=== PATIENT | female | born 1950 | race Caucasian/White ===

== ENCOUNTER → 2019-12-23 12:00 | Outpatient (CLI) | payer MEDICARE, BC, SELFPAY ==
--- NOTE | 2019-12-23 15:54 | STRESSREP ---
Stress Test Report Stress test report: Resting EKG: Normal sinus rhythm, normal axis, normal intervals, subtle inferior ST segment flattening. Treadmill EKG: The patient exercised according to Elmo protocol for 2 minutes and 45 seconds achieving a maximum workload of 4.60 METS. The resting heart rate was initially 62 beats a minute and dina to maximum of 115 beats a minute which is 75% of the maximal age rate and heart rate. Resting blood pressure was 142/96, and dina to a maximum of 200/98. Test was terminated due to extreme tremors, dizziness, lightheadedness and dyspnea. During exercise the patient's heart rate increased as expected. The patient had subtle upsloping ST segment depression which did not appear to reach criteria for ischemia. No arrhythmias noted. Conclusions normal, submaximal, treadmill EKG. Negative for ischemia by EKG criteria. No anginal symptoms noted. No arrhythmias noted. Hypertensive blood pressure response to exercise. Poor exercise capacity for age. Patient tolerated procedure well. No complications.
== END ==
PROVIDERS: PCP Family Medicine; Referring Provider Family Medicine; Visit Provider Family Medicine
DX: R07.89 Other chest pain (principal)
CPT/HCPCS: 93017

== ENCOUNTER → 2022-01-30 12:38 | Outpatient (CLI) | payer MEDICARE, BC, SELFPAY ==
--- NOTE | 2022-01-30 15:49 | ST.MBS ---
Modified Barium Swallow - Patient Information Study Date: 01/30/22 Study Time: 13:00 Direct Billable Minutes: 95 Total Minutes procedure & reportin Diagnosis: Parkinson's disease (G20) Referring Physician: Ruby Chow Dr. Reason for Referral: Objectively assess swallow function, risk for aspiration, and determine recommendations for least restrictive diet textures and compensatory strategies to improve safety of swallow. Medical History: The patient is a 71 year old female with PMH history including Parkinson's (diagnosed ~3-4 years ago), Dyslipidemia, GERD without esophagitis, Hypertension (SEE H&P for full PMH). She also reports recent falls, which resulted in her hitting the back of her head without loss of consciousness. The patient had BSE completed at [facility] 01/16/2022 recommending MBS study to objectively assess swallow function and aspiraiton risk. She currently consumes soft solids and thin liquids with reports for choking/coughing episodes with solids, which at times has resulted in emesis. She has not required the Heimlich maneuver in the past. She consumes thin liquids with intermittent coughing, as well. The patient's sister, Moo, was present for evaluation. Current Diet Ordered: Soft solids / Thin liquids Dentition: Upper Dentures, Lower Dentures Mental Status: WNL Respiratory Status: Oxygenating on Room Air - Penetration-Aspiration Scale Penetration-Aspiration Scale: OBJECTIVE ASSESSMENT OF SWALLOW FUNCTION (QUANTITATIVE ? PER TRIAL): PENETRATION / ASPIRATION SCALE (HUTTON): 1 = does not enter airway 2 = enters airway/above vocal folds/ejected 3 = enters airway/above vocal folds/not ejected 4 = enters airway/contacts vocal folds/ejected 5 = enters airway/contacts vocal folds/not ejected 6 = enters airway/below vocal folds/ejected 7 = enters airway/below vocal folds/not ejected despite effort 8 = enters airway/below vocal folds/no effort VIDEOFLOROSCOPIC SCALE SCORE (HUTTON): Grade I = aspiration of material that has penetrated into the laryngeal vestibule, intact cough reflex Grade II = aspiration < 10 % of the bolus, intact cough reflex Grade III = aspiration of < 10 % of the bolus, reduced cough reflex or aspiration of > 10 % of the bolus, intact cough reflex Grade IV = aspiration of > 10 % of the bolus, reduced cough reflex - Penetration-Aspiration Scale Score Thin Liquid via teaspoon Result: 1= does not enter airway Thin Liquid via teaspoon Trial 2 Result: 1= does not enter airway Thin Liquid via sequential sips from cup Result: 1= does not enter airway [place] Thick Liquid via sequential sips from cup Result: 1= does not enter airway Honey Thick Liquid via small single sip from cup Result: 1= does not enter airway Pudding with esophageal screen Result: 1= does not enter airway Cookie Result: 1= does not enter airway Thin Liquid via single sip from straw Result: 5= enters airways/contacts vocal folds/not ejected Thin Liquid via sequential sips from straw Result: 5= enters airways/contacts vocal folds/not ejected Thin Liquid via small single sip from cup Result: 1= does not enter airway Thin Liquid via small single sip from cup Trial 2 Result: 1= does not enter airway - Oral Phase Labial Seal: No Labial Escape Tongue Control During Bolus Hold: Posterior escape of less than half of bolus Bolus Preparation/Mastication: Disorganized chewing/mashing with solid pieces of bolus unchewed Bolus Transport/Lingual Motion: Slowed tongue motion Oral Residue: Trace residue lining oral structures - Pharyngeal Phase Initiation of Pharyngeal Swallow: Bolus head in pyriforms Soft Palate Elevation: No bolus between soft palate and pharyngeal wall Laryngeal Elevation: Partial superior movement thyroid cart/partial apprx aryt-epig petiole Anterior Hyoid Excursion: Partial anterior movement Epiglottic Movement: Partial inversion Laryngeal Vestibule Closure at Height of Swallow: Incomplete; narrow column of air/contrast in laryngeal vestibule Pharyngeal Stripping Wave: Present - complete Pharyngoesophageal Segment Opening: Parital distension and partial duration; parital obstruction of flow Tongue Base Retraction: Wide column of contrast between tongue base & post. pharyngeal wall Pharyngeal Residue: Collection of residue within or on pharyngeal structures - Esophageal Phase Esophageal Clearance: Esophageal retention w/ retrograde flow below pharyngoesophageal seg. - Majority of the bolus cleared esophagus - min retention in upper esophagus with retrograde flow just below upper esophageal sphincter. - Diagnosis/Impression Diagnosis: Mild oropharyngeal phase dysphagia (R13.12) Impression: The oral phase is primarily marked by decreased mastication, decreased bolus control, and slowed A-P transport. She required prolonged mastication with posterior loss of cookie bolus to the vallecula. With certain trials of thin liquids, the pt demonstrated posterior loss of bolus to the pyriforms, resulting in suboptimal bolus placement upon swallow onset. The pharyngeal phase is primarily marked by decreased airway closure due to decreased laryngeal elevation and anterior hyoid excursion. She also has decreased tongue base retraction with resulting residue in the vallecula after the swallow. With sips via straw, the patient demonstrated laryngeal penetration of contrast to the vocal folds that did not fully eject. Although no aspiration was noted on the exam, the patient is at increased risk for post prandial aspiration of contrast remaining in the laryngeal vestibule. She also is at increased risk for choking and aspiration with solid textures due to impaired mastication. Min retention of contrast in the upper esophagus with retrograde flow below UES. Majority of bolus demonstrated timely esophageal clearance. - Recommendations Diet: Thin Liquids - Soft and Bite Size Textures (IDDSI Level 6) Compensatory Strategies: Small Bites, Small Sips, No Straws, Slow Rate - Sips one at a time, Sitting upright, Remain sitting upright for 30 minutes after PO intake, Minimize/decrease distractions - Wait to speak until after completing each bite/sip, Assist with verbal cues to use recommended strategies Recommend Repeat Modified Barium Swallow: TBD Need for Skilled Speech Therapy Services: Yes Comment: Will recommend the patient for outpatient dysphagia therapy to address deficits in oropharyngeal swallow function. Would consider the patient for oropharyngeal strengthening to improve mastication, tongue base retraction, laryngeal elevation, and hyoid excursion (Consider use of Silvina, tongue retraction, Felipe, effortful swallows, CTAR). The patient would benefit from thorough education regarding diet recommendations and recommended compensatory strategies. Education Completed: 1. Described result of evaluation. - Discussed results of the study via review of images and handout for soft and bite size textures testing and preparation. Education well received by pt's sister, Moo. The patient would benefit from continued education., 4. Family/caregivers understand evaluation & agree w/ goals & tx plan., 7. Pt requires further education on strategies & risks. - Status Active ST Patient: Active - Contact Information [facility] Speech Therapy:: Kathy Leung M.A. [facility] Speech-Language Pathologist [facility] [address] [place] [address] [email or web address] [phone] 01/30/22 16:17
== END ==
PROVIDERS: PCP Family Medicine
DX: R13.10 Dysphagia, unspecified (principal)
CPT/HCPCS: 74230; 92611

== ENCOUNTER 2022-03-28 13:00 | Outpatient (RCR) | payer MEDICARE, BC, SELFPAY ==
--- NOTE | 2022-01-16 15:24 | HP.SP.AD ---
History - History Date of Eval: 01/15/22 Medical Diagnosis (from RX): Parkinson's Disease Date of Onset of Diagnosis: 2013 Previous speech therapy: No Other Relevant Medical History/Diagnoses/Surgery: Depressive Disorder, Chronic Insomia, poor short term memory. Patient fell and hit her head twice April 2021 with no visit to the hospital. Medications related to this diagnosis: benztropine, gabapentin, aspirin, citalopram, omeprazole, rasagiline, simvastatin, valsartan Smoking Status: Never smoker Hx Smoking: No Hx Tobacco Use: No - Pain Is pain an issue with your current prescribed condition?: No - Personal Occupation: Retired Visual Assistive Devices: Glasses Patients Living Arrangements: Alone Patient Allergies - Allergies Allergies codeine Adverse Reaction (Verified 07/20/16 16:49) CRAZY DREAMS DOES NOT LIKE TO TAKE IT Subjective Oral Motor - Subjective Dentures ill fitting: No Objective Oral Motor - Oral Status Dentition: Upper Dentures, Lower Dentures - Labial Impairment: Mild Observation at Rest: WNL Closure: WNL Pucker: Mild Retraction: Mild Alternating Pucker/Retraction: Mild Involuntary Movement noted: No - Lingual Involuntary Movement: No - Lingual Comments Comments: Tongue deviates mild to the left. - Jaw Impairment: WNL Involuntary Movement: No - Respiratory Status Respiratory Status: Room Air Subjective Dysphagia - Symptoms Reported Symptoms/Problems with: Coughing, Choking, Difficulty Swallowing Solids, Difficulty Swallowing Liquids, Difficulty Swallowing Pills, Xerostomia - Current Diet Solids Current Diet: Soft - Current Diet Liquids Current Liquids: Thin Objective Dysphagia - Administered by Administered by: Self - Thin Liquids Administred via: Cup Symptoms: Throat Clearing, Immediate Oral Holding: No Patient Report: Patient reported on last drink of sequential drinks she felt like she needed to clear her throat. Later, she took another drink and cleared her throat several times. Comments: Patient reported that coughing is intermittent with liquids. - Results Swallowing Diagnosis: Dysphagia Unspecified Subjective Clinical Impression - Adult Clinical Impression Voice deterioration: reduction of volume or vocal quality with prolonged use: Present - Non-Phonatory Behaviors/Respiration Reduced loudness or vocal weakness: Present Limited breath support for speech: Present Plan - Plan Plan: Swallowing therapy is recommended due to dysphagia following Modified barium swallow study. - Recommendations MBS: Yes Treatment Warranted: Yes - Frequency Frequency: 1x/Week Duration: 2 Months Visits in this POC: 8 - Prognosis Prognosis: Good - Goals that are Established: Determination:: Goals will be added/modified as deemed necessary and appropriate. Therapy will be discontinued when results of re-evaluation indicate therapy is no longer needed or lack of progress has been documented. - Goal #1-5 Goal #1: The Patient will tolerate the least restrictive means of nutrition to facilitate adequate hydration/nutrition with optimum safety and efficiency of swallowing function during P.O. intake without overt signs and symptoms of aspiration. Goal #2: The Patient will demonstrate and utilize recommended velopharyngeal and oropharyngeal strengthening exercises to facilitate improved velopharyngeal and oropharyngeal strength and coordination with minimal cueing and prompting provide by the clinician, across 3 to 3 sessions. Goal #3: Voice/dysarthria evaluation. Education - Patient has Indicated that the Following Identified Educational Needs: Cognitively Impaired - Patient Instruction Patient Education: Diagnosis, Treatment Plan, Goals Person Taught: Patient, Family Teaching Method: Discussion Response to teaching: Verbalize understanding, Reinforcement needed
--- NOTE | 2022-06-19 14:44 | HP.SP.DC_ITS ---
ST Discharge Summary - Discharged: Discharge: Erika Sheffield is discharged from speech therapy at [facility] as of March 28, 2022. She was treated for a total of 10 visits with her initial evaluation on 01/15/22. The focus of therapy was on increasing vocal loudness and dysphagia treatment. She increased her vocal loudness to 67dB with no cues in conversation. This is a functional volume for the patient. She was aware that she needed to be louder in noisy situations. Patient was on thin liquids with small sips recommended. When she followed her strategies then she had no overt s/s of penetration or aspiration. The patient was provided with handouts and a home exercise program for both volume and swallowing exercises. Thank you for allowing me to participate in the treatment of this patient.
== END 2022-03-28 19:00 | disposition home or self-care (01) ==
LOC: SP 13:00
PROVIDERS: PCP Family Medicine
DX: R13.12 Dysphagia, oropharyngeal phase (principal); G20 Parkinson's disease
CPT/HCPCS: 92507; 92526; 92610

== ENCOUNTER 2023-01-29 12:00 | Outpatient (RCR) | payer MEDICARE, BC, SELFPAY ==
--- NOTE | 2023-01-01 12:40 | HP.PTEVAL_ITS ---
Patient's Visit Information PRASHANT HAYES is a 72 year old F referred to Physical Therapy by Dr. Brandan Manzo MD with a diagnosis of Parkinson's Disease. Date of Evaluation: 01/01/23 Physical Therapist: DORIAN Amezquita - Visit Plan Frequency: 2x /Week Duration: 2 Months Plan: 2X/ week for 8 weeks for gait training, balance activites, postural activities, Dual tasking, endurance activities, heel and toe raise strength, functional transfers with HEP - Subjective She has PD for the last 7-8 years. She feels that she has weakness from the knees down. She feels like her legs feel weak if she walks a little ways. She has been doing exercises twice a week at [facility]. Her sister is present with her. She has weakness in her legs and hands and her posture. She has had several falls within her apartment and has been managed to get up. She cracked her head the last time and layed there a little longer. She wants to get a Life alert. She turned around the corner and slipped in her sock feet about a week or so ago. She has a little trouble getting some commodes or a recliner. Somedays she can do well and other days not so good. She does drive still but limited distances. Sister reports that she has a slight stutter when turning. Bed positioning is a struggle. She has a lot of clutter in her home and sister is working on [employer]. Stomach was bothering her a little today. Her neck seems to be stiff daily. She has no steps into her apartment. She goes up the step recip stair at home with a railing and her sister watches with her. She pushes a cart in the grocery store. She has a script for a rollator but is being stubborn with getting that. She is starting some hallucinations of shadow people. - Objective Gait: walks with decrease stride length and short steppage gait, flexed trunk, no arm swing, no heel to toe gait pattern, and flexed knees. Standing heel and toe raises: Pt is unable to heel and toe rise without UE support. She struggles with toe raises. Pt struggles with walking with heel to toe gait pattern and walking backwards. LE MMT: R hip flex 7.7 and L hip flex 6.4. R knee ext 14.7 and L knee ext 16.7. R knee flex 11.5 and L knee flex 8.5. TU.3 seconds. FGA: 7. Sit to stand: Pt is able to stand without using her arms to stand on first attempt but she does not weight shift fw well. Tight heel cords, hamstrings and hip flexors. Pt is able to go from sit to supine and vice versa without any assistance - Balance/Special Test Scores Functional Gait Assessment Score: 7 % Disability: 76.6700 Lower Extremity Functional Score: 25 - Goals Goal 1:: I HEP Goal Time Frame: 6-8 Weeks Goal 2:: Decrease fall risk by increasing FGA score (score was 7 at eval). Goal Time Frame: 6-8 Weeks Goal 3:: Walk with more upright posture and more heel to toe gait pattern Goal Time Frame: 6-8 Weeks Goal 4:: Increase balance by decreasing TUG time (TUG time at the eval was 27.3 seconds) Goal Time Frame: 6-8 Weeks - Rehabilitation Potential Rehabilitation Potential: Good - Anticipated Interventions Patient/Client Instruction: Educate patient on: Condition, Plan of Care For the Purpose of:: To decrease pain, To increase ROM, To improve nutrient delivery to tissue, To improve muscle performance and motor function, To improve ability to perform ADL's, To increase tolerance to activity/condition/position, To improve performance and independence with ADL's, To decrease level of supervision to perform tasks, To improve gait and locomotor functions, To improve health of tissue, To decrease soft tissue restriction, To increase f lexibility/ROM, To improve endurance, To improve balance, To improve safety with gait Therapeutic Exercise to Include: Strength training, Endurance training, Balance training, Body mechanics, Postural training, Flexibilty training, Gait and locomotor training, Neuromotor development, Active ROM, Dynamic Lumbar Stabilization For the Purpose of:: To increase ROM, To improve nutrient delivery to tissue, To improve muscle performance and motor function, To improve ability to perform ADL's, To increase tolerance to activity/condition/position, To improve performance and independence with ADL's, To decrease level of supervision to perform tasks, To improve ability of physical actions for home/community/work/leisure, To improve gait and locomotor functions, To improve health of tissue, To decrease soft tissue restriction, To increase flexibility/ROM, To improve endurance, To improve balance, To improve safety with gait Functional Training to Include: Gait training For the Purpose of:: To improve gait and locomotor functions, To improve safety with gait Manual Therapy Techniques to Include: Passive ROM For the Purpose of:: To increase ROM Thank you for the opportunity to evaluate your patient. For Medicare and Medicare HMO plans, please review the plan of care and approve it. It will need to be FAXED BACK to us at [phone] for Medicare purposes. For Medicare only, by signing this I certify the plan of care. Please let me know if there are questions or concerns regarding this plan of care. Physician Signature: Date:
--- NOTE | 2023-01-29 13:06 | HP.PTDCSUM_ITS ---
It has been my pleasure to treat PRASHANT HAYES referred by Dr. Brandan Manzo MD, with the diagnosis of Parkinson's Disease for a total of 6 visit(s). Discharge Date: 01/29/23 Please see the following information for a summary of their discharge status. Subjective: Pt feels that therapy has helped in her walking and she reports that she is taking longer strides. She reports that she needs to stand up straighter. Sister feels that she can help her sister at home at this time % Improvement: 60 Objective/Function: FGA 9. Gait: walks with shuffled gait and does not take big steps. Would feel better if she would use the walker at all times especially when go out. VC's needed to take big steps. TUG 24.3 Goal 1:: I HEP Goal Progress: Progressing Goal 2:: Decrease fall risk by increasing FGA score (score was 7 at [facility]). Goal Progress: Goal Met Goal 3:: Walk with more upright posture and more heel to toe gait pattern Goal Progress: Progressing Goal 4:: Increase balance by decreasing TUG time (TUG time at the [facility] was 27.3 seconds) Goal Progress: Goal Met Plan: DC PT to I HEP and PD class elsewhere and sister will help with HEP and stretching at home Discharge Comments: DC PT to PD class elsewhere and sister to help at home with HEP If there are questions or concerns regarding this patient's physical therapy, please feel free to call me at [phone]. Thank you for the referral of this patient. Sincerely, Nicole Yanes, MPT Balance/Gait/Functional tests - Balance/Special Test Scores Functional Gait Assessment Score: 9 % Disability: 70.0000 Lower Extremity Functional Score: 43
== END 2023-01-29 19:00 | disposition home or self-care (01) ==
LOC: PT 12:00
PROVIDERS: PCP Family Medicine; Referring Provider Psychiatry & Neurology Neurology; Visit Provider Psychiatry & Neurology Neurology
DX: G20 Parkinson's disease (principal)
CPT/HCPCS: 97110; 97116; 97162; 97530

== ENCOUNTER 2023-07-28 09:29 | Emergency (ER) | payer MEDICARE, BC, SELFPAY ==
[2023-07-28 09:30] VITALS: BP 141/65; PULSE 63; RESP 16; TEMP 36.3; O2SAT 100
--- NOTE | 2023-07-28 09:54 | CT_ITS ---
INDICATION: Trauma EXAMINATION: CT CERVICAL SPINE - CT Spine Cervical W/O Contrast Injection TECHNIQUE: Helically acquired images were obtained of the cervical spine. 2D reformatted images were reviewed. A radiation dose optimization technique was used for this scan. IV Contrast dosage and agent: None. RADIATION DOSAGE (If Supplied By Facility): CTDIvol = ( 11.89 ) mGy, DLP = ( 245.67 ) mGycm COMPARISON: Prior study dated: MRA of the neck dated July 20, 2016 FINDINGS: VERTEBRAE: No fracture or traumatic subluxation. No discrete lytic or blastic abnormality. There is loss of the normal cervical lordosis. There is a retrolisthesis of C4 on C5 by 2.3 mm. There is multilevel endplate spondylosis and facet hypertrophy. Normal craniocervical junction and cervicothoracic junction. DISCS and SPINAL CANAL: There is multilevel degenerative disc disease associated with stenosis of the central canal at C4-C5 and C5-C6. NECK SOFT TISSUES: No prevertebral soft tissue swelling. There is no cervical adenopathy. LUNG APICES: Clear. CT/Spine Cervical without Contras IMPRESSION: Multilevel degenerative disc disease associated with stenosis of the central canal at C4-C5 and C5-C6. Electronically Signed: Grace Donohue MD at 10:56 EDT ,
--- NOTE | 2023-07-28 09:54 | CT_ITS ---
INDICATION: Trauma EXAMINATION: CT BRAIN - CT Head or Brain W/O Contrast Injection TECHNIQUE: Multiple axial images were obtained of the head without intravenous contrast. A radiation dose optimization technique was used for this scan. IV Contrast dosage and agent: None. RADIATION DOSAGE (If Supplied By Facility): CTDIvol = ( 44.99 ) mGy, DLP = ( 745.49 ) mGycm COMPARISON: Prior study dated: July 20, 2016 FINDINGS: BRAIN PARENCHYMA: No intra- or extra-axial hemorrhage. No evidence of acute infarct. No intracranial mass or mass effect. There is preservation of the fernandez/white matter interface. Posterior fossa structures are unremarkable. CSF SPACES: Appropriate for age. No hydrocephalus. Basal cisterns are patent. CALVARIUM, SKULL BASE, PARANASAL SINUSES AND MASTOID AIR CELLS: There is partial visualization of a low-attenuation focus within the visualized left maxillary sinus which may reflect a mucous retention cyst or polyp. No discrete lytic or blastic abnormalities. There are soft tissue defects overlying the left frontal calvarium consistent with lacerations from recent trauma. ORBITS: Both globes, extraocular muscles, optic nerves and retrobulbar fat appear unremarkable. ASPECTS Score for Acute Strokes: 10 CT/Brain/Head without Contrast IMPRESSION: No acute intracranial process. Electronically Signed: Grace Donohue MD at 10:42 EDT ,
--- NOTE | 2023-07-28 09:54 | EKG12_ITS ---
Test Reason : FALL Blood Pressure : / mmHG Vent. Rate : 063 BPM Atrial Rate : 063 BPM P-R Int : 106 ms QRS Dur : 084 ms QT Int : 414 ms P-R-T Axes : 067 063 054 degrees QTc Int : 423 ms Sinus rhythm with short MD Nonspecific T wave abnormality Abnormal ECG Confirmed by FRED MEDEROS, YASIR ([id number]), editor publications TAL JENKINS ([id number]) on 08/05/2023 7:30:10 AM Referred By: FALL Confirmed By:YASIR IBARRA MD
--- NOTE | 2023-07-28 09:57 | EDS_ITS ---
HPI HPI - Fall History of Present Illness Chief Complaint: Fall Informant: patient and family Narrative Narrative: Patient had a fall earlier this morning at home. Patient states she got up to go the bathroom. She fell walking in the bathroom. She states for the last year or so she has been having problems falling. This is her second fall in the last month or 2. She states she just seems to lose her balance and fall. She does have Parkinson's. This has been a slow progressive problem. They are trying to adjust medications. She feels at her baseline. Her family states she is normal right now. She did not pass out. She states the only spot that sore is the top of her head now. She is not on blood thinners except for baby aspirin. [facility] Medical History Parkinson disease Home Medications Omeprazole [Prilosec] 40 mg PO DAILY 07/20/16 [History Last Taken Unknown] benztropine 2 mg tablet 1 mg PO BID 07/20/16 [History Last Taken Unknown] citalopram 40 mg tablet 40 mg PO DAILY 07/20/16 [History Last Taken Unknown] diphenhydramine 25 mg-acetaminophen 500 mg tablet (Tylenol PM Extra Strength) 1 ea PO QHS PRN Sleep 07/20/16 [History Last Taken Unknown] losartan 100 mg tablet 100 mg PO DAILY 07/20/16 [History Last Taken Unknown] simvastatin 20 mg tablet 20 mg PO QHS 07/20/16 [History Last Taken Unknown] amoxicillin 500 mg-potassium clavulanate 125 mg tablet 500 mg (0.8 x 500-125 mg) PO Q12H ##10 07/21/16 [Rx Last Taken Unknown] aspirin 81 mg chewable tablet 81 mg PO DAILY@0800 07/21/16 [Rx Last Taken Unknown] cephalexin 500 mg capsule 500 mg PO TID #15 caps 07/28/23 [Rx Last Taken Unknown] Allergy/AdvReac Type Severity Reaction Status Date / Time codeine AdvReac ANALIY Verified 07/28/23 09:29 DREAMS DOES NOT LIKE TO TAKE IT Social History Smoking Status: Never smoker ROS ROS ED ROS Narrative A complete review of systems was performed and is negative except as documented in the history of present illness. Some specific details below. Constitutional: No recent fevers or chills. No malaise. She has been feeling normally recently. EYE: No discharge, visual complaints, or pain. ENT: Pain in the top of her head. She has a large laceration on her scalp. No active bleeding now. No difficulty swallowing. No swelling. No pain. No reflux symptoms. CV: No palpitations. No chest pain. She was not actually syncopal. She never passed out. Respiratory: No chest pain or shortness of breath. No coughing. GI: No abdominal pain. No nausea vomiting diarrhea. No blood in stool. : No frequency dysuria or hematuria. Musculoskeletal: Despite the fall, she states her arms and legs do not hurt. She has no neck back or pelvic area pain. Skin: Large laceration anterior scalp. Neuro: No focal weakness or numbness. Endocrine: No polyuria or polydipsia. EXAM Physical Exam Narrative Exam Narrative: CONSTITUTIONAL: Patient is nontoxic in appearance. The patient looks comfortable. Work of breathing looks normal. HEENT: Large curvilinear laceration on the anterior part of the scalp midline and curving towards the left. No active bleeding. EYES: No conjunctival injection. No proptosis. NECK:No JVD. No stridor. CARDIOVASCULAR: Regular rate. Regular rhythm. No notable murmur. No JVD. RESPIRATORY: No respiratory distress. Breathing is unlabored. No wheezes. No rhonchi. No rales. No pain with a deep breath. No chest wall tenderness. No subcu air. GASTROINTESTINAL: Not distended. Bowel sounds are normal. No tenderness. No guarding. No rebound. No palpable mass. No bruit is heard. GENITOURINARY: No tenderness over the bladder. No CVA tenderness. MUSCULOSKELETAL: Atraumatic except for minimal old bruising the anterior knees. But they are not tender.. No peripheral edema. No cord. No tenderness along the deep venous system. No asymmetry. No distended veins. NEUROLOGICAL: Patient is alert and appropriate. No focal deficit noted. SKIN: No rash or pallor. PSYCHIATRIC: Patient is calm. Mood is appropriate. Const Vital Signs: 07/28/23 09:30 07/28/23 12:38 Temperature 97.3 F L Temperature Source Temporal Pulse Rate 63 62 Respiratory Rate 16 15 Blood Pressure 141/65 H 124/77 H Blood Pressure Mean 90 Pulse Ox 100 98 Oxygen Delivery Method Room Air MDM MDM MDM Narrative Medical decision making narrative: Patient CBC shows mild anemia. Patient's electrolytes show no acute abnormalities. Minimal elevation of creatinine to 1.19. Glucose is minimally up at 108. My independent evaluation and interpretation of the patient T head neck showed no fracture or acute intracranial bleed. Final reading is similar but does show chronic changes. We got the patient up and walked. She did quite well. Her sister was going to stay with her for a few days. Procedure: Suture laceration: We cleansed the forehead and cleaned with alcohol. I did supraorbital nerve block that provided excellent anesthesia to the patient. Just the posterior aspect of the wound I had to touch. Total length of the wound was 12 cm. I copiously scrubbed and irrigated this area I lifted up the flap and scrubbed and irrigated under it. Ice and quite a bit of time pulling any hair clot or foreign material out. I found no actual foreign bodies but just a hair. But we irrigated and cleaned this multiple times and pulled the hair to the side till it got clean. I then put a single 4 oh stitch in the midpoint of this wound to hold it together in a line. I then p laced abe from each end. We used a total of 16 abe and the original stitch was removed. She tolerated this well and it was actually closed with good cosmesis and hemostasis. Because of the amount of tissue injury, size of the laceration, period of time being open I will place her on a short course of antibiotics and we discussed reasons to return and signs of infection. Lab Data Attestation: I reviewed the patient's lab results. Labs: Laboratory Results - last 24 hr 07/28/23 10:00 WBC 8.1 RBC 3.79 L Hgb 10.7 L Hct 34.0 L MCV 89.7 MCH 28.2 MCHC 31.5 L RDW Std Deviation 45.0 H RDW Coeff of Addie 13.7 Plt Count 234 MPV 11.1 Immature Gran % (Auto) 0.200 Neut % (Auto) 62.2 Lymph % (Auto) 26.0 Rhea % (Auto) 9.8 Eos % (Auto) 1.4 Baso % (Auto) 0.4 Absolute Neuts (auto) 5.0 Absolute Lymphs (auto) 2.09 Nucleated RBC % 0 Sodium 137 Potassium 4.0 Chloride 107 Carbon Dioxide 27.0 Anion Gap 3 L BUN 24 H Creatinine 1.19 H Est GFR (MDRD) Af Amer 57 L Est GFR (MDRD) Non-Af 47 L BUN/Creatinine Ratio 20.2 H Glucose 108 H Calcium 9.4 Radiography Diagnostic Testing: Clinical Impression(s) from Imaging Studies Brain CT 07/28/23 09:54 IMPRESSION: No acute intracranial process. Electronically Signed: Grace Donohue MD at 10:42 EDT , Cervical Spine CT 07/28/23 09:54 IMPRESSION: Multilevel degenerative disc disease associated with stenosis of the central canal at C4-C5 and C5-C6. Electronically Signed: Grace Donohue MD at 10:56 EDT , Discharge Plan Triage Chief Complaint: Fall ED Provider: Milton Iglesias Dx/Rx/DC Orders Clinical Impression: Sutured skin wound, Hx of Parkinson's disease, Fall at home, Complex laceration of scalp Instructions: ED Head Injury (Adult), ED Laceration Scalp Stitches or Abe Prescriptions: New cephalexin 500 mg capsule 500 mg PO TID Qty: 15 0RF No Action citalopram 40 MG tablet 40 mg PO DAILY Patient Comments: ANXIETY/DEPRESSION simvastatin 20 MG tablet 20 mg PO QHS Patient Comments: CHOLESTEROL benztropine 2 MG tablet 1 mg PO BID Patient Comments: PARKINSONS diphenhydramine-acetaminophen [Tylenol PM Extra Strength] 1 EACH tablet 1 ea PO QHS PRN (Reason: Sleep) Patient Comments: SLEEP losartan 100 MG tablet 100 mg PO DAILY Patient Comments: HYPERTENSION Omeprazole [Prilosec] 40 MG capsule 40 mg PO DAILY Patient Comments: GERD aspirin 81 MG tablet,chewable 81 mg PO DAILY@0800 0RF amoxicillin-pot clavulanate 500 MG tablet 500 mg PO Q12H Qty: 10 0RF Primary Care Provider: Ez Garcia Referrals: Ez Garcia MD [Primary Care Provider] - 7 Days for suture removal Disposition Disposition: Home, Self Care Discharge Date/Time: 07/28/23 12:39
[2023-07-28 10:10] LABS: Absolute Lymphocyte Count 2.09 X10^3/uL (0.83-4.51); Basophil# 0.03 X10^3/uL; Basophil% 0.4 % (0-1); Eosinophil# 0.11 X10^3/uL; Eosinophils% 1.4 % (0-5); Hemoglobin 10.7 g/dL (12.0-15.0); Lymphocyte # 2.09 X10^3/ul (0.83-4.51); Mean Corp Hgb Conc 31.5 g/dL (32-36); Mean Corpuscular Hgb 28.2 pg (27.0-32.0); Mean Corpuscular Volume 89.7 fL (81-99); Mean Platelet Vol. 11.1 fl (6.2-12.0); Monocyte# 0.79 X10^3/uL; Monocyte% 9.8 % (0-10); NRBC Flagged by Analyzer 0 % (0-5); Neutrophil # 5.01 X10^3/uL (2.7-7.7); Neutrophil % 62.2 % (47-70); Platelet Count 234 K/mm3 (150-450); RBC Distribution Width CV 13.7 % (11.6-14.6); Red Blood Count 3.79 M/mm3 (4.2-5.4); White Blood Count 8.1 K/mm3 (4.4-11.0)
[2023-07-28] MEDS: Lidocaine 1% /Epi 1:100 (20ml) 20 ML Vial INFILT (10:11)
[2023-07-28] MEDS: Bupivacaine Mpf 0.5% 30 ML VIAL INFILT (10:11)
[2023-07-28 10:29] LABS: Anion Gap 3 (5-15); BUN 24 mg/dL (7-18); BUN/Creat Ratio 20.2 RATIO (10-20); Calcium,Total 9.4 mg/dL (8.5-10.1); Chloride 107 mmol/L (98-107); Creatinine, Serum 1.19 mg/dL (0.55-1.02); EST Glomerular Filtration Rate 47 mL/min (>60); Est Glom Filt Rate - Afr Amer 57 mL/min (>60); Glucose 108 mg/dL (74-106); Sodium Level 137 mmol/L (136-145)
[2023-07-28 11:52] VITALS: O2SAT 98
--- NOTE | 2023-07-28 11:53 | ED.RN ---
pt has parkinsons, she shuffles when she walks.
[2023-07-28 12:38] VITALS: BP 124/77; PULSE 62; RESP 15; O2SAT 98; BMI 23.1
== END 2023-07-28 12:39 | disposition home or self-care (01) ==
PROVIDERS: Emergency Provider Emergency Medicine; PCP Family Medicine; Visit Provider Emergency Medicine
DX: S01.01XA Laceration without foreign body of scalp, initial encounter (principal); G20 Parkinson's disease; W19.XXXA Unspecified fall, initial encounter
CPT/HCPCS: 13121; 13122; 70450; 72125; 80048; 85025; 93005; 99284; A4216

== ENCOUNTER 2023-08-01 16:49 | Inpatient (IN) | payer MEDICARE, BC, SELFPAY ==
[2023-08-01] VITALS (9 sets, daily range): BP systolic 137–174; BP diastolic 66–90; PULSE 72–102; RESP 14–18; TEMP 36.1–37.3; O2SAT 96–100; BMI 24.8; BMI 25.0
--- NOTE | 2023-08-01 17:02 | CT_ITS ---
INDICATION: pain EXAMINATION: CT ABDOMEN AND PELVIS WITHOUT CONTRAST - CT Abdomen And Pelvis W/O Contrast Injection TECHNIQUE: Helically acquired images were obtained of the abdomen and pelvis without oral or IV contrast. A radiation dose optimization technique was used for this scan. IV Contrast dosage and agent: None. Oral contrast: None. RADIATION DOSAGE (If Supplied By Facility): CTDIvol = ( 6.44 ) mGy, DLP = ( 289.55 ) mGycm COMPARISON: No relevant prior comparison study available FINDINGS: LOWER CHEST: Lung bases are clear. No cardiomegaly or pericardial effusion. The lack of intravenous contrast limits evaluation of solid visceral organs. LIVER: Homogeneous. No focal mass. GALLBLADDER AND BILIARY TREE: No calcified gallstones. No gallbladder distension or wall edema. No intra- or extrahepatic biliary ductal dilation. PANCREAS: No focal cystic or solid mass. SPLEEN: Normal size without focal cystic or solid mass. ADRENAL GLANDS: No nodules. KIDNEYS AND URETERS: Normal renal size and position. No hydronephrosis. PERITONEUM: No ascites or free air. No other fluid collection. BOWEL: There is a moderate amount of stool throughout the colon. There appears to be swirling of the mesentery within the right lower abdomen. There is a dilated loop of bowel within the mid/lower abdomen that appears be arising from the right lower quadrant. There are prominent fluid-filled loops of bowel within the mid and lower abdomen. LYMPH NODES: No enlarged mesenteric or retroperitoneal lymph nodes. VESSELS: Aorta is non-dilated. URINARY BLADDER: Unremarkable. REPRODUCTIVE ORGANS: No pelvic masses. ABDOMINAL WALL: No discrete abdominal or pelvic wall hernia. BONES: There are degenerative changes of the lumbar spine. 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 Moderate amount of stool throughout the colon. Electronically Signed: Grace Donohue MD at 17:47 EDT ,
--- NOTE | 2023-08-01 17:03 | EDS_ITS ---
HPI History of Present Illness Chief Complaint: Nausea/Vomiting Informant: patient Narrative Narrative: -year-old sister generalized and abdominal pain vomiting since yesterday. No hematemesis. Total 4 times. No bowel movement for 5 days. Reports decreased flatus. Denies any abdominal surgery history. Was seen 5 days ago for mechanical fall scalp laceration with carmelina placed. No headache. Also started a new Parkinson's medicine of pramipexole on the second. Denies urinary symptoms. Denies fevers. Normal bowel movements daily versus every other day. [facility] Medical History Parkinson disease Home Medications benztropine 2 mg tablet 1 mg PO BID PARKINSONS 07/20/16 [History Last Taken 08/01/23] simvastatin 20 mg tablet 20 mg PO QHS CHOLESTEROL 07/20/16 [History Last Taken 07/31/23] cephalexin 500 mg capsule 500 mg PO TID ANTIBIOTIC #15 caps 07/28/23 [Rx Last Taken 07/31/23] alendronate 70 mg tablet 70 mg PO LEWIS OSTEOPEROSIS 08/01/23 [History Last Taken 07/28/23] aspirin 81 mg chewable tablet 81 mg PO DAILY HEART HEALTH 08/01/23 [History Last Taken 08/01/23] citalopram 10 mg tablet 10 mg PO DAILY DEPRESSION 08/01/23 [History Last Taken 08/01/23] citalopram 20 mg tablet 20 mg PO DAILY DEPRESSION 08/01/23 [History Last Taken 08/01/23] melatonin 5 mg tablet 10 mg PO QHS SLEEP 08/01/23 [History Last Taken 07/31/23] omeprazole 40 mg capsule,delayed release 40 mg PO DAILY ACID REFLUX 08/01/23 [History Last Taken 08/01/23] pramipexole 0.125 mg tablet 0.125 mg PO TID PARKINSONS 08/01/23 [History Last Taken 08/01/23] pramipexole 0.25 mg tablet 0.25 mg PO TID PAKINSONS 08/01/23 [History Last Taken Unknown] rasagiline 1 mg tablet 1 mg PO DAILY PARKINSONS 08/01/23 [History Last Taken 08/01/23] valsartan 160 mg tablet 160 mg PO DAILY BLOOD PRESSURE 08/01/23 [History Last Taken 08/01/23] Allergy/AdvReac Type Severity Reaction Status Date / Time codeine AdvReac CRAZY Verified 08/01/23 16:52 DREAMS DOES NOT LIKE TO TAKE IT Social History Smoking Status: Never smoker ROS ROS ED Constitutional Constitutional ED: Denies chills, fever(s) or sweats Eyes Eyes: Denies change in vision ENT ENT ED: Denies dysphagia or sore throat Cardiovascular Cardiovascular: Denies chest pain, leg edema, palpitations or racing heartbeat Respiratory/Chest Respiratory/Chest: Denies cough, dyspnea or dyspnea on exertion Gastrointestinal Gastrointestinal: Reports abdominal pain, constipation, nausea and vomiting; Denies diarrhea Genitourinary Genitourinary ED: Denies dysuria, hematuria or urinary frequency Musculoskeletal Musculoskeletal: Denies back pain, extremity pain or neck pain Integumentary Denies rash or wounds Neurologic Neurologic: Denies headache(s), paresthesias or weakness EXAM Physical Exam Const Vital Signs: 08/01/23 16:50 Temperature 96.9 F L Temperature Source Temporal Pulse Rate 78 Respiratory Rate 18 Blood Pressure 137/72 H Blood Pressure Mean 93 Pulse Ox 97 Oxygen Delivery Method Room Air Positive well nourished and well developed General Appearance ED: well developed and NAD HEENT HEENT Narrative: Mild dry mucosal membranes. Left frontal scalp with carmelina clean, dry, intact. normocephalic Eyes PERRL, EOMs intact bilaterally and conjunctivae normal General Eye ED: Yes normal appearance of both eyes Neck no lymphadenopathy and supple General: Negative for tenderness Chest Wall Chest: Negative for tenderness Resp normal respiratory effort and normal air movement Effort and Inspection: symmetric chest movement; Negative for respiratory distress Cardio regular rate, regular rhythm and no murmurs Peripheral Pulses: pulses 2+ throughout GI non-tender GI Narrative: Negative Kern's McBurney's tenderness. Nondistended. Auscultation: hypoactive bowel sounds Palpation: Negative for guarding or rebound tenderness present Back/Spine no CVA tenderness and no thoracic nor lumbar tenderness Extremity normal to inspection General Extremety ED: Negative for edema or tenderness General Extremity: Negative for edema Neuro oriented x3 and no sensory deficits noted Sensorium / Orientation: awake and alert Skin no rashes or lesions noted and no wounds MDM MDM MDM Narrative Medical decision making narrative: Interventions / MDM: Differential diagnosis: Bowel obstruction, volvulus Diagnosis considered but do not suspect: N/A My EKG interpretation: N/A Imaging independently reviewed and interpreted by myself: CT abdomen pelvis: Proximal obstruction, per radiology positive swirl sign concerning for cecal volvulus. KUB 1 view: NG in stomach. External documents reviewed: N/A Test considered but not ordered:N/A ED course: Patient nontoxic nonsurgical abdomen. Mild dry mucosal membranes with vomiting IV established abdominal labs ordered noncontrast CT scan with her vomiting and abdominal pain. Interim did evaluate her Parkinson's medication side effects does cause constipation. Normal labs stable white count 12.1. However CT scan with proximal bowel obstruction secondary to cecal volvulus concern. Coags added type and screen her last meal was this morning with small amount of cereal. 1800: I discussed with on-call surgeon Dr. Andre who evaluated the CT, request NG tube antibiotics to be started. Patient be seen in the surgery department by surgery for disposition. Patient seen by surgery, patient be taken to the OR from the emergency department. Re-evaluation: stable Disposition discussed with patient/family/significant other: Patient and sister Case discussed with consulting clinician: Surgeon This note was generated with [employer] dictation software. It may contain incorrect words, spelling, and punctuation that were not noted in checking the note before signing. Lab Data Attestation: I reviewed the patient's lab results. Labs: Laboratory Results - last 24 hr 08/01/23 08/01/23 17:10 18:14 WBC 12.1 H RBC 4.10 L Hgb 11.5 L Hct 36.4 L MCV 88.8 MCH 28.0 MCHC 31.6 L RDW Std Deviation 45.0 H RDW Coeff of Addie 13.8 Plt Count 261 MPV 11.4 Immature Gran % (Auto) 0.400 Neut % (Auto) 92.2 H Lymph % (Auto) 5.1 L [place] % (Auto) 2.1 Eos % (Auto) 0.0 Baso % (Auto) 0.2 Absolute Neuts (auto) 11.1 H Absolute Lymphs (auto) 0.61 L Nucleated RBC % 0 PT 14.0 INR 1.1 APTT 25.8 Sodium 136 Potassium 3.8 Chloride 105 Carbon Dioxide 25.0 Anion Gap 6 BUN 19 H Creatinine 1.14 H Est GFR (MDRD) Af Amer 60 Est GFR (MDRD) Non-Af 50 L BUN/Creatinine Ratio 16.7 Glucose 130 H Calcium 9.7 Total Bilirubin 0.50 AST 14 L ALT 25 Alkaline Phosphatase 79 Total Protein 7.5 Albumin 3.8 Globulin 3.7 Albumin/Globulin Ratio 1.0 Lipase 23 Radiography Diagnostic Testing: Clinical Impression(s) from Imaging Studies Abdomen/Pelvis CT 08/01/23 17:02 IMPRESSION: Dilated segment of bowel within the mid abdomen with associated swirling of the mesentery may be secondary to a cecal volvulus. Moderate amount of stool throughout the colon. Electronically Signed: Grace Donohue MD at 17:47 EDT , Discharge Plan Dx/Rx/DC Orders Clinical Impression: Cecal volvulus, Small bowel obstruction, Vomiting Disposition Disposition: Acute Care [facility]
[2023-08-01] MEDS: 0.9% Normal Saline (1000mL) 1,000 ML 1000 ML IV (17:11)
[2023-08-01] MEDS: Ondansetron 4 MG/2 ML Vial IV (17:13)
[2023-08-01 17:21] LABS: Absolute Lymphocyte Count 0.61 X10^3/uL (0.83-4.51); Absolute Neutrophil Count 11.1 X10^3/uL (2.0-7.7); Basophil# 0.02 X10^3/uL; Basophil% 0.2 % (0-1); Hematocrit 36.4 % (37-47); Hemoglobin 11.5 g/dL (12.0-15.0); Lymphocyte # 0.61 X10^3/ul (0.83-4.51); Lymphocyte % 5.1 % (19-41); Mean Corp Hgb Conc 31.6 g/dL (32-36); Mean Corpuscular Volume 88.8 fL (81-99); Mean Platelet Vol. 11.4 fl (6.2-12.0); Monocyte# 0.25 X10^3/uL; Monocyte% 2.1 % (0-10); NRBC Flagged by Analyzer 0 % (0-5); Neutrophil # 11.13 X10^3/uL (2.7-7.7); Neutrophil % 92.2 % (47-70); Platelet Count 261 K/mm3 (150-450); RBC Distribution Width CV 13.8 % (11.6-14.6); White Blood Count 12.1 K/mm3 (4.4-11.0)
[2023-08-01 17:39] LABS: AST(SGOT) 14 U/L (15-37); Alanine Aminotransfer ALT/SGPT 25 U/L (13-56); Albumin, Serum 3.8 g/dL (3.2-5.0); Alkaline Phosphatase 79 U/L (45-117); Anion Gap 6 (5-15); BUN 19 mg/dL (7-18); BUN/Creat Ratio 16.7 RATIO (10-20); Calcium,Total 9.7 mg/dL (8.5-10.1); Chloride 105 mmol/L (98-107); Creatinine, Serum 1.14 mg/dL (0.55-1.02); EST Glomerular Filtration Rate 50 mL/min (>60); Est Glom Filt Rate - Afr Amer 60 mL/min (>60); Globulin 3.7 g/dL (2.2-4.2); Glucose 130 mg/dL (74-106); Lipase 23 U/L (13-75); Potassium 3.8 mmol/L (3.5-5.1); Protein, Total 7.5 g/dL (6.4-8.2); Sodium Level 136 mmol/L (136-145)
--- NOTE | 2023-08-01 18:11 | PCM.HP.STD ---
HPI - General General Date of Service: 08/01/23 HPI Narrative PRASHANT HAYES, is a 73 F who presents due to abdominal pain and nausea vomiting today. Patient has a past medical history for Parkinson's and does mostly use a wheelchair and occasionally has issues with dysphagia and does not use a straw due to this and mostly just soft foods no issues with thin liquids though per patient and her sister who is with her in the ER. Patient was able to eat okay last night with no nausea no vomiting but did complain of some abdominal pain later at night. However today she was having nausea and vomiting only unable to keep food down. CT abdomen pelvis was consistent with a cecal volvulus. Patient is never had previous abdominal surgeries. Patient does currently live alone. Patient white blood count is 12.1. Patient was given Zosyn IV in the ER and also NG was placed as well as a Baig. Patient was recently in at the ER due to scalp laceration as she fell last Saturday, which was stapled. [facility] Medical History Parkinson disease Home Medications benztropine 2 mg tablet 1 mg PO BID PARKINSONS 07/20/16 [History Last Taken 08/01/23] simvastatin 20 mg tablet 20 mg PO QHS CHOLESTEROL 07/20/16 [History Last Taken 07/31/23] cephalexin 500 mg capsule 500 mg PO TID ANTIBIOTIC #15 caps 07/28/23 [Rx Last Taken 07/31/23] alendronate 70 mg tablet 70 mg PO LEWIS OSTEOPEROSIS 08/01/23 [History Last Taken 07/28/23] aspirin 81 mg chewable tablet 81 mg PO DAILY HEART HEALTH 08/01/23 [History Last Taken 08/01/23] citalopram 10 mg tablet 10 mg PO DAILY DEPRESSION 08/01/23 [History Last Taken 08/01/23] citalopram 20 mg tablet 20 mg PO DAILY DEPRESSION 08/01/23 [History Last Taken 08/01/23] melatonin 5 mg tablet 10 mg PO QHS SLEEP 08/01/23 [History Last Taken 07/31/23] omeprazole 40 mg capsule,delayed release 40 mg PO DAILY ACID REFLUX 08/01/23 [History Last Taken 08/01/23] pramipexole 0.125 mg tablet 0.125 mg PO TID PARKINSONS 08/01/23 [History Last Taken 08/01/23] pramipexole 0.25 mg tablet 0.25 mg PO TID parkinsons 08/01/23 [History Last Taken Unknown] rasagiline 1 mg tablet 1 mg PO DAILY PARKINSONS 08/01/23 [History Last Taken 08/01/23] valsartan 160 mg tablet 160 mg PO DAILY BLOOD PRESSURE 08/01/23 [History Last Taken 08/01/23] Allergy/AdvReac Type Severity Reaction Status Date / Time codeine AdvReac CRAZY Verified 08/01/23 16:52 DREAMS DOES NOT LIKE TO TAKE IT Social History Smoking Status: Never smoker Vital Signs Vital Signs Vital Signs: 08/01/23 16:50 Temperature 96.9 F L Temperature Source Temporal Pulse Rate 78 Respiratory Rate 18 Blood Pressure 137/72 H Blood Pressure Mean 93 Pulse Ox 97 Oxygen Delivery Method Room Air Physical Exam Narrative NG in place Const alert, oriented x3 and no apparent distress HEENT normocephalic HEENT Narrative: Frontal scalp with carmelina?fall last Saturday Resp normal respiratory effort Cardio regular rate GI soft to palpation; Negative for non-distended Palpation: tender other (Right mid abdomen, no peritoneal signs); Negative for guarding Extremity no clubbing, cyanosis or edema Neuro moves all extremities Psych mental status grossly normal Results Lab / Micro Data 08/01/23 17:10 08/01/23 17:10 Labs: Laboratory Results - last 24 hr 08/01/23 17:10: WBC 12.1 H, RBC 4.10 L, Hgb 11.5 L, Hct 36.4 L, MCV 88.8, MCH 28.0, MCHC 31.6 L, RDW Std Deviation 45.0 H, RDW Coeff of Addie 13.8, Plt Count 261, MPV 11.4, Immature Gran % (Auto) 0.400, Neut % (Auto) 92.2 H, Lymph % (Auto) 5.1 L, [place] % (Auto) 2.1, Eos % (Auto) 0.0, Baso % (Auto) 0.2, Absolute Neuts (auto) 11.1 H, Absolute Lymphs (auto) 0.61 L, Nucleated RBC % 0, Sodium 136, Potassium 3.8, Chloride 105, Carbon Dioxide 25.0, Anion Gap 6, BUN 19 H, Creatinine 1.14 H, Est GFR (MDRD) Af Amer 60, Est GFR (MDRD) Non-Af 50 L, BUN/Creatinine Ratio 16.7, Glucose 130 H, Calcium 9.7, Total Bilirubin 0.50, AST 14 L, ALT 25, Alkaline Phosphatase 79, Total Protein 7.5, Albumin 3.8, Globulin 3.7, Albumin/Globulin Ratio 1.0, Lipase 23 Radiology Impression Abdomen/Pelvis CT 08/01/23 17:02 IMPRESSION: Dilated segment of bowel within the mid abdomen with associated swirling of the mesentery may be secondary to a cecal volvulus. Moderate amount of stool throughout the colon. Electronically Signed: Grace Donohue MD at 17:47 EDT , Assessment & Plan Assessment/Plan (1) Cecal volvulus: PLAN: Plan Plan for exploratory laparotomy, bowel resection due to cecal volvulus. Discuss and reviewed CT abdomen pelvis personally and with the patient and her sister. Discussed the procedure including but not limited to risk of bleeding, infection, injury to another organ, and anesthesia. Patient and her sister had no further question this time. Did discuss with patient and her sister that requested full code-- intubation and CPR Esme Andre M.D. Pager: [phone] [facility] [address] [place] [address], [facility], [address] [place] [address] Office: [phone]
[2023-08-01] MEDS: Oxymetazoline 0.05% 1 SPRAY SPRAY.BTL 2 SPRAY NASAL (18:27)
--- NOTE | 2023-08-01 18:30 | RAD_ITS ---
INDICATION: NG Insertion EXAMINATION/TECHNIQUE: X-RAY - XR Abdomen 1 View COMPARISON: CT abdomen and pelvis from the same day. FINDINGS: A single frontal view of the upper abdomen was obtained. The tip of the NG tube projects over the body of the stomach. Dilated loops of small bowel are identified as on the prior exam. No gross free air identified. RAD/Abdomen Single View (Portable) IMPRESSION: Tip of the NG tube projects over the body of the stomach. Electronically Signed: Rohith Falcon MD at 19:08 EDT ,
[2023-08-01 18:34] LABS: International Normalized Ratio 1.1; Partial Thromboplast Time 25.8 Seconds (24.1-36.2)
[2023-08-01] MEDS: Piperacil/Tazobactam 3.375 GM in 0.9% Normal Saline (50mL MB+) 50 ML IV (18:37)
--- NOTE | 2023-08-01 19:45 | COL_PTH ---
PATIENT: PRASHANT HAYES LOC: MS3 U#:[id number] AGE/SX: 73/F [place] [facility] [place]08/01/[address]: Dr. Esme Andre MD : 1950 BED: 1 DIS: 08/06/2023 SPEC #: [id number] RECD: 08/02/23 10:20 STATUS: ADRIANA REBan #: [id number] SETH: 08/01/23 19:[address]: Esme Andre DEPT: SURGICAL PATHOLOGY RECD BY: Sarika Parham ENTERED: 08/02/23 11:35 SP TYPE: COLON OTHR DR: Dr. Ez Garcia MD Tissues: Colon, NOS Procedures: Surgery Specimen Level V HEADER OPERATION: Right hemicolectomy PRE-OP DIAGNOSIS: Cecal volvulus TISSUE SUBMITTED: Right colon MICROSCOPIC DIAGNOSIS Right colon, right hemicolectomy: Attenuative large bowel segment consistent with volvulus. Appendix with fibrofatty obliteration of lumen. Three out of three lymph nodes with no pathologic change. Omentum with vascular congestion. AM:april 08/06/2023 MICROSCOPIC DESCRIPTION Slides are reviewed. GROSS DESCRIPTION Received in fixative is one container labeled with the patient's name and designated right colon. The specimen consists of a right hemicolectomy specimen consisting of cecum with ascending colon, portion of transverse colon, small intestine and appendix with attached pericolonic adipose tissue and mesenteric tissue. The cecum with ascending colon and transverse colon measures 34.0 cm in length. The small intestine measures 8.0 cm in length and appendix measures 4.5 cm in length and 0.3 cm in diameter. The cecum is dilated and measures up to 10.0 cm in diameter and the rest of the colon measures 4.0 to 5.0 cm in diameter. Both resections margins are stapled. The lumen contains predominantly liquified fecal material and a focal area of solid material. The mucosal folds are markedly flattened in the cecal area and decreased in the ascending colon and transverse colon. No mucosal lesion is identified. Attached portion of omentum measures 10.0 x 4.0 x 0.5 cm. Also present in the container is a donut-shaped piece of tissue measuring 3.5 x 1.0 x 0.7 cm. Two smaller donut-shaped pieces of tissue are also noted measuring 1.0 x 0.5 x 0.5 cm and 1.5 x 0.7 x 0.5 cm. Multiple carmelina are noted in these pieces. More dictation will follow after fixation. / SJ:april 08/02/2023 Sections of pericolonic adipose tissue does not reveal any obviously enlarged lymph node. Sections of the appendix reveal almost obliterated lumen. Sections of omentum do not reveal any mass lesion. Repair Service Dispatcher sections are submitted in seven cassettes as follows: 1 - detached donut-shaped pieces of tissue, 2 - proximal and distal resection margin, 3 - appendix, 4 - dilated segment of cecum, 5??ileocecal valve, 6 - pericolonic adipose tissue with possible lymph node, 7??omentum. / SJ:april 08/05/2023 TC:5 CPT: 37860
--- NOTE | 2023-08-01 19:52 | EKG12_ITS ---
Test Reason : ARHYTHMIA Blood Pressure : / mmHG Vent. Rate : 077 BPM Atrial Rate : 077 BPM P-R Int : 130 ms QRS Dur : 090 ms QT Int : 522 ms P-R-T Axes : 072 075 082 degrees QTc Int : 590 ms Normal sinus rhythm Nonspecific T wave abnormality Abnormal ECG When compared with ECG of 28-JUL-2023 10:42, MANUAL COMPARISON REQUIRED, DATA IS UNCONFIRMED Confirmed by FRED MEDEROS, YASIR ([id number]), editor house organ TAL JENKINS ([id number]) on 09/03/2023 1:19:41 PM Referred By: Esme Andre Confirmed By:YASIR IBARRA MD
[2023-08-01 19:54] LABS: Bacteria 0 SEEN /hpf (None Seen); Color, Urine Yellow (Yellow); Glucose, Dipstick Normal (Normal); Ketone-Dipstick 15 mg/dl (Negative); Leukocyte Esterase-Dipstick Negative /ul (Negative); Nitrite-Dipstick Negative (Negative); Occult Blood-Urine Negative /ul (Negative); Protein-Dipstick 15 mg/dl (Negative); Red Blood Cells-Urine 0 SEEN /hpf (0-5); Urine Bilirubin Dipstick Negative (Negative); Urine Clarity Clear (Clear); Urine Urobilinogen Normal (Normal); White Blood Cells 0 SEEN /hpf (0-5)
[2023-08-01 20:00] LABS: Mucous, Urine 1+ /hpf (<or=2+); Squamous Epithelial Cells - UA 0-5 SEEN /hpf (5-10)
--- NOTE | 2023-08-01 21:16 | OP.PCM_ITS ---
Report of Operation Date of Procedure: 08/01/23 Pre-Operative Diagnosis: Cecal volvulus Post-Operative Diagnosis: Same Surgery/Procedure Performed:: Open right hemicolectomy Surgeon: Esme Andre high value associate: Shantel Daniels Type of Anesthesia: General/Supplemental Anesthesiologist: Perry Rosenberg Special Medications: Zosyn 3.375 g IV x1 Specimen's removed: Right hemicolectomy Estimated Blood Loss (mL): 20 Fluids Replaced: Per anesthesia Description of Procedure: Patient was brought to the operating placed spinal operating table. Timeout was completed verifying correct patient, procedure, site, positioning, special, prior to beginning procedure. General anesthesia was induced. Abdomen was prepped and draped in usual sterile fashion with chlorhexidine. Midline incision was made with a 10 blade scalpel and deepened to the fascia with electrocautery. Fascia was elevated and incised into the abdomen was direct visualization. No injury was noted upon entering the abdomen. An extra- large wound protector was placed. There is noted to have a cecal volvulus with distended cecum and small bowel. The white line of Toldt was incised freeing the cecum from the ascending colon. The hepatic flexure was also mobilized. The LigaSure impact was used to divide the mesentery. Ileocolic artery was tied with 0 silk suture. CATRACHITO-75 stapler was used to divide the ileum as well as the transverse colon. Specimen was passed off and sent to pathology. The 2 ends of the the ileum and transverse colon were anastomosed with CATRACHITO 75 stapler after enterotomies were made in that the antimesenteric border of small bowel and tinea of colon. A TX 60 was used to close the enterotomy. Anastomosis was patent. Interrupted 3-0 silk sutures were placed due to bleeding at the staple line and as a crotch stitch. Abdomen was irrigated with saline and suction. No attempt was made to close the mesentery. The fascia was closed with running 1 PDS. Incision was closed 3-0 Vicryl subdermal sutures and 4-0 Monocryl on the skin. OpSite was placed. Patient was extubated. Patient tolerated procedure well was taken to the postanesthesia care unit in stable condition. Complications none
[2023-08-01] MEDS: Bupivacaine 0.25% 30 ML Vial (21:18)
[2023-08-01] MEDS: Lactated Ringers 1,000 ML 120 ML IV (22:21)
[2023-08-01] MEDS: Morphine 2 MG/ML Syringe IV (23:23)
[2023-08-01] MEDS: Pantoprazole Sodium 40 MG in 0.9% Normal Saline (100mL MB+) 100 ML 330 MG IV (23:25)
[2023-08-02] MEDS: Benztropine 2 MG Tablet 1 MG GT ×3 (00:03→20:44)
[2023-08-02] MEDS: MELATONIN 10 MG TABLET GT ×2 (00:06→20:44)
[2023-08-02] MEDS: Pramipexole Di-HCl 0.125 MG Tablet GT ×4 (00:06→20:48)
[2023-08-02] MEDS: Morphine 2 MG/ML Syringe IV ×4 (01:31→08:16)
[2023-08-02 01:36] VITALS: BP 155/64; PULSE 95; RESP 16; TEMP 37.2; O2SAT 98
[2023-08-02 03:44] VITALS: BP 146/56; PULSE 95; RESP 16; TEMP 37.2; O2SAT 97
[2023-08-02] MEDS: Lactated Ringers 1,000 ML 120 ML IV ×2 (06:36→14:29)
[2023-08-02 07:30] LABS: Absolute Lymphocyte Count 0.67 X10^3/uL (0.83-4.51); Absolute Neutrophil Count 13.5 X10^3/uL (2.0-7.7); Basophil# 0.02 X10^3/uL; Basophil% 0.1 % (0-1); Hematocrit 33.2 % (37-47); Hemoglobin 10.3 g/dL (12.0-15.0); Lymphocyte # 0.67 X10^3/ul (0.83-4.51); Lymphocyte % 4.5 % (19-41); Mean Corpuscular Hgb 28.5 pg (27.0-32.0); Mean Corpuscular Volume 91.7 fL (81-99); Mean Platelet Vol. 11.8 fl (6.2-12.0); Monocyte# 0.69 X10^3/uL; Monocyte% 4.6 % (0-10); NRBC Flagged by Analyzer 0 % (0-5); Neutrophil # 13.49 X10^3/uL (2.7-7.7); Neutrophil % 90.4 % (47-70); Platelet Count 249 K/mm3 (150-450); RBC Distribution Width SD 47.4 fl (35.1-43.9); Red Blood Count 3.62 M/mm3 (4.2-5.4); White Blood Count 14.9 K/mm3 (4.4-11.0)
[2023-08-02 07:44] VITALS: BP 121/65; PULSE 82; RESP 18; TEMP 37.3; O2SAT 95
[2023-08-02 08:03] LABS: Anion Gap 3 (5-15); BUN 20 mg/dL (7-18); Calcium,Total 8.5 mg/dL (8.5-10.1); Chloride 110 mmol/L (98-107); Creatinine, Serum 1.05 mg/dL (0.55-1.02); EST Glomerular Filtration Rate 55 mL/min (>60); Est Glom Filt Rate - Afr Amer 66 mL/min (>60); Glucose 131 mg/dL (74-106); Potassium 4.3 mmol/L (3.5-5.1); Sodium Level 140 mmol/L (136-145)
--- NOTE | 2023-08-02 08:13 | PN.SURG_ITS ---
Subjective Subjective Patient has minimal out of NG, denies flatus, incision dressed clean dry and intact Objective Data Objective Data Vital Signs: Vital Signs Temp Pulse Resp BP Pulse Ox O2 Del Method O2 Flow Rate 99.1 F 82 18 121/65 H 95 Nasal Cannula 2 08/02/23 07:44 08/02/23 07:44 08/02/23 07:44 08/02/23 07:44 08/02/23 07:44 08/02/23 07:44 08/02/23 07:44 Oxygen Flow Rate (L/min) 2 Oxygen Delivery Method Nasal Cannula Weight: 137 lb 3.2 oz Body Mass Index (BMI) 25.0 Intake & Output: Intake and Output for Last 24 Hours 07/31/23 08/01/23 08/02/23 23:59 23:59 23:59 Intake Total 1220 / 1220 1110 / 1110 Output Total 200 / 400 500 / 500 Balance 1020 / 820 610 / 610 Lab / Micro Data 08/02/23 06:35 08/02/23 06:35 Labs: Laboratory Results - last 24 hr 08/01/23 17:10: WBC 12.1 H, RBC 4.10 L, Hgb 11.5 L, Hct 36.4 L, MCV 88.8, MCH 28.0, MCHC 31.6 L, RDW Std Deviation 45.0 H, RDW Coeff of Addie 13.8, Plt Count 261, MPV 11.4, Immature Gran % (Auto) 0.400, Neut % (Auto) 92.2 H, Lymph % (Auto) 5.1 L, Burnet % (Auto) 2.1, Eos % (Auto) 0.0, Baso % (Auto) 0.2, Absolute Neuts (auto) 11.1 H, Absolute Lymphs (auto) 0.61 L, Nucleated RBC % 0, Sodium 136, Potassium 3.8, Chloride 105, Carbon Dioxide 25.0, Anion Gap 6, BUN 19 H, Creatinine 1.14 H, Est GFR (MDRD) Af Amer 60, Est GFR (MDRD) Non-Af 50 L, BUN/Creatinine Ratio 16.7, Glucose 130 H, Calcium 9.7, Total Bilirubin 0.50, AST 14 L, ALT 25, Alkaline Phosphatase 79, Total Protein 7.5, Albumin 3.8, Globulin 3.7, Albumin/Globulin Ratio 1.0, Lipase 23 08/01/23 18:14: PT 14.0, INR 1.1, APTT 25.8, Blood Type O NEGATIVE, Antibody Screen NEGATIVE 08/01/23 19:30: Urine Color Yellow, Urine Clarity Clear, Urine pH 5.0, Ur Specific [place] 1.020, Urine Protein 15 H, Urine Glucose (UA) Normal, Urine Ketones 15 H, Urine Occult Blood Negative, Urine Nitrite Negative, Urine Bilirubin Negative, Urine Urobilinogen Normal, Ur Leukocyte Esterase Negative, Urine RBC 0 SEEN, Urine WBC 0 SEEN, Ur Squamous Epith Cells 0-5 SEEN, Urine Bacteria 0 SEEN, Urine Mucus 1+ 08/02/23 06:35: WBC 14.9 H, RBC 3.62 L, Hgb 10.3 L, Hct 33.2 L, MCV 91.7, MCH 28.5, MCHC 31.0 L, RDW Std Deviation 47.4 H, RDW Coeff of Addie 14.0, Plt Count 249, MPV 11.8, Immature Gran % (Auto) 0.400, Neut % (Auto) 90.4 H, Lymph % (Auto) 4.5 L, Burnet % (Auto) 4.6, Eos % (Auto) 0.0, Baso % (Auto) 0.1, Absolute Neuts (auto) 13.5 H, Absolute Lymphs (auto) 0.67 L, Nucleated RBC % 0, Sodium 140, Potassium 4.3, Chloride 110 H, Carbon Dioxide 27.0, Anion Gap 3 L, BUN 20 H , Creatinine 1.05 H, Estim Creat Clear Calc 38.30, Est GFR (MDRD) Af Amer 66, Est GFR (MDRD) Non-Af 55 L, BUN/Creatinine Ratio 19.0, Glucose 131 H, Calcium 8.5 Radiography Diagnostic Testing: Radiology Impression Abdomen/Pelvis CT 08/01/23 17:02 IMPRESSION: Dilated segment of bowel within the mid abdomen with associated swirling of the mesentery may be secondary to a cecal volvulus. Moderate amount of stool throughout the colon. Electronically Signed: Grace Donohue MD at 17:47 EDT , KUB X-Ray 08/01/23 18:30 IMPRESSION: Tip of the NG tube projects over the body of the stomach. Electronically Signed: Rohith Falcon MD at 19:08 EDT , Physical Exam Resp normal respiratory effort Cardio regular rate GI GI Narrative: Abdomen: Soft, nondistended, tender near incision's dressed clean dry and intact, no peritoneal signs Assessment & Plan Assessment/Plan (1) S/P right hemicolectomy: (2) Cecal volvulus: PLAN: Plan POD#1 We will check NG after being clamped for 4 hours if not much residual will remove and keep patient n.p.o. until she begins to have flatus. Patient did have some element of constipation with hard stools throughout her colon during surgery. Continue pain control Recommend out of bed to chair, due to Parkinson's patient is mostly in a wheelchair per family PT /OT due to history of Parkinson's and also recent history of falls patient may need placement as patient will family reports looking into possible assisted living just prior to this hospitalization as she came into the ER on Saturday and had a large scalp lack that had to be stapled. Scalp carmelina to be removed on next Saturday-Per family Dr. Olson will be covering for me as I will be gone next week. Esme Andre M.D. Pager: [phone] [facility] [address] [place] [address], [address] [place] [address] Office: [phone]
[2023-08-02] MEDS: Citalopram 10 MG Tablet 30 MG GT (10:00)
[2023-08-02] MEDS: Pantoprazole Sodium 40 MG in 0.9% Normal Saline (100mL MB+) 100 ML 330 MG IV (10:02)
[2023-08-02] MEDS: Losartan Potassium 50 MG Tablet GT (10:02)
[2023-08-02] MEDS: Acetaminophen 650 MG/20 ML UDC 1000 MG PO ×2 (11:00→18:33)
--- NOTE | 2023-08-02 11:25 | CASEMGMT ---
Addendum entered by Marlene Sandoval 08/02/23 12:43: ALICE SINGH back into pt room per family request. Pt sister Moo present. They have decided on [facility] Rehab unit. Updated SW. Pt and family deny further needs at this time. Original Note: RN SAMANTHA Assessment: Face to Face with pt for initial transition planning/care coordination assessment. RN SAMANTHA introduced self and role at [facility], pt voices understanding and consents to assessment. Pt is A/O x4 and answers all questions appropriately at this time. Pt sitting in chair with NG in with sister Kim at bedside. Care providers, pharmacy, and demographics verified/updated. Admitting Dx: cecal volvulus PCP:Radha Specialists:[facility]ayna Vidales neuro in [place] Preferred Pharmacy: [facility] Insurance: Rivera OSORIO Prescription Benefit: yes LNOK: Moo Ramires, sister; Hillary Simpson, brother Living Arrangements: Pt lives alone in a ground level apt with no steps to enter. Pt reports she had been I in [place]'s a few weeks ago but 5 days ago fell at home and suffered a scalp laceration. She states she does not like to cook so she eats quick items. Her son is a physician in [place] and sends prepared meals for her. Pt gets groceries with her sister and does her own laundry. Pt states she is aware that she cannot return home as it is unsafe and they have been looking into ALs. Pt has toured [facility] and they have a call out to [facility]. Transportation: Pt reports she recently did not pass the test to continue driving. Pt states her sister transports her to medical appts. DME/HHC/SNF: Pt has 3 walkers, shower seat and grab bars that need installed. Pt denies hx of HHC or SNF stays. Pt states she has come to the realization that she cannot go back home. Discussed all options including HHC, SNF and AL. Discussed SNF with possible transition to AL as pt is assist x2 with FWW. Also discussed the possibility of rehab unit. Provided list of Rehab units created by dc payroll administrative assistant and asked dc payroll administrative assistant to provide pt with SNF list. Pt sister Moo will be coming in this afternoon. Pt to ask for CM to have discussion with family. Pt states this is overwhelming for her as she was I prior. Pt states no further concerns/needs. CM to follow. Advised pt to ask CM if any further question/concerns/needs arise, voices understanding. Pt Goal: TBD Plan: TBD, likely SNF vs Rehab unit
--- NOTE | 2023-08-02 12:03 | CASEMGMT ---
Discharge Planning A list of SNF) providers including quality and resource use data and consistent with the patient?s preferred geographic region, medical needs, and insurance network were printed and provided from the [facility] Guide. Marietta Bucio, Discharge Planning Asst.
--- NOTE | 2023-08-02 12:05 | CASEMGMT ---
Marietta Bucio, Discharge Planning Asst. A list of acute rehab unit providers including quality and resource use data and consistent with the patient?s preferred geographic region, medical needs, and insurance network was created in [facility] Guide. This list was provided to the RN SAMANTHA. Marietta Bucio, Discharge Planning Asst.
[2023-08-02 12:19] VITALS: BP 105/58; PULSE 74; RESP 18; TEMP 37.2; O2SAT 95
[2023-08-02] MEDS: 0.9% Normal Saline (500mL Bag) 500 ML IV (12:55)
--- NOTE | 2023-08-02 13:08 | CASEMGMT ---
Social Work Collaboration with Marlene JENKINS CM, regarding patient's discharge plan. Anticipate need for short term rehab at discharge with first choice of [facility]. Marlene chavira patient and sisters also have questions about assisted living. Both SNF and RU choice lists provided to patient/family today. This check writer salesperson met with patient and patient's 2 sisters. Inquired about next choice, should [facility] not work out. Next choice is [facility]. After that, the patient and family are uncertain and have to further consider the lists provided today. This check writer salesperson inquired whether patient/family had questions about assisted living. The sister Moo chavira has toured some facilities, but really uncertain about specifics like cost, what care can be provided, etc. Patient dozing off at this point in conversations, so this check writer salesperson offered for SW to come back at a later time to answer questions as able. Patient expressed appreciation, as wants to be awake for discussion. During conversation, patient reminiscent about living [place], working with an [employer] for years. Has been back to [place] for the last 7 years, after receiving Parkinson diagnosis. Emotional support, and supportive listening offered. Message to Isabel in admissions for [facility] and [facility]. No discharge timeframe yet known. Anticipate patient's care need to extend through the weekend timeframe. Plan: Referrals pending at [facility] and [facility]. If unable to accept, will need to get an alternate choice for aftercare. SW to follow and assist. -SANDRA Cordero
[2023-08-02 14:48] VITALS: O2SAT 95
[2023-08-02 19:48] VITALS: BP 125/67; PULSE 82; RESP 18; TEMP 36.8; O2SAT 95
[2023-08-02] MEDS: oxyCODONE 5 MG Tablet PO (20:48)
[2023-08-03] MEDS: Acetaminophen 650 MG/20 ML UDC 1000 MG PO ×4 (00:26→18:32)
[2023-08-03 00:50] VITALS: BP 136/75; PULSE 89; RESP 16; TEMP 37.1; O2SAT 96
[2023-08-03] MEDS: Ondansetron 4 MG/2 ML Vial IV (01:14)
[2023-08-03] MEDS: Morphine 2 MG/ML Syringe IV (01:14)
[2023-08-03] MEDS: BENZOCAINE/MENTHOL 1 LOZENGE MUCOUS MEM (01:30)
[2023-08-03] MEDS: Lactated Ringers 1,000 ML 120 ML IV (01:31)
--- NOTE | 2023-08-03 08:59 | PCM.PN.SRG ---
Subjective Subjective Patient is not passing flatus yet. Objective Data Objective Data Vital Signs: Vital Signs Temp Pulse Resp BP Pulse Ox O2 Del Method O2 Flow Rate 98.7 F 89 16 136/75 H 96 Room Air 96 08/03/23 00:50 08/03/23 00:50 08/03/23 00:50 08/03/23 00:50 08/03/23 00:50 08/03/23 00:50 08/02/23 12:19 Oxygen Flow Rate (L/min) 96 Oxygen Delivery Method Room Air Weight: 137 lb 3.204 oz Body Mass Index (BMI) 25.0 Intake & Output: Intake and Output for Last 24 Hours 08/01/23 08/02/23 08/03/23 23:59 23:59 23:59 Intake Total 1220 / 1220 3914 / 3914 60 / 60 Output Total 200 / 400 650 / 650 450 / 450 Balance 1020 / 820 3264 / 3264 -390 / -390 Lab / Micro Data 08/02/23 06:35 08/02/23 06:35 Physical Exam Const oriented x3 Resp normal respiratory effort GI soft to palpation Assessment & Plan Assessment/Plan (1) S/P right hemicolectomy: PLAN: Patient appears to be doing well but she is not passing flatus yet. I advised her to let the nurses know if she starts passing flatus and I will start her on clear liquids. I will also remove her Baig and decrease her IV fluids. Ishaan Olson MD Pager: [facility] [address] [place] [address], [address] [place] [address] Office:
[2023-08-03 09:00] VITALS: BP 114/55; PULSE 72; RESP 18; TEMP 36.9; O2SAT 97
[2023-08-03] MEDS: Lactated Ringers 1,000 ML 40 ML IV (09:06)
[2023-08-03] MEDS: Pantoprazole Sodium 40 MG in 0.9% Normal Saline (100mL MB+) 100 ML 330 MG IV (09:07)
--- NOTE | 2023-08-03 09:50 | RAD_ITS ---
INDICATION: hand swelling/pain EXAMINATION/TECHNIQUE: X-RAY - RIGHT XR Shoulder Min 2 Views 2 VIEWS COMPARISON: FINDINGS: SOFT TISSUES: No soft tissue swelling or gas. No radiopaque foreign body. BONES/JOINTS: Mild acromioclavicular hypertrophy and glenohumeral joint space narrowing. No fracture, subluxation or dislocation. RAD/Shoulder min 2 Views IMPRESSION: Mild acromioclavicular hypertrophy. Electronically Signed: Arsen Jhaveri MD at 10:08 EDT ,
--- NOTE | 2023-08-03 09:50 | RAD_ITS ---
INDICATION: hand swelling/pain EXAMINATION/TECHNIQUE: X-RAY - RIGHT XR Elbow 2 Views COMPARISON: FINDINGS: SOFT TISSUES: No soft tissue swelling or gas. No radiopaque foreign body. BONES/JOINTS: There is no evidence of fracture, subluxation or dislocation. There is no evidence of joint effusion. RAD/Elbow 2 Views IMPRESSION: Negative. Electronically Signed: Arsen Jhaveri MD at 10:08 EDT ,
[2023-08-03] MEDS: Citalopram 10 MG Tablet 30 MG PO (11:22)
[2023-08-03] MEDS: Losartan Potassium 50 MG Tablet PO (11:22)
[2023-08-03] MEDS: Benztropine 2 MG Tablet 1 MG PO ×2 (11:24→21:39)
[2023-08-03] MEDS: Pramipexole Di-HCl 0.25 MG Tablet PO ×2 (14:18→21:39)
[2023-08-03 14:35] VITALS: BP 120/63; PULSE 72; RESP 18; TEMP 36.8; O2SAT 95
[2023-08-03 20:35] VITALS: BP 138/68; PULSE 83; RESP 16; TEMP 36.9; O2SAT 94
[2023-08-03] MEDS: MELATONIN 10 MG TABLET PO (21:40)
[2023-08-04] MEDS: Acetaminophen 650 MG/20 ML UDC 1000 MG PO ×4 (00:15→17:51)
[2023-08-04 02:40] VITALS: BP 139/77; PULSE 82; RESP 16; TEMP 36.8; O2SAT 96
[2023-08-04] MEDS: Pramipexole Di-HCl 0.25 MG Tablet PO ×3 (05:17→22:26)
[2023-08-04] MEDS: Lactated Ringers 1,000 ML 40 ML IV (05:18)
[2023-08-04] MEDS: Ondansetron 4 MG/2 ML Vial IV (05:27)
[2023-08-04] MEDS: 0.9% Saline Lock 10 ML Syringe IV (05:27)
--- NOTE | 2023-08-04 06:57 | NURSING ---
08/04/23: Tylenol on MAR for 0000 and 0600 were both 1/2 doses (500mg) due to pt refusing whole dose. Pt. reports that at times she will sip on it at home through the night. Nurse notified pt that med cannot be left at her bedside and pt notified nurse to discard other 500mg for each dose. Nurse attempted to correct MAR however, it stated error and would not allow documentation to be undone.
[2023-08-04 07:15] LABS: Absolute Neutrophil Count 3.1 X10^3/uL (2.0-7.7); Basophil# 0.01 X10^3/uL; Basophil% 0.2 % (0-1); Eosinophil# 0.14 X10^3/uL; Eosinophils% 3.3 % (0-5); Hematocrit 31.3 % (37-47); Lymphocyte % 11.7 % (19-41); Mean Corp Hgb Conc 31.9 g/dL (32-36); Mean Corpuscular Hgb 29.2 pg (27.0-32.0); Mean Corpuscular Volume 91.3 fL (81-99); Mean Platelet Vol. 11.6 fl (6.2-12.0); Monocyte# 0.58 X10^3/uL; Monocyte% 13.5 % (0-10); NRBC Flagged by Analyzer 0 % (0-5); Neutrophil # 3.06 X10^3/uL (2.7-7.7); Neutrophil % 71.3 % (47-70); POSITIVE DIFFERENTIAL YES; Platelet Count 214 K/mm3 (150-450); RBC Distribution Width CV 14.1 % (11.6-14.6); RBC Distribution Width SD 47.8 fl (35.1-43.9); Red Blood Count 3.43 M/mm3 (4.2-5.4); White Blood Count 4.3 K/mm3 (4.4-11.0)
[2023-08-04 07:19] LABS: Differential Indicated SCAN CRITERIA MET
[2023-08-04 07:38] LABS: Anion Gap 3 (5-15); BUN 20 mg/dL (7-18); BUN/Creat Ratio 23.3 RATIO (10-20); Calcium,Total 8.9 mg/dL (8.5-10.1); Chloride 109 mmol/L (98-107); Creatinine, Serum 0.86 mg/dL (0.55-1.02); EST Glomerular Filtration Rate 69 mL/min (>60); Est Glom Filt Rate - Afr Amer 83 mL/min (>60); Estimated Creatinine Clearance 46.77 ml/min; Glucose 91 mg/dL (74-106); Potassium 4.1 mmol/L (3.5-5.1); Sodium Level 137 mmol/L (136-145)
[2023-08-04 08:40] VITALS: BP 156/87; PULSE 78; RESP 17; TEMP 36.9; O2SAT 99
--- NOTE | 2023-08-04 09:23 | PCM.PN.SRG ---
Subjective Subjective Patient reports she had confusion overnight. She was having hallucinations. She is passing flatus Objective Data Objective Data Vital Signs: Vital Signs Temp Pulse Resp BP Pulse Ox O2 Del Method O2 Flow Rate 98.4 F 78 17 156/87 H 99 Room Air 96 08/04/23 08:40 08/04/23 08:40 08/04/23 08:40 08/04/23 08:40 08/04/23 08:40 08/04/23 08:40 08/02/23 12:19 Oxygen Flow Rate (L/min) 96 Oxygen Delivery Method Room Air Weight: 137 lb 3.204 oz Body Mass Index (BMI) 25.0 Intake & Output: Intake and Output for Last 24 Hours 08/02/23 08/03/23 08/04/23 23:59 23:59 23:59 Intake Total 3914 / 3914 1080 / 1090 868 / 868 Output Total 650 / 650 450 / 685 245 / 245 Balance 3264 / 3264 630 / 405 623 / 623 Lab / Micro Data 08/04/23 06:25 08/04/23 06:25 Labs: Laboratory Results - last 24 hr 08/04/23 06:25: WBC 4.3 L, RBC 3.43 L, Hgb 10.0 L, Hct 31.3 L, MCV 91.3, MCH 29.2, MCHC 31.9 L, RDW Std Deviation 47.8 H, RDW Coeff of Addie 14.1, Plt Count 214, MPV 11.6, Immature Gran % (Auto) 0.000, Neut % (Auto) 71.3 H, Lymph % (Auto) 11.7 L, [place] % (Auto) 13.5 H, Eos % (Auto) 3.3, Baso % (Auto) 0.2, Absolute Neuts (auto) 3.1, Absolute Lymphs (auto) 0.50 L, Nucleated RBC % 0, Diff Path Review March, Sodium 137, Potassium 4.1, Chloride 109 H, Carbon Dioxide 25.0, Anion Gap 3 L, BUN 20 H, Creatinine 0.86, Estim Creat Clear Calc 46.77, Est GFR (MDRD) Af Amer 83, Est GFR (MDRD) Non-Af 69, BUN/Creatinine Ratio 23.3 H, Glucose 91, Calcium 8.9 Radiography Diagnostic Testing: Radiology Impression Elbow X-Ray 08/03/23 09:50 IMPRESSION: Negative. Electronically Signed: Arsen Jhaveri MD at 10:08 EDT , Shoulder X-Ray 08/03/23 09:50 IMPRESSION: Mild acromioclavicular hypertrophy. Electronically Signed: Arsen Jhaveri MD at 10:08 EDT , Physical Exam Const no apparent distress Resp normal respiratory effort GI soft to palpation and non-tender Assessment & Plan Assessment/Plan (1) Cecal volvulus: PLAN: Patient reports she had confusion overnight. She was having hallucinations. They did give her dose of morphine last night. I will stop her morphine today as her pain is not severe and I will order ibuprofen and Tylenol in its place. Patient is also passing some flatus. I will start a clear liquid diet. Ishaan Olson MD Pager: [facility] [address] [place] [address], [address] [place] [phone] Office:
[2023-08-04] MEDS: Citalopram 10 MG Tablet 30 MG PO (09:32)
[2023-08-04] MEDS: Pantoprazole Sodium 40 MG in 0.9% Normal Saline (100mL MB+) 100 ML 330 MG IV (09:33)
[2023-08-04] MEDS: Losartan Potassium 50 MG Tablet PO (09:33)
[2023-08-04] MEDS: Benztropine 2 MG Tablet 1 MG PO ×2 (09:33→22:27)
[2023-08-04 14:40] VITALS: BP 155/79; PULSE 72; RESP 17; TEMP 36.7; O2SAT 96
--- NOTE | 2023-08-04 17:13 | NURSING ---
VS taken by Shira JENKINS @ 2315 and entered by Shireen JENIKNS @ 1096
[2023-08-04 20:13] VITALS: BP 166/81; PULSE 74; RESP 16; TEMP 36.6; O2SAT 98
[2023-08-04 22:13] VITALS: BP 152/82; PULSE 79
[2023-08-04] MEDS: MELATONIN 10 MG TABLET PO (22:26)
[2023-08-05 02:25] VITALS: BP 146/81; PULSE 85; RESP 16; TEMP 37.3; O2SAT 95
[2023-08-05] MEDS: Acetaminophen 650 MG/20 ML UDC 1000 MG PO ×2 (05:16→11:43)
[2023-08-05] MEDS: Pramipexole Di-HCl 0.25 MG Tablet PO ×3 (05:17→21:03)
[2023-08-05] MEDS: Lactated Ringers 1,000 ML 40 ML IV (05:18)
--- NOTE | 2023-08-05 08:16 | PN.SURG_ITS ---
Subjective Subjective Patient had confusion and delirium again last night. Objective Data Objective Data Vital Signs: Vital Signs Temp Pulse Resp BP Pulse Ox O2 Del Method O2 Flow Rate 99.2 F H 85 16 146/81 H 95 Room Air 96 08/05/23 02:08/05/23 02:08/05/23 02:08/05/23 02:08/05/23 02:08/05/23 02:08/02/23 12:19 Oxygen Flow Rate (L/min) 96 Oxygen Delivery Method Room Air Weight: 137 lb 3.204 oz Body Mass Index (BMI) 25.0 Intake & Output: Intake and Output for Last 24 Hours 08/03/23 08/04/23 08/05/23 23:59 23:59 23:59 Intake Total 1080 / 1090 1218 / 1418 1160 / 1160 Output Total 450 / 685 255 / 255 Balance 630 / 405 963 / 1163 1160 / 1160 Lab / Micro Data 08/04/23 06:25 08/04/23 06:25 Physical Exam Const oriented x3 and no apparent distress Resp normal respiratory effort GI soft to palpation and non-tender Assessment & Plan Assessment/Plan (1) Cecal volvulus: PLAN: Patient is more FemoStop but she still had delusional last night. Unsure as to the cause. I will order a UA to make sure she does not have a UTI but it seems like her allergy to codeine is also confusion. I will also advance her to a regular diet. Ishaan Olson MD Pager: [facility] [address] [place] [address], [address] [place] [address] Office:
[2023-08-05 08:55] VITALS: BP 147/77; PULSE 74; RESP 18; TEMP 36.8; O2SAT 96
[2023-08-05] MEDS: Pantoprazole Sodium 40 MG in 0.9% Normal Saline (100mL MB+) 100 ML 330 MG IV (09:39)
[2023-08-05] MEDS: Citalopram 10 MG Tablet 30 MG PO (09:39)
[2023-08-05] MEDS: Ensure Plus High Protein 120 ML LIQUID PO ×3 (09:39→16:57)
[2023-08-05] MEDS: Benztropine 2 MG Tablet 1 MG PO ×2 (09:39→21:02)
[2023-08-05] MEDS: Losartan Potassium 50 MG Tablet PO (09:39)
--- NOTE | 2023-08-05 11:02 | WOUNDNOTE ---
Carmelina removed from the head as ordered. patient had fall at home and the laceration was stapled in the ED. carmelina were to be removed after 7 days. today is day 8 so the carmelina were removed. pt tolerated well. removed some of the old dried blood from the hair with shampoo cap. ALICE Cherry aware.
[2023-08-05 13:42] LABS: Pathologist Review Reviewed
[2023-08-05 14:30] VITALS: BP 139/78; PULSE 73; RESP 18; TEMP 36.9; O2SAT 94
[2023-08-05 15:42] LABS: Mucous, Urine 0 SEEN /hpf (<or=2+)
[2023-08-05 15:54] LABS: Color, Urine Yellow (Yellow); Glucose, Dipstick Normal (Normal); Ketone-Dipstick 15 mg/dl (Negative); Leukocyte Esterase-Dipstick 500 /ul (Negative); Nitrite-Dipstick Positive (Negative); Occult Blood-Urine 10 /ul (Negative); Protein-Dipstick 30 mg/dl (Negative); Urine Clarity Sl. Cloudy (Clear); Urine Urobilinogen 1 mg/dl (Normal)
[2023-08-05 16:45] LABS: Urine Bilirubin Dipstick 1 mg/dL (Negative)
[2023-08-05 16:53] LABS: Red Blood Cells-Urine 0-5 SEEN /hpf (0-5); Squamous Epithelial Cells - UA 0-5 SEEN /hpf (5-10); White Blood Cells 25-50 SEEN /hpf (0-5)
[2023-08-05 16:54] LABS: Amorphous Sediment 1+ URATE; Bacteria 3+ /hpf (None Seen)
[2023-08-05] MEDS: Piperacil/Tazobactam 3.375 GM in 0.9% Normal Saline (50mL MB+) 50 ML IV ×2 (18:09→21:04)
[2023-08-05] MEDS: 0.9% Normal Saline (1000mL) 1,000 ML 60 ML IV (18:43)
[2023-08-05 20:00] VITALS: BP 141/81; PULSE 67; RESP 16; TEMP 37; O2SAT 95
[2023-08-05] MEDS: MELATONIN 10 MG TABLET PO (21:02)
[2023-08-05] MEDS: Acetaminophen 500 MG Tablet 1000 MG PO (21:02)
[2023-08-06 02:00] VITALS: BP 159/90; PULSE 90; RESP 16; TEMP 37.1; O2SAT 99
[2023-08-06] MEDS: oxyCODONE 5 MG Tablet PO (04:37)
[2023-08-06] MEDS: Pramipexole Di-HCl 0.25 MG Tablet PO ×2 (05:09→13:26)
[2023-08-06] MEDS: Acetaminophen 500 MG Tablet 1000 MG PO ×2 (05:09→13:27)
[2023-08-06] MEDS: Piperacil/Tazobactam 3.375 GM in 0.9% Normal Saline (50mL MB+) 50 ML IV (05:09)
[2023-08-06 06:33] LABS: Absolute Lymphocyte Count 1.33 X10^3/uL (0.83-4.51); Absolute Neutrophil Count 4.5 X10^3/uL (2.0-7.7); Basophil# 0.02 X10^3/uL; Basophil% 0.3 % (0-1); Eosinophil# 0.22 X10^3/uL; Eosinophils% 3.2 % (0-5); Hematocrit 28.1 % (37-47); Hemoglobin 9.1 g/dL (12.0-15.0); Lymphocyte # 1.33 X10^3/ul (0.83-4.51); Lymphocyte % 19.4 % (19-41); Mean Corp Hgb Conc 32.4 g/dL (32-36); Mean Corpuscular Hgb 28.6 pg (27.0-32.0); Mean Corpuscular Volume 88.4 fL (81-99); Mean Platelet Vol. 10.1 fl (6.2-12.0); Monocyte% 10.2 % (0-10); NRBC Flagged by Analyzer 0 % (0-5); Neutrophil # 4.54 X10^3/uL (2.7-7.7); Neutrophil % 66.5 % (47-70); Platelet Count 279 K/mm3 (150-450); RBC Distribution Width CV 13.9 % (11.6-14.6); RBC Distribution Width SD 45.1 fl (35.1-43.9); Red Blood Count 3.18 M/mm3 (4.2-5.4); White Blood Count 6.8 K/mm3 (4.4-11.0)
[2023-08-06 06:56] LABS: Anion Gap 5 (5-15); BUN 18 mg/dL (7-18); BUN/Creat Ratio 24.5 RATIO (10-20); Chloride 112 mmol/L (98-107); Creatinine, Serum 0.74 mg/dL (0.55-1.02); EST Glomerular Filtration Rate 82 mL/min (>60); Est Glom Filt Rate - Afr Amer 100 mL/min (>60); Estimated Creatinine Clearance 40.22 ml/min; Glucose 103 mg/dL (74-106); Potassium 3.5 mmol/L (3.5-5.1); Sodium Level 140 mmol/L (136-145)
[2023-08-06] MEDS: Losartan Potassium 50 MG Tablet PO (08:10)
[2023-08-06] MEDS: Citalopram 10 MG Tablet 30 MG PO (08:10)
[2023-08-06] MEDS: Benztropine 2 MG Tablet 1 MG PO (08:11)
[2023-08-06] MEDS: Ensure Plus High Protein 120 ML LIQUID PO ×2 (08:14→12:24)
[2023-08-06 08:35] VITALS: BP 143/86; PULSE 82; RESP 16; TEMP 36.8; O2SAT 95
--- NOTE | 2023-08-06 09:06 | PN.SURG_ITS ---
Subjective Subjective Patient was less confused overnight. She is passing gas and tolerating regular diet. Objective Data Objective Data Vital Signs: Vital Signs Temp Pulse Resp BP Pulse Ox O2 Del Method O2 Flow Rate 98.2 F 82 16 143/86 H 95 Room Air 96 08/06/23 08:35 08/06/23 08:35 08/06/23 08:35 08/06/23 08:35 08/06/23 08:35 08/06/23 08:35 08/02/23 12:19 Oxygen Flow Rate (L/min) 96 Oxygen Delivery Method Room Air Weight: 137 lb 3.204 oz Body Mass Index (BMI) 25.0 Intake & Output: Intake and Output for Last 24 Hours 08/04/23 08/05/23 08/06/23 23:59 23:59 23:59 Intake Total 1218 / 1418 1834 / 1834 50 / 50 Output Total 255 / 255 Balance 963 / 1163 1834 / 1834 50 / 50 Lab / Micro Data 08/06/23 06:20 08/06/23 06:20 Labs: Laboratory Results - last 24 hr 08/04/23 06:25: Diff Path Review Reviewed 08/05/23 15:40: Urine Color Yellow, Urine Clarity Sl. Cloudy, Urine pH 5.0, Ur Specific [place] 1.030, Urine Protein 30 H, Urine Glucose (UA) Normal, Urine Ketones 15 H, Urine Occult Blood 10 H, Urine Nitrite Positive H, Urine Bilirubin 1 H, Urine Urobilinogen 1 H, Ur Leukocyte Esterase 500 H, Urine RBC 0-5 SEEN, Urine WBC 25-50 SEEN, Ur Squamous Epith Cells 0-5 SEEN, Amorphous Sediment 1+ URATE, Urine Bacteria 3+, Urine Mucus 0 SEEN 08/06/23 06:20: WBC 6.8, RBC 3.18 L, Hgb 9.1 L, Hct 28.1 L, MCV 88.4, MCH 28.6, MCHC 32.4, RDW Std Deviation 45.1 H, RDW Coeff of Addie 13.9, Plt Count 279, MPV 10.1, Immature Gran % (Auto) 0.400, Neut % (Auto) 66.5, Lymph % (Auto) 19.4, [place] % (Auto) 10.2 H, Eos % (Auto) 3.2, Baso % (Auto) 0.3, Absolute Neuts (auto) 4.5, Absolute Lymphs (auto) 1.33, Nucleated RBC % 0, Sodium 140, Potassium 3.5, Chloride 112 H, Carbon Dioxide 23.0, Anion Gap 5, BUN 18, Creatinine 0.74, Estim Creat Clear Calc 40.22, Est GFR (MDRD) Af Amer 100, Est GFR (MDRD) Non-Af 82, BUN/Creatinine Ratio 24.5 H, Glucose 103, Calcium 8.0 L Physical Exam Const oriented x3 and no apparent distress Resp normal respiratory effort GI soft to palpation and non-tender Assessment & Plan Assessment/Plan (1) UTI (urinary tract infection): (2) S/P right hemicolectomy: PLAN: Plan Patient has been for the last few nights though UA was checked yesterday. It was confirmed to be a urinary tract infection. She was started on Zosyn yesterday. I will convert her to oral Cipro and send her to TCU today. She is tolerating regular diet. I will continue to monitor the cultures and if these are insufficient to change her antibiotics. Ishaan Olson MD Pager: [facility] [address] [place] [address], [address] [place] [address] Office:
[2023-08-06] MEDS: Pantoprazole Sodium 40 MG in 0.9% Normal Saline (100mL MB+) 100 ML 330 MG IV (10:06)
--- NOTE | 2023-08-06 11:12 | PCM.TXEXTCAR ---
Diet Diet Order/Speech Therapy: 08/05/23 08:19 Diet: Regular - General Type of Dietary Supplement:: Magic Cup Dessert Is pt able to select menu?: Yes Diet Comments: softer foods per pt request; MC or ensure pudding w/ L&D, fort oatmeal @ B Wound(s) ABD: Wound Type: Surgical Incision forehead: Wound Type: Laceration Therapies Physical Therapy: Eval and Treat Occupational Therapy: Eval and Treat Speech Therapy: Eval and Treat Problem/Diagnosis (1) UTI (urinary tract infection): Status: Acute Code(s): N39.0 - Urinary tract infection, site not specified Plan: Start Macrobid for antibiotics x 5 days. Will await cultures to see if antibiotics will need to be changed. (2) S/P right hemicolectomy: Status: Acute Code(s): Z90.49 - Acquired absence of other specified parts of digestive tract Plan: Continue transitional diet until follow-up with Dr. Andre No lifting greater than 10 pounds until follow-up with Dr. Andre Follow-up with Dr. Andre in 1 week Allergies/Procedures Done in Hospital Allergies codeine Adverse Reaction (Verified 08/01/23 16:52) ANJELICA DREAMS DOES NOT LIKE TO TAKE IT Type of Care/Length of Stay Estimated LOS: Convalescent Care Less Than 30 days Type of Care Needed: Acute Rehab Rehab Potential: Fair Prognosis: Fair Additional Orders/Day of Discharge Day of Discharge: 08/06/23 Dietary and Speech Recommendations Dietitian Recommendations/Changes: Continue ensure plus high protein w/ medpass 120mL 3x/day Continue liberal regular diet - will request softer foods per pt request - add fortified oatmeal at breakfast, ensure pudding or magic cup w/ lunch and dinner for increased nutrition if consumed. Follow Up Care Please Follow Up With: Esme Andre MD When: Follow-up in 1 week from discharge Discharge Plan Admission Admit Date/Time: 08/01/23 19:05 Primary Reason for Your Visit: Cecal volvulus Attending Provider: Esme Andre Primary Care Provider: Ez Garcia Instructions Additional Instructions / Restrictions: Diet ? Start light with soups and soft bland foods. Refer to your transitional diet instruction sheet Activity ? You may drive in 5-7 days but not while taking narcotic pain medication. ? I encourage walking. You may go up steps, one at a time. ? Do not swim or use hot tubs for 2 weeks. Lifting ? You may lift up to 10 pounds for the first 2 weeks. You may advance to 20 pounds for the next 3 weeks. Dressings/Incision ? You may shower OVER your plastic dressings ? Do NOT tub bathe for 1 week ? When plastic dressings are removed, you will find steri strips. It is okay to continue showering with them in place, pat them dry. ? You may remove steri-strips after 1 week. We recommend getting them soaking wet for easier removal. Medications ? Anesthesia used during surgery and pain medications may cause constipation. I recommend initiating on the day of surgery a fiber supplement like, Metamucil, Citrucel, FiberCon, Benefiber, or a generic form of these medications. 1 heaping tablespoon in water daily. You may continue to utilize any bowel regimen or oral laxatives that you routinely take. ? As long as you are not intolerant to Tylenol, acetaminophen, ibuprofen, Motrin, Advil, Aleve, or similar medications, I would recommend transitioning to these [id number] medicines as soon as possible instead of continued use of narcotic pain medication. Follow up ? You should call [facility] soon after surgery, at [phone] option 1 to make a follow up appointment for 14 days after your surgery. Transitional Diet Beverages: ? Soda (cola, diet cola, lemon-[place], diet lemon-[place], kermit alejandra, diet kermit alejandra) ? Tea (hot or iced) ? Milk (low-fat, 2%, lactose free) ? Coffee ? Juice (without pulp) ? Oral Nutrition supplement Breakfast: ? Hot cereal (oatmeal or cream of wheat) ? Scrambled eggs ? Blueberry muffin ? Cold cereal (no whole grain cereals) ? [place] (white) Lunch or Dinner: Deli Items: Hot Items: [place] sandwich Roast [place] Tuna salad (sandwich or alone) Macaroni & Cheese Egg salad (sandwich or alone) Mashed potatoes & gravy Chicken salad (sandwich or alone) Carrots Green beans Cold Sides: Soups: Cottage cheese Vegetable soup Yogurt Chicken noodle Hardboiled egg Dessert: ? Gelatin, pudding, side kick (juice slushie) Discharge Orders/Prescriptions Prescriptions: New acetaminophen 500 mg Tablet 1,000 mg PO Q8 7 Days Qty: 42 0RF Ensure Plus High Protein 0.08 gram-1.5 kcal/mL Liquid 120 ml PO TIDCM Qty: 0 0RF nitrofurantoin monohyd/m-cryst [Macrobid] 100 mg capsule 100 mg PO Q12H 5 Days Qty: 10 0RF Rx Instructions: must administer with a meal/food Continued simvastatin 20 MG tablet 20 mg PO QHS benztropine 2 MG tablet 1 mg PO BID citalopram 10 mg tablet 10 mg PO DAILY Patient Comments: TAKE ONE 10MG AND ONE 20MG TABLET TOGETHER ONCE EVERY NIGHT FOR A TOTAL DOSE OF 30MG. alendronate 70 mg tablet 70 mg PO LEIWS omeprazole 40 mg capsule,delayed release(DR/EC) 40 mg PO DAILY pramipexole 0.125 mg tablet 0.125 mg PO TID Patient Comments: STARTED ON 07-20-23 Rx Instructions: TAKE ONE 0.125MG TABLET BY MOUTH THREE TIMES A DAY FOR 14 DAYS THEN STOP. THEN TAKE ONE 0.25MG TABLET BY MOUTH FOR THREE DAYS THEREAFTER. pramipexole 0.25 mg tablet 0.25 mg PO TID Patient Comments: START DATE: 08-03-23 rasagiline 1 mg tablet 1 mg PO DAILY citalopram 20 mg tablet 20 mg PO DAILY Rx Instructions: TAKE ONE 10MG AND ONE 20MG TABLET TOGETHER ONCE EVERY NIGHT FOR A TOTAL DOSE OF 30MG. valsartan 160 mg tablet 160 mg PO DAILY melatonin 5 mg tablet 10 mg PO QHS aspirin 81 MG tablet,chewable 81 mg PO DAILY Discontinued cephalexin 500 mg capsule 500 mg PO TID Qty: 15 0RF Patient Comments: STARTED ON 07-28-23 @4PM END DATE: 08-02-23 IN THE MORNING TIME Referrals / Follow Up: Ez Garcia MD [Primary Care Provider] - Disposition Disposition (needs filled in before D/C Order can be placed): Inpatient Rehab Unit/Facility Charges/Coding Visit Charges Inpatient E&M: 02765 Disch Hosp (no charge; post-op) (1) UTI (urinary tract infection) Qualifiers: Urinary tract infection type: site unspecified Hematuria presence: without hematuria Qualified Code(s): N39.0 - Urinary tract infection, site not specified
[2023-08-06 11:21] VITALS: BP 127/74; PULSE 69; RESP 16; TEMP 36.9; O2SAT 96
[2023-08-06] MEDS: 0.9% Normal Saline (1000mL) 1,000 ML 60 ML IV (12:22)
--- NOTE | 2023-08-06 12:32 | CASEMGMT ---
Social Work Patient has been accepted to Rehab Unit when medically ready. Patient is now medically ready and pt to be discharged to Rehab unit today, Isabel notified. Shantel Enamorado [employer], [employer] SUB[employer]ER
--- NOTE | 2023-08-06 12:41 | DS.PCM_ITS ---
Providers Date of Admission: 08/01/23 Primary Care Physician: Dr. Ez Garcia MD Reason For Visit: CECAL VOLVULUS Diagnosis Discharge Diagnosis (1) UTI (urinary tract infection): Status: Acute Code(s): N39.0 - Urinary tract infection, site not specified Qualifiers: Urinary tract infection type: site unspecified Hematuria presence: without hematuria Qualified Code(s): N39.0 - Urinary tract infection, site not specified Plan: Start Macrobid for antibiotics x 5 days. Will await cultures to see if antibiotics will need to be changed. (2) S/P right hemicolectomy: Status: Acute Code(s): Z90.49 - Acquired absence of other specified parts of digestive tract Plan: Continue transitional diet until follow-up with Dr. Andre No lifting greater than 10 pounds until follow-up with Dr. Andre Follow-up with Dr. Andre in 1 week Medications at Discharge Home Medications benztropine 2 mg tablet 1 mg PO BID PARKINSONS 07/20/16 simvastatin 20 mg tablet 20 mg PO QHS CHOLESTEROL 07/20/16 alendronate 70 mg tablet 70 mg PO LEWIS OSTEOPEROSIS 08/01/23 aspirin 81 mg chewable tablet 81 mg PO DAILY HEART HEALTH 08/01/23 citalopram 10 mg tablet 10 mg PO DAILY DEPRESSION 08/01/23 citalopram 20 mg tablet 20 mg PO DAILY DEPRESSION 08/01/23 melatonin 5 mg tablet 10 mg PO QHS SLEEP 08/01/23 omeprazole 40 mg capsule,delayed release 40 mg PO DAILY ACID REFLUX 08/01/23 pramipexole 0.125 mg tablet 0.125 mg PO TID PARKINSONS 08/01/23 pramipexole 0.25 mg tablet 0.25 mg PO TID PAKINSONS 08/01/23 rasagiline 1 mg tablet 1 mg PO DAILY PARKINSONS 08/01/23 valsartan 160 mg tablet 160 mg PO DAILY BLOOD PRESSURE 08/01/23 acetaminophen 500 mg tablet 1,000 mg (2 x 500 mg) PO Q8 7 days #42 tabs 08/06/23 food supplemt, lactose-reduced 0.08 gram-1.5 kcal/mL oral liquid (Ensure Plus High Protein) 120 ml PO TIDCM #0 mL 08/06/23 nitrofurantoin monohydrate/macrocrystals 100 mg capsule (Macrobid) 100 mg PO Q12H 5 days #10 caps 08/06/23 Hospital Course Operations colectomy (Open right hemicolectomy) Summary of Care Provided Minutes Spent on Discharge: 35 Hospital Course: Patient is a 73 y/o F who presented with abdominal pain, nausea and vomiting. 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 Dr. Ander performed an open right hemicolectomy on 08/01/23. Patient tolerated the procedure well. Patient's bowel function was slow to return. POD #3 patient passed flatus and a diet was started. Patient had challenges with hallucinations during the night time while in the hospital. Patient was on Morphine, which was stopped in case this was the cause of the hallucinations. Patient also had a urinalysis as she had been treated for a UTI just prior to coming into the hospital. Patient's urine was found to be positive for a urinary tract infection. She was started on Zosyn on 08/05. Patient was accepted to the [facility] rehab facility for rehabilitation as patient has a history of Parkinson's disease and is mostly wheelchair bound. Upon discharge, patient has been having flatus and bowel movements. She has been tolerating her transitional diet. She denies any abdominal pain/discomfort. She denies nausea, vomiting. She notes overnight last night her hallucinations were better. She will continue on her transitional diet until her follow-up with Dr. Andre. She will need to follow-up with Dr. Andre in 1 week. Weight / BMI Weight Weight: 137 lb 3.204 oz Body Mass Index (BMI) 25.0 ABG / Lab / Microbiology Data 08/06/23 06:20 08/06/23 06:20 Laboratory: Laboratory Results - last 24 hr 08/04/23 06:25: Diff Path Review Reviewed 08/05/23 15:40: Urine Color Yellow, Urine Clarity Sl. Cloudy, Urine pH 5.0, Ur Specific [place] 1.030, Urine Protein 30 H, Urine Glucose (UA) Normal, Urine Ketones 15 H, Urine Occult Blood 10 H, Urine Nitrite Positive H, Urine Bilirubin 1 H, Urine Urobilinogen 1 H, Ur Leukocyte Esterase 500 H, Urine RBC 0-5 SEEN, Ur ine WBC 25-50 SEEN, Ur Squamous Epith Cells 0-5 SEEN, Amorphous Sediment 1+ URATE, Urine Bacteria 3+, Urine Mucus 0 SEEN 08/06/23 06:20: WBC 6.8, RBC 3.18 L, Hgb 9.1 L, Hct 28.1 L, MCV 88.4, MCH 28.6, MCHC 32.4, RDW Std Deviation 45.1 H, RDW Coeff of Addie 13.9, Plt Count 279, MPV 10.1, Immature Gran % (Auto) 0.400, Neut % (Auto) 66.5, Lymph % (Auto) 19.4, [place] % (Auto) 10.2 H, Eos % (Auto) 3.2, Baso % (Auto) 0.3, Absolute Neuts (auto) 4.5, Absolute Lymphs (auto) 1.33, Nucleated RBC % 0, Sodium 140, Potassium 3.5, Chloride 112 H, Carbon Dioxide 23.0, Anion Gap 5, BUN 18, Creatinine 0.74, Estim Creat Clear Calc 40.22, Est GFR (MDRD) Af Amer 100, Est GFR (MDRD) Non-Af 82, BUN/Creatinine Ratio 24.5 H, Glucose 103, Calcium 8.0 L Microbiology: Microbiology 08/05/23 15:40 Urine, Clean Catch Urine Culture - Preliminary Culture exhibits no growth. D/C Instructions Discharge Diet: - (Transitional diet) Lifting Restrictions: 10 pounds until folow-up Call your doctor if your incision/area has: Continuous Slow Oozing, Sudden Increased Bleeding, Increased Pain/ Swelling, Increased Redness, Foul Smelling Discharge and Swelling at the incision site Call your doctor if you observe: Fever of 101 or Higher Cleanse incision/area with: Soap & Water Please Follow Up With: Esme Andre MD When: Follow-up in 1 week. Call our office to schedule an appointment at [phone]. Meaningful Use Info Meaningful Use Diagnoses (Choose all that apply): None applicable Discharge Plan Admission Admit Date/Time: 08/01/23 19:05 Primary Reason for Your Visit: Cecal volvulus Attending Provider: Esme Andre Primary Care Provider: Ez Garcia Instructions Additional Instructions / Restrictions: Diet ? Start light with soups and soft bland foods. Refer to your transitional diet instruction sheet Activity ? You may drive in 5-7 days but not while taking narcotic pain medication. ? I encourage walking. You may go up steps, one at a time. ? Do not swim or use hot tubs for 2 weeks. Lifting ? You may lift up to 10 pounds for the first 2 weeks. You may advance to 20 pounds for the next 3 weeks. Dressings/Incision ? You may shower OVER your plastic dressings ? Do NOT tub bathe for 1 week ? When plastic dressings are removed, you will find steri strips. It is okay to continue showering with them in place, pat them dry. ? You may remove steri-strips after 1 week. We recommend getting them soaking wet for easier removal. Medications ? Anesthesia used during surgery and pain medications may cause constipation. I recommend initiating on the day of surgery a fiber supplement like, Metamucil, Citrucel, FiberCon, Benefiber, or a generic form of these medications. 1 heaping tablespoon in water daily. You may continue to utilize any bowel regimen or oral laxatives that you routinely take. ? As long as you are not intolerant to Tylenol, acetaminophen, ibuprofen, Motrin, Advil, Aleve, or similar medications, I would recommend transitioning to these [id number] medicines as soon as possible instead of continued use of narcotic pain medication. Follow up ? You should call [facility] soon after surgery, at [phone] option 1 to make a follow up appointment for 14 days after your surgery. Transitional Diet Beverages: ? Soda (cola, diet cola, lemon-[place], diet lemon-[place], kermit alejandra, diet kermit alejandra) ? Tea (hot or iced) ? Milk (low-fat, 2%, lactose free) ? Coffee ? Juice (without pulp) ? Oral Nutrition supplement Breakfast: ? Hot cereal (oatmeal or cream of wheat) ? Scrambled eggs ? Blueberry muffin ? Cold cereal (no whole grain cereals) ? [place] (white) Lunch or Dinner: Deli Items: Hot Items: [place] sandwich Roast [place] Tuna salad (sandwich or alone) Macaroni & Cheese Egg salad (sandwich or alone) Mashed potatoes & gravy Chicken salad (sandwich or alone) Carrots Green beans Cold Sides: Soups: Cottage cheese Vegetable soup Yogurt Chicken noodle Hardboiled egg Dessert: ? Gelatin, pudding, side kick (juice slushie) Discharge Orders/Prescriptions Prescriptions: New acetaminophen 500 mg Tablet 1,000 mg PO Q8 7 Days Qty: 42 0RF Ensure Plus High Protein 0.08 gram-1.5 kcal/mL Liquid 120 ml PO TIDCM Qty: 0 0RF nitrofurantoin monohyd/m-cryst [Macrobid] 100 mg capsule 100 mg PO Q12H 5 Days Qty: 10 0RF Rx Instructions: must administer with a meal/food Continued simvastatin 20 MG tablet 20 mg PO QHS benztropine 2 MG tablet 1 mg PO BID citalopram 10 mg tablet 10 mg PO DAILY Patient Comments: TAKE ONE 10MG AND ONE 20MG TABLET TOGETHER ONCE EVERY NIGHT FOR A TOTAL DOSE OF 30MG. alendronate 70 mg tablet 70 mg PO LEWIS omeprazole 40 mg capsule,delayed release(DR/EC) 40 mg PO DAILY pramipexole 0.125 mg tablet 0.125 mg PO TID Patient Comments: STARTED ON 07-20-23 Rx Instructions: TAKE ONE 0.125MG TABLET BY MOUTH THREE TIMES A DAY FOR 14 DAYS THEN STOP. THEN TAKE ONE 0.25MG TABLET BY MOUTH FOR THREE DAYS THEREAFTER. pramipexole 0.25 mg tablet 0.25 mg PO TID Patient Comments: START DATE: 08-03-23 rasagiline 1 mg tablet 1 mg PO DAILY citalopram 20 mg tablet 20 mg PO DAILY Rx Instructions: TAKE ONE 10MG AND ONE 20MG TABLET TOGETHER ONCE EVERY NIGHT FOR A TOTAL DOSE OF 30MG. valsartan 160 mg tablet 160 mg PO DAILY melatonin 5 mg tablet 10 mg PO QHS aspirin 81 MG tablet,chewable 81 mg PO DAILY Discontinued cephalexin 500 mg capsule 500 mg PO TID Qty: 15 0RF Patient Comments: STARTED ON 07-28-23 @4PM END DATE: 08-02-23 IN THE MORNING TIME Referrals / Follow Up: Ez Garcia MD [Primary Care Provider] - Disposition Disposition (needs filled in before D/C Order can be placed): Inpatient Rehab U nit/Facility Charges/Coding Visit Charges Inpatient E&M: 45050 Disch Hosp (no charge; post-op)
== END 2023-08-06 14:24 | DRG 330 ==
LOC: ED 18:31 → SDC 18:50 → AC 18:50 → SDC 20:34 → MS3 20:34
PROVIDERS: Physician Assistant; Surgery; Admitting Provider Surgery; Emergency Provider Emergency Medicine; PCP Family Medicine; Referring Provider Surgery; Visit Provider Surgery
PROC: 0DTF0ZZ Resection of Right Large Intestine, Open Approach (ICD-10-PCS; principal; 2023-08-01 19:30)
DX: K56.2 Volvulus (principal); R44.3 Hallucinations, unspecified; F05 Delirium due to known physiological condition; N39.0 Urinary tract infection, site not specified; G20 Parkinson's disease; W19.XXXD Unspecified fall, subsequent encounter; S01.01XD Laceration without foreign body of scalp, subsequent encounter; Z99.3 Dependence on wheelchair; Z79.83 Long term (current) use of bisphosphonates; Z79.82 Long term (current) use of aspirin; Z79.899 Other long term (current) drug therapy
CPT/HCPCS: 36415; 51702; 73030; 73070; 74018; 74176; 80048; 80053; 81001; 83690; 85025; 85610; 85730; 86850; 86900; 86901; 87077; 87086; 87088; 87186; 88307; 93005; 94668; 97110; 97162; 97166; 97530; 97535; 97802; 99285; J7030; J7040; J7120; A4216; J2405

== ENCOUNTER 2023-08-06 14:30 | Inpatient (IN) | payer MEDICARE, BC, SELFPAY ==
[2023-08-06 15:01] VITALS: BP 151/74; PULSE 73; RESP 14; TEMP 36.6; O2SAT 97; BMI 25.2
[2023-08-06] MEDS: Ensure Plus High Protein 120 ML LIQUID PO (18:15)
[2023-08-06] MEDS: Nitrofurantoin Macrocrystals 100 MG Capsule PO (18:15)
[2023-08-06 19:47] VITALS: PULSE 73; RESP 14; O2SAT 98
[2023-08-06 20:30] VITALS: BP 130/78; PULSE 80; RESP 18; TEMP 36.5; O2SAT 95
[2023-08-06] MEDS: Acetaminophen 500 MG Tablet 1000 MG PO (21:23)
[2023-08-06] MEDS: MELATONIN 3 MG TABLET PO (21:24)
[2023-08-06] MEDS: Pramipexole Di-HCl 0.25 MG Tablet PO (21:24)
[2023-08-06] MEDS: Benztropine 2 MG Tablet 1 MG PO (21:24)
[2023-08-06] MEDS: Atorvastatin Calcium 10 MG Tablet PO (21:41)
--- NOTE | 2023-08-07 02:18 | NURSING ---
Reviewed and agree with David AQUINO, documentation and assessment charting.
[2023-08-07 05:59] LABS: Hematocrit 29.1 % (37-47); Hemoglobin 9.1 g/dL (12.0-15.0); Mean Corp Hgb Conc 31.3 g/dL (32-36); Mean Corpuscular Volume 89.5 fL (81-99); Mean Platelet Vol. 9.9 fl (6.2-12.0); Platelet Count 295 K/mm3 (150-450); RBC Distribution Width CV 14.2 % (11.6-14.6); RBC Distribution Width SD 46.6 fl (35.1-43.9); Red Blood Count 3.25 M/mm3 (4.2-5.4); White Blood Count 5.3 K/mm3 (4.4-11.0)
[2023-08-07] MEDS: Acetaminophen 500 MG Tablet 1000 MG PO ×3 (05:59→21:27)
[2023-08-07] MEDS: Pramipexole Di-HCl 0.25 MG Tablet PO ×3 (05:59→21:27)
[2023-08-07 06:48] LABS: ALB/GLOB Ratio 0.7 RATIO (0.9-2.4); AST(SGOT) 17 U/L (15-37); Alanine Aminotransfer ALT/SGPT 25 U/L (13-56); Albumin, Serum 2.3 g/dL (3.2-5.0); Alkaline Phosphatase 78 U/L (45-117); Anion Gap 1 (5-15); BUN 16 mg/dL (7-18); BUN/Creat Ratio 24.8 RATIO (10-20); Calcium,Total 8.3 mg/dL (8.5-10.1); Chloride 113 mmol/L (98-107); Creatinine, Serum 0.64 mg/dL (0.55-1.02); EST Glomerular Filtration Rate 96 mL/min (>60); Est Glom Filt Rate - Afr Amer 116 mL/min (>60); Estimated Creatinine Clearance 40.22 ml/min; Globulin 3.1 g/dL (2.2-4.2); Glucose 100 mg/dL (74-106); Magnesium 1.6 mg/dL (1.6-2.6); Phosphorus 3.3 mg/dL (2.5-4.9); Potassium 4.1 mmol/L (3.5-5.1); Protein, Total 5.4 g/dL (6.4-8.2); Sodium Level 142 mmol/L (136-145)
[2023-08-07 07:57] VITALS: BP 157/81; PULSE 83; RESP 17; TEMP 36.2; O2SAT 97
[2023-08-07] MEDS: Nitrofurantoin Macrocrystals 100 MG Capsule PO ×2 (09:49→17:27)
[2023-08-07] MEDS: Benztropine 2 MG Tablet 1 MG PO ×2 (09:49→21:27)
[2023-08-07] MEDS: Pantoprazole Sodium 40 MG Tablet PO (09:49)
[2023-08-07] MEDS: Aspirin 81 MG TAB.CHEW PO (09:49)
[2023-08-07] MEDS: Losartan Potassium 50 MG Tablet PO (09:49)
[2023-08-07] MEDS: Citalopram 10 MG Tablet 30 MG PO (09:51)
[2023-08-07] MEDS: Ensure Plus High Protein 120 ML LIQUID PO ×2 (09:52→17:28)
[2023-08-07] MEDS: Enoxaparin 40 MG/0.4 ML Syringe SC (09:58)
[2023-08-07] MEDS: busPIRone 5 MG Tablet PO ×2 (11:10→21:28)
[2023-08-07 11:15] VITALS: PULSE 66; RESP 18; O2SAT 96
[2023-08-07] MEDS: Menthol/Lanolin/Calamine/Znox 113 GM Tube 1 APPLIC TOPICAL ×2 (12:55→21:29)
--- NOTE | 2023-08-07 15:11 | NURSING ---
CALLED TO PT ROOM BY THERAPY. PT STILL HAD PIECES OF A SANDWICH IN HER MOUTH FROM LUNCH. CLEANED OUT MOST OF FOOD. PT ASKED IF DENTURES COULD BE TAKEN OUT. HELPED PT WITH DENTURES AND PLACED IN DENTURE CUP WITH DENTURE TAB. PT AND THIS NURSE FINISHED CLEANING PT MOUTH OUT. PT IS NOT EATING MUCH, ATE 25% OR LESS FOR BREAKFAST AND LUNCH. ASKED PT EACH TIME IF SHE WOULD LIKE SOMETHING ELSE, PT TRIED ANOTHER BREAKFAST BUT ATE ONLY 3 BITES. REFUSED TO TRY SOME THING ELSE ON LUNCH. DIETITIAN DID COME UP TO SEE PT. RN AWARE
[2023-08-07 17:33] VITALS: BP 155/91; PULSE 68; RESP 16; TEMP 36.8; O2SAT 95
[2023-08-07 19:52] VITALS: BP 143/80; PULSE 73; RESP 18; TEMP 36.6; O2SAT 96
[2023-08-07] MEDS: Atorvastatin Calcium 10 MG Tablet PO (21:28)
[2023-08-07] MEDS: MELATONIN 3 MG TABLET PO (21:28)
[2023-08-08] MEDS: traMADol 50 MG Tablet PO (03:51)
[2023-08-08] MEDS: Acetaminophen 500 MG Tablet 1000 MG PO ×3 (05:32→23:14)
[2023-08-08] MEDS: Pramipexole Di-HCl 0.25 MG Tablet PO ×3 (05:32→23:14)
[2023-08-08 07:16] VITALS: BP 176/87; PULSE 86; RESP 17; TEMP 36.5; O2SAT 98
[2023-08-08 08:04] VITALS: BP 166/86
[2023-08-08] MEDS: Aspirin 81 MG TAB.CHEW PO (08:45)
[2023-08-08] MEDS: Nitrofurantoin Macrocrystals 100 MG Capsule PO ×2 (08:47→17:22)
[2023-08-08] MEDS: Ensure Plus High Protein 120 ML LIQUID PO ×3 (08:47→17:24)
[2023-08-08] MEDS: busPIRone 5 MG Tablet PO ×2 (08:48→23:14)
[2023-08-08] MEDS: Citalopram 10 MG Tablet 30 MG PO (08:49)
[2023-08-08] MEDS: Losartan Potassium 50 MG Tablet PO (08:49)
[2023-08-08] MEDS: Pantoprazole Sodium 40 MG Tablet PO (08:50)
[2023-08-08] MEDS: Enoxaparin 40 MG/0.4 ML Syringe SC (08:58)
--- NOTE | 2023-08-08 09:40 | PCM.HP.STD ---
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 She had not had a bowel movement for 5 days. She had been seen in the ED on 07/28/2023 for a scalp laceration due to a fall. She uses a WC the majority of the time. 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 She was admitted to the hospital on Dr. Andre's service. NG was placed in the ED and she was started on Zosyn. She was taken to surgery on the at approximately 7PM and underwent an open R hemicolectomy. She was started on clear liquids on 08/04/23. She had some hallucinations and confusion in the hospital at night that was presumed to be due to MS. She was transitioned to Ibuprofen and Tylenol for pain. She continued to have delirium following the discontinuation of the narcotics. A UA was checked on 08/05/2023 and it was consistent with catheter induced urinary tract infection. Urine culture was positive for E. coli which was resistant to mamie quinolones and ampicillin. She was placed on Macrodantin when the culture was resulted. She was transferred to the acute inpatient rehab unit at [facility] on 08/06/2023 for 3 hours of therapy daily to restore function/independence at or near her prior level. She had been living by herself but recently has had some falls and family was concerned. They were investigating possible assisted living situations for her. Afebrile VSS -blood pressure has been mildly elevated since arrival on rehab and the therapists and nursing tell me she is quite anxious. Heart rate is within normal limits. Maintaining appropriate oxygen saturation on RA-96 to 98%. Oral intake is poor. She is only taking 25 to 49% of her diet. Fluid intake yesterday was 1155. Weight is stable. Discussed with nursing - I am told she is quite anxious. She cat naps at night but, is not sleeping well and this is a chronic problem for her. Reviewed the PT/OT/ST notes - After watching her eat her lunch today the ST downgraded her diet to pureed........she chew and chews but, she is not swallowing. she will continue thin liquids. Medication list reviewed. She was only recently started on pramipexole. She has had 1 dose of Tramadol since admission to rehab and that was today. She was admitted to [facility] in 2016 for acute encephalopathy and she had experienced one year prior when she lived in [place]. During that admission she had an MRI of the brain that showed involutional changes only. [facility] Medical History (Updated 08/09/23 @ 13:[address] Noemy Shah DO) Alcohol use Anxiety and depression Dyslipidemia GERD without esophagitis History of 1 Hypertension Parkinson disease Home Medications benztropine 2 mg tablet 1 mg PO BID PARKINSONS 07/20/16 [History Last Taken 08/06/23 08:10 1 mg] simvastatin 20 mg tablet 20 mg PO QHS CHOLESTEROL 07/20/16 [History Last Taken 07/31/23] alendronate 70 mg tablet 70 mg PO LEWIS OSTEOPEROSIS 08/01/23 [History Last Taken 07/28/23] aspirin 81 mg chewable tablet 81 mg PO DAILY HEART HEALTH 08/01/23 [History Last Taken 08/01/23] citalopram 10 mg tablet 10 mg PO DAILY DEPRESSION 08/01/23 [History Last Taken 08/01/23] citalopram 20 mg tablet 20 mg PO DAILY DEPRESSION 08/01/23 [History Last Taken 08/01/23] melatonin 5 mg tablet 10 mg PO QHS SLEEP 08/01/23 [History Last Taken 07/31/23] omeprazole 40 mg capsule,delayed release 40 mg PO DAILY ACID REFLUX 08/01/23 [History Last Taken 08/01/23] pramipexole 0.25 mg tablet 0.25 mg PO TID PAKINSONS 08/01/23 [History Last Taken Unknown] rasagiline 1 mg tablet 1 mg PO DAILY PARKINSONS 08/01/23 [History Last Taken 08/01/23] valsartan 160 mg tablet 160 mg PO DAILY BLOOD PRESSURE 08/01/23 [History Last Taken 08/01/23] acetaminophen 500 mg tablet 1,000 mg (2 x 500 mg) PO Q8 pain 7 days #42 tabs 08/06/23 [Rx Last Taken 08/06/23 13:30 1,000 mg] food supplemt, lactose-reduced 0.08 gram-1.5 kcal/mL oral liquid (Ensure Plus High Protein) 120 ml PO TIDCM supplement #0 mL 08/06/23 [Rx Last Taken 08/06/23 12:00 120 mL] nitrofurantoin monohydrate/macrocrystals 100 mg capsule (Macrobid) 100 mg PO Q12H uti 5 days #10 caps 08/06/23 [Rx Last Taken Unknown] Allergy/AdvReac Type Severity Reaction Status Date / Time codeine AdvReac CRAZY Verified 08/01/23 16:52 DREAMS DOES NOT LIKE TO TAKE IT Family History (Updated 08/09/23 @ 12:[address] Noemy Shah DO) Father , at 51 YOA due to SD CAD (coronary artery disease) Mother , she at 58 YOA following CABG CAD (coronary artery disease) Sister Hypertension Surgical History (Updated 08/09/23 @ 12:[address] Noemy Shah DO) History of tubal ligation S/P right hemicolectomy Social History (Updated 08/09/23 @ 12:[address] Noemy Shah DO) household members: none housing: apartment number of children: 2 current occupational status: retired Smoking Status: Never smoker alcohol intake: current alcohol intake frequency: other Alcohol type: wine details: She does not drink often and she has at most 1 glass of wine a day substance use type: does not use ROS Review of Systems ROS Unobtainable: other Details: Hx was obtained.....she has some confusion about some things. She was oriented to person, place, month and year. Constitutional Constitutional: Reports anorexia, difficulty sleeping, frequent falls and weakness Eyes Eyes: Reports blurry vision and requires corrective lenses; Denies eye pain ENT HEENT: Reports change in voice, dry mouth and other Details: She has dysphagia and is currently on pureed textures and thin liquids. ; Denies abnormal hearing, headache(s), loss taste/smell, nasal discharge, odynophagia, otalgia, post nasal drip or sinus pressure Cardiovascular Cardiovascular: Reports abdominal pain, easily tiring during activity, hypertension and leg edema; Denies dizziness, dyspnea at rest, dyspnea on exertion or nausea Respiratory/Chest Respiratory/Chest: Reports difficulty clearing secretions; Denies chest congestion, cough, tachypnea, wheezing or witnessed apneas Gastrointestinal Gastrointestinal: Reports abdominal pain, change in bowel habits, chewing difficulty and dysphagia; Denies belching or weight changes Genitourinary Genitourinary: Denies dysuria or flank pain Musculoskeletal Musculoskeletal: Reports abnormal gait, difficulty walking, joint stiffness and muscle weakness; Denies extremity pain or myalgias Integumentary Integumentary: Reports dry skin and rash; Denies alopecia, change in hair, hirsutism, jaundice or sores Neurologic Neurologic: Reports abnormal speech, behavior changes, confusion, frequent falls, memory loss, tremor(s) and weakness; Denies disequilibrium, focal weakness, headache(s), paresthesias or seizures Psychiatric Psychiatric: Reports abnormal sleep pattern, anxiety, cognitive impairment, confusion, depression, hallucinations and memory loss; Denies auditory hallucinations Endocrine Endocrinology: Denies palpitations, polydipsia, polyphagia or polyuria Hematologic/Lymphatic Hematologic/Lymphatic: Reports anemia Allergic/Immunologic Allergic/Immunologic: Denies itchy eyes, seasonal rhinorrhea, rhinitis, hives, eczemia, wheezing or asthma Vital Signs Vital Signs Vital Signs: 08/07/23 11:15 08/07/23 17:33 08/07/23 19:52 Temperature 98.2 F Temperature Source Temporal Pulse Rate 66 68 Pulse Strength Respiratory Rate 18 16 Respiratory Effort Normal Normal Non-Labored Respiratory Depth Normal Normal Respiratory Pattern Normal Normal Blood Pressure 155/91 H Blood Pressure Mean 112 Blood Pressure Source Monitor Blood Pressure Position Semi-Fowlers Blood Pressure Location Left Arm Pulse Ox 96 95 Oxygen Delivery Method Room Air Room Air Room Air 08/07/23 19:52 08/07/23 19:52 08/08/23 07:16 Temperature 97.9 F 97.7 F L Temperature Source Oral Temporal Pulse Rate 73 86 Pulse Strength Normal (2+) Respiratory Rate 18 17 Respiratory Effort Respiratory Depth Respiratory Pattern Blood Pressure 143/80 H 176/87 H Blood Pressure Mean 101 116 Blood Pressure Source Monitor Monitor Blood Pressure Position Semi-Fowlers Semi-Fowlers Blood Pressure Location Left Arm Right Arm Pulse Ox 96 98 Oxygen Delivery Method Room Air Room Air 08/08/23 08:04 08/08/23 08:04 Temperature Temperature Source Pulse Rate Pulse Strength Normal (2+) Respiratory Rate Respiratory Effort Respiratory Depth Respiratory Pattern Blood Pressure 166/86 H Blood Pressure Mean 112 Blood Pressure Source Monitor Blood Pressure Position Semi-Fowlers Blood Pressure Location Left Arm Pulse Ox Oxygen Delivery Method Weight Weight: 138 lb 0.15 oz Body Mass Index (BMI) 25.2 Physical Exam Const alert, oriented x3 and no apparent distress Constitutional Narrative: She has a masked facies and soft voice with poor projection. She has decreased blinking and can not open her mouth wide. General Appearance: cooperative, well kempt, anxious and frail HEENT normocephalic HEENT Narrative: The large laceration on the scalp is healing with no dehiscence. Abe have been removed. No longer has any bruising. The tip of the chin is sore from striking it on the toilet recently when she fell had sustained a 12cm Laceration of her scalp. Face and Sinus: sinuses nontender Nose: external nose normal External Ear: external ears normal Mouth: other Other Details: She is edentulous. No buccal lesions. Difficulty opening her mouth wide. She has upper and lower dentures but the lower dentures do not fit well Eyes PERRL, EOMs intact bilaterally, conjunctivae normal and no scleral icterus Eyes Narrative: Decreased blink General Eye: normal appearance of both eyes; Negative for exophthalmos or proptosis Neck No nuchal rigidity, no lymphadenopathy, No no JVD, No nodes and no carotid bruits General: trachea midline Chest Chest: symmetrical chest wall rise Resp normal respiratory effort, normal air movement, no retractions, no use of accessory muscles and clear to auscultation bilaterally Cardio regular rate, regular rhythm, no murmurs, no rub and no gallops Rate: Negative for bradycardia or tachycardic Bruits: Negative for carotid bruit or abdominal aortic bruit GI normal to inspection, nondistended, normoactive bowel sounds, soft to palpation and non-tender GI Narrative: The abdominal incision is healing well with no dehiscence. No zach-incisional erythema, no DC. she has a rash around the area where the dressing would have been. It is small red papules with satellite lesions. suspect it may be a contact dermatitis from the tape but, there may be a component of yeast.......it is dry and mot moist at present and she denies pruruitus no CVA tenderness Narrative: Had a Baig while she was on the acute side of the hospital and got a UTI and is currently on Macrodantin. She has had 3 PVR's Mildly greater than 200 but, the most recent PVR was 68 Back/Spine no CVA tenderness Extremity no calf tenderness General Extremity: edema bilateral (mostly at the ankles.) lower extremity Skin no jaundice General Skin Exam: no breakdown Rashes: rashes noted see the abd exam for details on the rash Wound Narrative: See abd exam for description of the incision Hair: normal Neuro oriented x3, CN's II-XII intact bilaterally, moves all extremities and no focal motor deficits Neuro Narrative: Generalized weakness. Resting, pill rolling, tremor. Masked facies and decreased blink. Bradykinesia. Not rigid but, with stiff joints. the ankles are very stiff and resist passive ROM. She is able to plantar flex and dorsiflex a little. Tells me that she very rarely uses a WC and she walks at home. She has a cane but, she does not use it. She tells me that until the past 2 weeks she had been going to [place] for exercise......possibly their Parkinson's program. Her voice is very soft and difficult to hear and does not project well. She could not open her mouth wide for me to examine. Slow speech Psych cooperative Psych Narrative: She was having a lot of anxiety but, she was started on Buspar and the anxiety has lessened considerably. She has visual hallucinations.......sees people, mostly shadowy and also animals in her house........she is aware they really are not there. She denies any auditory hallucinations. Appearance: appropriate and well kempt Attitude: engaged Activity / Motor Behavior: appropriate eye contact; Negative for psychomotor agitation, fidgetting, hyperactive, restless or mannerisms Speech: slow Mood & Affect: euthymic mood Thought Content: No suicidality, No homicidality, No phobia(s) and hallucination(s) Results Lab / Micro Data 08/07/23 05:43 08/07/23 05:43 Assessment & Plan Assessment/Plan (1) Physical debility: (2) Generalized muscle weakness: (3) Cecal volvulus: (4) S/P right hemicolectomy: (5) Acute on chronic anemia: (6) Parkinsons disease: (7) Anxiety and depression: (8) UTI (urinary tract infection): QUALIFIERS: Urinary tract infection type: site unspecified Hematuria presence: without hematuria Qualified Code(s): N39.0 - Urinary tract infection, site not specified (9) Hypertension: QUALIFIERS: Hypertension type: primary hypertension Qualified Code(s): I10 - Essential (primary) hypertension (10) Dyslipidemia: (11) GERD without esophagitis: (12) Dementia: QUALIFIERS: Dementia type: Parkinson's disease Dementia severity: mild Dementia behavioral or psychological symptom: with anxiety Qualified Code(s): G20 - Parkinson's disease; F02.A4 - Dementia in other diseases classified elsewhere, mild, with anxiety (13) Hallucination, visual: PLAN: Plan PLAN PT for gait stability OT for ADL's ST for evaluation Analgesics as needed Bowel protocol Fall precautions Assess for Anxiety/Depression GI prophylaxis with Protonix DVT prophylaxis with enoxaparin 40 mg subcu daily Follow up with Dr. Andre, PCP and neurology following DC from IP Rehab AM lab including CMP, CBC, Mag and Phos -personally reviewed Overnight trending pulse ox BuSpar 5 mg twice daily added to her drug regimen for anxiety control and it has helped. We will try and get records from her neurologist and her PCP She tells me that she no longer drives. She does her own laundry and prepares her own meals.......her son bought her a lot of frozen dinners. Her apt is all on 1 floor. Sister helps her and drives her when she needs to go out. She has a son and a daughter that both live out of state. Charges/Coding Visit Charges Inpatient E&M: 47969 Init Hosp L3
[2023-08-08] MEDS: Benztropine 2 MG Tablet 1 MG PO ×2 (10:17→23:13)
[2023-08-08 10:20] VITALS: PULSE 74; RESP 16; O2SAT 97
--- NOTE | 2023-08-08 10:26 | REHABEVAL_ITS ---
Admission Information Primary Diagnosis:: Physical debility secondary to cecal volvulus/open right hemicolectomy, recent fall with 12cm scalp laceration and generalized deconditioning. Status Changes from Prescreening?: No changes Identified Actual Problem List:: Infection, UTI, Falls, Skin Intergrity, Pain, ALteration in Cmfrt, Cognitve Impr/Memory Loss, Depression, Alteration in Sleep, Alteration in Nutrition, Mobility Impaired, Self Care Deficit, Know.Dfct of Medicaitons, Fluid Change-Dehydration and Alteration-Leisure Activ. Potential Problem List:: DVT, Bleeding, Infection, UTI, Aspiration, Falls, Skin Integrity and Depression Risk of Complications DVT: LMWH and BRENDA Hose Bleeding: Monitor Lab Values, Nursing to Teach Precautions for anti-coagulation therapy., Wound, if applicable, to be assessed every shift. and Stroke patients assessed for lethargy or change in status. Infection: Clinical Staff to Monitor for S/S of infection: and S/S of infection include fever, redness, warmth, etc. Urinary Tract Infection: Monitor for frequency, burning, discomfort, or incontinence. and Nursing will obtain urine sample for urinalysis and C&S when o rdered. Aspiration: Clinical staff will monitor for coughing, drooling, congestion., Speech will evaluate swallowing and dsyphasia. and Nursing will monitor patient swallowing during meals. Falls: Patient will be evaluated for Fall Precautions and Patient will be placed on Fall Precautions as indicated per protocol. Skin Breakdown: Nursing will assess skin daily using assessment tool. and Nursing will place on Skin Breakdown Precautions as indicated. Pain: Clinical staff will assess patient's pain level per protocol., Medications will be given, if needed, and the pain level reassessed. and Other methods: Massage, distraction, decrease stimulus, etc. used PRN. Plan of Care Patient requires physician specializing in physical medicine and rehab oversight to provide close medical supervision of rehab issues including: Pain Management, Sleep Problems, Bowel and Bladder, Medical and co-morbidity Management, DVT prophylaxis, Rehabilitation Leadership and Coordination of treatment team Patient needs Physical Therapy: For a minimum of 1 hour and At least 5 out of 7 days Patient needs Physical Therapy to improve:: Mobility, Strengthening, Transfers, Stretching, ROM, Endurance, Stairs, Gait and Balance Patient needs Occupational Therapy: For a minimum of 1 hour and At least 5 out of 7 days Patient needs Occupational Therapy to improve ADL's incl.: Eating, Grooming, Bathing, Dressing, Toileting, Toilet transfers, Community Reintegration, Higher functioning activities, Household tasks, Adaptive Equipment, Splinting and Other activities as determined Patient requires speech therapy: For a minimum of 1 hour and At least 5 out of 7 days Patient requires speech therapy for: Swallowing, Cognition, Language Skills and Compensatory Strategies Patient requires 24/ Rehabilitation Nursing for: Pain Issues, Identifying and preventing risk factors, Monitoring and reporting current medical conditions, Assisting with ambulation, transfer, and all ADL's, Teaching patients about disease process and medications, Family teaching, Providing safe environment, Bowel and Bladder Issues, Skin integrity and Medication Management Patient needs Crimp Setter/ Case Management for: Discharge Planning, Arranging Home Equipment or Services and Family Interventions Patient needs Dietary and Nutrition Services for: Adequate Nutrition, Nutritional Supplements and Nutritional Education Goals Patient will remain: free from falls Patient will perform bed mobility at: MOD I level of assist. Patient will complete transfers from bed to chair at: - (And I assist) Patient will ambulate: - (150 feet with least restrictive device at standby assist on various surfaces to allow her to return to her apartment.) Patient will complete upper body dressing at: - (Supervision) Patient will complete lower body dressing at: - (Supervision with adaptive equipment as needed) Patient will complete toileting at: - (She will complete toilet transfer and toileting tasks at supervision.) Patient will complete grooming at: - (Supervision while standing at the sink) Patient will achieve: - (4 steps with 2 handrails at contact-guard assist to allow access to her sister's home) Patient will have pain level of: of 3 or less Patient's skin will: remain intact Patient will receive: adequate nutrition. Discharge Planning Pt Prognosis for Sig. Practical Improv. w/in Reasonable Time: Good Estimated Length of stay (days): 21 Anticipated D/C Destination: Home w/ family or friends Was Preadmission Assessment Accurate?: Yes
[2023-08-08] MEDS: Menthol/Lanolin/Calamine/Znox 113 GM Tube 1 APPLIC TOPICAL ×2 (10:32→23:55)
--- NOTE | 2023-08-08 13:41 | NURSING ---
MOUTH CARE GIVEN AFTER LUNCH. DENTURES OUT AND CLEANED. MOUTH CLEANED OUT BY PT AND NURSE WITH MOUTH SWABS. PT TOLERATED WELL.
--- NOTE | 2023-08-08 17:10 | CASEMGMT ---
Social Work SW discussed DC plans with pt. Pt interested in AL. SW educated to pricing and services. Pt unsure she can afford AL. SW discussed community resources, such as PHYSIOTHERAPY AIDE, [facility] [place]. Pt interested in resources if she goes home. Pt agreed to have sister bring in copies of advanced directives. SW will continue to follow. Doris Henson, INTERACTIVE GRAPHIC DESIGNER [employer] UNDERWRITER
[2023-08-08] MEDS: 0.9% Saline Lock 10 ML Syringe IV (18:05)
[2023-08-08 20:00] VITALS: BP 143/70; PULSE 68; RESP 17; TEMP 36.8; O2SAT 95
[2023-08-08] MEDS: MELATONIN 3 MG TABLET PO (23:13)
[2023-08-08] MEDS: Atorvastatin Calcium 10 MG Tablet PO (23:14)
[2023-08-09] MEDS: Acetaminophen 500 MG Tablet 1000 MG PO ×3 (05:43→21:15)
[2023-08-09] MEDS: Pramipexole Di-HCl 0.25 MG Tablet PO ×3 (05:43→21:17)
[2023-08-09] MEDS: busPIRone 5 MG Tablet PO ×2 (07:38→21:17)
[2023-08-09] MEDS: Aspirin 81 MG TAB.CHEW PO (07:38)
[2023-08-09] MEDS: Citalopram 10 MG Tablet 30 MG PO (07:38)
[2023-08-09] MEDS: Pantoprazole Sodium 40 MG Tablet PO (07:38)
[2023-08-09] MEDS: Benztropine 2 MG Tablet 1 MG PO ×2 (07:38→21:21)
[2023-08-09] MEDS: Enoxaparin 40 MG/0.4 ML Syringe SC (07:40)
[2023-08-09] MEDS: Menthol/Lanolin/Calamine/Znox 113 GM Tube 1 APPLIC TOPICAL ×2 (07:40→21:23)
[2023-08-09] MEDS: Losartan Potassium 50 MG Tablet PO (07:40)
[2023-08-09] MEDS: Nitrofurantoin Macrocrystals 100 MG Capsule PO ×2 (07:40→18:00)
[2023-08-09] MEDS: Ensure Plus High Protein 120 ML LIQUID PO ×2 (07:46→12:06)
[2023-08-09 09:09] VITALS: BP 163/69; PULSE 84; RESP 17; TEMP 36.7; O2SAT 95
[2023-08-09] MEDS: Senna/Docusate Sodium 1 Tablet 2 TABLET PO ×2 (12:36→21:16)
--- NOTE | 2023-08-09 13:15 | PCM.PROGNOTE ---
Subjective Subjective Afebrile VSS -blood pressures have been high since arriving on rehab. The systolic blood pressure has ranged from 1 43-1 76 and the diastolic blood pressure has ranged from 69-87. Heart rate is within normal limits. No bradycardia. Maintaining appropriate oxygen saturation on RA Oral intake is poor. She refused breakfast this a.m. and has been eating only 25 to 45% of her Discussed with nursing -she is has been using the bedpan at night. She slept fairly well last night per patient and per nursing. Reviewed the PT/OT/ST notes Medication list reviewed. Denies lightheadedness, cephalgia, vertigo, chest pain, shortness of breath, palpitations, nausea/vomiting/abdominal pain, dysuria and calf pain. She is c/o some pain in the ankles. Objective Data Objective Data Vital Signs: Vital Signs Temp Pulse Resp BP Pulse Ox O2 Del Method FiO2 98.0 F 84 17 163/69 H 95 Room Air 21 08/09/23 09:09 08/09/23 09:09 08/09/23 09:09 08/09/23 09:09 08/09/23 09:09 08/09/23 09:09 08/08/23 20:45 Oxygen Delivery Method Room Air Weight: 138 lb 0.15 oz Body Mass Index (BMI) 25.2 Intake & Output: Intake and Output for Last 24 Hours 08/07/23 08/08/23 08/09/23 23:59 23:59 23:59 Intake Total 1155 / 1155 1300 / 1300 195 / 195 Output Total 775 / 775 1250 / 1250 200 / 200 Balance 380 / 380 50 / 50 -5 / -5 Lab / Micro Data 08/07/23 05:43 08/07/23 05:43 Physical Exam Const alert and no apparent distress General Appearance: cooperative and anxious Resp normal respiratory effort, normal air movement and clear to auscultation bilaterally Cardio regular rate, regular rhythm, no murmurs and no gallops GI soft to palpation GI Narrative: The abdominal incision is healing well with no dehiscence. No zach-incisional erythema, no DC. she has a rash around the area where the dressing would have been. It is small red papules with satellite lesions. suspect it may be a contact dermatitis from the tape but, there may be a component of yeast.......it is dry and mot moist at present and she denies pruruitus Extremity no calf tenderness General Extremity: edema bilateral (mostly at the ankles.) lower extremity Skin General Skin Exam: no breakdown Rashes: rashes noted Wound Narrative: See abd exam for description of the incision Assessment & Plan Assessment/Plan (1) Physical debility: (2) Generalized muscle weakness: (3) Cecal volvulus: (4) S/P right hemicolectomy: (5) Acute on chronic anemia: (6) Parkinsons disease: (7) Anxiety and depression: (8) UTI (urinary tract infection): QUALIFIERS: Urinary tract infection type: site unspecified Hematuria presence: without hematuria Qualified Code(s): N39.0 - Urinary tract infection, site not specified (9) Hypertension: QUALIFIERS: Hypertension type: primary hypertension Qualified Code(s): I10 - Essential (primary) hypertension (10) Dyslipidemia: (11) GERD without esophagitis: (12) Dementia: QUALIFIERS: Dementia type: Parkinson's disease Dementia severity: mild Dementia behavioral or psychological symptom: with anxiety Qualified Code(s): G20 - Parkinson's disease; F02.A4 - Dementia in other diseases classified elsewhere, mild, with anxiety (13) Hallucination, visual: PLAN: Plan 1. Continue therapy 2. Add Lopressor 12.5 mg twice daily to her current drug regimen for blood pressure control. 3. Continue BuSpar, her anxiety seems to be under control at present. 4. Continue to encourage increased fluid intake and nutritional intake. 5. Schedule stool softeners for her. Her last bowel movement was on the . Charges/Coding Visit Charges Inpatient E&M: 74803 Subs Hosp L2
[2023-08-09 14:05] VITALS: BP 166/74; PULSE 66
[2023-08-09] MEDS: Metoprolol Tartrate 25 MG Tablet 12.5 MG PO ×2 (14:05→21:18)
[2023-08-09 19:45] VITALS: BP 154/74; PULSE 66; RESP 16; TEMP 36.6; O2SAT 96
[2023-08-09] MEDS: Atorvastatin Calcium 10 MG Tablet PO (21:16)
[2023-08-09] MEDS: MELATONIN 3 MG TABLET PO (21:17)
[2023-08-09 21:18] VITALS: BP 154/74; PULSE 66
[2023-08-10] MEDS: Acetaminophen 500 MG Tablet 1000 MG PO ×3 (04:59→20:27)
[2023-08-10] MEDS: Pramipexole Di-HCl 0.25 MG Tablet PO ×3 (04:59→20:27)
[2023-08-10 08:00] VITALS: BP 155/77; PULSE 72; RESP 18; TEMP 36.6; O2SAT 97
[2023-08-10] MEDS: Nitrofurantoin Macrocrystals 100 MG Capsule PO ×2 (08:30→18:16)
[2023-08-10] MEDS: Ensure Plus High Protein 120 ML LIQUID PO (08:30)
[2023-08-10] MEDS: Enoxaparin 40 MG/0.4 ML Syringe SC (08:30)
[2023-08-10] MEDS: Aspirin 81 MG TAB.CHEW PO (08:30)
[2023-08-10] MEDS: Citalopram 10 MG Tablet 30 MG PO (08:30)
[2023-08-10] MEDS: Losartan Potassium 50 MG Tablet PO (08:31)
[2023-08-10] MEDS: Benztropine 2 MG Tablet 1 MG PO ×2 (08:31→20:27)
[2023-08-10] MEDS: busPIRone 5 MG Tablet PO ×2 (08:31→20:23)
[2023-08-10] MEDS: Pantoprazole Sodium 40 MG Tablet PO (08:32)
[2023-08-10] MEDS: Menthol/Lanolin/Calamine/Znox 113 GM Tube 1 APPLIC TOPICAL ×2 (08:33→20:24)
[2023-08-10 08:34] VITALS: BP 161/82; PULSE 70
[2023-08-10] MEDS: Metoprolol Tartrate 25 MG Tablet 12.5 MG PO ×2 (08:34→20:26)
[2023-08-10 19:41] VITALS: BP 147/78; PULSE 64; RESP 16; TEMP 36.8; O2SAT 95
[2023-08-10 20:26] VITALS: BP 176/76; PULSE 63
[2023-08-10] MEDS: Atorvastatin Calcium 10 MG Tablet PO (20:27)
[2023-08-10] MEDS: MELATONIN 3 MG TABLET PO (20:27)
[2023-08-11] MEDS: Pramipexole Di-HCl 0.25 MG Tablet PO ×3 (06:23→20:32)
[2023-08-11] MEDS: Acetaminophen 500 MG Tablet 1000 MG PO ×3 (06:23→20:32)
[2023-08-11] MEDS: Alendronate Sodium 70 MG Tablet PO (06:23)
[2023-08-11] MEDS: Ensure Plus High Protein 120 ML LIQUID PO ×3 (08:05→16:31)
[2023-08-11] MEDS: Nitrofurantoin Macrocrystals 100 MG Capsule PO ×2 (08:07→16:30)
[2023-08-11] MEDS: Aspirin 81 MG TAB.CHEW PO (08:08)
[2023-08-11 08:33] VITALS: BP 142/80; PULSE 83; RESP 16; TEMP 37; O2SAT 96
[2023-08-11] MEDS: Losartan Potassium 50 MG Tablet PO (10:42)
[2023-08-11] MEDS: Citalopram 10 MG Tablet 30 MG PO (10:42)
[2023-08-11 10:43] VITALS: PULSE 83
[2023-08-11] MEDS: Metoprolol Tartrate 25 MG Tablet 12.5 MG PO ×2 (10:43→20:31)
[2023-08-11] MEDS: Enoxaparin 40 MG/0.4 ML Syringe SC (10:44)
[2023-08-11] MEDS: Pantoprazole Sodium 40 MG Tablet PO (10:45)
[2023-08-11] MEDS: Senna/Docusate Sodium 1 Tablet 2 TABLET PO ×2 (10:45→20:32)
[2023-08-11] MEDS: Benztropine 2 MG Tablet 1 MG PO ×2 (10:45→20:30)
[2023-08-11] MEDS: busPIRone 5 MG Tablet PO ×2 (10:46→20:32)
[2023-08-11] MEDS: Menthol/Lanolin/Calamine/Znox 113 GM Tube 1 APPLIC TOPICAL ×2 (10:58→20:33)
[2023-08-11 19:18] VITALS: BP 145/76; PULSE 66; RESP 16; TEMP 36.9; O2SAT 95
[2023-08-11 20:31] VITALS: BP 142/70; PULSE 65
[2023-08-11] MEDS: MELATONIN 3 MG TABLET PO (20:31)
[2023-08-11] MEDS: Atorvastatin Calcium 10 MG Tablet PO (20:31)
[2023-08-12] MEDS: Acetaminophen 500 MG Tablet 1000 MG PO ×3 (05:59→20:32)
[2023-08-12] MEDS: Pramipexole Di-HCl 0.25 MG Tablet PO ×3 (05:59→20:32)
[2023-08-12 06:00] VITALS: BMI 24.6
[2023-08-12 07:00] VITALS: BP 160/80; PULSE 79; RESP 16; TEMP 36.8; O2SAT 96
[2023-08-12 07:54] VITALS: PULSE 79
[2023-08-12] MEDS: Aspirin 81 MG TAB.CHEW PO (07:54)
[2023-08-12] MEDS: Losartan Potassium 50 MG Tablet PO (07:54)
[2023-08-12] MEDS: Nitrofurantoin Macrocrystals 100 MG Capsule PO ×2 (07:54→15:51)
[2023-08-12] MEDS: Metoprolol Tartrate 25 MG Tablet 12.5 MG PO ×2 (07:54→20:28)
[2023-08-12] MEDS: Pantoprazole Sodium 40 MG Tablet PO (07:56)
[2023-08-12] MEDS: Citalopram 10 MG Tablet 30 MG PO (07:57)
[2023-08-12] MEDS: Enoxaparin 40 MG/0.4 ML Syringe SC (07:57)
[2023-08-12] MEDS: busPIRone 5 MG Tablet PO ×2 (07:57→20:31)
[2023-08-12] MEDS: Benztropine 2 MG Tablet 1 MG PO ×2 (07:58→20:30)
[2023-08-12] MEDS: Ensure Plus High Protein 120 ML LIQUID PO ×2 (07:58→12:15)
[2023-08-12] MEDS: Menthol/Lanolin/Calamine/Znox 113 GM Tube 1 APPLIC TOPICAL ×2 (08:00→20:31)
--- NOTE | 2023-08-12 13:06 | CASEMGMT ---
Social Work IDT met with patient and sister for Team meeting. Discussed patient's progress in PT/OT/ST/SN. Educated to Medicare approval of 15 days with DC 08/21. IDT recommending pt does not return home alone due to cognitive and physical deficits. Pt is also on a modified diet. Educated to AL, SNF and nonskilled C options and financial liability. Sister inquired about Medicaid. SW educated to SOFÍA eligibility, AL Waiver and the extended timeframe needed, thus DC to a Medicaid AL would not be a possibility. Educated to SNF with SOFÍA initially until AL Waiver approved. SW offered to refer to [facility] to determine eligibility, then SW can assist with plan. Sister agreed. SW did provide sister with SNF list with quality and resource data via [facility] and AL list with MCDs AL indicated. SW will continue to follow. Email referral sent to [facility]. LIENTTE FlahertyW
[2023-08-12] MEDS: Loperamide 2 MG Capsule PO (15:47)
--- NOTE | 2023-08-12 16:12 | PCM.PROGNOTE ---
Subjective Subjective Erika was seen on team rounds today. Her Sister Moo was present in the room. Her sister was able to tell me that rEika's neurologist is Dr. Brandan Manzo. Macrodantin will conclude today for treatment of urinary tract infection. Afebrile VSS-systolic blood pressures are still consistently elevated above goal. In the past 24 hours the blood pressure has ranged from 142/70 to 160/80. Heart rate is within normal limits. Maintaining appropriate oxygen saturation on RA Oral intake is poor. Unable to chew due to ill fitting dentures and PD. Discussed with nursing - Has had frequent loose stools the past 2 days.......stool softeners held today. She is less anxious than she was at admission. Reviewed the PT/OT/ST notes Medication list reviewed. She has only taken 1 dose of tramadol since admission to rehab. Erika is still having hallucinations. She had them at home prior to being admitted to the hospital for cecal volvulus but, they are more frequent now. Erika denies lightheadedness, vertigo, CP, SOB at rest, SOB with exertion, cough, nausea, vomiting, abd pain, constipation, dysuria, calf pain and ankle swelling. She is having frequent loose stools and the stool softeners were held to day. she is very distressed about the diarrhea and I explained to her I feel it is due to the combination of stool softeners and the recent R hemicolectomy. Objective Data Objective Data Vital Signs: Vital Signs Temp Pulse Resp BP Pulse Ox O2 Del Method FiO2 98.3 F 79 16 160/80 H 96 Room Air 21 08/12/23 07:00 08/12/23 07:54 08/12/23 07:00 08/12/23 07:00 08/12/23 07:00 08/12/23 07:00 08/08/23 20:45 Oxygen Delivery Method Room Air Weight: 134 lb Body Mass Index (BMI) 24.6 Intake & Output: Intake and Output for Last 24 Hours 08/10/23 08/11/23 08/12/23 23:59 23:59 23:59 Intake Total 830 / 830 550 / 550 640 / 640 Output Total 100 / 100 900 / 900 Balance 730 / 730 -350 / -350 640 / 640 Medical Nutrition Assessment Dietitian: Malnutrition Criteria Met Start: 08/12/23 14:01 Freq: Status: Active Protocol: Document 08/12/23 14:01 SUPRIYA (Rec: 08/12/23 14:02 [id number]) Nutrition Malnutrition Evidence of Malnutrition Exists Yes Malnutrition (severe): Acute Illness/Injury Intake Problem Inadequate Oral Intake Etiology related to possible depression /emotional instability and s/p abd surgery/poor appetite Signs/Symptoms as evidenced by <49% PO at most meals Status Inactive Problem Clinical Problem Acute Disease or Injury Related Malnutrition Etiology severe related to possible depression/emotional instability and s/p abd surgery/poor appetite Signs/Symptoms as evidenced by <50% PO intakes for 5 days and 2.8% weight loss in 8 days. Status Active Problem Recommendation Dietitian Recommendations/Changes Recommend liberalized regular diet as tolerated. Will note [id number] foods needed on diet order. Continue ensure plus high protein TID w/ medpass. Continue Magic Cup BID w/ lunch and dinner. Adjust ONS to optimize oral intake and prevent weight loss . Lab / Micro Data 08/07/23 05:43 08/07/23 05:43 Physical Exam Const Constitutional Narrative: More anxious today........fixated on diarrhea. Sleeping well at night except when she has a nightmare. I do not know that these things she is saying are hallucinations or nightmares. she told me she saw herself putting a baby bird in her Mouth and then biting down. At home she saw shadow people and occasional animal in the house. The new hallucinations could be related to TBI from the recent fall when she struck her head on the toilet and sustained a 12 cm laceration. She has more facial expression today. Voice is not as soft. General Appearance: cooperative HEENT HEENT Narrative: Scalp incision is healed well. Resp normal respiratory effort and clear to auscultation bilaterally Cardio regular rate, regular rhythm and no gallops Cardio Narrative: No ectopy GI normal to inspection, nondistended, normoactive bowel sounds, soft to palpation and non-tender GI Narrative: the rash on the abd has completely resolved and the incision is healing very well. No zach-incisional erythema and no DC. Extremity no calf tenderness General Extremity: edema bilateral lower extremity (ankles) Skin General Skin Exam: no breakdown Rashes: no rashes Psych Psych Narrative: increased anxiety today Assessment & Plan Assessment/Plan (1) Physical debility: (2) Generalized muscle weakness: (3) Cecal volvulus: (4) S/P right hemicolectomy: (5) Acute on chronic anemia: (6) Parkinsons disease: (7) Anxiety and depression: (8) UTI (urinary tract infection): QUALIFIERS: Urinary tract infection type: site unspecified Hematuria presence: without hematuria Qualified Code(s): N39.0 - Urinary tract infection, site not specified (9) Hypertension: QUALIFIERS: Hypertension type: primary hypertension Qualified Code(s): I10 - Essential (primary) hypertension (10) Dyslipidemia: (11) GERD without esophagitis: (12) Dementia: QUALIFIERS: Dementia type: Parkinson's disease Dementia severity: mild Dementia behavioral or psychological symptom: with anxiety Qualified Code(s): G20 - Parkinson's disease; F02.A4 - Dementia in other diseases classified elsewhere, mild, with anxiety (13) Hallucination, visual: PLAN: vs nightmares........what she is describing is happening at night. She was recently started on Mirapex by Dr. Manzo and this can cause hallucinations and so can Rasagiline. PLAN: Plan 1. Continue therapy 2. Increase the Buspar to 5 mg TID. 3. Continue to hold the stool softeners. Imodium 2 mg Q6H PRN diarrhea. 4. If the scary hallucinations continue will call Dr. Manzo and see if he wants to change the medication. Charges/Coding Visit Charges Inpatient E&M: 97757 Subs Hosp L2
[2023-08-12 19:27] VITALS: BP 151/75; PULSE 58; RESP 16; TEMP 36.4; O2SAT 98
[2023-08-12 20:07] VITALS: PULSE 58; RESP 18; O2SAT 98
[2023-08-12 20:28] VITALS: BP 151/75; PULSE 58
[2023-08-12] MEDS: traMADol 50 MG Tablet PO (20:28)
[2023-08-12] MEDS: MELATONIN 3 MG TABLET PO (20:31)
[2023-08-12] MEDS: Atorvastatin Calcium 10 MG Tablet PO (20:32)
[2023-08-13] MEDS: Pramipexole Di-HCl 0.25 MG Tablet PO ×3 (05:38→20:14)
[2023-08-13] MEDS: Acetaminophen 500 MG Tablet 1000 MG PO ×3 (05:38→20:14)
[2023-08-13 09:27] VITALS: BP 147/78; PULSE 77
[2023-08-13] MEDS: Pantoprazole Sodium 40 MG Tablet PO (09:27)
[2023-08-13] MEDS: Enoxaparin 40 MG/0.4 ML Syringe SC (09:27)
[2023-08-13] MEDS: Metoprolol Tartrate 25 MG Tablet 12.5 MG PO ×2 (09:27→20:13)
[2023-08-13] MEDS: Losartan Potassium 50 MG Tablet PO (09:27)
[2023-08-13] MEDS: Citalopram 10 MG Tablet 30 MG PO (09:27)
[2023-08-13] MEDS: Benztropine 2 MG Tablet 1 MG PO ×2 (09:28→20:14)
[2023-08-13] MEDS: Aspirin 81 MG TAB.CHEW PO (09:28)
[2023-08-13] MEDS: Ensure Plus High Protein 120 ML LIQUID PO ×3 (09:29→17:24)
[2023-08-13] MEDS: Menthol/Lanolin/Calamine/Znox 113 GM Tube 1 APPLIC TOPICAL ×2 (09:29→20:15)
[2023-08-13 09:44] VITALS: BP 147/78; PULSE 77; RESP 16; TEMP 36.7; O2SAT 98
[2023-08-13] MEDS: busPIRone 5 MG Tablet PO ×2 (14:11→20:13)
[2023-08-13 20:13] VITALS: BP 112/65; PULSE 64
[2023-08-13] MEDS: Atorvastatin Calcium 10 MG Tablet PO (20:14)
[2023-08-13 20:15] VITALS: BP 112/65; PULSE 64; RESP 16; TEMP 36.7; O2SAT 96
[2023-08-13] MEDS: MELATONIN 3 MG TABLET PO (20:15)
[2023-08-14] MEDS: busPIRone 5 MG Tablet PO ×3 (06:25→20:58)
[2023-08-14] MEDS: Pramipexole Di-HCl 0.25 MG Tablet PO ×3 (06:25→21:05)
[2023-08-14] MEDS: Acetaminophen 500 MG Tablet 1000 MG PO ×3 (06:26→21:05)
[2023-08-14 08:36] VITALS: BP 144/57; PULSE 63; RESP 16; TEMP 36.8; O2SAT 99
[2023-08-14] MEDS: Benztropine 2 MG Tablet 1 MG PO ×2 (08:42→20:59)
[2023-08-14] MEDS: Citalopram 10 MG Tablet 30 MG PO (08:42)
[2023-08-14] MEDS: Ensure Plus High Protein 120 ML LIQUID PO ×3 (08:42→17:40)
[2023-08-14] MEDS: Aspirin 81 MG TAB.CHEW PO (08:42)
[2023-08-14] MEDS: Losartan Potassium 50 MG Tablet PO (08:43)
[2023-08-14 08:44] VITALS: PULSE 65
[2023-08-14] MEDS: Metoprolol Tartrate 25 MG Tablet 12.5 MG PO ×2 (08:44→21:00)
[2023-08-14] MEDS: Enoxaparin 40 MG/0.4 ML Syringe SC (08:49)
[2023-08-14] MEDS: Pantoprazole Sodium 40 MG Tablet PO (08:49)
[2023-08-14] MEDS: Menthol/Lanolin/Calamine/Znox 113 GM Tube 1 APPLIC TOPICAL ×2 (08:52→20:57)
--- NOTE | 2023-08-14 10:10 | CASEMGMT ---
Addendum entered by Doris Henson 08/14/23 12:46: [facility] can accept, [place] and [facility] do not have beds. SW phoned sister and agreeable to [facility] for DC. SW updated [facility]. 7000 started. Sister to transport. Plan: DC 08/21, [facility] skilled Original Note: Social Work Received call from pt's sister stating she spoke with [facility] and a [facility] application is being submitted to S to process. Also, sister requesting referrals to [facility], [place] and [facility]. Sister's preference is [facility] for the SOFÍA AL option. SW [facility] Pt would originally admit skilled. Will continue to follow. Doris Henson MSW HAND STAPLER
[2023-08-14 11:02] VITALS: BMI 24.3
--- NOTE | 2023-08-14 13:00 | PCM.PROGNOTE ---
Subjective Subjective Afebrile VSS Maintaining appropriate oxygen saturation on RA Oral intake is poor.......Mirapex can cause a decrease in appetite. She has lost 2.2 lbs since 08/12. Fluid balance is negative the past 2 days. Discussed with nursing - no problems that need addressed Reviewed the PT/OT/ST notes Medication list reviewed. She has not had any tramadol since 08/12/2023. She tells me that she has diarrhea still but, she has only had 1 BM in the past 24H and it was loose.....which is to be expected after a R hemicolectomy. She denies SOB, CP, lightheadedness, nausea, abd pain, dysuria and calf tenderness. Nightmares are decreasing. She has not received any stool softeners for several days. Objective Data Objective Data Vital Signs: Vital Signs Temp Pulse Resp BP Pulse Ox O2 Del Method FiO2 98.3 F 65 16 144/57 H 99 Room Air 21 08/14/23 08:36 08/14/23 08:44 08/14/23 08:36 08/14/23 08:36 08/14/23 08:36 08/14/23 08:36 08/08/23 20:45 Oxygen Delivery Method Room Air Weight: 131 lb 13.383 oz Body Mass Index (BMI) 24.3 Intake & Output: Intake and Output for Last 24 Hours 08/12/23 08/13/23 08/14/23 23:59 23:59 23:59 Intake Total 840 / 1060 890 / 890 300 / 300 Output Total 1400 / 1400 700 / 700 Balance 840 / 660 -510 / -510 -400 / -400 Medical Nutrition Assessment Dietitian: Malnutrition Criteria Met Start: 08/12/23 14:01 Freq: Status: Active Protocol: Document 08/12/23 14:01 SUPRIYA (Rec: 08/12/23 14:02 [id number]) Nutrition Malnutrition Evidence of Malnutrition Exists Yes Malnutrition (severe): Acute Illness/Injury Intake Problem Inadequate Oral Intake Etiology related to possible depression /emotional instability and s/p abd surgery/poor appetite Signs/Symptoms as evidenced by <49% PO at most meals Status Inactive Problem Clinical Problem Acute Disease or Injury Related Malnutrition Etiology severe related to possible depression/emotional instability and s/p abd surgery/poor appetite Signs/Symptoms as evidenced by <50% PO intakes for 5 days and 2.8% weight loss in 8 days. Status Active Problem Recommendation Dietitian Recommendations/Changes Recommend liberalized regular diet as tolerated. Will note [id number] foods needed on diet order. Continue ensure plus high protein TID w/ medpass. Continue Magic Cup BID w/ lunch and dinner. Adjust ONS to optimize oral intake and prevent weight loss . Lab / Micro Data 08/15/23 05:11 08/15/23 05:11 Physical Exam Const alert, oriented x3 and no apparent distress Constitutional Narrative: More facial expression and better projection of her voice. General Appearance: cooperative Resp normal respiratory effort and clear to auscultation bilaterally Effort and Inspection: Negative for tachypneic Cardio regular rate, regular rhythm and no gallops GI normal to inspection, nondistended, normoactive bowel sounds, soft to palpation and non-tender GI Narrative: No guarding with palpation. The incision looks great. No erythema and no DC. No areas of dehiscence. No swelling around the incision. Extremity no calf tenderness Extremity Narrative: She has pitting edema in both LE's to mid calf. There is no pitting of the posterior thighs. Usually she is sitting in the recliner when she is in her room with her legs dependent. General Extremity: Negative for cyanosis Skin General Skin Exam: no breakdown Rashes: no rashes Psych Psych Narrative: She does not seem anxious to me today and I spoke with the PT who said she is doing better with her anxiety when in therapy and is more willing to try things, even though she is afraid of falling. No sx of depression.......I think the decrease in the appetite is related to the PD meds. Assessment & Plan Assessment/Plan (1) Physical debility: (2) Generalized muscle weakness: (3) Cecal volvulus: (4) S/P right hemicolectomy: (5) Acute on chronic anemia: (6) Parkinsons disease: (7) Anxiety and depression: (8) UTI (urinary tract infection): QUALIFIERS: Urinary tract infection type: site unspecified Hematuria presence: without hematuria Qualified Code(s): N39.0 - Urinary tract infection, site not specified (9) Hypertension: QUALIFIERS: Hypertension type: primary hypertension Qualified Code(s): I10 - Essential (primary) hypertension (10) Dyslipidemia: (11) GERD without esophagitis: (12) Dementia: QUALIFIERS: Dementia type: Parkinson's disease Dementia severity: mild Dementia behavioral or psychological symptom: with anxiety Qualified Code(s): G20 - Parkinson's disease; F02.A4 - Dementia in other diseases classified elsewhere, mild, with anxiety (13) Hallucination, visual: PLAN: I believe this is likely due to the medications for PD and not to psychiatric illness. PLAN: Plan 1. Continue therapy. 2. Erika understands that unless she can ambulate and participate in her care she will not be a candidate for Assisted Living and will need to go to an ECF. She is motivated to do therapy so she can go to assisted living. 3. Less hallucinations.......and only at night.....no Tramadol or Oxycodone since 08/12 4. Erika is on many medications that can cause anxiety and hallucinations and gastrointestinal SE. The maximum recommended dose for citalopram in patients over the age of 60 is 20 mg. Will decrease the citalopram dose to 20 mg from 30 mg daily. There is also an interaction between citalopram and Azilect......... they have an interaction that can lead to increased behavioral excitation. May consider weaning off Citalopram over the next month and considering Remeron to help with appetite. 5. Recheck lab in the AM. Charges/Coding Visit Charges Inpatient E&M: 86029 Subs Hosp L2
[2023-08-14] MEDS: Atorvastatin Calcium 10 MG Tablet PO (20:59)
[2023-08-14 21:00] VITALS: BP 126/57; PULSE 56
[2023-08-14] MEDS: MELATONIN 3 MG TABLET PO (21:04)
[2023-08-14 21:56] VITALS: PULSE 64; RESP 16; O2SAT 97
[2023-08-14 22:00] VITALS: BP 107/54; PULSE 64; RESP 16; TEMP 36.7; O2SAT 97
[2023-08-15] MEDS: Pramipexole Di-HCl 0.25 MG Tablet PO ×3 (05:13→20:47)
[2023-08-15] MEDS: busPIRone 5 MG Tablet PO ×3 (05:13→20:49)
[2023-08-15] MEDS: Acetaminophen 500 MG Tablet 1000 MG PO ×3 (05:14→20:47)
[2023-08-15 05:51] LABS: Hematocrit 31.1 % (37-47); Hemoglobin 9.4 g/dL (12.0-15.0); Mean Corp Hgb Conc 30.2 g/dL (32-36); Mean Corpuscular Hgb 27.7 pg (27.0-32.0); Mean Corpuscular Volume 91.7 fL (81-99); Mean Platelet Vol. 10.2 fl (6.2-12.0); Platelet Count 481 K/mm3 (150-450); RBC Distribution Width CV 15.3 % (11.6-14.6); RBC Distribution Width SD 50.6 fl (35.1-43.9); Red Blood Count 3.39 M/mm3 (4.2-5.4); White Blood Count 7.2 K/mm3 (4.4-11.0)
[2023-08-15 06:28] LABS: Anion Gap 2 (5-15); BUN 14 mg/dL (7-18); BUN/Creat Ratio 16.6 RATIO (10-20); Chloride 109 mmol/L (98-107); Creatinine, Serum 0.84 mg/dL (0.55-1.02); EST Glomerular Filtration Rate 70 mL/min (>60); Est Glom Filt Rate - Afr Amer 85 mL/min (>60); Estimated Creatinine Clearance 47.88 ml/min; Glucose 96 mg/dL (74-106); Potassium 4.8 mmol/L (3.5-5.1); Sodium Level 141 mmol/L (136-145)
[2023-08-15 07:18] VITALS: BP 147/55; PULSE 63; RESP 16; TEMP 36.7; O2SAT 98
[2023-08-15] MEDS: Aspirin 81 MG TAB.CHEW PO (08:47)
[2023-08-15] MEDS: Ensure Plus High Protein 120 ML LIQUID PO ×3 (08:47→18:08)
[2023-08-15] MEDS: Menthol/Lanolin/Calamine/Znox 113 GM Tube 1 APPLIC TOPICAL ×2 (08:47→20:52)
[2023-08-15] MEDS: Citalopram 20 MG Tablet PO (08:48)
[2023-08-15] MEDS: Benztropine 2 MG Tablet 1 MG PO ×2 (08:48→20:48)
[2023-08-15 08:49] VITALS: PULSE 65
[2023-08-15] MEDS: Metoprolol Tartrate 25 MG Tablet 12.5 MG PO ×2 (08:49→20:47)
[2023-08-15] MEDS: Losartan Potassium 50 MG Tablet PO (08:49)
[2023-08-15] MEDS: Enoxaparin 40 MG/0.4 ML Syringe SC (08:50)
[2023-08-15] MEDS: Pantoprazole Sodium 40 MG Tablet PO (08:50)
[2023-08-15 12:03] LABS: Magnesium 2.2 mg/dL (1.6-2.6)
[2023-08-15 19:37] VITALS: BP 120/48; PULSE 60; RESP 18; TEMP 37; O2SAT 98
[2023-08-15 20:40] VITALS: O2SAT 98
[2023-08-15 20:47] VITALS: BP 120/48; PULSE 60
[2023-08-15] MEDS: MELATONIN 3 MG TABLET PO (20:47)
[2023-08-15] MEDS: Atorvastatin Calcium 10 MG Tablet PO (20:49)
[2023-08-16] MEDS: Pramipexole Di-HCl 0.25 MG Tablet PO ×3 (05:46→22:56)
[2023-08-16] MEDS: busPIRone 5 MG Tablet PO ×3 (05:46→22:56)
[2023-08-16] MEDS: Acetaminophen 500 MG Tablet 1000 MG PO ×3 (05:47→22:56)
[2023-08-16 08:03] VITALS: BP 114/49; PULSE 58; RESP 16; TEMP 36.8; O2SAT 98
[2023-08-16 08:45] VITALS: PULSE 58
[2023-08-16] MEDS: Enoxaparin 40 MG/0.4 ML Syringe SC (08:45)
[2023-08-16] MEDS: Benztropine 2 MG Tablet 1 MG PO ×2 (08:45→22:56)
[2023-08-16] MEDS: Aspirin 81 MG TAB.CHEW PO (08:45)
[2023-08-16] MEDS: Polyethylene Glycol 3350 17 GM PACKET PO (08:45)
[2023-08-16] MEDS: Metoprolol Tartrate 25 MG Tablet 12.5 MG PO ×2 (08:45→22:57)
[2023-08-16] MEDS: Citalopram 20 MG Tablet PO (08:45)
[2023-08-16] MEDS: Pantoprazole Sodium 40 MG Tablet PO (08:45)
[2023-08-16] MEDS: Losartan Potassium 50 MG Tablet PO (08:46)
[2023-08-16] MEDS: Menthol/Lanolin/Calamine/Znox 113 GM Tube 1 APPLIC TOPICAL ×2 (08:52→22:59)
[2023-08-16] MEDS: Ensure Plus High Protein 120 ML LIQUID PO ×2 (08:53→11:24)
--- NOTE | 2023-08-16 17:40 | PCM.PROGNOTE ---
Subjective Subjective Afebrile VSS-blood pressures well controlled with no hypotension. Heart rate ranges from 58-65. Maintaining appropriate oxygen saturation on RA-98%. Oral intake continues to be poor for both fluids and nutrition. Discussed with nursing - no problems that need addressed. Per therapy and nursing the anxiety is much better. Reviewed the PT/OT/ST notes Medication list reviewed. Erika denies cephalgia, lightheadedness, vertigo, chest pain, palpitations, shortness of breath, nausea/vomiting/abdominal pain, dysuria and calf pain. She continues to complain of difficulty sleeping at night but she feels rested in the morning. She wakes up every 1-2 hours but goes back to sleep. Objective Data Objective Data Vital Signs: Vital Signs Temp Pulse Resp BP Pulse Ox O2 Del Method FiO2 98.3 F 58 L 16 114/49 L 98 Room Air 08/16/23 08:03 08/16/23 08:45 08/16/23 08:03 08/16/23 08:03 08/16/23 08:03 08/16/23 08:03 08/08/23 20:45 Oxygen Delivery Method Room Air Weight: 131 lb 13.383 oz Body Mass Index (BMI) 24.3 Intake & Output: Intake and Output for Last 24 Hours 08/14/23 08/15/23 08/16/23 23:59 23:59 23:59 Intake Total 900 / 900 100 / 100 600 / 600 Output Total 1100 / 1350 1550 / 1550 125 / 125 Balance -200 / -450 -1450 / -1450 475 / 475 Medical Nutrition Assessment Dietitian: Malnutrition Criteria Met Start: 08/12/23 14:01 Freq: Status: Active Protocol: Document 08/12/23 14:01 SUPRIYA (Rec: 08/12/23 14:02 [id number]) Nutrition Malnutrition Evidence of Malnutrition Exists Yes Malnutrition (severe): Acute Illness/Injury Intake Problem Inadequate Oral Intake Etiology related to possible depression /emotional instability and s/p abd surgery/poor appetite Signs/Symptoms as evidenced by <49% PO at most meals Status Inactive Problem Clinical Problem Acute Disease or Injury Related Malnutrition Etiology severe related to possible depression/emotional instability and s/p abd surgery/poor appetite Signs/Symptoms as evidenced by <50% PO intakes for 5 days and 2.8% weight loss in 8 days. Status Active Problem Recommendation Dietitian Recommendations/Changes Recommend liberalized regular diet as tolerated. Will note [id number] foods needed on diet order. Continue ensure plus high protein TID w/ medpass. Continue Magic Cup BID w/ lunch and dinner. Adjust ONS to optimize oral intake and prevent weight loss . Lab / Micro Data 08/15/23 05:11 08/15/23 05:11 Physical Exam Const alert and no apparent distress General Appearance: cooperative HEENT moist oral mucous membranes Resp normal respiratory effort, no use of accessory muscles and clear to auscultation bilaterally Effort and Inspection: Negative for tachypneic or labored Cardio regular rate, regular rhythm and no gallops GI normal to inspection, nondistended, normoactive bowel sounds, non-tender and non-distended GI Narrative: no guarding with palpation. No longer complaining of diarrhea. Extremity Negative for no calf tenderness Extremity Narrative: The LE edema is improving with concerted effort to get her legs elevated when she is sitting in the recliner. General Extremity: edema Skin General Skin Exam: no breakdown Rashes: no rashes Psych affect normal Assessment & Plan Assessment/Plan (1) Physical debility: (2) Generalized muscle weakness: (3) Cecal volvulus: (4) S/P right hemicolectomy: (5) Acute on chronic anemia: (6) Parkinsons disease: (7) Anxiety and depression: (8) UTI (urinary tract infection): QUALIFIERS: Urinary tract infection type: site unspecified Hematuria presence: without hematuria Qualified Code(s): N39.0 - Urinary tract infection, site not specified (9) Hypertension: QUALIFIERS: Hypertension type: primary hypertension Qualified Code(s): I10 - Essential (primary) hypertension (10) Dyslipidemia: (11) GERD without esophagitis: (12) Dementia: QUALIFIERS: Dementia type: Parkinson's disease Dementia severity: mild Dementia behavioral or psychological symptom: with anxiety Qualified Code(s): G20 - Parkinson's disease; F02.A4 - Dementia in other diseases classified elsewhere, mild, with anxiety (13) Hallucination, visual: PLAN: Plan 1. Continue therapy 2. If in 1 week she is doing this well with anxiety and depression will decrease the citalopram to 10 mg and then DC in 2 weeks and start Remeron for sleep and for poor appetite. 3. The BP has come down with the adjustments to the antihypertensives. Charges/Coding Visit Charges Inpatient E&M: 56674 Subs Hosp L2
[2023-08-16 19:55] VITALS: BP 133/66; PULSE 63; RESP 16; TEMP 36.8; O2SAT 98
[2023-08-16] MEDS: Atorvastatin Calcium 10 MG Tablet PO (22:56)
[2023-08-16 22:57] VITALS: BP 133/66; PULSE 63
[2023-08-16] MEDS: MELATONIN 3 MG TABLET PO (22:57)
[2023-08-17] MEDS: Pramipexole Di-HCl 0.25 MG Tablet PO ×3 (05:35→20:49)
[2023-08-17] MEDS: Acetaminophen 500 MG Tablet 1000 MG PO ×3 (05:35→20:48)
[2023-08-17] MEDS: Enoxaparin 40 MG/0.4 ML Syringe SC (05:36)
[2023-08-17] MEDS: busPIRone 5 MG Tablet PO ×3 (05:37→20:49)
[2023-08-17 09:23] VITALS: PULSE 61
[2023-08-17] MEDS: Metoprolol Tartrate 25 MG Tablet 12.5 MG PO ×2 (09:23→20:46)
[2023-08-17] MEDS: Aspirin 81 MG TAB.CHEW PO (09:24)
[2023-08-17] MEDS: Citalopram 20 MG Tablet PO (09:24)
[2023-08-17] MEDS: Benztropine 2 MG Tablet 1 MG PO ×2 (09:24→20:49)
[2023-08-17] MEDS: Losartan Potassium 50 MG Tablet PO (09:24)
[2023-08-17] MEDS: Pantoprazole Sodium 40 MG Tablet PO (09:24)
[2023-08-17] MEDS: Menthol/Lanolin/Calamine/Znox 113 GM Tube 1 APPLIC TOPICAL ×2 (09:25→20:52)
[2023-08-17] MEDS: Ensure Plus High Protein 120 ML LIQUID PO ×3 (09:25→17:23)
[2023-08-17] MEDS: Polyethylene Glycol 3350 17 GM PACKET PO (09:26)
[2023-08-17 10:00] VITALS: BP 154/60; PULSE 61; RESP 16; TEMP 37; O2SAT 99
[2023-08-17 20:38] VITALS: BP 120/57; PULSE 56; RESP 16; TEMP 36; O2SAT 96
[2023-08-17 20:46] VITALS: BP 120/57; PULSE 56
[2023-08-17] MEDS: Atorvastatin Calcium 10 MG Tablet PO (20:50)
[2023-08-17] MEDS: MELATONIN 3 MG TABLET PO (20:50)
[2023-08-18] MEDS: Alendronate Sodium 70 MG Tablet PO (05:30)
[2023-08-18] MEDS: Acetaminophen 500 MG Tablet 1000 MG PO ×3 (05:30→20:55)
[2023-08-18] MEDS: busPIRone 5 MG Tablet PO ×3 (05:30→20:56)
[2023-08-18] MEDS: Enoxaparin 40 MG/0.4 ML Syringe SC (05:31)
[2023-08-18] MEDS: Pramipexole Di-HCl 0.25 MG Tablet PO ×3 (05:36→20:57)
[2023-08-18 07:54] VITALS: BP 132/70; PULSE 60; RESP 16; TEMP 36.6; O2SAT 98
[2023-08-18] MEDS: Ensure Plus High Protein 120 ML LIQUID PO ×2 (08:28→13:30)
[2023-08-18] MEDS: Aspirin 81 MG TAB.CHEW PO (08:28)
[2023-08-18 08:29] VITALS: PULSE 60
[2023-08-18] MEDS: Pantoprazole Sodium 40 MG Tablet PO (08:29)
[2023-08-18] MEDS: Citalopram 20 MG Tablet PO (08:29)
[2023-08-18] MEDS: Losartan Potassium 50 MG Tablet PO (08:29)
[2023-08-18] MEDS: Metoprolol Tartrate 25 MG Tablet 12.5 MG PO ×2 (08:29→20:54)
[2023-08-18] MEDS: Benztropine 2 MG Tablet 1 MG PO ×2 (08:32→20:55)
[2023-08-18] MEDS: Menthol/Lanolin/Calamine/Znox 113 GM Tube 1 APPLIC TOPICAL ×2 (08:33→20:28)
[2023-08-18] MEDS: Polyethylene Glycol 3350 17 GM PACKET PO (08:34)
[2023-08-18] MEDS: Magnesium Hydroxide 30 ML UDC PO (16:40)
[2023-08-18 20:17] VITALS: BP 110/43; PULSE 57; RESP 19; TEMP 37.1; O2SAT 94
[2023-08-18 20:54] VITALS: BP 110/43; PULSE 57
[2023-08-18] MEDS: Atorvastatin Calcium 10 MG Tablet PO (20:54)
[2023-08-18] MEDS: MELATONIN 3 MG TABLET PO (20:56)
[2023-08-19 04:42] VITALS: BMI 23.8
[2023-08-19] MEDS: Enoxaparin 40 MG/0.4 ML Syringe SC (04:57)
[2023-08-19] MEDS: Acetaminophen 500 MG Tablet 1000 MG PO ×3 (04:57→21:42)
[2023-08-19] MEDS: busPIRone 5 MG Tablet PO ×3 (04:57→21:41)
[2023-08-19] MEDS: Pramipexole Di-HCl 0.25 MG Tablet PO ×3 (04:57→21:41)
[2023-08-19] MEDS: Citalopram 20 MG Tablet PO (08:33)
[2023-08-19] MEDS: Aspirin 81 MG TAB.CHEW PO (08:33)
[2023-08-19] MEDS: Benztropine 2 MG Tablet 1 MG PO ×2 (08:33→21:41)
[2023-08-19] MEDS: Pantoprazole Sodium 40 MG Tablet PO (08:35)
[2023-08-19] MEDS: Menthol/Lanolin/Calamine/Znox 113 GM Tube 1 APPLIC TOPICAL ×2 (08:36→21:48)
[2023-08-19] MEDS: Ensure Plus High Protein 120 ML LIQUID PO ×3 (08:36→15:19)
[2023-08-19 08:40] VITALS: BP 99/44; PULSE 53; RESP 18; TEMP 37.1; O2SAT 97
[2023-08-19 10:55] VITALS: BP 108/46; PULSE 62
[2023-08-19 10:58] VITALS: PULSE 62
[2023-08-19] MEDS: Metoprolol Tartrate 25 MG Tablet 12.5 MG PO ×2 (10:58→21:42)
[2023-08-19] MEDS: Losartan Potassium 50 MG Tablet PO (10:58)
--- NOTE | 2023-08-19 12:47 | CASEMGMT ---
Social Work IDT met with patient, sister and brother for Team meeting. Discussed patient's progress in PT/OT/ST/SN. Confirmed pt's DC plan is to [facility], skilled on 08/21. Sister to transport. No other questions. Doris Henson, SOUS [employer] KITCH[employer] MANAGER REHABILITATION SERVICES AIDE
--- NOTE | 2023-08-19 15:41 | PCM.PROGNOTE ---
Subjective Subjective Erika was seen on team rounds. Her Sister Moo and her younger brother were present in the room. Afebrile VSS-blood pressure this morning at 840 was 99/44 but when rechecked at 11 AM it was 108/46. In general the blood pressures are a little lower than they have been. Heart rate is from 56-63 over the past few days. Maintaining appropriate oxygen saturation on RA-97% on room air Oral intake is improving. She had 50 to 74% of her lunch today. She remains on a pur?ed diet with thin liquids. The speech therapist tried her on a saltine cracker today and she chewed incessantly and did not completely clear when swallowing. Discussed with nursing - no problems that need addressed Reviewed the PT/OT/ST notes - She is making good progress with all therapy modalities. Medication list reviewed. Erika tells me that she feels good and is very happy that she is not so anxious. She is still having some visual hallucinations but, she knows they are hallucinations and she is not getting upset. The hallucinations are decreasing and I think they are due to some of the PD medications. She awakens every couple hours at night but, she is able to go bake to sleep and she feels rested when she gets up in the AM. She denies cephalgia, lightheadedness, nausea/vomiting/abdominal pain, heartburn, dysuria and calf tenderness. She is doing better with her calorie intake since her diet was switched to pur?ed. Objective Data Objective Data Vital Signs: Vital Signs Temp Pulse Resp BP Pulse Ox O2 Del Method FiO2 98.7 F 62 18 108/46 L 97 Room Air 21 08/19/23 08:40 08/19/23 10:58 08/19/23 08:40 08/19/23 10:55 08/19/23 08:40 08/19/23 08:40 08/08/23 20:45 Oxygen Delivery Method Room Air Weight: 130 lb 8.218 oz Body Mass Index (BMI) 23.8 Intake & Output: Intake and Output for Last 24 Hours 08/17/23 08/18/23 08/19/23 23:59 23:59 23:59 Intake Total 980 / 980 790 / 790 360 / 360 Output Total 800 / 800 1375 / 1375 950 / 950 Balance 180 / 180 -585 / -585 -590 / -590 Medical Nutrition Assessment Dietitian: Malnutrition Criteria Met Start: 08/12/23 14:01 Freq: Status: Active Protocol: Document 08/12/23 14:01 SUPRIYA (Rec: 08/12/23 14:02 [id number]) Nutrition Malnutrition Evidence of Malnutrition Exists Yes Malnutrition (severe): Acute Illness/Injury Intake Problem Inadequate Oral Intake Etiology related to possible depression /emotional instability and s/p abd surgery/poor appetite Signs/Symptoms as evidenced by <49% PO at most meals Status Inactive Problem Clinical Problem Acute Disease or Injury Related Malnutrition Etiology severe related to possible depression/emotional instability and s/p abd surgery/poor appetite Signs/Symptoms as evidenced by <50% PO intakes for 5 days and 2.8% weight loss in 8 days. Status Active Problem Recommendation Dietitian Recommendations/Changes Recommend liberalized regular diet as tolerated. Will note [id number] foods needed on diet order. Continue ensure plus high protein TID w/ medpass. Continue Magic Cup BID w/ lunch and dinner. Adjust ONS to optimize oral intake and prevent weight loss . Lab / Micro Data 08/15/23 05:11 08/15/23 05:11 Physical Exam Const alert and no apparent distress General Appearance: cooperative and well kempt Resp normal respiratory effort, normal air movement and clear to auscultation bilaterally Effort and Inspection: Negative for tachypneic Cardio regular rate, regular rhythm, no murmurs, no rub and no gallops Cardio Narrative: No ectopy GI normal to inspection, nondistended, normoactive bowel sounds, soft to palpation and non-tender GI Narrative: No guarding with palpation. The incision looks great. No erythema and no DC. No areas of dehiscence. No swelling around the incision. Extremity no calf tenderness General Extremity: edema bilateral (the edema is now limited to the ankles and is mild and when I entered the room she had her legs elevated.) lower extremity (ankles) Skin General Skin Exam: no breakdown Rashes: no rashes Neuro oriented x3 and moves all extremities Neuro Narrative: voice is stronger and I can now Psych cooperative Appearance: appropriate and well kempt Attitude: engaged Activity / Motor Behavior: appropriate eye contact; Negative for fidgetting Assessment & Plan Assessment/Plan (1) Physical debility: (2) Generalized muscle weakness: (3) Cecal volvulus: (4) S/P right hemicolectomy: (5) Acute on chronic anemia: (6) Parkinsons disease: (7) Anxiety and depression: (8) UTI (urinary tract infection): QUALIFIERS: Hematuria presence: without hematuria Urinary tract infection type: site unspecified Qualified Code(s): N39.0 - Urinary tract infection, site not specified (9) Hypertension: QUALIFIERS: Hypertension type: primary hypertension Qualified Code(s): I10 - Essential (primary) hypertension (10) Dyslipidemia: (11) GERD without esophagitis: (12) Dementia: QUALIFIERS: Dementia behavioral or psychological symptom: with anxiety Dementia severity: mild Dementia type: Parkinson's disease Qualified Code(s): G20 - Parkinson's disease; F02.A4 - Dementia in other diseases classified elsewhere, mild, with anxiety (13) Hallucination, visual: PLAN: Plan 1. Continue therapy 2. We did not hold the Azilect but, her appetite is better and her intake is better since she was transitioned to a pureed diet. 3. will contact Dr. Manzo and discuss what to do with her meds tomorrow........will also get a follow up appt scheduled with Dr. Manzo. She has lost another 1.3 lbs since 08/15/23 4. Transfer to [facility] on Saturday. Charges/Coding Visit Charges Inpatient E&M: 24491 Subs Hosp L2
[2023-08-19 19:41] VITALS: BP 98/51; PULSE 54; RESP 16; TEMP 37; O2SAT 95
[2023-08-19 21:42] VITALS: BP 116/62; PULSE 64
[2023-08-19] MEDS: Atorvastatin Calcium 10 MG Tablet PO (21:42)
[2023-08-19] MEDS: MELATONIN 3 MG TABLET PO (21:43)
[2023-08-20] MEDS: Enoxaparin 40 MG/0.4 ML Syringe SC (06:08)
[2023-08-20] MEDS: busPIRone 5 MG Tablet PO ×3 (06:08→22:08)
[2023-08-20] MEDS: Acetaminophen 500 MG Tablet 1000 MG PO ×3 (06:08→22:07)
[2023-08-20] MEDS: Pramipexole Di-HCl 0.25 MG Tablet PO ×3 (06:08→22:08)
[2023-08-20] MEDS: Aspirin 81 MG TAB.CHEW PO (09:01)
[2023-08-20] MEDS: Ensure Plus High Protein 120 ML LIQUID PO ×3 (09:01→17:11)
[2023-08-20] MEDS: Benztropine 2 MG Tablet 1 MG PO ×2 (09:02→22:08)
[2023-08-20] MEDS: Menthol/Lanolin/Calamine/Znox 113 GM Tube 1 APPLIC TOPICAL ×2 (09:02→22:09)
[2023-08-20] MEDS: Citalopram 20 MG Tablet PO (09:02)
[2023-08-20 09:03] VITALS: BP 124/51; PULSE 55
[2023-08-20] MEDS: Losartan Potassium 50 MG Tablet PO (09:03)
[2023-08-20] MEDS: Pantoprazole Sodium 40 MG Tablet PO (09:04)
[2023-08-20] MEDS: Polyethylene Glycol 3350 17 GM PACKET PO (09:04)
[2023-08-20 09:14] VITALS: BP 124/51; PULSE 55; RESP 18; TEMP 36.9; O2SAT 98
--- NOTE | 2023-08-20 11:17 | TREXTCAR_ITS ---
Diet Diet Order/Speech Therapy: 08/08/23 12:10 Diet: Fiber Restricted Food consistency:: Pureed Liquid Consistency:: Regular/Thin Type of Dietary Supplement:: Magic Cup w/ L & D Is pt able to select menu?: Yes Diet Comments: Transitional diet; PUREED Routine Orders/Code Status Enema Type: Fleetz Enema Frequency: Daily PRN Suppository Type: Dulcolax 10mg Suppository Frequency: Daily PRN O2 Liters per Minute: 1-2 O2 Frequency: PRN Keep PO Greater than or Equal to (%): 90 Routine Lab Work: - (CBC with no diff, BMP and a Mag on 08/22/23. Lab has been stable. It was last done on the 15 of August. ) Code Status: Full Code Wound(s) Midline Incision: Wound Type: Surgical Incision head: Wound Type: Surgical Incision Suggestions for Active Care Positions to Avoid: When she is sitting in a chair please elevate her legs. Therapies Weight Bearing: Full weight bearing Physical Therapy: Eval and Treat Occupational Therapy: Eval and Treat Speech Therapy: Eval and Treat Problem/Diagnosis (1) Physical debility: Status: Acute Code(s): R53.81 - Other malaise (2) Generalized muscle weakness: Status: Acute Code(s): M62.81 - Muscle weakness (generalized) (3) Cecal volvulus: Status: Resolved Code(s): K56.2 - Volvulus (4) S/P right hemicolectomy: Status: Acute Code(s): Z90.49 - Acquired absence of other specified parts of digestive tract Comment: 08/01/23 at [facility] - Dr. Andre (5) Acute on chronic anemia: Status: Chronic Code(s): D64.9 - Anemia, unspecified Comment: due to blood loss from surgery. HGB at [place] is 9.4 (6) Parkinsons disease: Status: Chronic Code(s): G20 - Parkinson's disease Comment: She has visual hallucinations but, I think they are due to her medications and not due to PD.......seem to have increased after Mirapex was started. (7) Anxiety and depression: Status: Chronic Code(s): F41.9 - Anxiety disorder, unspecified; F32.9 - Major depressive disorder, single episode, unspecified Comment: She is stable on 20 mg of Citalopram daily and Buspar 5 mg TID. the Buspar has really been helpful in controlling anxiety (8) UTI (urinary tract infection): Status: Resolved Code(s): N39.0 - Urinary tract infection, site not specified Comment: catheter related. (9) Hypertension: Status: Chronic Code(s): I10 - Essential (primary) hypertension Comment: Well controlled. No lightheadedness. (10) Dyslipidemia: Status: Chronic Code(s): E78.5 - Hyperlipidemia, unspecified (11) GERD without esophagitis: Status: Chronic Code(s): K21.9 - Gastro-esophageal reflux disease without esophagitis (12) Dementia: Status: Suspected Code(s): F03.90 - Unspecified dementia, unspecified severity, without behavioral disturbance, psychotic disturbance, mood disturbance, and anxiety Comment: She seems to be more able to focus since the Citalopram was decreased from 30 mg to 20 mg. Max dose in some her age is 20 mg. (13) Hallucination, visual: Status: Acute Code(s): R44.1 - Visual hallucinations Comment: Possibly due to medications. (14) Generalized weakness: Status: Acute Code(s): R53.1 - Weakness (15) Dysphagia: Status: Acute Code(s): R13.10 - Dysphagia, unspecified Plan 1. DC to SNF to continue PT/OT/ST - she has made excellent progress. 2. Going forward would consider weaning Citalopram off and starting Remeron to stimulate appetite and help with chronic insomnia. Could start low dose Remeron once the Citalopram has been weaned down to 10 mg for a week. Remeron has serotonin activity and the combined use can cause some sx of serotonin S. 3. Continue the Buspar - it has been very effective in controlling chronic anxiety and she has had no GI SE's. 4. Schedule a follow up appt with Dr. Brandan Manzo to discuss the hallucinations and the poor appetite which I suspect is related to SE of the PD medications. 5. Schedule a follow up with Dr. Andre 6. Advance to a regular diet with pureed textures and thin liquids Allergies/Procedures Done in Hospital Allergies codeine Adverse Reaction (Verified 08/01/23 16:52) [facility] DOES NOT LIKE TO TAKE IT Procedures: None Type of Care/Length of Stay Estimated LOS: Convalescent Care Less Than 30 days Type of Care Needed: Skilled Rehab Potential: Fair Prognosis: Fair Additional Orders/Day of Discharge H&P will serve as current which was dated: 08/08/23 Day of Discharge: 08/20/23 Dietary and Speech Recommendations Dietitian Recommendations/Changes: Extended period of time on Transitional diet--Recommend liberalized regular diet as tolerated with consistency/texture as per [employer]. Continue ensure plus high protein TID w/ medpass. Continue Magic Cup BID w/ lunch and dinner. Adjust ONS to optimize oral intake and prevent weight loss. Follow Up Care Please follow up with your Primary Care Physician in: following DC from SNF Please Follow Up With: Esme Andre MD When: 2 weeks Please Follow Up With: Brandan Manzo MD Discharge Plan Admission Admit Date/Time: 08/06/23 14:30 Primary Reason for Your Visit: Debility due to generalized weakness after R hemicolectomy Attending Provider: Noemy Shah Primary Care Provider: Ez Garcia Discharge Orders/Prescriptions Prescriptions: New acetaminophen 500 mg Tablet 1,000 mg PO Q8 PRN (Reason: pain) Qty: 1 0RF buspirone 5 mg Tablet 5 mg PO TID Qty: 1 0RF loperamide 2 mg Capsule 2 mg PO Q6H PRN PRN (Reason: Diarrhea) Qty: 1 0RF melatonin 3 mg Tablet 3 mg PO QHS Qty: 1 0RF bisacodyl 10 mg Suppository 10 mg VA .PRN X 1 PRN (Reason: Constipation) Qty: 1 0RF metoprolol tartrate 25 mg Tablet 12.5 mg PO BID Qty: 1 0RF Continued simvastatin 20 MG tablet 20 mg PO QHS benztropine 2 MG tablet 1 mg PO BID omeprazole 40 mg capsule,delayed release(DR/EC) 40 mg PO DAILY pramipexole 0.25 mg tablet 0.25 mg PO TID Patient Comments: START DATE: 08-03-23 rasagiline 1 mg tablet 1 mg PO DAILY valsartan 160 mg tablet 160 mg PO DAILY aspirin 81 MG tablet,chewable 81 mg PO DAILY Ensure Plus High Protein 0.08 gram-1.5 kcal/mL Liquid 120 ml PO TIDCM Qty: 0 0RF alendronate 70 mg tablet 70 mg PO LEWIS Qty: 1 0RF Rx Instructions: Take Saturday AM on and empty stomach and do not lay down or eat for 30 minutes. citalopram 20 mg tablet 20 mg PO DAILY Qty: 1 0RF Discontinued citalopram 10 mg tablet 10 mg PO DAILY Patient Comments: TAKE ONE 10MG AND ONE 20MG TABLET TOGETHER ONCE EVERY NIGHT FOR A TOTAL DOSE OF 30MG. melatonin 5 mg tablet 10 mg PO QHS Hold Instructions: MD Ordered acetaminophen 500 mg Tablet 1,000 mg PO Q8 7 Days Qty: 42 0RF nitrofurantoin monohyd/m-cryst [Macrobid] 100 mg capsule 100 mg PO Q12H 5 Days Qty: 10 0RF Rx Instructions: must administer with a meal/food Referrals / Follow Up: Brandan Manzo MD [Med Staff - Consulting] - (She sees him in [place]) Juan R Savage MD [Non-Staff] - (she no longer sees Dr. Savage. she is following up with Dr. Brandan Manzo for PD now. ) Ez Garcia MD [Primary Care Provider] - Esme Andre MD [Med Staff - Active Staff] - Disposition Disposition (needs filled in before D/C Order can be placed): Custodial Facility (8) UTI (urinary tract infection) Qualifiers: Hematuria presence: without hematuria Urinary tract infection type: site unspecified Qualified Code(s): N39.0 - Urinary tract infection, site not specified (9) Hypertension Qualifiers: Hypertension type: primary hypertension Qualified Code(s): I10 - Essential (primary) hypertension (12) Dementia Qualifiers: Dementia behavioral or psychological symptom: with anxiety Dementia severity: mild Dementia type: Parkinson's disease Qualified Code(s): G20 - Parkinson's disease; F02.A4 - Dementia in other diseases classified elsewhere, mild, with anxiety
--- NOTE | 2023-08-20 12:11 | DS.PCM_ITS ---
Providers Date of Admission: 08/06/23 Date of Discharge: 08/21/23 Primary Care Physician: Dr. Ez Garcia MD none Reason For Visit: DEBILITY due Generalized weakness Diagnosis Discharge Diagnosis (1) Physical debility: Status: Acute Code(s): R53.81 - Other malaise (2) Generalized muscle weakness: Status: Acute Code(s): M62.81 - Muscle weakness (generalized) (3) Cecal volvulus: Status: Resolved Code(s): K56.2 - Volvulus (4) S/P right hemicolectomy: Status: Acute Code(s): Z90.49 - Acquired absence of other specified parts of digestive tract Plan: 08/01/23 - Dr. Andre (5) Acute on chronic anemia: Status: Chronic Code(s): D64.9 - Anemia, unspecified Plan: HGB is stable and on 08/15/23 it was 9.4. (6) Parkinsons disease: Status: Chronic Code(s): G20 - Parkinson's disease Plan: Follows with Dr. Brandan Manzo in [place]. (7) Anxiety and depression: Status: Chronic Code(s): F41.9 - Anxiety disorder, unspecified; F32.9 - Major depressive disorder, single episode, unspecified Plan: Citalopram decreased to 20 mg (the max dose for a 73 YO) and would continue to wean off and then start Remeron to treat depression, insomnia and poor appetite. Nando was started on rehab and her anxiety is in much better control and she has had no adverse SE's. (8) UTI (urinary tract infection): Status: Resolved Code(s): N39.0 - Urinary tract infection, site not specified Qualifiers: Hematuria presence: without hematuria Urinary tract infection type: site unspecified Qualified Code(s): N39.0 - Urinary tract infection, site not specified Plan: Catheter induced due to E. Coli. Treated with Macrodantin. (9) Hypertension: Status: Chronic Code(s): I10 - Essential (primary) hypertension Qualifiers: Hypertension type: primary hypertension Qualified Code(s): I10 - Essential (primary) hypertension Plan: Well controlled at [place]. Lopressor started to get pt to goal which is < 130/80. (10) Dyslipidemia: Status: Chronic Code(s): E78.5 - Hyperlipidemia, unspecified (11) GERD without esophagitis: Status: Chronic Code(s): K21.9 - Gastro-esophageal reflux disease without esophagitis (12) Dementia: Status: Suspected Code(s): F03.90 - Unspecified dementia, unspecified severity, without behavioral disturbance, psychotic disturbance, mood disturbance, and anxiety Qualifiers: Dementia behavioral or psychological symptom: with anxiety Dementia severity: mild Dementia type: Parkinson's disease Qualified Code(s): G20 - Parkinson's disease; F02.A4 - Dementia in other diseases classified elsewhere, mild, with anxiety Plan: she had a lot of confusion at admission to rehab and she has poor short term memory but, she has improved with ST. (13) Hallucination, visual: Status: Acute Code(s): R44.1 - Visual hallucinations Plan: Unclear whether this is due to PD OR to the medications used to tx the PD. She will follow up with Dr. Manzo to discuss hallucinations and poor appetite with wt loss (possibly due to medications). (14) Generalized weakness: Status: Acute Code(s): R53.1 - Weakness Plan: Has improved significantly while on rehab. She hopes to set strong enough so that she can move into assisted living rather than an ECF. Family is very supportive. (15) Dysphagia: Status: Acute Code(s): R13.10 - Dysphagia, unspecified Plan: Continue the pureed diet and the thin liquids. Ill fitting dentures are likely contributing to difficulty with chewing. Needs to follow up with dentist to remake dentures that fit properly. Has been losing wt and they are too big for her mouth. Plan 1. DC to SNF to continue PT/OT/ST - she has made excellent progress. 2. Going forward would consider weaning Citalopram off and starting Remeron to stimulate appetite and help with chronic insomnia. Could start low dose Remeron once the Citalopram has been weaned down to 10 mg for a week. Remeron has serotonin activity and the combined use can cause some sx of serotonin S. 3. Continue the Buspar - it has been very effective in controlling chronic anxiety and she has had no GI SE's. 4. Schedule a follow up appt with Dr. Brandan Manzo to discuss the hallucinations and the poor appetite which I suspect is related to SE of the PD medications. 5. Schedule a follow up with Dr. Andre 6. Advance to a regular diet with pureed textures and thin liquids Medications at Discharge Home Medications benztropine 2 mg tablet 1 mg PO BID PARKINSONS 07/20/16 simvastatin 20 mg tablet 20 mg PO QHS CHOLESTEROL 07/20/16 aspirin 81 mg chewable tablet 81 mg PO DAILY HEART HEALTH 08/01/23 omeprazole 40 mg capsule,delayed release 40 mg PO DAILY ACID REFLUX 08/01/23 pramipexole 0.25 mg tablet 0.25 mg PO TID PAKINSONS 08/01/23 rasagiline 1 mg tablet 1 mg PO DAILY PARKINSONS 08/01/23 valsartan 160 mg tablet 160 mg PO DAILY BLOOD PRESSURE 08/01/23 food supplemt, lactose-reduced 0.08 gram-1.5 kcal/mL oral liquid (Ensure Plus High Protein) 120 ml PO TIDCM supplement #0 mL 08/06/23 acetaminophen 500 mg tablet 1,000 mg (2 x 500 mg) PO Q8 PRN pain #1 TAB 08/20/23 alendronate 70 mg tablet 70 mg PO LEWIS osteoporosis #1 TAB 08/20/23 bisacodyl 10 mg rectal suppository 10 mg [place] .PRN X 1 PRN Constipation #1 ea 08/20/23 buspirone 5 mg tablet 5 mg PO TID #1 TAB 08/20/23 citalopram 20 mg tablet 20 mg PO DAILY DEPRESSION #1 TAB 08/20/23 loperamide 2 mg capsule 2 mg PO Q6H PRN PRN Diarrhea #1 cap 08/20/23 melatonin 3 mg tablet 3 mg PO QHS #1 TAB 08/20/23 metoprolol tartrate 25 mg tablet 12.5 mg (1/2 x 25 mg) PO BID #1 TAB 08/20/23 Hospital Course Operations - (R hemicolectomy by Dr. Andre) Procedures None Summary of Care Provided Minutes Spent on Discharge: 50 Hospital Course: PRASHANT HAYES, is a 73 YO F with a PMH of Parkinson's disease, depression, chronic anxiety, chronic insomnia, dysphagia, cognitive dysfunction, osteoporosis, GERD, alcohol use (per review of old H&P) and hypertension who presented to the ED at [facility] on 08/01/2023 complaining of abdominal pain and vomiting since the preceding day and inability to keep anything down on the day she presented to the ED. She had not had a bowel movement for 5 days. She had been seen in the ED on 07/28/2023 for a scalp laceration due to a fall. She uses a WC the majority of the time. 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 She was admitted to the hospital on Dr. Andre's service. NG was placed in the ED and she was started on Zosyn. She was taken to surgery on the at approximately 7PM and underwent an open R hemicolectomy. She was started on clear liquids on 08/04/23. She had some hallucinations and confusion in the hospital at night that was presumed to be due to MS. She was transitioned to Ibuprofen and Tylenol for pain. She continued to have delirium following the discontinuation of the narcotics. A UA was checked on 08/05/2023 and it was consistent with catheter induced urinary tract infection. Urine culture was positive for E. coli which was resistant to mamie quinolones and ampicillin. She was placed on Macrodantin when the culture was resulted. She was transferred to the acute inpatient rehab unit at [facility] on 08/06/2023 for 3 hours of therapy daily to restore function/independence at or near her prior level. She had been living by herself but recently has had some falls and family was concerned. They were investigating possible assisted living situations for her. Prashant was quite weak at presentation to rehab. She was also very anxious and not sleeping at night. She was having hallucinations, mostly visual. She was only able to ambulate 5' with a WW and she had very stiff, nearly frozen, ankles so she was walking on her tip toes. Her voice was very soft and it was difficult to understand her. She was having tremendous difficulty chewing and swallowing and had been losing wt. She was diagnosed with malnutrition by the carbon paper coating machine setter and supplements were provided. Her dentures do not fit since she has lost weight and they clack up and down when she is trying to chew. Intake has been better since she was transitioned to a pureed diet with thin liquids. she is getting steadily stronger. She is easily understandable now with less dysarthria and her voice is louder and projects better so I can now hear her wh en I am sitting on the opposite side of the room. Some of the Parkinson's medications she is taking are known to decrease appetite and I suspect this plays a part in her weight loss. She was started on Buspar at a low dose because of the potential interaction with Azilect. She tolerated 5 mg BID and the anxiety was improved but, she was still having some anxiety and fear about increasing activity and the new exercises she was being given. The dose was increased to 5 mg TID and her anxiety is now well controlled which she has had no adverse side effects. She has been taking Citalopram for many years and she was on 30 mg daily which is above the maximum recommended dose for someone Krystian cowan's age. The dose has been decreased to 20 mg daily and she is much more alert and improving faster with therapy. I would consider weaning her off Citalopram and trying to transition to Remeron at to help with insomnia and appetite in addition to treating depression. Prashant has really made progress in therapy. She is supervision/set up for eating and standby assist for grooming. She is supervision/set up for upper body dressing but requires moderate assistance still with bathing and lower body dressing. She needs only minimal assistance with toileting (to adjust the Attends) and is contact-guard assist now for toilet transfer. She also requires minimal assistance with tub/shower transfer. She has ambulated up to 120 feet with a front wheel walker at contact-guard assist with some voice cues to take larger steps. She is a shuffler. She is able to go from sitting to standing from various surfaces with min assist of 1 can is able to do 4 STS in 30 sec. she has ascended/descended two 6 inch steps with 2 handrails at contact-guard assist for 2 sets. She is able to write checks and enter info into her check register accurately. She has some math calculation errors but she is able to correct for 100% accuracy with cueing. Vocal intensity and intelligibility have improved since admission. Deficits in short-term memory persist but she is using repetition, visualization and external strategies to improve recall. Prashant has worked very hard and made significant progress. She is very motivated to get better so that she can live in an assisted living situation rather than an ECF. Her sister Moo has been very supportive of her. At the time of her discharge her hemoglobin is stable at 9.4. Sodium and potassium are within normal limits and the BUN is 14 with a creatinine of 0.84 which is within her baseline. Magnesium is now 2.2 with supplementation. Prashant was transferred to [facility] on 08/21/23 for additional PT/OT/ST. She is going to follow up with her neurologist, Dr. Brandan Manzo, and discuss the decreased appetite and the hallucinations. The hallucinations have decreased since admission ( I suspect the pain medications were contributing to hallucinations) and she realizes that the things she sees are not real. For a few nights prior to DC she did not have any hallucinations. She seems to see a skunk often with her hallucinations. Her appetite is getting somewhat better and at times now she is consuming 50-74% of her meals, up from 25-49%. She will need to see her management aide for her ill fitting dentures and hopefully this will improve her mastication efficiency. Physical Exam Const alert and no apparent distress Constitutional Narrative: Speaking in complete sentences. She is much more alert than she was at admission and she was not having difficulty with word finding today so fluidity of speech is better. General Appearance: cooperative HEENT normocephalic and moist oral mucous membranes HEENT Narrative: No thrush. Eyes PERRL and EOMs intact bilaterally Eyes Narrative: Decreased blink General Eye: normal appearance of both eyes Neck supple General: trachea midline Chest Chest: symmetrical chest wall rise Resp normal respiratory effort, normal air movement and no retractions Resp Narrative: she has coarse crackles in the Left base today which did not completely clear after a few deep breaths. She is not coughing, except occasionally with drinking. She is AF and denies SOB. The crackles are new however and if she d evelops a fever or the CBC ordered to be done at [facility] shows a leukocytosis would check a CXR. Effort and Inspection: Negative for tachypneic or labored Cardio regular rate, regular rhythm, no murmurs, no rub and no gallops Cardio Narrative: No ectopy Bruits: Negative for carotid bruit or abdominal aortic bruit GI normal to inspection, nondistended, normoactive bowel sounds, soft to palpation, non-tender and non-distended GI Narrative: no guarding with palpation. No longer complaining of diarrhea. no CVA tenderness Extremity Negative for no calf tenderness General Extremity: Negative for edema Skin no jaundice General Skin Exam: no breakdown Rashes: no rashes Wound Narrative: The scalp laceration is healed and there is no swelling, dehiscence, no erythema and no DC. The abdominal incision is healing well with no dehiscence, no swelling, no erythema and no discharge. The rash that was present in the zach- incisional area at admission to rehab has completely resolved. Neuro CN's II-XII intact bilaterally, moves all extremities and no focal motor defici ts Neuro Narrative: /Prashant's voice is stronger and I can now hear her from across the room. The dysarthria is much better and she is enunciating clearly. Psych cooperative and affect normal Appearance: appropriate and well kempt Attitude: engaged Activity / Motor Behavior: appropriate eye contact; Negative for psychomotor agitation, fidgetting, hyperactive or restless Mood & Affect: euthymic mood Thought Content: No suicidality, No homicidality, No phobia(s) and hallucination(s) Positive for visual Medical Records Data Medical Nutrition Assessment Dietitian: Malnutrition Criteria Met Start: 08/12/23 14:01 Freq: Status: Active Protocol: Document 08/19/23 16:39 RMA (Rec: 08/19/23 16:40 RMA [id number]) Nutrition Malnutrition Evidence of Malnutrition Exists Yes Malnutrition (severe): Acute Illness/Injury Evidenced By Suboptimal Energy Intake ( Severe),Weight Loss (Severe) Intake Problem Inadequate Oral Intake Etiology related to possible depression /emotional instability and s/p abd surgery/poor appetite Signs/Symptoms as evidenced by <49% PO at most meals Status Inactive Problem Clinical Problem Acute Disease or Injury Related Malnutrition Etiology severe related to possible depression/emotional instability, inadequate oral intake and s/p abd surgery/ poor appetite Signs/Symptoms as evidenced by <50% PO intakes for >10 days and 4.4% weight loss in 8 days. Status Active Problem Recommendation Dietitian Recommendations/Changes Extended period of time on Transitional diet--Recommend liberalized regular diet as tolerated with consistency/ texture as per TRANSPLANT WORKER. Continue ensure plus high protein TID w/ medpass. Continue Magic Cup BID w/ lunch and dinner. Adjust ONS to optimize oral intake and prevent weight loss . Weight / BMI Weight Weight: 130 lb 8.218 oz Body Mass Index (BMI) 23.8 ABG / Lab / Microbiology Data 08/15/23 05:11 08/15/23 05:11 D/C Instructions Please Follow Up With: Esme Andre MD Meaningful Use Info Meaningful Use Diagnoses (Choose all that apply): None applicable Discharge Plan Admission Admit Date/Time: 08/06/23 14:30 Primary Reason for Your Visit: Debility due to generalized weakness after R hemicolectomy Attending Provider: Noemy Shah Primary Care Provider: Ez Garcia Discharge Orders/Prescriptions Prescriptions: New acetaminophen 500 mg Tablet 1,000 mg PO Q8 PRN (Reason: pain) Qty: 1 0RF buspirone 5 mg Tablet 5 mg PO TID Qty: 1 0RF loperamide 2 mg Capsule 2 mg PO Q6H PRN PRN (Reason: Diarrhea) Qty: 1 0RF melatonin 3 mg Tablet 3 mg PO QHS Qty: 1 0RF bisacodyl 10 mg Suppository 10 mg WY .PRN X 1 PRN (Reason: Constipation) Qty: 1 0RF metoprolol tartrate 25 mg Tablet 12.5 mg PO BID Qty: 1 0RF Continued simvastatin 20 MG tablet 20 mg PO QHS benztropine 2 MG tablet 1 mg PO BID omeprazole 40 mg capsule,delayed release(DR/EC) 40 mg PO DAILY pramipexole 0.25 mg tablet 0.25 mg PO TID Patient Comments: START DATE: 08-03-23 rasagiline 1 mg tablet 1 mg PO DAILY valsartan 160 mg tablet 160 mg PO DAILY aspirin 81 MG tablet,chewable 81 mg PO DAILY Ensure Plus High Protein 0.08 gram-1.5 kcal/mL Liquid 120 ml PO TIDCM Qty: 0 0RF alendronate 70 mg tablet 70 mg PO LEWIS Qty: 1 0RF Rx Instructions: Take Saturday AM on and empty stomach and do not lay down or eat for 30 minutes. citalopram 20 mg tablet 20 mg PO DAILY Qty: 1 0RF Discontinued citalopram 10 mg tablet 10 mg PO DAILY Patient Comments: TAKE ONE 10MG AND ONE 20MG TABLET TOGETHER ONCE EVERY NIGHT FOR A TOTAL DOSE OF 30MG. melatonin 5 mg tablet 10 mg PO QHS Hold Instructions: Ordered acetaminophen 500 mg Tablet 1,000 mg PO Q8 7 Days Qty: 42 0RF nitrofurantoin monohyd/m-cryst [Macrobid] 100 mg capsule 100 mg PO Q12H 5 Days Qty: 10 0RF Rx Instructions: must administer with a meal/food Referrals / Follow Up: Brandan Manzo [Other] - 08/28/23 1:45 pm (Neurology ) Ez Garcia MD [Primary Care Provider] - Esme Andre MD [Med Staff - Active Staff] - 09/03/23 1:30 pm Disposition Disposition (needs filled in before D/C Order can be placed): Detention Facility Charges/Coding Visit Charges Inpatient E&M: 81166 Disch Hosp >30min
--- NOTE | 2023-08-20 14:48 | NS ---
Clarified diet order w/ Dr. Ed munoz for regular diet pureed (no fiber restriction/transitional diet as indicated in comments of diet order). Kitchen staff updated. Diet order updated. Ayden Remy MS, RDN, LD
--- NOTE | 2023-08-20 15:30 | CASEMGMT ---
Social Work 7000 completed and DC paperwork sent to [facility] via [employer]. Sister to transport. Doris Henson, OVERCOIL STEPPER MANAGER BUILDING
[2023-08-20 21:45] VITALS: BP 128/58; PULSE 65; RESP 17; TEMP 36.7; O2SAT 94
[2023-08-20 22:07] VITALS: PULSE 65
[2023-08-20] MEDS: Metoprolol Tartrate 25 MG Tablet 12.5 MG PO (22:07)
[2023-08-20] MEDS: MELATONIN 3 MG TABLET PO (22:08)
[2023-08-20] MEDS: Atorvastatin Calcium 10 MG Tablet PO (22:09)
[2023-08-21] MEDS: busPIRone 5 MG Tablet PO (05:34)
[2023-08-21] MEDS: Enoxaparin 40 MG/0.4 ML Syringe SC (05:34)
[2023-08-21] MEDS: Acetaminophen 500 MG Tablet 1000 MG PO (05:34)
[2023-08-21] MEDS: Pramipexole Di-HCl 0.25 MG Tablet PO (05:34)
[2023-08-21 07:36] VITALS: BP 136/74; PULSE 53; RESP 17; TEMP 35.8; O2SAT 98
[2023-08-21 08:38] VITALS: BP 136/74; PULSE 63
[2023-08-21] MEDS: Pantoprazole Sodium 40 MG Tablet PO (08:38)
[2023-08-21] MEDS: Citalopram 20 MG Tablet PO (08:38)
[2023-08-21] MEDS: Metoprolol Tartrate 25 MG Tablet 12.5 MG PO (08:38)
[2023-08-21] MEDS: Losartan Potassium 50 MG Tablet PO (08:40)
[2023-08-21] MEDS: Benztropine 2 MG Tablet 1 MG PO (08:40)
[2023-08-21] MEDS: Menthol/Lanolin/Calamine/Znox 113 GM Tube 1 APPLIC TOPICAL (08:40)
[2023-08-21] MEDS: Aspirin 81 MG TAB.CHEW PO (08:40)
[2023-08-21] MEDS: Ensure Plus High Protein 120 ML LIQUID PO (08:42)
[2023-08-21 13:32] VITALS: BP 136/74; PULSE 53; RESP 17; TEMP 35.8; O2SAT 98
--- NOTE | 2023-08-21 13:32 | NURSING ---
Discharged to [facility] via family transport. report called to Tere
== END 2023-08-21 13:34 | disposition skilled nursing facility (03) | DRG 949 ==
PROVIDERS: Admitting Provider Internal Medicine; PCP Family Medicine; Visit Provider Internal Medicine
DX: Z48.815 Encounter for surgical aftercare following surgery on the digestive system (principal); K56.2 Volvulus; E43 Unspecified severe protein-calorie malnutrition; F02.A4 Dementia in other diseases classified elsewhere, mild, with anxiety; N39.0 Urinary tract infection, site not specified; Z16.11 Resistance to penicillins; Z16.23 Resistance to quinolones and fluoroquinolones; I10 Essential (primary) hypertension; F32.9 Major depressive disorder, single episode, unspecified; E78.5 Hyperlipidemia, unspecified; K21.9 Gastro-esophageal reflux disease without esophagitis; W19.XXXD Unspecified fall, subsequent encounter; R44.1 Visual hallucinations; G20.A1 Parkinson's disease without dyskinesia, without mention of fluctuations; T83.511D Infection and inflammatory reaction due to indwelling urethral catheter, subsequent encounter; S01.01XD Laceration without foreign body of scalp, subsequent encounter; B96.20 Unspecified Escherichia coli [E. coli] as the cause of diseases classified elsewhere; R13.10 Dysphagia, unspecified; Z79.82 Long term (current) use of aspirin; G47.00 Insomnia, unspecified; Z79.83 Long term (current) use of bisphosphonates; M62.81 Muscle weakness (generalized); Z79.899 Other long term (current) drug therapy; Z90.49 Acquired absence of other specified parts of digestive tract; Z68.23 Body mass index [BMI] 23.0-23.9, adult
CPT/HCPCS: 36415; 80048; 80053; 83735; 84100; 85027; 92507; 92523; 92526; 92610; 92611; 94762; 97110; 97112; 97116; 97129; 97130; 97162; 97166; 97530; 97535; 97802; 97803; A4216

== ENCOUNTER → 2024-12-11 | Outpatient (CLI) | payer MEDICARE, BC, SELFPAY | END | disposition home or self-care (01) | LOC: RAD 12:24 | PROVIDERS: PCP Family Medicine; Referring Provider Physician Assistant; Visit Provider Physician Assistant | DX: G20.A1 Parkinson's disease without dyskinesia, without mention of fluctuations (principal); R13.12 Dysphagia, oropharyngeal phase; R49.0 Dysphonia | CPT/HCPCS: 74230 ==

== ENCOUNTER 2025-01-06 14:00 | Outpatient (RCR) | payer MEDICARE, BC, SELFPAY ==
--- NOTE | 2024-11-24 09:54 | ST ---
[facility] Speech Pathology [address] [place] [address] Modified Barium Swallow Study MR#: [id number] Acct: [id number] Name: PRASHANT HAYES Rep #: [id number] : 1950 Age: 71 From: Kathy Leung M.A., [facility] [facility] Modified Barium Swallow - Patient Information Study Date: 01/30/22 Study Time: 13:00 Direct Billable Minutes: 95 Total Minutes procedure & reportin Diagnosis: Parkinson's disease (G20) Referring Physician: Ruby Chow Dr. Reason for Referral: Objectively assess swallow function, risk for aspiration, and determine recommendations for least restrictive diet textures and compensatory strategies to improve safety of swallow. Medical History: The patient is a 71 year old female with PMH history including Parkinson's (diagnosed ~3-4 years ago), Dyslipidemia, GERD without esophagitis, Hypertension (SEE H&P for full PMH). She also reports recent falls, which resulted in her hitting the back of her head without loss of consciousness. The patient had BSE completed at [facility] 01/16/2022 recommending MBS study to objectively assess swallow function and aspiraiton risk. She currently consumes soft solids and thin liquids with reports for choking/coughing episodes with solids, which at times has resulted in emesis. She has not required the Heimlich maneuver in the past. She consumes thin liquids with intermittent coughing, as well. The patient's sister, Moo, was present for evaluation. Current Diet Ordered: Soft solids / Thin liquids Dentition: Upper Dentures, Lower Dentures Mental Status: WNL Respiratory Status: Oxygenating on Room Air - Penetration-Aspiration Scale Penetration-Aspiration Scale: OBJECTIVE ASSESSMENT OF SWALLOW FUNCTION (QUANTITATIVE ? PER TRIAL): PENETRATION / ASPIRATION SCALE (HUTTON): 1 = does not enter airway 2 = enters airway/above vocal folds/ejected 3 = enters airway/above vocal folds/not ejected 4 = enters airway/contacts vocal folds/ejected 5 = enters airway/contacts vocal folds/not ejected 6 = enters airway/below vocal folds/ejected 7 = enters airway/below vocal folds/not ejected despite effort 8 = enters airway/below vocal folds/no effort VIDEOFLOROSCOPIC SCALE SCORE (HUTTON): Grade I = aspiration of material that has penetrated into the laryngeal vestibule, intact cough reflex Grade II = aspiration < 10 % of the bolus, intact cough reflex Grade III = aspiration of < 10 % of the bolus, reduced cough reflex or aspiration of > 10 % of the bolus, intact cough reflex Grade IV = aspiration of > 10 % of the bolus, reduced cough reflex - Penetration-Aspiration Scale Score Thin Liquid via teaspoon Result: 1= does not enter airway Thin Liquid via teaspoon Trial 2 Result: 1= does not enter airway Thin Liquid via sequential sips from cup Result: 1= does not enter airway [place] Thick Liquid via sequential sips from cup Result: 1= does not enter airway [place] Thick Liquid via small single sip from cup Result: 1= does not enter airway Pudding with esophageal screen Result: 1= does not enter airway Cookie Result: 1= does not enter airway Thin Liquid via single sip from straw Result: 5= enters airways/contacts vocal folds/not ejected Thin Liquid via sequential sips from straw Result: 5= enters airways/contacts vocal folds/not ejected Thin Liquid via small single sip from cup Result: 1= does not enter airway Thin Liquid via small single sip from cup Trial 2 Result: 1= does not enter airway - Oral Phase Labial Seal: No Labial Escape Tongue Control During Bolus Hold: Posterior escape of less than half of bolus Bolus Preparation/Mastication: Disorganized chewing/mashing with solid pieces of bolus unchewed Bolus Transport/Lingual Motion: Slowed tongue motion Oral Residue: Trace residue lining oral structures - Pharyngeal Phase Initiation of Pharyngeal Swallow: Bolus head in pyriforms Soft Palate Elevation: No bolus between soft palate and pharyngeal wall Laryngeal Elevation: Partial superior movement thyroid cart/partial apprx aryt-epig petiole Anterior Hyoid Excursion: Partial anterior movement Epiglottic Movement: Partial inversion Laryngeal Vestibule Closure at Height of Swallow: Incomplete; narrow column of air/contrast in laryngeal vestibule Pharyngeal Stripping Wave: Present - complete Pharyngoesophageal Segment Opening: Parital distension and partial duration; parital obstruction of flow Tongue Base Retraction: Wide column of contrast between tongue base & post. pharyngeal wall Pharyngeal Residue: Collection of residue within or on pharyngeal structures - Esophageal Phase Esophageal Clearance: Esophageal retention w/ retrograde flow below pharyngoesophageal seg. - Majority of the bolus cleared esophagus - min retention in upper esophagus with retrograde flow just below upper esophageal sphincter. - Diagnosis/Impression Diagnosis: Mild oropharyngeal phase dysphagia (R13.12) Impression: The oral phase is primarily marked by decreased mastication, decreased bolus control, and slowed A-P transport. She required prolonged mastication with posterior loss of cookie bolus to the vallecula. With certain trials of thin liquids, the pt demonstrated posterior loss of bolus to the pyriforms, resulting in suboptimal bolus placement upon swallow onset. The pharyngeal phase is primarily marked by decreased airway closure due to decreased laryngeal elevation and anterior hyoid excursion. She also has decreased tongue base retraction with resulting residue in the vallecula after the swallow. With sips via straw, the patient demonstrated laryngeal penetration of contrast to the vocal folds that did not fully eject. Although no aspiration was noted on the exam, the patient is at increased risk for post prandial aspiration of contrast remaining in the laryngeal vestibule. She also is at increased risk for choking and aspiration with solid textures due to impaired mastication. Min retention of contrast in the upper esophagus with retrograde flow below UES. Majority of bolus demonstrated timely esophageal clearance. - Recommendations Diet: Thin Liquids - Soft and Bite Size Textures (IDDSI Level 6) Compensatory Strategies: Small Bites, Small Sips, No Straws, Slow Rate - Sips one at a time, Sitting upright, Remain sitting upright for 30 minutes after PO intake, Minimize/decrease distractions - Wait to speak until after completing each bite/sip, Assist with verbal cues to use recommended strategies Recommend Repeat Modified Barium Swallow: TBD Need for Skilled Speech Therapy Services: Yes Comment: Will recommend the patient for outpatient dysphagia therapy to address deficits in oropharyngeal swallow function. Would consider the patient for oropharyngeal strengthening to improve mastication, tongue base retraction, laryngeal elevation, and hyoid excursion (Consider use of Silvina, tongue retraction, Felipe, effortful swallows, CTAR). The patient would benefit from thorough education regarding diet recommendations and recommended compensatory strategies. Education Completed: 1. Described result of evaluation. - Discussed results of the study via review of images and handout for soft and bite size textures testing and preparation. Education well received by pt's sister, Moo. The patient would benefit from continued education., 4. Family/caregivers understand evaluation & agree w/ goals & tx plan., 7. Pt requires further education on strategies & risks. - Status Active ST Patient: Active - Contact Information [facility] Speech Therapy:: Kathy Leung M.A. [facility] Speech-Language Pathologist [facility] [address] [place] [address] [email or web address] [phone]
--- NOTE | 2024-11-24 10:24 | HP.SP.EV_ITS ---
Visit History Visit Info Date of Eval: 11/23/24 Visit: 1 [place] Cutter Operator: JULIANO Naranjo Attending Doctor: ALINA Referring Doctor: ALINA Reason for Referral: DYSPHAGIA. RX HERE Previous speech therapy: Yes Results: Evaluation on 01/16/2022 with MBSS on 01/30/22, along with tx for dysphagia and voice Other Relevant Medical History/Diagnoses/Surgery: PRASHANT HAYES is a 74 year old female who presents to [facility] Speech Therapy PMH history including Parkinson's (diagnosed ~5-6 years ago), Dyslipidemia, GERD without esophagitis, Hypertension, Oropharyngeal Dysphagia (SEE H&P for full PMH). She has a hx of falls, which resulted in her hitting the back of her head without loss of consciousness. The patient had BSE completed at [facility] rehabilitation 01/16/2022 recommending MBS study to objectively assess swallow function and aspiration risk. See her previous MBSS report below which rx soft and bite size solids and thin liquids along with swallowing strategies and recommendation for oropharyngeal strengthening exercises. She has not required the Heimlich maneuver in the past. She reports her swallowing got better after therapy in 2021, but recently she started noticing intermittent coughing while drinking along randomly when sitting in a chair. At her last neurology appt, Dr. Chow recommended starting speech therapy again. The patient's sister, Moo, was present for evaluation. Medications related to this diagnosis: Aspirin, Benztropine, B12, Celexa, Folic Acid, Melatonin, Omeprazole, Pramipexole, Rasagiline, Simvistatin, Slow FE Iron, Valsartan, Vitamin C, Vitamin D3 Smoking Status: Never smoker Diagnosis Diagnosis: Parkinson's disease, Oropharyngeal Dysphagia, Dysphonia Pain Is pain an issue with your current prescribed condition?: No Personal Preferred language: Icelandic Patient Allergies Allergies Allergies: Allergies codeine Adverse Reaction (Verified 09/03/23 13:40) CRAZY DREAMS DOES NOT LIKE TO TAKE IT Subjective Dysphagia Symptoms Reported Symptoms/Problems with: Coughing, Choking, Difficulty Swallowing Liquids and Difficulty Swallowing Pills Current Diet Solids Current Diet: Soft Current Diet Liquids Current Liquids: Thin Comments Oral Motor Exam: -: Prashant participated in an oral motor exam demonstrating lingual protrusion and lateralization, labial seal WFL, and symmetrical velum movement. Prashant was wearing only her upper denture d/t her lower dentures not fitting well. Moo stating they have been refitted a few times but they are still not fitting well. Prashant will eat with either just the upper dentures in or neither. Depending on what she is wearing will often dictate the types of foods she will eat. She appears to be aware of limitations when she does not wear the upper denture. Objective Dysphagia Administered by Administered by: Self Thin Liquids Administred via: Cup and Straw Oral Transit: WNL Bolus clearance: fully cleared Gagging: No Cough: immediate and productive Pharyngeal phase: suspect pharyngeal deficits Patient Report: ST reviewed results of the previous MBSS recommending no straws d/t PAS of [address] on [address] those trials[address] ST explaining what this score meant. Prashant and Moo stating that straws have cont'd to be used b/c it is difficult for her to tip her head back far enough to get the full drink from the cup. She reports no difficulty with coughing when using the straw. ST stating she may not be feeling the drinks on her cords but that doesn't mean it isn't sitting on them. Discussed how even so, she has not developed aspiration pneumonia or acquired other respiratory dx since her previous MBSS. Education provided on recommendations are made considering her overall health, MBSS findings, quality of life, and her participation in safe swallowing strategies. Comments: Prashant trialing drinks via single cup, sequential cup, single straw, and sequential straw with no overt s/sx of penetration/aspiration. She utilized a liquid wash via straw following the LornaDoone trial which resulted in immediate coughing. Pt needing additional sips to wash down the cookie crumbs. The additional sips did not reveal s/sx of pen/asp. Soft & Bite sized (Mechanical) Oral Preparation: minimal chew thrust gravity assisted Oral Transit: Delay > 1 seconds Bolus clearance: significant clearance/minimal residue Cough: none observed/unable to assess Pharyngeal phase: immediate laryngeal elevation Comments: Prashant trialed a fruit cup with peaches and pears. Pt politely declining trialing the pineapple d/t suspecting it would be too fibrous to masticate. Prashant's first trial of peach was appropriately masticated and controlled with Pt stating that was an easy texture for her. Pt trialing a pear and requested to expectorate the pear d/t being unable to fully masticate. Pt consuming 3 additional peaches (1 at a time) with functional mastication, oral transport, and suspected lingual control with no overt s/sx of pen/asp. Regular Oral Preparation: minimal chew thrust gravity assisted Oral Transit: Delay > 5 seconds Bolus clearance: significant clearance/minimal residue Gagging: No Cough: immediate and productive Pharyngeal phase: suspect pharyngeal deficits Comments: Prashant consumed half of a LornaDoone with slow mastication with suspected difficulties on lingual lateralization and bolus formation prior to initiated swallow d/t immediate coughing following swallow. Pt also reporting there are crumbs left. Pt benefiting from a liquid wash via straw to eliminate the crumbs but also demonstrated s/sx of pen/asp via immediate coughing with 1 of 4 sips. Pt reports that she will eat LornaDoones at home when wearing her upper dentures. Swallowing Impairment Contributing Factors to Swallowing Impairment: Reduced Alertness or Attention, Mastication Inefficiency and Impaired Oral-Pharyngeal Transport Impact Impact on Safety & Functioning: Risk for Aspiration Recommendations Modified Barium Swallow/Cookie Swallow Recommended: Yes Swallowing Treatment: Yes Diet Texture Recommendations Solids: Soft & Bite sized (Level 6, Chopped) Liquids: Thin (Level 0) Safety Saftey Precautions/Swallowing Recommendations (Check all that Apply): Supervision Needed All Meals, Reduce Distractions, Needs Verbal Cues to Use Recommended Strategies and Small Sips & Bites when Eating Results Swallowing Within Normal Limits: No Swallowing Diagnosis: Oropharyngeal Phase Dysphagia (R13.12) Severity: Moderate Modified Barium Results Hx If Applicable Enter into a NOTE MBS Report Entered: Yes MBS Results (from prior exam): 11/24/24 09:54 Speech Therapy by [facility] Speech Pathology [address] [place] [address] Modified Barium Swallow Study MR#: [id number] Acct: [id number] Name: PRASHANT HAYES Rep #: [id number] : 1950 Age: 71 From: Kathy Leung M.A. [facility] Modified Barium Swallow - Patient Information Study Date: 01/30/22 Study Time: 13:00 Direct Billable Minutes: 95 Total Minutes procedure & reportin Diagnosis: Parkinson's disease (G20) Referring Physician: Waight, E. - Dr. Alayna Waight Reason for Referral: Objectively assess swallow function, risk for aspiration, and determine recommendations for least restrictive diet textures and compensatory strategies to improve safety of swallow. Medical History: The patient is a 71 year old female with PMH history including Parkinson's (diagnosed ~3-4 years ago), Dyslipidemia, GERD without esophagitis, Hypertension (SEE H&P for full PMH). She also reports recent falls, which resulted in her hitting the back of her head without loss of consciousness. The patient had BSE completed at [facility] 01/16/2022 recommending MBS study to objectively assess swallow function and aspiraiton risk. She currently consumes soft solids and thin liquids with reports for choking/coughing episodes with solids, which at times has resulted in emesis. She has not required the Heimlich maneuver in the past. She consumes thin liquids with intermittent coughing, as well. The patient's sister, Moo, was present for evaluation. Current Diet Ordered: Soft solids / Thin liquids Dentition: Upper Dentures, Lower Dentures Mental Status: WNL Respiratory Status: Oxygenating on Room Air - Penetration-Aspiration Scale Penetration-Aspiration Scale: OBJECTIVE ASSESSMENT OF SWALLOW FUNCTION (QUANTITATIVE ? PER TRIAL): PENETRATION / ASPIRATION SCALE (HUTTON): 1 = does not enter airway 2 = enters airway/above vocal folds/ejected 3 = enters airway/above vocal folds/not ejected 4 = enters airway/contacts vocal folds/ejected 5 = enters airway/contacts vocal folds/not ejected 6 = enters airway/below vocal folds/ejected 7 = enters airway/below vocal folds/not ejected despite effort 8 = enters airway/below vocal folds/no effort VIDEOFLOROSCOPIC SCALE SCORE (HUTTON): Grade I = aspiration of material that has penetrated into the laryngeal vestibule, intact cough reflex Grade II = aspiration < 10 % of the bolus, intact cough reflex Grade III = aspiration of < 10 % of the bolus, reduced cough reflex or aspiration of > 10 % of the bolus, intact cough reflex Grade IV = aspiration of > 10 % of the bolus, reduced cough reflex - Penetration-Aspiration Scale Score Thin Liquid via teaspoon Result: 1= does not enter airway Thin Liquid via teaspoon Trial 2 Result: 1= does not enter airway Thin Liquid via sequential sips from cup Result: 1= does not enter airway [place] Thick Liquid via sequential sips from cup Result: 1= does not enter airway [place] Thick Liquid via small single sip from cup Result: 1= does not enter airway Pudding with esophageal screen Result: 1= does not enter airway Cookie Result: 1= does not enter airway Thin Liquid via single sip from straw Result: 5= enters airways/contacts vocal folds/not ejected Thin Liquid via sequential sips from straw Result: 5= enters airways/contacts vocal folds/not ejected Thin Liquid via small single sip from cup Result: 1= does not enter airway Thin Liquid via small single sip from cup Trial 2 Result: 1= does not enter airway - Oral Phase Labial Seal: No Labial Escape Tongue Control During Bolus Hold: Posterior escape of less than half of bolus Bolus Preparation/Mastication: Disorganized chewing/mashing with solid pieces of bolus unchewed Bolus Transport/Lingual Motion: Slowed tongue motion Oral Residue: Trace residue lining oral structures - Pharyngeal Phase Initiation of Pharyngeal Swallow: Bolus head in pyriforms Soft Palate Elevation: No bolus between soft palate and pharyngeal wall Laryngeal Elevation: Partial superior movement thyroid cart/partial apprx aryt- epig petiole Anterior Hyoid Excursion: Partial anterior movement Epiglottic Movement: Partial inversion Laryngeal Vestibule Closure at Height of Swallow: Incomplete; narrow column of air/contrast in laryngeal vestibule Pharyngeal Stripping Wave: Present - complete Pharyngoesophageal Segment Opening: Parital distension and partial duration; parital obstruction of flow Tongue Base Retraction: Wide column of contrast between tongue base & post. pharyngeal wall Pharyngeal Residue: Collection of residue within or on pharyngeal structures - Esophageal Phase Esophageal Clearance: Esophageal retention w/ retrograde flow below pharyngoesophageal seg. - Majority of the bolus cleared esophagus - min retention in upper esophagus with retrograde flow just below upper esophageal sphincter. - Diagnosis/Impression Diagnosis: Mild oropharyngeal phase dysphagia (R13.12) Impression: The oral phase is primarily marked by decreased mastication, decreased bolus control, and slowed A-P transport. She required prolonged mastication with posterior loss of cookie bolus to the vallecula. With certain trials of thin liquids, the pt demonstrated posterior loss of bolus to the pyriforms, resulting in suboptimal bolus placement upon swallow onset. The pharyngeal phase is primarily marked by decreased airway closure due to decreased laryngeal elevation and anterior hyoid excursion. She also has decreased tongue base retraction with resulting residue in the vallecula after the swallow. With sips via straw, the patient demonstrated laryngeal penetration of contrast to the vocal folds that did not fully eject. Although no aspiration was noted on the exam, the patient is at increased risk for post prandial aspiration of contrast remaining in the laryngeal vestibule. She also is at increased risk for choking and aspiration with solid textures due to impaired mastication. Min retention of contrast in the upper esophagus with retrograde flow below UES. Majority of bolus demonstrated timely esophageal clearance. - Recommendations Diet: Thin Liquids - Soft and Bite Size Textures (IDDSI Level 6) Compensatory Strategies: Small Bites, Small Sips, No Straws, Slow Rate - Sips one at a time, Sitting upright, Remain sitting upright for 30 minutes after PO intake, Minimize/decrease distractions - Wait to speak until after completing each bite/sip, Assist with verbal cues to use recommended strategies Recommend Repeat Modified Barium Swallow: TBD Need for Skilled Speech Therapy Services: Yes Comment: Will recommend the patient for outpatient dysphagia therapy to address deficits in oropharyngeal swallow function. Would consider the patient for oropharyngeal strengthening to improve mastication, tongue base retraction, laryngeal elevation, and hyoid excursion (Consider use of Silvina, tongue retraction, Felipe, effortful swallows, CTAR). The patient would benefit from thorough education regarding diet recommendations and recommended compensatory strategies. Education Completed: 1. Described result of evaluation. - Discussed results of the study via review of images and handout for soft and bite size textures testing and preparation. Education well received by pt's sister, Moo. The patient would benefit from continued education., 4. Family/caregivers understand evaluation & agree w/ goals & tx plan., 7. Pt requires further education on strategies & risks. - Status Active ST Patient: Active - Contact Information [facility] Speech Therapy:: Kathy Leung M.A. [facility] Speech-Language Pathologist [facility] [address] [place] [address] [email or web address] [phone] Initialized on 11/24/24 09:54 - END OF NOTE Swallowing Performance Scale Swallowing Performance Scale Swallowing Performance Scale Result: 4 Mild to Moderate Reference: Neuro-QoL instrument Radiation Oncology Patient Plan Plan Plan: Will rx Pt for skilled outpatient tx to address deficits in mild-mod oropharyngeal dysphagia. Pt would benefit from training and education re: process of diet tolerance checks, and swallowing exercises to aid in oropharyngeal strengthening. Without skilled intervention, Pt is at risk for consuming a restrictive diet putting her at risk for aspiration pneumonia and atrophy of laryngeal musculature. Recommendations Treatment Warranted: Yes Treatment Warranted: Dysphagia and Voice Progress Prognosis: Good Frequency Frequency: 2x /Week Duration: 3 Months Patient/Family Goal Patient/Family Goal: To improve swallow function and intensity of voice. Goals that are Established Determination:: Goals will be added/modified as deemed necessary and appropriate. Therapy will be discontinued when results of re-evaluation indicate therapy is no longer needed or lack of progress has been documented. Goal #1-5 Goal #1: Prashant will participate in a Modified Barium Swallow Study to objectively assess swallow function and determine least restrictive diet and appropriate oropharyngeal strengthening exercises. Goal #2: Prashant will participate in a voice assessment to assess baseline vocal intensity. Education Patient has Indicated that the Following Identified Educational Needs: None The Patient has indicated that they have no educational or learning abilities that may effect their care.: Yes Patient Instruction Patient Education: Diagnosis and Treatment Plan Person Taught: Patient and Family Teaching Method: Discussion and Demonstration Response to teaching: Return Demonstration and Verbalize Understanding
--- NOTE | 2024-12-11 11:56 | SP.MBSS_ITS ---
Modified Barium Swallow Patient Information Study Date: 12/11/24 Study Time: 12:30 Direct Billable Minutes: 115 Total Minutes procedure & reportin Diagnosis: Dysphagia R13.10 Referring Physician: Alayna Chow Reason for Referral: Re-assess swallow function and aspiration risk to determine LRD textures and strategies to decrease risk for aspiration. This MENTAL HEALTH ASSISTANT spoke w/ pt's OP MENTAL HEALTH ASSISTANT, Fallon Martinez, prior to MBSS. Will consider pt for sips via straw due to pt having difficulty self-administering sips by cup. Medical History: PMH: ?Parkinson?s, GERD, HTN, Hx of falls w/ hitting head, Dementia, Generalized weakness, Dysphagia, Physical debility ? See EMR for full PMH. The patient has extensive history of dysphagia w/ past MBSS 01/30/2022 revealing mild oropharyngeal dysphagia and recommending soft and bite size textures / thin liquids w/ no straws (See study for full precautions). Patient has attended OP ST on and off to manage dysphagia dysphonia secondary to Parkinson?s disease. She also had ST POC during inpatient rehabilitation stay from 08/09/2023- 08/20/2023 to manage dysphagia and cognitive-communication deficit. Most recently, she began OP ST POC 11/24/2024. BSE recommended soft and bite size textures / thin liquids w/ supervision needed all meals, reduce distractions, needs verbal cues to use recommended strategies and small sips & sites when eating. Pt was recommended for repeat MBSS, as well as OP voice evaluation. Current Diet Ordered: Soft and bite size textures / thin liquids Dentition: Upper Dentures (lower dentures are ill fitting) Mental Status: Impaired (Hx of dementia) Respiratory Status: Oxygenating on Room Air Penetration-Aspiration Scale Penetration-Aspiration Scale: OBJECTIVE ASSESSMENT OF SWALLOW FUNCTION (QUANTITATIVE ? PER TRIAL): PENETRATION / ASPIRATION SCALE (HUTTON): 1 = does not enter airway 2 = enters airway/above vocal folds/ejected 3 = enters airway/above vocal folds/not ejected 4 = enters airway/contacts vocal folds/ejected 5 = enters airway/contacts vocal folds/not ejected 6 = enters airway/below vocal folds/ejected 7 = enters airway/below vocal folds/not ejected despite effort 8 = enters airway/below vocal folds/no effort VIDEOFLOROSCOPIC SCALE SCORE (HUTTON): Grade I = aspiration of material that has penetrated into the laryngeal vestibule, intact cough reflex Grade II = aspiration < 10 % of the bolus, intact cough reflex Grade III = aspiration of < 10 % of the bolus, reduced cough reflex or aspiration of > 10 % of the bolus, intact cough reflex Grade IV = aspiration of > 10 % of the bolus, reduced cough reflex Penetration-Aspiration Scale Score Thin Liquid via teaspoon: Result: 3= enters airways/above vocal folds/not ejected Thin Liquid via teaspoon Trial 2: Result: 2= enter airway/above vocal folds/ejected Thin Liquid via large single sip: cup: Result: 5= enters airways/contacts vocal folds/not ejected [place] Thick Liquid via small single sip: cup: Result: 2= enter airway/above vocal folds/ejected Comment: Cued cough and re-swallow after the swallow to clear residues on VF from previous trial = effective Pudding via teaspoon: Result: 1= does not enter airway Thin Liquid via single sip: straw: Result: 4= enters airway/contacts vocal folds/ejected 1/4 Cookie: Result: 1= does not enter airway Thin Liquid via single sip: straw Trial 2: Result: 5= enters airways/contacts vocal folds/not ejected [place] Thick Liquid via single sip: straw: Result: 1= does not enter airway [place] Thick Liquid via single sip: straw Trial 2: Result: 1= does not enter airway Comment: Cued cough and re-swallow after the swallow = mostly effective Thin Liquid via single sip: straw Chin tuck: Result: 5= enters airways/contacts vocal folds/not ejected Thin Liquid via small single sip: cup Effortful swallow: Result: 4= enters airway/contacts vocal folds/ejected Thin Liquid via single sip: straw Effortful swallow Trial 2: Result: 5= enters airways/contacts vocal folds/not ejected Comment: Cued cough and re-swallow after the swallow = mostly effective Thin Liquid via single sip: straw Effortful swallow Trial 3: Result: 2= enter airway/above vocal folds/ejected Oral Phase Labial Seal: No Labial Escape Tongue Control During Bolus Hold: Posterior escape of greater than half of bolus Bolus Preparation/Mastication: Slow prolonged chewing/mashing with complete recollection Bolus Transport/Lingual Motion: Slowed tongue motion Oral Residue: Residue collection on oral structures Pharyngeal Phase Initiation of Pharyngeal Swallow: Bolus head in pyriforms Soft Palate Elevation: No bolus between soft palate and pharyngeal wall Laryngeal Elevation: Partial superior movement thyroid cart/partial apprx aryt- epig petiole Anterior Hyoid Excursion: Partial anterior movement Epiglottic Movement: Complete inversion Laryngeal Vestibule Closure at Height of Swallow: Incomplete; narrow column of air/contrast in laryngeal vestibule Pharyngeal Stripping Wave: Present - diminished Pharyngoesophageal Segment Opening: Parital distension and partial duration; parital obstruction of flow (trace retention in UES) Tongue Base Retraction: Narrow column of contrast between tongue base & post. pharyngeal wall Pharyngeal Residue: Collection of residue within or on pharyngeal structures Esophageal Phase Esophageal Clearance: Esophageal retention w/ retrograde flow below pharyngoesophageal seg. Diagnosis/Impression Diagnosis: Mild-moderate oropharyngeal dysphagia R13.12 Impression: The oral phase is marked by... -Posterior loss of >1/2 of thin and mildly thick liquids to the pharynx prior to swallow onset. Thin liquids spilled to the laryngeal vestibule and pyriforms on some trials. -Repetitive and slowed tongue motion for A-P transport. -Slowed, but complete mastication of 1/4 cookie coated in pudding. The pharyngeal phase is marked by... -Delayed swallow onset. -Decreased TB retraction, pharyngeal stripping wave resulting in mild pharyngeal residues of pudding and cookie, which mostly cleared w/ liquid wash. -Decreased airway closure due to decreased anterior hyoid excursion and laryngeal elevation. Consistent laryngeal penetration of thin liquids to the vocal folds w/o full ejection placing pt at risk for post prandial aspiration. The esophageal phase is marked by... -Small CP bar at the level of C4-C5 which did not greatly impact bolus clearance through the UES; however, trace retention of pudding and liquids in UES. -Retention of pudding in the middle and lower esophagus, which somewhat cleared w/ thin liquid wash; however, much of the pudding remained in the middle esophagus. -Retrograde flow of thin barium through the LES to the lower esophagus. Recommendations Diet: Mechanical Soft Textures (Soft and Bite Size Textures - IDDSI ) and Thin Liquids Compensatory Strategies: Small Bites (chew thoroughly), Small Sips (By Straw w/ Hard Swallows and Intermittent [id number]), Slow Rate, Alternate bites/solids and sips/liquids and Assist with verbal cues to use recommended strategies Supervision: 1:1 Direct Supervision (Sister present for all meals; however, pt may be transitioning to GUILHERME in the near future per sister) Recommend Repeat Modified Barium Swallow: TBD Need for Skilled Speech Therapy Services: Yes Comment: Continue w/ OP dysphagia therapy. -Train pt in strategies to decrease risk for aspiration. Pt may benefit from visual aids for the home. -Train pt and family in diet texture testing and preparation for soft and bite size textures. -Implementation of oropharyngeal strengthening exercises. Would also recommend the patient for EMST. -Ongoing assessment of diet tolerance. If poor diet tolerance, worsening respiratory status, or inability to adhere to recommended aspiration precautions given hx of dementia, would consider the patient to downgrade to soft and bite size textures / mildly thick liquids w/ FFWP. Recommended Referrals: GI Consult Education Completed: 1. Described result of evaluation., 4. Family/caregivers understand evaluation & agree w/ goals & tx plan. and 7. Pt requires further education on strategies & risks. Status Active ST Patient: Active Contact Information [facility] Speech Therapy:: Kathy Leung M.A. CCC-MENTAL HEALTH ASSISTANT? Speech-Language Pathologist?? [facility] [address] [place] [address]? [email or web address]?? [phone]
--- NOTE | 2025-03-10 11:34 | HP.SP.DC_ITS ---
ST Discharge Summary Discharged: Discharge: PRASHANT HAYES was seen for initial speech therapy voice and dysphagia evaluation at [facility] on 11/23/2024 secondary to dx of Parkinson's disease, dysphagia, and dysphonia. Pt attended initial evaluation and 8 follow up appointments to discuss oropharyngeal and oral motor exercises based on results from her MBSS on 12/11/24, modified LSVT to improve vocal intensity, along with implementing speech intelligibility strategies to complete as a home program. Pt is being d/c from OP speech therapy on this date d/t meeting goals associated with her POC. Thank you for allowing me to participate the care of your Pt. Will reevaluate at Pt?s request following script from physician and Pt?s participation in his home exercise program and follow-up MBSS.
== END 2025-01-06 19:00 | disposition home or self-care (01) ==
LOC: SP 14:00
PROVIDERS: PCP Family Medicine; Referring Provider Physician Assistant; Visit Provider Physician Assistant
DX: G20.A1 Parkinson's disease without dyskinesia, without mention of fluctuations (principal); R13.12 Dysphagia, oropharyngeal phase; R49.0 Dysphonia
CPT/HCPCS: 92507; 92526; 92610; 92611

== ENCOUNTER 2025-07-07 09:29 | Observation (INO) | payer MEDICARE, BC, MEDICAID, SELFPAY ==
[2025-07-07] VITALS (7 sets, daily range): BP systolic 112–174; BP diastolic 65–84; PULSE 64–88; RESP 16–19; TEMP 36.5–37; O2SAT 99–100; BMI 24.9; BMI 25.2
--- NOTE | 2025-07-07 09:51 | RAD_ITS ---
PROCEDURE: CHEST PA AND LATERAL 07/07/2025 REASON FOR EXAM: WEAKNESS TECHNIQUE: CHEST PA AND LATERAL COMPARISON: None FINDINGS: Heart size and mediastinal configuration are within normal limits. There is no focal infiltrate or consolidation. There is a 0.6 cm nodular density in the right upper lung with overlying rib and scapula. There is no pneumothorax or effusion. Aortic calcifications are visible. There is no visible acute bony abnormality. RAD/Chest PA and Lateral IMPRESSION: There is a 0.6 cm nodular density in the right upper lung with overlying rib an d scapula. Chest CT correlation is recommended. Reading Location: [facility]
--- NOTE | 2025-07-07 09:51 | EKG12_ITS ---
Test Reason : Blood Pressure : */* mmHG Vent. Rate : 80 BPM Atrial Rate : 80 BPM P-R Int : 110 ms QRS Dur : 82 ms QT Int : 336 ms P-R-T Axes : 48 67 78 degrees QTcB Int : 387 ms Sinus rhythm with short NE Nonspecific T wave abnormality Abnormal ECG Confirmed by MARISA MEDEROS, LENORA ([id number]), photography editor DONNA ORTIZ ([id number]) on 07/08/2025 1:31:04 PM Referred By: Confirmed By: LENORA CUNNINGHAM MD
--- NOTE | 2025-07-07 09:52 | EX.ED.DYSGE1 ---
HPI History of Present Illness Chief Complaint: Weakness Informant: patient and family (Accompanied by sister.) Onset/Context/Timing Onset: Days Context: Gradual Onset Timing: Continuous Current Severity: Moderate Maximum Severity: Moderate Narrative Narrative: 75-year-old female history of Parkinson disease and hemicolectomy. States she has had pain all over the last month. Her neurologist recently changed some of her medications. She is accompanied by her sister they state this over the last several weeks she has had decreased oral intake and just generalized weakness. She denies any vomiting diarrhea nor fever. She denies any dysuria. She is currently in assisted living and they do not think she is strong enough to take care of her activities of daily living. Prior similar symptoms: No Recent Illness/Hospitalization: No PFSH PFS Medical History Dysphagia History of 1 Parkinson disease Alcohol use Dyslipidemia Hypertension Anxiety and depression GERD without esophagitis Parkinsons disease Home Medications ?Medication ?Instructions ?Recorded ?Last Taken ?Type benztropine 2 mg tablet 1 mg PO BID PARKINSONS 07/20/16 08/06/23 08:10 History 1 mg simvastatin 20 mg tablet 20 mg PO QHS CHOLESTEROL 07/20/16 07/31/23 History aspirin 81 mg chewable tablet 81 mg PO DAILY HEART HEALTH 08/01/23 08/01/23 History omeprazole 40 mg capsule,delayed 40 mg PO DAILY ACID REFLUX 08/01/23 08/01/23 History release pramipexole 0.25 mg tablet 0.25 mg PO TID PAKINSONS 08/01/23 Unknown History rasagiline 1 mg tablet 1 mg PO DAILY PARKINSONS 08/01/23 08/01/23 History valsartan 160 mg tablet 160 mg PO DAILY BLOOD PRESSURE 08/01/23 08/01/23 History food supplemt, lactose-reduced 120 ml PO TIDCM supplement #0 mL 08/06/23 08/06/23 12:00 Rx 0.08 gram-1.5 kcal/mL oral liquid 120 mL (Ensure Plus High Protein) acetaminophen 500 mg tablet 1,000 mg (2 x 500 mg) PO Q8 PRN 08/20/23 Unknown Rx pain #1 TAB alendronate 70 mg tablet 70 mg PO LEWIS osteoporosis #1 TAB 08/20/23 07/28/23 Rx bisacodyl 10 mg rectal suppository 10 mg FL .PRN X 1 PRN Constipation 08/20/23 Unknown Rx #1 ea buspirone 5 mg tablet 5 mg PO TID #1 TAB 08/20/23 Unknown Rx citalopram 20 mg tablet 20 mg PO DAILY DEPRESSION #1 TAB 08/20/23 08/01/23 Rx loperamide 2 mg capsule 2 mg PO Q6H PRN PRN Diarrhea #1 cap 08/20/23 Unknown Rx melatonin 3 mg tablet 3 mg PO QHS #1 TAB 08/20/23 Unknown Rx metoprolol tartrate 25 mg tablet 12.5 mg (1/2 x 25 mg) PO BID #1 TAB 08/20/23 Unknown Rx Allergy/AdvReac Type Severity Reaction Status Date / Time codeine AdvReac CRAZY Verified 09/03/23 13:40 DREAMS DOES NOT LIKE TO TAKE IT Family History Father , at 51 YOA due to MA CAD (coronary artery disease) Mother , she at 58 YOA following CABG CAD (coronary artery disease) Sister Hypertension Surgical History History of tubal ligation S/P right hemicolectomy Social History household members: none housing: apartment number of children: 2 current occupational status: retired Smoking Status: Never smoker alcohol intake: current alcohol intake frequency: other Alcohol type: wine details: She does not drink often and she has at most 1 glass of wine a day substance use type: does not use ROS ROS ED ROS Narrative Generalized weakness. Constitutional Constitutional ED: Denies chills or fever(s) Eyes Eyes: Denies blurry vision ENT ENT ED: Denies ear pain Cardiovascular Cardiovascular: Denies chest pain Respiratory/Chest Respiratory/Chest: Denies cough or dyspnea Gastrointestinal Gastrointestinal: Denies abdominal pain, constipation, diarrhea, melena, nausea or vomiting Genitourinary Genitourinary ED: Denies dysuria or hematuria Musculoskeletal Musculoskeletal: Denies arthralgias or back pain Integumentary Denies abscess or Abrasions Neurologic Neurologic: Denies headache(s) Psychiatric Psychiatric: Denies anxiety Endocrine Endocrinology: Denies cold intolerance Hematologic/Lymphatic Hematologic/Lymphatic: Reports none Allergic/Immunologic Allergic/Immunologic ED: Denies mouth swelling, tongue swelling or urticaria EXAM Physical Exam Narrative Exam Narrative: 75-year-old female vital signs are stable afebrile. Does not look septic toxic. No acute distress. Accompanied by her sister. H EENT exam pupils round reactive light. No signs of trauma. Mildly dry mucous members. Neck nontender no JVD. No lymphadenopathy. Back nontender. Lungs clear to auscultation bilaterally. Heart regular rhythm no murmur rate about 90. Chest wall ribs nontender. Abdomen soft nontender. Nondistended. Moving all 4 extremities. 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 She really cannot lift either leg off the bed if I lift the leg off the bed it just falls back. She is weak bilaterally dorsi and plantarflexion. Neurologically she is awake alert. Answering questions following commands. He has symmetrical weakness in both lower extremities. Const Vital Signs: 07/07/25 09:30 07/07/25 09:34 07/07/25 09:34 Temperature 97.7 F L Temperature Source Oral Pulse Rate 88 Respiratory Rate 18 Respiratory Pattern Normal Blood Pressure 174/84 H Blood Pressure Mean 114 Pulse Ox 100 Oxygen Delivery Method Room Air Positive well nourished and well developed; Negative for cachectic, contractures or unkempt General Appearance ED: well developed and NAD; Negative for unkempt, cachectic, contractures, cyanotic, diaphoretic or pallor Nutritional Appearance: Negative for cachectic HEENT Reports dry mucous membranes Negative for trauma or tenderness Mouth ED: Yes dry mucous membranes Mouth: dry mucous membranes Eyes PERRL and EOMs intact bilaterally Neck no lymphadenopathy, supple and no JVD Chest Wall inspection of chest normal and palpation of chest normal Resp normal respiratory effort and clear to auscultation bilaterally Cardio regular rate, regular rhythm, S1 normal heart sound, S2 normal heart sound and no murmurs GI normal to inspection, nondistended, normoactive bowel sounds, non-tender, non-distended and no masses Auscultation: normoactive bowel sounds Palpation: soft; Negative for tender, guarding or rebound tenderness present Back/Spine no CVA tenderness General Back: Negative for CVA tenderness Cervical Spine: Negative for cervical spine tenderness Thoracic Spine / Upper Back: Negative for thoracic spinal tenderness or paraspinal muscle tenderness Lumbar Spine / Lower Back: Negative for lumbar spinal tenderness Extremity normal to inspection General Extremety ED: Negative for edema or tenderness General Extremity: Negative for edema Neuro oriented x3 and CN's II-XII intact bilaterally Sensorium / Orientation: alert Motor Exam: strength 5/5 throughout Psych mental status grossly normal Appearance: Negative for unkempt Attitude: No agitated Mood & Affect: depressed; Negative for anxious Skin no rashes or lesions noted and no wounds General Skin Exam: Negative for jaundice or pallor Lesions: No lesion noted Rashes: No rashes noted Trauma: Negative for abrasion Wounds: Negative for wounds noted MDM MDM MDM Narrative Medical decision making narrative: 75-year-old female generalized weakness history of Parkinson disease. Exam is pretty benign she may be slightly dehydrated. There is no acute signs of infection or trauma. Screening labs will be obtained. Differential would include a dysrhythmia but she has a normal cardiac exam. Dehydration or electrolyte abnormalities. Anemia or infection. Repeat exam at 11:12 AM unchanged. Patient's labs really did not show any specific cause for her overall generalized weakness. We tried to walk her with a walker she could not really stand and support her weight with the walker getting out of bed. I will speak to the hospitalist about admission. Patient lives in assisted living and really cannot be cared for if she can ambulate on her own. History & Record Review Discussion w/independent historian: Patient and Family Additional record(s) reviewed:: Prior inpatient record, Prior outpatient record, Prior ED visit and Prior labs Lab Data Attestation: I reviewed the patient's lab results. Lab results narrative: CBC shows a white count of 5. H&H 11.1 and 34. Platelets 239. Baseline anemia compared to prior labs. Chemistry shows sodium 135. Gap 12. BUN and creatinine of 21. Glucose 112. Urinalysis normal. No whites nor red cells. No nitrites. Chest x-ray chronic changes unremarkable. Labs: Laboratory Results - last 24 hr 07/07/25 07/07/25 10:05 10:07 WBC 5.3 RBC 3.85 L Hgb 11.1 L Hct 34.7 L MCV 90.1 MCH 28.8 MCHC 32.0 RDW Std Deviation 44.1 H RDW Coeff of Addie 13.4 Plt Count 239 MPV 10.7 Immature Gran % (Auto) 0.400 Neut % (Auto) 66.1 Lymph % (Auto) 22.8 [place] % (Auto) 8.3 Eos % (Auto) 1.5 Baso % (Auto) 0.9 Absolute Neuts (auto) 3.5 Absolute Lymphs (auto) 1.21 Nucleated RBC % 0 Sodium 135 Potassium 4.2 Chloride 99 Carbon Dioxide 23.7 Anion Gap 12 BUN 20 H Creatinine 1.03 Estim Creat Clear Calc 41.44 L Est GFR (MDRD) Non-Af 57 L BUN/Creatinine Ratio 19.1 Glucose 112 H Calcium 9.7 Urine Color Yellow Urine Clarity Clear Urine pH 6.0 Ur Specific Brewster 1.010 Urine Protein 30 H Urine Glucose (UA) Normal Urine Ketones Negative Urine Occult Blood Negative Urine Nitrite Negative Urine Bilirubin Negative Urine Urobilinogen Normal Ur Leukocyte Esterase Negative Urine RBC 0 SEEN Urine WBC 0 SEEN Ur Squamous Epith Cells 0 SEEN Urine Bacteria 0 SEEN Urine Mucus 0 SEEN Radiography Chest X-Ray - ED: 2 View, Read by ED Physician, Normal, Heart, Lungs, Mediastinum, Bony Structures, No Acute Disease and Chronic Changes Diagnostic Testing: Clinical Impression(s) from Imaging Studies Chest X-Ray 07/07/25 09:51 IMPRESSION: There is a 0.6 cm nodular density in the right upper lung with overlying rib and scapula. Chest CT correlation is recommended. Reading Location: [facility] Chest x-ray, 2 views, AP and lateral, interpreted by myself shows no acute abnormality. Normal cardiac silhouette. Normal lung coker. Chronic changes. Rhythm Strip Rhythm Strip: Sinus Rhythm Rate: 80 Ectopy: None EKG Initial EKG: Attestation: I personally reviewed and interpreted this EKG as follows: Interpretation: Sinus Rhythm and No Acute Injury Pattern Comments: Normal sinus rhythm rate 80 no acute signs of MA nor ischemia. Discharge Plan Triage Chief Complaint: Weakness ED Provider: Shaji Rosales Dx/Rx/DC Orders Clinical Impression: Generalized muscle weakness, History of Parkinson disease, Unable to walk Prescriptions: No Action simvastatin 20 MG tablet 20 mg PO QHS benztropine 2 MG tablet 1 mg PO BID omeprazole 40 mg capsule,delayed release(DR/EC) 40 mg PO DAILY pramipexole 0.25 mg tablet 0.25 mg PO TID Patient Comments: START DATE: 08-03-23 rasagiline 1 mg tablet 1 mg PO DAILY valsartan 160 mg tablet 160 mg PO DAILY aspirin 81 MG tablet,chewable 81 mg PO DAILY Ensure Plus High Protein 0.08 gram-1.5 kcal/mL Liquid 120 ml PO TIDCM Qty: 0 0RF acetaminophen 500 mg Tablet 1,000 mg PO Q8 PRN (Reason: pain) Qty: 1 0RF buspirone 5 mg Tablet 5 mg PO TID Qty: 1 0RF loperamide 2 mg Capsule 2 mg PO Q6H PRN PRN (Reason: Diarrhea) Qty: 1 0RF melatonin 3 mg Tablet 3 mg PO QHS Qty: 1 0RF bisacodyl 10 mg Suppository 10 mg FL .PRN X 1 PRN (Reason: Constipation) Qty: 1 0RF metoprolol tartrate 25 mg Tablet 12.5 mg PO BID Qty: 1 0RF alendronate 70 mg tablet 70 mg PO LEWIS Qty: 1 0RF Rx Instructions: Take Saturday AM on and empty stomach and do not lay down or eat for 30 minutes. citalopram 20 mg tablet 20 mg PO DAILY Qty: 1 0RF Primary Care Provider: Ez Garcia Referrals: Ez Garcia MD [Primary Care Provider] - Print Language: Yi Disposition Disposition: Acute Care [facility]
[2025-07-07] MEDS: 0.9% Normal Saline (1000mL) 1,000 ML 1000 ML IV (10:06)
[2025-07-07 10:26] LABS: Hematocrit 34.7 % (37-47); Hemoglobin 11.1 g/dL (12.0-15.0); Immature Granulocytes Count 0.020 X10^3/uL (0.0-0.0); Mean Corp Hgb Conc 32.0 g/dL (32-36); Mean Corpuscular Volume 90.1 fL (81-99); Mean Platelet Vol. 10.7 fl (6.2-12.0); NRBC Flagged by Analyzer 0 % (0-5); Platelet Count 239 K/mm3 (150-450); RBC Distribution Width CV 13.4 % (11.6-14.6); RBC Distribution Width SD 44.1 fl (35.1-43.9); Red Blood Count 3.85 M/mm3 (4.2-5.4); White Blood Count 5.3 K/mm3 (4.4-11.0)
[2025-07-07 10:30] LABS: Color, Urine Yellow (Yellow); Glucose, Dipstick Normal (Normal); Ketone-Dipstick Negative (Negative); Leukocyte Esterase-Dipstick Negative /ul (Negative); Mucous, Urine 0 SEEN /hpf (<or=2+); Nitrite-Dipstick Negative (Negative); Occult Blood-Urine Negative /ul (Negative); Protein-Dipstick 30 mg/dl (Negative); Red Blood Cells-Urine 0 SEEN /hpf (0-5); Specific Gravity, Urine 1.010 (1.002-1.030); Squamous Epithelial Cells - UA 0 SEEN /hpf (5-10); Urine Bilirubin Dipstick Negative (Negative)
[2025-07-07 10:58] LABS: Anion Gap 12 (5-15); BUN 20 mg/dL (4-19); BUN/Creat Ratio 19.1 RATIO (10-20); Calcium,Total 9.7 mg/dL (7.6-11.0); Carbon Dioxide 23.7 mmol/L (21.0-32.0); Chloride 99 mmol/L (98-108); Estimated Creatinine Clearance 41.44 ml/min (50-250); Glucose 112 mg/dL (70-99); Potassium 4.2 mmol/L (3.3-5.1)
--- NOTE | 2025-07-07 11:58 | PCM.HP.STD ---
HPI - General General Date of Admission: 07/07/25 Date of Service: 07/07/25 Chief Complaint: Generalized weakness HPI Narrative PRASHANT HAYES, is a 75 F with past medical history significant for Parkinson's disease resident [facility] who was brought to the emergency department with generalized weakness. Per patient she recently had medication adjustment mainly for anxiety since then she has developed progressive generalized weakness. Patient also complains of muscle aches and difficulty with both handgrips. Workup in the ED came back unremarkable. Patient admitted to regular nursing floor for subsequent eval with consultation placed to PT/OT/[facility] Medical History Dysphagia History of 1 Parkinson disease Alcohol use Dyslipidemia Hypertension Anxiety and depression GERD without esophagitis Parkinsons disease Home Medications ?Medication ?Instructions ?Recorded ?Last Taken ?Type benztropine 2 mg tablet 1 mg PO BID PARKINSONS 07/20/16 08/06/23 08:10 History 1 mg simvastatin 20 mg tablet 20 mg PO QHS CHOLESTEROL 07/20/16 07/31/23 History aspirin 81 mg chewable tablet 81 mg PO DAILY HEART HEALTH 08/01/23 08/01/23 History omeprazole 40 mg capsule,delayed 40 mg PO DAILY ACID REFLUX 08/01/23 08/01/23 History release pramipexole 0.25 mg tablet 0.25 mg PO TID PAKINSONS 08/01/23 Unknown History rasagiline 1 mg tablet 1 mg PO DAILY PARKINSONS 08/01/23 08/01/23 History valsartan 160 mg tablet 160 mg PO DAILY BLOOD PRESSURE 08/01/23 08/01/23 History acetaminophen 500 mg tablet 1,000 mg (2 x 500 mg) PO Q8 PRN 08/20/23 Unknown Rx pain #1 TAB alendronate 70 mg tablet 70 mg PO LEWIS osteoporosis #1 TAB 08/20/23 07/28/23 Rx bisacodyl 10 mg rectal suppository 10 mg TN .PRN X 1 PRN Constipation 08/20/23 Unknown Rx #1 ea buspirone 5 mg tablet 5 mg PO TID #1 TAB 08/20/23 Unknown Rx citalopram 20 mg tablet 20 mg PO DAILY DEPRESSION #1 TAB 08/20/23 08/01/23 Rx loperamide 2 mg capsule 2 mg PO Q6H PRN PRN Diarrhea #1 cap 08/20/23 Unknown Rx melatonin 3 mg tablet 3 mg PO QHS #1 TAB 08/20/23 Unknown Rx metoprolol tartrate 25 mg tablet 12.5 mg (1/2 x 25 mg) PO BID #1 TAB 08/20/23 Unknown Rx benztropine 1 mg tablet 1 mg PO BID 07/07/25 Unknown History estradiol 0.01% (0.1 mg/gram) 1 g vaginal .QMOTH 07/07/25 Unknown History vaginal cream folic acid 1 mg tablet 1 mg PO DAILY 07/07/25 Unknown History rotigotine 2 mg/24 hour 1 patch topical QHS 07/07/25 Unknown History transdermal 24 hour patch (Neupro) Allergy/AdvReac Type Severity Reaction Status Date / Time codeine AdvReac CRAZY Verified 09/03/23 13:40 DREAMS DOES NOT LIKE TO TAKE IT Family History Father , at 51 YOA due to IA CAD (coronary artery disease) Mother , she at 58 YOA following CABG CAD (coronary artery disease) Sister Hypertension Surgical History History of tubal ligation S/P right hemicolectomy Social History household members: none housing: apartment number of children: 2 current occupational status: retired Smoking Status: Never smoker alcohol intake: current alcohol intake frequency: other Alcohol type: wine details: She does not drink often and she has at most 1 glass of wine a day substance use type: does not use ROS ROS Narrative GENERAL: denies fever, chills, night sweats, weight loss, anorexia HEENT: denies headache, sinus congestion, or drainage, dysphagia RESPIRATORY: denies cough, sputum production, shortness of breath, dyspnea on exertion CARDIAC: denies chest pain, palpitations, orthopnea, PND GASTROINTESTINAL: denies abdominal pain, nausea, vomiting, melena, GENITOURINARY: denies dysuria, urgency, frequency, heamaturia EXTREMITY: denies swelling MUSCULOSKELETAL: Muscle aches NEUROLOGIC: denies focal numbness, weakness, tingling HEMATOLOGIC: denies easy bruising and/or hemorrhage INTEGUMENT: denies rashes PSYCHIATRIC: denies suicidal or homicidal ideation Vital Signs Vital Signs Vital Signs: 07/07/25 09:30 07/07/25 09:34 07/07/25 09:34 Temperature 97.7 F L Temperature Source Oral Pulse Rate 88 Respiratory Rate 18 Respiratory Pattern Normal Blood Pressure 174/84 H Blood Pressure Mean 114 Pulse Ox 100 Oxygen Delivery Method Room Air 07/07/25 11:30 Temperature Temperature Source Pulse Rate 83 Respiratory Rate 19 H Respiratory Pattern Blood Pressure 162/66 H Blood Pressure Mean 98 Pulse Ox 99 Oxygen Delivery Method Room Air Weight Weight: 61.8 kg Body Mass Index (BMI) 24.9 Physical Exam Narrative GENERAL: cooperative HEENT: Atraumatic; normocephalic EYES; Anicteric, Normal Conjunctiva NECK; supple, normal thyroid, RESPIRATORY: Diminished to auscultation CARDIOVASCULAR: Regular S1 S2, GI: soft, normoactive bowel sounds, : No Renal angle tenderness; EXTREMITIES: No edema, no clubbing, MUSCULOSKELETAL: no muscle wasting NEURO: Awake; no lateralizing signs. SKIN: No Rash PSYCH; Flat affect Results Lab / Micro Data 07/07/25 10:07 07/07/25 10:07 Labs: Laboratory Results - last 24 hr 07/07/25 10:05: Urine Color Yellow, Urine Clarity Clear, Urine pH 6.0, Ur Specific [place] 1.010, Urine Protein 30 H, Urine Glucose (UA) Normal, Urine Ketones Negative, Urine Occult Blood Negative, Urine Nitrite Negative, Urine Bilirubin Negative, Urine Urobilinogen Normal, Ur Leukocyte Esterase Negative, Urine RBC 0 SEEN, Urine WBC 0 SEEN, Ur Squamous Epith Cells 0 SEEN, Urine Bacteria 0 SEEN, Urine Mucus 0 SEEN 07/07/25 10:07: WBC 5.3, RBC 3.85 L, Hgb 11.1 L, Hct 34.7 L, MCV 90.1, MCH 28.8, MCHC 32.0, RDW Std Deviation 44.1 H, RDW Coeff of Addie 13.4, Plt Count 239, MPV 10.7, Immature Gran % (Auto) 0.400, Neut % (Auto) 66.1, Lymph % (Auto) 22.8, Crisp % (Auto) 8.3, Eos % (Auto) 1.5, Baso % (Auto) 0.9, Absolute Neuts (auto) 3.5, Absolute Lymphs (auto) 1.21, Nucleated RBC % 0, Sodium 135, Potassium 4.2, Chloride 99, Carbon Dioxide 23.7, Anion Gap 12, BUN 20 H, Creatinine 1.03, Estim Creat Clear Calc 41.44 L, Est GFR (MDRD) Non-Af 57 L, BUN/Creatinine Ratio 19.1, Glucose 112 H, Calcium 9.7 Rhythm Strip Rhythm Strip: Sinus Rhythm Rate: 80 Ectopy: None Imaging Radiology Impression Chest X-Ray 07/07/25 09:51 IMPRESSION: There is a 0.6 cm nodular density in the right upper lung with overlying rib and scapula. Chest CT correlation is recommended. Reading Location: [facility] Assessment & Plan Assessment/Plan (1) Generalized muscle weakness: PLAN: Plan PRASHANT HAYES, is a 75 F with past medical history significant for Parkinson's disease resident [facility] who was brought to the emergency department with generalized weakness. Per patient she recently had medication adjustment mainly for anxiety since then she has developed progressive generalized weakness. Patient also complains of muscle aches and difficulty with both handgrips. Workup in the ED came back unremarkable. Patient admitted to regular nursing floor for subsequent eval with consultation placed to PT/OT/SW Physical debility ? Patient has underlying Parkinson disease contributing to her symptoms. Patient has been admitted to a regular nursing floor requested for PT/OT eval and director social to assist with discharge planning. With patient also complaining of muscle aches decision was made to hold patient's simvastatin 2. Myalgia ? Ordered ESR held patient simvastatin 3. Dyslipidemia ? Patient is on simvastatin held given above reasons 4. Parkinson's disease ? Did continue patient antiparkinsonian medication 5. GERD ? Patient is on omeprazole will continue 6. Depression with anxiety ? Patient is on citalopram as well as buspirone plan is to continue with current regimen. Patient did ask for Ativan advised against benzos 7. Hypertension ? Blood pressure control not optimal, home medications continued with dose adjustment as needed, also added hydralazine as needed. If blood pressure greater than 160 8. DVT prophylaxis ? On enoxaparin 9. Anemia ? Secondary to anemia of chronic disorder, monitoring H&H with plans to transfuse if hemoglobin falls below 7 or patient is deemed to be symptomatic 10. DVT prophylaxis ? On enoxaparin Time spent in the patient's overall evaluation,decision-making process, review of diagnostic data, adjustment of management, discussion with other providers, nursing nursing and ancillary staff involved in patient's care documentation, 60 Minutes Advance planning; did discuss with the patient and family (her sister) regarding advanced directives as well as CODE STATUS. Did explain the various scenarios involved ( FULL CODE, DNR CCA, DNR CCA with no intubation, and DNR CC and what each meant) patient elected to be DNR CCA no intubation. Order was placed. Time spent on discussion 16 minutes. Charges/Coding Multi Select Codes Visit Charges Visit Charges: 51379 Init Hosp L2 Hospitalists' Procedures Procedures: 85999 Advncd Care Plan 30 Min
[2025-07-07 17:40] LABS: CPK Total, Creatine Kinase 58 U/L (24-195)
[2025-07-07 17:41] LABS: CRP < 3.00 mg/L (0.0-3.0)
--- NOTE | 2025-07-07 19:42 | CM.ED ---
Social Work SW met with patient and patients sister who stated they felt that patient required more assistance than what can be provided in the [place]. Questions answered regarding home health and SNF. Patient and sister stated they were hopeful that patient would regain some of her mobility while admitted but were willing to discuss options for additional care if needed. Gladis Montanez, ELEMENTARY PRINCIPAL, [employer]
[2025-07-07] MEDS: MELATONIN 3 MG TABLET PO (20:21)
[2025-07-08 02:20] VITALS: BP 127/61; PULSE 61; RESP 16; TEMP 36.6; O2SAT 98
[2025-07-08] MEDS: hydrOXYzine PAM 25 MG Capsule PO (04:18)
[2025-07-08 06:49] VITALS: O2SAT 93
[2025-07-08 06:54] LABS: Hematocrit 30.5 % (37-47); Hemoglobin 9.9 g/dL (12.0-15.0); Immature Granulocytes Count 0.010 X10^3/uL (0.0-0.0); Mean Corp Hgb Conc 32.5 g/dL (32-36); Mean Corpuscular Volume 89.4 fL (81-99); Mean Platelet Vol. 10.8 fl (6.2-12.0); NRBC Flagged by Analyzer 0 % (0-5); Platelet Count 222 K/mm3 (150-450); RBC Distribution Width CV 13.5 % (11.6-14.6); RBC Distribution Width SD 44.7 fl (35.1-43.9); Red Blood Count 3.41 M/mm3 (4.2-5.4); White Blood Count 5.6 K/mm3 (4.4-11.0)
[2025-07-08 07:21] LABS: Anion Gap 8 (5-15); BUN 18 mg/dL (4-19); BUN/Creat Ratio 18.7 RATIO (10-20); Calcium,Total 9.3 mg/dL (7.6-11.0); Carbon Dioxide 23.2 mmol/L (21.0-32.0); Chloride 105 mmol/L (98-108); Estimated Creatinine Clearance 43.96 ml/min (50-250); Glucose 95 mg/dL (70-99); Magnesium 2.1 mg/dL (1.5-2.2); Potassium 4.8 mmol/L (3.3-5.1)
--- NOTE | 2025-07-08 08:11 | PCM.PN.HOSP ---
Reason for Visit Chief Complaint: Generalized weakness Subjective Subjective Patient seen still appears quite anxious asking for Ativan did explain to patient that she is already on buspirone Objective Data Objective Data Vital Signs: Vital Signs Temp Pulse Resp BP Pulse Ox O2 Del Method 97.9 F 61 16 127/61 H 98 Room Air 07/08/25 02:20 07/08/25 02:20 07/08/25 02:20 07/08/25 02:20 07/08/25 02:20 07/08/25 02:20 Oxygen Delivery Method Room Air Weight: 62.3 kg Body Mass Index (BMI) 25.2 Intake & Output: Intake and Output for Last 24 Hours 07/06/25 07/07/25 07/08/25 23:59 23:59 23:59 Intake Total 1000 / 1000 Balance 1000 / 1000 Lab / Micro Data 07/08/25 05:50 07/08/25 05:50 Labs: Laboratory Results - last 24 hr 07/07/25 10:05: Urine Color Yellow, Urine Clarity Clear, Urine pH 6.0, Ur Specific [place] 1.010, Urine Protein 30 H, Urine Glucose (UA) Normal, Urine Ketones Negative, Urine Occult Blood Negative, Urine Nitrite Negative, Urine Bilirubin Negative, Urine Urobilinogen Normal, Ur Leukocyte Esterase Negative, Urine RBC 0 SEEN, Urine WBC 0 SEEN, Ur Squamous Epith Cells 0 SEEN, Urine Bacteria 0 SEEN, Urine Mucus 0 SEEN 07/07/25 10:07: WBC 5.3, RBC 3.85 L, Hgb 11.1 L, Hct 34.7 L, MCV 90.1, MCH 28.8, MCHC 32.0, RDW Std Deviation 44.1 H, RDW Coeff of Addie 13.4, Plt Count 239, MPV 10.7, Immature Gran % (Auto) 0.400, Neut % (Auto) 66.1, Lymph % (Auto) 22.8, [place] % (Auto) 8.3, Eos % (Auto) 1.5, Baso % (Auto) 0.9, Absolute Neuts (auto) 3.5, Absolute Lymphs (auto) 1.21, Nucleated RBC % 0, ESR 2, Sodium 135, Potassium 4.2, Chloride 99, Carbon Dioxide 23.7, Anion Gap 12, BUN 20 H, Creatinine 1.03, Estim Creat Clear Calc 41.44 L, Est GFR (MDRD) Non-Af 57 L, BUN/Creatinine Ratio 19.1, Glucose 112 H, Calcium 9.7, Total Creatine Kinase 58, C-React Prot Ext Range < 3.00 07/08/25 05:50: WBC 5.6, RBC 3.41 L, Hgb 9.9 L, Hct 30.5 L, MCV 89.4, MCH 29.0, MCHC 32.5, RDW Std Deviation 44.7 H, RDW Coeff of Addie 13.5, Plt Count 222, MPV 10.8, Immature Gran % (Auto) 0.200, Neut % (Auto) 59.2, Lymph % (Auto) 28.3, [place] % (Auto) 9.1, Eos % (Auto) 2.3, Baso % (Auto) 0.9, Absolute Neuts (auto) 3.3, Absolute Lymphs (auto) 1.59, Nucleated RBC % 0, Sodium 137, Potassium 4.8, Chloride 105, Carbon Dioxide 23.2, Anion Gap 8, BUN 18, Creatinine 0.95, Estim Creat Clear Calc 43.96 L, Est GFR (MDRD) Non-Af 63, BUN/Creatinine Ratio 18.7, Glucose 95, Calcium 9.3, Phosphorus 2.9, Magnesium 2.1, TSH 1.940 Radiography Diagnostic Testing: Radiology Impression Chest X-Ray 07/07/25 09:51 IMPRESSION: There is a 0.6 cm nodular density in the right upper lung with overlying rib and scapula. Chest CT correlation is recommended. Reading [facility] Rhythm Strip Rhythm Strip: Sinus Rhythm Rate: 80 Ectopy: None Physical Exam Narrative GENERAL: cooperative HEENT: Atraumatic; normocephalic EYES; Anicteric, Normal Conjunctiva NECK; supple, normal thyroid, RESPIRATORY: Diminished to auscultation CARDIOVASCULAR: Regular S1 S2, GI: soft, normoactive bowel sounds, : No Renal angle tenderness; EXTREMITIES: No edema, no clubbing, MUSCULOSKELETAL: no muscle wasting NEURO: Awake; no lateralizing signs. SKIN: No Rash PSYCH; Flat affect Assessment & Plan Assessment/Plan (1) Generalized muscle weakness: PLAN: Plan Patient is a 75 F with past medical history significant for Parkinson's disease resident [facility] who was brought to the emergency department with generalized weakness. 1. Physical debility ? Patient has underlying Parkinson disease contributing to her symptoms. Patient has been admitted to a regular nursing floor requested for PT/OT eval and social service assistant to assist with discharge planning. With patient also complaining of muscle aches decision was made to hold patient's simvastatin ? 07/08/2025; patient CPK levels ESR and CRP all came back within normal limits. Will continue to hold simvastatin requested for PT OT eval 2. Myalgia ? Ordered ESR held patient simvastatin 3. Dyslipidemia ? Patient is on simvastatin held given above reasons 4. Parkinson's disease ? Did continue patient antiparkinsonian medication 5. GERD ? Patient is on omeprazole will continue 6. Depression with anxiety ? Patient is on citalopram as well as buspirone plan is to continue with current regimen. Patient did ask for Ativan advised against benzos 7. Hypertension ? Blood pressure control not optimal, home medications continued with dose adjustment as needed, also added hydralazine as needed. If blood pressure greater than 160 ? 07/08/2025; patient blood pressure control has improved 8. DVT prophylaxis ? On enoxaparin 9. Anemia ? Secondary to anemia of chronic disorder, monitoring H&H with plans to transfuse if hemoglobin falls below 7 or patient is deemed to be symptomatic ? 07/08/2025; patient hemoglobin did drop 11.1-9.1 ordered iron studies as well as B12 levels 10. DVT prophylaxis ? On enoxaparin Time spent in the patient's overall evaluation,decision-making process, review of diagnostic data, adjustment of management, discussion with other providers, nursing nursing and ancillary staff involved in patient's care documentation, 38 Minutes Charges/Coding Visit Charges Inpatient E&M: 30120 Subs Hosp L2
--- NOTE | 2025-07-08 09:45 | CASEMGMT ---
Addendum entered by Marlene Sandoval 07/08/25 13:05: 1000- ALICE SINGH into pt room with pt nurse and hospitalist to discuss pt care. Original Note: ALICE SINGH into pt room, pt sitting up in chair with sister and brother at bedside. Pt lives in [place] and is receiving home therapy services through [facility] per report. Pt states this can be anxiety causing for her as she has social anxiety and the staff come without an appt set up. Pt sister states that pt has been unable to eat with others and a tray has been brought to pt for 7 days. She states that pt anxiety has been increased lately and pt legs have locked up and she could not walk. Pt sister very concerned about pt anxiety and wants this addressed this hospital stay. Pt sister requests to speak with doctor. Pt discusses that she has in the past been inpatient for psychiatric treatment when she was 28 years old. Pt states she does not want to go again. Pt has moved to [place] in March and prior to this pt was living with her sister for 19 mos. Pt then discusses medications she would like to be on and medications she cannot take. Pt and family state if pt needs to go for rehab they would prefer [facility] as pt knows the therapists. Pt states she did better yesterday with therapy than she has for some time. They do not want to discuss dc planning any further at this time until they speak with the doctor. Message to to make aware of pt and family request.
[2025-07-08 10:15] LABS: Iron 63 ug/dL (50-170); Iron Binding Capacity,Total 245 ug/dL (250-450); Iron Binding Capacity,Unsat 182 ug/dL (228-428); Vitamin B12 1045 pg/mL (180-914)
--- NOTE | 2025-07-08 12:00 | CASEMGMT ---
Social Work Collaboration with ALICE Rosario on discharge planning and disposition. Patient's depression and anxiety discussed, and provider mention about alex-psych during meeting with patient, family, CM , RN and provider this date. -Secure backline to Dr. Kirkland to clarify, and provider indicates thought that alex-psych would be beneficial before looking at a SNF. -Called [facility] and spoke with Daphney Jennifer regarding referral for crisis eval for alex psych, for medication evaluation and stabilization. Crisis will be to unit later today. -This manual writer, along with ALICE SINGH to patient's room to update. Patient's sister and brother both in room, and patient okay speaking with family present. -Broached plan for mental health evaluation with intent to look at inpatient mental health treatment to help stabilize depression and anxiety. -Patient voiced agreement with this plan and reports to feel going somewhere to treat mental health would be helpful to overall functioning. -During conversation patient shared: That had been hospitalized in [place] at the age of 28 for depression and anxiety Has had anxiety through the years, but over the last week things have been getting worse Patient shared in the last 1 week has thought of suicide twice, considering using scissors to her abdomen area. Patient reports the thoughts were passing, and called her sister who helped secure the area. Patient reports these thoughts are new to patient, that her pain was so great that considered suicide. Denies ever having suicide attempts in the past, even when hospitalized years ago. Reports to want to feel better, and to care about her family, but does not feel able to cope well when having pain and anxiety. Patient denies any active current thoughts of self harm or suicide, and reports to want to feel better. -Sister reports patient has been very good about reaching out to the sister when in distress. -This manual writer provided encouragement and validation regarding emotional distress being real for patient, and also the courage patient has in being honest about recent thoughts, as well as patient's positivity in willing to seek out additional help and support. -Updated Dr. Kirkland and ALICE Granda to conversation with the patient, in particular to patient recently having thoughts of suicide in the last week, but no active SI or intent noted today. -Per conversation, with provider, no indication for sitter at this time. -Conversation this manual writer had with patient is a reinforcement of patient's emotional distress and potential benefit of seeking out alex psychiatric services for medication stabilization and symptom management related to depression and anxiety. -Faxed referral information to [facility]. Plan: Crisis evaluation for alex psychiatric admission. -SANDRA Cordero
--- NOTE | 2025-07-08 12:20 | CASEMGMT ---
GUTIÉRREZ Met with patient to complete GUTIÉRREZ form. GUTIÉRREZ form and its content were verbally explained and patient's questions were answered to the best of my ability.? Patient voiced understanding and signed GUTIÉRREZ form.? Patient provided a copy of signed GUTIÉRREZ form and original placed in patient's chart.? Patient had no further questions. Marietta Bucio, Discharge Planning Asst
[2025-07-08] MEDS: Senna/Docusate Sodium 1 Tablet 2 TABLET PO (12:25)
--- NOTE | 2025-07-08 18:00 | CASEMGMT ---
Social Work 1430 - Crisis from [facility] to unit and assessed patient. Crisis will be looking for inpatient hospitalization for patient. This policy writer updated Dr. Kirkland via secure Backline. 1700: Message left at [facility] to call back for an update. 1800: Received call back from Franky at [facility] and updated to anticipate discharge plan. Franky asked for facility to be called back when d/c facility is known. Franky reports okay to call jr. systems administrator Tawanda Porter at [phone] to update. Plan: Pending inpatient psychiatric treatment. Update [facility] when d/c location is known. -SANDRA Cordero
[2025-07-08 20:36] VITALS: BP 121/71; PULSE 68; RESP 16; TEMP 36.7; O2SAT 98
[2025-07-08] MEDS: MELATONIN 3 MG TABLET PO (20:41)
[2025-07-09 00:35] VITALS: BP 114/61; PULSE 58; RESP 18; TEMP 36.4; O2SAT 98
[2025-07-09 00:40] VITALS: BP 114/61; PULSE 58; RESP 18; TEMP 36.4; O2SAT 98
--- NOTE | 2025-07-09 01:03 | NURSING ---
Called report to ALICE Engle at [facility] unit.
--- NOTE | 2025-07-09 07:12 | PCM.DC.SUM ---
Providers Date of Admission: 07/07/25 Date of Discharge: 07/08/25 Primary Care Physician: Dr. Ez Garcia MD Reason For Visit: GENERALIZED WEAKNESS Diagnosis Discharge Diagnosis (1) Generalized muscle weakness: Status: Acute Code(s): M62.81 - Muscle weakness (generalized) Plan Patient is a 75 F with past medical history significant for Parkinson's disease resident [facility] who was brought to the emergency department with generalized weakness. 1. Physical debility ? Patient has underlying Parkinson disease contributing to her symptoms. Patient has been admitted to a regular nursing floor requested for PT/OT eval and transition social worker to assist with discharge planning. With patient also complaining of muscle aches decision was made to hold patient's simvastatin ? 07/08/2025; patient CPK levels ESR and CRP all came back within normal limits. Will continue to hold simvastatin requested for PT OT eval 2. Myalgia ? Ordered ESR held patient simvastatin 3. Dyslipidemia ? Patient is on simvastatin held given above reasons 4. Parkinson's disease ? Did continue patient antiparkinsonian medication 5. GERD ? Patient is on omeprazole will continue 6. Depression with anxiety ? Patient is on citalopram as well as buspirone plan is to continue with current regimen. Patient did ask for Ativan advised against benzos ? Consult was placed to the crisis team regarding patient's severe anxiety. Patient was deemed a good candidate for inpatient [facility]. Patient was accepted for transfer 7. Hypertension ? Blood pressure control not optimal, home medications continued with dose adjustment as needed, also added hydralazine as needed. If blood pressure greater than 160 ? 07/08/2025; patient blood pressure control has improved 8. DVT prophylaxis ? On enoxaparin 9. Anemia ? Secondary to anemia of chronic disorder, monitoring H&H with plans to transfuse if hemoglobin falls below 7 or patient is deemed to be symptomatic ? 07/08/2025; patient hemoglobin did drop 11.1-9.1 ordered iron studies as well as B12 levels 10. DVT prophylaxis ? On enoxaparin Time spent in the patient's overall evaluation,decision-making process, review of diagnostic data, adjustment of management, discussion with other providers, nursing nursing and ancillary staff involved in patient's care documentation, 38 Minutes Medications at Discharge Home Medications benztropine 2 mg tablet 1 mg PO BID PARKINSONS 07/20/16 simvastatin 20 mg tablet 20 mg PO QHS CHOLESTEROL 07/20/16 aspirin 81 mg chewable tablet 81 mg PO DAILY HEART HEALTH 08/01/23 omeprazole 40 mg capsule,delayed release 40 mg PO DAILY ACID REFLUX 08/01/23 pramipexole 0.25 mg tablet 0.25 mg PO BID PAKINSONS 08/01/23 valsartan 160 mg tablet 160 mg PO DAILY BLOOD PRESSURE 08/01/23 acetaminophen 500 mg tablet 1,000 mg (2 x 500 mg) PO Q8 PRN pain #1 TAB 08/20/23 alendronate 70 mg tablet 70 mg PO LEWIS osteoporosis #1 TAB 08/20/23 bisacodyl 10 mg rectal suppository 10 mg SD .PRN X 1 PRN Constipation #1 ea 08/20/23 citalopram 20 mg tablet 20 mg PO DAILY DEPRESSION #1 TAB 08/20/23 loperamide 2 mg capsule 2 mg PO Q6H PRN PRN Diarrhea #1 cap 08/20/23 Held on 07/07/25. Instructions: Ordered/Entered in error melatonin 3 mg tablet 3 mg PO QHS #1 TAB 08/20/23 ascorbate calcium (vitamin C) 814 mg/gram oral powder (Vitamin C (ascorbate calcium)) 500 mg PO QODAY 07/07/25 citalopram 10 mg tablet 10 mg PO DAILY 07/07/25 estradiol 0.01% (0.1 mg/gram) vaginal cream 1 g vaginal .QMOTH 07/07/25 folic acid 1 mg tablet 1 mg PO DAILY 07/07/25 rotigotine 2 mg/24 hour transdermal 24 hour patch (Neupro) 1 patch topical QHS 07/07/25 Physical Exam Narrative GENERAL: cooperative HEENT: Atraumatic; normocephalic EYES; Anicteric, Normal Conjunctiva NECK; supple, normal thyroid, RESPIRATORY: Diminished to auscultation CARDIOVASCULAR: Regular S1 S2, GI: soft, normoactive bowel sounds, : No Renal angle tenderness; EXTREMITIES: No edema, no clubbing, MUSCULOSKELETAL: no muscle wasting NEURO: Awake; no lateralizing signs. SKIN: No Rash PSYCH; Flat affect Weight / BMI Weight Weight: 62.3 kg Body Mass Index (BMI) 25.2 ABG / Lab / Microbiology Data 07/08/25 05:50 07/08/25 05:50 Laboratory: Laboratory Results - last 24 hr 07/08/25 05:50: Sodium 137, Potassium 4.8, Chloride 105, Carbon Dioxide 23.2, Anion Gap 8, BUN 18, Creatinine 0.95, Estim Creat Clear Calc 43.96 L, Est GFR (MDRD) Non-Af 63, BUN/Creatinine Ratio 18.7, Glucose 95, Calcium 9.3, Phosphorus 2.9, Magnesium 2.1, Iron 63, TIBC 245 L, Iron Saturation 26.0, Unsaturated IBC 182 L, Vitamin B12 1045 H, TSH 1.940 D/C Instructions DC O2, CPAP, BIPAP Needs Home O2 Discharge instructions: No Meaningful Use Info Meaningful Use Meaningful Use Diagnoses (Choose all that apply): None applicable Discharge Plan Admission Admit Date/Time: 07/07/25 11:49 Attending Provider: Davin Kirkland Primary Care Provider: Ez Garcia Discharge Orders/Prescriptions Prescriptions: No Action simvastatin 20 MG tablet 20 mg PO QHS benztropine 2 MG tablet 1 mg PO BID omeprazole 40 mg capsule,delayed release(DR/EC) 40 mg PO DAILY pramipexole 0.25 mg tablet 0.25 mg PO BID Patient Comments: START DATE: 08-03-23 valsartan 160 mg tablet 160 mg PO DAILY aspirin 81 MG tablet,chewable 81 mg PO DAILY acetaminophen 500 mg Tablet 1,000 mg PO Q8 PRN (Reason: pain) Qty: 1 0RF loperamide 2 mg Capsule 2 mg PO Q6H PRN PRN (Reason: Diarrhea) Qty: 1 0RF melatonin 3 mg Tablet 3 mg PO QHS Qty: 1 0RF bisacodyl 10 mg Suppository 10 mg SD .PRN X 1 PRN (Reason: Constipation) Qty: 1 0RF alendronate 70 mg tablet 70 mg PO LEWIS Qty: 1 0RF Rx Instructions: Take Saturday AM on and empty stomach and do not lay down or eat for 30 minutes. citalopram 20 mg tablet 20 mg PO DAILY Qty: 1 0RF Patient Comments: for a total of 30mg estradiol 0.01 % (0.1 mg/gram) cream 1 g vaginal .QMOTH folic acid 1 mg tablet 1 mg PO DAILY Neupro 2 mg/24 hour patch 24 hour 1 patch topical QHS Vitamin C (ascorbate calcium) 814 mg/gram powder 500 mg PO QODAY citalopram 10 mg tablet 10 mg PO DAILY Referrals / Follow Up: Ez Garcia MD [Primary Care Provider] - Disposition Disposition (needs filled in before D/C Order can be placed): [facility] Charges/Coding Visit Charges Inpatient E&M: 71739 Disch Hosp >30min
--- NOTE | 2025-07-09 09:49 | CASEMGMT ---
Social Work SW left VM with Tawanda Porter, portal administrator at [facility] and notified of pt discharge early this morning to [facility] in [place]. THIERRY Kyle
== END 2025-07-09 00:50 ==
LOC: ED 11:56 → MS3 12:11
PROVIDERS: Admitting Provider Internal Medicine; Emergency Provider Emergency Medicine; PCP Family Medicine; Visit Provider Internal Medicine
DX: M62.81 Muscle weakness (generalized) (principal); G20.A1 Parkinson's disease without dyskinesia, without mention of fluctuations; K21.9 Gastro-esophageal reflux disease without esophagitis; E78.5 Hyperlipidemia, unspecified; F41.8 Other specified anxiety disorders; Z79.83 Long term (current) use of bisphosphonates; I10 Essential (primary) hypertension; Z79.899 Other long term (current) drug therapy; Z79.82 Long term (current) use of aspirin; D63.8 Anemia in other chronic diseases classified elsewhere
CPT/HCPCS: 36415; 71046; 80048; 81001; 82550; 82607; 83540; 83550; 83735; 84100; 84443; 85025; 85652; 86140; 93005; 94668; 96360; 96372; 97116; 97162; 97530; 97802; 97803; 99221; 99285; P9612; A4216; G0378

== ENCOUNTER → 2025-07-27 | Outpatient (REF) | payer MEDICARE, BC, SELFPAY ==
--- OUTSIDE RECORDS SUMMARY | 2025-07-27 04:35 | XMS RPT_ITS | CCD ---
Author Organization [facility] Care Team Providers Care [facility] Guard Name Role Phone Ez Solitario MD Primary Care Provider Dr. Ez Solitario Primary Care Provider Dr. Vladislav Crawford Emergency Provider Dr. Esme Andre Attending Provider Dr. Esme Andre Referring Provider Dr. Esme Andre Other Provider Ez Solitario MD Primary Care Provider Dr. Esme Andre Admit Provider Dr. Ishaan Olson Attending Provider EZ SOLITARIO MD Primary Care Physician ELIO SERRATO MD Attending Unavailable EZ SOLITARIO MD Primary Care Unavailable Ez Solitario MD Primary Care Provider Manny RECONSIGNMENT CLERK.Edna ROSALES Unavailable Lauren Camacho PA-C Unavailable MARY YOU Attending Unavailable MAGDALENA FORMAN Referring Unavailable EZ SOLITARIO Primary Care Unavailable Edna Umanzor APRN.CNP Unavailable Lauren Camacho PA-C Unavailable Dr. Ez Solitario MD Primary Care Provider Dr. Shaji Rosales MD Emergency Provider Dr. Davin Kirkland MD Admit Provider Unavailable Dr. Davin Kirkland MD Attending Provider Unavaila Dr. Davin Nix MD Other Provider Unavailable LAUREN CAMACHO Attending Unavailable ALTAF, EZ A Primary Care Unavailable ALTAF, EZ A Primary Care Unavailable ALTAF, EZ A Referring Unavailable EDNA UMANZOR Referring Unavailable ALTAF, EZ A Primary Care Unavailable EDNA UMANZOR Attending Unavailable ALTAF, EZ A Primary Care Unavailable EDNA UMANZOR Referring Unavailable MEÑO PHILLIP Attending Unavailable ALTAF, EZ A Primary Care Unavailable MARY ORTIZ Attending Unavailable ALTAF, EZ A Primary Care Unavailable ALTAF, EZ A Referring Unavailable ALTAF, EZ A Primary Care Unavailable LAUREN CAMACHO Referring Unavailable ALTAF, EZ A Primary Care Unavailable ALTAF, EZ A Primary Care Unavailable LAUREN CAMACHO Referring Unavailable Magdalena Forman Attending Unavailable Jenaroight, Magdalena Referring Unavailable Altaf, Ez Primary Care Unavailable Magdalena Forman Attending Unavailable Jenaroight, Magdalena Referring Unavailable Altaf, Ez Primary Care Unavailable Matilda Manzanares Attending Unavailable Altaf, Ez Primary Care Unavailable Davin Kirkland Admitting Unavailable Altaf, Ez Primary Care Unavailable Davin Kirkland Attending Unavailable Davin Kirkland Admitting Unavailable Altaf, Ez Primary Care Unavailable Davin Kirkland Consulting Unavailable Davin Kirkland Attending Unavailable Allergies Allergy Classification Reported Allergen(s) Allergy Type Date of Onset Reaction(s) Facility (20 sources) Codeine; Translations: [CODEINE] Drug Allergy 6 Intolerance [facility] Work Phone: (20 sources) Povidone-Iodine; Translations: [POVIDONE-IODINE ] Drug Allergy 7 Rash [facility] Work Phone: (20 sources) busPIRone; Translations: [BUSPIRONE] Drug Allergy 3 Other: See Comments [facility] Work Phone: (1 source) Codeine Drug Allergy 3 [facility] [place] Rep[facility] Medications Current Medications Medication Drug Class(es) Dates Sig (Normalized) Sig (Original) acetaminophen 500 mg oral tablet (5 sources) Start: 08-06-2023 End: 08-20-2023 take 2 tablets by mouth every eight hours as needed for pain Acetaminophen 500 mg Tablet Active 1000 mg PO EVERY 8 HOURS as needed for pain 1 0 August 20, 2023 12:00am Start: 08-06-2023 take 1000 mg by mout h every eight hours Acetaminophen Active 1000 MG PO EVERY 8 HOURS 42 7 August 06, 2023 12:00am Ascorbate Calcium (Vitamin C) (Vitamin C (Ascorbate Calcium)) 814 mg/gram powder (1 source) Start: 07-07-2025 Ascorbate Calc ium (Vitamin C) (Vitamin C (Ascorbate Calcium)) 814 mg/gram powder Active 500 mg PO EVERY OTHER DAY July 07, 2025 12:00am ascorbic acid 500 mg oral tablet (20 sources) Vitamin C Start: 10-04-2023 take 1 tablet by mouth every other day ascorbic acid, vitamin C, (VITAMIN C) 500 mg tablet Take 1 tablet by mouth every other day. 10/04/2023 Active Comment on above: Take 1 tablet by julia th every other day. aspirin 81 mg chewable tablet (20 sources) Platelet Aggregation Inhibitor, Nonsteroidal Anti-inflammatory Drug Start: 12-06-2016 take 1 tablet by mouth once daily aspirin, enteric coated (ADULT LOW DOSE ASPIRIN) 81 mg EC tablet Take 1 tablet by mouth once daily. 0 12/06/2016 Active Start: 07-21-2016 End: 08-01-2023 take 1 tablet by mouth once daily Aspirin 81 MG tablet,chewable Active 81 mg PO DAILY August 01, 2023 12:00am [facility] Comment on above: Take 1 tablet by julia th once daily. benztropine mesylate 1 mg oral tablet (20 sources) Anticholinergic, Antihistamine Start: take 1 tablet by mouth twice daily Benztropine 1 mg tablet Active 1 mg PO TWICE A DAY July 07, 2025 12:00am Start: 10-01-2023 benztropine (C OGENTIN) 2 mg tablet Take 0.5 tablets by mouth two times a day. Per Neurology at [facility] 10/01/2023 Active Start: 07-20-2016 End: 10-01-2023 take 1 mg by mouth twice daily Benztropine 2 MG tablet Active 1 mg PO TWICE A DAY July 20, 2016 12:00am [facility] Start: 07-20-2016 take 1 mg by mouth twice daily Benztropine Active 1 MG PO TWICE A DAY July 20, 2016 12:00am Comment on above: Take 1 tablet by julia twice daily. Per Neurology at [facility] Take 0.5 tablets by mouth two times a day. Per Neurology at [facility] bisacodyl 10 mg rectal suppository (2 sources) Stimulant Laxative Start: 08-20-20 Bisacodyl 10 mg Suppository Active 10 mg RC .PRN X 1 as needed for Constipation 1 August 20, 2023 12:00am busPIRone hydrochloride 5 mg oral tablet (5 sources) Start: 08-20-20 End: 09-25-20 take 1 tablet by mouth three times daily Buspirone 5 mg Tablet Active 5 mg PO THREE TIMES A DAY August 20, 2023 12:00am Comment on above: Take 5 mg by mouth t hree times a day. calcium carbonate 1250 mg / cholecalciferol 200 unt oral tablet (12 sources) Vitamin D Start: 01-11-20 take 1 tablet by mouth once daily [id number]-as tamin D3 (CALCIUM 500+D) 500 mg-5 mcg (200 unit) per tablet Take 1 tablet by mouth once daily. 01/11/2025 Active cholecalciferol 0.025 mg oral capsule (20 sources) Vitamin D Start: 07-08-20 take 1 capsule by mouth once daily Cholecalciferol, Vitamin D3, 25 mcg (1,000 unit) cap Take 1 capsule by mouth once daily. 07/08/2024 Active citalopram 10 mg oral tablet (20 sources) Serotonin Reuptake Inhibitor Start: 07-07-20 take 1 tablet by mouth once daily Citalopram 10 mg tablet Active 10 mg PO DAILY July 07, 2025 12:00am Start: 12-05-2020 End: 08-20-2023 take 1 tablet by mouth once daily Citalopram 20 mg tablet Discontinued 20 mg PO DAILY August 01, 2023 12:00am August 20, 2023 11:52am DEPRESSION TAKE ONE 10MG AND ONE 20MG TABLET TOGETHER ONCE EVERY NIGHT FOR A TOTAL DOSE OF 30MG. Start: 12-05-2020 End: 08-20-2023 take 1 tablet by mouth once daily Citalopram 10 mg tablet Discontinued 10 mg PO DAILY August 01, 2023 12:00am August 20, 2023 11:47am DEPRESSION Start: 07-20-2016 End: 08-01-2023 take 1 tablet by mouth once daily Citalopram 40 MG tablet Discontinued 40 mg PO DAILY July 20, 2016 12:00am August 01, 2023 6:22pm Comment on above: Take 1 tablet by julia th once daily. Take with 20 mg dose for total of 30mg daily, getting from Neurology at [facility] Take 1 tablet by julia th daily at bedtime. Take with 10mg dose for total of 30mg daily. Per neurology at [facility] diphenhydrAMINE hydrochloride 25 mg oral capsule (20 sources) Histamine-1 Receptor Antagonist take 2 tablets by mouth once daily in the evening diphenhydrAMINE (BENADRYL) 25 mg capsule Take 25 mg by mouth once daily. 2 tablets 25 mg AM and 2 tablets 25 mg PM Active take 1 capsule by mo uth every six hours as needed diphenhydrAMINE (BENADRYL) 25 mg capsule Take 25 mg by mouth every 6 hours as needed. 0 Active Comment on above: Take 25 mg by mouth every 6 hours as needed. DULoxetine 30 mg delayed release oral capsule (1 source) Serotonin and Norepinephrine Reuptake Inhibitor Start: take 1 capsule by mouth once DULoxetine DR (CYMBALTA) 30 mg capsule Take 1 capsule by mouth once daily. Per Neuro: Dr. Serrato 07/03/2025 Active estradiol 0.1 mg/ml vaginal cream (20 sources) Estrogen Start: Estradiol 0.01 % (0.1 mg/gram) cream Active 1 g VAGINAL .QMOTH July 07, 2025 12:00am Start: 07-11-2017 estradiol (EST RACE) 0.01 % (0.1 mg/gram) vaginal cream Use 1 g vaginally twice a week. 1 Tube 11 07/11/2017 Active Comment on above: Use 1 g vaginally tw ice a week. ferrous sulfate (SLOW FE) 137 mg (45 mg iron) TbER (20 sources) Start: 10-04-2023 take 1 tablet by mouth every other day ferrous sulfate (SLOW FE) 137 mg (45 mg iron) TbER Take 1 tablet by mouth every other day. 10/04/2023 Active Start: 10-04-2023 take 1 tablet by julia th every other day ferrous sulfate (SLOW FE) 137 mg (45 mg iron) TbER Take 1 tablet by mouth every other day. 0 10/04/2023 Active Comment on above: Take 1 tablet by julia th every other day. folic acid 1 mg oral tablet (20 sources) Start: 07-07-2025 take 1 tablet by mouth once daily Folic Acid 1 mg tablet Active 1 mg PO DAILY July 07, 2025 12:00am Start: 10-04-2023 End: 09-15-2024 take 1 tablet by mouth once daily Folic Acid 1 mg tabl et Active 1 mg PO DAILY July 07, 2025 12:00am Comment on above: Take 1 tablet by julia th once daily. loperamide hydrochloride 2 mg oral capsule (2 sources) Opioid Agonist Start: 3 take 1 capsule by mouth every six hours as needed for diarrhea Loperamide 2 mg Capsule Active 2 mg PO EVERY 6 HOURS NEEDED as needed for Diarrhea 1 August 20, 2023 12:00am On Hold: Ordered/Entered in error melatonin 5 mg oral capsule (20 sources) Start: take 2 capsules by mouth once daily at bedtime Melatonin 5 mg cap Take 2 capsules by mouth daily at bedtime. 09/13/2023 Active Start: 08-20-2023 take 1 tablet by julia th at bedtime Melatonin 3 mg Tablet Active 3 mg PO AT BEDTIME 1 August 20, 2023 12:00am Start: 08-01-2023 End: 08-20-2023 take 2 tablets by mouth at bedtime Melatonin 5 mg tablet Discontinued 10 mg PO AT BEDTIME August 01, 2023 12:00am August 20, 2023 11:47am SLEEP On Hold: Ordered Start: 08-01-2023 take 10 mg by mouth at bedtime Melatonin Active 10 MG PO AT BEDTIME August 01, 2023 12:00am End: 09-13-2023 take 1 capsule by mouth once daily at bedtime Melatonin 5 mg cap Take 5 mg by mouth daily at bedtime. 0 09/13/2023 Discontinued (Adjust Sig - Block E-Cancel) Comment on above: Take 2 capsules by m outh daily at bedtime. Take 5 mg by mouth d aily at bedtime. metoprolol tartrate 25 mg oral tablet (1 source) beta-Adrenergic Titi Start: Metoprolol Tartrate 25 mg Tablet Active 12.5 mg PO TWICE A DAY 1 0 August 20, 2023 12:00am nitrofurantoin, macrocrystals 25 mg / nitrofurantoin, monohydrate 75 mg oral capsule (7 sources) Nitrofuran Antibacterial Start: End: take 1 capsule by mouth twice daily at mealtime nitrofurantoin monohydrate and macrocrystal (MACROBID) 100 mg capsule Take 1 capsule by mouth two times a day with meals for 7 days. 14 capsule 01/13/2025 01/20/2025 Active Start: 09-30-2023 End: 10-07-2023 take 1 capsule by mouth twice daily at mealtime nitrofurantoin monohydrate and macrocrystal (MACROBID) 100 mg capsule Take 1 capsule by mouth two times a day with meals for 7 days. 14 capsule 0 09/30/2023 10/07/2023 Start: 08-06-2023 End: 08-20-2023 take 1 capsule by mouth every twelve hours at mealtime Nitrofurantoin Monohyd/M-Cryst (Macrobid) 100 mg capsule Discontinued 100 mg PO Q12H 10 5 0 August 06, 2023 12:00am August 20, 2023 11:48am uti must administer with a meal/food Comment on above: Take 1 capsule by [facility] two times a day with meals for 7 days. omeprazole 40 mg delayed release oral capsule (20 sources) Proton Pump Inhibitor Start: 6 End: 5 take 1 capsule by mouth once daily Omeprazole 40 mg capsule,delayed release(DR/EC) Active 40 mg PO DAILY August 01, 2023 12:00am ACID REFLUX Comment on above: Take 1 capsule by [facility] once daily. perflutren lipid microspheres 1.3 mL in NaCl (PF) 0.9% 10 mL injection (DEFINITY) (20 sources) Start: 3 End: perflutren lipid microspheres 1.3 mL in NaCl (PF) 0.9% 10 mL injection (DEFINITY) Start: 02-03-2021 End: 05-05-2022 perflutren lipid microsphere s 1.3 mL in NaCl (PF) 0.9% 10 mL injection (DEFINITY) pramipexole dihydrochloride 0.25 mg oral tablet (20 sources) Nonergot Dopamine Agonist Start: 07-28-2024 End: 02-04-2025 pramipexole (MIRAPEX) 0.5 mg tablet Take 1 tablet by mouth two times a day. Per Neuro 02/04/2025 Active Start: 10-01-2023 pramipexole (M IRAPEX) 0.25 mg tablet Take 0.5 tablets by mouth three times a day. Per Neuro 0 10/01/2023 Active Start: 08-01-2023 pramipexole (M IRAPEX) 0.25 mg tablet Take 1 tablet by mouth two times a day. Per Neuro, Dr. Serrato 07/03/2025 Active Start: 08-01-2023 End: 08-06-2023 Pramipexole 0.125 mg tablet Discontinued 0.125 mg PO THREE TIMES A DAY August 01, 2023 12:00am August 06, 2023 5:57pm [facility] TAKE ONE 0.125MG TABLET BY MOUTH THREE TIMES A DAY FOR 14 DAYS THEN STOP. THEN TAKE ONE 0.25MG TABLET BY MOUTH FOR THREE DAYS THEREAFTER. Start: 07-17-2023 End: 10-01-2023 pramipexole (MIRAPEX) 0.25 m g tablet Take 1 tablet by mouth three times a day. Per Neuro 04/29/2024 Active Comment on above: Take 1 tablet by julia th three times daily. Per Neuro Take 0.5 tablets by mouth three times a day. Per Neuro 24 hr rotigotine 0.0833 mg/hr transdermal system (13 sources) Start: 07-07-2025 Rotigotine (Rotigotine 2 Mg/24 Hour Transdermal 24 Hour Patch) 2 mg/24 hour patch 24 hour Active 1 NMA TOPICAL AT BEDTIME July 07, 2025 12:00am apply 1 dose transdermal route e very hour rotigotine (NEUPRO) 2 mg/24 hour patch Apply 1 patch as directed once daily. Per Neuro: Dr. Serrato Active rotigotine (NEUP RO) 2 mg/24 hour patch Neupro 2 mg/24 hour transdermal 24 hour patch APPLY 1 PATCH ONCE DAILY 0 Active Comment on above: Neupro 2 mg/24 hour transdermal 24 hour patch APPLY 1 PATCH ONCE DAILY simvastatin 20 mg oral tablet (20 sources) HMG-CoA Reductase Inhibitor Start: 6 End: take 1 tablet by mouth at bedtime Simvastatin 20 MG tablet Active 20 mg PO AT BEDTIME July 20, 2016 12:00am CHOLESTEROL Comment on above: Take 1 tablet by julia th daily at bedtime. 125 ml sodium chloride 9 mg/ml prefilled syringe (20 sources) Start: End: sodium chloride 0.9 % (flush) 10 mL (BD POSIFLUSH) Start: 02-03-2021 End: 05-05-2022 sodium chloride 0.9 % (flush ) 10 mL (BD POSIFLUSH) valsartan 160 mg oral tablet (20 sources) Angiotensin 2 Receptor Titi Start: 08-21-2021 End: 01-11-2025 take 1 tablet by mouth once daily Valsartan 160 mg tablet Active 160 mg PO DAILY August 01, 2023 12:00am BLOOD PRESSURE Comment on above: Take 1 tablet by mouth once daily. vitamin b12 1 mg oral tablet (20 sources) Vitamin B12 Start: 02-07-2022 take 1 tablet by mouth once daily cyanocobalamin (VITAMIN B-12) 1,000 mcg tab Take 1 tablet by mouth once daily. 02/07/2022 Active Comment on above: Take 1 tablet by mouth once daily. Completed/Discontinued Medications Medication Drug Class(es) Dates Sig (Normalized) Sig (Original) acetaminophen 500 mg / diphenhydrAMINE hydrochloride 25 mg oral tablet (6 sources) Histamine-1 Receptor Antagonist Start: 07-20-2016 End: 08-01-2023 take 1 tablet by mouth at bedtime as needed Diphenhydramine-A cetaminophen (Tylenol Pm Extra Strength) 1 EACH tablet Discontinued 1 NMA PO AT BEDTIME as needed for Sleep July 20, 2016 12:00am August 01, 2023 6:37pm alendronic acid 70 mg oral tablet (20 sources) Bisphosphonate Start: 08-13-2022 End: 01-11-2025 Alendronate 70 mg tablet Discontinued 70 mg PO OLMOS August 01, 2023 12:00am August 20, 2023 11:52am OSTEOPEROSIS take on Sundays Start: 02-13-2022 take 1 tablet by julia th every week alendronate (FOSAMAX) 70 mg tablet Take 1 tablet by mouth one time a week. Take with a full glass of water, on an empty stomach; do NOT lie down for 30minutes. 12 tablet 1 02/13/2022 Active Comment on above: Take 1 tablet by julia th one time a week. Take with a full glass of water, on an empty stomach; do NOT lie down for 30minutes. amoxicillin 500 mg / clavulanate 125 mg oral tablet (6 sources) Penicillin-class Antibacterial Start: 6 End: 3 take 1 tablet by mouth every twelve hours Amoxicillin-Pot Clavulanate 500 MG tablet Discontinued 500 mg PO Q12H 10 0 July 21, 2016 12:00am August 01, 2023 6:20pm baclofen 5 mg oral tablet (5 sources) gamma-Aminobutyric Acid-ergic Agonist Start: 4 End: 4 take 0.5 tablet by mouth twice daily baclofen 5 mg tablet Indications: Muscle spasm of left lower extremity Take 0.5 tablets by mouth two times a day. 45 tablet 1 07/08/2024 08/20/2024 Discontinued Calcium Carbonate / vitamin D3 (20 sources) End: 5 CALCIUM CARBONATE/VITAMIN D3 (CALCIUM 500 + D ORAL) Take by mouth. 01/11/2025 Discontinued CALCIUM CARBONAT E/VITAMIN D3 (CALCIUM 500 + D ORAL) Take by mouth. Active CALCIUM CARBONAT E/VITAMIN D3 (CALCIUM 500 + D ORAL) Take by mouth. 0 Active Comment on above: Take by mouth. cephalexin 500 mg oral capsule (5 sources) Cephalosporin Antibacterial Start: 3 End: 3 take 1 capsule by mouth three times daily Cephalexin 500 mg capsule Discontinued 500 mg PO THREE TIMES A DAY 15 0 July 28, 2023 12:00am August 06, 2023 12:16pm ANTIBIOTIC ferrous sulfate (13 sources) End: 3 FERROUS SULFATE, DRIED (IRON, DRIED, ORAL) Take by mouth. 0 02/12/2023 Discontinued (Discontinued by Patient) FERROUS SULFATE, DRIED (IRON, DRIED, ORAL) Take by mouth. 0 Active Comment on above: Take by mouth. ferrous sulfate (SLOW FE) 137 mg (45 mg iron) TbER (2 sources) Start: 10-04-2023 take 1 tablet by mouth every other day ferrous sulfate (SLOW FE) 137 mg (45 mg iron) TbER Take 1 tablet by mouth every other day. 0 10/04/2023 Active Comment on above: Take 1 tablet by julia every other day. Food Supplemt, Lactose-Reduced (Ensure Plus High Protein) 0.08 gram-1.5 kcal/mL Liquid (3 sources) Start: 08-06-2023 End: 07-07-2025 Food Supplemt, Lactose-Reduced (Ensure Plus High Protein) 0.08 gram-1.5 kcal/mL Liquid Discontinued 120 mL PO 3 TIMES DAILY WITH MEALS 0 August 06, 2023 12:00am July 07, 2025 12:18pm supplement Start: 08-06-2023 Food Supplemt, Lactose-Reduced (Ensure Plus High Protein) 0.08 gram-1.5 kcal/mL Liquid Active 120 ML PO 3 TIMES DAILY WITH MEALS 0 August 06, 2023 12:00am furosemide 20 mg oral tablet (20 sources) Loop Diuretic Start: 05-24-2023 End: 01-11-2025 take 1 tablet by mouth once daily Furosemide 20 mg tablet Discontinued 20 mg PO DAILY August 01, 2023 12:00am August 01, 2023 7:00pm EDEMA Comment on above: Take 1 tablet by julia once daily. gabapentin 400 mg oral capsule (20 sources) Anti-epileptic Agent Start: 04-26-2020 End: 09-13-2023 gabapentin (NEURONTIN) 400 mg capsule 1-2 tabs as needed for insomnia, Per Dr. Savage 45 capsule 0 04/26/2020 Active Comment on above: 1-2 tabs as needed f or insomnia, Per Dr. Savage Take 400 mg by mouth once daily. losartan potassium 100 mg oral tablet (6 sources) Angiotensin 2 Receptor Titi Start: 07-20-2016 End: 08-01-2023 take 1 tablet by mouth once daily Losartan 100 MG tablet Discontinued 100 mg PO DAILY July 20, 2016 12:00am August 01, 2023 6:37pm BLOOD PRESSURE mirtazapine 15 mg oral tablet (1 source) End: 09-13-2023 take 7.5 mg by mouth once daily at bedtime mirtazapine (REMERON) 15 mg tablet Take 7.5 mg by mouth daily at bedtime. 0 09/13/2023 Discontinued Comment on above: Take 7.5 mg by mouth daily at bedtime. mometasone furoate 1 mg/ml topical cream (13 sources) Corticosteroid Start: 09-05-2021 End: 02-12-2023 mometasone (ELOCON) 0.1 % cream Apply to affected area once daily. 15 g 0 09/05/2021 02/12/2023 Discontinued Comment on above: Apply to affected ar ea once daily. multivitamin tablet (20 sources) End: 01-11-2025 take 1 tablet by mouth once daily multivitamin tablet Take 1 tablet by mouth once daily. 01/11/2025 Discontinued take 1 tablet by mouth once regina y multivitamin tablet Take 1 tablet by mouth once daily. Active take 1 tablet by mouth once regina y multivitamin tablet Take 1 tablet by mouth once daily. 0 Active Comment on above: Take 1 tablet by julia th once daily. polyethylene glycol 3350 28445 mg powder for oral solution (20 sources) Osmotic Laxative Start: 06-06-20 End: 05-24-20 polyethylene glycol 3350 (GLYCOLAX) 17 gram/dose powder Take 17 g by mouth once daily. 1 Bottle 5 06/06/2018 05/24/2023 Discontinued Comment on above: Take 17 g by mouth o nce daily. prednisoLONE 5 mg oral tablet (20 sources) Corticosteroid End: 05-24-20 take 1 tablet by mouth once daily prednisoLONE 5 mg (21 tabs) DsPk Take 5 mg by mouth once daily. 0 05/24/2023 Discontinued Comment on above: Take 5 mg by mouth o nce daily. rasagiline 0.5 mg oral tablet (20 sources) Monoamine Oxidase Inhibitor Start: 07-28-20 End: 10-27-20 take 1 tablet by mouth once rasagiline (AZILECT) 0.5 mg tab Take 1 tablet by mouth once daily. Per Neurology at [facility] 07/28/2024 10/27/2024 Discontinued (Discontinued by another Health Care Provider) Start: 12-05-2020 take 1 tablet by julia th once daily Rasagiline 1 mg tablet Active 1 mg PO DAILY August 01, 2023 12:00am [facility] Comment on above: Take 1 tablet by julia th once daily. Per Neurology at [facility] Problems Active Problems Problem Classification Problem Date Documented Da te Episodic/Chronic Alcohol-related disorders (11 sources) Current drinker; Translations: [Alcohol use] Onset: 6 11-13-2021 Chronic Comment on above: social not daily Anxiety disorders (20 sources) Mixed anxiety and depressive disorder; Translations: [Anxiety disorder, unspecified] Onset: 6 02-07-2016 Chronic Comment on above: She is stable on 20 mg of Citalopram daily and Buspar 5 mg TID. the Buspar has really been helpful in controlling anxiety Blindness and vision defects (2 sources) Visual hallucinations; Translations: [Visual hallucinations] 08-20-2023 Episodic Comment on above: Possibly due to medi cations. Chronic kidney disease (20 sources) Chronic kidney disease stage 3A ; Translations: [Stage 3a chronic kidney disease (HCC)] Onset: 1 Chronic Chronic kidney disease (1 source) Chronic kidney disease; Translations: [Stage 3a chronic kidney disease (HCC)] Onset: 1 Deficiency and other anemia (2 sources) Chronic anemia; Translations: [Anemia, unspecified] 08-20-2023 Episodic Comment on above: due to blood loss fr om surgery. HGB at DC is 9.4 Delirium, dementia, and amnestic and other cognitive disorders (20 sources) Dementia associated with another disease; Translations: [Dementia in other diseases classified elsewhere, mild, with anxiety (HCC)] Onset: 4 12-26-2023 Chronic Disorders of lipid metabolism (20 sources) Mixed hyperlipidemia; Translations: [Mixed hyperlipidemia] Onset: 6 Chronic E Codes: Fall (5 sources) Fall in home; Translations: [Unspecified fall, initial encounter] 07-28-2023 Episodic Esophageal disorders (20 sources) Gastroesophageal reflux disease without esophagitis; Translations: [Gastro-esophageal reflux disease without esophagitis] Onset: 6 Chronic Essential hypertension (20 sources) Essential hypertension; Translations: [Essential (primary) hypertension] Onset: 6 Chronic Comment on above: Well controlled. No lightheadedness. Hypertension with complications and secondary hypertension (20 sources) Hypertensive heart AND renal disease; Translations: [Hypertensive heart and chronic kidney disease with heart failure and stage 1 through stage 4 chronic kidney disease, or unspecified chronic kidney disease] Onset: 4 Chronic Intestinal obstruction without hernia (20 sources) Cecal volvulus; Translations: [Volvulus] Onset: 3 Resolved: 3 08-01-2023 Episodic Malaise and fatigue (4 sources) Asthenia; Translations: [Other malaise] 08-09-2023 Episodic Menopausal disorders (20 sources) Atrophic vaginitis; Translations: [Postmenopausal atrophic vaginitis] Onset: 9 12-15-2019 Chronic Nutritional deficiencies (1 source) Deficiency of macronutrients; Translations: [Unspecified protein-calorie malnutrition] 12-26-2023 Chronic Open wounds of head; neck; and trunk (5 sources) Complex laceration of scalp; Translations: [Laceration without foreign body of scalp, initial encounter] 07-28-2023 Episodic Other connective tissue disease (1 source) Swelling of lower limb; Translations: [Other specified soft tissue disorders] Episodic Other connective tissue disease (1 source) Spasm; Translations: [Other muscle spasm] 07-08-2024 Episodic Other connective tissue disease (2 sources) Pain in left lower limb; Translations: [Pain in left leg] 08-20-2024 Episodic Other connective tissue disease (6 sources) Muscle weakness; Translations: [Muscle weakness (generalized)] 08-09-2023 Episodic Other connective tissue disease (2 sources) Muscle weakness (generalized); Translations: [Muscle weakness (generalized)] Onset: 5 Episodic Other female genital disorders (1 source) Vaginal discharge; Translations: [Other specified noninflammatory disorders of vagina] 09-25-2023 Episodic Other gastrointestinal disorders (2 sources) Dysphagia; Translations: [Dysphagia, unspecified] 08-20-2023 Episodic Other injuries and conditions due to external causes (5 sources) Wound finding; Translations: [Other injury of unspecified body region, initial encounter] 07-28-2023 Episodic Other nervous system disorders (6 sources) Disorder of brain; Translations: [Encephalopathy, unspecified] 07-20-2016 Chronic Other nervous system disorders (4 sources) Unable to walk; Translations: [Difficulty in walking, not elsewhere classified] 07-07-2025 Chronic Other nervous system disorders (9 sources) H/O: brain disorder; Translations: [Personal history of other diseases of the nervous system and sense organs] 07-28-2023 Episodic Parkinson`s disease (20 sources) Parkinson's disease; Translations: [Parkinson's disease] Onset: 6 07-10-2021 Chronic Comment on above: She has visual hallu cinations but, I think they are due to her medications and not due to PD.......seem to have increased after Mirapex was started. Parkinson`s disease (1 source) Parkinson`s disease; Translations: [Parkinson's disease without dyskinesia, without mention of fluctuations] Onset: 5 Residual codes; unclassified (1 source) Edema of lower extremity; Translations: [Localized edema] Episodic Residual codes; unclassified (1 source) Peripheral edema; Translations: [Edema, unspecified] Episodic Residual codes; unclassified (5 sources) History of partial resection of colon; Translations: [Acquired absence of other specified parts of digestive tract] 08-02-2023 Episodic Comment on above: 08/01/23 at [facility] - Dr. 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 Past or Other Problems Problem Classification Problem Date Documented Da te Episodic/Chronic Administrative/social admission (20 sources) Advance directive discussed with patient; Translations: [Other specified counseling] Onset: 08-13-2022 08-13-2022 Episodic Benign neoplasm of uterus (20 sources) Uterine leiomyoma; Translations: [Leiomyoma of uterus, unspecified] Onset: 02-07-2016 11-13-2021 Episodic Deficiency and other anemia (20 sources) Anemia; Translations: [Anemia, unspecified] Onset: 02-11-2023 Episodic Deficiency and other anemia (20 sources) Iron deficiency anemia; Translations: [Iron deficiency anemia, unspecified] Onset: 10-04-2023 10-04-2023 Episodic Deficiency and other anemia (1 source) Iron deficiency anemia, unspecified; Translations: [Iron deficiency anemia, unspecified iron deficiency anemia type] Onset: 10-04-2023 Episodic Deficiency and other anemia (1 source) Anemia, unspecified; Translations: [Anemia, unspecified type] Onset: 07-08-2024 Episodic Diabetes mellitus without complication (20 sources) Hyperglycemia; Translations: [Impaired fasting glucose] Onset: 12-01-2018 Episodic Diseases of mouth; excluding dental (20 sources) Xerostomia; Translations: [Dry mouth, unspecified] Onset: 03-26-2016 05-23-2016 Episodic Genitourinary symptoms and ill-defined conditions (2 sources) Increased frequency of urination; Translations: [Frequency of micturition] Onset: 01-11-2025 01-11-2025 Episodic Immunizations and screening for infectious disease (1 source) Encounter for immunization; Translations: [Encounter for immunization] Onset: 08-20-2024 Episodic Neoplasms of unspecified nature or uncertain behavior (20 sources) Neoplasm of uncertain behavior of skin of back; Translations: [Neoplasm of uncertain behavior of skin] Onset: 06-05-2017 Resolved: 12-06-2017 12-06-2017 Episodic Nutritional deficiencies (20 sources) Serum vitamin B12 low; Translations: [Deficiency of other specified B group vitamins] Onset: 02-07-2022 Episodic Other aftercare (20 sources) Patient encounter status; Translations: [Other terminal operator (current) drug therapy] Onset: 02-07-2016 Episodic Other aftercare (1 source) Drug therapy finding; Translations: [Other usp (current) drug therapy] Onset: 12-06-2016 12-09-2019 Episodic Other aftercare (1 source) Other usp (current) drug therapy; Translations: [Medication management] Onset: 12-09-2019 Episodic Other and unspecified benign neoplasm (20 sources) Benign neoplasm of skin of back; Translations: [Melanocytic nevi of trunk] Onset: 07-11-2017 07-11-2017 Episodic Other bone disease and musculoskeletal deformities (20 sources) Senile osteopenia; Translations: [Other specified disorders of bone density and structure, unspecified site] Onset: 12-15-2019 12-15-2019 Episodic Other connective tissue disease (20 sources) Recurrent falls ; Translations: [Repeated falls] Onset: 07-20-2021 07-20-2021 Episodic Other connective tissue disease (1 source) Pain in left leg; Translations: [Left leg pain] Onset: 08-20-2024 Episodic Other screening for suspected conditions (not mental disorders or infectious disease) (1 source) Encounter for screening mammogram for malignant neoplasm of breast; Translations: [Encounter for screening mammogram for breast cancer] Onset: 02-22-2025 Episodic Residual codes; unclassified (20 sources) Current drinker; Translations: [Other problems related to lifestyle] Onset: 02-07-2016 11-13-2021 Episodic Residual codes; unclassified (20 sources) Family history of cancer of colon; Translations: [Family history of malignant neoplasm of digestive organs] Onset: 02-14-2016 05-23-2016 Episodic Residual codes; unclassified (20 sources) Amnesia; Translations: [Other amnesia] Onset: 06-01-2019 06-01-2019 Episodic Residual codes; unclassified (20 sources) Active living will ; Translations: [Other specified health status] Onset: 02-12-2023 02-12-2023 Episodic Residual codes; unclassified (20 sources) Driving fitness status; Translations: [Other specified personal risk factors, not elsewhere classified] Onset: 07-25-2023 07-25-2023 Episodic Residual codes; unclassified (1 source) Asymptomatic menopausal state; Translations: [Asymptomatic menopause] Onset: 02-22-2025 Episodic Spondylosis; intervertebral disc disorders; other back problems (20 sources) Acute low back pain; Translations: [Acute midline low back pain without sciatica] Onset: 09-14-2024 08-25-2024 Episodic Superficial injury; contusion (2 sources) Injury of right lower leg; Translations: [Contusion of right lower leg, initial encounter] Onset: 03-08-2025 03-09-2025 Episodic Results Test Name Value Interpretation Reference Range Facility CBC W/Diff, Automatedon 09-0 -2024 Absolute Lymph 1.73 X10 3/uL Normal 0.83-4.51 [facility] Comment on above: Order Comment: 213.1 Performed By: #### L 500.4050, L100.0100 #### [facility] Laboratory [address] [place], [address] Absolute Neut 2.8 X10 3/uL Normal 2.0-7.7 [facility] Comment on above: Order Comment: 213.1 Performed By: #### L 500.4050, L100.0100 #### [facility] [address] [place], [address] Basophils/100 WBC (Bld) 0.6 % Normal 0-1 [facility] Comment on above: Order Comment: 213.1 Performed By: #### L 500.4050, L100.0100 #### [facility] [address] [place], [address] Eosinophils/100 WBC (Bld) 3.8 % Normal 0-5 [facility] Comment on above: Order Comment: 213.1 Performed By: #### L 500.4050, L100.0100 #### [facility] [address] [place], [address] Erythrocyte distribution width (RBC) [Ratio] 13.2 % Normal 11.6-14.6 [facility] Comment on above: Order Comment: 213.1 Performed By: #### L 500.4050, L100.0100 #### [facility] [address] [place], [address] Hematocrit (Bld) [Volume fraction] 33.6 % Low 37-47 [facility] Comment on above: Order Comment: 213.1 Performed By: #### L 500.4050, L100.0100 #### [facility] [address] [place], [address] Hemoglobin (Bld) [Mass/Vol] 10.6 g/dL Low 12.0-15.0 [facility] Comment on above: Order Comment: 213.1 Performed By: #### L 500.4050, L100.0100 #### [facility] [address] [place], [address] IG% 0.600 Normal 0.0-0.9 [facility] Comment on above: Order Comment: 213.1 Result Comment: IG% - Immature Granulocytes (promyelocytes, myelocytes and metamyelocytes) > 1% indicates that a LEFT SHIFT is Present. Performed By: #### L 500.4050, L100.0100 #### [facility] [address] [place], [address] Lymphocytes/100 WBC (Bld) 32.6 % Normal 19-41 [facility] Comment on above: Order Comment: 213.1 Performed By: #### L 500.4050, L100.0100 #### [facility] [address] [place], [address] MCH (RBC) [Entitic mass] 28.8 pg Normal 27.0-32.0 [facility] Comment on above: Order Comment: 213.1 Performed By: #### L 500.4050, L100.0100 #### [facility] [address] [place], [address] MCHC (RBC) [Mass/Vol] 31.5 g/dL Low 32-36 [facility] Comment on above: Order Comment: 213.1 Performed By: #### L 500.4050, L100.0100 #### [facility] [address] [place], [address] MCV (RBC) [Entitic vol] 91.3 fL Normal 81-99 [facility] Comment on above: Order Comment: 213.1 Performed By: #### L 500.4050, L100.0100 #### [facility] [address] [place], [address] Monocytes/100 WBC (Bld) 10.4 % High 0-10 [facility] Comment on above: Order Comment: 213.1 Performed By: #### L 500.4050, L100.0100 #### [facility] [address] [place], [address] Neutrophils/100 WBC (Bld) 52.0 % Normal 47-70 [facility] Comment on above: Order Comment: 213.1 Performed By: #### L 500.4050, L100.0100 #### [facility] [address] [place], [address] Nucleated RBC (Bld) [#/Vol] 0 10*3/uL Normal 0-5 [facility] Comment on above: Order Comment: 213.1 Performed By: #### L 500.4050, L100.0100 #### [facility] [address] [place], [address] Platelet mean volume (Bld) [Entitic vol] 11.9 fL Normal 6.2-12.0 [facility] Comment on above: Order Comment: 213.1 Performed By: #### L 500.4050, L100.0100 #### [facility] [address] [place], [address] Platelets (Bld) [#/Vol] 216 10*3/uL Normal 150-450 [facility] Comment on above: Order Comment: 213.1 Performed By: #### L 500.4050, L100.0100 #### [facility] [address] [place], [address] RBC (Bld) [#/Vol] 3.68 10*6/uL Low 4.2-5.4 [facility] Comment on above: Order Comment: 213.1 Performed By: #### L 500.4050, L100.0100 #### [facility] [address] [place], [address] RDW SD 44.2 fl High 35.1-43.9 [facility] Comment on above: Order Comment: 213.1 Performed By: #### L 500.4050, L100.0100 #### [facility] [address] [place], [address] WBC (Bld) [#/Vol] 5.3 10*3/uL Normal 4.4-11.[address] [facility] Comment on above: Order Comment: 213.1 Performed By: #### L 500.4050, L100.0100 #### [facility] [address] [place], [address] Comprehensive Metabolic Prof ilon 07-22-2025 Albumin [Mass/Vol] 3.9 g/dL Normal 3.4-4.[address] [facility] Comment on above: Order Comment: 213.1 Performed By: #### L 500.4050, L100.0100 #### [facility] [address] [place], [address] Albumin/Globulin [Mass ratio] 1.7 {ratio} Normal 0.9-2.4 [facility] Comment on above: Order Comment: 213.1 Performed By: #### L 500.4050, L100.0100 #### [facility] [address] [place], [address] ALK PHOS 65 U/L Normal 35-104 [facility] Comment on above: Order Comment: 213.1 Performed By: #### L 500.4050, L100.0100 #### [facility] [address] [place], [address] ALT [Catalytic activity/Vol] 72 U/L High <=34 [facility] Comment on above: Order Comment: 213.1 Performed By: #### L 500.4050, L100.0100 #### [facility] [address] [place], [address] AST [Catalytic activity/Vol] 44 U/L High <=31 [facility] Comment on above: Order Comment: 213.1 Performed By: #### L 500.4050, L100.0100 #### [facility] [address] [place], [address] Bilirubin [Mass/Vol] 0.22 mg/dL Normal 0.00-1.30 [facility] Comment on above: Order Comment: 213.1 Performed By: #### L 500.4050, L100.0100 #### [facility] [address] [place], [address] BUN/CRE 20.4 RATIO High 10-20 [facility] Comment on above: Order Comment: 213.1 Performed By: #### L 500.4050, L100.0100 #### [facility] [address] [place], [address] Calcium [Mass/Vol] 9.7 mg/dL Normal 7.6-11.[address] [facility] Comment on above: Order Comment: 213.1 Performed By: #### L 500.4050, L100.0100 #### [facility] [address] [place], [address] Chloride [Moles/Vol] 104 mmol/L Normal 98-108 [facility] Comment on above: Order Comment: 213.1 Performed By: #### L 500.4050, L100.0100 #### [facility] [address] [place], [address] CO2 [Moles/Vol] 25.4 mmol/L Normal 21.0-32.0 [facility] Comment on above: Order Comment: 213.1 Performed By: #### L 500.4050, L100.0100 #### [facility] [address] [place], [address] Creatinine [Mass/Vol] 0.94 mg/dL Normal 0.70-1.20 [facility] Comment on above: Order Comment: 213.1 Performed By: #### L 500.4050, L100.0100 #### [facility] [address] [place], [address] GAP 9 Normal 5-15 [facility] Comment on above: Order Comment: 213.1 Performed By: #### L 500.4050, L100.0100 #### [facility] [address] [place], [address] GFR/1.73 sq M.predicted among non-blacks MDRD (S/P/Bld) [Vol rate/Area] 64 mL/min/{1.73_m2} Normal >60 [facility] Comment on above: Order Comment: 213.1 Result Comment: mL/m in/1.73m2 CKD-EPI Creatinine Equation (2020) Performed By: #### L 500.4050, L100.0100 #### [facility] [address] [place], [address] Globulin (S) [Mass/Vol] 2.4 g/dL Normal 2.2-4.2 [facility] Comment on above: Order Comment: 213.1 Performed By: #### L 500.4050, L100.0100 #### [facility] [address] [place], [address] Glucose [Mass/Vol] 100 mg/dL High 70-[address] [facility] Comment on above: Order Comment: 213.1 Performed By: #### L 500.4050, L100.0100 #### [facility] [address] [place], [address] Potassium [Moles/Vol] 4.5 mmol/L Normal 3.3-5.1 [facility] Comment on above: Order Comment: 213.1 Performed By: #### L 500.4050, L100.0100 #### [facility] [address] [place], [address] Sodium [Moles/Vol] 138 mmol/L Normal 133-[address] [facility] Comment on above: Order Comment: 213.1 Performed By: #### L 500.4050, L100.0100 #### [facility] [address] [place], [address] T PROT 6.3 g/dL Normal 5.9-8.4 [facility] Comment on above: Order Comment: 213.1 Performed By: #### L 500.4050, L100.0100 #### [facility] [address] [place], [address] Urea nitrogen [Mass/Vol] 19 mg/dL Normal - [facility] Comment on above: Order Comment: 213.1 Performed By: #### L 500.4050, L100.0100 #### [facility] [address] [place], [address] Basic Metabolic Profile (BMP )on 07-10-2025 BUN Normal - [facility] Comment on above: Result Comment: Canc elled via OM: Order cancelled - Patient discharged Performed By: #### L 500.4050, L100.0100 #### [facility] [address] [place], [address] BUN/CRE Normal - [facility] Comment on above: Result Comment: Canc elled via OM: Order cancelled - Patient discharged Performed By: #### L 500.4050, L100.0100 #### [facility] [address] [place], [address] Calcium Normal 7.6-11.0 [facility] Comment on above: Result Comment: Canc elled via OM: Order cancelled - Patient discharged Performed By: #### L 500.4050, L100.0100 #### [facility] [address] [place], [address] CL Normal 98-108 [facility] Comment on above: Result Comment: Canc elled via OM: Order cancelled - Patient discharged Performed By: #### L 500.4050, L100.0100 #### [facility] [address] [place], [address] CO2 Normal 21.0-32.0 [facility] Comment on above: Result Comment: Canc elled via OM: Order cancelled - Patient discharged Performed By: #### L 500.4050, L100.0100 #### [facility] [address] [place], [address] CREAT,SERUM Normal 0.70-1.20 [facility] Comment on above: Result Comment: Canc elled via OM: Order cancelled - Patient discharged Performed By: #### L 500.4050, L100.0100 #### [facility] [address] [place], [address] eGFR Normal >60 [facility] Comment on above: Result Comment: Canc elled via OM: Order cancelled - Patient discharged Performed By: #### L 500.4050, L100.0100 #### [facility] [address] [place], [address] GAP Normal 5-15 [facility] Comment on above: Result Comment: Canc elled via OM: Order cancelled - Patient discharged Performed By: #### L 500.4050, L100.0100 #### [facility] [address] [place], [address] GLU Normal 70-99 [facility] Comment on above: Result Comment: Canc elled via OM: Order cancelled - Patient discharged Performed By: #### L 500.4050, L100.0100 #### [facility] [address] [place], [address] Potassium Normal 3.3-5.1 [facility] Comment on above: Result Comment: Canc elled via OM: Order cancelled - Patient discharged Performed By: #### L 500.4050, L100.0100 #### [facility] [address] [place], [address] Basic Metabolic Profile (BMP) Normal 133-145 [facility] Comment on above: Result Comment: Canc elled via OM: Order cancelled - Patient discharged Performed By: #### L 500.4050, L100.0100 #### [facility] [address] [place], [address] CBC W/Diff, Automatedon 08-2 Absolute Neut Normal 2.0-7.7 [facility] Comment on above: Result Comment: Canc elled via OM: Order cancelled - Patient discharged Performed By: #### L 500.4050, L100.0100 #### [facility] [address] [place], [address] HCT Normal 37-47 [facility] Comment on above: Result Comment: Canc elled via OM: Order cancelled - Patient discharged Performed By: #### L 500.4050, L100.0100 #### [facility] [address] [place], [address] HGB Normal 12.0-15.0 [facility] Comment on above: Result Comment: Canc elled via OM: Order cancelled - Patient discharged Performed By: #### L 500.4050, L100.0100 #### [facility] [address] [place], [address] MCH Normal 27.0-32.0 [facility] Comment on above: Result Comment: Canc elled via OM: Order cancelled - Patient discharged Performed By: #### L 500.4050, L100.0100 #### [facility] Laboratory [address] [place], [address] MCHC Normal 32-36 [facility] Comment on above: Result Comment: Canc elled via OM: Order cancelled - Patient discharged Performed By: #### L 500.4050, L100.0100 #### [facility] Laboratory [address] [place], [address] MCV Normal 81-99 [facility] Comment on above: Result Comment: Canc elled via OM: Order cancelled - Patient discharged Performed By: #### L 500.4050, L100.0100 #### [facility] Laboratory [address] [place], [address] NEUT% Normal 47-70 [facility] Comment on above: Result Comment: Canc elled via OM: Order cancelled - Patient discharged Performed By: #### L 500.4050, L100.0100 #### [facility] Laboratory [address] [place], [address] PLT Normal 150-450 [facility] Comment on above: Result Comment: Canc elled via OM: Order cancelled - Patient discharged Performed By: #### L 500.4050, L100.0100 #### [facility] Laboratory [address] [place], [address] RBC Normal 4.2-5.4 [facility] Comment on above: Result Comment: Canc elled via OM: Order cancelled - Patient discharged Performed By: #### L 500.4050, L100.0100 #### [facility] Laboratory [address] [place], [address] RDW CV Normal 11.6-14.6 [facility] Comment on above: Result Comment: Canc elled via OM: Order cancelled - Patient discharged Performed By: #### L 500.4050, L100.0100 #### [facility] Laboratory [address] [place], [address] RDW SD Normal 35.1-43.9 [facility] Comment on above: Result Comment: Canc elled via OM: Order cancelled - Patient discharged Performed By: #### L 500.4050, L100.0100 #### [facility] Laboratory [address] [place], [address] WBC Normal 4.4-11.0 [facility] Comment on above: Result Comment: Canc elled via OM: Order cancelled - Patient discharged Performed By: #### L 500.4050, L100.0100 #### [facility] Laboratory [address] [place], [address] Basic Metabolic Profile (BMP )on 07-09-2025 BUN Normal 4-19 [facility] Comment on above: Result Comment: Canc elled via OM: Order cancelled - Patient discharged Performed By: #### L 500.4050, L100.0100 #### [facility] Laboratory [address] [place], [address] BUN/CRE Normal 10-20 [facility] Comment on above: Result Comment: Canc elled via OM: Order cancelled - Patient discharged Performed By: #### L 500.4050, L100.0100 #### [facility] Laboratory [address] [place], [address] Calcium Normal 7.6-11.0 [facility] Comment on above: Result Comment: Canc elled via OM: Order cancelled - Patient discharged Performed By: #### L 500.4050, L100.0100 #### [facility] Laboratory [address] [place], [address] CL Normal 98-108 [facility] Comment on above: Result Comment: Canc elled via OM: Order cancelled - Patient discharged Performed By: #### L 500.4050, L100.0100 #### [facility] Laboratory [address] [place], [address] CO2 Normal 21.0-32.0 [facility] Comment on above: Result Comment: Canc elled via OM: Order cancelled - Patient discharged Performed By: #### L 500.4050, L100.0100 #### [facility] Laboratory [address] [place], [address] CREAT,SERUM Normal 0.70-1.20 [facility] Comment on above: Result Comment: Canc elled via OM: Order cancelled - Patient discharged Performed By: #### L 500.4050, L100.0100 #### [facility] Laboratory [address] [place], [address] eGFR Normal >60 [facility] Comment on above: Result Comment: Canc elled via OM: Order cancelled - Patient discharged Performed By: #### L 500.4050, L100.0100 #### [facility] Laboratory [address] [place], [address] GAP Normal 5-15 [facility] Comment on above: Result Comment: Canc elled via OM: Order cancelled - Patient discharged Performed By: #### L 500.4050, L100.0100 #### [facility] Laboratory [address] [place], [address] GLU Normal 70-99 [facility] Comment on above: Result Comment: Canc elled via OM: Order cancelled - Patient discharged Performed By: #### L 500.4050, L100.0100 #### [facility] Laboratory [address] [place], [address] Potassium Normal 3.3-5.1 [facility] Comment on above: Result Comment: Canc elled via OM: Order cancelled - Patient discharged Performed By: #### L 500.4050, L100.0100 #### [facility] Laboratory [address] [place], [address] Basic Metabolic Profile (BMP) Normal 133-145 [facility] Comment on above: Result Comment: Canc elled via OM: Order cancelled - Patient discharged Performed By: #### L 500.4050, L100.0100 #### [facility] Laboratory [address] [place], [address] CBC W/Diff, Automatedon 08-2 Absolute Neut Normal 2.0-7.7 [facility] Comment on above: Result Comment: Canc elled via OM: Order cancelled - Patient discharged Performed By: #### L 500.4050, L100.0100 #### [facility] Laboratory [address] [place], [address] HCT Normal 37-47 [facility] Comment on above: Result Comment: Canc elled via OM: Order cancelled - Patient discharged Performed By: #### L 500.4050, L100.0100 #### [facility] Laboratory [address] [place], [address] HGB Normal 12.0-15.0 [facility] Comment on above: Result Comment: Canc elled via OM: Order cancelled - Patient discharged Performed By: #### L 500.4050, L100.0100 #### [facility] Laboratory [address] [place], [address] MCH Normal 27.0-32.0 [facility] Comment on above: Result Comment: Canc elled via OM: Order cancelled - Patient discharged Performed By: #### L 500.4050, L100.0100 #### [facility] Laboratory [address] [place], [address] MCHC Normal 32-36 [facility] Comment on above: Result Comment: Canc elled via OM: Order cancelled - Patient discharged Performed By: #### L 500.4050, L100.0100 #### [facility] Laboratory [address] [place], [address] MCV Normal 81-99 [facility] Comment on above: Result Comment: Canc elled via OM: Order cancelled - Patient discharged Performed By: #### L 500.4050, L100.0100 #### [facility] Laboratory [address] [place], [address] NEUT% Normal 47-70 [facility] Comment on above: Result Comment: Canc elled via OM: Order cancelled - Patient discharged Performed By: #### L 500.4050, L100.0100 #### [facility] Laboratory [address] [place], [address] PLT Normal 150-450 [facility] Comment on above: Result Comment: Canc elled via OM: Order cancelled - Patient discharged Performed By: #### L 500.4050, L100.0100 #### [facility] Laboratory [address] [place], [address] RBC Normal 4.2-5.4 [facility] Comment on above: Result Comment: Canc elled via OM: Order cancelled - Patient discharged Performed By: #### L 500.4050, L100.0100 #### [facility] Laboratory [address] [place], [address] RDW CV Normal 11.6-14.6 [facility] Comment on above: Result Comment: Canc elled via OM: Order cancelled - Patient discharged Performed By: #### L 500.4050, L100.0100 #### [facility] Laboratory [address] [place], [address] RDW SD Normal 35.1-43.9 [facility] Comment on above: Result Comment: Canc elled via OM: Order cancelled - Patient discharged Performed By: #### L 500.4050, L100.0100 #### [facility] Laboratory [address] [place], [address] WBC Normal 4.4-11.0 [facility] Comment on above: Result Comment: Canc elled via OM: Order cancelled - Patient discharged Performed By: #### L 500.4050, L100.0100 #### [facility] Laboratory [address] [place], [address] Absolute lymphocyte countOrd ered By: Davin Kirkland on 07-08-2025 Lymphocytes Auto (Unsp spec) [#/Vol] 1.59 10*3/uL 0.83-4.51 [facility] Absolute neutrophil countOrd ered By: Davin Kirkland on 07-08-2025 Neutrophils (Bld) [#/Vol] 3.3 10*3/uL 2.0-7.7 [facility] Anion gap in Serum or Plasma Ordered By: Davin Kirkland on 07-08-2025 Anion gap [Moles/Vol] 8 mmol/L - [facility] Automated lymphocyte count a s percentage of total leukocytesOrdered By: Davin Kirkland on 07-08-2025 Lymphocytes/100 WBC Auto (Unsp spec) 28.3 % - [facility] BUN/creatinine ratioOrdered By: Davin Kirkland on 07-08-2025 Urea nitrogen/Creatinine [Mass ratio] 18.7 mg/mg - [facility] Basic Metabolic Profile (BMP )on 07-08-2025 BUN/CRE 18.7 RATIO Normal - [facility] Comment on above: Performed By: #### L 100.0100, L501.2300, L501.5200, L500.2500 #### [facility] Laboratory [address] [place], [address] Calcium [Mass/Vol] 9.3 mg/dL Normal 7.6-11.[address] [facility] Comment on above: Performed By: #### L 100.0100, L501.2300, L501.5200, L500.2500 #### [facility] Laboratory [address] [place], [address] Chloride [Moles/Vol] 105 mmol/L Normal 98-108 [facility] Comment on above: Performed By: #### L 100.0100, L501.2300, L501.5200, L500.2500 #### [facility] Laboratory [address] [place], [address] CO2 [Moles/Vol] 23.2 mmol/L Normal 21.0-32.0 [facility] Comment on above: Performed By: #### L 100.0100, L501.2300, L501.5200, L500.2500 #### [facility] Laboratory [address] [place], [address] Creatinine [Mass/Vol] 0.95 mg/dL Normal 0.70-1.20 [facility] Comment on above: Performed By: #### L 100.0100, L501.2300, L501.5200, L500.2500 #### [facility] Laboratory [address] [place], [address] ECRCL 43.96 ml/min Low 50-250 [facility] Comment on above: Performed By: #### L 100.0100, L501.2300, L501.5200, L500.2500 #### [facility] Laboratory [address] [place], [address] GAP 8 Normal 5-15 [facility] Comment on above: Performed By: #### L 100.0100, L501.2300, L501.5200, L500.2500 #### [facility] Laboratory [address] [place], [address] GFR/1.73 sq M.predicted among non-blacks MDRD (S/P/Bld) [Vol rate/Area] 63 mL/min/{1.73_m2} Normal >60 [facility] Comment on above: Result Comment: mL/m in/1.73m2 CKD-EPI Creatinine Equation (2020) Performed By: #### L 100.0100, L501.2300, L501.5200, L500.2500 #### [facility] Laboratory [address] [place], [address] Glucose [Mass/Vol] 95 mg/dL Normal 70-[address] [facility] Comment on above: Performed By: #### L 100.0100, L501.2300, L501.5200, L500.2500 #### [facility] Laboratory [address] [place], [address] Potassium [Moles/Vol] 4.8 mmol/L Normal 3.3-5.1 [facility] Comment on above: Performed By: #### L 100.0100, L501.2300, L501.5200, L500.2500 #### [facility] Laboratory [address] [place], [address] Sodium [Moles/Vol] 137 mmol/L Normal 133-[address] [facility] Comment on above: Performed By: #### L 100.0100, L501.2300, L501.5200, L500.2500 #### [facility] Laboratory [address] [place], [address] Urea nitrogen [Mass/Vol] 18 mg/dL Normal 4-19 [facility] Comment on above: Performed By: #### L 100.0100, L501.2300, L501.5200, L500.2500 #### [facility] Laboratory [address] [place], [address] Basophil percentageOrdered B y: Davin Kirkland on 07-08-2025 Basophils/100 WBC (Bld) 0.9 % 0-1 [facility] CBC W/Diff, Automatedon 06-19 Absolute Lymph 1.59 X10 3/uL Normal 0.83-4.51 [facility] Comment on above: Performed By: #### L 100.0100, L501.2300, L501.5200, L500.2500 #### [facility] Laboratory [address] [place], [address] Absolute Neut 3.3 X10 3/uL Normal 2.0-7.7 [facility] Comment on above: Performed By: #### L 100.0100, L501.2300, L501.5200, L500.2500 #### [facility] Laboratory [address] [place], [address] Basophils/100 WBC (Bld) 0.9 % Normal 0-1 [facility] Comment on above: Performed By: #### L 100.0100, L501.2300, L501.5200, L500.2500 #### [facility] Laboratory [address] [place], [address] Eosinophils/100 WBC (Bld) 2.3 % Normal 0-5 [facility] Comment on above: Performed By: #### L 100.0100, L501.2300, L501.5200, L500.2500 #### [facility] Laboratory [address] [place], [address] Erythrocyte distribution width (RBC) [Ratio] 13.5 % Normal 11.6-14.6 [facility] Comment on above: Performed By: #### L 100.0100, L501.2300, L501.5200, L500.2500 #### [facility] Laboratory [address] [place], [address] Hematocrit (Bld) [Volume fraction] 30.5 % Low 37-47 [facility] Comment on above: Performed By: #### L 100.0100, L501.2300, L501.5200, L500.2500 #### [facility] Laboratory [address] [place], [address] Hemoglobin (Bld) [Mass/Vol] 9.9 g/dL Low 12.0-15.0 [facility] Comment on above: Performed By: #### L 100.0100, L501.2300, L501.5200, L500.2500 #### [facility] Laboratory [address] [place], [address] IG% 0.200 Normal 0.0-0.9 [facility] Comment on above: Result Comment: IG% - Immature Granulocytes (promyelocytes, myelocytes and metamyelocytes) > 1% indicates that a LEFT SHIFT is Present. Performed By: #### L 100.0100, L501.2300, L501.5200, L500.2500 #### [facility] Laboratory [address] [place], [address] Lymphocytes/100 WBC (Bld) 28.3 % Normal 19-41 [facility] Comment on above: Performed By: #### L 100.0100, L501.2300, L501.5200, L500.2500 #### [facility] Laboratory [address] [place], [address] MCH (RBC) [Entitic mass] 29.0 pg Normal 27.0-32.0 [facility] Comment on above: Performed By: #### L 100.0100, L501.2300, L501.5200, L500.2500 #### [facility] Laboratory [address] [place], [address] MCHC (RBC) [Mass/Vol] 32.5 g/dL Normal 32-36 [facility] Comment on above: Performed By: #### L 100.0100, L501.2300, L501.5200, L500.2500 #### [facility] Laboratory [address] [place], [address] MCV (RBC) [Entitic vol] 89.4 fL Normal 81-99 [facility] Comment on above: Performed By: #### L 100.0100, L501.2300, L501.5200, L500.2500 #### [facility] Laboratory [address] [place], [address] Monocytes/100 WBC (Bld) 9.1 % Normal 0-10 [facility] Comment on above: Performed By: #### L 100.0100, L501.2300, L501.5200, L500.2500 #### [facility] Laboratory [address] [place], [address] Neutrophils/100 WBC (Bld) 59.2 % Normal 47-70 [facility] Comment on above: Performed By: #### L 100.0100, L501.2300, L501.5200, L500.2500 #### [facility] Laboratory [address] [place], [address] Nucleated RBC (Bld) [#/Vol] 0 10*3/uL Normal 0-5 [facility] Comment on above: Performed By: #### L 100.0100, L501.2300, L501.5200, L500.2500 #### [facility] Laboratory [address] [place], [address] Platelet mean volume (Bld) [Entitic vol] 10.8 fL Normal 6.2-12.0 [facility] Comment on above: Performed By: #### L 100.0100, L501.2300, L501.5200, L500.2500 #### [facility] Laboratory [address] [place], [address] Platelets (Bld) [#/Vol] 222 10*3/uL Normal 150-450 [facility] Comment on above: Performed By: #### L 100.0100, L501.2300, L501.5200, L500.2500 #### [facility] Laboratory [address] [place], [address] RBC (Bld) [#/Vol] 3.41 10*6/uL Low 4.2-5.4 [facility] Comment on above: Performed By: #### L 100.0100, L501.2300, L501.5200, L500.2500 #### [facility] Laboratory [address] [place], [address] RDW SD 44.7 fl High 35.1-43.9 [facility] Comment on above: Performed By: #### L 100.0100, L501.2300, L501.5200, L500.2500 #### [facility] Laboratory [address] [place], [address] WBC (Bld) [#/Vol] 5.6 10*3/uL Normal 4.4-11.[address] [facility] Comment on above: Performed By: #### L 100.0100, L501.2300, L501.5200, L500.2500 #### [facility] Laboratory [address] [facility] [place], [address] Carbon dioxide, total [Moles /volume] in Central venous bloodOrdered By: Davin Kirkland on 07-08-2025 CO2 [Moles/Vol] 23.2 mmol/L 21.0-32.0 [facility] Chloride assayOrdered By: Delonte Kirkland on 07-08-2025 Chloride [Moles/Vol] 105 mmol/L 98-108 [facility] Electrocardiogram reportOrde red By: Ilana Kinney on 07-08-2025 EKG study [facility] [address] [place] [address] 12 Lead EKG 07/07/25 1015 MR#: [id number] Acct: [id number] Name: PRASHANT SHEFFIELD Rep #:[id number] : 1950 75 From: Ilana sinclair MD Attending Dr: Dr. Davin Kirkland MD Status: ADM ROXIE Ordering Dr: Shaji Rosales MD Date: Location: [facility] Sex: F C Admitted: 07/07/25 Test Reason : Blood Pressure : */* mmHG Vent. Rate : 80 BPM Atrial Rate : 80 BPM P-R Int : 110 ms QRS Dur : 82 ms QT Int : 336 ms P-R-T Axes : 48 67 78 degrees QTcB Int : 387 ms Sinus rhythm with short VT Nonspecific T wave abnormality Abnormal ECG Confirmed by MARISA MEDEROS, LENORA ([id number]), editor publications RAIN ORTIZ ([id number]) on07/08/2025 1:31:04 PM Referred By: Confirmed By: LENORA KINNEY MD 07/08/25 1331 Date _ Ilana Kinney MD CC: Dr. Davin Kirkland MD; Dr. Shaji Rosales MD; Dr. Ez Solitario MD ~ Signed [facility] Other Eosinophil percentageOrdered By: Davin Kirkland on 07-08-2025 Eosinophils/100 WBC (Bld) 2.3 % 0-5 [facility] Erythrocyte distribution wid th ratioOrdered By: Davin Kirkland on 07-08-2025 Erythrocyte distribution width (RBC) [Ratio] 13.5 % 11.6-14.6 [facility] Erythrocyte distribution wid th standard deviationOrdered By: Davin Kirkland on 07-08-2025 Erythrocyte distribution width (RBC) [Ratio] 44.7 fl High 35.1-43.9 [facility] Glomerular filtration rate ( GFR) estimation/1.73 sq m using serum, plasma, or whole bOrdered By: Davin Kirkland on 07-08-2025 GFR/1.73 sq M.predicted among non-blacks MDRD (S/P/Bld) [Vol rate/Area] 63 mL/min/{1.73_m2} >60 [facility] Comment on above: mL/min/1.73m2 CKD-EP I Creatinine Equation (2020) Hematocrit Auto (Bld) [Volum e fraction]Ordered By: Davin Kirkland on 07-08-2025 Hematocrit (Bld) [Volume fraction] 30.5 % Low 37-47 [facility] Hemoglobin measurementOrdere d By: Davin Kirkland on 07-08-2025 Hemoglobin (Bld) [Mass/Vol] 9.9 g/dL Low 12.0-15.0 [facility] Immature granulocytes/100 WB C Auto (Bld)Ordered By: Davin Kirkland on 07-08-2025 Immature granulocytes/100 WBC (Bld) 0.200 % 0.0-0.9 [facility] [facility] Comment on above: IG% - Immature Granu locytes (promyelocytes, myelocytes and metamyelocytes) > 1% indicates that a LEFT SHIFT is Present. Iron measurement (mass/mass) Ordered By: Davin Kirkland on 07-08-2025 Iron (Unsp spec) [Mass/Mass] 63 ug/dL 50-170 [facility] Iron+Iron Binding Capacityon 07-08-2025 Iron [Mass/Vol] 63 ug/dL Normal 50-170 [facility] Comment on above: Performed By: #### L 100.0100, L500.2500 #### [facility] Laboratory [address] [place], [address] IRON SATURATION 26.0 Normal 13-59 [facility] Comment on above: Performed By: #### L 100.0100, L500.2500 #### [facility] Laboratory [address] [place], [address] TIBC 245 ug/dL Low 250-450 [facility] Comment on above: Performed By: #### L 100.0100, L500.2500 #### [facility] Laboratory [address] [place], [address] UIBC 182 ug/dL Low 228-428 [facility] Comment on above: Performed By: #### L 100.0100, L500.2500 #### [facility] Laboratory [address] [place], [address] MCV (mean corpuscular volume ) determinationOrdered By: Davin Kirkland on 07-08-2025 MCV (RBC) [Entitic vol] 89.4 fL 81-99 [facility] Magnesiumon 07-08-2025 Magnesium [Mass/Vol] 2.1 mg/dL Normal 1.5-2.2 [facility] Comment on above: Performed By: #### L 100.0100, L501.2300, L501.5200, L500.2500 #### [facility] Laboratory [address] [facility] [id number] Magnesium measurement (mass/ volume)Ordered By: Davin Kirkland on 07-08-2025 Magnesium (Unsp spec) [Mass/Vol] 2.1 mg/dL 1.5-2.2 [facility] Mean corpuscular hemoglobin (MCH) determinationOrdered By: Davin Kirkland on 07-08-2025 MCH (RBC) [Entitic mass] 29.0 pg 27.0-32.0 [facility] Mean corpuscular hemoglobin concentration (MCHC) determinationOrdered By: Davin Kirkland on 07-08-2025 MCHC (RBC) [Mass/Vol] 32.5 g/dL 32-36 [facility] Mean platelet volume determi nationOrdered By: Davin Kirkland on 07-08-2025 Platelet mean volume (Bld) [Entitic vol] 10.8 fL 6.2-12.0 [facility] Monocyte percentageOrdered B y: Davin Kirkland on 07-08-2025 Monocytes/100 WBC (Bld) 9.1 % 0-10 [facility] Neutrophil percentageOrdered By: Davin Kirkland on 07-08-2025 Neutrophils/100 WBC (Bld) 59.2 % 47-70 [facility] No Panel InformationOrdered By: Davin Kirkland on 07-08-2025 Unsaturated Iron Binding Capacity 182 ug/dL Low 228-428 [facility] Nucleated red blood cell per centageOrdered By: Davin Kirkland on 07-08-2025 Nucleated RBC/100 WBC (Bld) [Ratio] 0 % 0-5 [facility] Phosphoruson 07-08-2025 Phosphate [Mass/Vol] 2.9 mg/dL Normal 2.7-4.5 [facility] Comment on above: Performed By: #### L 100.0100, L501.2300, L501.5200, L500.2500 #### [facility] Laboratory [address] [place], [place], [id number] Platelet countOrdered By: Delonte Kirkland on 07-08-2025 Platelets (Bld) [#/Vol] 222 10*3/uL 150-450 [facility] Potassium measurement (mass/ volume)Ordered By: Davin Kirkland on 07-08-2025 Potassium (Unsp spec) [Mass/Vol] 4.8 mmol/L 3.3-5.1 [facility] RBC Auto (Bld) [#/Vol]Ordere d By: Davin Kirkland on 07-08-2025 RBC (Bld) [#/Vol] 3.41 10*6/uL Low 4.2-5.4 [facility] Serum creatinine measurement (mass/volume)Ordered By: Davin Kirkland on 07-08-2025 Creatinine [Mass/Vol] 0.95 mg/dL 0.70-1.20 [facility] Serum glucose measurement (m ass/volume)Ordered By: Davin Kirkland on 07-08-2025 Glucose [Mass/Vol] 95 mg/dL 70-[address] [facility] Serum or plasma calcium carlos urement (mass/volume)Ordered By: Davin Kirkland on 07-08-2025 Calcium [Mass/Vol] 9.3 mg/dL 7.6-11.[address] [facility] Serum or plasma iron saturat ion measurement (mass fraction)Ordered By: Davin Kirkland on 07-08-2025 Iron saturation [Mass fraction] 26.0 % 13-59 [facility] Serum or plasma urea nitroge n measurement (mass/volume)Ordered By: Davin Kirkland on 07-08-2025 Urea nitrogen [Mass/Vol] 18 mg/dL 4-19 [facility] Sodium levelOrdered By: Wang Kirkland on 07-08-2025 Sodium [Moles/Vol] 137 mmol/L 133-[address] [facility] TSH DL <= 0.005 mIU/L QnOrde red By: Davin Kirkland on 07-08-2025 TSH Qn 1.940 uIU/mL 0.300-4.200 [facility] Thyroid Stim Hormone (TSH)on 07-08-2025 TSH 1.940 uIU/mL Normal 0.300-4.200 [facility] Comment on above: Performed By: #### L 022.8540 #### [facility] Laboratory [facility] [place], [address] Vitamin B12on 07-08-2025 Cobalamin (Vitamin B12) [Mass/Vol] 1045 pg/mL High 180-914 [facility] Comment on above: Performed By: #### L 100.0100, L500.2500 #### [facility] Laboratory [address] [place], [address] Vitamin B12 ser/plasOrdered By: Davin Kirkland on 07-08-2025 Cobalamin (Vitamin B12) [Mass/Vol] 1045 pg/mL High 180-914 [facility] White blood cell (WBC) count Ordered By: Davin Kirkland on 07-08-2025 WBC (Bld) [#/Vol] 5.6 10*3/uL 4.4-11.[address] [facility] 12 Lead EKGon 07-07-2025 12 Lead EKG [facility] [address] [place] [address] 12 Lead EKG 07/07/25 1015 MR#: [id number] Acct: [id number] Name: PRASHNAT SHEFFIELD Rep #: [id number] : 1950 75 From: Ilana Kinney MD Attending Dr: Dr. Davin Kirkland MD Status: ADM ROXIE Ordering Dr: Shaji Rosales MD Date: 07/07/25 Location: [facility] Sex: F C Admitted: 07/07/25 Test Reason : Blood Pressure : */* mmHG Vent. Rate : 80 BPM Atrial Rate : 80 BPM P-R Int : 110 ms QRS Dur : 82 ms QT Int : 336 ms P-R-T Axes : 48 67 78 degrees QTcB Int : 387 ms Sinus rhythm with short VT Nonspecific T wave abnormality Abnormal ECG Confirmed by MARISA MEDEROS, LENORA ([id number]), editor publications RAIN ORTIZ ([id number]) on 07/08/2025 1:31:04 PM Referred By: Confirmed By: LENORA KINNEY MD 07/08/25 1331 Date Ilana Kinney MD CC: Dr. Davin Kirkland MD; Dr. Shaji Rosales MD; Dr. Ez Solitario MD Signed Normal [facility] Absolute lymphocyte countOrd ered By: Shaji Rosales on 07-07-2025 Lymphocytes Auto (Unsp spec) [#/Vol] 1.21 10*3/uL 0.83-4.51 [facility] Absolute neutrophil countOrd ered By: Shaji Rosales on 07-07-2025 Neutrophils (Bld) [#/Vol] 3.5 10*3/uL 2.0-7.7 [facility] Anion gap in Serum or Plasma Ordered By: Shaji Rosales on 07-07-2025 Anion gap [Moles/Vol] 12 mmol/L 04-01 [facility] Automated lymphocyte count a s percentage of total leukocytesOrdered By: Shaji Rosales on 07-07-2025 Lymphocytes/100 WBC Auto (Unsp spec) 22.8 % [facility] BUN/creatinine ratioOrdered By: Shaji Rosales on 07-07-2025 Urea nitrogen/Creatinine [Mass ratio] 19.1 mg/mg 09-06 [facility] Basic Metabolic Profile (BMP )on 07-07-2025 BUN/CRE 19.1 RATIO Normal 09-06 [facility] Comment on above: Performed By: #### L 100.0100, L500.2500 #### [facility] Laboratory [address] [place], [address] Calcium [Mass/Vol] 9.7 mg/dL Normal 7.6-11.[address] [facility] Comment on above: Performed By: #### L 100.0100, L500.2500 #### [facility] Laboratory [address] [place], [address] Chloride [Moles/Vol] 99 mmol/L Normal 98-108 [facility] Comment on above: Performed By: #### L 100.0100, L500.2500 #### [facility] Laboratory [address] [place], [address] CO2 [Moles/Vol] 23.7 mmol/L Normal 21.0-32.0 [facility] Comment on above: Performed By: #### L 100.0100, L500.2500 #### [facility] Laboratory [address] [place], [address] Creatinine [Mass/Vol] 1.03 mg/dL Normal 0.70-1.20 [facility] Comment on above: Performed By: #### L 100.0100, L500.2500 #### [facility] Laboratory [address] [place], [address] ECRCL 41.44 ml/min Low 50-250 [facility] Comment on above: Performed By: #### L 100.0100, L500.2500 #### [facility] Laboratory [address] [place], [address] GAP 12 Normal 5-15 [facility] Comment on above: Performed By: #### L 100.0100, L500.2500 #### [facility] Laboratory [address] [place], [address] GFR/1.73 sq M.predicted among non-blacks MDRD (S/P/Bld) [Vol rate/Area] 57 mL/min/{1.73_m2} Low >60 [facility] Comment on above: Result Comment: mL/m in/1.73m2 CKD-EPI Creatinine Equation (2020) Performed By: #### L 100.0100, L500.2500 #### [facility] Laboratory [address] [place], [address] Glucose [Mass/Vol] 112 mg/dL High 70-[address] [facility] Comment on above: Performed By: #### L 100.0100, L500.2500 #### [facility] Laboratory [address] [place], [address] Potassium [Moles/Vol] 4.2 mmol/L Normal 3.3-5.1 [facility] Comment on above: Performed By: #### L 100.0100, L500.2500 #### [facility] Laboratory [address] [place], [address] Sodium [Moles/Vol] 135 mmol/L Normal 133-[address] [facility] Comment on above: Performed By: #### L 100.0100, L500.2500 #### [facility] Laboratory [address] [place], [address] Urea nitrogen [Mass/Vol] 20 mg/dL High 4-19 [facility] Comment on above: Performed By: #### L 100.0100, L500.2500 #### [facility] Laboratory [address] [place], [address] Basophil percentageOrdered B y: Shaji Rosales on 07-07-2025 Basophils/100 WBC (Bld) 0.9 % 0-1 [facility] Bilirubin Test strip Ql (U)O rdered By: Shaji Rosales on 07-07-2025 Bilirubin Ql (U) Negative Negative [facility] CBC W/Diff, Automatedon 06-19 0-2024 Absolute Lymph 1.21 X10 3/uL Normal 0.83-4.51 [facility] Comment on above: Performed By: #### L 100.0100, L500.2500 #### [facility] Laboratory [address] [place], [address] Absolute Neut 3.5 X10 3/uL Normal 2.0-7.7 [facility] Comment on above: Performed By: #### L 100.0100, L500.2500 #### [facility] Laboratory [address] [place], [address] Basophils/100 WBC (Bld) 0.9 % Normal 0-1 [facility] Comment on above: Performed By: #### L 100.0100, L500.2500 #### [facility] Laboratory [address] [place], [address] Eosinophils/100 WBC (Bld) 1.5 % Normal 0-5 [facility] Comment on above: Performed By: #### L 100.0100, L500.2500 #### [facility] Laboratory [address] [place], [address] Erythrocyte distribution width (RBC) [Ratio] 13.4 % Normal 11.6-14.6 [facility] Comment on above: Performed By: #### L 100.0100, L500.2500 #### [facility] Laboratory [address] [place], [address] Hematocrit (Bld) [Volume fraction] 34.7 % Low 37-47 [facility] Comment on above: Performed By: #### L 100.0100, L500.2500 #### [facility] Laboratory [address] [place], [address] Hemoglobin (Bld) [Mass/Vol] 11.1 g/dL Low 12.0-15.0 [facility] Comment on above: Performed By: #### L 100.0100, L500.2500 #### [facility] Laboratory [address] [place], [address] IG% 0.400 Normal 0.0-0.9 [facility] Comment on above: Result Comment: IG% - Immature Granulocytes (promyelocytes, myelocytes and metamyelocytes) > 1% indicates that a LEFT SHIFT is Present. Performed By: #### L 100.0100, L500.2500 #### [facility] Laboratory [address] [place], [address] Lymphocytes/100 WBC (Bld) 22.8 % Normal 19-41 [facility] Comment on above: Performed By: #### L 100.0100, L500.2500 #### [facility] Laboratory [address] [place], [address] MCH (RBC) [Entitic mass] 28.8 pg Normal 27.0-32.0 [facility] Comment on above: Performed By: #### L 100.0100, L500.2500 #### [facility] Laboratory [address] [place], [address] MCHC (RBC) [Mass/Vol] 32.0 g/dL Normal 32-36 [facility] Comment on above: Performed By: #### L 100.0100, L500.2500 #### [facility] Laboratory [address] [place], [address] MCV (RBC) [Entitic vol] 90.1 fL Normal 81-99 [facility] Comment on above: Performed By: #### L 100.0100, L500.2500 #### [facility] Laboratory [address] [place], [address] Monocytes/100 WBC (Bld) 8.3 % Normal 0-10 [facility] Comment on above: Performed By: #### L 100.0100, L500.2500 #### [facility] Laboratory [address] [place], [address] Neutrophils/100 WBC (Bld) 66.1 % Normal 47-70 [facility] Comment on above: Performed By: #### L 100.0100, L500.2500 #### [facility] Laboratory [address] [place], [address] Nucleated RBC (Bld) [#/Vol] 0 10*3/uL Normal 0-5 [facility] Comment on above: Performed By: #### L 100.0100, L500.2500 #### [facility] Laboratory [address] [place], [address] Platelet mean volume (Bld) [Entitic vol] 10.7 fL Normal 6.2-12.0 [facility] Comment on above: Performed By: #### L 100.0100, L500.2500 #### [facility] Laboratory [address] [place], [address] Platelets (Bld) [#/Vol] 239 10*3/uL Normal 150-450 [facility] Comment on above: Performed By: #### L 100.0100, L500.2500 #### [facility] Laboratory [address] [place], [address] RBC (Bld) [#/Vol] 3.85 10*6/uL Low 4.2-5.4 [facility] Comment on above: Performed By: #### L 100.0100, L500.2500 #### [facility] Laboratory [address] [place], [address] RDW SD 44.1 fl High 35.1-43.9 [facility] Comment on above: Performed By: #### L 100.0100, L500.2500 #### [facility] Laboratory [address] [place], [address] WBC (Bld) [#/Vol] 5.3 10*3/uL Normal 4.4-11.[address] [facility] Comment on above: Performed By: #### L 100.0100, L500.2500 #### [facility] Laboratory [address] [place], [address] CPK Total, Creatine Kinaseon 07-07-2025 CPK TOTAL 58 U/L Normal 24-195 [facility] Comment on above: Performed By: #### L 100.0100, L500.2500 #### [facility] Laboratory [address] [place], [address] CRPon 07-07-2025 C-REACTIVE PROT < 3.00 Normal 0.0-3.0 [facility] Comment on above: Performed By: #### L 100.0100, L500.2500 #### [facility] Laboratory [address] [place], [address] Carbon dioxide, total [Moles /volume] in Central venous bloodOrdered By: Shaji Rosales on 07-07-2025 CO2 [Moles/Vol] 23.7 mmol/L 21.0-32.0 [facility] Chest PA and Lateralon 07-07 Chest PA and Lateral [facility] [address] [place] [address] Chest PA and Lateral MR#: [id number] Acct: [id number] Name: PRASHANT SHEFFIELD Rep #: [id number] : 1950 F 75 From: Rufus Gray MD PCP: Dr. Ez Solitario MD Status: REG ER Study: Chest PA and Lateral Date of Exam: 07/07/25 Exam# [id number] Ordering Dr: Shaji Rosales MD PROCEDURE: CHEST PA AND LATERAL 07/07/2025 REASON FOR EXAM: WEAKNESS TECHNIQUE: CHEST PA AND LATERAL COMPARISON: None FINDINGS: Heart size and mediastinal configuration are within normal limits. There is no focal infiltrate or consolidation. There is a 0.6 cm nodular density in the right upper lung with overlying rib and scapula. There is no pneumothorax or effusion. Aortic calcifications are visible. There is no visible acute bony abnormality. RAD/Chest PA and Lateral IMPRESSION: There is a 0.6 cm nodular density in the right upper lung with overlying rib and scapula. Chest CT correlation is recommended. [facility] CC: Dr. Shaji Rosales MD; Dr. Ez Solitario MD Tamper Operator: Signed Normal [facility] Chloride assayOrdered By: Dimitri Rosales on 07-07-2025 Chloride [Moles/Vol] 99 mmol/L 98-108 [facility] Emergency Department Summary on 07-07-2025 Emergency Department Summary [facility] Medical Records Department [address] [place] [address] Emergency Department Summary 07/07/25 MR#: [id number] Acct: [id number] Name: PRASHANT SHEFFIELD Rep #: [id number] : 1950 [id number] From: Shaji Rosales MD PCP: Dr. Ez Solitario MD Status:ADM ROXIE Location: NE3 [id number] HPI History of Present Illness Chief Complaint: Weakness Informant: patient and family (Accompanied by sister.) Onset/Context/Timing Onset: Days Context: Gradual Onset Timing: Continuous Current Severity: Moderate Maximum Severity: Moderate Narrative Narrative: 75-year-old female history of Parkinson disease and hemicolectomy. States she has had pain all over the last month. Her neurologist recently changed some of her medications. She is accompanied by her sister they state this over the last several weeks she has had decreased oral intake and just generalized weakness. She denies any vomiting diarrhea nor fever. She denies any dysuria. She is currently in assisted living and they do not think she is strong enough to take care of her activities of daily living. Prior similar symptoms: No Recent Illness/Hospitalizat ion: No [facility] Medical History Dysphagia History of 1 Parkinson disease Alcohol use Dyslipidemia Hypertension Anxiety and depression GERD without esophagitis Parkinsons disease Home Medications ???Medication ???Instructions ???Recorded ???Last Taken ???Type benztropine 2 mg tablet 1 mg PO BID PARKINSONS 07/20/16 08:10 History 1 mg simvastatin 20 mg tablet 20 mg PO QHS CHOLESTEROL 07/20/16 07/31/23 History aspirin 81 mg chewable tablet 81 mg PO DAILY HEART HEALTH 08/01/23 History omeprazole 40 mg capsule,delayed 40 mg PO DAILY ACID REFLUX 3 08/01/23 History release pramipexole 0.25 mg tablet 0.25 mg PO TID PAKINSONS 08/01/23 Unknown History rasagiline 1 mg tablet 1 mg PO DAILY PARKINSONS 08/01/23 08/01/23 History valsartan 160 mg tablet 160 mg PO DAILY BLOOD PRESSURE 08/01/23 History food supplemt, lactose-reduced 120 ml PO TIDCM supplement #0 mL 0 08/06/23 08/06/23 12:00 Rx 0.08 gram-1.5 kcal/mL oral liquid 120 mL (Ensure Plus High Protein) acetaminophen 500 mg tablet 1,000 mg (2 x 500 mg) PO Q8 PRN Unknown Rx pain #1 TAB alendronate 70 mg tablet 70 mg PO OLMOS osteoporosis #1 TAB 07/28/23 Rx bisacodyl 10 mg rectal suppository 10 mg VT .PRN X 1 PRN Constipati on 08/20/23 Unknown Rx #1 ea buspirone 5 mg tablet 5 mg PO TID #1 TAB 08/20/23 Unknow n Rx citalopram 20 mg tablet 20 mg PO DAILY DEPRESSION #1 TAB 1 08/01/23 Rx loperamide 2 mg capsule 2 mg PO Q6H PRN PRN Diarrhea #1 ca p 08/20/23 Unknown Rx melatonin 3 mg tablet 3 mg PO QHS #1 TAB 08/20/23 Unknow n Rx metoprolol tartrate 25 mg tablet 12.5 mg (1/2 x 25 mg) PO BID #1 TA B 08/20/23 Unknown Rx Allergy/AdvReac Type Severity Reaction Status Date / Time codeine AdvReac CRAZY Verified 09/03/23 13:40 DREAMS" DOES NOT LIKE TO TAKE IT Family History Father , at 51 YOA due to PA CAD (coronary artery disease) Mother , she at 58 YOA following CABG CAD (coronary artery disease) Sister Hypertension Surgical History History of tubal ligation S/P right hemicolectomy Social History household members: none housing: apartment number of children: 2 current occupational status: retired Smoking Status: Never smoker alcohol intake: current alcohol intake frequency: other Alcohol type: wine details: She does not drink often and she has at most 1 glass of wine a day substance use type: does not use ROS ROS ED ROS Narrative Generalized weakness. Constitutional Constitutional ED: Denies chills or fever(s) Eyes Eyes: Denies blurry vision ENT ENT ED: Denies ear pain Cardiovascular Cardiovascular: Denies chest pain Respiratory/Chest Respiratory/Chest: Denies cough or dyspnea Gastrointestinal Gastrointestinal: Denies abdominal pain, constipation, diarrhea, melena, nausea or vomiting Genitourinary Genitourinary ED: Denies dysuria or hematuria Musculoskeletal Musculoskeletal: Denies arthralgias or back pain Integumentary Denies abscess or Abrasions Neurologic Neurologic: Denies headache(s) Psychiatric Psychiatric: Denies anxiety Endocrine Endocrinology: Denies cold intolerance Hematologic/Lymphati c Hematologic/Lymphati c: Reports none Allergic/Immunologic Allergic/Immunologic ED: Denies mouth swelling, tongue swelling or urticaria EXAM Physical Exam Narrative Exam (more content not included)... Normal [facility] Eosinophil percentageOrdered By: Shaji Rosales on 07-07-2025 Eosinophils/100 WBC (Bld) 1.5 % 0-5 [facility] Erythrocyte Sed Rateon 07-07 SED RATE 2 mm/hr Normal 0-30 [facility] Comment on above: Performed By: #### L 100.0100, L500.2500 #### [facility] Laboratory [address] [place], [place], [id number] Erythrocyte distribution wid th ratioOrdered By: Shaji Rosales on 07-07-2025 Erythrocyte distribution width (RBC) [Ratio] 13.4 % 11.6-14.6 [facility] Erythrocyte distribution wid th standard deviationOrdered By: Shaji Rosales on 07-07-2025 Erythrocyte distribution width (RBC) [Ratio] 44.1 fl High 35.1-43.9 [facility] Erythrocyte sedimentation ra teOrdered By: Davin Kirkland on 07-07-2025 ESR (Bld) [Velocity] 2 mm/h 0-30 [facility] Glomerular filtration rate ( GFR) estimation/1.73 sq m using serum, plasma, or whole bOrdered By: Shaji Rosales on 07-07-2025 GFR/1.73 sq M.predicted among non-blacks MDRD (S/P/Bld) [Vol rate/Area] 57 mL/min/{1.73_m2} Low >60 [facility] Comment on above: mL/min/1.73m2 CKD-EP I Creatinine Equation (2020) H AND P Exam - [place] 07-07-2025 H&P Exam - Hospitalist [facility] Medical Records Department [address] [place] [address] H P Exam - Hospitalist 07/07/25 1158 MR#: [id number] Acct: [id number] Name: PRASHANT SHEFFIELD Rep #: [id number] : 1950 75 From: Davin Kirkland MD PCP: Dr. Ez Solitario MD Status:ADM ROXIE Location: MS3 [id number] HPI - General General Date of Admission: 07/07/25 Date of Service: 07/07/25 Chief Complaint: Generalized weakness HPI Narrative PRASHANT SHEFFIELD, is a 75 F with past medical history significant for Parkinson's disease resident [facility] who was brought to the emergency department with generalized weakness. Per patient she recently had medication adjustment mainly for anxiety since then she has developed progressive generalized weakness. Patient also complains of muscle aches and difficulty with both handgrips. Workup in the ED came back unremarkable. Patient admitted to regular nursing floor for subsequent eval with consultation placed to PT/OT/SW [facility] Medical History Dysphagia History of 1 Parkinson disease Alcohol use Dyslipidemia Hypertension Anxiety and depression GERD without esophagitis Parkinsons disease Home Medications ???Medication ???Instructions ???Recorded ???Last Taken ???Type benztropine 2 mg tablet 1 mg PO BID PARKINSONS 07/20/16 08:10 History 1 mg simvastatin 20 mg tablet 20 mg PO QHS CHOLESTEROL 07/20/16 07/31/23 History aspirin 81 mg chewable tablet 81 mg PO DAILY HEART HEALTH 08/01/23 History omeprazole 40 mg capsule,delayed 40 mg PO DAILY ACID REFLUX 3 08/01/23 History release pramipexole 0.25 mg tablet 0.25 mg PO TID PAKINSONS 08/01/23 Unknown History rasagiline 1 mg tablet 1 mg PO DAILY PARKINSONS 08/01/23 08/01/23 History valsartan 160 mg tablet 160 mg PO DAILY BLOOD PRESSURE 08/01/23 History acetaminophen 500 mg tablet 1,000 mg (2 x 500 mg) PO Q8 PRN Unknown Rx pain #1 TAB alendronate 70 mg tablet 70 mg PO OLMOS osteoporosis #1 TAB 07/28/23 Rx bisacodyl 10 mg rectal suppository 10 mg VT .PRN X 1 PRN Constipati on 08/20/23 Unknown Rx #1 ea buspirone 5 mg tablet 5 mg PO TID #1 TAB 08/20/23 Unknow n Rx citalopram 20 mg tablet 20 mg PO DAILY DEPRESSION #1 TAB 1 08/01/23 Rx loperamide 2 mg capsule 2 mg PO Q6H PRN PRN Diarrhea #1 ca p 08/20/23 Unknown Rx melatonin 3 mg tablet 3 mg PO QHS #1 TAB 08/20/23 Unknow n Rx metoprolol tartrate 25 mg tablet 12.5 mg (1/2 x 25 mg) PO BID #1 TA B 08/20/23 Unknown Rx benztropine 1 mg tablet 1 mg PO BID 07/07/25 Unknown Histo ry estradiol 0.01% (0.1 mg/gram) 1 g vaginal .QMOTH 07/07/25 Unknow n History vaginal cream folic acid 1 mg tablet 1 mg PO DAILY 07/07/25 Unknown His tory rotigotine 2 mg/24 hour 1 patch topical QHS 07/07/25 Unkno wn History transdermal 24 hour patch (Neupro) Allergy/AdvReac Type Severity Reaction Status Date / Time codeine AdvReac CRAZY Verified 09/03/23 13:40 DREAMS" DOES NOT LIKE TO TAKE IT Family History Father , at 51 YOA due to PA CAD (coronary artery disease) Mother , she at 58 YOA following CABG CAD (coronary artery disease) Sister Hypertension Surgical History History of tubal ligation S/P right hemicolectomy Social History household members: none housing: apartment number of children: 2 current occupational status: retired Smoking Status: Never smoker alcohol intake: current alcohol intake frequency: other Alcohol type: wine details: She does not drink often and she has at most 1 glass of wine a day substance use type: does not use ROS ROS Narrative GENERAL: denies fever, chills, night sweats, weight loss, anorexia HEENT: denies headache, sinus congestion, or drainage, dysphagia RESPIRATORY: denies cough, sputum production, shortness of breath, dyspnea on exertion CARDIAC: denies chest pain, palpitations, orthopnea, PND GASTROINTESTINAL: denies abdominal pain, nausea, vomiting, melena, GENITOURINARY: denies dysuria, urgency, frequency, heamaturia EXTREMITY: denies swelling MUSCULOSKELETAL: Muscle aches NEUROLOGIC: denies focal numbness, weakness, tingling HEMATOLOGIC: denies easy bruising and/or hemorrhage INTEGUMENT: denies rashes PSYCHIATRIC: denies suicidal or homicidal ideation Vital Signs Vital Signs Vital Signs: 07/07/25 09:30 07/07/25 09:34 07/07/25 09:34 Temperature 97.7 F L Temperature Source Oral Pulse Rate 88 Respiratory Rate 18 Respiratory Pattern Normal Blood Pressure 174/84 H Blood (more content not included)... Normal [facility] Hematocrit Auto (Bld) [Volum e fraction]Ordered By: Shaji Rosales on 07-07-2025 Hematocrit (Bld) [Volume fraction] 34.7 % Low 37-47 [facility] Hemoglobin measurementOrdere d By: Shaji Rosales on 07-07-2025 Hemoglobin (Bld) [Mass/Vol] 11.1 g/dL Low 12.0-15.0 [facility] Immature granulocytes/100 WB C Auto (Bld)Ordered By: Shaji Rosales on 07-07-2025 Immature granulocytes/100 WBC (Bld) 0.400 % 0.0-0.9 [facility] Comment on above: IG% - Immature Granu locytes (promyelocytes, myelocytes and metamyelocytes) > 1% indicates that a LEFT SHIFT is Present. Ketones Test strip Ql (U)Ord ered By: Shaji Rosales on 07-07-2025 Ketones Ql (U) Negative Negative [facility] MCV (mean corpuscular volume ) determinationOrdered By: Shaji Rosales on 07-07-2025 MCV (RBC) [Entitic vol] 90.1 fL 81-99 [facility] Mean corpuscular hemoglobin (MCH) determinationOrdered By: Shaji Rosales on 07-07-2025 MCH (RBC) [Entitic mass] 28.8 pg 27.0-32.0 [facility] Mean corpuscular hemoglobin concentration (MCHC) determinationOrdered By: Shaji Rosales on 07-07-2025 MCHC (RBC) [Mass/Vol] 32.0 g/dL 32-36 [facility] Mean platelet volume determi nationOrdered By: Shaji Rosales on 07-07-2025 Platelet mean volume (Bld) [Entitic vol] 10.7 fL 6.2-12.0 [facility] Microscopic analysis of urin e for red blood cells (RBC)Ordered By: Shaji Rosales on 07-07-2025 Microscopic analysis of urine for red blood cells (RBC) 0 SEEN /hpf 0-5 [facility] Monocyte percentageOrdered B y: Shaji Rosales on 07-07-2025 Monocytes/100 WBC (Bld) 8.3 % 0-10 [facility] Mucus LM Ql (Urine sed)Order ed By: Shaji Rosales on 07-07-2025 Mucus Ql (Urine sed) 0 SEEN /hpf [facility] Neutrophil percentageOrdered By: Shaji Rosales on 07-07-2025 Neutrophils/100 WBC (Bld) 66.1 % 47-70 [facility] Nitrite Test strip Ql (U)Ord ered By: Shaji Rosales on 07-07-2025 Nitrite Ql (U) Negative Negative [facility] Nucleated red blood cell per centageOrdered By: Shaji Rosales on 07-07-2025 Nucleated RBC/100 WBC (Bld) [Ratio] 0 % 0-5 [facility] Platelet countOrdered By: Dimitri Rosales on 07-07-2025 Platelets (Bld) [#/Vol] 239 10*3/uL 150-450 [facility] Potassium measurement (mass/ volume)Ordered By: Shaji Rosales on 07-07-2025 Potassium (Unsp spec) [Mass/Vol] 4.2 mmol/L 3.3-5.1 [facility] Protein Test strip Ql (U)Ord ered By: Shaji Rosales on 07-07-2025 Protein Ql (U) 30 mg/dl High Negative [facility] RBC Auto (Bld) [#/Vol]Ordere d By: Shaji Rosales on 07-07-2025 RBC (Bld) [#/Vol] 3.85 10*6/uL Low 4.2-5.4 [facility] Serum creatinine measurement (mass/volume)Ordered By: Shaji Rosales on 07-07-2025 Creatinine [Mass/Vol] 1.03 mg/dL 0.70-1.20 [facility] Serum glucose measurement (m ass/volume)Ordered By: Shaji Rosales on 07-07-2025 Glucose [Mass/Vol] 112 mg/dL High 70-[address] [facility] Serum or plasma C reactive p rotein measurement (mass/volume)Ordered By: Davin Kirkland on 07-07-2025 CRP [Mass/Vol] mg/L 0.0-3.0 [facility] Serum or plasma calcium carlos urement (mass/volume)Ordered By: Shaji Rosales on 07-07-2025 Calcium [Mass/Vol] 9.7 mg/dL 7.6-11.[address] [facility] Serum or plasma creatine kin ase activityOrdered By: Davin Kirkland on 07-07-2025 CK [Catalytic activity/Vol] 58 U/L 24-195 [facility] Serum or plasma urea nitroge n measurement (mass/volume)Ordered By: Shaji Rosales on 07-07-2025 Urea nitrogen [Mass/Vol] 20 mg/dL High 4-19 [facility] Sodium levelOrdered By: Shaji Rosales on 07-07-2025 Sodium [Moles/Vol] 135 mmol/L 133-[address] [facility] Squamous epithelial cells de tection in urine sediment by light microscopyOrdered By: Shaji Rosales on 07-07-2025 Epithelial cells.squamous LM Ql (Urine sed) 0 SEEN /hpf - [facility] Urinalysis, Completeon 07-07 BACTERIA 0 SEEN Normal None Seen [facility] Comment on above: Order Comment: CLEAN CATCH Performed By: #### L 400.0001 #### [facility] Laboratory [address] [place], [place], [phone] EPI,SQUAMOUS 0 SEEN Normal - [facility] Comment on above: Order Comment: CLEAN CATCH Performed By: #### L 400.0001 #### [facility] Laboratory [address] [place], [address] Mucus Ql (Urine sed) 0 SEEN Normal [facility] Comment on above: Order Comment: CLEAN CATCH Performed By: #### L 400.0001 #### [facility] Laboratory [address] [place], [address] RBC 0 SEEN Normal 0-5 [facility] Comment on above: Order Comment: CLEAN CATCH Performed By: #### L 400.0001 #### [facility] Laboratory [address] [place], [place], [phone] WBC 0 SEEN Normal 0-5 [facility] Comment on above: Order Comment: CLEAN CATCH Performed By: #### L 400.0001 #### [facility] Laboratory [address] [place], [place], [phone] Urine clarityOrdered By: Kalin Rosales on 07-07-2025 Clarity (U) Clear Clear [facility] Urine color determinationOrd ered By: Shaji Rosales on 07-07-2025 Color (U) Yellow Yellow [facility] Urine glucose detectionOrder ed By: Shaji Rosales on 07-07-2025 Glucose Ql (U) Normal mg/dl Normal [facility] Urine leukocyte esterase det ection by dipstickOrdered By: Shaji Rosales on 07-07-2025 Leukocyte esterase Test strip Ql (U) Negative Negative [facility] Urine pHOrdered By: Shaji beal on 07-07-2025 pH (U) 6.0 [pH] 5.0 - 8.0 [facility] Urine sediment bacteria coun t by microscopy (number/high power field)Ordered By: Shaji Rosales on 07-07-2025 Bacteria LM.HPF (Urine sed) [#/Area] 0 /[HPF] None Seen [facility] Urine specific gravity measu rementOrdered By: Shaji Rosales on 07-07-2025 Specific gravity (U) [Rel density] 1.010 1.002-1.030 [facility] Urine urobilinogen measureme ntOrdered By: Shaji Rosales on 07-07-2025 Urobilinogen Ql (U) Normal mg/dl Normal [facility] White blood cell (WBC) count Ordered By: Shaji Rosales on 07-07-2025 WBC (Bld) [#/Vol] 5.3 10*3/uL 4.4-11.[address] [facility] White blood cell countOrdere d By: Shaji Rosales on 07-07-2025 White blood cell count 0 SEEN /hpf 0-5 [facility] D/C Summary- SPon 03-10-2025 D/C Summary- SP [facility] Speech Pathology [facility] 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 Pt attended initial evaluation and 8 follow up appointments to discuss oropharyngeal and oral motor exercises based on results from her MBSS on 12/11/24, modified LSVT to improve vocal intensity, along with implementing speech intelligibility strategies to complete as a home program. Pt is being d/c from OP speech therapy on this date d/t meeting goals associated with her POC. Thank you for allowing me to participate the care of your Pt. Will reevaluate at Pt???s request following script from physician and Pt???s participation in his home exercise program and follow-up MBSS. 03/10/25 1134 CC: Dr. Ez Solitario MD; LIDYA Sandhu RE Signed Normal [facility] CNOVon 03-08-2025 CNOV Office Visit (FAMPWS) PRASHANT SHEFFIELD ([id number]) 1950 F Date Time Provider Department 03/08/25 2:00 PM PODLOGARMARY During your visit today, we recorded the following information about you: Pulse Respiration Blood pressure Weight 57/minute 16/minute 118/68 64 kg Podlogar, MAURY Hernandez 03/09/2025 12:22 PM Signed 03/08/2025 Patient presents with: discoloration to skin : Right leg x3 months SUBJECTIVE: This is a 75 year old, accompanied by sister, that is here today for Above Complaints. Hit her right lower leg about three montha ago. Patient concerned since she still has some brown discoloration of area. Has been putting lanolin cream on daily. Denies any pain, itching, drainage, excessive warmth or erythema PAST MEDICAL HISTORY Diagnosis Date Alcohol use 02/07/2016 1-2 drinks a day. 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, mild, with anxiety ([facility]) 07/08/2024 Dry mouth 03/26/2016 Elevated hemoglobin A1c 12/01/2018 Essential hypertension 02/07/2016 Family history of colon cancer paternal grandmother Fibroid uterus 02/07/2016 Had one and never needed surgery Frequent falls 07/20/2021 Patient declines Physical Therapy as of 07/20/2021 GERD without esophagitis 02/07/2016 Hypertensive heart and chronic kidney disease with heart failure and stage 1 through stage 4 chronic kidney disease, or unspecified chronic kidney disease (HCC) 12/26/2023 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 Mixed hyperlipidemia 02/07/2016 Mobility impaired 07/25/2023 Osteopenia, senile 12/15/2019 DXA: 11/2019 Parkinson's disease (HCC) 02/07/[address] 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 Neuro feels may be anxiety related. No recurrence since (last episode was 06/2015) ALLERGIES Betadine [Povidone-Iodine], Buspar [Buspirone], and Codeine MEDICATIONS Current Outpatient Medications Medication Sig pramipexole (MIRAPEX) 0.5 mg tablet Take 1 tablet by mouth two times a day. Per Neuro alendronate (FOSAMAX) 70 mg tablet Take 1 tablet by mouth one time a week. Take with a full glass of water, on an empty stomach; do NOT lie down for 30minutes. simvastatin (ZOCOR) 20 mg tablet Take 1 tablet by mouth daily at bedtime. valsartan (DIOVAN) 160 mg tablet Take 1 tablet by mouth once daily. oedacjv-jrmmpkmvo-oy tamin D3 (CALCIUM 500+D) 500 mg-5 mcg (200 unit) per tablet Take 1 tablet by mouth once daily. omeprazole (PRILOSEC) 40 mg capsule Take 1 capsule by mouth once daily. folic acid 1 mg tablet Take 1 tablet by mouth once daily. Cholecalciferol, Vitamin D3, 25 mcg (1,000 unit) cap Take 1 capsule by mouth once daily. diphenhydrAMINE (BENADRYL) 25 mg capsule Take 25 mg by mouth once daily. 2 tablets 25 mg AM and 2 tablets 25 mg PM ferrous sulfate (SLOW FE) 137 mg (45 mg iron) TbER Take 1 tablet by mouth every other day. ascorbic acid, vitamin C, (VITAMIN C) 500 mg tablet Take 1 tablet by mouth every other day. benztropine (COGENTIN) 2 mg tablet Take 0.5 tablets by mouth two times a day. Per Neurology at [facility] Melatonin 5 mg cap Take 2 capsules by mouth daily at bedtime. cyanocobalamin (VITAMIN B-12) 1,000 mcg tab Take 1 tablet by mouth once daily. citalopram hydrobromide (CELEXA) 10 mg tablet Take 1 tablet by mouth once daily. Take with 20 mg dose for total of 30mg daily, getting from Neurology at [facility] citalopram (CELEXA) 20 mg tablet Take 1 tablet by mouth daily at bedtime. Take with 10mg dose for total of 30mg daily. Per neurology at [facility] estradiol (ESTRACE) 0.01 % (0.1 mg/gram) vaginal cream Use 1 g vaginally twice a week. aspirin, enteric coated (ADULT LOW DOSE ASPIRIN) 81 mg EC tablet Take 1 tablet by mouth once daily. No current facility-administere d medications for this visit. Medications and allergies reviewed by this provider. SOCIAL HISTORY Social History Tobacco Use Smoking status: Never Smokeless tobacco: Never Vaping Use Vaping status: Never Used Substance Use Topics Alcohol use: Yes Comment: approximately 1-2 beers/wine daily Drug use: No REVIEW OF SYSTEMS All other reviewed and negative other than HPI. OBJECTIVE: BP 118/68 Pulse (!) 57 Resp 16 Wt 64 kg (141 lb 3.2 oz) SpO2 98% BMI 26.83 kg/m? . Vital signs reviewed by this provider. APPEARANCE Well appearing, al (more content not included)... Normal [facility] BD DXA - AXIAL SKELETONon BD DXA - AXIAL SKELETON * * *Final Repor t* * * DATE OF EXAM: Feb 22 2025 12:59PM BLAS [id number] - BD DXA - AXIAL SKELETON / PROCEDURE REASON: Asymptomatic menopause * * * * Physician Interpretation * * * * EXAMINATION: DXA BONE DENSITOMETRY BD DXA - AXIAL SKELETON, BD DXA TRABECLR BONE SCORE (TBS) PATIENT DEMOGRAPHICS: Age: 74 years, Gender: Female SCANNER INFORMATION: DXA Model: [employer] - Spine[employer] Discovery C 32488 Date Scanned: 02/22/2025 12:59 PM CLINICAL HISTORY: DIAGNOSTIC Asymptomatic menopause . RISK FACTORS FOR OSTEOPOROSIS AND ASSOCIATED FRACTURES REPORTED BY THIS PATIENT: Please refer to Bone Health Questionnaire in the EMR CURRENT THERAPY: Please refer to Bone Health Questionnaire in the EMR TECHNICAL LIMITATIONS: None RESULTS: Lumbar spine (L1, L2, L3, L4): 0.969 g/cm2, T-score -0.7, Z-score 1.6 Lumbar spine: 2021: 0.915 g/cm2 Statistically significant increase Right Femoral Neck: 0.646 g/cm2, T-score -1.8, Z-score 0.2 Right Femoral Neck: 2021: 0.636 g/cm2 No statistically significant change Right Total Hip: 0.812 g/cm2, T-score -1.1, Z-score 0.7 Right Total Hip: 2021: 0.812 g/cm2 No statistically significant change Left Femoral Neck: 0.649 g/cm2, T-score -1.8, Z-score 0.2 Left Femoral Neck: 2021: 0.622 g/cm2 No statistically significant change Left Total Hip: 0.828 g/cm2, T-score -0.9, Z-score 0.8 Left Total Hip: 2021: 0.806 g/cm2 No statistically significant change CHANGE IS STATISTICALLY SIGNIFICANT IN THE SPINE OR HIP IF GREATER THAN OR EQUAL TO 0.04 g/cm2 VERTEBRAL FRACTURE ASSESSMENT Not performed. TRABECULAR BONE ASSESSMENT TBS score: 1.343 Bone micro-architecture: Normal (> 1.310) IMPRESSION: THE LOWEST T-SCORE IS -1.8 IN THE RIGHT AND LEFT HIPS 1) DIAGNOSIS (based on BMD alone): OSTEOPENIA Caution: Medical conditions other than osteoporosis may cause low bone density, such as osteomalacia or renal osteodystrophy. Clinical correlation is necessary. 2) FRACTURE RISK (Based on TBS adjusted FRAX): 10-year absolute fracture risk: - major osteoporotic fracture = 11 % - hip fracture = 2.6 % - A diagnosis of Osteoporosis, a 10 year probability of hip fracture greater than or equal to 3% or a 10 year probability of any major osteoporosis-related fracture greater than or equal to 20% should be considered for treatment. - DXA scanner generated FRAX calculations may slightly differ from online FRAX calculations due to differences in software versions. - All recommendations and calculations are to be considered as guidelines and should not replace sound clinical judgement - Caution: Fracture risk may be increased independent of BMD in patients with corticosteroid use, age greater than 65 years, or a history of prior fragility fracture. RECOMMENDATIONS: Follow-up in 2 years or as clinically indicated. Patients that are taking corticosteroids, are transplant recipients or have hyperparathyroidism should have annual follow-up. Follow-up scans should always be done on the same machine for accurate comparison. FOR MORE INFORMATION ABOUT DIAGNOSIS AND TREATMENT: [facility] Osteoporosis and Metabolic Bone Disease:? www.ccf.org/arthriti s/osteo National Osteoporosis Foundation:? www.nof.org International Society of Clinical Densitometry www.iscd.org Tamper Operator: OG Transcribe Date/Time: Feb 22 2025 1:13P Dictated by : AUSTYN FOUNTAIN MD This examination was interpreted and the report reviewed and electronically signed by: AUSTYN FOUNTAIN MD on Feb 22 2025 1:40PM EST [id number] CN -1.8 Normal [facility] BD DXA TRABECLR BONE SCORE ( TBS)on 02-22-2025 BD DXA TRABECLR BONE SCORE (TBS) * * *Final Report* * * DATE OF EXAM: Feb 22 2025 12:59PM BLAS [id number] - BD DXA TRABECLR BONE SCORE (TBS) / PROCEDURE REASON: Asymptomatic menopause * * * * Physician Interpretation * * * * EXAMINATION: DXA BONE DENSITOMETRY BD DXA - AXIAL SKELETON, BD DXA TRABECLR BONE SCORE (TBS) PATIENT DEMOGRAPHICS: Age: 74 years, Gender: Female SCANNER INFORMATION: DXA Model: NextDigest - TreeRing C [id number] Date Scanned: 02/22/2025 12:59 PM CLINICAL HISTORY: DIAGNOSTIC Asymptomatic menopause . RISK FACTORS FOR OSTEOPOROSIS AND ASSOCIATED FRACTURES REPORTED BY THIS PATIENT: Please refer to Bone Health Questionnaire in the EMR CURRENT THERAPY: Please refer to Bone Health Questionnaire in the EMR TECHNICAL LIMITATIONS: None RESULTS: Lumbar spine (L1, L2, L3, L4): 0.969 g/cm2, T-score -0.7, Z-score 1.6 Lumbar spine: 2021: 0.915 g/cm2 Statistically significant increase Right Femoral Neck: 0.646 g/cm2, T-score -1.8, Z-score 0.2 Right Femoral Neck: 2021: 0.636 g/cm2 No statistically significant change Right Total Hip: 0.812 g/cm2, T-score -1.1, Z-score 0.7 Right Total Hip: 2021: 0.812 g/cm2 No statistically significant change Left Femoral Neck: 0.649 g/cm2, T-score -1.8, Z-score 0.2 Left Femoral Neck: 2021: 0.622 g/cm2 No statistically significant change Left Total Hip: 0.828 g/cm2, T-score -0.9, Z-score 0.8 Left Total Hip: 2021: 0.806 g/cm2 No statistically significant change CHANGE IS STATISTICALLY SIGNIFICANT IN THE SPINE OR HIP IF GREATER THAN OR EQUAL TO 0.04 g/cm2 VERTEBRAL FRACTURE ASSESSMENT Not performed. TRABECULAR BONE ASSESSMENT TBS score: 1.343 Bone micro-architecture: Normal (> 1.310) IMPRESSION: THE LOWEST T-SCORE IS -1.8 IN THE RIGHT AND LEFT HIPS 1) DIAGNOSIS (based on BMD alone): OSTEOPENIA Caution: Medical conditions other than osteoporosis may cause low bone density, such as osteomalacia or renal osteodystrophy. Clinical correlation is necessary. 2) FRACTURE RISK (Based on TBS adjusted FRAX): 10-year absolute fracture risk: - major osteoporotic fracture = 11 % - hip fracture = 2.6 % - A diagnosis of Osteoporosis, a 10 year probability of hip fracture greater than or equal to 3% or a 10 year probability of any major osteoporosis-related fracture greater than or equal to 20% should be considered for treatment. - DXA scanner generated FRAX calculations may slightly differ from online FRAX calculations due to differences in software versions. - All recommendations and calculations are to be considered as guidelines and should not replace sound clinical judgement - Caution: Fracture risk may be increased independent of BMD in patients with corticosteroid use, age greater than 65 years, or a history of prior fragility fracture. RECOMMENDATIONS: Follow-up in 2 years or as clinically indicated. Patients that are taking corticosteroids, are transplant recipients or have hyperparathyroidism should have annual follow-up. Follow-up scans should always be done on the same machine for accurate comparison. FOR MORE INFORMATION ABOUT DIAGNOSIS AND TREATMENT: [facility]oporosis and Metabolic Bone Disease:? [email or web address] [email or web address] National Osteoporosis Foundation:? www.nof.org International Society of Clinical Densitometry www.iscd.org Tamper Operator: OG Transcribe Date/Time: Feb 22 2025 1:13P Dictated by : AUSTYN FOUNTAIN MD This examination was interpreted and the report reviewed and electronically signed by: AUSTYN FOUNTAIN MD on Feb 22 2025 1:40PM EST [id number] CN -1.8 Normal [facility] DXA Femur [T-score] Bone javier gasca 02-22-2025 * * *Final Report* * * DATE OF EXAM: Feb 22 2025 12:59PM WRB [id number] - BD DXA TRABECLR BONE SCORE (TBS) / PROCEDURE REASON: Asymptomatic menopause * * * * Physician Interpretation * * * * EXAMINATION: DXA BONE DENSITOMETRY BD DXA - AXIAL SKELETON, BD DXA TRABECLR BONE SCORE (TBS) PATIENT DEMOGRAPHICS: Age: 74 years, Gender: Female SCANNER INFORMATION: DXA Model: NextDigest - TreeRing C [id number] Date Scanned: 02/22/2025 12:59 PM CLINICAL HISTORY: DIAGNOSTIC Asymptomatic menopause . RISK FACTORS FOR OSTEOPOROSIS AND ASSOCIATED FRACTURES REPORTED BY THIS PATIENT: Please refer to Bone Health Questionnaire in the EMR CURRENT THERAPY: Please refer to Bone Health Questionnaire in the EMR TECHNICAL LIMITATIONS: None RESULTS: Lumbar spine (L1, L2, L3, L4): 0.969 g/cm2, T-score -0.7, Z-score 1.6 Lumbar spine: 2021: 0.915 g/cm2 Statistically significant increase Right Femoral Neck: 0.646 g/cm2, T-score -1.8, Z-score 0.2 Right Femoral Neck: 2021: 0.636 g/cm2 No statistically significant change Right Total Hip: 0.812 g/cm2, T-score -1.1, Z-score 0.7 Right Total Hip: 2021: 0.812 g/cm2 No statistically significant change Left Femoral Neck: 0.649 g/cm2, T-score -1.8, Z-score 0.2 Left Femoral Neck: 2021: 0.622 g/cm2 No statistically significant change Left Total Hip: 0.828 g/cm2, T-score -0.9, Z-score 0.8 Left Total Hip: 2021: 0.806 g/cm2 No statistically significant change CHANGE IS STATISTICALLY SIGNIFICANT IN THE SPINE OR HIP IF GREATER THAN OR EQUAL TO 0.04 g/cm2 VERTEBRAL FRACTURE ASSESSMENT Not performed. TRABECULAR BONE ASSESSMENT TBS score: 1.343 Bone micro-architecture: Normal (> 1.310) DIVISION OF RADIOLOGY Provider, [facility] [place] - 02/22/2025 * * *Final Report* * * DATE OF EXAM: Feb 22 2025 12:59PM [facility] 0801 - BD DXA TRABECLR BONE SCORE (TBS) / PROCEDURE REASON: Asymptomatic menopause * * * * Physician Interpretation * * * * EXAMINATION: DXA BONE DENSITOMETRY BD DXA - AXIAL SKELETON, BD DXA TRABECLR BONE SCORE (TBS) PATIENT DEMOGRAPHICS: Age: 74 years, Gender: Female SCANNER INFORMATION: DXA Model: NextDigest - TreeRing C [id number] Date Scanned: 02/22/2025 12:59 PM CLINICAL HISTORY: DIAGNOSTIC Asymptomatic menopause . RISK FACTORS FOR OSTEOPOROSIS AND ASSOCIATED FRACTURES REPORTED BY THIS PATIENT: Please refer to Bone Health Questionnaire in the EMR CURRENT THERAPY: Please refer to Bone Health Questionnaire in the EMR TECHNICAL LIMITATIONS: None RESULTS: Lumbar spine (L1, L2, L3, L4): 0.969 g/cm2, T-score -0.7, Z-score 1.6 Lumbar spine: 2021: 0.915 g/cm2 Statistically significant increase Right Femoral Neck: 0.646 g/cm2, T-score -1.8, Z-score 0.2 Right Femoral Neck: 2021: 0.636 g/cm2 No statistically significant change Right Total Hip: 0.812 g/cm2, T-score -1.1, Z-score 0.7 Right Total Hip: 2021: 0.812 g/cm2 No statistically significant change Left Femoral Neck: 0.649 g/cm2, T-score -1.8, Z-score 0.2 Left Femoral Neck: 2021: 0.622 g/cm2 No statistically significant change Left Total Hip: 0.828 g/cm2, T-score -0.9, Z-score 0.8 Left Total Hip: 2021: 0.806 g/cm2 No statistically significant change CHANGE IS STATISTICALLY SIGNIFICANT IN THE SPINE OR HIP IF GREATER THAN OR EQUAL TO 0.04 g/cm2 VERTEBRAL FRACTURE ASSESSMENT Not performed. TRABECULAR BONE ASSESSMENT TBS score: 1.343 Bone micro-architecture: Normal (> 1.310) IMPRESSION IMPRESSION: THE LOWEST T-SCORE IS -1.8 IN THE RIGHT AND LEFT HIPS 1) DIAGNOSIS (based on BMD alone): OSTEOPENIA Caution: Medical conditions other than osteoporosis may cause low bone density, such as osteomalacia or renal osteodystrophy. Clinical correlation is necessary. 2) FRACTURE RISK (Based on TBS adjusted FRAX): 10-year absolute fracture risk: - major osteoporotic fracture = 11 % - hip fracture = 2.6 % - A diagnosis of Osteoporosis, a 10 year probability of hip fracture greater than or equal to 3% or a 10 year probability of any major osteoporosis-related fracture greater than or equal to 20% should be considered for treatment. - DXA scanner generated FRAX calculations may slightly differ from online FRAX calculations due to differences in software versions. - All recommendations and calculations are to be considered as guidelines and should not replace sound clinical judgement - Caution: Fracture risk may be increased independent of BMD in patients with corticosteroid use, age greater than 65 years, or a history of prior fragility fracture. RECOMMENDATIONS: Follow-up in 2 years or as clinically indicated. Patients that are taking corticosteroids, are transplant recipients or have hyperparathyroidism should have annual follow-up. Follow-up scans should always be done on the same machine for accurate comparison. FOR MORE INFORMATION ABOUT DIAGNOSIS AND TREATMENT: [facility] Osteoporosis and Metabolic Bone Disease:? [email or web address] National Osteoporosis Foundation:? www.nof.org International Society of Clinical Densitometry www.iscd.org Tamper Operator: OG Transcribe Date/Time: Feb 22 2025 1:13P Dictated by : AUSTYN FOUNTAIN MD This examination was interpreted and the report reviewed and electronically signed by: AUSTYN FOUNTAIN MD on Feb 22 2025 1:40PM EST [facility] DXA Skeletal system.axial Vi ews for bone densityon 02-22-2025 * * *Final Report* * * DATE OF EXAM: Feb 22 2025 12:59PM WR 0804 - BD DXA - AXIAL SKELETON / PROCEDURE REASON: Asymptomatic menopause * * * * Physician Interpretation * * * * EXAMINATION: DXA BONE DENSITOMETRY BD DXA - AXIAL SKELETON, BD DXA TRABECLR BONE SCORE (TBS) PATIENT DEMOGRAPHICS: Age: 74 years, Gender: Female SCANNER INFORMATION: DXA Model: NextDigest - TreeRing C [id number] Date Scanned: 02/22/2025 12:59 PM CLINICAL HISTORY: DIAGNOSTIC Asymptomatic menopause . RISK FACTORS FOR OSTEOPOROSIS AND ASSOCIATED FRACTURES REPORTED BY THIS PATIENT: Please refer to Bone Health Questionnaire in the EMR CURRENT THERAPY: Please refer to Bone Health Questionnaire in the EMR TECHNICAL LIMITATIONS: None RESULTS: Lumbar spine (L1, L2, L3, L4): 0.969 g/cm2, T-score -0.7, Z-score 1.6 Lumbar spine: 2021: 0.915 g/cm2 Statistically significant increase Right Femoral Neck: 0.646 g/cm2, T-score -1.8, Z-score 0.2 Right Femoral Neck: 2021: 0.636 g/cm2 No statistically significant change Right Total Hip: 0.812 g/cm2, T-score -1.1, Z-score 0.7 Right Total Hip: 2021: 0.812 g/cm2 No statistically significant change Left Femoral Neck: 0.649 g/cm2, T-score -1.8, Z-score 0.2 Left Femoral Neck: 2021: 0.622 g/cm2 No statistically significant change Left Total Hip: 0.828 g/cm2, T-score -0.9, Z-score 0.8 Left Total Hip: 2021: 0.806 g/cm2 No statistically significant change CHANGE IS STATISTICALLY SIGNIFICANT IN THE SPINE OR HIP IF GREATER THAN OR EQUAL TO 0.04 g/cm2 VERTEBRAL FRACTURE ASSESSMENT Not performed. TRABECULAR BONE ASSESSMENT TBS score: 1.343 Bone micro-architecture: Normal (> 1.310) DIVISION OF RADIOLOGY Provider, [facility] [place] - 02/22/2025 * * *Final Report* * * DATE OF EXAM: Feb 22 2025 12:59PM BLAS 0804 - BD DXA - AXIAL SKELETON / PROCEDURE REASON: Asymptomatic menopause * * * * Physician Interpretation * * * * EXAMINATION: DXA BONE DENSITOMETRY BD DXA - AXIAL SKELETON, BD DXA TRABECLR BONE SCORE (TBS) PATIENT DEMOGRAPHICS: Age: 74 years, Gender: Female SCANNER INFORMATION: DXA Model: NextDigest - TreeRing C [id number] Date Scanned: 02/22/2025 12:59 PM CLINICAL HISTORY: DIAGNOSTIC Asymptomatic menopause . RISK FACTORS FOR OSTEOPOROSIS AND ASSOCIATED FRACTURES REPORTED BY THIS PATIENT: Please refer to Bone Health Questionnaire in the EMR CURRENT THERAPY: Please refer to Bone Health Questionnaire in the EMR TECHNICAL LIMITATIONS: None RESULTS: Lumbar spine (L1, L2, L3, L4): 0.969 g/cm2, T-score -0.7, Z-score 1.6 Lumbar spine: 2021: 0.915 g/cm2 Statistically significant increase Right Femoral Neck: 0.646 g/cm2, T-score -1.8, Z-score 0.2 Right Femoral Neck: 2021: 0.636 g/cm2 No statistically significant change Right Total Hip: 0.812 g/cm2, T-score -1.1, Z-score 0.7 Right Total Hip: 2021: 0.812 g/cm2 No statistically significant change Left Femoral Neck: 0.649 g/cm2, T-score -1.8, Z-score 0.2 Left Femoral Neck: 2021: 0.622 g/cm2 No statistically significant change Left Total Hip: 0.828 g/cm2, T-score -0.9, Z-score 0.8 Left Total Hip: 2021: 0.806 g/cm2 No statistically significant change CHANGE IS STATISTICALLY SIGNIFICANT IN THE SPINE OR HIP IF GREATER THAN OR EQUAL TO 0.04 g/cm2 VERTEBRAL FRACTURE ASSESSMENT Not performed. TRABECULAR BONE ASSESSMENT TBS score: 1.343 Bone micro-architecture: Normal (> 1.310) IMPRESSION IMPRESSION: THE LOWEST T-SCORE IS -1.8 IN THE RIGHT AND LEFT HIPS 1) DIAGNOSIS (based on BMD alone): OSTEOPENIA Caution: Medical conditions other than osteoporosis may cause low bone density, such as osteomalacia or renal osteodystrophy. Clinical correlation is necessary. 2) FRACTURE RISK (Based on TBS adjusted FRAX): 10-year absolute fracture risk: - major osteoporotic fracture = 11 % - hip fracture = 2.6 % - A diagnosis of Osteoporosis, a 10 year probability of hip fracture greater than or equal to 3% or a 10 year probability of any major osteoporosis-related fracture greater than or equal to 20% should be considered for treatment. - DXA scanner generated FRAX calculations may slightly differ from online FRAX calculations due to differences in software versions. - All recommendations and calculations are to be considered as guidelines and should not replace sound clinical judgement - Caution: Fracture risk may be increased independent of BMD in patients with corticosteroid use, age greater than 65 years, or a history of prior fragility fracture. RECOMMENDATIONS: Follow-up in 2 years or as clinically indicated. Patients that are taking corticosteroids, are transplant recipients or have hyperparathyroidism should have annual follow-up. Follow-up scans should always be done on the same machine for accurate comparison. FOR MORE INFORMATION ABOUT DIAGNOSIS AND TREATMENT: [facility] Osteoporosis and Metabolic Bone Disease:? [email or web address] National Osteoporosis Foundation:? www.nof.org International Society of Clinical Densitometry www.iscd.org Tamper Operator: OG Transcribe Date/Time: Feb 22 2025 1:13P Dictated by : AUSTYN FOUNTAIN MD This examination was interpreted and the report reviewed and electronically signed by: AUSTYN FOUNTAIN MD on Feb 22 2025 1:40PM EST [facility] SONIA SCREENING W [place] 02-22 SONIA SCREENING W GERMAN * * *Final Report* * * DATE OF EXAM: Feb 22 2025 1:36PM W [id number] - SONIA SCREENING W GERMAN / PROCEDURE REASON: Encounter for screening mammogram for breast cancer * * * * Physician Interpretation * * * * RESULT: [facility] [address] [place] [address] #[id number] - SONIA SCREENING W GERMAN HISTORY: 74 year-old patient seen for screening. Patient is asymptomatic in both breasts. Patient states no personal history of breast cancer. COMPARISON STUDIES: The present examination has been compared to prior imaging studies dated 02/07/2017 (mammogram), 02/20/2018 (mammogram), 02/23/2019 (mammogram) and 11/04/2020 (mammogram). MAMMOGRAM TECHNIQUE: The study was acquired using full field digital technology and interpreted from soft copy. Digital Breast Tomosynthesis (DBT) images were obtained and used to assist in the interpretation of this examination. MAMMOGRAM FINDINGS: The breasts are heterogeneously dense, which may obscure small masses. No suspicious masses, calcifications or other abnormalities are seen in either breast. There are no significant interval changes. IMPRESSION: There is no mammographic evidence of malignancy in either breast. Routine screening mammogram is recommended. Annual mammogram will be due in 1 year. BI-RADS Category 1: Negative RISK: Based on the Tyrer-Cuzick (TC) risk assessment model, this patient has a 2.3% lifetime risk of developing breast cancer, meaning they are at average risk for developing breast cancer. However, this is only an estimate based on available history provided on the patient's questionnaire. We encourage all patients to talk with their providers about these results, further recommendations for managing breast health, and appropriate supplemental screening options if the patient has dense breast tissue. Interpreting Radiologist: Ishaan Bruner M.D. Electronically signed on: 02/25/2025 Tamper Operator: MEHDI Transcribe Date/Time: Feb 22 2025 12:56P Dictated by: ISHAAN BRUNER MD This examination was interpreted and the report reviewed and electronically signed by: ISHAAN BRUNER MD on Feb 25 2025 10:49PM EST [id number] CN Normal [facility] No Panel InformationOrdered By: [facility] Provider on 02-22-2025 LOWEST T-SCORE -1.8 [facility] No Panel Informationon 02-22 IMPRESSION: THE LOWEST T-SCORE IS -1.8 IN THE RIGHT AND LEFT HIPS 1) DIAGNOSIS (based on BMD alone): OSTEOPENIA Caution: Medical conditions other than osteoporosis may cause low bone density, such as osteomalacia or renal osteodystrophy. Clinical correlation is necessary. 2) FRACTURE RISK (Based on TBS adjusted FRAX): 10-year absolute fracture risk: - major osteoporotic fracture = 11 % - hip fracture = 2.6 % - A diagnosis of Osteoporosis, a 10 year probability of hip fracture greater than or equal to 3% or a 10 year probability of any major osteoporosis-related fracture greater than or equal to 20% should be considered for treatment. - DXA scanner generated FRAX calculations may slightly differ from online FRAX calculations due to differences in software versions. - All recommendations and calculations are to be considered as guidelines and should not replace sound clinical judgement - Caution: Fracture risk may be increased independent of BMD in patients with corticosteroid use, age greater than 65 years, or a history of prior fragility fracture. RECOMMENDATIONS: Follow-up in 2 years or as clinically indicated. Patients that are taking corticosteroids, are transplant recipients or have hyperparathyroidism should have annual follow-up. Follow-up scans should always be done on the same machine for accurate comparison. FOR MORE INFORMATION ABOUT DIAGNOSIS AND TREATMENT: [facility] Osteoporosis and Metabolic Bone Disease:? [email or web address]/yohana [email or web address] National Osteoporosis Foundation:? www.nof.org International Society of Clinical Densitometry www.iscd.org Tamper Operator: OG Transcribe Date/Time: Feb 22 2025 1:13P Dictated by : AUSTYN FOUNTAIN MD This examination was interpreted and the report reviewed and electronically signed by: AUSTYN FOUNTAIN MD on Feb 22 2025 1:40PM [facility] DIVISION OF RADIOLOGY Radiology Study observation (narrative) [facility] Bacteria Ur Culton Bacteria identified Cx Nom (U) ORGANISM ID: 1 >=100,000 CFU/ml Escherichia coli ORGANISM ID: 1 (ESCHERICHIA COLI) ANTIBIOTIC INTERPRETATION KRISTIN STATUS REFERENCE RANGE Ampicillin R >=32 F Susceptible <=8 , Intermediate >8 , Resistant >16 Cefazolin S <=4 F Susceptible 0-16 , Intermediate <0 or >16 , Resistant >16 For uncomplicated urinary tract infections, cefazolin results can be used to predict susceptibility or resistance to cephalexin. Ceftriaxone S <=1 F Susceptible <=1 , Intermediate >1 , Resistant >=4 Cefepime S <=1 F Susceptible <=2 , Susceptible-Dose Dependent >2 , Resistant >=16 Ertapenem S <=0.5 F Susceptible <=0.5 , Intermediate >.5 , Resistant >1 Meropenem S <=0.25 F Susceptible <=1 , Intermediate >1 , Resistant >2 Ampicillin/Sulbact S 8 F Susceptible <=8 , Intermediate >8 , Resistant >16 Piperacillin/Tazobac S <=4 F Susceptible <16 , Susceptible-Dose Dependent >=16 , Resistant >=32 Gentamicin S 2 F Susceptible <=2 , Intermediate >2 , Resistant >=8 Tobramycin S <=1 F Susceptible <4 , Intermediate >=4 , Resistant >=8 Trimeth sulfameth S <=20 F Susceptible <=40 , Resistant >40 Ciprofloxacin R >=4 F Susceptible <0.5 , Intermediate >=.5 , Resistant >=1 Nitrofurantoin S <=16 F Susceptible <=32 , Intermediate >32 , Resistant >64 Abnormal [facility] Comment on above: Performed By: #### 6 30-4 ####[facility] [id number] [address] [address] [place] CNOVon 01-11-2025 CNOV Office Visit (FAMPWS) PRASHANT SHEFFIELD ([id number]) 1950 F Date Time Provider Department 01/11/25 12:40 PM [facility] your visit today, we recorded the following information about you: Temperature Pulse Respiration Blood pressure 97.9 degrees 57/minute 16/minute 118/70 Weight Height 63 kg 1.545 m Lauren Camacho PA-C 01/21/2025 8:26 AM Addendum Prashant Sheffield is a 74 year old female here for a Medicare wellness visit. Medicare Health Risk Assessment General Health Fair/average Exercise: Minutes/Day HEP Exercise: Days/Week 5 Alcohol: Daily Use yes Alcohol: Drinks/Day 1 beer/day Alcohol: 6 or more drinks never Feel off balance Yes- parkinson's Concerns: Teeth/Dentures Yes- sees dentist Concerns: Sexual function Declines to answer Troubled by feelings no Frequency: Eating healthy diet sometimes ADLs requiring help yes Safety precautions in home/vehicle yes Smoke, vape, chews tobacco no Difficulty hearing no Difficulty seeing no Current Providers Specialists: I have reviewed specialist-related care of the patient in the medical record. Medical/Family history review Reviewed and updated problem list, medical/surgical/fam sony/social history, medications, and allergies. Opioid use review Opioid Medications (last 90 days) No data to display Anxiety/Depression screening Recommendation: no further intervention at this time Cognitive screening Cognitive screening reviewed and Patient has known cognitive impairment. Functional Observation Was the patient's Timed Up AND Go test unsteady or >= 12 seconds? No Advance Care Planning Surrogate decision maker and/or advance care plan documented Measurements BP 118/70 (BP Site: Left Arm, BP Position: Sitting, BP Cuff Size: Regular Adult) Pulse (!) 57 Temp 36.6 ?C (97.9 ?F) Resp 16 Ht 154.5 cm (5' 0.83") Wt 63 kg (139 lb) SpO2 100% BMI 26.41 kg/m? Vision Screening: Follows with optometry/ophthalmol ogy Assessment/Plan Medicare annual wellness visit, subsequent (Z00.00) - Counseled on healthy diet and regular exercise - Fall avoidance information provided - Personalized prevention plan provided Chief Complaint Patient presents with: Medicare Wellness Exam HPI Prashant Sheffield is a 74 year old female who presents here today for Chronic Medical Conditions.. Patient with hx of HTN, Hyperlipidemia, elevated blood sugar, GERD, parkinson's disease with memory loss, Anxiety with depression, alcohol use, osteoporosis as well as those reviewed and addressed below and in ROS. Patient denies specific concerns today Planning on going to assisted living at [facility]. Past medical history, appointments, medications, allergies reviewed. Previous Medical History PAST MEDICAL HISTORY Diagnosis Date Alcohol use 02/07/2016 1-2 drinks a day. 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, mild, with anxiety (HCC) 07/08/2024 Dry mouth 03/26/2016 Elevated hemoglobin A1c 12/01/2018 Essential hypertension 02/07/2016 Family history of colon cancer paternal grandmother Fibroid uterus 02/07/2016 Had one and never needed surgery Frequent falls 07/20/2021 Patient declines Physical Therapy as of 07/20/2021 GERD without esophagitis 02/07/2016 Hypertensive heart and chronic kidney disease with heart failure and stage 1 through stage 4 chronic kidney disease, or unspecified chronic kidney disease (HCC) 12/26/2023 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 Mixed hyperlipidemia 02/07/2016 Mobility impaired 07/25/2023 Osteopenia, senile 12/15/2019 DXA: 11/2019 Parkinson's disease (HCC) 02/07/[address] 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 Neuro feels may be anxiety related. No recurrence since (last episode was 06/2015) Previous Surgical History PAST SURGICAL HISTORY Procedure Laterality Date COLONOSCOPY 2005 COLONOSCOPY 02/20/2016 Dr. 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 STRESS ECG TREADMILL 12/23/2019 negative Family History FAMILY HISTORY Problem Relation Age of Onset Cancer Father 25 in groin area, Cervic (more content not included)... Normal [facility] CBC W Auto Differential pane l (Bld)on 01-05-2025 Basophils (Bld) [#/Vol] 0.05 10*3/uL Normal <0.11 [facility] Comment on above: Order Comment: Speci men Type: BLOOD SPECIMENOrdering Facility: [facility] Address: [address] [place] [address] Performed By: #### 5 7021-8 ####[facility] LABCLIA [id number] [place] [address] [place] Basophils/100 WBC (Bld) 0.7 % Normal C [facility] Comment on above: Order Comment: Speci men Type: BLOOD SPECIMENOrdering Facility: [facility] Address: [address] [place] [address] Performed By: #### 5 7021-8 ####[facility] LABCLIA [id number] [place] [address] [place] Differential cell count method Nom (Bld) Auto Normal [facility] Comment on above: Order Comment: Speci men Type: BLOOD SPECIMENOrdering Facility: [facility] Address: [address] [place] [address] Performed By: #### 5 7021-8 ####[facility] LABCLIA [id number] [place] [address] [place] Eosinophils (Bld) [#/Vol] 0.27 10*3/uL Normal <0.46 [facility] Comment on above: Order Comment: Speci men Type: BLOOD SPECIMENOrdering Facility: [facility] Address: [address] [place] [address] Performed By: #### 5 7021-8 ####[facility] LABCLIA [id number] [place] [address] [place] Eosinophils/100 WBC (Bld) 4.0 % Normal [facility] Comment on above: Order Comment: Speci men Type: BLOOD SPECIMENOrdering Facility: [facility] Address: [address] [place] [address] Performed By: #### 5 7021-8 ####[facility] LABCLIA [id number] [place] [address] [place] Erythrocyte distribution width (RBC) [Ratio] 13.7 % Normal 11.5-15.0 [facility] Comment on above: Order Comment: Speci men Type: BLOOD SPECIMENOrdering Facility: [facility] Address: [address] [place] [address] Performed By: #### 5 7021-8 ####[facility] LABCLIA [id number] [place] [address] [place] Hematocrit (Bld) [Volume fraction] 36.1 % Normal 36.0-46.0 [facility] Comment on above: Order Comment: Speci men Type: BLOOD SPECIMENOrdering Facility: [facility] Address: [address] [place] [address] Performed By: #### 5 7021-8 ####[facility] LABCLIA [id number] [place] [address] [place] Hemoglobin (Bld) [Mass/Vol] 11.3 g/dL Low 11.5-15.5 [facility] Comment on above: Order Comment: Speci men Type: BLOOD SPECIMENOrdering Facility: [facility] Address: [address] [place] [address] Performed By: #### 5 7021-8 ####[facility] LABCLIA [id number] [place] [address] [place] Immature granulocytes (Bld) [#/Vol] 10*3/uL Normal <0.10 [facility] Comment on above: Order Comment: Speci men Type: BLOOD SPECIMENOrdering Facility: [facility] Address: [address] [place] [address] Performed By: #### 5 7021-8 ####[facility] LABCLIA [id number] [place] [address] [place] Immature granulocytes/100 WBC (Bld) 0.3 % Normal [facility] Comment on above: Order Comment: Speci men Type: BLOOD SPECIMENOrdering Facility: [facility] Address: [address] [place] [address] Performed By: #### 5 7021-8 ####[facility] LABCLIA [id number] [place] [address] [place] Lymphocytes (Bld) [#/Vol] 2.25 10*3/uL Normal 1.00-4.00 [facility] Comment on above: Order Comment: Speci men Type: BLOOD SPECIMENOrdering Facility: [facility] Address: [address] [place] [address] Performed By: #### 5 7021-8 ####[facility] LABCLIA [id number] [place] [address] [place] Lymphocytes/100 WBC (Bld) 33.3 % Normal [facility] Comment on above: Order Comment: Speci men Type: BLOOD SPECIMENOrdering Facility: [facility] Address: [address] [place] [address] Performed By: #### 5 7021-8 ####[facility] LABCLIA [id number] [place] [address] [place] MCH (RBC) [Entitic mass] 28.7 pg Normal 26.0-34.0 [facility] Comment on above: Order Comment: Speci men Type: BLOOD SPECIMENOrdering Facility: [facility] Address: [address] [place] [address] Performed By: #### 5 7021-8 ####[facility] LABIA [id number] [place] [address] [place] MCHC (RBC) [Mass/Vol] 31.3 g/dL Normal 30.5-36.0 [facility] Comment on above: Order Comment: Speci men Type: BLOOD SPECIMENOrdering Facility: [facility] Address: [address] [place] [address] Performed By: #### 5 7021-8 ####[facility] [id number] [place] [address] [place] MCV (RBC) [Entitic vol] 91.6 fL Normal 80.0-100.[address] [facility] Comment on above: Order Comment: Speci men Type: BLOOD SPECIMENOrdering Facility: [facility] Address: [address] [place] [address] Performed By: #### 5 7021-8 ####[facility] [id number] [place] [address] [place] Monocytes (Bld) [#/Vol] 0.57 10*3/uL Normal <0.87 [facility] Comment on above: Order Comment: Speci men Type: BLOOD SPECIMENOrdering Facility: [facility] Address: [address] [place] [address] Performed By: #### 5 7021-8 ####[facility] LABIA [id number] [place] [address] [place] Monocytes/100 WBC (Bld) 8.4 % Normal C [facility] Comment on above: Order Comment: Speci men Type: BLOOD SPECIMENOrdering Facility: [facility] Address: [address] [place] [address] Performed By: #### 5 7021-8 ####[facility] LABCLIA [id number] [place] [address] [place] Neutrophils (Bld) [#/Vol] 3.60 10*3/uL Normal 1.45-7.50 [facility] Comment on above: Order Comment: Speci men Type: BLOOD SPECIMENOrdering Facility: [facility] Address: [address] [place] [address] Performed By: #### 5 7021-8 ####[facility] LABCLIA [id number] [place] [address] [place] Neutrophils/100 WBC (Bld) 53.3 % Normal [facility] Comment on above: Order Comment: Speci men Type: BLOOD SPECIMENOrdering Facility: [facility] Address: [address] [place] [address] Performed By: #### 5 7021-8 ####[facility] LABCLIA [id number] [place] [address] [place] Nucleated RBC (Bld) [#/Vol] 10*3/uL Normal <0.01 [facility] Comment on above: Order Comment: Speci men Type: BLOOD SPECIMENOrdering Facility: [facility] Address: [address] [place] [address] Performed By: #### 5 7021-8 ####[facility] LABCLIA [id number] [place] [address] [place] Nucleated RBC/100 WBC (Bld) [Ratio] 0.0 /100 WBC Normal [facility] Comment on above: Order Comment: Speci men Type: BLOOD SPECIMENOrdering Facility: [facility] Address: [address] [place] [address] Performed By: #### 5 7021-8 ####[facility] LABCLIA [id number] [address] [address] [place] Platelet mean volume (Bld) [Entitic vol] 11.6 fL Normal 9.0-12.7 [facility] Comment on above: Order Comment: Speci men Type: BLOOD SPECIMENOrdering Facility: [facility] Address: [address] [place] [address] Performed By: #### 5 7021-8 ####[facility] LABIA [id number] [place] [address] [place] Platelets (Bld) [#/Vol] 216 10*3/uL Normal 150-400 [facility] Comment on above: Order Comment: Speci men Type: BLOOD SPECIMENOrdering Facility: [facility] Address: [address] [place] [address] Performed By: #### 5 7021-8 ####[facility] LABIA [id number] [place] [address] [place] RBC (Bld) [#/Vol] 3.94 10*6/uL Normal 3.90-5.20 [facility] Comment on above: Order Comment: Speci men Type: BLOOD SPECIMENOrdering Facility: [facility] Address: [address] [place] [address] Performed By: #### 5 7021-8 ####[facility] LABIA [id number] [place] [address] [place] WBC (Bld) [#/Vol] 6.76 10*3/uL Normal 3.70-11.00 [facility] Comment on above: Order Comment: Speci men Type: BLOOD SPECIMENOrdering Facility: [facility] Address: [address] [place] [address] Performed By: #### 5 7021-8 ####[facility] LABIA [id number] [place] [address] [place] Comprehensive metabolic 2000 panelon 01-05-2025 Albumin [Mass/Vol] 4.5 g/dL Normal 3.9-4.9 [facility] Comment on above: Order Comment: Speci men Type: BLOOD SPECIMENOrdering Facility: [facility] Address: [address] [place] [address] Performed By: #### 2 4323-8, 42997-9, 17871-3, LIPNF ####[facility] LABCLIA [id number] [place] [address] [place] ALP [Catalytic activity/Vol] 67 U/L Normal 34-123 [facility] Comment on above: Order Comment: Speci men Type: BLOOD SPECIMENOrdering Facility: [facility] Address: [address] [place] [address] Performed By: #### 2 4323-8, 35281-1, 62816-8, LIPNF ####[facility] LABCLIA [id number] [place] [address] [place] ALT [Catalytic activity/Vol] 20 U/L Normal 7-38 [facility] Comment on above: Order Comment: Speci men Type: BLOOD SPECIMENOrdering Facility: [facility] Address: [address] [place] [address] Performed By: #### 2 4323-8, 15571-2, 25471-7, LIPNF ####[facility] LABCLIA [id number] [place] [id number] [place] Anion gap [Moles/Vol] 11 mmol/L Normal 8-15 [facility] Comment on above: Order Comment: Speci men Type: BLOOD SPECIMENOrdering Facility: [facility] Address: [address] [place] [address] Performed By: #### 2 4323-8, 70128-8, 81358-2, LIPNF ####[facility] LABCLIA [id number] [place] [id number] [place] AST [Catalytic activity/Vol] 19 U/L Normal 13-35 [facility] Comment on above: Order Comment: Speci men Type: BLOOD SPECIMENOrdering Facility: [facility] Address: [address] [place] [address] Performed By: #### 2 4323-8, 59194-5, 90245-5, LIPNF ####[facility] LABCLIA [id number] [place] [address] [place] Bilirubin [Mass/Vol] 0.3 mg/dL Normal 0.2-1.3 [facility] Comment on above: Order Comment: Speci men Type: BLOOD SPECIMENOrdering Facility: [facility] Address: [address] [place] [address] Performed By: #### 2 4323-8, 43436-3, 59485-0, LIPNF ####[facility] LABIA [id number] [place] [address] [place] Calcium [Mass/Vol] 10.0 mg/dL Normal 8.5-10.2 [facility] Comment on above: Order Comment: Speci men Type: BLOOD SPECIMENOrdering Facility: [facility] Address: [address] [place] [address] Performed By: #### 2 4323-8, 77281-8, 72110-1, LIPNF ####[facility] LABIA [id number] [place] [address] [place] Chloride [Moles/Vol] 102 mmol/L Normal 98-107 [facility] Comment on above: Order Comment: Speci men Type: BLOOD SPECIMENOrdering Facility: [facility] Address: [address] [place] [address] Performed By: #### 2 4323-8, 90293-8, 80225-9, LIPNF ####[facility] LABCLIA [id number] [place] [address] [place] CO2 [Moles/Vol] 26 mmol/L Normal 22-30 [facility] Comment on above: Order Comment: Speci men Type: BLOOD SPECIMENOrdering Facility: [facility] Address: [address] [place] [address] Performed By: #### 2 4323-8, 92024-9, 16466-6, LIPNF ####[facility] LABCLIA [id number] [place] [address] [place] Creatinine [Mass/Vol] 1.09 mg/dL High 0.58-0.96 [facility] Comment on above: Order Comment: Speci men Type: BLOOD SPECIMENOrdering Facility: [facility] Address: [address] [place] [address] Performed By: #### 2 4323-8, 79059-9, 64751-0, LIPNF ####[facility] LABCLIA [id number] [place] [address] [place] Creatinine and Glomerular filtration rate.predicted panel (S/P/Bld) 54 mL/min/1.73m??? Low >=60 [facility] Comment on above: Order Comment: Abilio tam Type: BLOOD SPECIMENOrdering Facility: [facility] Address: [address] [place] [address] Result Comment: Monet mated Glomerular Filtration Rate (eGFR) is calculated using the 2020 CKD-EPI creatinine equation. This equation utilizes serum creatinine, sex, and age as parameters. The creatinine assay has traceable calibration to isotope dilution-mass spectrometry. Refer to KDIGO guidelines for clinical interpretation. In patients with unstable renal function, e.g. those with acute kidney injury, the eGFR may not accurately reflect actual GFR. Performed By: #### 2 4323-8, 42542-2, 35145-3, LIPNF ####[facility] LABCLIA [id number] [place] [id number] [place] Glucose [Mass/Vol] 82 mg/dL Normal 74-99 [facility] Comment on above: Order Comment: Speci men Type: BLOOD SPECIMENOrdering Facility: [facility] Address: [address] [place] [address] Result Comment: The [place] Diabetes [employer] (ADA) provides guidance for cutoff values for fasting glucose and random glucose. The ADA defines fasting as no caloric intake for at least 8 hours. Fasting plasma glucose results between 100 to 125 mg/dL indicate increased risk for diabetes (prediabetes). Fasting plasma glucose results greater than or equal to 126 mg/dL meet the criteria for diagnosis of diabetes. In the absence of unequivocal hyperglycemia, results should be confirmed by repeat testing. In a patient with classic symptoms of hyperglycemia or hyperglycemic crisis, random plasma glucose results greater than or equal to 200 mg/dL meet the criteria for diagnosis of diabetes. Reference: Standards of Medical Care in Diabetes 2016, [place] [employer]. Diabetes Care. 2016.39(Suppl 1). Performed By: #### 2 4323-8, 58370-1, 92093-0, LIPNF ####[facility] LABCLIA [id number] [place] [id number] [place] Potassium [Moles/Vol] 5.0 mmol/L Normal 3.7-5.1 [facility] Comment on above: Order Comment: Abilio tam Type: BLOOD SPECIMENOrdering Facility: [facility] Address: [address] [place] [address] Performed By: #### 2 4323-8, 14714-0, 66588-3, LIPNF ####[facility] LABCLIA [id number] [place] [id number] [place] Protein [Mass/Vol] 6.9 g/dL Normal 6.3-8.0 [facility] Comment on above: Order Comment: Abilio tam Type: BLOOD SPECIMENOrdering Facility: [facility] Address: [address] [place], [place] [address] Performed By: #### 2 4323-8, 01225-2, 06581-3, LIPNF ####[facility] LABCLIA [id number] [place] [id number] [place] Sodium [Moles/Vol] 139 mmol/L Normal 136-144 [facility] Comment on above: Order Comment: Speci men Type: BLOOD SPECIMENOrdering Facility: [facility] Address: [address] [place] [address] Performed By: #### 2 4323-8, 31849-1, 50027-3, LIPNF ####[facility] LABCLIA [id number] [place] [address] [place] Urea nitrogen [Mass/Vol] 21 mg/dL Normal 7-21 [facility] Comment on above: Order Comment: Speci men Type: BLOOD SPECIMENOrdering Facility: [facility] Address: [address] [place] [address] Performed By: #### 2 4323-8, 24124-8, 79219-2, LIPNF ####[facility] LABIA [id number] [place] [address] [place] HbA1c (Bld)on 01-05-2025 Average glucose Estimated from glycated hemoglobin (Bld) [Mass/Vol] 108 mg/dL Normal [facility] Comment on above: Order Comment: Abilio tam Type: BLOOD SPECIMENOrdering Facility: [facility] Address: [address] [place] [address] Result Comment: eAG: (Estimated average glucose) is a calculated value from HgbA1c and is agricultural sales representative of the average blood glucose level in the last 2-3 month period. Performed By: #### 5 5454-3 ####[facility] LABCLIA [id number] [place] [address] [place] HbA1c (Bld) [Mass fraction] 5.4 % Normal 4.3-5.6 [facility] Comment on above: Order Comment: Abilio men Type: BLOOD SPECIMENOrdering Facility: [facility] Address: [address] [place] [address] Result Comment: [place] Diabetes Association guidelines indicate that patients with HgbA1c in the range 5.7-6.4% are at increased risk for development of diabetes, and intervention by lifestyle modification may be beneficial. HgbA1c greater or equal to 6.5% is considered diagnostic of diabetes. Performed By: #### 5 5454-3 ####[facility] LABCLIA [id number] [place] [id number] [place] Iron and Iron binding capaci ty panelon 01-05-2025 Iron [Mass/Vol] 61 ug/dL Normal 41-186 [facility] Comment on above: Order Comment: Speci men Type: BLOOD SPECIMENOrdering Facility: [facility] Address: [address] [place] [address] Performed By: #### 2 4323-8, 97354-6, 38337-4, LIPNF ####[facility] LABIA [id number] [address] [place] Iron binding capacity [Mass/Vol] 291 ug/dL Normal 232-386 [facility] Comment on above: Order Comment: Speci men Type: BLOOD SPECIMENOrdering Facility: [facility] Address: [address] [place] [address] Performed By: #### 2 4323-8, 74172-6, 36318-8, LIPNF ####[facility] LABIA [id number] [place] [address] [place] Iron/TIBC [Molar ratio] 21.0 % Normal 15.0-57.0 [facility] Comment on above: Order Comment: Speci men Type: BLOOD SPECIMENOrdering Facility: [facility] Address: [address] [place] [address] Performed By: #### 2 4323-8, 51407-7, 76094-2, LIPNF ####[facility] LABIA [id number] [place] [id number] [place] LIPID PANEL, NONFASTINGon Cholesterol [Mass/Vol] 162 mg/dL Normal <200 [facility] Comment on above: Order Comment: Speci men Type: BLOOD SPECIMENOrdering Facility: [facility] Address: [address] [place] [address] Result Comment: <200 mg/dL, Desirable 200-239 mg/dL, Borderline high >239 mg/dL, High Performed By: #### 2 4323-8, 10340-5, 63199-0, LIPNF ####[facility] LABCLIA [id number] [place] [address] [place] HDL CHOLESTEROL, NF 68 mg/dL Normal >39 [facility] Comment on above: Order Comment: Speci men Type: BLOOD SPECIMENOrdering Facility: [facility] Address: [address] [place] [address] Result Comment: 40-5 9 mg/dL, Acceptable >59 mg/dL, High: Negative risk factor for coronary heart disease <40 mg/dL, Low: Positive risk factor for coronary heart disease Performed By: #### 2 4323-8, 09709-0, 09747-2, LIPNF ####[facility] LABCLIA [id number] [address] [place] LDL CHOLESTEROL, NF 79 mg/dL Normal <100 [facility] Comment on above: Order Comment: Speci men Type: BLOOD SPECIMENOrdering Facility: [facility] Address: [address] [place] [address] Result Comment: <100 mg/dL, Optimal 100-129 mg/dL, Near optimal/above optimal 130-159 mg/dL, Borderline high 160-189 mg/dL, High >189 mg/dL, Very high Secondary prevention optimal LDL Cholesterol levels are recommended to be < 70 mg/dL Performed By: #### 2 4323-8, 72323-2, 42795-9, LIPNF ####[facility] LABCLIA [id number] [address] [place] LDL/HDL RATIO, NF 1.16 mg/dL Normal <2.54 [facility] Comment on above: Order Comment: Speci men Type: BLOOD SPECIMENOrdering Facility: [facility] Address: [address] [place] [address] Result Comment: Lorena lobo: 1. National Cholesterol Education Program ATP III Guideline At-A-Glance Quick Desk Reference: National Heart, Lung, and Blood [place]. National Institutes of Health. 2001: NIH Publication No. 01-3305. 2. An International Atherosclerosis Society position paper: global recommendations for the management of dyslipidemia: executive summary, Atherosclerosis. 2014: 232(2):410-413. Performed By: #### 2 4323-8, 88015-6, 12785-3, LIPNF ####[facility] LABCLIA [id number] [place] [address] [place] NON HDL CHOL, NF 94 mg/dL Normal <130 [facility] Comment on above: Order Comment: Speci men Type: BLOOD SPECIMENOrdering Facility: [facility] Address: [address] [place] [address] Result Comment: <130 mg/dL, Optimal 130-159 mg/dL, Near optimal/above optimal 160-189 mg/dL, Borderline high 190-219 mg/dL, High >219 mg/dL, Very high Secondary prevention optimal non HDL Cholesterol levels are recommended to be <100 mg/dL Performed By: #### 2 4323-8, 31491-4, 03204-8, LIPNF ####[facility] LABCLIA [id number] [place] [address] [place] T CHOL/HDL RATIO NF 2.38 mg/dL Normal <5.10 [facility] Comment on above: Order Comment: Speci men Type: BLOOD SPECIMENOrdering Facility: [facility] Address: [address] [place] [address] Performed By: #### 2 4323-8, 35095-7, 26260-2, LIPNF ####[facility] LABCLIA [id number] [place] [id number] [place] TRIGLYCERIDES, NF 74 mg/dL Normal <150 [facility] Comment on above: Order Comment: Speci men Type: BLOOD SPECIMENOrdering Facility: [facility] Address: [address] [place] [address] Result Comment: <150 mg/dL, Normal 150-199 mg/dL, Borderline high 200-499 mg/dL, High >499 mg/dL, Very high Performed By: #### 2 4323-8, 75501-1, 19157-1, LIPNF ####[facility] LABCLIA [id number] [place] [address] [place] VLDL CHOLESTEROL, NF 15 mg/dL Normal <30 [facility] Comment on above: Order Comment: Speci men Type: BLOOD SPECIMENOrdering Facility: [facility] Address: [address] [place] [address] Performed By: #### 2 4323-8, 81966-1, 74292-1, LIPNF ####[facility] LABCLIA [id number] [place] [address] [place] Magnesium SerPl-mCncon 01-05 Magnesium [Mass/Vol] 2.2 mg/dL Normal 1.7-2.3 [facility] Comment on above: Order Comment: Speci men Type: BLOOD SPECIMENOrdering Facility: [facility] Address: [address] [place] [address] Performed By: #### 2 4323-8, 94412-7, 09435-1, LIPNF ####[facility] LABCLIA [id number] [place] [address] [place] Urinalysis complete panel (U )on 01-05-2025 BACTERIA UL >9821 High Negative [facility] Comment on above: Order Comment: Speci men Type: URINE SPECIMENOrdering Facility: [facility] Address: [address] [place] [address] Performed By: #### 2 4356-8 ####[facility] LABCLIA [id number] [place] [address] [place] Bilirubin Ql (U) Negative Normal Negative [facility] Comment on above: Order Comment: Speci men Type: URINE SPECIMENOrdering Facility: [facility] Address: [address] [place] [address] Performed By: #### 2 4356-8 ####[facility] LABCLIA [id number] [place] [address] [place] Clarity (Unsp spec) Clear Normal Clear [facility] Comment on above: Order Comment: Speci men Type: URINE SPECIMENOrdering Facility: [facility] Address: [address] [place] [address] Performed By: #### 2 4356-8 ####[facility] LABCLIA [id number] [place] [address] [place] Color (U) Yellow Normal Yellow [facility] Comment on above: Order Comment: Speci men Type: URINE SPECIMENOrdering Facility: [facility] Address: [address] [place] [address] Performed By: #### 2 4356-8 ####[facility] LABCLIA [id number] [place] [address] [place] Epithelial cells LM.HPF (Urine sed) [#/Area] None Seen Normal [facility] Comment on above: Order Comment: Speci men Type: URINE SPECIMENOrdering Facility: [facility] Address: [address] [place] [address] Performed By: #### 2 4356-8 ####[facility] LABCLIA [id number] [place] [address] [place] Glucose Test strip (U) [Mass/Vol] Negative Normal Negative [facility] Comment on above: Order Comment: Speci men Type: URINE SPECIMENOrdering Facility: [facility] Address: [address] [place] [address] Performed By: #### 2 4356-8 ####[facility] LABCLIA [id number] [place] [address] [place] Hemoglobin Ql (U) Negative Normal Negative [facility] Comment on above: Order Comment: Speci men Type: URINE SPECIMENOrdering Facility: [facility] Address: [address] [place] [address] Performed By: #### 2 4356-8 ####[facility] LABCLIA [id number] [place] [address] [place] Hyaline casts (Urine sed) [#/Area] 0 /[LPF] Normal 0 /LPF [facility] Comment on above: Order Comment: Speci men Type: URINE SPECIMENOrdering Facility: [facility] Address: [address] [place] [address] Performed By: #### 2 4356-8 ####[facility] LABCLIA [id number] [place] [address] [place] Ketones Ql (U) Negative Normal Negative [facility] Comment on above: Order Comment: Speci men Type: URINE SPECIMENOrdering Facility: [facility] Address: [address] [place] [address] Performed By: #### 2 4356-8 ####[facility] LABCLIA [id number] [place] [address] [place] Leukocyte esterase Test strip Ql (U) 1+ Abnormal Negative [facility] Comment on above: Order Comment: Speci men Type: URINE SPECIMENOrdering Facility: [facility] Address: [address] [place] [address] Performed By: #### 2 4356-8 ####[facility] LABCLIA [id number] [place] [address] [place] Nitrite Ql (U) Positive Abnormal Negative [facility] Comment on above: Order Comment: Speci men Type: URINE SPECIMENOrdering Facility: [facility] Address: [address] [place] [address] Performed By: #### 2 4356-8 ####[facility] LABCLIA [id number] [place] [address] [place] pH (U) 6.5 [pH] Normal <8.5 [facility] Comment on above: Order Comment: Speci men Type: URINE SPECIMENOrdering Facility: [facility] Address: [address] [place] [address] Performed By: #### 2 4356-8 ####[facility] LABIA [id number] [place] [address] [place] Protein (U) [Mass/Vol] Negative Normal Negative [facility] Comment on above: Order Comment: Speci men Type: URINE SPECIMENOrdering Facility: [facility] Address: [address] [place] [address] Performed By: #### 2 4356-8 ####[facility] LABIA [id number] [place] [address] [place] RBC LM.HPF (Urine sed) [#/Area] 0-2 /HPF Normal 0-2 /HPF [facility] Comment on above: Order Comment: Speci men Type: URINE SPECIMENOrdering Facility: [facility] Address: [address] [place] [address] Performed By: #### 2 4356-8 ####[facility] LABIA [id number] [place] [address] [place] Specific gravity (U) [Rel density] 1.017 Normal 1.005-1.030 [facility] Comment on above: Order Comment: Speci men Type: URINE SPECIMENOrdering Facility: [facility] Address: [address] [place] [address] Performed By: #### 2 4356-8 ####[facility] LABIA [id number] [place] [address] [place] Urobilinogen Ql (U) 0.2 EU/dL Normal 0.2-1.0 EU/dL [facility] Comment on above: Order Comment: Speci men Type: URINE SPECIMENOrdering Facility: [facility] Address: [address] [place] [address] Performed By: #### 2 4356-8 ####[facility] LABCLIA [id number] [place] [address] [place] WBC LM.HPF (Urine sed) [#/Area] /[HPF] Abnormal 0-5 /HPF [facility] Comment on above: Order Comment: Speci men Type: URINE SPECIMENOrdering Facility: [facility] Address: [address] [place] [address] Performed By: #### 2 4356-8 ####[facility] LABIA [id number] [place] [address] [place] Vit B12 [facility] 02-18-2 025 Cobalamin (Vitamin B12) [Mass/Vol] 1135 pg/mL Normal 232-1245 [facility] Comment on above: Order Comment: Speci men Type: BLOOD SPECIMENOrdering Facility: [facility] Address: [address] [place] [address] Performed By: #### 2 132-9 ####[facility] LABIA [id number] [place] [address] [place] Modified Barium Swallow Stud [facility] 12-11-2024 Modified Barium Swallow Study [facility] Pathology [address] [place] [address] Modified Barium Swallow Study MR#: [id number] Acct: [id number] Name: PRASHANT SHEFFIELD Rep #: [id number] : 1950 74 From: Kathy Leung M.A. [facility] [place]-KICKING MACHINE OPERATOR Modified Barium Swallow Patient Information Study Date: 12/11/24 Study Time: 12:30 Direct Billable Minutes: 115 Total Minutes procedure reportin Diagnosis: Dysphagia R13.10 Referring Physician: Magdalena Forman Reason for Referral: Re-assess swallow function and aspiration risk to determine LRD textures and strategies to decrease risk for aspiration. This KICKING MACHINE OPERATOR spoke w/ pt's OP KICKING MACHINE OPERATOR, Fallon Martinez, prior to MBSS. Will consider pt for sips via straw due to pt having difficulty self-administering sips by cup. Medical History: PMH: ???Parkinson???s, GERD, HTN, Hx of falls w/ hitting head, Dementia, Generalized weakness, Dysphagia, Physical debility ??? See EMR for full PMH. The patient has extensive history of dysphagia w/ past MBSS 01/30/2022 revealing mild oropharyngeal dysphagia and recommending soft and bite size textures / thin liquids w/ no straws (See study for full precautions). Patient has attended OP ST on and off to manage dysphagia dysphonia secondary to Parkinson???s disease. She also had ST POC during inpatient rehabilitation stay from 08/09/2023- 08/20/2023 to manage dysphagia and cognitive-communicat ion deficit. Most recently, she began OP ST POC 11/24/2024. BSE recommended soft and bite size textures / thin liquids w/ supervision needed all meals, reduce distractions, needs verbal cues to use recommended strategies and small sips sites when eating. Pt was recommended for repeat MBSS, as well as OP voice evaluation. Current Diet Ordered: Soft and bite size textures / thin liquids Dentition: Upper Dentures (lower dentures are ill fitting) Mental Status: Impaired (Hx of dementia) Respiratory Status: Oxygenating on Room Air Penetration-Aspirati on Scale Penetration-Aspirati on Scale: OBJECTIVE ASSESSMENT OF SWALLOW FUNCTION (QUANTITATIVE ??? PER TRIAL): PENETRATION / ASPIRATION SCALE (LANDIN): 1 = does not enter airway 2 = enters airway/above vocal folds/ejected 3 = enters airway/above vocal folds/not ejected 4 = enters airway/contacts vocal folds/ejected 5 = enters airway/contacts vocal folds/not ejected 6 = enters airway/below vocal folds/ejected 7 = enters airway/below vocal folds/not ejected despite effort 8 = enters airway/below vocal folds/no effort VIDEOFLOROSCOPIC SCALE SCORE (LANDIN): Grade I = aspiration of material that has penetrated into the laryngeal vestibule, intact cough reflex Grade II = aspiration < 10 % of the bolus, intact cough reflex Grade III = aspiration of < 10 % of the bolus, reduced cough reflex or aspiration of > 10 % of the bolus, intact cough reflex Grade IV = aspiration of > 10 % of the bolus, reduced cough reflex Penetration-Aspirati on Scale Score Thin Liquid via teaspoon: Result: 3= enters airways/above vocal folds/not ejected Thin Liquid via teaspoon Trial 2: Result: 2= enter airway/above vocal folds/ejected Thin Liquid via large single sip: cup: Result: 5= enters airways/contacts vocal folds/not ejected Leal Thick Liquid via small single sip: cup: Result: 2= enter airway/above vocal folds/ejected Comment: Cued cough and re-swallow after the swallow to clear residues on VF from previous trial = effective Pudding via teaspoon: Result: 1= does not enter airway Thin Liquid via single sip: straw: Result: 4= enters airway/contacts vocal folds/ejected 1/4 Cookie: Result: 1= does not enter airway Thin Liquid via single sip: straw Trial 2: Result: 5= enters airways/contacts vocal folds/not ejected Leal Thick Liquid via single sip: straw: Result: 1= does not enter airway Leal Thick Liquid via single sip: straw Trial 2: Result: 1= does not enter airway Comment: Cued cough and re-swallow after the swallow = mostly effective Thin Liquid via single sip: straw Chin tuck: Result: 5= enters airways/contacts vocal folds/not ejected Thin Liquid via small single sip: cup Effortful swallow: Result: 4= enters airway/contacts vocal folds/ejected Thin Liquid via single sip: straw Effortful swallow Trial 2: Result: 5= enters airways/contacts vocal folds/not ejected Comment: Cued cough and re-swallow after the swallow = mostly effective Thin Liquid via single sip: straw Effortful swallow Trial 3: Result: 2= enter airway/above vocal folds/ejected Oral Phase Labial Seal: No Labial Escape Tongue Control During Bolus Hold: Posterior escape of greater than half of bolus Bolus Preparation/Masticat ion: Slow prolonged chewing/mashing with complete recollection Bolus Transport/Lingual Motion: Slowed tongue motion Oral Residue: Residue collection on oral structures Pharyngeal Phase Initiation of Pharyngeal Swallow: Bolus head in pyriforms Soft Palate Elevation: No bolu (more content not included)... Normal [facility] SP/HP.SP.Sherri 11-24-2024 SP/HP.SP.EV [facility] Speech Pathology [facility] [address] [place] [address]. [address] [place] [address] / REHABILITATION SERVICES INITIAL EVALUATION MR#: [id number] Acct: [id number] Name: PRASHANT SHEFFIELD Rep #: [id number] : 1950 74 From: Malgorzata Martinez M.S., [facility] [place]-KICKING MACHINE OPERATOR Referring Dr.: Magdalena Forman Status: REG RCR Insurance: MEDICARE PART A B ANTHEM Visit History Visit Info Date of Eval: 11/23/24 Visit: 1 Loom Operator: JULIANO Naranjo Attending Doctor: ALINA Referring Doctor: ALINA Reason for Referral: DYSPHAGIA. RX HERE Previous speech therapy: Yes Results: Evaluation on 01/16/2022 with MBSS on 01/30/22, along with tx for dysphagia and voice Other Relevant Medical History/Diagnoses/Olmos rgery: PRASHANT SHEFFIELD is a 74 year old female who presents to [facility] PMH history including Parkinson's (diagnosed 5-6 years ago), Dyslipidemia, GERD without esophagitis, Hypertension, Oropharyngeal Dysphagia (SEE H P for full PMH). She has a hx of falls, which resulted in her hitting the back of her head without loss of consciousness. [facility] recommending MBS study to objectively assess swallow function and aspiration risk. See her previous MBSS report below which rx soft and bite size solids and thin liquids along with swallowing strategies and recommendation for oropharyngeal strengthening exercises. She has not required the Heimlich maneuver in the past. She reports her swallowing got better after therapy in 2021, but recently she started noticing intermittent coughing while drinking along "randomly" when sitting in a chair. At her last neurology appt, Dr. Forman recommended starting speech therapy again. The patient's sister, Moo, was present for evaluation. Medications related to this diagnosis: Aspirin, Benztropine, B12, Celexa, Folic Acid, Melatonin, Omeprazole, Pramipexole, Rasagiline, Simvistatin, Slow FE Iron, Valsartan, Vitamin C, Vitamin D3 Smoking Status: Never smoker Diagnosis Diagnosis: Parkinson's disease, Oropharyngeal Dysphagia, Dysphonia Pain Is pain an issue with your current prescribed condition?: No Personal Preferred language: [place] Patient Allergies Allergies Allergies: Allergies codeine Adverse Reaction (Verified 09/03/23 13:40) "CRAZY DREAMS" DOES NOT LIKE TO TAKE IT Subjective Dysphagia Symptoms Reported Symptoms/Problems with: Coughing, Choking, Difficulty Swallowing Liquids and Difficulty Swallowing Pills Current Diet Solids Current Diet: Soft Current Diet Liquids Current Liquids: Thin Comments Oral Motor Exam: -: Prashant participated in an oral motor exam demonstrating lingual protrusion and lateralization, labial seal WFL, and symmetrical velum movement. Prashant was wearing only her upper denture d/t her lower dentures not fitting well. Moo stating they have been refitted a few times but they are still not fitting well. Prashant will eat with either just the upper dentures in or neither. Depending on what she is wearing will often dictate the types of foods she will eat. She appears to be aware of limitations when she does not wear the upper denture. Objective Dysphagia Administered by Administered by: Self Thin Liquids Administred via: Cup and Straw Oral Transit: WNL Bolus clearance: fully cleared Gagging: No Cough: immediate and productive Pharyngeal phase: suspect pharyngeal deficits Patient Report: ST reviewed results of the previous MBSS recommending no straws d/t PAS of [address] on [address] trials[address] ST explaining what this score meant. Prashant and Moo stating that straws have cont'd to be used b/c it is difficult for her to tip her head back far enough to get the full drink from the cup. She reports no difficulty with coughing when using the straw. ST stating she may not be feeling the drinks on her cords but that doesn't mean it isn't sitting on them. Discussed how even so, she has not developed aspiration pneumonia or acquired other respiratory dx since her previous MBSS. Education provided on recommendations are made considering her overall health, MBSS findings, quality of life, and her participation in safe swallowing strategies. Comments: Prashant trialing drinks via single cup, sequential cup, single straw, and sequential straw with no overt s/sx of penetration/aspirati on. She utilized a liquid wash via straw following the Arlet naDoone trial which resulted in immediate coughing. Pt needing additional sips to wash down the cookie crumbs. The additional sips did not reveal s/sx of pen/asp. Soft Bite sized (Mechanical) Oral Preparation: minimal chew thrust gravity assisted Oral Transit: Delay > 1 seconds Bolus clearance: significant clearance/minimal residue Cough: none observed/unable to assess Pharyngeal phase: immediate laryngeal elevation (more content not included)... Normal [facility] [id number] 09-14-2024 [id number] HNO ID: [id number] Author: MEÑO PHILLIP PT Service: ? Author Type: Physical Therapist Type: [id number] Filed: 09/14/2024 14:15 Note Text: [facility] Physical Therapy Plan of Care Certification Patient Name: Prashant Sheffield : 1950 CC #: [id number] Date: 09/14/2024 To: Edna Umanzor APRN.* From Therapist: Meño Phillip PT RE: Patient Certification/ Recertification Your review, approval and electronic signature are required in order to comply with Payor: MEDICARE / Plan: MEDICARE A AND B / Product Type: Medicare / regulations. The identified Physical Therapy PLAN OF CARE for the patient is as follows: M54.50 Acute midline low back pain without sciatica (primary encounter diagnosis) PLAN OF CARE: Assessment: Prashant Sheffield presents with chief complaint of L Sided LBP with L Radicular Pain that interferes with sitting . Patient states Left Leg Pain > LBP. The patient presents with impairments in ADL's, flexibility, gait, independence in exercise, overall function, patient reported outcome measures, posture, range of motion, soft tissue healing, strength, symptom management, and tissue tenderness. PROMIS? (Patient-Reported Outcomes Measurement Information System) scores were reviewed and identified as a rehabilitation concern. Prognosis for therapy is Good due to: current objective clinical presentation, positive past response to therapy, good support system/ coping skills .The patient will benefit from skilled therapy services to meet the goals established for this plan of care as noted below. Classification Pain Mechanism Classification: Neuropathic Low Back Pain Classification: Movement Control Goals for Episode of Care: established 09/14/24 Patient reported outcome of physical function will increase T-score by a minimum 5 points. [place] in home exercise program. Patient will decrease pain rating by 2 points to meet minimal clinical important difference for numeric pain rating scale. Perform Sitting with decreased report of symptoms/pain in 6 weeks. Restore pain-free lumbar ROM to WFL to allow for improved ADL/IADLs Decreased tissue tenderness AND irritability to L Hip/Low Back. Improve Modified Oswestry Pain Questionnaire (LBP) by 6 points (12%) to indicate a Minimal Clinical Important Difference. Patient Goals: Alleviate Pain. Time Frame for Goals and Treatment : 11/09/24 Planned Interventions, Frequency, and Duration: Current Frequency: 2x/week Duration: 4 weeks Total Number of Visits Planned: 8 Planned Treatment Interventions: Therapeutic exercise (36472), Neuromuscular re-education (88853), Manual therapy (72931), Therapeutic activities (64441), Self-jail management (04203), Gait Training (81617), Body Mechanics Training, Patient/Family/Careg iver Education PLAN FOR NEXT VISIT: Review, correct and progress HEP to tolerance; STM to L Posterior Hip; introduce sciatic flossing. Patient demonstrates good understanding of plan of care and treatment. The above goals and plan of care were discussed and agreed upon by patient/family. For further details regarding this patient refer to the Physical Therapy electronically documented visit dated 09/14/2024. Provider Attestation I have reviewed the treatment plan for Prashant Sheffield, PSYCHIATRIC# [id number] for the period of 09/14/24 -- 10/19/24, established on 09/14/2024. Signature certifies the need for therapy services. Normal [facility] CNTHERAPYon 09-14-2024 CNTHERAPY OT/PT/Speech Visit (PTWS) PRASHANT SHEFFIELD ([id number]) 1950 F Date Time Provider Department 09/14/24 12:15 PM MEÑO PHILLIP PTWS Date Time Provider Department Center 09/14/2024 12:15 PM [id number], COLIN PTWS Lukas Shabazz Reason for Visit: PT Eval [747] PT Discharge [752] Primary Visit Diagnosis:Acute midline low back pain without sciatica [M54.50] Allergies As of Date: 09/14/2024 Noted Allergy Reaction BETADINE (POVIDONE-IODINE) 07/09/2017 2 - Rash BUSPAR (BUSPIRONE) 09/25/2023 14 - Other: See Comments Comments: Caused anxiety and shaking: may of been serotonin syndrome with her neuro meds. CODEINE 02/07/2016 5 - Intolerance Comments: "crazy dreams" does not like to take it Date Reviewed: 08/20/2024 Reviewed by: Allie Chung MA - Fully Assessed Prescriptions as of 10/14/2024 - folic acid 1 mg tablet Take 1 tablet by mouth once daily. - alendronate (FOSAMAX) 70 mg tablet Take 1 tablet by mouth one time a week. Take with a full glass of water, on an empty stomach; do NOT lie down for 30minutes. - pramipexole (MIRAPEX) 0.5 mg tablet Take 1 tablet by mouth three times a day. Per Neuro - rasagiline (AZILECT) 0.5 mg tab Take 1 tablet by mouth once daily. [facility] - simvastatin (ZOCOR) 20 mg tablet Take 1 tablet by mouth daily at bedtime. - valsartan (DIOVAN) 160 mg tablet Take 1 tablet by mouth once daily. - Cholecalciferol, Vitamin D3, 25 mcg (1,000 unit) cap Take 1 capsule by mouth once daily. - omeprazole (PRILOSEC) 40 mg capsule Take 1 capsule by mouth once daily. - diphenhydrAMINE (BENADRYL) 25 mg capsule Take 25 mg by mouth once daily. 2 tablets 25 mg AM and 2 tablets 25 mg PM - ferrous sulfate (SLOW FE) 137 mg (45 mg iron) TbER Take 1 tablet by mouth every other day. - ascorbic acid, vitamin C, (VITAMIN C) 500 mg tablet Take 1 tablet by mouth every other day. - benztropine (COGENTIN) 2 mg tablet Take 0.5 tablets by mouth two times a day. [facility] - Melatonin 5 mg cap Take 2 capsules by mouth daily at bedtime. - furosemide (LASIX) 20 mg tablet Take 1 tablet by mouth once daily. - cyanocobalamin (VITAMIN B-12) 1,000 mcg tab Take 1 tablet by mouth once daily. - citalopram hydrobromide (CELEXA) 10 mg tablet Take 1 tablet by mouth once daily. Take with 20 mg dose for total of 30mg daily, getting from Neurology at [facility] - citalopram (CELEXA) 20 mg tablet Take 1 tablet by mouth daily at bedtime. Take with 10mg dose for total of 30mg daily. Per neurology at [facility] - estradiol (ESTRACE) 0.01 % (0.1 mg/gram) vaginal cream Use 1 g vaginally twice a week. - multivitamin tablet Take 1 tablet by mouth once daily. - CALCIUM CARBONATE/VITAMIN D3 (CALCIUM 500 + D ORAL) Take by mouth. - aspirin, enteric coated (ADULT LOW DOSE ASPIRIN) 81 mg EC tablet Take 1 tablet by mouth once daily. Meds Comments as of 02/27/2019: Cranberry tablets Insole Rounder: Therapy (PT/OT/Speech/Resp) ID: [id number] 09/14/2024 1:00 PM Author: MEÑO PHILLIP Signed by MEÑO PHILLIP PT on 09/14/2024 at 1:00 PM Document text: Program_ID:[id number] Access Code: [email or web address] URL: [email or web address] Date: 09-14-2024 Prepared By: Meño Phillip Program Notes Exercises - Supine Piriformis Stretch with Foot on Ground - 2 x daily - 7 x weekly - 2-3 sets - reps - Supine Lower Trunk Rotation - 2 x daily - 7 x weekly - 2 sets - 10 reps - Clamshell - 2 x daily - 7 x weekly - 2 sets - 10 reps -------- Normal [facility] THERAPY NTon 09-14-2024 THERAPY NT HNO ID: [id number] Author: MEÑO PHILLIP PT Service: ? Author Type: Physical Therapist Type: Therapy (PT/OT/Speech/Resp) Filed: 09/14/2024 13:00 Note Text: Program_ID:[id number] Access Code: [email or web address] URL: [email or web address] Date: 09-14-2024 Prepared By: Meño Phillip Program Notes Exercises - Supine Piriformis Stretch with Foot on Ground - 2 x daily - 7 x weekly - 2-3 sets - reps - Supine Lower Trunk Rotation - 2 x daily - 7 x weekly - 2 sets - 10 reps - Clamshell - 2 x daily - 7 x weekly - 2 sets - 10 reps Normal [facility] CNPNon 08-25-2024 CNPN Telephone (FAMWS) PRASHANT SHEFFIELD ([id number]) 1950 F Date Time Provider Department 08/25/24 EDNA UMANZOR [facility] [place] During your visit today, we recorded the following information about you: Edna Umanzor APRN.KNOCKDOWN MAN 08/25/2024 4:11 PM Signed Please let patient know her lumbar spine xr shows disc space loss or narrowing of the disc space. I would recommend PT Meera Yun MA 08/25/2024 4:17 PM Signed Message left for pt to call back for results. Deirdre Yu MA, ALICE 08/25/2024 4:56 PM Signed Pt returned call and given provider's message below with verbalized understanding. Patient agreeable and will call back to schedule PT. Allergies As of Date: 08/25/2024 Noted Allergy Reaction BETADINE (POVIDONE-IODINE) 07/09/2017 2 - Rash BUSPAR (BUSPIRONE) 09/25/2023 14 - Other: See Comments Comments: Caused anxiety and shaking: may of been serotonin syndrome with her neuro meds. CODEINE 02/07/2016 5 - Intolerance Comments: "crazy dreams" does not like to take it Date Reviewed: 08/20/2024 Reviewed by: Allie Chung MA - Fully Assessed Reason for Visit: Results [95] Primary Visit Diagnosis:Acute midline low back pain without sciatica [M54.50] Order(s):CONSULT TO PHYSICAL THERAPY [9092] Order #: [id number]: 1 FUTURE Prescriptions as of 08/25/2024 - alendronate (FOSAMAX) 70 mg tablet Take 1 tablet by mouth one time a week. Take with a full glass of water, on an empty stomach; do NOT lie down for 30minutes. - pramipexole (MIRAPEX) 0.5 mg tablet Take 1 tablet by mouth three times a day. Per Neuro - rasagiline (AZILECT) 0.5 mg tab Take 1 tablet by mouth once daily. Per Neurology at [facility] - simvastatin (ZOCOR) 20 mg tablet Take 1 tablet by mouth daily at bedtime. - valsartan (DIOVAN) 160 mg tablet Take 1 tablet by mouth once daily. - Cholecalciferol, Vitamin D3, 25 mcg (1,000 unit) cap Take 1 capsule by mouth once daily. - omeprazole (PRILOSEC) 40 mg capsule Take 1 capsule by mouth once daily. - diphenhydrAMINE (BENADRYL) 25 mg capsule Take 25 mg by mouth once daily. 2 tablets 25 mg AM and 2 tablets 25 mg PM - folic acid 1 mg tablet Take 1 tablet by mouth once daily. - ferrous sulfate (SLOW FE) 137 mg (45 mg iron) TbER Take 1 tablet by mouth every other day. - ascorbic acid, vitamin C, (VITAMIN C) 500 mg tablet Take 1 tablet by mouth every other day. - benztropine (COGENTIN) 2 mg tablet Take 0.5 tablets by mouth two times a day. Per Neurology at [facility] - Melatonin 5 mg cap Take 2 capsules by mouth daily at bedtime. - furosemide (LASIX) 20 mg tablet Take 1 tablet by mouth once daily. - cyanocobalamin (VITAMIN B-12) 1,000 mcg tab Take 1 tablet by mouth once daily. - citalopram hydrobromide (CELEXA) 10 mg tablet Take 1 tablet by mouth once daily. Take with 20 mg dose for total of 30mg daily, getting from Neurology at [facility] - citalopram (CELEXA) 20 mg tablet Take 1 tablet by mouth daily at bedtime. Take with 10mg dose for total of 30mg daily. Per neurology at [facility] - estradiol (ESTRACE) 0.01 % (0.1 mg/gram) vaginal cream Use 1 g vaginally twice a week. - multivitamin tablet Take 1 tablet by mouth once daily. - CALCIUM CARBONATE/VITAMIN D3 (CALCIUM 500 + D ORAL) Take by mouth. - aspirin, enteric coated (ADULT LOW DOSE ASPIRIN) 81 mg EC tablet Take 1 tablet by mouth once daily. 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] 12/06/2016 Medicare annual wellness visit, subsequent [Z00*06/05/2017 Neoplasm of uncertain behavior of skin of back *06/05/2017 12/06/2017 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] 07/11/2017 Elevated hemoglobin A1c [R73.09] 12/01/2018 Memory loss [R41.3] 06/01/2019 Atrophic vaginitis [N95.2] 06/09/2019 Medication management [Z79.899] 12/09/2019 Osteopenia, senile [M85.80] 12/15/2019 Stage 3a chronic kidney disease (HCC) [N18.31] 01/16/2021 Falls frequently [R29.6] 07/20/2021 Low serum vitamin B12 [E53.8] 02/07/2022 Advance directive discussed with patient [Z71.8*08/13/2022 Anemia [D64.9] 02/11/[address] [Z78.9] 02/12/2023 Mobility impaired [Z74.09] 07/25/2023 Driving safety issue [Z91.89] 07/25/2023 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 [facility] PRASHANT SHEFFIELD ([id number]) 1950 F Date Time Provider Department 08/24/24 EZ SOLITARIO [facility] [place] During your visit today, we recorded the following information about you: Mary Garza RN 08/24/2024 10:06 AM Signed Patient calls to check on results of x-rays from last week. Aware that x-rays are still in process and will be contacted once received. Mary Garza RN Allergies As of Date: 08/24/2024 Noted Allergy Reaction BETADINE (POVIDONE-IODINE) 07/09/2017 2 - Rash BUSPAR (BUSPIRONE) 09/25/2023 14 - Other: See Comments Comments: Caused anxiety and shaking: may of been serotonin syndrome with her neuro meds. CODEINE 02/07/2016 5 - Intolerance Comments: "crazy dreams" does not like to take it Date Reviewed: 08/20/2024 Reviewed by: Allie Chung MA - Fully Assessed Reason for Visit: Results [95] Prescriptions as of 08/24/2024 - alendronate (FOSAMAX) 70 mg tablet Take 1 tablet by mouth one time a week. Take with a full glass of water, on an empty stomach; do NOT lie down for 30minutes. - pramipexole (MIRAPEX) 0.5 mg tablet Take 1 tablet by mouth three times a day. Per Neuro - rasagiline (AZILECT) 0.5 mg tab Take 1 tablet by mouth once daily. Per Neurology at [facility] - simvastatin (ZOCOR) 20 mg tablet Take 1 tablet by mouth daily at bedtime. - valsartan (DIOVAN) 160 mg tablet Take 1 tablet by mouth once daily. - Cholecalciferol, Vitamin D3, 25 mcg (1,000 unit) cap Take 1 capsule by mouth once daily. - omeprazole (PRILOSEC) 40 mg capsule Take 1 capsule by mouth once daily. - diphenhydrAMINE (BENADRYL) 25 mg capsule Take 25 mg by mouth once daily. 2 tablets 25 mg AM and 2 tablets 25 mg PM - folic acid 1 mg tablet Take 1 tablet by mouth once daily. - ferrous sulfate (SLOW FE) 137 mg (45 mg iron) TbER Take 1 tablet by mouth every other day. - ascorbic acid, vitamin C, (VITAMIN C) 500 mg tablet Take 1 tablet by mouth every other day. - benztropine (COGENTIN) 2 mg tablet Take 0.5 tablets by mouth two times a day. Per Neurology at [facility] - Melatonin 5 mg cap Take 2 capsules by mouth daily at bedtime. - furosemide (LASIX) 20 mg tablet Take 1 tablet by mouth once daily. - cyanocobalamin (VITAMIN B-12) 1,000 mcg tab Take 1 tablet by mouth once daily. - citalopram hydrobromide (CELEXA) 10 mg tablet Take 1 tablet by mouth once daily. Take with 20 mg dose for total of 30mg daily, getting from Neurology at [facility] - citalopram (CELEXA) 20 mg tablet Take 1 tablet by mouth daily at bedtime. Take with 10mg dose for total of 30mg daily. Per neurology at [facility] - estradiol (ESTRACE) 0.01 % (0.1 mg/gram) vaginal cream Use 1 g vaginally twice a week. - multivitamin tablet Take 1 tablet by mouth once daily. - CALCIUM CARBONATE/VITAMIN D3 (CALCIUM 500 + D ORAL) Take by mouth. - aspirin, enteric coated (ADULT LOW DOSE ASPIRIN) 81 mg EC tablet Take 1 tablet by mouth once daily. 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] 12/06/2016 Medicare annual wellness visit, subsequent [Z00*06/05/2017 Neoplasm of uncertain behavior of skin of back *06/05/2017 12/06/2017 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] 07/11/2017 Elevated hemoglobin A1c [R73.09] 12/01/2018 Memory loss [R41.3] 06/01/2019 Atrophic vaginitis [N95.2] 06/09/2019 Medication management [Z79.899] 12/09/2019 Osteopenia, senile [M85.80] 12/15/2019 Stage 3a chronic kidney disease (HCC) [N18.31] 01/16/2021 Falls frequently [R29.6] 07/20/2021 Low serum vitamin B12 [E53.8] 02/07/2022 Advance directive discussed with patient [Z71.8*08/13/2022 Anemia [D64.9] 02/11/[address] [Z78.9] 02/12/2023 Mobility impaired [Z74.09] 07/25/2023 Driving safety issue [Z91.89] 07/25/2023 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] 09/25/2023 09/25/2023 Iron deficiency anemia [D50.9] 10/04/2023 Hypertensive heart and kidney disease without h*12/26/2023 Dementia in other diseases classified elsewhere*07/08/2024 Hypertensive heart and chronic kidney disease w*08/20/2024 Encounter Status:Closed by MARY GARZA on 08/24/24 [facility] CNOVon 08-20-2024 CNOV Office Visit (CORIPWS) PRASHANT SHEFFIELD ([id number]) 1950 F Date Time Provider Department 08/20/24 11:20 AM EDNA UMANZOR During your visit today, we recorded the following information about you: Pulse Respiration Blood pressure Weight 62/minute 14/minute 131/73 59.4 kg Edna Umanzor APRN.KNOCKDOWN MAN 08/20/2024 11:29 AM Signed Chief Complaint Patient presents with: Follow Up: Leg pain HPI Prashant Sheffield is a 74 year old female who presents here today for Above Complaints.. Patient presents for follow up for left leg pain. Patient reports no improvement since starting medication. Tylenol has decreased pain on occasion. Patient reports pain starts in the hip and extend the entire length of the leg. Pain improves with movement and worsens with prolonged sitting. Past medical history, appointments, medications, allergies reviewed. Previous Medical History PAST MEDICAL HISTORY Diagnosis Date Alcohol use 02/07/2016 1-2 drinks a day. 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, mild, with anxiety (HCC) 07/08/2024 Dry mouth 03/26/2016 Elevated hemoglobin A1c 12/01/2018 Essential hypertension 02/07/2016 Family history of colon cancer in mother 02/14/2016 Fibroid uterus 02/07/2016 Had one and never needed surgery Frequent falls 07/20/2021 Patient declines Physical Therapy as of 07/20/2021 GERD without esophagitis 02/07/2016 Hypertensive heart and chronic kidney disease with heart failure and stage 1 through stage 4 chronic kidney disease, or unspecified chronic kidney disease (HCC) 12/26/2023 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 Mixed hyperlipidemia 02/07/2016 Mobility impaired 07/25/2023 Osteopenia, senile 12/15/2019 DXA: 11/2019 Parkinson's disease (HCC) 02/07/[address] 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 Neuro feels may be anxiety related. No recurrence since (last episode was 06/2015) Previous Surgical History PAST SURGICAL HISTORY Procedure Laterality Date COLONOSCOPY 2005 COLONOSCOPY 02/20/2016 Dr. 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 STRESS ECG TREADMILL 12/23/2019 negative Family History FAMILY HISTORY Problem Relation Age of Onset Cancer Father 25 in groin area, Cervical Cancer Maternal Grandmother Colon Cancer Paternal Grandmother Diabetes Mother Hypertension Mother Patient Allergies ALLERGIES Allergen Reactions Betadine [Povidone-* Rash Buspar [Buspirone] Other: See Comments Caused anxiety and shaking: may of been serotonin syndrome with her neuro meds. Codeine Intolerance "crazy dreams" does not like to take it Current Medications Current Outpatient Medications on File Prior to Visit Medication Sig alendronate (FOSAMAX) 70 mg tablet Take 1 tablet by mouth one time a week. Take with a full glass of water, on an empty stomach; do NOT lie down for 30minutes. pramipexole (MIRAPEX) 0.5 mg tablet Take 1 tablet by mouth three times a day. Per Neuro rasagiline (AZILECT) 0.5 mg tab Take 1 tablet by mouth once daily. Per [facility]rology at [facility] simvastatin (ZOCOR) 20 mg tablet Take 1 tablet by mouth daily at bedtime. valsartan (DIOVAN) 160 mg tablet Take 1 tablet by mouth once daily. Cholecalciferol, Vitamin D3, 25 mcg (1,000 unit) cap Take 1 capsule by mouth once daily. baclofen 5 mg tablet Take 0.5 tablets by mouth two times a day. omeprazole (PRILOSEC) 40 mg capsule Take 1 capsule by mouth once daily. diphenhydrAMINE (BENADRYL) 25 mg capsule Take 25 mg by mouth once daily. 2 tablets 25 mg AM and 2 tablets 25 mg PM folic acid 1 mg tablet Take 1 tablet by mouth once daily. ferrous sulfate (SLOW FE) 137 mg (45 mg iron) TbER Take 1 tablet by mouth every other day. ascorbic acid, vitamin C, (VITAMIN C) 500 mg tablet Take 1 tablet by mouth every other day. benztropine (COGENTIN) 2 mg tablet Take 0.5 tablets by mouth two times a day. Per Neurology at [facility] Melatonin 5 mg cap Take 2 capsules by mouth daily at bedtime. furosemide (LASIX) 20 mg tablet Take 1 tablet by mouth once daily. (Patient taking differently: Take 20 mg by mouth as needed.) cy (more content not included)... Normal [facility] XR HIP 3V PELV+ AP/LAT LTon 08-20-2024 XR HIP 3V PELV+ AP/LAT LT * * *Final Report* * * DATE OF EXAM: Aug 20 2024 12:02PM [id number] - XR HIP 3V PELV+ AP/LAT LT / PROCEDURE REASON: Left leg pain * * * * Physician Interpretation * * * * EXAMINATION: XR HIP 3V PELV+ AP/LAT LT CLINICAL HISTORY: Left leg pain Technique: XR HIP 3V PELV+ AP/LAT LT -- LEFT with 3 views on 3 images Comparison: None RESULT: No acute fracture or dislocation. Joint spaces are maintained. IMPRESSION: No acute osseous abnormality Tamper Operator: GO Transcribe Date/Time: Aug 24 2024 3:11P Dictated by : DAILY LUCAS MD This examination was interpreted and the report reviewed and electronically signed by: DAILY LUCAS MD on Aug 24 2024 3:11PM EST [id number] Normal [facility] XR LUMBAR PARS 4V AP/LAT/OBL X2on 08-20-2024 XR LUMBAR PARS 4V AP/LAT/OBL X2 * * *Final Report* * * DATE OF EXAM: Aug 20 2024 12:02PM [id number] - XR LUMBAR PARS 4V AP/LAT/OBL X2 / PROCEDURE REASON: Left leg pain * * * * Physician Interpretation * * * * EXAMINATION / TECHNIQUE: XR LUMBAR PARS 4V AP/LAT/OBL X2 HISTORY: Chronic lower back pain with left hip pain. No known injury. Left leg pain COMPARISON: CT abdomen/pelvis dated 01/02/2019. RESULT: Counting reference: Lumbosacral junction. For the purposes of this report, L4-5 is considered the level of the iliac crest and assume there are 5 lumbar-type vertebrae. Anatomic variant: None. There is straightening of the lumbar lordosis. Vertebral body heights and sagittal alignment are maintained. Severe multilevel disc loss. Multilevel lower lumbar facet hypertrophy. IMPRESSION: Degenerative changes as described. Tamper Operator: ROBERTB Transcribe Date/Time: Aug 24 2024 4:06P Dictated by : EZEKIEL DAVILA MD This examination was interpreted and the report reviewed and electronically signed by: EZEKIEL DAVILA MD on Aug 24 2024 4:07PM EST [id number] Normal [facility] CNCOon 08-07-2024 CNCO Letter Text Normal [facility] CNPNon 08-07-2024 [facility] PRASH[facility] SHEFFIELD ([id number]) 1950 F Date Time Provider Department 08/07[facility]24 [facility] During your visit today, we recorded the following information about you: Deirdre Oliva RN 08/07/2024 1:57 PM Signed Patient reports she received a letter today for jury duty, and has 5 days to return to them. Asking if pcp can write a letter excusing her for jury duty d/t Parkinsons. Please phone patient for berry picker: [phone] Ez Solitario MD 08/07/2024 3:13 PM Signed Letter Patti Smiley MA 08/07/2024 3:35 PM Signed Letter given to provider to sign. JOHANNA Prado Jeffrey A, MD 08/07/2024 4:33 PM Signed Letter Patti Smiley MA 08/07/2024 4:45 PM Signed Left detailed message for patient,. Letter taken to medical records. Patti Tomas MA Allergies As of Date: 08/07/2024 Noted Allergy Reaction BETADINE (POVIDONE-IODINE) 07/09/2017 2 - Rash BUSPAR (BUSPIRONE) 09/25/2023 14 - Other: See Comments Comments: Caused anxiety and shaking: may of been serotonin syndrome with her neuro meds. CODEINE 02/07/2016 5 - Intolerance Comments: "crazy dreams" does not like to take it Date Reviewed: 07/08/2024 Reviewed by: Ez Solitario MD - Fully Assessed Reason for Visit: Jury duty letter [Other] Prescriptions as of 08/07/2024 - pramipexole (MIRAPEX) 0.5 mg tablet Take 1 tablet by mouth three times a day. Per Neuro - rasagiline (AZILECT) 0.5 mg tab Take 1 tablet by mouth once daily. Per [facility] at [facility] - simvastatin (ZOCOR) 20 mg tablet Take 1 tablet by mouth daily at bedtime. - valsartan (DIOVAN) 160 mg tablet Take 1 tablet by mouth once daily. - Cholecalciferol, Vitamin D3, 25 mcg (1,000 unit) cap Take 1 capsule by mouth once daily. - baclofen 5 mg tablet Take 0.5 tablets by mouth two times a day. - omeprazole (PRILOSEC) 40 mg capsule Take 1 capsule by mouth once daily. - alendronate (FOSAMAX) 70 mg tablet Take 1 tablet by mouth one time a week. Take with a full glass of water, on an empty stomach; do NOT lie down for 30minutes. - diphenhydrAMINE (BENADRYL) 25 mg capsule Take 25 mg by mouth once daily. 2 tablets 25 mg AM and 2 tablets 25 mg PM - folic acid 1 mg tablet Take 1 tablet by mouth once daily. - ferrous sulfate (SLOW FE) 137 mg (45 mg iron) TbER Take 1 tablet by mouth every other day. - ascorbic acid, vitamin C, (VITAMIN C) 500 mg tablet Take 1 tablet by mouth every other day. - benztropine (COGENTIN) 2 mg tablet Take 0.5 tablets by mouth two times a day. Per Neurology at [facility] - Melatonin 5 mg cap Take 2 capsules by mouth daily at bedtime. - furosemide (LASIX) 20 mg tablet Take 1 tablet by mouth once daily. - cyanocobalamin (VITAMIN B-12) 1,000 mcg tab Take 1 tablet by mouth once daily. - citalopram hydrobromide (CELEXA) 10 mg tablet Take 1 tablet by mouth once daily. Take with 20 mg dose for total of 30mg daily, getting from Neurology at [facility] - citalopram (CELEXA) 20 mg tablet Take 1 tablet by mouth daily at bedtime. Take with 10mg dose for total of 30mg daily. Per neurology at [facility] - estradiol (ESTRACE) 0.01 % (0.1 mg/gram) vaginal cream Use 1 g vaginally twice a week. - multivitamin tablet Take 1 tablet by mouth once daily. - CALCIUM CARBONATE/VITAMIN D3 (CALCIUM 500 + D ORAL) Take by mouth. - aspirin, enteric coated (ADULT LOW DOSE ASPIRIN) 81 mg EC tablet Take 1 tablet by mouth once daily. 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] 12/06/2016 Medicare annual wellness visit, subsequent [Z00*06/05/2017 Neoplasm of uncertain behavior of skin of back *06/05/2017 12/06/2017 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] 07/11/2017 Elevated hemoglobin A1c [R73.09] 12/01/2018 Memory loss [R41.3] 06/01/2019 Atrophic vaginitis [N95.2] 06/09/2019 Medication management [Z79.899] 12/09/2019 Osteopenia, senile [M85.80] 12/15/2019 Stage 3a chronic kidney disease (HCC) [N18.31] 01/16/2021 Falls frequently [R29.6] 07/20/2021 Low serum vitamin B12 [E53.8] 02/07/2022 Advance directive discussed with patient [Z71.8*08/13/2022 Anemia [D64.9] 02/11/[address] [Z78.9] 02/12/2023 Mobility impaired [Z74.09] 07/25/2023 Driving safety issue [Z91.89] 07/25/2023 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 Normal [facility] MRI BRAIN W/ + W/O CONTRASTo n 02-18-2024 MRI BRAIN W/ + W/O CONTRAST ORIGINAL EXAMINATION: MRI OF THE BRAIN WITHOUT AND WITH CONTRAST 02/17/2024 3:30 pm TECHNIQUE: Multiplanar multisequence MRI of the head/brain was performed without and with the administration of intravenous contrast. COMPARISON: None. HISTORY: ORDERING SYSTEM PROVIDED HISTORY: Reason for Exam: Headache, unspecified FINDINGS: INTRACRANIAL STRUCTURES/VENTRICLE S: There is no abnormal restricted diffusion or susceptibility artifact. No mass effect or midline shift. No evidence of an acute intracranial hemorrhage. The ventricles and sulci are normal in size and configuration. The sellar/suprasellar regions appear unremarkable. The normal signal voids within the major intracranial vessels appear maintained. Scattered white matter T2/FLAIR are nonspecific but statistically most consistent with mild chronic microvascular angiopathy. The ventricles are mildly enlarged with commensurate enlargement of the sulci most consistent with mild age-related volume loss. No abnormal focus of enhancement is seen within the brain. ORBITS: The visualized portion of the orbits demonstrate no acute abnormality. SINUSES: Complete opacification of the left maxillary sinus with T1 isointense/T2 hypointense signal likely representing inspissated secretions. Scattered mucosal thickening of the ethmoid air cells. Minimal opacification of the bilateral mastoid air cells. BONES/SOFT TISSUES: The bone marrow signal intensity appears normal. The soft tissues demonstrate no acute abnormality. IMPRESSION: No acute intracranial abnormality. Mild chronic microvascular angiopathy and volume loss. Chronic left maxillary sinusitis. I have personally reviewed the images of this examination and agree with the resident's findings and interpretations. Interpreted by: Juan R Moura MD Preliminary Report By: Gama Tracy Electronically signed By Juan R Moura MD Dictated Date: 02/18/2024 8:56:01 AM Prelim Date: 02/18/2024 9:36:23 AM Sign Date: 02/18/2024 9:36:23 AM Ordering Provider: [facility] ([place]) CBC W Auto Differential pane l (Bld)on 09-25-2023 Basophils (Bld) [#/Vol] 0.05 10*3/uL <0.11 k/uL [facility] Basophils/100 WBC (Bld) 0.8 % [facility] Differential cell count method Nom (Bld) Auto [facility] Eosinophils (Bld) [#/Vol] 0.13 10*3/uL <0.46 k/uL [facility] Eosinophils/100 WBC (Bld) 2.0 % [facility] Erythrocyte distribution width (RBC) [Ratio] 14.6 % 11.5 - 15.0 % [facility] Hematocrit (Bld) [Volume fraction] 31.5 % Low 36.0 - 46.0 % [facility] Hemoglobin (Bld) [Mass/Vol] 9.7 g/dL Low 11.5 - 15.5 g/dL [facility] Immature granulocytes (Bld) [#/Vol] <0.10 k/uL [facility] Immature granulocytes/100 WBC (Bld) 0.2 % [facility] Lymphocytes (Bld) [#/Vol] 1.71 10*3/uL 1.00 - 4.00 k/uL [facility] Lymphocytes/100 WBC (Bld) 26.8 % [facility] MCH (RBC) [Entitic mass] 29.0 pg 26. 0 - 34.0 pg [facility] MCHC (RBC) [Mass/Vol] 30.8 g/dL 30.5 - 36.0 g/dL [facility] MCV (RBC) [Entitic vol] 94.0 fL 80.0 - 100.0 fL [facility] Monocytes (Bld) [#/Vol] 0.49 10*3/uL <0.87 k/uL [facility] Monocytes/100 WBC (Bld) 7.7 % [facility] Neutrophils (Bld) [#/Vol] 4.00 10*3/uL 1.45 - 7.50 k/uL [facility] Neutrophils/100 WBC (Bld) 62.5 % [facility] Nucleated RBC (Bld) [#/Vol] <0.01 k/uL [facility] Nucleated RBC/100 WBC (Bld) [Ratio] 0.0 /100 WBC [facility] Platelet mean volume (Bld) [Entitic vol] 11.2 fL 9.0 - 12.7 fL [facility] Platelets (Bld) [#/Vol] 297 10*3/uL 150 - 400 k/uL [facility] RBC (Bld) [#/Vol] 3.35 10*6/uL Low 3.90 - 5.2 0 m/uL [facility] WBC (Bld) [#/Vol] 6.39 10*3/uL 3.70 - 11. 00 k/uL [facility] Absolute lymphocyte countOrd ered By: Ishaan Olson on 08-06-2023 Lymphocytes Auto (Unsp spec) [#/Vol] 1.33 10*3/uL 0.83-4.51 [facility] Basophil percentageOrdered B y: Ishaan Olson on 08-06-2023 Basophils/100 WBC (Bld) 0.3 % 0-1 [facility] Chloride [Moles/Vol] 112 mmol/L 98-107 [facility] Eosinophils/100 WBC (Bld) 3.2 % 0-5 [facility] Glucose [Mass/Vol] 103 mg/dL 74-[facility] on above: Fasting Glucose resu lt from 100 to 125 mg/dL suggests IMPAIRED HOMEOSTASIS per A.D.A. criteria. Neutrophils (Bld) [#/Vol] 4.5 10*3/uL 2.0-7.7 [facility] Neutrophils/100 WBC (Bld) 66.5 % 47-70 [facility] Potassium [Moles/Vol] 3.5 mmol/L 3.5-5.1 [facility] Sodium [Moles/Vol] 140 mmol/L 136-[address] [facility] WBC (Bld) [#/Vol] 6.8 10*3/uL 4.4-11.[address] [facility] Blood erythrocytes count (nu mber/volume)Ordered By: Ishaan Olson on 08-06-2023 RBC (Bld) [#/Vol] 3.18 10*6/uL 4.2-5.4 [facility] Blood hemoglobin measurement (mass/volume)Ordered By: Ishaan Olson on 08-06-2023 Hemoglobin (Bld) [Mass/Vol] 9.1 g/dL 12.0-15.0 [facility] Blood lymphocytes/100 leukoc ytesOrdered By: Ishaan Olson on 08-06-2023 Lymphocytes/100 WBC (Bld) 19.4 % 19-41 [facility] Blood monocytes/100 leukocyt esOrdered By: Ishaan Olson on 08-06-2023 Monocytes/100 WBC (Bld) 10.2 % 0-10 [facility] Blood platelet mean volumeOr dered By: Ishaan Olson on 08-06-2023 Platelet mean volume (Bld) [Entitic vol] 10.1 fL 6.2-12.0 [facility] Determination of erythrocyte mean corpuscular volume (MCV)Ordered By: Ishaan Olson on 08-06-2023 MCV (RBC) [Entitic vol] 88.4 fL 81-99 [facility] Hematocrit Auto (Bld) [Volum e fraction]Ordered By: Ishaan Olson on 08-06-2023 Hematocrit (Bld) [Volume fraction] 28.1 % 37-47 [facility] Laboratory - Chemistry and C hemistry - challengeOrdered By: Ishaan Olson on 08-06-2023 CO2 [Moles/Vol] 23.0 mmol/L 21.0-32.0 [facility] Urea nitrogen/Creatinine [Mass ratio] 24.5 mg/mg 10-20 [facility] Laboratory - Hematology and Cell countsOrdered By: Ishaan Olson on 08-06-2023 Erythrocyte distribution width (RBC) [Entitic vol] 45.1 fL 35.1-43.9 [facility] Erythrocyte distribution width (RBC) [Ratio] 13.9 % 11.6-14.6 [facility] Immature granulocytes/100 WBC (Bld) 0.400 % 0.0-0.9 [facility] Comment on above: IG% - Immature Granu locytes (promyelocytes, myelocytes and metamyelocytes) > 1% indicates that a LEFT SHIFT is Present. MCH (RBC) [Entitic mass] 28.6 pg 27.0-32.0 [facility] Nucleated RBC/100 WBC (Bld) [Ratio] 0 % 0-5 [facility] MCHC Auto (RBC) [Mass/Vol]Or dered By: Ishaan Olson on 08-06-2023 MCHC (RBC) [Mass/Vol] 32.4 g/dL 32-36 [facility] No Panel InformationOrdered By: Ishaan Olson on 08-06-2023 Estimated Creatinine Clearance Calc 40.22 ml/min [facility] Estimated GFR (MDRD) Amer 100 mL/min >60 [facility] Comment on above: GFR Calc Estimated GFR (MDRD) Non-Af Amer 82 mL/min >60 [facility] Comment on above: Non- GFR Calc Platelets bldOrdered By: Lee Olson on 08-06-2023 Platelets (Bld) [#/Vol] 279 10*3/uL 150-450 [facility] Serum or plasma calcium carlos urement (mass/volume)Ordered By: Ishaan Olson on 08-06-2023 Calcium [Mass/Vol] 8.0 mg/dL 8.5-10.[address] [facility] Serum or plasma creatinine m easurement (mass/volume)Ordered By: Ishaan Olson on 08-06-2023 Creatinine [Mass/Vol] 0.74 mg/dL 0.55-1.02 [facility] Comment on above: The validity of the calculated GFR & GFRAA in patients over 70 years has not been determined. Clinical correlation is essential. Serum or plasma urea nitroge n measurement (mass/volume)Ordered By: Ishaan Olson on 08-06-2023 Urea nitrogen [Mass/Vol] 18 mg/dL 7-18 [facility] Thin prep Papanicolaou smear with manual screeningOrdered By: Ishaan Olson on 08-06-2023 Thin prep Papanicolaou smear with manual screening 5 5-15 [facility] Amorphous sediment detection in urine sediment by light microscopyOrdered By: Rain Bustos on 08-05-2023 Amorphous sediment LM Ql (Urine sed) 1+ URATE [facility] Basophil percentageOrdered B y: Rain Bustos on 08-05-2023 Basophil percentage 25-50 SEEN /hpf 0-5 [facility] Bilirubin Test strip Ql (U)O rdered By: Rain Bustos on 08-05-2023 Bilirubin Ql (U) 1 mg/dL Negative [facility] Comment on above: COLOR OF URINE MAY A FFECT DIPSTICK RESULTS. Ketones Test strip Ql (U)Ord ered By: Rain Bustos on 08-05-2023 Ketones Ql (U) 15 mg/dl Negative [facility] Mucus LM Ql (Urine sed)Order ed By: Rain Bustos on 08-05-2023 Mucus Ql (Urine sed) 0 SEEN /hpf [facility] Nitrite Test strip Ql (U)Ord ered By: Rain Bustos on 08-05-2023 Nitrite Ql (U) Positive Negative [facility] Protein Test strip Ql (U)Ord ered By: Rain Bustos on 08-05-2023 Protein Ql (U) 30 mg/dl Negative [facility] Squamous epithelial cells de tection in urine sediment by light microscopyOrdered By: Rain Bustos on 08-05-2023 Epithelial cells.squamous LM Ql (Urine sed) 0-5 SEEN /hpf 5-10 [facility] Urine blood detectionOrdered By: Rain Bustos on 08-05-2023 RBC Ql (U) 10 /ul Negative [facility] RBC Ql (U) 0-5 SEEN /hpf 0-5 [facility] Urine clarityOrdered By: Jessi Bustos on 08-05-2023 Clarity (U) Sl. Cloudy Clear [facility] Urine color determinationOrd ered By: Rain Bustos on 08-05-2023 Color (U) Yellow Yellow [facility] Urine glucose detectionOrder ed By: Rain Bustos on 08-05-2023 Glucose Ql (U) Normal mg/dl Normal [facility] Urine leukocyte esterase det ection by dipstickOrdered By: Rain Bustos on 08-05-2023 Leukocyte esterase Test strip Ql (U) 500 /ul Negative [facility] Urine pHOrdered By: Rain pearl on 08-05-2023 pH (U) 5.0 [pH] 5.0 - 8.0 [facility] Urine sediment bacteria coun t by microscopy (number/high power field)Ordered By: Rain Bustos on 08-05-2023 Bacteria LM.HPF (Urine sed) [#/Area] 3 /[HPF] None Seen [facility] Urine specific gravity measu rementOrdered By: Rain Bustos on 08-05-2023 Specific gravity (U) [Rel density] 1.030 1.002-1.030 [facility] Urobilinogen Auto test strip Ql (U)Ordered By: Rain Bustos on 08-05-2023 Urobilinogen Ql (U) 1 mg/dl Normal [facility] Review by pathologistOrdered By: Ishaan Olson on 08-04-2023 Pathologist review Collin (Unsp spec) [Interp] Reviewed [facility] Comment on above: Previous reported re sult: Nicole ferraro Edited by: RGOOD on 08/05/23:1342Normocytic anemia.Clinical correlation necessary.Emmanuel Gracia M.D. 08/05/23 AMENDED REPORT 08/05/23 1342 PATH REV previously reported as: Nicole ferraro Absolute lymphocyte countOrd ered By: Vladislav Crawford on 08-01-2023 Lymphocytes Auto (Unsp spec) [#/Vol] 0.61 10*3/uL 0.83-4.51 [facility] Basophil percentageOrdered B y: Vladislav Crawford on 08-01-2023 Basophils/100 WBC (Bld) 0.2 % 0-1 [facility] Bilirubin [Mass/Vol] 0.50 mg/dL 0.20-1.00 [facility] Comment on above: For patients on eltr ombopag therapy, use of Dimension [place] TBIL is not recommended. Chloride [Moles/Vol] 105 mmol/L 98-107 [facility] Eosinophils/100 WBC (Bld) 0.0 % 0-5 [facility] Glucose [Mass/Vol] 130 mg/dL 74-[address] [facility] Comment on above: Fasting Glucose resu lt greater than or equal to 126 mg/dL suggests DIABETES MELLITUS per A.D.A. criteria. Neutrophils (Bld) [#/Vol] 11.1 10*3/uL 2.0-7.7 [facility] Neutrophils/100 WBC (Bld) 92.2 % 47-70 [facility] Potassium [Moles/Vol] 3.8 mmol/L 3.5-5.1 [facility] Protein [Mass/Vol] 7.5 g/dL 6.4-8.[address] [facility] Sodium [Moles/Vol] 136 mmol/L 136-[address] [facility] WBC (Bld) [#/Vol] 12.1 10*3/uL 4.4-11.0 [facility] Blood erythrocytes count (nu mber/volume)Ordered By: Vladislav Crawford on 08-01-2023 RBC (Bld) [#/Vol] 4.10 10*6/uL 4.2-5.4 [facility] Blood hemoglobin measurement (mass/volume)Ordered By: Vladislav Crawford on 08-01-2023 Hemoglobin (Bld) [Mass/Vol] 11.5 g/dL 12.0-15.0 [facility] Blood lymphocytes/100 leukoc ytesOrdered By: Vladislav Crawford on 08-01-2023 Lymphocytes/100 WBC (Bld) 5.1 % 19-41 [facility] [place] Blood monocytes/100 leukocyt esOrdered By: Vladislav Crawford on 08-01-2023 Monocytes/100 WBC (Bld) 2.1 % 0-10 [facility] Blood platelet mean volumeOr dered By: Vladislav Crawford on 08-01-2023 Platelet mean volume (Bld) [Entitic vol] 11.4 fL 6.2-12.0 [facility] [place] Determination of erythrocyte mean corpuscular volume (MCV)Ordered By: Vladislav Crawford on 08-01-2023 MCV (RBC) [Entitic vol] 88.8 fL 81-99 [facility] Hematocrit Auto (Bld) [Volum e fraction]Ordered By: Vladislav Crawford on 08-01-2023 Hematocrit (Bld) [Volume fraction] 36.4 % 37-47 [facility] INR in Blood by Coagulation assayOrdered By: Vladislav Crawford on 08-01-2023 INR Coag (Bld) [Relative time] 1.1 {INR} [facility] Laboratory - Chemistry and C hemistry - challengeOrdered By: Vladislav Crawford on 08-01-2023 ALP [Catalytic activity/Vol] 79 U/L 45-117 [facility] ALT [Catalytic activity/Vol] 25 U/L 13-56 [facility] CO2 [Moles/Vol] 25.0 mmol/L 21.0-32.0 [facility] Globulin (S) [Mass/Vol] 3.7 g/dL 2.2-4.2 [facility] Lipase [Catalytic activity/Vol] 23 U/L 13-75 [facility] Comment on above: Please note:LIPASE r evised reference range effective 23. New Lipase methodology. Expected to produce lower values than the previous assay method. NEW Reference Range: 13 - 75 U/L Urea nitrogen/Creatinine [Mass ratio] 16.7 mg/mg 10-20 [facility] Laboratory - CoagulationOrde red By: Vladislav Crawford on 08-01-2023 aPTT Coag (Bld) [Time] 25.8 s 24.1-36.2 [facility] Coag (PPP) [Time] 14.0 s 11.7-14.9 [facility] Laboratory - Hematology and Cell countsOrdered By: Vladislav Crawford on 08-01-2023 Erythrocyte distribution width (RBC) [Entitic vol] 45.0 fL 35.1-43.9 [facility] Erythrocyte distribution width (RBC) [Ratio] 13.8 % 11.6-14.6 [facility] Immature granulocytes/100 WBC (Bld) 0.400 % 0.0-0.9 [facility] Comment on above: IG% - Immature Granu locytes (promyelocytes, myelocytes and metamyelocytes) > 1% indicates that a LEFT SHIFT is Present. MCH (RBC) [Entitic mass] 28.0 pg 27.0-32.0 [facility] Nucleated RBC/100 WBC (Bld) [Ratio] 0 % 0-5 [facility] MCHC Auto (RBC) [Mass/Vol]Or dered By: Vladislav Crawford on 08-01-2023 MCHC (RBC) [Mass/Vol] 31.6 g/dL 32-36 [facility] No Panel InformationOrdered By: Vladislav Crawford on 08-01-2023 Estimated GFR (MDRD) Amer 60 mL/min >60 [facility] Comment on above: GFR Calc Estimated GFR (MDRD) Non-Af Amer 50 mL/min >60 [facility] Comment on above: Non- GFR Calc Platelets bldOrdered By: Eliseo Crawford on 08-01-2023 Platelets (Bld) [#/Vol] 261 10*3/uL 150-450 [facility] Serum or plasma albumin carlos urement (mass/volume)Ordered By: Vladislav Crawford on 08-01-2023 Albumin [Mass/Vol] 3.8 g/dL 3.2-5.[address] [facility] Serum or plasma albumin/glob ulin mass ratioOrdered By: Vladislav Crawford on 08-01-2023 Albumin/Globulin [Mass ratio] 1.0 {ratio} 0.9-2.4 [facility] Serum or plasma calcium carlos urement (mass/volume)Ordered By: Vladislav Crawford on 08-01-2023 Calcium [Mass/Vol] 9.7 mg/dL 8.5-10.[address] [facility] Serum or plasma creatinine m easurement (mass/volume)Ordered By: Vladislav Crawford on 08-01-2023 Creatinine [Mass/Vol] 1.14 mg/dL 0.55-1.02 [facility] Comment on above: The validity of the calculated GFR & GFRAA in patients over 70 years has not been determined. Clinical correlation is essential. Serum or plasma urea nitroge n measurement (mass/volume)Ordered By: Vladislav Crawford on 08-01-2023 Urea nitrogen [Mass/Vol] 19 mg/dL 7-18 [facility] Thin prep Papanicolaou smear with manual screeningOrdered By: Vladislav Crawford on 08-01-2023 Thin prep Papanicolaou smear with manual screening 14 U/L 15-37 [facility] Thin prep Papanicolaou smear with manual screening 6 5-15 [facility] Absolute lymphocyte countOrd ered By: Milton Iglesias on 07-28-2023 Lymphocytes Auto (Unsp spec) [#/Vol] 2.09 10*3/uL 0.83-4.51 [facility] Basophil percentageOrdered B y: Milton Iglesias on 07-28-2023 Basophils/100 WBC (Bld) 0.4 % 0-1 [facility] Chloride [Moles/Vol] 107 mmol/L 98-107 [facility] Eosinophils/100 WBC (Bld) 1.4 % 0-5 [facility] Glucose [Mass/Vol] 108 mg/dL 74-[address] [facility] Comment on above: Fasting Glucose resu lt from 100 to 125 mg/dL suggests IMPAIRED HOMEOSTASIS per A.D.A. criteria. Neutrophils (Bld) [#/Vol] 5.0 10*3/uL 2.0-7.7 [facility] Neutrophils/100 WBC (Bld) 62.2 % 47-70 [facility] Potassium [Moles/Vol] 4.0 mmol/L 3.5-5.1 [facility] Sodium [Moles/Vol] 137 mmol/L 136-[address] [facility] WBC (Bld) [#/Vol] 8.1 10*3/uL 4.4-11.[address] [facility] Blood erythrocytes count (nu mber/volume)Ordered By: Milton Iglesias on 07-28-2023 RBC (Bld) [#/Vol] 3.79 10*6/uL 4.2-5.4 [facility] Blood hemoglobin measurement (mass/volume)Ordered By: Milton Iglesias on 07-28-2023 Hemoglobin (Bld) [Mass/Vol] 10.7 g/dL 12.0-15.0 [facility] Blood lymphocytes/100 leukoc ytesOrdered By: Milton Iglesias on 07-28-2023 Lymphocytes/100 WBC (Bld) 26.0 % 19-41 [facility] Blood monocytes/100 leukocyt esOrdered By: Milton Iglesias on 07-28-2023 Monocytes/100 WBC (Bld) 9.8 % 0-10 [facility] Blood platelet mean volumeOr dered By: Milton Iglesias on 07-28-2023 Platelet mean volume (Bld) [Entitic vol] 11.1 fL 6.2-12.0 [facility] Determination of erythrocyte mean corpuscular volume (MCV)Ordered By: Milton Iglesias on 07-28-2023 MCV (RBC) [Entitic vol] 89.7 fL 81-99 [facility] Hematocrit Auto (Bld) [Volum e fraction]Ordered By: Milton Iglesias on 07-28-2023 Hematocrit (Bld) [Volume fraction] 34.0 % 37-47 [facility] Laboratory - Chemistry and C hemistry - challengeOrdered By: Milton Iglesias on 07-28-2023 CO2 [Moles/Vol] 27.0 mmol/L 21.0-32.0 [facility] Urea nitrogen/Creatinine [Mass ratio] 20.2 mg/mg 10-20 [facility] [place] Laboratory - Hematology and Cell countsOrdered By: Milton Iglesias on 07-28-2023 Erythrocyte distribution width (RBC) [Entitic vol] 45.0 fL 35.1-43.9 [facility] Erythrocyte distribution width (RBC) [Ratio] 13.7 % 11.6-14.6 [facility] Immature granulocytes/100 WBC (Bld) 0.200 % 0.0-0.9 [facility] Comment on above: IG% - Immature Granu locytes (promyelocytes, myelocytes and metamyelocytes) > 1% indicates that a LEFT SHIFT is Present. MCH (RBC) [Entitic mass] 28.2 pg 27.0-32.0 [facility] Nucleated RBC/100 WBC (Bld) [Ratio] 0 % 0-5 [facility] MCHC Auto (RBC) [Mass/Vol]Or dered By: Milton Iglesias on 07-28-2023 MCHC (RBC) [Mass/Vol] 31.5 g/dL 32-36 [facility] No Panel InformationOrdered By: Milton Iglesias on 07-28-2023 Estimated GFR (MDRD) Amer 57 mL/min >60 [facility] Comment on above: GFR Calc Estimated GFR (MDRD) Non-Af Amer 47 mL/min >60 [facility] Comment on above: Non- GFR Calc Platelets bldOrdered By: Nash Iglesias on 07-28-2023 Platelets (Bld) [#/Vol] 234 10*3/uL 150-450 [facility] Serum or plasma calcium carlos urement (mass/volume)Ordered By: Milton Iglesias on 07-28-2023 Calcium [Mass/Vol] 9.4 mg/dL 8.5-10.[address] [facility] Serum or plasma creatinine m easurement (mass/volume)Ordered By: Milton Iglesias on 07-28-2023 Creatinine [Mass/Vol] 1.19 mg/dL 0.55-1.02 [facility] Comment on above: The validity of the calculated GFR & GFRAA in patients over 70 years has not been determined. Clinical correlation is essential. Serum or plasma urea nitroge n measurement (mass/volume)Ordered By: Milton Iglesias on 07-28-2023 Urea nitrogen [Mass/Vol] 24 mg/dL 7-18 [facility] Thin prep Papanicolaou smear with manual screeningOrdered By: Milton Iglesias on 07-28-2023 Thin prep Papanicolaou smear with manual screening 3 5-15 [facility] DXA-AXIAL SKELETONon 28-2 022 [facility] [place] CARDIAC PERF STRESS/PHARM on 02-17-2021 NM CARDIAC PERF STRESS/PHARM * * *Final Report* * * DATE OF EXAM: Feb 17 2021 11:20AM EJ [id number] - NM CARDIAC PERF STRESS/PHARM / PROCEDURE REASON: R07.89-Other chest pain * * * * Physician Interpretation * * * * PATIENT: Name: MS. PRASHANT SHEFFIELD Age: 70 years Gender: F CONCLUSIONS: 1. SPECT Perfusion Study: Normal. 2. There is no scintigraphic evidence for inducible ischemia. 3. No evidence of scarred myocardium. 4. Left ventricle is normal in size. The left ventricle systolic function is normal. 5. Right ventricle is normal in size. 6. This is a low risk scan. 1 LVEF % 76 Prior Study Comparison No prior nuclear cardiology exam available for comparison. Nuclear Med Report:1-Day Tc-Tetrofosmin Gated SPECT Myocardial Perfusion with Regadenoson Stress: Myocardial perfusion imaging was performed at rest 30 minutes following the IV injection of Tc-99m tetrofosmin. The patient received 0.4 mg of regadenoson, via rapid IV push, immediately followed by Tc-99m tetrofosmin IV. Gated post stress tomographic imaging was performed 30 to 60 minutes later. See administered doses below. [facility] Date of service: 02/17/2021 9:54:54 AM Ordering Physician: Fany Bethea Requesting Physician: Indication: CP Interpreting physician: Fany Bethea DO Height: 157.48 cm BSA: 1.76 m? Weight: 70.76 kg BMI: 28.5 kg/m? Exam Type: Rest Stress Radiopharm: Tc-99m Tetrofosmin Tc-99m Tetrofosmin Dosage(mCi): 12.7 34.6 Atten Correction: not performed not performed Stress Agent: Regadenoson 0.4mg Supply provided from [facility] Resting Blood Press: 180/73 mmHg Image Quality The overall study imaging quality was deemed to be good. FINDINGS: Left Ventricle Wall Motion: 1 - All segments are normal. 1 1 LVEF: 76 % LEFT VENTRICLE The left ventricle is normal in size. Left ventricular systolic function is normal. Right Ventricle The right ventricle is normal in size. Stress Test Findings: There is no scintigraphic evidence for inducible ischemia. There is no evidence of scarring. Final Stress ECG Report: [facility] Date of service: 02/17/2021 9:54:54 AM Ordering physician: FANY BETHEA Specialist: Rebecca Long Advanced Manager: Tyra Flower Stress ECG interpreting physician: Fany Bethea DO PATIENT: Name: MS. PRASHANT SHEFFIELD Age: 70 years Gender: F Height: 157.48 cm BSA: 1.76 m? Weight: 70.76 kg BMI: 28.5 kg/m? STRESS ECG CONCLUSION: Conclusion: Normal STRESS ECG SUMMARY: The patient's resting heart rate was 74 bpm and blood pressure was 180/73 mmHg. The maximum heart rate was 88 bpm, which is 59% predicted for age. The double product achieved was [address]. Peak heart rate was 88 bpm and peak blood pressure was 180/73 mmHg. STRESS ECG FINDINGS: Indications: CP - ECG un-interpretable or unable to exercise Diagnosis: Hypertension and Hyperlipidemia Medications: Arb, Statins, Antidepressants and potassium, magnesium and calcium supplements Medications: ASA Resting ECG: Normal Sinus Rhythm Pharamcologic Protocol: Regadenoson Stress Test: +----+--+---+---+ Step HR SYS ENEDELIA +----+--+---+---+ 1 86 176 64 +----+--+---+---+ 2 88 142 56 +----+--+---+---+ 3 88 139 54 +----+--+---+---+ 4 88 136 58 +----+--+---+---+ 5 87 142 59 +----+--+---+---+ 6 88 139 59 +----+--+---+---+ +-----+--+---+---+ HR SYS ENEDELIA +-----+--+---+---+ Final 88 180 73 +-----+--+---+---+ Resting HR: 74 bpm Peak HR: 88 bpm (59% MPHR) Resting BP: 180 / 73 mmHg Peak BP: 180 / 73 mmHg Chronotropic response index (CRI): 0.26 Rate Pressure Product (RPP): 26262 Reason for test termination: End of Protocol. Symptoms during test: Shortness of breath. ST segment and T wave changes: No ST changes Arrhythmias: No arrhythmias Final Stress Consulting Sme Report: [facility] Date of service: 02/17/2021 9:54:54 AM Supervising physician: Gina Marinelli MD PATIENT: Name: MS. PRASHANT SHEFFIELD Age: 70 years Gender: F The supervising physician was present during the stress procedure. Final Tamper Operator: JANICE Transcribe Date/Time: Feb 17 2021 9:54A Dictated by : FANY BETHEA DO This examination was interpreted and the report reviewed and electronically signed by: FANY BETHEA DO on Feb 17 2021 5:19PM EST [id number] CN Normal [facility] PROGRESSon 02-17-2021 PROGRESS HNO ID: [id number] Author: Fany (Ct) CONNOR Villalba Service: Nuclear Medicine Author Type: Clinical Telephone Clerk Type: Progress Notes Filed: 02/17/2021 10:30 AM Note Text: RADIOLOGY SERVICE PROGRESS NOTE SERVICE DATE: 02/17/2021 SERVICE TIME: 10:28 AM PATIENT IDENTITY VERIFICATION COMPLETED USING TWO (2) STANDARD IDENTIFIERS: Name and Date of confirmed by patient verbally and Name and Date of confirmed by identification band FALL SCREENING: Has the patient had 2 falls in the last year or 1 fall with injury or currently using an Ambulatory Assistive Device (Walker, Cane, Wheelchair, Crutches, etc.)? Yes, Patient High Risk for Falls What interventions were put in place to prevent falls during this visit? Instructed Patient to Call for Help if Needed, Offered Assistance with Transfers/Clothing, Instructed Patient to Remain Seated (Not on Exam Table) Until Exam and Increased Observations by Caregivers PATIENT GENDER DATA: .female : No ALLERGIES: Reviewed and unchanged MEDICATIONS REVIEWED: Not applicable PATIENT RELEVANT IMPLANT DATA REVIEWED: Not Applicable CREATININE: Creatinine Date Value Ref Range Status 01/12/2021 1.13 (H) 0.58 - 0.96 mg/dL Final 06/27/2020 1.12 (H) 0.58 - 0.96 mg/dL Final 12/04/2019 1.10 (H) 0.58 - 0.96 mg/dL Final eGFR-All Other Races Date Value Ref Range Status 01/12/2021 48 . Final Comment: eGFR (Estimated GFR) Units of measure: mL/min/1.73 meters squared eGFR is derived from the reexpressed MDRD Study equation using the following parameters: serum creatinine, age, gender and race. The creatinine assay has been calibrated to be traceable to IDMS. An eGFR <60 mL/min/1.73m2 for >3 months is consistent with chronic kidney disease. Refer to KDOQI guidelines for clinical interpretation. In patients with unstable renal function, e.g. those with acute kidney injury, the eGFR may not accurately reflect actual GFR. eGFR- Date Value Ref Range Status 01/12/2021 58 Final P.O.C.T. RESULTS: N/A February 17, [address] PERFORMED: No IV SITE: Ambulatory: A peripheral IV was started in the Left antecubital site with a Angio cath: 22 gauge. POST EXAM PIV STATUS: Discontinued PROCEDURE TYPE: AR Stress: 12.7mCi [id number] was administered IV for Rest Imaging at 09:23 by CONNOR Toussaint. 34.6 mCi [id number] was administered IV for Stress Imaging at 10:22 by CONNOR Toussaint. PATIENT DISCHARGED TO: Ambulatory patient, left [place] department area. A Diagnostic radioactive procedure has taken place, with no further precautions necessary other than routine body substance precautions. More information regarding radiation safety can be found using this link: [email or web address] SIGNATURE: CONNOR Toussaint PATIENT NAME: Prashant Sheffield DATE: February 17, 2021 TIME: 10:28 AM PAGER/CONTACT #: [facility] Li 02-16-2021 SHANIQUE Telephone ([facility]) FREDDYPRASHANT L ([id number]) 1950 F Date Time Provider Department 02/16/21 DEBRA KATZ (RN) [facility] During your visit today, we recorded the following information about you: Debra Katz RN, RN 02/16/2021 12:52 PM Signed Instructions given for stress test Allergies As of Date: 02/16/2021 Noted Allergy Reaction BETADINE (POVIDONE-IODINE) 07/09/2017 2 - Rash CODEINE 02/07/2016 5 - Intolerance Comments: "crazy dreams" does not like to take it Date Reviewed: 02/03/2021 Reviewed by: Shira Winters - Fully Assessed Reason for Visit: Reminder Call [[id number]] Prescriptions as of 02/16/2021 Sig: VALSARTAN 160 MG TABLET Take 1 tablet by mouth once d* SIMVASTATIN 20 MG TABLET Take 1 tablet by mouth daily * CITALOPRAM 10 MG TABLET Take 1 tablet by mouth once d* CITALOPRAM 20 MG TABLET Take 1 tablet by mouth daily * BENZTROPINE 2 MG TABLET Take 1 tablet by mouth twice * RASAGILINE 1 MG TABLET Take 1 tablet by mouth once d* OMEPRAZOLE 40 MG CAPSULE,SARA* Take 1 capsule by mouth once * GABAPENTIN 400 MG CAPSULE 1-2 tabs as needed for insomn* POLYETHYLENE GLYCOL 3350 17 G* Take 17 g by mouth once daily. ESTRADIOL 0.01% (0.1 MG/GRAM)* Use 1 g vaginally twice a wee* MULTIVITAMIN TABLET Take 1 tablet by mouth once d* CALCIUM 500 + D ORAL Take by mouth. IRON (DRIED) ORAL Take by mouth. ASPIRIN 81 MG TABLET,DELAYED * Take 1 tablet by mouth once d* Problem List As Of Date 02/16/2021 Noted Resolved GERD without esophagitis [K21.9] 02/07/2016 Alcohol use [Z72.89] 02/07/2016 Parkinson's disease (HCC) [G20] 02/07/2016 Anxiety and depression [F41.9, F32.9] 02/07/2016 Essential hypertension [I10] 02/07/2016 Mixed hyperlipidemia [E78.2] 02/07/2016 Fibroid uterus [D25.9] 02/07/2016 Colon cancer screening [Z12.11] 02/07/2016 Encounter for gynecological examination without*02/07/2016 Family history of colon cancer in mother [Z80.0]02/14/2016 Dry mouth [R68.2] 03/26/2016 Current use of proton pump inhibitor [Z79.899] 12/06/2016 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] 12/06/2016 Medicare annual wellness visit, subsequent [Z00*06/05/2017 Neoplasm of uncertain behavior of skin of back *06/05/2017 12/06/2017 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 Ez Solitario MD Work Phone: [facility] 07-09-2025 00:40-0400 Diastolic blood pressure 61 mm[Hg] Dr. Ez Solitario MD Work Phone: [facility] [place] 07-09-2025 00:40-0400 Heart rate 58 /min Dr. Ez Solitario MD Work Phone: [facility] 07-09-2025 00:40-0400 Respiratory rate 18 /min Dr. Ez Solitario MD Work Phone: [facility] 07-09-2025 00:40-0400 SaO2% (BldA) [Mass fraction] 98 % Dr. Ez Solitario MD Work Phone: 5(743)526-222801 [place] [address] 07-09-2025 00:40-0400 Systolic blood pressure 114 mm[Hg] Dr. Ez Solitario MD Work Phone: 6(925)374-474201 [place] [address] 07-08-2025 11:04-0400 Body height [address] Ez Solitario MD Work Phone: 4(354)826-866501 [place] [address] 07-08-2025 11:04-0400 Body weight 62.[address] Ez Solitario MD Work Phone: 3(937)570-908501 [place] [address] 07-07-2025 12:52-0400 Body mass index (BMI) [Ratio] 25.2 kg/m2 Dr. Ez Solitario MD Work Phone: 5(985)678-140401 [place] [address] 07-07-2025 12:05-0400 Body temperature 97.8 [degF] Dr. Ez Solitario MD Work Phone: 5(355)708-828301 [place] [address] 07-07-2025 12:05-0400 Diastolic blood pressure 66 mm[Hg] Dr. Ez Solitario MD Work Phone: 8(318)749-897801 [place] [address] 07-07-2025 12:05-0400 Heart rate 83 /min Dr. Ez Solitario MD Work Phone: 5(490)045-592801 [place] [address] 07-07-2025 12:05-0400 Respiratory rate 19 /min Dr. Ez Solitario MD Work Phone: 8(537)274-060601 [place] [address] 07-07-2025 12:05-0400 SaO2% (BldA) [Mass fraction] 99 % Dr. Ez Solitario MD Work Phone: 4(907)217-678301 [place] [address] 07-07-2025 12:05-0400 Systolic blood pressure 162 mm[Hg] Dr. Ez Solitario MD Work Phone: 6(156)010-375601 [place] [address] 07-07-2025 09:30-0400 Body height 157.[address] Ez Solitario MD Work Phone: 4(552)947-819101 [place] [address] 07-07-2025 09:30-0400 Body mass index (BMI) [Ratio] 24.9 kg/m2 Dr. Ez Solitario MD Work Phone: [facility] 07-07-2025 09:30-0400 Body weight 61.[address] Ez Solitario MD Work Phone: [facility] 03-08-2025 14:06-0400 Body mass index (BMI) [Ratio] 26.83 kg/m2 Mary Podlogar RECONSIGNMENT CLERK.KNOCKDOWN MAN Work Phone: [facility] 03-08-2025 14:06-0400 Body weight 64.05 kg Mary Podlogar RECONSIGNMENT CLERK.[employer]DOWN [employer] Work Phone: [facility] 03-08-2025 14:06-0400 Diastolic blood pressure 68 mm[Hg] Mary Podlogar RECONSIGNMENT CLERK.[employer]DOWN MAN Work Phone: [facility] 03-08-2025 14:06-0400 Heart rate 57 /min Mary Podlogar RECONSIGNMENT CLERK.[employer]DOWN MAN Work Phone: [facility] 03-08-2025 14:06-0400 Respiratory rate 16 /min Mary Podlogar RECONSIGNMENT CLERK.[employer]DOWN MAN Work Phone: [facility] 03-08-2025 14:06-0400 SaO2% (BldA) [Mass fraction] 98 % Mary Podlogar RECONSIGNMENT CLERK.[employer]DOWN MAN Work Phone: [facility] 03-08-2025 14:06-0400 Systolic blood pressure 118 mm[Hg] Mary Podlogar RECONSIGNMENT CLERK.[employer]DOWN MAN Work Phone: [facility] 01-11-2025 12:48-0500 Body height 154.5 cm Lauren Camacho PA-C Work Phone: [facility] 01-11-2025 12:48-0500 Body mass index (BMI) [Ratio] 26.41 kg/m2 Lauren Camacho PA-C Work Phone: [facility] 01-11-2025 12:48-0500 Body temperature 97.9 [degF] Lauren Camacho PA-C Work Phone: [facility] 01-11-2025 12:48-0500 Body weight 63.05 kg Lauren Camacho PA-C Work Phone: [facility] 01-11-2025 12:48-0500 Diastolic blood pressure 70 mm[Hg] Lauren Camacho PA-C Work Phone: [facility] 01-11-2025 12:48-0500 Heart rate 57 /min Lauren Camacho PA-C Work Phone: [facility] 01-11-2025 12:48-0500 Respiratory rate 16 /min Lauren Camacho PA-C Work Phone: [facility] 01-11-2025 12:48-0500 SaO2% (BldA) [Mass fraction] 100 % Lauren Camacho PA-C Work Phone: [facility] 01-11-2025 12:48-0500 Systolic blood pressure 118 mm[Hg] Lauren Camacho PA-C Work Phone: [facility] 08-20-2024 10:52-0400 Body mass index (BMI) [Ratio] 23.96 kg/m2 Edna Umanzor APRN.[employer]DOWN MAN Work Phone: [facility] 08-20-2024 10:52-0400 Body weight 59.42 kg Edna Umanzor APRN.[employer]DOWN [employer] Work Phone: [facility] 08-20-2024 10:52-0400 Diastolic blood pressure 73 mm[Hg] Edna Umanzor APRN.[employer]DOWN MAN Work Phone: [facility] 08-20-2024 10:52-0400 Heart rate 62 /min Edna Umanzor APRN.[employer]DOWN MAN Work Phone: [facility] 08-20-2024 10:52-0400 Respiratory rate 14 /min Edna Umanzor APRN.[employer]DOWN MAN Work Phone: [facility] 08-20-2024 10:52-0400 Systolic blood pressure 131 mm[Hg] Edna Umanzor APRN.[employer]DOWN MAN Work Phone: [facility] 07-08-2024 14:21-0400 Diastolic blood pressure 68 mm[Hg] Ez Solitario MD Work Phone: [facility] 07-08-2024 14:21-0400 Systolic blood pressure 132 mm[Hg] Ez Solitario MD Work Phone: [facility] 07-08-2024 13:48-0400 Body mass index (BMI) [Ratio] 23.41 kg/m2 Ez Solitario MD Work Phone: [facility] 07-08-2024 13:48-0400 Body weight 58.06 kg Ez Solitario MD Work Phone: [facility] 07-08-2024 13:48-0400 Heart rate 62 /min Ez Solitario MD Work Phone: [facility] 07-08-2024 13:48-0400 Respiratory rate 16 /min Ez Solitario MD Work Phone: [facility] 12-26-2023 13:54-0500 Body weight 57.15 kg Edna Umanzor APRN.[employer]DOWN [employer] Work Phone: [facility] 12-26-2023 13:54-0500 Diastolic blood pressure 66 mm[Hg] Edna Umanzor APRN.[employer]DOWN MAN Work Phone: [facility] 12-26-2023 13:54-0500 Heart rate 68 /min Edna Umanzor APRN.[employer]DOWN MAN Work Phone: [facility] 12-26-2023 13:54-0500 Respiratory rate 14 /min Edna Umanzor APRN.[employer]DOWN MAN Work Phone: [facility] 12-26-2023 13:54-0500 Systolic blood pressure 142 mm[Hg] Edna Umanzor APRN.[employer]DOWN MAN Work Phone: [facility] 10-07-2023 15:30-0500 Body height 157.5 cm Daren Prince MD Work Phone: [facility] 10-07-2023 15:30-0500 Body temperature 98.1 [degF] Daren Prince MD Work Phone: [facility] 10-07-2023 15:30-0500 Body weight 55.79 kg Daren Prince MD Work Phone: [facility] 10-07-2023 15:30-0500 Diastolic blood pressure 80 mm[Hg] Daren Prince MD Work Phone: [facility] 10-07-2023 15:30-0500 Heart rate 77 /min Daren Prince MD Work Phone: [facility] 10-07-2023 15:30-0500 SaO2% (BldA) [Mass fraction] 97 % Daren Prince MD Work Phone: [facility] 10-07-2023 15:30-0500 Systolic blood pressure 146 mm[Hg] Daren Prince MD Work Phone: [facility] 09-25-2023 11:37-0500 Body weight 56.25 kg Ez Solitario MD Work Phone: [facility] 09-25-2023 11:37-0500 Diastolic blood pressure 70 mm[Hg] Ez Solitario MD Work Phone: [facility] 09-25-2023 11:37-0500 Heart rate 70 /min Ez Solitario MD Work Phone: [facility] 09-25-2023 11:37-0500 Respiratory rate 16 /min Ez Solitario MD Work Phone: [facility] 09-25-2023 11:37-0500 Systolic blood pressure 120 mm[Hg] Ez Solitario MD Work Phone: [facility] 09-13-2023 15:36-0400 Diastolic blood pressure 84 mm[Hg] Alonso Quinones MD Work Phone: [facility] 09-13-2023 15:36-0400 Systolic blood pressure 130 mm[Hg] Alonso Quinones MD Work Phone: [facility] 09-13-2023 14:33-0400 Heart rate 68 /min Alonso Quinones MD Work Phone: [facility] 09-13-2023 14:33-0400 Respiratory rate 16 /min Alonso Quinones MD Work Phone: [facility] 09-13-2023 14:33-0400 SaO2% (BldA) [Mass fraction] 99 % Alonso Quinones MD Work Phone: [facility] 08-06-2023 11:21-0400 Body temperature 98.5 [degF] Dr. Ez Solitario Work Phone: [facility] 08-06-2023 11:21-0400 Diastolic blood pressure 74 mm[Hg] Dr. Ez Solitario Work Phone: 3(454)375-565301 [place] [address] 08-06-2023 11:21-0400 Heart rate 69 /min Dr. Ez Solitario Work Phone: 4(763)095-765701 [place] [address] 08-06-2023 11:21-0400 Respiratory rate 16 /min Dr. Ez Solitario Work Phone: 9(037)615-404201 [place] [address] 08-06-2023 11:21-0400 SaO2% (BldA) [Mass fraction] 96 % Dr. Ez Solitario Work Phone: 4(470)272-537801 [place] [address] 08-06-2023 11:21-0400 Systolic blood pressure 127 mm[Hg] Dr. Ez Solitario Work Phone: 9(277)157-351166 [place] [address] 08-05-2023 13:55-0400 Body height 157.[address] Ez Solitario Work Phone: 6(838)161-346601 [place] [address] 08-05-2023 13:55-0400 Body weight 62.[address] Ez Solitario Work Phone: 8(666)381-993301 [place] [address] 08-02-2023 12:19-0400 Inhaled oxygen flow rate 96 L/min Dr. Ez Solitario Work Phone: 9(593)677-244566 [place] [address] 08-01-2023 23:02-0400 Body mass index (BMI) [Ratio] 25 kg/m2 Dr. Ez Solitario Work Phone: 6(679)697-947166 [place] [address] 08-01-2023 19:20-0400 Body temperature 97.8 [degF] Dr. Ez Solitario Work Phone: [facility] [place] 08-01-2023 19:20-0400 Diastolic blood pressure 78 mm[Hg] Dr. Ez Solitario Work Phone: [facility] 08-01-2023 19:20-0400 Heart rate 72 /min Dr. Ez Solitario Work Phone: [facility] 08-01-2023 19:20-0400 Respiratory rate 14 /min Dr. Ez Solitario Work Phone: [facility] 08-01-2023 19:20-0400 SaO2% (BldA) [Mass fraction] 97 % Dr. Ez Solitario Work Phone: [facility] 08-01-2023 19:20-0400 Systolic blood pressure 148 mm[Hg] Dr. Ez Solitario Work Phone: [facility] 08-01-2023 19:13-0400 Body height 157.[address] Ez Solitario Work Phone: [facility] 08-01-2023 19:13-0400 Body mass index (BMI) [Ratio] 24.8 kg/m2 Dr. Ez Solitario Work Phone: [facility] 08-01-2023 19:13-0400 Body weight 61.[address] Ez Solitario Work Phone: [facility] 07-28-2023 12:38-0400 Body mass index (BMI) [Ratio] 23.1 kg/m2 [facility] 07-28-2023 12:38-0400 Body weight 63.23 kg [facility] 07-28-2023 12:38-0400 Diastolic blood pressure 77 mm[Hg] [facility] 07-28-2023 12:38-0400 Heart rate 62 /min [facility] 07-28-2023 12:38-0400 Respiratory rate 15 /min [facility] 07-28-2023 12:38-0400 SaO2% (BldA) [Mass fraction] 98 % [facility] 07-28-2023 12:38-0400 Systolic blood pressure 124 mm[Hg] [facility] 07-28-2023 09:30-0400 Body height 165.1 cm [facility] 07-28-2023 09:30-0400 Body temperature 97.3 [degF] [facility] 05-24-2023 13:22-0400 Body temperature 97.81 [degF] Lauren Camacho PA-C Work Phone: [facility] 05-24-2023 13:22-0400 Body weight 63.5 kg Lauren Camacho PA-C Work Phone: [facility] 05-24-2023 13:22-0400 Diastolic blood pressure 70 mm[Hg] Lauren Camacho PA-C Work Phone: [facility] 05-24-2023 13:22-0400 Heart rate 56 /min Lauren Camacho PA-C Work Phone: [facility] 05-24-2023 13:22-0400 Respiratory rate 16 /min Lauren Camacho PA-C Work Phone: [facility] 05-24-2023 13:22-0400 Systolic blood pressure 110 mm[Hg] Lauren Camacho PA-C Work Phone: [facility] 05-02-2023 13:54-0400 Body weight 63.5 kg Edna Umanzor APRN.KN[employer]DOWN MAN Work Phone: [facility] 05-02-2023 13:54-0400 Diastolic blood pressure 68 mm[Hg] Edna Umanzor APRN.KN[employer]DOWN MAN Work Phone: [facility] 05-02-2023 13:54-0400 Heart rate 63 /min Edna Umanzor RECONSIGNMENT CLERK.[employer]DOWN MAN Work Phone: [facility] 05-02-2023 13:54-0400 Respiratory rate 16 /min Edna Umanzor RECONSIGNMENT CLERK.[employer]DOWN MAN Work Phone: [facility] 05-02-2023 13:54-0400 SaO2% (BldA) [Mass fraction] 97 % Edna Umanzor RECONSIGNMENT CLERK.[employer]DOWN MAN Work Phone: [facility] 05-02-2023 13:54-0400 Systolic blood pressure 110 mm[Hg] Edna Umanzor RECONSIGNMENT CLERK.KN[employer]DOWN MAN Work Phone: [facility] 02-12-2023 09:25-0400 Diastolic blood pressure 74 mm[Hg] Ez Solitario MD Work Phone: [facility] 02-12-2023 09:25-0400 Systolic blood pressure 128 mm[Hg] Ez Solitario MD Work Phone: [facility] 02-12-2023 08:56-0400 Body weight 64.86 kg Ez Solitario MD Work Phone: [facility] 02-12-2023 08:56-0400 Heart rate 76 /min Ez Solitario MD Work Phone: [facility] 02-12-2023 08:56-0400 Respiratory rate 16 /min Ez Solitario MD Work Phone: [facility] 02-07-2022 08:18-0400 Body weight 64.86 kg Ez Solitario MD Work Phone: [facility] 02-07-2022 08:18-0400 Diastolic blood pressure 74 mm[Hg] Ez Solitario MD Work Phone: [facility] 02-07-2022 08:18-0400 Heart rate 70 /min Ez Solitario MD Work Phone: [facility] 02-07-2022 08:18-0400 Respiratory rate 12 /min Ez Solitario MD Work Phone: [facility] 02-07-2022 08:18-0400 Systolic blood pressure 118 mm[Hg] Ez Solitario MD Work Phone: [facility] Encounters Encounter Date Encounter Type Care Provider Facility Start: 07-22-2025 ambulatory Matilda Alexander ty:[facility] Start: 07-08-2025 Non-patient / Non-visit Dr. Davin johnson MD -[facility] Work Phone: Start: 07-07-2025 End: 07-07-2025 Chart abstracting Ez Solitario MD Work Phone: [facility] Comment on above: Abstract (H admiss ion) Start: 07-07-2025 Non-patient / Non-visit Dr. Davin johnson MD -[facility] Work Phone: Start: 07-07-2025 End: 07-09-2025 ambulatory Davin Kirkland Facility:[facility] Start: 07-07-2025 End: 07-09-2025 Evaluation and management of inpatient Dr. Davin Kirkland MD [facility] Work Phone: Start: 07-07-2025 End: 07-09-[address] Ez Solitario MD Work Phone: [facility] Start: 07-01-2025 End: 07-01-2025 Chart abstracting Ez Solitario MD Work Phone: [facility] Comment on above: Abstract (Neurology OV) Start: 05-05-2025 End: 05-05-2025 Chart abstracting Patti Tomas MA [facility] Comment on above: Consult (Neurology / ) Start: 03-17-2025 End: 03-17-2025 Chart abstracting Patti Tomas MA [facility] Comment on above: Physical Therapy (Ou tside PT consult ) Start: 03-08-2025 End: 03-08-2025 Patient encounter procedure Mary Hardinglogpablo RECONSIGNMENT CLERK.KN[employer]DOWN MAN Work Phone: [facility] Comment on above: Traumatic ecchymosis of right lower leg, initial encounter (Primary Dx) Start: 03-08-2025 End: 03-08-2025 ambulatory MARY PODLOGPABLO Facility:[facility] Start: 02-26-2025 End: 02-26-2025 Follow-up encounter Edna Umanzor RECONSIGNMENT CLERK.KNOCKDOWN MAN Work Phone: [facility] Comment on above: Results Start: 02-23-2025 End: 02-23-2025 Follow-up encounter Edna Umanzor APRN.CNP Work Phone: [facility] [place] Comment on above: Results Start: 02-22-2025 End: 02-22-2025 ambulatory EZ SOLITARIO Facility:[facility] Start: 02-22-2025 End: 02-22-2025 Subsequent hospital visit by physician [facility] Work Phone: Radiology Comment on above: Asymptomatic menopau se [Z78.0] Encounter for screen ing mammogram for breast cancer [Z12.31] Start: 02-04-2025 End: 02-04-2025 Chart abstracting Ez Solitario MD Work Phone: [facility] Comment on above: Outside Neurology Start: 01-13-2025 End: 01-13-2025 Follow-up encounter Lauren Camacho PA-C Work Phone: [facility] Start: 01-11-2025 End: 01-11-2025 ambulatory EZ SOLITARIO Facility:[facility] Start: 01-11-2025 End: 01-11-2025 ambulatory LAUREN CAMACHO Facility:[facility] Start: 01-11-2025 End: 01-11-2025 Patient encounter procedure Lauren Camacho PA-C Work Phone: [facility] Comment on above: Medicare annual well ness visit, subsequent (Primary Dx); Advance directive discussed with patient; Mixed hyperlipidemia; Essential hypertension; Hypertensive heart and chronic kidney disease with heart failure and stage 1 through stage 4 chronic kidney disease, or unspecified chronic kidney disease (HCC); 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); GERD without esophagitis; Alcohol use; Stage 3a chronic kidney disease (HCC); Elevated hemoglobin A1c; Low serum vitamin B12; Iron deficiency anemia, unspecified iron deficiency anemia type; Memory loss; Mobility impaired; Falls frequently; Atrophic vaginitis; Parkinson's disease, unspecified whether dyskinesia present, unspecified whether manifestations fluctuate (HCC); Urine frequency; Asymptomatic menopause Start: 01-06-2025 End: 01-06-2025 ambulatory Magdalena Forman Facility:[facility] Start: 01-05-2025 End: 01-05-2025 ambulatory EZ SOLITARIO Facility:[facility] Start: 12-10-2024 End: 12-11-2024 Refill Ez Solitario MD Work Phone: [facility] Comment on above: Refill Request Start: 11-24-2024 End: 11-24-2024 Chart abstracting Ez Solitario MD Work Phone: [facility] Comment on above: Outside PT/OT/Speech Start: 10-27-2024 End: 10-27-2024 Chart abstracting Ez Solitario MD Work Phone: [facility] Comment on above: Outside Neurology Start: 09-30-2024 End: 10-05-2024 ambulatory Ez Solitario MD Work Phone: Internal Medicine [place] [id number] Start: 09-15-2024 End: 09-15-2024 Refill Ez Solitario MD Work Phone: [facility] Comment on above: Refill Request Start: 09-14-2024 End: 09-14-2024 ambulatory Meño Phillip PT Work Phone: [facility] Comment on above: Acute midline low ba ck pain without sciatica (Primary Dx) Start: 08-25-2024 End: 08-25-2024 Telephone encounter Edna Umanzor APRN.KNOCKDOWN MAN Work Phone: [facility] Comment on above: Results Start: 08-24-2024 End: 08-24-2024 Telephone encounter Ez Solitario MD Work Phone: [facility] Comment on above: Results Start: 08-20-2024 End: 08-20-2024 [facility] Comment on above: Left leg pain [M79.6 05] Start: 08-20-2024 End: 08-20-2024 Patient encounter procedure Edna Umanzor APRN.KNOCKDOWN MAN Work Phone: [facility] Comment on above: Left leg pain (Prima ry Dx); Encounter for immunization Start: 08-20-2024 End: 08-20-2024 ambulatory EDNA UMANZOR Facility:[facility] Start: 08-10-2024 End: 08-10-2024 Refill Ez Solitario MD Work Phone: [facility] Comment on above: Refill Request Start: 08-07-2024 End: 08-07-2024 Telephone encounter Ez Solitario MD Work Phone: [facility] Comment on above: Jury duty letter Start: 07-28-2024 End: 07-28-2024 Chart abstracting Ez Solitario MD Work Phone: [facility] Comment on above: Outside Neurology Start: 07-08-2024 End: 07-08-2024 Patient encounter procedure Ez Solitario MD Work Phone: [facility] Comment on above: Elevated hemoglobin A1c (Primary Dx); Mixed hyperlipidemia; Essential hypertension; GERD without esophagitis; Stage 3a chronic kidney disease (HCC); Anxiety and depression; Anemia, unspecified type; Parkinson's disease, unspecified whether dyskinesia present, unspecified whether manifestations fluctuate (HCC); Memory loss; Low serum vitamin B12; Advance directive discussed with patient; Muscle spasm of left lower extremity; Medication management; Iron deficiency anemia, unspecified iron deficiency anemia type; Dementia in other diseases classified elsewhere, mild, with anxiety (HCC); 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) Start: 06-15-2024 Refill Ez molina MD Work Phone: [facility] Comment on above: Refill Request Start: 04-28-2024 Chart abstracting Ez aviles MD Work Phone: [facility] Comment on above: Outside Neuro Start: 02-17-2024 End: 02-17-2024 Patient encounter procedure ELIO SERRATO MD [facility] Start: 02-17-2024 End: 02-18-2024 Refill Ez Solitario MD Work Phone: Family [facility] Comment on above: Refill Request Start: 01-27-2024 Telephone encounter Edna herrmann APRN.[facility] Work Phone: [facility] Comment on above: Results Start: 12-26-2023 End: 12-26-2023 Patient encounter procedure Edna Umanzor APRN.KNOCKDOWN MAN Work Phone: Family [facility] Comment on above: Medicare annual [facility] visit, subsequent (Primary Dx); Iron deficiency anemia, unspecified iron deficiency anemia type; Parkinson's disease without fluctuating manifestations, unspecified whether dyskinesia present; Stage 3a chronic kidney disease (HCC); Anxiety and depression; Essential hypertension; Mixed hyperlipidemia; GERD without esophagitis; Advance directive discussed with patient; Medication management; S/P right hemicolectomy; Low serum vitamin B12; Elevated hemoglobin A1c; Protein-calorie malnutrition, unspecified severity (HCC); Hypertensive heart and chronic kidney disease with heart failure and stage 1 through stage 4 chronic kidney disease, or unspecified chronic kidney disease (HCC); Dementia in other diseases classified elsewhere, mild, with anxiety (HCC) Start: 10-23-2023 ambulatory Ez molina MD Work Phone: Internal Medicine [facility] Start: 10-07-2023 End: 10-07-2023 Patient encounter procedure Daren Prince MD Work Phone: General Surgery Comment on above: GERD without esophag itis (Primary Dx); Iron deficiency anemia, unspecified iron deficiency anemia type Start: 10-07-2023 End: 09-22-2024 Telephone encounter Daren Prince MD Work Phone: General Surgery Comment on above: 11/28/2023 COLON/EGD ASC Start: 10-04-2023 Telephone encounter Ez Solitario MD Work Phone: [facility] Comment on above: Results Start: 10-01-2023 Home visit Ez molina MD Work Phone: Family [facility] Comment on above: Parkinson's disease, unspecified whether dyskinesia present, unspecified whether manifestations fluctuate (Primary Dx) Start: 09-25-2023 End: 09-25-2023 Patient encounter procedure Ez Solitario MD Work Phone: [facility] Comment on above: Cecal volvulus (HCC) (Primary Dx); Vaginal discharge; Encounter for immunization; Anemia, unspecified type; Stage 3a chronic kidney disease (HCC); Other general symptoms and signs; Anxiety and depression Start: 09-20-2023 Telephone encounter Ez Solitario MD Work Phone: [facility] Comment on above: Addend then Fax last OV notes Start: 09-16-2023 Telephone encounter Ez Solitario MD Work Phone: [facility] Comment on above: Patient Update Start: 09-13-2023 End: 09-13-2023 Patient encounter procedure Alonso Quinones MD Work Phone: [facility] Comment on above: Anxiety with depress ion (Primary Dx); Colonic volvulus (HCC); S/P right hemicolectomy; Essential hypertension; Parkinson's disease with dyskinesia, unspecified whether manifestations fluctuate; Mobility impaired Start: 09-10-2023 Telephone encounter Ez Solitario MD Work Phone: [facility] Comment on above: Home Health Orders Start: 09-05-2023 Chart abstracting Ez aviles MD Work Phone: [facility] Comment on above: Consult (General Sandra tracy /) Start: 08-06-2023 Non-patient / Non-visit Dr. Dimitri Solitario Work Phone: [facility] Start: 08-05-2023 Non-patient / Non-visit Dr. Dimitri Solitario Work Phone: [facility] Start: 08-04-2023 Non-patient / Non-visit Dr. Dimitri Solitario Work Phone: [facility] Start: 08-03-2023 Non-patient / Non-visit Dr. Dimitri Solitario Work Phone: [facility] Start: 08-02-2023 Chart abstracting Ez aviles MD Work Phone: [facility] Comment on above: Outside [facility]ir-[facility]-RIY Ordered (Imaging/) Start: 08-02-2023 Non-patient / Non-visit Dr. Dimitri Solitario Work Phone: [facility] Start: 08-01-2023 End: 08-06-2023 Evaluation and management of inpatient Dr. Ez Solitario Work Phone: [facility]-Medical Surgical 3 Work Phone: Start: 08-01-2023 Admission to [facility] Dr. Ez Solitario Work Phone: [facility]-Probation Supervisor Work Phone: Start: 08-01-[address] Ez aviles Work Phone: [facility] Work Phone: Start: 08-01-2023 Non-patient / Non-visit Dr. Dimitri Solitario Work Phone: [facility] Start: 08-01-2023 Telephone encounter Ez Solitario MD Work Phone: [facility] Comment on above: Results Start: 07-28-2023 End: 07-28-2023 Emergency department patient visit [facility]-Emergency Department Work Phone: Start: 07-24-2023 End: 07-24-2023 ambulatory Mary You OT/[facility] [place] Comment on above: Parkinson's disease (HCC) (Primary Dx); Mobility impaired; Falls frequently; Driving safety issue Start: 07-16-2023 Refill Ez molina MD Work Phone: [facility] Comment on above: Refill Request Start: 07-15-2023 Refill Ez molina MD Work Phone: [facility] Comment on above: Refill Request Start: 06-14-2023 Telephone encounter Lauren daley PA-C Work Phone: [facility] [place] Comment on above: Results Start: 05-31-2023 Telephone encounter Lauren daley PA-C Work Phone: [facility] Comment on above: Results Start: 05-27-2023 Telephone encounter Lauren daley PA-C Work Phone: [facility] Comment on above: Results Start: 05-24-2023 End: 05-24-2023 Patient encounter procedure Lauren Camacho PA-C Work Phone: [facility] Comment on above: Peripheral edema (Pr imary Dx); Leg swelling Start: 05-15-2023 Chart abstracting Ez aviles MD Work Phone: [facility] Comment on above: Outside Neurology Start: 05-09-2023 Telephone encounter Edna herrmann APRN.KNOCKDOWN MAN Work Phone: [facility] [place] Comment on above: Results Start: 05-07-2023 Telephone encounter Lauren daley PA-C Work Phone: [facility] [place] Comment on above: Results Start: 05-02-2023 End: 05-02-2023 Patient encounter procedure Edna Umanzor RECONSIGNMENT CLERK.KNOCKDOWN MAN Work Phone: [facility] Comment on above: Essential hypertensi on (Primary Dx); Lower extremity edema; Hypertensive heart and chronic kidney disease with heart failure and stage 1 through stage 4 chronic kidney disease, or unspecified chronic kidney disease (HCC) Start: 02-21-2023 Chart abstracting Ez aviles MD Work Phone: [facility] [place] Comment on above: Consult Start: 02-12-2023 Telephone encounter Ez Solitario MD Work Phone: [facility] Comment on above: Results Start: 02-12-2023 End: 02-12-2023 Patient encounter procedure Ez Solitario MD Work Phone: [facility] [place] Comment on above: Essential hypertensi on (Primary Dx); Mixed hyperlipidemia; Elevated fasting blood sugar; Stage 3a chronic kidney disease (HCC); Parkinson's disease (HCC); Memory loss; Anxiety and depression; GERD without esophagitis; Low serum vitamin B12; Frequent falls; Advance directive discussed with patient; Encounter for immunization; Medication management Start: 02-11-2023 Telephone encounter Ez Solitario MD Work Phone: [facility] Comment on above: Lab Orders Start: 01-29-2023 End: 01-29-2023 ambulatory [facility] Work Phone: Start: 01-29-2023 End: 01-29-2023 Discharged Recurring [facility]-Physical Therapy Start: 01-28-2023 Refill Ez molina MD Work Phone: [facility] Comment on above: Refill Request Start: 01-07-2023 Refill Ez molina MD Work Phone: [facility] Comment on above: Refill Request Start: 08-27-2022 Telephone encounter Lauren daley PA-C Work Phone: [facility] Comment on above: Results Refill Request Start: 08-15-2022 Telephone encounter Ez Solitario MD Work Phone: [facility] Comment on above: Living Will update Start: 08-13-2022 Patient encounter procedure Ez Solitario MD Work Phone: [facility] Work Phone: Start: 05-12-2022 Refill Amita [facility] Comment on above: Refill Request Start: 02-27-2022 Refill Ez molina MD Work Phone: [facility] Comment on above: Refill Request Start: 02-20-2022 Telephone encounter Daren wang MD Work Phone: General Surgery Comment on above: colonoscopy recall Start: 02-12-2022 End: 02-12-2022 Subsequent hospital visit by physician [facility] Work Phone: Radiology Comment on above: Osteopenia, senile [ M85.80] Start: 02-07-2022 End: 02-07-2022 Patient encounter procedure Ez Soltiario MD Work Phone: [facility] Comment on above: Essential hypertensi on (Primary Dx); Mixed hyperlipidemia; Elevated fasting blood sugar; GERD without esophagitis; Stage 3a chronic kidney disease (HCC); Anxiety and depression; Parkinson's disease (HCC); Memory loss; Osteopenia, senile; Low serum vitamin B12; Colon cancer screening; Primary ovarian failure; Medication management Start: 02-05-2022 Telephone encounter Ez Solitario MD Work Phone: [facility] Comment on above: Patient Question Start: 01-16-2021 Patient encounter procedure Ez Solitario MD Work Phone: [facility] Work Phone: Start: 06-06-2018 Patient encounter status Ruth Solitario MD Work Phone: [facility] Work Phone: Procedures Date Procedure Procedure Detail Performing Clinician Start: 07-08-[address] Ez Solitario MD Work Phone: Start: 07-08-2025 Serum inorganic phos phate measurement Dr. Ez Solitario MD Work Phone: Start: 07-08-2025 Total iron binding capacity measurement Dr. Ez Solitario MD Work Phone: Start: 07-07-[address] Ez Solitario MD Work Phone: Start: 07-07-2025 Urnls dip stick/tabl et reagent auto microscopy Dr. Ez Solitario MD Work Phone: Start: 07-07-2025 X-ray of chest, PA a nd lateral views Dr. Ez Solitario MD Work Phone: Start: 02-22-2025 BD DXA TRABECULAR AKI NE SCORE (TBS) Lauren Camacho PA-C Work Phone: Start: 02-22-2025 Dxa bone density arleth dy 1/> sites axial skel Lauren Camacho PA-C Work Phone: Start: 01-05-2025 Lipid 1995 panel - S camila or Plasma Lauren Camacho PA-C Work Phone: Start: 08-20-2024 PFIZER-BIONTECH COVI D-19 VACCINE AGE 12+ YR (COMIRNATY) Edna Umanzor RECONSIGNMENT CLERK.KNOCKDOWN MAN Work Phone: Start: 07-03-2024 Lipid 1995 panel - S camila or Plasma Ez Solitario MD Work Phone: Start: 12-11-2023 Lipid 1995 panel - S camila or Plasma Edna Umanzor RECONSIGNMENT CLERK.KNOCKDOWN MAN Work Phone: Start: 09-25-2023 INFLUENZA VACCINE, P RSV FREE, AGE 65+ YR, HIGH DOSE, QUADRIVALENT (FLUZONE HIGH-DOSE) Ez Solitario MD Work Phone: Start: 09-25-2023 PFIZER-BIONTECH COVI D-19 VACCINE (2022- SEASON) AGE 12+ YR Ez Solitario MD Work Phone: Start: 08-03-2023 Plain x-ray of elbow Dr Michael Solitario Work Phone: Start: 08-03-2023 Plain X-ray of shoulder Dr. Ez Solitario Work Phone: Start: 08-01-2023 Partial resection of colon Dr. Ez Solitario Work Phone: Start: 08-01-2023 Plain X-ray abdomen Dr. Ez Solitario Work Phone: Start: 08-01-2023 CT of abdomen and pe lvis without contrast Dr. Ez Solitario Work Phone: Start: 07-28-2023 CT cervical spine wi thout contrast Start: 07-28-2023 CT of head without contrast Start: 07-25-2023 Lipid 1996 panel - S camila or Plasma Ez Solitario MD Work Phone: Start: 06-15-2023 Ecg routine ecg w/le ast 12 lds i&r only [facility] Provider Start: 02-12-2023 [facility] COVI D-19 BIVALENT BOOSTER VACCINE, AGE 12+ YR Ez Solitario MD Work Phone: Start: 02-12-2022 Dxa bone density arleth dy 1/> sites axial skel Ez Solitario MD Work Phone: Start: 11-04-2020 Mammography Ez aviles MD Work Phone: Start: 02-20-2016 Colonoscopy Ez aviles MD Work Phone: Plan of Treatment Date Care Activity Detail Author Start: 03-23-2034 Urine microalbumin profile DTa P,Tdap,Td Vaccine (2 - Td or Tdap) [facility] Start: 01-05-2030 Lipid panel Lipid Screening [facility] Start: 07-03-2029 Lipid panel Lipid Screening [facility] Start: 12-11-2028 Lipid panel Lipid Screening [facility] Start: 07-25-2028 Lipid 1996 panel - S camila or Plasma Lipid Screening [facility] Start: 01-05-2028 [facility] Start: 08-08-2027 LIPID SCREEN LIPID SCREEN [facility] Start: 07-03-2027 [facility] Start: 02-05-2027 LIPID SCREEN LIPID SCREEN [facility] Start: 01-01-2027 LIPID SCREEN LIPID SCREEN [facility] Start: 12-11-2026 [facility] Start: 09-25-2026 Diabetes Screening Diabetes Screenin g [facility] Start: 07-25-2026 DIABETES SCREEN DIABETES SCREEN [facility] Start: 07-25-2026 Diabetes Screening Diabetes Screenin [facility] Start: 05-30-2026 DIABETES SCREEN DIABETES SCREEN [facility] Start: 05-24-2026 DIABETES SCREEN DIABETES SCREEN [facility] Start: 05-02-2026 DIABETES SCREEN DIABETES SCREEN [facility] Start: 03-08-2026 Annual PCP Team [employer] Runner vilma Disease Visit Annual PCP Team Chronic Disease Visit [facility] Start: 03-08-2026 BP Controlled (<130/80) BP Controlle d (<130/80) [facility] Start: 02-22-2026 Screening for malign ant neoplasm of breast Mammogram Screening [facility] Start: 02-19-2026 Colonoscopy COLONOSCOPY [facility] Start: 02-19-2026 COLORECTAL CANCER SCREENING COLORECTAL CANCER SCREENING [facility] Start: 02-19-2026 Screening for malign ant neoplasm of colon [facility] Start: 02-12-2026 DIABETES SCREEN DIABETES SCREEN [facility] Start: 01-11-2026 Annual PCP Team [employer] vilma Disease Visit Annual PCP Team Chronic Disease Visit [facility] Start: 01-11-2026 BP Controlled (<130/80) BP Controlle d (<130/80) [facility] Start: 01-11-2026 Medicare Annual Well ness Visit Medicare Annual Wellness Visit [facility] Start: 01-05-2026 Complete blood count Hemoglobin/Mando tocrit [facility] Start: 01-05-2026 Creatinine measurement Serum Creatin ine [facility] Start: 08-24-2025 DIABETES SCREEN DIABETES SCREEN [facility] Start: 08-20-2025 Annual PCP Team [employer] vilma Disease Visit Annual PCP Team Chronic Disease Visit [facility] Start: 08-08-2025 DIABETES SCREEN DIABETES SCREEN [facility] Start: 07-19-2025 Influenza vaccination Influenza Vacc ine (#1) [facility] Start: 07-12-2025 End: 07-12-2025 Patient encounter procedure [facility] Comment on above: 6 month f/u Start: 07-09-2025 Patient [place] [facility] Start: 07-08-2025 Annual PCP Team [employer] vilma Disease Visit Annual PCP Team Chronic Disease Visit [facility] Start: 07-08-2025 BP Controlled (<130/80) BP Controlle d (<130/80) [facility] Start: 07-08-2025 Covid-19 Vaccine ( season) Covid-19 Vaccine () [facility] Comment on above: Postponed from 01/23 (Declined at this time) Start: 07-08-2025 RSV Vaccine (1 - 1-d ose 60+ series) RSV Vaccine (1 - 1-dose 60+ series) [facility] Comment on above: Postponed from 03/05 (Insurance Coverage) Start: 07-08-2025 RSV Vaccine (1 - Ris k 60-74 years 1-dose series) RSV Vaccine (1 - Risk 60-74 years 1-dose series) [facility] Comment on above: Postponed from 03/05 (Insurance Coverage) Start: 07-08-2025 Measurement of occul t blood in stool specimen using immunoassay [facility] Start: 07-08-2025 Consultation [facility] Start: 07-08-2025 Serum inorganic phos phate measurement [facility] Start: 07-08-2025 Thyroid stimulating hormone measurement [facility] Start: 07-07-2025 Following clinical p athway protocol [facility] Start: 07-07-2025 Assessment of risk o f venous thromboembolism [facility] Start: 07-07-2025 Catheterization of vein [facility] Start: 07-07-2025 Incentive spirometry [facility] Start: 07-07-2025 Insertion of cathete r into peripheral vein [facility] Start: 07-07-2025 Oxygen therapy [facility] Start: 07-07-2025 Providing care accor ding to standard [facility] Start: 07-07-2025 Provision of activit y privileges [facility] Start: 07-07-2025 Referral to occupati onal therapist [facility] Start: 07-07-2025 Referral to service [facility] Start: 07-07-2025 [facility] Start: 07-07-2025 Verification routine [facility] Start: 07-07-2025 Admission procedure [facility] Start: 07-07-2025 Hospital admission, emergency, from emergency room, medical nature [facility] Start: 07-07-2025 Patient referral to dietitian [facility] Start: 07-03-2025 Complete blood count Hemoglobin/Mando tocrit [facility] Start: 07-03-2025 Creatinine measurement Serum Creatin ine [facility] Start: 02-22-2025 End: 02-22-2025 Patient encounter procedure Radiology Comment on above: Dx: Asymptomatic men opause [Z78.0] Dx: Encounter for sc reening mammogram for breast cancer [Z12.31] Start: 02-18-2025 Covid-19 Vaccine (6 - 2024-25 season) Covid-19 Vaccine ( season) [facility] Start: 02-05-2025 DIABETES SCREEN DIABETES SCREEN [facility] Start: 01-23-2025 Complete blood count Hemoglobin/Mando tocrit [facility] Start: 01-11-2025 End: 04-12-2025 Bacteria identified in Urine by Culture [facility] Work Phone: Comment on above: Expected: 01/11/2025 , Expires: 04/12/2025 Start: 01-11-2025 End: 01-11-2025 Patient encounter procedure 01/11/2025 12:40 PM EST Office Visit [facility] [address] [place], [place] [phone] Lauren Camacho PA-C [address] [place] [phone] Medicare wellness [facility] Comment on above: Medicare wellness Start: 01-01-2025 DIABETES SCREEN DIABETES SCREEN [facility] Start: 12-26-2024 Annual PCP Team Motor Runner vilma Disease Visit Annual PCP Team Chronic Disease Visit [facility] Start: 12-25-2024 End: 03-26-2025 CBC W Auto Differential panel - Blood COMPLETE BLOOD COUNT AND DIFFERENTIAL Lab Routine Stage 3a chronic kidney disease (HCC) Anemia, unspecified type Low serum vitamin B12 Expected: 12/25/2024, Expires: 03/26/2025 [facility] Comment on above: Expected: 12/25/2024 , Expires: 03/26/2025 Start: 12-25-2024 End: 03-26-2025 Cobalamin (Vitamin B12) [Mass/volume] in Serum or Plasma VITAMIN B12 Lab Routine GERD without esophagitis Low serum vitamin B12 Medication management Expected: 12/25/2024, Expires: 03/26/2025 [facility] Work Phone: Comment on above: Expected: 12/25/2024 , Expires: 03/26/2025 Start: 12-25-2024 End: 03-26-2025 Comprehensive metabolic 2000 panel - Serum or Plasma COMPREHENSIVE METABOLIC PANEL Lab Routine Mixed hyperlipidemia Essential hypertension Stage 3a chronic kidney disease (HCC) Expected: 12/25/2024, Expires: 03/26/2025 [facility] Comment on above: Expected: 12/25/2024 , Expires: 03/26/2025 Start: 12-25-2024 End: 03-26-2025 Hemoglobin A1c in Blood HEMOGLOBIN A1C Lab Routine Elevated hemoglobin A1c Expected: 12/25/2024, Expires: 03/26/2025 [facility] Comment on above: Expected: 12/25/2024 , Expires: 03/26/2025 Start: 12-25-2024 End: 03-26-2025 Iron and Iron binding capacity panel - Serum or Plasma IRON AND TIBC Lab Routine Iron deficiency anemia, unspecified iron deficiency anemia type Expected: 12/25/2024, Expires: 03/26/2025 [facility] Comment on above: Expected: 12/25/2024 , Expires: 03/26/2025 Start: 12-25-2024 End: 03-26-2025 LIPID PANEL, NONFASTING LIPID PANEL, NONFASTING Lab Routine Mixed hyperlipidemia Essential hypertension Expected: 12/25/2024, Expires: 03/26/2025 [facility] Comment on above: Expected: 12/25/2024 , Expires: 03/26/2025 Start: 12-25-2024 End: 03-26-2025 Magnesium [Mass/volume] in Serum or Plasma MAGNESIUM Lab Routine GERD without esophagitis Medication management Expected: 12/25/2024, Expires: 03/26/2025 [facility] Comment on above: Expected: 12/25/2024 , Expires: 03/26/2025 Start: 12-25-2024 End: 03-26-2025 Urinalysis complete panel - Urine URINALYSIS, WITH MICROSCOPIC Lab Routine Mixed hyperlipidemia Essential hypertension Expected: 12/25/2024, Expires: 03/26/2025 [facility] Comment on above: Expected: 12/25/2024 , Expires: 03/26/2025 Start: 12-11-2024 Complete blood count Hemoglobin/Mando tocrit [facility] Start: 12-11-2024 Creatinine measurement Serum Creatin ine [facility] Start: 11-18-2024 Advance Directive Discussion Advance Directive Discussion [facility] Start: 09-25-2024 Annual PCP Team Motor Runner vilma Disease Visit Annual PCP Team Chronic Disease Visit [facility] Start: 09-25-2024 BP Controlled (<130/80) BP Controlle d (<130/80) [facility] Start: 09-25-2024 Hemoglobin/Hematocrit Hemoglobin/Hem atocrit [facility] Start: 09-25-2024 Serum Creatinine Serum Creatinine [facility] Start: 09-13-2024 Annual PCP Team Motor Runner vilma Disease Visit Annual PCP Team Chronic Disease Visit [facility] Start: 08-20-2024 End: 08-20-2024 Patient encounter procedure 08/20/2024 11:20 AM EDT Office Visit [facility] [address] [place], [place] [phone] Edna Umanzor APRN.[employer] [address] [place] [address] 6 week follow up muscle spasm [facility] Comment on above: 6 week follow up mus irma spasm Start: 07-25-2024 HEMOGLOBIN/HEMATOCRIT HEMOGLOBIN/HEM ATOCRIT [facility] Start: 07-25-2024 Serum Creatinine Serum Creatinine [facility] Start: 07-19-2024 Covid-19 Vaccine ( season) Covid-19 Vaccine ( season) [facility] Start: 07-19-2024 Covid-19 Vaccine ( season) Covid-19 Vaccine ( season) [facility] Start: 07-19-2024 Influenza vaccination Influenza Vacc ine (#1) [facility] Start: 07-08-2024 End: 07-08-2024 Patient encounter procedure 07/08/2024 1:40 PM EDT Office Visit [facility] [address] [place], [place] [phone] Ez Solitario MD [address] [place], [place] [phone] 6 month follow up [facility] Comment on above: 6 month follow up Start: 06-26-2024 End: 09-25-2024 25-hydroxyvitamin D3 [Mass/volume] in Serum or Plasma VITAMIN D 25 HYDROXY Lab Routine Osteopenia, senile Expected: 06/26/2024, Expires: 09/25/2024 [facility] Work Phone: Comment on above: Expected: 06/26/2024 , Expires: 09/25/2024 Start: 06-26-2024 End: 09-25-2024 CBC W Auto Differential panel - Blood CBC + DIFF Lab Routine Iron deficiency anemia, unspecified iron deficiency anemia type Expected: 06/26/2024, Expires: 09/25/2024 [facility] Work Phone: Comment on above: Expected: 06/26/2024 , Expires: 09/25/2024 Start: 06-26-2024 End: 09-25-2024 Comprehensive metabolic 2000 panel - Serum or Plasma COMP METABOLIC PANEL Lab Routine Stage 3a chronic kidney disease (HCC) Expected: 06/26/2024, Expires: 09/25/2024 [facility] Work Phone: Comment on above: Expected: 06/26/2024 , Expires: 09/25/2024 Start: 06-26-2024 End: 09-25-2024 Ferritin [Mass/volume] in Serum or Plasma FERRITIN BLD Lab Routine Iron deficiency anemia, unspecified iron deficiency anemia type Expected: 06/26/2024, Expires: 09/25/2024 [facility] Work Phone: Comment on above: Expected: 06/26/2024 , Expires: 09/25/2024 Start: 06-26-2024 End: 09-25-2024 Hemoglobin A1c in Blood HGB A1C Lab Routine Elevated hemoglobin A1c Expected: 06/26/2024, Expires: 09/25/2024 [facility] Work Phone: Comment on above: Expected: 06/26/2024 , Expires: 09/25/2024 Start: 06-26-2024 End: 09-25-2024 Iron and Iron binding capacity panel - Serum or Plasma IRON + TIBC Lab Routine Iron deficiency anemia, unspecified iron deficiency anemia type Expected: 06/26/2024, Expires: 09/25/2024 [facility] Work Phone: Comment on above: Expected: 06/26/2024 , Expires: 09/25/2024 Start: 06-26-2024 End: 09-25-2024 LIPID PANEL, NONFASTING LIPID PANEL, NONFASTING Lab Routine Mixed hyperlipidemia Expected: 06/26/2024, Expires: 09/25/2024 [facility] Work Phone: Comment on above: Expected: 06/26/2024 , Expires: 09/25/2024 Start: 06-07-2024 ANNUAL PCP TEAM ACCOUNTS RECEIVABLE COORDINATOR VILMA DISEASE VISIT ANNUAL PCP TEAM CHRONIC DISEASE VISIT [facility] Start: 05-30-2024 SERUM CREATININE SERUM CREATININE [facility] Start: 05-24-2024 ANNUAL PCP TEAM ACCOUNTS RECEIVABLE COORDINATOR VILMA DISEASE VISIT ANNUAL PCP TEAM CHRONIC DISEASE VISIT [facility] Start: 05-24-2024 BP CONTROLLED (<130/80) BP CONTROLLE D (<130/80) [facility] Start: 05-24-2024 SERUM CREATININE SERUM CREATININE [facility] Start: 05-18-2024 Shingrix Vaccine (2 of 2) Mathews grix Vaccine (2 of 2) [facility] Start: 05-02-2024 ANNUAL PCP TEAM ACCOUNTS RECEIVABLE COORDINATOR VILMA DISEASE VISIT ANNUAL PCP TEAM CHRONIC DISEASE VISIT [facility] Start: 05-02-2024 BP CONTROLLED (<130/80) BP CONTROLLE D (<130/80) [facility] Start: 05-02-2024 SERUM CREATININE SERUM CREATININE [facility] Start: 02-13-2024 ANNUAL PCP TEAM ACCOUNTS RECEIVABLE COORDINATOR VILMA DISEASE VISIT ANNUAL PCP TEAM CHRONIC DISEASE VISIT [facility] Start: 02-13-2024 BP CONTROLLED (<130/80) BP CONTROLLE D (<130/80) [facility] Start: 02-13-2024 HEMOGLOBIN/HEMATOCRIT HEMOGLOBIN/HEM ATOCRIT [facility] Start: 02-13-2024 SERUM CREATININE SERUM CREATININE [facility] Start: 02-13-2024 SHINGRIX VACCINE (1 of 2) MATHEWS GRIX VACCINE (1 of 2) [facility] Comment on above: Postponed from 03/05 (Insurance Coverage) Start: 02-13-2024 Urine microalbumin profile [facility] Comment on above: Postponed from 03/05 (Insurance Coverage) Start: 01-24-2024 End: 04-24-2024 CBC W Auto Differential panel - Blood CBC + DIFF Lab Routine Medication management Expected: 01/24/2024, Expires: 04/24/2024 [facility] Work Phone: Comment on above: Expected: 01/24/2024 , Expires: 04/24/2024 Start: 01-24-2024 Covid-19 Vaccine () Covid-19 Vaccine () [facility] Start: 01-24-2024 End: 04-24-2024 Ferritin [Mass/volume] in Serum or Plasma FERRITIN BLD Lab Routine Iron deficiency anemia, unspecified iron deficiency anemia type Expected: 01/24/2024, Expires: 04/24/2024 [facility] Work Phone: Comment on above: Expected: 01/24/2024 , Expires: 04/24/2024 Start: 01-24-2024 End: 04-24-2024 Iron and Iron binding capacity panel - Serum or Plasma IRON + TIBC Lab Routine Iron deficiency anemia, unspecified iron deficiency anemia type Expected: 01/24/2024, Expires: 04/24/2024 [facility] Work Phone: Comment on above: Expected: 01/24/2024 , Expires: 04/24/2024 Start: 09-25-2023 End: 12-25-2023 Bacteria identified in Urine by Culture URINE CULTURE Microbiology Routine Vaginal discharge Stage 3a chronic kidney disease (HCC) Other general symptoms and signs Expected: 09/25/2023, Expires: 12/25/2023 [facility] Work Phone: Comment on above: Expected: 09/25/2023 , Expires: 12/25/2023 Start: 09-25-2023 End: 12-25-2023 Basic metabolic 2000 panel - Serum or Plasma [facility] Work Phone: Comment on above: Expected: 09/25/2023 , Expires: 12/25/2023 Start: 09-25-2023 End: 12-25-2023 Urinalysis complete panel - Urine URINALYSIS, WITH MICROSCOPIC Lab Routine Vaginal discharge Stage 3a chronic kidney disease (HCC) Expected: 09/25/2023, Expires: 12/25/2023 [facility] Work Phone: Comment on above: Expected: 09/25/2023 , Expires: 12/25/2023 Start: 08-24-2023 SERUM CREATININE SERUM CREATININE [facility] Start: 08-13-2023 ANNUAL PCP TEAM ACCOUNTS RECEIVABLE COORDINATOR VILMA DISEASE VISIT ANNUAL PCP TEAM CHRONIC DISEASE VISIT [facility] Start: 08-13-2023 BP CONTROLLED (<130/80) BP CONTROLLE D (<130/80) [facility] Start: 08-08-2023 HEMOGLOBIN/HEMATOCRIT HEMOGLOBIN/HEM ATOCRIT [facility] Start: 08-08-2023 SERUM CREATININE SERUM CREATININE [facility] Start: 08-06-2023 Patient discharge [facility] Start: 08-05-2023 [facility] Start: 08-05-2023 [facility] Start: 08-05-2023 Urine culture Urine Culture [facility] Start: 08-03-2023 Removal of urinary catheter [facility] Start: 08-02-2023 End: 10-02-2023 CBC W Auto Differential panel - Blood CBC + DIFF Lab Routine Stage 3a chronic kidney disease (HCC) Low serum vitamin B12 Expected: 08/02/2023, Expires: 10/02/2023 [facility] Work Phone: Comment on above: Expected: 08/02/2023 , Expires: 10/02/2023 Start: 08-02-2023 End: 10-02-2023 Cobalamin (Vitamin B12) [Mass/volume] in Serum or Plasma VITAMIN B12 BLOOD Lab Routine GERD without esophagitis Low serum vitamin B12 Medication management Expected: 08/02/2023, Expires: 10/02/2023 [facility] Work Phone: Comment on above: Expected: 08/02/2023 , Expires: 10/02/2023 Start: 08-02-2023 End: 10-02-2023 Comprehensive metabolic 2000 panel - Serum or Plasma COMP METABOLIC PANEL Lab Routine Essential hypertension Mixed hyperlipidemia Elevated fasting blood sugar Stage 3a chronic kidney disease (HCC) Expected: 08/02/2023, Expires: 10/02/2023 [facility] Work Phone: Comment on above: Expected: 08/02/2023 , Expires: 10/02/2023 Start: 08-02-2023 End: 10-02-2023 Hemoglobin A1c in Blood HGB A1C Lab Routine Elevated fasting blood sugar Expected: 08/02/2023, Expires: 10/02/2023 [facility] Work Phone: Comment on above: Expected: 08/02/2023 , Expires: 10/02/2023 Start: 08-02-2023 End: 10-02-2023 LIPID PANEL, NONFASTING LIPID PANEL, NONFASTING Lab Routine Essential hypertension Mixed hyperlipidemia Expected: 08/02/2023, Expires: 10/02/2023 [facility] Work Phone: Comment on above: Expected: 08/02/2023 , Expires: 10/02/2023 Start: 08-02-2023 End: 10-02-2023 Magnesium [Mass/volume] in Serum or Plasma MAGNESIUM BLD Lab Routine GERD without esophagitis Medication management Expected: 08/02/2023, Expires: 10/02/2023 [facility] Work Phone: Comment on above: Expected: 08/02/2023 , Expires: 10/02/2023 Start: 08-02-2023 End: 10-02-2023 Urinalysis complete panel - Urine URINALYSIS, WITH MICROSCOPIC Lab Routine Essential hypertension Mixed hyperlipidemia Stage 3a chronic kidney disease (HCC) Expected: 08/02/2023, Expires: 10/02/2023 [facility] Work Phone: Comment on above: Expected: 08/02/2023 , Expires: 10/02/2023 Start: 08-01-2023 Following clinical p athway protocol [facility] Start: 08-01-2023 Application of intermittent pneumatic compression device [facility] Start: 08-01-2023 Ambulation without limitation [facility] Start: 08-01-2023 Catheterization of vein [facility] Start: 08-01-2023 Measuring intake and output [facility] Start: 08-01-2023 Notification of physician [facility] Start: 08-01-2023 Referral to occupati onal therapist [facility] Start: 08-01-2023 Referral to service [facility] Start: 08-01-2023 Vital signs measurements [facility] Start: 08-01-2023 [facility] Start: 08-01-2023 Partial resection of colon Col ectomy Mathieu (Not Applicable) [facility] Start: 08-01-2023 Admission procedure [facility] Start: 08-01-2023 Verification routine [facility] Start: 08-01-2023 [facility] Start: 08-01-2023 Patient referral to dietitian [facility] Start: 07-28-2023 Repair complex scalp/arm/leg 2.6-7.5 cm CMPLX RPR S/A/L 2.6-7.5 CM [facility] Start: 07-28-2023 Repair complex scalp/arm/leg ea addl 5 cm/< CMPLX RPR S/A/L ADDL 5 CM/> [facility] Start: 07-24-2023 End: 09-23-2023 Basic metabolic 2000 panel - Serum or Plasma BASIC METABOLIC PNL Lab Routine Medication management Essential hypertension Expected: 07/24/2023, Expires: 09/23/2023 [facility] Work Phone: Comment on above: Expected: 07/24/2023 , Expires: 09/23/2023 Start: 07-19-2023 Covid-19 Vaccine ( season) Covid-19 Vaccine ( season) [facility] Start: 07-19-2023 Influenza vaccination [facility] Start: 06-14-2023 COVID-19 VACCINE (4 - Moderna series) COVID-19 VACCINE (4 - Moderna series) [facility] Start: 05-30-2023 End: 07-30-2023 Basic metabolic 2000 panel - Serum or Plasma BASIC METABOLIC PNL Lab Routine Peripheral edema Expected: 05/30/2023, Expires: 07/30/2023 [facility] Work Phone: Comment on above: Expected: 05/30/2023 , Expires: 07/30/2023 Start: 05-24-2023 End: 07-24-2023 Basic metabolic 2000 panel - Serum or Plasma [facility] Work Phone: Comment on above: Expected: 05/24/2023 , Expires: 07/24/2023 Start: 05-17-2023 Influenza vaccination INFLUENZA (#1) [facility] Comment on above: Postponed from 07/19 (Declined at this time) Start: 05-02-2023 End: 07-02-2023 Comprehensive metabolic 2000 panel - Serum or Plasma [facility] Work Phone: Comment on above: Expected: 05/02/2023 , Expires: 07/02/2023 Start: 05-02-2023 End: 07-02-2023 Natriuretic peptide.B prohormone N-Terminal [Mass/volume] in Serum or Plasma [facility] Work Phone: Comment on above: Expected: 05/02/2023 , Expires: 07/02/2023 Start: 02-11-2023 End: 04-13-2023 Basic metabolic 2000 panel - Serum or Plasma BASIC METABOLIC PNL Lab Routine Stage 3a chronic kidney disease (HCC) Expected: 02/11/2023, Expires: 04/13/2023 [facility] Work Phone: Comment on above: Expected: 02/11/2023 , Expires: 04/13/2023 Start: 02-11-2023 End: 04-13-2023 CBC W Auto Differential panel - Blood CBC + DIFF Lab Routine Stage 3a chronic kidney disease (HCC) Low serum vitamin B12 Anemia, unspecified type Expected: 02/11/2023, Expires: 04/13/2023 [facility] Work Phone: Comment on above: Expected: 02/11/2023 , Expires: 04/13/2023 Start: 02-11-2023 End: 04-13-2023 Cobalamin (Vitamin B12) [Mass/volume] in Serum or Plasma VITAMIN B12 BLOOD Lab Routine Low serum vitamin B12 Expected: 02/11/2023, Expires: 04/13/2023 [facility] Work Phone: Comment on above: Expected: 02/11/2023 , Expires: 04/13/2023 Start: 02-11-2023 End: 04-13-2023 Hemoglobin A1c in Blood HGB A1C Lab Routine Elevated fasting blood sugar Expected: 02/11/2023, Expires: 04/13/2023 [facility] Work Phone: Comment on above: Expected: 02/11/2023 , Expires: 04/13/2023 Start: 02-07-2023 ANNUAL PCP TEAM ACCOUNTS RECEIVABLE COORDINATOR VILMA DISEASE VISIT ANNUAL PCP TEAM CHRONIC DISEASE VISIT [facility] Start: 02-07-2023 BP CONTROLLED (<130/80) BP CONTROLLE D (<130/80) [facility] Start: 02-07-2023 Urine microalbumin profile DTAP,TDAP ,TD (1 - Tdap) [facility] Comment on above: Postponed from 03/05 (Insurance Coverage) Start: 02-05-2023 HEMOGLOBIN/HEMATOCRIT HEMOGLOBIN/HEM [facility] Start: 02-05-2023 SERUM CREATININE SERUM CREATININE [facility] Start: 01-01-2023 HEMOGLOBIN/HEMATOCRIT HEMOGLOBIN/HEM [facility] Start: 01-01-2023 SERUM CREATININE SERUM CREATININE [facility] Start: 11-18-2022 ADVANCE DIRECTIVE DISCUSSION ADVANCE DIRECTIVE DISCUSSION [facility] Start: 09-05-2022 ANNUAL PCP TEAM ACCOUNTS RECEIVABLE COORDINATOR VILMA DISEASE VISIT ANNUAL PCP TEAM CHRONIC DISEASE VISIT [facility] Start: 07-27-2022 End: 09-26-2022 CBC W Auto Differential panel - Blood CBC + DIFF Lab Routine Stage 3a chronic kidney disease (HCC) Low serum vitamin B12 Expected: 07/27/2022, Expires: 09/26/2022 [facility] Work Phone: Comment on above: Expected: 07/27/2022 , Expires: 09/26/2022 Start: 07-27-2022 End: 09-26-2022 Comprehensive metabolic 2000 panel - Serum or Plasma COMP METABOLIC PANEL Lab Routine Essential hypertension Mixed hyperlipidemia Stage 3a chronic kidney disease (HCC) Expected: 07/27/2022, Expires: 09/26/2022 [facility] Work Phone: Comment on above: Expected: 07/27/2022 , Expires: 09/26/2022 Start: 07-27-2022 End: 09-26-2022 Hemoglobin A1c/Hemoglobin.total in Blood HGB A1C Lab Routine Elevated fasting blood sugar Expected: 07/27/2022, Expires: 09/26/2022 [facility] Work Phone: Comment on above: Expected: 07/27/2022 , Expires: 09/26/2022 Start: 07-27-2022 End: 09-26-2022 LIPID PANEL, NONFASTING LIPID PANEL, NONFASTING Lab Routine Essential hypertension Mixed hyperlipidemia Expected: 07/27/2022, Expires: 09/26/2022 [facility] Work Phone: Comment on above: Expected: 07/27/2022 , Expires: 09/26/2022 Start: 07-27-2022 End: 09-26-2022 Magnesium [Mass/volume] in Serum or Plasma MAGNESIUM BLD Lab Routine GERD without esophagitis Medication management Expected: 07/27/2022, Expires: 09/26/2022 [facility] Work Phone: Comment on above: Expected: 07/27/2022 , Expires: 09/26/2022 Start: 07-27-2022 End: 09-26-2022 Urinalysis complete panel - Urine URINALYSIS, WITH MICROSCOPIC Lab Routine Essential hypertension Mixed hyperlipidemia Stage 3a chronic kidney disease (HCC) Expected: 07/27/2022, Expires: 09/26/2022 [facility] Work Phone: Comment on above: Expected: 07/27/2022 , Expires: 09/26/2022 Start: 07-27-2022 End: 09-26-2022 VITAMIN B12 BLOOD VITAMIN B12 BLOOD Lab Routine Low serum vitamin B12 Expected: 07/27/2022, Expires: 09/26/2022 [facility] Work Phone: Comment on above: Expected: 07/27/2022 , Expires: 09/26/2022 Start: 07-19-2022 Influenza vaccination INFLUENZA (#1) [facility] Start: 02-05-2022 End: 04-07-2022 CBC W Auto Differential panel - Blood [facility] Work Phone: Comment on above: Expected: 02/05/2022 , Expires: 04/07/2022 Start: 02-05-2022 End: 04-07-2022 Comprehensive metabolic 2000 panel - Serum or Plasma [facility] Work Phone: Comment on above: Expected: 02/05/2022 , Expires: 04/07/2022 Start: 02-05-2022 End: 04-07-2022 Hemoglobin A1c/Hemoglobin.total in Blood [facility] Work Phone: Comment on above: Expected: 02/05/2022 , Expires: 04/07/2022 Start: 02-05-2022 End: 04-07-2022 LIPID PANEL, NONFASTING [facility] Work Phone: Comment on above: Expected: 02/05/2022 , Expires: 04/07/2022 Start: 02-05-2022 End: 04-07-2022 Magnesium [Mass/volume] in Serum or Plasma [facility] Work Phone: Comment on above: Expected: 02/05/2022 , Expires: 04/07/2022 Start: 02-05-2022 End: 04-07-2022 Urinalysis complete panel - Urine [facility] Work Phone: Comment on above: Expected: 02/05/2022 , Expires: 04/07/2022 Start: 02-05-2022 End: 04-07-2022 VITAMIN B12 BLOOD [facility] Work Phone: Comment on above: Expected: 02/05/2022 , Expires: 04/07/2022 Start: 01-16-2022 BP CONTROLLED (<130/80) BP CONTROLLE D (<130/80) [facility] Start: 11-18-2021 ADVANCE DIRECTIVE DISCUSSION ADVANCE DIRECTIVE DISCUSSION [facility] Start: 11-04-2021 Mammography [facility] Start: 11-04-2021 Screening for malign ant neoplasm of breast Mammogram Screening [facility] Start: 07-19-2021 COVID-19 VACCINE (3 - Booster for Moderna series) COVID-19 VACCINE (3 - Booster for Moderna series) [facility] Start: 04-13-2021 COVID-19 VACCINE (3 - Booster for Moderna series) COVID-19 VACCINE (3 - Booster for Moderna series) [facility] Start: 02-19-2021 Colonoscopy COLONOSCOPY [facility] Start: 02-19-2021 COLORECTAL CANCER SCREENING COLORECTAL CANCER SCREENING [facility] Start: 2011 RSV Vaccine (1 - 1-d ose 60+ series) RSV Vaccine (1 - 1-dose 60+ series) [facility] Start: 2001 SHINGRIX VACCINE (1 of 2) MATHEWS GRIX VACCINE (1 of 2) [facility] Start: 1996 COLOGUARD (FIT-DNA) COLOGUARD (FIT-D NA) [facility] Start: [address] COLONOGRAPHY [facility] Start: 1996 FECAL OCCULT BLOOD FECAL OCCULT BLOO D [facility] Start: 1996 Screening for malign ant neoplasm of colon [facility] Start: 1996 SIGMOIDOSCOPY SIGMOIDOSCOPY [facility] Start: 1970 Urine microalbumin profile [facility] Anion gap in Serum o r Plasma [facility] Anion gap in Serum o r Plasma [facility] Anion gap in Serum o r Plasma [facility] End: 02-10-2026 BD DXA TRABECULAR BONE SCORE (TBS) BD DXA TRABECULAR BONE SCORE (TBS) Radiology Routine Asymptomatic menopause 1 Occurrences starting 01/11/2025 until 02/10/2026 [facility] Comment on above: 1 Occurrences starti ng 01/11/2025 until 02/10/2026 Bilirubin measuremen t, urine [facility] BUN/Creatinine ratio [facility] BUN/Creatinine ratio [facility] BUN/Creatinine ratio [facility] Calcium [Mass/volume ] in Serum or Plasma [facility] Calcium [Mass/volume ] in Serum or Plasma [facility] Calcium [Mass/volume ] in Serum or Plasma [facility] Carbon dioxide, tota l [Moles/volume] in Central venous blood [facility] Carbon dioxide, tota l [Moles/volume] in Central venous blood [facility] Carbon dioxide, tota l [Moles/volume] in Central venous blood [facility] End: 10-07-2024 COLONOSCOPY DIAGNOSTIC COLONOSCOPY DIAGNOSTIC Endoscopy Routine Iron deficiency anemia, unspecified iron deficiency anemia type 1 Occurrences starting 10/07/2023 until 10/07/2024 [facility] Work Phone: Comment on above: 1 Occurrences starti ng 10/07/2023 until 10/07/2024 Creatinine [Mass/vol ume] in Serum or Plasma [facility] Creatinine [Mass/vol ume] in Serum or Plasma [facility] Creatinine [Mass/vol ume] in Serum or Plasma [facility] End: 10-30-2025 DBT Breast - bilateral screening SONIA SCREENING W GERMAN Radiology Routine Encounter for screening mammogram for breast cancer 1 Occurrences starting 09/30/2024 until 10/30/2025 [facility] Work Phone: Comment on above: 1 Occurrences starti ng 09/30/2024 until 10/30/2025 DBT Breast - bilater al screening SONIA SCREENING W GERMAN Radiology Routine Encounter for screening mammogram for breast cancer 02/22/2025 1:36 PM EDT [facility] Work Phone: End: 03-09-2023 Dxa bone density study 1/> sites axial skel DXA-AXIAL SKELETON Radiology Routine Osteopenia, senile Primary ovarian failure 1 Occurrences starting 02/07/2022 until 03/09/2023 [facility] Work Phone: Comment on above: 1 Occurrences starti ng 02/07/2022 until 03/09/2023 End: 02-10-2026 DXA Skeletal system.axial Views for bone density DXA-AXIAL SKELETON Radiology Routine Asymptomatic menopause 1 Occurrences starting 01/11/2025 until 02/10/2026 [facility] Comment on above: 1 Occurrences starti ng 01/11/2025 until 02/10/2026 End: 05-02-2024 ECG COMPLETE ECG COMPLETE ECG Routine Essential hypertension 1 Occurrences starting 05/02/2023 until 05/02/2024 [facility] Work Phone: Comment on above: 1 Occurrences starti ng 05/02/2023 until 05/02/2024 ECG COMPLETE ECG COMPLETE ECG 05/02/2023 2:45 PM EDT [facility] End: 05-02-2024 Echocardiography ECHO Cardiology Routine Lower extremity edema 1 Occurrences starting 05/02/2023 until 05/02/2024 [facility] Work Phone: Comment on above: 1 Occurrences starti ng 05/02/2023 until 05/02/2024 End: 10-07-2024 EGD DIAGNOSTIC EGD DIAGNOSTIC Endoscopy Routine Iron deficiency anemia, unspecified iron deficiency anemia type 1 Occurrences starting 10/07/2023 until 10/07/2024 [facility] Work Phone: Comment on above: 1 Occurrences starti ng 10/07/2023 until 10/07/2024 Erythrocyte mean corpuscular volume determination [facility] Erythrocyte mean corpuscular volume determination [facility] Erythrocyte mean corpuscular volume determination [facility] Glucose [Mass/volume ] in Serum or Plasma [facility] Glucose [Mass/volume ] in Serum or Plasma [facility] Glucose [Mass/volume ] in Serum or Plasma [facility] Hematocrit [Volume Fraction] of Blood [facility] Hematocrit [Volume Fraction] of Blood [facility] Hematocrit [Volume Fraction] of Blood [facility] Hemoglobin [Mass/vol ume] in Blood [facility] Hemoglobin [Mass/vol ume] in Blood [facility] Hemoglobin [Mass/vol ume] in Blood [facility] Hemoglobin [Presence ] in Urine [facility] Leukocytes [#/volume ] in Blood [facility] Leukocytes [#/volume ] in Blood [facility] Leukocytes [#/volume ] in Blood [facility] Magnesium measurement [facility] End: 11-21-2024 SONIA SCREENING SONIA SCREENING Radiology Routine Encounter for screening mammogram for breast cancer 1 Occurrences starting 10/23/2023 until 11/21/2024 [facility] Work Phone: Comment on above: 1 Occurrences starti ng 10/23/2023 until 11/21/2024 Mean corpuscular hemoglobin concentration determination [facility] Mean corpuscular hemoglobin concentration determination [facility] Mean corpuscular hemoglobin concentration determination [facility] Mean corpuscular hemoglobin determination [facility] Mean corpuscular hemoglobin determination [facility] Mean corpuscular hemoglobin determination [facility] Measurement of keton es in urine using dipstick [facility] Measurement of renal function [facility] Measurement of renal function [facility] Measurement of renal function [facility] Microscopic urinalysis [facility] Neutrophil count [facility] Neutrophil count [facility] Neutrophil count [facility] Neutrophil percent differential count [facility] Neutrophil percent differential count [facility] Neutrophil percent differential count [facility] Patient Education ED Head Injury (Adult) ED Laceration Scalp Stitches or [place] [facility] Work Phone: Patient referral [facility] Work Phone: pH of Urine [facility] Platelets [#/volume] in Blood [facility] Platelets [#/volume] in Blood [facility] Platelets [#/volume] in Blood [facility] Potassium measurement [facility] Potassium measurement [facility] Potassium measurement [facility] Red blood cell count [facility] Red blood cell count [facility] Red blood cell count [facility] Red cell distributio n width determination [facility] Red cell distributio n width determination [facility] Red cell distributio n width determination [facility] Serum chloride measurement [facility] Serum chloride measurement [facility] Serum chloride measurement [facility] Sodium measurement [facility] Sodium measurement [facility] Sodium measurement [facility] Specific gravity of Urine [facility] Urea nitrogen [Mass/volume] in Serum or Plasma [facility] Urea nitrogen [Mass/volume] in Serum or Plasma [facility] Urea nitrogen [Mass/volume] in Serum or Plasma [facility] Urinalysis, blood, qualitative [facility] Urine dipstick for glucose [facility] Urine dipstick for leukocyte esterase [facility] Urine dipstick for nitrite [facility] Urine dipstick for protein [facility] Urine examination [facility] Urine microscopy: epithelial cells [facility] Urine Microscopy: wh ite cells [facility] Urobilinogen [Presen ce] in Urine [facility] End: 05-24-2024 US LEG VEIN DVT [facility] US LEG VEIN DVT [facility] Vascular Lab Routine Peripheral edema Leg swelling 1 Occurrences starting 05/24/2023 until 05/24/2024 [facility] Work Phone: Comment on above: 1 Occurrences starti ng 05/24/2023 until 05/24/2024 End: 09-19-2025 XR Lumbar spine AP and Lateral and oblique XR LUMBAR PARS DEFECT 4V AP/LAT/BOTH OBL Radiology Routine Left leg pain 1 Occurrences starting 08/20/2024 until 09/19/2025 [facility] Work Phone: Comment on above: 1 Occurrences starti ng 08/20/2024 until 09/19/2025 XR Lumbar spine AP a nd Lateral and oblique XR LUMBAR PARS DEFECT 4V AP/LAT/BOTH OBL Radiology Routine Left leg pain 08/20/2024 12:02 PM EDT [facility] End: 09-19-2025 XR Pelvis and Hip - left AP and Lateral frog XR HIP GENERAL 3V PELV/AP/LAT LEFT Radiology Routine Left leg pain 1 Occurrences starting 08/20/2024 until 09/19/2025 [facility] Comment on above: 1 Occurrences starti ng 08/20/2024 until 09/19/2025 XR Pelvis and Hip - left AP and Lateral frog XR HIP GENERAL 3V PELV/AP/LAT LEFT Radiology Routine Left leg pain 08/20/2024 12:02 PM EDT [facility] Immunizations Immunization Date Immunization Notes Care Provider Susana lal 08-20-2024 COVID-19 vaccine, ag e 12+ yr ([employer] [facility]) Edna Umanzor RECONSIGNMENT CLERK.[employer] Work Phone: [facility] 08-20-2024 influenza, high dose seasonal, preservative-free Edna Umanzor APRN.[employer] Work Phone: [facility] 08-20-2024 influenza virus vacc ine, unspecified formulation Ez Solitario MD Work Phone: [facility] 06-02-2024 zoster vaccine recombinant Ez Solitario MD Work Phone: [facility] 03-23-2024 tetanus toxoid, redu judith diphtheria toxoid, and acellular pertussis vaccine, adsorbed Ez Solitario MD Work Phone: [facility] 03-23-2024 tetanus toxoid, unspecified formulation Lauren Camacho PA-C Work Phone: [facility] 03-23-2024 zoster vaccine recombinant Ez Solitario MD Work Phone: [facility] 09-25-2023 COVID-19 vaccine, ag e 12+ yr, season ([employer]) Ez Solitario MD Work Phone: [facility] 09-25-2023 influenza (HD-IIV4) vaccine, age 65+ yr, high dose, quadrivalent, PF (FLUZONE HIGH-DOSE) Ez Solitario MD Work Phone: [facility] 09-25-2023 influenza virus vacc ine, unspecified formulation Ez Solitario MD Work Phone: [facility] 02-12-2023 COVID-19 booster vaccine, age 12+ yr, bivalent ([employer]) Ez Solitario MD Work Phone: [facility] 07-20-2021 influenza, high-dose , quadrivalent vaccine (FLUZONE HIGH DOSE QUADRIVALENT) Ez Solitario MD Work Phone: [facility] 07-20-2021 influenza virus vacc ine, unspecified formulation Ez Solitario MD Work Phone: [facility] 02-17-2021 Covid (Moderna) Dr. Ez Solitario Work Phone: [facility] 02-16-2021 COVID-19 vaccine, fu ll dose (MODERNA) Ez Solitario MD Work Phone: [facility] Work Phone: 01-20-2021 Anuid (Moderna) Dr. Ez Solitario Work Phone: [facility] 07-16-2020 Influenza High-Dose Quadrivalent Dr. Ez Solitario Work Phone: [facility] 07-16-2020 influenza, high dose seasonal, preservative-free Ez Solitario MD Work Phone: [facility] 09-22-2019 Influenza, high dose seasonal Dr. Ez Solitario MD Work Phone: [facility] 09-22-2019 influenza, high dose seasonal, preservative-free Ez Solitario MD Work Phone: [facility] 09-02-2018 Influenza, high dose seasonal Dr. Ez Solitario MD Work Phone: [facility] 09-02-2018 influenza, high dose seasonal, preservative-free Ez Solitario MD Work Phone: [facility] 06-06-2018 pneumococcal polysaccharide vaccine, 23 valent Ez Solitario MD Work Phone: [facility] 09-11-2017 influenza, high dose seasonal, preservative-free Ez Solitario MD Work Phone: [facility] 09-11-2017 Seasonal trivalent influenza vaccine, adjuvanted, preservative free Dr. Ez Solitario Work Phone: [facility] 06-05-2017 pneumococcal conjuga te vaccine, 13 valent Ez Solitario MD Work Phone: [facility] 08-31-2016 Influenza, high dose seasonal Dr. Ez Solitario MD Work Phone: [facility] 08-31-2016 influenza, high dose seasonal, preservative-free Ez Solitario MD Work Phone: [facility] Work Phone: Payers Date Payer Category Payer Medicaid [id number] 2024 Self-pay [id number] 2024 Unknown [id number] 2016 Medicare MEDICARE MEDICAR E A AND B [id number] 2016-Present [phone] [place] [address] Medicare [id number] 2016 Medicare [id number] 2016 Medicare [id number] 2015 [facility] ANTHEM BC BS FEP PPO [id number] 2015 Unknown ANTHEM ANTHEM BC BS FEP PPO [id number] 2015-Present [phone] [address] [place] [phone] PPO [id number] 2015 Unknown ANTHEM ANTHEM BC BS FEP PPO [id number] 2015-Present [phone] [address] [place] [id number] PPO [id number] 2012 Unknown [id number] 1950 Unknown [id number] Unknown [id number] Unknown [id number] Unknown [id number] Unknown [id number] Unknown [id number] Unknown [id number] Unknown [id number] Social History Date Type Detail Facility Start: 02-07-2016 End: 07-07-2025 Tobacco smoking status NHIS Never smoked tobacco [facility] Work Phone: Start: 02-07-2016 End: 08-13-2022 Tobacco use and exposure Smokeless tobacco non-user [facility] Work Phone: Start: 09-05-2021 End: 01-11-2025 Alcohol intake Current drinker of alcohol (finding) [facility] Start: 12-25-2018 History SDOH Alcohol Comment approximately 1-2 beers,wine daily [facility] Start: 1950 Sex Assigned At Not on file [facility] Start: 01-28-2022 End: 08-13-2022 Exposure to SARS-CoV-2 (event) Not sure [facility] Start: 08-13-2022 History SDOH Alcohol Comment approximately 1-2 beers/wine daily [facility] Start: 07-21-2016 End: 08-01-2023 Tobacco smoking status NHIS Unknown if ever smoked [facility] Start: 1950 Sex Assigned At Female W [facility] Start: 05-24-2023 End: 09-25-2023 History of Social function [facility] Start: 05-24-2023 End: 09-25-2023 Tobacco use panel [facility] Start: 02-06-2016 Adult Depression Screening Assessment 0 [facility] Tobacco smoking status No Smoking Status Entered [facility] NEGATED: Highlighted row [facility] Medical Equipment Procedure Code Equipment Code Equipment Origin al Text Equipment Identifier Dates Hemicolectomy RELOAD, SR75 SELECTABLE FDA Start: 08-01-2023 Hemicolectomy STAPLER,[id number] FDA Start: 08-01-2023 Hemicolectomy RELOAD, SR75 SELECTABLE FDA Start: 08-01-2023 Hemicolectomy STAPLER,[id number] FDA Start: 08-01-2023 Hemicolectomy RELOAD, SR75 SELECTABLE FDA Start: 08-01-2023 Hemicolectomy STAPLER,[id number] FDA Start: 08-01-2023 Goals Date Patient Goal Desired Activity /State Functional Status Date Assessment Result Facility 07-08-2025 Functional status Ambulates [facility] Work Phone: 08-06-2023 Functional status Ambulates;Chair [facility] Work Phone: Mental Status Date Assessment Result Facility 07-08-2025 Cognitive function Voice/Name [facility] Work Phone: 07-07-2025 Cognitive function Level Of Cons ciousness Awake;Alert;Appropriate;Follow s Commands [facility] Work Phone: 08-06-2023 Cognitive function Voice/Name [facility] Work Phone: Clinical Notes 06-05-2017 to 07-09-2025 Note Date & Type Note Facility 07-09-2025 Note [facility] Medical Records Department [address] [place] [address] Discharge Summary 07/09/2512 MR#: [id number] Acct: [id number] Name: PRASHANT SHEFFIELD Rep #: [id number] : 1950 75 From: Davin Kirkland MD PCP: Dr. Ez Solitario MD Status:DIS ROXIE Location: [facility] [id number] Providers Date of Admission: 07/07/25 Date of Discharge: 07/08/25 Primary Care Physician: Dr. Ez Solitario MD Reason For Visit: GENERALIZED WEAKNESS Diagnosis Discharge Diagnosis (1) Generalized muscle weakness: Status: Acute Code(s): M62.81 - Muscle weakness (generalized) Plan Patient is a 75 F with past medical history significant for Parkinson's disease resident [facility] who was brought to the emergency department with generalized weakness. 1. Physical debility ??? Patient has underlying Parkinson disease contributing to her symptoms. Patient has been admitted to a regular nursing floor requested for PT/OT eval and outreach and education social worker to assist with discharge planning. With patient also complaining of muscle aches decision was made to hold patient's simvastatin ??? 07/08/2025; patient CPK levels ESR and CRP all came back within normal limits. Will continue to hold simvastatin requested for PT OT eval 2. Myalgia ??? Ordered ESR held patient simvastatin 3. Dyslipidemia ??? Patient is on simvastatin held given above reasons 4. Parkinson's disease ??? Did continue patient antiparkinsonian medication 5. GERD ??? Patient is on omeprazole will continue 6. Depression with anxiety ??? Patient is on citalopram as well as buspirone plan is to continue with current regimen. Patient did ask for Ativan advised against benzos ??? Consult was placed to the crisis team regarding patient's severe anxiety. Patient was deemed a good candidate for inpatient [facility]. Patient was accepted for transfer 7. Hypertension ??? Blood pressure control not optimal, home medications continued with dose adjustment as needed, also added hydralazine as needed. If blood pressure greater than 160 ??? 07/08/2025; patient blood pressure control has improved 8. DVT prophylaxis ??? On enoxaparin 9. Anemia ??? Secondary to anemia of chronic disorder, monitoring H H with plans to transfuse if hemoglobin falls below 7 or patient is deemed to be symptomatic ??? 07/08/2025; patient hemoglobin did drop 11.1-9.1 ordered iron studies as well as B12 levels 10. DVT prophylaxis ??? On enoxaparin Time spent in the patient's overall evaluation,decision-making process, review of diagnostic data, adjustment of management, discussion with other providers, nursing nursing and ancillary staff involved in patient's care documentation, 38 Minutes Medications at Discharge Home Medications benztropine 2 mg tablet 1 mg PO BID PARKINSONS 07/20/16 simvastatin 20 mg tablet 20 mg PO QHS CHOLESTEROL 07/20/16 aspirin 81 mg chewable tablet 81 mg PO DAILY HE[facility] HEALTH 08/01/23 omeprazole 40 mg capsule,delayed release 40 mg PO DAILY ACID REFLUX 08/01/23 pramipexole 0.25 mg tablet 0.25 mg PO BID PAKINSONS 08/01/23 valsartan 160 mg tablet 160 mg PO DAILY BLOOD PRESSURE 08/01/23 acetaminophen 500 mg tablet 1,000 mg (2 x 500 mg) PO Q8 PRN pain #1 TAB 08/20/23 alendronate 70 mg tablet 70 mg PO OLMOS osteoporosis #1 TAB 08/20/23 bisacodyl 10 mg rectal suppository 10 mg VT .PRN X 1 PRN Constipation #1 ea 08/20/23 citalopram 20 mg tablet 20 mg PO DAILY DEPRESSION #1 TAB 08/20/23 loperamide 2 mg capsule 2 mg PO Q6H PRN PRN Diarrhea #1 cap 08/20/23 Held on 07/07/25. Instructions: Ordered/Entered in error melatonin 3 mg tablet 3 mg PO QHS #1 TAB 08/20/23 ascorbate calcium (vitamin C) 814 mg/gram oral powder (Vitamin C (ascorbate calcium)) 500 mg PO QODAY 07/07/25 citalopram 10 mg tablet 10 mg PO DAILY 07/07/25 estradiol 0.01% (0.1 mg/gram) vaginal cream 1 g vaginal .QMOTH 07/07/25 folic acid 1 mg tablet 1 mg PO DAILY 07/07/25 rotigotine 2 mg/24 hour transdermal 24 hour patch (Neupro) 1 patch topical QHS 07/07/25 Physical Exam Narrative GENERAL: cooperative HEENT: Atraumatic; normocephalic EYES; Anicteric, Normal Conjunctiva NECK; supple, normal thyroid, RESPIRATORY: Diminished to auscultation CARDIOVASCULAR: Regular S1 S2, GI: soft, normoactive bowel sounds, : No Renal angle tenderness; EXTREMITIES: No edema, no clubbing, MUSCULOSKELETAL: no muscle wasting NEURO: Awake; no lateralizing signs. SKIN: No Rash PSYCH; Flat affect Weight / BMI Weight Weight: 62.3 kg Body Mass Index (BMI) 25.2 ABG / Lab / Microbiology Data 07/08/25 05:50 07/08/25 05:50 Laboratory: Laboratory Results - last 24 hr 07/08/25 05:50: Sodium 137, Potassium 4.8, Chloride 105, Carbon Dioxide 23.2, Anion Gap 8, BUN 18, Creatinine 0.95, Estim Creat Clear Calc 43.96 L, Est GFR (MDRD) Non-Af 63, BUN/Cre (more content not included)... [facility] 07-08-2025 Progress note Note Date/Time July 08, 2025 9:33am [facility] Medical Records Department [address] [place] [address] Progress Note - Hospitalist 07/08/25 0811 MR#: [id number] Acct: [id number] Name: PRASHANT SHEFFIELD Rep #:[id number] 8 : 1950 75 From: Davin Kirkland MD PCP: Dr. Ez Solitario MD Status:ADM ROXIE Location: [place] [address] Reason for Visit Chief Complaint: Generalized weakness Subjective Subjective Patient seen still appears quite anxious asking for Ativan did explain to patient that she is already on buspirone Objective Data Objective Data Vital Signs: Vital Signs Temp Pulse Resp BP Pulse Ox O2 Del Method 97.9 F 61 16 127/61 H 98 Room Air 07/08/25 02:20 07/08/25 02:20 07/08/25 02:20 07/08/25 02:20 07/08/25 02:20 07/08/25 02:20 Oxygen Delivery Method Room Air Weight: 62.3 kg Body Mass Index (BMI) 25.2 Intake & Output: Intake and Output for Last 24 Hours 07/06/25 07/07/25 07/08/25 23:59 23:59 23:59 Intake Total 1000 / 1000 Balance 1000 / 1000 Lab / Micro Data 07/08/25 05:50 07/08/25 05:50 Labs: Laboratory Results - last 24 hr 07/07/25 10:05: Urine Color Yellow, Urine Clarity Clear, Urine pH 6.0, Ur Specific Proctor 1.010, Urine Protein 30 H, Urine Glucose (UA) Normal, Urine Ketones Negative, Urine Occult Blood Negative, Urine Nitrite Negative, Urine Bilirubin Negative, Urine Urobilinogen Normal, Ur Leukocyte Esterase Negative, Urine RBC 0 SEEN, Urine WBC 0 SEEN, Ur Squamous Epith Cells 0 SEEN, Urine Bacteria 0 SEEN, Urine Mucus 0 SEEN 07/07/25 10:07: WBC 5.3, RBC 3.85 L, Hgb 11.1 L, Hct 34.7 L, MCV 90.1, MCH 28.8,MCHC 32.0, RDW Std Deviation 44.1 H, RDW Coeff of Addie 13.4, Plt Count 239, MPV 10.7, Immature Gran % (Auto) 0.400, Neut % (Auto) 66.1, Lymph % (Auto) 22.8, [place] % (Auto) 8.3, Eos % (Auto) 1.5, Baso % (Auto) 0.9, Absolute Neuts (auto) 3.5, Absolute Lymphs (auto) 1.21, Nucleated RBC % 0, ESR 2, Sodium 135, Potassium 4.2, Chloride 99, Carbon Dioxide 23.7, Anion Gap 12, BUN 20 H, Creatinine 1.03, Estim Creat Clear Calc 41.44 L, Est GFR (MDRD) Non-Af 57 L, BUN/Creatinine Ratio 19.1, Glucose 112 H, Calcium 9.7, Total Creatine Kinase 58,C-React Prot Ext Range < 3.00 07/08/25 05:50: WBC 5.6, RBC 3.41 L, Hgb 9.9 L, Hct 30.5 L, MCV 89.4, MCH 29.0, MCHC 32.5, RDW Std Deviation 44.7 H, RDW Coeff of Addie 13.5, Plt Count 222, MPV 10.8, Immature Gran % (Auto) 0.200, Neut % (Auto) 59.2, Lymph % (Auto) 28.3, [place] % (Auto) 9.1, Eos % (Auto) 2.3, Baso % (Auto) 0.9, Absolute Neuts (auto) 3.3, Absolute Lymphs (auto) 1.59, Nucleated RBC % 0, Sodium 137, Potassium 4.8, Chloride 105, Carbon Dioxide 23.2, Anion Gap 8, BUN 18, Creatinine 0.95, Estim Creat Clear Calc 43.96 L, Est GFR (MDRD) Non-Af 63, BUN/Creatinine Ratio 18.7, Glucose 95, Calcium 9.3, Phosphorus 2.9, Magnesium 2.1, TSH 1.940 Radiography Diagnostic Testing: Radiology Impression Chest X-Ray 07/07/25 09:51 IMPRESSION: There is a 0.6 cm nodular density in the right upper lung with overlying rib andscapula. Chest CT correlation is recommended. Reading [facility] Rhythm Strip Rhythm Strip: Sinus Rhythm Rate: 80 Ectopy: None Physical Exam Narrative GENERAL: cooperative HEENT: Atraumatic; normocephalic EYES; Anicteric, Normal Conjunctiva NECK; supple, normal thyroid, RESPIRATORY: Diminished to auscultation CARDIOVASCULAR: Regular S1 S2, GI: soft, normoactive bowel sounds, : No Renal angle tenderness; EXTREMITIES: No edema, no clubbing, MUSCULOSKELETAL: no muscle wasting NEURO: Awake; no lateralizing signs. SKIN: No Rash PSYCH; Flat affect Assessment & Plan Assessment/Plan (1) Generalized muscle weakness: PLAN: Plan Patient is a 75 F with past medical history significant for Parkinson's disease resident [facility] who was brought to the emergency department with generalized weakness. 1. Physical debility ? Patient has underlying Parkinson disease contributing to her symptoms. Patient has been admitted to a regular nursing floor requested for PT/OT eval and outreach and education social worker to assist with discharge planning. With patient also complaining of muscle aches decision was made to hold patient's simvastatin ? 07/08/2025; patient CPK levels ESR and CRP all came back within normal limits. Will continue to hold simvastatin requested for PT OT eval 2. Myalgia ? Ordered ESR held patient simvastatin 3. Dyslipidemia ? Patient is on simvastatin held given above reasons 4. Parkinson's disease ? Did continue patient antiparkinsonian medication 5. GERD ? Patient is on omeprazole will continue 6. Depression with anxiety ? Patient is on citalopram as well as buspirone plan is to continue with currentregimen. Patient did ask for Ativan advised against benzos 7. Hypertension ? Blood pressure control not optimal, home medications continued with dose adjustment as needed, also added hydralazine as needed. If blood pressure greater than 160 ? 07/08/2025; patient blood pressure control has improved 8. DVT prophylaxis ? On enoxaparin 9. Anemia ? Secondary to anemia of chronic disorder, monitoring H&H with plans to transfuse if hemoglobin falls below 7 or patient is deemed to be symptomatic ? 07/08/2025; patient hemoglobin did drop 11.1-9.1 ordered iron studies as well as B12 levels 10. DVT prophylaxis ? On enoxaparin Time spent in the patient's overall evaluation,decision-making process, review of diagnostic data, adjustment of management, discussion with other providers, nursing nursing and ancillary staff involved in patient's care documentation, 38 Minutes Charges/Coding Visit Charges Inpatient E&M: 54308 Subs Hosp L2 07/08/25 0933 <Electronically signed by Davin Kirkland MD> Cosigner Signature (if applicable): CC: ~ Signed [facility] Work Phone: 1([phone] 155-617808-21-2025 Progress note [facility] Medical Records Department [address] [place] [address] Progress Note - Hospitalist 07/08/25810 MR#: [id number] Acct: [id number] Name: PRASHANT SHEFFIELD Rep #:[id number] 8 : 1950 75 From: Davin Kirkland MD PCP: Dr. Ez Solitario MD Status:ADM ROXIE Location: [place] [address] Reason for Visit Chief Complaint: Generalized weakness Subjective Subjective Patient seen still appears quite anxious asking for Ativan did explain to patient that she is already on buspirone Objective Data Objective Data Vital Signs: Vital Signs Temp Pulse Resp BP Pulse Ox O2 Del Method 97.9 F 61 16 127/61 H 98 Room Air 07/08/25 02:20 07/08/25 02:20 07/08/25 02:20 07/08/25 02:20 07/08/25 02:20 07/08/25 02:20 Oxygen Delivery Method Room Air Weight: 62.3 kg Body Mass Index (BMI) 25.2 Intake & Output: Intake and Output for Last 24 Hours 07/06/25 07/07/25 07/08/25 23:59 23:59 23:59 Intake Total 1000 / 1000 Balance 1000 / 1000 Lab / Micro Data 07/08/25 05:50 07/08/25 05:50 Labs: Laboratory Results - last 24 hr 07/07/25 10:05: Urine Color Yellow, Urine Clarity Clear, Urine pH 6.0, Ur Specific Proctor 1.010, Urine Protein 30 H, Urine Glucose (UA) Normal, Urine Ketones Negative, Urine Occult Blood Negative, Urine Nitrite Negative, Urine Bilirubin Negative, Urine Urobilinogen Normal, Ur Leukocyte Esterase Negative, Urine RBC 0 SEEN, Urine WBC 0 SEEN, Ur Squamous Epith Cells 0 SEEN, Urine Bacteria 0 SEEN, Urine Mucus 0 SEEN 07/07/25 10:07: WBC 5.3, RBC 3.85 L, Hgb 11.1 L, Hct 34.7 L, MCV 90.1, MCH 28.8,MCHC 32.0, RDW Std Deviation 44.1 H, RDW Coeff of Addie 13.4, Plt Count 239, MPV 10.7, Immature Gran % (Auto) 0.400, Neut% (Auto) 66.1, Lymph % (Auto) 22.8, [place] % (Auto) 8.3, Eos % (Auto) 1.5, Baso % (Auto) 0.9, Absolute Neuts (auto) 3.5, Absolute Lymphs (auto) 1.21, Nucleated RBC % 0, ESR 2, Sodium 135, Potassium 4.2, Chloride 99, Carbon Dioxide 23.7, Anion Gap 12, BUN 20 H, Creatinine 1.03, Estim Creat Clear Calc 41.44 L, Est GFR (MDRD) Non-Af 57 L, BUN/Creatinine Ratio 19.1, Glucose 112 H, Calcium 9.7, Total Creatine Kinase 58,C-React Prot Ext Range < 3.00 07/08/25 05:50: WBC 5.6, RBC 3.41 L, Hgb 9.9 L, Hct 30.5 L, MCV 89.4, MCH 29.0, MCHC 32.5, RDW Std Deviation 44.7 H, RDW Coeff of Addie 13.5, Plt Count 222, MPV 10.8, Immature Gran % (Auto) 0.200, Neut% (Auto) 59.2, Lymph % (Auto) 28.3, [place] % (Auto) 9.1, Eos % (Auto) 2.3, Baso % (Auto) 0.9, Absolute Neuts (auto) 3.3, Absolute Lymphs (auto) 1.59, Nucleated RBC % 0, Sodium 137, Potassium 4.8, Chloride 105, Carbon Dioxide 23.2, Anion Gap 8, BUN 18, Creatinine 0.95, Estim Creat Clear Calc 43.96 L, Est GFR (MDRD) Non-Af 63, BUN/Creatinine Ratio 18.7, Glucose 95, Calcium 9.3, Phosphorus 2.9, Magnesium 2.1, TSH 1.940 Radiography Diagnostic Testing: Radiology Impression Chest X-Ray 07/07/25 09:51 IMPRESSION: There is a 0.6 cm nodular density in the right upper lung with overlying rib andscapula. Chest CT correlation is recommended. Reading Location[facility] Rhythm Strip Rhythm Strip: Sinus Rhythm Rate: 80 Ectopy: None Physical Exam Narrative GENERAL: cooperative HEENT: Atraumatic; normocephalic EYES; Anicteric, Normal Conjunctiva NECK; supple, normal thyroid, RESPIRATORY: Diminished to auscultation CARDIOVASCULAR: Regular S1 S2, GI: soft, normoactive bowel sounds, : No Renal angle tenderness; EXTREMITIES: No edema, no clubbing, MUSCULOSKELETAL: no muscle wasting NEURO: Awake; no lateralizing signs. SKIN: No Rash PSYCH; Flat affect Assessment & Plan Assessment/Plan (1) Generalized muscle weakness: PLAN: Plan Patient is a 75 F with past medical history significant for Parkinson's disease resident [facility] who was brought to the emergency department with generalized weakness. 1. Physical debility ? Patient has underlying Parkinson disease contributing to her symptoms. Patient has been admitted to a regular nursing floor requested for PT/OT eval and outreach and education social worker to assist with discharge planning. With patient also complaining of muscle aches decision was made to hold patient's simvastatin ? 07/08/2025; patient CPK levels ESR and CRP all came back within normal limits. Will continue to hold simvastatin requested for PT OT eval 2. Myalgia ? Ordered ESR held patient simvastatin 3. Dyslipidemia ? Patient is on simvastatin held given above reasons 4. Parkinson's disease ? Did continue patient antiparkinsonian medication 5. GERD ? Patient is on omeprazole will continue 6. Depression with anxiety ? Patient is on citalopram as well as buspirone plan is to continue with currentregimen. Patient did ask for Ativan advised against benzos 7. Hypertension ? Blood pressure control not optimal, home medications continued with dose adjustment as needed, also added hydralazine as needed. If blood pressure greater than 160 ? 07/08/2025; patient blood pressure control has improved 8. DVT prophylaxis ? On enoxaparin 9. Anemia ? Secondary to anemia of chronic disorder, monitoring H&H with plans to transfuse if hemoglobinfalls below 7 or patient is deemed to be symptomatic ? 07/08/2025; patient hemoglobin did drop 11.1-9.1 ordered iron studies as well as B12 levels 10. DVT prophylaxis ? On enoxaparin Time spent in the patient's overall evaluation,decision-making process, review of diagnostic data, adjustment of management, discussion with other providers, nursing nursing and ancillary staff involved in patient's care documentation, 38 Minutes Charges/Coding Visit Charges Inpatient E&M: 26393 Subs Hosp L2 07/08/25 0933 Cosigner Signature (if applicable): CC: ~ Signed [facility]08-20-2025 Discharge summary Author Shaji Rosales [facility] Note Date/Time July 07, 2025 3: 46pm [facility] Medical Records Department [address] [place] [address] Emergency Department Summary 07/07/25 MR#: [id number] Acct: [id number] Name: PRASHANT SHEFFIELD Rep #:[id number] 1 : 1950 75 From: Shaji Rosales MD PCP: Dr. Ez Solitario MD Status:ADM ROXIE Location: [address] History of Present Illness Chief Complaint: Weakness Informant: patient and family (Accompanied by sister.) Onset/Context/Timing Onset: Days Context: Gradual Onset Timing: Continuous Current Severity: Moderate Maximum Severity: Moderate Narrative Narrative: 75-year-old female history of Parkinson disease and hemicolectomy. States she has had pain all over the last month. Her neurologist recently changed some of her medications. She is accompanied by her sister they state this over the lastseveral weeks she has had decreased oral intake and just generalized weakness. She denies any vomiting diarrhea nor fever. She denies any dysuria. She is currently in assisted living and they do not think she is strong enough to take care of her activities of daily living. Prior similar symptoms: No Recent Illness/Hospitalization: No PFSH PFS Medical History Dysphagia History of 1 Parkinson disease Alcohol use Dyslipidemia Hypertension Anxiety and depression GERD without esophagitis Parkinsons disease Home Medications ?Medication ?Instructions ?Recorded ?Last Taken ?Type benztropine 2 mg tablet 1 mg PO BID PARKINSONS 07/2008/06/23 08:10 History 1 mg simvastatin 20 mg tablet 20 mg PO QHS CHOLESTEROL 01/0307/31/23 History aspirin 81 mg chewable tablet 81 mg PO DAILY HEART HEA LTH 08/01/23 08/01/23 History omeprazole 40 mg capsule,delayed 40 mg PO DAILY ACID R EFLUX 08/01/23 08/01/23 History release pramipexole 0.25 mg tablet 0.25 mg PO TID PAKINSONS Unknown History rasagiline 1 mg tablet 1 mg PO DAILY PARKINSONS 08/01/23 History valsartan 160 mg tablet 160 mg PO DAILY BLOOD PRESSU RE 08/01/23 08/01/23 History food supplemt, lactose-reduced 120 ml PO TIDCM supplem ent #0 mL 08/06/23 08/06/23 12:00 Rx 0.08 gram-1.5 kcal/mL oral liquid 120 mL (Ensure Plus High Protein) acetaminophen 500 mg tablet 1,000 mg (2 x 500 mg) PO Q 8 PRN 08/20/23 Unknown Rx pain #1 TAB alendronate 70 mg tablet 70 mg PO OLMOS osteoporosis #1 TAB 08/20/23 07/28/23 Rx bisacodyl 10 mg rectal suppository 10 mg VT .PRN X 1 P RN Constipation 08/20/23 Unknown Rx #1 ea buspirone 5 mg tablet 5 mg PO TID #1 TAB 08/20/23 Unknown Rx citalopram 20 mg tablet 20 mg PO DAILY DEPRESSION #1 TAB 08/20/23 08/01/23 Rx loperamide 2 mg capsule 2 mg PO Q6H PRN PRN Diarrhea #1 cap 08/20/23 Unknown Rx melatonin 3 mg tablet 3 mg PO QHS #1 TAB 08/20/23 Unknown Rx metoprolol tartrate 25 mg tablet 12.5 mg (1/2 x 25 mg) PO BID #1 TAB 08/20/23 Unknown Rx Allergy/AdvReac Type Severity Reaction Status Date / Time codeine AdvReac "CRAZY Verified 09/03/23 13:40 DREAMS" DOES NOT LIKE TO TAKE IT Family History Father , at 51 YOA due to PA CAD (coronary artery disease) Mother , she at 58 YOA following CABG CAD (coronary artery disease) Sister Hypertension Surgical History History of tubal ligation S/P right hemicolectomy Social History household members: none housing: apartment number of children: 2 current occupational status: retired Smoking Status: Never smoker alcohol intake: current alcohol intake frequency: other Alcohol type: wine details: She does not drink often and she has at most 1 glass of wine a day substance use type: does not use ROS ROS ED ROS Narrative Generalized weakness. Constitutional Constitutional ED: Denies chills or fever(s) Eyes Eyes: Denies blurry vision ENT ENT ED: Denies ear pain Cardiovascular Cardiovascular: Denies chest pain Respiratory/Chest Respiratory/Chest: Denies cough or dyspnea Gastrointestinal Gastrointestinal: Denies abdominal pain, constipation, diarrhea, melena, nausea or vomiting Genitourinary Genitourinary ED: Denies dysuria or hematuria Musculoskeletal Musculoskeletal: Denies arthralgias or back pain Integumentary Denies abscess or Abrasions Neurologic Neurologic: Denies headache(s) Psychiatric Psychiatric: Denies anxiety Endocrine Endocrinology: Denies cold intolerance Hematologic/Lymphatic Hematologic/Lymphatic: Reports none Allergic/Immunologic Allergic/Immunologic ED: Denies mouth swelling, tongue swelling or urticaria EXAM Physical Exam Narrative Exam Narrative: 75-year-old female vital signs are stable afebrile. Does not look septic toxic. No acute distress. Accompanied by her sister. H EENT exam pupils round reactive light. No signs of trauma. Mildly dry mucous members. Neck nontenderno JVD. No lymphadenopathy. Back nontender. Lungs clear to auscultation bilaterally. Heart regular rhythm no murmur rate about 90. Chest wall ribs nontender. Abdomen soft nontender. Nondistended. Moving all 4 extremities. 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 She really cannot lift either leg off the bed if I lift the leg off the bed it just falls back. She is weak bilaterally dorsi and plantarflexion. Neurologically she is awake alert. Answering questions following commands. He has symmetrical weakness in both lower extremities. Const Vital Signs: 07/07/25 09:30 07/07/25 09:34 07/07/25 09:34 Temperature 97.7 F L Temperature Source Oral Pulse Rate 88 Respiratory Rate 18 Respiratory Pattern Normal Blood Pressure 174/84 H Blood Pressure Mean 114 Pulse Ox 100 Oxygen Delivery Method Room Air Positive well nourished and well developed; Negative for cachectic, contracturesor unkempt General Appearance ED: well developed and NAD; Negative for unkempt, cachectic, contractures, cyanotic, diaphoretic or pallor Nutritional Appearance: Negative for cachectic HEENT Reports dry mucous membranes Negative for trauma or tenderness Mouth ED: Yes dry mucous membranes Mouth: dry mucous membranes Eyes PERRL and EOMs intact bilaterally Neck no lymphadenopathy, supple and no JVD Chest Wall inspection of chest normal and palpation of chest normal Resp normal respiratory effort and clear to auscultation bilaterally Cardio regular rate, regular rhythm, S1 normal heart sound, S2 normal heart sound and no murmurs GI normal to inspection, nondistended, normoactive bowel sounds, non-tender, non-distended and no masses Auscultation: normoactive bowel sounds Palpation: soft; Negative for tender, guarding or rebound tenderness present Back/Spine no CVA tenderness General Back: Negative for CVA tenderness Cervical Spine: Negative for cervical spine tenderness Thoracic Spine / Upper Back: Negative for thoracic spinal tenderness or paraspinal muscle tenderness Lumbar Spine / Lower Back: Negative for lumbar spinal tenderness Extremity normal to inspection General Extremety ED: Negative for edema or tenderness General Extremity: Negative for edema Neuro oriented x3 and CN's II-XII intact bilaterally Sensorium / Orientation: alert Motor Exam: strength 5/5 throughout Psych mental status grossly normal Appearance: Negative for unkempt Attitude: No agitated Mood & Affect: depressed; Negative for anxious Skin no rashes or lesions noted and no wounds General Skin Exam: Negative for jaundice or pallor Lesions: No lesion noted Rashes: No rashes noted Trauma: Negative for abrasion Wounds: Negative for wounds noted MDM MDM MDM Narrative Medical decision making narrative: 75-year-old female generalized weakness history of Parkinson disease. Exam is pretty benign she may be slightly dehydrated. There is no acute signs of infection or trauma. Screening labs will be obtained. Differential would include a dysrhythmia but she has a normal cardiac exam. Dehydration or electrolyte abnormalities. Anemia or infection. Repeat exam at 11:12 AM unchanged. Patient's labs really did not show any specific cause for her overall generalized weakness. We tried to walk her with a walker she could not really stand and support her weight with the walker getting out of bed. I will speak to the hospitalist about admission. Patient lives in assisted living and really cannot be cared for if she can ambulate on her own. History & Record Review Discussion w/independent historian: Patient and Family Additional record(s) reviewed:: Prior inpatient record, Prior outpatient record,Prior ED visit and Prior labs Lab Data Attestation: I reviewed the patient's lab results. Lab results narrative: CBC shows a white count of 5. H&H 11.1 and 34. Platelets 239. Baseline anemiacompared to prior labs. Chemistry shows sodium 135. Gap 12. BUN and creatinine of 21. Glucose 112. Urinalysis normal. No whites nor red cells. No nitrites. Chest x-ray chronic changes unremarkable. Labs: Laboratory Results - last 24 hr 07/07/25 07/07/25 10:05 10:07 WBC 5.3 RBC 3.85 L Hgb 11.1 L Hct 34.7 L MCV 90.1 MCH 28.8 MCHC 32.0 RDW Std Deviation 44.1 H RDW Coeff of Addie 13.4 Plt Count 239 MPV 10.7 Immature Gran % (Auto) 0.400 Neut % (Auto) 66.1 Lymph % (Auto) 22.8 [place] % (Auto) 8.3 Eos % (Auto) 1.5 Baso % (Auto) 0.9 Absolute Neuts (auto) 3.5 Absolute Lymphs (auto) 1.21 Nucleated RBC % 0 Sodium 135 Potassium 4.2 Chloride 99 Carbon Dioxide 23.7 Anion Gap 12 BUN 20 H Creatinine 1.03 Estim Creat Clear Calc 41.44 L Est GFR (MDRD) Non-Af 57 L BUN/Creatinine Ratio 19.1 Glucose 112 H Calcium 9.7 Urine Color Yellow Urine Clarity Clear Urine pH 6.0 Ur Specific Proctor 1.010 Urine Protein 30 H Urine Glucose (UA) Normal Urine Ketones Negative Urine Occult Blood Negative Urine Nitrite Negative Urine Bilirubin Negative Urine Urobilinogen Normal Ur Leukocyte Esterase Negative Urine RBC 0 SEEN Urine WBC 0 SEEN Ur Squamous Epith Cells 0 SEEN Urine Bacteria 0 SEEN Urine Mucus 0 SEEN Radiography Chest X-Ray - ED: 2 View, Read by ED Physician, Normal, Heart, Lungs, Mediastinum, Bony Structures, No Acute Disease and Chronic Changes Diagnostic Testing: Clinical Impression(s) from Imaging Studies Chest X-Ray 07/07/25 09:51 IMPRESSION: There is a 0.6 cm nodular density in the right upper lung with overlying rib andscapula. Chest CT correlation is recommended. Reading Location: [facility] Chest x-ray, 2 views, AP and lateral, interpreted by myself shows no acute abnormality. Normal cardiac silhouette. Normal lung coker. Chronic changes. Rhythm Strip Rhythm Strip: Sinus Rhythm Rate: 80 Ectopy: None EKG Initial EKG: Attestation: I personally reviewed and interpreted this EKG as follows: Interpretation: Sinus Rhythm and No Acute Injury Pattern Comments: Normal sinus rhythm rate 80 no acute signs of PA nor ischemia. Discharge Plan Triage Chief Complaint: Weakness ED Provider: Shaji Rosales Dx/Rx/DC Orders Clinical Impression: Generalized muscle weakness, History of Parkinson disease, Unable to walk Prescriptions: No Action simvastatin 20 MG tablet 20 mg PO QHS benztropine 2 MG tablet 1 mg PO BID omeprazole 40 mg capsule,delayed release(DR/EC) 40 mg PO DAILY pramipexole 0.25 mg tablet 0.25 mg PO TID Patient Comments: START DATE: 08-03-23 rasagiline 1 mg tablet 1 mg PO DAILY valsartan 160 mg tablet 160 mg PO DAILY aspirin 81 MG tablet,chewable 81 mg PO DAILY Ensure Plus High Protein 0.08 gram-1.5 kcal/mL Liquid 120 ml PO TIDCM Qty: 0 0RF acetaminophen 500 mg Tablet 1,000 mg PO Q8 PRN (Reason: pain) Qty: 1 0RF buspirone 5 mg Tablet 5 mg PO TID Qty: 1 0RF loperamide 2 mg Capsule 2 mg PO Q6H PRN PRN (Reason: Diarrhea) Qty: 1 0RF melatonin 3 mg Tablet 3 mg PO QHS Qty: 1 0RF bisacodyl 10 mg Suppository 10 mg VT .PRN X 1 PRN (Reason: Constipation) Qty: 1 0RF metoprolol tartrate 25 mg Tablet 12.5 mg PO BID Qty: 1 0RF alendronate 70 mg tablet 70 mg PO OLMOS Qty: 1 0RF Rx Instructions: Take Saturday AM on and empty stomach and do not lay down or eat for 30 minutes. citalopram 20 mg tablet 20 mg PO DAILY Qty: 1 0RF Primary Care Provider: Ez Solitario Referrals: Ez Solitario MD [Primary Care Provider] - Print Language: Cook Islander Disposition Disposition: Acute Care Hospital [facility] What to do if you have Problems For any increased pain, shortness of breath, bleeding, nausea or vomiting, chestpain, or any unexpected problems, contact your Primary Care Provider. Call [facility] ([phone]) or report to the closest Emergency Room. Call 911 if necessary. 07/07/25 1545 <Electronically signed by Shaji Rosales MD> Cosigner Signature (if applicable): CC: Dr. Ez Solitario MD ~ Signed [facility] Work Phone: [phone] 167-990808-20-2025 Discharge summary [facility] Medical Records Department [address] [place] [address] Emergency Department Summary 07/07/25 MR#: [id number] Acct: [id number] Name: PRASHANT SHEFFIELD Rep #:[id number] : 1950 75 From: Shaji Rosales MD PCP: Dr. Ez Solitario MD Status:ADM ROXIE Location: [address] History of Present Illness Chief Complaint: Weakness Informant: patient and family (Accompanied by sister.) Onset/Context/Timing Onset: Days Context: Gradual Onset Timing: Continuous Current Severity: Moderate Maximum Severity: Moderate Narrative Narrative: 75-year-old female history of Parkinson disease and hemicolectomy. States she has had pain all overthe last month. Her neurologist recently changed some of her medications. She is accompanied by hersister they state this over the lastseveral weeks she has had decreased oral intake and just generalized weakness. She denies any vomiting diarrhea nor fever. She denies any dysuria. She is currentlyin assisted living and they do not think she is strong enough to take care of her activities of daily living. Prior similar symptoms: No Recent Illness/Hospitalization: No [facility] Medical History Dysphagia History of 1 Parkinson disease Alcohol use Dyslipidemia Hypertension Anxiety and depression GERD without esophagitis Parkinsons disease Home Medications ?Medication ?Instructions ?Recorded ?Last Taken ?Type benztropine 2 mg tablet 1 mg PO BID PARKINSONS 07/2008/06/23 08:10 History 1 mg simvastatin 20 mg tablet 20 mg PO QHS CHOLESTEROL 01/0307/31/23 History aspirin 81 mg chewable tablet 81 mg PO DAILY HEART HEA LTH 08/01/23 08/01/23 History omeprazole 40 mg capsule,delayed 40 mg PO DAILY ACID R EFLUX 08/01/23 08/01/23 History release pramipexole 0.25 mg tablet 0.25 mg PO TID PAKINSONS Unknown History rasagiline 1 mg tablet 1 mg PO DAILY PARKINSONS 08/01/23 History valsartan 160 mg tablet 160 mg PO DAILY BLOOD PRESSU RE 08/01/23 08/01/23 History food supplemt, lactose-reduced 120 ml PO TIDCM supplem ent #0 mL 08/06/23 08/06/23 12:00 Rx 0.08 gram-1.5 kcal/mL oral liquid 120 mL (Ensure Plus High Protein) acetaminophen 500 mg tablet 1,000 mg (2 x 500 mg) PO Q 8 PRN 08/20/23 Unknown Rx pain #1 TAB alendronate 70 mg tablet 70 mg PO OLMOS osteoporosis #1 TAB 08/20/23 07/28/23 Rx bisacodyl 10 mg rectal suppository 10 mg VT .PRN X 1 P RN Constipation 08/20/23 Unknown Rx #1 ea buspirone 5 mg tablet 5 mg PO TID #1 TAB 08/20/23 Unknown Rx citalopram 20 mg tablet 20 mg PO DAILY DEPRESSION #1 TAB 08/20/23 08/01/23 Rx loperamide 2 mg capsule 2 mg PO Q6H PRN PRN Diarrhea #1 cap 08/20/23 Unknown Rx melatonin 3 mg tablet 3 mg PO QHS #1 TAB 08/20/23 Unknown Rx metoprolol tartrate 25 mg tablet 12.5 mg (1/2 x 25 mg) PO BID #1 TAB 08/20/23 Unknown Rx Allergy/AdvReac Type Severity Reaction Status Date / Time codeine AdvReac "CRAZY Verified 09/03/23 13:40 DREAMS" DOES NOT LIKE TO TAKE IT Family History Father , at 51 YOA due to PA CAD (coronary artery disease) Mother , she at 58 YOA following CABG CAD (coronary artery disease) Sister Hypertension Surgical History History of tubal ligation S/P right hemicolectomy Social History household members: none housing: apartment number of children: 2 current occupational status: retired Smoking Status: Never smoker alcohol intake: current alcohol intake frequency: other Alcohol type: wine details: She does not drink often and she has at most 1 glass of wine a day substance use type: does not use ROS ROS ED ROS Narrative Generalized weakness. Constitutional Constitutional ED: Denies chills or fever(s) Eyes Eyes: Denies blurry vision ENT ENT ED: Denies ear pain Cardiovascular Cardiovascular: Denies chest pain Respiratory/Chest Respiratory/Chest: Denies cough or dyspnea Gastrointestinal Gastrointestinal: Denies abdominal pain, constipation, diarrhea, melena, nausea or vomiting Genitourinary Genitourinary ED: Denies dysuria or hematuria Musculoskeletal Musculoskeletal: Denies arthralgias or back pain Integumentary Denies abscess or Abrasions Neurologic Neurologic: Denies headache(s) Psychiatric Psychiatric: Denies anxiety Endocrine Endocrinology: Denies cold intolerance Hematologic/Lymphatic Hematologic/Lymphatic: Reports none Allergic/Immunologic Allergic/Immunologic ED: Denies mouth swelling, tongue swelling or urticaria EXAM Physical Exam Narrative Exam Narrative: 75-year-old female vital signs are stable afebrile. Does not look septic toxic. No acute distress. Accompanied by her sister. H EENT exam pupils round reactive light. No signs of trauma. Mildly dry mucous members. Neck nontenderno JVD. No lymphadenopathy. Back nontender. Lungs clear to auscultationbilaterally. Heart regular rhythm no murmur rate about 90. Chest wall ribs nontender. Abdomen soft nontender. Nondistended. Moving all 4 extremities. 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 She really cannot lift either leg off the bed if I lift the legoff the bed it just falls back. She is weak bilaterally dorsi and plantarflexion. Neurologically she is awake alert. Answering questions following commands. He has symmetrical weakness in both lower extremities. Const Vital Signs: 07/07/25 09:30 07/07/25 09:34 07/07/25 09:34 Temperature 97.7 F L Temperature Source Oral Pulse Rate 88 Respiratory Rate 18 Respiratory Pattern Normal Blood Pressure 174/84 H Blood Pressure Mean 114 Pulse Ox 100 Oxygen Delivery Method Room Air Positive well nourished and well developed; Negative for cachectic, contracturesor unkempt General Appearance ED: well developed and NAD; Negative for unkempt, cachectic, contractures, cyanotic, diaphoretic or pallor Nutritional Appearance: Negative for cachectic HEENT Reports dry mucous membranes Negative for trauma or tenderness Mouth ED: Yes dry mucous membranes Mouth: dry mucous membranes Eyes PERRL and EOMs intact bilaterally Neck no lymphadenopathy, supple and no JVD Chest Wall inspection of chest normal and palpation of chest normal Resp normal respiratory effort and clear to auscultation bilaterally Cardio regular rate, regular rhythm, S1 normal heart sound, S2 normal heart sound and no murmurs GI normal to inspection, nondistended, normoactive bowel sounds, non-tender, non- distended and no masses Auscultation: normoactive bowel sounds Palpation: soft; Negative for tender, guarding or rebound tenderness present Back/Spine no CVA tenderness General Back: Negative for CVA tenderness Cervical Spine: Negative for cervical spine tenderness Thoracic Spine / Upper Back: Negative for thoracic spinal tenderness or paraspinal muscle tenderness Lumbar Spine / Lower Back: Negative for lumbar spinal tenderness Extremity normal to inspection General Extremety ED: Negative for edema or tenderness General Extremity: Negative for edema Neuro oriented x3 and CN's II-XII intact bilaterally Sensorium / Orientation: alert Motor Exam: strength 5/5 throughout Psych mental status grossly normal Appearance: Negative for unkempt Attitude: No agitated Mood & Affect: depressed; Negative for anxious Skin no rashes or lesions noted and no wounds General Skin Exam: Negative for jaundice or pallor Lesions: No lesion noted Rashes: No rashes noted Trauma: Negative for abrasion Wounds: Negative for wounds noted MDM MDM MDM Narrative Medical decision making narrative: 75-year-old female generalized weakness history of Parkinson disease. Exam is pretty benign she maybe slightly dehydrated. There is no acute signs of infection or trauma. Screening labs will be obtained. Differential would include a dysrhythmia but she has a normal cardiac exam. Dehydration or electrolyte abnormalities. Anemia or infection. Repeat exam at 11:12 AM unchanged. Patient's labs really did not show any specific cause for her overall generalized weakness. We tried to walk her with a walker she could not really stand and support her weight with the walker getting out of bed. I will speak to the hospitalist about admission. Patient lives in assisted living and really cannot be cared for if she can ambulate on her own. History & Record Review Discussion w/independent historian: Patient and Family Additional record(s) reviewed:: Prior inpatient record, Prior outpatient record,Prior ED visit and Prior labs Lab Data Attestation: I reviewed the patient's lab results. Lab results narrative: CBC shows a white count of 5. H&H 11.1 and 34. Platelets 239. Baseline anemiacompared to prior labs. Chemistry shows sodium 135. Gap 12. BUN and creatinine of 21. Glucose 112. Urinalysis normal. No whites nor red cells. No nitrites. Chest x-ray chronic changes unremarkable. Labs: Laboratory Results - last 24 hr 07/07/25 07/07/25 10:05 10:07 WBC 5.3 RBC 3.85 L Hgb 11.1 L Hct 34.7 L MCV 90.1 MCH 28.8 MCHC 32.0 RDW Std Deviation 44.1 H RDW Coeff of Addie 13.4 Plt Count 239 MPV 10.7 Immature Gran % (Auto) 0.400 Neut % (Auto) 66.1 Lymph % (Auto) 22.8 [place] % (Auto) 8.3 Eos % (Auto) 1.5 Baso % (Auto) 0.9 Absolute Neuts (auto) 3.5 Absolute Lymphs (auto) 1.21 Nucleated RBC % 0 Sodium 135 Potassium 4.2 Chloride 99 Carbon Dioxide 23.7 Anion Gap 12 BUN 20 H Creatinine 1.03 Estim Creat Clear Calc 41.44 L Est GFR (MDRD) Non-Af 57 L BUN/Creatinine Ratio 19.1 Glucose 112 H Calcium 9.7 Urine Color Yellow Urine Clarity Clear Urine pH 6.0 Ur Specific Proctor 1.010 Urine Protein 30 H Urine Glucose (UA) Normal Urine Ketones Negative Urine Occult Blood Negative Urine Nitrite Negative Urine Bilirubin Negative Urine Urobilinogen Normal Ur Leukocyte Esterase Negative Urine RBC 0 SEEN Urine WBC 0 SEEN Ur Squamous Epith Cells 0 SEEN Urine Bacteria 0 SEEN Urine Mucus 0 SEEN Radiography Chest X-Ray - ED: 2 View, Read by ED Physician, Normal, Heart, Lungs, Mediastinum, Bony Structures,No Acute Disease and Chronic Changes Diagnostic Testing: Clinical Impression(s) from Imaging Studies Chest X-Ray 07/07/25 09:51 IMPRESSION: There is a 0.6 cm nodular density in the right upper lung with overlying rib andscapula. Chest CT correlation is recommended. Reading Location: [facility] Chest x-ray, 2 views, AP and lateral, interpreted by myself shows no acute abnormality. Normal cardiac silhouette. Normal lung coker. Chronic changes. Rhythm Strip Rhythm Strip: Sinus Rhythm Rate: 80 Ectopy: None EKG Initial EKG: Attestation: I personally reviewed and interpreted this EKG as follows: Interpretation: Sinus Rhythm and No Acute Injury Pattern Comments: Normal sinus rhythm rate 80 no acute signs of PA nor ischemia. Discharge Plan Triage Chief Complaint: Weakness ED Provider: Shaji Rosales Dx/Rx/DC Orders Clinical Impression: Generalized muscle weakness, History of Parkinson disease, Unable to walk Prescriptions: No Action simvastatin 20 MG tablet 20 mg PO QHS benztropine 2 MG tablet 1 mg PO BID omeprazole 40 mg capsule,delayed release(DR/EC) 40 mg PO DAILY pramipexole 0.25 mg tablet 0.25 mg PO TID Patient Comments: START DATE: 08-03-23 rasagiline 1 mg tablet 1 mg PO DAILY valsartan 160 mg tablet 160 mg PO DAILY aspirin 81 MG tablet,chewable 81 mg PO DAILY Ensure Plus High Protein 0.08 gram-1.5 kcal/mL Liquid 120 ml PO TIDCM Qty: 0 0RF acetaminophen 500 mg Tablet 1,000 mg PO Q8 PRN (Reason: pain) Qty: 1 0RF buspirone 5 mg Tablet 5 mg PO TID Qty: 1 0RF loperamide 2 mg Capsule 2 mg PO Q6H PRN PRN (Reason: Diarrhea) Qty: 1 0RF melatonin 3 mg Tablet 3 mg PO QHS Qty: 1 0RF bisacodyl 10 mg Suppository 10 mg VT .PRN X 1 PRN (Reason: Constipation) Qty: 1 0RF metoprolol tartrate 25 mg Tablet 12.5 mg PO BID Qty: 1 0RF alendronate 70 mg tablet 70 mg PO OLMOS Qty: 1 0RF Rx Instructions: Take Saturday AM on and empty stomach and do not lay down or eat for 30 minutes. citalopram 20 mg tablet 20 mg PO DAILY Qty: 1 0RF Primary Care Provider: Ez Solitario Referrals: Ez Solitario MD [Primary Care Provider] - Print Language: Cook Islander Disposition Disposition: Acute Care Hospital [facility] What to do if you have Problems For any increased pain, shortness of breath, bleeding, nausea or vomiting, chestpain, or any unexpected problems, contact your Primary Care Provider. Call [facility] ([phone]) or report tothe closest Emergency Room. Call 911 if necessary. 07/07/25 1546 Cosigner Signature (if applicable): CC: Dr. Ez Solitario MD ~ Signed [facility]08-20-2025 History and physical note Author Davin Kirkland [facility] Note Date/Time July 07, 2025 12 :23pm [facility] Medical Records Department [address] [place] [address] H&P Exam - Hospitalist 07/07/25 1158 MR#: [id number] Acct: [id number] Name: PRASHANT SHEFFIELD Rep #:[id number] : 1950 75 From: Davin Kirkland MD PCP: Dr. Ez Solitario MD Status:ADM ROXIE Location: [facility] [id number] HPI - General General Date of Admission: 07/07/25 Date of Service: 07/07/25 Chief Complaint: Generalized weakness HPI Narrative PRASHANT SHEFFIELD, is a 75 F with past medical history significant for Parkinson's disease resident [facility] who was brought to the emergency department with generalized weakness. Per patient she recently had medication adjustment mainly for anxiety since then she has developed progressive generalized weakness. Patient also complains of muscle aches and difficulty with both handgrips. Workup in the ED came back unremarkable. Patient admittedto regular nursing floor for subsequent eval with consultation placed to PT/OT/SW [facility] Medical History Dysphagia History of 1 Parkinson disease Alcohol use Dyslipidemia Hypertension Anxiety and depression GERD without esophagitis Parkinsons disease Home Medications ?Medication ?Instructions ?Recorded ?Last Taken ?Type benztropine 2 mg tablet 1 mg PO BID PARKINSONS 07/2008/06/23 08:10 History 1 mg simvastatin 20 mg tablet 20 mg PO QHS CHOLESTEROL 01/0307/31/23 History aspirin 81 mg chewable tablet 81 mg PO DAILY HEART HEA LTH 08/01/23 08/01/23 History omeprazole 40 mg capsule,delayed 40 mg PO DAILY ACID R EFLUX 08/01/23 08/01/23 History release pramipexole 0.25 mg tablet 0.25 mg PO TID PAKINSONS Unknown History rasagiline 1 mg tablet 1 mg PO DAILY PARKINSONS 08/01/23 History valsartan 160 mg tablet 160 mg PO DAILY BLOOD PRESSU RE 08/01/23 08/01/23 History acetaminophen 500 mg tablet 1,000 mg (2 x 500 mg) PO Q 8 PRN 08/20/23 Unknown Rx pain #1 TAB alendronate 70 mg tablet 70 mg PO OLMOS osteoporosis #1 TAB 08/20/23 07/28/23 Rx bisacodyl 10 mg rectal suppository 10 mg VT .PRN X 1 P RN Constipation 08/20/23 Unknown Rx #1 ea buspirone 5 mg tablet 5 mg PO TID #1 TAB 08/20/23 Unknown Rx citalopram 20 mg tablet 20 mg PO DAILY DEPRESSION #1 TAB 08/20/23 08/01/23 Rx loperamide 2 mg capsule 2 mg PO Q6H PRN PRN Diarrhea #1 cap 08/20/23 Unknown Rx melatonin 3 mg tablet 3 mg PO QHS #1 TAB 08/20/23 Unknown Rx metoprolol tartrate 25 mg tablet 12.5 mg (1/2 x 25 mg) PO BID #1 TAB 08/20/23 Unknown Rx benztropine 1 mg tablet 1 mg PO BID 07/07/25 Unknown History estradiol 0.01% (0.1 mg/gram) 1 g vaginal .QMOTH 07/07 Unknown History vaginal cream folic acid 1 mg tablet 1 mg PO DAILY 07/07/25 Unkno wn History rotigotine 2 mg/24 hour 1 patch topical QHS 07/07/25 Unknown History transdermal 24 hour patch (Neupro) Allergy/AdvReac Type Severity Reaction Status Date / Time codeine AdvReac "CRAZY Verified 09/03/23 13:40 DREAMS" DOES NOT LIKE TO TAKE IT Family History Father , at 51 YOA due to PA CAD (coronary artery disease) Mother , she at 58 YOA following CABG CAD (coronary artery disease) Sister Hypertension Surgical History History of tubal ligation S/P right hemicolectomy Social History household members: none housing: apartment number of children: 2 current occupational status: retired Smoking Status: Never smoker alcohol intake: current alcohol intake frequency: other Alcohol type: wine details: She does not drink often and she has at most 1 glass of wine a day substance use type: does not use ROS ROS Narrative GENERAL: denies fever, chills, night sweats, weight loss, anorexia HEENT: denies headache, sinus congestion, or drainage, dysphagia RESPIRATORY: denies cough, sputum production, shortness of breath, dyspnea on exertion CARDIAC: denies chest pain, palpitations, orthopnea, PND GASTROINTESTINAL: denies abdominal pain, nausea, vomiting, melena, GENITOURINARY: denies dysuria, urgency, frequency, heamaturia EXTREMITY: denies swelling MUSCULOSKELETAL: Muscle aches NEUROLOGIC: denies focal numbness, weakness, tingling HEMATOLOGIC: denies easy bruising and/or hemorrhage INTEGUMENT: denies rashes PSYCHIATRIC: denies suicidal or homicidal ideation Vital Signs Vital Signs Vital Signs: 07/07/25 09:30 07/07/25 09:34 07/07/25 09:34 Temperature 97.7 F L Temperature Source Oral Pulse Rate 88 Respiratory Rate 18 Respiratory Pattern Normal Blood Pressure 174/84 H Blood Pressure Mean 114 Pulse Ox 100 Oxygen Delivery Method Room Air 07/07/25 11:30 Temperature Temperature Source Pulse Rate 83 Respiratory Rate 19 H Respiratory Pattern Blood Pressure 162/66 H Blood Pressure Mean 98 Pulse Ox 99 Oxygen Delivery Method Room Air Weight Weight: 61.8 kg Body Mass Index (BMI) 24.9 Physical Exam Narrative GENERAL: cooperative HEENT: Atraumatic; normocephalic EYES; Anicteric, Normal Conjunctiva NECK; supple, normal thyroid, RESPIRATORY: Diminished to auscultation CARDIOVASCULAR: Regular S1 S2, GI: soft, normoactive bowel sounds, : No Renal angle tenderness; EXTREMITIES: No edema, no clubbing, MUSCULOSKELETAL: no muscle wasting NEURO: Awake; no lateralizing signs. SKIN: No Rash PSYCH; Flat affect Results Lab / Micro Data 07/07/25 10:07 07/07/25 10:07 Labs: Laboratory Results - last 24 hr 07/07/25 10:05: Urine Color Yellow, Urine Clarity Clear, Urine pH 6.0, Ur Specific Proctor 1.010, Urine Protein 30 H, Urine Glucose (UA) Normal, Urine Ketones Negative, Urine Occult Blood Negative, Urine Nitrite Negative, Urine Bilirubin Negative, Urine Urobilinogen Normal, Ur Leukocyte Esterase Negative, Urine RBC 0 SEEN, Urine WBC 0 SEEN, Ur Squamous Epith Cells 0 SEEN, Urine Bacteria 0 SEEN, Urine Mucus 0 SEEN 07/07/25 10:07: WBC 5.3, RBC 3.85 L, Hgb 11.1 L, Hct 34.7 L, MCV 90.1, MCH 28.8,MCHC 32.0, RDW Std Deviation 44.1 H, RDW Coeff of Addie 13.4, Plt Count 239, MPV 10.7, Immature Gran % (Auto) 0.400, Neut % (Auto) 66.1, Lymph % (Auto) 22.8, [place] % (Auto) 8.3, Eos % (Auto) 1.5, Baso % (Auto) 0.9, Absolute Neuts (auto) 3.5, Absolute Lymphs (auto) 1.21, Nucleated RBC % 0, Sodium 135, Potassium 4.2, Chloride 99, Carbon Dioxide 23.7, Anion Gap 12, BUN 20 H, Creatinine 1.03, EstimCreat Clear Calc 41.44 L, Est GFR (MDRD) Non-Af 57 L, BUN/Creatinine Ratio 19.1,Glucose 112 H, Calcium 9.7 Rhythm Strip Rhythm Strip: Sinus Rhythm Rate: 80 Ectopy: None Imaging Radiology Impression Chest X-Ray 07/07/25 09:51 IMPRESSION: There is a 0.6 cm nodular density in the right upper lung with overlying rib andscapula. Chest CT correlation is recommended. Reading [facility] Assessment & Plan Assessment/Plan (1) Generalized muscle weakness: PLAN: Plan PRASHANT SHEFFIELD, is a 75 F with past medical history significant for Parkinson's disease resident [facility] who was brought to the emergency department with generalized weakness. Per patient she recently had medication adjustment mainly for anxiety since then she has developed progressive generalized weakness. Patient also complains of muscle aches and difficulty with both handgrips. Workup in the ED came back unremarkable. Patient admittedto regular nursing floor for subsequent eval with consultation placed to PT/OT/SW Physical debility ? Patient has underlying Parkinson disease contributing to her symptoms. Patient has been admitted to a regular nursing floor requested for PT/OT eval and outreach and education social worker to assist with discharge planning. With patient also complaining of muscle aches decision was made to hold patient's simvastatin 2. Myalgia ? Ordered ESR held patient simvastatin 3. Dyslipidemia ? Patient is on simvastatin held given above reasons 4. Parkinson's disease ? Did continue patient antiparkinsonian medication 5. GERD ? Patient is on omeprazole will continue 6. Depression with anxiety ? Patient is on citalopram as well as buspirone plan is to continue with currentregimen. Patient did ask for Ativan advised against benzos 7. Hypertension ? Blood pressure control not optimal, home medications continued with dose adjustment as needed, also added hydralazine as needed. If blood pressure greater than 160 8. DVT prophylaxis ? On enoxaparin 9. Anemia ? Secondary to anemia of chronic disorder, monitoring H&H with plans to transfuse if hemoglobin falls below 7 or patient is deemed to be symptomatic 10. DVT prophylaxis ? On enoxaparin Time spent in the patient's overall evaluation,decision-making process, review of diagnostic data, adjustment of management, discussion with other providers, nursing nursing and ancillary staff involved in patient's care documentation, 60Minutes Advance planning; did discuss with the patient and family (her sister) regarding advanced directives as well as CODE STATUS. Did explain the various scenarios involved ( FULL CODE, DNR CCA, DNR CCA with no intubation, and DNR CC and what each meant) patient elected to be DNR CCA no intubation. Order was placed. Time spent on discussion 16 minutes. Charges/Coding Multi Select Codes Visit Charges Visit Charges: 18384 Init Hosp L2 Hospitalists' Procedures Procedures: 63335 Advncd Care Plan 30 Min 07/07/25 1223 <Electronically signed by Davin Kirkland MD> Cosigner Signature (if applicable): CC: Dr. Davin Kirkland MD; Dr. Ez Solitario MD~ Signed [facility] Work Phone: 1(393) 811-598708-20-2025 NoteHNO ID: [id number] Author: LESLYE MILLER MA Service: ? Author Type: Spline Rolling Machine Job Setter Type: Progress Notes Filed: 07/09/2025 08:29 Note Text: Scan on 07/07/2025 4:07 PM by ProviderJovany PA-C: [facility] Scan on 07/07/2025 12:30 PM by Jovany Shpeard PA-C: Hospitalist Consultation [facility] Scan on 07/09/2025 7:20 AM by Jovany Shepard PA-C: [facility] Discharge Summary [facility]08-20-2025 History of Present illness Narrative* Leslye Miller MA - 07/07/2025 2:05 PM EDT Scan on 07/07/2025 12:30 PM by ProviderJovany PA-C: Hospitalist Consultation [facility]* Diagnosis Onset Date Resolution Status Admit Date Generalized muscle weakness acute July 07, 2025 11:49am History of Parkinson disease acute July 07, 2025 11:49am Unable to walk acute June 11:49am [facility] Work Phone: 1(988) 760-873008-20-2025 History and physical note [facility] Medical Records Department [address] [place] [id number] H&P Exam - Hospitalist 07/07/25 1158 MR#: [id number] Acct: [id number] Name: PRASHANT SHEFFIELD Rep #:[id number] : 1950 75 From: Davin Kirkland MD PCP: Dr. Ez Solitario MD Status:ADM ROXIE Location: NE3 [id number] HPI - General General Date of Admission: 07/07/25 Date of Service: 07/07/25 Chief Complaint: Generalized weakness HPI Narrative PRASHANT SHEFFIELD, is a 75 F with past medical history significant for Parkinson's disease resident [facility] who was brought to the emergency department with generalized weakness. Per patient she recently had medication adjustment mainly for anxiety since then she has developed progressive generalized weakness. Patient also complains of muscle aches and difficulty with both handgrips. Workup in the ED came back unremarkable. Patient admittedto regular nursing floor for subsequent evalwith consultation placed to PT/OT/SW [facility] Medical History Dysphagia History of 1 Parkinson disease Alcohol use Dyslipidemia Hypertension Anxiety and depression GERD without esophagitis Parkinsons disease Home Medications ?Medication ?Instructions ?Recorded ?Last Taken ?Type benztropine 2 mg tablet 1 mg PO BID PARKINSONS 07/2008/06/23 08:10 History 1 mg simvastatin 20 mg tablet 20 mg PO QHS CHOLESTEROL 01/0307/31/23 History aspirin 81 mg chewable tablet 81 mg PO DAILY HEART HEA LTH 08/01/23 08/01/23 History omeprazole 40 mg capsule,delayed 40 mg PO DAILY ACID R EFLUX 08/01/23 08/01/23 History release pramipexole 0.25 mg tablet 0.25 mg PO TID PAKINSONS Unknown History rasagiline 1 mg tablet 1 mg PO DAILY PARKINSONS 08/01/23 History valsartan 160 mg tablet 160 mg PO DAILY BLOOD PRESSU RE 08/01/23 08/01/23 History acetaminophen 500 mg tablet 1,000 mg (2 x 500 mg) PO Q 8 PRN 08/20/23 Unknown Rx pain #1 TAB alendronate 70 mg tablet 70 mg PO OLMOS osteoporosis #1 TAB 08/20/23 07/28/23 Rx bisacodyl 10 mg rectal suppository 10 mg VT .PRN X 1 P RN Constipation 08/20/23 Unknown Rx #1 ea buspirone 5 mg tablet 5 mg PO TID #1 TAB 08/20/23 Unknown Rx citalopram 20 mg tablet 20 mg PO DAILY DEPRESSION #1 TAB 08/20/23 08/01/23 Rx loperamide 2 mg capsule 2 mg PO Q6H PRN PRN Diarrhea #1 cap 08/20/23 Unknown Rx melatonin 3 mg tablet 3 mg PO QHS #1 TAB 08/20/23 Unknown Rx metoprolol tartrate 25 mg tablet 12.5 mg (1/2 x 25 mg) PO BID #1 TAB 08/20/23 Unknown Rx benztropine 1 mg tablet 1 mg PO BID 07/07/25 Unknown History estradiol 0.01% (0.1 mg/gram) 1 g vaginal .QMOTH 07/07 Unknown History vaginal cream folic acid 1 mg tablet 1 mg PO DAILY 07/07/25 Unkno wn History rotigotine 2 mg/24 hour 1 patch topical QHS 07/07/25 Unknown History transdermal 24 hour patch (Neupro) Allergy/AdvReac Type Severity Reaction Status Date / Time codeine AdvReac "CRAZY Verified 09/03/23 13:40 DREAMS" DOES NOT LIKE TO TAKE IT Family History Father , at 51 YOA due to PA CAD (coronary artery disease) Mother , she at 58 YOA following CABG CAD (coronary artery disease) Sister Hypertension Surgical History History of tubal ligation S/P right hemicolectomy Social History household members: none housing: apartment number of children: 2 current occupational status: retired Smoking Status: Never smoker alcohol intake: current alcohol intake frequency: other Alcohol type: wine details: She does not drink often and she has at most 1 glass of wine a day substance use type: does not use ROS ROS Narrative GENERAL: denies fever, chills, night sweats, weight loss, anorexia HEENT: denies headache, sinus congestion, or drainage, dysphagia RESPIRATORY: denies cough, sputum production, shortness of breath, dyspnea on exertion CARDIAC: denies chest pain, palpitations, orthopnea, PND GASTROINTESTINAL: denies abdominal pain, nausea, vomiting, melena, GENITOURINARY: denies dysuria, urgency, frequency, heamaturia EXTREMITY: denies swelling MUSCULOSKELETAL: Muscle aches NEUROLOGIC: denies focal numbness, weakness, tingling HEMATOLOGIC: denies easy bruising and/or hemorrhage INTEGUMENT: denies rashes PSYCHIATRIC: denies suicidal or homicidal ideation Vital Signs Vital Signs Vital Signs: 07/07/25 09:30 07/07/25 09:34 07/07/25 09:34 Temperature 97.7 F L Temperature Source Oral Pulse Rate 88 Respiratory Rate 18 Respiratory Pattern Normal Blood Pressure 174/84 H Blood Pressure Mean 114 Pulse Ox 100 Oxygen Delivery Method Room Air 07/07/25 11:30 Temperature Temperature Source Pulse Rate 83 Respiratory Rate 19 H Respiratory Pattern Blood Pressure 162/66 H Blood Pressure Mean 98 Pulse Ox 99 Oxygen Delivery Method Room Air Weight Weight: 61.8 kg Body Mass Index (BMI) 24.9 Physical Exam Narrative GENERAL: cooperative HEENT: Atraumatic; normocephalic EYES; Anicteric, Normal Conjunctiva NECK; supple, normal thyroid, RESPIRATORY: Diminished to auscultation CARDIOVASCULAR: Regular S1 S2, GI: soft, normoactive bowel sounds, : No Renal angle tenderness; EXTREMITIES: No edema, no clubbing, MUSCULOSKELETAL: no muscle wasting NEURO: Awake; no lateralizing signs. SKIN: No Rash PSYCH; Flat affect Results Lab / Micro Data 07/07/25 10:07 07/07/25 10:07 Labs: Laboratory Results - last 24 hr 07/07/25 10:05: Urine Color Yellow, Urine Clarity Clear, Urine pH 6.0, Ur Specific [place]ctor 1.010, Urine Protein 30 H, Urine Glucose (UA) Normal, Urine Ketones Negative, Urine Occult Blood Negative, Urine Nitrite Negative, Urine Bilirubin Negative, Urine Urobilinogen Normal, Ur Leukocyte Esterase Negative, Urine RBC 0 SEEN, Urine WBC 0 SEEN, Ur Squamous Epith Cells 0 SEEN, Urine Bacteria 0 SEEN, Urine Mucus 0 SEEN 07/07/25 10:07: WBC 5.3, RBC 3.85 L, Hgb 11.1 L, Hct 34.7 L, MCV 90.1, MCH 28.8,MCHC 32.0, RDW Std Deviation 44.1 H, RDW Coeff of Addie 13.4, Plt Count 239, MPV 10.7, Immature Gran % (Auto) 0.400, Neut% (Auto) 66.1, Lymph % (Auto) 22.8, [place] % (Auto) 8.3, Eos % (Auto) 1.5, Baso % (Auto) 0.9, Absolute Neuts (auto) 3.5, Absolute Lymphs (auto) 1.21, Nucleated RBC % 0, Sodium 135, Potassium 4.2, Chloride 99, Carbon Dioxide 23.7, Anion Gap 12, BUN 20 H, Creatinine 1.03, EstimCreat Clear Calc 41.44 L,Est GFR (MDRD) Non-Af 57 L, BUN/Creatinine Ratio 19.1,Glucose 112 H, Calcium 9.7 Rhythm Strip Rhythm Strip: Sinus Rhythm Rate: 80 Ectopy: None Imaging Radiology Impression Chest X-Ray 07/07/25 09:51 IMPRESSION: There is a 0.6 cm nodular density in the right upper lung with overlying rib andscapula. Chest CT correlation is recommended. Reading Location: [facility] Assessment & Plan Assessment/Plan (1) Generalized muscle weakness: PLAN: Plan PRASHANT SHEFFIELD, is a 75 F with past medical history significant for Parkinson's disease resident [facility] who was brought to the emergency department with generalized weakness. Per patient she recently had medication adjustment mainly for anxiety since then she has developed progressive generalized weakness. Patient also complains of muscle aches and difficulty with both handgrips. Workup in the ED came back unremarkable. Patient admittedto regular nursing floor for subsequent evalwith consultation placed to PT/OT/SW Physical debility ? Patient has underlying Parkinson disease contributing to her symptoms. Patient has been admitted to a regular nursing floor requested for PT/OT eval and outreach and education social worker to assist with discharge planning. With patient also complaining of muscle aches decision was made to hold patient's simvastatin 2. Myalgia ? Ordered ESR held patient simvastatin 3. Dyslipidemia ? Patient is on simvastatin held given above reasons 4. Parkinson's disease ? Did continue patient antiparkinsonian medication 5. GERD ? Patient is on omeprazole will continue 6. Depression with anxiety ? Patient is on citalopram as well as buspirone plan is to continue with currentregimen. Patient did ask for Ativan advised against benzos 7. Hypertension ? Blood pressure control not optimal, home medications continued with dose adjustment as needed, also added hydralazine as needed. If blood pressure greater than 160 8. DVT prophylaxis ? On enoxaparin 9. Anemia ? Secondary to anemia of chronic disorder, monitoring H&H with plans to transfuse if hemoglobinfalls below 7 or patient is deemed to be symptomatic 10. DVT prophylaxis ? On enoxaparin Time spent in the patient's overall evaluation,decision-making process, review of diagnostic data, adjustment of management, discussion with other providers, nursing nursing and ancillary staff involved in patient's care documentation, 60Minutes Advance planning; did discuss with the patient and family (her sister) regarding advanced directives as well as CODE STATUS. Did explain the various scenarios involved ( FULL CODE, DNR CCA, DNR CCA with no intubation, and DNR CC and what each meant) patient elected to be DNR CCA no intubation. Order was placed. Time spent on discussion 16 minutes. Charges/Coding Multi Select Codes Visit Charges Visit Charges: 34786 Init Hosp L2 Hospitalists' Procedures Procedures: 05284 Advncd Care Plan 30 Min 07/07/25 1223 Cosigner Signature (if applicable): CC: Dr. Davin Kirkland MD; Dr. Ez Solitario MD~ Signed [facility] [place]08-20-2025 Radiology Diagnostic study note [facility] Imaging Services [address] [place] [id number] [id number] Chest PA and Lateral MR#: [id number] Acct: [id number] Name: PRASHANT SHEFFIELD Rep #: [id number] : 1950 F 75 From: Consuelo Gray MD PCP: Dr. Ez Solitario MD Status: REG ER Study:Chest PA and Lateral Date of Exam: 07/07/25 Exam# [id number] Ordering Dr: Dinorah Rosales MD PROCEDURE: CHEST PA AND LATERAL 07/07/2025 REASON FOR EXAM: WEAKNESS TECHNIQUE: CHEST PA AND LATERAL COMPARISON: None FINDINGS: Heart size and mediastinal configuration are within normal limits. There is no focal infiltrate or consolidation. There is a 0.6 cm nodular density in the right upper lung with overlying rib and scapula. There is no pneumothorax or effusion. Aortic calcifications are visible. There is no visible acute bony abnormality. RAD/Chest PA and Lateral IMPRESSION: There is a 0.6 cm nodular density in the right upper lung with overlying rib andscapula. Chest CT correlation is recommended. Reading Location: [facility] CC: Dr. Shaji Rosales MD; Dr. Ez Solitario MD ~ Tamper Operator: Signed [facility]08-14-2025 NoteHNO ID: [id number] Author: LESLYE MILLER MA Service: ? Author Type: Spline Rolling Machine Job Setter Type: Progress Notes Filed: 07/01/2025 11:06 Note Text: Scan on 07/01/2025 8:32 AM by Jovany Shepard PA-C: Consultation - Neurology [facility]08-14-2025 History of Present illness Narrative* Leslye Miller MA - 07/01/2025 11:05 AM EDT Scan on 07/01/2025 8:32 AM by Jovany Shepard PA-C: Consultation - [facility] NoteHNO ID: [id number] Author: PATTI TOMAS MA Service: ? Author Type: Spline Rolling Machine Job Setter Type: Progress Notes Filed: 05/05/2025 15:47 Note Text: Scan on 05/04/2025 10:48 AM by Jovany Shepard PA-C: [facility] History of Present illness Narrative* Patti Tomas MA - 05/05/2025 3:47 PM EDT Scan on 05/04/2025 10:48 AM by Jovany Shepard PA-C: Consultation - Neurology Ptati Tomas MA documented [facility]25 NoteHNO ID: [id number] Author: PATTI TOMAS MA Service: ? Author Type: Spline Rolling Machine Job Setter Type: Progress Notes Filed: 03/17/2025 11:15 Note Text: Scan on 03/10/2025 11:44 AM by ProviderJovany PA-C: Consultation - PT/OT/Speech Patti Tomas [facility]04-30-2025 History of Present illness Narrative* Patti Tomas MA - 03/17/2025 11:15 AM EDT Scan on 03/10/2025 11:44 AM by ProviderJovany PA-C: Consultation - PT/OT/Speech Patti Tomas MA [facility]-2025 NoteHNO ID: [id number] Author: MARY ORTIZ APRN.KNOCKDOWN MAN Service: ? Author Type: Nurse Practitioner Type: Progress Notes Filed: 03/09/2025 12:22 Note Text: 03/08/2025 Patient presents with: discoloration to skin : Right leg x3 months SUBJECTIVE: This is a 75 year old, accompanied by sister, that is here today for Above Complaints. Hit her right lower leg about three montha ago. Patient concerned since she still has some brown discoloration of area. Has been putting lanolin cream on daily. Denies any pain, itching, drainage, excessive warmth or erythema PAST MEDICAL HISTORY Diagnosis Date Alcohol use 02/07/2016 1-2 drinks a day. 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, mild, with anxiety (HCC) 07/08/2024 Dry mouth 03/26/2016 Elevated hemoglobin A1c 12/01/2018 Essential hypertension 02/07/2016 Family history of colon cancer paternal grandmother Fibroid uterus 02/07/2016 Had one and never needed surgery Frequent falls 07/20/2021 Patient declines Physical Therapy as of 07/20/2021 GERD without esophagitis 02/07/2016 Hypertensive heart and chronic kidney disease with heart failure and stage 1 through stage 4 chronic kidney disease, or unspecified chronic kidney disease (HCC) 12/26/2023 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 Mixed hyperlipidemia 02/07/2016 Mobility impaired 07/25/2023 Osteopenia, senile 12/15/2019 DXA: 11/2019 Parkinson's disease (HCC) 02/07/[address] 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 Neuro feels may be anxiety related. No recurrence since (last episode was 06/2015) ALLERGIES Betadine [Povidone-Iodine], Buspar [Buspirone], and Codeine MEDICATIONS Current Outpatient Medications Medication Sig pramipexole (MIRAPEX) 0.5 mg tablet Take 1 tablet by mouth two times a day. Per Neuro alendronate (FOSAMAX) 70 mg tablet Take 1 tablet by mouth one time a week. Take with a full glass of water, on an empty stomach; do NOT lie down for 30minutes. simvastatin (ZOCOR) 20 mg tablet Take 1 tablet by mouth daily at bedtime. valsartan (DIOVAN) 160 mg tablet Take 1 tablet by mouth once daily. bcptftp-jnpqjonuf-yjruyhj D3 (CALCIUM 500+D) 500 mg-5 mcg (200 unit) per tablet Take 1 tablet by mouth once daily. omeprazole (PRILOSEC) 40 mg capsule Take 1 capsule by mouth once daily. folic acid 1 mg tablet Take 1 tablet by mouth once daily. Cholecalciferol, Vitamin D3, 25 mcg (1,000 unit) cap Take 1 capsule by mouth once daily. diphenhydrAMINE (BENADRYL) 25 mg capsule Take 25 mg by mouth once daily. 2 tablets 25 mg AM and 2 tablets 25 mg PM ferrous sulfate (SLOW FE) 137 mg (45 mg iron) TbER Take 1 tablet by mouth every other day. ascorbic acid, vitamin C, (VITAMIN C) 500 mg tablet Take 1 tablet by mouth every other day. benztropine (COGENTIN) 2 mg tablet Take 0.5 tablets by mouth two times a day. Per Neurology at [facility] Melatonin 5 mg cap Take 2 capsules by mouth daily at bedtime. cyanocobalamin (VITAMIN B-12) 1,000 mcg tab Take 1 tablet by mouth once daily. citalopram hydrobromide (CELEXA) 10 mg tablet Take 1 tablet by mouth once daily. Take with 20 mg dose for total of 30mg daily, getting from Neurology at [facility] citalopram (CELEXA) 20 mg tablet Take 1 tablet by mouth daily at bedtime. Take with 10mg dose for total of 30mg daily. Per neurology at [facility] estradiol (ESTRACE) 0.01 % (0.1 mg/gram) vaginal cream Use 1 g vaginally twice a week. aspirin, enteric coated (ADULT LOW DOSE ASPIRIN) 81 mg EC tablet Take 1 tablet by mouth once daily. No current facility-administered medications for this visit. Medications and allergies reviewed by this provider. SOCIAL HISTORY Social History Tobacco Use Smoking status: Never Smokeless tobacco: Never Vaping Use Vaping status: Never Used Substance Use Topics Alcohol use: Yes Comment: approximately 1-2 beers/wine daily Drug use: No REVIEW OF SYSTEMS All other reviewed and negative other than HPI. OBJECTIVE: BP 118/68 Pulse (!) 57 Resp 16 Wt 64 kg (141 lb 3.2 oz) SpO2 98% BMI 26.83 kg/m? . Vital signs reviewed by this provider. APPEARANCE Well appearing, alert, in no acute distress, well-hydrated, well nourished. RIGHT LOWER LEG: Approximate nickel sized circular brownish discoloration to mathews and a few brownish discolored area to right ankle without surrounding erythema, tenderness or excessive warmth surr (more content not included)... [facility]04-21-2025 History of Present illness Narrative* Mary Ortiz APRN.KNOCKDOWN MAN - 03/08/2025 2:03 PM EDT 03/08/2025 Patient presents with: discoloration to skin : Right leg x3 months SUBJECTIVE: This is a 75 year old, accompanied by sister, that is here today for Above Complaints. Hit her right lower leg about three montha ago. Patient concerned since she still has some brown discoloration of area. Has been putting lanolin cream on daily. Denies any pain, itching, drainage, excessive warmth or erythema PAST MEDICAL HISTORY Diagnosis Date Alcohol use 02/07/2016 1-2 drinks a day. 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, mild, with anxiety ([facility]) 07/08/2024 Dry mouth 03/26/2016 Elevated hemoglobin A1c 12/01/2018 Essential hypertension 02/07/2016 Family history of colon cancer paternal grandmother Fibroid uterus 02/07/2016 Had one and never needed surgery Frequent falls 07/20/2021 Patient declines Physical Therapy as of 07/20/2021 GERD without esophagitis 02/07/2016 Hypertensive heart and chronic kidney disease with heart failure and stage 1 through stage 4 chronic kidney disease, or unspecified chronic kidney disease (HCC) 12/26/2023 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 Mixed hyperlipidemia 02/07/2016 Mobility impaired 07/25/2023 Osteopenia, senile 12/15/2019 DXA: 11/2019 Parkinson's disease (HCC) 02/07/[address] 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 Neuro feels may be anxiety related. No recurrence since (last episode was 06/2015) ALLERGIES Betadine [Povidone-Iodine], Buspar [Buspirone], and Codeine MEDICATIONS Current Outpatient Medications Medication Sig pramipexole (MIRAPEX) 0.5 mg tablet Take 1 tablet by mouth two times a day. Per Neuro alendronate (FOSAMAX) 70 mg tablet Take 1 tablet by mouth one time a week. Take with a full glass of water, on an empty stomach; do NOT lie down for 30minutes. simvastatin (ZOCOR) 20 mg tablet Take 1 tablet by mouth daily at bedtime. valsartan (DIOVAN) 160 mg tablet Take 1 tablet by mouth once daily. jjhldvq-tprditlhv-xyyhqkt D3 (CALCIUM 500+D) 500 mg-5 mcg (200 unit) per tablet Take 1 tablet by mouth once daily. omeprazole (PRILOSEC) 40 mg capsule Take 1 capsule by mouth once daily. folic acid 1 mg tablet Take 1 tablet by mouth once daily. Cholecalciferol, Vitamin D3, 25 mcg (1,000 unit) cap Take 1 capsule by mouth once daily. diphenhydrAMINE (BENADRYL) 25 mg capsule Take 25 mg by mouth once daily. 2 tablets 25 mg AM and 2 tablets 25 mg PM ferrous sulfate (SLOW FE) 137 mg (45 mg iron) TbER Take 1 tablet by mouth every other day. ascorbic acid, vitamin C, (VITAMIN C) 500 mg tablet Take 1 tablet by mouth every other day. benztropine (COGENTIN) 2 mg tablet Take 0.5 tablets by mouth two times a day. Per Neurology at [facility] Melatonin 5 mg cap Take 2 capsules by mouth daily at bedtime. cyanocobalamin (VITAMIN B-12) 1,000 mcg tab Take 1 tablet by mouth once daily. citalopram hydrobromide (CELEXA) 10 mg tablet Take 1 tablet by mouth once daily. Take with 20 mg dose for total of 30mg daily, getting from Neurology at [facility] citalopram (CELEXA) 20 mg tablet Take 1 tablet by mouth daily at bedtime. Take with 10mg dose for total of 30mg daily. Per neurology at [facility] estradiol (ESTRACE) 0.01 % (0.1 mg/gram) vaginal cream Use 1 g vaginally twice a week. aspirin, enteric coated (ADULT LOW DOSE ASPIRIN) 81 mg EC tablet Take 1 tablet by mouth once daily. No current facility-administered medications for this visit. Medications and allergies reviewed by this provider. SOCIAL HISTORY Social History Tobacco Use Smoking status: Never Smokeless tobacco: Never Vaping Use Vaping status: Never Used Substance Use Topics Alcohol use: Yes Comment: approximately 1-2 beers/wine daily Drug use: No REVIEW OF SYSTEMS All other reviewed and negative other than HPI. OBJECTIVE: BP 118/68 Pulse (!) 57 Resp 16 Wt 64 kg (141 lb 3.2 oz) SpO2 98% BMI 26.83 kg/m . Vital signs reviewed by this provider. APPEARANCE Well appearing, alert, in no acute distress, well-hydrated, well nourished. RIGHT LOWER LEG: Approximate nickel sized circular brownish discoloration to mathews and a few brownish discolored area to right ankle without surrounding erythema, tenderness or excessive warmth surrounding. No leg swelling observed 2+ pedal pulse with cap refill WNL. Covid-19 Vaccine(2023- season) due on 02/18/2025 RSV Vaccine(1 - Risk 60-74 years 1-dose series) due on 07/08/2025 Serum Creatinine due on 01/05/2026 Hemoglobin/Hematocrit due on 01/05/2026 Colorectal Cancer Screening due on 02/19/2026 Mammogram Screening due on 02/22/2026 Annual PCP Team Chronic Disease Visit due on 03/08/2026 BP Controlled (<130/80) due on 03/08/2026 Diabetes Screening due on 01/05/2028 Lipid Screening due on 01/05/2030 DTaP,Tdap,Td Vaccine(2 - Td or Tdap) due on 03/23/2034 Bone Density Screening Completed Influenza Vaccine Completed Advance Directive Discussion Completed Hepatitis C Screening Completed Shingrix Vaccine Completed Pneumococcal Vaccine: 50+ Completed ASSESSMENT/PLAN: 1. Traumatic ecchymosis of right lower leg, initial encounter - ICD9: 924.10, ICD10: S80.11XA - no red flag symptoms or exam findings - red flag symptoms discussed - may continue to apply lanolin cream to area - follow-up if fail to resolve to ER with red flag symptoms Mary HardinglogMAURY shah Prescription instructions reviewed with patient as applicable. Patient advised if symptoms do not improve or if symptoms worsen sooner, to contact their primary care physician. Potential red flag symptoms discussed with the patient. Reviewed appropriate action plan to take if red flag symptoms occur. Patient agreeable to treatment plan. Medical Decision Making: Problems: Low: Acute, uncomplicated illness or injury Risk: Low: Low risk from testing/treatment Medical Decision Making Level: 3 - Low [facility] Telephone encounter Note * Telephone Encounter - Gardenia Goss LPN - 02/26/2025 9:03 AM EDT Patient returned call and went over results, notes from Edna Umanzor PRINCIPAL ENGINEER with understanding. [facility]04-11-[facility] Miscellaneous Notes* Telephone Encounter - Gardenia Goss LPN - 02/26/2025 9:03 AM EDT Patient returned call and went over results, notes from Edna Umanzor PRINCIPAL ENGINEER with understanding. * Telephone Encounter - Allie Chung MA - 02/26/2025 9:00 AM EDT Left message for patient to return call to office Allie Chung MA * Telephone Encounter - Edna Umanzor APRN.CNP - 02/26/2025 8:54 AM EDT Please let patient know her mammogram is negative. Patient should continue with annual screenings. [facility] Telephone encounter Note * Telephone Encounter - Allie Chung MA - 02/26/2025 9:00 AM EDT Left message for patient to return call to office Allie Chung MA [facility]04-11-[facility] Telephone encounter Note* Telephone Encounter - Edna Umanzor APRN.CNP - 02/26/2025 8:54 AM EDT Please let patient know her mammogram is negative. Patient should continue with annual screenings. [facility]04-08-[facility] Telephone encounter Note* Telephone Encounter - Louise Pemberton RN - 02/23/2025 1:28 PM EDT Patient notified of results and provider's instructions. Patient verbalizes understanding. Louise Pemberton RN [facility]04-08-2025 Miscellaneous Notes* Telephone Encounter - Louise Pemberton RN - 02/23/2025 1:28 PM EDT Patient notified of results and provider's instructions. Patient verbalizes understanding. Louise Pemberton RN * Telephone Encounter - Allie Chung MA - 02/23/2025 1:13 PM EDT Left message for patient to return call to office Allie Chung MA * Telephone Encounter - Edna Umanzor APRN.CNP - 02/23/2025 10:17 AM EDT Please let patient know her DXA scan shows osteopenia. Continue calcium and vit d supplementation. [facility] Telephone encounter Note * Telephone Encounter - Allie Chung MA - 02/23/2025 1:13 PM EDT Left message for patient to return call to office Allie Chung MA [facility]04-[facility] Telephone encounter Note* Telephone Encounter - Enda Umanzor APRN.CNP - 02/23/2025 10:17 AM EDT Please let patient know her DXA scan shows osteopenia. Continue calcium and vit d supplementation. [facility]04-07-2025 History of Present illness Narrative* Janie Tabor Mammo Tech - 02/22/2025 1:10 PM EDT Radiology Service Progress Note PATIENT NAME: Prashant Sheffield DATE OF SERVICE: February 22, 2025 TIME: 12:53 PM PATIENT IDENTITY VERIFICATION COMPLETED USING TWO (2) IDENTIFIERS: Name and Date of confirmedby patient verbally. FALL SCREENING: Has the patient had 2 falls in the last year or 1 fall with injury or currently using an Ambulatory Assistive Device (Walker, Cane, Wheelchair, Crutches, etc.)? No PATIENT GENDER DATA: Assigned female at . status: : No status:NO. PATIENT RELEVANT IMPLANT DATA REVIEWED: Not Applicable PATIENT PRESENTS WITH AN IMPLANTABLE OR ATTACHED TIRE BUILDER OPERATOR: No RADIOLOGY DEPARTMENT: Mammography PERIPHERAL IV DATA: Not applicable SIGNED BY: Harsha Colbert February 22, 2025 12:53 PM documented in this encounterK[facility]25 NoteHNO ID: [id number] Author: JANIE TABOR Mammo Tech Service: ? Author Type: Telephone Clerk Type: Progress Notes Filed: 02/22/2025 12:53 Note Text: Radiology Service Progress Note PATIENT NAME: Prashant Sheffield DATE OF SERVICE: February 22, 2025 TIME: 12:53 PM PATIENT IDENTITY VERIFICATION COMPLETED USING TWO (2) IDENTIFIERS: Name and Date of confirmed by patient verbally. FALL SCREENING: Has the patient had 2 falls in the last year or 1 fall with injury or currently using an Ambulatory Assistive Device (Walker, Cane, Wheelchair, Crutches, etc.)? No PATIENT GENDER DATA: Assigned female at . status: : No status: NO. PATIENT RELEVANT IMPLANT DATA REVIEWED: Not Applicable PATIENT PRESENTS WITH AN IMPLANTABLE OR ATTACHED TIRE BUILDER OPERATOR: No RADIOLOGY DEPARTMENT: Mammography PERIPHERAL IV DATA: Not applicable SIGNED BY: Janie Tabor [employer] February 22, 2025 12:53 [facility]04-07-2025 History of Present illness Narrative* Mulu Ward RT(R) - 02/22/2025 12:30 PM EDT Radiology Service Progress Note PATIENT NAME: Prashant Sheffield DATE OF SERVICE: February 22, 2025 TIME: 12:32 PM PATIENT IDENTITY VERIFICATION COMPLETED USING TWO (2) IDENTIFIERS: Name and Date of confirmedby patient verbally. FALL SCREENING: Has the patient had 2 falls in the last year or 1 fall with injury or currently using an Ambulatory Assistive Device (Walker, Cane, Wheelchair, Crutches, etc.)? Yes, Patient High Riskfor Falls What interventions were put in place to prevent falls during this visit? Increased Observations by Caregivers PATIENT GENDER DATA: Assigned female at . status: : No status:NO. PATIENT RELEVANT IMPLANT DATA REVIEWED: Not Applicable PATIENT PRESENTS WITH AN IMPLANTABLE OR ATTACHED TIRE BUILDER OPERATOR: No RADIOLOGY DEPARTMENT: Bone Density PERIPHERAL IV DATA: Not applicable SIGNED BY: RT Manny(Tre) February 22, 2025 12:32 PM documented in this encounterK[facility]25 NoteHNO ID: [id number] Author: MULU WARD RT(R) Service: ? Author Type: Technologist Type: Progress Notes Filed: 02/22/2025 12:46 Note Text: Radiology Service Progress Note PATIENT NAME: Prashant Sheffield DATE OF SERVICE: February 22, 2025 TIME: 12:32 PM PATIENT IDENTITY VERIFICATION COMPLETED USING TWO (2) IDENTIFIERS: Name and Date of confirmed by patient verbally. FALL SCREENING: Has the patient had 2 falls in the last year or 1 fall with injury or currently using an Ambulatory Assistive Device (Walker, Cane, Wheelchair, Crutches, etc.)? Yes, Patient High Risk for Falls What interventions were put in place to prevent falls during this visit? Increased Observations by Caregivers PATIENT GENDER DATA: Assigned female at . status: : No status: NO. PATIENT RELEVANT IMPLANT DATA REVIEWED: Not Applicable PATIENT PRESENTS WITH AN IMPLANTABLE OR ATTACHED TIRE BUILDER OPERATOR: No RADIOLOGY DEPARTMENT: Bone Density PERIPHERAL IV DATA: Not applicable SIGNED BY: RT Manny(R) February 22, 2025 12:32 [facility]03-20-2025 Note* Addendum Note - Ez Solitario MD - 02/04/2025 8:18 AM EDTAddended by: EZ SOLITARIO on: 02/04/2025 08:18 AM Modules accepted: Orders [facility]03-20-2025 Miscellaneous Notes* Addendum Note - Ez Solitario MD - 02/04/2025 8:18 AM EDTAddended by: EZ SOLITARIO on: 02/04/2025 08:18 AM Modules accepted: Orders documented in this encounterK[facility]03-[facility]-2025 NoteHNO ID: [id number] Author: BERLIN URRUTIA LPN Service: ? Author Type: LICENSED NURSE Type: Progress Notes Filed: 02/04/2025 08:07 Note Text: Scan on 02/03/2025 2:10 PM by ProviderJovany PA-C: Consultation - Neurology [facility]03-20-2025 History of Present illness Narrative* Berlin Urrutia LPN - 02/04/2025 8:07 AM EDT Scan on 02/03/2025 2:10 PM by Jovany Shepard PA-C: Consultation - Neurology documented in this encounterK[facility] Telephone encounter Note * Telephone Encounter - Louise Pemberton RN - 01/13/2025 10:36 AM EST Patient's sister notified of results and provider's instructions. Patient's sister verbalizes understanding. Louise Pemberton RN [facility]02-26-2025 Miscellaneous Notes* Telephone Encounter - Louise Pemberton RN - 01/13/2025 10:36 AM EST Patient's sister notified of results and provider's instructions. Patient's sister verbalizes understanding. Louise Pemberton RN * Telephone Encounter - Berlin Urrutia LPN - 01/13/2025 10:26 AM EST Left message for pt/pt's sister Moo to contact office for results and instructions. Berlin Urrutia LPN * Telephone Encounter - Lauren Camacho PA-C - 01/13/2025 10:01 AM EST Urine confirms infection. Will send in atb. Lauren Camacho PA-C documented in this encounterK[facility]02-[facility]-2025 Telephone encounter Note * Telephone Encounter - Berlin Urrutia LPN - 01/13/2025 10:26 AM EST Left message for pt/pt's sister Moo to contact office for results and instructions. Berlin Urrutia LPN [facility]02-26-2025 Telephone encounter Note* Telephone Encounter - Lauren Camacho PA-C - 01/13/2025 10:01 AM EST Urine confirms infection. Will send in atb. Lauren Camacho PA-C [facility]02-24-2025 Instructions* Patient Instructions* Lauren Camacho PA-C - 01/11/2025 1:42 PM EST Screening schedule The following prevention plan is recommended: Mammogram Screening due on 11/04/2021 WHAT YOU CAN DO TO PREVENT FALLS Many falls can be prevented. By making some changes, you can lower your chances of falling. Four things YOU can do to prevent falls for you* and your caregiver 1. Begin a regular exercise program Exercise is one of the most important ways to lower your chances of falling. It makes you stronger and helps you feel better. Exercises that improve balance and coordination (like Dk Chi) are the most helpful. Lack of exercise leads to weakness and increases your chances of falling. Ask your doctor or health care provider about the best type of exercise program for you. 2. Have your health care provider review your medicines Have your doctor or pharmacist review all the medicines you take, even [id number] medicines. As you get older, the way medicines work in your body can change. Some medicines, or combinations of medicines, can make you sleepy or dizzy andcan cause you to fall. 3. Have your vision checked Have your eyes checked by an eye doctor at least once a year. You may be wearing the wrong glasses or have a condition like glaucoma or cataracts that limits your vision. Poor vision can increase your chances of falling. 4. Make your home safer About half of all falls happen at home. To make your home safer: Remove things you can trip over (like papers, books, clothes, and shoes) from stairs and places where you walk. Remove small throw rugs or use double-sided tape to keep the rugs from slipping. Keep items you use often in cabinets you can reach easily without using a step stool. Have grab bars put in next to your toilet and in the tub or shower. Use non-slip mats in the bathtub and on shower floors. Improve the lighting in your home. As you get older, you need brighter lights to see well. Hang light-weight curtains or shades to reduce glare. Have handrails and lights put in on all staircases. Wear shoes both inside and outside the house. Avoid going barefoot or wearing slippers. For more information, contact: Centers for Disease Control and Prevention www.cdc.gov/injury * This information may not apply if you have certain medical conditions. BONE MINERAL DENSITY PATIENT INSTRUCTIONS Bone mineral density testing measures the amount of calcium in certain parts of your bones. This information determines how strong your bones are. The test is used to detect osteoporosis, a disease in which the bone's mineral content and density are low, increasing a person's risk of fractures. Thelumbar spine (lower back) and the hip are the skeletal sites usually examined. For the test, remember that: 1. You cannot take this test if you are . 2. Eat a normal diet on the day of the test. 3. Take your medications as you normally would. 4. DO NOT take calcium supplements (such as Tums) for 24 hours before the test. 5. On the day of the test, leave valuables (jewelry or credit cards) at home. 6. The test should be performed prior to oral, rectal or IV contrast studies, or at least 7 days after any of these studies. For the test, you may be asked to wear a hospital gown. You will lie on your back, on a padded table, in a comfortable position. Generally, you can resume your usual activities immediately. documented in this encounterK[facility]02-24-2025 NoteHNO ID: [id number] Author: LAUREN CAMACHO PA-C Service: ? Author Type: Physician Advanced Manager Type: Progress Notes Filed: 01/21/2025 08:26 Note Text: Prashant Sheffield is a 74 year old female here for a Medicare wellness visit. Medicare Health Risk Assessment General Health Fair/average Exercise: Minutes/Day HEP Exercise: Days/Week 5 Alcohol: Daily Use yes Alcohol: Drinks/Day 1 beer/day Alcohol: 6 or more drinks never Feel off balance Yes- parkinson's Concerns: Teeth/Dentures Yes- sees dentist Concerns: Sexual function Declines to answer Troubled by feelings no Frequency: Eating healthy diet sometimes ADLs requiring help yes Safety precautions in home/vehicle yes Smoke, vape, chews tobacco no Difficulty hearing no Difficulty seeing no Current Providers Specialists: I have reviewed specialist-related care of the patient in the medical record. Medical/Family history review Reviewed and updated problem list, medical/surgical/family/social history, medications, and allergies. Opioid use review Opioid Medications (last 90 days) No data to display Anxiety/Depression screening Recommendation: no further intervention at this time Cognitive screening Cognitive screening reviewed and Patient has known cognitive impairment. Functional Observation Was the patient's Timed Up AND Go test unsteady or >= 12 seconds? No Advance Care Planning Surrogate decision maker and/or advance care plan documented Measurements BP 118/70 (BP Site: Left Arm, BP Position: Sitting, BP Cuff Size: Regular Adult) Pulse (!) 57 Temp 36.6 ?C (97.9 ?F) Resp 16 Ht 154.5 cm (5' 0.83") Wt 63 kg (139 lb) SpO2 100% BMI 26.41 kg/m? Vision Screening: Follows with optometry/ophthalmology Assessment/Plan Medicare annual wellness visit, subsequent (Z00.00) - Counseled on healthy diet and regular exercise - Fall avoidance information provided - Personalized prevention plan provided Chief Complaint Patient presents with: Medicare Wellness Exam HPI Prashant Sheffield is a 74 year old female who presents here today for Chronic Medical Conditions.. Patient with hx of HTN, Hyperlipidemia, elevated blood sugar, GERD, parkinson's disease with memory loss, Anxiety with depression, alcohol use, osteoporosis as well as those reviewed and addressed below and in ROS. Patient denies specific concerns today Planning on going to assisted living at [facility]. Past medical history, appointments, medications, allergies reviewed. Previous Medical History PAST MEDICAL HISTORY Diagnosis Date Alcohol use 02/07/2016 1-2 drinks a day. 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, mild, with anxiety (HCC) 07/08/2024 Dry mouth 03/26/2016 Elevated hemoglobin A1c 12/01/2018 Essential hypertension 02/07/2016 Family history of colon cancer paternal grandmother Fibroid uterus 02/07/2016 Had one and never needed surgery Frequent falls 07/20/2021 Patient declines Physical Therapy as of 07/20/2021 GERD without esophagitis 02/07/2016 Hypertensive heart and chronic kidney disease with heart failure and stage 1 through stage 4 chronic kidney disease, or unspecified chronic kidney disease (HCC) 12/26/2023 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 Mixed hyperlipidemia 02/07/2016 Mobility impaired 07/25/2023 Osteopenia, senile 12/15/2019 DXA: 11/2019 Parkinson's disease (HCC) 02/07/[address] 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 Neuro feels may be anxiety related. No recurrence since (last episode was 06/2015) Previous Surgical History PAST SURGICAL HISTORY Procedure Laterality Date COLONOSCOPY 2005 COLONOSCOPY 02/20/2016 Dr. 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 STRESS ECG TREADMILL 12/23/2019 negative Family History FAMILY HISTORY Problem Relation Age of Onset Cancer Father 25 in groin area, Cervical Cancer Maternal Grandmother Colon Cancer Paternal Grandmother Diabetes Mother Hypertension Mother Patient Allergies ALLERGIES Allergen Reactions Betadine [Povidone-* Rash Buspar [Buspirone] Other: See Comments Caused anxiety and shaking: may of been serotonin syndrome with her neuro (more content not included)...[facility]02-24-2025 History of Present illness Narrative* Lauren Camacho PA-C - 01/11/2025 12:55 PM EST Images from the original note were not included. Prashant Sheffield is a 74 year old female here for a Medicare wellness visit. Medicare Health Risk Assessment General Health Fair/average Exercise: Minutes/Day HEP Exercise: Days/Week 5 Alcohol: Daily Use yes Alcohol: Drinks/Day 1 beer/day Alcohol: 6 or more drinks never Feel off balance Yes- parkinson's Concerns: Teeth/Dentures Yes- sees dentist Concerns: Sexual function Troubled by feelings no Frequency: Eating healthy diet sometimes ADLs requiring help yes Safety precautions in home/vehicle Smoke, vape, chews tobacco Difficulty hearing Difficulty seeing Current Providers Specialists: I have reviewed specialist-related care of the patient in the medical record. Medical/Family history review Reviewed and updated problem list, medical/surgical/family/social history, medications, and allergies. Opioid use review Opioid Medications (last 90 days) No data to display Anxiety/Depression screening Recommendation: no further intervention at this time Cognitive screening Cognitive screening reviewed and Patient has known cognitive impairment. Functional Observation Was the patient's Timed Up & Go test unsteady or >= 12 seconds? No Advance Care Planning Surrogate decision maker and/or advance care plan documented Measurements BP 118/70 (BP Site: Left Arm, BP Position: Sitting, BP Cuff Size: Regular Adult) Pulse (!) 57 Temp 36.6 C (97.9 F) Resp 16 Ht 154.5 cm (5' 0.83") Wt 63 kg (139 lb) SpO2 100% BMI 26.41 kg/m Vision Screening: Follows with optometry/ophthalmology Assessment/Plan Medicare annual wellness visit, subsequent (Z00.00) - Counseled on healthy diet and regular exercise - Fall avoidance information provided - Personalized prevention plan provided Chief Complaint Patient presents with: Medicare Wellness Exam HPI Prashant Sheffield is a 74 year old female who presents here today for Chronic Medical Conditions.. Patient with hx of HTN, Hyperlipidemia, elevated blood sugar, GERD, parkinson's disease with memoryloss, Anxiety with depression, alcohol use, osteoporosis as well as those reviewed and addressed below and in ROS. Patient denies specific concerns today Planning on going to assisted living at [facility]. Past medical history, appointments, medications, allergies reviewed. Previous Medical History PAST MEDICAL HISTORY Diagnosis Date Alcohol use 02/07/2016 1-2 drinks a day. 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, mild, with anxiety (HCC) 07/08/2024 Dry mouth 03/26/2016 Elevated hemoglobin A1c 12/01/2018 Essential hypertension 02/07/2016 Family history of colon cancer paternal grandmother Fibroid uterus 02/07/2016 Had one and never needed surgery Frequent falls 07/20/2021 Patient declines Physical Therapy as of 07/20/2021 GERD without esophagitis 02/07/2016 Hypertensive heart and chronic kidney disease with heart failure and stage 1 through stage 4 chronic kidney disease, or unspecified chronic kidney disease (HCC) 12/26/2023 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 Mixed hyperlipidemia 02/07/2016 Mobility impaired 07/25/2023 Osteopenia, senile 12/15/2019 DXA: 11/2019 Parkinson's disease (HCC) 02/07/[address] 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 Neuro feels may be anxiety related. No recurrence since (last episode was 06/2015) Previous Surgical History PAST SURGICAL HISTORY Procedure Laterality Date COLONOSCOPY 2006 COLONOSCOPY 02/20/2016 Dr. 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 STRESS ECG TREADMILL 12/23/2019 negative Family History FAMILY HISTORY Problem Relation Age of Onset Cancer Father 25 in groin area, Cervical Cancer Maternal Grandmother Colon Cancer Paternal Grandmother Diabetes Mother Hypertension Mother Patient Allergies ALLERGIES Allergen Reactions Betadine [Povidone-* Rash Buspar [Buspirone] Other: See Comments Caused anxiety and shaking: may of been serotonin syndrome with her neuro meds. Codeine Intolerance "crazy dreams" does not like to take it Current Medications Current Outpatient Medications on File Prior to Visit Medication Sig omeprazole (PRILOSEC) 40 mg capsule Take 1 capsule by mouth once daily. folic acid 1 mg tablet Take 1 tablet by mouth once daily. alendronate (FOSAMAX) 70 mg tablet Take 1 tablet by mouth one time a week. Take with a full glass of water, on an empty stomach; do NOT lie down for 30minutes. pramipexole (MIRAPEX) 0.5 mg tablet Take 1 tablet by mouth three times a day. Per Neuro simvastatin (ZOCOR) 20 mg tablet Take 1 tablet by mouth daily at bedtime. valsartan (DIOVAN) 160 mg tablet Take 1 tablet by mouth once daily. Cholecalciferol, Vitamin D3, 25 mcg (1,000 unit) cap Take 1 capsule by mouth once daily. diphenhydrAMINE (BENADRYL) 25 mg capsule Take 25 mg by mouth once daily. 2 tablets 25 mg AM and 2 tablets 25 mg PM ferrous sulfate (SLOW FE) 137 mg (45 mg iron) TbER Take 1 tablet by mouth every other day. ascorbic acid, vitamin C, (VITAMIN C) 500 mg tablet Take 1 tablet by mouth every other day. benztropine (COGENTIN) 2 mg tablet Take 0.5 tablets by mouth two times a day. Per Neurology at [facility] Melatonin 5 mg cap Take 2 capsules by mouth daily at bedtime. cyanocobalamin (VITAMIN B-12) 1,000 mcg tab Take 1 tablet by mouth once daily. citalopram hydrobromide (CELEXA) 10 mg tablet Take 1 tablet by mouth once daily. Take with 20 mg dose for total of 30mg daily, getting from Neurology at [facility] citalopram (CELEXA) 20 mg tablet Take 1 tablet by mouth daily at bedtime. Take with 10mg dose for total of 30mg daily. Per neurology at [facility] estradiol (ESTRACE) 0.01 % (0.1 mg/gram) vaginal cream Use 1 g vaginally twice a week. aspirin, enteric coated (ADULT LOW DOSE ASPIRIN) 81 mg EC tablet Take 1 tablet by mouth once daily. furosemide (LASIX) 20 mg tablet Take 1 tablet by mouth once daily. (Patient taking differently: Take 20 mg by mouth as needed.) multivitamin tablet Take 1 tablet by mouth once daily. (Patient not taking: Reported on 07/08/2024) CALCIUM CARBONATE/VITAMIN D3 (CALCIUM 500 + D ORAL) Take by mouth. (Patient not taking: Reported on01/11/2025) No current facility-administered medications on file prior to visit. Social History Social History Tobacco Use Smoking status: Never Smokeless tobacco: Never Vaping Use Vaping status: Never Used Substance Use Topics Alcohol use: Yes Comment: approximately 1-2 beers/wine daily Drug use: No Review of Symptoms REVIEW OF SYSTEMS GENERAL: No weight loss, malaise or fevers NECK: Negative for lumps, goiter, pain and significant neck swelling RESPIRATORY: Negative for cough, hemoptysis, wheezing, COPD, dyspnea or shortness of breath CARDIOVASCULAR: Negative for chest pain, leg swelling, hypertension, CHF or palpitations GI: Negative for abdominal discomfort, blood in stools or black stools, change in bowel habit, heart burn, nausea, vomiting : +change in urine color NEURO: +parkinson's. No changes EXAM: BP 118/70 (BP Site: Left Arm, BP Position: Sitting, BP Cuff Size: Regular Adult) Pulse (!) 57 Temp 36.6 C (97.9 F) Resp 16 Ht 154.5 cm (5' 0.83") Wt 63 kg (139 lb) SpO2 100% BMI 26.41 kg/m General Appearance: Well appearing, alert, in no acute distress, well-hydrated, well nourished.. Head: Normocephalic, no masses, lesions, tenderness or abnormalities. Eyes: Anicteric sclera. Pupils are equally round and reactive to light. Extraocular movements are intact. . Ears: External ears normal, canals clear, TMs pearly edwards. Nose/Sinuses: Nares normal, septum midline, mucosa normal, no drainage or sinus tenderness. Oropharynx: Lips, mucosa, and tongue normal, teeth and gums normal, oropharynx normal. Neck: Supple, no adenopathy; thyroid symmetric, normal size, no bruits. Lungs: Lungs clear to auscultation. No wheezing, rhonchi, rales.. Heart: RRR without murmur, gallop, or rubs. No ectopy. Abdomen: Normal abdominal exam, Abdomen soft, non-tender. Bowel sounds normal. No masses, organomegaly. Extremities: No deformities, edema, skin discoloration, clubbing or cyanosis. Good capillary refill. . Peripheral Pulses: Normal. Neurologic: Gait normal. Reflexes normal and symmetric. Sensation grossly intact.. Health Maintenance List Mammogram Screening due on 11/04/2021 RSV Vaccine(1 - Risk 60-74 years 1-dose series) due on 07/08/2025 Covid-19 Vaccine(2023- season) due on 02/18/2025 Serum Creatinine due on 01/05/2026 Hemoglobin/Hematocrit due on 01/05/2026 Annual PCP Team Chronic Disease Visit due on 01/11/2026 BP Controlled (<130/80) due on 01/11/2026 Colorectal Cancer Screening due on 02/19/2026 Diabetes Screening due on 01/05/2028 Lipid Screening due on 01/05/2030 DTaP,Tdap,Td Vaccine(2 - Td or Tdap) due on 03/23/2034 Bone Density Screening Completed Influenza Vaccine Completed Advance Directive Discussion Completed Hepatitis C Screening Completed Shingrix Vaccine Completed Pneumococcal Vaccine: 50+ Completed Data reviewed Latest Ref Rng 01/05/2025 WBC 3.70 - 11.00 k/uL 6.76 RBC 3.90 - 5.20 m/uL 3.94 Hemoglobin 11.5 - 15.5 g/dL 11.3 (L) Hematocrit 36.0 - 46.0 % 36.1 MCV 80.0 - 100.0 fL 91.6 MCH 26.0 - 34.0 pg 28.7 MCHC 30.5 - 36.0 g/dL 31.3 RDW-CV 11.5 - 15.0 % 13.7 Platelet Count 150 - 400 k/uL 216 MPV 9.0 - 12.7 fL 11.6 Neut% % 53.3 Abs Neut (ANC) 1.45 - 7.50 k/uL 3.60 Lymph% % 33.3 Abs Lymph 1.00 - 4.00 k/uL 2.25 [place]% % 8.4 Abs [place] <0.87 k/uL 0.57 Eosin% % 4.0 Abs Eosin <0.46 k/uL 0.27 Baso% % 0.7 Abs Baso <0.11 k/uL 0.05 Immature Gran % % 0.3 IMMATURE GRANS (ABS) <0.10 k/uL <0.03 NRBC /100 WBC 0.0 Absolute nRBC <0.01 k/uL <0.01 DTYPE Auto Color Yellow Yellow Clarity Clear Clear Glucose, Urine Negative Negative Bilirubin, Urine Negative Negative Ketones, Urine Negative Negative Specific [place], Ur 1.005 - 1.030 1.017 Hemoglobin/Blood,Ur Negative Negative pH, Urine <8.5 6.5 Protein, Urine Negative Negative Urobilinogen 0.2-1.0 EU/dL 0.2 EU/dL Nitrites Negative Positive ! Leukest Negative 1+ ! WBC, Urine 0-5 /HPF >20 /HPF ! RBC, Urine 0-2 /HPF 0-2 /HPF Bacteria uL Negative uL >9,821 (H) Epithelial Cells /HPF None Seen Hyaline Cast 0 /LPF 0 /LPF Protein, Total 6.3 - 8.0 g/dL 6.9 Albumin 3.9 - 4.9 g/dL 4.5 Calcium 8.5 - 10.2 mg/dL 10.0 Bilirubin, Total 0.2 - 1.3 mg/dL 0.3 Alkaline Phosphatase 34 - 123 U/L 67 AST 13 - 35 U/L 19 ALT 7 - 38 U/L 20 Glucose 74 - 99 mg/dL 82 BUN 7 - 21 mg/dL 21 Creatinine 0.58 - 0.96 mg/dL 1.09 (H) Sodium 136 - 144 mmol/L 139 Potassium 3.7 - 5.1 mmol/L 5.0 Chloride 98 - 107 mmol/L 102 CO2 22 - 30 mmol/L 26 Anion Gap 8 - 15 mmol/L 11 eGFR >=60 mL/min/1.73m 54 (L) Total Cholesterol, Nonfasting <200 mg/dL 162 Triglycerides, Nonfasting <150 mg/dL 74 HDL Cholesterol, Nonfasting >39 mg/dL 68 LDL Cholesterol, Nonfasting <100 mg/dL 79 Non HDL Cholesterol, Nonfasting <130 mg/dL 94 VLDL Cholesterol, Nonfasting <30 mg/dL 15 Total Chol/HDL Ratio, Nonfasting <5.10 mg/dL 2.38 LDL/HDL Ratio, Nonfasting <2.54 mg/dL 1.16 Iron 41 - 186 ug/dL 61 TIBC 232 - 386 ug/dL 291 Transferrin Saturation 15.0 - 57.0 % 21.0 Hemoglobin A1C 4.3 - 5.6 % 5.4 Estimated Average Glucose mg/dL 108 Vitamin B12 232 - 1,245 pg/mL 1,135 Magnesium 1.7 - 2.3 mg/dL 2.2 ASSESSMENT/PLAN: 1. Medicare annual wellness visit, subsequent - ICD9: V70.0, ICD10: Z00.00 (primary diagnosis) - Counseled on healthy diet and regular exercise 2. Advance directive discussed with patient - ICD9: V65.49, ICD10: Z71.89 To bring copies 3. Mixed hyperlipidemia - ICD9: 272.2, ICD10: E78.2 - Controlled - Continue current medications - Counseled on healthy diet and regular exercise - SIMVASTATIN 20 MG TABLET 4. Essential hypertension - ICD9: 401.9, ICD10: I10 - Controlled - Continue current medications - Recommend home blood pressure monitoring, to bring results to next visit - Encouraged sodium restriction, DASH or Mediterranean diet - Recommend regular aerobic exercise - VALSARTAN 160 MG TABLET 5. Hypertensive heart and chronic kidney disease with heart failure and stage 1 through stage 4 chronic kidney disease, or unspecified chronic kidney disease (HCC) - ICD9: 404.91, 428.9, 585.9, ICD10: I13.0 - Controlled - Continue current medications - Recommend home blood pressure monitoring, to bring results to next visit - Encouraged sodium restriction, DASH or Mediterranean diet - Recommend regular aerobic exercise 6. 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 GERD without esophagitis - ICD9: 530.81, ICD10: K21.9 - stable 8. Alcohol use - ICD9: V49.89, ICD10: Z78.9 Patient has decreased 9. Stage 3a chronic kidney disease (HCC) - ICD9: 585.3, ICD10: N18.31 - eGFR: 54 Stable - Counseled on avoiding NSAIDs, adequate hydration 10. Elevated hemoglobin A1c - ICD9: 790.29, ICD10: R73.09 stable 11. Low serum vitamin B12 - ICD9: 266.2, ICD10: E53.8 stable 12. Iron deficiency anemia, unspecified iron deficiency anemia type - ICD9: 280.9, ICD10: D50.9 stable 13. Memory loss - ICD9: 780.93, ICD10: R41.3 stable 14. Mobility impaired - ICD9: 799.89, ICD10: Z74.09 overallstable 15. Falls frequently - ICD9: V15.88, ICD10: R29.6 Hx of parkinson's 16. Atrophic vaginitis - ICD9: 627.3, ICD10: N95.2 17. Parkinson's disease, unspecified whether dyskinesia present, unspecified whether manifestationsfluctuate (HCC) - ICD9: 332.0, ICD10: G20.A1 Cont with neuro Overall stable 18. Urine frequency - ICD9: 788.41, ICD10: R35.0 acute - Send urine for culture - Patient education for prevention given - BACTERIAL CULTURE, URINE 19. Asymptomatic menopause - ICD9: V49.81, ICD10: Z78.0 check - DXA-AXIAL SKELETON - BD DXA TRABECULAR BONE SCORE (TBS) Lauren Camacho PA-C I spent a total of 50 minutes on the date of the service which included preparing to see the patient, [id number] patient care, completing clinical documentation, obtaining and/or reviewing separately obtained history, performing a medically appropriate examination, counseling and educating the pat ient/family/caregiver, ordering medications, tests, or procedures, and communicating results to thepatient/family/caregiver. documented in this [facility] Telephone encounter Note * Telephone Encounter - Berlin Urrutia LPN - 12/10/2024 9:46 AM EST Prescription Refill Information The patient has been identified by name and date of : Yes Caregiver verified no other encounters exist for this prescription request: Yes Caregiver confirmed with patient/requestor that no other refills are due, in the near future, with this provider at this time: Yes The last office visit in the department: 08/20/24 Does the patient have a future office visit with this provider/department: Yes Requested Prescriptions Pending Prescriptions Disp Refills omeprazole (PRILOSEC) 40 mg capsule 90 capsule 1 Sig: Take 1 capsule by mouth once daily. Berlin Urrutia LPN December 10, 2024 9:46 AM [facility]01-23-2025 Miscellaneous Notes* Telephone Encounter - Berlin Urrutia LPN - 12/10/2024 9:46 AM EST Prescription Refill Information The patient has been identified by name and date of : Yes Caregiver verified no other encounters exist for this prescription request: Yes Caregiver confirmed with patient/requestor that no other refills are due, in the near future, with this provider at this time: Yes The last office visit in the department: 08/20/24 Does the patient have a future office visit with this provider/department: Yes Requested Prescriptions Pending Prescriptions Disp Refills omeprazole (PRILOSEC) 40 mg capsule 90 capsule 1 Sig: Take 1 capsule by mouth once daily. Berlin Urrutia LPN December 10, 2024 9:46 AM * Telephone Encounter - Maryana Jacob - 12/10/2024 9:07 AM EST Prescription Refill Information The patient has been identified by name and date of : Yes Caregiver verified no other encounters exist for this prescription request: Yes Caregiver confirmed with patient/requestor that no other refills are due, in the near future, with this provider at this time: Yes The last office visit in the department: 08-20-24 Does the patient have a future office visit with this provider/department: Yes Requested Prescriptions Pending Prescriptions Disp Refills omeprazole (PRILOSEC) 40 mg capsule 90 capsule 1 Sig: Take 1 capsule by mouth once daily. Maryana Jacob December 10, 2024 9:08 AM documented in this encounterK[facility] Telephone encounter Note * Telephone Encounter - Maryana Jacob - 12/10/2024 9:07 AM EST Prescription Refill Information The patient has been identified by name and date of : Yes Caregiver verified no other encounters exist for this prescription request: Yes Caregiver confirmed with patient/requestor that no other refills are due, in the near future, with this provider at this time: Yes The last office visit in the department: 08-20-24 Does the patient have a future office visit with this provider/department: Yes Requested Prescriptions Pending Prescriptions Disp Refills omeprazole (PRILOSEC) 40 mg capsule 90 capsule 1 Sig: Take 1 capsule by mouth once daily. Maryana Jacob December 10, 2024 9:08 AM [facility]01-07-[facility]25 NoteHNO ID: [id number] Author: BERLIN URRUTIA LPN Service: ? Author Type: LICENSED NURSE Type: Progress Notes Filed: 11/24/2024 13:44 Note Text: Scan on 11/24/2024 10:36 AM by ProviderJovany PA-C: Consultation - [facility]/OT/[facility] History of Present illness Narrative* Berlin Urrutia LPN - 11/24/2024 1:44 PM EST Scan on 11/24/2024 10:36 AM by ProviderJovany PA-C: Consultation - PT/OT/Speech documented in this encounterK[facility]12-10-2024 Note* Addendum Note - Ez Solitario MD - 10/27/2024 7:56 PM ESTAddended by: EZ SOLITARIO on: 10/27/2024 07:56 PM Modules accepted: Orders [facility]12-10-2024 Miscellaneous Notes* Addendum Note - Ez Solitario MD - 10/27/2024 7:56 PM ESTAddended by: EZ SOLITARIO on: 10/27/2024 07:56 PM Modules accepted: Orders documented in this encounterK[facility]12-10-2024 NoteHNO ID: [id number] Author: BERLIN URRUTIA LPN Service: ? Author Type: LICENSED NURSE Type: Progress Notes Filed: 10/27/2024 14:46 Note Text: Scan on 10/27/2024 2:32 PM by ProviderJovany PA-C: [facility]ation [facility]12[facility] History of Present illness Narrative* Berlni Urrutia LPN - 10/27/2024 2:45 PM EST Scan on 10/27/2024 2:32 PM by ProviderJovany PA-C: Consultation - Neurology documented in this encounterK[facility]11-27-2024 NoteHNO ID: [id number] Author: MEÑO PHILLIP PT Service: ? Author Type: Physical Therapist Type: Progress Notes Filed: 10/14/2024 13:19 Note Text: 10/14/2024 [facility]IL[facility] SPORTS THERAPY PHYSICAL THERAPY DISCONTINUANCE OF CARE Plan of Care Period: Start of Care Date: 09/14/24 Last Visit Date: 09/14/2024 Therapy Program: Patient did not return for follow up care as planned. Please refer to last visit note for interventions provided for this episode of care. Assessment: Unable to formally assess goal achievement. Reason for Discontinuation of Care: Was seeking therapy elsewhere as patient AND sister wanted skilled therapy 3x/week. Patient has not returned to therapy or scheduled additional follow-up appointments. Meño Phillip, [facility]11-13-2024 NotePatient Outreach (INTMMN) PRASHANT SHEFFIELD ([id number]) 1950 F Date Time Provider Department 09/30/24 EZ SOLITARIO During your visit today, we recorded the following information about you: Allergies As of Date: 09/30/2024 Noted Allergy Reaction BETADINE (POVIDONE-IODINE) 07/09/2017 2 - Rash BUSPAR (BUSPIRONE) 09/25/2023 14 - Other: See Comments Comments: Caused anxiety and shaking: may of been serotonin syndrome with her neuro meds. CODEINE 02/07/2016 5 - Intolerance Comments: "crazy dreams" does not like to take it Date Reviewed: 08/20/2024 Reviewed by: Allie Chung MA - Fully Assessed Visit Diagnosis:Encounter for screening mammogram for breast cancer [Z12.31] Order(s):[facility] SCREENING [facility] [[id number]] Order #: [id number] FUTURE Prescriptions as of 10/05/2024 - folic acid 1 mg tablet Take 1 tablet by mouth once daily. - alendronate (FOSAMAX) 70 mg tablet Take 1 tablet by mouth one time a week. Take with a full glass of water, on an empty stomach; do NOT lie down for 30minutes. - pramipexole (MIRAPEX) 0.5 mg tablet Take 1 tablet by mouth three times a day. Per Neuro - rasagiline (AZILECT) 0.5 mg tab Take 1 tablet by mouth once daily. Per Neurology at [facility] - simvastatin (ZOCOR) 20 mg tablet Take 1 tablet by mouth daily at bedtime. - valsartan (DIOVAN) 160 mg tablet Take 1 tablet by mouth once daily. - Cholecalciferol, Vitamin D3, 25 mcg (1,000 unit) cap Take 1 capsule by mouth once daily. - omeprazole (PRILOSEC) 40 mg capsule Take 1 capsule by mouth once daily. - diphenhydrAMINE (BENADRYL) 25 mg capsule Take 25 mg by mouth once daily. 2 tablets 25 mg AM and 2 tablets 25 mg PM - ferrous sulfate (SLOW FE) 137 mg (45 mg iron) TbER Take 1 tablet by mouth every other day. - ascorbic acid, vitamin C, (VITAMIN C) 500 mg tablet Take 1 tablet by mouth every other day. - benztropine (COGENTIN) 2 mg tablet Take 0.5 tablets by mouth two times a day. Per Neurology at [facility] - Melatonin 5 mg cap Take 2 capsules by mouth daily at bedtime. - furosemide (LASIX) 20 mg tablet Take 1 tablet by mouth once daily. - cyanocobalamin (VITAMIN B-12) 1,000 mcg tab Take 1 tablet by mouth once daily. - citalopram hydrobromide (CELEXA) 10 mg tablet Take 1 tablet by mouth once daily. Take with 20 mg dose for total of 30mg daily, getting from Neurology at [facility] - citalopram (CELEXA) 20 mg tablet Take 1 tablet by mouth daily at bedtime. Take with 10mg dose for total of 30mg daily. Per neurology at [facility] - estradiol (ESTRACE) 0.01 % (0.1 mg/gram) vaginal cream Use 1 g vaginally twice a week. - multivitamin tablet Take 1 tablet by mouth once daily. - CALCIUM CARBONATE/VITAMIN D3 (CALCIUM 500 + D ORAL) Take by mouth. - aspirin, enteric coated (ADULT LOW DOSE ASPIRIN) 81 mg EC tablet Take 1 tablet by mouth once daily. 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] 12/06/2016 Medicare annual wellness visit, subsequent [Z00*06/05/2017 Neoplasm of uncertain behavior of skin of back *06/05/2017 12/06/2017 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] 07/11/2017 Elevated hemoglobin A1c [R73.09] 12/01/2018 Memory loss [R41.3] 06/01/2019 Atrophic vaginitis [N95.2] 06/09/2019 Medication management [Z79.899] 12/09/2019 Osteopenia, senile [M85.80] 12/15/2019 Stage 3a chronic kidney disease (HCC) [N18.31] 01/16/2021 Falls frequently [R29.6] 07/20/2021 Low serum vitamin B12 [E53.8] 02/07/2022 Advance directive discussed with patient [Z71.8*08/13/2022 Anemia [D64.9] 02/11/[address] [Z78.9] 02/12/2023 Mobility impaired [Z74.09] 07/25/2023 Driving safety issue [Z91.89] 07/25/2023 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 Requested Prescriptions Signed Prescriptions Disp Refills folic acid 1 mg tablet 90 tablet 3 Sig: Take 1 tablet by mouth once daily. Authorizing Provider: EZ SOLITARIO MD [facility] Miscellaneous Notes* Telephone Encounter - Ez Solitario MD - 09/15/2024 4:15 PM EDT The following approved medication requests have been transmitted electronically. Requested Prescriptions Signed Prescriptions Disp Refills folic acid 1 mg tablet 90 tablet 3 Sig: Take 1 tablet by mouth once daily. Authorizing Provider: EZ SOLITARIO MD * Telephone Encounter - Sonia Lucero - 09/15/2024 3:11 PM EDT Patient has been identified by name and date of : Yes Patient phones for refill(s): Requested Prescriptions Pending Prescriptions Disp Refills folic acid 1 mg tablet 90 tablet 3 Sig: Take 1 tablet by mouth once daily. Date of last office visit in primary care: 08/20/2024 Date of next office visit in primary care: 01/11/2025 Please advise. Thank you. Sonia Lucero. documented in this encounterK[facility]10-29-2024 Telephone encounter Note * Telephone Encounter - Sonia Lucero - 09/15/2024 3:11 PM EDT Patient has been identified by name and date of : Yes Patient phones for refill(s): Requested Prescriptions Pending Prescriptions Disp Refills folic acid 1 mg tablet 90 tablet 3 Sig: Take 1 tablet by mouth once daily. Date of last office visit in primary care: 08/20/2024 Date of next office visit in primary care: 01/11/2025 Please advise. Thank you. Sonia Lucero. [facility] Work Phone: [phone]) 984-585010-28-2024 History of Present illness Narrative* Meño Phillip, PT - 09/14/2024 1:00 PM EDT Program_ID:[id number] Access Code: [email or web address] URL: [email or web address] Date: 09-14-2024 Prepared By: Meño Phlilip Program Notes Exercises - Supine Piriformis Stretch with Foot on Ground - 2 x daily - 7 x weekly - 2-3 sets - reps - Supine Lower Trunk Rotation - 2 x daily - 7 x weekly - 2 sets - 10 reps - Clamshell - 2 x daily - 7 x weekly - 2 sets - 10 reps * Meño Phillip, PT - 09/14/2024 12:15 PM EDT Images from the original note were not included. Episode Visit Count: 1 Therapist That Will Accept/Oversee The Plan Of Care: Meño Phillip Start of Care Date: 09/14/24 Onset Date: 12/15/23 (6-9 Months per Sister.) Plan of Care Certification Date: 09/14/24 Next Certification Due Date: 10/19/24 Patient Identified by Name and Date of : Yes REHABILITATION AND SPORTS THERAPY PHYSICAL THERAPY EVALUATION PLAN OF CARE: Assessment: Prashant Sheffield presents with chief complaint of L Sided LBP with L Radicular Pain that interferes with sitting . Patient states Left Leg Pain > LBP. The patient presents with impairments in ADL's, flexibility, gait, independence in exercise, overall function, patient reported outcomemeasures, posture, range of motion, soft tissue healing, strength, symptom management, and tissue tenderness. PROMIS (Patient-Reported Outcomes Measurement Information System) scores were reviewed and identified as a rehabilitation concern. Prognosis for therapy is Good due to: current objective clinical presentation, positive past response to therapy, good support system/ coping skills .The patient will benefit from skilled therapy services to meet the goals established for this plan of care as noted below. Classification Pain Mechanism Classification: Neuropathic Low Back Pain Classification: Movement Control Goals for Episode of Care: established 09/14/24 Patient reported outcome of physical function will increase T-score by a minimum 5 points. [place] in home exercise program. Patient will decrease pain rating by 2 points to meet minimal clinical important difference for numeric pain rating scale. Perform Sitting with decreased report of symptoms/pain in 6 weeks. Restore pain-free lumbar ROM to WFL to allow for improved ADL/IADLs Decreased tissue tenderness & irritability to L Hip/Low Back. Improve Modified Oswestry Pain Questionnaire (LBP) by 6 points (12%) to indicate a Minimal ClinicalImportant Difference. Patient Goals: Alleviate Pain. Time Frame for Goals and Treatment : 12/23/24 Planned Interventions, Frequency, and Duration: Current Frequency: 2x/week Duration: 4 weeks Total Number of Visits Planned: 8 Planned Treatment Interventions: Therapeutic exercise (52821), Neuromuscular re- education (78421), Manual therapy (23996), Therapeutic activities (08802), Self- jail management (91653), Gait Training (27104), Body Mechanics Training, Patient/Family/Caregiver Education PLAN FOR NEXT VISIT: Review, correct and progress HEP to tolerance; STM to L Posterior Hip; introduce sciatic flossing. Patient demonstrates good understanding of plan of care and treatment. The above goals and plan of care were discussed and agreed upon by patient/family. SUBJECTIVE: Arrives with Sister; reports LLE from the hip to the ankle/foot - trouble describing the pain. painis mostly with sitting; gets better with walking and standing. Intermittent pain, not every day. Use to be more in the everning, now a.m. and p.m. when it does come on. Patient has tried ice/heat, mmrelaxer, tylenol, new mattress, lift chair, tried topicals, knee & back brace. No pain today, last pain was last night. Fall History Overall, Last Fall Jul 2023. Was on FWW till 2023. Patient Goals: Alleviate Pain. Functional Limitations: sitting Prior Level of Function: Independent without limitations Relevant History Past Relevant Medical Conditions: Parkinson's Disease, Falls, Comments Relevant Medical Conditions Comments: Osteopenia; HTN - See Eval Note. Employment: Retired Recreation / Current Exercise: Walking, Steps, Arm Exercises throughout the day. Home Environment Patient Lives With: Family (Lives with Sister.) Intake Information: Prescription present Previous Treatment: (See Subjective.) Falls Interview: Comments Falls Comments: Fall History, use to use AD. No fall in the past year. Red Flags Vertebral Fracture Red Flags: Female, Age >70 Vertebral Fracture Clinical Reasoning: Proceed with caution due to the above (1- 2) risk factors Abdominal Aortic Aneurysm Red Flags: Age >60 Abdominal Aortic Aneurysm Clinical Reasoning: Proceed with caution Cancer Red Flags: Age >50 or <20 Cancer Clinical Reasoning: Proceed with caution Infection Clinical Reasoning: No identified risk factors. Cauda Equina Syndrome Clinical Reasoning: No identified risk factors. Red Flags - Cervical Cancer Red Flags: Age >50 or <20 Cancer Clinical Reasoning: Proceed with caution Infection Clinical Reasoning: No identified risk factors. PAST MEDICAL HISTORY Diagnosis Date Alcohol use 02/07/2016 1-2 drinks a day. 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, mild, with anxiety ([facility]) 07/08/2024 Dry mouth 03/26/2016 Elevated hemoglobin A1c 12/01/2018 Essential hypertension 02/07/2016 Family history of colon cancer paternal grandmother Fibroid uterus 02/07/2016 Had one and never needed surgery Frequent falls 07/20/2021 Patient declines Physical Therapy as of 07/20/2021 GERD without esophagitis 02/07/2016 Hypertensive heart and chronic kidney disease with heart failure and stage 1 through stage 4 chronic kidney disease, or unspecified chronic kidney disease (HCC) 12/26/2023 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 Mixed hyperlipidemia 02/07/2016 Mobility impaired 07/25/2023 Osteopenia, senile 12/15/2019 DXA: 11/2019 Parkinson's disease (HCC) 02/07/[address] 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 Neuro feels may be anxiety related. No recurrence since (last episode was 06/2015) Pain: Pain Pain Level: 0 (Denies Pain Today.) Pain Location: Leg - Left Post Treatment Pain Post Treatment Pain Level: No Change PROMIS Scales 09/14/2024 Higher is Better Phys Func - Score 41 (mild dysfunction) Phys Func - Percentile 18 Self-Eff Symptom - Score 41 (Average) Self-Eff Symptom - Percentile 18 T-scores: mean of general population = 50. 5 points is clinically meaningfully difference Percentiles provide an indication of how the patient's score ranks in relation to the general population. Higher percentile rankings indicate better function/quality of life. 50th percentile is the average of the general population and indicates half of respondents had a worse score. OBJECTIVE MEASURES WITH LEVEL OF FUNCTION: Posture / Alignment Posture: Forward head, Decreased lumbar lordosis Lumbo - Pelvic Alignment: Increased Bent Over Position in Standing. Spine Observations L Lumbar Spine Palpation Tenderness: Sciatic notch, Gluteals, Piriformis, Ischial tuberosity, Comments L Lumbar Spine Palpation Comments: Lateral Border of Sacrum; PSIS Sensation - Lumbar Sensation: Grossly Intact Lumbar Spine AROM Lumbar Flexion: Moderate limitation Lumbar Extension: Major limitation Lumbar R Side-Bend: Minimal limitation Lumbar L Side-Bend: Minimal limitation Lumbar R Rotation: Moderate limitation Lumbar L Rotation: Moderate limitation Lumbar Spine AROM Comments: Slow to mobilize; no reproduction of concordant symptoms. LE Flexibility Flexibility: Hamstring Flexibility, Hip Internal Rotation Flexibility R Hamstring Flexibility: Limited L Hamstring Flexibility: Limited R Hip Internal Rotation Flexibility: Good L Hip Internal Rotation Flexibility: Limited Compared to Left. LE Strength R LE Strength: Grossly 4+/5 without asymmetrical differences. L LE Strength: Grossly 4+/5 without asymmetrical differences. Special Tests - Hip and Spine Hip and Spine Special Tests: SLR Test, Slump Test, KELLY Test SLR Test: Right Negative, Left Negative Slump Test: Right Negative, Left Negative KELLY Test: Right Negative, Left Negative Gait Gait Observation: PD -- Fwd flexed posture, shuffling steps with decreased stride/step length and murphy overall. No AD. Education: Education Learning Preferences: Demonstration, Explanation Barriers: None Learning/educational needs: Health promotion, Home exercise program, Plan of Care Education Provided: Yes, see treatment interventions for education provided Education Provided To: Patient Education Mode/Type: Demonstration, Explanation/Discussion, Literature/Printed Materials Response to Education/Teach Back: States/Identifies TREATMENT: PT Treatment Interventions: Therapeutic Exercise, Self-Mcfp Management Evaluation Therapeutic Exercise: 1: L SKC: 1x30". (Not on HEP.) 2: *L Piriformis in Hooklying 1x30". 3: *LTR: x10 each. 4: *L Clamshells: x10. 5: *STM to L GLuteals and Piriformis. Discussed sister can help complete at home. 6: discussed purpose of the HEP and the HEP handout was provided to the pt. HEP discussed in detail with how to safely and properly perform each therapeutic exercise. Skilled Intervention: Patient was educated in proper exercise technique and purpose for exercises. Reviewed and educated patient on additions/changes for home exercise program as above (*). Skilled judgment was used in selection of appropriate interventions. Provided written instruction for home exercise program to facilitate proper performance and compliance. Correct performance of therapeutic exercises was facilitated with verbal cuing. Self-Mcfp Management: 1: *Discussed differentials; Education about lumbar anatomy related to diferential diagnosis/es. Discussed rehab process and timeframe for goals. 2: *Discussed avoiding exercises or activities that cause INC pain and/or peripheralize sxs. 3: *Discussion regarding plan of care & frequency of PT. Explained & educated patient/sister based on best professional judgement. Discussed frequency of 1-2x a week based on her current chronic clinical presentation, timeframe for healing, and appropriateness of skilled care. Discussed howclinically 3x a week would not be as appropriate, benefits would exhausted more quickly. Discussed i mportance of HEP independently for progression of function & pain/symptoms. Skilled Intervention: Skilled judgment in the selection of proper modification for activity of daily living/home management based on clinical presentation, deficits, and needs. Reviewed patient specific diagnosis in relation to activities of daily living/home management. Activity progression based on professional judgement. Billing * Evaluation Low Complexity: 1 Unit Therapeutic Exercise Treatment Minutes: 8 Self-Care/Home Management Treatment Minutes: 18 Skilled Treatment Time Minutes (timed and untimed codes): 55 Total Session Time (minutes): 60 Session Start Time : 1215 Session Stop Time : 1315 Meño Phillip PT [facility] NoteHNO ID: [id number] Author: MEÑO PHILLIP PT Service: ? Author Type: Physical Therapist Type: Progress Notes Filed: 09/14/2024 14:15 Note Text: Episode Visit Count: 1 Therapist That Will Accept/Oversee The Plan Of Care: Meño Phillip Start of Care Date: 09/14/24 Onset Date: 12/15/23 (6-9 Months per Sister.) Plan of Care Certification Date: 09/14/24 Next Certification Due Date: 10/19/24 Patient Identified by Name and Date of : Yes REHABILITATION AND SPORTS THERAPY PHYSICAL THERAPY EVALUATION PLAN OF CARE: Assessment: Prashant Sheffield presents with chief complaint of L Sided LBP with L Radicular Pain that interferes with sitting . Patient states Left Leg Pain > LBP. The patient presents with impairments in ADL's, flexibility, gait, independence in exercise, overall function, patient reported outcome measures, posture, range of motion, soft tissue healing, strength, symptom management, and tissue tenderness. PROMIS? (Patient-Reported Outcomes Measurement Information System) scores were reviewed and identified as a rehabilitation concern. Prognosis for therapy is Good due to: current objective clinical presentation, positive past response to therapy, good support system/ coping skills .The patient will benefit from skilled therapy services to meet the goals established for this plan of care as noted below. Classification Pain Mechanism Classification: Neuropathic Low Back Pain Classification: Movement Control Goals for Episode of Care: established 09/14/24 Patient reported outcome of physical function will increase T-score by a minimum 5 points. [place] in home exercise program. Patient will decrease pain rating by 2 points to meet minimal clinical important difference for numeric pain rating scale. Perform Sitting with decreased report of symptoms/pain in 6 weeks. Restore pain-free lumbar ROM to WFL to allow for improved ADL/IADLs Decreased tissue tenderness AND irritability to L Hip/Low Back. Improve Modified Oswestry Pain Questionnaire (LBP) by 6 points (12%) to indicate a Minimal Clinical Important Difference. Patient Goals: Alleviate Pain. Time Frame for Goals and Treatment : 11/09/24 Planned Interventions, Frequency, and Duration: Current Frequency: 2x/week Duration: 4 weeks Total Number of Visits Planned: 8 Planned Treatment Interventions: Therapeutic exercise (61255), Neuromuscular re-education (63963), Manual therapy (32064), Therapeutic activities (40221), Self-jail management (90706), Gait Training (41557), Body Mechanics Training, Patient/Family/Caregiver Education PLAN FOR NEXT VISIT: Review, correct and progress HEP to tolerance; STM to L Posterior Hip; introduce sciatic flossing. Patient demonstrates good understanding of plan of care and treatment. The above goals and plan of care were discussed and agreed upon by patient/family. SUBJECTIVE: Arrives with Sister; reports LLE from the hip to the ankle/foot - trouble describing the pain. pain is mostly with sitting; gets better with walking and standing. Intermittent pain, not every day. Use to be more in the everning, now a.m. and p.m. when it does come on. Patient has tried ice/heat, mm relaxer, tylenol, new mattress, lift chair, tried topicals, knee AND back brace. No pain today, last pain was last night. Fall History Overall, Last Fall Jul 2023. Was on FWW till 2023. Patient Goals: Alleviate Pain. Functional Limitations: sitting Prior Level of Function: Independent without limitations Relevant History Past Relevant Medical Conditions: Parkinson's Disease, Falls, Comments Relevant Medical Conditions Comments: Osteopenia; HTN - See Eval Note. Employment: Retired Recreation / Current Exercise: Walking, Steps, Arm Exercises throughout the day. Home Environment Patient Lives With: Family (Lives with Sister.) Intake Information: Prescription present Previous Treatment: (See Subjective.) Falls Interview: Comments Falls Comments: Fall History, use to use AD. No fall in the past year. Red Flags Vertebral Fracture Red Flags: Female, Age >70 Vertebral Fracture Clinical Reasoning: Proceed with caution due to the above (1-2) risk factors Abdominal Aortic Aneurysm Red Flags: Age >60 Abdominal Aortic Aneurysm Clinical Reasoning: Proceed with caution Cancer Red Flags: Age >50 or <20 Cancer Clinical Reasoning: Proceed with caution Infection Clinical Reasoning: No identified risk factors. Cauda Equina Syndrome Clinical Reasoning: No identified risk factors. Red Flags - Cervical Cancer Red Flags: Age >50 or <20 Cancer Clinical Reasoning: Proceed with caution Infection Clinical Reasoning: No identified risk factors. PAST MEDICAL HISTORY Diagnosis Date Alcohol use 02/07/2016 1-2 drinks a day. 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 Patient agreeable and will call back to schedule PT. [facility]10-[facility] Miscellaneous Notes* Telephone Encounter - Deirdre Oliva RN - 08/25/2024 4:55 PM EDT Pt returned call and given provider's message below with verbalized understanding. Patient agreeable and will call back to schedule PT. * Telephone Encounter - Meera Yun MA - 08/25/2024 4:17 PM EDT Message left for pt to call back for results. Meera Yun MA * Telephone Encounter - Edna Umanzor APRN.CNP - 08/25/2024 4:06 PM EDT Please let patient know her lumbar spine xr shows disc space loss or narrowing of the disc space. Iwould recommend PT [facility] Telephone encounter Note * Telephone Encounter - Meera Yun MA - 08/25/2024 4:17 PM EDT Message left for pt to call back for results. Meera Yun MA [facility]10-08-[facility] Telephone encounter Note* Telephone Encounter - Edna Umanzor APRN.CNP - 08/25/2024 4:06 PM EDT Please let patient know her lumbar spine xr shows disc space loss or narrowing of the disc space. Iwould recommend PT [facility]-07-[facility] Telephone encounter Note* Telephone Encounter - Mary Garza RN - 08/24/2024 10:05 AM EDT Patient calls to check on results of x-rays from last week. Aware that x-rays are still in process and will be contacted once received. Mary Garza RN [facility]10-07-2024 Miscellaneous Notes* Telephone Encounter - Mary Garza RN - 08/24/2024 10:05 AM EDT Patient calls to check on results of x-rays from last week. Aware that x-rays are still in process and will be contacted once received. Mary Garza RN [facility] History of Present illness Narrative* Rosey Chen RT(R) - 08/20/2024 11:40 AM EDT Radiology Service Progress Note PATIENT NAME: Prashant Sheffield DATE OF SERVICE: August 20, 2024 TIME: 11:33 AM PATIENT IDENTITY VERIFICATION COMPLETED USING TWO (2) IDENTIFIERS: Name and Date of confirmedby patient verbally. FALL SCREENING: Has the patient had 2 falls in the last year or 1 fall with injury or currently using an Ambulatory Assistive Device (Walker, Cane, Wheelchair, Crutches, etc.)? Yes, Patient High Riskfor Falls What interventions were put in place to prevent falls during this visit? Offered Assistance with Transfers/Clothing, Instructed Patient to Remain Seated (Not on Exam Table) Until Exam, and Increased Observations by Caregivers PATIENT GENDER DATA: Female. status: : No status: NO. PATIENT RELEVANT IMPLANT DATA REVIEWED: Yes PATIENT PRESENTS WITH AN IMPLANTABLE OR ATTACHED TIRE BUILDER OPERATOR: No RADIOLOGY DEPARTMENT: General X-ray: Exam(s) Completed: Spine X-Ray(s): Lumbar AP / LAT / L5-S1 / OBL Pelvis X-Ray: Pelvis with Hip Left PERIPHERAL IV DATA: Not applicable SIGNED BY: RT Heri(R) August 20, 2024 11:33 AM documented in this encounterK[facility]-2024 NoteHNO ID: [id number] Author: ROSEY CHEN RT(R) Service: ? Author Type: Telephone Clerk Type: Progress Notes Filed: 08/20/2024 12:01 Note Text: Radiology Service Progress Note PATIENT NAME: Prashant Sheffield DATE OF SERVICE: August 20, 2024 TIME: 11:33 AM PATIENT IDENTITY VERIFICATION COMPLETED USING TWO (2) IDENTIFIERS: Name and Date of confirmed by patient verbally. FALL SCREENING: Has the patient had 2 falls in the last year or 1 fall with injury or currently using an Ambulatory Assistive Device (Walker, Cane, Wheelchair, Crutches, etc.)? Yes, Patient High Risk for Falls What interventions were put in place to prevent falls during this visit? Offered Assistance with Transfers/Clothing, Instructed Patient to Remain Seated (Not on Exam Table) Until Exam, and Increased Observations by Caregivers PATIENT GENDER DATA: Female. status: : No status: NO. PATIENT RELEVANT IMPLANT DATA REVIEWED: Yes PATIENT PRESENTS WITH AN IMPLANTABLE OR ATTACHED TIRE BUILDER OPERATOR: No RADIOLOGY DEPARTMENT: General X-ray: Exam(s) Completed: Spine X-Ray(s): Lumbar AP / LAT / L5-S1 / OBL Pelvis X-Ray: Pelvis with Hip Left PERIPHERAL IV DATA: Not applicable SIGNED BY: RT Heri(R) August 20, 2024 11:33 [facility]10-03-2024 NoteHNO ID: [id number] Author: EDNA UMANZOR APRN.KNOCKDOWN MAN Service: ? Author Type: Nurse Practitioner Type: Progress Notes Filed: 08/20/2024 11:29 Note Text: Chief Complaint Patient presents with: Follow Up: Leg pain HPI Prashant Sheffield is a 74 year old female who presents here today for Above Complaints.. Patient presents for follow up for left leg pain. Patient reports no improvement since starting medication. Tylenol has decreased pain on occasion. Patient reports pain starts in the hip and extend the entire length of the leg. Pain improves with movement and worsens with prolonged sitting. Past medical history, appointments, medications, allergies reviewed. Previous Medical History PAST MEDICAL HISTORY Diagnosis Date Alcohol use 02/07/2016 1-2 drinks a day. 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, mild, with anxiety (HCC) 07/08/2024 Dry mouth 03/26/2016 Elevated hemoglobin A1c 12/01/2018 Essential hypertension 02/07/2016 Family history of colon cancer in mother 02/14/2016 Fibroid uterus 02/07/2016 Had one and never needed surgery Frequent falls 07/20/2021 Patient declines Physical Therapy as of 07/20/2021 GERD without esophagitis 02/07/2016 Hypertensive heart and chronic kidney disease with heart failure and stage 1 through stage 4 chronic kidney disease, or unspecified chronic kidney disease (HCC) 12/26/2023 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 Mixed hyperlipidemia 02/07/2016 Mobility impaired 07/25/2023 Osteopenia, senile 12/15/2019 DXA: 11/2019 Parkinson's disease (HCC) 02/07/[address] 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 Neuro feels may be anxiety related. No recurrence since (last episode was 06/2015) Previous Surgical History PAST SURGICAL HISTORY Procedure Laterality Date COLONOSCOPY 2006 COLONOSCOPY 02/20/2016 Dr. 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 STRESS ECG TREADMILL 12/23/2019 negative Family History FAMILY HISTORY Problem Relation Age of Onset Cancer Father 25 in groin area, Cervical Cancer Maternal Grandmother Colon Cancer Paternal Grandmother Diabetes Mother Hypertension Mother Patient Allergies ALLERGIES Allergen Reactions Betadine [Povidone-* Rash Buspar [Buspirone] Other: See Comments Caused anxiety and shaking: may of been serotonin syndrome with her neuro meds. Codeine Intolerance "crazy dreams" does not like to take it Current Medications Current Outpatient Medications on File Prior to Visit Medication Sig alendronate (FOSAMAX) 70 mg tablet Take 1 tablet by mouth one time a week. Take with a full glass of water, on an empty stomach; do NOT lie down for 30minutes. pramipexole (MIRAPEX) 0.5 mg tablet Take 1 tablet by mouth three times a day. Per Neuro rasagiline (AZILECT) 0.5 mg tab Take 1 tablet by mouth once daily. Per Neurology at [facility] simvastatin (ZOCOR) 20 mg tablet Take 1 tablet by mouth daily at bedtime. valsartan (DIOVAN) 160 mg tablet Take 1 tablet by mouth once daily. Cholecalciferol, Vitamin D3, 25 mcg (1,000 unit) cap Take 1 capsule by mouth once daily. baclofen 5 mg tablet Take 0.5 tablets by mouth two times a day. omeprazole (PRILOSEC) 40 mg capsule Take 1 capsule by mouth once daily. diphenhydrAMINE (BENADRYL) 25 mg capsule Take 25 mg by mouth once daily. 2 tablets 25 mg AM and 2 tablets 25 mg PM folic acid 1 mg tablet Take 1 tablet by mouth once daily. ferrous sulfate (SLOW FE) 137 mg (45 mg iron) TbER Take 1 tablet by mouth every other day. ascorbic acid, vitamin C, (VITAMIN C) 500 mg tablet Take 1 tablet by mouth every other day. benztropine (COGENTIN) 2 mg tablet Take 0.5 tablets by mouth two times a day. Per Neurology at [facility] Melatonin 5 mg cap Take 2 capsules by mouth daily at bedtime. furosemide (LASIX) 20 mg tablet Take 1 tablet by mouth once daily. (Patient taking differently: Take 20 mg by mouth as needed.) cyanocobalamin (VITAMIN B-12) 1,000 mcg tab Take 1 tablet by mouth once daily. citalopram hydrobromide (CELEXA) 10 mg tablet Take 1 tablet by mouth once daily. Take with 20 mg dose for total of 30mg daily, [facility] citalopram (CELEXA) (more content not included)...[facility] 08-20-2024 History of Present illness Narrative* Edna Umanzor APRN.KNOCKDOWN MAN - 08/20/2024 10:55 AM EDT Chief Complaint Patient presents with: Follow Up: Leg pain HPI Prashant Sheffield is a 74 year old female who presents here today for Above Complaints.. Patient presents for follow up for left leg pain. Patient reports no improvement since starting medication. Tylenol has decreased pain on occasion. Patient reports pain starts in the hip and extend the entire length of the leg. Pain improves with movement and worsens with prolonged sitting. Past medical history, appointments, medications, allergies reviewed. Previous Medical History PAST MEDICAL HISTORY Diagnosis Date Alcohol use 02/07/2016 1-2 drinks a day. 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, mild, with anxiety (HCC) 07/08/2024 Dry mouth 03/26/2016 Elevated hemoglobin A1c 12/01/2018 Essential hypertension 02/07/2016 Family history of colon cancer in mother 02/14/2016 Fibroid uterus 02/07/2016 Had one and never needed surgery Frequent falls 07/20/2021 Patient declines Physical Therapy as of 07/20/2021 GERD without esophagitis 02/07/2016 Hypertensive heart and chronic kidney disease with heart failure and stage 1 through stage 4 chronic kidney disease, or unspecified chronic kidney disease (HCC) 12/26/2023 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 Mixed hyperlipidemia 02/07/2016 Mobility impaired 07/25/2023 Osteopenia, senile 12/15/2019 DXA: 11/2019 Parkinson's disease (HCC) 02/07/[address] 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 Neuro feels may be anxiety related. No recurrence since (last episode was 06/2015) Previous Surgical History PAST SURGICAL HISTORY Procedure Laterality Date COLONOSCOPY 2005 COLONOSCOPY 02/20/2016 Dr. 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 STRESS ECG TREADMILL 12/23/2019 negative Family History FAMILY HISTORY Problem Relation Age of Onset Cancer Father 25 in groin area, Cervical Cancer Maternal Grandmother Colon Cancer Paternal Grandmother Diabetes Mother Hypertension Mother Patient Allergies ALLERGIES Allergen Reactions Betadine [Povidone-* Rash Buspar [Buspirone] Other: See Comments Caused anxiety and shaking: may of been serotonin syndrome with her neuro meds. Codeine Intolerance "crazy dreams" does not like to take it Current Medications Current Outpatient Medications on File Prior to Visit Medication Sig alendronate (FOSAMAX) 70 mg tablet Take 1 tablet by mouth one time a week. Take with a full glass of water, on an empty stomach; do NOT lie down for 30minutes. pramipexole (MIRAPEX) 0.5 mg tablet Take 1 tablet by mouth three times a day. Per Neuro rasagiline (AZILECT) 0.5 mg tab Take 1 tablet by mouth once daily. Per [facility]rology at [facility] simvastatin (ZOCOR) 20 mg tablet Take 1 tablet by mouth daily at bedtime. valsartan (DIOVAN) 160 mg tablet Take 1 tablet by mouth once daily. Cholecalciferol, Vitamin D3, 25 mcg (1,000 unit) cap Take 1 capsule by mouth once daily. baclofen 5 mg tablet Take 0.5 tablets by mouth two times a day. omeprazole (PRILOSEC) 40 mg capsule Take 1 capsule by mouth once daily. diphenhydrAMINE (BENADRYL) 25 mg capsule Take 25 mg by mouth once daily. 2 tablets 25 mg AM and 2 tablets 25 mg PM folic acid 1 mg tablet Take 1 tablet by mouth once daily. ferrous sulfate (SLOW FE) 137 mg (45 mg iron) TbER Take 1 tablet by mouth every other day. ascorbic acid, vitamin C, (VITAMIN C) 500 mg tablet Take 1 tablet by mouth every other day. benztropine (COGENTIN) 2 mg tablet Take 0.5 tablets by mouth two times a day. Per Neurology at [facility] Melatonin 5 mg cap Take 2 capsules by mouth daily at bedtime. furosemide (LASIX) 20 mg tablet Take 1 tablet by mouth once daily. (Patient taking differently: Take 20 mg by mouth as needed.) cyanocobalamin (VITAMIN B-12) 1,000 mcg tab Take 1 tablet by mouth once daily. citalopram hydrobromide (CELEXA) 10 mg tablet Take 1 tablet by mouth once daily. Take with 20 mg dose for total of 30mg daily, getting from Neurology at [facility] citalopram (CELEXA) 20 mg tablet Take 1 tablet by mouth daily at bedtime. Take with 10mg dose for total of 30mg daily. Per neurology at [facility] estradiol (ESTRACE) 0.01 % (0.1 mg/gram) vaginal cream Use 1 g vaginally twice a week. multivitamin tablet Take 1 tablet by mouth once daily. (Patient not taking: Reported on 07/08/2024) CALCIUM CARBONATE/VITAMIN D3 (CALCIUM 500 + D ORAL) Take by mouth. aspirin, enteric coated (ADULT LOW DOSE ASPIRIN) 81 mg EC tablet Take 1 tablet by mouth once daily. No current facility-administered medications on file prior to visit. Social History Social History Tobacco Use Smoking status: Never Smokeless tobacco: Never Vaping Use Vaping status: Never Used Substance Use Topics Alcohol use: Yes Comment: approximately 1-2 beers/wine daily Drug use: No Review of Symptoms REVIEW OF SYSTEMS SEE HPI EXAM: BP 131/73 Pulse 62 Resp 14 Wt 59.4 kg (131 lb) BMI 23.96 kg/m General Appearance: Well appearing, alert, in no acute distress, well-hydrated, well nourished.. Back:reflexes are 2+ and symmetric, motor and sensory appear to be normal for patient, pain with palpation of left buttock. Extremities: No deformities, edema, skin discoloration, clubbing or cyanosis. Good capillary refill. . Health Maintenance List Mammogram Screening due on 11/04/2021 Influenza Vaccine(1) due on 07/19/2024 Covid-19 Vaccine( season) due on 07/19/2024 RSV Vaccine(1 - Risk 60-74 years 1-dose series) due on 07/08/2025 Serum Creatinine due on 07/03/2025 Hemoglobin/Hematocrit due on 07/03/2025 Annual PCP Team Chronic Disease Visit due on 07/08/2025 BP Controlled (<130/80) due on 07/08/2025 Colorectal Cancer Screening due on 02/19/2026 Diabetes Screening due on 07/03/2027 Lipid Screening due on 07/03/2029 DTaP,Tdap,Td Vaccine(2 - Td or Tdap) due on 03/23/2034 Bone Density Screening Completed Advance Directive Discussion Completed Hepatitis C Screening Completed Shingrix Vaccine Completed Pneumococcal Vaccine: 65+ Completed ASSESSMENT/PLAN: 1. Left leg pain - ICD9: 729.5, ICD10: M79.605 (primary diagnosis) - XR LUMBAR PARS DEFECT 4V AP/LAT/BOTH OBL - XR HIP GENERAL 3V PELV/AP/LAT LEFT 2. Encounter for immunization - ICD9: V03.89, ICD10: Z23 - INFLUENZA VACCINE, PRSV FREE, AGE 65+ YR, HIGH DOSE, TRIVALENT (FLUZONE HIGH-DOSE) - [facility] COVID-19 VACCINE AGE 12+ YR (COMIRNATY) Edna Umanzor APRN.KNOCKDOWN MAN ' documented in this encounterK[facility]24 Telephone encounter Note * Telephone Encounter - Jaclyn Ramírez - 08/10/2024 8:46 AM EDT Prescription Refill Information The patient has been identified by name and date of : Yes Caregiver verified no other encounters exist for this prescription request: Yes Caregiver confirmed with patient/requestor that no other refills are due, in the near future, with this provider at this time: Yes The last office visit in the department: 07/08/24 Does the patient have a future office visit with this provider/department: Yes Requested Prescriptions Pending Prescriptions Disp Refills alendronate (FOSAMAX) 70 mg tablet 12 tablet 1 Sig: Take 1 tablet by mouth one time a week. Take with a full glass of water, on an empty stomach; do NOT lie down for 30minutes. Jaclyn Muniz August 10, 2024 8:46 AM [facility]09-23-2024 Miscellaneous Notes* Telephone Encounter - Jaclyn Ramírez - 08/10/2024 8:46 AM EDT Prescription Refill Information The patient has been identified by name and date of : Yes Caregiver verified no other encounters exist for this prescription request: Yes Caregiver confirmed with patient/requestor that no other refills are due, in the near future, with this provider at this time: Yes The last office visit in the department: 07/08/24 Does the patient have a future office visit with this provider/department: Yes Requested Prescriptions Pending Prescriptions Disp Refills alendronate (FOSAMAX) 70 mg tablet 12 tablet 1 Sig: Take 1 tablet by mouth one time a week. Take with a full glass of water, on an empty stomach; do NOT lie down for 30minutes. Jaclyn Muniz August 10, 2024 8:46 AM documented in this encounterK[facility]09-20-2024 Telephone encounter Note * Telephone Encounter - Patti Tomas MA - 08/07/2024 4:44 PM EDT Left detailed message for patient,. Letter taken to medical records. Patti Tomas MA [facility]09-20-2024 Miscellaneous Notes* Telephone Encounter - Patti Tomas MA - 08/07/2024 4:44 PM EDT Left detailed message for patient,. Letter taken to medical records. Patti Tomas MA * Telephone Encounter - Ez Solitario MD - 08/07/2024 4:33 PM EDT Letter ready * Telephone Encounter - Patti Tomas MA - 08/07/2024 3:35 PM EDT Letter given to provider to sign. Patti Tomas MA * Telephone Encounter - Ez Solitario MD - 08/07/2024 3:12 PM EDT Letter ready * Telephone Encounter - Deirdre Oliva RN - 08/07/2024 1:56 PM EDT Patient reports she received a letter today for jury duty, and has 5 days to return to them. Asking if pcp can write a letter excusing her for jury duty d/t Parkinsons. Please phone patient for berry picker: [phone] documented in this encounterK[facility]09-[facility]-2024 Telephone encounter Note * Telephone Encounter - Ez Solitario MD - 08/07/2024 4:33 PM EDT Letter ready [facility] Telephone encounter Note* Telephone Encounter - Patti Tomas MA - 08/07/2024 3:35 PM EDT Letter given to provider to sign. Patti Tomas MA [facility]-20-2024 Telephone encounter Note* Telephone Encounter - Ez Solitario MD - 08/07/2024 3:12 PM EDT Letter ready [facility] Telephone encounter Note* Telephone Encounter - Deirdre Oliva RN - 08/07/2024 1:56 PM EDT Patient reports she received a letter today for jury duty, and has 5 days to return to them. Asking if pcp can write a letter excusing her for jury duty d/t Parkinsons. Please phone patient for berry picker: [phone] [facility]09-10-2024 NoteHNO ID: [id number] Author: BERLIN URRUTIA LPN Service: ? Author Type: LICENSED NURSE Type: Progress Notes Filed: 07/28/2024 14:03 Note Text: Scan on 07/28/2024 1:26 PM by Provider, Jovany, PA-C: Consultation - Neurology [facility]09-10-2024 History of Present illness Narrative* Berlin Urrutia LPN - 07/28/2024 2:03 PM EDT Scan on 07/28/2024 1:26 PM by ProviderJovany PANuzhatC: Consultation - Neurology documented in this encounterK[facility]08-21-2024 Instructions* Patient Instructions* Ez Sloitario MD - 07/08/2024 2:08 PM EDT Please bring in copies of your power of personal injury attorney for health care and living will. If not on any Vit D then have her take 1000 international unit(s) 's a day. If she is getting it then try to have her get 2,000 international unit(s) 's of vit D a day. documented in this encounterCleveland [id number] History of Present illness Narrative* Ez Solitario MD - 07/08/2024 1:44 PM EDT Chief Complaint Patient presents with: F/U 6 months HPI Prashant Sheffield is a 74 year old female who presents here today for 6 month follow up. Patient with hx of HTN, Hyperlipidemia, elevated blood sugar, GERD, parkinson's disease with memoryloss, Anxiety with depression, alcohol use, osteoporosis as well as those reviewed and addressed below and in ROS. Patient has been getting left leg pain in the evening for a couple of months especially if siting for extended time. Patient even bought a new chair lift and still having pain. Tends to go up the left leg. Seems better and resolves if she gets up and walks. Denies any knee pain. Otherwise feels she has been doing well. Past medical history, appointments, medications, allergies reviewed. Previous Medical History PAST MEDICAL HISTORY 02/07/2016: Alcohol use Comment: 1-2 drinks a day. 02/11/2023: Anemia 02/07/2016: Anxiety and depression 06/09/2019: Atrophic vaginitis 09/25/2023: Cecal volvulus (HCC) Comment: s/p resection 07/202303/26/2016: Dry mouth 12/01/2018: Elevated hemoglobin A1c 02/07/2016: Essential hypertension 02/14/2016: Family history of colon cancer in mother 02/07/2016: Fibroid uterus Comment: Had one and never needed surgery 07/20/2021: Frequent falls Comment: Patient declines Physical Therapy as of 07/20/2021 02/07/2016: GERD without esophagitis 07/11/2017: Lentiginous junctional nevus of back Comment: Excised 06/201702/12/2023: Living will in place Comment: DPA: 02/07/2022: Low serum vitamin B12 06/01/2019: Memory loss Comment: Neuro feels this is Parkinson's related. 02/07/2016: Mixed hyperlipidemia 12/15/2019: Osteopenia, senile Comment: DXA: 11/201902/07/2016: Parkinson's disease Comment: Seeing Dr. Man in [facility] 01/16/2021: Stage 3a chronic kidney disease (HCC) 12/06/2016: Transient global amnesia Comment: Had another episode 07/2017. Neuro feels may be anxiety related. No recurrence since (last episode was 06/2015) Previous Surgical History PAST SURGICAL HISTORY 2006: COLONOSCOPY 02/20/2016: COLONOSCOPY Comment: Dr. 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 12/23/2019: STRESS ECG TREADMILL Comment: negative Family History FAMILY HISTORY Problem Relation Age of Onset Cancer Father 25 in groin area, Cervical Cancer Maternal Grandmother Colon Cancer Paternal Grandmother Diabetes Mother Hypertension Mother Patient Allergies ALLERGIES Allergen Reactions Betadine [Povidone-* Rash Buspar [Buspirone] Other: See Comments Caused anxiety and shaking: may of been serotonin syndrome with her neuro meds. Codeine Intolerance "crazy dreams" does not like to take it Current Medications Current Outpatient Medications on File Prior to Visit Medication Sig omeprazole (PRILOSEC) 40 mg capsule Take 1 capsule by mouth once daily. pramipexole (MIRAPEX) 0.25 mg tablet Take 1 tablet by mouth three times a day. Per Neuro alendronate (FOSAMAX) 70 mg tablet Take 1 tablet by mouth one time a week. Take with a full glass of water, on an empty stomach; do NOT lie down for 30minutes. diphenhydrAMINE (BENADRYL) 25 mg capsule Take 25 mg by mouth once daily. 2 tablets 25 mg AM and 2 tablets 25 mg PM valsartan (DIOVAN) 160 mg tablet Take 1 tablet by mouth once daily. simvastatin (ZOCOR) 20 mg tablet Take 1 tablet by mouth daily at bedtime. folic acid 1 mg tablet Take 1 tablet by mouth once daily. ferrous sulfate (SLOW FE) 137 mg (45 mg iron) TbER Take 1 tablet by mouth every other day. ascorbic acid, vitamin C, (VITAMIN C) 500 mg tablet Take 1 tablet by mouth every other day. benztropine (COGENTIN) 2 mg tablet Take 0.5 tablets by mouth two times a day. Per [facility] at [facility] Melatonin 5 mg cap Take 2 capsules by mouth daily at bedtime. cyanocobalamin (VITAMIN B-12) 1,000 mcg tab Take 1 tablet by mouth once daily. citalopram hydrobromide (CELEXA) 10 mg tablet Take 1 tablet by mouth once daily. Take with 20 mg dose for total of 30mg daily, getting from Neurology at [facility] citalopram (CELEXA) 20 mg tablet Take 1 tablet by mouth daily at bedtime. Take with 10mg dose for total of 30mg daily. Per neurology at [facility] rasagiline (AZILECT) 1 mg tab Take 1 tablet by mouth once daily. Per Neurology at [facility] estradiol (ESTRACE) 0.01 % (0.1 mg/gram) vaginal cream Use 1 g vaginally twice a week. CALCIUM CARBONATE/VITAMIN D3 (CALCIUM 500 + D ORAL) Take by mouth. aspirin, enteric coated (ADULT LOW DOSE ASPIRIN) 81 mg EC tablet Take 1 tablet by mouth once daily. furosemide (LASIX) 20 mg tablet Take 1 tablet by mouth once daily. (Patient taking differently: Take 20 mg by mouth as needed.) multivitamin tablet Take 1 tablet by mouth once daily. (Patient not taking: Reported on 07/08/2024) Current Facility-Administered Medications on File Prior to Visit Medication perflutren lipid microspheres 1.3 mL in NaCl (PF) 0.9% 10 mL injection (DEFINITY) sodium chloride 0.9 % (flush) 10 mL (BD POSIFLUSH) Social History Social History Tobacco Use Smoking status: Never Smokeless tobacco: Never Vaping Use Vaping status: Never Used Substance Use Topics Alcohol use: Yes Comment: approximately 1-2 beers/wine daily Drug use: No Review of Symptoms REVIEW OF SYSTEMS GENERAL: No weight loss, malaise or fevers RESPIRATORY: Negative for cough, hemoptysis, wheezing, COPD, dyspnea or shortness of breath CARDIOVASCULAR: Negative for chest pain, increased leg swelling, hypertension, CHF or palpitations GI: No nausea, vomiting, or diarrhea and No heartburn or reflux symptoms ENDOCRINE: Negative for cold or heat intolerance, polyuria, polydipsia and goiter NEURO: No history of headaches, syncope, paralysis, seizures or significant tremors EXAM: BP 150/80 (BP Site: Right Arm, BP Position: Sitting, BP Cuff Size: Regular Adult) Pulse 62 Resp16 Wt 58.1 kg (128 lb) BMI 23.41 kg/m BP 150/80 (BP Site: Right Arm, BP Position: Sitting, BP Cuff Size: Regular Adult) Pulse 62 Resp16 Wt 58.1 kg (128 lb) BMI 23.41 kg/m Last 5 Encounter Wt Readings: Date: Wt: 07/08/2024 58.1 kg (128 lb) 12/26/2023 57.2 kg (126 lb) 10/07/2023 55.8 kg (123 lb) 09/25/2023 56.2 kg (124 lb) 06/07/2023 62.6 kg (138 lb) General Appearance: Well appearing, alert, in no acute distress, well-hydrated, well nourished.. Neck: Supple, no adenopathy; thyroid symmetric, normal size, no bruits. Lungs: Lungs clear to auscultation. No wheezing, rhonchi, rales.. Heart: RRR without murmur, gallop, or rubs. No ectopy. Abdomen: Normal abdominal exam, Abdomen soft, non-tender. Bowel sounds normal. No masses, organomegaly. Extremities: No deformities, edema, skin discoloration. Good capillary refill. . Musculoskeletal: Spine range of motion normal. Muscular strength intact, No joint swelling, deformity, or tenderness. Peripheral Pulses: Normal. Neurologic: Gait with shuffling.. Reflexes normal and symmetric. Sensation grossly intact.. Health Maintenance List RSV Vaccine(1 - 1-dose 60+ series) Never done Mammogram Screening due on 11/04/2021 BP Controlled (<130/80) due on 01/16/2022 Covid-19 Vaccine( - season) due on 01/24/2024 Influenza Vaccine(1) due on 07/19/2024 Annual PCP Team Chronic Disease Visit due on 12/26/2024 Serum Creatinine due on 07/03/2025 Hemoglobin/Hematocrit due on 07/03/2025 Colorectal Cancer Screening due on 02/19/2026 Diabetes Screening due on 07/03/2027 Lipid Screening due on 07/03/2029 DTaP,Tdap,Td Vaccine(2 - Td or Tdap) due on 03/23/2034 Bone Density Screening Completed Advance Directive Discussion Completed Hepatitis C Screening Completed Shingrix Vaccine Completed Pneumococcal Vaccine: 65+ Completed Data reviewed Latest Ref Rng 10/03/2023 12/11/2023 01/24/2024 07/03/2024 WBC 3.70 - 11.00 k/uL 5.44 7.43 RBC 3.90 - 5.20 m/uL 3.95 3.80 (L) Hemoglobin 11.5 - 15.5 g/dL 11.0 (L) 10.7 (L) Hematocrit 36.0 - 46.0 % 35.7 (L) 35.1 (L) MCV 80.0 - 100.0 fL 90.4 92.4 MCH 26.0 - 34.0 pg 27.8 28.2 MCHC 30.5 - 36.0 g/dL 30.8 30.5 RDW-CV 11.5 - 15.0 % 13.4 13.3 Platelet Count 150 - 400 k/uL 228 203 MPV 9.0 - 12.7 fL 11.8 12.2 Neut% % 50.2 56.5 Abs Neut (ANC) 1.45 - 7.50 k/uL 2.73 4.20 Lymph% % 36.4 30.6 Abs Lymph 1.00 - 4.00 k/uL 1.98 2.27 [place]% % 9.2 8.5 Abs [place] <0.87 k/uL 0.50 0.63 Eosin% % 3.3 3.6 Abs Eosin <0.46 k/uL 0.18 0.27 Baso% % 0.7 0.5 Abs Baso <0.11 k/uL 0.04 0.04 Immature Gran % % 0.2 0.3 IMMATURE GRANS (ABS) <0.10 k/uL <0.03 <0.03 NRBC /100 WBC 0.0 0.0 Absolute nRBC <0.01 k/uL <0.01 <0.01 DTYPE Auto Auto Protein, Total 6.3 - 8.0 g/dL 6.5 Albumin 3.9 - 4.9 g/dL 4.3 Calcium 8.5 - 10.2 mg/dL 9.7 Bilirubin, Total 0.2 - 1.3 mg/dL 0.2 Alkaline Phosphatase 34 - 123 U/L 62 AST 13 - 35 U/L 22 ALT 7 - 38 U/L 24 Glucose 74 - 99 mg/dL 91 BUN 7 - 21 mg/dL 22 (H) Creatinine 0.58 - 0.96 mg/dL 1.12 (H) Sodium 136 - 144 mmol/L 137 Potassium 3.7 - 5.1 mmol/L 4.4 Chloride 98 - 107 mmol/L 101 CO2 22 - 30 mmol/L 26 Anion Gap 8 - 15 mmol/L 10 eGFR >=60 mL/min/1.73m 52 (L) Total Cholesterol, Nonfasting <200 mg/dL 132 135 Triglycerides, Nonfasting <150 mg/dL 54 68 HDL Cholesterol, Nonfasting >39 mg/dL 55 58 LDL Cholesterol, Nonfasting <100 mg/dL 66 63 Non HDL Cholesterol, Nonfasting <130 mg/dL 77 77 VLDL Cholesterol, Nonfasting <30 mg/dL 11 14 Total Chol/HDL Ratio, Nonfasting <5.10 mg/dL 2.40 2.33 LDL/HDL Ratio, Nonfasting <2.54 mg/dL 1.20 1.09 Iron 41 - 186 ug/dL 18 (L) 65 57 TIBC 232 - 386 ug/dL 265 267 279 Transferrin Saturation 15.0 - 57.0 % 6.8 (L) 24.3 20.4 Hemoglobin A1C 4.3 - 5.6 % 5.7 (H) 5.8 (H) Estimated Average Glucose mg/dL 117 120 Vitamin B12 232 - 1,245 pg/mL 323 Ferritin 14.7 - 205.1 ng/mL 79.5 136.0 Vitamin D 25 Hydroxy 31.0 - 80.0 ng/mL 26.6 (L) Latest Ref Rn 12/11/2023 Protein, Total 6.3 - 8.0 g/dL 7.1 Albumin 3.9 - 4.9 g/dL 4.3 Calcium 8.5 - 10.2 mg/dL 10.1 Bilirubin, Total 0.2 - 1.3 mg/dL 0.2 Alkaline Phosphatase 34 - 123 U/L 62 AST 13 - 35 U/L 27 ALT 7 - 38 U/L 49 (H) Glucose 74 - 99 mg/dL 84 BUN 7 - 21 mg/dL 19 Creatinine 0.58 - 0.96 mg/dL 1.10 (H) Sodium 136 - 144 mmol/L 138 Potassium 3.7 - 5.1 mmol/L 4.2 Chloride 97 - 105 mmol/L 101 CO2 22 - 30 mmol/L 26 Anion Gap 9 - 18 mmol/L 11 eGFR >=60 mL/min/1.73m 53 (L) A/P ASSESSMENT/PLAN: 1. Elevated hemoglobin A1c - ICD9: 790.29, ICD10: R73.09 (primary diagnosis) - stable - encouraged dietary changes. 2. Mixed hyperlipidemia - ICD9: 272.2, ICD10: E78.2 - Controlled - Continue current medications - Counseled on healthy diet and regular exercise - SIMVASTATIN 20 MG TABLET 3. Essential hypertension - ICD9: 401.9, ICD10: I10 - Controlled - Continue current medications - Recommend home blood pressure monitoring, to bring results to next visit - Encouraged sodium restriction, DASH or Mediterranean diet - Recommend regular aerobic exercise - VALSARTAN 160 MG TABLET 4. GERD without esophagitis - ICD9: 530.81, ICD10: K21.9 - Continue treatment with Prilosec 40 mg QD 5. Stage 3a chronic kidney disease (HCC) - ICD9: 585.3, ICD10: N18.31 - eGFR: 52 Stable - Counseled on avoiding NSAIDs, adequate hydration - ACEi/ARB prescribed: Yes 6. Anxiety and depression - ICD9: 300.00, 311, ICD10: F41.9, F32.A - stable with current Tx. 7. Anemia, unspecified type - ICD9: 285.9, ICD10: D64.9 - stable no changes. 8. Parkinson's disease, unspecified whether dyskinesia present, unspecified whether manifestations fluctuate (HCC) - ICD9: 332.0, ICD10: G20.A1 - on meds and managed per neuro 9. Memory loss - ICD9: 780.93, ICD10: R41.3 - neuro managing and feels this is related to her parkinson's 10. Low serum vitamin B12 - ICD9: 266.2, ICD10: E53.8 - con replacement 11. Advance directive discussed with patient - ICD9: V65.49, ICD10: Z71.89 - needs to bring in copies. 12. Muscle spasm of left lower extremity - ICD9: 728.85, ICD10: M62.838 Suspect the pain in th left leg is muscular. Since worse ar rest and better with movement. Her LE pulses were ok. Will try - BACLOFEN 5 MG TABLET at 1/2 a tb BID. 13. Iron deficiency anemia, unspecified iron deficiency anemia type - ICD9: 280.9, ICD10: D50.9 - stable on recent labs 15. Dementia in other diseases classified elsewhere, mild, with anxiety (HCC) - ICD9: 294.11, ICD10: F02.A4 - stable and related to her Parkinson's, managed per Neuro. 16. 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 valsartan (DIOVAN) 160 mg tablet 90 tablet 1 Sig: Take 1 tablet by mouth once daily. Cholecalciferol, Vitamin D3, 25 mcg (1,000 unit) cap Sig: Take 1 capsule by mouth once daily. baclofen 5 mg tablet 45 tablet 1 Sig: Take 0.5 tablets by mouth two times a day. F/u in 4-5 weeks for left leg pain. F/u 6 months extensive check CMP, Lipid, UA, A1c, B12, Mg, CBC and Iron prior Ez Solitario MD documented in this encounterK[facility]07-29-2024 Telephone encounter Note * Telephone Encounter - Jaclyn Ramírez - 06/15/2024 2:08 PM EDT Prescription Refill Information The patient has been identified by name and date of : Yes Caregiver verified no other encounters exist for this prescription request: Yes Caregiver confirmed with patient/requestor that no other refills are due, in the near future, with this provider at this time: Yes The last office visit in the department: 12/26/23 Does the patient have a future office visit with this provider/department: Yes Requested Prescriptions Pending Prescriptions Disp Refills omeprazole (PRILOSEC) 40 mg capsule 90 capsule 1 Sig: Take 1 capsule by mouth once daily. Jaclyn Muniz June 15, 2024 2:08 PM [facility]07-29-2024 Miscellaneous Notes* Telephone Encounter - Jaclyn Ramírez - 06/15/2024 2:08 PM EDT Prescription Refill Information The patient has been identified by name and date of : Yes Caregiver verified no other encounters exist for this prescription request: Yes Caregiver confirmed with patient/requestor that no other refills are due, in the near future, with this provider at this time: Yes The last office visit in the department: 12/26/23 Does the patient have a future office visit with this provider/department: Yes Requested Prescriptions Pending Prescriptions Disp Refills omeprazole (PRILOSEC) 40 mg capsule 90 capsule 1 Sig: Take 1 capsule by mouth once daily. Jaclyn Muniz June 15, 2024 2:08 PM documented in this encounterK[facility]06-11-2024 History of Present illness Narrative* Madeline Johns LPN - 04/28/2024 5:58 PM EDT Scan on 04/28/2024 1:38 PM by Provider, CATHERINE Manzo: Consultation - Neurology documented in this encounterK[facility]04-01-2024 Miscellaneous Notes* Telephone Encounter - Louise Pemberton RN - 02/17/2024 9:27 AM EDT Patient has been identified by name and date of : Patient phones for refill(s): Requested Prescriptions Pending Prescriptions Disp Refills alendronate (FOSAMAX) 70 mg tablet 12 tablet 1 Sig: Take 1 tablet by mouth one time a week. Take with a full glass of water, on an empty stomach; do NOT lie down for 30minutes. Date of last office visit in primary care: 12/26/2023 Date of next office visit in primary care: 07/08/2024 Please advise. Thank you. Louise Pemberton RN. documented in this encounterK[facility]03-11-2024 Miscellaneous Notes* Telephone Encounter - Allie Chung MA - 01/27/2024 8:34 AM EDT Pt notified and verbalized understanding Allie Chung MA * Telephone Encounter - Edna Umanzor APRN.CNP - 01/27/2024 8:30 AM EDT Please let patient know their labs are normal. documented in this encounterKet[facility]02-08-2024 Instructions* Patient Instructions* Edna Umanzor APRN.CNP - 12/26/2023 1:55 PM EST Screening schedule The following prevention plan is recommended: RSV Vaccine(1 - 1-dose 60+ series) Never done Mammogram Screening due on 11/04/2021 BP Controlled (<130/80) due on 01/16/2022 Advance Directive Discussion due on 11/18/2023 WHAT YOU CAN DO TO PREVENT FALLS Many falls can be prevented. By making some changes, you can lower your chances of falling. Four things YOU can do to prevent falls for you* and your caregiver 1. Begin a regular exercise program Exercise is one of the most important ways to lower your chances of falling. It makes you stronger and helps you feel better. Exercises that improve balance and coordination (like Dk Chi) are the most helpful. Lack of exercise leads to weakness and increases your chances of falling. Ask your doctor or health care provider about the best type of exercise program for you. 2. Have your health care provider review your medicines Have your doctor or pharmacist review all the medicines you take, even [id number] medicines. As you get older, the way medicines work in your body can change. Some medicines, or combinations of medicines, can make you sleepy or dizzy andcan cause you to fall. 3. Have your vision checked Have your eyes checked by an eye doctor at least once a year. You may be wearing the wrong glasses or have a condition like glaucoma or cataracts that limits your vision. Poor vision can increase your chances of falling. 4. Make your home safer About half of all falls happen at home. To make your home safer: Remove things you can trip over (like papers, books, clothes, and shoes) from stairs and places where you walk. Remove small throw rugs or use double-sided tape to keep the rugs from slipping. Keep items you use often in cabinets you can reach easily without using a step stool. Have grab bars put in next to your toilet and in the tub or shower. Use non-slip mats in the bathtub and on shower floors. Improve the lighting in your home. As you get older, you need brighter lights to see well. Hang light-weight curtains or shades to reduce glare. Have handrails and lights put in on all staircases. Wear shoes both inside and outside the house. Avoid going barefoot or wearing slippers. For more information, contact: Centers for Disease Control and Prevention www.cdc.gov/injury * This information may not apply if you have certain medical conditions. documented in [facility] History of Present illness Narrative* Edna Umanzor APRN.CNP - 12/26/2023 1:52 PM EST Prashant Sheffield is a 73 year old female here for a Medicare wellness visit. Medicare Health Risk Assessment General Health Good Exercise: Minutes/Day 30 Exercise: Days/Week daily Alcohol: Daily Use occasional Alcohol: Drinks/Day 1 Alcohol: 6 or more drinks No Feel off balance Occasional, hx falls Concerns: Teeth/Dentures Bottom denture loose Concerns: Sexual function Troubled by feelings No Frequency: Eating healthy diet Yes ADLs requiring help No Safety precautions in home/vehicle Yes Smoke, vape, chews tobacco No Difficulty hearing No Difficulty seeing No Current Providers Specialists: I have reviewed specialist-related care of the patient in the medical record. Current care team: Patient Care Team: Ez Solitario MD as PCP - General (Family Medicine) Medical/Family history review Reviewed and updated problem list, medical/surgical/family/social history, medications, and allergies. Opioid use review Opioid Medications (last 90 days) Some values may be hidden. Unless noted otherwise, only the newest values recorded on each date aredisplayed. Opioid Medications No data to display. Depression screening Depression Screening PHQ-2 Score PHQ-9 Score LEIGHTON-2 Total Score LEIGHTON-7 Total Score 09/13/2023 2 12 6 16 Depression screening tool completed and reviewed. Based on score and interview, patient is not at risk for depression. Screening tool discussed with patient, and I recommended no further interventionat this time. Functional Observation Was the patient's Timed Up & Go test unsteady or ? 12 seconds? No Advance Care Planning Patient did not wish or was not able to name a surrogate decision maker or provide an advance care plan Measurements BP 142/66 Pulse 68 Resp 14 Wt 126 lb (57.2kg) Additional screenings: No results found. Assessment/Plan Medicare annual wellness visit, subsequent (Z00.00) - Counseled on healthy diet and regular exercise - Fall avoidance information provided - Personalized prevention plan provided Chief Complaint Patient presents with: Medicare Wellness Exam HPI Prashant Sheffield is a 73 year old female who presents here today for Above Complaints.. Patient presents for annual wellness exam. Patient reports extremely dry patches to back of hands and would like recommendations to treat this. Past medical history, appointments, medications, allergies reviewed. Previous Medical History PAST MEDICAL HISTORY Diagnosis Date Alcohol use 02/07/2016 1-2 drinks a day. 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 Mixed hyperlipidemia 02/07/2016 Osteopenia, senile 12/15/2019 DXA: 11/2019 Parkinson's disease 02/07/[address] 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 Neuro feels may be anxiety related. No recurrence since (last episode was 06/2015) Previous Surgical History PAST SURGICAL HISTORY Procedure Laterality Date COLONOSCOPY 2005 COLONOSCOPY 02/20/2016 Dr. 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 STRESS ECG TREADMILL 12/23/2019 negative Family History FAMILY HISTORY Problem Relation Age of Onset Cancer Father 25 in groin area, Cervical Cancer Maternal Grandmother Colon Cancer Paternal Grandmother Diabetes Mother Hypertension Mother Patient Allergies ALLERGIES Allergen Reactions Betadine [Povidone-* Rash Buspar [Buspirone] Other: See Comments Caused anxiety and shaking: may of been serotonin syndrome with her neuro meds. Codeine Intolerance "crazy dreams" does not like to take it Current Medications Current Outpatient Medications on File Prior to Visit Medication Sig diphenhydrAMINE (BENADRYL) 25 mg capsule Take 25 mg by mouth every 6 hours as needed. omeprazole (PRILOSEC) 40 mg capsule Take 1 capsule by mouth once daily. folic acid 1 mg tablet Take 1 tablet by mouth once daily. ferrous sulfate (SLOW FE) 137 mg (45 mg iron) TbER Take 1 tablet by mouth every other day. ascorbic acid, vitamin C, (VITAMIN C) 500 mg tablet Take 1 tablet by mouth every other day. pramipexole (MIRAPEX) 0.25 mg tablet Take 0.5 tablets by mouth three times a day. Per Neuro benztropine (COGENTIN) 2 mg tablet Take 0.5 tablets by mouth two times a day. Per Neurology at [facility] Melatonin 5 mg cap Take 2 capsules by mouth daily at bedtime. valsartan (DIOVAN) 160 mg tablet Take 1 tablet by mouth once daily. furosemide (LASIX) 20 mg tablet Take 1 tablet by mouth once daily. (Patient taking differently: Take 20 mg by mouth as needed.) alendronate (FOSAMAX) 70 mg tablet Take 1 tablet by mouth one time a week. Take with a full glass of water, on an empty stomach; do NOT lie down for 30minutes. simvastatin (ZOCOR) 20 mg tablet Take 1 tablet by mouth daily at bedtime. cyanocobalamin (VITAMIN B-12) 1,000 mcg tab Take 1 tablet by mouth once daily. citalopram hydrobromide (CELEXA) 10 mg tablet Take 1 tablet by mouth once daily. Take with 20 mg dose for total of 30mg daily, getting from Neurology at [facility] citalopram (CELEXA) 20 mg tablet Take 1 tablet by mouth daily at bedtime. Take with 10mg dose for total of 30mg daily. Per neurology at [facility] rasagiline (AZILECT) 1 mg tab Take 1 tablet by mouth once daily. Per Neurology at [facility] estradiol (ESTRACE) 0.01 % (0.1 mg/gram) vaginal cream Use 1 g vaginally twice a week. multivitamin tablet Take 1 tablet by mouth once daily. CALCIUM CARBONATE/VITAMIN D3 (CALCIUM 500 + D ORAL) Take by mouth. aspirin, enteric coated (ADULT LOW DOSE ASPIRIN) 81 mg EC tablet Take 1 tablet by mouth once daily. Current Facility-Administered Medications on File Prior to Visit Medication perflutren lipid microspheres 1.3 mL in NaCl (PF) 0.9% 10 mL injection (DEFINITY) sodium chloride 0.9 % (flush) 10 mL (BD POSIFLUSH) Social History Social History Tobacco Use Smoking status: Never Smokeless tobacco: Never Vaping Use Vaping Use: Never used Substance Use Topics Alcohol use: Yes Comment: approximately 1-2 beers/wine daily Drug use: No Review of Symptoms REVIEW OF SYSTEMS SEE HPI EXAM: BP 142/66 Pulse 68 Resp 14 Wt 57.2 kg (126 lb) BMI 23.05 kg/m General Appearance: Well appearing, alert, in no acute distress, well-hydrated, well nourished.. Lungs: Lungs clear to auscultation. No wheezing, rhonchi, rales.. Heart: RRR without murmur, gallop, or rubs. No ectopy. Abdomen: Normal abdominal exam, Abdomen soft, non-tender. Bowel sounds normal. No masses, organomegaly Musculoskeletal: No joint swelling, deformity, or tenderness. Peripheral Pulses: Normal. Neurologic: Positive findings: resting tremor, tic tongue darting. Health Maintenance List RSV Vaccine(1 - 1-dose 60+ series) Never done Mammogram Screening due on 11/04/2021 BP Controlled (<130/80) due on 01/16/2022 Advance Directive Discussion due on 11/18/2023 DTaP,Tdap,Td Vaccine(1 - Tdap) due on 02/13/2024 Shingrix Vaccine(1 of 2) due on 02/13/2024 Annual PCP Team Chronic Disease Visit due on 09/25/2024 Serum Creatinine due on 12/11/2024 Hemoglobin/Hematocrit due on 12/11/2024 Colorectal Cancer Screening due on 02/19/2026 Diabetes Screening due on 12/11/2026 Lipid Screening due on 12/11/2028 Bone Density Screening Completed Influenza Vaccine Completed Hepatitis C Screening Completed Covid-19 Vaccine Completed Pneumococcal Vaccine: 65+ Completed Data reviewed Component Latest Ref Rng & Units 12/11/2023 WBC 3.70 - 11.00 k/uL 6.61 RBC 3.90 - 5.20 m/uL 3.94 Hemoglobin 11.5 - 15.5 g/dL 11.0 (L) Hematocrit 36.0 - 46.0 % 36.0 MCV 80.0 - 100.0 fL 91.4 MCH 26.0 - 34.0 pg 27.9 MCHC 30.5 - 36.0 g/dL 30.6 RDW-CV 11.5 - 15.0 % 12.9 Platelet Count 150 - 400 k/uL 209 MPV 9.0 - 12.7 fL 12.0 Neut% % 60.5 Abs Neut (ANC) 1.45 - 7.50 k/uL 4.00 Lymph% % 28.3 Abs Lymph 1.00 - 4.00 k/uL 1.87 [place]% % 6.8 Abs [place] <0.87 k/uL 0.45 Eosin% % 3.3 Abs Eosin <0.46 k/uL 0.22 Baso% % 0.9 Abs Baso <0.11 k/uL 0.06 Immature Gran % % 0.2 IMMATURE GRANS (ABS) <0.10 k/uL <0.03 NRBC /100 WBC 0.0 Absolute nRBC <0.01 k/uL <0.01 DTYPE Auto Protein, Total 6.3 - 8.0 g/dL 7.1 Albumin 3.9 - 4.9 g/dL 4.3 Calcium 8.5 - 10.2 mg/dL 10.1 Bilirubin, Total 0.2 - 1.3 mg/dL 0.2 Alkaline Phosphatase 34 - 123 U/L 62 AST 13 - 35 U/L 27 ALT 7 - 38 U/L 49 (H) Glucose 74 - 99 mg/dL 84 BUN 7 - 21 mg/dL 19 Creatinine 0.58 - 0.96 mg/dL 1.10 (H) Sodium 136 - 144 mmol/L 138 Potassium 3.7 - 5.1 mmol/L 4.2 Chloride 97 - 105 mmol/L 101 CO2 22 - 30 mmol/L 26 Anion Gap 9 - 18 mmol/L 11 eGFR >=60 mL/min/1.73m 53 (L) Total Cholesterol, Nonfasting <200 mg/dL 132 Triglycerides, Nonfasting <150 mg/dL 54 HDL Cholesterol, Nonfasting >39 mg/dL 55 LDL Cholesterol, Nonfasting <100 mg/dL 66 Non HDL Cholesterol, Nonfasting <130 mg/dL 77 VLDL Cholesterol, Nonfasting <30 mg/dL 11 Total Chol/HDL Ratio, Nonfasting <5.10 mg/dL 2.40 LDL/HDL Ratio, Nonfasting <2.54 mg/dL 1.20 Iron 41 - 186 ug/dL 66 TIBC 232 - 386 ug/dL 264 Transferrin Saturation 15.0 - 57.0 % 25.0 Hemoglobin A1C 4.3 - 5.6 % 5.7 (H) Estimated Average Glucose mg/dL 117 Folate >4.7 ng/mL >20.0 Ferritin 14.7 - 205.1 ng/mL 69.4 ASSESSMENT/PLAN: 1. Medicare annual wellness visit, subsequent - ICD9: V70.0, ICD10: Z00.00 (primary diagnosis) - Counseled on healthy diet and regular exercise - Calcium intake with supplements or by diet of 1000 mg/day for under 50, 1200- 1500 mg/day for 50+ - Discussed need and benefit for weight loss. BMI 23.05 kg/(m^2) - Counseled patient on limiting alcohol intake to 1 drink per day - Depression screening tool completed and reviewed with patient. Based on score and interview, patient is at risk for depression and recommended no further intervention at this time. - Follow up for annual exam in one year 2. Iron deficiency anemia, unspecified iron deficiency anemia type - ICD9: 280.9, ICD10: D50.9 - FERRITIN BLD - IRON + TIBC - IRON + TIBC - FERRITIN BLD - CBC + DIFF 3. Parkinson's disease without fluctuating manifestations, unspecified whether dyskinesia present -ICD9: 332.0, ICD10: G20.A1 -Follows with neurology 4. Stage 3a chronic kidney disease (HCC) - ICD9: 585.3, ICD10: N18.31 - eGFR: 53 Stable - Counseled on avoiding NSAIDs, adequate hydration - Counseled on low sodium diet - COMP METABOLIC PANEL 5. Anxiety and depression - ICD9: 300.00, 311, ICD10: F41.9, F32.A -Continue celexa 6. Essential hypertension - ICD9: 401.9, ICD10: I10 - Controlled - Continue current medications - Recommend home blood pressure monitoring, to bring results to next visit - Encouraged sodium restriction, DASH or Mediterranean diet - Recommend regular aerobic exercise - Discussed need for and benefit of weight loss. BMI 23.05 kg/(m^2) - VALSARTAN 160 MG TABLET 7. Mixed hyperlipidemia - ICD9: 272.2, ICD10: E78.2 - Controlled - Continue current medications - Counseled on healthy diet and regular exercise - Discussed need for and benefit of weight loss. BMI 23.05 kg/(m^2) - SIMVASTATIN 20 MG TABLET - LIPID PANEL, NONFASTING 8. GERD without esophagitis - ICD9: 530.81, ICD10: K21.9 - Discussed lifestyle modifications including losing weight, limiting caffeine, no meals three hours before sleep, and head of bed elevation - Continue treatment with Pepcid 20 mg QD 9. Advance directive discussed with patient - ICD9: V65.49, ICD10: Z71.89 10. Medication management - ICD9: V58.69, ICD10: Z79.899 - CBC + DIFF 11. S/P right hemicolectomy - ICD9: V45.89, ICD10: Z90.49 -Recovering well 12. Elevated hemoglobin A1c - ICD9: 790.29, ICD10: R73.09 - HGB A1C Edna Umanzor, RECONSIGNMENT CLERK.KNOCKDOWN MAN documented in this [facility]23 Telephone encounter Note * Telephone Encounter - Haleigh Capone - 11/05/2023 10:37 AM EST Patient called to cancel procedure with Dr. Prince and did not wish to reschedule at this time [facility] Miscellaneous Notes* Telephone Encounter - Haleigh Capone - 11/05/2023 10:37 AM EST Patient called to cancel procedure with Dr. Prince and did not wish to reschedule at this time [facility] Resident * Telephone Encounter - Haleigh Capone - 10/07/2023 3:55 PM EST 11/28/2023 COLON/EGD [facility]23 Telephone encounter Note * Telephone Encounter - Haleigh Capone - 10/07/2023 3:55 PM EST 11/28/2023 COLON[facility]EGD [facility] History of Present illness Narrative* Daren Prince MD - 10/07/2023 3:52 PM EST HISTORY AND PHYSICAL Prashant Sheffield 1950 REFERRING PHYSICIAN: Ez Solitario MD CHIEF COMPLAINT: Consult (Iron deficiency, anemia) HPI: The patient is a 73 year old female referred for endoscopy. Prashant notes no history of colon complaints. Patient was recently admitted to [facility] [place] in August 01, 2023. 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 She has been doing well since sta tus post. She is now living with her sister. She is tolerating a diet and moving her bowels. Her last colonoscopy was in 2015 at that time she had both an upper and lower endoscopy which were both negative. She has been diagnosed with iron deficiency anemia. The patient is being seen by me today at the request of Dr. Ez Solitario MD for my opinion and advice regarding Iron deficiency anemia, unspecified iron deficiency anemia type Gerd without esophagitis (primary encounter diagnosis). PAST MEDICAL HISTORY Diagnosis Date Alcohol use 02/07/2016 1-2 drinks a day. 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 Mixed hyperlipidemia 02/07/2016 Osteopenia, senile 12/15/2019 DXA: 11/2019 Parkinson's disease 02/07/[address] 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 Neuro feels may be anxiety related. No recurrence since (last episode was 06/2015) PAST SURGICAL HISTORY Procedure Laterality Date COLONOSCOPY 2005 COLONOSCOPY 02/20/2016 Dr. 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 STRESS ECG TREADMILL 12/23/2019 negative Current Outpatient Medications Medication Sig folic acid 1 mg tablet Take 1 tablet by mouth once daily. ferrous sulfate (SLOW FE) 137 mg (45 mg iron) TbER Take 1 tablet by mouth every other day. ascorbic acid, vitamin C, (VITAMIN C) 500 mg tablet Take 1 tablet by mouth every other day. pramipexole (MIRAPEX) 0.25 mg tablet Take 0.5 tablets by mouth three times a day. Per Neuro benztropine (COGENTIN) 2 mg tablet Take 0.5 tablets by mouth two times a day. Per Neurology at [facility] nitrofurantoin monohydrate and macrocrystal (MACROBID) 100 mg capsule Take 1 capsule by mouth two times a day with meals for 7 days. Melatonin 5 mg cap Take 2 capsules by mouth daily at bedtime. valsartan (DIOVAN) 160 mg tablet Take 1 tablet by mouth once daily. furosemide (LASIX) 20 mg tablet Take 1 tablet by mouth once daily. (Patient taking differently: Take 20 mg by mouth as needed.) alendronate (FOSAMAX) 70 mg tablet Take 1 tablet by mouth one time a week. Take with a full glass of water, on an empty stomach; do NOT lie down for 30minutes. omeprazole (PRILOSEC) 40 mg capsule Take 1 capsule by mouth once daily. simvastatin (ZOCOR) 20 mg tablet Take 1 tablet by mouth daily at bedtime. cyanocobalamin (VITAMIN B-12) 1,000 mcg tab Take 1 tablet by mouth once daily. citalopram hydrobromide (CELEXA) 10 mg tablet Take 1 tablet by mouth once daily. Take with 20 mg dose for total of 30mg daily, getting from Neurology at [facility] citalopram (CELEXA) 20 mg tablet Take 1 tablet by mouth daily at bedtime. Take with 10mg dose for total of 30mg daily. Per neurology at [facility] rasagiline (AZILECT) 1 mg tab Take 1 tablet by mouth once daily. Per Neurology at [facility] estradiol (ESTRACE) 0.01 % (0.1 mg/gram) vaginal cream Use 1 g vaginally twice a week. multivitamin tablet Take 1 tablet by mouth once daily. CALCIUM CARBONATE/VITAMIN D3 (CALCIUM 500 + D ORAL) Take by mouth. aspirin, enteric coated (ADULT LOW DOSE ASPIRIN) 81 mg EC tablet Take 1 tablet by mouth once daily. Current Facility-Administered Medications Medication Dose Route Frequency perflutren lipid microspheres 1.3 mL in NaCl (PF) 0.9% 10 mL injection (DEFINITY) INTRAVENOUS DIRECTED PRN sodium chloride 0.9 % (flush) 10 mL (BD POSIFLUSH) 10 mL INTRAVENOUS DIRECTED PRN ALLERGIES: Betadine [Povidone-Iodine], Buspar [Buspirone], and Codeine PERSONAL HISTORY: Social History Tobacco Use Smoking status: Never Smokeless tobacco: Never Vaping Use Vaping Use: Never used Substance Use Topics Alcohol use: Yes Comment: approximately 1-2 beers/wine daily Drug use: No FAMILY HISTORY: FAMILY HISTORY Problem Relation Age of Onset Cancer Father 25 in groin area, Cervical Cancer Maternal Grandmother Colon Cancer Paternal Grandmother Diabetes Mother Hypertension Mother REVIEW OF SYMPTOMS: The review of systems data was entered by the nurse and reviewed by md Nursing Notes: DomiNoemy kaufman LPN 10/07/2023 3:33 PM Signed REVIEW OF SYSTEMS: General: The patient denies fatigue, denies weight loss, denies weight gain, denies feeling hot, and denies feelings of cold. Eyes: The patient denies glaucoma, denies eye injury/surgery, wears glasses or contacts. Ear/Nose/Throat: The patient notes allergies, denies hayfever, denies ear infections, and denies bloody noses. Cardiovascular: The patient denies chest pain, denies heart disease, notes high blood pressure,denies cardiac stent, denies prior heart attack, denies irregular heart beat, notes high cholesterol, denies poor circulation, denies heart failure, other cardiac issues, denies claudication, denies cold feet, denies peripheral arterial stent. Respiratory: The patient denies tuberculosis, denies pneumonia, denies frequent cough, denies pulmonary embolism, denies shortness of breath, and denies coughing up blood. Gastrointestinal: The patient notes difficulty swallowing, notes acid reflux, denies ulcers, deniesvomiting, denies jaundice/hepatitis, denies gallbladder problems, denies black or tarry stools, denies hemorrhoids, denies bleeding from rectum, denies diverticulitis, notes constipation, denies diarrhea, denies loss of stool control, and denies hernias. Kidney/Bladder: The patient denies kidney stones, notes urine infections, and denies bloody urine. Skin: The patient denies a history of skin cancer, denies bleeding/changing moles, and denies a history of skin rash. Neurologic: The patient denies a history of epilepsy/convulsions, denies headaches, denies head/spinal injuries, and denies stroke/TIA. Psychiatric: The patient notes psychiatric medications, notes depression, and denies voices, deniessubstance abuse. Endocrine: The patient denies thyroid disorders, denies diabetes, and denies hormonal problems. Hematologic: The patient denies a history of bruising, denies bleeding, and notes anemia, denies blood clots. Infections: The patient notes a history of measles and mumps, denies rheumatic fever, and denies sexually transmitted diseases. Musculoskeletal: The patient denies back pain/injury, denies back problems, denies sciatica, deniesknee/foot trouble, denies arthritis, or denies gout. When was patient's last Mammogram screening? 2018 Last Colonoscopy: 2015 Noemy Duron LPN PHYSICAL EXAMINATION: General: The patient is 73 year old female, well nourished, well hydrated in no acute distress. Thepatient is oriented to time, place, and person. VITALS: Blood pressure 146/80, pulse 77, temperature 36.7 C (98.1 F), height 157.5 cm (5' 2"), weight 55.8 kg (123 lb), SpO2 97 %. Body mass index is 22.5 kg/m . HEENT: Normal cephalic, ataumatic, pupils are equally round, sclera are anicteric, mucous membranesare moist, oropharynx is clear. Neck has no masses, asymmetry or lymphadenopathy. Thyroid is unremarkable. Respiratory: Clear to auscultation and percussion. Normal respiratory excursion and pattern. Cardiac: Examination is regular rate and rhythm. Abdominal exam: Soft, nontender, with no palpable masses. No hepatosplenomegaly. No palpable hernias. Rectal exam: exam deferred Extremities: no clubbing, cyanosis or edema. No adenopathy. Other: LABORATORY VALUES: As Noted RADIOLOGIC STUDIES: As Noted Assessment IMPRESSION: Iron deficiency anemia, unspecified iron deficiency anemia type Gerd without esophagitis (primary encounter diagnosis) PLAN: I plan to perform upper and lower endoscopy. We discussed the risks and benefits of the planned endoscopy. I have informed the patient that complications can occur including failure to completethe endoscopy and perforation. The patient had the opportunity to ask questions concerning the planned endoscopy. My staff has also explained the procedure to the patient in understandable terms and has given the patient printed material concerning the procedure. The patient freely consents to surgery. I plan to use Miralax bowel preperation for endoscopy Diagnoses: (K21.9) GERD without esophagitis (primary encounter diagnosis) (D50.9) Iron deficiency anemia, unspecified iron deficiency anemia type My findings have been communicated to Dr. Ez Solitario MD via shared medical record. This note will be forwarded to Dr. Ez Solitario MD. Return to Clinic: The patient is instructed to follow-up with me 1 week post operatively. Daren Prince III, MD documented in this encounterK[facility]11-20-2023 Instructions* Patient Instructions* Daren Prince MD - 10/07/2023 3:39 PM EST Images from the original note were not included. Bowel Preparation Instructions for: Miralax-Gatorade Preparations IF YOU DO NOT FOLLOW THESE DIRECTIONS, YOUR COLONOSCOPY WILL BE CANCELLED. [place] Instructions: Your bowel must be empty so that your doctor can clearly view your colon. Follow all of the instructions in this handout EXACTLY as they are written. Do NOT eat any solid food the ENTIRE day before your colonoscopy. Buy your bowel preparation at least 5 days before your colonoscopy. Four (4) Dulcolax laxative tablets containing 5mg of bisacodyl each (NOT Dulcolax stool softener) One (1) 8.3oz. bottle Miralax (238 grams) or generic equivalent 2 x 32oz. Bottles of Gatorade (NOT RED) Diabetic Patients: Use G2 (Gatorade 2) TRANSPORTATION on the Day of Your Exam A responsible adult MUST be present with you at Check In prior to your colonoscopy and REMAIN in the endoscopy area until you are discharged. You are NOT ALLOWED to drive, take a taxi or bus, or leave the Endoscopy Center ALONE. If you do not have a responsible clamp truck driver (family member or friend) withyou to take you home, your exam cannot be done with sedation and will be cancelled. Please bring a list of all of your current medications, including any Acho-tor-Gpqrjyc medications with you. Medications If you take insulin, diabetic medications or blood thinners such as Coumadin (warfarin), Plavix (clopidogrel), Ticlid (ticlopidine hydrochloride), Agrylin (anagrelide), Xarelto (Rivaroxaban), Pradaxa(Dabigatran), Eliquis (Apixaban), and Effient (Prasugrel). You MUST call the doctors who orders those medicines for instructions on altering the dosage before your colonoscopy. All other medications should be taken the day of the exam with a sip of water including ASPIRIN. Five (5) Days Before Your Colonoscopy Do NOT take medicines that stop diarrhea - such as Imodium, Kaopectate, or Pepto Bismol. Do NOT take fiber supplements - such as Metamucil, Citrucel, or Perdiem. Do NOT take products that contain iron - such as multi-vitamins (the label lists what is in the products). Three (3) Days Before Your Colonoscopy Do NOT eat high-fiber foods - such as popcorn, beans, seeds (flax, sunflower, quinoa), multigrain bread, nuts, salad/vegetables, or fresh and dried fruit. 1 Bowel Preparation Instructions for: Miralax-Gatorade Preparations One (1) Day Before Your Colonoscopy Only drink clear liquids the ENTIRE DAY before your colonoscopy. Do NOT eat any solid foods. Drink at least 8 ounces of clear liquids every hour after waking up. The clear liquids you can drink include: Clear Liquid (NO RED LIQUIDS) DO NOT DRINK Gatorade, Pedialyte or Powerade Clear broth or bouillon Coffee or tea (no milk or non-dairy creamer) Carbonated and non-carbonated soft drinks Matthew-Aid or other fruit flavored drinks Strained fruit juices (no pulp) Jell-O, popsicles, hard candy Water Alcohol Milk or non-dairy creamers Noodles or vegetables in soup Juice with pulp Liquid you cannot see through Do not use tobacco/vaping products Mix 1/2 of Miralax bottle (119 grams) in each 32 ounces of Gatorade bottle until dissolved. Keep cool in the refrigerator. DO NOT ADD ICE. The bowel preparation solution will be consumed in two parts. Part 1 5:00 PM - Evening before your colonoscopy Take 4 Dulcolax tablets. 6 PM - Evening before your colonoscopy Drink 32 oz. of the mixed solution. Drink an 8 oz. glass of bowel preparation every 15 minutes for a total of 4 glasses. Fifteen (15) minutes later, drink an 8 oz. glass of of clear liquids every 15 minutes for a total of 2 glasses. You may continue to drink clear liquids till midnight. Part 2 On the day of your colonoscopy you may drink clear liquids up to (three) 3 hours prior to procedure. 4 1/2 hours before your colonoscopy Take another 32 oz. bottle of mixed solution. Drink an 8 oz. glass of bowel prep every 15 minutes for a total of 4 glasses. Fifteen (15) minutes later, drink an 8 oz. glass of clear liquids every 15 minutes for a total of 2glasses. You may continue to drink clear liquids up to (three) 3 hours before your exam. 2 10/2019 documented in this encounterK[facility]23 Nurse Note* Noemy Duron LPN - 10/07/2023 3:29 PM EST REVIEW OF SYSTEMS: General: The patient denies fatigue, denies weight loss, denies weight gain, denies feeling hot, and denies feelings of cold. Eyes: The patient denies glaucoma, denies eye injury/surgery, wears glasses or contacts. Ear/Nose/Throat: The patient notes allergies, denies hayfever, denies ear infections, and denies bloody noses. Cardiovascular: The patient denies chest pain, denies heart disease, notes high blood pressure,denies cardiac stent, denies prior heart attack, denies irregular heart beat, notes high cholesterol, denies poor circulation, denies heart failure, other cardiac issues, denies claudication, denies cold feet, denies peripheral arterial stent. Respiratory: The patient denies tuberculosis, denies pneumonia, denies frequent cough, denies pulmonary embolism, denies shortness of breath, and denies coughing up blood. Gastrointestinal: The patient notes difficulty swallowing, notes acid reflux, denies ulcers, deniesvomiting, denies jaundice/hepatitis, denies gallbladder problems, denies black or tarry stools, denies hemorrhoids, denies bleeding from rectum, denies diverticulitis, notes constipation, denies diarrhea, denies loss of stool control, and denies hernias. Kidney/Bladder: The patient denies kidney stones, notes urine infections, and denies bloody urine. Skin: The patient denies a history of skin cancer, denies bleeding/changing moles, and denies a history of skin rash. Neurologic: The patient denies a history of epilepsy/convulsions, denies headaches, denies head/spinal injuries, and denies stroke/TIA. Psychiatric: The patient notes psychiatric medications, notes depression, and denies voices, deniessubstance abuse. Endocrine: The patient denies thyroid disorders, denies diabetes, and denies hormonal problems. Hematologic: The patient denies a history of bruising, denies bleeding, and notes anemia, denies blood clots. Infections: The patient notes a history of measles and mumps, denies rheumatic fever, and denies sexually transmitted diseases. Musculoskeletal: The patient denies back pain/injury, denies back problems, denies sciatica, deniesknee/foot trouble, denies arthritis, or denies gout. When was patient's last Mammogram screening? 2018 Last Colonoscopy: 2016 Noemy Duron LPN documented in this encounterK[facility]-18-2023 Miscellaneous Notes* Telephone Encounter - Berlin Urrutia LPN - 10/05/2023 9:59 AM EST Spoke with pt and pt's sister Moo and reviewed results and Dr Solitario's instructions. Moo wrote down instructions and repeats them back correctly. Pt and sister were assisted in transfer to schedule appointment with Dr Prince. Berlin Urrutia LPN * Telephone Encounter - Ez Solitario MD - 10/04/2023 9:58 PM EST Let patient know her B12 is slightly low and want her to make sure she is taking her B12 1000 mcg one day. Her folate is low and will send in script to take 1 mg day. Her iron level is low. I want her to start OTC slo Fe and take one every other day along with a 500mg Vit C tablet. I also placed a referral to see Dr. Prince in General surgery for further w/u documented in this encounterK[facility]11-14-2023 History of Present illness Narrative* Ez Solitario MD - 10/01/2023 11:01 PM EST Patient's home health 485 form / care plan for certification period 09/12/2023 to 10/31/2023 reviewed and signed. Relevant medical records were reviewed. 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 documented as of this encounter (statuses as of 02/17/2024) [facility] History of Present illness Narrative* Ez Solitario MD - 09/25/2023 11:40 AM EST Chief Complaint Patient presents with: Follow Up HPI Prashant Sheffield is a 73 year old female who presents here today for D/C from [facility]/follow up on Anxiety and Depression. Patient was seen by Dr. Quinones on 09/13/2023 for increased anxiety and depression and is here today for a follow up. Patient did resident of [facility] for 20 days after S/p open right hemicolectomy 2/2 cecalvolvulous on 08/01. Dsicharged home on 09/10 and was seen on 09/13/2023 for increased depression/anxiety. At her last visit patient states that they decreased her Cogentin to 1mg BID and Celexa from 30 mg to 20 mg daily, started her on Buspar 5 mg TID and added on Remeron 7.5 mg for sleep. Buspar isnot causing her any side effects. Was well controlled on 30 mg Celexa previously. Remeron is not helping her sleep. Cogentin prescribed by her neurologist. At last visit patient was instructed to increase her Celexa back to 30 mg daily and to continue thebuspar but may discuss discontinue if symptoms improved. Patient was also instructed to take benadryl PRN for panic symptoms. Patient was instructed to ween off of Buspar recently due to either increased anxiety symptoms or serotonin syndrome. Patient is currently down to 1 pill this week and will be finished. Has not noted any increased anxiety or panic attacks with naima gallagher. Moved the Celexa back to the evening and she is sleeping better. Patient is taking the benadryl 25 mg (2) tablets at bedtime helps with anxiety. At the last visit patient admits to panic symptoms. Denies SI/HI, feels safe going home today. It was also noted from her previous visit that they reduced her Valsartan from 160 mg daily to 80 mg daily and added on metoprolol 12.5 mg BID. She was advised to hold metoprolol with BP <100/60 or HR <56. Her valsartan is back to 160 mg a day. BP at home has been running in the 120's-130's/60-80's. Denies lightheadedness/dizziness, syncope, falls. She has been having Home health nurses come check her incision and vitals. PT was also to be comingto patient's home evaluation. Tolerating PO diet. Discharged from GI standpoint after f/u from surgery. Has been released from surgery f/u as well. Ambulating with walker mostly. Sister helps her up and down the stairs and with ADLs. Has not had any falls since she was admitted. Has patient been completing her PT? Patient has had 3 visit so far. How is patient feeling? Patient has noticed an improvement Any concerns today: Vaginal discharge (brown). Not itching and is a small amount. Dark yellow/brown. No vaginal itching or pain. Denies urine frequency, urgency or dysuria. Some issues with Constipation: this has resolved. Hsa been taking prune juice with some butter. Past medical history, appointments, medications, allergies reviewed. Previous Medical History PAST MEDICAL HISTORY Diagnosis Date Alcohol use 02/07/2016 1-2 drinks a day. Anemia 02/11/2023 Anxiety and depression 02/07/2016 Atrophic vaginitis 06/09/2019 Dry mouth 03/26/2016 Essential hypertension 02/07/2016 Family history of colon cancer in mother 02/14/2016 Fibroid uterus 02/07/2016 Had one and never needed surgery Frequent falls 07/20/2021 Patient declines Physical Therapy as of 07/20/2021 GERD without esophagitis 02/07/2016 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 Mixed hyperlipidemia 02/07/2016 Osteopenia, senile 12/15/2019 DXA: 11/2019 Parkinson's disease 02/07/[address] 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 Neuro feels may be anxiety related. No recurrence since (last episode was 06/2015) Previous Surgical History PAST SURGICAL HISTORY Procedure Laterality Date COLONOSCOPY 2005 COLONOSCOPY 02/20/2016 Dr. 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 STRESS ECG TREADMILL 12/23/2019 negative Family History FAMILY HISTORY Problem Relation Age of Onset Cancer Father 25 in groin area, Cervical Cancer Maternal Grandmother Colon Cancer Paternal Grandmother Diabetes Mother Hypertension Mother Patient Allergies ALLERGIES Allergen Reactions Betadine [Povidone-* Rash Codeine Intolerance "crazy dreams" does not like to take it Current Medications Current Outpatient Medications on File Prior to Visit Medication Sig busPIRone (BUSPAR) 5 mg tablet Take 5 mg by mouth three times a day. Melatonin 5 mg cap Take 2 capsules by mouth daily at bedtime. valsartan (DIOVAN) 160 mg tablet Take 1 tablet by mouth once daily. furosemide (LASIX) 20 mg tablet Take 1 tablet by mouth once daily. (Patient not taking: Reported on09/13/2023) pramipexole (MIRAPEX) 0.25 mg tablet Take 1 tablet by mouth three times daily. Per Neuro (Patient taking differently: Take 0.125 mg by mouth three times a day. Per Neuro) alendronate (FOSAMAX) 70 mg tablet Take 1 tablet by mouth one time a week. Take with a full glass of water, on an empty stomach; do NOT lie down for 30minutes. omeprazole (PRILOSEC) 40 mg capsule Take 1 capsule by mouth once daily. simvastatin (ZOCOR) 20 mg tablet Take 1 tablet by mouth daily at bedtime. cyanocobalamin (VITAMIN B-12) 1,000 mcg tab Take 1 tablet by mouth once daily. citalopram hydrobromide (CELEXA) 10 mg tablet Take 1 tablet by mouth once daily. Take with 20 mg dose for total of 30mg daily, getting from Neurology at [facility] citalopram (CELEXA) 20 mg tablet Take 1 tablet by mouth daily at bedtime. Take with 10mg dose for total of 30mg daily. Per neurology at [facility] benztropine (COGENTIN) 2 mg tablet Take 1 tablet by mouth twice daily. Per Neurology at [facility] (Patient taking differently: Take 1 mg by mouth two times a day. Per Neurology at [facility]) rasagiline (AZILECT) 1 mg tab Take 1 tablet by mouth once daily. Per Neurology at [facility] estradiol (ESTRACE) 0.01 % (0.1 mg/gram) vaginal cream Use 1 g vaginally twice a week. multivitamin tablet Take 1 tablet by mouth once daily. CALCIUM CARBONATE/VITAMIN D3 (CALCIUM 500 + D ORAL) Take by mouth. aspirin, enteric coated (ADULT LOW DOSE ASPIRIN) 81 mg EC tablet Take 1 tablet by mouth once daily. Current Facility-Administered Medications on File Prior to Visit Medication perflutren lipid microspheres 1.3 mL in NaCl (PF) 0.9% 10 mL injection (DEFINITY) sodium chloride 0.9 % (flush) 10 mL (BD POSIFLUSH) Social History Social History Tobacco Use Smoking status: Never Smokeless tobacco: Never Vaping Use Vaping Use: Never used Substance Use Topics Alcohol use: Yes Comment: approximately 1-2 beers/wine daily Drug use: No Review of Symptoms REVIEW OF SYSTEMS RESPIRATORY: Negative for cough, hemoptysis, wheezing, COPD, dyspnea or shortness of breath CARDIOVASCULAR: Negative for chest pain, leg swelling, hypertension, CHF or palpitations. Some ankle swelling and stable. GI: No nausea, vomiting, or abd pain and no bloating or distention. NEURO: No history of headaches, syncope, paralysis, seizures. See HPI EXAM: BP 120/70 (BP Site: Right Arm, BP Position: Sitting, BP Cuff Size: Regular Adult) Pulse 70 Resp16 Wt 56.2 kg (124 lb) BMI 22.68 kg/m General Appearance: Well appearing, alert, in no acute distress, well-hydrated, well nourished.. Neck: Supple, no adenopathy; thyroid symmetric, normal size, no bruits. Lungs: Lungs clear to auscultation. No wheezing, rhonchi, rales.. Heart: RRR without murmur, gallop, or rubs. No ectopy. Abdomen: Normal abdominal exam, Abdomen soft, non-tender. Bowel sounds normal. No masses, organomegaly. Extremities: No deformities, skin discoloration, Good capillary refill. Mild none pitting edema. Health Maintenance List RSV Vaccine(1 - 1-dose 60+ series) Never done Mammogram Screening due on 11/04/2021 BP Controlled (<130/80) due on 01/16/2022 Influenza Vaccine(1) due on 07/19/2023 Covid-19 Vaccine(4 - season) due on 07/19/2023 DTaP,Tdap,Td Vaccine(1 - Tdap) due on 02/13/2024 Shingrix Vaccine(1 of 2) due on 02/13/2024 Serum Creatinine due on 07/25/2024 Hemoglobin/Hematocrit due on 07/25/2024 Annual PCP Team Chronic Disease Visit due on 09/13/2024 Colorectal Cancer Screening due on 02/19/2026 Diabetes Screening due on 07/25/2026 Lipid Screening due on 07/25/2028 Bone Density Screening Completed Advance Directive Discussion Completed Hepatitis C Screening Completed Pneumococcal Vaccine: 65+ Completed Data reviewed A/P ASSESSMENT/PLAN: 1. 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 Vaginal discharge - ICD9: 623.5, ICD10: N89.8 - CONSULT TO KENNEL OPERATOR Check - URINALYSIS, WITH MICROSCOPIC - URINE CULTURE 3. Encounter for immunization - ICD9: V03.89, ICD10: Z23 - INFLUENZA VACCINE, PRSV FREE, AGE 65+ YR, HIGH DOSE, QUADRIVALENT (FLUZONE HIGH-DOSE) - [email or web address] COVID-19 VACCINE ( SEASON) AGE 12+ YR 4. Anemia, unspecified type - ICD9: 285.9, ICD10: D64.9 Check - CBC + DIFF 5. Stage 3a chronic kidney disease (HCC) - ICD9: 585.3, ICD10: N18.31 Check - BASIC METABOLIC PNL - URINALYSIS, WITH MICROSCOPIC - URINE CULTURE 6. Other general symptoms and signs - ICD9: 780.99, ICD10: R68.89 Check - URINE CULTURE to make sure the brown discharge is not a UTI. 7. Anxiety and depression - ICD9: 300.00, 311, ICD10: F41.9, F32.A - improved with Celexa at 30 mg before bed and has helped with her sleep. Patient will be off the Buspar at the end of the week I spent a total of 35 minutes on the date of the service which included preparing to see the patient, [id number] patient care, completing clinical documentation, performing a medically appropriate examination, counseling and educating the patient/family/caregiver and ordering medications, tests, or procedures. Patient was asked at end of visit if they had any questions or input regarding the plan of care we had discussed. Ez Solitario MD documented in this encounterK[facility]11-03-2023 Miscellaneous Notes* Telephone Encounter - Sury Harding LPN - 09/20/2023 3:04 PM EDT Addended note faxed to [facility] at [phone]. Sury Harding LPN * Telephone Encounter - Alonso Quinones MD - 09/20/2023 1:00 PM EDT Note addended. * Telephone Encounter - Rain Dhillon RN - 09/20/2023 10:58 AM EDT Wendi with [facility] called in and reports they are having trouble getting Pts wheelchair covered by the Pts Medicare. She states she needs to last OV notes faxed over, and they need to say that the Ptneeds the wheelchair for mobility. Last OV was on 09/13/[address] Quinones stated: "6. Mobility impaired - ICD9: 799.89, ICD10: Z74.09 F/u with home PT as scheduled. Use walker for ambulation. Discussed risks of falls.", as well as, "Ambulating with walker mostly. Sister helps her up and down the stairs and with ADLs. Has not had any falls since she was admitted.". She said it would need to be addended to say, Pt requires wheelchair walker or cane is not sufficient. Once changes have been made please fax to # [phone]. documented in this encounterK[facility]10-30-2023 Miscellaneous Notes* Telephone Encounter - Meera Yun Ma - 09/16/2023 5:00 PM EDT Moo notified. Meera Yun Ma * Telephone Encounter - Ez Solitario MD - 09/16/2023 4:57 PM EDT Advise the sister that the Buspar should be weaned to off by taking one twice a day for a week and then one once a day for a week and then stop it. * Telephone Encounter - Louise Pemberton RN - 09/16/2023 3:16 PM EDT Patient's sister Moo calls and state that patient continues to have problems. Patient continues to have night time panic attacks that last 1-4 hours. Patient also has been have some issues during the day time. Sister asking about the Buspar and if patient can discontinue this. Sister states that patient never had these issues until she was started on medication in July at [facility]. Patient doeshave appointment scheduled with provider on 09/25. Patient saw Dr. Quinones on 09/13. Please review and advise, Louise Pemberton RN documented in this encounterK[facility]10-27-2023 History of Present illness Narrative* Alonso Quinones MD - 09/13/2023 2:48 PM EDT Chief Complaint Patient presents with: Anxiety Follow Up: Discharge from [facility] HPI Prashant Sheffield is a 73 year old female who presents here today for Above Complaints. Accompanied today by her sister Moo whom she is living with from now on. Patient resident of [facility] for 20 days after S/p open right hemicolectomy 12/20 cecal volvulous on 08/01. Dsicharged home on 09/10 and is here today with complaint of worsening anxiety and depression symptoms. States that they decreased her Cogentin to 1mg BID and Celexa from 30 mg to 20 mg daily, started her on Buspar 5 mg TID and added on Remeron 7.5 mg for sleep. Buspar is not causingher any side effects. Was well controlled on 30 mg Celexa previously. Remeron is not helping her sleep. Cogentin prescribed by her neurologist. Admits to panic symptoms. Denies SI/HI, feels safe going home today. 09/13/2023 1443 Last Filed Value LEIGHTON-7 - over the last 2 weeks... Feeling nervous, anxious, or on edge Nearly Everyday Nearly Everyday Not being able to stop or control worrying Nearly Everyday Nearly Everyday Worrying too much about different things More than half the days More than half the days Trouble relaxing Nearly Everyday Nearly Everyday Being so restless that it is hard to sit still Nearly Everyday Nearly Everyday Becoming easily annoyed or irritable Several days Several days Feeling afraid, as if something awful might happen Several days Several days How difficult to do work, care for home, get along with people Extremely difficult Extremely difficult LEIGHTON-2 Total Score 6 6 LEIGHTON-7 Total Score 16 16 LEIGHTON-7 Score 16 16 09/13/2023 1449 Last Filed Value PHQ-9 Little interest or pleasure in doing things Several days Several daysLittle interest or pleasure indoing things. Several days. Last Filed Value Feeling down, depressed, or hopeless Several days Several daysFeeling down, depressed, or hopeless.Several days. Last Filed Value Trouble falling or staying asleep, or sleeping too much More than half the days More than half the days Feeling tired or having little energy More than half the days More than half the days Poor appetite or overeating Several days Several days Feeling bad about yourself - or that you are a failure or have let yourself or your family down Notat all Not at all Trouble concentrating on things, such as reading the newspaper or watching television Several days Several days Moving or speaking so slowly that other people could have noticed. Or the opposite - being so fidgety or restless that you have been moving around a lot more than usual Nearly every day Nearly every day Thoughts that you would be better off , or of hurting yourself in some way Several days Severaldays If you checked off any problems, how difficult have these problems made it for you to do your work,take care of things at home, or get along with other people? -- -- PHQ-9 score 12 12 PHQ-9 Score 12 12 PHQ-2 score 2 2 PHQ-2 Score 2 2 They also note that they reduced her Valsartan from 160 mg daily to 80 mg daily and added on metoprolol 12.5 mg BID. Advised to hold metoprolol with BP <100/60 or HR <56. BP at home has been running in the 120's-130's/60-80's. Denies lightheadedness/dizziness, syncope, falls. Asking if they can take her off the metoprolol and increase the Valsartan back to previous levels. Home health nurse was out yesterday to check incision and check vitals. No needs identified for incision care. PT to come out Saturday for evaluation. Tolerating PO diet. Discharged from GI standpoint after f/u from surgery. Ambulating with walker mostly. Sister helps her up and down the stairs and with ADLs. Has not had any falls since she was admitted. Past medical history, appointments, medications, allergies reviewed. Previous Medical History PAST MEDICAL HISTORY Diagnosis Date Alcohol use 02/07/2016 1-2 drinks a day. Anemia 02/11/2023 Anxiety and depression 02/07/2016 Atrophic vaginitis 06/09/2019 Dry mouth 03/26/2016 Essential hypertension 02/07/2016 Family history of colon cancer in mother 02/14/2016 Fibroid uterus 02/07/2016 Had one and never needed surgery Frequent falls 07/20/2021 Patient declines Physical Therapy as of 07/20/2021 GERD without esophagitis 02/07/2016 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 Mixed hyperlipidemia 02/07/2016 Osteopenia, senile 12/15/2019 DXA: 11/2019 Parkinson's disease 02/07/[address] 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 Neuro feels may be anxiety related. No recurrence since (last episode was 06/2015) Previous Surgical History PAST SURGICAL HISTORY Procedure Laterality Date COLONOSCOPY 2005 COLONOSCOPY 02/20/2016 Dr. 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 STRESS ECG TREADMILL 12/23/2019 negative Family History FAMILY HISTORY Problem Relation Age of Onset Cancer Father 25 in groin area, Cervical Cancer Maternal Grandmother Colon Cancer Paternal Grandmother Diabetes Mother Hypertension Mother Patient Allergies ALLERGIES Allergen Reactions Betadine [Povidone-* Rash Codeine Intolerance "crazy dreams" does not like to take it Current Medications Current Outpatient Medications on File Prior to Visit Medication Sig Melatonin 5 mg cap Take 5 mg by mouth daily at bedtime. busPIRone (BUSPAR) 5 mg tablet Take 5 mg by mouth three times a day. mirtazapine (REMERON) 15 mg tablet Take 7.5 mg by mouth daily at bedtime. pramipexole (MIRAPEX) 0.25 mg tablet Take 1 tablet by mouth three times daily. Per Neuro (Patient taking differently: Take 0.125 mg by mouth three times a day. Per Neuro) alendronate (FOSAMAX) 70 mg tablet Take 1 tablet by mouth one time a week. Take with a full glass of water, on an empty stomach; do NOT lie down for 30minutes. valsartan (DIOVAN) 160 mg tablet Take 1 tablet by mouth once daily. (Patient taking differently: Take 80 mg by mouth once daily.) omeprazole (PRILOSEC) 40 mg capsule Take 1 capsule by mouth once daily. simvastatin (ZOCOR) 20 mg tablet Take 1 tablet by mouth daily at bedtime. cyanocobalamin (VITAMIN B-12) 1,000 mcg tab Take 1 tablet by mouth once daily. citalopram (CELEXA) 20 mg tablet Take 1 tablet by mouth daily at bedtime. Take with 10mg dose for total of 30mg daily. Per neurology at [facility] benztropine (COGENTIN) 2 mg tablet Take 1 tablet by mouth twice daily. Per Neurology at [facility] (Patient taking differently: Take 1 mg by mouth two times a day. Per Neurology at [facility]) rasagiline (AZILECT) 1 mg tab Take 1 tablet by mouth once daily. Per Neurology at [facility] multivitamin tablet Take 1 tablet by mouth once daily. aspirin, enteric coated (ADULT LOW DOSE ASPIRIN) 81 mg EC tablet Take 1 tablet by mouth once daily. furosemide (LASIX) 20 mg tablet Take 1 tablet by mouth once daily. (Patient not taking: Reported on09/13/2023) gabapentin (NEURONTIN) 400 mg capsule Take 400 mg by mouth once daily. (Patient not taking: Reported on 09/13/2023) citalopram hydrobromide (CELEXA) 10 mg tablet Take 1 tablet by mouth once daily. Take with 20 mg dose for total of 30mg daily, getting from Neurology at [facility] (Patient not taking: Reported on 09/13/2023) estradiol (ESTRACE) 0.01 % (0.1 mg/gram) vaginal cream Use 1 g vaginally twice a week. CALCIUM CARBONATE/VITAMIN D3 (CALCIUM 500 + D ORAL) Take by mouth. Current Facility-Administered Medications on File Prior to Visit Medication perflutren lipid microspheres 1.3 mL in NaCl (PF) 0.9% 10 mL injection (DEFINITY) sodium chloride 0.9 % (flush) 10 mL (BD POSIFLUSH) Social History Social History Tobacco Use Smoking status: Never Smokeless tobacco: Never Vaping Use Vaping Use: Never used Substance Use Topics Alcohol use: Yes Comment: approximately 1-2 beers/wine daily Drug use: No Review of Symptoms REVIEW OF SYSTEMS GENERAL: No weight loss, malaise or fevers RESPIRATORY: Negative for cough, hemoptysis, wheezing, COPD, dyspnea or shortness of breath CARDIOVASCULAR: Negative for chest pain, leg swelling, hypertension, CHF or palpitations GI: No nausea, vomiting, or diarrhea SKIN: Negative for lesions, rash, and itching EXAM: BP 148/72 Pulse 68 Resp 16 SpO2 99% General Appearance: Well appearing, alert, in no acute distress, well-hydrated, well nourished.. Skin: Skin color, texture, turgor normal, no suspicious rashes or lesions. Incision site well healed on abdomen. Lungs: Lungs clear to auscultation. No wheezing, rhonchi, rales.. Heart: RRR without murmur, gallop, or rubs. No ectopy. Abdomen: Normal abdominal exam, Abdomen soft, non-tender. Bowel sounds normal. No masses, organomegaly. Extremities: No deformities, edema, skin discoloration, clubbing or cyanosis. Good capillary refill. . Health Maintenance List RSV Vaccine(1 - 1-dose 60+ series) Never done Mammogram Screening due on 11/04/2021 BP Controlled (<130/80) due on 01/16/2022 Influenza Vaccine(1) due on 07/19/2023 Covid-19 Vaccine( - season) due on 07/19/2023 DTaP,Tdap,Td Vaccine(1 - Tdap) due on 02/13/2024 Shingrix Vaccine(1 of 2) due on 02/13/2024 Serum Creatinine due on 07/25/2024 Hemoglobin/Hematocrit due on 07/25/2024 Annual PCP Team Chronic Disease Visit due on 09/13/2024 Colorectal Cancer Screening due on 02/19/2026 Diabetes Screening due on 07/25/2026 Lipid Screening due on 07/25/2028 Bone Density Screening Completed Advance Directive Discussion Completed Hepatitis C Screening Completed Pneumococcal Vaccine: 65+ Completed ASSESSMENT/PLAN: 1. Anxiety with depression - ICD9: 300.4, ICD10: F41.8 (primary diagnosis) Uncontrolled. Will increase celexa to 30 mg daily since she was well controlled on this before. Continue Buspar at this time, but may consider D/C at future OV if symptoms improved. Discuss Cogentin dose with neurology. F/u with PCP as scheduled. Advised use of benadryl PRN for panic symptoms. Vistaril causes interaction with her medications, so was not prescribed today. 2. 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 Tolerating diet. Discharged from GI. No pain. Will monitor. 3. S/P right hemicolectomy - ICD9: V45.89, ICD10: Z90.49 See above. 4. Essential hypertension - ICD9: 401.9, ICD10: I10 - Controlled Discontinue metoprolol BID and increase valsartan back to 160 mg daily. Recheck at OV with PCP in September. 5. Parkinson's disease with dyskinesia, unspecified whether manifestations fluctuate - ICD9: 332.0,ICD10: G20.B1 Stable. F/u with neurology. 6. Mobility impaired - ICD9: 799.89, ICD10: Z74.09 F/u with home PT as scheduled. Use walker for ambulation. Discussed risks of falls. I spent a total of 40 minutes on the date of the service which included preparing to see the patient, napi-gy-ysiz patient care, completing clinical documentation, obtaining and/or reviewing separately obtained history, performing a medically appropriate examination, counseling and educating the pat ient/family/caregiver, and ordering medications, tests, or procedures. Alonso Quinones MD documented in this [facility]-2023 Miscellaneous Notes* Telephone Encounter - Deirdre Oliva RN - 09/10/2023 12:40 PM EDT Phoned Ann, and given provider's message below with verbalized understanding. * Telephone Encounter - Ez Solitario MD - 09/10/2023 10:48 AM EDT Omer Juarez know I will sign the [facility] orders but not a F2f since this should have been signed by the provider who ordered the C. * Telephone Encounter - Berlin Urrutia LPN - 09/10/2023 10:39 AM EDT Ann yumiko [facility] calling to see if Dr Solitario is willing to sign pt's HH orders. Call Ann at [phone]. Ok to leave . 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 [facility]. Patientis planning to live with sister in 1-2 weeks. Patient's appointment in office was cancelled due to patient being in the hospital. Patient's last medicare wellness was 08/13/2022. Patti Tomas MA documented in this encounterK[facility]09-20-2023 Miscellaneous Notes* Telephone Encounter - Ez Solitario MD - 08/07/2023 12:52 PM EDT Noted. Will forward messages onto Edna as FYI * Telephone Encounter - Jonathon Huynh LPN - 08/06/2023 4:39 PM EDT FYI- pt is admitted to [facility]. Records were printed and are on nurse's desk in Edna's office d/t upcoming appt with her on 08/15. * Telephone Encounter - Jonathon Huynh LPN - 08/05/2023 3:26 PM EDT Left message to return call to office. Jonathon Huynh LPN * Telephone Encounter - Deirdre Oliva RN - 08/02/2023 11:13 AM EDT Left detailed vm on identified vm asking patient to returned call to nurse with reply. * Telephone Encounter - Ez Solitario MD - 08/01/2023 11:01 PM EDT Let patient know recent Ua appears to show she may have a UTI. See if any symptoms. If so will needTx. The rest of her labs will be reviewed at her appt with Edna on 08/15/2023. documented in this encounterK[facility]09-19-2023 Discharge summary Author Rain Bustos [facility] August 06, 2023 12:40pm Note Date/Time August 06, 2023 11:14am [facility] Medical Records Department [address] [place] [address] Transfer to [facility] MR#: [id number] Acct: [id number] Name: PRASHANT SHEFFIELD Rep #:[id number] : 1950 73 From: Rain BOSE PA-C PCP: Dr. Ez Solitario MD Status:ADM IN Certification of patient admission REQUIRED AT TIME OF ADMISSION. I CERTIFY THAT POST-HOSPITAL ECF SERVICES ARE REQUIRED TO BE GIVEN ON AN IN-PATIENT BASIS BECAUSE OF THE ABOVE NAMED PATIENT'S NEED FOR CUSTODIAL CARE ON A CONTINUING BASIS FOR THE CONDITION(S) FOR WHICH HE/SHE WAS RECEIVING IN-PATIENT HOSPITAL SERVICES PRIOR TO HIS/HER TRANSFER TO THE F. 08/06/23 1240<Electronically signed by Rain BOSE PA-C> Diet Diet Order/Speech Therapy: 08/05/23 08:19 Diet: Regular - General Type of Dietary Supplement:: Magic Cup Dessert Is pt able to select menu?: Yes Diet Comments: softer foods per pt request; MC or ensure pudding w/ L&D, fortoatmeal @ B Wound(s) ABD: Wound Type: Surgical Incision forehead: Wound Type: Laceration Therapies Physical Therapy: Eval and Treat Occupational Therapy: Eval and Treat Speech Therapy: Eval and Treat Problem/Diagnosis (1) UTI (urinary tract infection): Status: Acute Code(s): N39.0 - Urinary tract infection, site not specified Plan: Start Macrobid for antibiotics x 5 days. Will await cultures to see if antibiotics will need to be changed. (2) S/P right hemicolectomy: Status: Acute Code(s): Z90.49 - Acquired absence of other specified parts of digestive tract Plan: Continue transitional diet until follow-up with Dr. Andre No lifting greater than 10 pounds until follow-up with Dr. Andre Follow-up with Dr. Andre in 1 week Allergies/Procedures Done in Hospital Allergies codeine Adverse Reaction (Verified 08/01/23 16:52) "CRAZY DREAMS" DOES NOT LIKE TO TAKE IT Type of Care/Length of Stay Estimated LOS: Convalescent Care Less Than 30 days Type of Care Needed: Acute Rehab Rehab Potential: Fair Prognosis: Fair Additional Orders/Day of Discharge Day of Discharge: 08/06/23 Dietary and Speech Recommendations Dietitian Recommendations/Changes: Continue ensure plus high protein w/ medpass 120mL 3x/day Continue liberal regular diet - will request softer foods per pt request - add fortified oatmeal at breakfast, ensure pudding or magic cup w/ lunch and dinner for increased nutrition if consumed. Follow Up Care Please Follow Up With: Esme Andre MD When: Follow-up in 1 week from discharge Discharge Plan Admission Admit Date/Time: 08/01/23 19:05 Primary Reason for Your Visit: Cecal volvulus Attending Provider: Esme Andre Primary Care Provider: Ez Solitario Instructions Additional Instructions / Restrictions: Diet ? Start light with soups and soft bland foods. Refer to your transitional diet instruction sheet Activity ? You may drive in 5-7 days but not while taking narcotic pain medication. ? I encourage walking. You may go up steps, one at a time. ? Do not swim or use hot tubs for 2 weeks. Lifting ? You may lift up to 10 pounds for the first 2 weeks. You may advance to 20 pounds for the next 3 weeks. Dressings/Incision ? You may shower OVER your plastic dressings ? Do NOT tub bathe for 1 week ? When plastic dressings are removed, you will find steri strips. It is okay to continue showering with them in place, pat them dry. ? You may remove steri-strips after 1 week. We recommend getting them soaking wet for easier removal. Medications ? Anesthesia used during surgery and pain medications may cause constipation. I recommend initiating on the day of surgery a fiber supplement like, Metamucil, Citrucel, FiberCon, Benefiber, or a generic form of these medications. 1 heapingtablespoon in water daily. You may continue to utilize any bowel regimen or orallaxatives that you routinely take. ? As long as you are not intolerant to Tylenol, acetaminophen, ibuprofen, Motrin, Advil, Aleve, or similar medications, I would recommend transitioning tothese piqs-oww-yedqhzn medicines as soon as possible instead of continued use ofnarcotic pain medication. Follow up ? You should call [facility] soon after surgery, at [phone] option 1 to make a follow up appointment for 14 days after your surgery. Transitional Diet Beverages: ? Soda (cola, diet cola, lemon-tetlin, diet lemon-tetlin, kermit alejandra, diet kermit alejandra) ? Tea (hot or iced) ? Milk (low-fat, 2%, lactose free) ? Coffee ? Juice (without pulp) ? Oral Nutrition supplement Breakfast: ? Hot cereal (oatmeal or cream of wheat) ? Scrambled eggs ? Blueberry muffin ? Cold cereal (no whole grain cereals) ? [place] (white) Lunch or Dinner: Deli Items: Hot Items: Warren sandwich Roast Warren Tuna salad (sandwich or alone) Macaroni & Cheese Egg salad (sandwich or alone) Mashed potatoes & gravy Chicken salad (sandwich or alone) Carrots Green beans Cold Sides: Soups: Cottage cheese Vegetable soup Yogurt Chicken noodle Hardboiled egg Dessert: ? Gelatin, pudding, side kick (juice slushie) Discharge Orders/Prescriptions Prescriptions: New acetaminophen 500 mg Tablet 1,000 mg PO Q8 7 Days Qty: 42 0RF Ensure Plus High Protein 0.08 gram-1.5 kcal/mL Liquid 120 ml PO TIDCM Qty: 0 0RF nitrofurantoin monohyd/m-cryst [Macrobid] 100 mg capsule 100 mg PO Q12H 5 Days Qty: 10 0RF Rx Instructions: must administer with a meal/food Continued simvastatin 20 MG tablet 20 mg PO QHS benztropine 2 MG tablet 1 mg PO BID citalopram 10 mg tablet 10 mg PO DAILY Patient Comments: TAKE ONE 10MG AND ONE 20MG TABLET TOGETHER ONCE EVERY NIGHT FOR A TOTAL DOSE OF 30MG. alendronate 70 mg tablet 70 mg PO OLMOS omeprazole 40 mg capsule,delayed release(DR/EC) 40 mg PO DAILY pramipexole 0.125 mg tablet 0.125 mg PO TID Patient Comments: STARTED ON 07-20-23 Rx Instructions: TAKE ONE 0.125MG TABLET BY MOUTH THREE TIMES A DAY FOR 14 DAYS THEN STOP. THEN TAKE ONE 0.25MG TABLET BY MOUTH FOR THREE DAYS THEREAFTER. pramipexole 0.25 mg tablet 0.25 mg PO TID Patient Comments: START DATE: 08-03-23 rasagiline 1 mg tablet 1 mg PO DAILY citalopram 20 mg tablet 20 mg PO DAILY Rx Instructions: TAKE ONE 10MG AND ONE 20MG TABLET TOGETHER ONCE EVERY NIGHT FOR A TOTAL DOSE OF 30MG. valsartan 160 mg tablet 160 mg PO DAILY melatonin 5 mg tablet 10 mg PO QHS aspirin 81 MG tablet,chewable 81 mg PO DAILY Discontinued cephalexin 500 mg capsule 500 mg PO TID Qty: 15 0RF Patient Comments: STARTED ON 07-28-23 @4PM END DATE: 08-02-23 IN THE MORNING TIME Referrals / Follow Up: Ez Solitario MD [Primary Care Provider] - Disposition Disposition (needs filled in before D/C Order can be placed): Inpatient Rehab Unit/Facility Charges/Coding Visit Charges Inpatient E&M: 07077 Disch Hosp (no charge; post-op) (1) UTI (urinary tract infection) Qualifiers: Urinary tract infection type: site unspecified Hematuria presence: without hematuria Qualified Code(s): N39.0 - Urinary tract infection, site not specified 08/06/23 1240 <Electronically signed by Rain BOSE PA-C> Cosigner Signature (if applicable): CC: Dr. Ez Solitario MD ~ [facility] Work Phone: 1(984) 770-991009-19-2023 Progress note Author Ishaan Olson [facility] August 06, 2023 9:07am Note Date/Time August 06, 2023 9:07am [facility] Medical Records Department [address] [place] [address] Progress Note - Surgery 08/06/23905 MR#: [id number] Acct: [id number] Name: PRASHANT SHEFFIELD Rep #:[id number] : 1950 73 From: Ishaan shah MD PCP: Dr. Ez Solitario MD Status:ADM IN Location: [place] [address] Subjective Subjective Patient was less confused overnight. She is passing gas and tolerating regular diet. Objective Data Objective Data Vital Signs: Vital Signs Temp Pulse Resp BP Pulse Ox O2 Del Method O2 Flow Rate 98.2 F 82 16 143/86 H 95 Room Air 96 08/06/23 08:35 08/06/23 08:35 08/06/23 08:35 08/06/23 08:35 08/06/23 08:35 08/06/23 08:35 08/02/23 12:19 Oxygen Flow Rate (L/min) 96 Oxygen Delivery Method Room Air Weight: 137 lb 3.204 oz Body Mass Index (BMI) 25.0 Intake & Output: Intake and Output for Last 24 Hours 08/04/23 08/05/23 08/06/23 23:59 23:59 23:59 Intake Total 1218 / 1418 1834 / 1834 50 / 50 Output Total 255 / 255 Balance 963 / 1163 1834 / 1834 50 / 50 Lab / Micro Data 08/06/23 06:20 08/06/23 06:20 Labs: Laboratory Results - last 24 hr 08/04/23 06:25: Diff Path Review Reviewed 08/05/23 15:40: Urine Color Yellow, Urine Clarity Sl. Cloudy, Urine pH 5.0, Ur Specific [place]ctor 1.030, Urine Protein 30 H, Urine Glucose (UA) Normal, Urine Ketones 15 H, Urine Occult Blood 10 H, Urine Nitrite Positive H, Urine Bilirubin1 H, Urine Urobilinogen 1 H, Ur Leukocyte Esterase 500 H, Urine RBC 0-5 SEEN, Urine WBC 25- 50 SEEN, Ur Squamous Epith Cells 0-5 SEEN, Amorphous Sediment 1+ URATE, Urine Bacteria 3+, Urine Mucus 0 SEEN 08/06/23 06:20: WBC 6.8, RBC 3.18 L, Hgb 9.1 L, Hct 28.1 L, MCV 88.4, MCH 28.6, MCHC 32.4, RDW Std Deviation 45.1 H, RDW Coeff of Addie 13.9, Plt Count 279, MPV 10.1, Immature Gran % (Auto) 0.400, Neut % (Auto) 66.5, Lymph % (Auto) 19.4, [place] % (Auto) 10.2 H, Eos % (Auto) 3.2, Baso % (Auto) 0.3, Absolute Neuts (auto)4.5, Absolute Lymphs (auto) 1.33, Nucleated RBC % 0, Sodium 140, Potassium 3.5, Chloride 112 H, Carbon Dioxide 23.0, Anion Gap 5, BUN 18, Creatinine 0.74, EstimCreat Clear Calc 40.22, Est GFR (MDRD) Af Amer 100, Est GFR (MDRD) Non-Af 82, BUN/Creatinine Ratio 24.5 H, Glucose 103, Calcium 8.0 L Physical Exam Const oriented x3 and no apparent distress Resp normal respiratory effort GI soft to palpation and non-tender Assessment & Plan Assessment/Plan (1) UTI (urinary tract infection): (2) S/P right hemicolectomy: PLAN: Plan Patient has been for the last few nights though UA was checked yesterday. It was confirmed to be a urinary tract infection. She was started on Zosyn yesterday. I will convert her to oral Cipro and send her to TCU today. She is tolerating regular diet. I will continue to monitor the cultures and ifthese are insufficient to change her antibiotics. Ishaan Olson MD Pager: [facility] [address], [address] [place] [address] Office: 08/06/23906 <Electronically signed by Ishaan Olson MD> Cosigner Signature (if applicable): CC: ~ Signed [facility] Work Phone: [phone]) 917-907909-18-2023 Progress note Author Rain Bustos [facility] August 05, 2023 3:00pm Note Date/Time August 05, 2023 8:17am [facility] Medical Records Department [address] [place] [address] Progress Note - Surgery 08/05/23815 MR#: [id number] Acct: [id number] Name: PRASHANT SHEFFIELD Rep #:[id number] : 1950 73 From: Ishaan shah MD PCP: Dr. Ez Solitario MD Status:ADM IN Location: [place] [address] Subjective Subjective Patient had confusion and delirium again last night. Objective Data Objective Data Vital Signs: Vital Signs Temp Pulse Resp BP Pulse Ox O2 Del Method O2 Flow Rate 99.2 F H 85 16 146/81 H 95 Room Air 96 08/05/23 02:25 08/05/23 02:25 08/05/23 02:25 08/05/23 02:25 08/05/23 02:25 08/05/23 02:26 08/02/23 12:19 Oxygen Flow Rate (L/min) 96 Oxygen Delivery Method Room Air Weight: 137 lb 3.204 oz Body Mass Index (BMI) 25.0 Intake & Output: Intake and Output for Last 24 Hours 08/03/23 08/04/23 08/05/23 23:59 23:59 23:59 Intake Total 1080 / 1090 1218 / 1418 1160 / 1160 Output Total 450 / 685 255 / 255 Balance 630 / 405 963 / 1163 1160 / 1160 Lab / Micro Data 08/04/23 06:25 08/04/23 06:25 Physical Exam Const oriented x3 and no apparent distress Resp normal respiratory effort GI soft to palpation and non-tender Assessment & Plan Assessment/Plan (1) Cecal volvulus: PLAN: Patient is more FemoStop but she still had delusional last night. Unsure as to the cause. I will order a UA to make sure she does not have a UTI but it seems like her allergy to codeine is also confusion. I will also advance her toa regular diet. Ishaan Olson MD Pager: [facility] [address] [place] [address] [address] [place] [address] Office: 08/05/23 0817 <Electronically signed by Ishaan Olson MD> Cosigner Signature (if applicable): CC: ~ Signed ADDENDUM by CATHERINE Bustos on 08/05/23 at 1500 Addendum Awaiting urinalysis. Plan for patient to be discharged tomorrow to [facility] rehab unit. 08/05/23 1500<Electronically signed by Rain BOSE PA-C> Cosigner Signature (if applicable): cc: ~* Signed [facility] Work Phone: [phone] 131-925609-17-2023 Progress note Author Ishaan Olson [facility] August 04, 2023 9:25am Note Date/Time August 04, 2023 9:25am [facility] Medical Records Department [address] [place] [address] Progress Note - Surgery 08/04/23922 MR#: [id number] Acct: [id number] Name: PRASHANT SHEFFIELD Rep #:[id number] : 1950 73 From: Ishaan shah MD PCP: Dr. Ez Solitario MD Status:ADM IN Location: [place] [id number] Subjective Subjective Patient reports she had confusion overnight. She was having hallucinations. She is passing flatus Objective Data Objective Data Vital Signs: Vital Signs Temp Pulse Resp BP Pulse Ox O2 Del Method O2 Flow Rate 98.4 F 78 17 156/87 H 99 Room Air 96 08/04/23 08:40 08/04/23 08:40 08/04/23 08:40 08/04/23 08:40 08/04/23 08:40 08/04/23 08:40 08/02/23 12:19 Oxygen Flow Rate (L/min) 96 Oxygen Delivery Method Room Air Weight: 137 lb 3.204 oz Body Mass Index (BMI) 25.0 Intake & Output: Intake and Output for Last 24 Hours 08/02/23 08/03/23 08/04/23 23:59 23:59 23:59 Intake Total 3914 / 3914 1080 / 1090 868 / 868 Output Total 650 / 650 450 / 685 245 / 245 Balance 3264 / 3264 630 / 405 623 / 623 Lab / Micro Data 08/04/23 06:25 08/04/23 06:25 Labs: Laboratory Results - last 24 hr 08/04/23 06:25: WBC 4.3 L, RBC 3.43 L, Hgb 10.0 L, Hct 31.3 L, MCV 91.3, MCH 29.2, MCHC 31.9 L, RDW Std Deviation 47.8 H, RDW Coeff of Addie 14.1, Plt Count 214, MPV 11.6, Immature Gran % (Auto) 0.000, Neut % (Auto) 71.3 H, Lymph % (Auto) 11.7 L, [place] % (Auto) 13.5 H, Eos % (Auto) 3.3, Baso % (Auto) 0.2, Absolute Neuts (auto) 3.1, Absolute Lymphs (auto) 0.50 L, Nucleated RBC % 0, Diff Path Review May , Sodium 137, Potassium 4.1, Chloride 109 H, Carbon Dioxide 25.0, Anion Gap 3 L, BUN 20 H, Creatinine 0.86, Estim Creat Clear Calc 46.77, Est GFR (MDRD) Af Amer 83, Est GFR (MDRD) Non-Af 69, BUN/Creatinine Ratio23.3 H, Glucose 91, Calcium 8.9 Radiography Diagnostic Testing: Radiology Impression Elbow X-Ray 08/03/23 09:50 IMPRESSION: Negative. Electronically Signed: Arsen Jhaveri MD at 10:08 EDT , Shoulder X-Ray 08/03/23 09:50 IMPRESSION: Mild acromioclavicular hypertrophy. Electronically Signed: Arsen Jhaveri MD at 10:08 EDT , Physical Exam Const no apparent distress Resp normal respiratory effort GI soft to palpation and non-tender Assessment & Plan Assessment/Plan (1) Cecal volvulus: PLAN: Patient reports she had confusion overnight. She was having hallucinations. They did give her dose of morphine last night. I will stop hermorphine today as her pain is not severe and I will order ibuprofen and Tylenol in its place. Patient is also passing some flatus. I will start a clear liquiddiet. Ishaan Olson MD Pager: [facility] [address] [place] [address], [address] [place] [address] Office: 08/04/23924 <Electronically signed by Ishaan Olson MD> Cosigner Signature (if applicable): CC: ~ Signed [facility] Work Phone: [phone] Progress note Author Ishaan Olson [facility] August 03, 2023 9:00am Note Date/Time August 03, 2023 9:00am [facility] Medical Records Department [address] [place] [address] Progress Note - Surgery 08/03/23 0859 MR#: [id number] Acct: [id number] Name: PRASHANT SHEFFIELD Rep #:[id number] : 1950 73 From: Ishaan shah MD PCP: Dr. Ez Solitario MD Status:ADM IN Location: [address] Subjective Subjective Patient is not passing flatus yet. Objective Data Objective Data Vital Signs: Vital Signs Temp Pulse Resp BP Pulse Ox O2 Del Method O2 Flow Rate 98.7 F 89 16 136/75 H 96 Room Air 96 08/03/23 00:50 08/03/23 00:50 08/03/23 00:50 08/03/23 00:50 08/03/23 00:50 08/03/23 00:50 08/02/23 12:19 Oxygen Flow Rate (L/min) 96 Oxygen Delivery Method Room Air Weight: 137 lb 3.204 oz Body Mass Index (BMI) 25.0 Intake & Output: Intake and Output for Last 24 Hours 08/01/23 08/02/23 08/03/23 23:59 23:59 23:59 Intake Total 1220 / 1220 3914 / 3914 60 / 60 Output Total 200 / 400 650 / 650 450 / 450 Balance 1020 / 820 3264 / 3264 -390 / -390 Lab / Micro Data 08/02/23 06:35 08/02/23 06:35 Physical Exam Const oriented x3 Resp normal respiratory effort GI soft to palpation Assessment & Plan Assessment/Plan (1) S/P right hemicolectomy: PLAN: Patient appears to be doing well but she is not passing flatus yet. I advised her to let the nurses know if she starts passing flatus and I will starther on clear liquids. I will also remove her Baig and decrease her IV fluids. Ishaan Olson MD Pager: [facility] [address] [place] [address], [address] [place] [address] Office: 08/03/23 09 <Electronically signed by Ishaan Olson MD> Cosigner Signature (if applicable): CC: ~ Signed [facility] Work Phone: [phone] Progress note Author Esme Andre [facility] August 02, 2023 12:08pm Note Date/Time August 02, 2023 8:14am [facility] Medical Records Department [address] [place] [address] Progress Note - Surgery 08/02/23812 MR#: [id number] Acct: [id number] Name: PRASHANT SHEFFIELD Rep #:[id number] : 1950 73 From: Esme Andre MD PCP: Dr. Ez Solitario MD Status:ADM IN Location: [place]3 VP575-4 Subjective Subjective Patient has minimal out of NG, denies flatus, incision dressed clean dry and intact Objective Data Objective Data Vital Signs: Vital Signs Temp Pulse Resp BP Pulse Ox O2 Del Method O2 Flow Rate 99.1 F 82 18 121/65 H 95 Nasal Cannula 2 08/02/23 07:44 08/02/23 07:44 08/02/23 07:44 08/02/23 07:44 08/02/23 07:44 08/02/23 07:44 08/02/23 07:44 Oxygen Flow Rate (L/min) 2 Oxygen Delivery Method Nasal Cannula Weight: 137 lb 3.2 oz Body Mass Index (BMI) 25.0 Intake & Output: Intake and Output for Last 24 Hours 07/31/23 08/01/23 08/02/23 23:59 23:59 23:59 Intake Total 1220 / 1220 1110 / 1110 Output Total 200 / 400 500 / 500 Balance 1020 / 820 610 / 610 Lab / Micro Data 08/02/23 06:35 08/02/23 06:35 Labs: Laboratory Results - last 24 hr 08/01/23 17:10: WBC 12.1 H, RBC 4.10 L, Hgb 11.5 L, Hct 36.4 L, MCV 88.8, MCH 28.0, MCHC 31.6 L, RDW Std Deviation 45.0 H, RDW Coeff of Addie 13.8, Plt Count 261, MPV 11.4, Immature Gran % (Auto) 0.400, Neut % (Auto) 92.2 H, Lymph % (Auto) 5.1 L, [place] % (Auto) 2.1, Eos % (Auto) 0.0, Baso % (Auto) 0.2, Absolute Neuts (auto) 11.1 H, Absolute Lymphs (auto) 0.61 L, Nucleated RBC % 0, Sodium 136, Potassium 3.8, Chloride 105, Carbon Dioxide 25.0, Anion Gap 6, BUN 19 H, Creatinine 1.14 H, Est GFR (MDRD) Af Amer 60, Est GFR (MDRD) Non-Af 50 L, BUN/Creatinine Ratio 16.7, Glucose 130 H, Calcium 9.7, Total Bilirubin 0.50, AST14 L, ALT 25, Alkaline Phosphatase 79, Total Protein 7.5, Albumin 3.8, Globulin 3.7, Albumin/Globulin Ratio 1.0, Lipase 08/01/23 18:14: PT 14.0, INR 1.1, APTT 25.8, Blood Type O NEGATIVE, Antibody Screen NEGATIVE 08/01/23 19:30: Urine Color Yellow, Urine Clarity Clear, Urine pH 5.0, Ur Specific Proctor 1.020, Urine Protein 15 H, Urine Glucose (UA) Normal, Urine Ketones 15 H, Urine Occult Blood Negative, Urine Nitrite Negative, Urine Bilirubin Negative, Urine Urobilinogen Normal, Ur Leukocyte Esterase Negative, Urine RBC 0 SEEN, Urine WBC 0 SEEN, Ur Squamous Epith Cells 0-5 SEEN, Urine Bacteria 0 SEEN, Urine Mucus 1+ 08/02/23 06:35: WBC 14.9 H, RBC 3.62 L, Hgb 10.3 L, Hct 33.2 L, MCV 91.7, MCH 28.5, MCHC 31.0 L, RDW Std Deviation 47.4 H, RDW Coeff of Addie 14.0, Plt Count 249, MPV 11.8, Immature Gran % (Auto) 0.400, Neut % (Auto) 90.4 H, Lymph % (Auto) 4.5 L, [place] % (Auto) 4.6, Eos % (Auto) 0.0, Baso % (Auto) 0.1, Absolute Neuts (auto) 13.5 H, Absolute Lymphs (auto) 0.67 L, Nucleated RBC % 0, Sodium 140, Potassium 4.3, Chloride 110 H, Carbon Dioxide 27.0, Anion Gap 3 L, BUN 20 H, Creatinine 1.05 H, Estim Creat Clear Calc 38.30, Est GFR (MDRD) Af Amer 66, Est GFR (MDRD) Non-Af 55 L, BUN/Creatinine Ratio 19.0, Glucose 131 H, Calcium 8.5 Radiography Diagnostic Testing: Radiology Impression Abdomen/Pelvis CT 08/01/23 17:02 IMPRESSION: Dilated segment of bowel within the mid abdomen with associated swirling of the mesentery may be secondary to a cecal volvulus. Moderate amount of stool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 full glass of water, on an empty stomach; do NOT lie down for 30minutes. simvastatin (ZOCOR) 20 mg tablet Take 1 tablet by mouth daily at bedtime. gabapentin (NEURONTIN) 400 mg capsule Take 400 mg by mouth once daily. cyanocobalamin (VITAMIN B-12) 1,000 mcg tab Take 1 tablet by mouth once daily. citalopram hydrobromide (CELEXA) 10 mg tablet Take 1 tablet by mouth once daily. Take with 20 mg dose for total of 30mg daily, getting from Neurology at [facility] citalopram (CELEXA) 20 mg tablet Take 1 tablet by mouth daily at bedtime. Take with 10mg dose for total of 30mg daily. Per neurology at [facility] benztropine (COGENTIN) 2 mg tablet Take 1 tablet by mouth twice daily. Per Neurology at [facility] rasagiline (AZILECT) 1 mg tab Take 1 tablet by mouth once daily. Per Neurology at [facility] estradiol (ESTRACE) 0.01 % (0.1 mg/gram) vaginal cream Use 1 g vaginally twice a week. multivitamin tablet Take 1 tablet by mouth once daily. CALCIUM CARBONATE/VITAMIN D3 (CALCIUM 500 + D ORAL) Take by mouth. aspirin, enteric coated (ADULT LOW DOSE ASPIRIN) 81 mg EC tablet Take 1 tablet by mouth once daily. prednisoLONE 5 mg (21 tabs) DsPk Take 5 mg by mouth once daily. (Patient not taking: Reported on 05/02/2023) gabapentin (NEURONTIN) 400 mg capsule 1-2 tabs as needed for insomnia, Per Dr. Savage polyethylene glycol 3350 (GLYCOLAX) 17 gram/dose powder Take 17 g by mouth once daily. (Patient nottaking: Reported on 05/02/2023) No current facility-administered medications on file prior to visit. Social History Social History Tobacco Use Smoking status: Never Smokeless tobacco: Never Vaping Use Vaping Use: Never used Substance Use Topics Alcohol use: Yes Comment: approximately 1-2 beers/wine daily Drug use: No Review of Symptoms REVIEW OF SYSTEMS SEE HPI EXAM: BP 110/68 Pulse 63 Resp 16 Wt 63.5 kg (140 lb) SpO2 97% BMI 25.61 kg/m General Appearance: Well appearing, alert, in no acute distress, well-hydrated, well nourished.. Lungs: Lungs clear to auscultation. No wheezing, rhonchi, rales.. Heart: RRR without murmur, gallop, or rubs. No ectopy. Extremities: Edema: 1+ pitting edema to bilateral lower extremities, cap refill <3 seconds. Peripheral Pulses: Normal. Health Maintenance List MAMMOGRAM due on 11/04/2021 DTAP,TDAP,TD(1 - Tdap) due on 02/13/2024 SHINGRIX VACCINE(1 of 2) due on 02/13/2024 INFLUENZA(Season Ended) due on 07/19/2023 ANNUAL PCP TEAM CHRONIC DISEASE VISIT due on 02/13/2024 SERUM CREATININE due on 02/13/2024 HEMOGLOBIN/HEMATOCRIT due on 02/13/2024 BP CONTROLLED (<130/80) due on 02/13/2024 DIABETES SCREEN due on 02/12/2026 COLORECTAL CANCER SCREENING due on 02/19/2026 LIPID SCREEN due on 08/08/2027 BONE DENSITY Completed ADVANCE DIRECTIVE DISCUSSION Completed HEPATITIS C SCREENING Completed COVID-19 VACCINE Completed PNEUMOCOCCAL: 65+ Completed ASSESSMENT/PLAN: 1. Essential hypertension - ICD9: 401.9, ICD10: I10 (primary diagnosis) - Controlled - Continue current medications - Recommend home blood pressure monitoring, to bring results to next visit - Encouraged sodium restriction, DASH or Mediterranean diet - Recommend regular aerobic exercise - Discussed need for and benefit of weight loss. BMI 25.61 kg/(m^2) - ECG COMPLETE 2. Lower extremity edema - ICD9: 782.3, ICD10: R60.0 - COMP METABOLIC PANEL - NT PRO BNP - ECHO - PERFLUTREN LIPID MICROSPHERES 1.1 MG/ML INJECTION IN NS 10 ML - SODIUM CHLORIDE 0.9 % (FLUSH) INJECTION SYRINGE 3. Hypertensive heart and chronic kidney disease with heart failure and stage 1 through stage 4 chronic kidney disease, or unspecified chronic kidney disease (HCC) - ICD9: 404.91, 428.9, 585.9, ICD10: I13.0 - Controlled - Continue current medications - Recommend home blood pressure monitoring, to bring results to next visit - Encouraged sodium restriction, DASH or Mediterranean diet - Recommend regular aerobic exercise - NT PRO BNP Edna Umanzor APRN.CNP documented in this encounterK[facility]23 History of Present illness Narrative* Patti Tomas MA - 02/21/2023 1:02 PM EDT Scan on 02/19/2023 4:11 PM by External Provider: Consultation - Neurology/Neurosurgery Patti Tomas MA documented in this encounterK[facility]03-31-2023 Miscellaneous Notes* Telephone Encounter - Berlin Urrutia LPN - 02/15/2023 11:47 AM EDT Pt notified of results. Pt verbalizes understanding. Berlin Urrutia LPN * Telephone Encounter - Berlin Urrutia LPN - 02/13/2023 9:04 AM EDT Left message for pt to contact office. Berlin Urrutia LPN * Telephone Encounter - Ez Solitario MD - 02/12/2023 8:45 PM EDT Let patient know her blood sugar test was improved. Her B12 was ok. Her kidney functions and anemiaare stable. documented in this encounterK[facility]03-28-2023 Instructions* Patient Instructions* Ez Solitario MD - 02/12/2023 9:14 AM EDT Please bring in copies of your power of personal injury attorney for health care and living will. Consider getting the shingrix vaccine for the prevention of shingles from a local pharmacy. Please get labs and urine test done on or after 08/02/2023 prior to your next visit. documented in this encounterK[facility]03-28-2023 History of Present illness Narrative* Ez Solitario MD - 02/12/2023 9:00 AM EDT Chief Complaint Patient presents with: Recheck: Follow up 6 months HPI Prashant Sheffield is a 72 year old female who presents here today for Chronic Medical Conditions/6 month follow up/labs Patient is concerned with having more falls at home due to loss of balance. Patient does have walker but says when she takes about 20 steps can feel weakness in bilateral legs. Patient is doing PHYSICAL THERAPY through [facility] and not always using her walker. In factdid not use it to come into the office today. Continues to follow with Neurology 02/11/2023: Last visit: medicare wellness 08/13/2022 Patient with hx of HTN, Hyperlipidemia, elevated blood sugar, GERD, parkinson's disease with memoryloss, Anxiety with depression, alcohol use, osteoporosis as well as those reviewed and addressed below and in ROS. Past medical history, appointments, medications, allergies reviewed. Previous Medical History PAST MEDICAL HISTORY Diagnosis Date Alcohol use 02/07/2016 1-2 drinks a day. Anxiety and depression 02/07/2016 Atrophic vaginitis 06/09/2019 Dry mouth 03/26/2016 Essential hypertension 02/07/2016 Family history of colon cancer in mother 02/14/2016 Fibroid uterus 02/07/2016 Had one and never needed surgery GERD without esophagitis 02/07/2016 Lentiginous junctional nevus of back 07/11/2017 Excised 06/2017 Low serum vitamin B12 02/07/2022 Memory loss 06/01/2019 Neuro feels this is Parkinson's related. Mixed hyperlipidemia 02/07/2016 Osteopenia, senile 12/15/2019 DXA: 11/2019 Parkinson's disease (HCC) 02/07/[address] 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 Neuro feels may be anxiety related. No recurrence since (last episode was 06/2015) Previous Surgical History PAST SURGICAL HISTORY Procedure Laterality Date COLONOSCOPY 2005 COLONOSCOPY 02/20/2016 Dr. Prince, repeat 5 yrs EGD 2005 EXTRACTION, ERUPTED TOOTH OR EXPOSED ROOT (ELEVATION AND/OR FORCEPS REMOVAL) 11/18/72 LAPROSCOPIC DRAINAGE 1999 fibroid tumor STRESS ECG TREADMILL 12/23/2019 negative Family History FAMILY HISTORY Problem Relation Age of Onset Cancer Father 25 in groin area, Cervical Cancer Maternal Grandmother Colon Cancer Paternal Grandmother Diabetes Mother Hypertension Mother Patient Allergies ALLERGIES Allergen Reactions Betadine [Povidone-* Rash Codeine Intolerance "crazy dreams" does not like to take it Current Medications Current Outpatient Medications on File Prior to Visit Medication Sig alendronate (FOSAMAX) 70 mg tablet Take 1 tablet by mouth one time a week. Take with a full glass of water, on an empty stomach; do NOT lie down for 30minutes. simvastatin (ZOCOR) 20 mg tablet Take 1 tablet by mouth daily at bedtime. valsartan (DIOVAN) 160 mg tablet Take 1 tablet by mouth once daily. gabapentin (NEURONTIN) 400 mg capsule Take 400 mg by mouth once daily. omeprazole (PRILOSEC) 40 mg capsule Take 1 capsule by mouth once daily. cyanocobalamin (VITAMIN B-12) 1,000 mcg tab Take 1 tablet by mouth once daily. mometasone (ELOCON) 0.1 % cream Apply to affected area once daily. (Patient not taking: Reported on08/13/2022) prednisoLONE 5 mg (21 tabs) DsPk Take 5 mg by mouth once daily. citalopram hydrobromide (CELEXA) 10 mg tablet Take 1 tablet by mouth once daily. Take with 20 mg dose for total of 30mg daily, getting from Neurology at [facility] citalopram (CELEXA) 20 mg tablet Take 1 tablet by mouth daily at bedtime. Take with 10mg dose for total of 30mg daily. Per neurology at [facility] benztropine (COGENTIN) 2 mg tablet Take 1 tablet by mouth twice daily. Per Neurology at [facility] rasagiline (AZILECT) 1 mg tab Take 1 tablet by mouth once daily. Per Neurology at [facility] gabapentin (NEURONTIN) 400 mg capsule 1-2 tabs as needed for insomnia, Per Dr. Savage polyethylene glycol 3350 (GLYCOLAX) 17 gram/dose powder Take 17 g by mouth once daily. estradiol (ESTRACE) 0.01 % (0.1 mg/gram) vaginal cream Use 1 g vaginally twice a week. multivitamin tablet Take 1 tablet by mouth once daily. CALCIUM CARBONATE/VITAMIN D3 (CALCIUM 500 + D ORAL) Take by mouth. FERROUS SULFATE, DRIED (IRON, DRIED, ORAL) Take by mouth. aspirin, enteric coated (ADULT LOW DOSE ASPIRIN) 81 mg EC tablet Take 1 tablet by mouth once daily. No current facility-administered medications on file prior to visit. Social History Social History Tobacco Use Smoking status: Never Smokeless tobacco: Never Vaping Use Vaping Use: Never used Substance Use Topics Alcohol use: Yes Comment: approximately 1-2 beers/wine daily Drug use: No Review of Symptoms REVIEW OF SYSTEMS GENERAL: No weight loss, malaise or fevers NECK: Negative for lumps, goiter, pain and significant neck swelling RESPIRATORY: Negative for cough, hemoptysis, wheezing, COPD, dyspnea or shortness of breath CARDIOVASCULAR: Negative for chest pain, hypertension, CHF or palpitations. Thinks her legs down bythe ankles may be more swollen then usual. GI: No nausea, vomiting, or diarrhea and No frequent heartburn or reflux symptoms PSYCH: just feels occasionally anxious. Saw some of the shadow people for the first time in a few months the other night. ENDOCRINE: Negative for cold or heat intolerance, polyuria, polydipsia and goiter NEURO: No history of headaches, syncope, paralysis, seizures or increased tremors EXAM: BP 140/70 Pulse 76 Resp 16 Wt 64.9 kg (143 lb) BMI 26.16 kg/m BP 128/74 Pulse 76 Resp 16 Wt 64.9 kg (143 lb) BMI 26.16 kg/m General Appearance: Well appearing, alert, in no acute distress, well-hydrated, well nourished.. Neck: Supple, no adenopathy; thyroid symmetric, normal size, no bruits. Lungs: Lungs clear to auscultation. No wheezing, rhonchi, rales.. Heart: RRR without murmur, gallop, or rubs. No ectopy. Abdomen: Normal abdominal exam, Abdomen soft, non-tender. Bowel sounds normal. No masses, organomegaly. Extremities: No deformities, edema, skin discoloration, clubbing or cyanosis. Good capillary refill. His minimal edema at the ankles. . Musculoskeletal: No joint swelling, deformity, or tenderness. Peripheral Pulses: Normal. Neurologic: Gait abnormal due to underlying Parkinson's disease. Sensation to light touch intact.. Health Maintenance List DTAP,TDAP,TD(1 - Tdap) Never done SHINGRIX VACCINE(1 of 2) Never done COVID-19 VACCINE(3 - Booster for Moderna series) due on 04/13/2021 MAMMOGRAM due on 11/04/2021 INFLUENZA(1) due on 07/19/2022 ADVANCE DIRECTIVE DISCUSSION due on 11/18/2022 HEMOGLOBIN/HEMATOCRIT due on 08/08/2023 ANNUAL PCP TEAM CHRONIC DISEASE VISIT due on 08/13/2023 BP CONTROLLED (<130/80) due on 08/13/2023 SERUM CREATININE due on 08/24/2023 DIABETES SCREEN due on 08/24/2025 COLORECTAL CANCER SCREENING due on 02/19/2026 LIPID SCREEN due on 08/08/2027 BONE DENSITY Completed HEPATITIS C SCREENING Completed PNEUMOCOCCAL: 65+ Completed Data reviewed A/P ASSESSMENT/PLAN: 1. Essential hypertension - ICD9: 401.9, ICD10: I10 (primary diagnosis) - good control - Continue current medication(s) - Recommended regular aerobic exercise. - Recommend home blood pressure monitoring, to bring results in on next visit - Goal of BP <130/80 2. Mixed hyperlipidemia - ICD9: 272.2, ICD10: E78.2 - to be determined upon return of lab results - Encouraged following a low fat, low cholesterol diet. - Discussed the benefits of regular aerobic exercise and weight loss. - Encouraged following a low carbohydrate, healthy oil intake diet. - Continue current therapy. 3. Elevated fasting blood sugar - ICD9: 790.21, ICD10: R73.01 - awaiting labs. 4. Stage 3a chronic kidney disease (HCC) - ICD9: 585.3, ICD10: N18.31 - will await labs. 5. Parkinson's disease (HCC) - ICD9: 332.0, ICD10: G20 - management per Neuro: - advised using her walker on a regular basis to reduce risk of falls. 6. Memory loss - ICD9: 780.93, ICD10: R41.3 - management per neuro. Who's feels this is Parkinson's related. 7. Anxiety and depression - ICD9: 300.00, 311, ICD10: F41.9, F32.A - cont Celexa at 30 mg a day per Neuro. 8. GERD without esophagitis - ICD9: 530.81, ICD10: K21.9 - Continue treatment with Prilosec 40 mg QD 9. Low serum vitamin B12 - ICD9: 266.2, ICD10: E53.8 - await labs and cont replacement 10. Frequent falls - ICD9: V15.88, ICD10: R29.6 - advised using her walker on a regular basis to reduce risk of falls. - patient is doing PHYSICAL THERAPY at this time which was ordered by Neuro. 11. Advance directive discussed with patient - ICD9: V65.49, ICD10: Z71.89 - patient to bring in copies 12. Encounter for immunization - ICD9: V03.89, ICD10: Z23 - [employer] COVID-19 BIVALENT BOOSTER VACCINE, AGE 12+ YR: given Requested Prescriptions Signed Prescriptions Disp Refills valsartan (DIOVAN) 160 mg tablet 90 tablet 1 Sig: Take 1 tablet by mouth once daily. omeprazole (PRILOSEC) 40 mg capsule 90 capsule 1 Sig: Take 1 capsule by mouth once daily. F/u 6 months routine check CMP, FLP, CBC, A1c, UA, Mg and B12 prior Ez Solitario MD documented [facility] encounter[facility]-2023 Miscellaneous Notes* Telephone Encounter - Patti Tomas MA - 02/11/2023 9:26 AM EDT Patient notified and voiced understanding. Patti Tomas MA * Telephone Encounter - Ez Solitario MD - 02/11/2023 8:24 AM EDT Let patient know orders placed for non-fasting labs if able to do today. * Telephone Encounter - Louise Pemberton RN - 02/11/2023 8:13 AM EDT Patient calls and states that she has appointment with provider tomorrow 02/12/2023. Patient askingif provider wants her the get labs done before appointment? Please review and advise, Louise Pemberton RN documented in this encounterK[facility]03-27-2023 Evaluation note* Diagnosis Elevated fasting blood sugar- Primary Impaired fasting glucose Stage 3a chronic kidney disease (HCC) Low serum vitamin B12 Anemia, unspecified type Encounter for immunization- Primary Need for other specified prophylactic vaccination against single bacterial disease documented in this encounter [facility]23 Discharge summary Author Nicole Yanes [facility] January 29, 2023 2:00pm Note Date/Time January 29, 2023 1:0 6pm [facility] Physical Therapy [facility] [address] [place] [address] / REHABILITATION SERVICES DISCHARGE SUMMARY MR#: [id number] Acct: [id number] Name: PRASHANT SHEFFIELD Rep #: [id number] : 1950 72 From: Nicole Louise Referring Dr.: Dr. Elio Serrato MD Status: REG RCR Insurance: MEDICARE PART A B ANTHEM It has been my pleasure to treat PRASHANT SHEFFIELD referred by Dr. Elio Serrato MD, with the diagnosis of Parkinson's Disease for a total of 6 visit(s). Discharge Date: 01/29/23 Please see the following information for a summary of their discharge status. Subjective: Pt feels that therapy has helped in her walking and she reports thatshe is taking longer strides. She reports that she needs to stand up straighter. Sister feels that she can help her sister at home at this time % Improvement: 60 Objective/Function: FGA 9. Gait: walks with shuffled gait and does not take big steps. Would feel better if she would use the walker at all times especially when go out. VC's needed to take big steps. TUG 24.3 Goal 1:: I HEP Goal Progress: Progressing Goal 2:: Decrease fall risk by increasing FGA score (score was 7 at eval). Goal Progress: Goal Met Goal 3:: Walk with more upright posture and more heel to toe gait pattern Goal Progress: Progressing Goal 4:: Increase balance by decreasing TUG time (TUG time at the eval was 27.3 seconds) Goal Progress: Goal Met Plan: DC PT to I HEP and PD class elsewhere and sister will help with HEP and stretching at home Discharge Comments: DC PT to PD class elsewhere and sister to help at home with HEP If there are questions or concerns regarding this patient's physical therapy, please feel free to call me at [phone]. Thank you for the referral of thispatient. Sincerely, Nicole Yanes, MPT Balance/Gait/Functional tests - Balance/Special Test Scores Functional Gait Assessment Score: 9 % Disability: 70.0000 Lower Extremity Functional Score: 43 <Electronically signed by Nicole Yanes MPT> 01/29/23 1400 CC: Dr. Elio Serrato MD; Dr. Ez Solitario MD ~ Signed [facility] Work Phone: 1(891) 260-197003-13-2023 Miscellaneous Notes* Telephone Encounter - Meera Yun Ma - 01/28/2023 9:48 AM EDT Last office visit: 08/13/22 F/u scheduled: 02/12/23 Meera Yun Ma * Telephone Encounter - Jaclyn Muniz - 01/28/2023 8:34 AM EDT Patient has been identified by name and date of : Yes Requested Prescriptions Pending Prescriptions Disp Refills alendronate (FOSAMAX) 70 mg tablet 12 tablet 1 Sig: Take 1 tablet by mouth one time a week. Take with a full glass of water, on an empty stomach; do NOT lie down for 30minutes. RX INSTRUCTIONS: Patient aware RX will be sent to pharmacy. No need to notify patient. Jaclyn Muniz documented in this encounterK[facility]02-20-2023 Miscellaneous Notes* Telephone Encounter - Patti Tomas MA - 01/07/2023 1:01 PM EST Patient has been identified by name and date of : Yes Requested Prescriptions Pending Prescriptions Disp Refills simvastatin (ZOCOR) 20 mg tablet 90 tablet 3 Sig: Take 1 tablet by mouth daily at bedtime. RX INSTRUCTIONS: Patient aware RX will be sent to pharmacy. No need to notify patient. Patti Tomas MA Leonarda: 07/2022 Nov: 01/2023 Last refill: 11/2021 * Telephone Encounter - Maryana Jacob - 01/07/2023 10:13 AM EST Patient has been identified by name and date of : Yes Requested Prescriptions Pending Prescriptions Disp Refills simvastatin (ZOCOR) 20 mg tablet 90 tablet 3 Sig: Take 1 tablet by mouth daily at bedtime. RX INSTRUCTIONS: Patient aware RX will be sent to pharmacy. No need to notify patient. Maryana Jacob documented in this encounterK[facility]10-10-2022 Miscellaneous Notes* Telephone Encounter - Patti Tomas MA - 08/27/2022 10:45 AM EDT Patient has been identified by name and date of : Yes Requested Prescriptions Pending Prescriptions Disp Refills valsartan (DIOVAN) 160 mg tablet 90 tablet 1 Sig: Take 1 tablet by mouth once daily. RX INSTRUCTIONS: Patient aware RX will be sent to pharmacy. No need to notify patient. Patti Tomas MA Leonarda: 07/2022 Nov: 01/2023 Last refill; 02/2022 * Telephone Encounter - Sonia Lion Pss - 08/27/2022 10:40 AM EDT Pharmacy verified in Epic Patient has been identified by name and date of : Yes Patient aware RX will be sent to pharmacy. No need to notify patient. Patient phones for refill(s): Requested Prescriptions Pending Prescriptions Disp Refills valsartan (DIOVAN) 160 mg tablet 90 tablet 1 Sig: Take 1 tablet by mouth once daily. Date of last office visit : 08/13/2022 Date of next office visit : 02/12/2023 Last 2 Encounter Wt Readings: Date: Wt: 08/13/2022 64 kg (141 lb) 02/07/2022 64.9 kg (143 lb) Please advise. Sonia Lion Pss documented in this encounterK[facility]10-10-2022 Miscellaneous Notes* Telephone Encounter - Berlin Urrutia LPN - 08/27/2022 9:08 AM EDT Left message of same on pt's identified vm. Berlin Urrutia LPN * Telephone Encounter - Lauren Camacho PA-C - 08/27/2022 8:15 AM EDT Repeat labs are back to baseline. Lauren Camacho PA-C documented in this encounterK[facility]09-29-2022 Miscellaneous Notes* Telephone Encounter - Berlin Urrutia LPN - 08/16/2022 7:08 AM EDT Pt did bring in living will and healthcare power of personal injury attorney. These have been scanned into pt's chart. Berlin Urrutia LPN * Telephone Encounter - Gretchen Lazo LPN - 08/15/2022 11:59 AM EDT Pt called and she will bring in her living will but is requesting copies be made when she gets here. Will come today 08/15/22 before 3 or tomorrow 08/16/22 before 3. If this is not okay please let pt know. Gretchen Lazo LPN documented in this encounterK[facility]06-25-2022 Miscellaneous Notes* Telephone Encounter - ZOHREH Snyder - 05/12/2022 9:21 AM EDT Patient has been identified by name and date of : Yes Last office visit in this department: 02/07/2022 RX INSTRUCTIONS: Patient aware RX will be sent to pharmacy. No need to notify patient. Patient phones requesting refills as follows: Pending Prescriptions Disp Refills OMEPRAZOLE 40 MG CAPSULE,DELAYED RELEASE 90 capsule 3 Sig: Take 1 capsule by mouth once daily. WILL: No Labs-02/05/22 NOV-08/13/22 Please review and advise. Amita Jones PSS documented in this encounterK[facility]04-12-2022 Miscellaneous Notes* Telephone Encounter - Halle Khanna RN - 02/27/2022 9:41 AM EDT Patient has been identified by name and date of : Yes Patient phones for refill(s): Pending Prescriptions Disp Refills VALSARTAN 160 MG TABLET 90 tablet 1 Sig: Take 1 tablet by mouth once daily. WILL: No Date of last office visit in primary care: 02/07/22, NOV: 08/13/22 Last 2 Encounter Wt Readings: Date: Wt: 02/07/2022 64.9 kg (143 lb) 09/05/2021 69.9 kg (154 lb) Please advise. Thank you. Halle Khanna RN documented in this encounterK[facility]04-05-2022 Miscellaneous Notes* Telephone Encounter - Jonathon Thibodeaux - 02/20/2022 9:33 AM EDT Patient stated at this time she is not having any symptoms, no diarrhea, no change in bowel habits,rectal bleeding , constipation and no immediate family members with colon cancer, no mother, father, sister, brothe. Patient is not due till 2025. documented in this encounterK[facility]03-28-2022 History of Present illness Narrative* Mulu Ward, RT(R) - 02/12/2022 1:30 PM EDT Radiology Service Progress Note PATIENT NAME: Prashant Sheffield DATE OF SERVICE: February 12, 2022 TIME: 2:10 PM PATIENT IDENTITY VERIFICATION COMPLETED USING TWO (2) IDENTIFIERS: Name and Date of confirmedby patient verbally. FALL SCREENING: Has the patient had 2 falls in the last year or 1 fall with injury or currently using an Ambulatory Assistive Device (Walker, Cane, Wheelchair, Crutches, etc.)? Yes, Patient High Riskfor Falls What interventions were put in place to prevent falls during this visit? Increased Observations by Caregivers PATIENT GENDER DATA: Female. status: : No status: NO. PATIENT RELEVANT IMPLANT DATA REVIEWED: Not Applicable RADIOLOGY DEPARTMENT: Bone Density PERIPHERAL IV DATA: Not applicable SIGNED BY: RT Manny(R) February 12, 2022 2:10 PM documented in this encounterK[facility]03-23-2022 Instructions* Patient Instructions* Ez Solitario MD - 02/07/2022 8:38 AM EDT Please start taking Vit B12 1000 mcg one a day. Get your Moderna booster. Please get labs and urine test done on or after 07/27/2022 prior to your next visit. documented in this encounterK[facility]03-23-2022 History of Present illness Narrative* Ez Solitario MD - 02/07/2022 8:23 AM EDT Chief Complaint Patient presents with: Recheck: routine/medication HPI Prashant Sheffield is a 71 year old female who presents here today for Above Complaints. and Chronic Medical Conditions.. Patient with hx of HTN, Hyperlipidemia, elevated blood sugar, GERD, parkinson's disease with memoryloss, Anxiety with depression, alcohol use, osteoporosis as well as those reviewed and addressed below and in ROS. Patient has been doing well. Would like a handicap placard form. No new issues or concerns. Past medical history, appointments, medications, allergies reviewed. Previous Medical History PAST MEDICAL HISTORY Diagnosis Date Alcohol use 02/07/2016 1-2 drinks a day. Anxiety and depression 02/07/2016 Atrophic vaginitis 06/09/2019 Current use of proton pump inhibitor 12/06/2016 Mg checked: 05/2019 Dry mouth 03/26/2016 Essential hypertension 02/07/2016 Family history of colon cancer in mother 02/14/2016 Fibroid uterus 02/07/2016 Had one and never needed surgery GERD without esophagitis 02/07/2016 Lentiginous junctional nevus of back 07/11/2017 Excised 06/2017 Memory loss 06/01/2019 Neuro feels this is Parkinson's related. Mixed hyperlipidemia 02/07/2016 Osteopenia, senile 12/15/2019 DXA: 11/2019 Parkinson's disease (HCC) 02/07/[address] Man in [facility] Snoring Stage 3a chronic kidney disease (HCC) 01/16/2021 Transient global amnesia 12/06/2016 Had another episode 07/2017. Neuro feels may be anxiety related. No recurrence since (last episode was 06/2015) Previous Surgical History PAST SURGICAL HISTORY Procedure Laterality Date COLONOSCOPY 2005 COLONOSCOPY 02/20/2016 Dr. Pirnce, repeat 5 yrs EGD 2005 EXTRACTION, ERUPTED TOOTH OR EXPOSED ROOT (ELEVATION AND/OR FORCEPS REMOVAL) 11/18/72 LAPROSCOPIC DRAINAGE 1999 fibroid tumor STRESS ECG TREADMILL 12/23/2019 negative Family History FAMILY HISTORY Problem Relation Age of Onset Cancer Father 25 in groin area, Cervical Cancer Maternal Grandmother Colon Cancer Paternal Grandmother Diabetes Mother Hypertension Mother Patient Allergies ALLERGIES Allergen Reactions Betadine [Povidone-* Rash Codeine Intolerance "crazy dreams" does not like to take it Current Medications Current Outpatient Medications on File Prior to Visit Medication Sig simvastatin (ZOCOR) 20 mg tablet Take 1 tablet by mouth daily at bedtime. valsartan (DIOVAN) 160 mg tablet Take 1 tablet by mouth once daily. omeprazole (PRILOSEC) 40 mg capsule Take 1 capsule by mouth once daily. citalopram hydrobromide (CELEXA) 10 mg tablet Take 1 tablet by mouth once daily. Take with 20 mg dose for total of 30mg daily, getting from Neurology at [facility] citalopram (CELEXA) 20 mg tablet Take 1 tablet by mouth daily at bedtime. Take with 10mg dose for total of 30mg daily. Per neurology at [facility] benztropine (COGENTIN) 2 mg tablet Take 1 tablet by mouth twice daily. Per Neurology at [facility] rasagiline (AZILECT) 1 mg tab Take 1 tablet by mouth once daily. Per Neurology at [facility] gabapentin (NEURONTIN) 400 mg capsule 1-2 tabs as needed for insomnia, Per Dr. Bavis multivitamin tablet Take 1 tablet by mouth once daily. CALCIUM CARBONATE/VITAMIN D3 (CALCIUM 500 + D ORAL) Take by mouth. aspirin, enteric coated (ADULT LOW DOSE ASPIRIN) 81 mg EC tablet Take 1 tablet by mouth once daily. mometasone (ELOCON) 0.1 % cream Apply to affected area once daily. prednisoLONE 5 mg (21 tabs) DsPk Take 5 mg by mouth once daily. polyethylene glycol 3350 (GLYCOLAX) 17 gram/dose powder Take 17 g by mouth once daily. estradiol (ESTRACE) 0.01 % (0.1 mg/gram) vaginal cream Use 1 g vaginally twice a week. FERROUS SULFATE, DRIED (IRON, DRIED, ORAL) Take by mouth. Current Facility-Administered Medications on File Prior to Visit Medication perflutren lipid microspheres 1.3 mL in NaCl (PF) 0.9% 10 mL injection (DEFINITY) sodium chloride 0.9 % (flush) 10 mL (BD POSIFLUSH) Social History Social History Tobacco Use Smoking status: Never Smoker Smokeless tobacco: Never Used Substance Use Topics Alcohol use: Yes Comment: approximately 1-2 beers,wine daily Drug use: No Review of Symptoms REVIEW OF SYSTEMS GENERAL: No unintentional weight loss, malaise or fevers NECK: Negative for lumps, goiter, pain and significant neck swelling RESPIRATORY: Negative for cough, hemoptysis, wheezing, COPD, dyspnea or shortness of breath CARDIOVASCULAR: Negative for chest pain, increased leg swelling, hypertension, CHF or palpitations GI: No nausea, vomiting, or diarrhea and No frequent breakthrough heartburn or reflux symptoms ENDOCRINE: Negative for cold or heat intolerance, polyuria, polydipsia and goiter NEURO: No history of headaches, syncope, paralysis, seizures. Has tremors from her parkinson's : no dysuria, frequency or blood. EXAM: BP 118/74 Pulse 70 Resp 12 Wt 64.9 kg (143 lb) BMI 26.16 kg/m Last 5 Encounter Wt Readings: Date: Wt: 02/07/2022 64.9 kg (143 lb) 09/05/2021 69.9 kg (154 lb) 07/20/2021 69.9 kg (154 lb) 05/08/2021 70.4 kg (155 lb 4.8 oz) 02/03/2021 70.9 kg (156 lb 6.4 oz) General Appearance: Well appearing, alert with slight confushion, in no acute distress, well-hydrated, well nourished.. Neck: Supple, no adenopathy; thyroid symmetric, normal size, no bruits. Lungs: Lungs clear to auscultation. No wheezing, rhonchi, rales.. Heart: RRR without murmur, gallop, or rubs. No ectopy. Abdomen: Normal abdominal exam, Abdomen soft, non-tender. Bowel sounds normal. No masses, organomegaly. Extremities: No deformities, edema, skin discoloration. Peripheral Pulses: Normal. Neurologic: Gait normal. Sensation to light touch intact. 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 Health Maintenance List DTAP,TDAP,TD(1 - Tdap) Never done SHINGRIX VACCINE(1 of 2) Never done COLORECTAL CANCER SCREENING due on 02/19/2021 COVID-19 VACCINE(3 - Booster for Moderna series) due on 07/19/2021 MAMMOGRAM due on 11/04/2021 ADVANCE DIRECTIVE DISCUSSION Never done BP CONTROLLED (<130/80) due on 01/16/2022 ANNUAL PCP TEAM CHRONIC DISEASE VISIT due on 09/05/2022 SERUM CREATININE due on 02/05/2023 HEMOGLOBIN/HEMATOCRIT due on 02/05/2023 DIABETES SCREEN due on 02/05/2025 LIPID SCREEN due on 02/05/2027 BONE DENSITY Completed INFLUENZA Completed HEPATITIS C SCREENING Completed PNEUMOVAX AGE 65 AND OVER WITH 5YR LOOKBACK Completed MENINGOCOCCAL CONJUGATE Aged Out Data reviewed Component Latest Ref Rng & Units 01/01/2022 02/05/2022 WBC 3.70 - 11.00 k/uL 4.57 5.55 RBC 3.90 - 5.20 m/uL 4.27 4.11 Hemoglobin 11.5 - 15.5 g/dL 11.8 11.4 (L) Hematocrit 36.0 - 46.0 % 38.2 37.3 MCV 80.0 - 100.0 fL 89.5 90.8 MCH 26.0 - 34.0 pg 27.6 27.7 MCHC 30.5 - 36.0 g/dL 30.9 30.6 RDW-CV 11.5 - 15.0 % 13.4 13.3 Platelet Count 150 - 400 k/uL 221 236 MPV 9.0 - 12.7 fL 11.7 11.8 Neut% % 50.3 51.7 Abs Neut (ANC) 1.45 - 7.50 k/uL 2.29 2.87 Lymph% % 33.5 37.7 Abs Lymph 1.00 - 4.00 k/uL 1.53 2.09 [place]% % 10.7 7.9 Abs [place] <0.87 k/uL 0.49 0.44 Eosin% % 4.4 2.0 Abs Eosin <0.46 k/uL 0.20 0.11 Baso% % 1.1 0.5 Abs Baso <0.11 k/uL 0.05 0.03 Immature Gran % % 0.2 IMMATURE GRANS (ABS) <0.10 k/uL <0.03 NRBC /100 WBC 0.0 Absolute nRBC <0.01 k/uL <0.01 <0.01 DTYPE Auto Nucleated Reds 0 /100 WBC 0.0 Diff Type Auto Diff Protein, Total 6.3 - 8.0 g/dL 7.1 6.9 Albumin 3.9 - 4.9 g/dL 4.4 4.3 Calcium 8.5 - 10.2 mg/dL 10.0 9.6 Bilirubin, Total 0.2 - 1.3 mg/dL 0.4 0.2 Alkaline Phosphatase 34 - 123 U/L 102 89 AST 13 - 35 U/L 14 13 Glucose 74 - 99 mg/dL 108 (H) 94 BUN 7 - 21 mg/dL 14 16 Creatinine 0.58 - 0.96 mg/dL 1.19 (H) 1.17 (H) Sodium 136 - 144 mmol/L 141 139 Potassium 3.7 - 5.1 mmol/L 4.0 4.1 Chloride 97 - 105 mmol/L 105 104 CO2 22 - 30 mmol/L 26 26 Anion Gap 9 - 18 mmol/L 10 9 ALT 7 - 38 U/L 11 8 eGFR- 54 eGFR-All Other Races . 45 Color Yellow Yellow Clarity Clear Clear Glucose, Urine Negative Negative Bilirubin, Urine Negative Negative Ketones, Urine Negative Negative Specific [place], Ur 1.005 - 1.030 1.019 Hemoglobin/Blood,Ur Negative Negative pH, Urine 5.0 - 8.0 5.0 Protein, Urine Negative Negative Urobilinogen Negative Negative Nitrites Negative Negative Leukest Negative 3+ (A) WBC, Urine 0-5 /HPF >25 /HPF (A) RBC, Urine 0-3 /HPF 0-3 /HPF Bacteria None Seen /HPF Rare (A) Epithelial Cells /HPF Few Hyaline Cast 0 /LPF 4-10 /LPF (A) eGFR >=60 mL/min/1.73m 50 (L) Total Cholesterol, Nonfasting <200 mg/dL 173 159 Triglycerides, Nonfasting <150 mg/dL 79 128 HDL Cholesterol, Nonfasting >39 mg/dL 56 47 LDL Cholesterol, Nonfasting <100 mg/dL 101 (H) 86 Non HDL Cholesterol, Nonfasting <130 mg/dL 117 112 VLDL Cholesterol, Nonfasting <30 mg/dL 16 26 Total Chol/HDL Ratio, Nonfasting <5.10 mg/dL 3.09 3.38 LDL/HDL Ratio, Nonfasting <2.54 mg/dL 1.80 1.83 Hemoglobin A1C 4.3 - 5.6 % 5.8 (H) 5.9 (H) Estimated Average Glucose mg/dL 120 123 Magnesium 1.7 - 2.3 mg/dL 2.1 2.0 Vitamin B12 232-1,245 pg/mL 261 A/P ASSESSMENT/PLAN: 1. Essential hypertension - ICD9: 401.9, ICD10: I10 (primary diagnosis) - good control - Continue current medication(s) - Recommended regular aerobic exercise. - Recommend home blood pressure monitoring, to bring results in on next visit - Goal of BP <130/80 2. Mixed hyperlipidemia - ICD9: 272.2, ICD10: E78.2 - good control - Encouraged following a low fat, low cholesterol diet. - Discussed the benefits of regular aerobic exercise and weight loss. - Encouraged following a low carbohydrate, healthy oil intake diet. - Continue current therapy. 3. Elevated fasting blood sugar - ICD9: 790.21, ICD10: R73.01 - Patient to work on diet. 4. GERD without esophagitis - ICD9: 530.81, ICD10: K21.9 - Continue treatment with Prilosec 40 mg QD 5. Stage 3a chronic kidney disease (HCC) - ICD9: 585.3, ICD10: N18.31 - Stable no changes. 6. Anxiety and depression - ICD9: 300.00, 311, ICD10: F41.9, F32.A - Stable no changes. 7. Parkinson's disease (HCC) - ICD9: 332.0, ICD10: G20 - Management per Neuro 8. Memory loss - ICD9: 780.93, ICD10: R41.3 - As per #7 9. Osteopenia, senile - ICD9: 733.90, ICD10: M85.80 - Reviewed the need for Calcium and Vitamin D supplements and weight bearing exercise as tolerated - DXA-AXIAL SKELETON 10. Low serum vitamin B12 - ICD9: 266.2, ICD10: E53.8 - Patient advised to start B12 1000 mcg one a day. 11. Colon cancer screening - ICD9: V76.51, ICD10: Z12.11 - CONSULT TO GENERAL SURGERY: Dr. Prince 12. Primary ovarian failure - ICD9: 256.39, ICD10: E28.39 Check - DXA-AXIAL SKELETON F/u 6 months extensive check CMP, Lipid, UA, A1c, B12, Mg, CBC prior Ez Solitario MD documented in this encounterK[facility]03-21-2022 Miscellaneous Notes* Telephone Encounter - Meera Yun Ma - 02/05/2022 1:40 PM EDT Pt notified. Meera Yun Ma * Telephone Encounter - Ez Solitario MD - 02/05/2022 1:21 PM EDT Let patient know labs and urine studies placed. * Telephone Encounter - Mary Garza RN - 02/05/2022 8:35 AM EDT Patient has an appointment on 02/07/2022 and is asking if she should have labs drawn prior to appointment. No future orders currently. Please review and advise, Mary Garza RN documented in this encounterK[facility]03-21-2022 Evaluation note* Diagnosis Stage 3a chronic kidney disease (HCC)- Primary Mixed hyperlipidemia Essential hypertension Unspecified essential hypertension Elevated fasting blood sugar Impaired fasting glucose Medication management Encounter for long-term (current) use of other medications GERD without esophagitis Esophageal reflux documented in this encounter [place] [id number] History of Past illness Narrative* Problem Noted Date Resolved Date Neoplasm of uncertain behavior of skin of back 0 06/05/2017 12/06/2017 Overview: Upper right of mid line. documented as of this encounter (statuses as of 02/05/2022) [address]19-2017 History of Past illness Narrative* Problem Noted Date Resolved Date Neoplasm of uncertain behavior of skin of back 0 06/05/2017 12/06/2017 Overview: Upper right of mid line. documented as of this encounter (statuses as of 02/07/2022) [address]19-2017 History of Past illness Narrative* Problem Noted Date Resolved Date Neoplasm of uncertain behavior of skin of back 0 06/05/2017 12/06/2017 Overview: Upper right of mid line. documented as of this encounter (statuses as of 02/13/2022) [address]19-2017 History of Past illness Narrative* Problem Noted Date Resolved Date Neoplasm of uncertain behavior of skin of back 0 06/05/2017 12/06/2017 Overview: Upper right of mid line. documented as of this encounter (statuses as of 02/27/2022) [address]19-2017 History of Past illness Narrative* Problem Noted Date Resolved Date Neoplasm of uncertain behavior of skin of back 0 06/05/2017 12/06/2017 Overview: Upper right of mid line. documented as of this encounter (statuses as of 02/27/2022) [address]19-2017 History of Past illness Narrative* Problem Noted Date Resolved Date Neoplasm of uncertain behavior of skin of back 0 06/05/2017 12/06/2017 Overview: Upper right of mid line. documented as of this encounter (statuses as of 05/14/2022) [address]19-2017 History of Past illness Narrative* Problem Noted Date Resolved Date Neoplasm of uncertain behavior of skin of back 0 06/05/2017 12/06/2017 Overview: Upper right of mid line. documented as of this encounter (statuses as of 08/16/2022) [address]19-2017 History of Past illness Narrative* Problem Noted Date Resolved Date Neoplasm of uncertain behavior of skin of back 0 06/05/2017 12/06/2017 Overview: Upper right of mid line. documented as of this encounter (statuses as of 08/27/2022) [address]19-2017 History of Past illness Narrative* Problem Noted Date Resolved Date Neoplasm of uncertain behavior of skin of back 0 06/05/2017 12/06/2017 Overview: Upper right of mid line. documented as of this encounter (statuses as of 08/27/2022) [address]19-2017 History of Past illness Narrative* Problem Noted Date Resolved Date Neoplasm of uncertain behavior of skin of back 0 06/05/2017 12/06/2017 Overview: Upper right of mid line. documented as of this encounter (statuses as of 01/07/2023) [address]19-2017 History of Past illness Narrative* Problem Noted Date Resolved Date Neoplasm of uncertain behavior of skin of back 0 06/05/2017 12/06/2017 Overview: Upper right of mid line. documented as of this encounter (statuses as of 01/28/2023) [address]19-2017 History of Past illness Narrative* Problem Noted Date Resolved Date Neoplasm of uncertain behavior of skin of back 0 06/05/2017 12/06/2017 Overview: Upper right of mid line. documented as of this encounter (statuses as of 02/11/2023) [address]19-2017 History of Past illness Narrative* Problem Noted Date Resolved Date Neoplasm of uncertain behavior of skin of back 0 06/05/2017 12/06/2017 Overview: Upper right of mid line. documented as of this encounter (statuses as of 02/13/2023) [address]19-2017 History of Past illness Narrative* Problem Noted Date Resolved Date Neoplasm of uncertain behavior of skin of back 0 06/05/2017 12/06/2017 Overview: Upper right of mid line. documented as of this encounter (statuses as of 02/15/2023) [address]19-2017 History of Past illness Narrative* Problem Noted Date Resolved Date Neoplasm of uncertain behavior of skin of back 0 06/05/2017 12/06/2017 Overview: Upper right of mid line. documented as of this encounter (statuses as of 02/22/2023) [address]19-2017 History of Past illness Narrative* Problem Noted Date Resolved Date Neoplasm of uncertain behavior of skin of back 0 06/05/2017 12/06/2017 Overview: Upper right of mid line. documented as of this encounter (statuses as of 05/03/2023) [address]19-2017 History of Past illness Narrative* Problem Noted Date Resolved Date Neoplasm of uncertain behavior of skin of back 0 06/05/2017 12/06/2017 Overview: Upper right of mid line. documented as of this encounter (statuses as of 05/08/2023) [address]19-2017 History of Past illness Narrative* Problem Noted Date Resolved Date Neoplasm of uncertain behavior of skin of back 0 06/05/2017 12/06/2017 Overview: Upper right of mid line. documented as of this encounter (statuses as of 05/10/2023) [address]19-2017 History of Past illness Narrative* Problem Noted Date Resolved Date Neoplasm of uncertain behavior of skin of back 0 06/05/2017 12/06/2017 Overview: Upper right of mid line. documented as of this encounter (statuses as of 05/20/2023) [address]19-2017 History of Past illness Narrative* Problem Noted Date Resolved Date Neoplasm of uncertain behavior of skin of back 0 06/05/2017 12/06/2017 Overview: Upper right of mid line. documented as of this encounter (statuses as of 05/24/2023) [facility]07-19-2017 History of Past illness Narrative* Problem Noted Date Diagnosed Date Resolved Date Neoplasm of uncertain behavi or of skin of back 06/05/2017 12/06/2017 Overview: Upper right of mid line. documented as of this encounter (statuses as of 05/27/2023) [address]19-2017 History of Past illness Narrative* Problem Noted Date Diagnosed Date Resolved Date Neoplasm of uncertain behavi or of skin of back 06/05/2017 12/06/2017 Overview: Upper right of mid line. documented as of this encounter (statuses as of 05/31/2023) [address]19-2017 History of Past illness Narrative* Problem Noted Date Diagnosed Date Resolved Date Neoplasm of uncertain behavi or of skin of back 06/05/2017 12/06/2017 Overview: Upper right of mid line. documented as of this encounter (statuses as of 06/14/2023) [address]19-2017 History of Past illness Narrative* Problem Noted Date Diagnosed Date Resolved Date Neoplasm of uncertain behavi or of skin of back 06/05/2017 12/06/2017 Overview: Upper right of mid line. documented as of this encounter (statuses as of 07/15/2023) [address]19-2017 History of Past illness Narrative* Problem Noted Date Diagnosed Date Resolved Date Neoplasm of uncertain behavi or of skin of back 06/05/2017 12/06/2017 Overview: Upper right of mid line. documented as of this encounter (statuses as of 07/17/2023) [address]19-2017 History of Past illness Narrative* Problem Noted Date Diagnosed Date Resolved Date Neoplasm of uncertain behavi or of skin of back 06/05/2017 12/06/2017 Overview: Upper right of mid line. documented as of this encounter (statuses as of 07/26/2023) [facility]-19-2017 History of Past illness Narrative* Problem Noted Date Diagnosed Date Resolved Date Neoplasm of uncertain behavi or of skin of back 06/05/2017 12/06/2017 Overview: Upper right of mid line. documented as of this encounter (statuses as of 08/04/2023) [address]19-2017 History of Past illness Narrative* Problem Noted Date Diagnosed Date Resolved Date Neoplasm of uncertain behavi or of skin of back 06/05/2017 12/06/2017 Overview: Upper right of mid line. documented as of this encounter (statuses as of 08/07/2023) [address]19-2017 History of Past illness Narrative* Problem Noted Date Diagnosed Date Resolved Date Neoplasm of uncertain behavi or of skin of back 06/05/2017 12/06/2017 Overview: Upper right of mid line. documented as of this encounter (statuses as of 09/06/2023) [address]19-2017 History of Past illness Narrative* Problem Noted Date Diagnosed Date Resolved Date Neoplasm of uncertain behavi or of skin of back 06/05/2017 12/06/2017 Overview: Upper right of mid line. documented as of this encounter (statuses as of 09/10/2023) [address]19-2017 History of Past illness Narrative* Problem Noted Date Diagnosed Date Resolved Date Neoplasm of uncertain behavi or of skin of back 06/05/2017 12/06/2017 Overview: Upper right of mid line. documented as of this encounter (statuses as of 09/15/2023) [address]19-2017 History of Past illness Narrative* Problem Noted Date Diagnosed Date Resolved Date Neoplasm of uncertain behavi or of skin of back 06/05/2017 12/06/2017 Overview: Upper right of mid line. documented as of this encounter (statuses as of 09/17/2023) [address]19-2017 History of Past illness Narrative* Problem Noted Date Diagnosed Date Resolved Date Neoplasm of uncertain behavi or of skin of back 06/05/2017 12/06/2017 Overview: Upper right of mid line. documented as of this encounter (statuses as of 09/21/2023) [facility] Rain Bustos [facility] August 06, 2023 1:04pm Note Date/Time August 06, 2023 12:42pm [facility] Medical Records Department [address] [place] [address] Discharge Summary 08/06/23 1241 MR#: [id number] Acct: [id number] Name: PRASHANT SHEFFIELD Rep #:[id number] 3 : 1950 73 From: Rain BOSE PA-C PCP: Dr. Ez Solitario MD Status:ADM IN Location: [place] [address] Providers Date of Admission: 08/01/23 Primary Care Physician: Dr. Ez Solitario MD Reason For Visit: CECAL VOLVULUS Diagnosis Discharge Diagnosis (1) UTI (urinary tract infection): Status: Acute Code(s): N39.0 - Urinary tract infection, site not specified Qualifiers: Urinary tract infection type: site unspecified Hematuria presence: without hematuria Qualified Code(s): N39.0 - Urinary tract infection, site not specified Plan: Start Macrobid for antibiotics x 5 days. Will await cultures to see if antibiotics will need to be changed. (2) S/P right hemicolectomy: Status: Acute Code(s): Z90.49 - Acquired absence of other specified parts of digestive tract Plan: Continue transitional diet until follow-up with Dr. Andre No lifting greater than 10 pounds until follow-up with Dr. Andre Follow-up with Dr. Andre in 1 week Medications at Discharge Home Medications benztropine 2 mg tablet 1 mg PO BID PARKINSONS 07/20/16 simvastatin 20 mg tablet 20 mg PO QHS CHOLESTEROL 07/20/16 alendronate 70 mg tablet 70 mg PO OLMOS OSTEOPEROSIS 08/01/23 aspirin 81 mg chewable tablet 81 mg PO DAILY HEART HEALTH 08/01/23 citalopram 10 mg tablet 10 mg PO DAILY DEPRESSION 08/01/23 citalopram 20 mg tablet 20 mg PO DAILY DEPRESSION 08/01/23 melatonin 5 mg tablet 10 mg PO QHS SLEEP 08/01/23 omeprazole 40 mg capsule,delayed release 40 mg PO DAILY ACID REFLUX 08/01/23 pramipexole 0.125 mg tablet 0.125 mg PO TID PARKINSONS 08/01/23 pramipexole 0.25 mg tablet 0.25 mg PO TID PAKINSONS 08/01/23 rasagiline 1 mg tablet 1 mg PO DAILY PARKINSONS 08/01/23 valsartan 160 mg tablet 160 mg PO DAILY BLOOD PRESSURE 08/01/23 acetaminophen 500 mg tablet 1,000 mg (2 x 500 mg) PO Q8 7 days #42 tabs 08/06/23 food supplemt, lactose-reduced 0.08 gram-1.5 kcal/mL oral liquid (Ensure Plus High Protein) 120 ml PO TIDCM #0 mL 08/06/23 nitrofurantoin monohydrate/macrocrystals 100 mg capsule (Macrobid) 100 mg PO Q12H 5 days #10 caps 08/06/23 Hospital Course Operations colectomy (Open right hemicolectomy) Summary of Care Provided Minutes Spent on Discharge: 35 Hospital Course: Patient is a 73 y/o F who presented with abdominal pain, nausea and vomiting. CTscan was obtained and demonstrated a cecal volvulus. Dr. Andre performed an open right hemicolectomy on 08/01/23. Patient tolerated the procedure well. Patient's bowel function was slow to return. POD #3 patient passed flatus and a diet was started. Patient had challenges with hallucinations during the night time while in the hospital. Patient was on Morphine, which was stopped in case this was the cause of the hallucinations. Patient also had a urinalysis as she had been treated for a UTI just prior to coming into the hospital. Patient's urine was found to be positive for a urinary tract infection. She was started onZosyn on 08/05. Patient was accepted to the [facility] rehabilitationas patient has a history of Parkinson's disease and is mostly wheelchair bound. Upon discharge, patient has been having flatus and bowel movements. She has beentolerating her transitional diet. She denies any abdominal pain/discomfort. She denies nausea, vomiting. She notes overnight last night her hallucinations were better. She will continue on her transitional diet until her follow-up with Dr. Andre. She will need to follow-up with Dr. Andre in 1 week. Weight / BMI Weight Weight: 137 lb 3.204 oz Body Mass Index (BMI) 25.0 ABG / Lab / Microbiology Data 08/06/23 06:20 08/06/23 06:20 Laboratory: Laboratory Results - last 24 hr 08/04/23 06:25: Diff Path Review Reviewed 08/05/23 15:40: Urine Color Yellow, Urine Clarity Sl. Cloudy, Urine pH 5.0, Ur Specific [place]ctor 1.030, Urine Protein 30 H, Urine Glucose (UA) Normal, Urine Ketones 15 H, Urine Occult Blood 10 H, Urine Nitrite Positive H, Urine Bilirubin1 H, Urine Urobilinogen 1 H, Ur Leukocyte Esterase 500 H, Urine RBC 0-5 SEEN, Urine WBC 25- 50 SEEN, Ur Squamous Epith Cells 0-5 SEEN, Amorphous Sediment 1+ URATE, Urine Bacteria 3+, Urine Mucus 0 SEEN 08/06/23 06:20: WBC 6.8, RBC 3.18 L, Hgb 9.1 L, Hct 28.1 L, MCV 88.4, MCH 28.6, MCHC 32.4, RDW Std Deviation 45.1 H, RDW Coeff of Addie 13.9, Plt Count 279, MPV 10.1, Immature Gran % (Auto) 0.400, Neut % (Auto) 66.5, Lymph % (Auto) 19.4, [place] % (Auto) 10.2 H, Eos % (Auto) 3.2, Baso % (Auto) 0.3, Absolute Neuts (auto)4.5, Absolute Lymphs (auto) 1.33, Nucleated RBC % 0, Sodium 140, Potassium 3.5, Chloride 112 H, Carbon Dioxide 23.0, Anion Gap 5, BUN 18, Creatinine 0.74, EstimCreat Clear Calc 40.22, Est GFR (MDRD) Af Amer 100, Est GFR (MDRD) Non-Af 82, BUN/Creatinine Ratio 24.5 H, Glucose 103, Calcium 8.0 L Microbiology: Microbiology 08/05/23 15:40 Urine, Clean Catch Urine Culture - Preliminary Culture exhibits no growth. D/C Instructions Discharge Diet: - (Transitional diet) Lifting Restrictions: 10 pounds until folow-up Call your doctor if your incision/area has: Continuous Slow Oozing, Sudden Increased Bleeding, Increased Pain/ Swelling, Increased Redness, Foul Smelling Discharge and Swelling at the incision site Call your doctor if you observe: Fever of 101 or Higher Cleanse incision/area with: Soap & Water Please Follow Up With: Esme Andre MD When: Follow-up in 1 week. Call our office to schedule an appointment at [phone]. Meaningful Use Info Meaningful Use Diagnoses (Choose all that apply): None applicable Discharge Plan Admission Admit Date/Time: 08/01/23 19:05 Primary Reason for Your Visit: Cecal volvulus Attending Provider: Esme Andre Primary Care Provider: Ez Solitario Instructions Additional Instructions / Restrictions: Diet ? Start light with soups and soft bland foods. Refer to your transitional diet instruction sheet Activity ? You may drive in 5-7 days but not while taking narcotic pain medication. ? I encourage walking. You may go up steps, one at a time. ? Do not swim or use hot tubs for 2 weeks. Lifting ? You may lift up to 10 pounds for the first 2 weeks. You may advance to 20 pounds for the next 3 weeks. Dressings/Incision ? You may shower OVER your plastic dressings ? Do NOT tub bathe for 1 week ? When plastic dressings are removed, you will find steri strips. It is okay to continue showering with them in place, pat them dry. ? You may remove steri-strips after 1 week. We recommend getting them soaking wet for easier removal. Medications ? Anesthesia used during surgery and pain medications may cause constipation. I recommend initiating on the day of surgery a fiber supplement like, Metamucil, Citrucel, FiberCon, Benefiber, or a generic form of these medications. 1 heapingtablespoon in water daily. You may continue to utilize any bowel regimen or orallaxatives that you routinely take. ? As long as you are not intolerant to Tylenol, acetaminophen, ibuprofen, Motrin, Advil, Aleve, or similar medications, I would recommend transitioning tothese [id number] medicines as soon as possible instead of continued use ofnarcotic pain medication. Follow up ? You should call [facility] soon after surgery, at [phone] option 1 to make a follow up appointment for 14 days after your surgery. Transitional Diet Beverages: ? Soda (cola, diet cola, lemon-tetlin, diet lemon-tetlin, kermit alejandra, diet kermit alejandra) ? Tea (hot or iced) ? Milk (low-fat, 2%, lactose free) ? Coffee ? Juice (without pulp) ? Oral Nutrition supplement Breakfast: ? Hot cereal (oatmeal or cream of wheat) ? Scrambled eggs ? Blueberry muffin ? Cold cereal (no whole grain cereals) ? [place] (white) Lunch or Dinner: Deli Items: Hot Items: Warren sandwich Roast [place] Tuna salad (sandwich or alone) Macaroni & Cheese Egg salad (sandwich or alone) Mashed potatoes & gravy Chicken salad (sandwich or alone) Carrots Green beans Cold Sides: Soups: Cottage cheese Vegetable soup Yogurt Chicken noodle Hardboiled egg Dessert: ? Gelatin, pudding, side kick (juice slushie) Discharge Orders/Prescriptions Prescriptions: New acetaminophen 500 mg Tablet 1,000 mg PO Q8 7 Days Qty: 42 0RF Ensure Plus High Protein 0.08 gram-1.5 kcal/mL Liquid 120 ml PO TIDCM Qty: 0 0RF nitrofurantoin monohyd/m-cryst [Macrobid] 100 mg capsule 100 mg PO Q12H 5 Days Qty: 10 0RF Rx Instructions: must administer with a meal/food Continued simvastatin 20 MG tablet 20 mg PO QHS benztropine 2 MG tablet 1 mg PO BID citalopram 10 mg tablet 10 mg PO DAILY Patient Comments: TAKE ONE 10MG AND ONE 20MG TABLET TOGETHER ONCE EVERY NIGHT FOR A TOTAL DOSE OF 30MG. alendronate 70 mg tablet 70 mg PO OLMOS omeprazole 40 mg capsule,delayed release(DR/EC) 40 mg PO DAILY pramipexole 0.125 mg tablet 0.125 mg PO TID Patient Comments: STARTED ON 07-20-23 Rx Instructions: TAKE ONE 0.125MG TABLET BY MOUTH THREE TIMES A DAY FOR 14 DAYS THEN STOP. THEN TAKE ONE 0.25MG TABLET BY MOUTH FOR THREE DAYS THEREAFTER. pramipexole 0.25 mg tablet 0.25 mg PO TID Patient Comments: START DATE: 08-03-23 rasagiline 1 mg tablet 1 mg PO DAILY citalopram 20 mg tablet 20 mg PO DAILY Rx Instructions: TAKE ONE 10MG AND ONE 20MG TABLET TOGETHER ONCE EVERY NIGHT FOR A TOTAL DOSE OF 30MG. valsartan 160 mg tablet 160 mg PO DAILY melatonin 5 mg tablet 10 mg PO QHS aspirin 81 MG tablet,chewable 81 mg PO DAILY Discontinued cephalexin 500 mg capsule 500 mg PO TID Qty: 15 0RF Patient Comments: STARTED ON 07-28-23 @4PM END DATE: 08-02-23 IN THE MORNING TIME Referrals / Follow Up: Ez Solitario MD [Primary Care Provider] - Disposition Disposition (needs filled in before D/C Order can be placed): Inpatient Rehab Unit/Facility Charges/Coding Visit Charges Inpatient E&M: 69912 Disch Hosp (no charge; post-op) 08/06/23 1304 <Electronically signed by Rain BOSE PA-C> Cosigner Signature (if applicable): CC: CATHERINE Bustos; Dr. Ez Solitario MD~ Signed [facility] Work Phone: Evaluation + Plan note No data available for this section [facility] Evaluation note* Diagnosis Essential hypertension- Primary Unspecified essential hypertension Mixed hyperlipidemia Elevated fasting blood sugar Impaired fasting glucose GERD without esophagitis Esophageal reflux Stage 3a chronic kidney disease (HCC) Anxiety and depression Dysthymic disorder Parkinson's disease (HCC) Paralysis agitans Memory loss Osteopenia, senile Disorder of bone and cartilage, unspecified Low serum vitamin B12 Colon cancer screening Special screening for malignant neoplasms, colon Primary ovarian failure Other ovarian failure Medication management Encounter for long-term (current) use of other medications documented in this encounter [facility] note* Diagnosis Osteopenia, senile Disorder of bone and cartilage, unspecified Primary ovarian failure Other ovarian failure documented in this encounter [facility] noteNo assessment information [facility] Work Phone: Evaluation note* Diagnosis Essential hypertension- Primary Unspecified essential hypertension Mixed hyperlipidemia Elevated fasting blood sugar Impaired fasting glucose Stage 3a chronic kidney disease (HCC) Parkinson's disease (HCC) Paralysis agitans Memory loss Anxiety and depression Dysthymic disorder GERD without esophagitis Esophageal reflux Low serum vitamin B12 Frequent falls Personal history of fall Advance directive discussed with patient Other specified counseling Encounter for immunization Need for other specified prophylactic vaccination against single bacterial disease Medication management Encounter for long-term (current) use of other medications [facility] Diagnosis Essential hypertension- Primary Unspecified essential hypertension Lower extremity edema Edema Hypertensive heart and chronic kidney disease with heart failure and stage 1 through stage 4 chronic kidney disease, or unspecified chronic kidney disease (HCC) [facility]* Diagnosis Peripheral edema- Primary Edema Leg swelling Swelling of limb [facility] Diagnosis Medication management- Primary Encounter for long-term (current) use of other medications Essential hypertension Unspecified essential hypertension [facility]* Diagnosis Parkinson's disease (HCC)- Primary Paralysis agitans Mobility impaired Other ill-defined conditions Falls frequently Personal history of fall Driving safety issue Other specified personal history presenting hazards to health [facility] Diagnosis Onset Date Resolution Status Cecal volvulus acute [facility] Work Phone: Evaluation note* Diagnosis Onset Date Resolution Status Cecal volvulus acute S/P right hemicolectomy acut e UTI (urinary tract infection) acute [facility] Work Phone: Evaluation note* Diagnosis Anxiety with depression- Primary 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 Other postprocedural status Essential hypertension Unspecified essential hypertension Parkinson's disease with dyskinesia, unspecified whether manifestations fluctuate Mobility impaired Other ill-defined conditions [facility]* Diagnosis Cecal volvulus (HCC)- Primary Volvulus Vaginal discharge Leukorrhea, not specified as infective Encounter for immunization Need for other specified prophylactic vaccination against single bacterial disease Anemia, unspecified type Stage 3a chronic kidney disease (HCC) Other general symptoms and signs Anxiety and depression Dysthymic disorder [facility]* Diagnosis Parkinson's disease, unspecified whether dyskinesia present, unspecified whether manifestations fluctuate- Primary [facility]* Diagnosis Iron deficiency anemia, unspecified iron deficiency anemia type [facility]* Diagnosis GERD without esophagitis- Primary Esophageal reflux Iron deficiency anemia, unspecified iron deficiency anemia type [facility]* Diagnosis Encounter for screening mammogram for breast cancer [facility]* Diagnosis Medicare annual wellness visit, subsequent- Primary Routine general medical examination at a health care facility Iron deficiency anemia, unspecified iron deficiency anemia type Parkinson's disease without fluctuating manifestations, unspecified whether dyskinesia present Stage 3a chronic kidney disease (HCC) Anxiety and depression Dysthymic disorder Essential hypertension Unspecified essential hypertension Mixed hyperlipidemia GERD without esophagitis Esophageal reflux Advance directive discussed with patient Other specified counseling Medication management Encounter for long-term (current) use of other medications S/P right hemicolectomy Other postprocedural status Low serum vitamin B12 Elevated hemoglobin A1c Other abnormal blood chemistry Protein-calorie malnutrition, unspecified severity (HCC) Hypertensive heart and chronic kidney disease with heart failure and stage 1 through stage 4 chronic kidney disease, or unspecified chronic kidney disease (HCC) Dementia in other diseases classified elsewhere, mild, with anxiety (HCC) [facility]* Diagnosis Osteopenia, senile- Primary Disorder of bone and cartilage, unspecified [facility] Diagnosis Elevated hemoglobin A1c- Primary Other abnormal blood chemistry Mixed hyperlipidemia Essential hypertension Unspecified essential hypertension GERD without esophagitis Esophageal reflux Stage 3a chronic kidney disease (HCC) Anxiety and depression Dysthymic disorder Anemia, unspecified type Parkinson's disease, unspecified whether dyskinesia present, unspecified whether manifestations fluctuate (HCC) Memory loss Low serum vitamin B12 Advance directive discussed with patient Other specified counseling Muscle spasm of left lower extremity Medication management Encounter for long-term (current) use of other medications Iron deficiency anemia, unspecified iron deficiency anemia type Dementia in other diseases classified elsewhere, mild, 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) [facility] Diagnosis Left leg pain- Primary Pain in limb Encounter for immunization Need for other specified prophylactic vaccination against single bacterial disease [facility] Diagnosis Left leg pain Pain in limb [facility] Diagnosis Acute midline low back pain without sciatica- Primary [facility]* Diagnosis Encounter for screening mammogram for breast cancer [facility]* Diagnosis Medicare annual wellness visit, subsequent- Primary Routine general medical examination at a health care facility Advance directive discussed with patient Other specified counseling Mixed hyperlipidemia Essential hypertension Unspecified essential hypertension Hypertensive heart and chronic kidney disease with heart failure and stage 1 through stage 4 chronic kidney disease, or unspecified chronic kidney disease (HCC) 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) GERD without esophagitis Esophageal reflux Alcohol use Stage 3a chronic kidney disease (HCC) Elevated hemoglobin A1c Other abnormal blood chemistry Low serum vitamin B12 Iron deficiency anemia, unspecified iron deficiency anemia type Memory loss Mobility impaired Other ill-defined conditions Falls frequently Personal history of fall Atrophic vaginitis Postmenopausal atrophic vaginitis Parkinson's disease, unspecified whether dyskinesia present, unspecified whether manifestations fluctuate ([facility] Urine frequency Urinary frequency Asymptomatic menopause documented in this encounter [facility]* Diagnosis Asymptomatic menopause documented in this encounter [facility] note* Diagnosis Encounter for screening mammogram for breast cancer documented in this encounter [facility] note* Diagnosis Traumatic ecchymosis of right lower leg, initial encounter- Primary documented in this encounter [facility] note* Diagnosis Onset Date Resolution Status Admit Date Generalized muscle weakness acute July 07, 2025 11:49am History of Parkinson disease acute July 07, 2025 11:49am Unable to walk acute June 11:49am [facility] Work Phone: History and physical note Author Esme Andre [facility] August 01, 2023 7:05pm Note Date/Time August 01, 2023 6:12pm [facility] Medical Records Department [address] [place] [address] H&P Exam - Surgical 08/01/23 1811 MR#: [id number] Acct: [id number] Name: PRASHANT SHEFFIELD Rep #:[id number] 2 : 1950 73 From: Esme Andre MD PCP: Dr. Ez Solitario MD Status:[facility] Location: [place] [address]-1 HPI - General General Date of Service: 08/01/23 HPI Narrative PRASHANT SHEFFIELD, is a 73 F who presents due to abdominal pain and nausea vomiting today. Patient has a past medical history for Parkinson's and does mostly use awheelchair and occasionally has issues with dysphagia and does not use a straw due to this and mostly just soft foods no issues with thin liquids though per patient and her sister who is with her in the ER. Patient was able to eat okay last night with no nausea no vomiting but did complain of some abdominal pain later at night. However today she was having nausea and vomiting only unable tokeep food down. CT abdomen pelvis was consistent with a cecal volvulus. Patient is never had previous abdominal surgeries. Patient does currently live alone. Patient white blood count is 12.1. Patient was given Zosyn IV in the ERand also NG was placed as well as a Baig. Patient was recently in at the ER due to scalp laceration as she fell last Saturday, which was stapled. [facility] Medical History Parkinson disease Home Medications benztropine 2 mg tablet 1 mg PO BID PARKINSONS 07/20/16 [History Last Taken 08/01/23] simvastatin 20 mg tablet 20 mg PO QHS CHOLESTEROL 07/20/16 [History Last Taken 07/31/23] cephalexin 500 mg capsule 500 mg PO TID ANTIBIOTIC #15 caps 07/28/23 [Rx Last Taken 07/31/23] alendronate 70 mg tablet 70 mg PO OLMOS OSTEOPEROSIS 08/01/23 [History Last Taken 07/28/23] aspirin 81 mg chewable tablet 81 mg PO DAILY HEART HEALTH 08/01/23 [History Last Taken 08/01/23] citalopram 10 mg tablet 10 mg PO DAILY DEPRESSION 08/01/23 [History Last Taken 08/01/23] citalopram 20 mg tablet 20 mg PO DAILY DEPRESSION 08/01/23 [History Last Taken 08/01/23] melatonin 5 mg tablet 10 mg PO QHS SLEEP 08/01/23 [History Last Taken 07/31/23] omeprazole 40 mg capsule,delayed release 40 mg PO DAILY ACID REFLUX 08/01/23 [History Last Taken 08/01/23] pramipexole 0.125 mg tablet 0.125 mg PO TID PARKINSONS 08/01/23 [History Last Taken 08/01/23] pramipexole 0.25 mg tablet 0.25 mg PO TID parkinsons 08/01/23 [History Last Taken Unknown] rasagiline 1 mg tablet 1 mg PO DAILY PARKINSONS 08/01/23 [History Last Taken 08/01/23] valsartan 160 mg tablet 160 mg PO DAILY BLOOD PRESSURE 08/01/23 [History Last Taken 08/01/23] Allergy/AdvReac Type Severity Reaction Status Date / Time codeine AdvReac "CRAZY Verified 08/01/23 16:52 DREAMS" DOES NOT LIKE TO TAKE IT Social History Smoking Status: Never smoker Vital Signs Vital Signs Vital Signs: 08/01/23 16:50 Temperature 96.9 F L Temperature Source Temporal Pulse Rate 78 Respiratory Rate 18 Blood Pressure 137/72 H Blood Pressure Mean 93 Pulse Ox 97 Oxygen Delivery Method Room Air Physical Exam Narrative NG in place Const alert, oriented x3 and no apparent distress HEENT normocephalic HEENT Narrative: Frontal scalp with carmelina?fall last Saturday Resp normal respiratory effort Cardio regular rate GI soft to palpation; Negative for non-distended Palpation: tender other (Right mid abdomen, no peritoneal signs); Negative for guarding Extremity no clubbing, cyanosis or edema Neuro moves all extremities Psych mental status grossly normal Results Lab / Micro Data 08/01/23 17:10 08/01/23 17:10 Labs: Laboratory Results - last 24 hr 08/01/23 17:10: WBC 12.1 H, RBC 4.10 L, Hgb 11.5 L, Hct 36.4 L, MCV 88.8, MCH 28.0, MCHC 31.6 L, RDW Std Deviation 45.0 H, RDW Coeff of Addie 13.8, Plt Count 261, MPV 11.4, Immature Gran % (Auto) 0.400, Neut % (Auto) 92.2 H, Lymph % (Auto) 5.1 L, [place] % (Auto) 2.1, Eos % (Auto) 0.0, Baso % (Auto) 0.2, Absolute Neuts (auto) 11.1 H, Absolute Lymphs (auto) 0.61 L, Nucleated RBC % 0, Sodium 136, Potassium 3.8, Chloride 105, Carbon Dioxide 25.0, Anion Gap 6, BUN 19 H, Creatinine 1.14 H, Est GFR (MDRD) Af Amer 60, Est GFR (MDRD) Non-Af 50 L, BUN/Creatinine Ratio 16.7, Glucose 130 H, Calcium 9.7, Total Bilirubin 0.50, AST14 L, ALT 25, Alkaline Phosphatase 79, Total Protein 7.5, Albumin 3.8, Globulin 3.7, Albumin/Globulin Ratio 1.0, Lipase 23 Radiology Impression Abdomen/Pelvis CT 08/01/23 17:02 IMPRESSION: Dilated segment of bowel within the mid abdomen with associated swirling of the mesentery may be secondary to a cecal volvulus. Moderate amount of stool throughout the colon. Electronically Signed: Grace Donohue MD at 17:47 EDT , Assessment & Plan Assessment/Plan (1) Cecal volvulus: PLAN: Plan Plan for exploratory laparotomy, bowel resection due to cecal volvulus. Discussand reviewed CT abdomen pelvis personally and with the patient and her sister. Discussed the procedure including but not limited to risk of bleeding, infection, injury to another organ, and anesthesia. Patient and her sister had no further question this time. Did discuss with patient and her sister that requested full code-- intubation and CPR Esme Andre M.D. Pager: [phone] [facility] [address] [place] [address], [address] [place] [address] Office: [phone] 08/01/231904 <Electronically signed by Esme Andre MD> Cosigner Signature (if applicable): CC: Dr. Ez Solitario MD; Dr. Esme Andre MD~ Signed [facility] Work Phone: History and physical note Author Davin Kirkland [facility] Note Date/Time July 07, 2025 12 :23pm [facility] Medical Records Department [address] [place] [address] H&P Exam - Hospitalist 07/07/25 1158 MR#: [id number] Acct: [id number] Name: PRASHANT SHEFFIELD Rep #:[id number] 7 : 1950 75 From: Davin Kirkland MD PCP: Dr. Ez Solitario MD Status:ADM ROXIE Location: [facility] [id number] HPI - General General Date of Admission: 07/07/25 Date of Service: 07/07/25 Chief Complaint: Generalized weakness HPI Narrative PRASHANT SHEFFIELD, is a 75 F with past medical history significant for Parkinson's disease resident [facility] who was brought to the emergency department with generalized weakness. Per patient she recently had medication adjustment mainly for anxiety since then she has developed progressive generalized weakness. Patient also complains of muscle aches and difficulty with both handgrips. Workup in the ED came back unremarkable. Patient admittedto regular nursing floor for subsequent eval with consultation placed to PT/OT/SW [facility] Medical History Dysphagia History of 1 Parkinson disease Alcohol use Dyslipidemia Hypertension Anxiety and depression GERD without esophagitis Parkinsons disease Home Medications ?Medication ?Instructions ?Recorded ?Last Taken ?Type benztropine 2 mg tablet 1 mg PO BID PARKINSONS 07/2008/06/23 08:10 History 1 mg simvastatin 20 mg tablet 20 mg PO QHS CHOLESTEROL 01/0307/31/23 History aspirin 81 mg chewable tablet 81 mg PO DAILY HEART HEA LTH 08/01/23 08/01/23 History omeprazole 40 mg capsule,delayed 40 mg PO DAILY ACID R EFLUX 08/01/23 08/01/23 History release pramipexole 0.25 mg tablet 0.25 mg PO TID PAKINSONS Unknown History rasagiline 1 mg tablet 1 mg PO DAILY PARKINSONS 08/01/23 History valsartan 160 mg tablet 160 mg PO DAILY BLOOD PRESSU RE 08/01/23 08/01/23 History acetaminophen 500 mg tablet 1,000 mg (2 x 500 mg) PO Q 8 PRN 08/20/23 Unknown Rx pain #1 TAB alendronate 70 mg tablet 70 mg PO OLMOS osteoporosis #1 TAB 08/20/23 07/28/23 Rx bisacodyl 10 mg rectal suppository 10 mg VT .PRN X 1 P RN Constipation 08/20/23 Unknown Rx #1 ea buspirone 5 mg tablet 5 mg PO TID #1 TAB 08/20/23 Unknown Rx citalopram 20 mg tablet 20 mg PO DAILY DEPRESSION #1 TAB 08/20/23 08/01/23 Rx loperamide 2 mg capsule 2 mg PO Q6H PRN PRN Diarrhea #1 cap 08/20/23 Unknown Rx melatonin 3 mg tablet 3 mg PO QHS #1 TAB 08/20/23 Unknown Rx metoprolol tartrate 25 mg tablet 12.5 mg (1/2 x 25 mg) PO BID #1 TAB 08/20/23 Unknown Rx benztropine 1 mg tablet 1 mg PO BID 07/07/25 Unknown History estradiol 0.01% (0.1 mg/gram) 1 g vaginal .QMOTH 07/07 Unknown History vaginal cream folic acid 1 mg tablet 1 mg PO DAILY 07/07/25 Unkno wn History rotigotine 2 mg/24 hour 1 patch topical QHS 07/07/25 Unknown History transdermal 24 hour patch (Neupro) Allergy/AdvReac Type Severity Reaction Status Date / Time codeine AdvReac "CRAZY Verified 09/03/23 13:40 DREAMS" DOES NOT LIKE TO TAKE IT Family History Father , at 51 YOA due to PA CAD (coronary artery disease) Mother , she at 58 YOA following CABG CAD (coronary artery disease) Sister Hypertension Surgical History History of tubal ligation S/P right hemicolectomy Social History household members: none housing: apartment number of children: 2 current occupational status: retired Smoking Status: Never smoker alcohol intake: current alcohol intake frequency: other Alcohol type: wine details: She does not drink often and she has at most 1 glass of wine a day substance use type: does not use ROS ROS Narrative GENERAL: denies fever, chills, night sweats, weight loss, anorexia HEENT: denies headache, sinus congestion, or drainage, dysphagia RESPIRATORY: denies cough, sputum production, shortness of breath, dyspnea on exertion CARDIAC: denies chest pain, palpitations, orthopnea, PND GASTROINTESTINAL: denies abdominal pain, nausea, vomiting, melena, GENITOURINARY: denies dysuria, urgency, frequency, heamaturia EXTREMITY: denies swelling MUSCULOSKELETAL: Muscle aches NEUROLOGIC: denies focal numbness, weakness, tingling HEMATOLOGIC: denies easy bruising and/or hemorrhage INTEGUMENT: denies rashes PSYCHIATRIC: denies suicidal or homicidal ideation Vital Signs Vital Signs Vital Signs: 07/07/25 09:30 07/07/25 09:34 07/07/25 09:34 Temperature 97.7 F L Temperature Source Oral Pulse Rate 88 Respiratory Rate 18 Respiratory Pattern Normal Blood Pressure 174/84 H Blood Pressure Mean 114 Pulse Ox 100 Oxygen Delivery Method Room Air 07/07/25 11:30 Temperature Temperature Source Pulse Rate 83 Respiratory Rate 19 H Respiratory Pattern Blood Pressure 162/66 H Blood Pressure Mean 98 Pulse Ox 99 Oxygen Delivery Method Room Air Weight Weight: 61.8 kg Body Mass Index (BMI) 24.9 Physical Exam Narrative GENERAL: cooperative HEENT: Atraumatic; normocephalic EYES; Anicteric, Normal Conjunctiva NECK; supple, normal thyroid, RESPIRATORY: Diminished to auscultation CARDIOVASCULAR: Regular S1 S2, GI: soft, normoactive bowel sounds, : No Renal angle tenderness; EXTREMITIES: No edema, no clubbing, MUSCULOSKELETAL: no muscle wasting NEURO: Awake; no lateralizing signs. SKIN: No Rash PSYCH; Flat affect Results Lab / Micro Data 07/07/25 10:07 07/07/25 10:07 Labs: Laboratory Results - last 24 hr 07/07/25 10:05: Urine Color Yellow, Urine Clarity Clear, Urine pH 6.0, Ur Specific Proctor 1.010, Urine Protein 30 H, Urine Glucose (UA) Normal, Urine Ketones Negative, Urine Occult Blood Negative, Urine Nitrite Negative, Urine Bilirubin Negative, Urine Urobilinogen Normal, Ur Leukocyte Esterase Negative, Urine RBC 0 SEEN, Urine WBC 0 SEEN, Ur Squamous Epith Cells 0 SEEN, Urine Bacteria 0 SEEN, Urine Mucus 0 SEEN 07/07/25 10:07: WBC 5.3, RBC 3.85 L, Hgb 11.1 L, Hct 34.7 L, MCV 90.1, MCH 28.8,MCHC 32.0, RDW Std Deviation 44.1 H, RDW Coeff of Addie 13.4, Plt Count 239, MPV 10.7, Immature Gran % (Auto) 0.400, Neut % (Auto) 66.1, Lymph % (Auto) 22.8, [place] % (Auto) 8.3, Eos % (Auto) 1.5, Baso % (Auto) 0.9, Absolute Neuts (auto) 3.5, Absolute Lymphs (auto) 1.21, Nucleated RBC % 0, Sodium 135, Potassium 4.2, Chloride 99, Carbon Dioxide 23.7, Anion Gap 12, BUN 20 H, Creatinine 1.03, EstimCreat Clear Calc 41.44 L, Est GFR (MDRD) Non-Af 57 L, BUN/Creatinine Ratio 19.1,Glucose 112 H, Calcium 9.7 Rhythm Strip Rhythm Strip: Sinus Rhythm Rate: 80 Ectopy: None Imaging Radiology Impression Chest X-Ray 07/07/25 09:51 IMPRESSION: There is a 0.6 cm nodular density in the right upper lung with overlying rib andscapula. Chest CT correlation is recommended. Reading [facility] Assessment & Plan Assessment/Plan (1) Generalized muscle weakness: PLAN: Plan PRASHANT SHEFFIELD, is a 75 F with past medical history significant for Parkinson's disease resident [facility] who was brought to the emergency department with generalized weakness. Per patient she recently had medication adjustment mainly for anxiety since then she has developed progressive generalized weakness. Patient also complains of muscle aches and difficulty with both handgrips. Workup in the ED came back unremarkable. Patient admittedto regular nursing floor for subsequent eval with consultation placed to PT/OT/SW Physical debility ? Patient has underlying Parkinson disease contributing to her symptoms. Patient has been admitted to a regular nursing floor requested for PT/OT eval and outreach and education social worker to assist with discharge planning. With patient also complaining of muscle aches decision was made to hold patient's simvastatin 2. Myalgia ? Ordered ESR held patient simvastatin 3. Dyslipidemia ? Patient is on simvastatin held given above reasons 4. Parkinson's disease ? Did continue patient antiparkinsonian medication 5. GERD ? Patient is on omeprazole will continue 6. Depression with anxiety ? Patient is on citalopram as well as buspirone plan is to continue with currentregimen. Patient did ask for Ativan advised against benzos 7. Hypertension ? Blood pressure control not optimal, home medications continued with dose adjustment as needed, also added hydralazine as needed. If blood pressure greater than 160 8. DVT prophylaxis ? On enoxaparin 9. Anemia ? Secondary to anemia of chronic disorder, monitoring H&H with plans to transfuse if hemoglobin falls below 7 or patient is deemed to be symptomatic 10. DVT prophylaxis ? On enoxaparin Time spent in the patient's overall evaluation,decision-making process, review of diagnostic data, adjustment of management, discussion with other providers, nursing nursing and ancillary staff involved in patient's care documentation, 60Minutes Advance planning; did discuss with the patient and family (her sister) regarding advanced directives as well as CODE STATUS. Did explain the various scenarios involved ( FULL CODE, DNR CCA, DNR CCA with no intubation, and DNR CC and what each meant) patient elected to be DNR CCA no intubation. Order was placed. Time spent on discussion 16 minutes. Charges/Coding Multi Select Codes Visit Charges Visit Charges: 62508 Init Hosp L2 Hospitalists' Procedures Procedures: 71239 Advncd Care Plan 30 Min 07/07/25 1223 <Electronically signed by Davin Kirkland MD> Cosigner Signature (if applicable): CC: Dr. Davin Kirkland MD; Dr. Ez Solitario MD~ Signed [facility] Work Phone: Hospital Discharge instructions No data available for this section [facility] Progress note No data available for this section [facility] Reason for referral (narrative)* Outpatient Procedure (Routine) - Authorized Specialty Diagnoses / Procedures Referred By Contac t Referred To [facility] Diagnoses Lower extremity edema Procedures ECHO ECHO TTHRC R-T 2D W/WOM-MODE COMPL SPEC&COLR D Edna Umanzor, RECONSIGNMENT CLERK.KNOCKDOWN MAN [address] [place] [address] [facility] [place] [address] [place] [address] Referral ID Status Reason Start Date Expiration Date Visits Requested Visits Authorized [id number] Authorized Auto-Generat ed Referral 05/02/2023 05/01/2024 1 1 * Outpatient Procedure (Routine) - Closed Specialty Diagnoses / Procedures Referred By Contac t Referred To Contact [facility] Diagnoses Essential hypertension Procedures ECG COMPLETE ECG ROUTINE ECG W/LEAST 12 LDS W/I&R Edna Umanzor APRN.CNP [address] [place] [address] [address] Referral ID Status Reason Start Date Expiration Date V isits Requested Visits Authorized [id number] Closed Auto-Generate d Referral 05/02/2023 05/01/2024 [address] [facility] for referral (narrative)* Outpatient Procedure (Routine) - Authorized Specialty Diagnoses / Procedures Referred By Contac t Referred To Contact [facility] Diagnoses Peripheral edema Leg swelling Procedures US LEG VEIN DVT TESSA VAS LAB DUP-SCAN XTR VEINS COMPLETE BILATERAL STUDY Lauren Camacho PA-C [address] [place] [address] [address] Referral ID Status Reason Start Date Expiration Date Visits Requested Visits Authorized [id number] Authorized Auto-Generat ed Referral 05/24/2023 05/23/2024 [address] [facility] for referral (narrative)* Outpatient Procedure (Routine) - Authorized Specialty Diagnoses / Procedures Referred By Contac t Referred To Contact [facility] Diagnoses Iron deficiency anemia, unspecified iron deficiency anemia type Procedures COLONOSCOPY DIAGNOSTIC COLONOSCOPY FLX DX W/COLLJ SPEC WHEN PFRMD Daren Prince MD [address] [place] [address] [facility] [address] [address] Referral ID Status Reason Start Date Expiration Date Visits Requested Visits Authorized [id number] Authorized Auto-Generat ed Referral 3 10/07/2024 1 1 * Outpatient Procedure (Routine) - Authorized Specialty Diagnoses / Procedures Referred By Star t Referred To Contact [facility] Diagnoses Iron deficiency anemia, unspecified iron deficiency anemia type Procedures EGD DIAGNOSTIC ESOPHAGOGASTRODUODENOSC OPY TRANSORAL DIAGNOSTIC Daren Prince MD [address] [place] [address] [facility] [place] [address] [place] [id number] Referral ID Status Reason Start Date Expiration Date Visits Requested Visits Authorized [id number] Authorized Auto-Generat ed Referral 3 10/07/2024 [address] [facility] for referral (narrative)* Diagnostic Procedure Only (Routine) - Pending Review Specialty Diagnoses / Procedures Referred By Star t Referred To Contact [facility] Diagnoses Encounter for screening mammogram for breast cancer Procedures SONIA SCREENING SCREENING MAMMOGRAPHY BI 2-[place] [address] [place] [address] [facility] [address] [place] [phone] Referral ID Status Reason Start Date Expiration Date Visits Requested Visits Authorized [id number] Pending Review Auto-Generat ed Referral 10/23/2023 11/21/2024 1 1 [facility] for referral (narrative)* Diagnostic Procedure Only (Routine) - Closed Specialty Diagnoses / Procedures Referred By Luis Manuelac t Referred To Contact [facility] Diagnoses Left leg pain Procedures XR HIP GENERAL 3V PELV/AP/LAT LEFT RADEX HIP UNILATERAL WITH PELVIS 2-3 VIEWS Edna Umanzor APRN.KNOCKDOWN MAN [address] [place] [address] [place] [address] Referral ID Status Reason Start Date Expiration Date V isits Requested Visits Authorized [id number] Closed Auto-Generate d Referral 08/20/2024 09/19/2025 1 1 * Diagnostic Procedure Only (Routine) - Closed Specialty Diagnoses / Procedures Referred By Star louise Referred To Contact [facility] Diagnoses Left leg pain Procedures XR LUMBAR PARS DEFECT 4V AP/LAT/BOTH OBL RADEX SPINE LUMBOSACRAL MINIMUM 4 VIEWS Edna Umanzor APRN.CNP [address] [place] [address] [place] [address] Referral ID Status Reason Start Date Expiration Date V isits Requested Visits Authorized [id number] Closed Auto-Generate d Referral 08/20/2024 09/19/2025 [address] [facility] for referral (narrative)* Diagnostic Procedure Only (Routine) - New Request Specialty Diagnoses / Procedures Referred By Star louise Referred To Contact [facility] Diagnoses Encounter for screening mammogram for breast cancer Procedures SONIA SCREENING W GERMAN SCREENING DIGITAL BREAST TOMOSYNTHESIS BI SCREENING MAMMOGRAPHY BI 2-VIEW BREAST INC CAD Ez Solitario MD [address] [place] [address] [facility] [address] [place] [address] Referral ID Status Reason Start Date Expiration Date Visits Requested Visits Authorized [id number] New Request Auto-Generat ed Referral 10/30/2025 [address] [facility] for referral (narrative)No reason for referral [facility] Work Phone: Reason for visit Narrative* Diagnostic Procedure Only (Routine) - Closed Specialty Diagnoses / Procedures Referred By tSar louise Referred To Contact [facility] Diagnoses Left leg pain Procedures XR HIP GENERAL 3V PELV/AP/LAT LEFT RADEX HIP UNILATERAL WITH PELVIS 2-3 VIEWS Edna Umanzor APRN.CNP [address] [place] [address] [place] [address] Referral ID Status Reason Start Date Expiration Date V isits Requested Visits Authorized [id number] Closed Auto-Generate d Referral 08/20/2024 09/19/2025 [address] [facility] for visit Narrative* Diagnostic Procedure Only (Routine) - Closed Specialty Diagnoses / Procedures Referred By Contac t Referred To Contact [facility] Diagnoses Asymptomatic menopause Procedures DXA-AXIAL SKELETON DXA BONE DENSITY STUDY / SITES AXIAL Lauren Adame PA-C [address] [place] [address] Phone: tel: fax: [place] [address] Referral ID Status Reason Start Date Expiration Date V isits Requested Visits Authorized [id number] Closed Auto-Generate d Referral 01/11/2025 02/10/2026 [address] [facility] for visit Narrative* Diagnostic Procedure Only (Routine) - Closed Specialty Diagnoses / Procedures Referred By Contac t Referred To Contact [facility] Diagnoses Encounter for screening mammogram for breast cancer Procedures SONIA SCREENING W GERMAN SCREENING DIGITAL BREAST TOMOSYNTHESIS BI SCREENING MAMMOGRAPHY BI 2-VIEW BREAST INC CAD Ez Solitario MD [address] [place] [address] Phone: tel: fax: [facility] [address] [place] [address] Referral ID Status Reason Start Date Expiration Date V isits Requested Visits Authorized [id number] Closed Auto-Generate d Referral 09/30/2024 10/30/2025 1 1 [facility] Summary Purpose Family History No Family History Records Found Relationship Condition Age at Onset Recorded Date/T sushil Unknown Family History?No pe rtinent history Unknown July 20, 2016 5:37pm Relationship Condition Age at Onset Recorded Date/T sushil father Coronary artery disease Unknown mother Coronary artery disease Unknown sister Hypertension Unknown Advance Directives No Advanced Directives Records FoundDocuments on File Type Date Recorded Patient Clay Artisan Expl anation Advance Directive(s) 02/20/2016 9:06 AM Advance Directive(s) 02/17/2016 12:59 PM Documents on File Type Date Recorded Patient Clay Artisan Expl anation Advance Directive(s) 02/20/2016 9:06 AM Advance Directive(s) 02/17/2016 12:59 PM Advance Directive Response Recorded Date/ Time Advance Directives No July 7:00pm Living Will Yes July 20 7:00pm Power of Tile Presser Yes July 20, 2016 7:00pm Advance Directive Response Recorded Date/ Time Advance Directives No July 7:00pm Living Will Yes July 28, 2023 9:48am Power of Tile Presser Yes July 9:48am Name of Medical Power of Tile Presser ? July 28, 2023 9:48am Advance Directive Response Recorded Date/ Time Advance Directives No July 7:00pm Living Will No August 01, 2023 4:58pm Power of Tile Presser No July 4:58pm Name of Medical Power of Tile Presser ? July 28, 2023 9:48am Advance Directive Response Recorded Date/ Time Name of Medical Power of Tile Presser Naima Nubia August 01, 2023 11:02pm Advance Directives No July 7:00pm Living Will Yes August 01, 2023 11:02pm Power of Tile Presser Yes July 11:02pm Name of Medical Power of Tile Presser ? July 28, 2023 9:48am Advance Directive Response Recorded Date/ Time Do you have a Healthcare Power of Tile Presser? No July 07, 2025 9:34am Advance Directives No July 7:00pm Advance Directive Response Recorded Date/ Time Do you have a Healthcare Power of Tile Presser? Yes July 07, 2025 12:52pm Name of Medical Power of Tile Presser Moo Velez July 07, 2025 12:52pm Advance Directives No July 7:00pm Reason for Referral Specialty Diagnoses / Procedures Referred By Contcharles t Referred To Contact General Surgery Diagnoses Colon cancer screening Procedures CONSULT TO GENERAL SURGERY OFFICE/OUTPATIENT [facility] 60-74 MINUTES Ez Solitario MD [address] [place] [address] Referral ID Status Reason Start Date Expiration Date Visits Requested Visits Authorized [id number] Authorized PCP Requested Referral 02/07/2022 02/07/2023 1 1 Specialty Diagnoses / Procedures Referred By Star t Referred To Contact Diagnoses Vaginal discharge Procedures CONSULT TO [facility] OFFICE/OUTPATIENT [facility] 60-74 MINUTES Ez Solitario MD [address] [place] [address] Referral ID Status Reason Start Date Expiration Date Visits Requested Visits Authorized [id number] Authorized PCP Requested Referral Auto-Generate d Referral 09/25/2023 09/24/2024 1 1 Specialty Diagnoses / Procedures Referred By Contac t Referred To Contact General Surgery Diagnoses Iron deficiency anemia, unspecified iron deficiency anemia type Procedures CONSULT TO GENERAL SURGERY OFFICE/OUTPATIENT [facility] 60-74 MINUTES Ez Solitario MD [address] [place] [address] Referral ID Status Reason Start Date Expiration Date Visits Requested Visits Authorized [id number] Authorized PCP Requested Referral 10/03/2024 1 1 Specialty Diagnoses / Procedures Referred By Contac t Referred To Contact [facility] Diagnoses Acute midline low back pain without sciatica Procedures CONSULT TO PHYSICAL THERAPY PHYSICAL THERAPY EVALUATION HIGH COMPLEX 45 MINS Edna Umanzor, GENIE.KNOCKDOWN MAN [address] [place] [address] [facility] [place] [address] [place] [id number] Referral ID Status Reason Start Date Expiration Date Visits Requested Visits Authorized [id number] Authorized PCP Requested Referral Auto-Generate d Referral 08/25/2024 08/25/2025 99 99 Chief Complaint and Reason for Visit Chief Complaint PD/RX HERE Chief Complaint fall Chief Complaint fall VOLVUS VOLVUS Reason for Visit Cecal volvulus Chief Complaint fall VOLVUS CECAL VOLVULUS CECAL VOLVULUS CECAL VOLVULUS CECAL VOLVULUS CECAL VOLVULUS CECAL VOLVULUS Reason for Visit Cecal volvulus S/P right hemicolectomy UTI (urinary tract infection) Chief Complaint Admit Date GENERALIZED WEAKNESS July 07, 2025 1 1:49am GENERALIZED WEAKNESS July 07, 2025 1 1:58am Reason for Visit Admit Date Generalized muscle weakness July 07, 2025 11:49am History of Parkinson disease June 11:49am Unable to walk July 07, 2025 11 :49am Chief Complaint Admit Date GENERALIZED WEAKNESS July 07, 2025 1 1:49am GENERALIZED WEAKNESS July 07, 2025 1 1:58am GENERALIZED WEAKNESS July 08, 2025 8 :11am Additional Source Comments INFORMATION SOURCE (unrecogn ized section and content) DATE CREATED AUTHOR 02/18/2021 [facility] DATE CREATED AUTHOR AUTHOR'S ORGANIZ ATION 03/03/2024 [facility] ([place]) DATE CREATED AUTHOR AUTHOR'S ORGANIZ ATION 12/12/2024 [facility] DATE CREATED AUTHOR AUTHOR'S ORGANIZ ATION 07/09/2025 [facility] DATE CREATED AUTHOR AUTHOR'S ORGANIZ ATION 07/23/2025 [facility] Source Comments (unrecognize d section and content) In the event this informatio n is protected by the Federal Confidentiality of Alcohol and Drug Abuse Patient Records regulations: The Federal rules restrict any use of the information to criminally investigate or prosecute any alcohol or drug abuse patient.[facility] the event this information is protected by the Federal Confidentiality of Alcohol and Drug Abuse Patient Records regulations: The Federal rules restrict any use of the information to criminally investigate or prosecute any alcohol or drug abuse patient.[facility]In the event this information is protected by the Federal Confidentiality of Alcohol and Drug Abuse Patient Records regulations: The Federal rules restrict any use of the information to criminally investigate or prosecute any alcohol or drug abuse patient.[facility]In the event this information is protected by the Federal Confidentiality of Alcohol and Drug Abuse Patient Records regulations: The Federal rules restrict any use of the information to criminally investigate or prosecute any alcohol or drug abuse patient.[facility]In the event this information is protected by the Federal Confidentiality of Alcohol and Drug Abuse Patient Records regulations: The Federal rules restrict any use of the information to criminally investigate or prosecute any alcohol or drug abuse patient.[facility]In the event this information is protected by the Federal Confidentiality of Alcohol and Drug Abuse Patient Records regulations: The Federal rules restrict any use of the information to criminally investigate or prosecute any alcohol or drug abuse patient.[facility]In the event this information is protected by the Federal Confidentiality of Alcohol and Drug Abuse Patient Records regulations: The Federal rules restrict any use of the information to criminally investigate or prosecute any alcohol or drug abuse patient.[facility]In the event this information is protected by the Federal Confidentiality of Alcohol and Drug Abuse Patient Records regulations: The Federal rules restrict any use of the information to criminally investigate or prosecute any alcohol or drug abuse patient.[facility]In the event this information is protected by the Federal Confidentiality of Alcohol and Drug Abuse Patient Records regulations: The Federal rules restrict any use of the information to criminally investigate or prosecute any alcohol or drug abuse patient.[facility]In the event this information is protected by the Federal Confidentiality of Alcohol and Drug Abuse Patient Records regulations: The Federal rules restrict any use of the information to criminally investigate or prosecute any alcohol or drug abuse patient.[facility]In the event this information is protected by the Federal Confidentiality of Alcohol and Drug Abuse Patient Records regulations: The Federal rules restrict any use of the information to criminally investigate or prosecute any alcohol or drug abuse patient.[facility]In the event this information is protected by the Federal Confidentiality of Alcohol and Drug Abuse Patient Records regulations: The Federal rules restrict any use of the information to criminally investigate or prosecute any alcohol or drug abuse patient.[facility]In the event this information is protected by the Federal Confidentiality of Alcohol and Drug Abuse Patient Records regulations: The Federal rules restrict any use of the information to criminally investigate or prosecute any alcohol or drug abuse patient.[facility]In the event this information is protected by the Federal Confidentiality of Alcohol and Drug Abuse Patient Records regulations: The Federal rules restrict any use of the information to criminally investigate or prosecute any alcohol or drug abuse patient.[facility]In the event this information is protected by the Federal Confidentiality of Alcohol and Drug Abuse Patient Records regulations: The Federal rules restrict any use of the information to criminally investigate or prosecute any alcohol or drug abuse patient.[facility]In the event this information is protected by the Federal Confidentiality of Alcohol and Drug Abuse Patient Records regulations: The Federal rules restrict any use of the information to criminally investigate or prosecute any alcohol or drug abuse patient.[facility]In the event this information is protected by the Federal Confidentiality of Alcohol and Drug Abuse Patient Records regulations: The Federal rules restrict any use of the information to criminally investigate or prosecute any alcohol or drug abuse patient.[facility]In the event this information is protected by the Federal Confidentiality of Alcohol and Drug Abuse Patient Records regulations: The Federal rules restrict any use of the information to criminally investigate or prosecute any alcohol or drug abuse patient.[facility]In the event this information is protected by the Federal Confidentiality of Alcohol and Drug Abuse Patient Records regulations: The Federal rules restrict any use of the information to criminally investigate or prosecute any alcohol or drug abuse patient.[facility]In the event this information is protected by the Federal Confidentiality of Alcohol and Drug Abuse Patient Records regulations: The Federal rules restrict any use of the information to criminally investigate or prosecute any alcohol or drug abuse patient.[facility]In the event this information is protected by the Federal Confidentiality of Alcohol and Drug Abuse Patient Records regulations: The Federal rules restrict any use of the information to criminally investigate or prosecute any alcohol or drug abuse patient.[facility]In the event this information is protected by the Federal Confidentiality of Alcohol and Drug Abuse Patient Records regulations: The Federal rules restrict any use of the information to criminally investigate or prosecute any alcohol or drug abuse patient.[facility]In the event this information is protected by the Federal Confidentiality of Alcohol and Drug Abuse Patient Records regulations: The Federal rules restrict any use of the information to criminally investigate or prosecute any alcohol or drug abuse patient.[facility]In the event this information is protected by the Federal Confidentiality of Alcohol and Drug Abuse Patient Records regulations: The Federal rules restrict any use of the information to criminally investigate or prosecute any alcohol or drug abuse patient.[facility]In the event this information is protected by the Federal Confidentiality of Alcohol and Drug Abuse Patient Records regulations: The Federal rules restrict any use of the information to criminally investigate or prosecute any alcohol or drug abuse patient.[facility]In the event this information is protected by the Federal Confidentiality of Alcohol and Drug Abuse Patient Records regulations: The Federal rules restrict any use of the information to criminally investigate or prosecute any alcohol or drug abuse patient.[facility]In the event this information is protected by the Federal Confidentiality of Alcohol and Drug Abuse Patient Records regulations: The Federal rules restrict any use of the information to criminally investigate or prosecute any alcohol or drug abuse patient.[facility]In the event this information is protected by the Federal Confidentiality of Alcohol and Drug Abuse Patient Records regulations: The Federal rules restrict any use of the information to criminally investigate or prosecute any alcohol or drug abuse patient.[facility]In the event this information is protected by the Federal Confidentiality of Alcohol and Drug Abuse Patient Records regulations: The Federal rules restrict any use of the information to criminally investigate or prosecute any alcohol or drug abuse patient.[facility]In the event this information is protected by the Federal Confidentiality of Alcohol and Drug Abuse Patient Records regulations: The Federal rules restrict any use of the information to criminally investigate or prosecute any alcohol or drug abuse patient.[facility]In the event this information is protected by the Federal Confidentiality of Alcohol and Drug Abuse Patient Records regulations: The Federal rules restrict any use of the information to criminally investigate or prosecute any alcohol or drug abuse patient.[facility]In the event this information is protected by the Federal Confidentiality of Alcohol and Drug Abuse Patient Records regulations: The Federal rules restrict any use of the information to criminally investigate or prosecute any alcohol or drug abuse patient.[facility]In the event this information is protected by the Federal Confidentiality of Alcohol and Drug Abuse Patient Records regulations: The Federal rules restrict any use of the information to criminally investigate or prosecute any alcohol or drug abuse patient.[facility]In the event this information is protected by the Federal Confidentiality of Alcohol and Drug Abuse Patient Records regulations: The Federal rules restrict any use of the information to criminally investigate or prosecute any alcohol or drug abuse patient.[facility]In the event this information is protected by the Federal Confidentiality of Alcohol and Drug Abuse Patient Records regulations: The Federal rules restrict any use of the information to criminally investigate or prosecute any alcohol or drug abuse patient.[facility]In the event this information is protected by the Federal Confidentiality of Alcohol and Drug Abuse Patient Records regulations: The Federal rules restrict any use of the information to criminally investigate or prosecute any alcohol or drug abuse patient.[facility]In the event this information is protected by the Federal Confidentiality of Alcohol and Drug Abuse Patient Records regulations: The Federal rules restrict any use of the information to criminally investigate or prosecute any alcohol or drug abuse patient.[facility]In the event this information is protected by the Federal Confidentiality of Alcohol and Drug Abuse Patient Records regulations: The Federal rules restrict any use of the information to criminally investigate or prosecute any alcohol or drug abuse patient.[facility]In the event this information is protected by the Federal Confidentiality of Alcohol and Drug Abuse Patient Records regulations: The Federal rules restrict any use of the information to criminally investigate or prosecute any alcohol or drug abuse patient.[facility]In the event this information is protected by the Federal Confidentiality of Alcohol and Drug Abuse Patient Records regulations: The Federal rules restrict any use of the information to criminally investigate or prosecute any alcohol or drug abuse patient.[facility]In the event this information is protected by the Federal Confidentiality of Alcohol and Drug Abuse Patient Records regulations: The Federal rules restrict any use of the information to criminally investigate or prosecute any alcohol or drug abuse patient.[facility]In the event this information is protected by the Federal Confidentiality of Alcohol and Drug Abuse Patient Records regulations: The Federal rules restrict any use of the information to criminally investigate or prosecute any alcohol or drug abuse patient.[facility]In the event this information is protected by the Federal Confidentiality of Alcohol and Drug Abuse Patient Records regulations: The Federal rules restrict any use of the information to criminally investigate or prosecute any alcohol or drug abuse patient.[facility]In the event this information is protected by the Federal Confidentiality of Alcohol and Drug Abuse Patient Records regulations: The Federal rules restrict any use of the information to criminally investigate or prosecute any alcohol or drug abuse patient.[facility]In the event this information is protected by the Federal Confidentiality of Alcohol and Drug Abuse Patient Records regulations: The Federal rules restrict any use of the information to criminally investigate or prosecute any alcohol or drug abuse patient.[facility]In the event this information is protected by the Federal Confidentiality of Alcohol and Drug Abuse Patient Records regulations: The Federal rules restrict any use of the information to criminally investigate or prosecute any alcohol or drug abuse patient.[facility]In the event this information is protected by the Federal Confidentiality of Alcohol and Drug Abuse Patient Records regulations: The Federal rules restrict any use of the information to criminally investigate or prosecute any alcohol or drug abuse patient.[facility]In the event this information is protected by the Federal Confidentiality of Alcohol and Drug Abuse Patient Records regulations: The Federal rules restrict any use of the information to criminally investigate or prosecute any alcohol or drug abuse patient.[facility]In the event this information is protected by the Federal Confidentiality of Alcohol and Drug Abuse Patient Records regulations: The Federal rules restrict any use of the information to criminally investigate or prosecute any alcohol or drug abuse patient.[facility]In the event this information is protected by the Federal Confidentiality of Alcohol and Drug Abuse Patient Records regulations: The Federal rules restrict any use of the information to criminally investigate or prosecute any alcohol or drug abuse patient.[facility]In the event this information is protected by the Federal Confidentiality of Alcohol and Drug Abuse Patient Records regulations: The Federal rules restrict any use of the information to criminally investigate or prosecute any alcohol or drug abuse patient.[facility]In the event this information is protected by the Federal Confidentiality of Alcohol and Drug Abuse Patient Records regulations: The Federal rules restrict any use of the information to criminally investigate or prosecute any alcohol or drug abuse patient.[facility]In the event this information is protected by the Federal Confidentiality of Alcohol and Drug Abuse Patient Records regulations: The Federal rules restrict any use of the information to criminally investigate or prosecute any alcohol or drug abuse patient.[facility]In the event this information is protected by the Federal Confidentiality of Alcohol and Drug Abuse Patient Records regulations: The Federal rules restrict any use of the information to criminally investigate or prosecute any alcohol or drug abuse patient.[facility]In the event this information is protected by the Federal Confidentiality of Alcohol and Drug Abuse Patient Records regulations: The Federal rules restrict any use of the information to criminally investigate or prosecute any alcohol or drug abuse patient.[facility]In the event this information is protected by the Federal Confidentiality of Alcohol and Drug Abuse Patient Records regulations: The Federal rules restrict any use of the information to criminally investigate or prosecute any alcohol or drug abuse patient.[facility]In the event this information is protected by the Federal Confidentiality of Alcohol and Drug Abuse Patient Records regulations: The Federal rules restrict any use of the information to criminally investigate or prosecute any alcohol or drug abuse patient.[facility]In the event this information is protected by the Federal Confidentiality of Alcohol and Drug Abuse Patient Records regulations: The Federal rules restrict any use of the information to criminally investigate or prosecute any alcohol or drug abuse patient.[facility]In the event this information is protected by the Federal Confidentiality of Alcohol and Drug Abuse Patient Records regulations: The Federal rules restrict any use of the information to criminally investigate or prosecute any alcohol or drug abuse patient.[facility]In the event this information is protected by the Federal Confidentiality of Alcohol and Drug Abuse Patient Records regulations: The Federal rules restrict any use of the information to criminally investigate or prosecute any alcohol or drug abuse patient.[facility]In the event this information is protected by the Federal Confidentiality of Alcohol and Drug Abuse Patient Records regulations: The Federal rules restrict any use of the information to criminally investigate or prosecute any alcohol or drug abuse patient.[facility]In the event this information is protected by the Federal Confidentiality of Alcohol and Drug Abuse Patient Records regulations: The Federal rules restrict any use of the information to criminally investigate or prosecute any alcohol or drug abuse patient.[facility]In the event this information is protected by the Federal Confidentiality of Alcohol and Drug Abuse Patient Records regulations: The Federal rules restrict any use of the information to criminally investigate or prosecute any alcohol or drug abuse patient.[facility]In the event this information is protected by the Federal Confidentiality of Alcohol and Drug Abuse Patient Records regulations: The Federal rules restrict any use of the information to criminally investigate or prosecute any alcohol or drug abuse patient.[facility]In the event this information is protected by the Federal Confidentiality of Alcohol and Drug Abuse Patient Records regulations: The Federal rules restrict any use of the information to criminally investigate or prosecute any alcohol or drug abuse patient.[facility]In the event this information is protected by the Federal Confidentiality of Alcohol and Drug Abuse Patient Records regulations: The Federal rules restrict any use of the information to criminally investigate or prosecute any alcohol or drug abuse patient.[facility]In the event this information is protected by the Federal Confidentiality of Alcohol and Drug Abuse Patient Records regulations: The Federal rules restrict any use of the information to criminally investigate or prosecute any alcohol or drug abuse [facility] SpringfieldIn the event this information is protected by the Federal Confidentiality of Alcohol and Drug Abuse Patient Records regulations: The Federal rules restrict any use of the information to criminally investigate or prosecute any alcohol or drug abuse patient.[facility] SpringfieldIn the event this information is protected by the Federal Confidentiality of Alcohol and Drug Abuse Patient Records regulations: The Federal rules restrict any use of the information to criminally investigate or prosecute any alcohol or drug abuse patient.[facility] SpringfieldIn the event this information is protected by the Federal Confidentiality of Alcohol and Drug Abuse Patient Records regulations: The Federal rules restrict any use of the information to criminally investigate or prosecute any alcohol or drug abuse [facility] Reason for Visit (unrecogniz ed section and content) Reason Comments Patient Question Reason Comments Recheck routine/medication Reason Comments colonoscopy recall Reason Onset Date Comments Refill Request 02/27/2022 Reason Onset Date Comments Refill Request 05/12/2022 Reason Comments Living Will update Reason Comments Results Reason Onset Date Comments Refill Request 08/27/2022 Reason Onset Date Comments Refill Request 01/07/2023 Reason Onset Date Comments Refill Request 01/28/2023 Reason Comments Lab Orders Reason Comments Recheck Follow up 6 months Reason Comments Consult Reason Comments Edema Bilateral legs and f eet, 2 weeks Reason Comments Outside Neurology Reason Comments Recheck Edema lower calf and feet bilaterally Reason Onset Date Comments Refill Request 07/15/2023 Reason Onset Date Comments Refill Request 07/16/2023 Reason Comments OT Discharge OT EVAL Specialty Diagnoses / Procedures Referred By Star t Referred To Contact Occupational Therapy / OCCUPATIONAL THERAPY Diagnoses Parkinson's disease driving greg forman Procedures NEW RS OT COMM REINTEGRATION Magdalena Forman PA-C [address] [facility] [address] [place] [address] Mary You A, OT/L Referral ID Status Reason Start Date Expiration Date V isits Requested Visits Authorized [id number] Authorized 11/18/2022 11/17/2023 99 99 Reason Comments Outside [id number] Ordered Imaging Reason Comments Consult General Surgery Reason Comments Home Health Orders Reason Comments Anxiety Follow Up Discharge from SNF 1 Reason Comments Patient Update Reason Comments Addend then Fax last OV notes Reason Comments Follow Up Reason Comments Results Reason Comments Consult Iron deficiency, ane onofre Specialty Diagnoses / Procedures Referred By Contac t Referred To Contact General Surgery Diagnoses Iron deficiency anemia, unspecified iron deficiency anemia type Procedures CONSULT TO GENERAL SURGERY OFFICE/OUTPATIENT [facility] MDM 60-74 MINUTES Ez Solitario MD [address] [place] [address] Referral ID Status Reason Start Date Expiration Date V isits Requested Visits Authorized [id number] Closed PCP Requested Referral 10/04/2023 10/03/2024 1 1 Reason Comments Medicare Wellness Exam Reason Onset Date Comments Refill Request 02/17/2024 Reason Comments Outside Neuro Reason Onset Date Comments Refill Request 06/15/2024 Reason Comments F/U 6 months Reason Comments Jury duty letter Reason Onset Date Comments Refill Request 08/10/2024 Reason Comments Follow Up Leg pain Reason Comments PT Eval Specialty Diagnoses / Procedures Referred By Contac t Referred To Contact PHYSICAL THERAPY Diagnoses Acute midline low back pain without sciatica Procedures CONSULT TO PHYSICAL THERAPY PHYSICAL THERAPY EVALUATION HIGH COMPLEX 45 MINS Edna Umanzor, GENIE.KNOCKDOWN MAN [address] [place] [address] Meño Phillip, PT [address] [place] [address] Referral ID Status Reason Start Date Expiration Date Visits Requested Visits Authorized [id number] Authorized PCP Requested Referral Auto-Generate d Referral 08/25/2024 08/25/2025 99 99 Reason Comments Refill Request Reason Comments 11/28/2023 COLON/EGD ASC Reason Comments Outside PT/OT/Speech Reason Onset Date Comments Refill Request 12/10/2024 Reason Comments Medicare Wellness Exam Reason Onset Date Comments Results 01/13/2025 Reason Onset Date Comments Results 02/23/2025 Reason Onset Date Comments Results 02/26/2025 Reason Comments discoloration to skin Right leg x3 month s Reason Comments Physical Therapy Outside PT consult Reason Comments Consult Neurology Reason Comments Abstract Neurology OV Reason Comments Abstract [facility] admission Care Teams (unrecognized sec tion and content) Life Guard Relationship Specialty Start Date End Date Ez Solitario MD [address] [facility] [address] PCP - General Family Practice 02/07/16 Life Guard Relationship Specialty Start Date End Date Ez Solitario MD [address] [place] [address], [place] [address] PCP - General Family Practice 02/07/16 Life Guard Relationship Specialty Start Date End Date Ez Solitario MD [address] [place] [address], [place] [address] PCP - General Family Practice 02/07/16 Life Guard Relationship Specialty Start Date End Date Ez Solitario MD [address] [place] [address], [place] [address] PCP - General Family Practice 02/07/16 Life Guard Relationship Specialty Start Date End Date Ez Solitario MD [address] [place] [address], [place] [address] PCP - General Family Practice 02/07/16 Life Guard Relationship Specialty Start Date End Date Ez Solitario MD [address] [place] [address], [place] [address] PCP - General Family Medicine 02/07/16 Life Guard Relationship Specialty Start Date End Date Ez Solitario MD [address] [place] [address], [place] [address] PCP - General Family Medicine 02/07/16 Life Guard Relationship Specialty Start Date End Date Ez Solitario MD [address] [facility] [address] PCP - General Family Medicine 02/07/16 Team Status: Active Member Role Status Dates Dr. Ez Solitario MD Family Provider Active Dr. Ez Solitario MD Primary Care Provider Active Team Status: Inactive Member Role Status Dates Dr. Ez Solitario MD Primary Care Provider Active Dr. Elio Serrato MD Attending Provider, Referring Pro vider Active Life Guard Relationship Specialty Start Date End Date Ez Solitario MD [address] [facility] [address] PCP - General Family Medicine 02/07/16 Life Guard Relationship Specialty Start Date End Date Ez Solitario MD [address] [place] [address] PCP - General Family Medicine 02/07/16 Life Guard Relationship Specialty Start Date End Date Ez Solitario MD [address] [place] [address] PCP - General Family Medicine 02/07/16 Life Guard Relationship Specialty Start Date End Date Ez Solitario MD [address] [place] [address] [place] [address] PCP - General Family Medicine 02/07/16 Life Guard Relationship Specialty Start Date End Date Ez Solitario MD [address] [place] [address] [place] [address] PCP - General Family Medicine 02/07/16 Life Guard Relationship Specialty Start Date End Date Ez Solitario MD [address] [place] [address] [place] [address] PCP - General Family Medicine 02/07/16 Life Guard Relationship Specialty Start Date End Date Ez Solitario MD [address] [place] [address] [place] [address] PCP - General Family Medicine 02/07/16 Life Guard Relationship Specialty Start Date End Date Ez Solitario MD [address] [place] [address] PCP - General Family Medicine 02/07/16 Life Guard Relationship Specialty Start Date End Date Ez Solitario MD [address] [place] [address] PCP - General Family Medicine 02/07/16 Life Guard Relationship Specialty Start Date End Date Ez Solitario MD [address] [place] [address] PCP - General Family Medicine 02/07/16 Life Guard Relationship Specialty Start Date End Date Ez Solitario MD [address] [place] [address] PCP - General Family Medicine 02/07/16 Life Guard Relationship Specialty Start Date End Date Ez Solitario MD [address] [place] [address] PCP - General Family Medicine 02/07/16 Team Status: Inactive Member Role Status Dates Dr. Ez Solitario MD Primary Care Provider Active Dr. Milton Iglesias MD Emergency Provider Active Team Status: Active Member Role Status Dates Dr. Ez Solitario MD Primary Care Provider Active Dr. Vladislav Crawford DO Emergency Provider Active Dr. Esme Andre MD Attending Provi jessica, Referring Provider, Other Provider Active Team Status: Active Member Role Status Dates Dr. Ez Solitario MD Primary Care Provider Active Dr. Vladislav Crawford DO Emergency Provider Active Dr. Esme Andre MD Attending Provider, Referring Provider Active Life Guard Relationship Specialty Start Date End Date Ez Solitario MD [address] [place] [address] PCP - General Family Medicine 02/07/16 Team Status: Active Member Role Status Dates Dr. Ez Solitario MD Primary Care Provider Active Dr. Vladislav Crawford DO Emergency Provider Active Dr. Esme Andre MD Admit Provider, Attending Provider, Referring Provider, Other Provider Active Team Status: Active Member Role Status Dates Dr. Ez Solitario MD Primary Care Provider Active Dr. Vladislav Crawford DO Emergency Provider Active Dr. Esme Andre MD Admit Provider, Referring Provider, Other Provider Active Dr. Ishaan Olson MD Attending Provider Active Team Status: Inactive Member Role Status Dates Dr. Ez Solitario MD Primary Care Provider Active Dr. Vladislav Crawford DO Emergency Provider Active Dr. Esme Andre MD Admit Provider, Attending Provider, Referring Provider Active Team Status: Inactive Member Role Status Dates Dr. Ez Solitario MD Primary Care Provider Active Dr. Milton Iglesias MD Attending Provider, Emergency Provider Active Life Guard Relationship Specialty Start Date End Date Ez Solitario MD [address] [place] [address] PCP - General Family Medicine 02/07/16 Life Guard Relationship Specialty Start Date End Date zE Solitario MD [address] [place] [address] PCP - General Family Medicine 02/07/16 Life Guard Relationship Specialty Start Date End Date Ez Solitario MD [address] [place] [address] PCP - General Family Medicine 02/07/16 Life Guard Relationship Specialty Start Date End Date Ez Solitario MD [address] [place] [address] PCP - General Family Medicine 02/07/16 Life Guard Relationship Specialty Start Date End Date Ez Solitario MD [address] [place] [address] PCP - General Family Medicine 02/07/16 Life Guard Relationship Specialty Start Date End Date Ez Solitario MD [address] [place] [address] PCP - General Family Medicine 02/07/16 Life Guard Relationship Specialty Start Date End Date Ez Solitario MD [address] [place] [address] PCP - General Family Medicine 02/07/16 Life Guard Relationship Specialty Start Date End Date Ez Solitario MD [address] [place] [address] PCP - General Family Medicine 02/07/16 Life Guard Relationship Specialty Start Date End Date Ez Solitario MD [address] [place] [address] PCP - General Family Medicine 02/07/16 Life Guard Relationship Specialty Start Date End Date Ez Solitario MD [address] [place] [address] PCP - General Family Medicine 02/07/16 Life Guard Relationship Specialty Start Date End Date Ez Solitario MD [address] [place] [address] PCP - General Family Medicine 02/07/16 Life Guard Relationship Specialty Start Date End Date Ez Solitario MD [address] [place] [address] PCP - General Family Medicine 02/07/16 Life Guard Relationship Specialty Start Date End Date Ez Solitario MD [address] [facility] [place] [address] PCP - General Family Medicine 02/07/16 Life Guard Relationship Specialty Start Date End Date Ez Solitario MD [address] [facility] [place] [address] PCP - General Family Medicine 02/07/16 Life Guard Relationship Specialty Start Date End Date Ez Solitario MD [address] [place] [address] PCP - General Family Medicine 02/07/16 Life Guard Relationship Specialty Start Date End Date Ez Solitario MD [address] [place] [address] PCP - General Family Medicine 02/07/16 Life Guard Relationship Specialty Start Date End Date Ez Solitario MD [address] [place] [address] PCP - General Family Medicine 02/07/16 Life Guard Relationship Specialty Start Date End Date Ez Solitario MD [address] [place] [address] PCP - General Family Medicine 02/07/16 Life Guard Relationship Specialty Start Date End Date Ez Solitario MD [address] [place] [address] PCP - General Family Medicine 02/07/16 Life Guard Relationship Specialty Start Date End Date Ez Solitario MD [address] [place] [address] PCP - General Family Medicine 02/07/16 Edna Umanzor, GENIE.KNOCKDOWN MAN [address] [place] [address] [facility] 10/24/24 Lauren Camacho PA-C [address] [place] [address] [facility] 10/24/24 Life Guard Relationship Specialty Start Date End Date Ez Solitario MD [address] [place] [address] PCP - General Family Medicine 02/07/16 Edna Umanzor, GENIE.KNOCKDOWN MAN [address] [place] [address] [facility] 10/24/24 Lauren Camacho PA-C [address] [place] [address] [facility] 10/24/24 Life Guard Relationship Specialty Start Date End Date Ez Solitario MD [address] [place] [address] PCP - General Family Medicine 02/07/16 Edna Umanzor, GENIE.KNOCKDOWN MAN [address] [place] [address] [facility] 10/24/24 Lauren Camacho PA-C [address] [place] [address] [facility] 10/24/24 Life Guard Relationship Specialty Start Date End Date Ez Solitario MD [address] [place] [address] PCP - General Family Medicine 02/07/16 Edna Umanzor APRN.KNOCKDOWN MAN [address] [place] [address] [facility] 10/24/24 Lauren Camacho PA-C [address] [place] [address] [facility] Family [facility] 10/24/24 Life Guard Relationship Specialty Start Date End Date Ez Solitario MD [address] [place] [address] PCP - General Family Medicine 02/07/16 Edna Umanzor APRN.KNOCKDOWN MAN [address] [place] [address] [facility] 10/24/24 Lauren Camacho PA-C [address] [place] [address] [facility] Life Guard Relationship Specialty Start Date End Date Ez Solitario MD [address] [place] [address] PCP - General Family Medicine 02/07/16 Edna Umanzor RECONSIGNMENT CLERK.KNOCKDOWN MAN [address] [place] [address] [facility] 10/24/24 Lauren Camacho PA-C [address] [place] [address] [facility] 10/24/24 Life Guard Relationship Specialty Start Date End Date Ez Solitario MD [address] [facility] [place] [address] PCP - General Family Medicine 02/07/16 Edna Umanzor APRN.KNOCKDOWN MAN [address] [place] [address] [facility] 10/24/24 Lauren Camacho PA-C [address] [place] [address] [facility] 10/24/24 Life Guard Relationship Specialty Start Date End Date Ez Solitario MD [address] [place] [address] PCP - General Family Medicine 02/07/16 Edna Umanzor APRN.KNOCKDOWN MAN [address] [place] [address] [facility] 10/24/24 Lauren Camacho PA-C [address] [facility] [place] [address] [facility] 10/24/24 Life Guard Relationship Specialty Start Date End Date Ez Solitario MD [address] [facility] [place] [address] PCP - General Family Medicine 02/07/16 Edna Umanzor APRN.KNOCKDOWN MAN [address] [place] [address] [facility] 10/24/24 Lauren Camacho PA-C [address] [facility] [place] [address] Bridge Builder Family [facility] 10/24/24 Life Guard Relationship Specialty Start Date End Date Ez Solitario MD [address] [place] [address] PCP - General Family Medicine 02/07/16 Edna Umanzor, GENIE.KNOCKDOWN MAN [address] [place] [address] [facility] 04/[facility]25 Lauren Camacho PA-C [address] [place] [address] [facility] 04/19/25 Life Guard Relationship Specialty Start Date End Date Ez Solitario MD [address] [place] [address] PCP - General Family Medicine 02/07/16 Edna Umanzor, GENIE.KNOCKDOWN MAN [address] [place] [address] [facility] 04/19/25 Lauren Camacho PA-C [address] [place] [address] [facility] 04/19/25 Team Status: Active Member Role/Relationship Status Dates Dr. Ez Solitario MD Primary Care Provider Active Team Status: Active Member Role/Relationship Status Dates Dr. Ez Solitario MD Primary Care Provider Active Start: July 07, 2025 Dr. Shaji Rosales MD Emergency Provider Active S tart: July 07, 2025 Dr. Davin Kirkland MD Admit Provider Active Star t: July 07, 2025 Dr. Davin Kirkland MD Attending Provider Active Start: July 07, 2025 Team Status: Active Member Role/Relationship Status Dates Dr. Ez Solitario MD Primary Care Provider Active Start: July 07, 2025 Dr. Shaji Rosales MD Emergency Provider Active S tart: July 07, 2025 Dr. Davin Kirkland MD Admit Provider Active Star t: July 07, 2025 Dr. Davin Kirkland MD Attending Provider Active Start: July 07, 2025 Dr. Davin Kirkland MD Other Provider Active Star t: July 07, 2025 Team Status: Inactive Member Role/Relationship Status Dates Dr. Ez Solitario MD Primary Care Provider Active Start: July 07, 2025 End: July 09, 2025 Dr. Shaji Rosales MD Emergency Provider Active S tart: July 07, 2025 End: July 09, 2025 Dr. Davin Kirkland MD Admit Provider Active Star t: July 07, 2025 End: July 09, 2025 Dr. Davin Kirkland MD Attending Provider Active Start: July 07, 2025 End: July 09, 2025 Team Status: Active Member Role/Relationship Status Dates Dr. Ez Solitario MD Primary Care Provider Active Start: July 08, 2025 Dr. Shaji Rosales MD Emergency Provider Active S tart: July 08, 2025 Dr. Davin Kirkland MD Admit Provider Active Star t: July 08, 2025 Dr. Davin Kirkland MD Attending Provider Active Start: July 08, 2025 Dr. Davin Kirkland MD Other Provider Active Star t: July 08, 2025 Goals (unrecognized section and content) Goals may be documented in a n alternate sectionGoals may be documented in an alternate sectionGoals may be documented in an alternate section No data available for this sectionGoals may be documented in an alternate section FOR RECORDS PERTAINING TO PATIENTS WHO ARE OR HAVE BEEN ENROLLED IN A CHEMICAL DEPENDENCY/SUBSTANCEABUSE PROGRAM, SOME INFORMATION MAY BE OMITTED. This clinical summary was aggregated from multiple sources. Caution should be exercised in using it in the provision of clinical care. This summary normalizes information from multiple sources, and as a consequence, information in this document may materially change the coding, format and clinical context of patient data. In addition, data may be omitted in some cases. CLINICAL DECISIONS SHOULD BE BASED ON THE PRIMARY CLINICAL RECORDS. [facility] [employer] [facility]. provides no warranty or guarantee of the accuracy or completeness of information in this document.
[2025-07-27 09:25] LABS: Hematocrit 36.3 % (37-47); Hemoglobin 11.4 g/dL (12.0-15.0); Immature Granulocytes Count 0.020 X10^3/uL (0.0-0.0); Mean Corp Hgb Conc 31.4 g/dL (32-36); Mean Corpuscular Volume 91.4 fL (81-99); Mean Platelet Vol. 11.9 fl (6.2-12.0); NRBC Flagged by Analyzer 0 % (0-5); Platelet Count 230 K/mm3 (150-450); RBC Distribution Width CV 13.2 % (11.6-14.6); RBC Distribution Width SD 43.5 fl (35.1-43.9); Red Blood Count 3.97 M/mm3 (4.2-5.4); White Blood Count 5.6 K/mm3 (4.4-11.0)
[2025-07-27 09:55] LABS: Anion Gap 10 (5-15); BUN 11 mg/dL (4-19); BUN/Creat Ratio 11.2 RATIO (10-20); Calcium,Total 9.9 mg/dL (7.6-11.0); Carbon Dioxide 25.4 mmol/L (21.0-32.0); Chloride 103 mmol/L (98-108); Glucose 101 mg/dL (70-99); Potassium 4.5 mmol/L (3.3-5.1)
[2025-07-27 14:39] LABS: Iron 46 ug/dL (50-170)
[2025-07-27 14:53] LABS: Ferritin 170 ng/mL (22-378); Vitamin B12 925 pg/mL (180-914); Vitamin D,25 Hydroxy 30.2 ng/mL (30-100)
== END ==
LOC: OLS.SW 05:00
PROVIDERS: PCP Family Medicine; Visit Provider Internal Medicine
DX: I10 Essential (primary) hypertension (principal); E78.5 Hyperlipidemia, unspecified; G20.A1 Parkinson's disease without dyskinesia, without mention of fluctuations
CPT/HCPCS: 36415; 80048; 82306; 82607; 82728; 83540; 84443; 85025

== ENCOUNTER → 2025-08-03 | Outpatient (REF) | payer MEDICARE, BC, SELFPAY ==
[2025-08-03 07:49] LABS: Hematocrit 35.0 % (37-47); Hemoglobin 11.4 g/dL (12.0-15.0); Immature Granulocytes Count 0.010 X10^3/uL (0.0-0.0); Mean Corp Hgb Conc 32.6 g/dL (32-36); Mean Corpuscular Volume 89.5 fL (81-99); Mean Platelet Vol. 11.7 fl (6.2-12.0); NRBC Flagged by Analyzer 0 % (0-5); Platelet Count 228 K/mm3 (150-450); RBC Distribution Width CV 13.2 % (11.6-14.6); RBC Distribution Width SD 43.3 fl (35.1-43.9); Red Blood Count 3.91 M/mm3 (4.2-5.4); White Blood Count 5.9 K/mm3 (4.4-11.0)
[2025-08-03 08:06] LABS: Anion Gap 10 (5-15); BUN 13 mg/dL (4-19); BUN/Creat Ratio 13.2 RATIO (10-20); Calcium,Total 10.0 mg/dL (7.6-11.0); Carbon Dioxide 25.4 mmol/L (21.0-32.0); Chloride 106 mmol/L (98-108); Glucose 93 mg/dL (70-99); Potassium 4.4 mmol/L (3.3-5.1)
== END ==
LOC: OLS.SW 05:00
PROVIDERS: PCP Family Medicine; Visit Provider Internal Medicine
DX: I10 Essential (primary) hypertension (principal); G20.A1 Parkinson's disease without dyskinesia, without mention of fluctuations
CPT/HCPCS: 36415; 80048; 85025

== ENCOUNTER → 2025-09-14 | Outpatient (REF) | payer MEDICARE, BC, SELFPAY ==
--- OUTSIDE RECORDS SUMMARY | 2025-09-14 04:19 | XMS RPT_ITS | CCD ---
Author Organization [facility] Care Team Providers Care Passenger Brakeman Name Role Phone Ez Solitario MD Primary [...] Ez Solitario MD Primary Care Provider Manny SHELLFISH HARVESTER.CONNIE, Edna Unavailable Lauren Camacho PA-C Unavailable MARY YOU Attending Unavailable GOLD COLON Referring Unavailable EZ SOLITARIO Primary Care Unavailable Edna Umanzor APRN.CNP Unavailable Lauren Camacho PA-C Unavailable Dr. Ez Solitario MD Primary Care Provider Dr. Shaji Rosales MD Emergency Provider Dr. Davin Kirkland MD Admit Provider Unavailable Dr. Davin Kirkland MD Attending Provider Unavaila Dr. Davin Nix MD Other Provider Unavailable Altaf, Ez Primary Care Unavailable Matilda Manzanares Attending Unavailable Altaf, Ez Primary Care Unavailable Davin Kirkland Admitting Unavailable Davin Kirkland Attending Unavailable Davin Kirkland Consulting Unavailable Altaf, Ez Primary Care Unavailable Gulupea Matilda KEITA Attending Unavailable Altaf, Ez Primary Care Unavailable Matilda Manzanares Attending Unavailable Waight, Gold Referring Unavailable Waight, Gold Attending Unavailable Altaf, Ez Primary Care Unavailable Dasia, Gold Referring Unavailable Dasia, Gold Attending Unavailable Altaf, Ez Primary Care Unavailable Davin Kirkland Attending Unavailable Altaf, Ez Primary Care Unavailable Davin Kirkland Admitting Unavailable ALTAF, EZ A Primary Care Unavailable MEÑO PHILLIP Attending Unavailable EDNA UMANZOR Referring Unavailable ALTAF, EZ A Primary Care Unavailable LAUREN CAMACHO Referring Unavailable ALTAF, EZ A Primary Care Unavailable LAUREN CAMACHO Attending Unavailable ALTAF, EZ A Primary Care Unavailable ALTAF, EZ A Referring Unavailable SELF Referring Unavailable ALTAF, EZ A Primary Care Unavailable LAUREN CAMACHO Attending Unavailable ALTAF, EZ A Primary Care Unavailable MARY ORTIZ Attending Unavailable ALTAF, EZ A Referring Unavailable ALTAF, EZ A Primary Care Unavailable ALTAF, EZ A Primary Care Unavailable LAUREN CAMACHO Referring Unavailable Allergies Allergy Classification Reported Allergen(s) Allergy Type Date of Onset Reaction(s) Facility (20 sources) Codeine; Translations: [CODEINE] Drug Allergy 6 Intolerance [facility] Work Phone: (20 sources) Povidone-Iodine; Translations: [POVIDONE-IODINE ] Drug Allergy 7 Rash [facility] Work Phone: (20 sources) busPIRone; Translations: [BUSPIRONE] Drug Allergy 3 Other: See Comments [facility] Work Phone: (1 source) Codeine Drug Allergy 3 [facility] Repository Medications Current Medications Medication Drug Class(es) Dates Sig (Normalized) Sig (Original) acetaminophen 500 mg oral tablet (5 sources) Start: 08-06-2023 End: 10-03-2023 take 2 tablets by mouth every eight [...] two times a day. Per Neurology at [facility] 10/01/2023 Active Start: 07-20-2016 End: 10-01-2023 take 1 mg by mouth twice daily Benztropine 2 MG tablet Active 1 mg PO TWICE A DAY July 20, 2016 12:00am [facility]INSON[facility] Start: 07-20-2016 take 1 mg by mouth twice daily Benztropine Active 1 MG PO TWICE A DAY July 20, 2016 12:00am Comment on above: Take 1 tablet by julia twice daily. Per Neurology at [facility] Take 0.5 tablets by mouth two times a day. Per Neurology at [facility] bisacodyl 10 mg rectal suppository (2 sources) [...] take 1 tablet by mouth once daily vufsspo-qtafobgtz-ps tamin D3 (CALCIUM 500+D) 500 mg-5 mcg [...] of 30mg daily, getting from Neurology at [facility] Take 1 tablet by julia th daily at bedtime. Take with 10mg dose for total of 30mg daily. Per neurology at [facility] diphenhydrAMINE hydrochloride 25 mg oral capsule (20 sources) Histamine-1 Receptor Antagonist take 2 tablets by mouth once daily in the evening diphenhydrAMINE (BENADRYL) 25 mg capsule Take 25 mg by mouth once daily. 2 tablets 25 mg AM and 2 tablets 25 mg PM Active take 1 capsule by mo ut every six hours as needed diphenhydrAMINE (BENADRYL) [...] 5 mg oral capsule (20 sources) Start: 3 take 2 capsules by mouth once daily [...] 12.5 mg PO TWICE A DAY 1 August 20, 2023 12:00am nitrofurantoin, macrocrystals 25 [...] Comment on above: Take 1 capsule by [facility] two times a day with meals for 7 days. omeprazole 40 mg delayed release oral capsule (20 sources) Proton Pump Inhibitor Start: 6 End: 5 take 1 capsule by mouth once daily Omeprazole 40 mg capsule,delayed release(DR/EC) Active 40 mg PO DAILY August 01, 2023 12:00am ACID REFLUX Comment on above: Take 1 capsule by mo ut once daily. perflutren lipid microspheres 1.3 mL [...] 9 mg/ml prefilled syringe (20 sources) Start: 3 End: sodium chloride 0.9 % (flush) 10 [...] tablet Discontinued 500 mg PO Q12H 10 July 21, 2016 12:00am August 01, 2023 [...] tablet by julia th every other day. Food Supplemt, Lactose-Reduced (Ensure [...] julia th once daily. polyethylene glycol 3350 40650 mg powder for oral solution (20 sources) [...] by mouth once daily. Per Neurology at [facility] 07/28/2024 10/27/2024 Discontinued (Discontinued by another Health Care Provider) Start: 12-05-2020 take 1 tablet by julia th once daily Rasagiline 1 mg tablet Active 1 mg PO DAILY August 01, 2023 12:00am PARKINSONS Comment on above: Take 1 tablet by julia th once daily. Per [facility] at [facility] Problems Active Problems Problem Classification Problem Date [...] blood loss fr om surgery. HGB at CT is 9.4 Delirium, dementia, and amnestic and other cognitive disorders (20 sources) Dementia associated with another disease; Translations: [Dementia in other diseases classified elsewhere, mild, with anxiety ([facility])] Onset: 4 12-26-2023 Chronic Disorders of lipid [...] unspecified chronic kidney disease] Onset: 4 Chronic Immunizations and screening for infectious disease (1 source) Encounter for immunization; Translations: [Encounter for immunization] Onset: 5 Episodic Intestinal obstruction without hernia (20 sources) Cecal volvulus; Translations: [Volvulus] Onset: 3 Resolved: 3 08-01-2023 Episodic Malaise and fatigue (5 sources) Asthenia; Translations: [Other malaise] Onset: 5 08-09-2023 Episodic Menopausal disorders (20 sources) Atrophic [...] (generalized)] 08-09-2023 Episodic Other connective tissue disease (1 source) Muscle weakness (generalized); Translations: [Muscle weakness (generalized)] Onset: 5 Episodic Other connective tissue disease (1 source) Myalgia, unspecified site; Translations: [Myalgia] Onset: 5 Episodic Other female genital disorders [...] increased after Mirapex was started. Parkinson`s disease (3 sources) Parkinson`s disease; Translations: [Parkinson's disease without dyskinesia, without mention of fluctuations] Onset: 1 Residual codes; unclassified (1 source) Edema of lower extremity; Translations: [Localized edema] Episodic Residual codes; unclassified (1 source) Peripheral edema; Translations: [Edema, unspecified] Episodic Residual codes; unclassified (5 sources) History of partial resection of colon; Translations: [Acquired absence of other specified parts of digestive tract] 08-02-2023 Episodic Comment on above: 08/01/23 at [facility] - Dr. Andre Residual codes; unclassified (1 [...] [Frequency of micturition] Onset: 01-11-2025 01-11-2025 Episodic Neoplasms of unspecified nature or uncertain behavior (20 sources) Neoplasm of uncertain behavior of skin of back; Translations: [Neoplasm of uncertain behavior of skin] Onset: 06-05-2017 Resolved: 12-06-2017 12-06-2017 Episodic Nutritional deficiencies (20 sources) Serum vitamin B12 low; Translations: [Deficiency of other specified B group vitamins] Onset: 02-07-2022 Episodic Other aftercare (20 sources) Patient encounter status; Translations: [Other predatory animal exterminator (current) drug therapy] Onset: 02-07-2016 Episodic Other aftercare (1 source) Drug therapy finding; Translations: [Other predatory animal exterminator (current) drug therapy] Onset: 12-06-2016 12-09-2019 Episodic Other aftercare (1 source) Other predatory animal exterminator (current) drug therapy; Translations: [Medication management] Onset: [...] [Repeated falls] Onset: 07-20-2021 07-20-2021 Episodic Other screening for suspected conditions (not [...] Test Name Value Interpretation Reference Range Facility [facility] 08-23-2025 CNOV Office Visit (FAMPWS) PRASHANT SHEFFIELD ([id number]) 1950 F Date Time Provider Department 08/23/25 1:00 PM LAUREN CAMACHO [facility] During your visit today, we recorded the following information about you: Temperature Pulse Respiration Blood pressure 98 degrees 56/minute 16/minute 106/66 Lauren Camacho PA-C 08/23/2025 2:34 PM Signed Chief Complaint Patient presents with: was discharged from [facility] on 08/20/25 and went to [facility] Prashant Sheffield is a 75 year old female who presents here today for Hospital Discharge Follow up.. Patient is here today with her sister, Moo. On 07/07 patient presented to ER due to pain and depressive symptoms. She was then admitted to a [facility] facility and then discharged from there to [facility]. Parkinson's Disease: - Recent hospitalization at [facility] in [place], [place], followed by a 30-day stay at [facility]. - Neurology follow-up scheduled for August 31. - Recent medication discrepancies noted: - Benztropine: Previously taking 0.5 mg BID; currently on 2 mg daily. - Pramipexole: Previously taking 1 mg BID; currently on 1 mg TID. - Citalopram: Previously on 30 mg daily; When she was disharged back to [facility], she is on lexapro 10mg. - Atorvastatin: Switched from simvastatin during hospitalization. - Experiencing sleep attacks believed to be a side effect of pramipexole in the past which is why neuro adjusted medications to just BID. - Full body pain, particularly in legs and wrists, described as an ache rather than sharp pain, primarily in the morning. neuro was attempting a med switch to cymbalta to see if would held her pain. but then she had the increase anxiety/depressive symptoms. - Pain management includes Tylenol and ibuprofen PRN. - Sister reports Prashant is "still not herself." Past medical history, appointments, medications, allergies reviewed. [...] disease (HCC) 02/07/[address] Man in [facility] Stage 3a chronic kidney disease (HCC) [...] on File Prior to Visit Medication Sig acetaminophen (TYLENOL) 325 mg cap Take 325 mg by mouth as needed for pain or fever (specify temp.). LORazepam (ATIVAN) 0.5 mg Take 0.5 mg by mouth three times a day as needed. atorvastatin (LIPITOR) 20 mg tablet Take 20 mg by mouth once daily. escitalopram oxalate (LEXAPRO) 10 mg tablet Take 10 mg by mouth once daily. furosemide (LAS (more content not included)... Normal [facility] Basic Metabolic Profile (BMP )on 08-03-2025 BUN/CRE 13.2 RATIO Normal 10-20 [facility] Comment on above: Order Comment: 213.1 Performed By: #### L 100.0100, L500.2500 #### [facility] [address] [place], [address] Calcium [Mass/Vol] 10.0 mg/dL Normal 7.6-11.0 [facility] Comment on above: Order Comment: 213.1 Performed By: #### L 100.0100, L500.2500 #### [facility] [address] [place], [address] Chloride [Moles/Vol] 106 mmol/L Normal 98-108 [facility] Comment on above: Order Comment: 213.1 Performed By: #### L 100.0100, L500.2500 #### [facility] [address] [place], [address] CO2 [Moles/Vol] 25.4 mmol/L Normal 21.0-32.0 [facility] Comment on above: Order Comment: 213.1 Performed By: #### L 100.0100, L500.2500 #### [facility] [address] [place], [address] Creatinine [Mass/Vol] 0.97 mg/dL Normal 0.70-1.20 [facility] Comment on above: Order Comment: 213.1 Performed By: #### L 100.0100, L500.2500 #### [facility] [address] [place], [address] GAP 10 Normal 5-15 [facility] Comment on above: Order Comment: 213.1 Performed By: #### L 100.0100, L500.2500 #### [facility] [address] [place], [address] GFR/1.73 sq M.predicted among non-blacks MDRD (S/P/Bld) [Vol rate/Area] 61 mL/min/{1.73_m2} Normal >60 [facility] Comment on above: Order Comment: 213.1 Result Comment: mL/m in/1.73m2 CKD-EPI Creatinine Equation (2020) Performed By: #### L 100.0100, L500.2500 #### [facility] [address] [place], [address] Glucose [Mass/Vol] 93 mg/dL Normal 70-99 [facility] Comment on above: Order Comment: 213.1 Performed By: #### L 100.0100, L500.2500 #### [facility] [address] [place], [address] Potassium [Moles/Vol] 4.4 mmol/L Normal 3.3-5.1 [facility] Comment on above: Order Comment: 213.1 Performed By: #### L 100.0100, L500.2500 #### [facility] [address] [place], [address] Sodium [Moles/Vol] 141 mmol/L Normal 133-145 [facility] Comment on above: Order Comment: 213.1 Performed By: #### L 100.0100, L500.2500 #### [facility] [address] [place], [address] Urea nitrogen [Mass/Vol] 13 mg/dL Normal 4-19 [facility] Comment on above: Order Comment: 213.1 Performed By: #### L 100.0100, L500.2500 #### [facility] [address] [place], [address] CBC W/Diff, Automatedon -11 23-2024 Absolute Lymph 2.17 X10 3/uL Normal 0.83-4.51 [facility] Comment on above: Order Comment: 213.1 Performed By: #### L 100.0100, L500.2500 #### [facility] [address] [place], [address] Absolute Neut 2.9 X10 3/uL Normal 2.0-7.7 [facility] Comment on above: Order Comment: 213.1 Performed By: #### L 100.0100, L500.2500 #### [facility] [address] [place], [address] Basophils/100 WBC (Bld) 0.8 % Normal 0-1 [facility] Comment on above: Order Comment: 213.1 Performed By: #### L 100.0100, L500.2500 #### [facility] [address] [place], [address] Eosinophils/100 WBC (Bld) 4.7 % Normal 0-5 [facility] Comment on above: Order Comment: 213.1 Performed By: #### L 100.0100, L500.2500 #### [facility] [address] [place], [address] Erythrocyte distribution width (RBC) [Ratio] 13.2 % Normal 11.6-14.6 [facility] Comment on above: Order Comment: 213.1 Performed By: #### L 100.0100, L500.2500 #### [facility] [address] [place], [address] Hematocrit (Bld) [Volume fraction] 35.0 % Low 37-47 [facility] Comment on above: Order Comment: 213.1 Performed By: #### L 100.0100, L500.2500 #### [facility] [address] [place], [address] Hemoglobin (Bld) [Mass/Vol] 11.4 g/dL Low 12.0-15.0 [facility] Comment on above: Order Comment: 213.1 Performed By: #### L 100.0100, L500.2500 #### [facility] [address] [place], [address] IG% 0.200 Normal 0.0-0.9 [facility] Comment on above: Order Comment: 213.1 Result Comment: IG% - Immature Granulocytes (promyelocytes, myelocytes and metamyelocytes) > 1% indicates that a LEFT SHIFT is Present. Performed By: #### L 100.0100, L500.2500 #### [facility] [address] [place], [address] Lymphocytes/100 WBC (Bld) 36.5 % Normal 19-41 [facility] Comment on above: Order Comment: 213.1 Performed By: #### L 100.0100, L500.2500 #### [facility] [address] [place], [address] MCH (RBC) [Entitic mass] 29.2 pg Normal 27.0-32.0 [facility] Comment on above: Order Comment: 213.1 Performed By: #### L 100.0100, L500.2500 #### [facility] [address] [place], [address] MCHC (RBC) [Mass/Vol] 32.6 g/dL Normal 32-36 [facility] Comment on above: Order Comment: 213.1 Performed By: #### L 100.0100, L500.2500 #### [facility] [address] [place], [address] MCV (RBC) [Entitic vol] 89.5 fL Normal 81-99 [facility] Comment on above: Order Comment: 213.1 Performed By: #### L 100.0100, L500.2500 #### [facility] [address] [place], [address] Monocytes/100 WBC (Bld) 9.6 % Normal 0-10 [facility] Comment on above: Order Comment: 213.1 Performed By: #### L 100.0100, L500.2500 #### [facility] [address] [place], [address] Neutrophils/100 WBC (Bld) 48.2 % Normal 47-70 [facility] Comment on above: Order Comment: 213.1 Performed By: #### L 100.0100, L500.2500 #### [facility] [address] [place], [address] Nucleated RBC (Bld) [#/Vol] 0 10*3/uL Normal 0-5 [facility] Comment on above: Order Comment: 213.1 Performed By: #### L 100.0100, L500.2500 #### [facility] [address] [place], [address] Platelet mean volume (Bld) [Entitic vol] 11.7 fL Normal 6.2-12.0 [facility] Comment on above: Order Comment: 213.1 Performed By: #### L 100.0100, L500.2500 #### [facility] [address] [place], [address] Platelets (Bld) [#/Vol] 228 10*3/uL Normal 150-450 [facility] Comment on above: Order Comment: 213.1 Performed By: #### L 100.0100, L500.2500 #### [facility] [address] [place], [address] RBC (Bld) [#/Vol] 3.91 10*6/uL Low 4.2-5.4 [facility] Comment on above: Order Comment: 213.1 Performed By: #### L 100.0100, L500.2500 #### [facility] [address] [place], [address] RDW SD 43.3 fl Normal 35.1-43.9 [facility] Comment on above: Order Comment: 213.1 Performed By: #### L 100.0100, L500.2500 #### [facility] [address] [place], [address] WBC (Bld) [#/Vol] 5.9 10*3/uL Normal 4.4-11.0 [facility] Comment on above: Order Comment: 213.1 Performed By: #### L 100.0100, L500.2500 #### [facility] [address] [place], [address] Basic Metabolic Profile (BMP )on 07-27-2025 BUN/CRE 11.2 RATIO Normal 10-20 [facility] Comment on above: Order Comment: 213.1 Performed By: #### L 100.0100, L500.4050 #### [facility] [address] [place], [address] Calcium [Mass/Vol] 9.9 mg/dL Normal 7.6-11.0 [facility] Comment on above: Order Comment: 213.1 Performed By: #### L 100.0100, L500.4050 #### [facility] [address] [place], [address] Chloride [Moles/Vol] 103 mmol/L Normal 98-108 [facility] Comment on above: Order Comment: 213.1 Performed By: #### L 100.0100, L500.4050 #### [facility] [address] [place], [address] CO2 [Moles/Vol] 25.4 mmol/L Normal 21.0-32.0 [facility] Comment on above: Order Comment: 213.1 Performed By: #### L 100.0100, L500.4050 #### [facility] [address] [place], [address] Creatinine [Mass/Vol] 0.94 mg/dL Normal 0.70-1.20 [facility] Comment on above: Order Comment: 213.1 Performed By: #### L 100.0100, L500.4050 #### [facility] [address] [place], [address] GAP 10 Normal 5-15 [facility] Comment on above: Order Comment: 213.1 Performed By: #### L 100.0100, L500.4050 #### [facility] [address] [place], [address] GFR/1.73 sq M.predicted among non-blacks MDRD (S/P/Bld) [Vol rate/Area] 64 mL/min/{1.73_m2} Normal >60 [facility] Comment on above: Order Comment: 213.1 Result Comment: mL/m in/1.73m2 CKD-EPI Creatinine Equation (2020) Performed By: #### L 100.0100, L500.4050 #### [facility] [address] [place], [address] Glucose [Mass/Vol] 101 mg/dL High 70-99 [facility] Comment on above: Order Comment: 213.1 Performed By: #### L 100.0100, L500.4050 #### [facility] [address] [place], [address] Potassium [Moles/Vol] 4.5 mmol/L Normal 3.3-5.1 [facility] Comment on above: Order Comment: 213.1 Performed By: #### L 100.0100, L500.4050 #### [facility] [address] [place], [address] Sodium [Moles/Vol] 139 mmol/L Normal 133-145 [facility] Comment on above: Order Comment: 213.1 Performed By: #### L 100.0100, L500.4050 #### [facility] [address] [place], [address] Urea nitrogen [Mass/Vol] 11 mg/dL Normal 4-19 [facility] Comment on above: Order Comment: 213.1 Performed By: #### L 100.0100, L500.4050 #### [facility] [address] [place], [address] CBC W/Diff, Automatedon 09-0 9-2024 Absolute Lymph 1.56 X10 3/uL Normal 0.83-4.51 [facility] Comment on above: Order Comment: 213.1 Performed By: #### L 100.0100, L500.4050 #### [facility] [address] [place], [address] Absolute Neut 3.3 X10 3/uL Normal 2.0-7.7 [facility] Comment on above: Order Comment: 213.1 Performed By: #### L 100.0100, L500.4050 #### [facility] [address] [place], [address] Basophils/100 WBC (Bld) 0.7 % Normal 0-1 [facility] Comment on above: Order Comment: 213.1 Performed By: #### L 100.0100, L500.4050 #### [facility] [address] [place], [address] Eosinophils/100 WBC (Bld) 3.4 % Normal 0-5 [facility] Comment on above: Order Comment: 213.1 Performed By: #### L 100.0100, L500.4050 #### [facility] [address] [place], [address] Erythrocyte distribution width (RBC) [Ratio] 13.2 % Normal 11.6-14.6 [facility] Comment on above: Order Comment: 213.1 Performed By: #### L 100.0100, L500.4050 #### [facility] [address] [place], [address] Hematocrit (Bld) [Volume fraction] 36.3 % Low 37-47 [facility] Comment on above: Order Comment: 213.1 Performed By: #### L 100.0100, L500.4050 #### [facility] Laboratory [address] [place], [address] Hemoglobin (Bld) [Mass/Vol] 11.4 g/dL Low 12.0-15.0 [facility] Comment on above: Order Comment: 213.1 Performed By: #### L 100.0100, L500.4050 #### [facility] Laboratory [address] [place], [address] IG% 0.400 Normal 0.0-0.9 [facility] Comment on above: Order Comment: 213.1 Result Comment: IG% - Immature Granulocytes (promyelocytes, myelocytes and metamyelocytes) > 1% indicates that a LEFT SHIFT is Present. Performed By: #### L 100.0100, L500.4050 #### [facility] Laboratory [address] [place], [address] Lymphocytes/100 WBC (Bld) 28.0 % Normal 19-41 [facility] Comment on above: Order Comment: 213.1 Performed By: #### L 100.0100, L500.4050 #### [facility] Laboratory [address] [place], [address] MCH (RBC) [Entitic mass] 28.7 pg Normal 27.0-32.0 [facility] Comment on above: Order Comment: 213.1 Performed By: #### L 100.0100, L500.4050 #### [facility] Laboratory [address] [place], [address] MCHC (RBC) [Mass/Vol] 31.4 g/dL Low 32-36 [facility] Comment on above: Order Comment: 213.1 Performed By: #### L 100.0100, L500.4050 #### [facility] Laboratory [address] [place], [address] MCV (RBC) [Entitic vol] 91.4 fL Normal 81-99 [facility] Comment on above: Order Comment: 213.1 Performed By: #### L 100.0100, L500.4050 #### [facility] [address] [place], [address] Monocytes/100 WBC (Bld) 8.4 % Normal 0-10 [facility] Comment on above: Order Comment: 213.1 Performed By: #### L 100.0100, L500.4050 #### [facility] [address] [place], [address] Neutrophils/100 WBC (Bld) 59.1 % Normal 47-70 [facility] Comment on above: Order Comment: 213.1 Performed By: #### L 100.0100, L500.4050 #### [facility] Laboratory [address] [place], [address] Nucleated RBC (Bld) [#/Vol] 0 10*3/uL Normal 0-5 [facility] Comment on above: Order Comment: 213.1 Performed By: #### L 100.0100, L500.4050 #### [facility] Laboratory [address] [place], [address] Platelet mean volume (Bld) [Entitic vol] 11.9 fL Normal 6.2-12.0 [facility] Comment on above: Order Comment: 213.1 Performed By: #### L 100.0100, L500.4050 #### [facility] Laboratory [address] [place], [address] Platelets (Bld) [#/Vol] 230 10*3/uL Normal 150-450 [facility] Comment on above: Order Comment: 213.1 Performed By: #### L 100.0100, L500.4050 #### [facility] Laboratory [address] [place], [address] RBC (Bld) [#/Vol] 3.97 10*6/uL Low 4.2-5.4 [facility] Comment on above: Order Comment: 213.1 Performed By: #### L 100.0100, L500.4050 #### [facility] Laboratory [address] [place], [address] RDW SD 43.5 fl Normal 35.1-43.9 [facility] Comment on above: Order Comment: 213.1 Performed By: #### L 100.0100, L500.4050 #### [facility] Laboratory [address] [place], [address] WBC (Bld) [#/Vol] 5.6 10*3/uL Normal 4.4-11.0 [facility] Comment on above: Order Comment: 213.1 Performed By: #### L 100.0100, L500.4050 #### [facility] Laboratory [address] [place], [address] Ferritinon 07-27-2025 Ferritin [Mass/Vol] 170 ng/mL Normal 22-378 [facility] Comment on above: Order Comment: 213.1 Performed By: #### L 100.0100, L500.4050 #### [facility] [address] [place], [address] Ironon 07-27-2025 Iron [Mass/Vol] 46 ug/dL Low 50-170 [facility] Comment on above: Order Comment: 213.1 Performed By: #### L 100.0100, L500.4050 #### [facility] Laboratory [address] [place], [address] Thyroid Stim Hormone (TSH)on 07-27-2025 TSH 1.520 uIU/mL Normal 0.300-4.200 [facility] Comment on above: Order Comment: 213.1 Performed By: #### L 100.0100, L500.4050 #### [facility] Laboratory [address] [place], [address] Vitamin B12on 07-27-2025 Cobalamin (Vitamin B12) [Mass/Vol] 925 pg/mL High 180-914 [facility] Comment on above: Order Comment: 213.1 Performed By: #### L 100.0100, L500.4050 #### [facility] Laboratory [address] [place], [address] Vitamin D,25 Hydroxyon 07-27 Vitamin D 25-OH 30.2 ng/mL Normal 30-100 [facility] Comment on above: Order Comment: 213.1 Result Comment: Alexandra min D Status Deficiency: <20 ng/mL (50nmol/L) Insufficiency: 20-30 ng/mL (50-75 nmol/L) Sufficiency: 30-100 ng/mL (75-250 nmol/L) Toxicity: >100 ng/mL (>250 nmol/L) Performed By: #### L 100.0100, L500.4050 #### [facility] [address] [place], [address] CBC W/Diff, Automatedon Absolute Lymph 1.73 X10 3/uL Normal 0.83-4.51 [facility] Comment on above: Order Comment: 213.1 Performed By: #### L 100.0100, L500.4050 #### [facility] Laboratory [address] [place], [address] Absolute Neut 2.8 X10 3/uL Normal 2.0-7.7 [facility] Comment on above: Order Comment: 213.1 Performed By: #### L 100.0100, L500.4050 #### [facility] [address] [place], [address] Basophils/100 WBC (Bld) 0.6 % Normal 0-1 [facility] Comment on above: Order Comment: 213.1 Performed By: #### L 100.0100, L500.4050 #### [facility] [address] [place], [address] Eosinophils/100 WBC (Bld) 3.8 % Normal 0-5 [facility] Comment on above: Order Comment: 213.1 Performed By: #### L 100.0100, L500.4050 #### [facility] [address] [place], [address] Erythrocyte distribution width (RBC) [Ratio] 13.2 % Normal 11.6-14.6 [facility] Comment on above: Order Comment: 213.1 Performed By: #### L 100.0100, L500.4050 #### [facility] Laboratory [address] [place], [address] Hematocrit (Bld) [Volume fraction] 33.6 % Low 37-47 [facility] Comment on above: Order Comment: 213.1 Performed By: #### L 100.0100, L500.4050 #### [facility] Laboratory [address] [place], [address] Hemoglobin (Bld) [Mass/Vol] 10.6 g/dL Low 12.0-15.0 [facility] Comment on above: Order Comment: 213.1 Performed By: #### L 100.0100, L500.4050 #### [facility] [address] [place], [address] IG% 0.600 Normal 0.0-0.9 [facility] Comment on above: Order Comment: 213.1 Result Comment: IG% - Immature Granulocytes (promyelocytes, myelocytes and metamyelocytes) > 1% indicates that a LEFT SHIFT is Present. Performed By: #### L 100.0100, L500.4050 #### [facility] [address] [place], [address] Lymphocytes/100 WBC (Bld) 32.6 % Normal 19-41 [facility] Comment on above: Order Comment: 213.1 Performed By: #### L 100.0100, L500.4050 #### [facility] Laboratory [address] [place], [address] MCH (RBC) [Entitic mass] 28.8 pg Normal 27.0-32.0 [facility] Comment on above: Order Comment: 213.1 Performed By: #### L 100.0100, L500.4050 #### [facility] Laboratory [address] [place], [address] MCHC (RBC) [Mass/Vol] 31.5 g/dL Low 32-36 [facility] Comment on above: Order Comment: 213.1 Performed By: #### L 100.0100, L500.4050 #### [facility] Laboratory [address] [place], [address] MCV (RBC) [Entitic vol] 91.3 fL Normal 81-99 [facility] Comment on above: Order Comment: 213.1 Performed By: #### L 100.0100, L500.4050 #### [facility] [address] [place], [address] Monocytes/100 WBC (Bld) 10.4 % High 0-10 [facility] Comment on above: Order Comment: 213.1 Performed By: #### L 100.0100, L500.4050 #### [facility] Laboratory [address] [place], [address] Neutrophils/100 WBC (Bld) 52.0 % Normal 47-70 [facility] Comment on above: Order Comment: 213.1 Performed By: #### L 100.0100, L500.4050 #### [facility] Laboratory [address] [place], [address] Nucleated RBC (Bld) [#/Vol] 0 10*3/uL Normal 0-5 [facility] Comment on above: Order Comment: 213.1 Performed By: #### L 100.0100, L500.4050 #### [facility] Laboratory [address] [place], [address] Platelet mean volume (Bld) [Entitic vol] 11.9 fL Normal 6.2-12.0 [facility] Comment on above: Order Comment: 213.1 Performed By: #### L 100.0100, L500.4050 #### [facility] Laboratory [address] [place], [address] Platelets (Bld) [#/Vol] 216 10*3/uL Normal 150-450 [facility] Comment on above: Order Comment: 213.1 Performed By: #### L 100.0100, L500.4050 #### [facility] Laboratory [address] [place], [address] RBC (Bld) [#/Vol] 3.68 10*6/uL Low 4.2-5.4 [facility] Comment on above: Order Comment: 213.1 Performed By: #### L 100.0100, L500.4050 #### [facility] Laboratory [address] [place], [address] RDW SD 44.2 fl High 35.1-43.9 [facility] Comment on above: Order Comment: 213.1 Performed By: #### L 100.0100, L500.4050 #### [facility] Laboratory [address] [place], [address] WBC (Bld) [#/Vol] 5.3 10*3/uL Normal 4.4-11.0 [facility] Comment on above: Order Comment: 213.1 Performed By: #### L 100.0100, L500.4050 #### [facility] Laboratory [address] [place], [address] Comprehensive Metabolic Prof ilon 07-22-2025 Albumin [Mass/Vol] 3.9 g/dL Normal 3.4-4.8 [facility] Comment on above: Order Comment: 213.1 Performed By: #### L 100.0100, L500.4050 #### [facility] Laboratory [address] [place], [address] Albumin/Globulin [Mass ratio] 1.7 {ratio} Normal 0.9-2.4 [facility] Comment on above: Order Comment: 213.1 Performed By: #### L 100.0100, L500.4050 #### [facility] Laboratory [address] [place], [address] ALK PHOS 65 U/L Normal 35-104 [facility] Comment on above: Order Comment: 213.1 Performed By: #### L 100.0100, L500.4050 #### [facility] Laboratory [address] [place], [address] ALT [Catalytic activity/Vol] 72 U/L High <=34 [facility] Comment on above: Order Comment: 213.1 Performed By: #### L 100.0100, L500.4050 #### [facility] [address] [place], [address] AST [Catalytic activity/Vol] 44 U/L High <=31 [facility] Comment on above: Order Comment: 213.1 Performed By: #### L 100.0100, L500.4050 #### [facility] Laboratory [address] [place], [address] Bilirubin [Mass/Vol] 0.22 mg/dL Normal 0.00-1.30 [facility] Comment on above: Order Comment: 213.1 Performed By: #### L 100.0100, L500.4050 #### [facility] Laboratory [address] [place], [address] BUN/CRE 20.4 RATIO High 10-20 [facility] Comment on above: Order Comment: 213.1 Performed By: #### L 100.0100, L500.4050 #### [facility] Laboratory [address] [place], [address] Calcium [Mass/Vol] 9.7 mg/dL Normal 7.6-11.0 [facility] Comment on above: Order Comment: 213.1 Performed By: #### L 100.0100, L500.4050 #### [facility] Laboratory [address] [place], [address] Chloride [Moles/Vol] 104 mmol/L Normal 98-108 [facility] Comment on above: Order Comment: 213.1 Performed By: #### L 100.0100, L500.4050 #### [facility] Laboratory [address] [place], [address] CO2 [Moles/Vol] 25.4 mmol/L Normal 21.0-32.0 [facility] Comment on above: Order Comment: 213.1 Performed By: #### L 100.0100, L500.4050 #### [facility] Laboratory [address] [place], [address] Creatinine [Mass/Vol] 0.94 mg/dL Normal 0.70-1.20 [facility] Comment on above: Order Comment: 213.1 Performed By: #### L 100.0100, L500.4050 #### [facility] Laboratory [address] [place], [address] GAP 9 Normal 5-15 [facility] Comment on above: Order Comment: 213.1 Performed By: #### L 100.0100, L500.4050 #### [facility] Laboratory [address] [place], [address] GFR/1.73 sq M.predicted among non-blacks MDRD (S/P/Bld) [Vol rate/Area] 64 mL/min/{1.73_m2} Normal >60 [facility] Comment on above: Order Comment: 213.1 Result Comment: mL/m in/1.73m2 CKD-EPI Creatinine Equation (2020) Performed By: #### L 100.0100, L500.4050 #### [facility] Laboratory [address] [place], [address] Globulin (S) [Mass/Vol] 2.4 g/dL Normal 2.2-4.2 [facility] Comment on above: Order Comment: 213.1 Performed By: #### L 100.0100, L500.4050 #### [facility] Laboratory [address] [place], [address] Glucose [Mass/Vol] 100 mg/dL High 70-99 [facility] Comment on above: Order Comment: 213.1 Performed By: #### L 100.0100, L500.4050 #### [facility] Laboratory [address] [place], [address] Potassium [Moles/Vol] 4.5 mmol/L Normal 3.3-5.1 [facility] Comment on above: Order Comment: 213.1 Performed By: #### L 100.0100, L500.4050 #### [facility] [address] [place], [address] Sodium [Moles/Vol] 138 mmol/L Normal 133-145 [facility] Comment on above: Order Comment: 213.1 Performed By: #### L 100.0100, L500.4050 #### [facility] [address] [place], [address] T PROT 6.3 g/dL Normal 5.9-8.4 [facility] Comment on above: Order Comment: 213.1 Performed By: #### L 100.0100, L500.4050 #### [facility] Laboratory [address] [place], [address] Urea nitrogen [Mass/Vol] 19 mg/dL Normal 4-19 [facility] Comment on above: Order Comment: 213.1 Performed By: #### L 100.0100, L500.4050 #### [facility] Laboratory [address] [place], [address] Basic Metabolic Profile (BMP )on 07-10-2025 BUN Normal - [facility] Comment on above: Result Comment: Canc elled via OM: Order cancelled - Patient discharged Performed By: #### L 500.2500, L100.0100 #### [facility] Laboratory [address] [place], [address] BUN/CRE Normal 10-20 [facility] Comment on above: Result Comment: Canc elled via OM: Order cancelled - Patient discharged Performed By: #### L 500.2500, L100.0100 #### [facility] Laboratory [address] [place], [address] Calcium Normal 7.6-11.0 [facility] Comment on above: Result Comment: Canc elled via OM: Order cancelled - Patient discharged Performed By: #### L 500.2500, L100.0100 #### [facility] Laboratory [address] [place], [address] CL Normal 98-108 [facility] Comment on above: Result Comment: Canc elled via OM: Order cancelled - Patient discharged Performed By: #### L 500.2500, L100.0100 #### [facility] Laboratory [address] [place], [address] CO2 Normal 21.0-32.0 [facility] Comment on above: Result Comment: Canc elled via OM: Order cancelled - Patient discharged Performed By: #### L 500.2500, L100.0100 #### [facility] Laboratory [address] [place], [address] CREAT,SERUM Normal 0.70-1.20 [facility] Comment on above: Result Comment: Canc elled via OM: Order cancelled - Patient discharged Performed By: #### L 500.2500, L100.0100 #### [facility] [address] [place], [address] eGFR Normal >60 [facility] Comment on above: Result Comment: Canc elled via OM: Order cancelled - Patient discharged Performed By: #### L 500.2500, L100.0100 #### [facility] Laboratory [address] [place], [address] GAP Normal 5-15 [facility] Comment on above: Result Comment: Canc elled via OM: Order cancelled - Patient discharged Performed By: #### L 500.2500, L100.0100 #### [facility] [address] [place], [address] GLU Normal 70-99 [facility] Comment on above: Result Comment: Canc elled via OM: Order cancelled - Patient discharged Performed By: #### L 500.2500, L100.0100 #### [facility] [address] [place], [address] Potassium Normal 3.3-5.1 [facility] Comment on above: Result Comment: Canc elled via OM: Order cancelled - Patient discharged Performed By: #### L 500.2500, L100.0100 #### [facility] Laboratory [address] [place], [address] Basic Metabolic Profile (BMP) Normal 133-145 [facility] Comment on above: Result Comment: Canc elled via OM: Order cancelled - Patient discharged Performed By: #### L 500.2500, L100.0100 #### [facility] Laboratory [address] [place], [address] CBC W/Diff, Automatedon 08- Absolute Neut Normal 2.0-7.7 [facility] Comment on above: Result Comment: Canc elled via OM: Order cancelled - Patient discharged Performed By: #### L 500.2500, L100.0100 #### [facility] Laboratory [address] [place], [address] HCT Normal 37-47 [facility] Comment on above: Result Comment: Canc elled via OM: Order cancelled - Patient discharged Performed By: #### L 500.2500, L100.0100 #### [facility] [address] [place], [address] HGB Normal 12.0-15.0 [facility] Comment on above: Result Comment: Canc elled via OM: Order cancelled - Patient discharged Performed By: #### L 500.2500, L100.0100 #### [facility] [address] [place], [address] MCH Normal 27.0-32.0 [facility] Comment on above: Result Comment: Canc elled via OM: Order cancelled - Patient discharged Performed By: #### L 500.2500, L100.0100 #### [facility] [address] [place], [address] MCHC Normal 32-36 [facility] Comment on above: Result Comment: Canc elled via OM: Order cancelled - Patient discharged Performed By: #### L 500.2500, L100.0100 #### [facility] [address] [place], [address] MCV Normal 81-99 [facility] Comment on above: Result Comment: Canc elled via OM: Order cancelled - Patient discharged Performed By: #### L 500.2500, L100.0100 #### [facility] [address] [place], [address] NEUT% Normal 47-70 [facility] Comment on above: Result Comment: Canc elled via OM: Order cancelled - Patient discharged Performed By: #### L 500.2500, L100.0100 #### [facility] [address] [place], [address] PLT Normal 150-450 [facility] Comment on above: Result Comment: Canc elled via OM: Order cancelled - Patient discharged Performed By: #### L 500.2500, L100.0100 #### [facility] [address] [place], [address] RBC Normal 4.2-5.4 [facility] Comment on above: Result Comment: Canc elled via OM: Order cancelled - Patient discharged Performed By: #### L 500.2500, L100.0100 #### [facility] [address] [place], [address] RDW CV Normal 11.6-14.6 [facility] Comment on above: Result Comment: Canc elled via OM: Order cancelled - Patient discharged Performed By: #### L 500.2500, L100.0100 #### [facility] [address] [place], [address] RDW SD Normal 35.1-43.9 [facility] Comment on above: Result Comment: Canc elled via OM: Order cancelled - Patient discharged Performed By: #### L 500.2500, L100.0100 #### [facility] [address] [place], [address] WBC Normal 4.4-11.0 [facility] Comment on above: Result Comment: Canc elled via OM: Order cancelled - Patient discharged Performed By: #### L 500.2500, L100.0100 #### [facility] [address] [place], [address] Basic Metabolic Profile (BMP )on 07-09-2025 BUN Normal 4-19 [facility] Comment on above: Result Comment: Canc elled via OM: Order cancelled - Patient discharged Performed By: #### L 100.0100, L500.2500 #### [facility] [address] [place], [address] BUN/CRE Normal 10-20 [facility] Comment on above: Result Comment: Canc elled via OM: Order cancelled - Patient discharged Performed By: #### L 100.0100, L500.2500 #### [facility] [address] [place], [address] Calcium Normal 7.6-11.0 [facility] Comment on above: Result Comment: Canc elled via OM: Order cancelled - Patient discharged Performed By: #### L 100.0100, L500.2500 #### [facility] [address] [place], [address] CL Normal 98-108 [facility] Comment on above: Result Comment: Canc elled via OM: Order cancelled - Patient discharged Performed By: #### L 100.0100, L500.2500 #### [facility] [address] [place], [address] CO2 Normal 21.0-32.0 [facility] Comment on above: Result Comment: Canc elled via OM: Order cancelled - Patient discharged Performed By: #### L 100.0100, L500.2500 #### [facility] Laboratory [address] [place], [place], [address] CREAT,SERUM Normal 0.70-1.20 [facility] Comment on above: Result Comment: Canc elled via OM: Order cancelled - Patient discharged Performed By: #### L 100.0100, L500.2500 #### [facility] [address] [place], [address] eGFR Normal >60 [facility] Comment on above: Result Comment: Canc elled via OM: Order cancelled - Patient discharged Performed By: #### L 100.0100, L500.2500 #### [facility] [address] [place], [address] GAP Normal 5-15 [facility] Comment on above: Result Comment: Canc elled via OM: Order cancelled - Patient discharged Performed By: #### L 100.0100, L500.2500 #### [facility] [address] [place], [address] GLU Normal 70-99 [facility] Comment on above: Result Comment: Canc elled via OM: Order cancelled - Patient discharged Performed By: #### L 100.0100, L500.2500 #### [facility] [address] [place], [address] Potassium Normal 3.3-5.1 [facility] Comment on above: Result Comment: Canc elled via OM: Order cancelled - Patient discharged Performed By: #### L 100.0100, L500.2500 #### [facility] [address] [place], [address] Basic Metabolic Profile (BMP) Normal 133-145 [facility] Comment on above: Result Comment: Canc elled via OM: Order cancelled - Patient discharged Performed By: #### L 100.0100, L500.2500 #### [facility] [address] [place], [address] CBC W/Diff, Automatedon 08-2 Absolute Neut Normal 2.0-7.7 [facility] Comment on above: Result Comment: Canc elled via OM: Order cancelled - Patient discharged Performed By: #### L 100.0100, L500.2500 #### [facility] [address] [place], [address] HCT Normal 37-47 [facility] Comment on above: Result Comment: Canc elled via OM: Order cancelled - Patient discharged Performed By: #### L 100.0100, L500.2500 #### [facility] [address] [place], [address] HGB Normal 12.0-15.0 [facility] Comment on above: Result Comment: Canc elled via OM: Order cancelled - Patient discharged Performed By: #### L 100.0100, L500.2500 #### [facility] [address] [place], [address] MCH Normal 27.0-32.0 [facility] Comment on above: Result Comment: Canc elled via OM: Order cancelled - Patient discharged Performed By: #### L 100.0100, L500.2500 #### [facility] [address] [place], [address] MCHC Normal 32-36 [facility] Comment on above: Result Comment: Canc elled via OM: Order cancelled - Patient discharged Performed By: #### L 100.0100, L500.2500 #### [facility] [address] [place], [address] MCV Normal 81-99 [facility] Comment on above: Result Comment: Canc elled via OM: Order cancelled - Patient discharged Performed By: #### L 100.0100, L500.2500 #### [facility] [address] [place], [address] NEUT% Normal 47-70 [facility] Comment on above: Result Comment: Canc elled via OM: Order cancelled - Patient discharged Performed By: #### L 100.0100, L500.2500 #### [facility] [address] [place], [address] PLT Normal 150-450 [facility] Comment on above: Result Comment: Canc elled via OM: Order cancelled - Patient discharged Performed By: #### L 100.0100, L500.2500 #### [facility] [address] [place], [address] RBC Normal 4.2-5.4 [facility] Comment on above: Result Comment: Canc elled via OM: Order cancelled - Patient discharged Performed By: #### L 100.0100, L500.2500 #### [facility] [address] [place], [address] RDW CV Normal 11.6-14.6 [facility] Comment on above: Result Comment: Canc elled via OM: Order cancelled - Patient discharged Performed By: #### L 100.0100, L500.2500 #### [facility] [address] [place], [address] RDW SD Normal 35.1-43.9 [facility] Comment on above: Result Comment: Canc elled via OM: Order cancelled - Patient discharged Performed By: #### L 100.0100, L500.2500 #### [facility] [address] [place], [address] WBC Normal 4.4-11.0 [facility] Comment on above: Result Comment: Canc elled via OM: Order cancelled - Patient discharged Performed By: #### L 100.0100, L500.2500 #### [facility] [address] [place], [address] Absolute lymphocyte countOrd ered By: Davin Kirkland on 07-08-2025 Lymphocytes Auto (Unsp spec) [#/Vol] 1.59 10*3/uL 0.83-4.51 [facility] Absolute neutrophil countOrd ered By: Davin Kirkland on 07-08-2025 Neutrophils (Bld) [#/Vol] 3.3 10*3/uL 2.0-7.7 [facility] Anion gap in Serum or Plasma Ordered By: Davin Kirkland on 07-08-2025 Anion gap [Moles/Vol] 8 mmol/L 04-01 [facility] Automated lymphocyte count a s percentage of total leukocytesOrdered By: Davin Kirkland on 07-08-2025 Lymphocytes/100 WBC Auto (Unsp spec) 28.3 % [facility] BUN/creatinine ratioOrdered By: Davin Kirkland on 07-08-2025 Urea nitrogen/Creatinine [Mass ratio] 18.7 mg/mg 09-06 [facility] Basic Metabolic Profile (BMP )on 07-08-2025 BUN/CRE 18.7 RATIO Normal 09-06 [facility] Comment on above: Performed By: #### L 500.2500, L501.2300, L501.5200, L100.0100 #### [facility] [address] [place], [address] Calcium [Mass/Vol] 9.3 mg/dL Normal 7.6-11.0 [facility] Comment on above: Performed By: #### L 500.2500, L501.2300, L501.5200, L100.0100 #### [facility] [address] [place], [address] Chloride [Moles/Vol] 105 mmol/L Normal 98-108 [facility] Comment on above: Performed By: #### L 500.2500, L501.2300, L501.5200, L100.0100 #### [facility] [address] [place], [address] CO2 [Moles/Vol] 23.2 mmol/L Normal 21.0-32.0 [facility] Comment on above: Performed By: #### L 500.2500, L501.2300, L501.5200, L100.0100 #### [facility] [address] [place], [address] Creatinine [Mass/Vol] 0.95 mg/dL Normal 0.70-1.20 [facility] Comment on above: Performed By: #### L 500.2500, L501.2300, L501.5200, L100.0100 #### [facility] [address] [place], [address] ECRCL 43.96 ml/min Low 50-250 [facility] Comment on above: Performed By: #### L 500.2500, L501.2300, L501.5200, L100.0100 #### [facility] [address] [place], [address] GAP 8 Normal 5-15 [facility] Comment on above: Performed By: #### L 500.2500, L501.2300, L501.5200, L100.0100 #### [facility] [address] [place], [address] GFR/1.73 sq M.predicted among non-blacks MDRD (S/P/Bld) [Vol rate/Area] 63 mL/min/{1.73_m2} Normal >60 [facility] Comment on above: Result Comment: mL/m in/1.73m2 CKD-EPI Creatinine Equation (2020) Performed By: #### L 500.2500, L501.2300, L501.5200, L100.0100 #### [facility] [address] [place], [address] Glucose [Mass/Vol] 95 mg/dL Normal 70-99 [facility] Comment on above: Performed By: #### L 500.2500, L501.2300, L501.5200, L100.0100 #### [facility] [address] [place], [address] Potassium [Moles/Vol] 4.8 mmol/L Normal 3.3-5.1 [facility] Comment on above: Performed By: #### L 500.2500, L501.2300, L501.5200, L100.0100 #### [facility] [address] [place], [address] Sodium [Moles/Vol] 137 mmol/L Normal 133-145 [facility] Comment on above: Performed By: #### L 500.2500, L501.2300, L501.5200, L100.0100 #### [facility] [address] [place], [address] Urea nitrogen [Mass/Vol] 18 mg/dL Normal 4-19 [facility] Comment on above: Performed By: #### L 500.2500, L501.2300, L501.5200, L100.0100 #### [facility] [address] [place], [address] Basophil percentageOrdered B y: Davin Kirkland on 07-08-2025 Basophils/100 WBC (Bld) 0.9 % 0-1 [facility] CBC W/Diff, Automatedon 06-19 Absolute Lymph 1.59 X10 3/uL Normal 0.83-4.51 [facility] Comment on above: Performed By: #### L 500.2500, L501.2300, L501.5200, L100.0100 #### [facility] [address] [place], [address] Absolute Neut 3.3 X10 3/uL Normal 2.0-7.7 [facility] Comment on above: Performed By: #### L 500.2500, L501.2300, L501.5200, L100.0100 #### [facility] [address] [place], [address] Basophils/100 WBC (Bld) 0.9 % Normal 0-1 [facility] Comment on above: Performed By: #### L 500.2500, L501.2300, L501.5200, L100.0100 #### [facility] [address] [place], [address] Eosinophils/100 WBC (Bld) 2.3 % Normal 0-5 [facility] Comment on above: Performed By: #### L 500.2500, L501.2300, L501.5200, L100.0100 #### [facility] [address] [place], [address] Erythrocyte distribution width (RBC) [Ratio] 13.5 % Normal 11.6-14.6 [facility] Comment on above: Performed By: #### L 500.2500, L501.2300, L501.5200, L100.0100 #### [facility] [address] [place], [address] Hematocrit (Bld) [Volume fraction] 30.5 % Low 37-47 [facility] Comment on above: Performed By: #### L 500.2500, L501.2300, L501.5200, L100.0100 #### [facility] [address] [place], [address] Hemoglobin (Bld) [Mass/Vol] 9.9 g/dL Low 12.0-15.0 [facility] Comment on above: Performed By: #### L 500.2500, L501.2300, L501.5200, L100.0100 #### [facility] [address] [place], [address] IG% 0.200 Normal 0.0-0.9 [facility] Comment on above: Result Comment: IG% - Immature Granulocytes (promyelocytes, myelocytes and metamyelocytes) > 1% indicates that a LEFT SHIFT is Present. Performed By: #### L 500.2500, L501.2300, L501.5200, L100.0100 #### [facility] [address] [place], [address] Lymphocytes/100 WBC (Bld) 28.3 % Normal 19-41 [facility] Comment on above: Performed By: #### L 500.2500, L501.2300, L501.5200, L100.0100 #### [facility] [address] [place], [address] MCH (RBC) [Entitic mass] 29.0 pg Normal 27.0-32.0 [facility] Comment on above: Performed By: #### L 500.2500, L501.2300, L501.5200, L100.0100 #### [facility] [address] [place], [address] MCHC (RBC) [Mass/Vol] 32.5 g/dL Normal 32-36 [facility] Comment on above: Performed By: #### L 500.2500, L501.2300, L501.5200, L100.0100 #### [facility] [address] [place], [address] MCV (RBC) [Entitic vol] 89.4 fL Normal 81-99 [facility] Comment on above: Performed By: #### L 500.2500, L501.2300, L501.5200, L100.0100 #### [facility] [address] [place], [address] Monocytes/100 WBC (Bld) 9.1 % Normal 0-10 [facility] Comment on above: Performed By: #### L 500.2500, L501.2300, L501.5200, L100.0100 #### [facility] [address] [place], [address] Neutrophils/100 WBC (Bld) 59.2 % Normal 47-70 [facility] Comment on above: Performed By: #### L 500.2500, L501.2300, L501.5200, L100.0100 #### [facility] [address] [place], [address] Nucleated RBC (Bld) [#/Vol] 0 10*3/uL Normal 0-5 [facility] Comment on above: Performed By: #### L 500.2500, L501.2300, L501.5200, L100.0100 #### [facility] [address] [place], [address] Platelet mean volume (Bld) [Entitic vol] 10.8 fL Normal 6.2-12.0 [facility] Comment on above: Performed By: #### L 500.2500, L501.2300, L501.5200, L100.0100 #### [facility] [address] [place], [address] Platelets (Bld) [#/Vol] 222 10*3/uL Normal 150-450 [facility] Comment on above: Performed By: #### L 500.2500, L501.2300, L501.5200, L100.0100 #### [facility] [address] [place], [address] RBC (Bld) [#/Vol] 3.41 10*6/uL Low 4.2-5.4 [facility] Comment on above: Performed By: #### L 500.2500, L501.2300, L501.5200, L100.0100 #### [facility] [address] [place], [address] RDW SD 44.7 fl High 35.1-43.9 [facility] Comment on above: Performed By: #### L 500.2500, L501.2300, L501.5200, L100.0100 #### [facility] [address] [place], [address] WBC (Bld) [#/Vol] 5.6 10*3/uL Normal 4.4-11.0 [facility] Comment on above: Performed By: #### L 500.2500, L501.2300, L501.5200, L100.0100 #### [facility] [address] [place], [address] Carbon dioxide, total [Moles /volume] in Central venous bloodOrdered By: Davin Kirkland on 07-08-2025 CO2 [Moles/Vol] 23.2 mmol/L 21.0-32.0 [facility] Chloride assayOrdered By: Delonte Kirkland on 07-08-2025 Chloride [Moles/Vol] 105 mmol/L 98-108 [facility] Electrocardiogram reportOrde red By: Ilana Kinney on 07-08-2025 EKG study [facility] Cardiovascular Services [address] [place] [address] 12 Lead EKG 07/07/25 1015 MR#: [id number] Acct: [id number] Name: PRASHANT SHEFFIELD Rep #:[id number] : 1950 75 From: Ilana sinclair MD Attending Dr: Dr. Davin Kirkland MD Status: ADM ROXIE Ordering Dr: Shaji Rosales MD Date: Location[place] [facility] [place] Sex: F C Admitted: 07/07/25 Test Reason : Blood Pressure : */* mmHG Vent. Rate : 80 BPM Atrial Rate : 80 BPM P-R Int : 110 ms QRS Dur : 82 ms QT Int : 336 ms P-R-T Axes : 48 67 78 degrees QTcB Int : 387 ms Sinus rhythm with short MD Nonspecific T wave abnormality Abnormal ECG Confirmed by MARISA MEDEROS, LENORA ([id number]), loan expeditor ARIN ORTIZ ([id number]) on07/08/2025 1:31:04 PM Referred By: Confirmed By: LENORA KINNEY MD 07/08/25 1331 Date _ Ilana Kinney MD CC: Dr. Davin Kirkland MD; Dr. Shaji Rosales MD; Dr. Ez Solitario MD ~ Signed [facility] Other Eosinophil percentageOrdered By: Davin Kirkland on 07-08-2025 Eosinophils/100 WBC (Bld) 2.3 % 0-5 [facility] Erythrocyte distribution wid th ratioOrdered By: Davin Kirkland on 07-08-2025 Erythrocyte distribution width (RBC) [Ratio] 13.5 % 11.6-14.6 [facility] Erythrocyte distribution wid th standard deviationOrdered By: Davin Kirkland on 07-08-2025 Erythrocyte distribution width (RBC) [Ratio] 44.7 fl High 35.1-43.9 [facility] Glomerular filtration rate ( GFR) estimation/1.73 sq m using serum, plasma, or whole bOrdered By: Davin Kirkland on 07-08-2025 GFR/1.73 sq M.predicted among non-blacks MDRD (S/P/Bld) [Vol rate/Area] 63 mL/min/{1.73_m2} >60 [facility] Comment on above: mL/min/1.73m2 CKD-EP I Creatinine Equation (2020) Hematocrit Auto (Bld) [Volum e fraction]Ordered By: Davin Kirkland on 07-08-2025 Hematocrit (Bld) [Volume fraction] 30.5 % Low 37-47 [facility] Hemoglobin measurementOrdere d By: Davin Kirkland on 07-08-2025 Hemoglobin (Bld) [Mass/Vol] 9.9 g/dL Low 12.0-15.0 [facility] Immature granulocytes/100 WB C Auto (Bld)Ordered By: Davin Kirkland on 07-08-2025 Immature granulocytes/100 WBC (Bld) 0.200 % 0.0-0.9 [facility] Comment on above: IG% - Immature Granu locytes (promyelocytes, myelocytes and metamyelocytes) > 1% indicates that a LEFT SHIFT is Present. Iron measurement (mass/mass) Ordered By: Davin Kirkland on 07-08-2025 Iron (Unsp spec) [Mass/Mass] 63 ug/dL 50-170 [facility] Iron+Iron Binding Capacityon 07-08-2025 Iron [Mass/Vol] 63 ug/dL Normal 50-170 [facility] Comment on above: Performed By: #### L 100.0100, L500.4050 #### [facility] [address] [place], [address] IRON SATURATION 26.0 Normal 13-59 [facility] Comment on above: Performed By: #### L 100.0100, L500.4050 #### [facility] [address] [place], [address] TIBC 245 ug/dL Low 250-450 [facility] Comment on above: Performed By: #### L 100.0100, L500.4050 #### [facility] [address] [place], [address] UIBC 182 ug/dL Low 228-428 [facility] Comment on above: Performed By: #### L 100.0100, L500.4050 #### [facility] [address] [place], [address] MCV (mean corpuscular volume ) determinationOrdered By: Davin Kirkland on 07-08-2025 MCV (RBC) [Entitic vol] 89.4 fL 81-99 [facility] Magnesiumon 07-08-2025 Magnesium [Mass/Vol] 2.1 mg/dL Normal 1.5-2.2 [facility] Comment on above: Performed By: #### L 500.2500, L501.2300, L501.5200, L100.0100 #### [facility] [address] [place], [address] Magnesium measurement (mass/ volume)Ordered By: Davin Kirkland on 07-08-2025 Magnesium (Unsp spec) [Mass/Vol] 2.1 mg/dL 1.5-2.2 [facility] Mean corpuscular hemoglobin (MCH) determinationOrdered By: Davin Kirkland on 07-08-2025 MCH (RBC) [Entitic mass] 29.0 pg 27.0-32.0 [facility] Mean corpuscular hemoglobin concentration (MCHC) determinationOrdered By: Davin Kirkland on 07-08-2025 MCHC (RBC) [Mass/Vol] 32.5 g/dL 32-36 [facility] Mean platelet volume determi nationOrdered By: Davin Kirkland on 07-08-2025 Platelet mean volume (Bld) [Entitic vol] 10.8 fL 6.2-12.0 [facility] Monocyte percentageOrdered B y: Davin Kirkland on 07-08-2025 Monocytes/100 WBC (Bld) 9.1 % 0-10 [facility] Neutrophil percentageOrdered By: Davin Kirkland on 07-08-2025 Neutrophils/100 WBC (Bld) 59.2 % 47-70 [facility] No Panel InformationOrdered By: Davin Kirkland on 07-08-2025 Unsaturated Iron Binding Capacity 182 ug/dL Low 228-428 [facility] Nucleated red blood cell per centageOrdered By: Davin Kirkland on 07-08-2025 Nucleated RBC/100 WBC (Bld) [Ratio] 0 % 0-5 [facility] Phosphoruson 07-08-2025 Phosphate [Mass/Vol] 2.9 mg/dL Normal 2.7-4.5 [facility] Comment on above: Performed By: #### L 500.2500, L501.2300, L501.5200, L100.0100 #### [facility] [address] [facility] [place], [address] Platelet countOrdered By: Delonte Kirkland on 07-08-2025 Platelets (Bld) [#/Vol] 222 10*3/uL 150-450 [facility] Potassium measurement (mass/ volume)Ordered By: Davin Kirkland on 07-08-2025 Potassium (Unsp spec) [Mass/Vol] 4.8 mmol/L 3.3-5.1 [facility] RBC Auto (Bld) [#/Vol]Ordere d By: Davin Kirkland on 07-08-2025 RBC (Bld) [#/Vol] 3.41 10*6/uL Low 4.2-5.4 [facility] Serum creatinine measurement (mass/volume)Ordered By: Davin Kirkland on 07-08-2025 Creatinine [Mass/Vol] 0.95 mg/dL 0.70-1.20 [facility] Serum glucose measurement (m ass/volume)Ordered By: Davin Kirkland on 07-08-2025 Glucose [Mass/Vol] 95 mg/dL 70-99 [facility] Serum or plasma calcium carlos urement (mass/volume)Ordered By: Davin Kirkland on 07-08-2025 Calcium [Mass/Vol] 9.3 mg/dL 7.6-11.0 [facility] Serum or plasma iron saturat ion measurement (mass fraction)Ordered By: Davin Kirkland on 07-08-2025 Iron saturation [Mass fraction] 26.0 % 13-59 [facility] Serum or plasma urea nitroge n measurement (mass/volume)Ordered By: Davin Kirkland on 07-08-2025 Urea nitrogen [Mass/Vol] 18 mg/dL 4-19 [facility] Sodium levelOrdered By: Wang Kirkland on 07-08-2025 Sodium [Moles/Vol] 137 mmol/L 133-145 [facility] TSH DL <= 0.005 mIU/L QnOrde red By: Davin Kirkland on 07-08-2025 TSH Qn 1.940 uIU/mL 0.300-4.200 [facility] Thyroid Stim Hormone (TSH)on 07-08-2025 TSH 1.940 uIU/mL Normal 0.300-4.200 [facility] Comment on above: Performed By: #### L 100.0100, L500.4050 #### [facility] [address] [place], [address] Vitamin B12on 07-08-2025 Cobalamin (Vitamin B12) [Mass/Vol] 1045 pg/mL High 180-914 [facility] Comment on above: Performed By: #### L 100.0100, L500.4050 #### [facility] [address] [facility] [place], [address] Vitamin B12 ser/plasOrdered By: Davin Kirkland on 07-08-2025 Cobalamin (Vitamin B12) [Mass/Vol] 1045 pg/mL High 180-914 [facility] White blood cell (WBC) count Ordered By: Davin Kirkland on 07-08-2025 WBC (Bld) [#/Vol] 5.6 10*3/uL 4.4-11.0 [facility] 12 Lead EKGon 07-07-2025 12 Lead EKG [facility] Cardiovascular Services [address] [place] [address] 12 Lead EKG 07/07/25 1015 MR#: [id number] Acct: [id number] Name: PRASHANT SHEFFIELD Rep #: [id number] : 1950 75 From: Ilana Kinney MD Attending Dr: Dr. Davin Kirkland MD Status: ADM ROXIE Ordering Dr: Shaji Rosales MD Date: 07/07/25 Location[place] [facility] [place] Sex: F C Admitted: 07/07/25 Test Reason : Blood Pressure : */* mmHG Vent. Rate : 80 BPM Atrial Rate : 80 BPM P-R Int : 110 ms QRS Dur : 82 ms QT Int : 336 ms P-R-T Axes : 48 67 78 degrees QTcB Int : 387 ms Sinus rhythm with short MD Nonspecific T wave abnormality Abnormal ECG Confirmed by MARISA MEDEROS, LENORA ([id number]), loan expeditor RAIN ORTIZ ([id number]) on 07/08/2025 1:31:04 PM Referred By: Confirmed By: LENORA KINNEY MD 07/08/25 1331 Date Ilana Kinney MD CC: Dr. Davin Kirkland MD; Dr. Shaji Rosales MD; Dr. Ez Solitario MD Signed Normal [facility] Absolute lymphocyte countOrd ered By: Shaji Rosales on 08-20-2025 Lymphocytes Auto (Unsp spec) [#/Vol] 1.21 10*3/uL 0.83-4.51 [facility] Absolute neutrophil countOrd ered By: Shaji Rosales on 07-07-2025 Neutrophils (Bld) [#/Vol] 3.5 10*3/uL 2.0-7.7 [facility] Anion gap in Serum or Plasma Ordered By: Shaji Rosales on 07-07-2025 Anion gap [Moles/Vol] 12 mmol/L 04-01 [facility] Automated lymphocyte count a s percentage of total leukocytesOrdered By: Shaji Rosales on 07-07-2025 Lymphocytes/100 WBC Auto (Unsp spec) 22.8 % [facility] BUN/creatinine ratioOrdered By: Shaji Rosales on 07-07-2025 Urea nitrogen/Creatinine [Mass ratio] 19.1 mg/mg 09-06 [facility] Basic Metabolic Profile (BMP )on 07-07-2025 BUN/CRE 19.1 RATIO Normal 09-06 [facility] Comment on above: Performed By: #### L 100.0100, L500.2500 #### [facility] Laboratory [address] [place], [address] Calcium [Mass/Vol] 9.7 mg/dL Normal 7.6-11.0 [facility] Comment on above: Performed By: #### L 100.0100, L500.2500 #### [facility] Laboratory [address] [place], [address] Chloride [Moles/Vol] 99 mmol/L Normal 98-108 [facility] Comment on above: Performed By: #### L 100.0100, L500.2500 #### [facility] Laboratory [address] [place], [address] CO2 [Moles/Vol] 23.7 mmol/L Normal 21.0-32.0 [facility] Comment on above: Performed By: #### L 100.0100, L500.2500 #### [facility] Laboratory [address] [place], [address] Creatinine [Mass/Vol] 1.03 mg/dL Normal 0.70-1.20 [facility] Comment on above: Performed By: #### L 100.0100, L500.2500 #### [facility] Laboratory [address] [place], [address] ECRCL 41.44 ml/min Low 50-250 [facility] Comment on above: Performed By: #### L 100.0100, L500.2500 #### [facility] Laboratory [address] [place], [address] GAP 12 Normal 5-15 [facility] Comment on above: Performed By: #### L 100.0100, L500.2500 #### [facility] Laboratory [address] [place], [address] GFR/1.73 sq M.predicted among non-blacks MDRD (S/P/Bld) [Vol rate/Area] 57 mL/min/{1.73_m2} Low >60 [facility] Comment on above: Result Comment: mL/m in/1.73m2 CKD-EPI Creatinine Equation (2020) Performed By: #### L 100.0100, L500.2500 #### [facility] Laboratory [address] [place], [address] Glucose [Mass/Vol] 112 mg/dL High 70-99 [facility] Comment on above: Performed By: #### L 100.0100, L500.2500 #### [facility] [address] [place], [address] Potassium [Moles/Vol] 4.2 mmol/L Normal 3.3-5.1 [facility] Comment on above: Performed By: #### L 100.0100, L500.2500 #### [facility] [address] [place], [address] Sodium [Moles/Vol] 135 mmol/L Normal 133-145 [facility] Comment on above: Performed By: #### L 100.0100, L500.2500 #### [facility] [address] [place], [address] Urea nitrogen [Mass/Vol] 20 mg/dL High 4-19 [facility] Comment on above: Performed By: #### L 100.0100, L500.2500 #### [facility] [address] [place], [address] Basophil percentageOrdered B y: Shaji Rosales on 07-07-2025 Basophils/100 WBC (Bld) 0.9 % 0-1 [facility] Bilirubin Test strip Ql (U)O rdered By: Shaji Rosales on 07-07-2025 Bilirubin Ql (U) Negative Negative [facility] CBC W/Diff, Automatedon 06-19 Absolute Lymph 1.21 X10 3/uL Normal 0.83-4.51 [facility] Comment on above: Performed By: #### L 100.0100, L500.2500 #### [facility] Laboratory [address] [place], [address] Absolute Neut 3.5 X10 3/uL Normal 2.0-7.7 [facility] Comment on above: Performed By: #### L 100.0100, L500.2500 #### [facility] [address] [place], [address] Basophils/100 WBC (Bld) 0.9 % Normal 0-1 [facility] Comment on above: Performed By: #### L 100.0100, L500.2500 #### [facility] [address] [place], [address] Eosinophils/100 WBC (Bld) 1.5 % Normal 0-5 [facility] Comment on above: Performed By: #### L 100.0100, L500.2500 #### [facility] Laboratory [address] [place], [address] Erythrocyte distribution width (RBC) [Ratio] 13.4 % Normal 11.6-14.6 [facility] Comment on above: Performed By: #### L 100.0100, L500.2500 #### [facility] Laboratory [address] [place], [address] Hematocrit (Bld) [Volume fraction] 34.7 % Low 37-47 [facility] Comment on above: Performed By: #### L 100.0100, L500.2500 #### [facility] Laboratory [address] [place], [address] Hemoglobin (Bld) [Mass/Vol] 11.1 g/dL Low 12.0-15.0 [facility] Comment on above: Performed By: #### L 100.0100, L500.2500 #### [facility] Laboratory [address], [address] IG% 0.400 Normal 0.0-0.9 [facility] Comment on above: Result Comment: IG% - Immature Granulocytes (promyelocytes, myelocytes and metamyelocytes) > 1% indicates that a LEFT SHIFT is Present. Performed By: #### L 100.0100, L500.2500 #### [facility] Laboratory [address], [address] Lymphocytes/100 WBC (Bld) 22.8 % Normal 19-41 [facility] Comment on above: Performed By: #### L 100.0100, L500.2500 #### [facility] Laboratory [address] [place], [address] MCH (RBC) [Entitic mass] 28.8 pg Normal 27.0-32.0 [facility] Comment on above: Performed By: #### L 100.0100, L500.2500 #### [facility] Laboratory [address] [place], [address] MCHC (RBC) [Mass/Vol] 32.0 g/dL Normal 32-36 [facility] Comment on above: Performed By: #### L 100.0100, L500.2500 #### [facility] [address] [place], [address] MCV (RBC) [Entitic vol] 90.1 fL Normal 81-99 [facility] Comment on above: Performed By: #### L 100.0100, L500.2500 #### [facility] [address] [place], [address] Monocytes/100 WBC (Bld) 8.3 % Normal 0-10 [facility] Comment on above: Performed By: #### L 100.0100, L500.2500 #### [facility] [address] [place], [address] Neutrophils/100 WBC (Bld) 66.1 % Normal 47-70 [facility] Comment on above: Performed By: #### L 100.0100, L500.2500 #### [facility] Laboratory [address] [place], [address] Nucleated RBC (Bld) [#/Vol] 0 10*3/uL Normal 0-5 [facility] Comment on above: Performed By: #### L 100.0100, L500.2500 #### [facility] Laboratory [address] [place], [address] Platelet mean volume (Bld) [Entitic vol] 10.7 fL Normal 6.2-12.0 [facility] Comment on above: Performed By: #### L 100.0100, L500.2500 #### [facility] Laboratory [address] [place], [address] Platelets (Bld) [#/Vol] 239 10*3/uL Normal 150-450 [facility] Comment on above: Performed By: #### L 100.0100, L500.2500 #### [facility] Laboratory [address] [place], [address] RBC (Bld) [#/Vol] 3.85 10*6/uL Low 4.2-5.4 [facility] Comment on above: Performed By: #### L 100.0100, L500.2500 #### [facility] Laboratory [address] [place], [address] RDW SD 44.1 fl High 35.1-43.9 [facility] Comment on above: Performed By: #### L 100.0100, L500.2500 #### [facility] Laboratory [address] [place], [address] WBC (Bld) [#/Vol] 5.3 10*3/uL Normal 4.4-11.0 [facility] Comment on above: Performed By: #### L 100.0100, L500.2500 #### [facility] Laboratory [address] [place], [address] CPK Total, Creatine Kinaseon 07-07-2025 CPK TOTAL 58 U/L Normal 24-195 [facility] Comment on above: Performed By: #### L 100.0100, L500.4050 #### [facility] Laboratory [address] [place], [address] CRPon 07-07-2025 C-REACTIVE PROT < 3.00 Normal 0.0-3.0 [facility] Comment on above: Performed By: #### L 100.0100, L500.4050 #### [facility] Laboratory [address] [place], [address] Carbon dioxide, total [Moles /volume] in Central venous bloodOrdered By: Shaji Rosales on 07-07-2025 CO2 [Moles/Vol] 23.7 mmol/L 21.0-32.0 [facility] Chest PA and Lateralon 07-07 Chest PA and Lateral [facility] Imaging Services [address] [place] [address] Chest PA and Lateral MR#: [id number] Acct: [id number] Name: PRASHANT SHEFFIELD Rep #: [id number] : 1950 F 75 From: Rufus Gray MD PCP: Dr. Ez Solitario MD Status: REG ER Study: Chest PA and Lateral Date of Exam: 07/07/25 Exam# [id number] Ordering Dr: Shaji Rosales MD PROCEDURE: CHEST [...] Chest CT correlation is recommended. [facility]: Dr. Shaji Rosales MD; Dr. Ez Solitario MD Wholesale Manager: Signed Normal [facility] Chloride assayOrdered By: Dimitri Rosales on 07-07-2025 Chloride [Moles/Vol] 99 mmol/L 98-108 [facility] Emergency Department Summary on 07-07-2025 Emergency Department Summary [facility] Medical Records Department [address] [place] [address] Emergency Department Summary 07/07/25 MR#: [id number] Acct: [id number] Name: PRASHANT SHEFFIELD Rep #: [id number] : 1950 75 From: Shjai Rosales MD PCP: Dr. Ez Solitario MD Status:ADM ROXIE Location: DC3 [id number] HPI History of Present Illness Chief Complaint: [...] similar symptoms: No Recent Illness/Hospitalizat ion: No PFSH [facility] Medical History Dysphagia History of 1 Parkinson [...] bisacodyl 10 mg rectal suppository 10 mg MD .PRN X 1 PRN Constipati on 08/20/23 [...] Reaction Status Date / Time codeine AdvReac ANALIY Verified 09/03/23 13:40 DREAMS" DOES NOT LIKE TO TAKE IT Family History Father , at 51 YOA due to SD CAD (coronary artery disease) Mother , she [...] Narrative Exam (more content not included)... Normal [facility] Eosinophil percentageOrdered By: Shaji Rosales on 07-07-2025 Eosinophils/100 WBC (Bld) 1.5 % 0-5 [facility] Erythrocyte Sed Rateon 07-07 SED RATE 2 mm/hr Normal 0-30 [facility] Comment on above: Performed By: #### L 100.0100, L500.4050 #### [facility] Laboratory [address] [place], [address] Erythrocyte distribution wid th ratioOrdered By: Shaji Rosales on 07-07-2025 Erythrocyte distribution width (RBC) [Ratio] 13.4 % 11.6-14.6 [facility] Erythrocyte distribution wid th standard deviationOrdered By: Shaji Rosales on 07-07-2025 Erythrocyte distribution width (RBC) [Ratio] 44.1 fl High 35.1-43.9 [facility] Erythrocyte sedimentation ra teOrdered By: Davin Kirkland on 07-07-2025 ESR (Bld) [Velocity] 2 mm/h 0-30 [facility] Glomerular filtration rate ( GFR) estimation/1.73 sq m using serum, plasma, or whole bOrdered By: Shaji Rosales on 07-07-2025 GFR/1.73 sq M.predicted among non-blacks MDRD (S/P/Bld) [Vol rate/Area] 57 mL/min/{1.73_m2} Low >60 [facility] Comment on above: mL/min/1.73m2 CKD-EP I Creatinine Equation (2020) H AND P Exam - Hospitaliston 07-07-2025 H&P Exam - Hospitalist [facility] Medical Records Department [address] [place] [address] H P Exam - Hospitalist 07/07/25 1158 MR#: [id number] Acct: [id number] Name: PRASHANT SHEFFIELD Rep #: [id number] : 1950 75 From: Davin Kirkland MD PCP: Dr. Ez Solitario MD Status:ADM ROXIE Location: [place] [address] HPI - General General Date of Admission: 07/07/25 Date of Service: 07/07/25 Chief Complaint: Generalized weakness HPI Narrative PRASHANT SHEFFIELD, is a 75 F with past medical history significant for Parkinson's disease resident [facility] who was brought to the emergency department with generalized weakness. Per patient she recently had medication adjustment mainly for anxiety since then she has developed progressive generalized weakness. Patient also complains of muscle aches and difficulty with both handgrips. Workup in the ED came back unremarkable. Patient admitted to regular nursing floor for subsequent eval with consultation placed to PT/OT/SW [facility] Medical History Dysphagia History of 1 Parkinson [...] bisacodyl 10 mg rectal suppository 10 mg MD .PRN X 1 PRN Constipati on 08/20/23 Unknown Rx #1 ea buspirone 5 mg tablet 5 mg PO TID #1 TAB 08/20/23 Unknow n Rx citalopram 20 mg tablet 20 mg PO DAILY DEPRESSION #1 TAB 1 08/01/23 Rx loperamide 2 mg capsule 2 mg PO Q6H PRN PRN Diarrhea #1 ca p 10/03/23 Unknown Rx melatonin 3 mg tablet 3 [...] Father , at 51 YOA due to SD CAD (coronary artery disease) Mother , she [...] H Blood (more content not included)... Normal [facility] Hematocrit Auto (Bld) [Volum e fraction]Ordered By: Shaji Rosales on 07-07-2025 Hematocrit (Bld) [Volume fraction] 34.7 % Low 37-47 [facility] Hemoglobin measurementOrdere d By: Shaji Rosales on 07-07-2025 Hemoglobin (Bld) [Mass/Vol] 11.1 g/dL Low 12.0-15.0 [facility] Immature granulocytes/100 WB C Auto (Bld)Ordered By: Shaji Rosales on 07-07-2025 Immature granulocytes/100 WBC (Bld) 0.400 % 0.0-0.9 [facility] Comment on above: IG% - Immature Granu locytes (promyelocytes, myelocytes and metamyelocytes) > 1% indicates that a LEFT SHIFT is Present. Ketones Test strip Ql (U)Ord ered By: Shaji Rosales on 07-07-2025 Ketones Ql (U) Negative Negative [facility] MCV (mean corpuscular volume ) determinationOrdered By: Shaji Rosales on 07-07-2025 MCV (RBC) [Entitic vol] 90.1 fL 81-99 [facility] Mean corpuscular hemoglobin (MCH) determinationOrdered By: Shaji Rosales on 07-07-2025 MCH (RBC) [Entitic mass] 28.8 pg 27.0-32.0 [facility] Mean corpuscular hemoglobin concentration (MCHC) determinationOrdered By: Shaji Rosales on 07-07-2025 MCHC (RBC) [Mass/Vol] 32.0 g/dL 32-36 [facility] Mean platelet volume determi nationOrdered By: Shaji Rosales on 07-07-2025 Platelet mean volume (Bld) [Entitic vol] 10.7 fL 6.2-12.0 [facility] Microscopic analysis of urin e for red blood cells (RBC)Ordered By: Shaji Rosales on 08-20-2025 Microscopic analysis of urine for red blood cells (RBC) 0 SEEN /hpf 0-5 [facility] Monocyte percentageOrdered B y: Shaji Rosales on 07-07-2025 Monocytes/100 WBC (Bld) 8.3 % 0-10 [facility] Mucus LM Ql (Urine sed)Order ed By: Shaji Rosales on 07-07-2025 Mucus Ql (Urine sed) 0 SEEN /hpf [facility] Neutrophil percentageOrdered By: Shaji Rosales on 07-07-2025 Neutrophils/100 WBC (Bld) 66.1 % 47-70 [facility] Nitrite Test strip Ql (U)Ord ered By: Shaji Rosales on 07-07-2025 Nitrite Ql (U) Negative Negative [facility] Nucleated red blood cell per centageOrdered By: Shaji Rosales on 07-07-2025 Nucleated RBC/100 WBC (Bld) [Ratio] 0 % 0-5 [facility] Platelet countOrdered By: Dimitri Rosales on 07-07-2025 Platelets (Bld) [#/Vol] 239 10*3/uL 150-450 [facility] Potassium measurement (mass/ volume)Ordered By: Shaji Rosales on 07-07-2025 Potassium (Unsp spec) [Mass/Vol] 4.2 mmol/L 3.3-5.1 [facility] Protein Test strip Ql (U)Ord ered By: Shaji Rosales on 07-07-2025 Protein Ql (U) 30 mg/dl High Negative [facility] RBC Auto (Bld) [#/Vol]Ordere d By: Shaji Rosales on 07-07-2025 RBC (Bld) [#/Vol] 3.85 10*6/uL Low 4.2-5.4 [facility] Serum creatinine measurement (mass/volume)Ordered By: Shaji Rosales on 07-07-2025 Creatinine [Mass/Vol] 1.03 mg/dL 0.70-1.20 [facility] Serum glucose measurement (m ass/volume)Ordered By: Shaji Rosales on 07-07-2025 Glucose [Mass/Vol] 112 mg/dL High 70-99 [facility] Serum or plasma C reactive p rotein measurement (mass/volume)Ordered By: Davin Kirkland on 07-07-2025 CRP [Mass/Vol] mg/L 0.0-3.0 [facility] Serum or plasma calcium carlos urement (mass/volume)Ordered By: Shaji Rosales on 07-07-2025 Calcium [Mass/Vol] 9.7 mg/dL 7.6-11.0 [facility] Serum or plasma creatine kin ase activityOrdered By: Davin Kirkland on 07-07-2025 CK [Catalytic activity/Vol] 58 U/L 24-195 [facility] Serum or plasma urea nitroge n measurement (mass/volume)Ordered By: Shaji Rosales on 07-07-2025 Urea nitrogen [Mass/Vol] 20 mg/dL High 4-19 [facility] Sodium levelOrdered By: Shaji Rosales on 07-07-2025 Sodium [Moles/Vol] 135 mmol/L 133-145 [facility] Squamous epithelial cells de tection in urine sediment by light microscopyOrdered By: Shaji Rosales on 07-07-2025 Epithelial cells.squamous LM Ql (Urine sed) 0 SEEN /hpf - [facility] Urinalysis, Completeon 07-07 BACTERIA 0 SEEN Normal None Seen [facility] Comment on above: Order Comment: 213.1 Performed By: #### L 100.0100, L500.2500 #### [facility] Laboratory [address] [place], [address] EPI,SQUAMOUS 0 SEEN Normal - [facility] Comment on above: Order Comment: 213.1 Performed By: #### L 100.0100, L500.2500 #### [facility] Laboratory [address] [place], [address] Mucus Ql (Urine sed) 0 SEEN Normal [facility] Comment on above: Order Comment: 213.1 Performed By: #### L 100.0100, L500.2500 #### [facility] Laboratory [address] [place], [address] RBC 0 SEEN Normal 0-5 [facility] Comment on above: Order Comment: 213.1 Performed By: #### L 100.0100, L500.2500 #### [facility] Laboratory [address] [place], [address] WBC 0 SEEN Normal 0-5 [facility] Comment on above: Order Comment: 213.1 Performed By: #### L 100.0100, L500.2500 #### [facility] Laboratory [address] [place], [address] Urine clarityOrdered By: Kalin Rosales on 07-07-2025 Clarity (U) Clear Clear [facility] Urine color determinationOrd ered By: Shaji Rosales on 07-07-2025 Color (U) Yellow Yellow [facility] Urine glucose detectionOrder ed By: Shaji Rosales on 07-07-2025 Glucose Ql (U) Normal mg/dl Normal [facility] Urine leukocyte esterase det ection by dipstickOrdered By: Shaji Rosales on 07-07-2025 Leukocyte esterase Test strip Ql (U) Negative Negative [facility] Urine pHOrdered By: Shaji Denton ghdani on 07-07-2025 pH (U) 6.0 [pH] 5.0 - 8.0 [facility] Urine sediment bacteria coun t by microscopy (number/high power field)Ordered By: Shaji Rosales on 07-07-2025 Bacteria LM.HPF (Urine sed) [#/Area] 0 /[HPF] None Seen [facility] Urine specific gravity measu rementOrdered By: Shaji Rosales on 07-07-2025 Specific gravity (U) [Rel density] 1.010 1.002-1.030 [facility] Urine urobilinogen measureme ntOrdered By: Shaji Rosales on 07-07-2025 Urobilinogen Ql (U) Normal mg/dl Normal [facility] White blood cell (WBC) count Ordered By: Shaji Rosales on 07-07-2025 WBC (Bld) [#/Vol] 5.3 10*3/uL 4.4-11.0 [facility] White blood cell countOrdere d By: Shaji Rosales on 07-07-2025 White blood cell count 0 SEEN /hpf 0-5 [facility] D/C Summary- SPon 03-10-2025 D/C Summary- SP [facility] Speech Pathology [facility] [address] [place] [address] [address] [place] [address] / REHABILITATION SERVICES DISCHARGE SUMMARY MR#: [id number] Acct: [id number] Name: PRASHANT SHEFFIELD Rep #: [id number] : 1950 75 From: Malgorzata Martinez M.S., [facility]-INVESTIGATOR Referring Dr.: LIDYA Sandhu Status: REG RCR Insurance: MEDICARE PART A B [facility] Discharge Summary Discharged: Discharge: PRASHANT SHEFFIELD was seen for initial speech therapy voice and dysphagia evaluation at [facility] on 11/23/2024 secondary to dx [...] Solitario MD; LIDYA Sandhu RE Signed Normal [facility] CNOVon 03-08-2025 CNOV Office Visit (FAMIzabelaWS) SHEFFIELDPRASHANT Vicky ([id number]) 1950 F Date Time Provider Department 03/08/25 2:00 PM MARY ORTIZ During your visit today, we recorded the following information about you: Pulse Respiration Blood pressure Weight 57/minute 16/minute 118/68 64 kg Mary Ortiz APRN.CNP 03/09/2025 12:22 PM Signed 03/08/2025 Patient presents [...] depression 02/07/2016 Atrophic vaginitis 06/09/2019 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) 07/08/2024 Dry mouth 03/26/2016 Elevated hemoglobin A1c [...] and with stage 3a chronic kidney disease (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 Mixed hyperlipidemia 02/07/2016 Mobility impaired 07/25/2023 Osteopenia, senile 12/15/2019 DXA: 11/2019 Parkinson's disease (HCC) 02/07/[address] Man in [facility] Stage 3a chronic kidney disease (HCC) [...] Take 1 tablet by mouth once daily. hdjqwca-kvdvenlle-cy tamin D3 (CALCIUM 500+D) 500 mg-5 mcg [...] two times a day. Per Neurology at [facility] Melatonin 5 mg cap Take 2 capsules by mouth daily at bedtime. cyanocobalamin (VITAMIN B-12) 1,000 mcg tab Take 1 tablet by mouth once daily. citalopram hydrobromide (CELEXA) 10 mg tablet Take 1 tablet by mouth once daily. Take with 20 mg dose for total of 30mg daily, getting from Neurology at [facility] citalopram (CELEXA) 20 mg tablet Take 1 tablet by mouth daily at bedtime. Take with 10mg dose for total of 30mg daily. Per neurology at [facility] estradiol (ESTRACE) 0.01 % (0.1 mg/gram) vaginal [...] appearing, al (more content not included)... Normal [facility] BD DXA - AXIAL SKELETONon BD DXA [...] years, Gender: Female SCANNER INFORMATION: DXA Model: [employer] - [employer] C 89813 Date Scanned: 02/22/2025 12:59 PM CLINICAL HISTORY: [...] FOR MORE INFORMATION ABOUT DIAGNOSIS AND TREATMENT: [facility] Metabolic Bone Disease:? www.[email or web address]/arthriti s/osteo National Osteoporosis Foundation:? www.nof.org International Society of Clinical Densitometry www.iscd.org Wholesale Manager: PSCB Transcribe Date/Time: Feb 22 2025 1:13P Dictated by : AUSTYN FOUNTAIN MD This examination was interpreted and the report reviewed and electronically signed by: AUSTYN FOUNTAIN MD on Feb 22 2025 1:40PM EST [id number] CN -1.8 Normal [facility] BD DXA TRABECLR BONE SCORE ( TBS)on [...] years, Gender: Female SCANNER INFORMATION: DXA Model: [employer] - [employer] C 43593 Date Scanned: 02/22/2025 12:59 PM CLINICAL HISTORY: [...] FOR MORE INFORMATION ABOUT DIAGNOSIS AND TREATMENT: [facility] Metabolic Bone Disease:? www.[email or web address]/yohana s/osteo National Osteoporosis Foundation:? www.nof.org International Society of Clinical Densitometry www.iscd.org Wholesale Manager: OG Transcribe Date/Time: Feb 22 2025 1:13P Dictated by : AUSTYN FOUNTAIN MD This examination was interpreted and the report reviewed and electronically signed by: AUSTYN FOUNTAIN MD on Feb 22 2025 1:40PM EST [id number] CN -1.8 Normal [facility] DXA Femur [T-score] Bone javier gasca 02-22-2025 * * *Final Report* * * DATE OF EXAM: Feb 22 2025 12:59PM [facility] 0801 - BD DXA TRABECLR BONE SCORE (TBS) / PROCEDURE REASON: Asymptomatic menopause * * * * Physician Interpretation * * * * EXAMINATION: DXA BONE DENSITOMETRY BD DXA - AXIAL SKELETON, BD DXA TRABECLR BONE SCORE (TBS) PATIENT DEMOGRAPHICS: Age: 74 years, Gender: Female SCANNER INFORMATION: DXA Model: [employer] - [employer] C 62456 Date Scanned: 02/22/2025 12:59 PM CLINICAL HISTORY: [...] Normal (> 1.310) DIVISION OF RADIOLOGY Provider, [facility] [place] - 02/22/2025 * * *Final Report* * * DATE OF EXAM: Feb 22 2025 12:59PM [facility] 0801 - BD DXA TRABECLR BONE SCORE (TBS) / PROCEDURE REASON: Asymptomatic menopause * * * * Physician Interpretation * * * * EXAMINATION: DXA BONE DENSITOMETRY BD DXA - AXIAL SKELETON, BD DXA TRABECLR BONE SCORE (TBS) PATIENT DEMOGRAPHICS: Age: 74 years, Gender: Female SCANNER INFORMATION: DXA Model: [employer] - [employer] C 27431 Date Scanned: 02/22/2025 12:59 PM CLINICAL HISTORY: [...] FOR MORE INFORMATION ABOUT DIAGNOSIS AND TREATMENT: [facility] Metabolic Bone Disease:? [email or web address]/yohana [email or web address] National Osteoporosis Foundation:? www.nof.org International Society of Clinical Densitometry www.iscd.org Wholesale Manager: OG Transcribe Date/Time: Feb 22 2025 1:13P Dictated by : AUSTYN FOUNTAIN MD This examination was interpreted and the report reviewed and electronically signed by: AUSTYN FOUNTAIN MD on Feb 22 2025 1:40PM EST [facility] DXA Skeletal system.axial Vi ews for bone [...] years, Gender: Female SCANNER INFORMATION: DXA Model: [employer] - [employer] C 98585 Date Scanned: 02/22/2025 12:59 PM CLINICAL HISTORY: [...] Normal (> 1.310) DIVISION OF RADIOLOGY Provider, [facility] [place] - 02/22/2025 * * *Final Report* * * DATE OF EXAM: Feb 22 2025 12:59PM [facility] 0804 - BD DXA - AXIAL SKELETON / PROCEDURE REASON: Asymptomatic menopause * * * * Physician Interpretation * * * * EXAMINATION: DXA BONE DENSITOMETRY BD DXA - AXIAL SKELETON, BD DXA TRABECLR BONE SCORE (TBS) PATIENT DEMOGRAPHICS: Age: 74 years, Gender: Female SCANNER INFORMATION: DXA Model: [employer] - [employer] C 66585 Date Scanned: 02/22/2025 12:59 PM CLINICAL HISTORY: [...] FOR MORE INFORMATION ABOUT DIAGNOSIS AND TREATMENT: [facility] Metabolic Bone Disease:? www.ccf.org/arthkaterin s/osteo National Osteoporosis Foundation:? www.nof.org International Society of Clinical Densitometry www.iscd.org Wholesale Manager: PSCB Transcribe Date/Time: Feb 22 2025 1:13P Dictated by : AUSTYN FOUNTAIN MD This examination was interpreted and the report reviewed and electronically signed by: AUSTYN FOUNTAIN MD on Feb 22 2025 1:40PM EST [facility] SONIA SCREENING W TOMRadha 02-22 SONIA SCREENING W GERMAN * * *Final Report* * * DATE OF EXAM: Feb 22 2025 1:36PM [facility] 0582 - SONIA SCREENING W GERMAN / PROCEDURE REASON: Encounter for screening mammogram for breast cancer * * * * Physician Interpretation * * * * RESULT: [address] [address] [place] [address] #[id number] - [facility] SCREENING W GERMAN HISTORY: 74 year-old patient [...] Ishaan Bruner M.D. Electronically signed on: 02/25/2025 Wholesale Manager: MEHDI Transcribe Date/Time: Feb 22 2025 12:56P Dictated by: ISHAAN BRUNER MD This examination was interpreted and the report reviewed and electronically signed by: ISHAAN BRUNER MD on Feb 25 2025 10:49PM EST [id number] CN Normal [facility] No Panel InformationOrdered By: [facility] Provider on 02-22-2025 LOWEST T-SCORE -1.8 [facility] No Panel Informationon 02-22 IMPRESSION: THE LOWEST [...] FOR MORE INFORMATION ABOUT DIAGNOSIS AND TREATMENT: [facility]abolic Bone Disease:? www.ccf.org/yohana s/osteo National Osteoporosis Foundation:? www.nof.org International Society of Clinical Densitometry www.iscd.org Wholesale Manager: OG Transcribe Date/Time: Feb 22 2025 1:13P Dictated by : AUSTYN FOUNTAIN MD This examination was interpreted and the report reviewed and electronically signed by: AUSTYN FOUNTAIN MD on Feb 22 2025 1:40PM [facility] DIVISION OF RADIOLOGY Radiology Study observation (narrative) [facility] Bacteria Ur Culton Bacteria identified [...] , Intermediate >32 , Resistant >64 Abnormal [facility] Comment on above: Performed By: #### 6 30-4 ####[facility] LABCLIA [id number] [address] [place] CNOVon 01-11-2025 CNOV [facility] PRASHANT SHEFFIELD ([id number]) 1950 F Date Time Provider Department 01/11/25 12:40 PM [facility] During your visit today, we recorded the [...] Planning on going to assisted living at [facility]. Past medical history, appointments, medications, allergies reviewed. Previous Medical History PAST MEDICAL HISTORY Diagnosis Date Alcohol use 02/07/2016 1-2 drinks a day. 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) 07/08/2024 Dry mouth 03/26/2016 Elevated hemoglobin A1c [...] disease (HCC) 02/07/[address] Man in [facility] Stage 3a chronic kidney disease (HCC) [...] area, Cervic (more content not included)... Normal [facility] CBC W Auto Differential pane l (Bld)on 01-05-2025 Basophils (Bld) [#/Vol] 0.05 10*3/uL Normal <0.11 [facility] Comment on above: Order Comment: Speci men Type: BLOOD SPECIMENOrdering Facility: [facility] Address: [address] [place] [address] Performed By: #### 5 7021-8 ####[facility] LABCLIA [id number] [place] [address] [place] Basophils/100 WBC (Bld) 0.7 % Normal [facility] Comment on above: Order Comment: Speci men Type: BLOOD SPECIMENOrdering Facility: [facility] Address: [address] [place] [address] Performed By: #### 5 7021-8 ####[facility] LABCLIA [id number] [place] [address] [place] Differential cell count method Nom (Bld) Auto Normal [facility] Comment on above: Order Comment: Speci men Type: BLOOD SPECIMENOrdering Facility: [facility] Address: [address] [place] [address] Performed By: #### 5 7021-8 ####[facility] LABCLIA [id number] [place] [address] [place] Eosinophils (Bld) [#/Vol] 0.27 10*3/uL Normal <0.46 [facility] Comment on above: Order Comment: Speci men Type: BLOOD SPECIMENOrdering Facility: [facility] Address: [address] [place] [address] Performed By: #### 5 7021-8 ####[facility] LABCLIA [id number] [place] [address] [place] Eosinophils/100 WBC (Bld) 4.0 % Normal [facility] Comment on above: Order Comment: Speci men Type: BLOOD SPECIMENOrdering Facility: [facility] Address: [address] [place] [address] Performed By: #### 5 7021-8 ####[facility] LABCLIA [id number] [place] [address] [place] Erythrocyte distribution width (RBC) [Ratio] 13.7 % Normal 11.5-15.0 [facility] Comment on above: Order Comment: Speci men Type: BLOOD SPECIMENOrdering Facility: [facility] Address: [address] [place] [address] Performed By: #### 5 7021-8 ####[facility] LABCLIA [id number] [place] [address] [place] Hematocrit (Bld) [Volume fraction] 36.1 % Normal 36.0-46.0 [facility] Comment on above: Order Comment: Speci men Type: BLOOD SPECIMENOrdering Facility: [facility] Address: [address] [place] [address] Performed By: #### 5 7021-8 ####[facility] LABCLIA [id number] [place] [address] [place] Hemoglobin (Bld) [Mass/Vol] 11.3 g/dL Low 11.5-15.5 [facility] Comment on above: Order Comment: Speci men Type: BLOOD SPECIMENOrdering Facility: [facility] Address: [address] [place] [address] Performed By: #### 5 7021-8 ####[facility] LABCLIA [id number] [place] [address] [place] Immature granulocytes (Bld) [#/Vol] 10*3/uL Normal <0.10 [facility] Comment on above: Order Comment: Speci men Type: BLOOD SPECIMENOrdering Facility: [facility] Address: [address] [place] [address] Performed By: #### 5 7021-8 ####[facility] LABCLIA [id number] [place] [address] [place] Immature granulocytes/100 WBC (Bld) 0.3 % Normal [facility] Comment on above: Order Comment: Speci men Type: BLOOD SPECIMENOrdering Facility: [facility] Address: [address] [place] [address] Performed By: #### 5 7021-8 ####[facility] LABCLIA [id number] [place] [address] [place] Lymphocytes (Bld) [#/Vol] 2.25 10*3/uL Normal 1.00-4.00 [facility] Comment on above: Order Comment: Speci men Type: BLOOD SPECIMENOrdering Facility: [facility] Address: [address] [place] [address] Performed By: #### 5 7021-8 ####[facility] LABCLIA [id number] [place] [address] [place] Lymphocytes/100 WBC (Bld) 33.3 % Normal [facility] Comment on above: Order Comment: Speci men Type: BLOOD SPECIMENOrdering Facility: [facility] Address: [address] [place] [address] Performed By: #### 5 7021-8 ####[facility] LABCLIA [id number] [place] [id number] [place] MCH (RBC) [Entitic mass] 28.7 pg Normal 26.0-34.0 [facility] Comment on above: Order Comment: Speci men Type: BLOOD SPECIMENOrdering Facility: [facility] Address: [address] [place] [address] Performed By: #### 5 7021-8 ####[facility] LABCLIA [id number] [place] [address] [place] MCHC (RBC) [Mass/Vol] 31.3 g/dL Normal 30.5-36.0 [facility] Comment on above: Order Comment: Speci men Type: BLOOD SPECIMENOrdering Facility: [facility] Address: [address] [place] [address] Performed By: #### 5 7021-8 ####[facility] LABCLIA [id number] [place] [address] [place] MCV (RBC) [Entitic vol] 91.6 fL Normal 80.0-100.0 [facility] Comment on above: Order Comment: Speci men Type: BLOOD SPECIMENOrdering Facility: [facility] Address: [address] [place] [address] Performed By: #### 5 7021-8 ####[facility] LABIA [id number] [place] [address] [place] Monocytes (Bld) [#/Vol] 0.57 10*3/uL Normal <0.87 [facility] Comment on above: Order Comment: Speci men Type: BLOOD SPECIMENOrdering Facility: [facility] Address: [address] [place] [address] Performed By: #### 5 7021-8 ####[facility] LABCLIA [id number] [place] [address] [place] Monocytes/100 WBC (Bld) 8.4 % Normal C [facility] Comment on above: Order Comment: Speci men Type: BLOOD SPECIMENOrdering Facility: [facility] Address: [address] [place] [address] Performed By: #### 5 7021-8 ####[facility] LABCLIA [id number] [place] [address] [place] Neutrophils (Bld) [#/Vol] 3.60 10*3/uL Normal 1.45-7.50 [facility] Comment on above: Order Comment: Speci men Type: BLOOD SPECIMENOrdering Facility: [facility] Address: [address] [place] [address] Performed By: #### 5 7021-8 ####[facility] LABCLIA [id number] [place] [address] [place] Neutrophils/100 WBC (Bld) 53.3 % Normal [facility] Comment on above: Order Comment: Speci men Type: BLOOD SPECIMENOrdering Facility: [facility] Address: [address] [place] [address] Performed By: #### 5 7021-8 ####[facility] LABCLIA [id number] [place] [address] [place] Nucleated RBC (Bld) [#/Vol] 10*3/uL Normal <0.01 [facility] Comment on above: Order Comment: Speci men Type: BLOOD SPECIMENOrdering Facility: [facility] Address: [address] [place] [address] Performed By: #### 5 7021-8 ####[facility] LABCLIA [id number] [place] [address] [place] Nucleated RBC/100 WBC (Bld) [Ratio] 0.0 /100 WBC Normal [facility] Comment on above: Order Comment: Speci men Type: BLOOD SPECIMENOrdering Facility: [facility] Address: [address] [place] [address] Performed By: #### 5 7021-8 ####[facility] LABCLIA [id number] [place] [address] [place] Platelet mean volume (Bld) [Entitic vol] 11.6 fL Normal 9.0-12.7 [facility] Comment on above: Order Comment: Speci men Type: BLOOD SPECIMENOrdering Facility: [facility] Address: [address] [place] [address] Performed By: #### 5 7021-8 ####[facility] LABIA [id number] [place] [address] [place] Platelets (Bld) [#/Vol] 216 10*3/uL Normal 150-400 [facility] Comment on above: Order Comment: Speci men Type: BLOOD SPECIMENOrdering Facility: [facility] Address: [address] [place] [address] Performed By: #### 5 7021-8 ####[facility] LABIA [id number] [place] [address] [place] RBC (Bld) [#/Vol] 3.94 10*6/uL Normal 3.90-5.20 [facility] Comment on above: Order Comment: Speci men Type: BLOOD SPECIMENOrdering Facility: [facility] Address: [address] [place] [address] Performed By: #### 5 7021-8 ####[facility] LABIA [id number] [place] [address] [place] WBC (Bld) [#/Vol] 6.76 10*3/uL Normal 3.70-11.00 [facility] Comment on above: Order Comment: Speci men Type: BLOOD SPECIMENOrdering Facility: [facility] Address: [address] [place] [address] Performed By: #### 5 7021-8 ####[facility] LABIA [id number] [place] [address] [place] Comprehensive metabolic 2000 panelon 01-05-2025 Albumin [Mass/Vol] 4.5 g/dL Normal 3.9-4.9 [facility] Comment on above: Order Comment: Speci men Type: BLOOD SPECIMENOrdering Facility: [facility] Address: [address] [place] [address] Performed By: #### 1 9123-9, 48141-5, 74498-4, LIPNF ####[facility] LABCLIA [id number] [place] [address] [place] ALP [Catalytic activity/Vol] 67 U/L Normal 34-123 [facility] Comment on above: Order Comment: Speci men Type: BLOOD SPECIMENOrdering Facility: [facility] Address: [address] [place] [address] Performed By: #### 1 9123-9, 78928-7, 27572-8, LIPNF ####[facility] LABCLIA [id number] [place] [address] [place] ALT [Catalytic activity/Vol] 20 U/L Normal 7-38 [facility] Comment on above: Order Comment: Speci men Type: BLOOD SPECIMENOrdering Facility: [facility] Address: [address] [place] [address] Performed By: #### 1 9123-9, 20582-4, 80498-0, LIPNF ####[facility] LABCLIA [id number] [place] [address] [place] Anion gap [Moles/Vol] 11 mmol/L Normal 8-15 [facility] Comment on above: Order Comment: Speci men Type: BLOOD SPECIMENOrdering Facility: [facility] Address: [address] [place] [address] Performed By: #### 1 9123-9, 99772-2, 34361-4, LIPNF ####[facility] LABCLIA [id number] [place] [address] [place] AST [Catalytic activity/Vol] 19 U/L Normal 13-35 [facility] Comment on above: Order Comment: Speci men Type: BLOOD SPECIMENOrdering Facility: [facility] Address: [address] [place] [address] Performed By: #### 1 9123-9, 33312-4, 11592-5, LIPNF ####[facility] LABCLIA [id number] [place] [address] [place] Bilirubin [Mass/Vol] 0.3 mg/dL Normal 0.2-1.3 [facility] Comment on above: Order Comment: Speci men Type: BLOOD SPECIMENOrdering Facility: [facility] Address: [address] [place] [address] Performed By: #### 1 9123-9, 85134-8, 37732-9, LIPNF ####[facility] LABCLIA [id number] [place] [address] [place] Calcium [Mass/Vol] 10.0 mg/dL Normal 8.5-10.2 [facility] Comment on above: Order Comment: Speci men Type: BLOOD SPECIMENOrdering Facility: [facility] Address: [address] [place] [address] Performed By: #### 1 9123-9, 85730-1, 77199-7, LIPNF ####[facility] LABCLIA [id number] [place] [address] [place] Chloride [Moles/Vol] 102 mmol/L Normal 98-107 [facility] Comment on above: Order Comment: Speci men Type: BLOOD SPECIMENOrdering Facility: [facility] Address: [address] [place] [address] Performed By: #### 1 9123-9, 48870-6, 56308-7, LIPNF ####[facility] LABCLIA [id number] [place] [address] [place] CO2 [Moles/Vol] 26 mmol/L Normal 22-30 [facility] Comment on above: Order Comment: Speci men Type: BLOOD SPECIMENOrdering Facility: [facility] Address: [address] [place] [address] Performed By: #### 1 9123-9, 37545-9, 47025-0, LIPNF ####[facility] LABCLIA [id number] [place] [address] [place] Creatinine [Mass/Vol] 1.09 mg/dL High 0.58-0.96 [facility] Comment on above: Order Comment: Speci men Type: BLOOD SPECIMENOrdering Facility: [facility] Address: [address] [place] [address] Performed By: #### 1 9123-9, 29778-5, 76515-3, LIPNF ####[facility] LABCLIA [id number] [place] [address] [place] Creatinine and Glomerular filtration rate.predicted panel (S/P/Bld) 54 mL/min/1.73m??? Low >=60 [facility] Comment on above: Order Comment: Speci men Type: BLOOD SPECIMENOrdering Facility: [facility] Address: [address] [place] [address] Result Comment: Monet mated Glomerular Filtration Rate [...] accurately reflect actual GFR. Performed By: #### 1 9123-9, 68450-8, 39239-6, LIPNF ####[facility] LABCLIA [id number] [place] [id number] [place] Glucose [Mass/Vol] 82 mg/dL Normal 74-99 [facility] Comment on above: Order Comment: Speci men Type: BLOOD SPECIMENOrdering Facility: [facility] Address: [address] [place] [address] Result Comment: The [place] [employer] (ADA) provides guidance for cutoff [...] Standards of Medical Care in Diabetes 2016, [place] [employer]. Diabetes Care. 2016.39(Suppl 1). Performed By: #### 1 9123-9, 97162-4, 42827-3, LIPNF ####[facility] LABCLIA [id number] [place] [address] [place] Potassium [Moles/Vol] 5.0 mmol/L Normal 3.7-5.1 [facility] Comment on above: Order Comment: Speci men Type: BLOOD SPECIMENOrdering Facility: [facility] Address: [address] [place] [address] Performed By: #### 1 9123-9, 20822-0, 29712-9, LIPNF ####[facility] LABCLIA [id number] [place] [id number] [place] Protein [Mass/Vol] 6.9 g/dL Normal 6.3-8.0 [facility] Comment on above: Order Comment: Speci men Type: BLOOD SPECIMENOrdering Facility: [facility] Address: [address] [place] [id number] Performed By: #### 1 9123-9, 50976-8, 34125-5, LIPNF ####[facility] LABCLIA [id number] [place] [id number] [place] Sodium [Moles/Vol] 139 mmol/L Normal 136-144 [facility] Comment on above: Order Comment: Paigei men Type: BLOOD SPECIMENOrdering Facility: [facility] Address: [address] [place] [address] Performed By: #### 1 9123-9, 26713-8, 06758-9, LIPNF ####[facility] LABCLIA [id number] [place] [id number] [place] Urea nitrogen [Mass/Vol] 21 mg/dL Normal 7-21 [facility] Comment on above: Order Comment: Paigei men Type: BLOOD SPECIMENOrdering Facility: [facility] Address: [address] [place] [address] Performed By: #### 1 9123-9, 40975-1, 34826-2, LIPNF ####[facility] LABIA [id number] [place] [address] [place] HbA1c (Bld)on 01-05-2025 Average glucose Estimated from glycated hemoglobin (Bld) [Mass/Vol] 108 mg/dL Normal [facility] Comment on above: Order Comment: [facility] Type: BLOOD SPECIMENOrdering Facility: [facility] Address: [address] [place] [address] Result Comment: eAG: (Estimated average glucose) is a calculated value from HgbA1c and is advertising sales representative of the average blood glucose level in the last 2-3 month period. Performed By: #### 5 5454-3 ####[facility] [id number] [place] [address] [place] HbA1c (Bld) [Mass fraction] 5.4 % Normal 4.3-5.6 [facility] Comment on above: Order Comment: [facility] Type: BLOOD SPECIMENOrdering Facility: [facility] Address: [address] [place] [address] Result Comment: Amer ican Diabetes Association guidelines indicate that patients with HgbA1c in the range 5.7-6.4% are at increased risk for development of diabetes, and intervention by lifestyle modification may be beneficial. HgbA1c greater or equal to 6.5% is considered diagnostic of diabetes. Performed By: #### 5 5454-3 ####[facility] LABIA [id number] [place] [id number] [place] Iron and Iron binding capaci ty panelon 01-05-2025 Iron [Mass/Vol] 61 ug/dL Normal 41-186 [facility] Comment on above: Order Comment: Speci men Type: BLOOD SPECIMENOrdering Facility: [facility] Address: [address] [place] [address] Performed By: #### 1 9123-9, 73686-3, 16390-7, LIPNF ####[facility] LABIA [id number] [address] STATES OF [facility] Iron binding capacity [Mass/Vol] 291 ug/dL Normal 232-386 [facility] Comment on above: Order Comment: Speci men Type: BLOOD SPECIMENOrdering Facility: [facility] Address: [address] [place] [address] Performed By: #### 1 9123-9, 17681-6, 08876-6, LIPNF ####[facility] [id number] [place] [address] [place] [facility] Iron/TIBC [Molar ratio] 21.0 % Normal 15.0-57.0 [facility] Comment on above: Order Comment: Speci men Type: BLOOD SPECIMENOrdering Facility: [facility] Address: [address] [place] [address] Performed By: #### 1 9123-9, 32356-3, 28596-5, LIPNF ####[facility]IA [id number] [place] [address] [place] LIPID PANEL, NONFASTINGon Cholesterol [Mass/Vol] 162 mg/dL Normal <200 [facility] Comment on above: Order Comment: Speci men Type: BLOOD SPECIMENOrdering Facility: [facility] Address: [address] [place] [address] Result Comment: <200 mg/dL, Desirable 200-239 mg/dL, Borderline high >239 mg/dL, High Performed By: #### 1 9123-9, 22144-4, 32578-7, LIPNF ####[facility] LABCLIA [id number] [place] [address] [place] HDL CHOLESTEROL, NF 68 mg/dL Normal >39 [facility] Comment on above: Order Comment: Speci men Type: BLOOD SPECIMENOrdering Facility: [facility] Address: [address] [place] [address] Result Comment: 40-5 9 mg/dL, Acceptable >59 mg/dL, High: Negative risk factor for coronary heart disease <40 mg/dL, Low: Positive risk factor for coronary heart disease Performed By: #### 1 9123-9, 56755-2, 87979-9, LIPNF ####[facility] LABCLIA [id number] [place] [address] [place] LDL CHOLESTEROL, NF 79 mg/dL Normal <100 [facility] Comment on above: Order Comment: Speci men Type: BLOOD SPECIMENOrdering Facility: [facility] Address: [address] [place] [address] Result Comment: <100 mg/dL, Optimal 100-129 mg/dL, Near optimal/above optimal 130-159 mg/dL, Borderline high 160-189 mg/dL, High >189 mg/dL, Very high Secondary prevention optimal LDL Cholesterol levels are recommended to be < 70 mg/dL Performed By: #### 1 9123-9, 60371-5, 64122-7, LIPNF ####[facility] LABCLIA [id number] [place] [address] [place] LDL/HDL RATIO, NF 1.16 mg/dL Normal <2.54 [facility] Comment on above: Order Comment: Speci men Type: BLOOD SPECIMENOrdering Facility: [facility] Address: [address] [place] [address] Result Comment: Refe rence: 1. National Cholesterol Education Program ATP III Guideline At-A-Glance Quick Desk Reference: National Heart, Lung, and Blood [place]. National Institutes of Health. 2001: NIH Publication No. 01-3305. 2. An International Atherosclerosis Society position paper: global recommendations for the management of dyslipidemia: executive summary, Atherosclerosis. 2014: 232(2):410-413. Performed By: #### 1 9123-9, 21123-7, 15662-4, LIPNF ####[facility] LABCLIA [id number] [place] [address] [place] NON HDL CHOL, NF 94 mg/dL Normal <130 [facility] Comment on above: Order Comment: Speci men Type: BLOOD SPECIMENOrdering Facility: [facility] Address: [address] [place] [address] Result Comment: <130 mg/dL, Optimal 130-159 mg/dL, Near optimal/above optimal 160-189 mg/dL, Borderline high 190-219 mg/dL, High >219 mg/dL, Very high Secondary prevention optimal non HDL Cholesterol levels are recommended to be <100 mg/dL Performed By: #### 1 9123-9, 85654-7, 10047-3, LIPNF ####[facility] LABCLIA [id number] [place] [address] [place] T CHOL/HDL RATIO NF 2.38 mg/dL Normal <5.10 [facility] Comment on above: Order Comment: Speci men Type: BLOOD SPECIMENOrdering Facility: [facility] Address: [address] [place] [address] Performed By: #### 1 9123-9, 12557-8, 56175-4, LIPNF ####[facility] LABCLIA [id number] [place] [address] [place] TRIGLYCERIDES, NF 74 mg/dL Normal <150 [facility] Comment on above: Order Comment: Speci men Type: BLOOD SPECIMENOrdering Facility: [facility] Address: [address] [place] [address] Result Comment: <150 mg/dL, Normal 150-199 mg/dL, Borderline high 200-499 mg/dL, High >499 mg/dL, Very high Performed By: #### 1 9123-9, 29481-9, 07546-8, LIPNF ####[facility] LABCLIA [id number] [place] [address] [place] VLDL CHOLESTEROL, NF 15 mg/dL Normal <30 [facility] Comment on above: Order Comment: Speci men Type: BLOOD SPECIMENOrdering Facility: [facility] Address: [address] [place] [address] Performed By: #### 1 9123-9, 43622-7, 11831-2, LIPNF ####[facility] LABCLIA [id number] [place] [address] [place] Magnesium SerPl-mCncon 01-05 Magnesium [Mass/Vol] 2.2 mg/dL Normal 1.7-2.3 [facility] Comment on above: Order Comment: Speci men Type: BLOOD SPECIMENOrdering Facility: [facility] Address: [address] [place] [address] Performed By: #### 1 9123-9, 95361-6, 20094-5, LIPNF ####[facility] LABCLIA [id number] [place] [address] [place] Urinalysis complete panel (U )on 01-05-2025 BACTERIA UL >9821 High Negative [facility] Comment on above: Order Comment: Speci men Type: URINE SPECIMENOrdering Facility: [facility] Address: [address] [place] [address] Performed By: #### 2 4356-8 ####[facility] LABCLIA [id number] [place] [address] [place] Bilirubin Ql (U) Negative Normal Negative [facility] Comment on above: Order Comment: Speci men Type: URINE SPECIMENOrdering Facility: [facility] Address: [address] [place] [address] Performed By: #### 2 4356-8 ####[facility] LABCLIA [id number] [place] [address] [place] Clarity (Unsp spec) Clear Normal Clear [facility] Comment on above: Order Comment: Speci men Type: URINE SPECIMENOrdering Facility: [facility] Address: [address] [place] [address] Performed By: #### 2 4356-8 ####[facility] LABCLIA [id number] [place] [address] [place] Color (U) Yellow Normal Yellow [facility] Comment on above: Order Comment: Speci men Type: URINE SPECIMENOrdering Facility: [facility] Address: [address] [place] [address] Performed By: #### 2 4356-8 ####[facility] LABCLIA [id number] [place] [address] [place] Epithelial cells LM.HPF (Urine sed) [#/Area] None Seen Normal [facility] Comment on above: Order Comment: Speci men Type: URINE SPECIMENOrdering Facility: [facility] Address: [address] [place] [address] Performed By: #### 2 4356-8 ####[facility] LABCLIA [id number] [place] [address] [place] Glucose Test strip (U) [Mass/Vol] Negative Normal Negative [facility] Comment on above: Order Comment: Speci men Type: URINE SPECIMENOrdering Facility: [facility] Address: [address] [place] [address] Performed By: #### 2 4356-8 ####[facility] LABCLIA [id number] [place] [address] [place] Hemoglobin Ql (U) Negative Normal Negative [facility] Comment on above: Order Comment: Speci men Type: URINE SPECIMENOrdering Facility: [facility] Address: [address] [place] [address] Performed By: #### 2 4356-8 ####[facility] LABCLIA [id number] [place] [address] [place] Hyaline casts (Urine sed) [#/Area] 0 /[LPF] Normal 0 /LPF [facility] Comment on above: Order Comment: Speci men Type: URINE SPECIMENOrdering Facility: [facility] Address: [address] [place] [address] Performed By: #### 2 4356-8 ####[facility] LABCLIA [id number] [place] [address] [place] Ketones Ql (U) Negative Normal Negative [facility] Comment on above: Order Comment: Speci men Type: URINE SPECIMENOrdering Facility: [facility] Address: [address] [place] [address] Performed By: #### 2 4356-8 ####[facility] LABCLIA [id number] [place] [address] [place] Leukocyte esterase Test strip Ql (U) 1+ Abnormal Negative [facility] Comment on above: Order Comment: Speci men Type: URINE SPECIMENOrdering Facility: [facility] Address: [address] [place] [address] Performed By: #### 2 4356-8 ####[facility] LABCLIA [id number] [place] [address] [place] Nitrite Ql (U) Positive Abnormal Negative [facility] Comment on above: Order Comment: Speci men Type: URINE SPECIMENOrdering Facility: [facility] Address: [address] [place] [address] Performed By: #### 2 4356-8 ####[facility] LABCLIA [id number] [place] [address] [place] pH (U) 6.5 [pH] Normal <8.5 [facility] Comment on above: Order Comment: Speci men Type: URINE SPECIMENOrdering Facility: [facility] Address: [address] [place] [address] Performed By: #### 2 4356-8 ####[facility] LABCLIA [id number] [place] [address] [place] Protein (U) [Mass/Vol] Negative Normal Negative Cl [facility] Comment on above: Order Comment: Speci men Type: URINE SPECIMENOrdering Facility: [facility] Address: [address] [place] [address] Performed By: #### 2 4356-8 ####[facility] LABIA [id number] [place] [address] [place] RBC LM.HPF (Urine sed) [#/Area] 0-2 /HPF Normal 0-2 /HPF [facility] Comment on above: Order Comment: Speci men Type: URINE SPECIMENOrdering Facility: [facility] Address: [address] [place] [address] Performed By: #### 2 4356-8 ####[facility] LABIA [id number] [place] [address] [place] Specific gravity (U) [Rel density] 1.017 Normal 1.005-1.030 [facility] Comment on above: Order Comment: Speci men Type: URINE SPECIMENOrdering Facility: [facility] Address: [address] [place] [address] Performed By: #### 2 4356-8 ####[facility] LABIA [id number] [place] [address] [place] Urobilinogen Ql (U) 0.2 EU/dL Normal 0.2-1.0 EU/dL Cl [facility] Comment on above: Order Comment: Speci men Type: URINE SPECIMENOrdering Facility: [facility] Address: [address] [place] [address] Performed By: #### 2 4356-8 ####[facility] LABIA [id number] [place] [address] [place] WBC LM.HPF (Urine sed) [#/Area] /[HPF] Abnormal 0-5 /HPF [facility] Comment on above: Order Comment: Speci men Type: URINE SPECIMENOrdering Facility: [facility] Address: [address] [place] [address] Performed By: #### 2 4356-8 ####[facility] LABIA [id number] [place] [address] [place] Vit [facility]2 025 Cobalamin (Vitamin B12) [Mass/Vol] 1135 pg/mL Normal 232-1245 [facility] Comment on above: Order Comment: Speci men Type: BLOOD SPECIMENOrdering Facility: [facility] Address: [address] [place] [address] Performed By: #### 2 132-9 ####[facility] [id number] [place] [address] [place] Modified Barium Swallow Stud yon 12-11-2024 Modified Barium Swallow Study [facility] Speech Pathology [address] [place] [address] Modified Barium Swallow Study MR#: [id number] Acct: [id number] Name: PRASHANT SHEFFIELD Rep #: [id number] : 1950 74 From: Kathy Leung M.A. [facility]-INVESTIGATOR Modified Barium Swallow Patient Information Study Date: 12/11/24 Study Time: 12:30 Direct Billable Minutes: 115 Total Minutes procedure reportin Diagnosis: Dysphagia R13.10 Referring Physician: Gold Colon Reason for Referral: Re-assess swallow function and aspiration risk to determine LRD textures and strategies to decrease risk for aspiration. This INVESTIGATOR spoke w/ pt's OP INVESTIGATOR, Fallon Martinez, prior to MBSS. Will consider [...] Result: 5= enters airways/contacts vocal folds/not ejected [place] Thick Liquid via small single sip: cup: [...] Result: 5= enters airways/contacts vocal folds/not ejected [place] Thick Liquid via single sip: straw: Result: 1= does not enter airway [place] Thick Liquid via single sip: straw Trial [...] No bolu (more content not included)... Normal [facility] SP/HP.SP.Sherri 11-24-2024 SP/HP.SP.EV [facility] Speech Pathology [facility] [address] [place] [address]. [address] [place] [address] / REHABILITATION SERVICES INITIAL EVALUATION MR#: [id number] Acct: [id number] Name: PRASHANT SHEFFIELD Rep #: [id number] : 1950 74 From: Malgorzata Martinez M.S., [facility]-INVESTIGATOR Referring Dr.: Gold Colon Status: REG RCR Insurance: MEDICARE PART A B ANTHEM Visit History Visit Info Date of Eval: 11/23/24 Visit: 1 Roller Inspector: JULIANO Naranjo Attending Doctor: ALINA Referring Doctor: ALINA Reason for Referral: DYSPHAGIA. RX HERE Previous speech therapy: Yes Results: Evaluation on 01/16/2022 with MBSS on 01/30/22, along with tx for dysphagia and voice Other Relevant Medical History/Diagnoses/Olmos rgery: PRASHANT SHEFFIELD is a 74 year old female who presents to [facility] PMH history including Parkinson's (diagnosed 5-6 years ago), Dyslipidemia, GERD without esophagitis, Hypertension, Oropharyngeal Dysphagia (SEE H P for full PMH). She has a hx of falls, which resulted in her hitting the back of her head without loss of consciousness. [facility] recommending MBS study to objectively [...] chair. At her last neurology appt, Dr. Colon recommended starting speech therapy again. The patient's sister, Moo, was present for evaluation. Medications related to this diagnosis: Aspirin, Benztropine, B12, Celexa, Folic Acid, Melatonin, Omeprazole, Pramipexole, Rasagiline, Simvistatin, Slow FE Iron, Valsartan, Vitamin C, Vitamin D3 Smoking Status: Never smoker Diagnosis Diagnosis: Parkinson's disease, Oropharyngeal Dysphagia, Dysphonia Pain Is pain an issue with your current prescribed condition?: No Personal Preferred language: [place] Patient Allergies Allergies Allergies: Allergies codeine Adverse [...] laryngeal elevation (more content not included)... Normal [facility] [id number] 09-14-2024 [id number] HNO ID: [id number] Author: MEÑO PHILLIP PT Service: ? Author Type: Physical Therapist Type: [id number] Filed: 09/14/2024 14:15 Note Text: [facility] Physical Therapy Plan of Care Certification Patient Name: Prashant Sheffield : 1950 [facility] #: [id number] Date: 09/14/2024 To: Edna Umanzor APRN.* From [...] increase T-score by a minimum 5 points. [place] in home exercise program. Patient will decrease [...] Planned: 8 Planned Treatment Interventions: Therapeutic exercise (06716), Neuromuscular re-education (64565), Manual therapy (08080), Therapeutic activities (99618), Self-assisted management (98643), Gait Training (04265), Body Mechanics Training, Patient/Family/Careg iver Education PLAN [...] reviewed the treatment plan for Prashant Sheffield, [facility]# [id number] for the period of 09/14/24 -- 10/19/24, established on 09/14/2024. Signature certifies the need for therapy services. Normal [facility] CNTHERAPYon 09-14-2024 CNTHERAPY OT/PT/Speech Visit (PTWS) PRASHANT SHEFFIELD ([id number]) 1950 F Date Time Provider Department 09/14/24 12:15 PM MEÑO PHILLIP PTWS Date Time Provider Department [place] 09/14/2024 12:15 PM [id number], COLIN PTWS Lukas Shabazz Reason for Visit: [...] two times a day. [facility] Mel[facility] 5 mg cap Take [...] of 30mg daily, getting from Neurology at [facility] - citalopram (CELEXA) 20 mg tablet Take 1 tablet by mouth daily at bedtime. Take with 10mg dose for total of 30mg daily. Per neurology at [facility] - estradiol (ESTRACE) 0.01 % (0.1 mg/gram) [...] Meds Comments as of 02/27/2019: Cranberry tablets [employer] Executive: Therapy (PT/OT/Speech/Resp) ID: [id number] 09/14/2024 1:00 PM Author: MEÑO PHILLIP Signed by MEÑO PHILLIP PT on 09/14/2024 at 1:00 PM Document text: Program_ID:[id number] Access Code: [email or web address] URL: [email or web address] Date: 09-14-2024 Prepared By: Meño Phillip Program [...] 2 sets - 10 reps -------- Normal [facility] THERAPY NTon 09-14-2024 THERAPY NT HNO ID: [id number] Author: MEÑO PHILLIP PT Service: ? Author Type: Physical Therapist Type: Therapy (PT/OT/Speech/Resp) Filed: 09/14/2024 13:00 Note Text: Program_ID:[id number] Access Code: [email or web address] URL: [email or web address] Date: 09-14-2024 Prepared By: Meño Phillip Program [...] - 2 sets - 10 reps Normal [facility] MRI BRAIN W/ + W/O CONTRASTo n [...] 02/18/2024 9:36:23 AM Ordering Provider: ELIO SERRATO [facility] ([place]) CBC W Auto Differential pane l (Bld)on 09-25-2023 Basophils (Bld) [#/Vol] 0.05 10*3/uL <0.11 k/uL [facility] Basophils/100 WBC (Bld) 0.8 % [facility] Differential cell count method Nom (Bld) Auto [facility] Eosinophils (Bld) [#/Vol] 0.13 10*3/uL <0.46 k/uL [facility] Eosinophils/100 WBC (Bld) 2.0 % [facility] Erythrocyte distribution width (RBC) [Ratio] 14.6 % 11.5 - 15.0 % [facility] Hematocrit (Bld) [Volume fraction] 31.5 % Low 36.0 - 46.0 % [facility] Hemoglobin (Bld) [Mass/Vol] 9.7 g/dL Low 11.5 - 15.5 g/dL [facility] Immature granulocytes (Bld) [#/Vol] <0.10 k/uL [facility] Immature granulocytes/100 WBC (Bld) 0.2 % [facility] Lymphocytes (Bld) [#/Vol] 1.71 10*3/uL 1.00 - 4.00 k/uL [facility] Lymphocytes/100 WBC (Bld) 26.8 % [facility] MCH (RBC) [Entitic mass] 29.0 pg 26. 0 - 34.0 pg [facility] MCHC (RBC) [Mass/Vol] 30.8 g/dL 30.5 - 36.0 g/dL [facility] MCV (RBC) [Entitic vol] 94.0 fL 80.0 - 100.0 fL [facility] Monocytes (Bld) [#/Vol] 0.49 10*3/uL <0.87 k/uL [facility] Monocytes/100 WBC (Bld) 7.7 % [facility] Neutrophils (Bld) [#/Vol] 4.00 10*3/uL 1.45 - 7.50 k/uL [facility] Neutrophils/100 WBC (Bld) 62.5 % [facility] Nucleated RBC (Bld) [#/Vol] <0.01 k/uL [facility] Nucleated RBC/100 WBC (Bld) [Ratio] 0.0 /100 WBC [facility] Platelet mean volume (Bld) [Entitic vol] 11.2 fL 9.0 - 12.7 fL [facility] Platelets (Bld) [#/Vol] 297 10*3/uL 150 - 400 k/uL [facility] RBC (Bld) [#/Vol] 3.35 10*6/uL Low 3.90 - 5.2 0 m/uL [facility] WBC (Bld) [#/Vol] 6.39 10*3/uL 3.70 - 11. 00 k/uL [facility] Absolute lymphocyte countOrd ered By: Ishaan Olson on 08-06-2023 Lymphocytes Auto (Unsp spec) [#/Vol] 1.33 10*3/uL 0.83-4.51 [facility] Basophil percentageOrdered B y: Ishaan Olson on 08-06-2023 Basophils/100 WBC (Bld) 0.3 % 0-1 [facility] Chloride [Moles/Vol] 112 mmol/L 98-107 [facility] Eosinophils/100 WBC (Bld) 3.2 % 0-5 [facility] Glucose [Mass/Vol] 103 mg/dL 74-106 [facility] Comment on above: Fasting Glucose resu lt from 100 to 125 mg/dL suggests IMPAIRED HOMEOSTASIS per A.D.A. criteria. Neutrophils (Bld) [#/Vol] 4.5 10*3/uL 2.0-7.7 [facility] Neutrophils/100 WBC (Bld) 66.5 % 47-70 [facility] Potassium [Moles/Vol] 3.5 mmol/L 3.5-5.1 [facility] Sodium [Moles/Vol] 140 mmol/L 136-145 [facility] WBC (Bld) [#/Vol] 6.8 10*3/uL 4.4-11.0 [facility] Blood erythrocytes count (nu mber/volume)Ordered By: Ishaan Olson on 08-06-2023 RBC (Bld) [#/Vol] 3.18 10*6/uL 4.2-5.4 [facility] Blood hemoglobin measurement (mass/volume)Ordered By: Ishaan Olson on 08-06-2023 Hemoglobin (Bld) [Mass/Vol] 9.1 g/dL 12.0-15.0 [facility] Blood lymphocytes/100 leukoc ytesOrdered By: Ishaan lOson on 08-06-2023 Lymphocytes/100 WBC (Bld) 19.4 % 19-41 [facility] Blood monocytes/100 leukocyt esOrdered By: Ishaan Olson on 08-06-2023 Monocytes/100 WBC (Bld) 10.2 % 0-10 [facility] Blood platelet mean volumeOr dered By: Ishaan Olson on 08-06-2023 Platelet mean volume (Bld) [Entitic vol] 10.1 fL 6.2-12.0 [facility] Determination of erythrocyte mean corpuscular volume (MCV)Ordered By: Ishaan Olson on 08-06-2023 MCV (RBC) [Entitic vol] 88.4 fL 81-99 [facility] Hematocrit Auto (Bld) [Volum e fraction]Ordered By: Ishaan Olson on 08-06-2023 Hematocrit (Bld) [Volume fraction] 28.1 % 37-47 [facility] [facility] - Chemistry and C hemistry - challengeOrdered By: Ishaan Olson on 08-06-2023 CO2 [Moles/Vol] 23.0 mmol/L 21.0-32.0 [facility] Urea nitrogen/Creatinine [Mass ratio] 24.5 mg/mg 10-20 [facility] Laboratory - Hematology and Cell countsOrdered By: Ishaan Olson on 08-06-2023 Erythrocyte distribution width (RBC) [Entitic vol] 45.1 fL 35.1-43.9 [facility] Erythrocyte distribution width (RBC) [Ratio] 13.9 % 11.6-14.6 [facility] Immature granulocytes/100 WBC (Bld) 0.400 % 0.0-0.9 [facility] Comment on above: IG% - Immature Granu locytes (promyelocytes, myelocytes and metamyelocytes) > 1% indicates that a LEFT SHIFT is Present. MCH (RBC) [Entitic mass] 28.6 pg 27.0-32.0 [facility] Nucleated RBC/100 WBC (Bld) [Ratio] 0 % [facility]5 [facility] [Mass/Vol]Or dered By: Ishaan Olson on 08-06-2023 MCHC (RBC) [Mass/Vol] 32.4 g/dL 32-36 [facility] No Panel InformationOrdered By: Ishaan Olson on 08-06-2023 Estimated Creatinine Clearance Calc 40.22 ml/min [facility] Estimated GFR (MDRD) Amer 100 mL/min >60 [facility] Comment on above: GFR Calc Estimated GFR (MDRD) Non-Af Amer 82 mL/min >60 [facility] Comment on above: Non- GFR Calc Platelets bldOrdered By: Lee Olson on 08-06-2023 Platelets (Bld) [#/Vol] 279 10*3/uL 150-450 [facility] Serum or plasma calcium carlos urement (mass/volume)Ordered By: Ishaan Olson on 08-06-2023 Calcium [Mass/Vol] 8.0 mg/dL 8.5-10.1 [facility] Serum or plasma creatinine m easurement (mass/volume)Ordered By: Ishaan Olson on 08-06-2023 Creatinine [Mass/Vol] 0.74 mg/dL 0.55-1.02 [facility] Comment on above: The validity of the calculated GFR & GFRAA in patients over 70 years has not been determined. Clinical correlation is essential. Serum or plasma urea nitroge n measurement (mass/volume)Ordered By: Ishaan Olson on 08-06-2023 Urea nitrogen [Mass/Vol] 18 mg/dL 7-18 [facility] Thin prep Papanicolaou smear with manual screeningOrdered By: Ishaan Olson on 08-06-2023 Thin prep Papanicolaou smear with manual screening 5 5-15 [facility] Amorphous sediment detection in urine sediment by light microscopyOrdered By: Rain Bustos on 08-05-2023 Amorphous sediment LM Ql (Urine sed) 1+ URATE [facility] Basophil percentageOrdered B y: Rain Bustos on 08-05-2023 Basophil percentage 25-50 SEEN /hpf 0-5 [facility] Bilirubin Test strip Ql (U)O rdered By: Rain Bustos on 08-05-2023 Bilirubin Ql (U) 1 mg/dL Negative [facility] Comment on above: COLOR OF URINE MAY A FFECT DIPSTICK RESULTS. Ketones Test strip Ql (U)Ord ered By: Rain Bustos on 08-05-2023 Ketones Ql (U) 15 mg/dl Negative [facility] Mucus LM Ql (Urine sed)Order ed By: Rain Bustos on 08-05-2023 Mucus Ql (Urine sed) 0 SEEN /hpf [facility] Nitrite Test strip Ql (U)Ord ered By: Rain Bustos on 08-05-2023 Nitrite Ql (U) Positive Negative [facility] Protein Test strip Ql (U)Ord ered By: Rain Bustos on 08-05-2023 Protein Ql (U) 30 mg/dl Negative [facility] Squamous epithelial cells de tection in urine sediment by light microscopyOrdered By: Rain Bustos on 08-05-2023 Epithelial cells.squamous LM Ql (Urine sed) 0-5 SEEN /hpf 5-10 [facility] Urine blood detectionOrdered By: Rain Bustos on 08-05-2023 RBC Ql (U) 10 /ul Negative [facility] RBC Ql (U) 0-5 SEEN /hpf 0-5 [facility] Urine clarityOrdered By: Jessi Bustos on 08-05-2023 Clarity (U) Sl. Cloudy Clear [facility] Urine color determinationOrd ered By: Rain Bustos on 08-05-2023 Color (U) Yellow Yellow [facility] Urine glucose detectionOrder ed By: Rain Bustos on 08-05-2023 Glucose Ql (U) Normal mg/dl Normal [facility] Urine leukocyte esterase det ection by dipstickOrdered By: Rain Bustos on 08-05-2023 Leukocyte esterase Test strip Ql (U) 500 /ul Negative [facility] Urine pHOrdered By: Rain pearl on 08-05-2023 pH (U) 5.0 [pH] 5.0 - 8.0 [facility] Urine sediment bacteria coun t by microscopy (number/high power field)Ordered By: Rain Bustos on 08-05-2023 Bacteria LM.HPF (Urine sed) [#/Area] 3 /[HPF] None Seen [facility] Urine specific gravity measu rementOrdered By: Rain Bustos on 08-05-2023 Specific gravity (U) [Rel density] 1.030 1.002-1.030 [facility] Urobilinogen Auto test strip Ql (U)Ordered By: Rain Bustos on 08-05-2023 Urobilinogen Ql (U) 1 mg/dl Normal [facility] Review by pathologistOrdered By: Ishaan Olson on 08-04-2023 Pathologist review Collin (Unsp spec) [Interp] Reviewed [facility] Comment on above: Previous reported re sult: March ronan Edited by: JONG on 08/05/23:1342Normocytic anemia.Clinical correlation necessary.Emmanuel Gracia M.D. 08/05/23 AMENDED REPORT 08/05/23 1342 PATH REV previously reported as: March ronan Absolute lymphocyte countOrd ered By: Vladislav Crawford on 08-01-2023 Lymphocytes Auto (Unsp spec) [#/Vol] 0.61 10*3/uL 0.83-4.51 [facility] Basophil percentageOrdered B y: Vladislav Crawford on 08-01-2023 Basophils/100 WBC (Bld) 0.2 % 0-1 [facility] Bilirubin [Mass/Vol] 0.50 mg/dL 0.20-1.00 [facility] Comment on above: For patients on eltr ombopag therapy, use of Dimension [place] TBIL is not recommended. Chloride [Moles/Vol] 105 mmol/L 98-107 [facility] Eosinophils/100 WBC (Bld) 0.0 % 0-5 [facility] Glucose [Mass/Vol] 130 mg/dL 74-106 [facility] Comment on above: Fasting Glucose resu lt greater than or equal to 126 mg/dL suggests DIABETES MELLITUS per A.D.A. criteria. Neutrophils (Bld) [#/Vol] 11.1 10*3/uL 2.0-7.7 [facility] Neutrophils/100 WBC (Bld) 92.2 % 47-70 [facility] Potassium [Moles/Vol] 3.8 mmol/L 3.5-5.1 [facility] Protein [Mass/Vol] 7.5 g/dL 6.4-8.2 [facility] Sodium [Moles/Vol] 136 mmol/L 136-145 [facility] WBC (Bld) [#/Vol] 12.1 10*3/uL 4.4-11.0 [facility] Blood erythrocytes count (nu mber/volume)Ordered By: Vladislav Crawford on 08-01-2023 RBC (Bld) [#/Vol] 4.10 10*6/uL 4.2-5.4 [facility] Blood hemoglobin measurement (mass/volume)Ordered By: Vladislav Crawford on 08-01-2023 Hemoglobin (Bld) [Mass/Vol] 11.5 g/dL 12.0-15.0 [facility] Blood lymphocytes/100 leukoc ytesOrdered By: Vladislav Crawford on 08-01-2023 Lymphocytes/100 WBC (Bld) 5.1 % 19-41 [facility] Blood monocytes/100 leukocyt esOrdered By: Vladislav Crawford on 08-01-2023 Monocytes/100 WBC (Bld) 2.1 % 0-10 [facility] Blood platelet mean volumeOr dered By: Vladislav Crawford on 08-01-2023 Platelet mean volume (Bld) [Entitic vol] 11.4 fL 6.2-12.0 [facility] Determination of erythrocyte mean corpuscular volume (MCV)Ordered By: Vladislav Crawford on 08-01-2023 MCV (RBC) [Entitic vol] 88.8 fL 81-99 [facility] Hematocrit Auto (Bld) [Volum e fraction]Ordered By: Vladislav Crawford on 08-01-2023 Hematocrit (Bld) [Volume fraction] 36.4 % 37-47 [facility] INR in Blood by Coagulation assayOrdered By: Vladislav Crawford on 08-01-2023 INR Coag (Bld) [Relative time] 1.1 {INR} [facility] Laboratory - Chemistry and C hemistry - challengeOrdered By: Vladislav Crawford on 08-01-2023 ALP [Catalytic activity/Vol] 79 U/L 45-117 [facility] ALT [Catalytic activity/Vol] 25 U/L 13-56 [facility] CO2 [Moles/Vol] 25.0 mmol/L 21.0-32.0 [facility] Globulin (S) [Mass/Vol] 3.7 g/dL 2.2-4.2 [facility] Lipase [Catalytic activity/Vol] 23 U/L 13-75 [facility] Comment on above: Please note:LIPASE r evised reference range effective 23. New Lipase methodology. Expected to produce lower values than the previous assay method. NEW Reference Range: 13 - 75 U/L Urea nitrogen/Creatinine [Mass ratio] 16.7 mg/mg 10-20 [facility] Laboratory - CoagulationOrde red By: Vladislav Crawford on 08-01-2023 aPTT Coag (Bld) [Time] 25.8 s 24.1-36.2 [facility] PT Coag (PPP) [Time] 14.0 s 11.7-14.9 [facility] Laboratory - Hematology and Cell countsOrdered By: Vladislav Crawford on 08-01-2023 Erythrocyte distribution width (RBC) [Entitic vol] 45.0 fL 35.1-43.9 [facility] Erythrocyte distribution width (RBC) [Ratio] 13.8 % 11.6-14.6 [facility] Immature granulocytes/100 WBC (Bld) 0.400 % 0.0-0.9 [facility] Comment on above: IG% - Immature Granu locytes (promyelocytes, myelocytes and metamyelocytes) > 1% indicates that a LEFT SHIFT is Present. MCH (RBC) [Entitic mass] 28.0 pg 27.0-32.0 [facility] Nucleated RBC/100 WBC (Bld) [Ratio] 0 % 0-5 [facility] MCHC Auto (RBC) [Mass/Vol]Or dered By: Vladislav Crawford on 08-01-2023 MCHC (RBC) [Mass/Vol] 31.6 g/dL 32-36 [facility] No Panel InformationOrdered By: Vladislav Crawford on 08-01-2023 Estimated GFR (MDRD) Amer 60 mL/min >60 [facility] Comment on above: GFR Calc Estimated GFR (MDRD) Non-Af Amer 50 mL/min >60 [facility] Comment on above: Non- GFR Calc Platelets bldOrdered By: Eliseo Crawford on 08-01-2023 Platelets (Bld) [#/Vol] 261 10*3/uL 150-450 [facility] Serum or plasma albumin carlos urement (mass/volume)Ordered By: Vladislav Crawford on 08-01-2023 Albumin [Mass/Vol] 3.8 g/dL 3.2-5.0 [facility] Serum or plasma albumin/glob ulin mass ratioOrdered By: Vladislav Crawford on 08-01-2023 Albumin/Globulin [Mass ratio] 1.0 {ratio} 0.9-2.4 [facility] Serum or plasma calcium carlos urement (mass/volume)Ordered By: Vladislav Crawford on 08-01-2023 Calcium [Mass/Vol] 9.7 mg/dL 8.5-10.1 [facility] Serum or plasma creatinine m easurement (mass/volume)Ordered By: Vladislav Crawford on 08-01-2023 Creatinine [Mass/Vol] 1.14 mg/dL 0.55-1.02 [facility] Comment on above: The validity of the calculated GFR & GFRAA in patients over 70 years has not been determined. Clinical correlation is essential. Serum or plasma urea nitroge n measurement (mass/volume)Ordered By: Vladislav Crawford on 08-01-2023 Urea nitrogen [Mass/Vol] 19 mg/dL 7-18 [facility] Thin prep Papanicolaou smear with manual screeningOrdered By: Vladislav Crawford on 08-01-2023 Thin prep Papanicolaou smear with manual screening 14 U/L 15-37 [facility] Thin prep Papanicolaou smear with manual screening 6 5-15 [facility] Absolute lymphocyte countOrd ered By: Milton Iglesias on 07-28-2023 Lymphocytes Auto (Unsp spec) [#/Vol] 2.09 10*3/uL 0.83-4.51 [facility] Basophil percentageOrdered B y: Milton Iglesias on 07-28-2023 Basophils/100 WBC (Bld) 0.4 % 0-1 [facility] Chloride [Moles/Vol] 107 mmol/L 98-107 [facility] Eosinophils/100 WBC (Bld) 1.4 % 0-5 [facility] Glucose [Mass/Vol] 108 mg/dL 74-106 [facility] Comment on above: Fasting Glucose resu lt from 100 to 125 mg/dL suggests IMPAIRED HOMEOSTASIS per A.D.A. criteria. Neutrophils (Bld) [#/Vol] 5.0 10*3/uL 2.0-7.7 [facility] Neutrophils/100 WBC (Bld) 62.2 % 47-70 [facility] Potassium [Moles/Vol] 4.0 mmol/L 3.5-5.1 [facility] Sodium [Moles/Vol] 137 mmol/L 136-145 [facility] WBC (Bld) [#/Vol] 8.1 10*3/uL 4.4-11.0 [facility] Blood erythrocytes count (nu mber/volume)Ordered By: Milton Iglesias on 07-28-2023 RBC (Bld) [#/Vol] 3.79 10*6/uL 4.2-5.4 [facility] Blood hemoglobin measurement (mass/volume)Ordered By: Milton Iglesias on 07-28-2023 Hemoglobin (Bld) [Mass/Vol] 10.7 g/dL 12.0-15.0 [facility] Blood lymphocytes/100 leukoc ytesOrdered By: Milton Iglesias on 07-28-2023 Lymphocytes/100 WBC (Bld) 26.0 % 19-41 [facility] Blood monocytes/100 leukocyt esOrdered By: Milton Iglesias on 07-28-2023 Monocytes/100 WBC (Bld) 9.8 % 0-10 [facility] Blood platelet mean volumeOr dered By: Milton Iglesias on 07-28-2023 Platelet mean volume (Bld) [Entitic vol] 11.1 fL 6.2-12.0 [facility] Determination of erythrocyte mean corpuscular volume (MCV)Ordered By: Milton Iglesias on 07-28-2023 MCV (RBC) [Entitic vol] 89.7 fL 81-99 [facility] Hematocrit Auto (Bld) [Volum e fraction]Ordered By: Milton Iglesias on 07-28-2023 Hematocrit (Bld) [Volume fraction] 34.0 % 37-47 [facility] Laboratory - Chemistry and C hemistry - challengeOrdered By: Milton Iglesias on 07-28-2023 CO2 [Moles/Vol] 27.0 mmol/L 21.0-32.0 [facility] Urea nitrogen/Creatinine [Mass ratio] 20.2 mg/mg 10-20 [facility] Laboratory - Hematology and Cell countsOrdered By: Milton Iglesias on 07-28-2023 Erythrocyte distribution width (RBC) [Entitic vol] 45.0 fL 35.1-43.9 [facility] Erythrocyte distribution width (RBC) [Ratio] 13.7 % 11.6-14.6 [facility] Immature granulocytes/100 WBC (Bld) 0.200 % 0.0-0.9 [facility] Comment on above: IG% - Immature Granu locytes (promyelocytes, myelocytes and metamyelocytes) > 1% indicates that a LEFT SHIFT is Present. MCH (RBC) [Entitic mass] 28.2 pg 27.0-32.0 [facility] Nucleated RBC/100 WBC (Bld) [Ratio] 0 % 0-5 [facility] MCHC Auto (RBC) [Mass/Vol]Or dered By: Milton Iglesias on 07-28-2023 MCHC (RBC) [Mass/Vol] 31.5 g/dL 32-36 [facility] No Panel InformationOrdered By: Milton Iglesias on 07-28-2023 Estimated GFR (MDRD) Amer 57 mL/min >60 [facility] Comment on above: GFR Calc Estimated GFR (MDRD) Non-Af Amer 47 mL/min >60 [facility] Comment on above: Non- GFR Calc Platelets bldOrdered By: Nash Iglesias on 07-28-2023 Platelets (Bld) [#/Vol] 234 10*3/uL 150-450 [facility] Serum or plasma calcium carlos urement (mass/volume)Ordered By: Milton Iglesias on 07-28-2023 Calcium [Mass/Vol] 9.4 mg/dL 8.5-10.1 [facility] Serum or plasma creatinine m easurement (mass/volume)Ordered By: Milton Iglesias on 07-28-2023 Creatinine [Mass/Vol] 1.19 mg/dL 0.55-1.02 [facility] Comment on above: The validity of the calculated GFR & GFRAA in patients over 70 years has not been determined. Clinical correlation is essential. Serum or plasma urea nitroge n measurement (mass/volume)Ordered By: Milton Iglesias on 07-28-2023 Urea nitrogen [Mass/Vol] 24 mg/dL 06-04 [facility] Thin prep Papanicolaou smear with manual screeningOrdered By: Milton Iglesias on 07-28-2023 Thin prep Papanicolaou smear with manual screening 3 - [facility] DXA-AXIAL SKELETONon 022 [facility] [place] CARDIAC PERF STRESS/PHARM on 02-17-2021 [place] CARDIAC PERF STRESS/PHARM * * *Final Report* * * DATE OF EXAM: Feb 17 2021 11:20AM EJ 0006 - [place] CARDIAC PERF STRESS/PHARM / PROCEDURE REASON: R07.89-Other [...] 60 minutes later. See administered doses below. [facility] Date of service: 02/17/2021 9:54:54 AM Ordering [...] evidence of scarring. Final Stress ECG Report: [facility] Date of service: 02/17/2021 9:54:54 AM Ordering physician: FANY BETHEA Specialist: Rebecca Long Sample Taker Operator: Tyra Flower Stress ECG interpreting physician: Fany [...] for age. [place] double product achieved was [address]. Peak heart rate was 88 bpm and [...] index (CRI): 0.26 Rate Pressure Product (RPP): 84328 Reason for test termination: End of Protocol. Symptoms during test: Shortness of breath. ST segment and T wave changes: No ST changes Arrhythmias: No arrhythmias Final Stress Director Of Property Management Report: [facility] Date of service: 02/17/2021 9:54:54 AM Supervising physician: Gina Marinelli MD PATIENT: Name: MS. PRASHANT SHEFFIELD Age: 70 years Gender: F The supervising physician was present during the stress procedure. Final Wholesale Manager: JANICE Transcritommy Date/Time: Feb 17 2021 9:54A Dictated by : FANY BETHEA DO This examination was interpreted and the report reviewed and electronically signed by: FANY BETHEA DO on Feb 17 2021 5:19PM EST [id number] [facility] PROGRESSon 02-17-2021 PROGRESS HNO ID: [id number] Author: CONNOR Toussaint (Ct) Service: Nuclear Medicine Author Type: Clinical Wellness Specialist Type: Progress Notes Filed: 02/17/2021 10:30 AM [...] POST EXAM PIV STATUS: Discontinued PROCEDURE TYPE: [place] Stress: 12.7mCi [id number] was administered IV for Rest Imaging at 09:23 by CONNOR Toussaint. 34.6 mCi [id number] was administered IV for Stress Imaging at 10:22 by CONNOR Toussaint. PATIENT DISCHARGED TO: Ambulatory patient, left [place] department area. A Diagnostic radioactive procedure has taken place, with no further precautions necessary other than routine body substance precautions. More information regarding radiation safety can be found using this link: [email or web address] [email or web address] SIGNATURE: CONNOR Toussaint PATIENT NAME: Prashant Sheffield DATE: February 17, 2021 TIME: 10:28 AM PAGER/CONTACT #: [facility] PRASHANT SHEFFIELD ([id number]) 1950 F Date Time Provider Department 02/16/21 DEBRA KATZ (ALICE) [facility] During your visit today, we recorded [...] Fully Assessed Reason for Visit: Reminder Call [[id number]] Prescriptions as of 02/16/2021 Sig: VALSARTAN 160 [...] disease (HCC) [N18.31] 01/16/2021 Encounter Status:Closed by DEBERTHA DEBRA on 02/16/21 [facility] Vital Signs Date Time Vital Sign Value Performing Clinician Faci lity 07-09-2025 00:40-0400 Body temperature 97.5 [degF] Dr. Ez Solitario MD Work Phone: 4(751)927-674573 [place] [address] 07-09-2025 00:40-0400 Diastolic blood pressure 61 mm[Hg] Dr. Ez Solitario MD Work Phone: 7(245)230-597573 [place] [address] 07-09-2025 00:40-0400 Heart rate 58 /min Dr. Ez Solitario MD Work Phone: 7(048)689-887373 [place] [address] 07-09-2025 00:40-0400 Respiratory rate 18 /min Dr. Ez Solitario MD Work Phone: 8(468)835-608273 [place] [address] 07-09-2025 00:40-0400 SaO2% (BldA) [Mass fraction] 98 % Dr. Ez Solitario MD Work Phone: 7(730)819-420573 [place] [address] 07-09-2025 00:40-0400 Systolic blood pressure 114 mm[Hg] Dr. Ez Solitario MD Work Phone: 2(115)004-489373 [place] [address] 07-08-2025 11:04-0400 Body height [address] Ez Solitario MD Work Phone: 3(017)532-214473 [place] [address] 07-08-2025 11:04-0400 Body weight 62.[address] Ez Solitario MD Work Phone: 2(001)308-465473 [place] [address] 07-07-2025 12:52-0400 Body mass index (BMI) [Ratio] 25.2 kg/m2 Dr. Ez Solitario MD Work Phone: 6(737)484-924173 [place] [address] 07-07-2025 12:05-0400 Body temperature 97.8 [degF] Dr. Ez Solitario MD Work Phone: 6(105)267-773573 [place] [address] 07-07-2025 12:05-0400 Diastolic blood pressure 66 mm[Hg] Dr. Ez Solitario MD Work Phone: 0(202)371-001273 [place] [address] 07-07-2025 12:05-0400 Heart rate 83 /min Dr. Ez Solitario MD Work Phone: 7(790)414-255873 [place] [address] 07-07-2025 12:05-0400 Respiratory rate 19 /min Dr. Ez Solitario MD Work Phone: 1(337)891-495873 [place] [address] 07-07-2025 12:05-0400 SaO2% (BldA) [Mass fraction] 99 % Dr. Ez Solitario MD Work Phone: 0(746)632-359973 [place] [address] 07-07-2025 12:05-0400 Systolic blood pressure 162 mm[Hg] Dr. Ez Solitario MD Work Phone: 6(501)521-581973 [place] [address] 07-07-2025 09:30-0400 Body height 157.[address] Ez Solitario MD Work Phone: 0(263)008-505873 [place] [address] 07-07-2025 09:30-0400 Body mass index (BMI) [Ratio] 24.9 kg/m2 Dr. Ez Solitario MD Work Phone: 2(135)078-102873 [place] [address] 07-07-2025 09:30-0400 Body weight 61.[address] Ez Solitario MD Work Phone: 1(811)524-631673 [place] [address] 03-08-2025 14:06-0400 Body mass index (BMI) [Ratio] 26.83 kg/m2 Mary Ortiz [employer]LLFISH HARVESTER.HOME CARE GIVER Work Phone: 1(869)935-804355 [place] [address] 03-08-2025 14:06-0400 Body weight 64.05 kg Mary Ortiz APRN.HOME CARE GIVER Work Phone: [facility] 03-08-2025 14:06-0400 Diastolic blood pressure 68 mm[Hg] Mary Ortiz [employer]LLF[employer] HARVESTER.HOME CARE GIVER Work Phone: [facility] 03-08-2025 14:06-0400 Heart rate 57 /min Mary Podlogar [employer]LLFISH HARVESTER.HOME CARE GIVER Work Phone: [facility] 03-08-2025 14:06-0400 Respiratory rate 16 /min Mary Podlogar SHELLFISH HARVESTER.HOME CARE GIVER Work Phone: [facility] 03-08-2025 14:06-0400 SaO2% (BldA) [Mass fraction] 98 % Mary Podlogar SHELLFISH HARVESTER.HOME CARE GIVER Work Phone: [facility] 03-08-2025 14:06-0400 Systolic blood pressure 118 mm[Hg] Mary Podlogar SHELLFISH HARVESTER.HOME CARE GIVER Work Phone: [facility] 01-11-2025 12:48-0500 Body height 154.5 cm Lauren Camacho PA-C Work Phone: [facility] 01-11-2025 12:48-0500 Body mass index (BMI) [Ratio] 26.41 kg/m2 Lauren Camacho PA-C Work Phone: [facility] 01-11-2025 12:48-0500 Body temperature 97.9 [degF] Lauren Camacho PA-C Work Phone: [facility] 01-11-2025 12:48-0500 Body weight 63.05 kg Lauren Camacho PA-C Work Phone: [facility] 01-11-2025 12:48-0500 Diastolic blood pressure 70 mm[Hg] Lauren Camacho PA-C Work Phone: [facility] 01-11-2025 12:48-0500 Heart rate 57 /min Lauren Camacho PA-C Work Phone: [facility] 01-11-2025 12:48-0500 Respiratory rate 16 /min Lauren Camacho PA-C Work Phone: [facility] 01-11-2025 12:48-0500 SaO2% (BldA) [Mass fraction] 100 % Lauren Camacho PA-C Work Phone: [facility] 01-11-2025 12:48-0500 Systolic blood pressure 118 mm[Hg] Lauren Camacho PA-C Work Phone: [facility] 08-20-2024 10:52-0400 Body mass index (BMI) [Ratio] 23.96 kg/m2 Edna Umanzor SHELLFISH HARVESTER.HOME CARE GIVER Work Phone: [facility] 08-20-2024 10:52-0400 Body weight 59.42 kg Edna Umanzor [employer]LLF[employer] HARVESTER.HOME CARE GIVER Work Phone: [facility] 08-20-2024 10:52-0400 Diastolic blood pressure 73 mm[Hg] Edna Umanzor [employer]LLFISH HARVESTER.HOME CARE GIVER Work Phone: [facility] 08-20-2024 10:52-0400 Heart rate 62 /min Edna Umanzor SHELLFISH HARVESTER.HOME CARE GIVER Work Phone: [facility] 08-20-2024 10:52-0400 Respiratory rate 14 /min Edna Umanzor SHELLFISH HARVESTER.HOME CARE GIVER Work Phone: [facility] 08-20-2024 10:52-0400 Systolic blood pressure 131 mm[Hg] Edna Umanzor [employer]LLFISH HARVESTER.HOME CARE GIVER Work Phone: [facility] 07-08-2024 14:21-0400 Diastolic blood pressure 68 mm[Hg] Ez Solitario MD Work Phone: [facility] 07-08-2024 14:21-0400 Systolic blood pressure 132 mm[Hg] Ez Solitario MD Work Phone: [facility] 07-08-2024 13:48-0400 Body mass index (BMI) [Ratio] 23.41 kg/m2 Ez Solitario MD Work Phone: [facility] 07-08-2024 13:48-0400 Body weight 58.06 kg Ez Solitario MD Work Phone: [facility] 07-08-2024 13:48-0400 Heart rate 62 /min Ez Solitario MD Work Phone: [facility] 07-08-2024 13:48-0400 Respiratory rate 16 /min Ez Solitario MD Work Phone: [facility] 12-26-2023 13:54-0500 Body weight 57.15 kg Edna Umanzor [employer]LLFISH HARVESTER.HOME CARE GIVER Work Phone: [facility] 12-26-2023 13:54-0500 Diastolic blood pressure 66 mm[Hg] Edan Umanzor SHELLFISH HARVESTER.HOME CARE GIVER Work Phone: [facility] 12-26-2023 13:54-0500 Heart rate 68 /min Edna Umanzor SHELLFISH HARVESTER.HOME CARE GIVER Work Phone: [facility] 12-26-2023 13:54-0500 Respiratory rate 14 /min Edna Umanzor SHELLFISH HARVESTER.HOME CARE GIVER Work Phone: [facility] 12-26-2023 13:54-0500 Systolic blood pressure 142 mm[Hg] Edna Umanzor SHELLFISH HARVESTER.HOME CARE GIVER Work Phone: [facility] 10-07-2023 15:30-0500 Body height 157.5 cm Daren Prince MD Work Phone: [facility] 10-07-2023 15:30-0500 Body temperature 98.1 [degF] Daren Prince MD Work Phone: [facility] 10-07-2023 15:30-0500 Body weight 55.79 kg Daren Prince MD Work Phone: [facility] 10-07-2023 15:30-0500 Diastolic blood pressure 80 mm[Hg] Daren Prince MD Work Phone: [facility] 10-07-2023 15:30-0500 Heart rate 77 /min Daren Prince MD Work Phone: [facility] 10-07-2023 15:30-0500 SaO2% (BldA) [Mass fraction] 97 % Daren Prince MD Work Phone: [facility] 10-07-2023 15:30-0500 Systolic blood pressure 146 mm[Hg] Daren Prince MD Work Phone: [facility] 09-25-2023 11:37-0500 Body weight 56.25 kg Ez Solitario MD Work Phone: [facility] 09-25-2023 11:37-0500 Diastolic blood pressure 70 mm[Hg] Ez Solitario MD Work Phone: [facility] 09-25-2023 11:37-0500 Heart rate 70 /min Ez Solitario MD Work Phone: [facility] 09-25-2023 11:37-0500 Respiratory rate 16 /min Ez Solitario MD Work Phone: [facility] 09-25-2023 11:37-0500 Systolic blood pressure 120 mm[Hg] Ez Solitario MD Work Phone: [facility] 09-13-2023 15:36-0400 Diastolic blood pressure 84 mm[Hg] Alonso Quinones MD Work Phone: [facility] 09-13-2023 15:36-0400 Systolic blood pressure 130 mm[Hg] Alonso Quinones MD Work Phone: [facility] 09-13-2023 14:33-0400 Heart rate 68 /min Alonso Quinones MD Work Phone: [facility] 09-13-2023 14:33-0400 Respiratory rate 16 /min Alonso Quinones MD Work Phone: [facility] 09-13-2023 14:33-0400 SaO2% (BldA) [Mass fraction] 99 % Alonso Quinones MD Work Phone: [facility] 08-06-2023 11:21-0400 Body temperature 98.5 [degF] Dr. Ez Solitario Work Phone: [facility] 08-06-2023 11:21-0400 Diastolic blood pressure 74 mm[Hg] Dr. Ez Solitario Work Phone: [facility] 08-06-2023 11:21-0400 Heart rate 69 /min Dr. Ez Solitario Work Phone: 2(942)463-629373 [place] [address] 08-06-2023 11:21-0400 Respiratory rate 16 /min Dr. Ez Solitario Work Phone: 2(712)125-500273 [place] [address] 08-06-2023 11:21-0400 SaO2% (BldA) [Mass fraction] 96 % Dr. Ez Solitario Work Phone: 0(945)596-775473 [place] [address] 08-06-2023 11:21-0400 Systolic blood pressure 127 mm[Hg] Dr. Ez Solitario Work Phone: 4(756)417-142673 [place] [address] 08-05-2023 13:55-0400 Body height 157.[address] Ez Solitario Work Phone: 6(456)901-286473 [place] [address] 08-05-2023 13:55-0400 Body weight 62.[address] Ez Solitario Work Phone: 1(078)875-794473 [place] [address] 08-02-2023 12:19-0400 Inhaled oxygen flow rate 96 L/min Dr. Ez Solitario Work Phone: 9(544)181-772773 [place] [address] 08-01-2023 23:02-0400 Body mass index (BMI) [Ratio] 25 kg/m2 Dr. Ez Solitario Work Phone: 5(344)216-550673 [place] [address] 08-01-2023 19:20-0400 Body temperature 97.8 [degF] Dr. Ez Solitario Work Phone: 5(135)422-168973 [place] [address] 08-01-2023 19:20-0400 Diastolic blood pressure 78 mm[Hg] Dr. Ez Solitario Work Phone: 2(395)077-910773 [place] [address] 08-01-2023 19:20-0400 Heart rate 72 /min Dr. Ez Solitario Work Phone: 5(561)753-625673 [place] [address] 08-01-2023 19:20-0400 Respiratory rate 14 /min Dr. Ez Solitario Work Phone: 5(851)447-644973 [place] [address] 08-01-2023 19:20-0400 SaO2% (BldA) [Mass fraction] 97 % Dr. Ez Solitario Work Phone: 7(100)542-393073 [place] [address] 08-01-2023 19:20-0400 Systolic blood pressure 148 mm[Hg] Dr. Ez Solitario Work Phone: [facility] 08-01-2023 19:13-0400 Body height 157.[address] Ez Solitario Work Phone: [facility] 08-01-2023 19:13-0400 Body mass index (BMI) [Ratio] 24.8 kg/m2 Dr. Ez Solitario Work Phone: [facility] 08-01-2023 19:13-0400 Body weight 61.[address] Ez Solitario Work Phone: [facility] 07-28-2023 12:38-0400 Body mass index (BMI) [Ratio] 23.1 kg/m2 [facility] 07-28-2023 12:38-0400 Body weight 63.23 kg [facility] 07-28-2023 12:38-0400 Diastolic blood pressure 77 mm[Hg] [facility] 07-28-2023 12:38-0400 Heart rate 62 /min [facility] 07-28-2023 12:38-0400 Respiratory rate 15 /min [facility] 07-28-2023 12:38-0400 SaO2% (BldA) [Mass fraction] 98 % [facility] 07-28-2023 12:38-0400 Systolic blood pressure 124 mm[Hg] [facility] 07-28-2023 09:30-0400 Body height 165.1 cm [facility] 07-28-2023 09:30-0400 Body temperature 97.3 [degF] [facility] 05-24-2023 13:22-0400 Body temperature 97.81 [degF] Lauren Camacho PA-C Work Phone: [facility] 05-24-2023 13:22-0400 Body weight 63.5 kg Lauren Camacho PA-C Work Phone: [facility] 05-24-2023 13:22-0400 Diastolic blood pressure 70 mm[Hg] Lauren Camacho PA-C Work Phone: [facility] 05-24-2023 13:22-0400 Heart rate 56 /min Lauren Camacho PA-C Work Phone: [facility] 05-24-2023 13:22-0400 Respiratory rate 16 /min Lauren Camacho PA-C Work Phone: [facility] 05-24-2023 13:22-0400 Systolic blood pressure 110 mm[Hg] Lauren Camacho PA-C Work Phone: [facility] 05-02-2023 13:54-0400 Body weight 63.5 kg Edna Umanzor SHELLFISH HARVESTER.HOME CARE GIVER Work Phone: [facility] 05-02-2023 13:54-0400 Diastolic blood pressure 68 mm[Hg] Edna Umanzor SHELLFISH HARVESTER.HOME CARE GIVER Work Phone: [facility] 05-02-2023 13:54-0400 Heart rate 63 /min Edna Umanzor SHELLFISH HARVESTER.HOME CARE GIVER Work Phone: [facility] 05-02-2023 13:54-0400 Respiratory rate 16 /min Edna Umanzor SHELLFISH HARVESTER.HOME CARE GIVER Work Phone: [facility] 05-02-2023 13:54-0400 SaO2% (BldA) [Mass fraction] 97 % Edna Umanzor SHELLFISH HARVESTER.HOME CARE GIVER Work Phone: [facility] 05-02-2023 13:54-0400 Systolic blood pressure 110 mm[Hg] Edna Umanzor SHELLFISH HARVESTER.HOME CARE GIVER Work Phone: [facility] 02-12-2023 09:25-0400 Diastolic blood pressure 74 mm[Hg] Ez Solitario MD Work Phone: [facility] 02-12-2023 09:25-0400 Systolic blood pressure 128 mm[Hg] Ez Solitario MD Work Phone: [facility] 02-12-2023 08:56-0400 Body weight 64.86 kg Ez Solitario MD Work Phone: [facility] 02-12-2023 08:56-0400 Heart rate 76 /min Ez Solitario MD Work Phone: [facility] 02-12-2023 08:56-0400 Respiratory rate 16 /min Ez Solitario MD Work Phone: [facility] 02-07-2022 08:18-0400 Body weight 64.86 kg Ez Solitario MD Work Phone: [facility] 02-07-2022 08:18-0400 Diastolic blood pressure 74 mm[Hg] Ez Solitario MD Work Phone: [facility] 02-07-2022 08:18-0400 Heart rate 70 /min Ez Solitario MD Work Phone: [facility] 02-07-2022 08:18-0400 Respiratory rate 12 /min Ez Solitario MD Work Phone: [facility] 02-07-2022 08:18-0400 Systolic blood pressure 118 mm[Hg] Ez Solitario MD Work Phone: [facility] Encounters Encounter Date Encounter Type Care Provider Facility Start: 08-23-2025 End: 08-23-2025 ambulatory SELF Facility:[facility] Start: 08-03-2025 ambulatory [facility] Facility :[facility] Start: 07-27-2025 ambulatory [facility] Facility :[facility] Start: 07-22-2025 ambulatory [facility] Facility :[facility] Start: 07-08-2025 Non-patient / Non-visit Dr. Davin johnson MD -[facility] Work Phone: Start: 07-07-2025 End: 07-07-2025 Chart abstracting Ez Solitario MD Work Phone: [facility] [place] Comment on above: Abstract ([facility] admiss ion) Start: 07-07-2025 Non-patient / Non-visit Dr. Davin johnson MD -[facility] Work Phone: Start: 07-07-2025 End: 07-09-2025 ambulatory Davin Kirkland Facility:[facility] Start: 07-07-2025 End: 07-09-2025 Evaluation and management of inpatient Dr. Davin Kirkland MD -[facility] Work Phone: Start: 07-07-2025 End: 07-09-[address] Ez Solitario MD Work Phone: -[facility] Start: 07-01-2025 End: 07-01-2025 Chart abstracting Ez Solitario MD Work Phone: [facility] [place] Comment on above: Abstract (Neurology OV) Start: 05-05-2025 End: 05-05-2025 Chart abstracting Patti Tomas MA [facility] [place] Comment on above: Consult (Neurology / ) Start: 03-17-2025 End: 03-17-2025 Chart abstracting Patti Tomas MA [facility] [place] Comment on above: Physical Therapy (Ou tside PT consult ) Start: 03-08-2025 End: 03-08-2025 Patient encounter procedure Mary Ortiz APRN.CNP Work Phone: [facility] Comment on above: Traumatic ecchymosis of right lower leg, initial encounter (Primary Dx) Start: 03-08-2025 End: 03-08-2025 ambulatory EZ SOLITARIO Facility:[facility] Start: 02-26-2025 End: 02-26-2025 Follow-up encounter Edna Umanzor APRN.CNP Work Phone: [facility] [place] Comment on above: Results Start: 02-23-2025 End: 02-23-2025 Follow-up encounter Edna Umanzor APRN.CNP Work Phone: [facility] [place] Comment on above: Results Start: 02-22-2025 End: 02-22-2025 ambulatory EZ SOLITARIO Facility:[facility] Start: 02-22-2025 End: 02-22-2025 Subsequent hospital visit by physician [facility] Work Phone: Radiology Comment on above: Asymptomatic menopau se [Z78.0] Encounter for screen ing mammogram for breast cancer [Z12.31] Start: 02-04-2025 End: 02-04-2025 Chart abstracting Ez Solitario MD Work Phone: [facility] [place] Comment on above: Outside Neurology Start: 01-13-2025 End: 01-13-2025 Follow-up encounter Lauren Camacho PA-C Work Phone: [facility] [place] Start: 01-11-2025 End: 01-11-2025 ambulatory EZ SOLITARIO Facility:[facility] Start: 01-11-2025 End: 01-11-2025 ambulatory EZ SOLITARIO Facility:[facility] Start: 01-11-2025 End: 01-11-2025 Patient encounter procedure Lauren Camacho PA-C Work Phone: [facility] [place] Comment on above: Medicare annual [facility], subsequent (Primary Dx); Advance directive discussed [...] frequency; Asymptomatic menopause Start: 01-06-2025 End: 01-06-2025 [facility] Facility:[facility] Start: 01-05-2025 End: 01-05-2025 ambulatory EZ SOLITARIO Facility:[facility] Start: 12-10-2024 End: 12-11-2024 Refill Ez Solitario MD Work Phone: [facility] [place] Comment on above: Refill Request Start: 11-24-2024 End: 11-24-2024 Chart abstracting Ez Solitario MD Work Phone: [facility] [place] Comment on above: Outside PT/OT/Speech Start: 10-27-2024 End: 10-27-2024 Chart abstracting Ez Solitario MD Work Phone: [facility] [place] Comment on above: Outside Neurology Start: 09-30-2024 End: 10-05-2024 ambulatory Ez Solitario MD Work Phone: Internal [facility] [place] Start: 09-15-2024 End: 09-15-2024 Refill Ez Solitario MD Work Phone: [facility] [place] Comment on above: Refill Request Start: 09-14-2024 End: 09-14-2024 ambulatory Meño Phillip PT Work Phone: [facility] Comment on above: Acute midline low ba ck pain without sciatica (Primary Dx) Start: 08-25-2024 End: 08-25-2024 Telephone encounter Edna Umanzor APRN.HOME CARE GIVER Work Phone: [facility] Comment on above: Results Start: 08-24-2024 End: 08-24-2024 Telephone encounter Ez Solitario MD Work Phone: [facility] [place] Comment on above: Results Start: 08-20-2024 End: 08-20-2024 Subsequent hospital visit by physician Valentin [facility] [place] Work Phone: Radiology Comment on above: Left leg pain [M79.6 05] Start: 08-20-2024 End: 08-20-2024 Patient encounter procedure Edna Umanzor APRN.HOME CARE GIVER Work Phone: [facility] Comment on above: Left leg pain (Prima ry Dx); Encounter for immunization Start: 08-10-2024 End: 08-10-2024 Refill Ez Solitario MD Work Phone: [facility] [place] Comment on above: Refill Request Start: 08-07-2024 End: 08-07-2024 Telephone encounter Ez Solitario MD Work Phone: [facility] [place] Comment on above: Jury duty letter Start: 07-28-2024 End: 07-28-2024 Chart abstracting Ez Solitario MD Work Phone: [facility] Comment on above: Outside Neurology Start: 07-08-2024 End: 07-08-2024 Patient encounter procedure Ez Solitario MD Work Phone: [facility] [place] Comment on above: Elevated hemoglobin A1c [...] 06-15-2024 Refill Ez molina MD Work Phone: [facility] [place] Comment on above: Refill Request Start: 04-28-2024 Chart abstracting Ez aviles MD Work Phone: [facility] [place] Comment on above: Outside Neuro Start: 02-17-2024 End: 02-17-2024 Patient encounter procedure ELIO SERRATO MD [facility] Start: 02-17-2024 End: 02-18-2024 Refill Ez Solitario MD Work Phone: [facility] [place] Comment on above: Refill Request Start: 01-27-2024 Telephone encounter Edna herrmann APRN.HOME CARE GIVER Work Phone: [facility] [place] Comment on above: Results Start: 12-26-2023 End: 12-26-2023 Patient encounter procedure Edna Umanzor APRN.CNP Work Phone: [facility] [place] Comment on above: Medicare annual well ness visit, subsequent (Primary Dx); Iron deficiency anemia, [...] Ez molina MD Work Phone: Internal Medicine [facility] Start: 10-07-2023 End: 10-07-2023 Patient encounter procedure Daren Prince MD Work Phone: General Surgery Comment on above: GERD without esophag itis (Primary Dx); Iron deficiency anemia, unspecified iron deficiency anemia type Start: 10-07-2023 End: 09-22-2024 Telephone encounter Daren Prince MD Work Phone: General Surgery Comment on above: 11/28/2023 COLON/EGD [facility] Start: 10-04-2023 Telephone encounter Ez Solitario MD Work Phone: Family [facility] Comment on above: Results Start: 10-01-2023 Home visit Ez molina MD Work Phone: [facility] [place] Comment on above: Parkinson's disease, unspecified whether dyskinesia present, unspecified whether manifestations fluctuate (Primary Dx) Start: 09-25-2023 End: 09-25-2023 Patient encounter procedure Ez Solitario MD Work Phone: [facility] [place] Comment on above: Cecal volvulus (HCC) (Primary Dx); Vaginal discharge; Encounter for immunization; Anemia, unspecified type; Stage 3a chronic kidney disease (HCC); Other general symptoms and signs; Anxiety and depression Start: 09-20-2023 Telephone encounter Ez Solitario MD Work Phone: [facility] [place] Comment on above: Addend then Fax last OV notes Start: 09-16-2023 Telephone encounter Ez Solitario MD Work Phone: [facility] [place] Comment on above: Patient Update Start: 09-13-2023 End: 09-13-2023 Patient encounter procedure Alonso Quinones MD Work Phone: [facility] Comment on above: Anxiety with depress ion (Primary Dx); Colonic volvulus (HCC); S/P right hemicolectomy; Essential hypertension; Parkinson's disease with dyskinesia, unspecified whether manifestations fluctuate; Mobility impaired Start: 09-10-2023 Telephone encounter Ez Solitario MD Work Phone: [facility] Comment on above: Home Health Orders Start: 09-05-2023 Chart abstracting Ez aviles MD Work Phone: [facility] Comment on above: Consult (General Sandra tracy /) Start: 08-06-2023 Non-patient / Non-visit Dr. Dimitri Solitario Work Phone: [facility] Start: 08-05-2023 Non-patient / Non-visit Dr. Dimitri Solitario Work Phone: [facility] Start: 08-04-2023 Non-patient / Non-visit Dr. Dimitri Solitario Work Phone: [facility] Start: 08-03-2023 Non-patient / Non-visit Dr. Dimitri Solitario Work Phone: [facility] Start: 08-02-2023 Chart abstracting Ez aviles MD Work Phone: [facility] Comment on above: Outside [id number] Ordered (Imaging/) Start: 08-02-2023 Non-patient / Non-visit Dr. Dimitri Solitario Work Phone: [facility] Start: 08-01-2023 End: 08-06-2023 Evaluation and management of inpatient [facility]: Start: 08-01-2023 Admission [facility] Dr. Ez Solitario Work Phone: [facility]-Primary Operator Work Phone: Start: 08-01-[address] Ez aviles Work Phone: [facility] Work Phone: Start: 08-01-2023 Non-patient / Non-visit Dr. Dimitri Solitario Work Phone: [facility] Start: 08-01-2023 Telephone encounter Ez Solitario MD Work Phone: [facility] Comment on above: Results Start: 07-28-2023 End: 07-28-2023 Emergency department patient visit [facility]-Emergency Department Work Phone: Start: 07-24-2023 End: 07-24-2023 ambulatory Mary You OT/[facility] [place] Comment on above: Parkinson's disease (HCC) (Primary Dx); Mobility impaired; Falls frequently; Driving safety issue Start: 07-16-2023 Refill Ez molina MD Work Phone: [facility] Comment on above: Refill Request Start: 07-15-2023 Refill Ez molina MD Work Phone: [facility] Comment on above: Refill Request Start: 06-14-2023 Telephone encounter Lauren daley PA-C Work Phone: [facility] Comment on above: Results Start: 05-31-2023 Telephone encounter Lauren daley PA-C Work Phone: [facility] Comment on above: Results Start: 05-27-2023 Telephone encounter Lauren daley PA-C Work Phone: [facility] Comment on above: Results Start: 05-24-2023 End: 05-24-2023 Patient encounter procedure Lauren Camacho PA-C Work Phone: [facility] Comment on above: Peripheral edema (Pr imary Dx); Leg swelling Start: 05-15-2023 Chart abstracting Ez aviles MD Work Phone: [facility] Comment on above: Outside Neurology Start: 05-09-2023 Telephone encounter Edna herrmann APRN.HOME CARE GIVER Work Phone: [facility] Comment on above: Results Start: 05-07-2023 Telephone encounter Lauren daley PA-C Work Phone: [facility] Comment on above: Results Start: 05-02-2023 End: 05-02-2023 Patient encounter procedure Edna Umanzor APRN.HOME CARE GIVER Work Phone: [facility] Comment on above: Essential hypertensi on (Primary Dx); Lower extremity edema; Hypertensive heart and chronic kidney disease with heart failure and stage 1 through stage 4 chronic kidney disease, or unspecified chronic kidney disease (HCC) Start: 02-21-2023 Chart abstracting Ez aviles MD Work Phone: [facility] Comment on above: Consult Start: 02-12-2023 Telephone encounter Ez Solitario MD Work Phone: [facility] Comment on above: Results Start: 02-12-2023 End: 02-12-2023 Patient encounter procedure Ez Solitario MD Work Phone: [facility] Comment on above: Essential hypertensi on (Primary Dx); Mixed hyperlipidemia; Elevated fasting blood sugar; Stage 3a chronic kidney disease (HCC); Parkinson's disease (HCC); Memory loss; Anxiety and depression; GERD without esophagitis; Low serum vitamin B12; Frequent falls; Advance directive discussed with patient; Encounter for immunization; Medication management Start: 02-11-2023 Telephone encounter Ez Solitario MD Work Phone: [facility] Comment on above: Lab Orders Start: 01-29-2023 End: 01-29-2023 ambulatory [facility] Work Phone: Start: 01-29-2023 End: 01-29-2023 Discharged Recurring [facility]-Physical Therapy Start: 01-28-2023 Refill Ez molina MD Work Phone: [facility] [place] Comment on above: Refill Request Start: 01-07-2023 Refill Ez molina MD Work Phone: [facility] [place] Comment on above: Refill Request Start: 08-27-2022 Telephone encounter Lauren daley PA-C Work Phone: [facility] [place] Comment on above: Results Refill Request Start: 08-15-2022 Telephone encounter Ez Solitario MD Work Phone: [facility] [place] Comment on above: Living Will update Start: 08-13-2022 Patient encounter procedure Ez Solitario MD Work Phone: [facility] Work Phone: Start: 05-12-2022 Refill Amita Jones [facility] [place] Comment on above: Refill Request Start: 02-27-2022 Refill Ez molina MD Work Phone: [facility] Comment on above: Refill Request Start: 02-20-2022 Telephone encounter Daren wang MD Work Phone: General Surgery Comment on above: colonoscopy recall Start: 02-12-2022 End: 02-12-2022 Subsequent hospital visit by physician [facility] [facility] Work Phone: Radiology Comment on above: Osteopenia, senile [ M85.80] Start: 02-07-2022 End: 02-07-2022 Patient encounter procedure Ez Solitario MD Work Phone: [facility] [place] Comment on above: Essential hypertensi on (Primary Dx); Mixed hyperlipidemia; Elevated fasting blood sugar; GERD without esophagitis; Stage 3a chronic kidney disease (HCC); Anxiety and depression; Parkinson's disease (HCC); Memory loss; Osteopenia, senile; Low serum vitamin B12; Colon cancer screening; Primary ovarian failure; Medication management Start: 02-05-2022 Telephone encounter Ez Solitario MD Work Phone: [facility] [place] Comment on above: Patient Question Start: 01-16-2021 Patient encounter procedure Ez Solitario MD Work Phone: [facility] Work Phone: Start: 06-06-2018 Patient encounter status Ruth Solitario MD Work Phone: [facility] Work Phone: Procedures Date Procedure Procedure Detail [...] Camacho PA-C Work Phone: Start: 01-05-2025 Lipid 1996 panel - S camila or Plasma Lauren Camacho PA-C Work Phone: Start: 08-20-2024 PFIZER-BIONTAdaptimmune COVI D-19 VACCINE AGE 12+ YR (COMIRNATY) Edna Umanzor APRN.HOME CARE GIVER Work Phone: Start: 07-03-2024 Lipid 1996 panel - S camila or Plasma Ez Solitario MD Work Phone: Start: 12-11-2023 Lipid 1995 panel - S camila or Plasma Edna Umanzor APRN.HOME CARE GIVER Work Phone: Start: 09-25-2023 INFLUENZA VACCINE, P [...] Plasma Ez Solitario MD Work Phone: Start: 05-02-2023 Ecg routine ecg w/le ast 12 lds i&r only [facility] Provider Start: 02-12-2023 PFIZER-BIONTECH COVI D-19 BIVALENT BOOSTER VACCINE, AGE 12+ [...] P,Tdap,Td Vaccine (2 - Td or Tdap) [facility] Start: 01-05-2030 Lipid panel Lipid Screening [facility] Start: 07-03-2029 Lipid panel Lipid Screening [facility] Start: 12-11-2028 Lipid panel Lipid Screening [facility] Start: 07-25-2028 Lipid 1996 panel - S camila or Plasma Lipid Screening [facility] Start: 01-05-2028 Diabetes Screening Diabetes Screenin g [facility] Start: 08-08-2027 LIPID SCREEN LIPID SCREEN [facility] Start: 07-03-2027 Diabetes Screening Diabetes Screenin g [facility] Start: 02-05-2027 LIPID SCREEN LIPID SCREEN [facility] Start: 01-01-2027 LIPID SCREEN LIPID SCREEN [facility] Start: 12-11-2026 Diabetes Screening Diabetes Screenin g [facility] Start: 09-25-2026 Diabetes Screening Diabetes Screenin g [facility] Start: 07-25-2026 DIABETES SCREEN DIABETES SCREEN [facility] Start: 07-25-2026 Diabetes Screening Diabetes Screenin g [facility] Start: 05-30-2026 DIABETES SCREEN DIABETES SCREEN [facility] Start: 05-24-2026 DIABETES SCREEN DIABETES SCREEN [facility] Start: 05-02-2026 DIABETES SCREEN DIABETES SCREEN [facility] Start: 03-08-2026 Annual PCP Team State Wildlife Officer vilma Disease Visit Annual PCP Team Chronic Disease Visit [facility] Start: 03-08-2026 BP Controlled (<130/80) BP Controlle d (<130/80) [facility] Start: 02-22-2026 Screening for malign ant neoplasm of breast Mammogram Screening [facility] Start: 02-19-2026 Colonoscopy COLONOSCOPY [facility] Start: 02-19-2026 COLORECTAL CANCER SCREENING COLORECTAL CANCER SCREENING [facility] Start: 02-19-2026 Screening for malign ant neoplasm of colon [facility] Start: 02-12-2026 DIABETES SCREEN DIABETES SCREEN [facility] Start: 01-11-2026 Annual PCP Team State Wildlife Officer vilma Disease Visit Annual PCP Team Chronic Disease Visit [facility] Start: 01-11-2026 BP Controlled (<130/80) BP Controlle d (<130/80) [facility] Start: 01-11-2026 Medicare Annual Well ness Visit Medicare Annual Wellness Visit [facility] Start: 01-05-2026 Complete blood count Hemoglobin/Mando tocrit [facility] Start: 01-05-2026 Creatinine measurement Serum Creatin ine [facility] Start: 08-24-2025 DIABETES SCREEN DIABETES SCREEN [facility] Start: 08-20-2025 Annual PCP Team State Wildlife Officer vilma Disease Visit Annual PCP Team Chronic Disease Visit [facility] Start: 08-08-2025 DIABETES SCREEN DIABETES SCREEN [facility] Start: 07-19-2025 Influenza vaccination Influenza Vacc ine (#1) [facility] Start: 07-12-2025 End: 07-12-2025 Patient encounter procedure [facility] [place] [facility] Comment on above: 6 month f/u Start: 07-09-2025 Patient discharge [facility] Start: 07-08-2025 Annual PCP Team State Wildlife Officer vilma Disease Visit Annual PCP Team Chronic Disease Visit [facility] Start: 07-08-2025 BP Controlled (<130/80) BP Controlle d (<130/80) [facility] Start: 07-08-2025 Covid-19 Vaccine ( season) Covid-19 Vaccine ( season) [facility] Comment on above: Postponed from 01/23 (Declined at this time) Start: 07-08-2025 RSV Vaccine (1 - 1-d ose 60+ series) RSV Vaccine (1 - 1-dose 60+ series) [facility] Comment on above: Postponed from 03/05 (Insurance Coverage) Start: 07-08-2025 RSV Vaccine (1 - Ris k 60-74 years 1-dose series) RSV Vaccine (1 - Risk 60-74 years 1-dose series) [facility] Comment on above: Postponed from 03/05 (Insurance Coverage) Start: 07-08-2025 Measurement of occul t blood in stool specimen using immunoassay [facility] Start: 07-08-2025 Consultation [facility] Start: 07-08-2025 Serum inorganic phos phate measurement [facility] Start: 07-08-2025 Thyroid stimulating hormone measurement [facility] Start: 07-07-2025 Following clinical p athway protocol [facility] Start: 07-07-2025 Assessment of risk o f venous thromboembolism [facility] Start: 07-07-2025 Catheterization of vein [facility] Start: 07-07-2025 Incentive spirometry [facility] Start: 07-07-2025 Insertion of cathete r into peripheral vein [facility] Start: 07-07-2025 Oxygen therapy [facility] Start: 07-07-2025 Providing care accor ding to standard [facility] Start: 07-07-2025 Provision of activit y privileges [facility] Start: 07-07-2025 Referral to occupati onal therapist [facility] Start: 07-07-2025 Referral to service [facility] Start: 07-07-2025 [facility] Start: 07-07-2025 Verification routine [facility] Start: 07-07-2025 Admission procedure [facility] Start: 07-07-2025 Hospital admission, emergency, from emergency room, medical nature [facility] Start: 07-07-2025 Patient referral to dietitian [facility] Start: 07-03-2025 Complete blood count Hemoglobin/Mando tocwyt [facility] Start: 07-03-2025 Creatinine measurement Serum Creatin ine [facility] Start: 02-22-2025 End: 02-22-2025 Patient encounter procedure Radiology Comment on above: Dx: Asymptomatic men opause [Z78.0] Dx: Encounter for sc reening mammogram for breast cancer [Z12.31] Start: 02-18-2025 Covid-19 Vaccine ( season) Covid-19 Vaccine () [facility] Start: 02-05-2025 DIABETES SCREEN DIABETES SCREEN [facility] Start: 01-23-2025 Complete blood count Hemoglobin/Mando tocrit [facility] Start: 01-11-2025 End: 04-12-2025 Bacteria identified in Urine by Culture [facility] Work Phone: Comment on above: Expected: 01/11/2025 , Expires: 04/12/2025 Start: 01-11-2025 End: 01-11-2025 Patient encounter procedure 01/11/2025 12:40 PM EST Office Visit Family Medicine [address] [place] [address] Lauren Camacho PA-C [address] [facility] [place] [address] Medicare wellness [facility] Comment on above: Medicare wellness Start: 01-01-2025 DIABETES SCREEN DIABETES SCREEN [facility] Start: 12-26-2024 Annual PCP Team State Wildlife Officer vilma Disease Visit Annual PCP Team Chronic Disease Visit [facility] Start: 12-25-2024 End: 03-26-2025 CBC W Auto Differential panel - Blood COMPLETE BLOOD COUNT AND DIFFERENTIAL Lab Routine Stage 3a chronic kidney disease (HCC) Anemia, unspecified type Low serum vitamin B12 Expected: 12/25/2024, Expires: 03/26/2025 [facility] Comment on above: Expected: 12/25/2024 , Expires: 03/26/2025 Start: 12-25-2024 End: 03-26-2025 Cobalamin (Vitamin B12) [Mass/volume] in Serum or Plasma VITAMIN B12 Lab Routine GERD without esophagitis Low serum vitamin B12 Medication management Expected: 12/25/2024, Expires: 03/26/2025 [facility] Work Phone: Comment on above: Expected: 12/25/2024 , Expires: 03/26/2025 Start: 12-25-2024 End: 03-26-2025 Comprehensive metabolic 2000 panel - Serum or Plasma COMPREHENSIVE METABOLIC PANEL Lab Routine Mixed hyperlipidemia Essential hypertension Stage 3a chronic kidney disease (HCC) Expected: 12/25/2024, Expires: 03/26/2025 [facility] Comment on above: Expected: 12/25/2024 , Expires: 03/26/2025 Start: 12-25-2024 End: 03-26-2025 Hemoglobin A1c in Blood HEMOGLOBIN A1C Lab Routine Elevated hemoglobin A1c Expected: 12/25/2024, Expires: 03/26/2025 [facility] Comment on above: Expected: 12/25/2024 , Expires: 03/26/2025 Start: 12-25-2024 End: 03-26-2025 Iron and Iron binding capacity panel - Serum or Plasma IRON AND TIBC Lab Routine Iron deficiency anemia, unspecified iron deficiency anemia type Expected: 12/25/2024, Expires: 03/26/2025 [facility] Comment on above: Expected: 12/25/2024 , Expires: 03/26/2025 Start: 12-25-2024 End: 03-26-2025 LIPID PANEL, NONFASTING LIPID PANEL, NONFASTING Lab Routine Mixed hyperlipidemia Essential hypertension Expected: 12/25/2024, Expires: 03/26/2025 [facility] Comment on above: Expected: 12/25/2024 , Expires: 03/26/2025 Start: 12-25-2024 End: 03-26-2025 Magnesium [Mass/volume] in Serum or Plasma MAGNESIUM Lab Routine GERD without esophagitis Medication management Expected: 12/25/2024, Expires: 03/26/2025 [facility] Comment on above: Expected: 12/25/2024 , Expires: 03/26/2025 Start: 12-25-2024 End: 03-26-2025 Urinalysis complete panel - Urine URINALYSIS, WITH MICROSCOPIC Lab Routine Mixed hyperlipidemia Essential hypertension Expected: 12/25/2024, Expires: 03/26/2025 [facility] Comment on above: Expected: 12/25/2024 , Expires: 03/26/2025 Start: 12-11-2024 Complete blood count Hemoglobin/Mando tocrit [facility] Start: 12-11-2024 Creatinine measurement Serum Creatin ine [facility] Start: 11-18-2024 Advance Directive Discussion Advance Directive Discussion [facility] Start: 09-25-2024 Annual PCP Team State Wildlife Officer vilma Disease Visit Annual PCP Team Chronic Disease Visit [facility] Start: 09-25-2024 BP Controlled (<130/80) BP Controlle d (<130/80) [facility] Start: 09-25-2024 Hemoglobin/Hematocrit Hemoglobin/Hem atocrit [facility] Start: 09-25-2024 Serum Creatinine Serum Creatinine Cl [facility] Start: 09-13-2024 Annual PCP Team State Wildlife Officer vilma Disease Visit Annual PCP Team Chronic Disease Visit [facility] Start: 08-20-2024 End: 08-20-2024 Patient encounter procedure 08/20/2024 11:20 AM EDT Office Visit [facility] [address] [place], [place] [id number] Edna Umanzor APRN.[facility] [address] [place] [address] 6 week follow up muscle spasm [facility] Comment on above: 6 week follow up mus irma spasm Start: 07-25-2024 HEMOGLOBIN/HEMATOCRIT HEMOGLOBIN/HEM ATOCRIT [facility] Start: 07-25-2024 Serum Creatinine Serum Creatinine Cl [facility] Start: 07-19-2024 Covid-19 Vaccine ( season) Covid-19 Vaccine () [facility] Start: 07-19-2024 Covid-19 Vaccine () Covid-19 Vaccine () [facility] Start: 07-19-2024 Influenza vaccination Influenza Vacc ine (#1) [facility] Start: 07-08-2024 End: 07-08-2024 Patient encounter procedure 07/08/2024 1:40 PM EDT Office Visit Family [facility] [address] [place], [place] [id number] Ez Solitario MD [address] [place] [address] 6 month follow up [facility] [place] Comment on above: 6 month follow up Start: 06-26-2024 End: 09-25-2024 25-hydroxyvitamin D3 [Mass/volume] in Serum or Plasma VITAMIN D 25 HYDROXY Lab Routine Osteopenia, senile Expected: 06/26/2024, Expires: 09/25/2024 [facility] Work Phone: Comment on above: Expected: 06/26/2024 , Expires: 09/25/2024 Start: 06-26-2024 End: 09-25-2024 CBC W Auto Differential panel - Blood CBC + DIFF Lab Routine Iron deficiency anemia, unspecified iron deficiency anemia type Expected: 06/26/2024, Expires: 09/25/2024 [facility] Work Phone: Comment on above: Expected: 06/26/2024 , Expires: 09/25/2024 Start: 06-26-2024 End: 09-25-2024 Comprehensive metabolic 2000 panel - Serum or Plasma COMP METABOLIC PANEL Lab Routine Stage 3a chronic kidney disease (HCC) Expected: 06/26/2024, Expires: 09/25/2024 [facility] Work Phone: Comment on above: Expected: 06/26/2024 , Expires: 09/25/2024 Start: 06-26-2024 End: 09-25-2024 Ferritin [Mass/volume] in Serum or Plasma FERRITIN BLD Lab Routine Iron deficiency anemia, unspecified iron deficiency anemia type Expected: 06/26/2024, Expires: 09/25/2024 [facility] Work Phone: Comment on above: Expected: 06/26/2024 , Expires: 09/25/2024 Start: 06-26-2024 End: 09-25-2024 Hemoglobin A1c in Blood HGB A1C Lab Routine Elevated hemoglobin A1c Expected: 06/26/2024, Expires: 09/25/2024 [facility] Work Phone: Comment on above: Expected: 06/26/2024 , Expires: 09/25/2024 Start: 06-26-2024 End: 09-25-2024 Iron and Iron binding capacity panel - Serum or Plasma IRON + TIBC Lab Routine Iron deficiency anemia, unspecified iron deficiency anemia type Expected: 06/26/2024, Expires: 09/25/2024 [facility] Work Phone: Comment on above: Expected: 06/26/2024 , Expires: 09/25/2024 Start: 06-26-2024 End: 09-25-2024 LIPID PANEL, NONFASTING LIPID PANEL, NONFASTING Lab Routine Mixed hyperlipidemia Expected: 06/26/2024, Expires: 09/25/2024 [facility] Work Phone: Comment on above: Expected: 06/26/2024 , Expires: 09/25/2024 Start: 06-07-2024 ANNUAL PCP TEAM PROPERTY MANAGEMENT ASSISTANT [place] DISEASE VISIT ANNUAL PCP TEAM CHRONIC DISEASE VISIT [facility] Start: 05-30-2024 SERUM CREATININE SERUM CREATININE Cl [facility] Start: 05-24-2024 ANNUAL PCP TEAM PROPERTY MANAGEMENT ASSISTANT [place]ILMA DISEASE VISIT ANNUAL PCP TEAM CHRONIC DISEASE VISIT [facility] Start: 05-24-2024 BP CONTROLLED (<130/80) BP CONTROLLE D (<130/80) [facility] Start: 05-24-2024 SERUM CREATININE SERUM CREATININE [facility] Start: 05-18-2024 Shingrix Vaccine (2 of 2) Mathews grix Vaccine (2 of 2) [facility] Start: 05-02-2024 ANNUAL PCP TEAM PROPERTY MANAGEMENT ASSISTANT [place] DISEASE VISIT ANNUAL PCP TEAM CHRONIC DISEASE VISIT [facility] Start: 05-02-2024 BP CONTROLLED (<130/80) BP CONTROLLE D (<130/80) [facility] Start: 05-02-2024 SERUM CREATININE SERUM CREATININE Cl [facility] Start: 02-13-2024 ANNUAL PCP TEAM PROPERTY MANAGEMENT ASSISTANT [place] DISEASE VISIT ANNUAL PCP TEAM CHRONIC DISEASE VISIT [facility] Start: 02-13-2024 BP CONTROLLED (<130/80) BP CONTROLLE D (<130/80) [facility] Start: 02-13-2024 HEMOGLOBIN/HEMATOCRIT HEMOGLOBIN/HEM ATOCRIT [facility] Start: 02-13-2024 SERUM CREATININE SERUM CREATININE [facility] Start: 02-13-2024 SHINGRIX VACCINE (1 of 2) MATHEWS GRIX VACCINE (1 of 2) [facility] Comment on above: Postponed from 03/05 (Insurance Coverage) Start: 02-13-2024 Urine microalbumin profile [facility] Comment on above: Postponed from 03/05 (Insurance Coverage) Start: 01-24-2024 End: 04-24-2024 CBC W Auto Differential panel - Blood CBC + DIFF Lab Routine Medication management Expected: 01/24/2024, Expires: 04/24/2024 [facility] Work Phone: Comment on above: Expected: 01/24/2024 , Expires: 04/24/2024 Start: 01-24-2024 Covid-19 Vaccine () Covid-19 Vaccine () [facility] Start: 01-24-2024 End: 04-24-2024 Ferritin [Mass/volume] in Serum or Plasma FERRITIN BLD Lab Routine Iron deficiency anemia, unspecified iron deficiency anemia type Expected: 01/24/2024, Expires: 04/24/2024 [facility] Work Phone: Comment on above: Expected: 01/24/2024 , Expires: 04/24/2024 Start: 01-24-2024 End: 04-24-2024 Iron and Iron binding capacity panel - Serum or Plasma IRON + TIBC Lab Routine Iron deficiency anemia, unspecified iron deficiency anemia type Expected: 01/24/2024, Expires: 04/24/2024 [facility] Work Phone: Comment on above: Expected: 01/24/2024 , Expires: 04/24/2024 Start: 09-25-2023 End: 12-25-2023 Bacteria identified in Urine by Culture URINE CULTURE Microbiology Routine Vaginal discharge Stage 3a chronic kidney disease (HCC) Other general symptoms and signs Expected: 09/25/2023, Expires: 12/25/2023 [facility] Work Phone: Comment on above: Expected: 09/25/2023 , Expires: 12/25/2023 Start: 09-25-2023 End: 12-25-2023 Basic metabolic 2000 panel - Serum or Plasma [facility] Work Phone: Comment on above: Expected: 09/25/2023 , Expires: 12/25/2023 Start: 09-25-2023 End: 12-25-2023 Urinalysis complete panel - Urine URINALYSIS, WITH MICROSCOPIC Lab Routine Vaginal discharge Stage 3a chronic kidney disease (HCC) Expected: 09/25/2023, Expires: 12/25/2023 [facility] Work Phone: Comment on above: Expected: 09/25/2023 , Expires: 12/25/2023 Start: 08-24-2023 SERUM CREATININE SERUM CREATININE [facility] Start: 08-13-2023 ANNUAL PCP TEAM PROPERTY MANAGEMENT ASSISTANT VILMA DISEASE VISIT ANNUAL PCP TEAM CHRONIC DISEASE VISIT [facility] Start: 08-13-2023 BP CONTROLLED (<130/80) BP CONTROLLE D (<130/80) [facility] Start: 08-08-2023 HEMOGLOBIN/HEMATOCRIT HEMOGLOBIN/HEM ATOCRIT [facility] Start: 08-08-2023 SERUM CREATININE SERUM CREATININE Cl [facility] Start: 08-06-2023 Patient discharge [facility] Start: 08-05-2023 [place] [facility] Start: 08-05-2023 [facility] Start: 08-05-2023 Urine culture Urine Culture [facility] Start: 08-03-2023 Removal of urinary catheter [facility] Start: 08-02-2023 End: 10-02-2023 CBC W Auto Differential panel - Blood CBC + DIFF Lab Routine Stage 3a chronic kidney disease (HCC) Low serum vitamin B12 Expected: 08/02/2023, Expires: 10/02/2023 [facility] Work Phone: Comment on above: Expected: 08/02/2023 , Expires: 10/02/2023 Start: 08-02-2023 End: 10-02-2023 Cobalamin (Vitamin B12) [Mass/volume] in Serum or Plasma VITAMIN B12 BLOOD Lab Routine GERD without esophagitis Low serum vitamin B12 Medication management Expected: 08/02/2023, Expires: 10/02/2023 [facility] Work Phone: Comment on above: Expected: 08/02/2023 , Expires: 10/02/2023 Start: 08-02-2023 End: 10-02-2023 Comprehensive metabolic 2000 panel - Serum or Plasma COMP METABOLIC PANEL Lab Routine Essential hypertension Mixed hyperlipidemia Elevated fasting blood sugar Stage 3a chronic kidney disease (HCC) Expected: 08/02/2023, Expires: 10/02/2023 [facility] Work Phone: Comment on above: Expected: 08/02/2023 , Expires: 10/02/2023 Start: 08-02-2023 End: 10-02-2023 Hemoglobin A1c in Blood HGB A1C Lab Routine Elevated fasting blood sugar Expected: 08/02/2023, Expires: 10/02/2023 [facility] Work Phone: Comment on above: Expected: 08/02/2023 , Expires: 10/02/2023 Start: 08-02-2023 End: 10-02-2023 LIPID PANEL, NONFASTING LIPID PANEL, NONFASTING Lab Routine Essential hypertension Mixed hyperlipidemia Expected: 08/02/2023, Expires: 10/02/2023 [facility] Work Phone: Comment on above: Expected: 08/02/2023 , Expires: 10/02/2023 Start: 08-02-2023 End: 10-02-2023 Magnesium [Mass/volume] in Serum or Plasma MAGNESIUM BLD Lab Routine GERD without esophagitis Medication management Expected: 08/02/2023, Expires: 10/02/2023 [facility] Work Phone: Comment on above: Expected: 08/02/2023 , Expires: 10/02/2023 Start: 08-02-2023 End: 10-02-2023 Urinalysis complete panel - Urine URINALYSIS, WITH MICROSCOPIC Lab Routine Essential hypertension Mixed hyperlipidemia Stage 3a chronic kidney disease (HCC) Expected: 08/02/2023, Expires: 10/02/2023 [facility] Work Phone: Comment on above: Expected: 08/02/2023 , Expires: 10/02/2023 Start: 08-01-2023 Following clinical p athway protocol [facility] Start: 08-01-2023 Application of intermittent pneumatic compression device [facility] Start: 08-01-2023 Ambulation without limitation [facility] Start: 08-01-2023 Catheterization of vein [facility] Start: 08-01-2023 Measuring intake and output [facility] Start: 08-01-2023 Notification of physician [facility] Start: 08-01-2023 Referral to occupati onal therapist [facility] Start: 08-01-2023 Referral to service [facility] Start: 08-01-2023 Vital signs measurements [facility] Start: 08-01-2023 [facility] Start: 08-01-2023 Partial resection of colon Col ectomy Mathieu (Not Applicable) [facility] Start: 08-01-2023 Admission procedure [facility] Start: 08-01-2023 Verification routine [facility] Start: 08-01-2023 [facility] Start: 08-01-2023 Patient referral to dietitian [facility] Start: 07-28-2023 Repair complex scalp/arm/leg 2.6-7.5 cm CMPLX RPR S/A/L 2.6-7.5 CM [facility] Start: 07-28-2023 Repair complex scalp/arm/leg ea addl 5 cm/< CMPLX RPR S/A/L ADDL 5 CM/> [facility] Start: 07-24-2023 End: 09-23-2023 Basic metabolic 2000 panel - Serum or Plasma BASIC METABOLIC PNL Lab Routine Medication management Essential hypertension Expected: 07/24/2023, Expires: 09/23/2023 [facility] Work Phone: Comment on above: Expected: 07/24/2023 , Expires: 09/23/2023 Start: 07-19-2023 Covid-19 Vaccine () Covid-19 Vaccine () [facility] Start: 07-19-2023 Influenza vaccination [facility] Start: 06-14-2023 COVID-19 VACCINE (4 - Moderna series) COVID-19 VACCINE (4 - Moderna series) [facility] Start: 05-30-2023 End: 07-30-2023 Basic metabolic 2000 panel - Serum or Plasma BASIC METABOLIC PNL Lab Routine Peripheral edema Expected: 05/30/2023, Expires: 07/30/2023 [facility] Work Phone: Comment on above: Expected: 05/30/2023 , Expires: 07/30/2023 Start: 05-24-2023 End: 07-24-2023 Basic metabolic 2000 panel - Serum or Plasma [facility] Work Phone: Comment on above: Expected: 05/24/2023 , Expires: 07/24/2023 Start: 05-17-2023 Influenza vaccination INFLUENZA (#1) [facility] Comment on above: Postponed from 07/19 (Declined at this time) Start: 05-02-2023 End: 07-02-2023 Comprehensive metabolic 2000 panel - Serum or Plasma [facility] Work Phone: Comment on above: Expected: 05/02/2023 , Expires: 07/02/2023 Start: 05-02-2023 End: 07-02-2023 Natriuretic peptide.B prohormone N-Terminal [Mass/volume] in Serum or Plasma [facility] Work Phone: Comment on above: Expected: 05/02/2023 , Expires: 07/02/2023 Start: 02-11-2023 End: 04-13-2023 Basic metabolic 2000 panel - Serum or Plasma BASIC METABOLIC PNL Lab Routine Stage 3a chronic kidney disease (HCC) Expected: 02/11/2023, Expires: 04/13/2023 [facility] Work Phone: Comment on above: Expected: 02/11/2023 , Expires: 04/13/2023 Start: 02-11-2023 End: 04-13-2023 CBC W Auto Differential panel - Blood CBC + DIFF Lab Routine Stage 3a chronic kidney disease (HCC) Low serum vitamin B12 Anemia, unspecified type Expected: 02/11/2023, Expires: 04/13/2023 [facility] Work Phone: Comment on above: Expected: 02/11/2023 , Expires: 04/13/2023 Start: 02-11-2023 End: 04-13-2023 Cobalamin (Vitamin B12) [Mass/volume] in Serum or Plasma VITAMIN B12 BLOOD Lab Routine Low serum vitamin B12 Expected: 02/11/2023, Expires: 04/13/2023 [facility] Work Phone: Comment on above: Expected: 02/11/2023 , Expires: 04/13/2023 Start: 02-11-2023 End: 04-13-2023 Hemoglobin A1c in Blood HGB A1C Lab Routine Elevated fasting blood sugar Expected: 02/11/2023, Expires: 04/13/2023 [facility] Work Phone: Comment on above: Expected: 02/11/2023 , Expires: 04/13/2023 Start: 02-07-2023 ANNUAL PCP TEAM PROPERTY MANAGEMENT ASSISTANT VILMA DISEASE VISIT ANNUAL PCP TEAM CHRONIC DISEASE VISIT [facility] Start: 02-07-2023 BP CONTROLLED (<130/80) BP CONTROLLE D (<130/80) [facility] Start: 02-07-2023 Urine microalbumin profile DTAP,TDAP ,TD (1 - Tdap) [facility] Comment on above: Postponed from 03/05 (Insurance Coverage) Start: 02-05-2023 HEMOGLOBIN/HEMATOCRIT HEMOGLOBIN/HEM [facility] Start: 02-05-2023 SERUM CREATININE SERUM CREATININE [facility] Start: 01-01-2023 HEMOGLOBIN/HEMATOCRIT HEMOGLOBIN/HEM [facility] Start: 01-01-2023 SERUM CREATININE SERUM CREATININE [facility] Start: 11-18-2022 ADVANCE DIRECTIVE DISCUSSION ADVANCE DIRECTIVE DISCUSSION [facility] Start: 09-05-2022 ANNUAL PCP TEAM PROPERTY MANAGEMENT ASSISTANT VILMA DISEASE VISIT ANNUAL PCP TEAM CHRONIC DISEASE VISIT [facility] Start: 07-27-2022 End: 09-26-2022 CBC W Auto Differential panel - Blood CBC + DIFF Lab Routine Stage 3a chronic kidney disease (HCC) Low serum vitamin B12 Expected: 07/27/2022, Expires: 09/26/2022 [facility] Work Phone: Comment on above: Expected: 07/27/2022 , Expires: 09/26/2022 Start: 07-27-2022 End: 09-26-2022 Comprehensive metabolic 2000 panel - Serum or Plasma COMP METABOLIC PANEL Lab Routine Essential hypertension Mixed hyperlipidemia Stage 3a chronic kidney disease (HCC) Expected: 07/27/2022, Expires: 09/26/2022 [facility] Work Phone: Comment on above: Expected: 07/27/2022 , Expires: 09/26/2022 Start: 07-27-2022 End: 09-26-2022 Hemoglobin A1c/Hemoglobin.total in Blood HGB A1C Lab Routine Elevated fasting blood sugar Expected: 07/27/2022, Expires: 09/26/2022 [facility] Work Phone: Comment on above: Expected: 07/27/2022 , Expires: 09/26/2022 Start: 07-27-2022 End: 09-26-2022 LIPID PANEL, NONFASTING LIPID PANEL, NONFASTING Lab Routine Essential hypertension Mixed hyperlipidemia Expected: 07/27/2022, Expires: 09/26/2022 [facility] Work Phone: Comment on above: Expected: 07/27/2022 , Expires: 09/26/2022 Start: 07-27-2022 End: 09-26-2022 Magnesium [Mass/volume] in Serum or Plasma MAGNESIUM BLD Lab Routine GERD without esophagitis Medication management Expected: 07/27/2022, Expires: 09/26/2022 [facility] Work Phone: Comment on above: Expected: 07/27/2022 , Expires: 09/26/2022 Start: 07-27-2022 End: 09-26-2022 Urinalysis complete panel - Urine URINALYSIS, WITH MICROSCOPIC Lab Routine Essential hypertension Mixed hyperlipidemia Stage 3a chronic kidney disease (HCC) Expected: 07/27/2022, Expires: 09/26/2022 [facility] Work Phone: Comment on above: Expected: 07/27/2022 , Expires: 09/26/2022 Start: 07-27-2022 End: 09-26-2022 VITAMIN B12 BLOOD VITAMIN B12 BLOOD Lab Routine Low serum vitamin B12 Expected: 07/27/2022, Expires: 09/26/2022 [facility] Work Phone: Comment on above: Expected: 07/27/2022 , Expires: 09/26/2022 Start: 07-19-2022 Influenza vaccination INFLUENZA (#1) [facility] Start: 02-05-2022 End: 04-07-2022 CBC W Auto Differential panel - Blood [facility] Work Phone: Comment on above: Expected: 02/05/2022 , Expires: 04/07/2022 Start: 02-05-2022 End: 04-07-2022 Comprehensive metabolic 2000 panel - Serum or Plasma [facility] Work Phone: Comment on above: Expected: 02/05/2022 , Expires: 04/07/2022 Start: 02-05-2022 End: 04-07-2022 Hemoglobin A1c/Hemoglobin.total in Blood [facility] Work Phone: Comment on above: Expected: 02/05/2022 , Expires: 04/07/2022 Start: 02-05-2022 End: 04-07-2022 LIPID PANEL, NONFASTING [facility] Work Phone: Comment on above: Expected: 02/05/2022 , Expires: 04/07/2022 Start: 02-05-2022 End: 04-07-2022 Magnesium [Mass/volume] in Serum or Plasma [facility] Work Phone: Comment on above: Expected: 02/05/2022 , Expires: 04/07/2022 Start: 02-05-2022 End: 04-07-2022 Urinalysis complete panel - Urine [facility] Work Phone: Comment on above: Expected: 02/05/2022 , Expires: 04/07/2022 Start: 02-05-2022 End: 04-07-2022 VITAMIN B12 BLOOD [facility] Work Phone: Comment on above: Expected: 02/05/2022 , Expires: 04/07/2022 Start: 01-16-2022 BP CONTROLLED (<130/80) BP CONTROLLE D (<130/80) [facility] Start: 11-18-2021 ADVANCE DIRECTIVE DISCUSSION ADVANCE DIRECTIVE DISCUSSION [facility] Start: 11-04-2021 Mammography [facility] Start: 11-04-2021 Screening for malign ant neoplasm of breast Mammogram Screening [facility] Start: 07-19-2021 COVID-19 VACCINE (3 - Booster for Moderna series) COVID-19 VACCINE (3 - Booster for Moderna series) [facility] Start: 04-13-2021 COVID-19 VACCINE (3 - Booster for Moderna series) COVID-19 VACCINE (3 - Booster for Moderna series) [facility] Start: 02-19-2021 Colonoscopy COLONOSCOPY [facility] Start: 02-19-2021 COLORECTAL CANCER SCREENING COLORECTAL CANCER SCREENING [facility] Start: 2011 RSV Vaccine (1 - 1-d ose 60+ series) RSV Vaccine (1 - 1-dose 60+ series) [facility] Start: 2001 SHINGRIX VACCINE (1 of 2) MATHEWS GRIX VACCINE (1 of 2) [facility] Start: 1996 COLOGUARD (FIT-DNA) COLOGUARD (FIT-D NA) [facility] Start: [address] COLONOGRAPHY [facility] Start: 1996 FECAL OCCULT BLOOD FECAL OCCULT BLOO D [facility] Start: 1996 Screening for malign ant neoplasm of colon [facility] Start: 1996 SIGMOIDOSCOPY SIGMOIDOSCOPY [facility] Start: 1970 Urine microalbumin profile [facility] Anion gap in Serum o r Plasma [facility] Anion gap in Serum o r Plasma [facility] Anion gap in Serum o r Plasma [facility] End: 02-10-2026 BD DXA TRABECULAR BONE SCORE (TBS) BD DXA TRABECULAR BONE SCORE (TBS) Radiology Routine Asymptomatic menopause 1 Occurrences starting 01/11/2025 until 02/10/2026 [facility] Comment on above: 1 Occurrences starti ng 01/11/2025 until 02/10/2026 Bilirubin measuremen t, urine [facility] BUN/Creatinine ratio [facility] BUN/Creatinine ratio [facility] BUN/Creatinine ratio [facility] Calcium [Mass/volume ] in Serum or Plasma [facility] Calcium [Mass/volume ] in Serum or Plasma [facility] Calcium [Mass/volume ] in Serum or Plasma [facility] Carbon dioxide, tota l [Moles/volume] in Central venous blood [facility] Carbon dioxide, tota l [Moles/volume] in Central venous blood [facility] Carbon dioxide, tota l [Moles/volume] in Central venous blood [facility] End: 10-07-2024 COLONOSCOPY DIAGNOSTIC COLONOSCOPY DIAGNOSTIC Endoscopy Routine Iron deficiency anemia, unspecified iron deficiency anemia type 1 Occurrences starting 10/07/2023 until 10/07/2024 [facility] Work Phone: Comment on above: 1 Occurrences starti ng 10/07/2023 until 10/07/2024 Creatinine [Mass/vol ume] in Serum or Plasma [facility] Creatinine [Mass/vol ume] in Serum or Plasma [facility] Creatinine [Mass/vol ume] in Serum or Plasma [facility] End: 10-30-2025 DBT Breast - bilateral screening SONIA SCREENING W [facility]ER[facility] Radiology Routine Encounter for screening mammogram for breast cancer 1 Occurrences starting 09/30/2024 until 10/30/2025 [facility] Work Phone: Comment on above: 1 Occurrences starti ng 09/30/2024 until 10/30/2025 DBT Breast - bilater al screening SONIA SCREENING W [facility] Radiology Routine Encounter for screening mammogram for breast cancer 02/22/2025 1:36 PM EDT [facility] Work Phone: End: 03-09-2023 Dxa bone density study 1/> sites axial skel DXA-AXIAL SKELETON Radiology Routine Osteopenia, senile Primary ovarian failure 1 Occurrences starting 02/07/2022 until 03/09/2023 [facility] Work Phone: Comment on above: 1 Occurrences starti ng 02/07/2022 until 03/09/2023 End: 02-10-2026 DXA Skeletal system.axial Views for bone density DXA-AXIAL SKELETON Radiology Routine Asymptomatic menopause 1 Occurrences starting 01/11/2025 until 02/10/2026 [facility] Comment on above: 1 Occurrences starti ng 01/11/2025 until 02/10/2026 End: 05-02-2024 ECG COMPLETE ECG COMPLETE ECG Routine Essential hypertension 1 Occurrences starting 05/02/2023 until 05/02/2024 [facility] Work Phone: Comment on above: 1 Occurrences starti ng 05/02/2023 until 05/02/2024 ECG COMPLETE ECG COMPLETE ECG 05/02/2023 2:45 PM EDT [facility] End: 05-02-2024 Echocardiography ECHO Cardiology Routine Lower extremity edema 1 Occurrences starting 05/02/2023 until 05/02/2024 [facility] Work Phone: Comment on above: 1 Occurrences starti ng 05/02/2023 until 05/02/2024 End: 10-07-2024 EGD DIAGNOSTIC EGD DIAGNOSTIC Endoscopy Routine Iron deficiency anemia, unspecified iron deficiency anemia type 1 Occurrences starting 10/07/2023 until 10/07/2024 [facility] Work Phone: Comment on above: 1 Occurrences starti ng 10/07/2023 until 10/07/2024 Erythrocyte mean corpuscular volume determination [facility] Erythrocyte mean corpuscular volume determination [facility] Erythrocyte mean corpuscular volume determination [facility] Glucose [Mass/volume ] in Serum or Plasma [facility] Glucose [Mass/volume ] in Serum or Plasma [facility] Glucose [Mass/volume ] in Serum or Plasma [facility] Hematocrit [Volume Fraction] of Blood [facility] Hematocrit [Volume Fraction] of Blood [facility] Hematocrit [Volume Fraction] of Blood [facility] Hemoglobin [Mass/vol ume] in Blood [facility] Hemoglobin [Mass/vol ume] in Blood [facility] Hemoglobin [Mass/vol ume] in Blood [facility] Hemoglobin [Presence ] in Urine [facility] Leukocytes [#/volume ] in Blood [facility] Leukocytes [#/volume ] in Blood [facility] Leukocytes [#/volume ] in Blood [facility] Magnesium measurement [facility] End: 11-21-2024 SONIA SCREENING SONIA SCREENING Radiology Routine Encounter for screening mammogram for breast cancer 1 Occurrences starting 10/23/2023 until 11/21/2024 [facility] Work Phone: Comment on above: 1 Occurrences starti ng 10/23/2023 until 11/21/2024 Mean corpuscular hemoglobin concentration determination [facility] Mean corpuscular hemoglobin concentration determination [facility] Mean corpuscular hemoglobin concentration determination [facility] Mean corpuscular hemoglobin determination [facility] Mean corpuscular hemoglobin determination [facility] Mean corpuscular hemoglobin determination [facility] Measurement of k[place] es in urine using dipstick [facility] Measurement of renal function [facility] Measurement of renal function [facility] Measurement of renal function [facility] Microscopic urinalysis [facility] Neutrophil count [facility] Neutrophil count [facility] Neutrophil count [facility] Neutrophil percent differential count [facility] Neutrophil percent differential count [facility] Neutrophil percent differential count [facility] Patient Education ED Head Injury (Adult) ED Laceration Scalp Stitches or Carmelina [facility] Work Phone: Patient referral [facility] Work Phone: pH of Urine [facility] Platelets [#/volume] in Blood [facility] Platelets [#/volume] in Blood [facility] Platelets [#/volume] in Blood [facility] Potassium measurement [facility] Potassium measurement [facility] Potassium measurement [facility] Red blood cell count [facility] Red blood cell count [facility] Red blood cell count [facility] Red cell distributio n width determination [facility] Red cell distributio n width determination [facility] Red cell distributio n width determination [facility] Serum chloride measurement [facility] Serum chloride measurement [facility] Serum chloride measurement [facility] Sodium measurement [facility] Sodium measurement [facility] Sodium measurement [facility] Specific gravity of Urine [facility] Urea nitrogen [Mass/volume] in Serum or Plasma [facility] Urea nitrogen [Mass/volume] in Serum or Plasma [facility] Urea nitrogen [Mass/volume] in Serum or Plasma [facility] Urinalysis, blood, qualitative [facility] Urine dipstick for glucose [facility] Urine dipstick for leukocyte esterase [facility] Urine dipstick for nitrite [facility] Urine dipstick for protein [facility] Urine examination [facility] Urine microscopy: epithelial cells [facility] Urine Microscopy: wh ite cells [facility] Urobilinogen [Presen ce] in Urine [facility] End: 05-24-2024 US LEG VEIN DVT [facility] US LEG VEIN DVT [facility] Vascular Lab Routine Peripheral edema Leg swelling 1 Occurrences starting 05/24/2023 until 05/24/2024 [facility] Work Phone: Comment on above: 1 Occurrences starti ng 05/24/2023 until 05/24/2024 End: 09-19-2025 XR Lumbar spine AP and Lateral and oblique XR LUMBAR PARS DEFECT 4V AP/LAT/BOTH OBL Radiology Routine Left leg pain 1 Occurrences starting 08/20/2024 until 09/19/2025 [facility] Work Phone: Comment on above: 1 Occurrences starti ng 08/20/2024 until 09/19/2025 XR Lumbar spine AP a nd Lateral and oblique XR LUMBAR PARS DEFECT 4V AP/LAT/BOTH OBL Radiology Routine Left leg pain 08/20/2024 12:02 PM EDT [facility] End: 09-19-2025 XR Pelvis and Hip - left AP and Lateral frog XR HIP GENERAL 3V PELV/AP/LAT LEFT Radiology Routine Left leg pain 1 Occurrences starting 08/20/2024 until 09/19/2025 [facility] Comment on above: 1 Occurrences starti ng 08/20/2024 until 09/19/2025 XR Pelvis and Hip - left AP and Lateral frog XR HIP GENERAL 3V PELV/AP/LAT LEFT Radiology Routine Left leg pain 08/20/2024 12:02 PM EDT [facility] Immunizations Immunization Date Immunization Notes Care Provider Susana lal 08-20-2024 COVID-19 vaccine, ag e 12+ yr ([place] [employer] [facility]) Edna Umanzor [employer]LLF[employer] HARVESTER.HOME CARE GIVER Work Phone: [facility] 08-20-2024 influenza, high dose seasonal, preservative-free Edna Umanzor [employer]LLF[employer] HARVESTER.HOME CARE GIVER Work Phone: [facility] 08-20-2024 influenza virus vacc ine, unspecified formulation Ez Solitario MD Work Phone: [facility] 06-02-2024 zoster vaccine recombinant Ez Solitario MD Work Phone: [facility] 03-23-2024 tetanus toxoid, redu judith diphtheria toxoid, and acellular pertussis vaccine, adsorbed Ez Solitario MD Work Phone: [facility] 03-23-2024 tetanus toxoid, unspecified formulation Lauren Camacho PA-C Work Phone: [facility] 03-23-2024 zoster vaccine recombinant Ez Solitario MD Work Phone: [facility] 09-25-2023 COVID-19 vaccine, ag e 12+ yr, season ([employer]) Ez Solitario MD Work Phone: [facility] 09-25-2023 influenza (HD-IIV4) vaccine, age 65+ yr, high dose, quadrivalent, PF (FLUZONE HIGH-DOSE) Ez Solitario MD Work Phone: [facility] 09-25-2023 influenza virus vacc ine, unspecified formulation Ez Solitario MD Work Phone: [facility] 02-12-2023 COVID-19 booster vaccine, age 12+ yr, bivalent ([employer]ER[employer]) Ez Solitario MD Work Phone: [facility] 07-20-2021 influenza, high-dose , quadrivalent vaccine (FLUZONE HIGH DOSE QUADRIVALENT) Ez Solitario MD Work Phone: [facility] 07-20-2021 influenza virus vacc ine, unspecified formulation Ez Solitario MD Work Phone: [facility] 02-17-2021 Covid (Moderna) Dr. Ez Solitario Work Phone: [facility] 02-16-2021 COVID-19 vaccine, fu ll dose (MODERNA) Ez Solitario MD Work Phone: [facility] Work Phone: 01-20-2021 Covid (Moderna) Dr. Ez Solitario Work Phone: [facility] 07-16-2020 Influenza High-Dose Quadrivalent Dr. Ez Solitario Work Phone: [facility] 07-16-2020 influenza, high dose seasonal, preservative-free Ez Solitario MD Work Phone: [facility] 09-22-2019 Influenza, high dose seasonal Dr. Ez Solitario MD Work Phone: [facility] 09-22-2019 influenza, high dose seasonal, preservative-free Ez Solitario MD Work Phone: [facility] 09-02-2018 Influenza, high dose seasonal Dr. Ez Solitario MD Work Phone: [facility] 09-02-2018 influenza, high dose seasonal, preservative-free Ez Solitario MD Work Phone: [facility] 06-06-2018 pneumococcal polysaccharide vaccine, 23 valent Ez Solitario MD Work Phone: [facility] 09-11-2017 influenza, high dose seasonal, preservative-free Ez Solitario MD Work Phone: [facility] 09-11-2017 Seasonal trivalent influenza vaccine, adjuvanted, preservative free Dr. Ez Solitario Work Phone: [facility] 06-05-2017 pneumococcal conjuga te vaccine, 13 valent Ez Solitario MD Work Phone: [facility] 08-31-2016 Influenza, high dose seasonal Dr. Ez Solitario MD Work Phone: [facility] 08-31-2016 influenza, high dose seasonal, preservative-free Ez Solitario MD Work Phone: [facility] Work Phone: Payers Date Payer Category Payer Medicaid [id number] 2024 Self-pay [id number] 2024 Unknown [id number] 2016 Medicare MEDICARE MEDICAR E A AND B [id number] 2016-Present [phone] [address] [address] [place] [address] Medicare [id number] 2016 Medicare [id number] 2016 Medicare [id number] 2015 [facility] FEP PPO [id number] 2015 Unknown ANTHEM ANTHEM BC BS FEP PPO [id number] 2015-Present [phone] [address] [place] [address] PPO [id number] 2015 Unknown ANTHEM ANTHEM BC BS FEP PPO [id number] 2015-Present [phone] [address] [place], [place] [id number] PPO [id number] 2012 Unknown [id number] 1950 Unknown [id number] Unknown [id number] Unknown [id number] Unknown [id number] Unknown [id number] Unknown [id number] Unknown [id number] Unknown [id number] Unknown [id number] Unknown [id number] Social History Date Type Detail Facility Start: 02-07-2016 End: 07-07-2025 Tobacco smoking status NHIS Never smoked tobacco [facility] Work Phone: Start: 02-07-2016 End: 08-13-2022 Tobacco use and exposure Smokeless tobacco non-user [facility] Work Phone: Start: 09-05-2021 End: 01-11-2025 Alcohol intake Current drinker of alcohol (finding) [facility] Start: 12-25-2018 History SDOH Alcohol Comment approximately 1-2 beers,wine daily [facility] Start: 1950 Sex Assigned At Not on file [facility] Start: 01-28-2022 End: 08-13-2022 Exposure to SARS-CoV-2 (event) Not sure [facility] Start: 08-13-2022 History SDOH Alcohol Comment approximately 1-2 beers/wine daily [facility] Start: 07-21-2016 End: 08-01-2023 Tobacco smoking status NHIS Unknown if ever smoked [facility] Start: 1950 Sex Assigned At Female W [facility] Start: 05-24-2023 End: 09-25-2023 History of Social function [facility] Start: 05-24-2023 End: 09-25-2023 Tobacco use panel [facility] Start: 02-06-2016 Adult Depression Screening Assessment 0 [facility] Tobacco smoking status No Smoking Status Entered [facility] NEGATED: Highlighted row [facility] Medical Equipment Procedure Code Equipment Code Equipment Origin al Text Equipment Identifier Dates Hemicolectomy RELOAD, SR75 SELECTABLE FDA Start: 08-01-2023 Hemicolectomy VENITA HIGHTOWER FDA Start: 08-01-2023 Hemicolectomy RELOAD, SR75 SELECTABLE FDA Start: 08-01-2023 Hemicolectomy GEO [id number] FDA Start: 08-01-2023 Hemicolectomy RELOAD, SR75 SELECTABLE FDA Start: 08-01-2023 Hemicolectomy VENITA HIGHTOWER FDA Start: 08-01-2023 Goals Date Patient Goal Desired Activity /State Functional Status Date Assessment Result Facility 07-08-2025 Functional status Ambulates [facility] Work Phone: 08-06-2023 Functional status Ambulates;Chair [facility] Work Phone: Mental Status Date Assessment Result Facility 07-08-2025 Cognitive function Voice/Name [facility] Work Phone: 07-07-2025 Cognitive function Level Of Cons ciousness Awake;Alert;Appropriate;Follow s Commands [facility] Work Phone: 08-06-2023 Cognitive function Voice/Name [facility] Work Phone: Clinical Notes 06-05-2017 to 08-31-2025 Note Date & Type Note Facility 08-31-2025 Note HNO ID: [id number] Author: BERLIN URRUTIA LPN Service: ? Author Type: Licensed Nurse Type: Progress Notes Filed: 08/31/2025 14:49 Note Text: Scan on 08/31/2025 2:06 PM by Provider, CATHERINE Manzo: Consultation - Neurology [facility] 08-23-2025 Note HNO ID: [id number] Author: LAUREN CAMACHO PA-C Service: ? Author Type: Physician Sample Taker Operator Type: Progress Notes Filed: 08/23/2025 14:34 Note Text: Chief Complaint Patient presents with: was discharged from [facility] on 08/20/25 and went to [facility] Prashant Sheffield is a 75 year old female who presents here today for Hospital Discharge Follow up.. Patient is here today with her sister, Moo. On 07/07 patient presented to ER due to pain and depressive symptoms. She was then admitted to a [facility] facility and then discharged from there to [facility]. Parkinson's Disease: - Recent hospitalization at [facility] in [place], [place], followed by a 30-day stay at [facility]. - Neurology follow-up scheduled for August 31. - Recent medication discrepancies noted: - Benztropine: Previously taking 0.5 mg BID; currently on 2 mg daily. - Pramipexole: Previously taking 1 mg BID; currently on 1 mg TID. - Citalopram: Previously on 30 mg daily; When she was disharged back to [facility], she is on lexapro 10mg. - Atorvastatin: Switched from simvastatin during hospitalization. - Experiencing "sleep attacks" believed to be a side effect of pramipexole in the past which is why neuro adjusted medications to just BID. - Full body pain, particularly in legs and wrists, described as an ache rather than sharp pain, primarily in the morning. neuro was attempting a med switch to cymbalta to see if would held her pain. but then she had the increase anxiety/depressive symptoms. - Pain management includes Tylenol and ibuprofen PRN. - Sister reports Prashant is "still not herself." Past medical history, appointments, medications, allergies reviewed. [...] disease (HCC) 02/07/[address] Man in [facility] Stage 3a chronic kidney disease (HCC) [...] on File Prior to Visit Medication Sig acetaminophen (TYLENOL) 325 mg cap Take 325 mg by mouth as needed for pain or fever (specify temp.). LORazepam (ATIVAN) 0.5 mg Take 0.5 mg by mouth three times a day as needed. atorvastatin (LIPITOR) 20 mg tablet Take 20 mg by mouth once daily. escitalopram oxalate (LEXAPRO) 10 mg tablet Take 10 mg by mouth once daily. furosemide (LASIX) 20 mg tablet Take 20 mg by mouth once daily. 1 tablet bu mouth in the morning every Mon,Wed, Fri for edema losartan (COZAAR) 50 mg tablet Take 50 mg by mouth once daily. metoprolol tartrate, short acting, (LOPRESSOR) 12.5 mg tab Take 12.5 mg by mouth every 12 (more content not included)... [facility] 08-19-2025 Note HNO ID: [id number] Author: KAREN ORELLANA MA Service: ? Author Type: Ambulance Operations Supervisor Type: Progress Notes Filed: 08/19/2025 08:32 Note Text: POPULATION HEALTH NAVIGATION OUTREACH Action/FYI HCC gap closure added to upcoming appointment notes. Reason for Outreach Care Gap/HCC or Scheduling Wellness Visits Care Gaps due: N/A Patient Contacted: Unable or unnecessary to reach patient: HCC related Patient already scheduled Updated appointment notes Navigation Signature: Karen Orellana MA August 19, 2025 8:31 AM [facility] 08-19-2025 Note Patient Outreach (NE TNAV) PRASHANT SHEFFIELD ([id number]) 1950 F Date Time Provider Department 08/19/25 KAREN ORELLANAV During your visit today, we recorded the following information about you: Karen rOellana MA 08/19/2025 8:32 AM Signed POPULATION HEALTH NAVIGATION OUTREACH Action/I HCC gap closure added to upcoming appointment notes. Reason for Outreach Care Gap/HCC or Scheduling Wellness Visits Care Gaps due: N/A Patient Contacted: Unable or unnecessary to reach patient: HCC related Patient already scheduled Updated appointment notes Navigation Signature: Karen Orellana MA August 19, 2025 8:31 AM Allergies As of Date: 08/19/2025 Noted Allergy Reaction BETADINE (POVIDONE-IODINE) 07/09/2017 2 - Rash BUSPAR (BUSPIRONE) 09/25/2023 14 - Other: See Comments Comments: Caused anxiety and shaking: may of been serotonin syndrome with her neuro meds. CODEINE 02/07/2016 5 - Intolerance Comments: "crazy dreams" does not like to take it Date Reviewed: 03/08/2025 Reviewed by: Sury Harding LPN - Fully Assessed Reason for Visit: Population Health Navigation Outreach [3910] Cmt: [place]/Workbench/ACO Prescriptions as of 08/19/2025 - DULoxetine DR (CYMBALTA) 30 mg capsule Take 1 capsule by mouth once daily. Per Neuro: Dr. Serrato - pramipexole (MIRAPEX) 0.25 mg tablet Take 1 tablet by mouth two times a day. Per Neuro, Dr. Serrato - rotigotine (NEUPRO) 2 mg/24 hour patch Apply 1 patch as directed once daily. Per Neuro: Dr. Serrato - alendronate (FOSAMAX) 70 mg tablet Take 1 tablet by mouth one time a week. Take with a full glass of water, on an empty stomach; do NOT lie down for 30minutes. - simvastatin (ZOCOR) 20 mg tablet Take 1 tablet by mouth daily at bedtime. - valsartan (DIOVAN) 160 mg tablet Take 1 tablet by mouth once daily. - pntxqxa-ihsaplyaj-ukhdfqv D3 (CALCIUM 500+D) 500 mg-5 mcg (200 unit) per tablet Take 1 tablet by mouth once daily. - omeprazole (PRILOSEC) 40 mg capsule Take 1 capsule by mouth once daily. - folic acid 1 mg tablet Take 1 tablet by mouth once daily. - Cholecalciferol, Vitamin D3, 25 mcg (1,000 unit) cap Take 1 capsule by mouth once daily. - ferrous sulfate (SLOW FE) 137 mg (45 mg iron) TbER Take 1 tablet by mouth every other day. - ascorbic acid, vitamin C, (VITAMIN C) 500 mg tablet Take 1 tablet by mouth every other day. - benztropine (COGENTIN) 2 mg tablet Take 0.5 tablets by mouth two times a day. Per Neurology at [facility] - Melatonin 5 mg cap Take 2 capsules by mouth daily at bedtime. - cyanocobalamin (VITAMIN B-12) 1,000 mcg tab Take 1 tablet by mouth once daily. - citalopram (CELEXA) 20 mg tablet Take 1 tablet by mouth daily at bedtime. Take with 10mg dose for total of 30mg daily. Per neurology at [facility] - estradiol (ESTRACE) 0.01 % (0.1 mg/gram) vaginal cream Use 1 g vaginally twice a week. - aspirin, enteric coated (ADULT LOW DOSE ASPIRIN) 81 mg EC tablet Take 1 tablet by mouth once daily. Meds Comments as of 02/27/2019: Cranberry tablets Problem List As Of Date 08/19/2025 Noted Resolved GERD without esophagitis [K21.9] 02/07/2016 Alcohol use [F10.90] 02/07/2016 Parkinson's disease (HCC) [G20.A1] 02/07/2016 Anxiety [...] pain without sciatica [M*09/14/2024 Encounter Status:Closed by KAREN ORELLANA on 08/19/25 [facility] 07-09-2025 Note [facility] Medical Records Department [address] [place] [address] Discharge Summary 07/09/25 0712 MR#: [id number] Acct: [id number] Name: PRASHANT SHEFFIELD Rep #: [id number] : 1950 75 From: Davin Kirkland MD PCP: Dr. Ez Solitario MD Status:DIS ROXIE [id number] Prov[facility] Date of Admission: 07/07/25 Date of Discharge: 07/08/25 Primary Care Physician: Dr. Ez Solitario MD Reason For Visit: GENERALIZED WEAKNESS Diagnosis Discharge Diagnosis (1) Generalized muscle weakness: Status: Acute Code(s): M62.81 - Muscle weakness (generalized) Plan Patient is a 75 F with past medical history significant for Parkinson's disease resident [facility] who was brought to the emergency department with generalized weakness. 1. Physical debility ??? Patient has underlying Parkinson disease contributing to her symptoms. Patient has been admitted to a regular nursing floor requested for PT/OT eval and social science research assistant to assist with discharge planning. With patient [...] bisacodyl 10 mg rectal suppository 10 mg MD .PRN X 1 PRN Constipation #1 ea [...] Non-Af 63, BUN/Cre (more content not included)... [facility] 07-08-2025 Progress note Note Date/Time July 08, 2025 9:33am [facility] Medical Records Department [address] [place] [address] Progress Note - Hospitalist 07/08/25810 MR#: [id number] Acct: [id number] Name: PRASHANT SHEFFIELD Rep #:[id number] : 1950 75 From: Davin Kirkland MD PCP: Dr. Ez Solitario MD Status:ADM ROXIE Location: [place] [address] Reason for Visit Chief Complaint: Generalized weakness [...] Clarity Clear, Urine pH 6.0, Ur Specific [place] 1.010, Urine Protein 30 H, Urine Glucose [...] % (Auto) 66.1, Lymph % (Auto) 22.8, Hale % (Auto) 8.3, Eos % (Auto) 1.5, [...] % (Auto) 59.2, Lymph % (Auto) 28.3, Hale % (Auto) 9.1, Eos % (Auto) 2.3, [...] Chest CT correlation is recommended. [facility] Rhythm Strip Rhythm Strip: Sinus Rhythm [...] medical history significant for Parkinson's disease resident [facility] who was brought to the emergency department with generalized weakness. 1. Physical debility ? Patient has underlying Parkinson disease contributing to her symptoms. Patient has been admitted to a regular nursing floor requested for PT/OT eval and social science research assistant to assist with discharge planning. With patient [...] 38 Minutes Charges/Coding Visit Charges Inpatient E&M: 83690 Subs Hosp L2 07/08/25 0933 <Electronically signed by Davin Kirkland MD> Cosigner Signature (if applicable): CC: ~ Signed [facility] Work Phone: 1(410) 446-983308-21-2025 Progress note [facility] Medical Records Department [address] [place] [address] Progress Note - Hospitalist 07/08/25 0811 MR#: [id number] Acct: [id number] Name: PRASHANT SHEFFIELD Rep #:[id number] 8 : 1950 75 From: Davin Kirkland MD PCP: Dr. Ez Solitario MD Status:ADM ROXIE Location: DC3 [id number] Reason for Visit Chief Complaint: Generalized weakness [...] Clarity Clear, Urine pH 6.0, Ur Specific [place] 1.010, Urine Protein 30 H, Urine Glucose [...] Neut% (Auto) 66.1, Lymph % (Auto) 22.8, Hale % (Auto) 8.3, Eos % (Auto) 1.5, [...] Neut% (Auto) 59.2, Lymph % (Auto) 28.3, Hale % (Auto) 9.1, Eos % (Auto) 2.3, [...] Chest CT correlation is recommended. Reading Location: [facility] Rhythm Strip Rhythm Strip: Sinus Rhythm Rate: [...] medical history significant for Parkinson's disease resident [facility] who was brought to the emergency department with generalized weakness. 1. Physical debility ? Patient has underlying Parkinson disease contributing to her symptoms. Patient has been admitted to a regular nursing floor requested for PT/OT eval and social science research assistant to assist with discharge planning. With patient [...] 38 Minutes Charges/Coding Visit Charges Inpatient E&M: 38851 Subs Hosp L2 07/08/25 0933 Cosigner Signature (if applicable): CC: ~ Signed [facility]08-20-2025 Discharge summary Author Shaji Rosales [facility] Note Date/Time July 07, 2025 3: 46pm [facility] Medical Records Department [address] [place] [address] Emergency Department Summary 07/07/25 MR#: [id number] Acct: [id number] Name: PRASHANT SHEFFIELD Rep #:[id number] 1 : 1950 75 From: Shaji Rosales MD PCP: Dr. Ez Solitario MD Status:ADM ROXIE Location: [place] [address] HPI History of Present Illness Chief Complaint: [...] Prior similar symptoms: No Recent Illness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 She really cannot lift either leg [...] % (Auto) 66.1 Lymph % (Auto) 22.8 Hale % (Auto) 8.3 Eos % (Auto) 1.5 [...] Clarity Clear Urine pH 6.0 Ur Specific [place] 1.010 Urine Protein 30 H Urine Glucose [...] Chest CT correlation is recommended. Reading Location: [facility] Chest x-ray, 2 views, AP and [...] rhythm rate 80 no acute signs of SD nor ischemia. Discharge Plan Triage Chief Complaint: [...] 0RF bisacodyl 10 mg Suppository 10 mg MD .PRN X 1 PRN (Reason: Constipation) Qty: [...] MD [Primary Care Provider] - Print Language: Haitian Disposition Disposition: Acute Care Hospital [facility] What to do if you have Problems For any increased pain, shortness of breath, bleeding, nausea or vomiting, chestpain, or any unexpected problems, contact your Primary Care Provider. Call [facility] ([phone]) or report to the closest Emergency Room. Call 911 if necessary. 07/07/25 7346 <Electronically signed by Shaji Rosales MD> Cosigner Signature (if applicable): CC: Dr. Ez Solitario MD ~ Signed [facility] Work Phone: 1(817) 471-310608-20-2025 Discharge summary [facility] Medical Records Department [address] [place] [address] Emergency Department Summary 07/07/25 MR#: [id number] Acct: [id number] Name: PRASHANT SHEFFIELD Rep #:[id number] 1 : 1950 75 From: Shaji Rosales MD PCP: Dr. 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 She really cannot lift either leg [...] % (Auto) 66.1 Lymph % (Auto) 22.8 Hale % (Auto) 8.3 Eos % (Auto) 1.5 [...] Clarity Clear Urine pH 6.0 Ur Specific [place] 1.010 Urine Protein 30 H Urine Glucose [...] Chest CT correlation is recommended. Reading Location: [facility] Chest x-ray, 2 views, AP and [...] rhythm rate 80 no acute signs of SD nor ischemia. Discharge Plan Triage Chief Complaint: [...] 0RF bisacodyl 10 mg Suppository 10 mg MD .PRN X 1 PRN (Reason: Constipation) Qty: [...] MD [Primary Care Provider] - Print Language: Haitian Disposition Disposition: Acute Care Hospital [facility] What to do if you have Problems For any increased pain, shortness of breath, bleeding, nausea or vomiting, chestpain, or any unexpected problems, contact your Primary Care Provider. Call [facility] ([phone]) or report tothe closest Emergency Room. Call 911 if necessary. 07/07/25 8284 Cosigner Signature (if applicable): CC: Dr. Ez Solitario MD ~ Signed [facility]08-20-2025 History and physical note Author Davin Kirkland [facility] Note Date/Time July 07, 2025 12 :23pm [facility] Medical Records Department [address] [place] [address] H&P Exam - Hospitalist 07/07/25 1158 MR#: [id number] Acct: [id number] Name: PRASHANT SHEFFIELD Rep #:[id number] 7 : 1950 75 From: Davin Kirkland MD PCP: Dr. Ez Solitario MD Status:ADM ROXIE Location: MS3 [id number] HPI - General General Date of Admission: 07/07/25 Date of Service: 07/07/25 Chief Complaint: Generalized weakness HPI Narrative PRASHANT SHEFFIELD, is a 75 F with past medical history significant for Parkinson's disease resident [facility] who was brought to the emergency department with generalized weakness. Per patient she recently had medication adjustment mainly for anxiety since then she has developed progressive generalized weakness. Patient also complains of muscle aches and difficulty with both handgrips. Workup in the ED came back unremarkable. Patient admittedto regular nursing floor for subsequent eval with consultation placed to PT/OT/SW [facility] Medical History Dysphagia History of 1 Parkinson [...] bisacodyl 10 mg rectal suppository 10 mg MD .PRN X 1 P RN Constipation 08/20/23 [...] Father , at 51 YOA due to SD CAD (coronary artery disease) Mother , she [...] Clarity Clear, Urine pH 6.0, Ur Specific [place] 1.010, Urine Protein 30 H, Urine Glucose [...] % (Auto) 66.1, Lymph % (Auto) 22.8, Hale % (Auto) 8.3, Eos % (Auto) 1.5, [...] medical history significant for Parkinson's disease resident [facility] who was brought to the emergency department [...] nursing floor requested for PT/OT eval and social science research assistant to assist with discharge planning. With patient [...] Multi Select Codes Visit Charges Visit Charges: 22394 Init Hosp L2 Hospitalists' Procedures Procedures: 17914 Advncd Care Plan 30 Min 07/07/25 1223 <Electronically signed by Davin Kirkland MD> Cosigner Signature (if applicable): CC: Dr. Davin Kirkland MD; Dr. Ez Solitario MD~ Signed [facility] Work Phone: 1(492) 479-134808-20-2025 NoteHNO ID: [id number] Author: LESLYE MILLER MA Service: ? Author Type: Ambulance Operations Supervisor Type: Progress Notes Filed: 07/09/2025 08:29 Note Text: Scan on 07/07/2025 4:07 PM by Jovany Shepard PA-C: [facility] Scan on 07/07/2025 12:30 PM by Jovany Shepard PA-C: Hospitalist Consultation [facility] Scan on 07/09/2025 7:20 AM by Jovany Shepard PA-C: [facility] Discharge Summary [facility]08-20-2025 History of Present illness Narrative* Leslye Miller MA - 07/07/2025 2:05 PM EDT Scan on 07/07/2025 12:30 PM by Provider, External, PA-C: Hospitalist Consultation [facility] Evaluation note* Diagnosis Onset Date Resolution Status Admit Date Generalized muscle weakness acute July 07, 2025 11:49am History of Parkinson disease acute July 07, 2025 11:49am Unable to walk acute June 11:49am [facility] Work Phone: 1(256) 558-826408-20-2025 History and physical note [facility] Medical Records Department [address] [place] [address] H&P Exam - Hospitalist 07/07/25 1158 MR#: [id number] Acct: [id number] Name: PRASHANT SHEFFIELD Rep #:[id number] : 1950 75 From: Davin Kirkland MD PCP: Dr. Ez Solitario MD Status:ADM ROXIE Location: [place] [address] HPI - General General Date of Admission: 07/07/25 Date of Service: 07/07/25 Chief Complaint: Generalized weakness HPI Narrative PRASHANT SHEFFIELD, is a 75 F with past medical history significant for Parkinson's disease resident [facility] who was brought to the emergency department with generalized weakness. Per patient she recently had medication adjustment mainly for anxiety since then she has developed progressive generalized weakness. Patient also complains of muscle aches and difficulty with both handgrips. Workup in the ED came back unremarkable. Patient admittedto regular nursing floor for subsequent evalwith consultation placed to PT/OT/SW [facility] Medical History Dysphagia History of 1 Parkinson [...] bisacodyl 10 mg rectal suppository 10 mg MD .PRN X 1 P RN Constipation 08/20/23 [...] Father , at 51 YOA due to SD CAD (coronary artery disease) Mother , she [...] Clarity Clear, Urine pH 6.0, Ur Specific [place] 1.010, Urine Protein 30 H, Urine Glucose [...] Neut% (Auto) 66.1, Lymph % (Auto) 22.8, Hale % (Auto) 8.3, Eos % (Auto) 1.5, [...] Chest CT correlation is recommended. Reading Location: [place] Assessment & Plan Assessment/Plan (1) Generalized muscle weakness: PLAN: Plan PRASHANT SHEFFIELD, is a 75 F with past medical history significant for Parkinson's disease resident [facility] who was brought to the emergency department [...] nursing floor requested for PT/OT eval and social science research assistant to assist with discharge planning. With patient [...] Multi Select Codes Visit Charges Visit Charges: 40325 Init Hosp L2 Hospitalists' Procedures Procedures: 55430 Advncd Care Plan 30 Min 07/07/25 1223 Cosigner Signature (if applicable): CC: Dr. Davin Kirkland MD; Dr. Ez Solitario MD~ Signed [facility]08-20-2025 Radiology Diagnostic study note [facility] Imaging Services [address] [place], [place] [id number] Chest PA and Lateral MR#: [id number] Acct: [id number] Name: PRASHANT SHEFFIELD Rep #: [id number] 2 : 1950 F 75 From: Consuelo Gray MD PCP: Dr. Ez Solitario MD Status: REG ER Study:Chest PA and Lateral Date of Exam: 07/07/25 Exam# [id number] Ordering Dr: Dinorah Rosales MD PROCEDURE: CHEST [...] Chest CT correlation is recommended. Reading Location: [place] CC: Dr. Shaji Rosales MD; Dr. Ez Solitario MD ~ Wholesale Manager: Signed [facility]08-14-2025 NoteHNO ID: [id number] Author: LESLYE MILLER MA Service: ? Author Type: Ambulance Operations Supervisor Type: Progress Notes Filed: 07/01/2025 11:06 Note Text: Scan on 07/01/2025 8:32 AM by Jovany Shepard PA-C: Consultation - Neurology [facility]08-14-2025 History of Present illness Narrative* Leslye Miller MA - 07/01/2025 11:05 AM EDT Scan on 07/01/2025 8:32 AM by Jovany Shepard PA-C: Consultation - Neurology documented in [facility] encounterOur [facility]06-[facility]-2025 NoteHNO ID: [id number] Author: PATTI TOMAS MA Service: ? Author Type: Ambulance Operations Supervisor Type: Progress Notes Filed: 05/05/2025 15:47 Note Text: Scan on 05/04/2025 10:48 AM by ProviderJovany PA-C: Consultation - Neurology Patti Tomas [facility]06-18-2025 History of Present illness Narrative* Patti Tomas MA - 05/05/2025 3:47 PM EDT Scan on 05/04/2025 10:48 AM by Jovany Shepard PA-C: Consultation - Neurology Patti Tomas MA documented in this encounterOur [facility]04-30-2025 NoteHNO ID: [id number] Author: PATTI TOMAS MA Service: ? Author Type: Ambulance Operations Supervisor Type: Progress Notes Filed: 03/17/2025 11:15 Note Text: Scan on 03/10/2025 11:44 AM by Jovany Shepard PA-C: Consultation - PT/OT/Speech [facility]atti Tomas [facility]04-30-2025 History of Present illness Narrative* Patti Tomas MA - 03/17/2025 11:15 AM EDT Scan on 03/10/2025 11:44 AM by Jovany Shepard PA-C: Consultation - PT/OT/Speech Patti Tomas MA documented in this encounterOur [facility]04-21-2025 NoteHNO ID: [id number] Author: MARY ORTIZ APRN.CNP Service: ? 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) 07/08/2024 Dry mouth 03/26/2016 Elevated hemoglobin A1c [...] and with stage 3a chronic kidney disease (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 Mixed hyperlipidemia 02/07/2016 Mobility impaired 07/25/2023 Osteopenia, senile 12/15/2019 DXA: 11/2019 Parkinson's disease (HCC) 02/07/[address] Man in [facility] Stage 3a chronic kidney disease (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 uzyoawh-vctiiwngb-xubkclk D3 (CALCIUM 500+D) 500 mg-5 mcg (200 [...] two times a day. Per Neurology at [facility] Melatonin 5 mg cap Take 2 capsules by mouth daily at bedtime. cyanocobalamin (VITAMIN B-12) 1,000 mcg tab Take 1 tablet by mouth once daily. citalopram hydrobromide (CELEXA) 10 mg tablet Take 1 tablet by mouth once daily. Take with 20 mg dose for total of 30mg daily, getting from Neurology at [facility] citalopram (CELEXA) 20 mg tablet Take 1 tablet by mouth daily at bedtime. Take with 10mg dose for total of 30mg daily. Per neurology at [facility] estradiol (ESTRACE) 0.01 % (0.1 mg/gram) vaginal [...] excessive warmth surr (more content not included)... [facility]04-21-2025 History of Present illness Narrative* Podlogar, GENIE Hernandez.HOME CARE GIVER - 03/08/2025 2:03 PM EDT 03/08/2025 Patient [...] disease (HCC) 02/07/[address] Man in [facility] Stage 3a chronic kidney disease (HCC) [...] Take 1 tablet by mouth once daily. ushznko-pcgxcjlno-yalabsi D3 (CALCIUM 500+D) 500 mg-5 mcg (200 [...] two times a day. Per Neurology at [facility] Melatonin 5 mg cap Take 2 capsules by mouth daily at bedtime. cyanocobalamin (VITAMIN B-12) 1,000 mcg tab Take 1 tablet by mouth once daily. citalopram hydrobromide (CELEXA) 10 mg tablet Take 1 tablet by mouth once daily. Take with 20 mg dose for total of 30mg daily, getting from Neurology at [facility] citalopram (CELEXA) 20 mg tablet Take 1 tablet by mouth daily at bedtime. Take with 10mg dose for total of 30mg daily. Per neurology at [facility] estradiol (ESTRACE) 0.01 % (0.1 mg/gram) vaginal [...] to ER with red flag symptoms Mary Ortiz APRN.CNP Prescription instructions reviewed with patient as applicable. [...] Level: 3 - Low documented in this encounterOur [facility]04-11-2025 Telephone encounter Note * Telephone Encounter - Gardenia Goss LPN - 02/26/2025 9:03 AM EDT Patient returned call and went over results, notes from Edna Umanzor SIMULATION TECH with understanding. [facility]04-11-2025 Miscellaneous Notes* Telephone Encounter - Gardenia Goss LPN - 02/26/2025 9:03 AM EDT Patient returned call and went over results, notes from Edna Umanzor SIMULATION TECH with understanding. * Telephone Encounter - Allie Chung MA - 02/26/2025 9:00 AM EDT Left message for patient to return call to office Allie Chung MA * Telephone Encounter - Edna Umanzor APRN.CNP - 02/26/2025 8:54 AM EDT Please let patient know her mammogram is negative. Patient should continue with annual screenings. documented in this encounterOur Lady Of Mercy Hospital04-11-2025 Telephone encounter Note * Telephone Encounter - Allie Chung MA - 02/26/2025 9:00 AM EDT Left message for patient to return call to office Allie Chung MA [facility]04-11-2025 Telephone encounter Note* Telephone Encounter - Edna Umanzor APRN.CNP - 02/26/2025 8:54 AM EDT Please let patient know her mammogram is negative. Patient should continue with annual screenings. [facility]04-08-2025 Telephone encounter Note* Telephone Encounter - Louise Pemberton RN - 02/23/2025 1:28 PM EDT Patient notified of results and provider's instructions. Patient verbalizes understanding. Louise Pemberton RN [facility]04-08-2025 Miscellaneous Notes* Telephone Encounter - Louise Pemberton [...] and vit d supplementation. documented in this encounterOur Lady Of Mercy Hospital04-08-2025 Telephone encounter Note * Telephone Encounter - Allie Chung MA - 02/23/2025 1:13 PM EDT Left message for patient to return call to office Allie Chung MA [facility]04-08-2025 Telephone encounter Note* Telephone Encounter - Edna Umanzor APRN.CNP - 02/23/2025 10:17 AM EDT Please let patient know her DXA scan shows osteopenia. Continue calcium and vit d supplementation. [facility]04-07-2025 History of Present illness Narrative* Janie Tabor [...] PATIENT PRESENTS WITH AN IMPLANTABLE OR ATTACHED SURVEY INTERVIEWER: No RADIOLOGY DEPARTMENT: Mammography PERIPHERAL IV DATA: Not applicable SIGNED BY: Harsha Colbert February 22, 2025 12:53 PM documented in this encounterOur Lady Of Mercy Hospital04-07-2025 NoteHNO ID: [id number] Author: JANIE TABOR Mammo Tech Service: ? Author Type: Wellness Specialist Type: Progress Notes Filed: 02/22/2025 12:53 Note [...] PATIENT PRESENTS WITH AN IMPLANTABLE OR ATTACHED SURVEY INTERVIEWER: No RADIOLOGY DEPARTMENT: Mammography PERIPHERAL IV DATA: Not applicable SIGNED BY: Harsha Colbert February 22, 2025 12:53 [facility]04-07-2025 History of Present illness Narrative* Mulu Ward [...] PATIENT PRESENTS WITH AN IMPLANTABLE OR ATTACHED SURVEY INTERVIEWER: No RADIOLOGY DEPARTMENT: Bone Density PERIPHERAL IV DATA: Not applicable SIGNED BY: RT Manny(R) February 22, 2025 12:32 PM documented in this encounterOur Lady Of Mercy Hospital04-07-2025 NoteHNO ID: [id number] Author: MULU WARD RT(R) Service: ? Author [...] PATIENT PRESENTS WITH AN IMPLANTABLE OR ATTACHED SURVEY INTERVIEWER: No RADIOLOGY DEPARTMENT: Bone Density PERIPHERAL IV DATA: Not applicable SIGNED BY: RT Manny(R) February 22, 2025 12:32 [facility]* Addendum Note - Ez Solitario MD - 02/04/2025 8:18 AM EDTAddended by: EZ SOLITARIO on: 02/04/2025 08:18 AM Modules accepted: Orders [facility]03-20-2025 Miscellaneous Notes* Addendum Note - Ez Solitario MD - 02/04/2025 8:18 AM EDTAddended by: EZ SOLITARIO on: 02/04/2025 08:18 AM Modules accepted: Orders documented in this encounterOur Lady Of Mercy Hospital03-20-2025 NoteHNO ID: [id number] Author: BERLIN URRUTIA LPN Service: ? Author Type: LICENSED NURSE Type: Progress Notes Filed: 02/04/2025 08:07 Note Text: Scan on 02/03/2025 2:10 PM by ProviderJovany PA-C: Consultation - Neurology [facility]03-20-2025 History of Present illness Narrative* Berlin Urrutia LPN - 02/04/2025 8:07 AM EDT Scan on 02/03/2025 2:10 PM by ProviderJovany PA-C: Consultation - Neurology documented in this encounterOur Lady Of Mercy Hospital02-26-2025 Telephone encounter Note * Telephone Encounter - Louise Pemberton RN - 01/13/2025 10:36 AM EST Patient's sister notified of results and provider's instructions. Patient's sister verbalizes understanding. Louise Pemberton RN [facility]02-26-2025 Miscellaneous Notes* Telephone Encounter - Louise Pemberton [...] atb. Lauren Camacho PA-C documented in this encounterOur Lady Of Mercy Hospital02-26-2025 Telephone encounter Note * Telephone Encounter - Berlin Urrutia LPN - 01/13/2025 10:26 AM EST Left message for pt/pt's sister Moo to contact office for results and instructions. Berlin Urrutia LPN [facility]02-26-2025 Telephone encounter Note* Telephone Encounter - Lauren Camacho PA-C - 01/13/2025 10:01 AM EST Urine confirms infection. Will send in atb. Lauren Camacho PA-C [facility]02-24-2025 Instructions* Patient Instructions* Lauren Camacho PA-C - [...] review all the medicines you take, even ykan-xey-aidhrdw medicines. As you get older, the way [...] your usual activities immediately. documented in this encounterOur Lady Of Mercy Hospital02-24-2025 NoteHNO ID: [id number] Author: LAUREN CAMACHO PA-C Service: ? Author Type: Physician Sample Taker Operator Type: Progress Notes Filed: 01/21/2025 08:26 Note [...] Planning on going to assisted living at [facility]. Past medical history, appointments, medications, allergies reviewed. [...] disease (HCC) 02/07/[address] Man in [facility] Stage 3a chronic kidney disease (HCC) [...] syndrome with her neuro (more content not included)...[facility]02-24-2025 History of Present illness Narrative* Lauren Camacho [...] Planning on going to assisted living at [facility]. Past medical history, appointments, medications, allergies reviewed. Previous Medical History PAST MEDICAL HISTORY Diagnosis Date Alcohol use 02/07/2016 1-2 drinks a day. 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) 07/08/2024 Dry mouth 03/26/2016 Elevated hemoglobin A1c [...] disease (HCC) 02/07/[address] Man in [facility] Stage 3a chronic kidney disease (HCC) [...] [facility] Melatonin 5 mg cap Take 2 capsules by mouth daily at bedtime. cyanocobalamin (VITAMIN B-12) 1,000 mcg tab Take 1 tablet by mouth once daily. citalopram hydrobromide (CELEXA) 10 mg tablet Take 1 tablet by mouth once daily. Take with 20 mg dose for total of 30mg daily, getting from Neurology at [facility] citalopram (CELEXA) 20 mg tablet Take 1 tablet by mouth daily at bedtime. Take with 10mg dose for total of 30mg daily. Per neurology at [facility] estradiol (ESTRACE) 0.01 % (0.1 mg/gram) vaginal [...] Abs Lymph 1.00 - 4.00 k/uL 2.25 Hale% % 8.4 Abs Hale <0.87 k/uL 0.57 Eosin% % 4.0 Abs Eosin <0.46 k/uL 0.27 Baso% % 0.7 Abs Baso <0.11 k/uL 0.05 Immature Gran % % 0.3 IMMATURE GRANS (ABS) <0.10 k/uL <0.03 NRBC /100 WBC 0.0 Absolute nRBC <0.01 k/uL <0.01 DTYPE Auto Color Yellow Yellow Clarity Clear Clear Glucose, Urine Negative Negative Bilirubin, Urine Negative Negative Ketones, Urine Negative Negative Specific [place], Ur 1.005 - 1.030 1.017 Hemoglobin/Blood,Ur Negative [...] which included preparing to see the patient, pygu-ro-eolz patient care, completing clinical documentation, obtaining and/or reviewing separately obtained history, performing a medically appropriate examination, counseling and educating the pat ient/family/caregiver, ordering medications, tests, or procedures, and communicating results to thepatient/family/caregiver. documented in this encounterOur Lady Of Mercy Hospital01-23-2025 Telephone encounter Note * Telephone Encounter - [...] Urrutia LPN December 10, 2024 9:46 AM [facility]01-23-2025 Miscellaneous Notes* Telephone Encounter - Berlin Urrutia [...] 10, 2024 9:08 AM documented in this encounterOur Lady Of Mercy Hospital01-23-2025 Telephone encounter Note * Telephone Encounter - [...] Maryana Jacob December 10, 2024 9:08 AM [facility]01-07-2025 NoteHNO ID: [id number] Author: BERLIN URRUTIA LPN Service: ? Author Type: LICENSED NURSE Type: Progress Notes Filed: 11/24/2024 13:44 Note Text: Scan on 11/24/2024 10:36 AM by ProviderJovany PA-C: Consultation - PT/OT/SpeechPrem[facility]01-07-2025 History of Present illness Narrative* Berlin Urrutia LPN - 11/24/2024 1:44 PM EST Scan on 11/24/2024 10:36 AM by Jovany Shepard PA-C: Consultation - PT/OT/Speech documented in this encounterOur Lady Of Mercy Hospital12-10-2024 Note* Addendum Note - Ez Solitario MD - 10/27/2024 7:56 PM ESTAddended by: EZ SOLITARIO on: 10/27/2024 07:56 PM Modules accepted: Orders [facility]12-10-2024 Miscellaneous Notes* Addendum Note - Ez Solitario MD - 10/27/2024 7:56 PM ESTAddended by: EZ SOLITARIO on: 10/27/2024 07:56 PM Modules accepted: Orders documented in this encounterOur Lady Of Mercy Hospital12-10-2024 NoteHNO ID: [id number] Author: BERLIN URRUTIA LPN Service: ? Author Type: LICENSED NURSE Type: Progress Notes Filed: 10/27/2024 14:46 Note Text: Scan on 10/27/2024 2:32 PM by ProviderJovany PANuzhatC: Consultation - [facility]rologyPrem[facility]12-10-2024 History of Present illness Narrative* Berlin Urrutia LPN - 10/27/2024 2:45 PM EST Scan on 10/27/2024 2:32 PM by ProviderJovany PA-C: Consultation - Neurology documented in this encounterOur Lady Of Mercy Hospital11-27-2024 NoteHNO ID: [id number] Author: MEÑO PHILLIP PT Service: ? Author Type: Physical Therapist Type: Progress Notes Filed: 10/14/2024 13:19 Note Text: 10/14/2024 [facility] PHYSICAL THERAPY DISCONTINUANCE [...] or scheduled additional follow-up appointments. Meño Phillip, [facility]11-13-2024 NotePatient Outreach (INTMMN) NETTIEPRASHANT L ([id number]) 1950 F Date Time Provider Department 09/30/24 EZ SOLITARIO INTPATI During your visit today, we recorded the [...] for screening mammogram for breast cancer [Z12.31] Order(s):[facility] [[id number]] Order #: [id number] FUTURE Prescriptions as of 10/05/2024 - folic [...] two times a day. Per Neurology at [facility] - Melatonin 5 mg cap Take 2 [...] of 30mg daily, getting from Neurology at [facility] - citalopram (CELEXA) 20 mg tablet Take 1 tablet by mouth daily at bedtime. Take with 10mg dose for total of 30mg daily. Per neurology at [facility] - estradiol (ESTRACE) 0.01 % (0.1 mg/gram) [...] pain without sciatica [M*09/14/2024 Encounter Status:Closed by AXEL, PRODUSER on 10/05/24[facility] 09-[facility] Telephone encounter Note* Telephone Encounter - Ez Solitario MD - 09/15/2024 4:15 PM EDT The following approved medication requests have been transmitted electronically. Requested Prescriptions Signed Prescriptions Disp Refills folic acid 1 mg tablet 90 tablet 3 Sig: Take 1 tablet by mouth once daily. Authorizing Provider: EZ SOLITARIO MD [facility]10-29-2024 Miscellaneous Notes* Telephone Encounter - Ez Solitario [...] Thank you. Sonia Lucero. documented in this encounterOur Lady Of Mercy Hospital10-29-2024 Telephone encounter Note * Telephone Encounter - [...] 01/11/2025 Please advise. Thank you. Sonia Lucero. [facility] Work Phone: [phone] 613-690810-28-2024 History of Present illness Narrative* Meño Phillip, PT - 09/14/2024 1:00 PM EDT Program_ID:[id number] Access Code: [email or web address] URL: [email or web address] Date: 09-14-2024 Prepared By: Meño Phillip Program [...] increase T-score by a minimum 5 points. [place] in home exercise program. Patient will decrease [...] Planned: 8 Planned Treatment Interventions: Therapeutic exercise (97506), Neuromuscular re- education (02898), Manual therapy (53383), Therapeutic activities (65046), Self- assisted management (95380), Gait Training (61982), Body Mechanics Training, Patient/Family/Caregiver Education PLAN FOR [...] disease (HCC) 02/07/[address] Man in [facility] Stage 3a chronic kidney disease (HCC) [...] States/Identifies TREATMENT: PT Treatment Interventions: Therapeutic Exercise, Self-[facility] Management Evaluation Therapeutic Exercise: 1: L SKC: [...] therapeutic exercises was facilitated with verbal cuing. Self-[facility] Management: 1: *Discussed differentials; Education about lumbar [...] 1315 Meño Phillip PT documented in this encounterOur Lady Of Mercy Hospital10-28-2024 NoteHNO ID: [id number] Author: MEÑO PHILLIP PT Service: ? Author [...] increase T-score by a minimum 5 points. [place] in home exercise program. Patient will decrease [...] Planned: 8 Planned Treatment Interventions: Therapeutic exercise (49174), Neuromuscular re-education (58975), Manual therapy (59224), Therapeutic activities (15359), Self-assisted management (63878), Gait Training (53050), Body Mechanics Training, Patient/Family/Caregiver Education PLAN FOR [...] Fall Jul 2023. Was on FWW till of 2023. Patient Goals: Alleviate Pain. Functional Limitations: [...] 07/2023 Dementia in ot (more content not included)...[facility] 08-25-2024 Telephone encounter Note* Telephone Encounter - Deirdre Oliva RN - 08/25/2024 4:55 PM EDT Pt returned call and given provider's message below with verbalized understanding. Patient agreeable and will call back to schedule PT. [facility]10-08-2024 Miscellaneous Notes* Telephone Encounter - Deirdre Oliva [...] space. Iwould recommend PT documented in this encounterOur Lady Of Mercy Hospital10-08-2024 Telephone encounter Note * Telephone Encounter - Meera Yun MA - 08/25/2024 4:17 PM EDT Message left for pt to call back for results. Meera Yun MA [facility]10-08-2024 Telephone encounter Note* Telephone Encounter - Edna Umanzor APRN.HOME CARE GIVER - 08/25/2024 4:06 PM EDT Please let patient know her lumbar spine xr shows disc space loss or narrowing of the disc space. Iwould recommend PT [facility]10-07-2024 Telephone encounter Note* Telephone Encounter - Nikki Hernandez RN - 08/24/2024 10:05 AM EDT Patient calls to check on results of x-rays from last week. Aware that x-rays are still in process and will be contacted once received. Nikki Hernandez RN [facility]10-07-2024 Miscellaneous Notes* Telephone Encounter - Nikki Hernandez RN - 08/24/2024 10:05 AM EDT Patient calls to check on results of x-rays from last week. Aware that x-rays are still in process and will be contacted once received. Nikki Hernandez RN documented in this encounterOur Lady Of Mercy Hospital10-03-2024 History of Present illness Narrative* Damaris Chen RT(R) - 08/20/2024 11:40 AM EDT [...] PATIENT PRESENTS WITH AN IMPLANTABLE OR ATTACHED SURVEY INTERVIEWER: No RADIOLOGY DEPARTMENT: General X-ray: Exam(s) Completed: Spine X-Ray(s): Lumbar AP / LAT / L5-S1 / OBL Pelvis X-Ray: Pelvis with Hip Left PERIPHERAL IV DATA: Not applicable SIGNED BY: RT Heri(R) August 20, 2024 11:33 AM documented in this encounterOur Lady Of Mercy Hospital10-03-2024 History of Present illness Narrative* Edna Umanzor APRN.HOME CARE GIVER - 08/20/2024 10:55 AM EDT Chief Complaint Patient presents with: Follow Up: Leg pain HPI rPashant Sheffield is a 74 year old female [...] disease (HCC) 02/07/[address] Man in [facility] Stage 3a chronic kidney disease (HCC) [...] by mouth once daily. Per Neurology at [facility] simvastatin (ZOCOR) 20 mg tablet Take [...] two times a day. Per Neurology at [facility] Melatonin 5 mg cap Take 2 capsules [...] of 30mg daily, getting from Neurology at [facility] citalopram (CELEXA) 20 mg tablet Take 1 tablet by mouth daily at bedtime. Take with 10mg dose for total of 30mg daily. Per neurology at [facility] estradiol (ESTRACE) 0.01 % (0.1 mg/gram) vaginal [...] YR, HIGH DOSE, TRIVALENT (FLUZONE HIGH-DOSE) - [place] [facility] COVID-19 VACCINE AGE 12+ YR (COMIRNATY) Edna Umanzor APRN.HOME CARE GIVER ' documented in this encounterOur Lady Of Mercy Hospital09-23-2024 Telephone encounter Note * Telephone Encounter - [...] Jaclyn Muniz August 10, 2024 8:46 AM [facility]09-23-2024 Miscellaneous Notes* Telephone Encounter - Jaclyn Ramírez [...] 10, 2024 8:46 AM documented in this encounterOur Lady Of Mercy Hospital09-20-2024 Telephone encounter Note * Telephone Encounter - Patti Tomas MA - 08/07/2024 4:44 PM EDT Left detailed message for patient,. Letter taken to medical records. Patti Tomas MA [facility]09-20-2024 Miscellaneous Notes* Telephone Encounter - Patti Tomas [...] duty d/t Parkinsons. Please phone patient for pickling solution maker: [phone] documented in this encounterOur Lady Of Mercy Hospital09-20-2024 Telephone encounter Note * Telephone Encounter - Ez Solitario MD - 08/07/2024 4:33 PM EDT Letter ready [facility]09-20-2024 Telephone encounter Note* Telephone Encounter - Patti Tomas MA - 08/07/2024 3:35 PM EDT Letter given to provider to sign. Patti Tomas MA [facility]09-20-2024 Telephone encounter Note* Telephone Encounter - Ez Solitario MD - 08/07/2024 3:12 PM EDT Letter ready [facility]09-20-2024 Telephone encounter Note* Telephone Encounter - Deirdre Oliva RN - 08/07/2024 1:56 PM EDT Patient reports she received a letter today for jury duty, and has 5 days to return to them. Asking if pcp can write a letter excusing her for jury duty d/t Parkinsons. Please phone patient for pickling solution maker: [phone] [facility]09-10-2024 History of Present illness Narrative* Berlin Urrutia LPN - 07/28/2024 2:03 PM EDT Scan on 07/28/2024 1:26 PM by Provider, CATHERINE Manzo: Consultation - Neurology documented in this encounterOur Lady Of Mercy Hospital08-21-2024 Instructions* Patient Instructions* Ez Solitario MD - 07/08/2024 2:08 PM EDT Please bring in copies of your power of arc cutter for health care and living will. If not on any Vit D then have her take 1000 international unit(s) 's a day. If she is getting it then try to have her get 2,000 international unit(s) 's of vit D a day. documented in this encounterOur Lady Of Mercy Hospital08-21-2024 History of Present illness Narrative* Ez Solitario [...] Lentiginous junctional nevus of back Comment: Excised 06/2017 02/12/2023: Living will in place Comment: DPA: 02/07/2022: Low serum vitamin B12 06/01/2019: Memory loss Comment: Neuro feels this is Parkinson's related. 02/07/2016: Mixed hyperlipidemia 12/15/2019: Osteopenia, senile Comment: DXA: 11/201902/07/2016: Parkinson's disease Comment: Seeing Dr. Man in [facility] 01/16/2021: Stage 3a chronic kidney disease (HCC) 12/06/2016: Transient global amnesia Comment: Had another episode 07/2017. Neuro feels may be anxiety related. No recurrence since (last episode was 06/2015) Previous Surgical History PAST SURGICAL HISTORY 2006: COLONOSCOPY 02/20/2016: COLONOSCOPY Comment: Dr. Prince, repeat 5 yrs 2005: EGD 11/18/1972: EXTRACTION, ERUPTED TOOTH OR EXPOSED [...] two times a day. Per Neurology at [facility] Melatonin 5 mg cap Take 2 capsules by mouth daily at bedtime. cyanocobalamin (VITAMIN B-12) 1,000 mcg tab Take 1 tablet by mouth once daily. citalopram hydrobromide (CELEXA) 10 mg tablet Take 1 tablet by mouth once daily. Take with 20 mg dose for total of 30mg daily, getting from Neurology at [facility] citalopram (CELEXA) 20 mg tablet Take 1 tablet by mouth daily at bedtime. Take with 10mg dose for total of 30mg daily. Per neurology at [facility] rasagiline (AZILECT) 1 mg tab Take 1 tablet by mouth once daily. Per Neurology at [facility] estradiol (ESTRACE) 0.01 % (0.1 mg/gram) [...] Controlled (<130/80) due on 01/16/2022 Covid-19 Vaccine( season) due on 01/24/2024 Influenza Vaccine(1) due [...] Lymph 1.00 - 4.00 k/uL 1.98 2.27 Hale% % 9.2 8.5 Abs Hale <0.87 k/uL 0.50 0.63 Eosin% % 3.3 [...] - 80.0 ng/mL 26.6 (L) Latest Ref Rng 12/11/2023 Protein, Total 6.3 - 8.0 g/dL [...] prior Ez Solitario MD documented in this encounterOur Lady Of Mercy Hospital07-29-2024 Telephone encounter Note * Telephone Encounter - XavierJaclyn Boles - 06/15/2024 2:08 PM EDT Prescription Refill [...] Jaclyn Muniz June 15, 2024 2:08 PM [facility]07-29-2024 Miscellaneous Notes* Telephone Encounter - Jaclyn Ramírez [...] 15, 2024 2:08 PM documented in this encounterOur Lady Of Mercy Hospital06-11-2024 History of Present illness Narrative* Madeline Johns LPN - 04/28/2024 5:58 PM EDT Scan on 04/28/2024 1:38 PM by Provider, CATHERINE Manzo: Consultation - Neurology documented in this encounterOur Lady Of Mercy Hospital04-01-2024 Miscellaneous Notes* Telephone Encounter - Louise Pemberton [...] you. Louise Pemberton RN. documented in this encounterOur Lady Of Mercy Hospital03-11-2024 Miscellaneous Notes* Telephone Encounter - Allie Chung MA - 01/27/2024 8:34 AM EDT Pt notified and verbalized understanding Allie Chung MA * Telephone Encounter - Edna Umanzor APRN.CNP - 01/27/2024 8:30 AM EDT Please let patient know their labs are normal. documented in this encounterOur Lady Of Mercy Hospital02-08-2024 Instructions* Patient Instructions* Edna Umanzor APRN.CNP - [...] review all the medicines you take, even ccfc-yzd-hbxfjka medicines. As you get older, the way [...] have certain medical conditions. documented in this encounterOur Lady Of Mercy Hospital02-08-2024 History of Present illness Narrative* Edna Umanzor [...] Parkinson's disease 02/07/[address] Man in [facility] Stage 3a chronic kidney disease (HCC) [...] two times a day. Per Neurology at [facility] Melatonin 5 mg cap Take 2 capsules [...] of 30mg daily, getting from Neurology at [facility] citalopram (CELEXA) 20 mg tablet Take 1 tablet by mouth daily at bedtime. Take with 10mg dose for total of 30mg daily. Per neurology at [facility] rasagiline (AZILECT) 1 mg tab Take 1 tablet by mouth once daily. Per Neurology at [facility] estradiol (ESTRACE) 0.01 % (0.1 mg/gram) [...] Abs Lymph 1.00 - 4.00 k/uL 1.87 Hale% % 6.8 Abs Hale <0.87 k/uL 0.45 Eosin% % 3.3 Abs [...] 790.29, ICD10: R73.09 - HGB A1C Edna Umanzor APRN.HOME CARE GIVER documented in this encounterOur Lady Of Mercy Hospital12-19-2023 Telephone encounter Note * Telephone Encounter - Haleigh Capone - 11/05/2023 10:37 AM EST Patient called to cancel procedure with Dr. Prince and did not wish to reschedule at this time Haleigh Capone Crinkling Machine Operator [facility]12-19-2023 Miscellaneous Notes* Telephone Encounter - Haleigh Capone - 11/05/2023 10:37 AM EST Patient called to cancel procedure with Dr. Prince and did not wish to reschedule at this time Haleigh Capone Crinkling Machine Operator * Telephone Encounter - Haleigh Capone - 10/07/2023 3:55 PM EST 11/28/2023 COLON/EGD ASC documented in this encounterOur Lady Of Mercy Hospital11-20-2023 Telephone encounter Note * Telephone Encounter - Haleigh Capone - 10/07/2023 3:55 PM EST 11/28/2023 COLON/EGD ASC [facility]11-20-2023 History of Present illness Narrative* aDren Prince MD - 10/07/2023 3:52 PM EST HISTORY AND PHYSICAL Prashant Perry Nettie 1950 REFERRING PHYSICIAN: Ez Solitario MD CHIEF COMPLAINT: Consult (Iron deficiency, anemia) HPI: The patient is a 73 year old female referred for endoscopy. Prashant notes no history of colon complaints. Patient was recently admitted to [facility] in August 01, 2023. She underwent an [...] Parkinson's disease 02/07/[address] Man in [facility] Stage 3a chronic kidney disease (HCC) [...] two times a day. Per Neurology at [facility] nitrofurantoin monohydrate and macrocrystal (MACROBID) 100 mg [...] of 30mg daily, getting from Neurology at [facility] citalopram (CELEXA) 20 mg tablet Take 1 tablet by mouth daily at bedtime. Take with 10mg dose for total of 30mg daily. Per neurology at [facility] rasagiline (AZILECT) 1 mg tab Take 1 tablet by mouth once daily. Per Neurology at [facility] estradiol (ESTRACE) 0.01 % (0.1 mg/gram) [...] entered by the nurse and reviewed by mn Nursing Notes: Noemy Duron LPN 10/07/2023 3:33 PM Signed REVIEW OF [...] 2018 Last Colonoscopy: 2016 Noemy Duron LPN PHYSICAL EXAMINATION: General: The [...] Daren Prince III, MD documented in this encounterOur Lady Of Mercy Hospital11-20-2023 Instructions* Patient Instructions* Daren Prince MD - [...] If you do not have a responsible wood pile driver operator (family member or friend) withyou to take you home, your exam cannot be done with sedation and will be cancelled. Please bring a list of all of your current medications, including any Dxaf-rqb-Ruvuknp medications with you. Medications If you take [...] your exam. 2 10/2019 documented in this encounterOur Lady Of Mercy Hospital11-20-2023 Nurse Note* Noemy Duron LPN - 10/07/2023 [...] 2016 Noemy Duron LPN documented in this encounterOur Lady Of Mercy Hospital11-18-2023 Miscellaneous Notes* Telephone Encounter - Berlin Urrutia [...] surgery for further w/u documented in this encounterOur Lady Of Mercy Hospital11-14-2023 History of Present illness Narrative* Ez Solitario MD - 10/01/2023 11:01 PM EST Patient's home health 485 form / care plan for certification period 09/12/2023 to 10/31/2023 reviewed and signed. Relevant medical records were reviewed. 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 documented as of this encounter (statuses as of 02/17/2024) [facility]11-08-[facility] History of Present illness Narrative* Ez Solitario MD - 09/25/2023 11:40 AM EST Chief Complaint Patient presents with: Follow Up HPI Prashant Sheffield is a 73 year old female who presents here today for D/C from custodial/follow up on Anxiety and Depression. Patient was seen by Dr. Quinones on 09/13/2023 for increased anxiety and depression and is here today for a follow up. Patient did resident of [facility] for 20 days after S/p open right [...] any increased anxiety or panic attacks with dong so. Moved the Celexa back to the evening [...] Parkinson's disease 02/07/[address] Man in [facility] Stage 3a chronic kidney disease (HCC) [...] of 30mg daily, getting from Neurology at [facility] citalopram (CELEXA) 20 mg tablet Take 1 tablet by mouth daily at bedtime. Take with 10mg dose for total of 30mg daily. Per neurology at [facility] benztropine (COGENTIN) 2 mg tablet Take 1 tablet by mouth twice daily. Per Neurology at [facility] (Patient taking differently: Take 1 mg by mouth two times a day. Per Neurology at [facility]) rasagiline (AZILECT) 1 mg tab Take 1 tablet by mouth once daily. Per Neurology at [facility] estradiol (ESTRACE) 0.01 % (0.1 mg/gram) [...] ICD9: 623.5, ICD10: N89.8 - CONSULT TO RECORDS OFFICER Check - URINALYSIS, WITH MICROSCOPIC - URINE CULTURE 3. Encounter for immunization - ICD9: V03.89, ICD10: Z23 - INFLUENZA VACCINE, PRSV FREE, AGE 65+ YR, HIGH DOSE, QUADRIVALENT (FLUZONE HIGH-DOSE) - [employer] COVID-19 VACCINE (2022- SEASON) AGE 12+ YR 4. Anemia, unspecified [...] which included preparing to see the patient, rkxz-hn-fuco patient care, completing clinical documentation, performing a medically appropriate examination, counseling and educating the patient/family/caregiver and ordering medications, tests, or procedures. Patient was asked at end of visit if they had any questions or input regarding the plan of care we had discussed. Ez Solitario MD documented in this encounterOur Lady Of Mercy Hospital11-03-2023 Miscellaneous Notes* Telephone Encounter - Sury Harding LPN - 09/20/2023 3:04 PM EDT Addended note faxed to [facility] at [phone]. Sury Harding LPN * Telephone Encounter - Alonso Quinones MD - 09/20/2023 1:00 PM EDT Note addended. * Telephone Encounter - Rain Dhillon RN - 09/20/2023 10:58 AM EDT Wendi Bruno called in and reports they are having [...] have been made please fax to # [phone]. documented in this encounterOur Lady Of Mercy Hospital10-30-2023 Miscellaneous Notes* Telephone Encounter - Meera Yun [...] was started on medication in July at [facility]. Patient doeshave appointment scheduled with provider on 09/25. Patient saw Dr. Quinones on 09/13. Please review and advise, Louise Pemberton RN documented in this encounterOur Lady Of Mercy Hospital10-27-2023 History of Present illness Narrative* Alonso Quinones MD - 09/13/2023 2:48 PM EDT Chief Complaint Patient presents with: Anxiety Follow Up: Discharge from [facility] Prashant Sheffield is a 73 year old female who presents here today for Above Complaints. Accompanied today by her sister Moo whom she is living with from now on. Patient resident of [facility] for 20 days after S/p open right [...] SI/HI, feels safe going home today. 09/13/2023 1449 Last Filed Value LEIGHTON-7 - over the [...] 16 16 LEIGHTON-7 Score 16 16 09/13/2023 5645 Last Filed Value PHQ-9 Little interest or [...] Parkinson's disease 02/07/[address] Man in [facility] Stage 3a chronic kidney disease (HCC) [...] total of 30mg daily. Per neurology at [facility] benztropine (COGENTIN) 2 mg tablet Take 1 tablet by mouth twice daily. Per Neurology at [facility] (Patient taking differently: Take 1 mg by mouth two times a day. Per Neurology at [facility]) rasagiline (AZILECT) 1 mg tab Take 1 tablet by mouth once daily. Per Neurology at [facility] multivitamin tablet Take 1 tablet by [...] of 30mg daily, getting from Neurology at [facility] (Patient not taking: Reported on 09/13/2023) estradiol [...] Vaccine(1) due on 07/19/2023 Covid-19 Vaccine( - 2022- season) due on 07/19/2023 DTaP,Tdap,Td Vaccine(1 - [...] which included preparing to see the patient, ipfw-cl-hiej patient care, completing clinical documentation, obtaining and/or reviewing separately obtained history, performing a medically appropriate examination, counseling and educating the pat ient/family/caregiver, and ordering medications, tests, or procedures. Alonso Quinones MD documented in this encounterOur Lady Of Mercy Hospital10-24-2023 Miscellaneous Notes* Telephone Encounter - Deirdre Oliva RN - 09/10/2023 12:40 PM EDT Phoned Ann, and given provider's message below with verbalized understanding. * Telephone Encounter - Ez Solitario MD - 09/10/2023 10:48 AM EDT Dani Juarez know I will sign the C orders but not a F2f since this should have been signed by the provider who ordered the [facility]. * Telephone Encounter - Berlin Urrutia LPN - 09/10/2023 10:39 AM EDT Ann form [facility] calling to see if Dr Solitario is willing to sign pt's HH orders. Call Ann at [phone]. Ok to leave . 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 Currently in custodial facility for rehab. Patientis planning to live with sister in 1-2 weeks. Patient's appointment in office was cancelled due to patient being in the hospital. Patient's last medicare wellness was 08/13/2022. Patti Tomas MA documented in this encounterOur Lady Of Mercy Hospital09-20-2023 Miscellaneous Notes* Telephone Encounter - Ez Solitario MD - 08/07/2023 12:52 PM EDT Noted. Will forward messages onto Edna CUNHA * Telephone Encounter - Jonathon Huynh LPN - 08/06/2023 4:39 PM EDT ANABEL allen is admitted to [facility]. Records were printed and are on nurse's [...] with Edna on 08/15/2023. documented in this encounterOur Lady Of Mercy Hospital09-19-2023 Discharge summary Author Rain Bustos [facility] August 06, 2023 12:40pm Note Date/Time August 06, 2023 11:14am [facility] Medical Records Department [address] [place] [address] Transfer to [facility] MR#: [id number] Acct: [id number] Name: PRASHANT SHEFFIELD Rep #:[id number] 3 : 1950 73 From: Rain BOSE-Benita PCP: Dr. Ez Solitario MD Status:ADM IN Certification of patient admission REQUIRED AT TIME OF ADMISSION. I CERTIFY THAT POST-HOSPITAL ECF SERVICES ARE REQUIRED TO BE GIVEN ON AN IN-PATIENT BASIS BECAUSE OF THE ABOVE NAMED PATIENT'S NEED FOR FDC CARE ON A CONTINUING BASIS FOR THE CONDITION(S) FOR WHICH HE/SHE WAS RECEIVING IN-PATIENT HOSPITAL SERVICES PRIOR TO HIS/HER TRANSFER TO THE ECF. 08/06/23 1240<Electronically signed by Rain BOSE PA-C> [...] similar medications, I would recommend transitioning tothese qnqb-dnv-effuvty medicines as soon as possible instead of continued use ofnarcotic pain medication. Follow up ? You should call [facility] soon after surgery, at [phone] option 1 to make a follow up appointment for 14 days after your surgery. Transitional Diet Beverages: ? Soda (cola, diet cola, lemon-lytton, diet lemon-lytton, kermit alejandra, diet kermit alejandra) ? Tea (hot or iced) ? Milk (low-fat, 2%, lactose free) ? Coffee ? Juice (without pulp) ? Oral Nutrition supplement Breakfast: ? Hot cereal (oatmeal or cream of wheat) ? Scrambled eggs ? Blueberry muffin ? Cold cereal (no whole grain cereals) ? [place] (white) Lunch or Dinner: Deli Items: Hot Items: [place] sandwich Roast [place] Tuna salad (sandwich or alone) Macaroni & [...] Rehab Unit/Facility Charges/Coding Visit Charges Inpatient E&M: 87777 Disch Hosp (no charge; post-op) (1) UTI (urinary tract infection) Qualifiers: Urinary tract infection type: site unspecified Hematuria presence: without hematuria Qualified Code(s): N39.0 - Urinary tract infection, site not specified 08/06/23 1240 <Electronically signed by Rain BOSE PA-C> Cosigner Signature (if applicable): CC: Dr. Ez Solitario MD ~ [facility] Work Phone: 1(834) 511-297709-19-2023 Progress note Author Ishaan Olson [facility] August 06, 2023 9:07am Note Date/Time August 06, 2023 9:07am [facility] Medical Records Department [address] [place] [address] Progress Note - Surgery 08/06/23905 MR#: [id number] Acct: [id number] Name: PRASHANT SHEFFIELD Rep #:[id number] : 1950 73 From: Ishaan shah MD PCP: Dr. Ez Solitario MD Status:ADM IN Location: [place] [address] Subjective Subjective Patient was less confused overnight. [...] Intake and Output for Last 24 Hours 09/17/23 09/18/23 09/19/23 23:59 23:59 23:59 Intake Total 1218 / [...] Sl. Cloudy, Urine pH 5.0, Ur Specific [place] 1.030, Urine Protein 30 H, Urine Glucose [...] % (Auto) 66.5, Lymph % (Auto) 19.4, Hale % (Auto) 10.2 H, Eos % (Auto) [...] right hemicolectomy: PLAN: Plan Patient has been sundowning for the last few nights though UA was checked yesterday. It was confirmed to be a urinary tract infection. She was started on Zosyn yesterday. I will convert her to oral Cipro and send her to TCU today. She is tolerating regular diet. I will continue to monitor the cultures and ifthese are insufficient to change her antibiotics. Ishaan Olson MD Pager: [facility] [address] [place] [address], [address] [place] [address] Office: 08/06/23906 <Electronically signed by Ishaan Olson MD> Cosigner Signature (if applicable): CC: ~ Signed [facility] Work Phone: 1(892) 247-597409-18-2023 Progress note Author Rain Bustos [facility] August 05, 2023 3:00pm Note Date/Time August 05, 2023 8:17am [facility] Medical Records Department [address] [place] [address] Progress Note - Surgery 08/05/23815 MR#: [id number] Acct: [id number] Name: PRASHANT SHEFFIELD Rep #:[id number] 6 : 1950 73 From: Ishaan shah MD PCP: Dr. Ez Solitario MD Status:ADM IN Location: [place] [address] Subjective Subjective Patient had confusion and delirium [...] toa regular diet. Ishaan Olson MD Pager: [facility] [address] [place] [address], [address] [place] [address] Office: 08/05/23 0817 <Electronically signed by Ishaan Olson MD> Cosigner Signature (if applicable): CC: ~ Signed ADDENDUM by CATHERINE Bustos on 08/05/23 at 1500 Addendum Awaiting urinalysis. Plan for patient to be discharged tomorrow to [facility] rehab unit. 08/05/23 1500<Electronically signed by Rain BOSE PA-C> Cosigner Signature (if applicable): cc: ~* Signed [facility] Work Phone: 1(358) 370-486109-17-2023 Progress note Author Ishaan Olson [facility] August 04, 2023 9:25am Note Date/Time August 04, 2023 9:25am [facility] Medical Records Department [address] [place] [address] Progress Note - Surgery 08/04/23922 MR#: [id number] Acct: [id number] Name: PRASHANT SHEFFIELD Rep #:[id number] 1 : 1950 73 From: Ishaan shah MD PCP: Dr. Ez Solitario MD Status:ADM IN Location: DC3 [id number] Subjective Subjective Patient reports she had confusion [...] 71.3 H, Lymph % (Auto) 11.7 L, Hale % (Auto) 13.5 H, Eos % (Auto) 3.3, Baso % (Auto) 0.2, Absolute Neuts (auto) 3.1, Absolute Lymphs (auto) 0.50 L, Nucleated RBC % 0, Diff Path Review March, Sodium 137, Potassium 4.1, Chloride 109 H, [...] a clear liquiddiet. Ishaan Olson MD Pager: [facility] [address] [place] [address], [address] [place] [address] Office: 08/04/23924 <Electronically signed by Ishaan Olson MD> Cosigner Signature (if applicable): CC: ~ Signed [facility] Work Phone: 1(614) 693-601909-16-2023 Progress note Author Ishaan Olson [facility] August 03, 2023 9:00am Note Date/Time August 03, 2023 9:00am [facility] Medical Records Department [address] [place] [address] Progress Note - Surgery 08/03/23858 MR#: [id number] Acct: [id number] Name: PRASHANT SHEFFIELD Rep #:[id number] : 1950 73 From: Ishaan shah MD PCP: Dr. Ez Solitario MD Status:ADM IN Location: MS3 [id number] Subjective Subjective Patient is not passing flatus [...] her IV fluids. Ishaan Olson MD Pager: [facility] [address] [place] [address], [address] [place] [address] Office: 08/03/23 0900 <Electronically signed by Ishaan Olson MD> Cosigner Signature (if applicable): CC: ~ Signed [facility] Work Phone: 1(559) 188-192209-15-2023 Progress note Author Esme Andre [facility] August 02, 2023 12:08pm Note Date/Time August 02, 2023 8:14am [facility] Medical Records Department [address] [place] [address] Progress Note - Surgery 08/02/23812 MR#: [id number] Acct: [id number] Name: PRASHANT SHEFFIELD Rep #:[id number] 9 : 1950 73 From: Esme Andre MD PCP: Dr. Ez Solitario MD Status:ADM IN Location: [place] [address] Subjective Subjective Patient has minimal out of [...] 92.2 H, Lymph % (Auto) 5.1 L, Hale % (Auto) 2.1, Eos % (Auto) 0.0, [...] Globulin 3.7, Albumin/Globulin Ratio 1.0, Lipase 23 08/01/23 18:14: PT 14.0, INR 1.1, APTT 25.8, Blood Type O NEGATIVE, Antibody Screen NEGATIVE 08/01/23 19:30: Urine Color Yellow, Urine Clarity Clear, Urine pH 5.0, Ur Specific [place] 1.020, Urine Protein 15 H, Urine Glucose [...] 90.4 H, Lymph % (Auto) 4.5 L, Hale % (Auto) 4.6, Eos % (Auto) 0.0, [...] as I will be gone next week. Emse Andre M.D. Pager: [phone] [facility] [address] [place] [address], [facility], [address] [place] [address] Office: [phone] 08/02/23 1208 <Electronically signed by Esme Andre MD> Cosigner Signature (if applicable): CC: ~ Signed [facility] Work Phone: 1(144) 891-522109-15-2023 Procedure [facility] 08-02-2023 History of Present illness Narrative* Berlin Urrutia LPN - 08/02/2023 9:52 AM EDT Scan on 08/02/2023 11:07 AM by Provider, Jovany PANuzhatC: GI Scan on 08/01/2023 5:55 PM by Provider, Jovany PANuzhatC: CT Scan Scan on 08/01/2023 7:10 PM by ProviderJovany PA-C: Miscellaneous Lab Scan on 08/01/2023 7:12 PM by ProviderJovany PA-C: X-ray Scan on 08/01/2023 8:16 PM by ProviderJovany PA-C: Chemistry documented in this encounterOur Lady Of Mercy Hospital09-14-2023 Discharge summary Author Vladislav Crawford [facility] August 01, 2023 7:18pm Note Date/Time August 01, 2023 5:05pm [facility] Medical Records Department [address] [place] [address] Emergency Department Summary 08/01/23 MR#: [id number] Acct: [id number] Name: PRASHANT SHEFFIELD Rep #:[id number] 1 : 1950 73 From: Vladislav William PCP: Dr. Ez Solitario MD Status:[facility] Location: [address] History of Present Illness Chief Complaint: [...] bowel movements daily versus every other day. [facility] Medical History Parkinson disease Home Medications benztropine 2 mg tablet 1 mg PO BID PARKINSONS 07/20/16 [History Last Taken 08/01/23] simvastatin 20 mg tablet 20 mg PO QHS CHOLESTEROL 07/20/16 [History Last Taken 07/31/23] cephalexin 500 mg capsule 500 mg PO TID ANTIBIOTIC #15 caps 07/28/23 [Rx Last Taken 07/31/23] alendronate 70 mg tablet 70 mg PO LOMOS OSTEOPEROSIS 08/01/23 [History Last Taken 07/28/23] aspirin [...] clinician: Surgeon This note was generated with cfgAdvance dictation software. It may contain incorrectwords, spelling, [...] 92.2 H Lymph % (Auto) 5.1 L Hale % (Auto) 2.1 Eos % (Auto) 0.0 [...] of stool throughout the colon. Electronically Signed: Garce Donohue MD at 17:47 EDT , Discharge Plan Dx/Rx/DC Orders Clinical Impression: Cecal volvulus, Small bowel obstruction, Vomiting Disposition Disposition: Acute Care Hospital [facility] What to do if you have Problems For any increased pain, shortness of breath, bleeding, nausea or vomiting, chestpain, or any unexpected problems, contact your Primary Care Provider. Call [facility] ([phone]) or report to the closest Emergency Room. Call 911 if necessary. 08/01/231917 <Electronically signed by Vladislav William> Cosigner Signature (if applicable): CC: Dr. Ez Solitario MD ~ Signed [facility] Work Phone: 1(501) 458-157209-14-2023 History and physical note Author Esme Andre [facility] August 01, 2023 7:05pm Note Date/Time August 01, 2023 6:12pm [facility] Medical Records Department [address] [place] [address] H&P Exam - Surgical 08/01/23 1811 MR#: [id number] Acct: [id number] Name: PRAHSANT SHEFFIELD Rep #:[id number] 2 : 1950 73 From: Esme Andre MD PCP: Dr. Ez Solitario MD Status:[facility] Location: [place] [address] HPI - General General Date of Service: [...] she fell last Saturday, which was stapled. [facility] Medical History Parkinson disease Home Medications benztropine [...] Reaction Status Date / Time codeine AdvReac "SPENCERZY Verified 08/01/23 16:52 DREAMS" DOES NOT LIKE [...] 92.2 H, Lymph % (Auto) 5.1 L, Hale % (Auto) 2.1, Eos % (Auto) 0.0, [...] intubation and CPR Esme Andre M.D. Pager: [phone] [facility] [address] [place] [address], [address] [place] [address] Office: [phone] 08/01/23 190 <Electronically signed by Esme Andre MD> Cosigner Signature (if applicable): CC: Dr. Ez Solitario MD; Dr. Esme Andre MD~ Signed [facility] Work Phone: 1(477) 480-714109-14-2023 Discharge summary Author Vladislav Crawford [facility] August 01, 2023 7:18pm Note Date/Time August 01, 2023 5:05pm [facility] Medical Records Department [address] [place] [address] Emergency Department Summary 08/01/23 MR#: [id number] Acct: [id number] Name: PRASHANT SHEFFIELD Rep #:[id number] 1 : 1950 73 From: Vladislav William PCP: Dr. Ez Solitario MD Status:[facility] Location: [place] [address] HPI History of Present Illness Chief Complaint: Nausea/Vomiting [...] bowel movements daily versus every other day. PFSH [facility] Medical History Parkinson disease Home Medications benztropine [...] clinician: Surgeon This note was generated with cfgAdvance dictation software.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 Primary Care [...] on 08/05. Patient was accepted to the [facility] rehab facility for rehabilitationas patient has a [...] Sl. Cloudy, Urine pH 5.0, Ur Specific [place] 1.030, Urine Protein 30 H, Urine Glucose [...] % (Auto) 66.5, Lymph % (Auto) 19.4, Hale % (Auto) 10.2 H, Eos % (Auto) [...] our office to schedule an appointment at [phone]. Meaningful Use Info Meaningful Use Diagnoses (Choose [...] similar medications, I would recommend transitioning tothese opdf-ype-ccutxdw medicines as soon as possible instead of continued use ofnarcotic pain medication. Follow up ? You should call [facility] soon after surgery, at [phone] option 1 to make a follow up appointment for 14 days after your surgery. Transitional Diet Beverages: ? Soda (cola, diet cola, lemon-lytton, diet lemon-lytton, kermit alejandra, diet kermit alejandra) ? Tea (hot or iced) ? Milk (low-fat, 2%, lactose free) ? Coffee ? Juice (without pulp) ? Oral Nutrition supplement Breakfast: ? Hot cereal (oatmeal or cream of wheat) ? Scrambled eggs ? Blueberry muffin ? Cold cereal (no whole grain cereals) ? [place] (white) Lunch or Dinner: Deli Items: Hot Items: [place] sandwich Roast [place] Tuna salad (sandwich or alone) Macaroni & [...] Rehab Unit/Facility Charges/Coding Visit Charges Inpatient E&M: 69945 Disch Hosp (no charge; post-op) 08/06/23 1304 <Electronically signed by Rain BOSE PA-C> Cosigner Signature (if applicable): CC: CATHERINE Bustos; Dr. Ez Solitario MD~ Signed [facility] Work Phone: Evaluation + Plan note No data available for this section [facility] Evaluation note* Diagnosis Essential hypertension- Primary Unspecified [...] medications [facility] Diagnosis Osteopenia, senile Disorder of bone and cartilage, unspecified Primary ovarian failure Other ovarian failure documented in this encounter [facility] noteNo assessment information availableWTriHealth [facility] Work Phone: Evaluation note* Diagnosis Essential [...] of other medications documented in this encounter [facility] note* Diagnosis Essential hypertension- Primary Unspecified essential hypertension Lower extremity edema Edema Hypertensive heart and chronic kidney disease with heart failure and stage 1 through stage 4 chronic kidney disease, or unspecified chronic kidney disease (HCC) documented in this encounter [facility] note* Diagnosis Peripheral edema- Primary Edema Leg swelling Swelling of limb documented in this encounter [facility] note* Diagnosis Medication management- Primary Encounter for long-term (current) use of other medications Essential hypertension Unspecified essential hypertension documented in this encounter [facility] note* Diagnosis Parkinson's disease (HCC)- Primary Paralysis agitans Mobility impaired Other ill-defined conditions Falls frequently Personal history of fall Driving safety issue Other specified personal history presenting hazards to health documented in this encounter 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 note* Diagnosis Cecal volvulus (HCC)- Primary Volvulus Vaginal discharge Leukorrhea, not specified as infective Encounter for immunization Need for other specified prophylactic vaccination against single bacterial disease Anemia, unspecified type Stage 3a chronic kidney disease (HCC) Other general symptoms and signs Anxiety and depression Dysthymic disorder [facility]* Diagnosis Parkinson's disease, unspecified whether dyskinesia present, unspecified whether manifestations fluctuate- Primary documented in this encounter [facility] note* Diagnosis Iron deficiency anemia, unspecified iron deficiency anemia type documented in this encounter [facility] note* Diagnosis GERD without esophagitis- Primary Esophageal reflux Iron deficiency anemia, unspecified iron deficiency anemia type documented in this encounter [facility] note* Diagnosis Encounter for screening mammogram for breast cancer documented [facility]* Diagnosis Medicare annual wellness visit, [...] with anxiety (HCC) documented in this encounter [facility] note* Diagnosis Osteopenia, senile- Primary Disorder of bone and cartilage, unspecified documented in this encounter [facility] note* Diagnosis Elevated hemoglobin A1c- Primary Other [...] kidney disease (HCC) [facility] Left leg pain- Primary Pain in limb Encounter for immunization Need for other specified prophylactic vaccination against single bacterial disease [facility]* Diagnosis Left leg pain Pain in limb [facility]* Diagnosis Acute midline low back pain without sciatica- Primary [facility]* Diagnosis Encounter for screening mammogram for breast cancer documented [facility]* Diagnosis Medicare annual wellness visit, subsequent- Primary Routine general medical examination at a [facility] Advance directive discussed with patient [...] dyskinesia present, unspecified whether manifestations fluctuate (HCC) Urine frequency Urinary frequency Asymptomatic menopause documented [facility] encounter [facility]* Diagnosis Asymptomatic menopause [facility]* Diagnosis Encounter for screening mammogram for breast cancer documented [facility]* Diagnosis Traumatic ecchymosis of right lower leg, initial encounter- Primary documented in this encounter [facility] note* Diagnosis Onset Date Resolution Status Admit Date Generalized muscle weakness acute July 07, 2025 11:49am History of Parkinson disease acute July 07, 2025 11:49am Unable to walk acute June 11:49am [facility] Work Phone: History and physical note Author Esme Andre [facility] August 01, 2023 7:05pm Note Date/Time August 01, 2023 6:12pm [facility] Medical Records Department [address] [place] [address] H&P Exam - Surgical 08/01/23 1811 MR#: [id number] Acct: [id number] Name: PRASHANT SHEFFIELD Rep #:[id number] : 1950 73 From: Esme Andre MD PCP: Dr. Ez Solitario MD Status:REG [facility] Location: [address] HPI - General General Date of Service: [...] she fell last Saturday, which was stapled. [facility] Medical History Parkinson disease Home Medications benztropine [...] 92.2 H, Lymph % (Auto) 5.1 L, Hale % (Auto) 2.1, Eos % (Auto) 0.0, [...] intubation and CPR Esme Andre M.D. Pager: [phone] [facility] [address] [place] [address], [facility], [address] [place] [address] Office: [phone] 08/01/231904 <Electronically signed by Esme Andre MD> Cosigner Signature (if applicable): CC: Dr. Ez Solitario MD; Dr. Esme Andre MD~ Signed [facility] Work Phone: History and physical note Author Davin Kirkland [facility] Note Date/Time July 07, 2025 12 :23pm [facility] Medical Records Department [address] [place] [address] H&P Exam - Hospitalist 07/07/25 1158 MR#: [id number] Acct: [id number] Name: PRASHANT SHEFFIELD Rep #:[id number] : 1950 75 From: Davin Kirkland MD PCP: Dr. Ez Solitario MD Status:ADM ROXIE Location: DC3 IS069-5 HPI - General General Date of Admission: 07/07/25 Date of Service: 07/07/25 Chief Complaint: Generalized weakness HPI Narrative PRASHANT SHEFFIELD, is a 75 F with past medical history significant for Parkinson's disease resident [facility] who was brought to the emergency department with generalized weakness. Per patient she recently had medication adjustment mainly for anxiety since then she has developed progressive generalized weakness. Patient also complains of muscle aches and difficulty with both handgrips. Workup in the ED came back unremarkable. Patient admittedto regular nursing floor for subsequent eval with consultation placed to PT/OT/SW [facility] Medical History Dysphagia History of 1 Parkinson [...] bisacodyl 10 mg rectal suppository 10 mg MD .PRN X 1 P RN Constipation 08/20/23 [...] Father , at 51 YOA due to [place] CAD (coronary artery disease) Mother , she [...] Clarity Clear, Urine pH 6.0, Ur Specific [place] 1.010, Urine Protein 30 H, Urine Glucose [...] % (Auto) 66.1, Lymph % (Auto) 22.8, Hale % (Auto) 8.3, Eos % (Auto) 1.5, [...] Chest CT correlation is recommended. [facility] & [facility] Assessment/Plan (1) Generalized muscle weakness: PLAN: Plan PRASHANT SHEFFIELD, is a 75 F with past medical history significant for Parkinson's disease resident [facility] who was brought to the emergency department [...] nursing floor requested for PT/OT eval and social science research assistant to assist with discharge planning. With patient [...] Multi Select Codes Visit Charges Visit Charges: 60213 Init Hosp L2 Hospitalists' Procedures Procedures: 04508 Advncd Care Plan 30 Min 07/07/25 1223 <Electronically signed by Davin Kirkland MD> Cosigner Signature (if applicable): CC: Dr. Davin Kirkland MD; Dr. Ez Solitario MD~ Signed [facility] Work Phone: Hospital Discharge instructions No data available for this section [facility] Progress note No data available for this section [facility] Reason for referral (narrative)* Outpatient Procedure (Routine) - Authorized Specialty Diagnoses / Procedures Referred By Contac t Referred To [facility] Diagnoses Lower extremity edema Procedures ECHO ECHO TTHRC R-T 2D W/WOM-MODE COMPL SPEC&COLR D Edna Umanzor APRN.CNP [address] [place] [address] [address] Referral ID Status Reason Start Date Expiration Date Visits Requested Visits Authorized [id number] Authorized Auto-Generat ed Referral 05/02/2023 05/01/2024 1 1 * Outpatient Procedure (Routine) - Closed Specialty Diagnoses / Procedures Referred By Contac t Referred To Contact [facility] Diagnoses Essential hypertension Procedures ECG COMPLETE ECG ROUTINE ECG W/LEAST 12 LDS W/I&R Edna Umanzor APRN.CNP [address] [place] [address] [address] Referral ID Status Reason Start Date Expiration Date V isits Requested Visits Authorized [id number] Closed Auto-Generate d Referral 05/02/2023 05/01/2024 1 1 [facility] for referral (narrative)* Outpatient Procedure (Routine) - Authorized Specialty Diagnoses / Procedures Referred By Contac t Referred To Contact [facility] Diagnoses Peripheral edema Leg swelling Procedures US LEG VEIN DVT TESSA VAS LAB DUP-SCAN XTR VEINS COMPLETE BILATERAL STUDY Lauren Camacho PA-C [address] [place] [address] [address] Referral ID Status Reason Start Date Expiration Date Visits Requested Visits Authorized [id number] Authorized Auto-Generat ed Referral 05/24/2023 05/23/2024 1 1 [facility] for referral (narrative)* Outpatient Procedure (Routine) - Authorized Specialty Diagnoses / Procedures Referred By Contac t Referred To Contact [facility] Diagnoses Iron deficiency anemia, unspecified iron deficiency anemia type Procedures COLONOSCOPY DIAGNOSTIC COLONOSCOPY FLX DX W/COLLJ SPEC WHEN PFRMD Daren Prince MD [address] [place] [address] [facility] [place] [address] [place] [address] Referral ID Status Reason Start Date Expiration Date Visits Requested Visits Authorized [id number] Authorized Auto-Generat ed Referral 3 10/07/2024 1 1 * Outpatient Procedure (Routine) - Authorized Specialty Diagnoses / Procedures Referred By Luis Manuelac t Referred To Contact [facility] Diagnoses Iron deficiency anemia, unspecified iron deficiency anemia type Procedures EGD DIAGNOSTIC ESOPHAGOGASTRODUODENOSC OPY TRANSORAL DIAGNOSTIC Daren Prince MD [address] [place] [address] [address] Referral ID Status Reason Start Date Expiration Date Visits Requested Visits Authorized [id number] Authorized Auto-Generat ed Referral 3 10/07/2024 1 1 [facility] for referral (narrative)* Diagnostic Procedure Only (Routine) - Pending Review Specialty Diagnoses / Procedures Referred By Star t Referred To Contact [facility] Diagnoses Encounter for screening mammogram for breast cancer Procedures SONIA SCREENING SCREENING MAMMOGRAPHY BI 2-VIEW BREAST INC CAD Ez Solitario MD [address] [place] [address] [facility] [address] [place] [address] Referral ID Status Reason Start Date Expiration Date Visits Requested Visits Authorized [id number] Pending Review Auto-Generat ed Referral 10/23/2023 11/21/2024 1 1 [facility] ([facility] Diagnostic Procedure Only (Routine) - Closed Specialty Diagnoses / Procedures Referred By Contac t Referred To Contact [facility] Diagnoses Left leg pain Procedures XR HIP GENERAL 3V PELV/AP/LAT LEFT RADEX HIP UNILATERAL WITH PELVIS 2-3 VIEWS Edna Umanzor APRN.CNP [facility] [place] [address] [place] [address] Referral ID Status Reason Start Date Expiration Date V isits Requested Visits Authorized [id number] Closed Auto-Generate d Referral 08/20/2024 09/19/2025 1 1 * Diagnostic Procedure Only (Routine) - Closed Specialty Diagnoses / Procedures Referred By Contac t Referred To Contact [facility] Diagnoses Left leg pain Procedures XR LUMBAR PARS DEFECT 4V AP/LAT/BOTH OBL RADEX SPINE LUMBOSACRAL MINIMUM 4 VIEWS Edna Umanzor APRN.CNP [facility] [place] [address] [place] [address] Referral ID Status Reason Start Date Expiration Date V isits Requested Visits Authorized [id number] Closed Auto-Generate d Referral 08/20/2024 09/19/2025 1 1 [facility] for referral (narrative)* Diagnostic Procedure Only (Routine) - New Request Specialty Diagnoses / Procedures Referred By Contac t Referred To Contact [facility] Diagnoses Encounter for screening mammogram for breast cancer Procedures SONIA SCREENING W GERMAN SCREENING DIGITAL BREAST TOMOSYNTHESIS BI SCREENING MAMMOGRAPHY BI 2-VIEW BREAST INC CAD Ez Solitario MD [address] [place] [address] [facility] [address] [place] [address] Referral ID Status Reason Start Date Expiration Date Visits Requested Visits Authorized [id number] New Request Auto-Generat ed Referral 10/30/2025 1 1 [facility] for referral (narrative)No reason for referral information availableWTriHealth [facility] Work Phone: Reason for visit Narrative* Diagnostic Procedure Only (Routine) - Closed Specialty Diagnoses / Procedures Referred By Contac t Referred To Contact [facility] Diagnoses Left leg pain Procedures XR HIP GENERAL 3V PELV/AP/LAT LEFT RADEX HIP UNILATERAL WITH PELVIS 2-3 VIEWS Edna Umanzor APRN.HOME CARE GIVER [address] [place] [address] [place] [address] Referral ID Status Reason Start Date Expiration Date V isits Requested Visits Authorized [id number] Closed Auto-Generate d Referral 08/20/2024 09/19/2025 1 1 [facility] for visit Narrative* Diagnostic Procedure Only (Routine) - Closed Specialty Diagnoses / Procedures Referred By Contac t Referred To Contact [facility] Diagnoses Asymptomatic menopause Procedures DXA-AXIAL SKELETON DXA BONE DENSITY STUDY / SITES AXIAL Lauren Adame PA-C [address] [place] [address] Phone: tel: fax: [place] [address] Referral ID Status Reason Start Date Expiration Date V isits Requested Visits Authorized [id number] Closed Auto-Generate d Referral 01/11/2025 02/10/2026 1 1 [facility] for visit Narrative* Diagnostic Procedure Only (Routine) - Closed Specialty Diagnoses / Procedures Referred By Contac t Referred To Contact [facility] Diagnoses Encounter for screening mammogram for breast cancer Procedures SONIA SCREENING W GERMAN SCREENING DIGITAL BREAST TOMOSYNTHESIS BI SCREENING MAMMOGRAPHY BI 2-VIEW BREAST INC Ez Diaz MD [address] [place] [address] Phone: tel: fax: [facility] [address] [place] [address] Referral ID Status Reason Start Date Expiration Date V isits Requested Visits Authorized [id number] Closed Auto-Generate d Referral 09/30/2024 10/30/2025 1 1 [facility] Summary Purpose Family History No Family History Records Found Relationship Condition Age at Onset Recorded Date/T sushil Unknown Family History?No pe rtinent history Unknown July 20, 2016 5:37pm Relationship Condition Age at Onset Recorded Date/T sushil father Coronary artery disease Unknown mother Coronary artery disease Unknown sister Hypertension Unknown Advance Directives No Advanced Directives Records FoundDocuments on File Type Date Recorded 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 Advance Directive(s) 02/20/2016 9:06 AM Advance Directive(s) 02/17/2016 12:59 PM Documents on File Type Date Recorded 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 July 28, 2023 9:48am Advance Directive Response Recorded Date/ Time Advance Directives No July 7:00pm Living Will No August 01, 2023 4:58pm Power of News Clipping Cutter No July 4:58pm Name of Medical Power of News Clipping Cutter ? July 28, 2023 9:48am Advance Directive Response Recorded Date/ Time Name of Medical Power of News Clipping Cutter Naima Delacruz August 01, 2023 11:02pm Advance Directives No July 7:00pm Living Will Yes August 01, 2023 11:02pm Power of News Clipping Cutter Yes July 11:02pm Name of Medical Power of News Clipping Cutter ? July 28, 2023 9:48am Advance Directive Response Recorded Date/ Time Do you have a Healthcare Power of News Clipping Cutter? No July 07, 2025 9:34am Advance Directives No July 7:00pm Advance Directive Response Recorded Date/ Time Do you have a Healthcare Power of News Clipping Cutter? Yes July 07, 2025 12:52pm Name of Medical Power of News Clipping Cutter Moo Velez July 07, 2025 12:52pm Advance Directives No July 7:00pm Reason for Referral Specialty Diagnoses / Procedures Referred By Star t Referred To Contact General Surgery Diagnoses Colon cancer screening Procedures CONSULT TO GENERAL SURGERY OFFICE/OUTPATIENT NEW HIGH MDM 60-74 MINUTES Ez Solitario MD [address] [place] [address] Referral ID Status Reason Start Date Expiration Date Visits Requested Visits Authorized [id number] Authorized PCP Requested Referral 02/07/2022 02/07/2023 1 1 Specialty Diagnoses / Procedures Referred By Contac t Referred To Contact Diagnoses Vaginal discharge Procedures CONSULT TO RECORDS OFFICER OFFICE/OUTPATIENT [facility] 60-74 MINUTES Ez Solitario MD [address] [place] [id number] Referral ID Status Reason Start Date Expiration Date Visits Requested Visits Authorized [id number] Authorized PCP Requested Referral Auto-Generate d Referral 09/25/2023 09/24/2024 1 1 Specialty Diagnoses / Procedures Referred By Contac t Referred To Contact General Surgery Diagnoses Iron deficiency anemia, unspecified iron deficiency anemia type Procedures CONSULT TO GENERAL SURGERY OFFICE/OUTPATIENT [facility] 60-74 MINUTES Ez Solitario MD [address] [place] [phone] Referral ID Status Reason Start Date Expiration Date Visits Requested Visits Authorized [id number] Authorized PCP Requested Referral 10/03/2024 1 1 Specialty Diagnoses / Procedures Referred By Contac t Referred To Contact [facility] Diagnoses Acute midline low back pain without sciatica Procedures CONSULT TO PHYSICAL THERAPY PHYSICAL THERAPY EVALUATION HIGH COMPLEX 45 MINS Edna Umanzor, GENIE.HOME CARE GIVER [address] [place] [address] [facility] [place] [address] [place] [id number] Referral ID Status Reason Start Date Expiration Date Visits Requested Visits Authorized [id number] Authorized PCP Requested Referral Auto-Generate d Referral [...] section and content) DATE CREATED AUTHOR 02/18/2021 [facility] DATE CREATED AUTHOR AUTHOR'S ORGANIZ ATION 03/03/2024 [facility] ([place]) DATE CREATED AUTHOR AUTHOR'S ORGANIZ ATION 12/12/2024 [facility] DATE CREATED AUTHOR AUTHOR'S ORGANIZ ATION 08/26/2025 [facility] DATE CREATED AUTHOR AUTHOR'S ORGANIZ ATION 09/02/2025 [facility] Source Comments (unrecognize d section and content) In the event this informatio n is protected by the Federal Confidentiality of Alcohol and Drug Abuse Patient Records regulations: The Federal rules restrict any use of the information to criminally investigate or prosecute any alcohol or drug abuse patient.[facility]In the event this information is protected by the Federal Confidentiality of Alcohol and Drug Abuse Patient Records regulations: The Federal rules restrict any use of the information to criminally investigate or prosecute any alcohol or drug abuse patient.[facility] HospitalIn the event this information is protected by the Federal Confidentiality of Alcohol and Drug Abuse Patient Records regulations: The Federal rules restrict any use of the information to criminally investigate or prosecute any alcohol or drug abuse patient.[facility] HospitalIn the event this information is protected by the Federal Confidentiality of Alcohol and Drug Abuse Patient Records regulations: The Federal rules restrict any use of the information to criminally investigate or prosecute any alcohol or drug abuse patient.[facility] HospitalIn the event this information is protected by the Federal Confidentiality of Alcohol and Drug Abuse Patient Records regulations: The Federal rules restrict any use of the information to criminally investigate or prosecute any alcohol or drug abuse patient.[facility] HospitalIn the event this information is protected by the Federal Confidentiality of Alcohol and Drug Abuse Patient Records regulations: The Federal rules restrict any use of the information to criminally investigate or prosecute any alcohol or drug abuse patient.[facility] HospitalIn the event this information is protected by the Federal Confidentiality of Alcohol and Drug Abuse Patient Records regulations: The Federal rules restrict any use of the information to criminally investigate or prosecute any alcohol or drug abuse patient.[facility] HospitalIn the event this information is protected by the Federal Confidentiality of Alcohol and Drug Abuse Patient Records regulations: The Federal rules restrict any use of the information to criminally investigate or prosecute any alcohol or drug abuse patient.[facility] HospitalIn the event this information is protected by the Federal Confidentiality of Alcohol and Drug Abuse Patient Records regulations: The Federal rules restrict any use of the information to criminally investigate or prosecute any alcohol or drug abuse patient.[facility] HospitalIn the event this information is protected by the Federal Confidentiality of Alcohol and Drug Abuse Patient Records regulations: The Federal rules restrict any use of the information to criminally investigate or prosecute any alcohol or drug abuse patient.[facility] HospitalIn the event this information is protected by the Federal Confidentiality of Alcohol and Drug Abuse Patient Records regulations: The Federal rules restrict any use of the information to criminally investigate or prosecute any alcohol or drug abuse patient.[facility] HospitalIn the event this information is protected by the Federal Confidentiality of Alcohol and Drug Abuse Patient Records regulations: The Federal rules restrict any use of the information to criminally investigate or prosecute any alcohol or drug abuse patient.[facility] HospitalIn the event this information is protected by the Federal Confidentiality of Alcohol and Drug Abuse Patient Records regulations: The Federal rules restrict any use of the information to criminally investigate or prosecute any alcohol or drug abuse patient.[facility] HospitalIn the event this information is protected by the Federal Confidentiality of Alcohol and Drug Abuse Patient Records regulations: The Federal rules restrict any use of the information to criminally investigate or prosecute any alcohol or drug abuse patient.[facility] HospitalIn the event this information is protected by the Federal Confidentiality of Alcohol and Drug Abuse Patient Records regulations: The Federal rules restrict any use of the information to criminally investigate or prosecute any alcohol or drug abuse patient.[facility] HospitalIn the event this information is protected by the Federal Confidentiality of Alcohol and Drug Abuse Patient Records regulations: The Federal rules restrict any use of the information to criminally investigate or prosecute any alcohol or drug abuse patient.[facility] HospitalIn the event this information is protected by the Federal Confidentiality of Alcohol and Drug Abuse Patient Records regulations: The Federal rules restrict any use of the information to criminally investigate or prosecute any alcohol or drug abuse patient.[facility] HospitalIn the event this information is protected by the Federal Confidentiality of Alcohol and Drug Abuse Patient Records regulations: The Federal rules restrict any use of the information to criminally investigate or prosecute any alcohol or drug abuse patient.[facility] HospitalIn the event this information is protected by the Federal Confidentiality of Alcohol and Drug Abuse Patient Records regulations: The Federal rules restrict any use of the information to criminally investigate or prosecute any alcohol or drug abuse patient.[facility] HospitalIn the event this information is protected by the Federal Confidentiality of Alcohol and Drug Abuse Patient Records regulations: The Federal rules restrict any use of the information to criminally investigate or prosecute any alcohol or drug abuse patient.[facility] HospitalIn the event this information is protected by the Federal Confidentiality of Alcohol and Drug Abuse Patient Records regulations: The Federal rules restrict any use of the information to criminally investigate or prosecute any alcohol or drug abuse patient.[facility] HospitalIn the event this information is protected by the Federal Confidentiality of Alcohol and Drug Abuse Patient Records regulations: The Federal rules restrict any use of the information to criminally investigate or prosecute any alcohol or drug abuse patient.[facility] HospitalIn the event this information is protected by the Federal Confidentiality of Alcohol and Drug Abuse Patient Records regulations: The Federal rules restrict any use of the information to criminally investigate or prosecute any alcohol or drug abuse patient.[facility] HospitalIn the event this information is protected by the Federal Confidentiality of Alcohol and Drug Abuse Patient Records regulations: The Federal rules restrict any use of the information to criminally investigate or prosecute any alcohol or drug abuse patient.[facility] HospitalIn the event this information is protected by the Federal Confidentiality of Alcohol and Drug Abuse Patient Records regulations: The Federal rules restrict any use of the information to criminally investigate or prosecute any alcohol or drug abuse patient.[facility] HospitalIn the event this information is protected by the Federal Confidentiality of Alcohol and Drug Abuse Patient Records regulations: The Federal rules restrict any use of the information to criminally investigate or prosecute any alcohol or drug abuse patient.[facility] HospitalIn the event this information is protected by the Federal Confidentiality of Alcohol and Drug Abuse Patient Records regulations: The Federal rules restrict any use of the information to criminally investigate or prosecute any alcohol or drug abuse patient.[facility] HospitalIn the event this information is protected by the Federal Confidentiality of Alcohol and Drug Abuse Patient Records regulations: The Federal rules restrict any use of the information to criminally investigate or prosecute any alcohol or drug abuse patient.[facility] HospitalIn the event this information is protected by the Federal Confidentiality of Alcohol and Drug Abuse Patient Records regulations: The Federal rules restrict any use of the information to criminally investigate or prosecute any alcohol or drug abuse patient.[facility] HospitalIn the event this information is protected by the Federal Confidentiality of Alcohol and Drug Abuse Patient Records regulations: The Federal rules restrict any use of the information to criminally investigate or prosecute any alcohol or drug abuse patient.[facility] HospitalIn the event this information is protected by the Federal Confidentiality of Alcohol and Drug Abuse Patient Records regulations: The Federal rules restrict any use of the information to criminally investigate or prosecute any alcohol or drug abuse patient.[facility] HospitalIn the event this information is protected by the Federal Confidentiality of Alcohol and Drug Abuse Patient Records regulations: The Federal rules restrict any use of the information to criminally investigate or prosecute any alcohol or drug abuse patient.[facility] HospitalIn the event this information is protected by the Federal Confidentiality of Alcohol and Drug Abuse Patient Records regulations: The Federal rules restrict any use of the information to criminally investigate or prosecute any alcohol or drug abuse patient.[facility] HospitalIn the event this information is protected by the Federal Confidentiality of Alcohol and Drug Abuse Patient Records regulations: The Federal rules restrict any use of the information to criminally investigate or prosecute any alcohol or drug abuse patient.[facility] HospitalIn the event this information is protected by the Federal Confidentiality of Alcohol and Drug Abuse Patient Records regulations: The Federal rules restrict any use of the information to criminally investigate or prosecute any alcohol or drug abuse patient.[facility] HospitalIn the event this information is protected by the Federal Confidentiality of Alcohol and Drug Abuse Patient Records regulations: The Federal rules restrict any use of the information to criminally investigate or prosecute any alcohol or drug abuse patient.[facility] HospitalIn the event this information is protected by the Federal Confidentiality of Alcohol and Drug Abuse Patient Records regulations: The Federal rules restrict any use of the information to criminally investigate or prosecute any alcohol or drug abuse patient.[facility] HospitalIn the event this information is protected by the Federal Confidentiality of Alcohol and Drug Abuse Patient Records regulations: The Federal rules restrict any use of the information to criminally investigate or prosecute any alcohol or drug abuse patient.[facility] HospitalIn the event this information is protected by the Federal Confidentiality of Alcohol and Drug Abuse Patient Records regulations: The Federal rules restrict any use of the information to criminally investigate or prosecute any alcohol or drug abuse patient.[facility] HospitalIn the event this information is protected by the Federal Confidentiality of Alcohol and Drug Abuse Patient Records regulations: The Federal rules restrict any use of the information to criminally investigate or prosecute any alcohol or drug abuse patient.[facility] HospitalIn the event this information is protected by the Federal Confidentiality of Alcohol and Drug Abuse Patient Records regulations: The Federal rules restrict any use of the information to criminally investigate or prosecute any alcohol or drug abuse patient.[facility] HospitalIn the event this information is protected by the Federal Confidentiality of Alcohol and Drug Abuse Patient Records regulations: The Federal rules restrict any use of the information to criminally investigate or prosecute any alcohol or drug abuse patient.[facility] HospitalIn the event this information is protected by the Federal Confidentiality of Alcohol and Drug Abuse Patient Records regulations: The Federal rules restrict any use of the information to criminally investigate or prosecute any alcohol or drug abuse patient.[facility] HospitalIn the event this information is protected by the Federal Confidentiality of Alcohol and Drug Abuse Patient Records regulations: The Federal rules restrict any use of the information to criminally investigate or prosecute any alcohol or drug abuse patient.[facility] HospitalIn the event this information is protected by the Federal Confidentiality of Alcohol and Drug Abuse Patient Records regulations: The Federal rules restrict any use of the information to criminally investigate or prosecute any alcohol or drug abuse patient.[facility] HospitalIn the event this information is protected by the Federal Confidentiality of Alcohol and Drug Abuse Patient Records regulations: The Federal rules restrict any use of the information to criminally investigate or prosecute any alcohol or drug abuse patient.[facility] HospitalIn the event this information is protected by the Federal Confidentiality of Alcohol and Drug Abuse Patient Records regulations: The Federal rules restrict any use of the information to criminally investigate or prosecute any alcohol or drug abuse patient.[facility] HospitalIn the event this information is protected by the Federal Confidentiality of Alcohol and Drug Abuse Patient Records regulations: The Federal rules restrict any use of the information to criminally investigate or prosecute any alcohol or drug abuse patient.[facility] HospitalIn the event this information is protected by the Federal Confidentiality of Alcohol and Drug Abuse Patient Records regulations: The Federal rules restrict any use of the information to criminally investigate or prosecute any alcohol or drug abuse patient.[facility] HospitalIn the event this information is protected by the Federal Confidentiality of Alcohol and Drug Abuse Patient Records regulations: The Federal rules restrict any use of the information to criminally investigate or prosecute any alcohol or drug abuse patient.[facility] HospitalIn the event this information is protected by the Federal Confidentiality of Alcohol and Drug Abuse Patient Records regulations: The Federal rules restrict any use of the information to criminally investigate or prosecute any alcohol or drug abuse patient.[facility] HospitalIn the event this information is protected by the Federal Confidentiality of Alcohol and Drug Abuse Patient Records regulations: The Federal rules restrict any use of the information to criminally investigate or prosecute any alcohol or drug abuse patient.[facility] HospitalIn the event this information is protected by the Federal Confidentiality of Alcohol and Drug Abuse Patient Records regulations: The Federal rules restrict any use of the information to criminally investigate or prosecute any alcohol or drug abuse patient.[facility] HospitalIn the event this information is protected by the Federal Confidentiality of Alcohol and Drug Abuse Patient Records regulations: The Federal rules restrict any use of the information to criminally investigate or prosecute any alcohol or drug abuse patient.[facility] HospitalIn the event this information is protected by the Federal Confidentiality of Alcohol and Drug Abuse Patient Records regulations: The Federal rules restrict any use of the information to criminally investigate or prosecute any alcohol or drug abuse patient.[facility] HospitalIn the event this information is protected by the Federal Confidentiality of Alcohol and Drug Abuse Patient Records regulations: The Federal rules restrict any use of the information to criminally investigate or prosecute any alcohol or drug abuse patient.[facility] HospitalIn the event this information is protected by the Federal Confidentiality of Alcohol and Drug Abuse Patient Records regulations: The Federal rules restrict any use of the information to criminally investigate or prosecute any alcohol or drug abuse patient.[facility] HospitalIn the event this information is protected by the Federal Confidentiality of Alcohol and Drug Abuse Patient Records regulations: The Federal rules restrict any use of the information to criminally investigate or prosecute any alcohol or drug abuse patient.[facility] HospitalIn the event this information is protected by the Federal Confidentiality of Alcohol and Drug Abuse Patient Records regulations: The Federal rules restrict any use of the information to criminally investigate or prosecute any alcohol or drug abuse patient.[facility] HospitalIn the event this information is protected by the Federal Confidentiality of Alcohol and Drug Abuse Patient Records regulations: The Federal rules restrict any use of the information to criminally investigate or prosecute any alcohol or drug abuse patient.[facility] HospitalIn the event this information is protected by the Federal Confidentiality of Alcohol and Drug Abuse Patient Records regulations: The Federal rules restrict any use of the information to criminally investigate or prosecute any alcohol or drug abuse patient.[facility] HospitalIn the event this information is protected by the Federal Confidentiality of Alcohol and Drug Abuse Patient Records regulations: The Federal rules restrict any use of the information to criminally investigate or prosecute any alcohol or drug abuse patient.[facility] HospitalIn the event this information is protected by the Federal Confidentiality of Alcohol and Drug Abuse Patient Records regulations: The Federal rules restrict any use of the information to criminally investigate or prosecute any alcohol or drug abuse patient.[facility] HospitalIn the event this information is protected by the Federal Confidentiality of Alcohol and Drug Abuse Patient Records regulations: The Federal rules restrict any use of the information to criminally investigate or prosecute any alcohol or drug abuse patient.[facility] HospitalIn the event this information is protected by the Federal Confidentiality of Alcohol and Drug Abuse Patient Records regulations: The Federal rules restrict any use of the information to criminally investigate or prosecute any alcohol or drug abuse patient.[facility] HospitalIn the event this information is protected by the Federal Confidentiality of Alcohol and Drug Abuse Patient Records regulations: The Federal rules restrict any use of the information to criminally investigate or prosecute any alcohol or drug abuse patient.[facility] HospitalIn the event this information is protected by the Federal Confidentiality of Alcohol and Drug Abuse Patient Records regulations: The Federal rules restrict any use of the information to criminally investigate or prosecute any alcohol or drug abuse patient.[facility] HospitalIn the event this information is protected by the Federal Confidentiality of Alcohol and Drug Abuse Patient Records regulations: The Federal rules restrict any use of the information to criminally investigate or prosecute any alcohol or drug abuse patient.[facility] HospitalIn the event this information is protected by the Federal Confidentiality of Alcohol and Drug Abuse Patient Records regulations: The Federal rules restrict any use of the information to criminally investigate or prosecute any alcohol or drug abuse patient.[facility] HospitalIn the event this information is protected by the Federal Confidentiality of Alcohol and Drug Abuse Patient Records regulations: The Federal rules restrict any use of the information to criminally investigate or prosecute any alcohol or drug abuse patient.[facility] Reason for Visit (unrecogniz ed section and [...] EVAL Specialty Diagnoses / Procedures Referred By Contac t Referred To Contact Occupational Therapy / OCCUPATIONAL THERAPY Diagnoses Parkinson's disease driving eval gold dasia Procedures NEW OT COMM REINTEGRATION Gold Colon PA-C [address] [facility] [address] [place] [address] Mary You OT/L Referral ID Status Reason Start Date Expiration Date V isits Requested Visits Authorized [id number] Authorized 11/18/2022 11/17/2023 99 99 Reason Comments Outside [id number] Ordered Imaging Reason Comments Consult General Surgery [...] type Procedures CONSULT TO GENERAL SURGERY OFFICE/OUTPATIENT [facility] MDM 60-74 MINUTES Ez Solitario MD [address] [place] [address] Referral ID Status Reason Start Date Expiration Date V isits Requested Visits Authorized [id number] Closed PCP Requested Referral 10/04/2023 10/03/2024 1 [...] CONSULT TO PHYSICAL THERAPY PHYSICAL THERAPY EVALUATION [facility] 45 MINS Edna Umanzor APRN.HOME CARE GIVER [address] [place] [address] Meño Phillip, PT [address] [place] [address] Referral ID Status Reason Start Date Expiration Date Visits Requested Visits Authorized [id number] Authorized PCP Requested Referral Auto-Generate d Referral [...] Comments Abstract Neurology OV Reason Comments Abstract [facility] admission Care Teams (unrecognized sec tion and content) Passenger Brakeman Relationship Specialty Start Date End Date Ez Solitario MD [address] [place] [id number] PCP - General Family Practice 02/07/16 Passenger Brakeman Relationship Specialty Start Date End Date Ez Solitario MD [address] [place] [address] PCP - General Family Practice 02/07/16 Passenger Brakeman Relationship Specialty Start Date End Date Ez Solitario MD [address] [place] [address] PCP - General Family Practice 02/07/16 Passenger Brakeman Relationship Specialty Start Date End Date Ez Solitario MD [address] [place] [address] PCP - General Family Practice 02/07/16 Passenger Brakeman Relationship Specialty Start Date End Date Ez Solitario MD [address] [place] [address] PCP - General Family Practice 02/07/16 Passenger Brakeman Relationship Specialty Start Date End Date Ez Solitario MD [address] [place] [address] PCP - General Family Medicine 02/07/16 Passenger Brakeman Relationship Specialty Start Date End Date Ez Solitario MD [address] [place] [address] PCP - General Family Medicine 02/07/16 Passenger Brakeman Relationship Specialty Start Date End Date Ez Solitario MD [address] [place] [address] PCP - General Family Medicine 02/07/16 Team Status: Active Member Role Status Dates Dr. Ez Solitario MD Family Provider Active Dr. Ez Solitario MD Primary Care Provider Active Team Status: Inactive Member Role Status Dates Dr. Ez Solitario MD Primary Care Provider Active Dr. Elio Serrato MD Attending Provider, Referring Pro vider Active Passenger Brakeman Relationship Specialty Start Date End Date Ez Solitario MD [address] [place] [address] PCP - General Family Medicine 02/07/16 Passenger Brakeman Relationship Specialty Start Date End Date Ez Solitario MD [address] [place] [address] PCP - General Family Medicine 02/07/16 Passenger Brakeman Relationship Specialty Start Date End Date Ez Solitario MD [address] [place] [address] PCP - General Family Medicine 02/07/16 Passenger Brakeman Relationship Specialty Start Date End Date Ez Solitario MD [address] [place] [address] PCP - General Family Medicine 02/07/16 Passenger Brakeman Relationship Specialty Start Date End Date Ez Solitario MD [address] [place] [address] PCP - General Family Medicine 02/07/16 Passenger Brakeman Relationship Specialty Start Date End Date Ez Solitario MD [address] [facility] [place] [address] PCP - General Family Medicine 02/07/16 Passenger Brakeman Relationship Specialty Start Date End Date Ez Solitario MD [address] [place] [address] PCP - General Family Medicine 02/07/16 Passenger Brakeman Relationship Specialty Start Date End Date Ez Solitario MD [address] [place] [address] PCP - General Family Medicine 02/07/16 Passenger Brakeman Relationship Specialty Start Date End Date Ez Solitario MD [address] [place] [address] PCP - General Family Medicine 02/07/16 Passenger Brakeman Relationship Specialty Start Date End Date Ez Solitario MD [address] [place] [address] PCP - General Family Medicine 02/07/16 Passenger Brakeman Relationship Specialty Start Date End Date Ez Solitario MD [address] [place] [address] PCP - General Family Medicine 02/07/16 Passenger Brakeman Relationship Specialty Start Date End Date Ez Solitario MD [address] [place] [address] PCP - General Family Medicine 02/07/16 Team Status: Inactive Member Role Status Dates Dr. Ez Solitario MD Primary Care Provider Active Dr. Milton Iglesias MD Emergency Provider Active Team Status: Active Member Role Status Dates Dr. Ez Solitario MD Primary Care Provider Active Dr. Vladislav Crawford DO Emergency Provider Active Dr. Esme Andre MD Attending Kristali jessica, Referring Provider, Other Provider Active Team Status: Active Member Role Status Dates Dr. Ez Solitario MD Primary Care Provider Active Dr. Vladislav Crawford DO Emergency Provider Active Dr. Esme Andre MD Attending Provider, Referring Provider Active Passenger Brakeman Relationship Specialty Start Date End Date Ez Solitario MD [address] [place] [address] PCP - General Family Medicine 02/07/16 Team [...] Iglesias MD Attending Provider, Emergency Provider Active Passenger Brakeman Relationship Specialty Start Date End Date Ez Solitario MD [address] [place] [address] PCP - General Family Medicine 02/07/16 Passenger Brakeman Relationship Specialty Start Date End Date Ez Solitario MD [address] [place], [place] [address] PCP - General Family Medicine 02/07/16 Passenger Brakeman Relationship Specialty Start Date End Date Ez Solitario MD [address] [place] [address] PCP - General Family Medicine 02/07/16 Passenger Brakeman Relationship Specialty Start Date End Date Ez Solitario MD [address] [place] [address] PCP - General Family Medicine 02/07/16 Passenger Brakeman Relationship Specialty Start Date End Date Ez Solitario MD [address] [place] [address] PCP - General Family Medicine 02/07/16 Passenger Brakeman Relationship Specialty Start Date End Date Ez Solitario MD [address] [place] [address] PCP - General Family Medicine 02/07/16 Passenger Brakeman Relationship Specialty Start Date End Date Ez Solitario MD [address] [place] [address] PCP - General Family Medicine 02/07/16 Passenger Brakeman Relationship Specialty Start Date End Date Ez Solitario MD [address] [place] [address] PCP - General Family Medicine 02/07/16 Passenger Brakeman Relationship Specialty Start Date End Date Ez Solitario MD [address] [place] [address] PCP - General Family Medicine 02/07/16 Passenger Brakeman Relationship Specialty Start Date End Date Ez Solitario MD [address] [place] [address] PCP - General Family Medicine 02/07/16 Passenger Brakeman Relationship Specialty Start Date End Date Ez Solitario MD [address] [place] [address] PCP - General Family Medicine 02/07/16 Passenger Brakeman Relationship Specialty Start Date End Date Ez Solitario MD [address] [place] [address] PCP - General Family Medicine 02/07/16 Passenger Brakeman Relationship Specialty Start Date End Date Ez Solitario MD [address] [place] [address] PCP - General Family Medicine 02/07/16 Passenger Brakeman Relationship Specialty Start Date End Date zE Solitario MD [address] [place] [address] PCP - General Family Medicine 02/07/16 Passenger Brakeman Relationship Specialty Start Date End Date Ez Solitario MD [address] [place] [address] PCP - General Family Medicine 02/07/16 Passenger Brakeman Relationship Specialty Start Date End Date Ez Solitario MD [address] [place] [address] PCP - General Family Medicine 02/07/16 Passenger Brakeman Relationship Specialty Start Date End Date Ez Solitario MD [address] [place] [address] PCP - General Family Medicine 02/07/16 Passenger Brakeman Relationship Specialty Start Date End Date Ez Solitario MD [address] [place] [address] PCP - General Family Medicine 02/07/16 Passenger Brakeman Relationship Specialty Start Date End Date Ez Solitario MD [address] [place] [address] PCP - General Family Medicine 02/07/16 Passenger Brakeman Relationship Specialty Start Date End Date Ez Solitario MD [address] [place] [address] PCP - General Family Medicine 02/07/16 Edna Umanzor, GENIE.HOME CARE GIVER [address] [place] [address] Fire Support Specialist Family Medicine 10/24/24 Lauren Camacho PA-C [address] [place] [address] Fire Support Specialist Family Medicine 10/24/24 Passenger Brakeman Relationship Specialty Start Date End Date Ez Solitario MD [address] [place] [address] PCP - General Family Medicine 02/07/16 Edna Umanzor, SHELLFISH HARVESTER.HOME CARE GIVER [address] [place] [address] Fire Support Specialist Family Medicine 10/24/24 Lauren Camacho PA-C [address] [place] [address] Fire Support Specialist Family Medicine 10/24/24 Passenger Brakeman Relationship Specialty Start Date End Date Ez Solitario MD [address] [place] [address] PCP - General Family Medicine 02/07/16 Edna Umanzor, SHELLFISH HARVESTER.HOME CARE GIVER [address] [place] [address] Fire Support Specialist Family Medicine 10/24/24 Lauren Camacho PA-C [address] [facility] [place] [address] Fire Support Specialist Family Medicine 10/24/24 Passenger Brakeman Relationship Specialty Start Date End Date Ez Solitario MD [address] [facility] [place] [address] PCP - General Family Medicine 02/07/16 Edna Umanzor APRN.HOME CARE GIVER [address] [place] [address] Fire Support Specialist Family Medicine 10/24/24 Lauren Camacho PA-C [address] [place] [address] Fire Support Specialist Family Medicine 10/24/24 Passenger Brakeman Relationship Specialty Start Date End Date Ez Solitario MD [address] [place] [address] PCP - General Family Medicine 02/07/16 Edna Umanzor, GENIE.HOME CARE GIVER [address] [place] [address] Fire Support Specialist Family Medicine 10/24/24 Lauren Camacho PA-C [address] [facility] [place] [address] Fire Support Specialist Family Medicine 10/24/24 Passenger Brakeman Relationship Specialty Start Date End Date Ez Solitario MD [address] [facility] [place] [address] PCP - General Family Medicine 02/07/16 Edna Umanzor APRN.HOME CARE GIVER [address] [place] [address] Fire Support Specialist Family Medicine 10/24/24 Lauren Caamcho PA-C [address] [place] [address] Fire Support Specialist Family Medicine 10/24/24 Passenger Brakeman Relationship Specialty Start Date End Date Ez Solitario MD [address] [place] [address] PCP - General Family Medicine 02/07/16 Edna Umanzor APRN.HOME CARE GIVER [address] [place] [address] Fire Support Specialist Family Medicine 10/24/24 Lauren Camacho PA-C [address] [place] [address] Fire Support Specialist Family Medicine 10/24/24 Passenger Brakeman Relationship Specialty Start Date End Date Ez Solitario MD [address] [place] [address] PCP - General Family Medicine 02/07/16 Edna Umanzor APRN.HOME CARE GIVER [address] [place] [address] Fire Support Specialist Family Medicine 10/24/24 Lauren Camacho PA-C [address] [place] [address] Fire Support Specialist Family Medicine 10/24/24 Passenger Brakeman Relationship Specialty Start Date End Date Ez Solitario MD [address] [place] [address] PCP - General Family Medicine 02/07/16 Edna Umanzor, SHELLFISH HARVESTER.HOME CARE GIVER [address] [place] [address] Fire Support Specialist Family Medicine 10/24/24 Lauren Camacho PA-C [address] [place] [address] Fire Support Specialist Family Medicine 10/24/24 Passenger Brakeman Relationship Specialty Start Date End Date Ez Solitario MD [address] [place] [address] PCP - General Family Medicine 02/07/16 Edna Umanzor APRN.HOME CARE GIVER [address] [place] [address] Fire Support Specialist Family Medicine 04/19/25 Lauren Camacho PA-C [address] [place] [address] [facility] Passenger Brakeman Relationship Specialty Start Date End Date Ez Solitario MD [address] [place] [address] PCP - General Family Medicine 02/07/16 Edna Umanzor, SHELLFISH HARVESTER.HOME CARE GIVER [address] [place] [address] Fire Support Specialist Family Medicine 04/19/25 Lauren Camacho PA-C [address] [place] [address] Fire Support Specialist Family Medicine 04/19/25 Team Status: Active Member Role/Relationship Status [...] BE BASED ON THE PRIMARY CLINICAL RECORDS. [employer] [facility]. provides no warranty or guarantee of the accuracy or completeness of information in this document.
[2025-09-14 08:37] LABS: Hematocrit 37.0 % (37-47); Hemoglobin 12.0 g/dL (12.0-15.0); Immature Granulocytes Count 0.030 X10^3/uL (0.0-0.0); Mean Corp Hgb Conc 32.4 g/dL (32-36); Mean Corpuscular Volume 88.3 fL (81-99); Mean Platelet Vol. 11.5 fl (6.2-12.0); NRBC Flagged by Analyzer 0 % (0-5); Platelet Count 316 K/mm3 (150-450); RBC Distribution Width CV 13.1 % (11.6-14.6); RBC Distribution Width SD 42.3 fl (35.1-43.9); Red Blood Count 4.19 M/mm3 (4.2-5.4); White Blood Count 8.9 K/mm3 (4.4-11.0)
[2025-09-14 09:15] LABS: Anion Gap 11 (5-15); BUN 15 mg/dL (4-19); BUN/Creat Ratio 16.1 RATIO (10-20); Calcium,Total 10.4 mg/dL (7.6-11.0); Carbon Dioxide 25.9 mmol/L (21.0-32.0); Chloride 101 mmol/L (98-108); Glucose 101 mg/dL (70-99); Potassium 4.3 mmol/L (3.3-5.1)
== END ==
LOC: OLS.SW 05:00
PROVIDERS: PCP Family Medicine; Visit Provider Internal Medicine
DX: I10 Essential (primary) hypertension (principal)
CPT/HCPCS: 36415; 80048; 85025

== ENCOUNTER → 2025-11-16 05:00 | Outpatient (REF) | payer MEDICARE, BC, SELFPAY ==
--- OUTSIDE RECORDS SUMMARY | 2025-11-16 04:56 | XMS RPT_ITS | CCD ---
Author Organization [facility] Care Team Providers Care Machine Bander And Cellophaner Helper Name Role Phone Ez Solitario MD Primary Care Provider Dr. Ez Solitario Primary Care Provider Dr. Vladislav Crawford Emergency Provider Dr. Esme Andre Attending Provider Dr. Esme Andre Referring Provider Dr. Esme Andre Other Provider Ez Solitario MD Primary Care Provider Dr. Esme Andre Admit Provider Dr. Ishaan Olson Attending Provider EZ SOLITARIO MD Primary Care Physician [phone] ELIO SERRATO MD Attending Unavailable EZ SOLITARIO MD Primary Care Unavailable Ez Solitario MD Primary Care Provider Manny TEA TREE FARMER.CONNIE, Radha Unavailable Lauren Camacho PA-C Unavailable MARY YOU Attending Unavailable GOLD COLON Referring Unavailable EZ SOLITARIO Primary Care Unavailable Radha Bryant APRN.CNP Unavailable Lauren Camacho PA-C Unavailable Dr. Ez Solitario MD Primary Care Provider Dr. Shaji Rosales MD Emergency Provider Dr. Davin Kirkland MD Admit Provider Unavailable Dr. Davin Kirkland MD Attending Provider Unavaila Dr. Davin Nix MD Other Provider Unavailable LAUREN CAMACHO Referring Unavailable ALTAF, EZ A Primary Care Unavailable LAUREN CAMACHO Referring Unavailable ALTAF, EZ A Primary Care Unavailable ALTAF, EZ A Referring Unavailable ALTAF, EZ A Primary Care Unavailable MARY ORTIZ Attending Unavailable ALTAF, EZ A Primary Care Unavailable LAUREN CAMACHO Attending Unavailable SELF Referring Unavailable SHAJI SOLITARIOREY A Primary Care Unavailable ALTAF, EZ A Referring Unavailable ALTAF, EZ A Primary Care Unavailable LAURNE CAMACHO Attending Unavailable ALTAF, EZ A Primary Care Unavailable Altaf, Ez Primary Care Unavailable Davin Kirkland Consulting Unavailable Davin Kirkland Attending Unavailable Davin Kirkland Admitting Unavailable Matilda Manzanares Attending Unavailable Altaf, Ez Primary Care Unavailable Altaf, Ez Primary Care Unavailable Gold Colon Attending Unavailable JenaroightGold Referring Unavailable Altaf, Ez Primary Care Unavailable JenaroightGold Attending Unavailable Jenaroight, Gold Referring Unavailable Matilda Manzanares Attending Unavailable Altaf, Ez Primary Care Unavailable Altaf, Ez Primary Care Unavailable Davin Kirkland Admitting Unavailable Davin Kirkland Attending Unavailable Matilda Manzanares Attending Unavailable Altaf, Ez Primary Care Unavailable Matilda Manzanares Attending Unavailable Altaf Ez Primary Care Unavailable Allergies Allergy Classification Reported Allergen(s) Allergy Type Date of Onset Reaction(s) Facility (20 sources) Codeine; Translations: [CODEINE] Drug Allergy 6 Intolerance [facility] Work Phone: (20 sources) Povidone-Iodine; Translations: [POVIDONE-IODINE ] Drug Allergy 7 Rash [facility] Work Phone: (20 sources) busPIRone; Translations: [BUSPIRONE] Drug Allergy 3 Other: See Comments [facility] Work Phone: (1 source) Codeine Drug Allergy 3 [facility] Repository Medications Current Medications Medication Drug Class(es) [...] two times a day. Per Neurology at [facility] 10/01/2023 Active Start: 07-20-2016 End: 10-01-2023 take 1 mg by mouth twice daily Benztropine 2 MG tablet Active 1 mg PO TWICE A DAY July 20, 2016 12:00am [place] Start: 07-20-2016 take 1 mg by mouth twice daily Benztropine Active 1 MG PO TWICE A DAY July 20, 2016 12:00am Comment on above: Take 1 tablet by julia twice daily. Per Neurology at [facility] Take 0.5 tablets by mouth two times a day. Per Neurology at [facility] bisacodyl 10 mg rectal suppository (2 sources) [...] take 1 tablet by mouth once daily bzoluoq-vofsagxiz-ss tamin D3 (CALCIUM 500+D) 500 mg-5 mcg [...] of 30mg daily, getting from Neurology at [facility] Take 1 tablet by julia th daily at bedtime. Take with 10mg dose for total of 30mg daily. Per neurology at [facility] diphenhydrAMINE hydrochloride 25 mg oral capsule (20 [...] Comment on above: Take 1 tablet by ujlia th every other day. folic acid 1 [...] oral tablet (1 source) beta-Adrenergic Titi Start: 10-03-2 023 Metoprolol Tartrate 25 mg Tablet Active 12.5 [...] Comment on above: Take 1 capsule by [facility] two times a day with meals for 7 days. omeprazole 40 mg delayed release oral capsule (20 sources) Proton Pump Inhibitor Start: 6 End: 5 take 1 capsule by mouth once daily Omeprazole 40 mg capsule,delayed release(DR/EC) Active 40 mg PO DAILY August 01, 2023 12:00am ACID REFLUX Comment on above: Take 1 capsule by [facility] once daily. perflutren lipid microspheres 1.3 mL [...] mg PO THREE TIMES A DAY 15 July 28, 2023 12:00am August 06, 2023 [...] julia th once daily. polyethylene glycol 3350 51153 mg powder for oral solution (20 sources) [...] by mouth once daily. Per Neurology at [facility] 07/28/2024 10/27/2024 Discontinued (Discontinued by another Health [...] blood loss fr om surgery. HGB at [place] is 9.4 Delirium, dementia, and amnestic and [...] site; Translations: [Myalgia] Onset: 5 Episodic Other connective tissue disease [...] increased after Mirapex was started. Parkinson`s disease (2 sources) Parkinson`s disease; Translations: [Parkinson's disease, unspecified whether dyskinesia present, unspecified whether manifestations fluctuate (HCC)] Onset: 1 Residual codes; unclassified (1 source) Edema of lower extremity; Translations: [Localized edema] Episodic Residual codes; unclassified (1 source) Peripheral edema; Translations: [Edema, unspecified] Episodic Residual codes; unclassified (5 sources) History of partial resection of colon; Translations: [Acquired absence of other specified parts of digestive tract] 08-02-2023 Episodic Comment on above: 08/01/23 at [facility] - Dr. 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 Chronic Urinary tract infections (4 sources) Urinary tract [...] (20 sources) Patient encounter status; Translations: [Other chcf (current) drug therapy] Onset: 02-07-2016 Episodic Other aftercare (1 source) Drug therapy finding; Translations: [Other terminal operations manager (current) drug therapy] Onset: 12-06-2016 12-09-2019 Episodic Other aftercare (1 source) Other terminal operations manager (current) drug therapy; Translations: [Medication management] Onset: [...] of right lower leg, initial encounter] Onset: 04-21-2025 04-22-2025 Episodic Results Test Name Value Interpretation Reference Range Facility [facility] 09-21-2025 CNCO Letter Text Normal [facility] Basic Metabolic Profile (BMP )on 09-14-2025 BUN/CRE 16.1 RATIO Normal 10-20 [facility] Comment on above: Order Comment: 510.1 Performed By: #### L 501.5200, L100.0100, L501.2300, L500.2500 #### [facility] [address] [place], [address] Calcium [Mass/Vol] 10.4 mg/dL Normal 7.6-11.0 [facility] Comment on above: Order Comment: 510.1 Performed By: #### L 501.5200, L100.0100, L501.2300, L500.2500 #### [facility] [address] [place], [address] Chloride [Moles/Vol] 101 mmol/L Normal 98-108 [facility] Comment on above: Order Comment: 510.1 Performed By: #### L 501.5200, L100.0100, L501.2300, L500.2500 #### [facility] [address] [place], [address] CO2 [Moles/Vol] 25.9 mmol/L Normal 21.0-32.0 [facility] Comment on above: Order Comment: 510.1 Performed By: #### L 501.5200, L100.0100, L501.2300, L500.2500 #### [facility] [address] [place], [address] Creatinine [Mass/Vol] 0.94 mg/dL Normal 0.70-1.20 [facility] Comment on above: Order Comment: 510.1 Performed By: #### L 501.5200, L100.0100, L501.2300, L500.2500 #### [facility] [address] [place], [address] GAP 11 Normal 5-15 [facility] Comment on above: Order Comment: 510.1 Performed By: #### L 501.5200, L100.0100, L501.2300, L500.2500 #### [facility] [address] [place], [address] GFR/1.73 sq M.predicted among non-blacks MDRD (S/P/Bld) [Vol rate/Area] 64 mL/min/{1.73_m2} Normal >60 [facility] Comment on above: Order Comment: 510.1 Result Comment: mL/m in/1.73m2 CKD-EPI Creatinine Equation (2020) Performed By: #### L 501.5200, L100.0100, L501.2300, L500.2500 #### [facility] [address] [place], [address] Glucose [Mass/Vol] 101 mg/dL High 70-99 [facility] Comment on above: Order Comment: 510.1 Performed By: #### L 501.5200, L100.0100, L501.2300, L500.2500 #### [facility] [address] [place], [address] Potassium [Moles/Vol] 4.3 mmol/L Normal 3.3-5.1 [facility] Comment on above: Order Comment: 510.1 Performed By: #### L 501.5200, L100.0100, L501.2300, L500.2500 #### [facility] [address] [place], [address] Sodium [Moles/Vol] 137 mmol/L Normal 133-145 [facility] Comment on above: Order Comment: 510.1 Performed By: #### L 501.5200, L100.0100, L501.2300, L500.2500 #### [facility] [address] [place], [address] Urea nitrogen [Mass/Vol] 15 mg/dL Normal 4-19 [facility] Comment on above: Order Comment: 510.1 Performed By: #### L 501.5200, L100.0100, L501.2300, L500.2500 #### [facility] [address] [place], [address] CBC W/Diff, Automatedon 10-2 -2024 Absolute Lymph 2.14 X10 3/uL Normal 0.83-4.51 [facility] Comment on above: Order Comment: 510.1 Performed By: #### L 100.0100, L500.2500 #### [facility] [address] [place], [address] Absolute Neut 5.8 X10 3/uL Normal 2.0-7.7 [facility] Comment on above: Order Comment: 510.1 Performed By: #### L 100.0100, L500.2500 #### [facility] [address] [place], [address] Basophils/100 WBC (Bld) 0.4 % Normal 0-1 [facility] Comment on above: Order Comment: 510.1 Performed By: #### L 100.0100, L500.2500 #### [facility] [address] [place], [address] Eosinophils/100 WBC (Bld) 2.0 % Normal 0-5 [facility] Comment on above: Order Comment: 510.1 Performed By: #### L 100.0100, L500.2500 #### [facility] [address] [place], [address] Erythrocyte distribution width (RBC) [Ratio] 13.1 % Normal 11.6-14.6 [facility] Comment on above: Order Comment: 510.1 Performed By: #### L 100.0100, L500.2500 #### [facility] [address] [place], [address] Hematocrit (Bld) [Volume fraction] 37.0 % Normal 37-47 [facility] Comment on above: Order Comment: 510.1 Performed By: #### L 100.0100, L500.2500 #### [facility] [address] [place], [address] Hemoglobin (Bld) [Mass/Vol] 12.0 g/dL Normal 12.0-15.0 [facility] Comment on above: Order Comment: 510.1 Performed By: #### L 100.0100, L500.2500 #### [facility] [address] [place], [address] IG% 0.300 Normal 0.0-0.9 [facility] Comment on above: Order Comment: 510.1 Result Comment: IG% - Immature Granulocytes (promyelocytes, myelocytes and metamyelocytes) > 1% indicates that a LEFT SHIFT is Present. Performed By: #### L 100.0100, L500.2500 #### [facility] [address] [place], [address] Lymphocytes/100 WBC (Bld) 24.0 % Normal 19-41 [facility] Comment on above: Order Comment: 510.1 Performed By: #### L 100.0100, L500.2500 #### [facility] [address] [place], [address] MCH (RBC) [Entitic mass] 28.6 pg Normal 27.0-32.0 [facility] Comment on above: Order Comment: 510.1 Performed By: #### L 100.0100, L500.2500 #### [facility] [address] [place], [address] MCHC (RBC) [Mass/Vol] 32.4 g/dL Normal 32-36 [facility] Comment on above: Order Comment: 510.1 Performed By: #### L 100.0100, L500.2500 #### [facility] [address] [place], [address] MCV (RBC) [Entitic vol] 88.3 fL Normal 81-99 [facility] Comment on above: Order Comment: 510.1 Performed By: #### L 100.0100, L500.2500 #### [facility] [address] [place], [address] Monocytes/100 WBC (Bld) 8.3 % Normal 0-10 [facility] Comment on above: Order Comment: 510.1 Performed By: #### L 100.0100, L500.2500 #### [facility] [address] [place], [address] Neutrophils/100 WBC (Bld) 65.0 % Normal 47-70 [facility] Comment on above: Order Comment: 510.1 Performed By: #### L 100.0100, L500.2500 #### [facility] [address] [place], [address] Nucleated RBC (Bld) [#/Vol] 0 10*3/uL Normal 0-5 [facility] Comment on above: Order Comment: 510.1 Performed By: #### L 100.0100, L500.2500 #### [facility] [address] [place], [address] Platelet mean volume (Bld) [Entitic vol] 11.5 fL Normal 6.2-12.0 [facility] Comment on above: Order Comment: 510.1 Performed By: #### L 100.0100, L500.2500 #### [facility] [address] [place], [address] Platelets (Bld) [#/Vol] 316 10*3/uL Normal 150-450 [facility] Comment on above: Order Comment: 510.1 Performed By: #### L 100.0100, L500.2500 #### [facility] [address] [place], [address] RBC (Bld) [#/Vol] 4.19 10*6/uL Low 4.2-5.4 [facility] Comment on above: Order Comment: 510.1 Performed By: #### L 100.0100, L500.2500 #### [facility] [address] [place], [address] RDW SD 42.3 fl Normal 35.1-43.9 [facility] Comment on above: Order Comment: 510.1 Performed By: #### L 100.0100, L500.2500 #### [facility] [address] [place], [address] WBC (Bld) [#/Vol] 8.9 10*3/uL Normal 4.4-11.0 [facility] Comment on above: Order Comment: 510.1 Performed By: #### L 100.0100, L500.2500 #### [facility] [address] [place], [address] CNOVon 08-23-2025 CNOV Office Visit (FAMPWS) PRASHANT SHEFFIELD ([id number]) 1950 F Date Time Provider Department 08/23/25 1:00 PM [facility] During your visit today, we recorded the following information about you: Temperature Pulse Respiration Blood pressure 98 degrees 56/minute 16/minute 106/66 Lauren Camacho PA-C 08/23/2025 2:34 PM Signed Chief Complaint Patient presents with: was discharged from [facility] on 08/20/25 and went to [facility] Prashant Vicky Sheffield is a 75 year old female who presents here today for Hospital Discharge Follow up.. Patient is here today with her sister, Moo. On 07/07 patient presented to ER due to pain and depressive symptoms. She was then admitted to a [facility] and then discharged from there to [facility]. Parkinson's Disease: - Recent hospitalization at [facility] in [place], [place], followed by a 30-day stay at [facility]. - Neurology follow-up scheduled for August 31. - Recent medication discrepancies noted: - Benztropine: Previously taking 0.5 mg BID; currently on 2 mg daily. - Pramipexole: Previously taking 1 mg BID; currently on 1 mg TID. - Citalopram: Previously on 30 mg daily; When she was disharged back to [facility], she is on lexapro 10mg. - Atorvastatin: [...] ibuprofen PRN. - Sister reports Prashant is still not herself. Past medical history, appointments, medications, allergies reviewed. Previous Medical History PAST MEDICAL HISTORY Diagnosis Date Alcohol use 02/07/2016 1-2 drinks a day. 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 Man in [facility] Stage 3a chronic kidney disease (HCC) [...] syndrome with her neuro meds. Codeine Intolerance crazy dreams does not like to take it Current [...] furosemide (LAS (more content not included)... Normal [facility] Basic Metabolic Profile (BMP )on 08-03-2025 BUN/CRE 13.2 RATIO Normal 10-20 [facility] Comment on above: Order Comment: 213.1 Performed By: #### L 297.9205, L100.0100, L501.2300, L500.2500 #### [facility] [address] [place], [address] Calcium [Mass/Vol] 10.0 mg/dL Normal 7.6-11.0 [facility] Comment on above: Order Comment: 213.1 Performed By: #### L 501.5200, L100.0100, L501.2300, L500.2500 #### [facility] [address] [place], [address] Chloride [Moles/Vol] 106 mmol/L Normal 98-108 [facility] Comment on above: Order Comment: 213.1 Performed By: #### L 501.5200, L100.0100, L501.2300, L500.2500 #### [facility] [address] [place], [address] CO2 [Moles/Vol] 25.4 mmol/L Normal 21.0-32.0 [facility] Comment on above: Order Comment: 213.1 Performed By: #### L 501.5200, L100.0100, L501.2300, L500.2500 #### [facility] [address] [place], [address] Creatinine [Mass/Vol] 0.97 mg/dL Normal 0.70-1.20 [facility] Comment on above: Order Comment: 213.1 Performed By: #### L 501.5200, L100.0100, L501.2300, L500.2500 #### [facility] [address] [place], [address] GAP 10 Normal 5-15 [facility] Comment on above: Order Comment: 213.1 Performed By: #### L 501.5200, L100.0100, L501.2300, L500.2500 #### [facility] [address] [place], [address] GFR/1.73 sq M.predicted among non-blacks MDRD (S/P/Bld) [Vol rate/Area] 61 mL/min/{1.73_m2} Normal >60 [facility] Comment on above: Order Comment: 213.1 Result Comment: mL/m in/1.73m2 CKD-EPI Creatinine Equation (2020) Performed By: #### L 501.5200, L100.0100, L501.2300, L500.2500 #### [facility] [address] [place], [address] Glucose [Mass/Vol] 93 mg/dL Normal 70-99 [facility] Comment on above: Order Comment: 213.1 Performed By: #### L 501.5200, L100.0100, L501.2300, L500.2500 #### [facility] [address] [place], [address] Potassium [Moles/Vol] 4.4 mmol/L Normal 3.3-5.1 [facility] Comment on above: Order Comment: 213.1 Performed By: #### L 501.5200, L100.0100, L501.2300, L500.2500 #### [facility] [address] [place], [address] Sodium [Moles/Vol] 141 mmol/L Normal 133-145 [facility] Comment on above: Order Comment: 213.1 Performed By: #### L 501.5200, L100.0100, L501.2300, L500.2500 #### [facility] [address] [place], [address] Urea nitrogen [Mass/Vol] 13 mg/dL Normal 4-19 [facility] Comment on above: Order Comment: 213.1 Performed By: #### L 501.5200, L100.0100, L501.2300, L500.2500 #### [facility] [address] [place], [address] CBC W/Diff, Automatedon 09-1 -2024 Absolute Lymph 2.17 X10 3/uL Normal 0.83-4.51 [facility] Comment on above: Order Comment: 213.1 Performed By: #### L 501.5200, L100.0100, L501.2300, L500.2500 #### [facility] [address] [place], [address] Absolute Neut 2.9 X10 3/uL Normal 2.0-7.7 [facility] Comment on above: Order Comment: 213.1 Performed By: #### L 501.5200, L100.0100, L501.2300, L500.2500 #### [facility] [address] [place], [address] Basophils/100 WBC (Bld) 0.8 % Normal 0-1 [facility] Comment on above: Order Comment: 213.1 Performed By: #### L 501.5200, L100.0100, L501.2300, L500.2500 #### [facility] [address] [place], [address] Eosinophils/100 WBC (Bld) 4.7 % Normal 0-5 [facility] Comment on above: Order Comment: 213.1 Performed By: #### L 501.5200, L100.0100, L501.2300, L500.2500 #### [facility] [address] [place], [address] Erythrocyte distribution width (RBC) [Ratio] 13.2 % Normal 11.6-14.6 [facility] Comment on above: Order Comment: 213.1 Performed By: #### L 501.5200, L100.0100, L501.2300, L500.2500 #### [facility] [address] [place], [address] Hematocrit (Bld) [Volume fraction] 35.0 % Low 37-47 [facility] Comment on above: Order Comment: 213.1 Performed By: #### L 501.5200, L100.0100, L501.2300, L500.2500 #### [facility] [address] [place], [address] Hemoglobin (Bld) [Mass/Vol] 11.4 g/dL Low 12.0-15.0 [facility] Comment on above: Order Comment: 213.1 Performed By: #### L 501.5200, L100.0100, L501.2300, L500.2500 #### [facility] [address] [place], [address] IG% 0.200 Normal 0.0-0.9 [facility] Comment on above: Order Comment: 213.1 Result Comment: IG% - Immature Granulocytes (promyelocytes, myelocytes and metamyelocytes) > 1% indicates that a LEFT SHIFT is Present. Performed By: #### L 501.5200, L100.0100, L501.2300, L500.2500 #### [facility] [address] [place], [address] Lymphocytes/100 WBC (Bld) 36.5 % Normal 19-41 [facility] Comment on above: Order Comment: 213.1 Performed By: #### L 501.5200, L100.0100, L501.2300, L500.2500 #### [facility] [address] [place], [address] MCH (RBC) [Entitic mass] 29.2 pg Normal 27.0-32.0 [facility] Comment on above: Order Comment: 213.1 Performed By: #### L 501.5200, L100.0100, L501.2300, L500.2500 #### [facility] [address] [place], [address] MCHC (RBC) [Mass/Vol] 32.6 g/dL Normal 32-36 [facility] Comment on above: Order Comment: 213.1 Performed By: #### L 501.5200, L100.0100, L501.2300, L500.2500 #### [facility] [address] [place], [address] MCV (RBC) [Entitic vol] 89.5 fL Normal 81-99 [facility] Comment on above: Order Comment: 213.1 Performed By: #### L 501.5200, L100.0100, L501.2300, L500.2500 #### [facility] [address] [place], [address] Monocytes/100 WBC (Bld) 9.6 % Normal 0-10 [facility] Comment on above: Order Comment: 213.1 Performed By: #### L 501.5200, L100.0100, L501.2300, L500.2500 #### [facility] [address] [place], [address] Neutrophils/100 WBC (Bld) 48.2 % Normal 47-70 [facility] [facility] Comment on above: Order Comment: 213.1 Performed By: #### L 501.5200, L100.0100, L501.2300, L500.2500 #### [facility] [address] [place], [address] Nucleated RBC (Bld) [#/Vol] 0 10*3/uL Normal 0-5 [facility] Comment on above: Order Comment: 213.1 Performed By: #### L 501.5200, L100.0100, L501.2300, L500.2500 #### [facility] [address] [place], [address] Platelet mean volume (Bld) [Entitic vol] 11.7 fL Normal 6.2-12.0 [facility] Comment on above: Order Comment: 213.1 Performed By: #### L 501.5200, L100.0100, L501.2300, L500.2500 #### [facility] [address] [place], [address] Platelets (Bld) [#/Vol] 228 10*3/uL Normal 150-450 [facility] Comment on above: Order Comment: 213.1 Performed By: #### L 501.5200, L100.0100, L501.2300, L500.2500 #### [facility] [address] [place], [address] RBC (Bld) [#/Vol] 3.91 10*6/uL Low 4.2-5.4 [facility] Comment on above: Order Comment: 213.1 Performed By: #### L 501.5200, L100.0100, L501.2300, L500.2500 #### [facility] [address] [place], [address] RDW SD 43.3 fl Normal 35.1-43.9 [facility] Comment on above: Order Comment: 213.1 Performed By: #### L 501.5200, L100.0100, L501.2300, L500.2500 #### [facility] [address] [place], [address] WBC (Bld) [#/Vol] 5.9 10*3/uL Normal 4.4-11.0 [facility] Comment on above: Order Comment: 213.1 Performed By: #### L 501.5200, L100.0100, L501.2300, L500.2500 #### [facility] [address] [place], [address] Basic Metabolic Profile (BMP )on 07-27-2025 BUN/CRE 11.2 RATIO Normal 10-20 [facility] Comment on above: Order Comment: 213.1 Performed By: #### L 501.5200, L100.0100, L501.2300, L500.2500 #### [facility] [address] [place], [address] Calcium [Mass/Vol] 9.9 mg/dL Normal 7.6-11.0 [facility] Comment on above: Order Comment: 213.1 Performed By: #### L 501.5200, L100.0100, L501.2300, L500.2500 #### [facility] [address] [place], [address] Chloride [Moles/Vol] 103 mmol/L Normal 98-108 [facility] Comment on above: Order Comment: 213.1 Performed By: #### L 501.5200, L100.0100, L501.2300, L500.2500 #### [facility] [address] [place], [address] CO2 [Moles/Vol] 25.4 mmol/L Normal 21.0-32.0 [facility] Comment on above: Order Comment: 213.1 Performed By: #### L 501.5200, L100.0100, L501.2300, L500.2500 #### [facility] [address] [place], [address] Creatinine [Mass/Vol] 0.94 mg/dL Normal 0.70-1.20 [facility] Comment on above: Order Comment: 213.1 Performed By: #### L 501.5200, L100.0100, L501.2300, L500.2500 #### [facility] [address] [place], [address] GAP 10 Normal 5-15 [facility] Comment on above: Order Comment: 213.1 Performed By: #### L 501.5200, L100.0100, L501.2300, L500.2500 #### [facility] [address] [place], [address] GFR/1.73 sq M.predicted among non-blacks MDRD (S/P/Bld) [Vol rate/Area] 64 mL/min/{1.73_m2} Normal >60 [facility] Comment on above: Order Comment: 213.1 Result Comment: mL/m in/1.73m2 CKD-EPI Creatinine Equation (2020) Performed By: #### L 501.5200, L100.0100, L501.2300, L500.2500 #### [facility] [address] [place], [address] Glucose [Mass/Vol] 101 mg/dL High 70-99 [facility] Comment on above: Order Comment: 213.1 Performed By: #### L 501.5200, L100.0100, L501.2300, L500.2500 #### [facility] [address] [place], [address] Potassium [Moles/Vol] 4.5 mmol/L Normal 3.3-5.1 [facility] Comment on above: Order Comment: 213.1 Performed By: #### L 501.5200, L100.0100, L501.2300, L500.2500 #### [facility] [address] [place], [address] Sodium [Moles/Vol] 139 mmol/L Normal 133-145 [facility] Comment on above: Order Comment: 213.1 Performed By: #### L 501.5200, L100.0100, L501.2300, L500.2500 #### [facility] [address] [place], [address] Urea nitrogen [Mass/Vol] 11 mg/dL Normal 4-19 [facility] Comment on above: Order Comment: 213.1 Performed By: #### L 501.5200, L100.0100, L501.2300, L500.2500 #### [facility] [address] [place], [address] CBC W/Diff, Automatedon 09-0 Absolute Lymph 1.56 X10 3/uL Normal 0.83-4.51 [facility] Comment on above: Order Comment: 213.1 Performed By: #### L 501.5200, L100.0100, L501.2300, L500.2500 #### [facility] [address] [place], [address] Absolute Neut 3.3 X10 3/uL Normal 2.0-7.7 [facility] Comment on above: Order Comment: 213.1 Performed By: #### L 501.5200, L100.0100, L501.2300, L500.2500 #### [facility] [address] [place], [address] Basophils/100 WBC (Bld) 0.7 % Normal 0-1 [facility] Comment on above: Order Comment: 213.1 Performed By: #### L 501.5200, L100.0100, L501.2300, L500.2500 #### [facility] [address] [place], [address] Eosinophils/100 WBC (Bld) 3.4 % Normal 0-5 [facility] Comment on above: Order Comment: 213.1 Performed By: #### L 501.5200, L100.0100, L501.2300, L500.2500 #### [facility] [address] [place], [address] Erythrocyte distribution width (RBC) [Ratio] 13.2 % Normal 11.6-14.6 [facility] Comment on above: Order Comment: 213.1 Performed By: #### L 501.5200, L100.0100, L501.2300, L500.2500 #### [facility] [address] [place], [address] Hematocrit (Bld) [Volume fraction] 36.3 % Low 37-47 [facility] Comment on above: Order Comment: 213.1 Performed By: #### L 501.5200, L100.0100, L501.2300, L500.2500 #### [facility] [address] [place], [address] Hemoglobin (Bld) [Mass/Vol] 11.4 g/dL Low 12.0-15.0 [facility] Comment on above: Order Comment: 213.1 Performed By: #### L 501.5200, L100.0100, L501.2300, L500.2500 #### [facility] [address] [place], [address] IG% 0.400 Normal 0.0-0.9 [facility] Comment on above: Order Comment: 213.1 Result Comment: IG% - Immature Granulocytes (promyelocytes, myelocytes and metamyelocytes) > 1% indicates that a LEFT SHIFT is Present. Performed By: #### L 501.5200, L100.0100, L501.2300, L500.2500 #### [facility] [address] [place], [address] Lymphocytes/100 WBC (Bld) 28.0 % Normal 19-41 [facility] Comment on above: Order Comment: 213.1 Performed By: #### L 501.5200, L100.0100, L501.2300, L500.2500 #### [facility] [address] [place], [address] MCH (RBC) [Entitic mass] 28.7 pg Normal 27.0-32.0 [facility] Comment on above: Order Comment: 213.1 Performed By: #### L 501.5200, L100.0100, L501.2300, L500.2500 #### [facility] [address] [place], [address] MCHC (RBC) [Mass/Vol] 31.4 g/dL Low 32-36 [facility] Comment on above: Order Comment: 213.1 Performed By: #### L 501.5200, L100.0100, L501.2300, L500.2500 #### [facility] [address] [place], [address] MCV (RBC) [Entitic vol] 91.4 fL Normal 81-99 [facility] Comment on above: Order Comment: 213.1 Performed By: #### L 501.5200, L100.0100, L501.2300, L500.2500 #### [facility] [address] [place], [address] Monocytes/100 WBC (Bld) 8.4 % Normal 0-10 [facility] Comment on above: Order Comment: 213.1 Performed By: #### L 501.5200, L100.0100, L501.2300, L500.2500 #### [facility] [address] [place], [address] Neutrophils/100 WBC (Bld) 59.1 % Normal 47-70 [facility] Comment on above: Order Comment: 213.1 Performed By: #### L 501.5200, L100.0100, L501.2300, L500.2500 #### [facility] [address] [place], [address] Nucleated RBC (Bld) [#/Vol] 0 10*3/uL Normal 0-5 [facility] Comment on above: Order Comment: 213.1 Performed By: #### L 501.5200, L100.0100, L501.2300, L500.2500 #### [facility] [address] [place], [address] Platelet mean volume (Bld) [Entitic vol] 11.9 fL Normal 6.2-12.0 [facility] Comment on above: Order Comment: 213.1 Performed By: #### L 501.5200, L100.0100, L501.2300, L500.2500 #### [facility] [address] [place], [address] Platelets (Bld) [#/Vol] 230 10*3/uL Normal 150-450 [facility] Comment on above: Order Comment: 213.1 Performed By: #### L 501.5200, L100.0100, L501.2300, L500.2500 #### [facility] [address] [place], [address] RBC (Bld) [#/Vol] 3.97 10*6/uL Low 4.2-5.4 [facility] Comment on above: Order Comment: 213.1 Performed By: #### L 501.5200, L100.0100, L501.2300, L500.2500 #### [facility] [address] [place], [address] RDW SD 43.5 fl Normal 35.1-43.9 [facility] Comment on above: Order Comment: 213.1 Performed By: #### L 501.5200, L100.0100, L501.2300, L500.2500 #### [facility] [address] [place], [address] WBC (Bld) [#/Vol] 5.6 10*3/uL Normal 4.4-11.0 [facility] Comment on above: Order Comment: 213.1 Performed By: #### L 501.5200, L100.0100, L501.2300, L500.2500 #### [facility] [address] [place], [address] Ferritinon 07-27-2025 Ferritin [Mass/Vol] 170 ng/mL Normal 22-378 [facility] Comment on above: Order Comment: 213.1 Performed By: #### L 501.5200, L100.0100, L501.2300, L500.2500 #### [facility] [address] [place], [address] Ironon 09-09-2025 Iron [Mass/Vol] 46 ug/dL Low 50-170 [facility] Comment on above: Order Comment: 213.1 Performed By: #### L 501.5200, L100.0100, L501.2300, L500.2500 #### [facility] [address] [place], [address] Thyroid Stim Hormone (TSH)on 07-27-2025 TSH 1.520 uIU/mL Normal 0.300-4.200 [facility] Comment on above: Order Comment: 213.1 Performed By: #### L 501.5200, L100.0100, L501.2300, L500.2500 #### [facility] [address] [place], [address] Vitamin B12on 07-27-2025 Cobalamin (Vitamin B12) [Mass/Vol] 925 pg/mL High 180-914 [facility] Comment on above: Order Comment: 213.1 Performed By: #### L 501.5200, L100.0100, L501.2300, L500.2500 #### [facility] [address] [place], [address] Vitamin D,25 Hydroxyon 07-27 Vitamin D 25-OH 30.2 ng/mL Normal 30-100 [facility] Comment on above: Order Comment: 213.1 Result Comment: Alexandra min D Status Deficiency: <20 ng/mL (50nmol/L) Insufficiency: 20-30 ng/mL (50-75 nmol/L) Sufficiency: 30-100 ng/mL (75-250 nmol/L) Toxicity: >100 ng/mL (>250 nmol/L) Performed By: #### L 501.5200, L100.0100, L501.2300, L500.2500 #### [facility] [address] [place], [address] CBC W/Diff, Automatedon Absolute Lymph 1.73 X10 3/uL Normal 0.83-4.51 [facility] Comment on above: Order Comment: 213.1 Performed By: #### L 500.4050, L100.0100 #### [facility] [address] [place], [address] Absolute Neut 2.8 X10 3/uL Normal 2.0-7.7 [facility] Comment on above: Order Comment: 213.1 Performed By: #### L 500.4050, L100.0100 #### [facility] [address] [place], [address] Basophils/100 WBC (Bld) 0.6 % Normal 0-1 [facility] Comment on above: Order Comment: 213.1 Performed By: #### L 500.4050, L100.0100 #### [facility] [address] [place], [address] Eosinophils/100 WBC (Bld) 3.8 % Normal 0-5 [facility] Comment on above: Order Comment: 213.1 Performed By: #### L 500.4050, L100.0100 #### [facility] [address] [place], [address] Erythrocyte distribution width (RBC) [Ratio] 13.2 % Normal 11.6-14.6 [facility] Comment on above: Order Comment: 213.1 Performed By: #### L 500.4050, L100.0100 #### [facility] [address] [place], [address] Hematocrit (Bld) [Volume fraction] 33.6 % Low 37-47 [facility] Comment on above: Order Comment: 213.1 Performed By: #### L 500.4050, L100.0100 #### [facility] [address] [place], [address] Hemoglobin (Bld) [Mass/Vol] 10.6 g/dL Low 12.0-15.0 [facility] Comment on above: Order Comment: 213.1 Performed By: #### L 500.4050, L100.0100 #### [facility] [address] [place], [address] IG% 0.600 Normal 0.0-0.9 [facility] Comment on above: Order Comment: 213.1 Result Comment: IG% - Immature Granulocytes (promyelocytes, myelocytes and metamyelocytes) > 1% indicates that a LEFT SHIFT is Present. Performed By: #### L 500.4050, L100.0100 #### [facility] [address] [place], [address] Lymphocytes/100 WBC (Bld) 32.6 % Normal 19-41 [facility] Comment on above: Order Comment: 213.1 Performed By: #### L 500.4050, L100.0100 #### [facility] [address] [place], [address] MCH (RBC) [Entitic mass] 28.8 pg Normal 27.0-32.0 [facility] Comment on above: Order Comment: 213.1 Performed By: #### L 500.4050, L100.0100 #### [facility] [address] [place], [address] MCHC (RBC) [Mass/Vol] 31.5 g/dL Low 32-36 [facility] Comment on above: Order Comment: 213.1 Performed By: #### L 500.4050, L100.0100 #### [facility] [address] [place], [address] MCV (RBC) [Entitic vol] 91.3 fL Normal 81-99 [facility] Comment on above: Order Comment: 213.1 Performed By: #### L 500.4050, L100.0100 #### [facility] [address] [place], [address] Monocytes/100 WBC (Bld) 10.4 % High 0-10 [facility] Comment on above: Order Comment: 213.1 Performed By: #### L 500.4050, L100.0100 #### [facility] [address] [place], [address] Neutrophils/100 WBC (Bld) 52.0 % Normal 47-70 [facility] Comment on above: Order Comment: 213.1 Performed By: #### L 500.4050, L100.0100 #### [facility] [address] [place], [address] Nucleated RBC (Bld) [#/Vol] 0 10*3/uL Normal 0-5 [facility] Comment on above: Order Comment: 213.1 Performed By: #### L 500.4050, L100.0100 #### [facility] [address] [place], [address] Platelet mean volume (Bld) [Entitic vol] 11.9 fL Normal 6.2-12.0 [facility] Comment on above: Order Comment: 213.1 Performed By: #### L 500.4050, L100.0100 #### [facility] [address] [place], [address] Platelets (Bld) [#/Vol] 216 10*3/uL Normal 150-450 [facility] Comment on above: Order Comment: 213.1 Performed By: #### L 500.4050, L100.0100 #### [facility] [address] [place], [address] RBC (Bld) [#/Vol] 3.68 10*6/uL Low 4.2-5.4 [facility] Comment on above: Order Comment: 213.1 Performed By: #### L 500.4050, L100.0100 #### [facility] [address] [place], [address] RDW SD 44.2 fl High 35.1-43.9 [facility] Comment on above: Order Comment: 213.1 Performed By: #### L 500.4050, L100.0100 #### [facility] [address] [place], [address] WBC (Bld) [#/Vol] 5.3 10*3/uL Normal 4.4-11.0 [facility] Comment on above: Order Comment: 213.1 Performed By: #### L 500.4050, L100.0100 #### [facility] [address] [place], [address] Comprehensive Metabolic Prof ilon 07-22-2025 Albumin [Mass/Vol] 3.9 g/dL Normal 3.4-4.8 [facility] Comment on above: Order Comment: 213.1 Performed By: #### L 500.4050, L100.0100 #### [facility] [address] [place], [address] Albumin/Globulin [Mass ratio] 1.7 {ratio} Normal 0.9-2.4 [facility] Comment on above: Order Comment: 213.1 Performed By: #### L 500.4050, L100.0100 #### [facility] [address] [place], [address] ALK PHOS 65 U/L Normal 35-104 [facility] Comment on above: Order Comment: 213.1 Performed By: #### L 500.4050, L100.0100 #### [facility] [address] [place], [address] ALT [Catalytic activity/Vol] 72 U/L High <=34 [facility] Comment on above: Order Comment: 213.1 Performed By: #### L 500.4050, L100.0100 #### [facility] [address] [place], [address] AST [Catalytic activity/Vol] 44 U/L High <=31 [facility] Comment on above: Order Comment: 213.1 Performed By: #### L 500.4050, L100.0100 #### [facility] [address] [place], [address] Bilirubin [Mass/Vol] 0.22 mg/dL Normal 0.00-1.30 [facility] Comment on above: Order Comment: 213.1 Performed By: #### L 500.4050, L100.0100 #### [facility] [address] [place], [address] BUN/CRE 20.4 RATIO High 10-20 [facility] Comment on above: Order Comment: 213.1 Performed By: #### L 500.4050, L100.0100 #### [facility] [address] [place], [address] Calcium [Mass/Vol] 9.7 mg/dL Normal 7.6-11.0 [facility] Comment on above: Order Comment: 213.1 Performed By: #### L 500.4050, L100.0100 #### [facility] [address] [place], [address] Chloride [Moles/Vol] 104 mmol/L Normal 98-108 [facility] Comment on above: Order Comment: 213.1 Performed By: #### L 500.4050, L100.0100 #### [facility] [address] [place], [address] CO2 [Moles/Vol] 25.4 mmol/L Normal 21.0-32.0 [facility] Comment on above: Order Comment: 213.1 Performed By: #### L 500.4050, L100.0100 #### [facility] [address] [place], [address] Creatinine [Mass/Vol] 0.94 mg/dL Normal 0.70-1.20 [facility] Comment on above: Order Comment: 213.1 Performed By: #### L 500.4050, L100.0100 #### [facility] [address] [place], [address] GAP 9 Normal 5-15 [facility] Comment on above: Order Comment: 213.1 Performed By: #### L 500.4050, L100.0100 #### [facility] [address] [place], [address] GFR/1.73 sq M.predicted among non-blacks MDRD (S/P/Bld) [Vol rate/Area] 64 mL/min/{1.73_m2} Normal >60 [facility] Comment on above: Order Comment: 213.1 Result Comment: mL/m in/1.73m2 CKD-EPI Creatinine Equation (2020) Performed By: #### L 500.4050, L100.0100 #### [facility] [address] [place], [address] Globulin (S) [Mass/Vol] 2.4 g/dL Normal 2.2-4.2 [facility] Comment on above: Order Comment: 213.1 Performed By: #### L 500.4050, L100.0100 #### [facility] [address] [place], [address] Glucose [Mass/Vol] 100 mg/dL High 70-99 [facility] Comment on above: Order Comment: 213.1 Performed By: #### L 500.4050, L100.0100 #### [facility] [address] [place], [address] Potassium [Moles/Vol] 4.5 mmol/L Normal 3.3-5.1 [facility] Comment on above: Order Comment: 213.1 Performed By: #### L 500.4050, L100.0100 #### [facility] [address] [place], [address] Sodium [Moles/Vol] 138 mmol/L Normal 133-145 [facility] Comment on above: Order Comment: 213.1 Performed By: #### L 500.4050, L100.0100 #### [facility] [address] [place], [address] T PROT 6.3 g/dL Normal 5.9-8.4 [facility] Comment on above: Order Comment: 213.1 Performed By: #### L 500.4050, L100.0100 #### [facility] [address] [place], [address] Urea nitrogen [Mass/Vol] 19 mg/dL Normal - [facility] Comment on above: Order Comment: 213.1 Performed By: #### L 500.4050, L100.0100 #### [facility] [address] [place], [address] Basic Metabolic Profile (BMP )on 07-10-2025 BUN Normal - [facility] Comment on above: Result Comment: Canc elled via OM: Order cancelled - Patient discharged Performed By: #### L 501.5200, L100.0100, L501.2300, L500.2500 #### [facility] [address] [place], [address] BUN/CRE Normal - [facility] Comment on above: Result Comment: Canc elled via OM: Order cancelled - Patient discharged Performed By: #### L 501.5200, L100.0100, L501.2300, L500.2500 #### [facility] [address] [place], [address] Calcium Normal 7.6-11.0 [facility] Comment on above: Result Comment: Canc elled via OM: Order cancelled - Patient discharged Performed By: #### L 501.5200, L100.0100, L501.2300, L500.2500 #### [facility] [address] [place], [address] CL Normal 98-108 [facility] Comment on above: Result Comment: Canc elled via OM: Order cancelled - Patient discharged Performed By: #### L 501.5200, L100.0100, L501.2300, L500.2500 #### [facility] [address] [place], [address] CO2 Normal 21.0-32.0 [facility] Comment on above: Result Comment: Canc elled via OM: Order cancelled - Patient discharged Performed By: #### L 501.5200, L100.0100, L501.2300, L500.2500 #### [facility] [address] [place], [address] CREAT,SERUM Normal 0.70-1.20 [facility] Comment on above: Result Comment: Canc elled via OM: Order cancelled - Patient discharged Performed By: #### L 501.5200, L100.0100, L501.2300, L500.2500 #### [facility] [address] [place], [address] eGFR Normal >60 [facility] Comment on above: Result Comment: Canc elled via OM: Order cancelled - Patient discharged Performed By: #### L 501.5200, L100.0100, L501.2300, L500.2500 #### [facility] [address] [place], [address] GAP Normal 5-15 [facility] Comment on above: Result Comment: Canc elled via OM: Order cancelled - Patient discharged Performed By: #### L 501.5200, L100.0100, L501.2300, L500.2500 #### [facility] [address] [place], [address] GLU Normal 70-99 [facility] Comment on above: Result Comment: Canc elled via OM: Order cancelled - Patient discharged Performed By: #### L 501.5200, L100.0100, L501.2300, L500.2500 #### [facility] [address] [place], [address] Potassium Normal 3.3-5.1 [facility] Comment on above: Result Comment: Canc elled via OM: Order cancelled - Patient discharged Performed By: #### L 501.5200, L100.0100, L501.2300, L500.2500 #### [facility] [address] [place], [address] Basic Metabolic Profile (BMP) Normal 133-145 [facility] Comment on above: Result Comment: Canc elled via OM: Order cancelled - Patient discharged Performed By: #### L 501.5200, L100.0100, L501.2300, L500.2500 #### [facility] [address] [place], [address] CBC W/Diff, Automatedon 08-2 -2024 Absolute Neut Normal 2.0-7.7 [facility] Comment on above: Result Comment: Canc elled via OM: Order cancelled - Patient discharged Performed By: #### L 501.5200, L100.0100, L501.2300, L500.2500 #### [facility] [address] [place], [address] HCT Normal 37-47 [facility] Comment on above: Result Comment: Canc elled via OM: Order cancelled - Patient discharged Performed By: #### L 501.5200, L100.0100, L501.2300, L500.2500 #### [facility] [address] [place], [address] HGB Normal 12.0-15.0 [facility] Comment on above: Result Comment: Canc elled via OM: Order cancelled - Patient discharged Performed By: #### L 501.5200, L100.0100, L501.2300, L500.2500 #### [facility] [address] [place], [address] MCH Normal 27.0-32.0 [facility] Comment on above: Result Comment: Canc elled via OM: Order cancelled - Patient discharged Performed By: #### L 501.5200, L100.0100, L501.2300, L500.2500 #### [facility] [address] [place], [address] MCHC Normal 32-36 [facility] Comment on above: Result Comment: Canc elled via OM: Order cancelled - Patient discharged Performed By: #### L 501.5200, L100.0100, L501.2300, L500.2500 #### [facility] [address] [place], [address] MCV Normal 81-99 [facility] Comment on above: Result Comment: Canc elled via OM: Order cancelled - Patient discharged Performed By: #### L 501.5200, L100.0100, L501.2300, L500.2500 #### [facility] [address] [place], [address] NEUT% Normal 47-70 [facility] Comment on above: Result Comment: Canc elled via OM: Order cancelled - Patient discharged Performed By: #### L 501.5200, L100.0100, L501.2300, L500.2500 #### [facility] [address] [place], [address] PLT Normal 150-450 [facility] Comment on above: Result Comment: Canc elled via OM: Order cancelled - Patient discharged Performed By: #### L 501.5200, L100.0100, L501.2300, L500.2500 #### [facility] [address] [place], [address] RBC Normal 4.2-5.4 [facility] Comment on above: Result Comment: Canc elled via OM: Order cancelled - Patient discharged Performed By: #### L 501.5200, L100.0100, L501.2300, L500.2500 #### [facility] [address] [place], [address] RDW CV Normal 11.6-14.6 [facility] Comment on above: Result Comment: Canc elled via OM: Order cancelled - Patient discharged Performed By: #### L 501.5200, L100.0100, L501.2300, L500.2500 #### [facility] [address] [place], [address] RDW SD Normal 35.1-43.9 [facility] Comment on above: Result Comment: Canc elled via OM: Order cancelled - Patient discharged Performed By: #### L 501.5200, L100.0100, L501.2300, L500.2500 #### [facility] [address] [place], [address] WBC Normal 4.4-11.0 [facility] Comment on above: Result Comment: Canc elled via OM: Order cancelled - Patient discharged Performed By: #### L 501.5200, L100.0100, L501.2300, L500.2500 #### [facility] [address] [place], [address] Basic Metabolic Profile (BMP )on 07-09-2025 BUN Normal 4-19 [facility] Comment on above: Result Comment: Canc elled via OM: Order cancelled - Patient discharged Performed By: #### L 501.5200, L100.0100, L501.2300, L500.2500 #### [facility] [address] [place], [address] BUN/CRE Normal 10-20 [facility] Comment on above: Result Comment: Canc elled via OM: Order cancelled - Patient discharged Performed By: #### L 501.5200, L100.0100, L501.2300, L500.2500 #### [facility] [address] [place], [address] Calcium Normal 7.6-11.0 [facility] Comment on above: Result Comment: Canc elled via OM: Order cancelled - Patient discharged Performed By: #### L 501.5200, L100.0100, L501.2300, L500.2500 #### [facility] [address] [place], [address] CL Normal 98-108 [facility] Comment on above: Result Comment: Canc elled via OM: Order cancelled - Patient discharged Performed By: #### L 501.5200, L100.0100, L501.2300, L500.2500 #### [facility] [address] [place], [address] CO2 Normal 21.0-32.0 [facility] Comment on above: Result Comment: Canc elled via OM: Order cancelled - Patient discharged Performed By: #### L 501.5200, L100.0100, L501.2300, L500.2500 #### [facility] [address] [place], [address] CREAT,SERUM Normal 0.70-1.20 [facility] Comment on above: Result Comment: Canc elled via OM: Order cancelled - Patient discharged Performed By: #### L 501.5200, L100.0100, L501.2300, L500.2500 #### [facility] [address] [place], [address] eGFR Normal >60 [facility] Comment on above: Result Comment: Canc elled via OM: Order cancelled - Patient discharged Performed By: #### L 501.5200, L100.0100, L501.2300, L500.2500 #### [facility] [address] [place], [address] GAP Normal 5-15 [facility] Comment on above: Result Comment: Canc elled via OM: Order cancelled - Patient discharged Performed By: #### L 501.5200, L100.0100, L501.2300, L500.2500 #### [facility] [address] [place], [address] GLU Normal 70-99 [facility] Comment on above: Result Comment: Canc elled via OM: Order cancelled - Patient discharged Performed By: #### L 501.5200, L100.0100, L501.2300, L500.2500 #### [facility] [address] [place], [address] Potassium Normal 3.3-5.1 [facility] Comment on above: Result Comment: Canc elled via OM: Order cancelled - Patient discharged Performed By: #### L 501.5200, L100.0100, L501.2300, L500.2500 #### [facility] [address] [place], [address] Basic Metabolic Profile (BMP) Normal 133-145 [facility] Comment on above: Result Comment: Canc elled via OM: Order cancelled - Patient discharged Performed By: #### L 501.5200, L100.0100, L501.2300, L500.2500 #### [facility] [address] [place], [address] CBC W/Diff, Automatedon 08-2 Absolute Neut Normal 2.0-7.7 [facility] Comment on above: Result Comment: Canc elled via OM: Order cancelled - Patient discharged Performed By: #### L 501.5200, L100.0100, L501.2300, L500.2500 #### [facility] [address] [place], [address] HCT Normal 37-47 [facility] Comment on above: Result Comment: Canc elled via OM: Order cancelled - Patient discharged Performed By: #### L 501.5200, L100.0100, L501.2300, L500.2500 #### [facility] [address] [place], [address] HGB Normal 12.0-15.0 [facility] Comment on above: Result Comment: Canc elled via OM: Order cancelled - Patient discharged Performed By: #### L 501.5200, L100.0100, L501.2300, L500.2500 #### [facility] [address] [place], [address] MCH Normal 27.0-32.0 [facility] Comment on above: Result Comment: Canc elled via OM: Order cancelled - Patient discharged Performed By: #### L 501.5200, L100.0100, L501.2300, L500.2500 #### [facility] [address] [place], [address] MCHC Normal 32-36 [facility] Comment on above: Result Comment: Canc elled via OM: Order cancelled - Patient discharged Performed By: #### L 501.5200, L100.0100, L501.2300, L500.2500 #### [facility] [address] [place], [address] MCV Normal 81-99 [facility] Comment on above: Result Comment: Canc elled via OM: Order cancelled - Patient discharged Performed By: #### L 501.5200, L100.0100, L501.2300, L500.2500 #### [facility] [address] [place], [address] NEUT% Normal 47-70 [facility] Comment on above: Result Comment: Canc elled via OM: Order cancelled - Patient discharged Performed By: #### L 501.5200, L100.0100, L501.2300, L500.2500 #### [facility] [address] [place], [address] PLT Normal 150-450 [facility] Comment on above: Result Comment: Canc elled via OM: Order cancelled - Patient discharged Performed By: #### L 501.5200, L100.0100, L501.2300, L500.2500 #### [facility] [address] [place], [address] RBC Normal 4.2-5.4 [facility] Comment on above: Result Comment: Canc elled via OM: Order cancelled - Patient discharged Performed By: #### L 501.5200, L100.0100, L501.2300, L500.2500 #### [facility] [address] [place], [address] RDW CV Normal 11.6-14.6 [facility] Comment on above: Result Comment: Canc elled via OM: Order cancelled - Patient discharged Performed By: #### L 501.5200, L100.0100, L501.2300, L500.2500 #### [facility] [address] [place], [address] RDW SD Normal 35.1-43.9 [facility] Comment on above: Result Comment: Canc elled via OM: Order cancelled - Patient discharged Performed By: #### L 501.5200, L100.0100, L501.2300, L500.2500 #### [facility] [address] [place], [address] WBC Normal 4.4-11.0 [facility] Comment on above: Result Comment: Canc elled via OM: Order cancelled - Patient discharged Performed By: #### L 501.5200, L100.0100, L501.2300, L500.2500 #### [facility] [address] [place], [address] Absolute lymphocyte countOrd ered By: Davin Kirkland on 07-08-2025 Lymphocytes Auto (Unsp spec) [#/Vol] 1.59 10*3/uL 0.83-4.51 [facility] Absolute neutrophil countOrd ered By: Davin Kirkland on 07-08-2025 Neutrophils (Bld) [#/Vol] 3.3 10*3/uL 2.0-7.7 [facility] Anion gap in Serum or Plasma Ordered By: Davin Kirkland on 07-08-2025 Anion gap [Moles/Vol] 8 mmol/L 04-01 [facility] Automated lymphocyte count a s percentage of total leukocytesOrdered By: Davin Kirkland on 07-08-2025 Lymphocytes/100 WBC Auto (Unsp spec) 28.3 % [facility] BUN/creatinine ratioOrdered By: Davin Kirkland on 07-08-2025 Urea nitrogen/Creatinine [Mass ratio] 18.7 mg/mg 09-06 [facility] Basic Metabolic Profile (BMP )on 07-08-2025 BUN/CRE 18.7 RATIO Normal 09-06 [facility] Comment on above: Performed By: #### L 501.5200, L100.0100, L501.2300, L500.2500 #### [facility] [address] [place], [address] Calcium [Mass/Vol] 9.3 mg/dL Normal 7.6-11.0 [facility] Comment on above: Performed By: #### L 501.5200, L100.0100, L501.2300, L500.2500 #### [facility] [address] [place], [address] Chloride [Moles/Vol] 105 mmol/L Normal 98-108 [facility] Comment on above: Performed By: #### L 501.5200, L100.0100, L501.2300, L500.2500 #### [facility] [address] [place], [address] CO2 [Moles/Vol] 23.2 mmol/L Normal 21.0-32.0 [facility] Comment on above: Performed By: #### L 501.5200, L100.0100, L501.2300, L500.2500 #### [facility] [address] [place], [address] Creatinine [Mass/Vol] 0.95 mg/dL Normal 0.70-1.20 [facility] Comment on above: Performed By: #### L 501.5200, L100.0100, L501.2300, L500.2500 #### [facility] [address] [place], [address] ECRCL 43.96 ml/min Low 50-250 [facility] Comment on above: Performed By: #### L 501.5200, L100.0100, L501.2300, L500.2500 #### [facility] [address] [place], [address] GAP 8 Normal 5-15 [facility] Comment on above: Performed By: #### L 501.5200, L100.0100, L501.2300, L500.2500 #### [facility] [address] [place], [address] GFR/1.73 sq M.predicted among non-blacks MDRD (S/P/Bld) [Vol rate/Area] 63 mL/min/{1.73_m2} Normal >60 [facility] Comment on above: Result Comment: mL/m in/1.73m2 CKD-EPI Creatinine Equation (2020) Performed By: #### L 501.5200, L100.0100, L501.2300, L500.2500 #### [facility] [address] [place], [address] Glucose [Mass/Vol] 95 mg/dL Normal 70-99 [facility] Comment on above: Performed By: #### L 501.5200, L100.0100, L501.2300, L500.2500 #### [facility] [address] [place], [address] Potassium [Moles/Vol] 4.8 mmol/L Normal 3.3-5.1 [facility] Comment on above: Performed By: #### L 501.5200, L100.0100, L501.2300, L500.2500 #### [facility] [address] [place], [address] Sodium [Moles/Vol] 137 mmol/L Normal 133-145 [facility] Comment on above: Performed By: #### L 501.5200, L100.0100, L501.2300, L500.2500 #### [facility] [address] [place], [address] Urea nitrogen [Mass/Vol] 18 mg/dL Normal 4-19 [facility] Comment on above: Performed By: #### L 501.5200, L100.0100, L501.2300, L500.2500 #### [facility] [address] [place], [address] Basophil percentageOrdered B y: Davin Kirkland on 07-08-2025 Basophils/100 WBC (Bld) 0.9 % 0-1 [facility] CBC W/Diff, Automatedon 06-19 Absolute Lymph 1.59 X10 3/uL Normal 0.83-4.51 [facility] Comment on above: Performed By: #### L 501.5200, L100.0100, L501.2300, L500.2500 #### [facility] [address] [place], [address] Absolute Neut 3.3 X10 3/uL Normal 2.0-7.7 [facility] Comment on above: Performed By: #### L 501.5200, L100.0100, L501.2300, L500.2500 #### [facility] [address] [place], [address] Basophils/100 WBC (Bld) 0.9 % Normal 0-1 [facility] Comment on above: Performed By: #### L 501.5200, L100.0100, L501.2300, L500.2500 #### [facility] [address] [place], [address] Eosinophils/100 WBC (Bld) 2.3 % Normal 0-5 [facility] Comment on above: Performed By: #### L 501.5200, L100.0100, L501.2300, L500.2500 #### [facility] [address] [place], [address] Erythrocyte distribution width (RBC) [Ratio] 13.5 % Normal 11.6-14.6 [facility] Comment on above: Performed By: #### L 501.5200, L100.0100, L501.2300, L500.2500 #### [facility] [address] [place], [address] Hematocrit (Bld) [Volume fraction] 30.5 % Low 37-47 [facility] Comment on above: Performed By: #### L 501.5200, L100.0100, L501.2300, L500.2500 #### [facility] [address] [place], [address] Hemoglobin (Bld) [Mass/Vol] 9.9 g/dL Low 12.0-15.0 [facility] Comment on above: Performed By: #### L 501.5200, L100.0100, L501.2300, L500.2500 #### [facility] [address] [place], [address] IG% 0.200 Normal 0.0-0.9 [facility] Comment on above: Result Comment: IG% - Immature Granulocytes (promyelocytes, myelocytes and metamyelocytes) > 1% indicates that a LEFT SHIFT is Present. Performed By: #### L 501.5200, L100.0100, L501.2300, L500.2500 #### [facility] [address] [place], [address] Lymphocytes/100 WBC (Bld) 28.3 % Normal 19-41 [facility] Comment on above: Performed By: #### L 501.5200, L100.0100, L501.2300, L500.2500 #### [facility] [address] [place], [address] MCH (RBC) [Entitic mass] 29.0 pg Normal 27.0-32.0 [facility] Comment on above: Performed By: #### L 501.5200, L100.0100, L501.2300, L500.2500 #### [facility] [address] [place], [address] MCHC (RBC) [Mass/Vol] 32.5 g/dL Normal 32-36 [facility] Comment on above: Performed By: #### L 501.5200, L100.0100, L501.2300, L500.2500 #### [facility] [address] [place], [address] MCV (RBC) [Entitic vol] 89.4 fL Normal 81-99 [facility] Comment on above: Performed By: #### L 501.5200, L100.0100, L501.2300, L500.2500 #### [facility] [address] [place], [address] Monocytes/100 WBC (Bld) 9.1 % Normal 0-10 [facility] Comment on above: Performed By: #### L 501.5200, L100.0100, L501.2300, L500.2500 #### [facility] [address] [place], [address] Neutrophils/100 WBC (Bld) 59.2 % Normal 47-70 [facility] Comment on above: Performed By: #### L 501.5200, L100.0100, L501.2300, L500.2500 #### [facility] [address] [place], [address] Nucleated RBC (Bld) [#/Vol] 0 10*3/uL Normal 0-5 [facility] Comment on above: Performed By: #### L 501.5200, L100.0100, L501.2300, L500.2500 #### [facility] [address] [place], [address] Platelet mean volume (Bld) [Entitic vol] 10.8 fL Normal 6.2-12.0 [facility] Comment on above: Performed By: #### L 501.5200, L100.0100, L501.2300, L500.2500 #### [facility] [address] [place], [address] Platelets (Bld) [#/Vol] 222 10*3/uL Normal 150-450 [facility] Comment on above: Performed By: #### L 501.5200, L100.0100, L501.2300, L500.2500 #### [facility] [address] [place], [address] RBC (Bld) [#/Vol] 3.41 10*6/uL Low 4.2-5.4 [facility] Comment on above: Performed By: #### L 501.5200, L100.0100, L501.2300, L500.2500 #### [facility] [address] [place], [address] RDW SD 44.7 fl High 35.1-43.9 [facility] Comment on above: Performed By: #### L 501.5200, L100.0100, L501.2300, L500.2500 #### [facility] [address] [place], [address] WBC (Bld) [#/Vol] 5.6 10*3/uL Normal 4.4-11.0 [facility] Comment on above: Performed By: #### L 501.5200, L100.0100, L501.2300, L500.2500 #### [facility] [address] [place], [address] Carbon dioxide, total [Moles /volume] in Central venous bloodOrdered By: Davin Kirkland on 07-08-2025 CO2 [Moles/Vol] 23.2 mmol/L 21.0-32.0 [facility] Chloride assayOrdered By: Delonte Kirkland on 07-08-2025 Chloride [Moles/Vol] 105 mmol/L 98-108 [facility] Electrocardiogram reportOrde red By: Ilana Kinney on 07-08-2025 EKG study [facility] [address] [place] [address] 12 Lead EKG 07/07/25 1015 MR#: [id number] Acct: [id number] Name: PRASHANT SHEFFIELD Rep #:[id number] : 1950 75 From: Ilana sinclair MD Attending Dr: Dr. Davin Kirkland MD Status: ADM ROXIE Ordering Dr: Shaji Rosales MD Date: Location: [facility] [place] Sex: F C Admitted: 07/07/25 Test Reason : Blood Pressure : */* mmHG Vent. Rate : 80 BPM Atrial Rate : 80 BPM P-R Int : 110 ms QRS Dur : 82 ms QT Int : 336 ms P-R-T Axes : 48 67 78 degrees QTcB Int : 387 ms Sinus rhythm with short ID Nonspecific T wave abnormality Abnormal ECG Confirmed by MARISA MEDEROS, LENORA ([id number]), web content editor RAIN ORTIZ ([id number]) on07/08/2025 1:31:04 PM Referred By: Confirmed By: LENORA KINNEY MD [id number] _ Ilana Kinney MD CC: Dr. Davin Kirkland MD; Dr. Shaji Rosales MD; Dr. Ez Solitario MD ~ Signed [facility] Other Eosinophil percentageOrdered By: Davin Kirkland on 07-08-2025 Eosinophils/100 WBC (Bld) 2.3 % 0-5 [facility] Erythrocyte distribution wid th ratioOrdered By: Davin Kirkland on 07-08-2025 Erythrocyte distribution width (RBC) [Ratio] 13.5 % 11.6-14.6 [facility] Erythrocyte distribution wid th standard deviationOrdered By: Davin Kirkland on 07-08-2025 Erythrocyte distribution width (RBC) [Ratio] 44.7 fl High 35.1-43.9 [facility] Glomerular filtration rate ( GFR) estimation/1.73 sq m using serum, plasma, or whole bOrdered By: Davin Kirkland on 07-08-2025 GFR/1.73 sq M.predicted among non-blacks MDRD (S/P/Bld) [Vol rate/Area] 63 mL/min/{1.73_m2} >60 [facility] Comment on above: mL/min/1.73m2 CKD-EP I Creatinine Equation (2020) Hematocrit Auto (Bld) [Volum e fraction]Ordered By: Davin Kirkland on 07-08-2025 Hematocrit (Bld) [Volume fraction] 30.5 % Low 37-47 [facility] Hemoglobin measurementOrdere d By: Davin Kirkland on 07-08-2025 Hemoglobin (Bld) [Mass/Vol] 9.9 g/dL Low 12.0-15.0 [facility] Immature granulocytes/100 WB C Auto (Bld)Ordered By: Davin Kirkland on 07-08-2025 Immature granulocytes/100 WBC (Bld) 0.200 % 0.0-0.9 [facility] Comment on above: IG% - Immature Granu locytes (promyelocytes, myelocytes and metamyelocytes) > 1% indicates that a LEFT SHIFT is Present. Iron measurement (mass/mass) Ordered By: Davin Kirkland on 07-08-2025 Iron (Unsp spec) [Mass/Mass] 63 ug/dL 50-170 [facility] Iron+Iron Binding Capacityon 07-08-2025 Iron [Mass/Vol] 63 ug/dL Normal 50-170 [facility] Comment on above: Performed By: #### L 501.5200, L100.0100, L501.2300, L500.2500 #### [facility] Laboratory [address] [place], [address] IRON SATURATION 26.0 Normal 13-59 [facility] Comment on above: Performed By: #### L 501.5200, L100.0100, L501.2300, L500.2500 #### [facility] [address] [place], [address] TIBC 245 ug/dL Low 250-450 [facility] Comment on above: Performed By: #### L 501.5200, L100.0100, L501.2300, L500.2500 #### [facility] [address] [place], [address] UIBC 182 ug/dL Low 228-428 [facility] Comment on above: Performed By: #### L 501.5200, L100.0100, L501.2300, L500.2500 #### [facility] [address] [place], [address] MCV (mean corpuscular volume ) determinationOrdered By: Davin Kirkland on 07-08-2025 MCV (RBC) [Entitic vol] 89.4 fL 81-99 [facility] Magnesiumon 07-08-2025 Magnesium [Mass/Vol] 2.1 mg/dL Normal 1.5-2.2 [facility] Comment on above: Performed By: #### L 501.5200, L100.0100, L501.2300, L500.2500 #### [facility] [address] [place], [address] Magnesium measurement (mass/ volume)Ordered By: Davin Kirkland on 07-08-2025 Magnesium (Unsp spec) [Mass/Vol] 2.1 mg/dL 1.5-2.2 [facility] Mean corpuscular hemoglobin (MCH) determinationOrdered By: Davin Kirkland on 07-08-2025 MCH (RBC) [Entitic mass] 29.0 pg 27.0-32.0 [facility] Mean corpuscular hemoglobin concentration (MCHC) determinationOrdered By: Davin Kirkland on 07-08-2025 MCHC (RBC) [Mass/Vol] 32.5 g/dL 32-36 [facility] Mean platelet volume determi nationOrdered By: Davin Kirkland on 07-08-2025 Platelet mean volume (Bld) [Entitic vol] 10.8 fL 6.2-12.0 [facility] Monocyte percentageOrdered B y: Davin Kirkland on 07-08-2025 Monocytes/100 WBC (Bld) 9.1 % 0-10 [facility] Neutrophil percentageOrdered By: Davin Kirkland on 07-08-2025 Neutrophils/100 WBC (Bld) 59.2 % 47-70 [facility] No Panel InformationOrdered By: Davin Kirkland on 07-08-2025 Unsaturated Iron Binding Capacity 182 ug/dL Low 228-428 [facility] Nucleated red blood cell per centageOrdered By: Davin Kirkland on 07-08-2025 Nucleated RBC/100 WBC (Bld) [Ratio] 0 % 0-5 [facility] Phosphoruson 07-08-2025 Phosphate [Mass/Vol] 2.9 mg/dL Normal 2.7-4.5 [facility] Comment on above: Performed By: #### L 501.5200, L100.0100, L501.2300, L500.2500 #### [facility] [address] [place], [address] Platelet countOrdered By: Delonte Kirkland on 07-08-2025 Platelets (Bld) [#/Vol] 222 10*3/uL 150-450 [facility] Potassium measurement (mass/ volume)Ordered By: Davin Kirkland on 07-08-2025 Potassium (Unsp spec) [Mass/Vol] 4.8 mmol/L 3.3-5.1 [facility] RBC Auto (Bld) [#/Vol]Ordere d By: Davin Kirkland on 07-08-2025 RBC (Bld) [#/Vol] 3.41 10*6/uL Low 4.2-5.4 [facility] Serum creatinine measurement (mass/volume)Ordered By: Davin Kirkland on 07-08-2025 Creatinine [Mass/Vol] 0.95 mg/dL 0.70-1.20 [facility] Serum glucose measurement (m ass/volume)Ordered By: Davin Kirkland on 07-08-2025 Glucose [Mass/Vol] 95 mg/dL 70-99 [facility] Serum or plasma calcium carlos urement (mass/volume)Ordered By: Davin Kirkland on 07-08-2025 Calcium [Mass/Vol] 9.3 mg/dL 7.6-11.0 [facility] Serum or plasma iron saturat ion measurement (mass fraction)Ordered By: Davin Kirkland on 07-08-2025 Iron saturation [Mass fraction] 26.0 % 13-59 [facility] Serum or plasma urea nitroge n measurement (mass/volume)Ordered By: Davin Kirkland on 07-08-2025 Urea nitrogen [Mass/Vol] 18 mg/dL 4-19 [facility] Sodium levelOrdered By: Wang Kirkland on 07-08-2025 Sodium [Moles/Vol] 137 mmol/L 133-145 [facility] TSH DL <= 0.005 mIU/L QnOrde red By: Davin Kirkland on 07-08-2025 TSH Qn 1.940 uIU/mL 0.300-4.200 [facility] Thyroid Stim Hormone (TSH)on 07-08-2025 TSH 1.940 uIU/mL Normal 0.300-4.200 [facility] Comment on above: Performed By: #### L 501.5200, L100.0100, L501.2300, L500.2500 #### [facility] [address] [place], [address] Vitamin B12on 07-08-2025 Cobalamin (Vitamin B12) [Mass/Vol] 1045 pg/mL High 180-914 [facility] Comment on above: Performed By: #### L 501.5200, L100.0100, L501.2300, L500.2500 #### [facility] [address] [place], [address] Vitamin B12 ser/plasOrdered By: Davin Kirkland on 07-08-2025 Cobalamin (Vitamin B12) [Mass/Vol] 1045 pg/mL High 180-914 [facility] White blood cell (WBC) count Ordered By: Davin Kirkland on 07-08-2025 WBC (Bld) [#/Vol] 5.6 10*3/uL 4.4-11.0 [facility] 12 Lead EKGon 07-07-2025 12 Lead EKG [facility] Cardiovascular Services [address] [place] [address] 12 Lead EKG 07/07/25 1015 MR#: [id number] Acct: [id number] Name: PRASHANT SHEFFIELD Rep #: [id number] : 1950 75 From: Ilana Kinney MD Attending Dr: Dr. Davin Kirkland MD Status: ADM ROXIE Ordering Dr: Shaji Rosales MD Date: 07/07/25 Location: [facility] [place] Sex: F C Admitted: 07/07/25 Test Reason : Blood Pressure : */* mmHG Vent. Rate : 80 BPM Atrial Rate : 80 BPM P-R Int : 110 ms QRS Dur : 82 ms QT Int : 336 ms P-R-T Axes : 48 67 78 degrees QTcB Int : 387 ms Sinus rhythm with short ID Nonspecific T wave abnormality Abnormal ECG Confirmed by MARISA MEDEROS, LENORA ([id number]), web content editor RAIN ORTIZ ([id number]) on 07/08/2025 1:31:04 PM Referred By: Confirmed By: LENORA KINNEY MD 07/08/25 1331 Date Ilana Kinney MD CC: Dr. Davin Kirkland MD; Dr. Shaji Rosales MD; Dr. Ez Solitario MD Signed Normal [facility] Absolute lymphocyte countOrd ered By: Shaji Rosales on 07-07-2025 Lymphocytes Auto (Unsp spec) [#/Vol] 1.21 10*3/uL 0.83-4.51 [facility] Absolute neutrophil countOrd ered By: Shaji Rosales on 07-07-2025 Neutrophils (Bld) [#/Vol] 3.5 10*3/uL 2.0-7.7 [facility] Anion gap in Serum or Plasma Ordered By: Shaji Rosales on 07-07-2025 Anion gap [Moles/Vol] 12 mmol/L 04-01 [facility] Automated lymphocyte count a s percentage of total leukocytesOrdered By: Shaji Rosales on 07-07-2025 Lymphocytes/100 WBC Auto (Unsp spec) 22.8 % [facility] BUN/creatinine ratioOrdered By: Shaji Rosales on 07-07-2025 Urea nitrogen/Creatinine [Mass ratio] 19.1 mg/mg 09-06 [facility] Basic Metabolic Profile (BMP )on 07-07-2025 BUN/CRE 19.1 RATIO Normal 09-06 [facility] Comment on above: Performed By: #### L 100.0100, L500.2500 #### [facility] [address] [place], [address] Calcium [Mass/Vol] 9.7 mg/dL Normal 7.6-11.0 [facility] Comment on above: Performed By: #### L 100.0100, L500.2500 #### [facility] [address] [place], [address] Chloride [Moles/Vol] 99 mmol/L Normal 98-108 [facility] Comment on above: Performed By: #### L 100.0100, L500.2500 #### [facility] [address] [place], [address] CO2 [Moles/Vol] 23.7 mmol/L Normal 21.0-32.0 [facility] Comment on above: Performed By: #### L 100.0100, L500.2500 #### [facility] [address] [place], [address] Creatinine [Mass/Vol] 1.03 mg/dL Normal 0.70-1.20 [facility] Comment on above: Performed By: #### L 100.0100, L500.2500 #### [facility] [address] [place], [address] ECRCL 41.44 ml/min Low 50-250 [facility] Comment on above: Performed By: #### L 100.0100, L500.2500 #### [facility] [address] [place], [address] GAP 12 Normal 5-15 [facility] Comment on above: Performed By: #### L 100.0100, L500.2500 #### [facility] [address] [place], [address] GFR/1.73 sq M.predicted among non-blacks MDRD (S/P/Bld) [Vol rate/Area] 57 mL/min/{1.73_m2} Low >60 [facility] Comment on above: Result Comment: mL/m in/1.73m2 CKD-EPI Creatinine Equation (2020) Performed By: #### L 100.0100, L500.2500 #### [facility] [address] [place], [address] Glucose [Mass/Vol] 112 mg/dL High 70-99 [facility] Comment on above: Performed By: #### L 100.0100, L500.2500 #### [facility] [address] [place], [address] Potassium [Moles/Vol] 4.2 mmol/L Normal 3.3-5.1 [facility] Comment on above: Performed By: #### L 100.0100, L500.2500 #### [facility] [address] [place], [address] Sodium [Moles/Vol] 135 mmol/L Normal 133-145 [facility] Comment on above: Performed By: #### L 100.0100, L500.2500 #### [facility] [address] [place], [address] Urea nitrogen [Mass/Vol] 20 mg/dL High 4-19 [facility] Comment on above: Performed By: #### L 100.0100, L500.2500 #### [facility] [address] [place], [address] Basophil percentageOrdered B y: Shaji Rosales on 07-07-2025 Basophils/100 WBC (Bld) 0.9 % 0-1 [facility] Bilirubin Test strip Ql (U)O rdered By: Shaji Rosales on 07-07-2025 Bilirubin Ql (U) Negative Negative [facility] CBC W/Diff, Automatedon 06-19 Absolute Lymph 1.21 X10 3/uL Normal 0.83-4.51 [facility] Comment on above: Performed By: #### L 100.0100, L500.2500 #### [facility] [address] [place], [address] Absolute Neut 3.5 X10 3/uL Normal 2.0-7.7 [facility] Comment on above: Performed By: #### L 100.0100, L500.2500 #### [facility] [address] [place], [address] Basophils/100 WBC (Bld) 0.9 % Normal 0-1 [facility] Comment on above: Performed By: #### L 100.0100, L500.2500 #### [facility] [address] [place], [address] Eosinophils/100 WBC (Bld) 1.5 % Normal 0-5 [facility] Comment on above: Performed By: #### L 100.0100, L500.2500 #### [facility] [address] [place], [address] Erythrocyte distribution width (RBC) [Ratio] 13.4 % Normal 11.6-14.6 [facility] Comment on above: Performed By: #### L 100.0100, L500.2500 #### [facility] [address] [place], [address] Hematocrit (Bld) [Volume fraction] 34.7 % Low 37-47 [facility] Comment on above: Performed By: #### L 100.0100, L500.2500 #### [facility] [address] [place], [address] Hemoglobin (Bld) [Mass/Vol] 11.1 g/dL Low 12.0-15.0 [facility] Comment on above: Performed By: #### L 100.0100, L500.2500 #### [facility] [address] [place], [address] IG% 0.400 Normal 0.0-0.9 [facility] Comment on above: Result Comment: IG% - Immature Granulocytes (promyelocytes, myelocytes and metamyelocytes) > 1% indicates that a LEFT SHIFT is Present. Performed By: #### L 100.0100, L500.2500 #### [facility] [address] [place], [address] Lymphocytes/100 WBC (Bld) 22.8 % Normal 19-41 [facility] Comment on above: Performed By: #### L 100.0100, L500.2500 #### [facility] [address] [place], [address] MCH (RBC) [Entitic mass] 28.8 pg Normal 27.0-32.0 [facility] Comment on above: Performed By: #### L 100.0100, L500.2500 #### [facility] [address] [place], [address] MCHC (RBC) [Mass/Vol] 32.0 g/dL Normal 32-36 [facility] Comment on above: Performed By: #### L 100.0100, L500.2500 #### [facility] [address] [place], [address] MCV (RBC) [Entitic vol] 90.1 fL Normal 81-99 [facility] Comment on above: Performed By: #### L 100.0100, L500.2500 #### [facility] [address] [place], [address] Monocytes/100 WBC (Bld) 8.3 % Normal 0-10 [facility] Comment on above: Performed By: #### L 100.0100, L500.2500 #### [facility] [address] [place], [address] Neutrophils/100 WBC (Bld) 66.1 % Normal 47-70 [facility] Comment on above: Performed By: #### L 100.0100, L500.2500 #### [facility] [address] [place], [address] Nucleated RBC (Bld) [#/Vol] 0 10*3/uL Normal 0-5 [facility] Comment on above: Performed By: #### L 100.0100, L500.2500 #### [facility] [address] [place], [address] Platelet mean volume (Bld) [Entitic vol] 10.7 fL Normal 6.2-12.0 [facility] Comment on above: Performed By: #### L 100.0100, L500.2500 #### [facility] [address] [place], [address] Platelets (Bld) [#/Vol] 239 10*3/uL Normal 150-450 [facility] Comment on above: Performed By: #### L 100.0100, L500.2500 #### [facility] [address] [place], [address] RBC (Bld) [#/Vol] 3.85 10*6/uL Low 4.2-5.4 [facility] Comment on above: Performed By: #### L 100.0100, L500.2500 #### [facility] [address] [place], [address] RDW SD 44.1 fl High 35.1-43.9 [facility] Comment on above: Performed By: #### L 100.0100, L500.2500 #### [facility] [address] [place], [address] WBC (Bld) [#/Vol] 5.3 10*3/uL Normal 4.4-11.0 [facility] Comment on above: Performed By: #### L 100.0100, L500.2500 #### [facility] [address] [place], [address] CPK Total, Creatine Kinaseon 07-07-2025 CPK TOTAL 58 U/L Normal 24-195 [facility] Comment on above: Performed By: #### L 501.5200, L100.0100, L501.2300, L500.2500 #### [facility] [address] [place], [address] CRPon 07-07-2025 C-REACTIVE PROT < 3.00 Normal 0.0-3.0 [facility] Comment on above: Performed By: #### L 501.5200, L100.0100, L501.2300, L500.2500 #### [facility] [address] [place], [address] Carbon dioxide, total [Moles /volume] in Central venous bloodOrdered By: Shaji Rosales on 07-07-2025 CO2 [Moles/Vol] 23.7 mmol/L 21.0-32.0 [facility] Chest PA and Lateralon 07-07 Chest PA and Lateral [facility] Imaging Services [address] [place] [address] Chest PA and Lateral MR#: [id number] Acct: [id number] Name: PRASHANT SHEFFIELD Rep #: [id number] : 1950 F 75 From: Rufus Gray MD PCP: Dr. Ez Solitario MD Status: REG ER Study: Chest PA and Lateral Date of Exam: 07/07/25 Exam# [id number] Ordering Dr: Shaji Rosales MD PROCEDURE: CHEST [...] Shaji Rosales MD; Dr. Ez Solitario MD Associate Attorney: Signed Normal [facility] Chloride assayOrdered By: Dimitri Rosales on 07-07-2025 Chloride [Moles/Vol] 99 mmol/L 98-108 [facility] Emergency Department Summary on 07-07-2025 Emergency Department Summary [facility] Medical Records Department [address] [place] [address] Emergency Department Summary 07/07/25 MR#: [id number] Acct: [id number] Name: PRASHANT SHEFFIELD Rep #: [id number] : 1950 75 From: Shaji Rosales MD PCP: Dr. Ez Solitario MD Status:ADM ROXIE Location: [place]3 [id number] HPI History of Present Illness Chief Complaint: [...] symptoms: No Recent Illness/Hospitalizat ion: No PFSH PFS Medical History Dysphagia History [...] bisacodyl 10 mg rectal suppository 10 mg ID .PRN X 1 PRN Constipati on 08/20/23 [...] Time codeine AdvReac CRAZY Verified 09/03/23 13:40 DREAMS DOES NOT LIKE TO TAKE IT Family History Father , at 51 YOA due to [place] CAD (coronary artery disease) Mother , she [...] Narrative Exam (more content not included)... Normal [facility] Eosinophil percentageOrdered By: Shaji Rosales on 07-07-2025 Eosinophils/100 WBC (Bld) 1.5 % 0-5 [facility] Erythrocyte Sed Rateon 07-07 SED RATE 2 mm/hr Normal 0-30 [facility] Comment on above: Performed By: #### L 501.5200, L100.0100, L501.2300, L500.2500 #### [facility] Laboratory [address] [place], [address] Erythrocyte distribution wid th ratioOrdered By: Shaji Rosales on 07-07-2025 Erythrocyte distribution width (RBC) [Ratio] 13.4 % 11.6-14.6 [facility] Erythrocyte distribution wid th standard deviationOrdered By: Shaji Rosales on 07-07-2025 Erythrocyte distribution width (RBC) [Ratio] 44.1 fl High 35.1-43.9 [facility] Erythrocyte sedimentation ra teOrdered By: Davin Kirkland on 07-07-2025 ESR (Bld) [Velocity] 2 mm/h 0-30 [facility] Glomerular filtration rate ( GFR) estimation/1.73 sq m using serum, plasma, or whole bOrdered By: Shaji Rosales on 07-07-2025 GFR/1.73 sq M.predicted among non-blacks MDRD (S/P/Bld) [Vol rate/Area] 57 mL/min/{1.73_m2} Low >60 [facility] Comment on above: mL/min/1.73m2 CKD-EP I Creatinine Equation (2020) H AND P Exam - Hospitaliston 07-07-2025 H&P Exam - Hospitalist [facility] Medical Records Department [address] [place] [address] H P Exam - Hospitalist 07/07/25 1158 MR#: [id number] Acct: [id number] Name: PRASHANT SHEFFIELD Rep #: [id number] : 1950 75 From: Davin Kirkland MD PCP: Dr. Ez Solitario MD Status:ADM ROXIE Location: [place]3 [id number] HPI - General General Date of Admission: 07/07/25 Date of Service: 07/07/25 Chief Complaint: Generalized weakness HPI Narrative PRASHANT SHEFFIELD, is a 75 F with past medical history significant for Parkinson's disease resident [facility] who was brought to the emergency department with generalized weakness. Per patient she recently had medication adjustment mainly for anxiety since then she has developed progressive generalized weakness. Patient also complains of muscle aches and difficulty with both handgrips. Workup in the ED came back unremarkable. Patient admitted to regular nursing floor for subsequent eval with consultation placed to [facility] Medical History Dysphagia History of 1 Parkinson [...] bisacodyl 10 mg rectal suppository 10 mg ID .PRN X 1 PRN Constipati on 08/20/23 [...] Time codeine AdvReac CRAZY Verified 09/03/23 13:40 DREAMS DOES NOT LIKE TO TAKE IT Family History Father , at 51 YOA due to [place] CAD (coronary artery disease) Mother , she [...] H Blood (more content not included)... Normal [facility] Hematocrit Auto (Bld) [Volum e fraction]Ordered By: Shaji Rosales on 07-07-2025 Hematocrit (Bld) [Volume fraction] 34.7 % Low 37-47 [facility] Hemoglobin measurementOrdere d By: Shaji Rosales on 07-07-2025 Hemoglobin (Bld) [Mass/Vol] 11.1 g/dL Low 12.0-15.0 [facility] Immature granulocytes/100 WB C Auto (Bld)Ordered By: Shaji Rosales on 07-07-2025 Immature granulocytes/100 WBC (Bld) 0.400 % 0.0-0.9 [facility] Comment on above: IG% - Immature Granu locytes (promyelocytes, myelocytes and metamyelocytes) > 1% indicates that a LEFT SHIFT is Present. Ketones Test strip Ql (U)Ord ered By: Shaji Rosales on 07-07-2025 Ketones Ql (U) Negative Negative [facility] MCV (mean corpuscular volume ) determinationOrdered By: Shaji Rosales on 07-07-2025 MCV (RBC) [Entitic vol] 90.1 fL 81-99 [facility] Mean corpuscular hemoglobin (MCH) determinationOrdered By: Shaji Rosales on 07-07-2025 MCH (RBC) [Entitic mass] 28.8 pg 27.0-32.0 [facility] Mean corpuscular hemoglobin concentration (MCHC) determinationOrdered By: Shaji Rosales on 07-07-2025 MCHC (RBC) [Mass/Vol] 32.0 g/dL 32-36 [facility] Mean platelet volume determi nationOrdered By: Shaji Rosales on 07-07-2025 Platelet mean volume (Bld) [Entitic vol] 10.7 fL 6.2-12.0 [facility] Microscopic analysis of urin e for red blood cells (RBC)Ordered By: Shaji Rosales on 07-07-2025 Microscopic analysis of urine for red blood cells (RBC) 0 SEEN /hpf 0-5 [facility] Monocyte percentageOrdered B y: Shaji Rosales on 07-07-2025 Monocytes/100 WBC (Bld) 8.3 % 0-10 [facility] Mucus LM Ql (Urine sed)Order ed By: Shaji Rosales on 07-07-2025 Mucus Ql (Urine sed) 0 SEEN /hpf [facility] Neutrophil percentageOrdered By: Shaji Rosales on 07-07-2025 Neutrophils/100 WBC (Bld) 66.1 % 47-70 [facility] Nitrite Test strip Ql (U)Ord ered By: Shaji Rosales on 07-07-2025 Nitrite Ql (U) Negative Negative [facility] Nucleated red blood cell per centageOrdered By: Shaji Rosales on 07-07-2025 Nucleated RBC/100 WBC (Bld) [Ratio] 0 % 0-5 [facility] Platelet countOrdered By: Dimitri Rosales on 07-07-2025 Platelets (Bld) [#/Vol] 239 10*3/uL 150-450 [facility] Potassium measurement (mass/ volume)Ordered By: Shaji Rosales on 07-07-2025 Potassium (Unsp spec) [Mass/Vol] 4.2 mmol/L 3.3-5.1 [facility] Protein Test strip Ql (U)Ord ered By: Shaji Rosales on 07-07-2025 Protein Ql (U) 30 mg/dl High Negative [facility] RBC Auto (Bld) [#/Vol]Ordere d By: Shaji Rosales on 07-07-2025 RBC (Bld) [#/Vol] 3.85 10*6/uL Low 4.2-5.4 [facility] Serum creatinine measurement (mass/volume)Ordered By: Shaji Rosales on 07-07-2025 Creatinine [Mass/Vol] 1.03 mg/dL 0.70-1.20 [facility] Serum glucose measurement (m ass/volume)Ordered By: Shaji Rosales on 07-07-2025 Glucose [Mass/Vol] 112 mg/dL High 70-99 [facility] Serum or plasma C reactive p rotein measurement (mass/volume)Ordered By: Davin Kirkland on 07-07-2025 CRP [Mass/Vol] mg/L 0.0-3.0 [facility] Serum or plasma calcium carlos urement (mass/volume)Ordered By: Shaji Rosales on 07-07-2025 Calcium [Mass/Vol] 9.7 mg/dL 7.6-11.0 [facility] Serum or plasma creatine kin ase activityOrdered By: Davin Kirkland on 07-07-2025 CK [Catalytic activity/Vol] 58 U/L 24-195 [facility] Serum or plasma urea nitroge n measurement (mass/volume)Ordered By: Shaji Rosales on 07-07-2025 Urea nitrogen [Mass/Vol] 20 mg/dL High 4-19 [facility] Sodium levelOrdered By: Shaji Rosales on 07-07-2025 Sodium [Moles/Vol] 135 mmol/L 133-145 [facility] Squamous epithelial cells de tection in urine sediment by light microscopyOrdered By: Shaji Rosales on 07-07-2025 Epithelial cells.squamous LM Ql (Urine sed) 0 SEEN /hpf - [facility] Urinalysis, Completeon 07-07 BACTERIA 0 SEEN Normal None Seen [facility] Comment on above: Order Comment: CLEAN CATCH Performed By: #### L 400.0001 #### [facility] [address] [place], [place], [id number] EPI,SQUAMOUS 0 SEEN Normal 03-27 [facility] Comment on above: Order Comment: CLEAN CATCH Performed By: #### L 400.0001 #### [facility] [address] [place], [address] Mucus Ql (Urine sed) 0 SEEN Normal [facility] Comment on above: Order Comment: CLEAN CATCH Performed By: #### L 400.0001 #### [facility] [address] [place], [place], [id number] RBC 0 SEEN Normal 0-5 [facility] Comment on above: Order Comment: CLEAN CATCH Performed By: #### L 400.0001 #### [facility] [address] [place], [place], [id number] WBC 0 SEEN Normal 0-5 [facility] Comment on above: Order Comment: CLEAN CATCH Performed By: #### L 400.0001 #### [facility] [address] [place], [place], [id number] Urine clarityOrdered By: Kalin Rosales on 07-07-2025 Clarity (U) Clear Clear [facility] Urine color determinationOrd ered By: Shaji Rosales on 07-07-2025 Color (U) Yellow Yellow [facility] Urine glucose detectionOrder ed By: Shaji Rosales on 07-07-2025 Glucose Ql (U) Normal mg/dl Normal [facility] Urine leukocyte esterase det ection by dipstickOrdered By: Shaji Rosales on 07-07-2025 Leukocyte esterase Test strip Ql (U) Negative Negative [facility] Urine pHOrdered By: Shaji beal on 07-07-2025 pH (U) 6.0 [pH] 5.0 - 8.0 [facility] Urine sediment bacteria coun t by microscopy (number/high power field)Ordered By: Shaji Rosales on 07-07-2025 Bacteria LM.HPF (Urine sed) [#/Area] 0 /[HPF] None Seen [facility] Urine specific gravity measu rementOrdered By: Shaji Rosales on 07-07-2025 Specific gravity (U) [Rel density] 1.010 1.002-1.030 [facility] Urine urobilinogen measureme ntOrdered By: Shaji Rosales on 07-07-2025 Urobilinogen Ql (U) Normal mg/dl Normal [facility] White blood cell (WBC) count Ordered By: Shaji Rosales on 07-07-2025 WBC (Bld) [#/Vol] 5.3 10*3/uL 4.4-11.0 [facility] White blood cell countOrdere d By: Shaji Rosales on 07-07-2025 White blood cell count 0 SEEN /hpf 0-5 [facility] D/C Summary- SPon 03-10-2025 D/C Summary- SP [facility] Speech Pathology [facility] [address] [place] [address] / REHABILITATION SERVICES DISCHARGE SUMMARY MR#: [id number] Acct: [id number] Name: PRASHANT SHEFFIELD Rep #: [id number] : 1950 75 From: Malgorzata Martinez M.S., [facility]-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 03/10/25 3804 CC: Dr. Ez Solitario MD; LIDYA Sandhu RE Signed Normal [facility] CNOVon 03-08-2025 CNOV Office Visit (FAMPWS) PRASHANT SHEFFIELD ([id number]) 1950 F Date Time Provider Department 03/08/25 2:00 PM MARY ORTIZ During your visit today, we recorded the following information about you: Pulse Respiration Blood pressure Weight 57/minute 16/minute 118/68 64 kg Mary Ortiz APRN.HYDROELECTRIC PRODUCTION TECHNICIAN 03/09/2025 12:22 PM Signed 03/08/2025 Patient presents [...] disease (HCC) 02/07/[address] Man in [facility] Stage 3a chronic kidney disease (HCC) [...] Take 1 tablet by mouth once daily. bvucxpp-jtvkizljb-uo tamin D3 (CALCIUM 500+D) 500 mg-5 mcg [...] two times a day. Per [facility] Melatonin 5 mg cap Take 2 capsules by mouth daily at bedtime. cyanocobalamin (VITAMIN B-12) 1,000 mcg tab Take 1 tablet by mouth once daily. citalopram hydrobromide (CELEXA) 10 mg tablet Take 1 tablet by mouth once daily. Take with 20 mg dose for total of 30mg daily, getting from [facility] at [facility] citalopram (CELEXA) 20 mg tablet Take 1 tablet by mouth daily at bedtime. Take with 10mg dose for total of 30mg daily. Per neurology at [facility] estradiol (ESTRACE) 0.01 % (0.1 mg/gram) vaginal [...] appearing, al (more content not included)... Normal [facility] BD DXA - AXIAL SKELETONon BD DXA - AXIAL SKELETON * * *Final Repor t* * * DATE OF EXAM: Feb 22 2025 12:59PM [facility] 0804 - BD DXA - AXIAL SKELETON / PROCEDURE REASON: Asymptomatic menopause * * * * Physician Interpretation * * * * EXAMINATION: DXA BONE DENSITOMETRY BD DXA - AXIAL SKELETON, BD DXA TRABECLR BONE SCORE (TBS) PATIENT DEMOGRAPHICS: Age: 74 years, Gender: Female SCANNER INFORMATION: DXA Model: [email or web address] - [employer] C 02549 Date Scanned: 02/22/2025 12:59 PM CLINICAL HISTORY: [...] FOR MORE INFORMATION ABOUT DIAGNOSIS AND TREATMENT: [facility] for Osteoporosis and Metabolic Bone Disease:? www.ccf.org/yohana s/osteo National Osteoporosis Foundation:? www.nof.org International Society of Clinical Densitometry www.iscd.org Associate Attorney: OG Transcribe Date/Time: Feb 22 2025 1:13P Dictated by : AUSTYN FOUNTAIN MD This examination was interpreted and the report reviewed and electronically signed by: AUSTYN FOUNTAIN MD on Feb 22 2025 1:40PM EST [id number] CN -1.8 Normal [facility] BD DXA TRABECLR BONE SCORE ( TBS)on [...] years, Gender: Female SCANNER INFORMATION: DXA Model: [email or web address] - [employer] C 71776 Date Scanned: 02/22/2025 12:59 PM CLINICAL HISTORY: [...] FOR MORE INFORMATION ABOUT DIAGNOSIS AND TREATMENT: [facility] for Osteoporosis and Metabolic Bone Disease:? www.ccf.org/arthrigonsalo s/osteo National Osteoporosis Foundation:? www.nof.org International Society of Clinical Densitometry www.iscd.org Associate Attorney: OG Transcribe Date/Time: Feb 22 2025 1:13P Dictated by : AUSTYN FOUNTAIN MD This examination was interpreted and the report reviewed and electronically signed by: AUSTYN FOUNTAIN MD on Feb 22 2025 1:40PM EST [id number] CN -1.8 Normal [facility] DXA Femur [T-score] Francisco frost 02-22-2025 * * *Final Report* * * DATE OF EXAM: Feb 22 2025 12:59PM [facility] 0801 - BD DXA TRABECLR BONE SCORE (TBS) / PROCEDURE REASON: Asymptomatic menopause * * * * Physician Interpretation * * * * EXAMINATION: DXA BONE DENSITOMETRY BD DXA - AXIAL SKELETON, BD DXA TRABECLR BONE SCORE (TBS) PATIENT DEMOGRAPHICS: Age: 74 years, Gender: Female SCANNER INFORMATION: DXA Model: [email or web address] - [employer] C 31350 Date Scanned: 02/22/2025 12:59 PM CLINICAL HISTORY: [...] Normal (> 1.310) DIVISION OF RADIOLOGY Provider, [facility] [place] - 02/22/2025 * * *Final Report* * [...] years, Gender: Female SCANNER INFORMATION: DXA Model: [email or web address] - [employer] C 86207 Date Scanned: 02/22/2025 12:59 PM CLINICAL HISTORY: [...] FOR MORE INFORMATION ABOUT DIAGNOSIS AND TREATMENT: [facility] for Osteoporosis and Metabolic Bone Disease:? www.ccf.org/arthkaterin s/osteo National Osteoporosis Foundation:? www.nof.org International Society of Clinical Densitometry www.iscd.org Associate Attorney: OG Transcribe Date/Time: Feb 22 2025 1:13P Dictated by : AUSTYN FOUNTAIN MD This examination was interpreted and the report reviewed and electronically signed by: AUSTYN FOUNTAIN MD on Feb 22 2025 1:40PM EST [facility] DXA Skeletal system.axial Vi ews for [...] years, Gender: Female SCANNER INFORMATION: DXA Model: [email or web address] - [employer] C 91686 Date Scanned: 02/22/2025 12:59 PM CLINICAL HISTORY: [...] Normal (> 1.310) DIVISION OF RADIOLOGY Provider, [facility] [place] - 02/22/2025 * * *Final Report* * * DATE OF EXAM: Feb 22 2025 12:59PM [facility] 0804 - DXA - AXIAL SKELETON / PROCEDURE REASON: Asymptomatic menopause * * * * Physician Interpretation * * * * EXAMINATION: DXA BONE DENSITOMETRY BD DXA - AXIAL SKELETON, BD DXA TRABECLR BONE SCORE (TBS) PATIENT DEMOGRAPHICS: Age: 74 years, Gender: Female SCANNER INFORMATION: DXA Model: [email or web address] - [employer] C 97839 Date Scanned: 02/22/2025 12:59 PM CLINICAL HISTORY: [...] FOR MORE INFORMATION ABOUT DIAGNOSIS AND TREATMENT: [facility] for Osteoporosis and Metabolic Bone Disease:? www.ccf.org/yohana s/osteo National Osteoporosis Foundation:? www.nof.org International Society of Clinical Densitometry www.iscd.org Associate Attorney: OG Transcribe Date/Time: Feb 22 2025 1:13P Dictated by : AUSTYN FOUNTAIN MD This examination was interpreted and the report reviewed and electronically signed by: AUSTYN FOUNTAIN MD on Feb 22 2025 1:40PM EST [facility] SONIA SCREENING W TOMOon 02-22 SONIA SCREENING W GERMAN * * *Final Report* * * DATE OF EXAM: Feb 22 2025 1:36PM [facility] 0582 - SONIA SCREENING W GERMAN / PROCEDURE REASON: Encounter for screening mammogram for breast cancer * * * * Physician Interpretation * * * * RESULT: [facility] [address] [place] [address] #[id number] - SONIA SCREENING W GERMAN HISTORY: 74 [...] Ishaan Bruner M.D. Electronically signed on: 02/25/2025 Associate Attorney: MAGVIW Transcribe Date/Time: Feb 22 2025 12:56P Dictated by: ISHAAN BRUNER MD This examination was interpreted and the report reviewed and electronically signed by: ISHAAN BRUNER MD on Feb 25 2025 10:49PM EST [id number] CN Normal [facility] Panel InformationOrdered By: [facility] Provider on 02-22-2025 LOWEST T-SCORE -1.8 [facility] Panel Informationon 02-22 IMPRESSION: THE LOWEST T-SCORE [...] FOR MORE INFORMATION ABOUT DIAGNOSIS AND TREATMENT: [facility] for Osteoporosis and Metabolic Bone Disease:? www.ccf.org/arthriti s/osteo National Osteoporosis Foundation:? www.nof.org International Society of Clinical Densitometry www.iscd.org Associate Attorney: OG Transcribe Date/Time: Feb 22 2025 1:13P Dictated by : AUSTYN FOUNTAIN MD This examination was interpreted and the report reviewed and electronically signed by: AUSTYN FOUNTAIN MD on Feb 22 2025 1:40PM EST DIVISION OF RADIOLOGY Radiology Study observation (narrative) Maryam Romero Bacteria Ur Culton 5 Bacteria identified Cx Nom (U) ORGANISM ID: [...] , Intermediate >32 , Resistant >64 Abnormal [facility] Comment on above: Performed By: #### 6 30-4 ####[facility] LABCLIA [id number] [place] [id number] [place] CNOVon 01-11-2025 CNOV Office Visit (FAMPWS) PRASHANT SHEFFIELD ([id number]) 1950 F Date Time Provider Department 01/11/25 12:40 PM [facility] During your visit today, we recorded the [...] ?F) Resp 16 Ht 154.5 cm (5' 0.83) Wt 63 kg (139 lb) SpO2 100% [...] Planning on going to assisted living at [facility]. Past medical history, appointments, medications, allergies reviewed. [...] disease (HCC) 02/07/[address] Man in [facility] Stage 3a chronic kidney disease (HCC) [...] area, Cervic (more content not included)... Normal [facility] CBC W Auto Differential pane l (Bld)on 01-05-2025 Basophils (Bld) [#/Vol] 0.05 10*3/uL Normal <0.11 [facility] Comment on above: Order Comment: Speci men Type: BLOOD SPECIMENOrdering Facility: [facility] Address: [address] [place] [address] Performed By: #### 5 7021-8 ####[facility] LABCLIA [id number] [place] [address] [place] Basophils/100 WBC (Bld) 0.7 % Normal C [facility] Comment on above: Order Comment: Speci men Type: BLOOD SPECIMENOrdering Facility: [facility] Address: [address] [place] [address] Performed By: #### 5 7021-8 ####[facility] LABCLIA [id number] [place] [address] [place] Differential cell count method Nom (Bld) Auto Normal [facility] Comment on above: Order Comment: Speci men Type: BLOOD SPECIMENOrdering Facility: [facility] Address: [address] [place] [address] Performed By: #### 5 7021-8 ####[facility] LABCLIA [id number] [place] [address] [place] Eosinophils (Bld) [#/Vol] 0.27 10*3/uL Normal <0.46 [facility] Comment on above: Order Comment: Speci men Type: BLOOD SPECIMENOrdering Facility: [facility] Address: [address] [place] [address] Performed By: #### 5 7021-8 ####[facility] LABIA [id number] [place] [address] [place] Eosinophils/100 WBC (Bld) 4.0 % Normal [facility] Comment on above: Order Comment: Speci men Type: BLOOD SPECIMENOrdering Facility: [facility] Address: [address] [place] [address] Performed By: #### 5 7021-8 ####[facility] LABIA [id number] [place] [address] [place] Erythrocyte distribution width (RBC) [Ratio] 13.7 % Normal 11.5-15.0 [facility] Comment on above: Order Comment: Speci men Type: BLOOD SPECIMENOrdering Facility: [facility] Address: [address] [place] [address] Performed By: #### 5 7021-8 ####[facility] LABIA [id number] [place] [address] [place] Hematocrit (Bld) [Volume fraction] 36.1 % Normal 36.0-46.0 [facility] Comment on above: Order Comment: Speci men Type: BLOOD SPECIMENOrdering Facility: [facility] Address: [address] [place] [address] Performed By: #### 5 7021-8 ####[facility] LABCLIA [id number] [place] [address] [place] Hemoglobin (Bld) [Mass/Vol] 11.3 g/dL Low 11.5-15.5 [facility] Comment on above: Order Comment: Speci men Type: BLOOD SPECIMENOrdering Facility: [facility] Address: [address] [place] [address] Performed By: #### 5 7021-8 ####[facility] LABCLIA [id number] [place] [address] [place] Immature granulocytes (Bld) [#/Vol] 10*3/uL Normal <0.10 [facility] Comment on above: Order Comment: Speci men Type: BLOOD SPECIMENOrdering Facility: [facility] Address: [address] [place] [address] Performed By: #### 5 7021-8 ####[facility] LABIA [id number] [place] [address] [place] Immature granulocytes/100 WBC (Bld) 0.3 % Normal [facility] Comment on above: Order Comment: Speci men Type: BLOOD SPECIMENOrdering Facility: [facility] Address: [address] [place] [address] Performed By: #### 5 7021-8 ####[facility] LABIA [id number] [place] [address] [place] Lymphocytes (Bld) [#/Vol] 2.25 10*3/uL Normal 1.00-4.00 [facility] Comment on above: Order Comment: Speci men Type: BLOOD SPECIMENOrdering Facility: [facility] Address: [address] [place] [address] Performed By: #### 5 7021-8 ####[facility] LABIA [id number] [place] [address] [place] Lymphocytes/100 WBC (Bld) 33.3 % Normal [facility] Comment on above: Order Comment: Speci men Type: BLOOD SPECIMENOrdering Facility: [facility] Address: [address] [place] [address] Performed By: #### 5 7021-8 ####[facility] LABIA [id number] [place] [address] [place] MCH (RBC) [Entitic mass] 28.7 pg Normal 26.0-34.0 [facility] Comment on above: Order Comment: Speci men Type: BLOOD SPECIMENOrdering Facility: [facility] Address: [address] [place] [address] Performed By: #### 5 7021-8 ####[facility] LABIA [id number] [place] [address] [place] MCHC (RBC) [Mass/Vol] 31.3 g/dL Normal 30.5-36.0 [facility] Comment on above: Order Comment: Speci men Type: BLOOD SPECIMENOrdering Facility: [facility] Address: [address] [place] [address] Performed By: #### 5 7021-8 ####[facility] LABIA [id number] [place] [address] [place] MCV (RBC) [Entitic vol] 91.6 fL Normal 80.0-100.0 C [facility] Comment on above: Order Comment: Speci men Type: BLOOD SPECIMENOrdering Facility: [facility] Address: [address] [place] [address] Performed By: #### 5 7021-8 ####[facility] LABIA [id number] [place] [address] [place] Monocytes (Bld) [#/Vol] 0.57 10*3/uL Normal <0.87 [facility] Comment on above: Order Comment: Speci men Type: BLOOD SPECIMENOrdering Facility: [facility] Address: [address] [place] [address] Performed By: #### 5 7021-8 ####[facility] LABCLIA [id number] [place] [address] [place] Monocytes/100 WBC (Bld) 8.4 % Normal [facility] Comment on above: Order Comment: Speci men Type: BLOOD SPECIMENOrdering Facility: [facility] Address: [address] [place] [address] Performed By: #### 5 7021-8 ####[facility] LABCLIA [id number] [place] [address] [place] Neutrophils (Bld) [#/Vol] 3.60 10*3/uL Normal 1.45-7.50 [facility] Comment on above: Order Comment: Speci men Type: BLOOD SPECIMENOrdering Facility: [facility] Address: [address] [place] [address] Performed By: #### 5 7021-8 ####[facility] LABCLIA [id number] [place] [address] [place] Neutrophils/100 WBC (Bld) 53.3 % Normal [facility] Comment on above: Order Comment: Speci men Type: BLOOD SPECIMENOrdering Facility: [facility] Address: [address] [place] [address] Performed By: #### 5 7021-8 ####[facility] LABCLIA [id number] [place] [address] [place] Nucleated RBC (Bld) [#/Vol] 10*3/uL Normal <0.01 [facility] Comment on above: Order Comment: Speci men Type: BLOOD SPECIMENOrdering Facility: [facility] Address: [address] [place] [address] Performed By: #### 5 7021-8 ####[facility] LABCLIA [id number] [place] [address] [place] Nucleated RBC/100 WBC (Bld) [Ratio] 0.0 /100 WBC Normal [facility] Comment on above: Order Comment: Speci men Type: BLOOD SPECIMENOrdering Facility: [facility] Address: [address] [place] [address] Performed By: #### 5 7021-8 ####[facility] LABCLIA [id number] [place] [address] [place] Platelet mean volume (Bld) [Entitic vol] 11.6 fL Normal 9.0-12.7 [facility] Comment on above: Order Comment: Speci men Type: BLOOD SPECIMENOrdering Facility: [facility] Address: [address] [place] [address] Performed By: #### 5 7021-8 ####[facility] LABCLIA [id number] [place] [address] [place] Platelets (Bld) [#/Vol] 216 10*3/uL Normal 150-400 [facility] Comment on above: Order Comment: Speci men Type: BLOOD SPECIMENOrdering Facility: [facility] Address: [address] [place] [address] Performed By: #### 5 7021-8 ####[facility] LABCLIA [id number] [place] [address] [place] RBC (Bld) [#/Vol] 3.94 10*6/uL Normal 3.90-5.20 [facility] Comment on above: Order Comment: Speci men Type: BLOOD SPECIMENOrdering Facility: [facility] Address: [address] [place] [address] Performed By: #### 5 7021-8 ####[facility] LABCLIA [id number] [place] [address] [place] WBC (Bld) [#/Vol] 6.76 10*3/uL Normal 3.70-11.00 [facility] Comment on above: Order Comment: Speci men Type: BLOOD SPECIMENOrdering Facility: [facility] Address: [address] [place] [address] Performed By: #### 5 7021-8 ####[facility] LABIA [id number] [address] [address] [place] Comprehensive metabolic 2000 panelon 01-05-2025 Albumin [Mass/Vol] 4.5 g/dL Normal 3.9-4.9 [facility] Comment on above: Order Comment: Speci men Type: BLOOD SPECIMENOrdering Facility: [facility] Address: [address] [place] [address] Performed By: #### 2 4323-8, 17958-9, 78658-3, LIPNF ####[facility] LABIA [id number] [place] [address] [place] ALP [Catalytic activity/Vol] 67 U/L Normal 34-123 [facility] Comment on above: Order Comment: Speci men Type: BLOOD SPECIMENOrdering Facility: [facility] Address: [address] [place] [address] Performed By: #### 2 4323-8, 09465-3, 74576-3, LIPNF ####[facility] LABIA [id number] [place] [address] [place] ALT [Catalytic activity/Vol] 20 U/L Normal 7-38 [facility] Comment on above: Order Comment: Speci men Type: BLOOD SPECIMENOrdering Facility: [facility] Address: [address] [place] [address] Performed By: #### 2 4323-8, 66330-1, 64665-3, LIPNF ####[facility] LABIA [id number] [place] [address] [place] Anion gap [Moles/Vol] 11 mmol/L Normal 8-15 [facility] Comment on above: Order Comment: Speci men Type: BLOOD SPECIMENOrdering Facility: [facility] Address: [address] [place] [address] Performed By: #### 2 4323-8, 88857-2, 35542-8, LIPNF ####[facility] LABCLIA [id number] [place] [address] [place] AST [Catalytic activity/Vol] 19 U/L Normal 13-35 [facility] Comment on above: Order Comment: Speci men Type: BLOOD SPECIMENOrdering Facility: [facility] Address: [address] [place] [address] Performed By: #### 2 4323-8, 23553-6, 65566-2, LIPNF ####[facility] LABCLIA [id number] [place] [address] [place] Bilirubin [Mass/Vol] 0.3 mg/dL Normal 0.2-1.3 [facility] Comment on above: Order Comment: Speci men Type: BLOOD SPECIMENOrdering Facility: [facility] Address: [address] [place] [address] Performed By: #### 2 4323-8, 73879-9, 56097-8, LIPNF ####[facility] LABCLIA [id number] [place] [address] [place] Calcium [Mass/Vol] 10.0 mg/dL Normal 8.5-10.2 [facility] Comment on above: Order Comment: Speci men Type: BLOOD SPECIMENOrdering Facility: [facility] Address: [address] [place], [place] [address] Performed By: #### 2 4323-8, 43568-5, 63947-5, LIPNF ####[facility] LABCLIA [id number] [place] [address] [place] Chloride [Moles/Vol] 102 mmol/L Normal 98-107 [facility] Comment on above: Order Comment: Speci men Type: BLOOD SPECIMENOrdering Facility: [facility] [facility] Address: [address] [place] [address] Performed By: #### 2 4323-8, 24526-5, 46298-9, LIPNF ####[facility] LABIA [id number] [place] [address] [place] CO2 [Moles/Vol] 26 mmol/L Normal 22-30 [facility] Comment on above: Order Comment: Speci men Type: BLOOD SPECIMENOrdering Facility: [facility] Address: [address] [place] [address] Performed By: #### 2 4323-8, 14716-5, 84253-5, LIPNF ####[facility] LABIA [id number] [place] [address] [place] Creatinine [Mass/Vol] 1.09 mg/dL High 0.58-0.96 [facility] Comment on above: Order Comment: Speci men Type: BLOOD SPECIMENOrdering Facility: [facility] Address: [address] [place] [address] Performed By: #### 2 4323-8, 89569-9, 16442-6, LIPNF ####[facility] LABIA [id number] [place] [address] [place] Creatinine and Glomerular filtration rate.predicted panel (S/P/Bld) 54 mL/min/1.73m??? Low >=60 [facility] Comment on above: Order Comment: Speci men Type: BLOOD SPECIMENOrdering Facility: [facility] Address: [address] [place] [address] Result Comment: Monet mated Glomerular Filtration Rate [...] actual GFR. Performed By: #### 2 4323-8, 25500-2, 20016-7, LIPNF ####[facility] LABCLIA [id number] [place] [id number] [place] Glucose [Mass/Vol] 82 mg/dL Normal 74-99 [facility] Comment on above: Order Comment: Speci men Type: BLOOD SPECIMENOrdering Facility: [facility] Address: [address] [place] [address] Result Comment: The [place] Diabetes Association (ADA) provides guidance for cutoff [...] Standards of Medical Care in Diabetes 2016, [place] Diabetes Association. Diabetes Care. 2016.39(Suppl 1). Performed By: #### 2 4323-8, 55965-9, 51063-6, LIPNF ####[facility] LABIA [id number] [place] [address] [place] Potassium [Moles/Vol] 5.0 mmol/L Normal 3.7-5.1 [facility] Comment on above: Order Comment: Speci men Type: BLOOD SPECIMENOrdering Facility: [facility] Address: [address] [place] [address] Performed By: #### 2 4323-8, 18794-7, 99511-0, LIPNF ####[facility] LABIA [id number] [place] [address] [place] Protein [Mass/Vol] 6.9 g/dL Normal 6.3-8.0 [facility] Comment on above: Order Comment: Speci men Type: BLOOD SPECIMENOrdering Facility: [facility] Address: [address] [place], [place] [id number] Performed By: #### 2 4323-8, 32648-7, 27362-8, LIPNF ####[facility]IA [id number] [place] [address] [place] Sodium [Moles/Vol] 139 mmol/L Normal 136-144 [facility] Comment on above: Order Comment: Speci men Type: BLOOD SPECIMENOrdering Facility: [facility] Address: [address] [place] [address] Performed By: #### 2 4323-8, 83551-5, 53796-0, LIPNF ####[facility] [id number] [place] [address] [place] Urea nitrogen [Mass/Vol] 21 mg/dL Normal 7-21 [facility] Comment on above: Order Comment: Speci men Type: BLOOD SPECIMENOrdering Facility: [facility] Address: [address] [place] [address] Performed By: #### 2 4323-8, 38975-1, 95614-5, LIPNF ####[facility] [id number] [place] [address] [place] HbA1c (Bld)on 01-05-2025 Average glucose Estimated from glycated hemoglobin (Bld) [Mass/Vol] 108 mg/dL Normal [facility] Comment on above: Order Comment: Speci men Type: BLOOD SPECIMENOrdering Facility: [facility] Address: [address] [place] [address] Result Comment: eAG: (Estimated average glucose) is a calculated value from HgbA1c and is claims representative of the average blood glucose level in the last 2-3 month period. Performed By: #### 5 5454-3 ####[facility]IA [id number] [place] [address] [place] HbA1c (Bld) [Mass fraction] 5.4 % Normal 4.3-5.6 [facility] Comment on above: Order Comment: Speci men Type: BLOOD SPECIMENOrdering Facility: [facility] Address: [address] [place] [address] Result Comment: Amer ican Diabetes Association guidelines indicate that patients with HgbA1c in the range 5.7-6.4% are at increased risk for development of diabetes, and intervention by lifestyle modification may be beneficial. HgbA1c greater or equal to 6.5% is considered diagnostic of diabetes. Performed By: #### 5 5454-3 ####[facility] LABCLIA [id number] [place] [address] [place] Iron and Iron binding capaci ty panelon 01-05-2025 Iron [Mass/Vol] 61 ug/dL Normal 41-186 [facility] Comment on above: Order Comment: Speci men Type: BLOOD SPECIMENOrdering Facility: [facility] Address: [address] [place] [address] Performed By: #### 2 4323-8, 66620-2, 56273-0, LIPNF ####[facility] LABCLIA [id number] [place] [address] [place] Iron binding capacity [Mass/Vol] 291 ug/dL Normal 232-386 [facility] Comment on above: Order Comment: Speci men Type: BLOOD SPECIMENOrdering Facility: [facility] Address: [address] [place] [address] Performed By: #### 2 4323-8, 73582-4, 07441-0, LIPNF ####[facility] LABCLIA [id number] [place] [id number] [place] Iron/TIBC [Molar ratio] 21.0 % Normal 15.0-57.0 [facility] Comment on above: Order Comment: Speci men Type: BLOOD SPECIMENOrdering Facility: [facility] Address: [address] [place] [address] Performed By: #### 2 4323-8, 44917-4, 52408-2, LIPNF ####[facility] LABCLIA [id number] [place] [address] [place] LIPID PANEL, NONFASTINGon Cholesterol [Mass/Vol] 162 mg/dL Normal <200 [facility] Comment on above: Order Comment: Speci men Type: BLOOD SPECIMENOrdering Facility: [facility] Address: [address] [place] [address] Result Comment: <200 mg/dL, Desirable 200-239 mg/dL, Borderline high >239 mg/dL, High Performed By: #### 2 4323-8, 85538-6, 80009-9, LIPNF ####[facility] LABCLIA [id number] [place] [address] [place] HDL CHOLESTEROL, NF 68 mg/dL Normal >39 [facility] Comment on above: Order Comment: Speci men Type: BLOOD SPECIMENOrdering Facility: [facility] Address: [address] [place] [address] Result Comment: 40-5 9 mg/dL, Acceptable >59 mg/dL, High: Negative risk factor for coronary heart disease <40 mg/dL, Low: Positive risk factor for coronary heart disease Performed By: #### 2 4323-8, 54518-6, 33140-5, LIPNF ####[facility] LABCLIA [id number] [place] [address] [place] LDL CHOLESTEROL, NF 79 mg/dL Normal <100 [facility] Comment on above: Order Comment: Speci men Type: BLOOD SPECIMENOrdering Facility: [facility] Address: [address] [place] [address] Result Comment: <100 mg/dL, Optimal 100-129 mg/dL, Near optimal/above optimal 130-159 mg/dL, Borderline high 160-189 mg/dL, High >189 mg/dL, Very high Secondary prevention optimal LDL Cholesterol levels are recommended to be < 70 mg/dL Performed By: #### 2 4323-8, 57328-3, 74092-6, LIPNF ####[facility] LABCLIA [id number] [place] [address] [place] LDL/HDL RATIO, NF 1.16 mg/dL Normal <2.54 [facility] Comment on above: Order Comment: Paigei men Type: BLOOD SPECIMENOrdering Facility: [facility] Address: [address] [place] [address] Result Comment: Refe rence: 1. National Cholesterol Education Program ATP III Guideline At-A-Glance Quick Desk Reference: National Heart, Lung, and Blood [place]. National Institutes of Health. 2001: NIH Publication No. 01-3305. 2. An International Atherosclerosis Society position paper: global recommendations for the management of dyslipidemia: executive summary, Atherosclerosis. 2014: 232(2):410-413. Performed By: #### 2 4323-8, 63214-3, 45874-3, LIPNF ####[facility] LABCLIA [id number] [place] [address] [place] NON HDL CHOL, NF 94 mg/dL Normal <130 [facility] Comment on above: Order Comment: Abilio tam Type: BLOOD SPECIMENOrdering Facility: [facility] Address: [address] [place] [address] Result Comment: <130 mg/dL, Optimal 130-159 mg/dL, Near optimal/above optimal 160-189 mg/dL, Borderline high 190-219 mg/dL, High >219 mg/dL, Very high Secondary prevention optimal non HDL Cholesterol levels are recommended to be <100 mg/dL Performed By: #### 2 4323-8, 63951-4, 14769-7, LIPNF ####[facility] LABCLIA [id number] [place] [address] [place] T CHOL/HDL RATIO NF 2.38 mg/dL Normal <5.10 [facility] Comment on above: Order Comment: Paigei men Type: BLOOD SPECIMENOrdering Facility: [facility] Address: [address] [place] [address] Performed By: #### 2 4323-8, 73602-1, 06708-9, LIPNF ####[facility] LABCLIA [id number] [place] [address] [place] TRIGLYCERIDES, NF 74 mg/dL Normal <150 [facility] Comment on above: Order Comment: Speci men Type: BLOOD SPECIMENOrdering Facility: [facility] Address: [address] [place] [address] Result Comment: <150 mg/dL, Normal 150-199 mg/dL, Borderline high 200-499 mg/dL, High >499 mg/dL, Very high Performed By: #### 2 4323-8, 16910-9, 83073-2, LIPNF ####[facility]IA [id number] [place] [address] [place] VLDL CHOLESTEROL, NF 15 mg/dL Normal <30 [facility] Comment on above: Order Comment: Speci men Type: BLOOD SPECIMENOrdering Facility: [facility] Address: [address] [place] [address] Performed By: #### 2 4323-8, 65250-9, 26893-6, LIPNF ####[facility] LABIA [id number] [place] [address] [place] Magnesium SerPl-mCncon 01-05 Magnesium [Mass/Vol] 2.2 mg/dL Normal 1.7-2.3 [facility] Comment on above: Order Comment: Speci men Type: BLOOD SPECIMENOrdering Facility: [facility] Address: [address] [place] [address] Performed By: #### 2 4323-8, 99464-3, 70037-3, LIPNF ####[facility] LABIA [id number] [place] [address] [place] Urinalysis complete panel (U )on 01-05-2025 BACTERIA UL >9821 High Negative [facility] Comment on above: Order Comment: Speci men Type: URINE SPECIMENOrdering Facility: [facility] Address: [address] [place] [address] Performed By: #### 2 4356-8 ####[facility] LABCLIA [id number] [place] [address] [place] Bilirubin Ql (U) Negative Normal Negative [facility] Comment on above: Order Comment: Speci men Type: URINE SPECIMENOrdering Facility: [facility] Address: [address] [place] [address] Performed By: #### 2 4356-8 ####[facility] LABCLIA [id number] [place] [address] [place] Clarity (Unsp spec) Clear Normal Clear [facility] Comment on above: Order Comment: Speci men Type: URINE SPECIMENOrdering Facility: [facility] Address: [address] [place] [address] Performed By: #### 2 4356-8 ####[facility] LABCLIA [id number] [place] [address] [place] [facility] Color (U) Yellow Normal Yellow [facility] Comment on above: Order Comment: Speci men Type: URINE SPECIMENOrdering Facility: [facility] Address: [address] [place] [address] Performed By: #### 2 4356-8 ####[facility] LABCLIA [id number] [place] [address] [place] Epithelial cells LM.HPF (Urine sed) [#/Area] None Seen Normal [facility] Comment on above: Order Comment: Speci men Type: URINE SPECIMENOrdering Facility: [facility] Address: [address] [place] [address] Performed By: #### 2 4356-8 ####[facility] LABCLIA [id number] [place] [address] [place] Glucose Test strip (U) [Mass/Vol] Negative Normal Negative [facility] Comment on above: Order Comment: Speci men Type: URINE SPECIMENOrdering Facility: [facility] Address: [address] [place] [address] Performed By: #### 2 4356-8 ####[facility] LABCLIA [id number] [place] [address] [place] Hemoglobin Ql (U) Negative Normal Negative [facility] Comment on above: Order Comment: Speci men Type: URINE SPECIMENOrdering Facility: [facility] Address: [address] [place] [address] Performed By: #### 2 4356-8 ####[facility] LABCLIA [id number] [place] [address] [place] Hyaline casts (Urine sed) [#/Area] 0 /[LPF] Normal 0 /LPF [facility] Comment on above: Order Comment: Speci men Type: URINE SPECIMENOrdering Facility: [facility] Address: [address] [place] [address] Performed By: #### 2 4356-8 ####[facility] LABCLIA [id number] [place] [address] [place] Ketones Ql (U) Negative Normal Negative [facility] Comment on above: Order Comment: Speci men Type: URINE SPECIMENOrdering Facility: [facility] Address: [address] [place] [address] Performed By: #### 2 4356-8 ####[facility] LABCLIA [id number] [place] [address] [place] Leukocyte esterase Test strip Ql (U) 1+ Abnormal Negative [facility] Comment on above: Order Comment: Speci men Type: URINE SPECIMENOrdering Facility: [facility] Address: [address] [place] [address] Performed By: #### 2 4356-8 ####[facility] LABCLIA [id number] [place] [address] [place] Nitrite Ql (U) Positive Abnormal Negative [facility] Comment on above: Order Comment: Speci men Type: URINE SPECIMENOrdering Facility: [facility] Address: [address] [place] [address] Performed By: #### 2 4356-8 ####[facility] LABIA [id number] [place] [address] [place] pH (U) 6.5 [pH] Normal <8.5 [facility] Comment on above: Order Comment: Speci men Type: URINE SPECIMENOrdering Facility: [facility] Address: [address] [place] [address] Performed By: #### 2 4356-8 ####[facility] LABIA [id number] [place] [address] [place] Protein (U) [Mass/Vol] Negative Normal Negative [facility] Comment on above: Order Comment: Speci men Type: URINE SPECIMENOrdering Facility: [facility] Address: [address] [place] [address] Performed By: #### 2 4356-8 ####[facility] LABIA [id number] [place] [address] [place] RBC LM.HPF (Urine sed) [#/Area] 0-2 /HPF Normal 0-2 /HPF [facility] Comment on above: Order Comment: Speci men Type: URINE SPECIMENOrdering Facility: [facility] Address: [address] [place] [address] Performed By: #### 2 4356-8 ####[facility] LABIA [id number] [place] [address] [place] Specific gravity (U) [Rel density] 1.017 Normal 1.005-1.030 [facility] Comment on above: Order Comment: Speci men Type: URINE SPECIMENOrdering Facility: [facility] Address: [address] [place] [address] Performed By: #### 2 4356-8 ####[facility] [id number] [place] [address] [place] Urobilinogen Ql (U) 0.2 EU/dL Normal 0.2-1.0 EU/dL Cl [facility] Comment on above: Order Comment: Speci men Type: URINE SPECIMENOrdering Facility: [facility] Address: [address] [place] [address] Performed By: #### 2 4356-8 ####[facility] [id number] [place] [address] [place] WBC LM.HPF (Urine sed) [#/Area] /[HPF] Abnormal 0-5 /HPF [facility] Comment on above: Order Comment: Speci men Type: URINE SPECIMENOrdering Facility: [facility] Address: [address] [place] [address] Performed By: #### 2 4356-8 ####[facility] [id number] [place] [address] [place] Vit B12 [facility]2 025 Cobalamin (Vitamin B12) [Mass/Vol] 1135 pg/mL Normal 232-1245 [facility] Comment on above: Order Comment: Speci men Type: BLOOD SPECIMENOrdering Facility: [facility] Address: [address] [place] [address] Performed By: #### 2 132-9 ####[facility] [id number] [place] [address] [place] Modified Barium Swallow Stud yon 12-11-2024 Modified Barium Swallow Study [facility] Speech Pathology [address] [place] [address] Modified Barium Swallow Study MR#: [id number] Acct: [id number] Name: PRASHANT SHEFFIELDN Rep #: [id number] : 1950 74 From: Kathy Leung M.A., [facility]-NON EMERGENCY SERVICES AMBULANCE DRIVER Modified Barium Swallow Patient Information Study Date: 12/11/24 Study Time: 12:30 Direct Billable Minutes: 115 Total Minutes procedure reportin Diagnosis: Dysphagia R13.10 Referring Physician: Gold Colon Reason for Referral: Re-assess swallow function and aspiration risk to determine LRD textures and strategies to decrease risk for aspiration. This NON EMERGENCY SERVICES AMBULANCE DRIVER spoke w/ pt's OP NON EMERGENCY SERVICES AMBULANCE DRIVER, Fallon Martinez, prior to MBSS. Will consider [...] Result: 5= enters airways/contacts vocal folds/not ejected [place] Thick Liquid via small single sip: cup: [...] Result: 5= enters airways/contacts vocal folds/not ejected [place] Thick Liquid via single sip: straw: Result: 1= does not enter airway [place] Thick Liquid via single sip: straw Trial [...] No bolu (more content not included)... Normal [facility] SP/HP.SP.Sherri 11-24-2024 SP/HP.SP.EV [facility] Speech Pathology [facility] [address] [place] [address] / REHABILITATION SERVICES INITIAL EVALUATION MR#: [id number] Acct: [id number] Name: PRASHANT SHEFFIELD Rep #: [id number] : 1950 74 From: Malgorzata Martinez M.S., [facility]-NON EMERGENCY SERVICES AMBULANCE DRIVER Referring Dr.: Gold Colon Status: REG RCR Insurance: MEDICARE PART A B ANTHEM Visit History Visit Info Date of Eval: 11/23/24 Visit: 1 Charter Coordinator: JULIANO Naranjo Attending Doctor: ALINA Referring Doctor: ALINA Reason for Referral: DYSPHAGIA. RX HERE Previous speech therapy: Yes Results: Evaluation on 01/16/2022 with MBSS on 01/30/22, along with tx for dysphagia and voice Other Relevant Medical History/Diagnoses/Olmos rgery: PRASHANT SHEFFIELD is a 74 year old female who presents to [facility] Speech Therapy PMH history including Parkinson's (diagnosed 5-6 years ago), Dyslipidemia, GERD without esophagitis, Hypertension, Oropharyngeal Dysphagia (SEE H P for full PMH). She has a hx of falls, which resulted in her hitting the back of her head without loss of consciousness. The patient had BSE completed at [facility] rehabilitation 01/16/2022 recommending MBS study to objectively [...] started noticing intermittent coughing while drinking along randomly when sitting in a chair. At her [...] current prescribed condition?: No Personal Preferred language: Gu[place]ese Patient Allergies Allergies Allergies: Allergies codeine Adverse Reaction (Verified 09/03/23 13:40) CRAZY DREAMS DOES NOT LIKE TO TAKE IT Subjective [...] laryngeal elevation (more content not included)... Normal [facility] MRI BRAIN W/ + W/O CONTRASTo [...] 02/18/2024 9:36:23 AM Ordering Provider: ELIO SERRATO [facility] ([place] CBC W Auto Differential pane l (Bld)on 09-25-2023 Basophils (Bld) [#/Vol] 0.05 10*3/uL <0.11 k/uL [facility] Basophils/100 WBC (Bld) 0.8 % [facility] Differential cell count method Nom (Bld) Auto [facility] Eosinophils (Bld) [#/Vol] 0.13 10*3/uL <0.46 k/uL [facility] Eosinophils/100 WBC (Bld) 2.0 % [facility] Erythrocyte distribution width (RBC) [Ratio] 14.6 % 11.5 - 15.0 % [facility] Hematocrit (Bld) [Volume fraction] 31.5 % Low 36.0 - 46.0 % [facility] Hemoglobin (Bld) [Mass/Vol] 9.7 g/dL Low 11.5 - 15.5 g/dL [facility] Immature granulocytes (Bld) [#/Vol] <0.10 k/uL [facility] Immature granulocytes/100 WBC (Bld) 0.2 % [facility] Lymphocytes (Bld) [#/Vol] 1.71 10*3/uL 1.00 - 4.00 k/uL [facility] Lymphocytes/100 WBC (Bld) 26.8 % [facility] MCH (RBC) [Entitic mass] 29.0 pg 26. 0 - 34.0 pg [facility] MCHC (RBC) [Mass/Vol] 30.8 g/dL 30.5 - 36.0 g/dL [facility] MCV (RBC) [Entitic vol] 94.0 fL 80.0 - 100.0 fL [facility] Monocytes (Bld) [#/Vol] 0.49 10*3/uL <0.87 k/uL [facility] Monocytes/100 WBC (Bld) 7.7 % [facility] Neutrophils (Bld) [#/Vol] 4.00 10*3/uL 1.45 - 7.50 k/uL [facility] Neutrophils/100 WBC (Bld) 62.5 % [facility] Nucleated RBC (Bld) [#/Vol] <0.01 k/uL [facility] Nucleated RBC/100 WBC (Bld) [Ratio] 0.0 /100 WBC [facility] Platelet mean volume (Bld) [Entitic vol] 11.2 fL 9.0 - 12.7 fL [facility] Platelets (Bld) [#/Vol] 297 10*3/uL 150 - 400 k/uL [facility] RBC (Bld) [#/Vol] 3.35 10*6/uL Low 3.90 - 5.2 0 m/uL [facility] WBC (Bld) [#/Vol] 6.39 10*3/uL 3.70 - 11. 00 k/uL [facility] Absolute lymphocyte countOrd ered By: Ishaan Olson on 08-06-2023 Lymphocytes Auto (Unsp spec) [#/Vol] 1.33 10*3/uL 0.83-4.51 [facility] Basophil percentageOrdered B y: Ishaan Olson on 08-06-2023 Basophils/100 WBC (Bld) 0.3 % 0-1 [facility] Chloride [Moles/Vol] 112 mmol/L 98-107 [facility] Eosinophils/100 WBC (Bld) 3.2 % 0-5 [facility] Glucose [Mass/Vol] 103 mg/dL 74-106 [facility] Comment on above: Fasting Glucose resu lt from 100 to 125 mg/dL suggests IMPAIRED HOMEOSTASIS per A.D.A. criteria. Neutrophils (Bld) [#/Vol] 4.5 10*3/uL 2.0-7.7 [facility] Neutrophils/100 WBC (Bld) 66.5 % 47-70 [facility] Potassium [Moles/Vol] 3.5 mmol/L 3.5-5.1 [facility] Sodium [Moles/Vol] 140 mmol/L 136-145 [facility] WBC (Bld) [#/Vol] 6.8 10*3/uL 4.4-11.0 [facility] Blood erythrocytes count (nu mber/volume)Ordered By: Ishaan Olson on 08-06-2023 RBC (Bld) [#/Vol] 3.18 10*6/uL 4.2-5.4 [facility] Blood hemoglobin measurement (mass/volume)Ordered By: Ishaan Olson on 08-06-2023 Hemoglobin (Bld) [Mass/Vol] 9.1 g/dL 12.0-15.0 [facility] Blood lymphocytes/100 leukoc ytesOrdered By: Ishaan Olson on 08-06-2023 Lymphocytes/100 WBC (Bld) 19.4 % 19-41 [facility] Blood monocytes/100 leukocyt esOrdered By: Ishaan Olson on 08-06-2023 Monocytes/100 WBC (Bld) 10.2 % 0-10 [facility] Blood platelet mean volumeOr dered By: Ishaan Olson on 08-06-2023 Platelet mean volume (Bld) [Entitic vol] 10.1 fL 6.2-12.0 [facility] Determination of erythrocyte mean corpuscular volume (MCV)Ordered By: Ishaan Olson on 08-06-2023 MCV (RBC) [Entitic vol] 88.4 fL 81-99 [facility] Hematocrit Auto (Bld) [Volum e fraction]Ordered By: Ishaan Olson on 08-06-2023 Hematocrit (Bld) [Volume fraction] 28.1 % 37-47 [facility] Laboratory - Chemistry and C hemistry - challengeOrdered By: Ishaan Olson on 08-06-2023 CO2 [Moles/Vol] 23.0 mmol/L 21.0-32.0 [facility] Urea nitrogen/Creatinine [Mass ratio] 24.5 mg/mg 10-20 [facility] Laboratory - Hematology and Cell countsOrdered By: Ishaan Olson on 08-06-2023 Erythrocyte distribution width (RBC) [Entitic vol] 45.1 fL 35.1-43.9 [facility] Erythrocyte distribution width (RBC) [Ratio] 13.9 % 11.6-14.6 [facility] Immature granulocytes/100 WBC (Bld) 0.400 % 0.0-0.9 [facility] Comment on above: IG% - Immature Granu locytes (promyelocytes, myelocytes and metamyelocytes) > 1% indicates that a LEFT SHIFT is Present. MCH (RBC) [Entitic mass] 28.6 pg 27.0-32.0 [facility] Nucleated RBC/100 WBC (Bld) [Ratio] 0 % [facility]5 [facility] [Mass/Vol]Or dered By: Ishaan Olson on 08-06-2023 MCHC (RBC) [Mass/Vol] 32.4 g/dL 32-36 [facility] No Panel InformationOrdered By: Ishaan Olson on 08-06-2023 Estimated Creatinine Clearance Calc 40.22 ml/min [facility] Estimated GFR (MDRD) Amer 100 mL/min >60 [facility] Comment on above: GFR Calc Estimated GFR (MDRD) Non-Af Amer 82 mL/min >60 [facility] Comment on above: Non- GFR Calc Platelets bldOrdered By: Lee Olson on 08-06-2023 Platelets (Bld) [#/Vol] 279 10*3/uL 150-450 [facility] Serum or plasma calcium carlos urement (mass/volume)Ordered By: Ishaan Olson on 08-06-2023 Calcium [Mass/Vol] 8.0 mg/dL 8.5-10.1 [facility] Serum or plasma creatinine m easurement (mass/volume)Ordered By: Ishaan Olson on 08-06-2023 Creatinine [Mass/Vol] 0.74 mg/dL 0.55-1.02 [facility] Comment on above: The validity of the calculated GFR & GFRAA in patients over 70 years has not been determined. Clinical correlation is essential. Serum or plasma urea nitroge n measurement (mass/volume)Ordered By: Ishaan Olson on 08-06-2023 Urea nitrogen [Mass/Vol] 18 mg/dL 7-18 [facility] Thin prep Papanicolaou smear with manual screeningOrdered By: Ishaan Olson on 08-06-2023 Thin prep Papanicolaou smear with manual screening 5 5-15 [facility] Amorphous sediment detection in urine sediment by light microscopyOrdered By: Rain Bustos on 08-05-2023 Amorphous sediment LM Ql (Urine sed) 1+ URATE [facility] Basophil percentageOrdered B y: Rain Bustos on 08-05-2023 Basophil percentage 25-50 SEEN /hpf 0-5 [facility] Bilirubin Test strip Ql (U)O rdered By: Rain Bustos on 08-05-2023 Bilirubin Ql (U) 1 mg/dL Negative [facility] Comment on above: COLOR OF URINE MAY A FFECT DIPSTICK RESULTS. Ketones Test strip Ql (U)Ord ered By: Rain Bustos on 08-05-2023 Ketones Ql (U) 15 mg/dl Negative [facility] Mucus LM Ql (Urine sed)Order ed By: Rain Bustos on 08-05-2023 Mucus Ql (Urine sed) 0 SEEN /hpf [facility] Nitrite Test strip Ql (U)Ord ered By: Rain Bustos on 08-05-2023 Nitrite Ql (U) Positive Negative [facility] Protein Test strip Ql (U)Ord ered By: Rain Bustos on 08-05-2023 Protein Ql (U) 30 mg/dl Negative [facility] Squamous epithelial cells de tection in urine sediment by light microscopyOrdered By: Rain Bustos on 08-05-2023 Epithelial cells.squamous LM Ql (Urine sed) 0-5 SEEN /hpf 5-10 [facility] Urine blood detectionOrdered By: Rain Bustos on 08-05-2023 RBC Ql (U) 10 /ul Negative [facility] RBC Ql (U) 0-5 SEEN /hpf 0-5 [facility] Urine clarityOrdered By: Jessi Bustos on 08-05-2023 Clarity (U) Sl. Cloudy Clear [facility] Urine color determinationOrd ered By: Rain Bustos on 08-05-2023 Color (U) Yellow Yellow [facility] Urine glucose detectionOrder ed By: Rain Bustos on 08-05-2023 Glucose Ql (U) Normal mg/dl Normal [facility] Urine leukocyte esterase det ection by dipstickOrdered By: Rain Bustos on 08-05-2023 Leukocyte esterase Test strip Ql (U) 500 /ul Negative [facility] Urine pHOrdered By: Rain pearl on 08-05-2023 pH (U) 5.0 [pH] 5.0 - 8.0 [facility] Urine sediment bacteria coun t by microscopy (number/high power field)Ordered By: Rain Bustos on 08-05-2023 Bacteria LM.HPF (Urine sed) [#/Area] 3 /[HPF] None Seen [facility] Urine specific gravity measu rementOrdered By: Rain Bustos on 08-05-2023 Specific gravity (U) [Rel density] 1.030 1.002-1.030 [facility] Urobilinogen Auto test strip Ql (U)Ordered By: Rain Bustos on 08-05-2023 Urobilinogen Ql (U) 1 mg/dl Normal [facility] Review by pathologistOrdered By: Ishaan Olson on 08-04-2023 Pathologist review Collin (Unsp spec) [Interp] Reviewed [facility] Comment on above: Previous reported re sult: Nicole ferraro Edited by: JONG on 08/05/23:1342Normocytic anemia.Clinical correlation necessary.Emmanuel Gracia M.D. 08/05/23 AMENDED REPORT 08/05/23 1342 PATH REV previously reported as: Nicole ferraro Absolute lymphocyte countOrd ered By: Vladislav Crawford on 08-01-2023 Lymphocytes Auto (Unsp spec) [#/Vol] 0.61 10*3/uL 0.83-4.51 [facility] Basophil percentageOrdered B y: Vladislav Crawford on 08-01-2023 Basophils/100 WBC (Bld) 0.2 % 0-1 [facility] Bilirubin [Mass/Vol] 0.50 mg/dL 0.20-1.00 [facility] Comment on above: For patients on eltr ombopag therapy, use of Dimension [place] TBIL is not recommended. Chloride [Moles/Vol] 105 mmol/L 98-107 [facility] Eosinophils/100 WBC (Bld) 0.0 % 0-5 [facility] Glucose [Mass/Vol] 130 mg/dL 74-106 [facility] Comment on above: Fasting Glucose resu lt greater than or equal to 126 mg/dL suggests DIABETES MELLITUS per A.D.A. criteria. Neutrophils (Bld) [#/Vol] 11.1 10*3/uL 2.0-7.7 [facility] Neutrophils/100 WBC (Bld) 92.2 % 47-70 [facility] Potassium [Moles/Vol] 3.8 mmol/L 3.5-5.1 [facility] Protein [Mass/Vol] 7.5 g/dL 6.4-8.2 [facility] Sodium [Moles/Vol] 136 mmol/L 136-145 [facility] WBC (Bld) [#/Vol] 12.1 10*3/uL 4.4-11.0 [facility] Blood erythrocytes count (nu mber/volume)Ordered By: Vladislav Crawford on 08-01-2023 RBC (Bld) [#/Vol] 4.10 10*6/uL 4.2-5.4 [facility] Blood hemoglobin measurement (mass/volume)Ordered By: Vladislav Crawford on 08-01-2023 Hemoglobin (Bld) [Mass/Vol] 11.5 g/dL 12.0-15.0 [facility] Blood lymphocytes/100 leukoc ytesOrdered By: Vladislav Crawford on 08-01-2023 Lymphocytes/100 WBC (Bld) 5.1 % 19-41 [facility] Blood monocytes/100 leukocyt esOrdered By: Vladislav Crawford on 08-01-2023 Monocytes/100 WBC (Bld) 2.1 % 0-10 [facility] Blood platelet mean volumeOr dered By: Vladislav Crawford on 08-01-2023 Platelet mean volume (Bld) [Entitic vol] 11.4 fL 6.2-12.0 [facility] Determination of erythrocyte mean corpuscular volume (MCV)Ordered By: Vladislav Crawford on 08-01-2023 MCV (RBC) [Entitic vol] 88.8 fL 81-99 [facility] Hematocrit Auto (Bld) [Volum e fraction]Ordered By: Vladislav Crawford on 08-01-2023 Hematocrit (Bld) [Volume fraction] 36.4 % 37-47 [facility] INR in Blood by Coagulation assayOrdered By: Vladislav Crawford on 08-01-2023 INR Coag (Bld) [Relative time] 1.1 {INR} [facility] Laboratory - Chemistry and C hemistry - challengeOrdered By: Vladislav Crawford on 08-01-2023 ALP [Catalytic activity/Vol] 79 U/L 45-117 [facility] ALT [Catalytic activity/Vol] 25 U/L 13-56 [facility] CO2 [Moles/Vol] 25.0 mmol/L 21.0-32.0 [facility] Globulin (S) [Mass/Vol] 3.7 g/dL 2.2-4.2 [facility] Lipase [Catalytic activity/Vol] 23 U/L 13-75 [facility] Comment on above: Please note:LIPASE r evised reference range effective 23. New Lipase methodology. Expected to produce lower values than the previous assay method. NEW Reference Range: 13 - 75 U/L Urea nitrogen/Creatinine [Mass ratio] 16.7 mg/mg 10-20 [facility] Laboratory - CoagulationOrde red By: Vladislav Crawford on 08-01-2023 aPTT Coag (Bld) [Time] 25.8 s 24.1-36.2 [facility] PT Coag (PPP) [Time] 14.0 s 11.7-14.9 [facility] Laboratory - Hematology and Cell countsOrdered By: Vladislav Crawford on 08-01-2023 Erythrocyte distribution width (RBC) [Entitic vol] 45.0 fL 35.1-43.9 [facility] Erythrocyte distribution width (RBC) [Ratio] 13.8 % 11.6-14.6 [facility] Immature granulocytes/100 WBC (Bld) 0.400 % 0.0-0.9 [facility] Comment on above: IG% - Immature Granu locytes (promyelocytes, myelocytes and metamyelocytes) > 1% indicates that a LEFT SHIFT is Present. MCH (RBC) [Entitic mass] 28.0 pg 27.0-32.0 [facility] Nucleated RBC/100 WBC (Bld) [Ratio] 0 % 0-5 [facility] MCHC Auto (RBC) [Mass/Vol]Or dered By: Vladislav Crawford on 08-01-2023 MCHC (RBC) [Mass/Vol] 31.6 g/dL 32-36 [facility] No Panel InformationOrdered By: Vladislav Crawford on 08-01-2023 Estimated GFR (MDRD) Amer 60 mL/min >60 [facility] Comment on above: GFR Calc Estimated GFR (MDRD) Non-Af Amer 50 mL/min >60 [facility] Comment on above: Non- GFR Calc Platelets bldOrdered By: Eliseo akila Yvette on 08-01-2023 Platelets (Bld) [#/Vol] 261 10*3/uL 150-450 [facility] Serum or plasma albumin carlos urement (mass/volume)Ordered By: Vladislav Crawford on 08-01-2023 Albumin [Mass/Vol] 3.8 g/dL 3.2-5.0 [facility] Serum or plasma albumin/glob ulin mass ratioOrdered By: Vladislav Crawford on 08-01-2023 Albumin/Globulin [Mass ratio] 1.0 {ratio} 0.9-2.4 [facility] Serum or plasma calcium carlos urement (mass/volume)Ordered By: Vladislav Crawford on 08-01-2023 Calcium [Mass/Vol] 9.7 mg/dL 8.5-10.1 [facility] Serum or plasma creatinine m easurement (mass/volume)Ordered By: Vladislav Crawford on 08-01-2023 Creatinine [Mass/Vol] 1.14 mg/dL 0.55-1.02 [facility] Comment on above: The validity of the calculated GFR & GFRAA in patients over 70 years has not been determined. Clinical correlation is essential. Serum or plasma urea nitroge n measurement (mass/volume)Ordered By: Vladislav Crawford on 08-01-2023 Urea nitrogen [Mass/Vol] 19 mg/dL 7-18 [facility] Thin prep Papanicolaou smear with manual screeningOrdered By: Vladislav Crawford on 08-01-2023 Thin prep Papanicolaou smear with manual screening 14 U/L 15-37 [facility] Thin prep Papanicolaou smear with manual screening 6 5-15 [facility] Absolute lymphocyte countOrd ered By: Milton Iglesias on 07-28-2023 Lymphocytes Auto (Unsp spec) [#/Vol] 2.09 10*3/uL 0.83-4.51 [facility] Basophil percentageOrdered B y: Milton Iglesias on 07-28-2023 Basophils/100 WBC (Bld) 0.4 % 0-1 [facility] Chloride [Moles/Vol] 107 mmol/L 98-107 [facility] Eosinophils/100 WBC (Bld) 1.4 % 0-5 [facility] Glucose [Mass/Vol] 108 mg/dL 74-106 [facility] Comment on above: Fasting Glucose resu lt from 100 to 125 mg/dL suggests IMPAIRED HOMEOSTASIS per A.D.A. criteria. Neutrophils (Bld) [#/Vol] 5.0 10*3/uL 2.0-7.7 [facility] Neutrophils/100 WBC (Bld) 62.2 % 47-70 [facility] Potassium [Moles/Vol] 4.0 mmol/L 3.5-5.1 [facility] Sodium [Moles/Vol] 137 mmol/L 136-145 [facility] WBC (Bld) [#/Vol] 8.1 10*3/uL 4.4-11.0 [facility] Blood erythrocytes count (nu mber/volume)Ordered By: Milton Iglesias on 07-28-2023 RBC (Bld) [#/Vol] 3.79 10*6/uL 4.2-5.4 [facility] Blood hemoglobin measurement (mass/volume)Ordered By: Milton Iglesias on 07-28-2023 Hemoglobin (Bld) [Mass/Vol] 10.7 g/dL 12.0-15.0 [facility] Blood lymphocytes/100 leukoc ytesOrdered By: Milton Iglesias on 07-28-2023 Lymphocytes/100 WBC (Bld) 26.0 % 19-41 [facility] Blood monocytes/100 leukocyt esOrdered By: Milton Iglesias on 07-28-2023 Monocytes/100 WBC (Bld) 9.8 % 0-10 [facility] Blood platelet mean volumeOr dered By: Milton Iglesias on 07-28-2023 Platelet mean volume (Bld) [Entitic vol] 11.1 fL 6.2-12.0 [facility] Determination of erythrocyte mean corpuscular volume (MCV)Ordered By: Milton Iglesias on 07-28-2023 MCV (RBC) [Entitic vol] 89.7 fL 81-99 [facility] Hematocrit Auto (Bld) [Volum e fraction]Ordered By: Milton Iglesias on 07-28-2023 Hematocrit (Bld) [Volume fraction] 34.0 % 37-47 [facility] Laboratory - Chemistry and C hemistry - challengeOrdered By: Milton Iglesias on 07-28-2023 CO2 [Moles/Vol] 27.0 mmol/L 21.0-32.0 [facility] Urea nitrogen/Creatinine [Mass ratio] 20.2 mg/mg 10-20 [facility] Laboratory - Hematology and Cell countsOrdered By: Milton Iglesias on 07-28-2023 Erythrocyte distribution width (RBC) [Entitic vol] 45.0 fL 35.1-43.9 [facility] Erythrocyte distribution width (RBC) [Ratio] 13.7 % 11.6-14.6 [facility] Immature granulocytes/100 WBC (Bld) 0.200 % 0.0-0.9 [facility] Comment on above: IG% - Immature Granu locytes (promyelocytes, myelocytes and metamyelocytes) > 1% indicates that a LEFT SHIFT is Present. MCH (RBC) [Entitic mass] 28.2 pg 27.0-32.0 [facility] Nucleated RBC/100 WBC (Bld) [Ratio] 0 % 0-5 [facility] MCHC Auto (RBC) [Mass/Vol]Or dered By: Milton Iglesias on 07-28-2023 MCHC (RBC) [Mass/Vol] 31.5 g/dL 32-36 [facility] No Panel InformationOrdered By: Milton Iglesias on 07-28-2023 Estimated GFR (MDRD) Amer 57 mL/min >60 [facility] Comment on above: GFR Calc Estimated GFR (MDRD) Non-Af Amer 47 mL/min >60 [facility] Comment on above: Non- GFR Calc Platelets bldOrdered By: Nash Iglesias on 07-28-2023 Platelets (Bld) [#/Vol] 234 10*3/uL 150-450 [facility] Serum or plasma calcium carlos urement (mass/volume)Ordered By: Milton Iglesias on 07-28-2023 Calcium [Mass/Vol] 9.4 mg/dL 8.5-10.1 [facility] Serum or plasma creatinine m easurement (mass/volume)Ordered By: Milton Iglesias on 07-28-2023 Creatinine [Mass/Vol] 1.19 mg/dL 0.55-1.02 [facility] Comment on above: The validity of the calculated GFR & GFRAA in patients over 70 years has not been determined. Clinical correlation is essential. Serum or plasma urea nitroge n measurement (mass/volume)Ordered By: Milton Iglesias on 07-28-2023 Urea nitrogen [Mass/Vol] 24 mg/dL -18 [facility] Thin prep Papanicolaou smear with manual screeningOrdered By: Milton Iglesias on 07-28-2023 Thin prep Papanicolaou smear with manual screening 3 - [facility] DXA-AXIAL SKELETONon 022 [facility] CARDIAC PERF STRESS/PHARM on 02-17-2021 [place] CARDIAC [...] 60 minutes later. See administered doses below. [facility] Date of service: 02/17/2021 9:54:54 AM Ordering [...] evidence of scarring. Final Stress ECG Report: [facility] Date of service: 02/17/2021 9:54:54 AM Ordering physician: FANY BETHEA Specialist: Rebecca Long Clinical Resource Director: Tyra Flower Stress ECG interpreting physician: Fany [...] for age. The double product achieved was [address]. Peak heart rate was 88 bpm and [...] index (CRI): 0.26 Rate Pressure Product (RPP): 58272 Reason for test termination: End of Protocol. Symptoms during test: Shortness of breath. ST segment and T wave changes: No ST changes Arrhythmias: No arrhythmias Final Stress Truck Rental Service Attendant Report: [facility] Date of service: 02/17/2021 9:54:54 AM Supervising physician: Gina Marinelli MD PATIENT: Name: MS. PRASHANT SHEFFIELD Age: 70 years Gender: F The supervising physician was present during the stress procedure. Final Associate Attorney: JANICE Transcribe Date/Time: Feb 17 2021 9:54A Dictated by : FANY BETHEA DO This examination was interpreted and the report reviewed and electronically signed by: FANY BETHEA DO on Feb 17 2021 5:19PM EST [id number] CN [facility] PROGRESSon 02-17-2021 PROGRESS HNO ID: [id number] Author: Fany (Connor) CONNOR Villalba Service: Nuclear Medicine Author Type: Clinical Agricultural Economics Teacher Type: Progress Notes Filed: 02/17/2021 10:30 AM [...] POST EXAM PIV STATUS: Discontinued PROCEDURE TYPE: NM Stress: 12.7mCi [id number] was administered IV for Rest Imaging at 09:23 by CONNOR Toussaint. 34.6 mCi [id number] was administered IV for Stress Imaging at 10:22 by CONNOR Toussaint. PATIENT DISCHARGED TO: Ambulatory patient, left [place] department area. A Diagnostic radioactive procedure has taken place, with no further precautions necessary other than routine body substance precautions. More information regarding radiation safety can be found using this link: [email or web address] [email or web address] [email or web address]-%20Diagnostic%20 Nuclear%[email or web address] 0Procedures.pdf SIGNATURE: CONNOR Toussaint PATIENT NAME: Prashant Sheffield DATE: February 17, 2021 TIME: 10:28 AM PAGER/CONTACT #: [facility] 02-16-[address] [facility] Telephone (CDLExistence Before EssenceE) PRASHANT SHEFFIELD ([id number]) 1950 F Date Time Provider Department 02/16/21 DEBRA KATZ (ALICE) CDLBME During your visit today, we recorded the following information about you: Debra Katz RN, RN 02/16/2021 12:52 PM Signed Instructions given for stress test Allergies As of Date: 02/16/2021 Noted Allergy Reaction BETADINE (POVIDONE-IODINE) 07/09/2017 2 - Rash CODEINE 02/07/2016 5 - Intolerance Comments: crazy dreams does not like to take it Date Reviewed: 02/03/2021 Reviewed by: Shira Winters - Fully Assessed Reason for Visit: Reminder Call [[id number]] Prescriptions as of 02/16/2021 Sig: VALSARTAN 160 [...] Encounter Status:Closed by DEBRA KATZ on 02/16/21 [facility] Vital Signs Date Time Vital Sign Value Performing Clinician Facart hortony 07-09-2025 00:40-0400 Body temperature 97.5 [degF] Dr. Ez Solitario MD Work Phone: 6(382)703-366755 [place] [address] 07-09-2025 00:40-0400 Diastolic blood pressure 61 mm[Hg] Dr. Ez Solitario MD Work Phone: 5(517)786-928155 [place] [address] 07-09-2025 00:40-0400 Heart rate 58 /min Dr. Ez Solitario MD Work Phone: 5(800)495-097255 [place] [address] 07-09-2025 00:40-0400 Respiratory rate 18 /min Dr. Ez Solitario MD Work Phone: 6(019)126-330255 [place] [address] 07-09-2025 00:40-0400 SaO2% (BldA) [Mass fraction] 98 % Dr. Ez Solitario MD Work Phone: 3(175)736-048955 [place] [address] 07-09-2025 00:40-0400 Systolic blood pressure 114 mm[Hg] Dr. Ez Solitario MD Work Phone: 7(125)916-977655 [place] [address] 07-08-2025 11:04-0400 Body height [address] Ez Solitario MD Work Phone: 1(486)743-442855 [place] [address] 07-08-2025 11:04-0400 Body weight 62.[address] Ez Solitario MD Work Phone: 8(459)490-330055 [place] [address] 07-07-2025 12:52-0400 Body mass index (BMI) [Ratio] 25.2 kg/m2 Dr. zE Solitario MD Work Phone: 9(839)070-926555 [place] [address] 07-07-2025 12:05-0400 Body temperature 97.8 [degF] Dr. Ez Solitario MD Work Phone: 5(782)885-320140 [place] [address] 07-07-2025 12:05-0400 Diastolic blood pressure 66 mm[Hg] Dr. Ez Solitario MD Work Phone: 6(571)974-263955 [place] [address] 07-07-2025 12:05-0400 Heart rate 83 /min Dr. Ez Solitario MD Work Phone: 9(269)263-394955 [place] [address] 07-07-2025 12:05-0400 Respiratory rate 19 /min Dr. Ez Solitario MD Work Phone: 2(542)819-745555 [place] [address] 07-07-2025 12:05-0400 SaO2% (BldA) [Mass fraction] 99 % Dr. Ez Solitario MD Work Phone: 2(025)811-362755 [place] [address] 07-07-2025 12:05-0400 Systolic blood pressure 162 mm[Hg] Dr. Ez Solitario MD Work Phone: 3(571)455-374655 [place] [address] 07-07-2025 09:30-0400 Body height 157.[address] Ez Solitario MD Work Phone: 9(310)222-732355 [place] [address] 07-07-2025 09:30-0400 Body mass index (BMI) [Ratio] 24.9 kg/m2 Dr. Ez Solitario MD Work Phone: 4(984)462-096440 [place] [address] 07-07-2025 09:30-0400 Body weight 61.[address] Ez Solitario MD Work Phone: 7(586)479-550440 [place] [address] 03-08-2025 14:06-0400 Body mass index (BMI) [Ratio] 26.83 kg/m2 Mary Ortiz TEA TREE FARMER.HYDROELECTRIC PRODUCTION TECHNICIAN Work Phone: [facility] 03-08-2025 14:06-0400 Body weight 64.05 kg Mray Ortiz APRN.HYDROELECTRIC PRODUCTION TECHNICIAN Work Phone: [facility] 03-08-2025 14:06-0400 Diastolic blood pressure 68 mm[Hg] Mary Ortiz TEA TREE FARMER.HYDROELECTRIC PRODUCTION TECHNICIAN Work Phone: [facility] 03-08-2025 14:06-0400 Heart rate 57 /min Mary Podlogar TEA TREE FARMER.HYDROELECTRIC PRODUCTION TECHNICIAN Work Phone: [facility] 03-08-2025 14:06-0400 Respiratory rate 16 /min Mary Podlogar TEA TREE FARMER.HYDROELECTRIC PRODUCTION TECHNICIAN Work Phone: [facility] 03-08-2025 14:06-0400 SaO2% (BldA) [Mass fraction] 98 % Mary Podlogar TEA TREE FARMER.HYDROELECTRIC PRODUCTION TECHNICIAN Work Phone: [facility] 03-08-2025 14:06-0400 Systolic blood pressure 118 mm[Hg] Mary Podlogar TEA TREE FARMER.HYDROELECTRIC PRODUCTION TECHNICIAN Work Phone: [facility] 01-11-2025 12:48-0500 Body height 154.5 cm Lauren Camacho PA-C Work Phone: [facility] 01-11-2025 12:48-0500 Body mass index (BMI) [Ratio] 26.41 kg/m2 Lauren Camacho PA-C Work Phone: [facility] 01-11-2025 12:48-0500 Body temperature 97.9 [degF] Lauren Camacho PA-C Work Phone: [facility] 01-11-2025 12:48-0500 Body weight 63.05 kg Lauren Camacho PA-C Work Phone: [facility] 01-11-2025 12:48-0500 Diastolic blood pressure 70 mm[Hg] Lauren Camacho PA-C Work Phone: [facility] 01-11-2025 12:48-0500 Heart rate 57 /min Lauren Camacho PA-C Work Phone: [facility] 01-11-2025 12:48-0500 Respiratory rate 16 /min Lauren Camacho PA-C Work Phone: [facility] 01-11-2025 12:48-0500 SaO2% (BldA) [Mass fraction] 100 % Lauren Camacho PA-C Work Phone: [facility] 01-11-2025 12:48-0500 Systolic blood pressure 118 mm[Hg] Lauren Camacho PA-C Work Phone: [facility] 08-20-2024 10:52-0400 Body mass index (BMI) [Ratio] 23.96 kg/m2 Radha Bryant TEA TREE FARMER.HYDROELECTRIC PRODUCTION TECHNICIAN Work Phone: [facility] 08-20-2024 10:52-0400 Body weight 59.42 kg Radha Bryant TEA TREE FARMER.HYDROELECTRIC PRODUCTION TECHNICIAN Work Phone: [facility] 08-20-2024 10:52-0400 Diastolic blood pressure 73 mm[Hg] Radha Bryant TEA TREE FARMER.HYDROELECTRIC PRODUCTION TECHNICIAN Work Phone: [facility] 08-20-2024 10:52-0400 Heart rate 62 /min Radha Bryant TEA TREE FARMER.HYDROELECTRIC PRODUCTION TECHNICIAN Work Phone: [facility] 08-20-2024 10:52-0400 Respiratory rate 14 /min Radha Bryant TEA TREE FARMER.HYDROELECTRIC PRODUCTION TECHNICIAN Work Phone: [facility] 08-20-2024 10:52-0400 Systolic blood pressure 131 mm[Hg] Radha Bryant TEA TREE FARMER.HYDROELECTRIC PRODUCTION TECHNICIAN Work Phone: [facility] 07-08-2024 14:21-0400 Diastolic blood pressure 68 mm[Hg] Ez Solitario MD Work Phone: [facility] 07-08-2024 14:21-0400 Systolic blood pressure 132 mm[Hg] Ez Solitario MD Work Phone: [facility] 07-08-2024 13:48-0400 Body mass index (BMI) [Ratio] 23.41 kg/m2 Ez Solitario MD Work Phone: [facility] 07-08-2024 13:48-0400 Body weight 58.06 kg Ez Solitario MD Work Phone: [facility] 07-08-2024 13:48-0400 Heart rate 62 /min Ez Solitario MD Work Phone: [facility] 07-08-2024 13:48-0400 Respiratory rate 16 /min Ez Solitario MD Work Phone: [facility] 12-26-2023 13:54-0500 Body weight 57.15 kg Radha Bryant TEA TREE FARMER.HYDROELECTRIC PRODUCTION TECHNICIAN Work Phone: [facility] 12-26-2023 13:54-0500 Diastolic blood pressure 66 mm[Hg] Radha Bryant TEA TREE FARMER.HYDROELECTRIC PRODUCTION TECHNICIAN Work Phone: [facility] 12-26-2023 13:54-0500 Heart rate 68 /min Radha Bryant TEA TREE FARMER.HYDROELECTRIC PRODUCTION TECHNICIAN Work Phone: [facility] 12-26-2023 13:54-0500 Respiratory rate 14 /min Radha Bryant TEA TREE FARMER.HYDROELECTRIC PRODUCTION TECHNICIAN Work Phone: [facility] 12-26-2023 13:54-0500 Systolic blood pressure 142 mm[Hg] Radha Bryant TEA TREE FARMER.HYDROELECTRIC PRODUCTION TECHNICIAN Work Phone: [facility] 10-07-2023 15:30-0500 Body height 157.5 cm Daren Prince MD Work Phone: [facility] 10-07-2023 15:30-0500 Body temperature 98.1 [degF] Daren Prince MD Work Phone: [facility] 10-07-2023 15:30-0500 Body weight 55.79 kg Daren Prince MD Work Phone: [facility] 10-07-2023 15:30-0500 Diastolic blood pressure 80 mm[Hg] Daren Prince MD Work Phone: [facility] 10-07-2023 15:30-0500 Heart rate 77 /min Daren Prince MD Work Phone: [facility] 10-07-2023 15:30-0500 SaO2% (BldA) [Mass fraction] 97 % Daren Prince MD Work Phone: [facility] 10-07-2023 15:30-0500 Systolic blood pressure 146 mm[Hg] Daren Prince MD Work Phone: [facility] 09-25-2023 11:37-0500 Body weight 56.25 kg Ez Solitario MD Work Phone: [facility] 09-25-2023 11:37-0500 Diastolic blood pressure 70 mm[Hg] Ez Solitario MD Work Phone: [facility] 09-25-2023 11:37-0500 Heart rate 70 /min Ez Solitario MD Work Phone: [facility] 09-25-2023 11:37-0500 Respiratory rate 16 /min Ez Solitario MD Work Phone: [facility] 09-25-2023 11:37-0500 Systolic blood pressure 120 mm[Hg] Ez Solitario MD Work Phone: [facility] 09-13-2023 15:36-0400 Diastolic blood pressure 84 mm[Hg] Alonso Quinones MD Work Phone: [facility] 09-13-2023 15:36-0400 Systolic blood pressure 130 mm[Hg] Alonso Quinones MD Work Phone: [facility] 09-13-2023 14:33-0400 Heart rate 68 /min Alonso Quinones MD Work Phone: [facility] 09-13-2023 14:33-0400 Respiratory rate 16 /min Alonso Quinones MD Work Phone: [facility] 09-13-2023 14:33-0400 SaO2% (BldA) [Mass fraction] 99 % Alonso Quinones MD Work Phone: [facility] 08-06-2023 11:21-0400 Body temperature 98.5 [degF] Dr. Ez Solitario Work Phone: [facility] 08-06-2023 11:21-0400 Diastolic blood pressure 74 mm[Hg] Dr. Ez Solitario Work Phone: [facility] 08-06-2023 11:21-0400 Heart rate 69 /min Dr. Ez Solitario Work Phone: 8(177)980-727440 [place] [address] 08-06-2023 11:21-0400 Respiratory rate 16 /min Dr. Ez Solitario Work Phone: 2(877)492-452455 [place] [address] 08-06-2023 11:21-0400 SaO2% (BldA) [Mass fraction] 96 % Dr. Ez Solitario Work Phone: 9(019)406-321355 [place] [address] 08-06-2023 11:21-0400 Systolic blood pressure 127 mm[Hg] Dr. Ez Solitario Work Phone: 0(492)827-665955 [place] [address] 08-05-2023 13:55-0400 Body height 157.[address] Ez Solitario Work Phone: 0(659)827-225255 [place] [address] 08-05-2023 13:55-0400 Body weight 62.[address] Ez Solitario Work Phone: 0(902)955-038455 [place] [address] 08-02-2023 12:19-0400 Inhaled oxygen flow rate 96 L/min Dr. Ez Solitario Work Phone: 2(790)669-960355 [place] [address] 08-01-2023 23:02-0400 Body mass index (BMI) [Ratio] 25 kg/m2 Dr. Ez Solitario Work Phone: 9(394)232-103255 [place] [address] 08-01-2023 19:20-0400 Body temperature 97.8 [degF] Dr. Ez Solitario Work Phone: 5(203)620-148155 [place] [address] 08-01-2023 19:20-0400 Diastolic blood pressure 78 mm[Hg] Dr. Ez Solitario Work Phone: 0(806)158-182355 [place] [address] 08-01-2023 19:20-0400 Heart rate 72 /min Dr. Ez Solitario Work Phone: 7(575)672-976055 [place] [address] 08-01-2023 19:20-0400 Respiratory rate 14 /min Dr. Ez Solitario Work Phone: 2(826)417-303455 [place] [address] 08-01-2023 19:20-0400 SaO2% (BldA) [Mass fraction] 97 % Dr. Ez Solitario Work Phone: [facility] 08-01-2023 19:20-0400 Systolic blood pressure 148 mm[Hg] Dr. Ez Solitario Work Phone: [facility] 08-01-2023 19:13-0400 Body height 157.[address] Ez Solitario Work Phone: [facility] 08-01-2023 19:13-0400 Body mass index (BMI) [Ratio] 24.8 kg/m2 Dr. Ez Solitario Work Phone: [facility] 08-01-2023 19:13-0400 Body weight 61.[address] Ez Solitario Work Phone: [facility] 07-28-2023 12:38-0400 Body mass index (BMI) [Ratio] 23.1 kg/m2 [facility] 07-28-2023 12:38-0400 Body weight 63.23 kg [facility] 07-28-2023 12:38-0400 Diastolic blood pressure 77 mm[Hg] [facility] 07-28-2023 12:38-0400 Heart rate 62 /min [facility] 07-28-2023 12:38-0400 Respiratory rate 15 /min [facility] 07-28-2023 12:38-0400 SaO2% (BldA) [Mass fraction] 98 % [facility] 07-28-2023 12:38-0400 Systolic blood pressure 124 mm[Hg] [facility] 07-28-2023 09:30-0400 Body height 165.1 cm [facility] 07-28-2023 09:30-0400 Body temperature 97.3 [degF] [facility] 05-24-2023 13:22-0400 Body temperature 97.81 [degF] Lauren Camacho PA-C Work Phone: [facility] 05-24-2023 13:22-0400 Body weight 63.5 kg Lauren Camacho PA-C Work Phone: [facility] 05-24-2023 13:22-0400 Diastolic blood pressure 70 mm[Hg] Lauren Camacho PA-C Work Phone: [facility] 05-24-2023 13:22-0400 Heart rate 56 /min Lauren Camacho PA-C Work Phone: [facility] 05-24-2023 13:22-0400 Respiratory rate 16 /min Lauren Camacho PA-C Work Phone: [facility] 05-24-2023 13:22-0400 Systolic blood pressure 110 mm[Hg] Lauren Camacho PA-C Work Phone: [facility] 05-02-2023 13:54-0400 Body weight 63.5 kg Radha Bryant TEA TREE FARMER.HYDROELECTRIC PRODUCTION TECHNICIAN Work Phone: [facility] 05-02-2023 13:54-0400 Diastolic blood pressure 68 mm[Hg] Radha Bryant TEA TREE FARMER.HYDROELECTRIC PRODUCTION TECHNICIAN Work Phone: [facility] 05-02-2023 13:54-0400 Heart rate 63 /min Radha Bryant TEA TREE FARMER.HYDROELECTRIC PRODUCTION TECHNICIAN Work Phone: [facility] 05-02-2023 13:54-0400 Respiratory rate 16 /min Radha Bryant APRN.HYDROELECTRIC PRODUCTION TECHNICIAN Work Phone: [facility] 05-02-2023 13:54-0400 SaO2% (BldA) [Mass fraction] 97 % Radha Bryant TEA TREE FARMER.HYDROELECTRIC PRODUCTION TECHNICIAN Work Phone: [facility] 05-02-2023 13:54-0400 Systolic blood pressure 110 mm[Hg] Radha Bryant APRN.HYDROELECTRIC PRODUCTION TECHNICIAN Work Phone: [facility] 02-12-2023 09:25-0400 Diastolic blood pressure 74 mm[Hg] Ez Solitario MD Work Phone: [facility] 02-12-2023 09:25-0400 Systolic blood pressure 128 mm[Hg] Ez Solitario MD Work Phone: [facility] 02-12-2023 08:56-0400 Body weight 64.86 kg Ez Solitario MD Work Phone: [facility] 02-12-2023 08:56-0400 Heart rate 76 /min Ez Solitario MD Work Phone: [facility] 02-12-2023 08:56-0400 Respiratory rate 16 /min Ez Solitario MD Work Phone: [facility] 02-07-2022 08:18-0400 Body weight 64.86 kg Ez Solitario MD Work Phone: [facility] 02-07-2022 08:18-0400 Diastolic blood pressure 74 mm[Hg] Ez Solitario MD Work Phone: [facility] 02-07-2022 08:18-0400 Heart rate 70 /min Ez Solitario MD Work Phone: [facility] 02-07-2022 08:18-0400 Respiratory rate 12 /min Ez Solitario MD Work Phone: [facility] 02-07-2022 08:18-0400 Systolic blood pressure 118 mm[Hg] Ez Solitario MD Work Phone: [facility] Encounters Encounter Date Encounter Type Care Provider Facility Start: 09-14-2025 ambulatory Matilda Kvnga OLS Facili ty:[facility] Start: 08-23-2025 End: 08-23-2025 ambulatory LAUREN CAMACHO Facility:[facility] Start: 08-03-2025 End: 08-03-2025 ambulatory Matilda Gulupea OLS Facility:[facility] Start: 07-27-2025 End: 07-27-2025 ambulatory Matilda Gudla OLS Facility:[facility] Start: 07-22-2025 ambulatory Matilda Gudla OLS Facili ty:[facility] Start: 07-08-2025 Non-patient / Non-visit Dr. Davin johnson MD -[facility] Work Phone: Start: 07-07-2025 End: 07-07-2025 Chart abstracting Ez Solitario MD Work Phone: [facility] [place] Comment on above: Abstract ([facility] admiss ion) Start: 07-07-2025 Non-patient / Non-visit Dr. Davin johnson MD -[facility] Work Phone: Start: 07-07-2025 End: 07-09-2025 ambulatory Ez Solitario Facility:[facility] Start: 07-07-2025 End: 07-09-2025 Evaluation and management of inpatient Dr. Davin Kirkland MD -[facility] Work Phone: Start: 07-07-2025 End: 07-09-[address] Ez Solitario MD Work Phone: -[facility] Start: 07-01-2025 End: 07-01-2025 Chart abstracting Ez Solitario MD Work Phone: [facility] [place] Comment on above: Abstract (Neurology OV) Start: 05-05-2025 End: 05-05-2025 Chart abstracting Patti Tomas MA [facility] [place] Comment on above: Consult (Neurology / ) Start: 03-17-2025 End: 03-17-2025 Chart abstracting Patti Tomas MA [facility] [place] Comment on above: Physical Therapy (Ou tside PT consult ) Start: 03-08-2025 End: 03-08-2025 Patient encounter procedure Mary Ortiz APRN.HYDROELECTRIC PRODUCTION TECHNICIAN Work Phone: [facility] [place] Comment on above: Traumatic ecchymosis of right lower leg, initial encounter (Primary Dx) Start: 03-08-2025 End: 03-08-2025 ambulatory MARY ORTIZ Facility:[facility] Start: 02-26-2025 End: 02-26-2025 Follow-up encounter Radha Bryant APRN.HYDROELECTRIC PRODUCTION TECHNICIAN Work Phone: [facility] [place] Comment on above: Results Start: 02-23-2025 End: 02-23-2025 Follow-up encounter Radha Bryant APRN.HYDROELECTRIC PRODUCTION TECHNICIAN Work Phone: [facility] [place] Comment on above: Results Start: 02-22-2025 End: 02-22-2025 ambulatory EZ SOLITARIO Facility:[facility] Start: 02-22-2025 End: 02-22-2025 Subsequent hospital visit by physician [facility] D[facility] Work Phone: Radiology Comment on above: Asymptomatic menopau se [Z78.0] Encounter for screen ing mammogram for breast cancer [Z12.31] Start: 02-04-2025 End: 02-04-2025 Chart abstracting Ez Solitario MD Work Phone: Family [facility] [place] Comment on above: Outside Neurology Start: 01-13-2025 End: 01-13-2025 Follow-up encounter Lauren Camacho PA-C Work Phone: [facility] [place] Start: 01-11-2025 End: 01-11-2025 ambulatory LAUREN CAMACHO Facility:[facility] Start: 01-11-2025 End: 01-11-2025 ambulatory LAUREN CAMACHO Facility:[facility] Start: 01-11-2025 End: 01-11-2025 Patient encounter procedure Lauren Camacho PA-C Work Phone: [facility] [place] Comment on above: [facility], subsequent (Primary Dx); Advance directive [...] Asymptomatic menopause Start: 01-06-2025 End: 01-06-2025 ambulatory Ez Solitario Facility:[facility] Start: 01-05-2025 End: 01-05-2025 ambulatory EZ SOLITARIO Facility:[facility] Start: 12-10-2024 End: 12-11-2024 Refill Ez Solitario MD Work Phone: [facility] Comment on above: Refill Request Start: 11-24-2024 End: 11-24-2024 Chart abstracting Ez Solitario MD Work Phone: [facility] Comment on above: Outside PT/OT/Speech Start: 10-27-2024 End: 10-27-2024 Chart abstracting Ez Solitario MD Work Phone: [facility] Comment on above: Outside Neurology Start: 09-30-2024 End: 10-05-2024 ambulatory Ez Solitario MD Work Phone: [facility] Start: 09-15-2024 End: 09-15-2024 Refill Ez Solitario MD Work Phone: [facility] Comment on above: Refill Request Start: 09-14-2024 End: 09-14-2024 ambulatory Meño Phillip PT Work Phone: [facility] Comment on above: Acute midline low ba ck pain without sciatica (Primary Dx) Start: 08-25-2024 End: 08-25-2024 Telephone encounter Radha Bryant APRN.HYDROELECTRIC PRODUCTION TECHNICIAN Work Phone: [facility] Comment on above: Results Start: 08-24-2024 End: 08-24-2024 Telephone encounter Ez Solitario MD Work Phone: [facility] Comment on above: Results Start: 08-20-2024 End: 08-20-2024 Subsequent hospital visit by physician Valentin [facility] [place] Work Phone: Radiology Comment on above: Left leg pain [M79.6 05] Start: 08-20-2024 End: 08-20-2024 Patient encounter procedure Radha Bryant APRN.HYDROELECTRIC PRODUCTION TECHNICIAN Work Phone: [facility] Comment on above: Left leg pain (Prima ry Dx); Encounter for immunization Start: 08-10-2024 End: 08-10-2024 Refill Ez Solitario MD Work Phone: [facility] Comment on above: Refill Request Start: 08-07-2024 End: 08-07-2024 Telephone encounter Ez Solitario MD Work Phone: Family [facility] [place] Comment on above: Jury duty letter Start: 07-28-2024 End: 07-28-2024 Chart abstracting Ez Solitario MD Work Phone: Family [facility] [place] Comment on above: Outside Neurology Start: 07-08-2024 End: 07-08-2024 Patient encounter procedure Ez Solitario MD Work Phone: [facility] [place] Comment on above: Elevated hemoglobin A1c [...] 06-15-2024 Refill Ez molina MD Work Phone: Family [facility] [place] Comment on above: Refill Request Start: 04-28-2024 Chart abstracting Ez aviles MD Work Phone: Family [facility] [place] Comment on above: Outside Neuro Start: 02-17-2024 End: 02-17-2024 Patient encounter procedure ELIO SERRATO MD [facility] Start: 02-17-2024 End: 02-18-2024 Refill Ez Solitario MD Work Phone: Family [facility] [place] Comment on above: Refill Request Start: 01-27-2024 Telephone encounter Radha herrmann APRN.HYDROELECTRIC PRODUCTION TECHNICIAN Work Phone: Family [facility] [place] Comment on above: Results Start: 12-26-2023 End: 12-26-2023 Patient encounter procedure Radha Bryant APRN.HYDROELECTRIC PRODUCTION TECHNICIAN Work Phone: Family [facility] [place] Comment on above: Medicare annual [...] Ez molina MD Work Phone: Internal Medicine [facility] Start: 10-07-2023 End: 10-07-2023 Patient encounter procedure Daren Prince MD Work Phone: General Surgery Comment on above: GERD without esophag itis (Primary Dx); Iron deficiency anemia, unspecified iron deficiency anemia type Start: 10-07-2023 End: 09-22-2024 Telephone encounter Daren Prince MD Work Phone: General Surgery Comment on above: 11/28/2023 COLON/EGD [facility] Start: 10-04-2023 Telephone encounter Ez Solitario MD Work Phone: Family [facility] [place] Comment on above: Results Start: 10-01-2023 Home visit Ez molina MD Work Phone: [facility] [place] Comment on above: Parkinson's disease, unspecified whether dyskinesia present, unspecified whether manifestations fluctuate (Primary Dx) Start: 09-25-2023 End: 09-25-2023 Patient encounter procedure Ez Solitario MD Work Phone: [facility] [place] Comment on above: Cecal volvulus (HCC) (Primary Dx); Vaginal discharge; Encounter for immunization; Anemia, unspecified type; Stage 3a chronic kidney disease (HCC); Other general symptoms and signs; Anxiety and depression Start: 09-20-2023 Telephone encounter Ez Solitario MD Work Phone: [facility] [place] Comment on above: Addend then Fax last OV notes Start: 09-16-2023 Telephone encounter Ez Solitario MD Work Phone: [facility] [place] Comment on above: Patient Update Start: 09-13-2023 End: 09-13-2023 Patient encounter procedure Alonso Quinones MD Work Phone: [facility] [place] Comment on above: Anxiety with depress ion (Primary Dx); Colonic volvulus (HCC); S/P right hemicolectomy; Essential hypertension; Parkinson's disease with dyskinesia, unspecified whether manifestations fluctuate; Mobility impaired Start: 09-10-2023 Telephone encounter Ez Solitario MD Work Phone: [facility] [place] Comment on above: Home Health Orders Start: 09-05-2023 Chart abstracting Ez aviles MD Work Phone: [facility] [place] Comment on above: Consult (General Sandra tracy /) Start: 08-06-2023 Non-patient / Non-visit Dr. Dimitri Solitario Work Phone: [facility] Start: 08-05-2023 Non-patient / Non-visit Dr. Dimitri Solitario Work Phone: [facility] Start: 08-04-2023 Non-patient / Non-visit Dr. Dimitri Solitario Work Phone: [facility] Start: 08-03-2023 Non-patient / Non-visit Dr. Dimitri Solitario Work Phone: [facility] Start: 08-02-2023 Chart abstracting Ez aviles MD Work Phone: [facility] [place] Comment on above: Outside [id number] Ordered (Imaging/) Start: 08-02-2023 Non-patient / Non-visit Dr. Dimitri Solitario Work Phone: [facility] Start: 08-01-2023 End: 08-06-2023 Evaluation and management of inpatient Dr. Ez Solitario Work Phone: [facility]-Medical Surgical 3 Work Phone: Start: 08-01-2023 Admission [facility] Dr. Ez Solitario Work Phone: [facility]-[employer] Machine Operator Work Phone: Start: 08-01-[address] Ez aviles Work Phone: [facility] Work Phone: Start: 08-01-2023 Non-patient / Non-visit Dr. Dimitri Solitario Work Phone: [facility] Start: 08-01-2023 Telephone encounter Ez Solitario MD Work Phone: [facility] Comment on above: Results Start: 07-28-2023 End: 07-28-2023 Emergency department patient visit [facility]-Emergency Department Work Phone: Start: 07-24-2023 End: 07-24-2023 ambulatory Mary You OT/[facility] [place] Comment on above: Parkinson's disease (HCC) (Primary Dx); Mobility impaired; Falls frequently; Driving safety issue Start: 07-16-2023 Refill Ez molina MD Work Phone: [facility] Comment on above: Refill Request Start: 07-15-2023 Refill Ez molina MD Work Phone: [facility] Comment on above: Refill Request Start: 06-14-2023 Telephone encounter Lauren daley PA-C Work Phone: [facility] Comment on above: Results Start: 05-31-2023 Telephone encounter Lauren daley PA-C Work Phone: [facility] Comment on above: Results Start: 05-27-2023 Telephone encounter Lauren BOSE-C Work Phone: [facility] [place] Comment on above: Results Start: 05-24-2023 End: 05-24-2023 Patient encounter procedure Lauren Camacho PA-C Work Phone: [facility] [place] Comment on above: Peripheral edema (Pr imary Dx); Leg swelling Start: 05-15-2023 Chart abstracting Ez aviles MD Work Phone: [facility] [place] Comment on above: Outside Neurology Start: 05-09-2023 Telephone encounter Radha herrmann TEA TREE FARMER.HYDROELECTRIC PRODUCTION TECHNICIAN Work Phone: [facility] [place] Comment on above: Results Start: 05-07-2023 Telephone encounter Lauren daley PA-C Work Phone: [facility] [place] Comment on above: Results Start: 05-02-2023 End: 05-02-2023 Patient encounter procedure Radha Bryant TEA TREE FARMER.HYDROELECTRIC PRODUCTION TECHNICIAN Work Phone: [facility] [place] Comment on above: Essential hypertensi on (Primary Dx); Lower extremity edema; Hypertensive heart and chronic kidney disease with heart failure and stage 1 through stage 4 chronic kidney disease, or unspecified chronic kidney disease (HCC) Start: 02-21-2023 Chart abstracting Ez aviles MD Work Phone: [facility] [place] Comment on above: Consult Start: 02-12-2023 Telephone encounter Ez Solitario MD Work Phone: [facility] [place] Comment on above: Results Start: 02-12-2023 End: 02-12-2023 Patient encounter procedure Ez Solitario MD Work Phone: [facility] [place] Comment on above: Essential hypertensi on (Primary Dx); Mixed hyperlipidemia; Elevated fasting blood sugar; Stage 3a chronic kidney disease (HCC); Parkinson's disease (HCC); Memory loss; Anxiety and depression; GERD without esophagitis; Low serum vitamin B12; Frequent falls; Advance directive discussed with patient; Encounter for immunization; Medication management Start: 02-11-2023 Telephone encounter Ez Solitario MD Work Phone: [facility] [place] Comment on above: Lab Orders Start: 01-29-2023 End: 01-29-2023 ambulatory [facility] Work Phone: Start: 01-29-2023 End: 01-29-2023 Discharged Recurring [facility] Start: 01-28-2023 Refill Ez molina MD Work Phone: [facility] Comment on above: Refill Request Start: 01-07-2023 Refill Ez molina MD Work Phone: [facility] Comment on above: Refill Request Start: 08-27-2022 Telephone encounter Lauren daley PA-C Work Phone: [facility] Comment on above: Results Refill Request Start: 08-15-2022 Telephone encounter Ez Solitario MD Work Phone: [facility] Comment on above: Living Will update Start: 08-13-2022 Patient encounter procedure Ez Solitario MD Work Phone: [facility] Work Phone: Start: 05-12-2022 Refill Amita Jones [facility]ly [facility] Comment on above: Refill Request Start: 02-27-2022 Refill Ez molina MD Work Phone: [facility] Comment on above: Refill Request Start: 02-20-2022 Telephone encounter Daren wang MD Work Phone: General Surgery Comment on above: colonoscopy recall Start: 02-12-2022 End: 02-12-2022 Subsequent hospital visit by physician Bone Density [facility] Work Phone: Radiology Comment on above: Osteopenia, senile [ M85.80] Start: 02-07-2022 End: 02-07-2022 Patient encounter procedure Ez Solitario MD Work Phone: [facility] Comment on above: Essential hypertensi on (Primary Dx); Mixed hyperlipidemia; Elevated fasting blood sugar; GERD without esophagitis; Stage 3a chronic kidney disease (HCC); Anxiety and depression; Parkinson's disease (HCC); Memory loss; Osteopenia, senile; Low serum vitamin B12; Colon cancer screening; Primary ovarian failure; Medication management Start: 02-05-2022 Telephone encounter Ez Solitario MD Work Phone: [facility] Comment on above: Patient Question Start: 01-16-2021 Patient encounter procedure Ez Solitario MD Work Phone: [facility] Work Phone: Start: 06-06-2018 Patient encounter status Ruth Solitario MD Work Phone: [facility] Work Phone: Procedures Date Procedure Procedure [...] Lauren Camacho PA-C Work Phone: Start: 08-20-2024 [employer] COVI D-19 VACCINE AGE 12+ YR (COMIRNATY) Radha Bryant TEA TREE FARMER.HYDROELECTRIC PRODUCTION TECHNICIAN Work Phone: Start: 07-03-2024 Lipid 1996 panel - S camila or Plasma Ez Solitario MD Work Phone: Start: 12-11-2023 Lipid 1995 panel - S camila or Plasma Radha Bryant APRN.HYDROELECTRIC PRODUCTION TECHNICIAN Work Phone: Start: 09-25-2023 INFLUENZA VACCINE, P RSV FREE, AGE 65+ YR, HIGH DOSE, QUADRIVALENT (FLUZONE HIGH-DOSE) Ez Solitario MD Work Phone: Start: 09-25-2023 [employer] COVI D-19 VACCINE ( SEASON) AGE 12+ YR zE Solitario MD Work Phone: Start: 08-03-2023 Plain [...] of head without contrast Start: 07-25-2023 Lipid 1995 panel - S camila or Plasma Ez Soltiario MD Work Phone: Start: 05-02-2023 Ecg routine [...] P,Tdap,Td Vaccine (2 - Td or Tdap) [facility] Start: 01-05-2030 Lipid panel Lipid Screening [facility] Start: 07-03-2029 Lipid panel Lipid Screening [facility] Start: 12-11-2028 Lipid panel Lipid Screening [facility] Start: 07-25-2028 Lipid 1996 panel - S camila or Plasma Lipid Screening [facility] Start: 01-05-2028 [facility] Start: 08-08-2027 LIPID SCREEN LIPID SCREEN [facility] Start: 07-03-2027 Diabetes Screening Diabetes Screenin g [facility] Start: 02-05-2027 LIPID SCREEN LIPID SCREEN [facility] Start: 01-01-2027 LIPID SCREEN LIPID SCREEN [facility] Start: 12-11-2026 Diabetes Screening Diabetes Screenva g [facility] Start: 09-25-2026 Diabetes Screening Diabetes Screenva g [facility] Start: 07-25-2026 DIABETES SCREEN DIABETES SCREEN [facility] Start: 07-25-2026 [facility] Start: 05-30-2026 DIABETES SCREEN DIABETES SCREEN [facility] Start: 05-24-2026 DIABETES SCREEN DIABETES SCREEN [facility] Start: 05-02-2026 DIABETES SCREEN DIABETES SCREEN [facility] Start: 03-08-2026 Annual PCP Team Front Line Leader vilma Disease Visit Annual PCP Team Chronic Disease Visit [facility] Start: 03-08-2026 BP Controlled (<130/80) BP Controlle d (<130/80) [facility] Start: 02-22-2026 Screening for malign ant neoplasm of breast Mammogram Screening [facility] Start: 02-19-2026 Colonoscopy COLONOSCOPY [facility] Start: 02-19-2026 COLORECTAL CANCER SCREENING COLORECTAL CANCER SCREENING [facility] Start: 02-19-2026 Screening for malign ant neoplasm of colon [facility] Start: 02-12-2026 DIABETES SCREEN DIABETES SCREEN [facility] Start: 01-11-2026 Annual PCP Team Front Line Leader vilma Disease Visit Annual PCP Team Chronic Disease Visit [facility] Start: 01-11-2026 BP Controlled (<130/80) BP Controlle d (<130/80) [facility] Start: 01-11-2026 Medicare Annual Well ness Visit Medicare Annual Wellness Visit [facility] Start: 01-05-2026 Complete blood count Hemoglobin/Mando tocrit [facility] Start: 01-05-2026 Creatinine measurement Serum Creatin ine [facility] Start: 08-24-2025 DIABETES SCREEN DIABETES SCREEN [facility] Start: 08-20-2025 Annual PCP Team Front Line Leader vilma Disease Visit Annual PCP Team Chronic Disease Visit [facility] Start: 08-08-2025 DIABETES SCREEN DIABETES SCREEN [facility] Start: 07-19-2025 Influenza vaccination Influenza Vacc ine (#1) [facility] Start: 07-12-2025 End: 07-12-2025 Patient encounter procedure [facility] Comment on above: 6 month f/u Start: 07-09-2025 [facility] Start: 07-08-2025 Annual PCP Team Front Line Leader vilma Disease Visit Annual PCP Team Chronic Disease Visit [facility] Start: 07-08-2025 BP Controlled (<130/80) BP Controlle d (<130/80) [facility] Start: 07-08-2025 Covid-19 Vaccine ( season) Covid-19 Vaccine ( season) [facility] Comment on above: Postponed from 01/23 (Declined at this time) Start: 07-08-2025 RSV Vaccine (1 - 1-d ose 60+ series) RSV Vaccine (1 - 1-dose 60+ series) [facility] Comment on above: Postponed from 03/05 (Insurance Coverage) Start: 07-08-2025 RSV Vaccine (1 - Ris k 60-74 years 1-dose series) RSV Vaccine (1 - Risk 60-74 years 1-dose series) [facility] Comment on above: Postponed from 03/05 (Insurance Coverage) Start: 07-08-2025 Measurement of occul t blood in stool specimen using immunoassay [facility] Start: 07-08-2025 Consultation [facility] Start: 07-08-2025 Serum inorganic phos phate measurement [facility] Start: 07-08-2025 Thyroid stimulating hormone measurement [facility] Start: 07-07-2025 Following clinical p athway protocol [facility] Start: 07-07-2025 Assessment of risk o f venous thromboembolism [facility] Start: 07-07-2025 Catheterization of vein [facility] Start: 07-07-2025 Incentive spirometry [facility] Start: 07-07-2025 Insertion of cathete r into peripheral vein [facility] Start: 07-07-2025 Oxygen therapy [facility] Start: 07-07-2025 Providing care accor ding to standard [facility] Start: 07-07-2025 Provision of activit y privileges [facility] Start: 07-07-2025 Referral to occupati onal therapist [facility] Start: 07-07-2025 Referral to service [facility] Start: 07-07-2025 [facility] Start: 07-07-2025 Verification routine [facility] Start: 07-07-2025 Admission procedure [facility] Start: 07-07-2025 Hospital admission, emergency, from emergency room, medical nature [facility] Start: 07-07-2025 Patient referral to dietitian [facility] Start: 07-03-2025 Complete blood count Hemoglobin/Mando tocnmt [facility] Start: 07-03-2025 Creatinine measurement Serum Creatin ine [facility] Start: 02-22-2025 End: 02-22-2025 Patient encounter procedure Radiology Comment on above: Dx: Asymptomatic men opause [Z78.0] Dx: Encounter for sc reening mammogram for breast cancer [Z12.31] Start: 02-18-2025 Covid-19 Vaccine ( season) Covid-19 Vaccine () [facility] Start: 02-05-2025 DIABETES SCREEN DIABETES SCREEN [facility] Start: 01-23-2025 Complete blood count Hemoglobin/Mando tocrit [facility] Start: 01-11-2025 End: 04-12-2025 Bacteria identified in Urine by Culture [facility] Work Phone: Comment on above: Expected: 01/11/2025 , Expires: 04/12/2025 Start: 01-11-2025 End: 01-11-2025 Patient encounter procedure 01/11/2025 12:40 PM EST Office Visit [facility] [address] [place] [address] Luaren Camacho PA-C [address] [place] [address] Medicare wellness [facility] Comment on above: Medicare wellness Start: 01-01-2025 DIABETES SCREEN DIABETES SCREEN [facility] Start: 12-26-2024 Annual PCP Team Front Line Leader vilma Disease Visit Annual PCP Team Chronic Disease Visit [facility] Start: 12-25-2024 End: 03-26-2025 CBC W Auto Differential panel - Blood COMPLETE BLOOD COUNT AND DIFFERENTIAL Lab Routine Stage 3a chronic kidney disease (HCC) Anemia, unspecified type Low serum vitamin B12 Expected: 12/25/2024, Expires: 03/26/2025 [facility] Comment on above: Expected: 12/25/2024 , Expires: 03/26/2025 Start: 12-25-2024 End: 03-26-2025 Cobalamin (Vitamin B12) [Mass/volume] in Serum or Plasma VITAMIN B12 Lab Routine GERD without esophagitis Low serum vitamin B12 Medication management Expected: 12/25/2024, Expires: 03/26/2025 [facility] Work Phone: Comment on above: Expected: 12/25/2024 , Expires: 03/26/2025 Start: 12-25-2024 End: 03-26-2025 Comprehensive metabolic 2000 panel - Serum or Plasma COMPREHENSIVE METABOLIC PANEL Lab Routine Mixed hyperlipidemia Essential hypertension Stage 3a chronic kidney disease (HCC) Expected: 12/25/2024, Expires: 03/26/2025 [facility] Comment on above: Expected: 12/25/2024 , Expires: 03/26/2025 Start: 12-25-2024 End: 03-26-2025 Hemoglobin A1c in Blood HEMOGLOBIN A1C Lab Routine Elevated hemoglobin A1c Expected: 12/25/2024, Expires: 03/26/2025 [facility] Comment on above: Expected: 12/25/2024 , Expires: 03/26/2025 Start: 12-25-2024 End: 03-26-2025 Iron and Iron binding capacity panel - Serum or Plasma IRON AND TIBC Lab Routine Iron deficiency anemia, unspecified iron deficiency anemia type Expected: 12/25/2024, Expires: 03/26/2025 [facility] Comment on above: Expected: 12/25/2024 , Expires: 03/26/2025 Start: 12-25-2024 End: 03-26-2025 LIPID PANEL, NONFASTING LIPID PANEL, NONFASTING Lab Routine Mixed hyperlipidemia Essential hypertension Expected: 12/25/2024, Expires: 03/26/2025 [facility] Comment on above: Expected: 12/25/2024 , Expires: 03/26/2025 Start: 12-25-2024 End: 03-26-2025 Magnesium [Mass/volume] in Serum or Plasma MAGNESIUM Lab Routine GERD without esophagitis Medication management Expected: 12/25/2024, Expires: 03/26/2025 [facility] Comment on above: Expected: 12/25/2024 , Expires: 03/26/2025 Start: 12-25-2024 End: 03-26-2025 Urinalysis complete panel - Urine URINALYSIS, WITH MICROSCOPIC Lab Routine Mixed hyperlipidemia Essential hypertension Expected: 12/25/2024, Expires: 03/26/2025 [facility] Comment on above: Expected: 12/25/2024 , Expires: 03/26/2025 Start: 12-11-2024 Complete blood count Hemoglobin/Mando tocrit [facility] Start: 12-11-2024 Creatinine measurement Serum Creatin ine [facility] Start: 11-18-2024 Advance Directive Discussion Advance Directive Discussion [facility] Start: 09-25-2024 Annual PCP Team Front Line Leader vilma Disease Visit Annual PCP Team Chronic Disease Visit [facility] Start: 09-25-2024 BP Controlled (<130/80) BP Controlle d (<130/80) [facility] Start: 09-25-2024 Hemoglobin/Hematocrit Hemoglobin/Hem atocrit [facility] Start: 09-25-2024 Serum Creatinine Serum Creatinine [facility] Start: 09-13-2024 Annual PCP Team Front Line Leader vilma Disease Visit Annual PCP Team Chronic Disease Visit [facility] Start: 08-20-2024 End: 08-20-2024 Patient encounter procedure 08/20/2024 11:20 AM EDT Office Visit [facility] [place] [address] [place] [address] Radha Bryant APRN.HYDROELECTRIC PRODUCTION TECHNICIAN [address] [place], [place] [id number] 6 week follow up muscle spasm [facility] Comment on above: 6 week follow up mus irma spasm Start: 07-25-2024 HEMOGLOBIN/HEMATOCRIT HEMOGLOBIN/HEM ATOCRIT [facility] Start: 07-25-2024 Serum Creatinine Serum Creatinine Cl [facility] Start: 07-19-2024 Covid-19 Vaccine () Covid-19 Vaccine () [facility] Start: 07-19-2024 Covid-19 Vaccine () Covid-19 Vaccine () [facility] Start: 07-19-2024 Influenza vaccination Influenza Vacc ine (#1) [facility] Start: 07-08-2024 End: 07-08-2024 Patient encounter procedure 07/08/2024 1:40 PM EDT Office Visit [facility] [address] [place] [address] Ez Solitario MD [address] [place] [address] 6 month follow up [facility] Comment on above: 6 month follow up Start: 06-26-2024 End: 09-25-2024 25-hydroxyvitamin D3 [Mass/volume] in Serum or Plasma VITAMIN D 25 HYDROXY Lab Routine Osteopenia, senile Expected: 06/26/2024, Expires: 09/25/2024 [facility] Work Phone: Comment on above: Expected: 06/26/2024 , Expires: 09/25/2024 Start: 06-26-2024 End: 09-25-2024 CBC W Auto Differential panel - Blood CBC + DIFF Lab Routine Iron deficiency anemia, unspecified iron deficiency anemia type Expected: 06/26/2024, Expires: 09/25/2024 [facility] Work Phone: Comment on above: Expected: 06/26/2024 , Expires: 09/25/2024 Start: 06-26-2024 End: 09-25-2024 Comprehensive metabolic 2000 panel - Serum or Plasma COMP METABOLIC PANEL Lab Routine Stage 3a chronic kidney disease (HCC) Expected: 06/26/2024, Expires: 09/25/2024 [facility] Work Phone: Comment on above: Expected: 06/26/2024 , Expires: 09/25/2024 Start: 06-26-2024 End: 09-25-2024 Ferritin [Mass/volume] in Serum or Plasma FERRITIN BLD Lab Routine Iron deficiency anemia, unspecified iron deficiency anemia type Expected: 06/26/2024, Expires: 09/25/2024 [facility] Work Phone: Comment on above: Expected: 06/26/2024 , Expires: 09/25/2024 Start: 06-26-2024 End: 09-25-2024 Hemoglobin A1c in Blood HGB A1C Lab Routine Elevated hemoglobin A1c Expected: 06/26/2024, Expires: 09/25/2024 [facility] Work Phone: Comment on above: Expected: 06/26/2024 , Expires: 09/25/2024 Start: 06-26-2024 End: 09-25-2024 Iron and Iron binding capacity panel - Serum or Plasma IRON + TIBC Lab Routine Iron deficiency anemia, unspecified iron deficiency anemia type Expected: 06/26/2024, Expires: 09/25/2024 [facility] Work Phone: Comment on above: Expected: 06/26/2024 , Expires: 09/25/2024 Start: 06-26-2024 End: 09-25-2024 LIPID PANEL, NONFASTING LIPID PANEL, NONFASTING Lab Routine Mixed hyperlipidemia Expected: 06/26/2024, Expires: 09/25/2024 [facility] Work Phone: Comment on above: Expected: 06/26/2024 , Expires: 09/25/2024 Start: 06-07-2024 ANNUAL PCP TEAM MANAGER DRILLING VILMA DISEASE VISIT ANNUAL PCP TEAM CHRONIC DISEASE VISIT [facility] Start: 05-30-2024 SERUM CREATININE SERUM CREATININE [facility] Start: 05-24-2024 ANNUAL PCP TEAM MANAGER DRILLING VILMA DISEASE VISIT ANNUAL PCP TEAM CHRONIC DISEASE VISIT [facility] Start: 05-24-2024 BP CONTROLLED (<130/80) BP CONTROLLE D (<130/80) [facility] Start: 05-24-2024 SERUM CREATININE SERUM CREATININE [facility] Start: 05-18-2024 Shingrix Vaccine (2 of 2) Mathews grix Vaccine (2 of 2) [facility] Start: 05-02-2024 ANNUAL PCP TEAM MANAGER DRILLING VILMA DISEASE VISIT ANNUAL PCP TEAM CHRONIC DISEASE VISIT [facility] Start: 05-02-2024 BP CONTROLLED (<130/80) BP CONTROLLE D (<130/80) [facility] Start: 05-02-2024 SERUM CREATININE SERUM CREATININE [facility] Start: 02-13-2024 ANNUAL PCP TEAM MANAGER DRILLING VILMA DISEASE VISIT ANNUAL PCP TEAM CHRONIC DISEASE VISIT [facility] Start: 02-13-2024 BP CONTROLLED (<130/80) BP CONTROLLE D (<130/80) [facility] Start: 02-13-2024 HEMOGLOBIN/HEMATOCRIT HEMOGLOBIN/HEM ATOCRIT [facility] Start: 02-13-2024 SERUM CREATININE SERUM CREATININE [facility] Start: 02-13-2024 SHINGRIX VACCINE (1 of 2) MATHEWS GRIX VACCINE (1 of 2) [facility] Comment on above: Postponed from 03/05 (Insurance Coverage) Start: 02-13-2024 Urine microalbumin profile [facility] Comment on above: Postponed from 03/05 (Insurance Coverage) Start: 01-24-2024 End: 04-24-2024 CBC W Auto Differential panel - Blood CBC + DIFF Lab Routine Medication management Expected: 01/24/2024, Expires: 04/24/2024 [facility] Work Phone: Comment on above: Expected: 01/24/2024 , Expires: 04/24/2024 Start: 01-24-2024 Covid-19 Vaccine () Covid-19 Vaccine () [facility] Start: 01-24-2024 End: 04-24-2024 Ferritin [Mass/volume] in Serum or Plasma FERRITIN BLD Lab Routine Iron deficiency anemia, unspecified iron deficiency anemia type Expected: 01/24/2024, Expires: 04/24/2024 [facility] Work Phone: Comment on above: Expected: 01/24/2024 , Expires: 04/24/2024 Start: 01-24-2024 End: 04-24-2024 Iron and Iron binding capacity panel - Serum or Plasma IRON + TIBC Lab Routine Iron deficiency anemia, unspecified iron deficiency anemia type Expected: 01/24/2024, Expires: 04/24/2024 [facility] Work Phone: Comment on above: Expected: 01/24/2024 , Expires: 04/24/2024 Start: 09-25-2023 End: 12-25-2023 Bacteria identified in Urine by Culture URINE CULTURE Microbiology Routine Vaginal discharge Stage 3a chronic kidney disease (HCC) Other general symptoms and signs Expected: 09/25/2023, Expires: 12/25/2023 [facility] Work Phone: Comment on above: Expected: 09/25/2023 , Expires: 12/25/2023 Start: 09-25-2023 End: 12-25-2023 Basic metabolic 2000 panel - Serum or Plasma [facility] Work Phone: Comment on above: Expected: 09/25/2023 , Expires: 12/25/2023 Start: 09-25-2023 End: 12-25-2023 Urinalysis complete panel - Urine URINALYSIS, WITH MICROSCOPIC Lab Routine Vaginal discharge Stage 3a chronic kidney disease (HCC) Expected: 09/25/2023, Expires: 12/25/2023 [facility] Work Phone: Comment on above: Expected: 09/25/2023 , Expires: 12/25/2023 Start: 08-24-2023 SERUM CREATININE SERUM CREATININE [facility] Start: 08-13-2023 ANNUAL PCP TEAM MANAGER DRILLING VILMA DISEASE VISIT ANNUAL PCP TEAM CHRONIC DISEASE VISIT [facility] Start: 08-13-2023 BP CONTROLLED (<130/80) BP CONTROLLE D (<130/80) [facility] Start: 08-08-2023 HEMOGLOBIN/HEMATOCRIT HEMOGLOBIN/HEM ATOCRIT [facility] Start: 08-08-2023 SERUM CREATININE SERUM CREATININE Cl [facility] Start: 08-06-2023 Patient discharge [facility] Start: 08-05-2023 [facility] Start: 08-05-2023 [facility] Start: 08-05-2023 Urine culture Urine Culture [facility] Start: 08-03-2023 Removal of urinary catheter [facility] Start: 08-02-2023 End: 10-02-2023 CBC W Auto Differential panel - Blood CBC + DIFF Lab Routine Stage 3a chronic kidney disease (HCC) Low serum vitamin B12 Expected: 08/02/2023, Expires: 10/02/2023 [facility] Work Phone: Comment on above: Expected: 08/02/2023 , Expires: 10/02/2023 Start: 08-02-2023 End: 10-02-2023 Cobalamin (Vitamin B12) [Mass/volume] in Serum or Plasma VITAMIN B12 BLOOD Lab Routine GERD without esophagitis Low serum vitamin B12 Medication management Expected: 08/02/2023, Expires: 10/02/2023 [facility] Work Phone: Comment on above: Expected: 08/02/2023 , Expires: 10/02/2023 Start: 08-02-2023 End: 10-02-2023 Comprehensive metabolic 2000 panel - Serum or Plasma COMP METABOLIC PANEL Lab Routine Essential hypertension Mixed hyperlipidemia Elevated fasting blood sugar Stage 3a chronic kidney disease (HCC) Expected: 08/02/2023, Expires: 10/02/2023 [facility] Work Phone: Comment on above: Expected: 08/02/2023 , Expires: 10/02/2023 Start: 08-02-2023 End: 10-02-2023 Hemoglobin A1c in Blood HGB A1C Lab Routine Elevated fasting blood sugar Expected: 08/02/2023, Expires: 10/02/2023 [facility] Work Phone: Comment on above: Expected: 08/02/2023 , Expires: 10/02/2023 Start: 08-02-2023 End: 10-02-2023 LIPID PANEL, NONFASTING LIPID PANEL, NONFASTING Lab Routine Essential hypertension Mixed hyperlipidemia Expected: 08/02/2023, Expires: 10/02/2023 [facility] Work Phone: Comment on above: Expected: 08/02/2023 , Expires: 10/02/2023 Start: 08-02-2023 End: 10-02-2023 Magnesium [Mass/volume] in Serum or Plasma MAGNESIUM BLD Lab Routine GERD without esophagitis Medication management Expected: 08/02/2023, Expires: 10/02/2023 [facility] Work Phone: Comment on above: Expected: 08/02/2023 , Expires: 10/02/2023 Start: 08-02-2023 End: 10-02-2023 Urinalysis complete panel - Urine URINALYSIS, WITH MICROSCOPIC Lab Routine Essential hypertension Mixed hyperlipidemia Stage 3a chronic kidney disease (HCC) Expected: 08/02/2023, Expires: 10/02/2023 [facility] Work Phone: Comment on above: Expected: 08/02/2023 , Expires: 10/02/2023 Start: 08-01-2023 Following clinical p athway protocol [facility] Start: 08-01-2023 Application of intermittent pneumatic compression device [facility] Start: 08-01-2023 Ambulation without limitation [facility] Start: 08-01-2023 Catheterization of vein [facility] Start: 08-01-2023 Measuring intake and output [facility] Start: 08-01-2023 Notification of physician [facility] Start: 08-01-2023 Referral to occupati onal therapist [facility] [facility] Start: 08-01-2023 Referral to service [facility] Start: 08-01-2023 Vital signs measurements [facility] Start: 08-01-2023 [facility] Start: 08-01-2023 Partial resection of colon Col ectomy Mathieu (Not Applicable) [facility] Start: 08-01-2023 Admission procedure [facility] Start: 08-01-2023 Verification routine [facility] Start: 08-01-2023 [facility] Start: 08-01-2023 Patient referral to dietitian [facility] Start: 07-28-2023 Repair complex scalp/arm/leg 2.6-7.5 cm CMPLX RPR S/A/L 2.6-7.5 CM [facility] Start: 07-28-2023 Repair complex scalp/arm/leg ea addl 5 cm/< CMPLX RPR S/A/L ADDL 5 CM/> [facility] Start: 07-24-2023 End: 09-23-2023 Basic metabolic 2000 panel - Serum or Plasma BASIC METABOLIC PNL Lab Routine Medication management Essential hypertension Expected: 07/24/2023, Expires: 09/23/2023 [facility] Work Phone: Comment on above: Expected: 07/24/2023 , Expires: 09/23/2023 Start: 07-19-2023 Covid-19 Vaccine ( season) Covid-19 Vaccine () [facility] Start: 07-19-2023 Influenza vaccination [facility] Start: 06-14-2023 COVID-19 VACCINE (4 - Moderna series) COVID-19 VACCINE (4 - Moderna series) [facility] Start: 05-30-2023 End: 07-30-2023 Basic metabolic 2000 panel - Serum or Plasma BASIC METABOLIC PNL Lab Routine Peripheral edema Expected: 05/30/2023, Expires: 07/30/2023 [facility] Work Phone: Comment on above: Expected: 05/30/2023 , Expires: 07/30/2023 Start: 05-24-2023 End: 07-24-2023 Basic metabolic 2000 panel - Serum or Plasma [facility] Work Phone: Comment on above: Expected: 05/24/2023 , Expires: 07/24/2023 Start: 05-17-2023 Influenza vaccination INFLUENZA (#1) [facility] Comment on above: Postponed from 07/19 (Declined at this time) Start: 05-02-2023 End: 07-02-2023 Comprehensive metabolic 2000 panel - Serum or Plasma [facility] Work Phone: Comment on above: Expected: 05/02/2023 , Expires: 07/02/2023 Start: 05-02-2023 End: 07-02-2023 Natriuretic peptide.B prohormone N-Terminal [Mass/volume] in Serum or Plasma [facility] Work Phone: Comment on above: Expected: 05/02/2023 , Expires: 07/02/2023 Start: 02-11-2023 End: 04-13-2023 Basic metabolic 2000 panel - Serum or Plasma BASIC METABOLIC PNL Lab Routine Stage 3a chronic kidney disease (HCC) Expected: 02/11/2023, Expires: 04/13/2023 [facility] Work Phone: Comment on above: Expected: 02/11/2023 , Expires: 04/13/2023 Start: 02-11-2023 End: 04-13-2023 CBC W Auto Differential panel - Blood CBC + DIFF Lab Routine Stage 3a chronic kidney disease (HCC) Low serum vitamin B12 Anemia, unspecified type Expected: 02/11/2023, Expires: 04/13/2023 [facility] Work Phone: Comment on above: Expected: 02/11/2023 , Expires: 04/13/2023 Start: 02-11-2023 End: 04-13-2023 Cobalamin (Vitamin B12) [Mass/volume] in Serum or Plasma VITAMIN B12 BLOOD Lab Routine Low serum vitamin B12 Expected: 02/11/2023, Expires: 04/13/2023 [facility] Work Phone: Comment on above: Expected: 02/11/2023 , Expires: 04/13/2023 Start: 02-11-2023 End: 04-13-2023 Hemoglobin A1c in Blood HGB A1C Lab Routine Elevated fasting blood sugar Expected: 02/11/2023, Expires: 04/13/2023 [facility] Work Phone: Comment on above: Expected: 02/11/2023 , Expires: 04/13/2023 Start: 02-07-2023 ANNUAL PCP TEAM MANAGER DRILLING VILMA DISEASE VISIT ANNUAL PCP TEAM CHRONIC DISEASE VISIT [facility] Start: 02-07-2023 BP CONTROLLED (<130/80) BP CONTROLLE D (<130/80) [facility] Start: 02-07-2023 Urine microalbumin profile DTAP,TDAP ,TD (1 - Tdap) [facility] Comment on above: Postponed from 03/05 (Insurance Coverage) Start: 02-05-2023 HEMOGLOBIN/HEMATOCRIT HEMOGLOBIN/HEM [facility] Start: 02-05-2023 SERUM CREATININE SERUM CREATININE [facility] Start: 01-01-2023 HEMOGLOBIN/HEMATOCRIT HEMOGLOBIN/HEM [facility] Start: 01-01-2023 SERUM CREATININE SERUM CREATININE [facility] Start: 11-18-2022 ADVANCE DIRECTIVE DISCUSSION ADVANCE DIRECTIVE DISCUSSION [facility] Start: 09-05-2022 ANNUAL PCP TEAM MANAGER DRILLING VILMA DISEASE VISIT ANNUAL PCP TEAM CHRONIC DISEASE VISIT [facility] Start: 07-27-2022 End: 09-26-2022 CBC W Auto Differential panel - Blood CBC + DIFF Lab Routine Stage 3a chronic kidney disease (HCC) Low serum vitamin B12 Expected: 07/27/2022, Expires: 09/26/2022 [facility] Work Phone: Comment on above: Expected: 07/27/2022 , Expires: 09/26/2022 Start: 07-27-2022 End: 09-26-2022 Comprehensive metabolic 2000 panel - Serum or Plasma COMP METABOLIC PANEL Lab Routine Essential hypertension Mixed hyperlipidemia Stage 3a chronic kidney disease (HCC) Expected: 07/27/2022, Expires: 09/26/2022 [facility] Work Phone: Comment on above: Expected: 07/27/2022 , Expires: 09/26/2022 Start: 07-27-2022 End: 09-26-2022 Hemoglobin A1c/Hemoglobin.total in Blood HGB A1C Lab Routine Elevated fasting blood sugar Expected: 07/27/2022, Expires: 09/26/2022 [facility] Work Phone: Comment on above: Expected: 07/27/2022 , Expires: 09/26/2022 Start: 07-27-2022 End: 09-26-2022 LIPID PANEL, NONFASTING LIPID PANEL, NONFASTING Lab Routine Essential hypertension Mixed hyperlipidemia Expected: 07/27/2022, Expires: 09/26/2022 [facility] Work Phone: Comment on above: Expected: 07/27/2022 , Expires: 09/26/2022 Start: 07-27-2022 End: 09-26-2022 Magnesium [Mass/volume] in Serum or Plasma MAGNESIUM BLD Lab Routine GERD without esophagitis Medication management Expected: 07/27/2022, Expires: 09/26/2022 [facility] Work Phone: Comment on above: Expected: 07/27/2022 , Expires: 09/26/2022 Start: 07-27-2022 End: 09-26-2022 Urinalysis complete panel - Urine URINALYSIS, WITH MICROSCOPIC Lab Routine Essential hypertension Mixed hyperlipidemia Stage 3a chronic kidney disease (HCC) Expected: 07/27/2022, Expires: 09/26/2022 [facility] Work Phone: Comment on above: Expected: 07/27/2022 , Expires: 09/26/2022 Start: 07-27-2022 End: 09-26-2022 VITAMIN B12 BLOOD VITAMIN B12 BLOOD Lab Routine Low serum vitamin B12 Expected: 07/27/2022, Expires: 09/26/2022 [facility] Work Phone: Comment on above: Expected: 07/27/2022 , Expires: 09/26/2022 Start: 07-19-2022 Influenza vaccination INFLUENZA (#1) [facility] Start: 02-05-2022 End: 04-07-2022 CBC W Auto Differential panel - Blood [facility] Work Phone: Comment on above: Expected: 02/05/2022 , Expires: 04/07/2022 Start: 02-05-2022 End: 04-07-2022 Comprehensive metabolic 2000 panel - Serum or Plasma [facility] Work Phone: Comment on above: Expected: 02/05/2022 , Expires: 04/07/2022 Start: 02-05-2022 End: 04-07-2022 Hemoglobin A1c/Hemoglobin.total in Blood [facility] Work Phone: Comment on above: Expected: 02/05/2022 , Expires: 04/07/2022 Start: 02-05-2022 End: 04-07-2022 LIPID PANEL, NONFASTING [facility] Work Phone: Comment on above: Expected: 02/05/2022 , Expires: 04/07/2022 Start: 02-05-2022 End: 04-07-2022 Magnesium [Mass/volume] in Serum or Plasma [facility] Work Phone: Comment on above: Expected: 02/05/2022 , Expires: 04/07/2022 Start: 02-05-2022 End: 04-07-2022 Urinalysis complete panel - Urine [facility] Work Phone: Comment on above: Expected: 02/05/2022 , Expires: 04/07/2022 Start: 02-05-2022 End: 04-07-2022 VITAMIN B12 BLOOD [facility] Work Phone: Comment on above: Expected: 02/05/2022 , Expires: 04/07/2022 Start: 01-16-2022 BP CONTROLLED (<130/80) BP CONTROLLE D (<130/80) [facility] Start: 11-18-2021 ADVANCE DIRECTIVE DISCUSSION ADVANCE DIRECTIVE DISCUSSION [facility] Start: 11-04-2021 Mammography [facility] Start: 11-04-2021 Screening for malign ant neoplasm of breast Mammogram Screening [facility] Start: 07-19-2021 COVID-19 VACCINE (3 - Booster for Moderna series) COVID-19 VACCINE (3 - Booster for Moderna series) [facility] Start: 04-13-2021 COVID-19 VACCINE (3 - Booster for Moderna series) COVID-19 VACCINE (3 - Booster for Moderna series) [facility] Start: 02-19-2021 Colonoscopy COLONOSCOPY [facility] Start: 02-19-2021 COLORECTAL CANCER SCREENING COLORECTAL CANCER SCREENING [facility] Start: 2011 RSV Vaccine (1 - 1-d ose 60+ series) RSV Vaccine (1 - 1-dose 60+ series) [facility] Start: 2001 SHINGRIX VACCINE (1 of 2) MATHEWS GRIX VACCINE (1 of 2) [facility] Start: 1996 COLOGUARD (FIT-DNA) COLOGUARD (FIT-D NA) [facility] Start: [address] COLONOGRAPHY [facility] Start: 1996 FECAL OCCULT BLOOD FECAL OCCULT BLOO D [facility] Start: 1996 Screening for malign ant neoplasm of colon [facility] Start: 1996 [facility] Start: 1970 Urine microalbumin profile [facility] Anion gap in Serum o r Plasma [facility] Anion gap in Serum o r Plasma [facility] Anion gap in Serum o r Plasma [facility] End: 02-10-2026 BD DXA TRABECULAR BONE SCORE (TBS) BD DXA TRABECULAR BONE SCORE (TBS) Radiology Routine Asymptomatic menopause 1 Occurrences starting 01/11/2025 until 02/10/2026 [facility] Comment on above: 1 Occurrences starti ng 01/11/2025 until 02/10/2026 Bilirubin measuremen t, urine [facility] BUN/Creatinine ratio [facility] BUN/Creatinine ratio [facility] BUN/Creatinine ratio [facility] Calcium [Mass/volume ] in Serum or Plasma [facility] Calcium [Mass/volume ] in Serum or Plasma [facility] Calcium [Mass/volume ] in Serum or Plasma [facility] Carbon dioxide, tota l [Moles/volume] in Central venous blood [facility] Carbon dioxide, tota l [Moles/volume] in Central venous blood [facility] Carbon dioxide, tota l [Moles/volume] in Central venous blood [facility] End: 10-07-2024 COLONOSCOPY DIAGNOSTIC COLONOSCOPY DIAGNOSTIC Endoscopy Routine Iron deficiency anemia, unspecified iron deficiency anemia type 1 Occurrences starting 10/07/2023 until 10/07/2024 [facility] Work Phone: Comment on above: 1 Occurrences starti ng 10/07/2023 until 10/07/2024 Creatinine [Mass/vol ume] in Serum or Plasma [facility] Creatinine [Mass/vol ume] in Serum or Plasma [facility] Creatinine [Mass/vol ume] in Serum or Plasma [facility] End: 10-30-2025 DBT Breast - bilateral screening SONIA SCREENING [facility] Radiology Routine Encounter for screening mammogram for breast cancer 1 Occurrences starting 09/30/2024 until 10/30/2025 [facility] Work Phone: Comment on above: 1 Occurrences starti ng 09/30/2024 until 10/30/2025 DBT Breast - bilater al screening SONIA SCREENING [facility] [place] Radiology Routine Encounter for screening mammogram for breast cancer 02/22/2025 1:36 PM EDT [facility] Work Phone: End: 03-09-2023 Dxa bone density study 1/> sites axial skel DXA-AXIAL SKELETON Radiology Routine Osteopenia, senile Primary ovarian failure 1 Occurrences starting 02/07/2022 until 03/09/2023 [facility] Work Phone: Comment on above: 1 Occurrences starti ng 02/07/2022 until 03/09/2023 End: 02-10-2026 DXA Skeletal system.axial Views for bone density DXA-AXIAL SKELETON Radiology Routine Asymptomatic menopause 1 Occurrences starting 01/11/2025 until 02/10/2026 [facility] Comment on above: 1 Occurrences starti ng 01/11/2025 until 02/10/2026 End: 05-02-2024 ECG COMPLETE ECG COMPLETE ECG Routine Essential hypertension 1 Occurrences starting 05/02/2023 until 05/02/2024 [facility] Work Phone: Comment on above: 1 Occurrences starti ng 05/02/2023 until 05/02/2024 ECG COMPLETE ECG COMPLETE ECG 05/02/2023 2:45 PM EDT [facility] End: 05-02-2024 Echocardiography ECHO Cardiology Routine Lower extremity edema 1 Occurrences starting 05/02/2023 until 05/02/2024 [facility] Work Phone: Comment on above: 1 Occurrences starti ng 05/02/2023 until 05/02/2024 End: 10-07-2024 EGD DIAGNOSTIC EGD DIAGNOSTIC Endoscopy Routine Iron deficiency anemia, unspecified iron deficiency anemia type 1 Occurrences starting 10/07/2023 until 10/07/2024 [facility] Work Phone: Comment on above: 1 Occurrences starti ng 10/07/2023 until 10/07/2024 Erythrocyte mean corpuscular volume determination [facility] Erythrocyte mean corpuscular volume determination [facility] Erythrocyte mean corpuscular volume determination [facility] Glucose [Mass/volume ] in Serum or Plasma [facility] Glucose [Mass/volume ] in Serum or Plasma [facility] Glucose [Mass/volume ] in Serum or Plasma [facility] Hematocrit [Volume Fraction] of Blood [facility] Hematocrit [Volume Fraction] of Blood [facility] Hematocrit [Volume Fraction] of Blood [facility] Hemoglobin [Mass/vol ume] in Blood [facility] Hemoglobin [Mass/vol ume] in Blood [facility] Hemoglobin [Mass/vol ume] in Blood [facility] Hemoglobin [Presence ] in Urine [facility] Leukocytes [#/volume ] in Blood [facility] Leukocytes [#/volume ] in Blood [facility] Leukocytes [#/volume ] in Blood [facility] Magnesium measurement [facility] End: 11-21-2024 [facility] SCREENING SONIA SCREENING Radiology Routine Encounter for screening mammogram for breast cancer 1 Occurrences starting 10/23/2023 until 11/21/2024 [facility] Work Phone: Comment on above: 1 Occurrences starti ng 10/23/2023 until 11/21/2024 Mean corpuscular hemoglobin concentration determination [facility] Mean corpuscular hemoglobin concentration determination [facility] Mean corpuscular hemoglobin concentration determination [facility] Mean corpuscular hemoglobin determination [facility] Mean corpuscular hemoglobin determination [facility] Mean corpuscular hemoglobin determination [facility] Measurement of keton es in urine using dipstick [facility] Measurement of renal function [facility] Measurement of renal function [facility] Measurement of renal function [facility] Microscopic urinalysis [facility] Neutrophil count [facility] Neutrophil count [facility] Neutrophil count [facility] Neutrophil percent differential count [facility] Neutrophil percent differential count [facility] Neutrophil percent differential count [facility] Patient Education ED Head Injury (Adult) ED Laceration Scalp Stitches or Carmelina [facility] Work Phone: Patient referral [facility] Work Phone: pH of Urine [facility] Platelets [#/volume] in Blood [facility] Platelets [#/volume] in Blood [facility] Platelets [#/volume] in Blood [facility] Potassium measurement [facility] Potassium measurement [facility] Potassium measurement [facility] Red blood cell count [facility] Red blood cell count [facility] Red blood cell count [facility] Red cell distributio n width determination [facility] Red cell distributio n width determination [facility] Red cell distributio n width determination [facility] Serum chloride measurement [facility] Serum chloride measurement [facility] Serum chloride measurement [facility] Sodium measurement [facility] Sodium measurement [facility] Sodium measurement [facility] Specific gravity of Urine [facility] Urea nitrogen [Mass/volume] in Serum or Plasma [facility] Urea nitrogen [Mass/volume] in Serum or Plasma [facility] Urea nitrogen [Mass/volume] in Serum or Plasma [facility] Urinalysis, blood, qualitative [facility] Urine dipstick for glucose [facility] Urine dipstick for leukocyte esterase [facility] Urine dipstick for nitrite [facility] Urine dipstick for protein [facility] Urine examination [facility] Urine microscopy: epithelial cells [facility] Urine Microscopy: wh ite cells [facility] Urobilinogen [Presen ce] in Urine [facility] End: 05-24-2024 US LEG VEIN DVT [facility] US LEG VEIN DVT [facility] Vascular Lab Routine Peripheral edema Leg swelling 1 Occurrences starting 05/24/2023 until 05/24/2024 [facility] Work Phone: Comment on above: 1 Occurrences starti ng 05/24/2023 until 05/24/2024 End: 09-19-2025 XR Lumbar spine AP and Lateral and oblique XR LUMBAR PARS DEFECT 4V AP/LAT/BOTH OBL Radiology Routine Left leg pain 1 Occurrences starting 08/20/2024 until 09/19/2025 [facility] Work Phone: Comment on above: 1 Occurrences starti ng 08/20/2024 until 09/19/2025 XR Lumbar spine AP a nd Lateral and oblique XR LUMBAR PARS DEFECT 4V AP/LAT/BOTH OBL Radiology Routine Left leg pain 08/20/2024 12:02 PM EDT [facility] End: 09-19-2025 XR Pelvis and Hip - left AP and Lateral frog XR HIP GENERAL 3V PELV/AP/LAT LEFT Radiology Routine Left leg pain 1 Occurrences starting 08/20/2024 until 09/19/2025 [facility] Comment on above: 1 Occurrences starti ng 08/20/2024 until 09/19/2025 XR Pelvis and Hip - left AP and Lateral frog XR HIP GENERAL 3V PELV/AP/LAT LEFT Radiology Routine Left leg pain 08/20/2024 12:02 PM EDT 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 FARMER.HYDROELECTRIC PRODUCTION TECHNICIAN Work Phone: [facility] 08-20-2024 influenza virus vacc ine, unspecified formulation Ez Solitario MD Work Phone: [facility] 06-02-2024 zoster vaccine recombinant Ez Solitario MD Work Phone: [facility] 03-23-2024 tetanus toxoid, redu judith diphtheria toxoid, and acellular pertussis vaccine, adsorbed Ez Solitario MD Work Phone: [facility] 03-23-2024 tetanus toxoid, unspecified formulation Lauren Camacho PA-C Work Phone: [facility] 03-23-2024 zoster vaccine recombinant Ez Solitario MD Work Phone: [facility] 09-25-2023 COVID-19 vaccine, ag e 12+ yr, season ([employer]) Ez Solitario MD Work Phone: [facility] 09-25-2023 influenza (HD-IIV4) vaccine, age 65+ yr, high dose, quadrivalent, PF (FLUZONE HIGH-DOSE) Ez Solitario MD Work Phone: [facility] 09-25-2023 influenza virus vacc ine, unspecified formulation Ez Solitario MD Work Phone: [facility] 02-12-2023 COVID-19 booster vaccine, age 12+ yr, bivalent ([employer]) Ez Solitario MD Work Phone: [facility] 07-20-2021 influenza, high-dose , quadrivalent vaccine (FLUZONE HIGH DOSE QUADRIVALENT) Ez Solitario MD Work Phone: [facility] 07-20-2021 influenza virus vacc ine, unspecified formulation Ez Solitario MD Work Phone: [facility] 02-17-2021 Covid (Moderna) Dr. Ez Solitario Work Phone: [facility] 02-16-2021 COVID-19 vaccine, fu ll dose (MODERNA) Ez Solitario MD Work Phone: [facility] Work Phone: 01-20-2021 Covid (Moderna) Dr. Ez Solitario Work Phone: [facility] 07-16-2020 Influenza High-Dose Quadrivalent Dr. Ez Solitario Work Phone: [facility] 07-16-2020 influenza, high dose seasonal, preservative-free Ez Solitario MD Work Phone: [facility] 09-22-2019 Influenza, high dose seasonal Dr. Ez Solitario MD Work Phone: [facility] 09-22-2019 influenza, high dose seasonal, preservative-free Ez Solitario MD Work Phone: [facility] 09-02-2018 Influenza, high dose seasonal Dr. Ez Solitario MD Work Phone: [facility] 09-02-2018 influenza, high dose seasonal, preservative-free Ez Solitario MD Work Phone: [facility] 06-06-2018 pneumococcal polysaccharide vaccine, 23 valent Ez Solitario MD Work Phone: [facility] 09-11-2017 influenza, high dose seasonal, preservative-free Ez Solitario MD Work Phone: [facility] 09-11-2017 Seasonal trivalent influenza vaccine, adjuvanted, preservative free Dr. Ez Solitario Work Phone: [facility] 06-05-2017 pneumococcal conjuga te vaccine, 13 valent Ez Solitario MD Work Phone: [facility] 08-31-2016 Influenza, high dose seasonal Dr. Ez Solitario MD Work Phone: [facility] 08-31-2016 influenza, high dose seasonal, preservative-free Ez Solitario MD Work Phone: [facility] Work Phone: Payers Date Payer Category Payer Medicaid [id number] 2024 Self-pay [id number] 2024 Unknown [id number] 2016 Medicare MEDICARE MEDICAR E A AND B [id number] 2016-Present [phone] [address] [address] [place] [address] Medicare [id number] 2016 Medicare [id number] 2016 Medicare [id number] 2015 [employer] ANTHEM BC BS FEP PPO [id number] 2015 Unknown ANTHEM ANTHEM BC BS FEP PPO [id number] 2015-Present [phone] PO [address] [place] [address] PPO [id number] 2015 Unknown ANTHEM ANTHEM BC BS FEP PPO [id number] 2015-Present [phone] [address] [place] [id number] PPO [id number] 2012 Unknown [id number] 1950 Unknown [id number]. 627 Unknown [id number] .[id number]. 462 Unknown [id number] .[id number]. 462 Unknown [id number] [id number]. 462 Unknown [id number] 2.16840.1.987381.3.579.2. 462 Unknown [id number] .[id number]. 462 Unknown [id number] [id number]. 462 Unknown [id number] [id number]. 462 Unknown [id number] 2.16.840.1.659601.3.579.2. 462 Unknown [id number] [id number]. 462 Unknown [id number]. 462 Social History Date Type Detail Facility Start: 02-07-2016 End: 07-07-2025 Tobacco smoking status NHIS Never smoked tobacco [facility] Work Phone: Start: 02-07-2016 End: 08-13-2022 Tobacco use and exposure Smokeless tobacco non-user [facility] Work Phone: Start: 09-05-2021 End: 01-11-2025 Alcohol intake Current drinker of alcohol (finding) [facility] Start: 12-25-2018 History SDOH Alcohol Comment approximately 1-2 beers,wine daily [facility] Start: 1950 Sex Assigned At Not on file [facility] Start: 01-28-2022 End: 08-13-2022 Exposure to SARS-CoV-2 (event) Not sure [facility] Start: 08-13-2022 History SDOH Alcohol Comment approximately 1-2 beers/wine daily [facility] Start: 07-21-2016 End: 08-01-2023 Tobacco smoking status OKIS Unknown if ever smoked [facility] Start: 1950 Sex Assigned At Female [facility] Start: 05-24-2023 End: 09-25-2023 History of Social function [facility] Start: 05-24-2023 End: 09-25-2023 Tobacco use panel [facility] Start: 02-06-2016 Adult Depression Screening Assessment 0 [facility] Tobacco smoking status No Smoking Status Entered [facility] NEGATED: Highlighted row [facility] Medical Equipment Procedure Code Equipment Code Equipment [...] Assessment Result Facility 07-08-2025 Functional status Ambulates [facility] Work Phone: 08-06-2023 Functional status Ambulates;Chair [facility] Work Phone: Mental Status Date Assessment Result Facility 07-08-2025 Cognitive function Voice/Name [facility] Work Phone: 07-07-2025 Cognitive function Level Of Cons ciousness Awake;Alert;Appropriate;Follow s Commands [facility] Work Phone: 08-06-2023 Cognitive function Voice/Name [facility] Work Phone: Clinical Notes 06-05-2017 to 08-31-2025 Note Date & Type Note Facility 08-31-2025 Note HNO ID: [id number] Author: BERLIN URRUTIA LPN Service: ? Author Type: Licensed Nurse Type: Progress Notes Filed: 08/31/2025 14:49 Note Text: Scan on 08/31/2025 2:06 PM by Provider, CATHERINE Manzo: Consultation - Neurology [facility] 08-23-2025 Note HNO ID: [id number] Author: LAUREN CAMACHO PA-C Service: ? Author Type: Physician Clinical Resource Director Type: Progress Notes Filed: 08/23/2025 14:34 Note Text: Chief Complaint Patient presents with: was discharged from [facility] on 08/20/25 and went to [facility] Prashant Sheffield is a 75 year old female who presents here today for Hospital Discharge Follow up.. Patient is here today with her sister, Moo. On 07/07 patient presented to ER due to pain and depressive symptoms. She was then admitted to a [facility] facility and then discharged from there to [facility]. Parkinson's Disease: - Recent hospitalization at [facility] in [place], [place], followed by a 30-day stay at [facility]. - Neurology follow-up scheduled for August 31. - Recent medication discrepancies noted: - Benztropine: Previously taking 0.5 mg BID; currently on 2 mg daily. - Pramipexole: Previously taking 1 mg BID; currently on 1 mg TID. - Citalopram: Previously on 30 mg daily; When she was disharged back to [facility], she is on lexapro 10mg. - Atorvastatin: [...] ibuprofen PRN. - Sister reports Prashant is still not herself. Past medical history, appointments, medications, allergies reviewed. Previous Medical History PAST MEDICAL HISTORY Diagnosis Date Alcohol use 02/07/2016 1-2 drinks a day. 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 Man in [facility] Stage 3a chronic kidney disease (HCC) [...] syndrome with her neuro meds. Codeine Intolerance crazy dreams does not like to take it Current [...] mouth every 12 (more content not included)... [facility] 08-19-2025 Note HNO ID: [id number] Author: KAREN ORELLANA MA Service: ? Author Type: Environmental Department Manager Type: Progress Notes Filed: 08/19/2025 08:32 Note Text: POPULATION HEALTH NAVIGATION OUTREACH Action/FYI HCC gap closure added to upcoming appointment notes. Reason for Outreach Care Gap/HCC or Scheduling Wellness Visits Care Gaps due: N/A Patient Contacted: Unable or unnecessary to reach patient: HCC related Patient already scheduled Updated appointment notes Navigation Signature: Karen Orellana MA August 19, 2025 8:31 AM [facility] 08-19-2025 Note Patient Outreach (NE TNAV) PRASHANT SHEFFIELD ([id number]) 1950 F Date Time Provider Department 08/19/25 KAREN ORELLANAV During your visit today, we recorded the following information about you: Karen Orellana MA 08/19/2025 8:32 AM Signed POPULATION HEALTH NAVIGATION OUTREACH Action/FYI HCC gap [...] meds. CODEINE 02/07/2016 5 - Intolerance Comments: crazy dreams does not like to take it Date Reviewed: 03/08/2025 Reviewed by: Sury Harding LPN - Fully Assessed Reason for Visit: Population Health Navigation Outreach [5430] Cmt: [place]/Workbench/ACO Prescriptions as of 08/19/2025 - DULoxetine (CYMBALTA) 30 mg capsule Take 1 capsule [...] 1 tablet by mouth once daily. - zwatwaf-hpxwhmire-rznohlb D3 (CALCIUM 500+D) 500 mg-5 mcg (200 [...] two times a day. Per Neurology at [facility] - Melatonin 5 mg cap Take 2 capsules by mouth daily at bedtime. - cyanocobalamin (VITAMIN B-12) 1,000 mcg tab Take 1 tablet by mouth once daily. - citalopram (CELEXA) 20 mg tablet Take 1 tablet by mouth daily at bedtime. Take with 10mg dose for total of 30mg daily. Per neurology at [facility] - estradiol (ESTRACE) 0.01 % (0.1 mg/gram) [...] Encounter Status:Closed by KAREN ORELLANA on 08/19/25 [facility] 07-09-2025 Note [facility] Medical Records Department [address] [place] [address] Discharge Summary 07/09/25 0712 MR#: [id number] Acct: [id number] Name: PRASHANT SHEFFIELD Rep #: [id number] : 1950 75 From: Davin Kirkland MD PCP: Dr. Ez Solitario MD Status:DIS ROXIE Location: [place] [id number] Providers Date of Admission: 07/07/25 Date of Discharge: 07/08/25 Primary Care Physician: Dr. Ez Solitario MD Reason For Visit: GENERALIZED WEAKNESS Diagnosis Discharge Diagnosis (1) Generalized muscle weakness: Status: Acute Code(s): M62.81 - Muscle weakness (generalized) Plan Patient is a 75 F with past medical history significant for Parkinson's disease resident [facility] who was brought to the emergency department with generalized weakness. 1. Physical debility ??? Patient has underlying Parkinson disease contributing to her symptoms. Patient has been admitted to a regular nursing floor requested for PT/OT eval and child welfare social worker to assist with discharge planning. [...] bisacodyl 10 mg rectal suppository 10 mg ID .PRN X 1 PRN Constipation #1 ea [...] Non-Af 63, BUN/Cre (more content not included)... [facility] 07-08-2025 Progress note Note Date/Time July 08, 2025 9:33am [facility] Medical Records Department [address] [place] [address] Progress Note - Hospitalist 07/08/2511 MR#: [id number] Acct: [id number] Name: PRASHANT SHEFFIELD Rep #:[id number] : 1950 75 From: Davin Kirkland MD PCP: Dr. Ez Solitario MD Status:ADM ROXIE Location: [address] Reason for Visit Chief Complaint: Generalized weakness [...] Clarity Clear, Urine pH 6.0, Ur Specific [place] 1.010, Urine Protein 30 H, Urine Glucose [...] % (Auto) 66.1, Lymph % (Auto) 22.8, [place] % (Auto) 8.3, Eos % (Auto) 1.5, [...] % (Auto) 59.2, Lymph % (Auto) 28.3, [place] % (Auto) 9.1, Eos % (Auto) 2.3, [...] Chest CT correlation is recommended. [facility] Rhythm Strip Rhythm Strip: Sinus Rhythm Rate: [...] medical history significant for Parkinson's disease resident [facility] who was brought to the emergency department with generalized weakness. 1. Physical debility ? Patient has underlying Parkinson disease contributing to her symptoms. Patient has been admitted to a regular nursing floor requested for PT/OT eval and child welfare social worker to assist with discharge planning. [...] 38 Minutes Charges/Coding Visit Charges Inpatient E&M: 15607 Subs Hosp L2 07/08/25 0933 <Electronically signed by Davin Kirkland MD> Cosigner Signature (if applicable): CC: ~ Signed [facility] Work Phone: 1(675) 324-783408-21-2025 Progress note [facility] Medical Records Department [address] [place] [address] Progress Note - Hospitalist 07/08/25 0811 MR#: [id number] Acct: [id number] Name: PRASHANT SHEFFIELD Rep #:[id number] : 1950 75 From: Davin Kirkland MD PCP: Dr. Ez Solitario MD Status:ADM ROXIE Location: [place] [address] Reason for Visit Chief Complaint: Generalized weakness [...] Clarity Clear, Urine pH 6.0, Ur Specific [place] 1.010, Urine Protein 30 H, Urine Glucose [...] Neut% (Auto) 66.1, Lymph % (Auto) 22.8, [place] % (Auto) 8.3, Eos % (Auto) 1.5, [...] Neut% (Auto) 59.2, Lymph % (Auto) 28.3, [place] % (Auto) 9.1, Eos % (Auto) 2.3, [...] Chest CT correlation is recommended. Reading Location: [facility] Rhythm Strip Rhythm Strip: Sinus Rhythm Rate: [...] medical history significant for Parkinson's disease resident distended care facility who was brought to the emergency department with generalized weakness. 1. Physical debility ? Patient has underlying Parkinson disease contributing to her symptoms. Patient has been admitted to a regular nursing floor requested for PT/OT eval and child welfare social worker to assist with discharge planning. [...] 38 Minutes Charges/Coding Visit Charges Inpatient E&M: 98178 Subs Hosp L2 07/08/25 0933 Cosigner Signature (if applicable): CC: ~ Signed [facility]08-20-2025 Discharge summary Author Shaji Rosales [facility] Note Date/Time July 07, 2025 3: 46pm [facility] Medical Records Department [address] [place] [address] Emergency Department Summary 07/07/25 MR#: [id number] Acct: [id number] Name: PRASHANT SHEFFIELD Rep #:[id number] : 1950 75 From: Shaji Rosales MD PCP: Dr. Ez Solitario MD Status:ADM ROXIE Location: MS3 SE582-3 HPI History of Present Illness Chief Complaint: [...] similar symptoms: No Recent Illness/Hospitalization: No [facility] Medical History Dysphagia History of 1 Parkinson [...] x 500 mg) PO Q 8 PRN 10/03/23 Unknown Rx pain #1 TAB alendronate 70 mg tablet 70 mg PO OLMOS osteoporosis #1 TAB 08/20/23 07/28/23 Rx bisacodyl 10 mg rectal suppository 10 mg ID .PRN X 1 P RN Constipation 08/20/23 [...] Time codeine AdvReac CRAZY Verified 09/03/23 13:40 DREAMS DOES NOT LIKE TO TAKE IT Family History Father , at 51 YOA due to [place] CAD (coronary artery disease) Mother , she [...] she does have equal and symmetrical 4-5 german teacher strength. She really cannot lift either leg [...] % (Auto) 66.1 Lymph % (Auto) 22.8 [place] % (Auto) 8.3 Eos % (Auto) 1.5 [...] Clarity Clear Urine pH 6.0 Ur Specific [place] 1.010 Urine Protein 30 H Urine Glucose [...] Chest CT correlation is recommended. Reading Location: [facility] Chest x-ray, 2 views, AP and lateral, interpreted by myself shows no acute abnormality. Normal cardiac silhouette. Normal lung coker. Chronic changes. Rhythm Strip Rhythm Strip: Sinus Rhythm Rate: 80 Ectopy: None EKG Initial EKG: Attestation: I personally reviewed and interpreted this EKG as follows: Interpretation: Sinus Rhythm and No Acute Injury Pattern Comments: Normal sinus rhythm rate 80 no acute signs of [place] nor ischemia. Discharge Plan Triage Chief Complaint: [...] 0RF bisacodyl 10 mg Suppository 10 mg ID .PRN X 1 PRN (Reason: Constipation) Qty: [...] MD [Primary Care Provider] - Print Language: Guyanese Disposition Disposition: Acute Care Hospital [facility] What to do if you have Problems For any increased pain, shortness of breath, bleeding, nausea or vomiting, chestpain, or any unexpected problems, contact your Primary Care Provider. Call [facility] ([phone]) or report to the closest Emergency Room. Call 911 if necessary. 07/07/25 4337 <Electronically signed by Shaji Rosales MD> Cosigner Signature (if applicable): CC: Dr. Ez Solitario MD ~ Signed [facility] Work Phone: 1(164) 910-504608-20-2025 Discharge summary [facility] Medical Records Department [address] [place] [address] Emergency Department Summary 07/07/25 MR#: [id number] Acct: [id number] Name: PRASHANT SHEFFIELD Rep #:[id number] 1 : 1950 75 From: Shaji Rosales MD PCP: Dr. Ez Solitario MD Status:ADM ROXIE Location: MS3 AV515-5 HPI History of Present Illness Chief Complaint: [...] bisacodyl 10 mg rectal suppository 10 mg ID .PRN X 1 P RN Constipation 08/20/23 [...] Time codeine AdvReac CRAZY Verified 09/03/23 13:40 DREAMS DOES NOT LIKE TO TAKE IT Family History Father , at 51 YOA due to [place] CAD (coronary artery disease) Mother , she [...] she does have equal and symmetrical 4-5 german teacher strength. She really cannot lift either leg [...] % (Auto) 66.1 Lymph % (Auto) 22.8 [place] % (Auto) 8.3 Eos % (Auto) 1.5 [...] Clarity Clear Urine pH 6.0 Ur Specific [place] 1.010 Urine Protein 30 H Urine Glucose [...] CT correlation is recommended. Reading Location: [facility] Chest x-ray, 2 views, AP and lateral, interpreted by myself shows no acute abnormality. Normal cardiac silhouette. Normal lung coker. Chronic changes. Rhythm Strip Rhythm Strip: Sinus Rhythm Rate: 80 Ectopy: None EKG Initial EKG: Attestation: I personally reviewed and interpreted this EKG as follows: Interpretation: Sinus Rhythm and No Acute Injury Pattern Comments: Normal sinus rhythm rate 80 no acute signs of [place] nor ischemia. Discharge Plan Triage Chief Complaint: [...] 0RF bisacodyl 10 mg Suppository 10 mg ID .PRN X 1 PRN (Reason: Constipation) Qty: [...] MD [Primary Care Provider] - Print Language: Guyanese Disposition Disposition: Acute Care Hospital [facility] What to do if you have Problems For any increased pain, shortness of breath, bleeding, nausea or vomiting, chestpain, or any unexpected problems, contact your Primary Care Provider. Call [facility] ([phone]) or report tothe closest Emergency Room. Call 911 if necessary. 07/07/25 6424 Cosigner Signature (if applicable): CC: Dr. Ez Solitario MD ~ Signed [facility]08-20-2025 History and physical note Author Davin Kittoe [facility] Note Date/Time July 07, 2025 12 :23pm [facility] Medical Records Department [address] [place] [address] H&P Exam - Hospitalist 07/07/25 1158 MR#: [id number] Acct: [id number] Name: PRASHANT SHEFFIELD Rep #:[id number] : 1950 75 From: Davin Kirkland MD PCP: Dr. Ez Solitario MD Status:ADM ROXIE Location: [facility] CM215-3 HPI - General General Date of Admission: 07/07/25 Date of Service: 07/07/25 Chief Complaint: Generalized weakness HPI Narrative PRAHSANT SHEFFIELD, is a 75 F with past medical history significant for Parkinson's disease resident [facility] who was brought to the emergency department with generalized weakness. Per patient she recently had medication adjustment mainly for anxiety since then she has developed progressive generalized weakness. Patient also complains of muscle aches and difficulty with both handgrips. Workup in the ED came back unremarkable. Patient admittedto regular nursing floor for subsequent eval with consultation placed to PT/OT/SW [facility] Medical History Dysphagia History of 1 Parkinson [...] bisacodyl 10 mg rectal suppository 10 mg ID .PRN X 1 P RN Constipation 08/20/23 [...] Time codeine AdvReac CRAZY Verified 09/03/23 13:40 DREAMS DOES NOT LIKE TO TAKE IT Family History Father , at 51 YOA due to [place] CAD (coronary artery disease) Mother , she [...] Clarity Clear, Urine pH 6.0, Ur Specific [place] 1.010, Urine Protein 30 H, Urine Glucose [...] % (Auto) 66.1, Lymph % (Auto) 22.8, [place] % (Auto) 8.3, Eos % (Auto) 1.5, [...] medical history significant for Parkinson's disease resident [facility] who was brought to the [...] nursing floor requested for PT/OT eval and child welfare social worker to assist with discharge planning. [...] Multi Select Codes Visit Charges Visit Charges: 46843 Init Hosp L2 Hospitalists' Procedures Procedures: 61598 Advncd Care Plan 30 Min 07/07/25 1223 <Electronically signed by Davin Kirkland MD> Cosigner Signature (if applicable): CC: Dr. Davin Kirkland MD; Dr. Ez Solitario MD~ Signed [facility] Work Phone: 1(449) 453-441008-20-2025 NoteHNO ID: [id number] Author: LESLYE MILLER MA Service: ? Author Type: Environmental Department Manager Type: Progress Notes Filed: 07/09/2025 08:29 Note Text: Scan on 07/07/2025 4:07 PM by ProviderJovany PA-C: [facility] Scan on 07/07/2025 12:30 PM by Jovany Shepard PA-C: Hospitalist Consultation [facility] Scan on 07/09/2025 7:20 AM by Jovany Shepard PA-C: [facility] Discharge Summary [facility]08-20-2025 History of Present illness Narrative* Leslye Miller MA - 07/07/2025 2:05 PM EDT Scan on 07/07/2025 12:30 PM by Provider, External, CATHERINE: Hospitalist Consultation [facility] Evaluation note* Diagnosis Onset Date Resolution Status Admit Date Generalized muscle weakness acute July 07, 2025 11:49am History of Parkinson disease acute July 07, 2025 11:49am Unable to walk acute June 11:49am [facility] Work Phone: 1(450) 540-559008-20-2025 History and physical note [facility] Medical Records Department [address] [place] [address] H&P Exam - Hospitalist 07/07/25 1158 MR#: [id number] Acct: [id number] Name: PRASHANT SHEFFIELD Rep #:[id number] : 1950 75 From: Davin Kirkland MD PCP: Dr. Ez Solitario MD Status:ADM ROXIE [facility] - General General Date of Admission: 07/07/25 Date of Service: 07/07/25 Chief Complaint: Generalized weakness HPI Narrative PRASHANT SHEFFIELD, is a 75 F with past medical history significant for Parkinson's disease resident [facility] who was brought to the emergency department with generalized weakness. Per patient she recently had medication adjustment mainly for anxiety since then she has developed progressive generalized weakness. Patient also complains of muscle aches and difficulty with both handgrips. Workup in the ED came back unremarkable. Patient admittedto regular nursing floor for subsequent evalwith consultation placed to PT/OT/SW [facility] Medical History Dysphagia History of 1 Parkinson [...] bisacodyl 10 mg rectal suppository 10 mg ID .PRN X 1 P RN Constipation 08/20/23 [...] Time codeine AdvReac ANALIY Verified 09/03/23 13:40 DREAMS DOES NOT LIKE TO TAKE IT Family History Father , at 51 YOA due to [place] CAD (coronary artery disease) Mother , she [...] Clarity Clear, Urine pH 6.0, Ur Specific [place] 1.010, Urine Protein 30 H, Urine Glucose [...] Neut% (Auto) 66.1, Lymph % (Auto) 22.8, [place] % (Auto) 8.3, Eos % (Auto) 1.5, [...] Chest CT correlation is recommended. Reading [facility] Assessment & Plan Assessment/Plan (1) Generalized muscle weakness: PLAN: Plan PRASHANT SHEFFIELD, is a 75 F with past medical history significant for Parkinson's disease resident [facility] who was brought to the [...] nursing floor requested for PT/OT eval and child welfare social worker to assist with discharge planning. [...] Multi Select Codes Visit Charges Visit Charges: 48216 Init Hosp L2 Hospitalists' Procedures Procedures: 42527 Advncd Care Plan 30 Min 07/07/25 1223 Cosigner Signature (if applicable): CC: Dr. Davin Kirkland MD; Dr. Ez Solitario MD~ Signed [facility]08-20-2025 Radiology Diagnostic study note [facility] [place] [address] Chest PA and Lateral MR#: [id number] Acct: [id number] Name: PRASHANT SHEFFIELD Rep #: [id number] : 1950 F 75 From: Consuelo Gray MD PCP: Dr. Ez Solitario MD Status: REG ER Study:Chest PA and Lateral Date of Exam: 07/07/25 Exam# [id number] Ordering Dr: Dinorah Rosales MD PROCEDURE: CHEST [...] Chest CT correlation is recommended. Reading [facility] CC: Dr. Shaji Rosales MD; Dr. Ez Solitario MD ~ Associate Attorney: Signed [facility]08-14-2025 NoteHNO ID: [id number] Author: LESLYE MILLER MA Service: ? Author Type: Environmental Department Manager Type: Progress Notes Filed: 07/01/2025 11:06 Note Text: Scan on 07/01/2025 8:32 AM by Jovany Shepard PA-C: Consultation - Neurology [facility]08-14-2025 History of Present illness Narrative* Leslye Miller MA - 07/01/2025 11:05 AM EDT Scan on 07/01/2025 8:32 AM by Jovany Shepard PA-C: Consultation - Neurology documented [facility] NoteHNO ID: [id number] Author: PATTI TOMAS MA Service: ? Author Type: Environmental Department Manager Type: Progress Notes Filed: 05/05/2025 15:47 Note Text: Scan on 05/04/2025 10:48 AM by ProviderJovany PA-C: Consultation - Neurology [facility]06-18-2025 History of Present illness Narrative* Patti Tomas MA - 05/05/2025 3:47 PM EDT Scan on 05/04/2025 10:48 AM by Jovany Shepard PA-C: Consultation - Neurology Patti Tomas MA documented in this encounterA[facility]04-30-2025 NoteHNO ID: [id number] Author: PATTI TOMAS MA Service: ? Author Type: Environmental Department Manager Type: Progress Notes Filed: 03/17/2025 11:15 Note Text: Scan on 03/10/2025 11:44 AM by Jovany Shepard PA-C: Consultation - PT/OT/Speech [facility]04-30-2025 History of Present illness Narrative* Patti Tomas MA - 03/17/2025 11:15 AM EDT Scan on 03/10/2025 11:44 AM by Jovany Shepard PA-C: Consultation - PT/OT/Speech Patti Tomas MA documented in this encounterA[facility]04-21-2025 NoteHNO ID: [id number] Author: MARY ORTIZ APRN.CNP Service: ? Author [...] other diseases classified elsewhere, mild, with anxiety ([facility]) 07/08/2024 Dry mouth 03/26/2016 Elevated hemoglobin A1c [...] disease (HCC) 02/07/[address] Man in [facility] Stage 3a chronic kidney disease (HCC) [...] Take 1 tablet by mouth once daily. iikvemk-dktfzgsue-untvxre D3 (CALCIUM 500+D) 500 mg-5 mcg (200 [...] two times a day. Per Neurology at [facility] Melatonin 5 mg cap Take 2 capsules by mouth daily at bedtime. cyanocobalamin (VITAMIN B-12) 1,000 mcg tab Take 1 tablet by mouth once daily. citalopram hydrobromide (CELEXA) 10 mg tablet Take 1 tablet by mouth once daily. Take with 20 mg dose for total of 30mg daily, getting from Neurology at [facility] citalopram (CELEXA) 20 mg tablet Take 1 tablet by mouth daily at bedtime. Take with 10mg dose for total of 30mg daily. Per neurology at [facility] estradiol (ESTRACE) 0.01 % (0.1 mg/gram) vaginal [...] excessive warmth surr (more content not included)... [facility]04-21-2025 History of Present illness Narrative* Podlogar, GENIE Hernandez.HYDROELECTRIC PRODUCTION TECHNICIAN - 03/08/2025 2:03 PM EDT 03/08/2025 Patient [...] disease (HCC) 02/07/[address] Man in [facility] Stage 3a chronic kidney disease (HCC) [...] Take 1 tablet by mouth once daily. tbokxyt-mehlzeoxh-fnnflwy D3 (CALCIUM 500+D) 500 mg-5 mcg (200 [...] of 30mg daily, getting from Neurology at [facility] citalopram (CELEXA) 20 mg tablet Take 1 tablet by mouth daily at bedtime. Take with 10mg dose for total of 30mg daily. Per neurology at [facility] estradiol (ESTRACE) 0.01 % (0.1 mg/gram) vaginal [...] pedal pulse with cap refill WNL. Covid-19 Vaccine( season) due on 02/18/2025 RSV Vaccine(1 - [...] ER with red flag symptoms Mary Ortiz APRN.HYDROELECTRIC PRODUCTION TECHNICIAN Prescription instructions reviewed with patient as applicable. [...] Level: 3 - Low documented in this encounterA[facility]04-[facility] Telephone encounter Note * Telephone Encounter - Gardenia Goss LPN - 02/26/2025 9:03 AM EDT Patient returned call and went over results, notes from Radha Bryant HAND SHOE CUTTER with understanding. [facility]04-11-2025 Miscellaneous Notes* Telephone Encounter - Gardenia Goss LPN - 02/26/2025 9:03 AM EDT Patient returned call and went over results, notes from Radha Bryant HAND SHOE CUTTER with understanding. * Telephone Encounter - Allie Chung MA - 02/26/2025 9:00 AM EDT Left message for patient to return call to office Allie Chung MA * Telephone Encounter - Radha Bryant APRN.CNP - 02/26/2025 8:54 AM EDT Please let patient know her mammogram is negative. Patient should continue with annual screenings. documented in this encounterA[facility]04-11-2025 Telephone encounter Note * Telephone Encounter - Allie Chung MA - 02/26/2025 9:00 AM EDT Left message for patient to return call to office Allie Chung MA [facility]04-11-2025 Telephone encounter Note* Telephone Encounter - Radha Bryant APRN.CNP - 02/26/2025 8:54 AM EDT Please let patient know her mammogram is negative. Patient should continue with annual screenings. [facility]04-08-2025 Telephone encounter Note* Telephone Encounter - Louise Pemberton RN - 02/23/2025 1:28 PM EDT Patient notified of results and provider's instructions. Patient verbalizes understanding. Louise Pemberton RN [facility]04-08-2025 Miscellaneous Notes* Telephone Encounter - Louise Pemberton RN - 02/23/2025 1:28 PM EDT Patient notified of results and provider's instructions. Patient verbalizes understanding. Louise Pemberton RN * Telephone Encounter - Allie Chung MA - 02/23/2025 1:13 PM EDT Left message for patient to return call to office Allie Chung MA * Telephone Encounter - Radha Bryant APRN.CNP - 02/23/2025 10:17 AM EDT Please let patient know her DXA scan shows osteopenia. Continue calcium and vit d supplementation. documented in this encounterA[facility]04-08-2025 Telephone encounter Note * Telephone Encounter - Allie Chung MA - 02/23/2025 1:13 PM EDT Left message for patient to return call to office Allie Chung MA [facility]04-08-2025 Telephone encounter Note* Telephone Encounter - Radha Bryant APRN.CNP - 02/23/2025 10:17 AM EDT Please let patient know her DXA scan shows osteopenia. Continue calcium and vit d supplementation. [facility]04-07-2025 History of Present illness Narrative* Janie [...] PATIENT PRESENTS WITH AN IMPLANTABLE OR ATTACHED MACHINE TOOL DESIGNER: No RADIOLOGY DEPARTMENT: Mammography PERIPHERAL IV DATA: Not applicable SIGNED BY: Harsha Colbert February 22, 2025 12:53 PM documented in this encounterAultman [facility]04-07-2025 NoteHNO ID: [id number] Author: JANIE TABOR Mammo Tech Service: ? Author Type: Agricultural Economics Teacher Type: Progress Notes Filed: 02/22/2025 12:53 Note [...] PATIENT PRESENTS WITH AN IMPLANTABLE OR ATTACHED MACHINE TOOL DESIGNER: No RADIOLOGY DEPARTMENT: Mammography PERIPHERAL IV DATA: Not applicable SIGNED BY: Harsha Colbert February 22, 2025 12:53 [facility]04-07-2025 History of Present illness Narrative* Mulu Ward [...] PATIENT PRESENTS WITH AN IMPLANTABLE OR ATTACHED MACHINE TOOL DESIGNER: No RADIOLOGY DEPARTMENT: Bone Density PERIPHERAL IV DATA: Not applicable SIGNED BY: RT Manny(Tre) February 22, 2025 12:32 PM documented in this encounterAultman [facility]04-07-2025 NoteHNO ID: [id number] Author: MULU WARD RT(R) Service: ? Author [...] PATIENT PRESENTS WITH AN IMPLANTABLE OR ATTACHED MACHINE TOOL DESIGNER: No RADIOLOGY DEPARTMENT: Bone Density PERIPHERAL IV DATA: Not applicable SIGNED BY: RT Manny(R) February 22, 2025 12:32 [facility]03-20-2025 Note* Addendum Note - Ez Solitario MD - 02/04/2025 8:18 AM EDTAddended by: EZ SOLITARIO on: 02/04/2025 08:18 AM Modules accepted: Orders [facility]03-20-2025 Miscellaneous Notes* Addendum Note - Ez Solitario MD - 02/04/2025 8:18 AM EDTAddended by: EZ SOLITARIO on: 02/04/2025 08:18 AM Modules accepted: Orders documented in this encounterAultman [facility]03-20-2025 NoteHNO ID: [id number] Author: BERLIN URRUTIA LPN Service: ? Author Type: LICENSED NURSE Type: Progress Notes Filed: 02/04/2025 08:07 Note Text: Scan on 02/03/2025 2:10 PM by ProviderJovany PA-C: Consultation - Neurology [facility]03-20-2025 History of Present illness Narrative* Berlin Urrutia LPN - 02/04/2025 8:07 AM EDT Scan on 02/03/2025 2:10 PM by Jovany Shepard PA-C: Consultation - Neurology documented in this encounterAultman [facility] Hospital02-26-2025 Telephone encounter Note * Telephone Encounter - Louise Pemberton RN - 01/13/2025 10:36 AM EST Patient's sister notified of results and provider's instructions. Patient's sister verbalizes understanding. Louise Pemberton RN [facility]02-26-2025 Miscellaneous Notes* Telephone Encounter - Louise [...] atb. Lauren Camacho PA-C documented in this encounterAultman Alliance [facility] Hospital02-26-2025 Telephone encounter Note * Telephone Encounter - Berlin Urrutia LPN - 01/13/2025 10:26 AM EST Left message for pt/pt's sister Moo to contact office for results and instructions. [place] Urrutia LPN [facility]02-26-2025 Telephone encounter Note* Telephone Encounter - Lauren Camacho PA-C - 01/13/2025 10:01 AM EST Urine confirms infection. Will send in atb. Lauren Camacho PA-C [facility]02-24-2025 Instructions* Patient Instructions* Lauren Camacho PA-C [...] review all the medicines you take, even ggof-lqx-jjsaimo medicines. As you get older, the way [...] your usual activities immediately. documented in this encounterAultman Alliance [facility] Hospital02-24-2025 NoteHNO ID: [id number] Author: LAUREN CAMACHO PA-C Service: ? Author Type: Physician Clinical Resource Director Type: Progress Notes Filed: 01/21/2025 08:26 Note [...] ?F) Resp 16 Ht 154.5 cm (5' 0.83) Wt 63 kg (139 lb) SpO2 100% [...] Planning on going to assisted living at [facility]. Past medical history, appointments, medications, allergies reviewed. [...] disease (HCC) 02/07/[address] Man in [facility] Stage 3a chronic kidney disease (HCC) [...] syndrome with her neuro (more content not included)...[facility]02-24-20[facility] History of Present illness Narrative* Lauren Camacho [...] F) Resp 16 Ht 154.5 cm (5' 0.83) Wt 63 kg (139 lb) SpO2 100% [...] Planning on going to assisted living at [facility]. Past medical history, appointments, medications, allergies reviewed. [...] disease (HCC) 02/07/[address] Man in [facility] Stage 3a chronic kidney disease (HCC) [...] syndrome with her neuro meds. Codeine Intolerance crazy dreams does not like to take it Current [...] two times a day. Per Neurology at [facility] Melatonin 5 mg cap Take 2 capsules by mouth daily at bedtime. cyanocobalamin (VITAMIN B-12) 1,000 mcg tab Take 1 tablet by mouth once daily. citalopram hydrobromide (CELEXA) 10 mg tablet Take 1 tablet by mouth once daily. Take with 20 mg dose for total of 30mg daily, getting from Neurology at [facility] citalopram (CELEXA) 20 mg tablet Take 1 tablet by mouth daily at bedtime. Take with 10mg dose for total of 30mg daily. Per neurology at [facility] estradiol (ESTRACE) 0.01 % (0.1 mg/gram) vaginal [...] F) Resp 16 Ht 154.5 cm (5' 0.83) Wt 63 kg (139 lb) SpO2 100% [...] Abs Lymph 1.00 - 4.00 k/uL 2.25 [place]% % 8.4 Abs [place] <0.87 k/uL 0.57 Eosin% % 4.0 Abs Eosin <0.46 k/uL 0.27 Baso% % 0.7 Abs Baso <0.11 k/uL 0.05 Immature Gran % % 0.3 IMMATURE GRANS (ABS) <0.10 k/uL <0.03 NRBC /100 WBC 0.0 Absolute nRBC <0.01 k/uL <0.01 DTYPE Auto Color Yellow Yellow Clarity Clear Clear Glucose, Urine Negative Negative Bilirubin, Urine Negative Negative Ketones, Urine Negative Negative Specific [place], Ur 1.005 - 1.030 1.017 Hemoglobin/Blood,Ur Negative [...] which included preparing to see the patient, quce-gm-jjih patient care, completing clinical documentation, obtaining and/or reviewing separately obtained history, performing a medically appropriate examination, counseling and educating the pat ient/family/caregiver, ordering medications, tests, or procedures, and communicating results to thepatient/family/caregiver. documented in this encounterAult[facility]01-23-2025 Telephone encounter Note * Telephone Encounter [...] Urrutia LPN December 10, 2024 9:46 AM [facility]01-23-2025 Miscellaneous Notes* Telephone Encounter - Berlin [...] 10, 2024 9:08 AM documented in this encounterAultman Alliance [facility] Hospital01-23-2025 Telephone encounter Note * Telephone Encounter [...] Maryana Jacob December 10, 2024 9:08 AM [facility]01-07-2025 NoteHNO ID: [id number] Author: BERLIN URRUTIA LPN Service: ? Author Type: LICENSED NURSE Type: Progress Notes Filed: 11/24/2024 13:44 Note Text: Scan on 11/24/2024 10:36 AM by Provider, External, PA-C: Consultation - PT/OT/SpeechAdena Health System01-07-2025 History of Present illness Narrative* Berlin Urrutia LPN - 11/24/2024 1:44 PM EST Scan on 11/24/2024 10:36 AM by ProviderJovany PA-C: Consultation - PT/OT/Speech documented in this encounterAultman Alliance [facility] Hospital12-10-2024 Note* Addendum Note - Ez Solitario MD - 10/27/2024 7:56 PM ESTAddended by: EZ SOLITARIO on: 10/27/2024 07:56 PM Modules accepted: Orders [facility]12-10-2024 Miscellaneous Notes* Addendum Note - Ez Solitario MD - 10/27/2024 7:56 PM ESTAddended by: EZ SOLITARIO on: 10/27/2024 07:56 PM Modules accepted: Orders documented in this encounterAultman Alliance [facility] Hospital12-10-2024 NoteHNO ID: [id number] Author: BERLIN URRUTIA LPN Service: ? Author Type: LICENSED NURSE Type: Progress Notes Filed: 10/27/2024 14:46 Note Text: Scan on 10/27/2024 2:32 PM by ProviderJovany PA-C: Consultation - [facility]rologyAden[facility] System12-10-2024 History of Present illness Narrative* Berlin Urrutia LPN - 10/27/2024 2:45 PM EST Scan on 10/27/2024 2:32 PM by Jovany Shepard PA-C: Consultation - Neurology documented in this encounterAultman Alliance [facility] Hospital11-27-2024 NoteHNO ID: [id number] Author: MEÑO PHILLIP PT Service: ? Author Type: Physical Therapist Type: Progress Notes Filed: 10/14/2024 13:19 Note Text: 10/14/2024 [facility] PHYSICAL THERAPY DISCONTINUANCE [...] scheduled additional follow-up appointments. Meño Phillip, [facility]11-13-2024 NotePatient Outreach (INTMMN) PRASHANT SHEFFIELD ([id number]) 1950 F Date Time Provider Department 09/30/24 EZ SOLITARIO INTMMLawrence During your visit today, we recorded the following information about you: Allergies As of Date: 09/30/2024 Noted Allergy Reaction BETADINE (POVIDONE-IODINE) 07/09/2017 2 - Rash BUSPAR (BUSPIRONE) 09/25/2023 14 - Other: See Comments Comments: Caused anxiety and shaking: may of been serotonin syndrome with her neuro meds. CODEINE 02/07/2016 5 - Intolerance Comments: crazy dreams does not like to take it Date Reviewed: 08/20/2024 Reviewed by: Allie Chung MA - Fully Assessed Visit Diagnosis:Encounter for screening mammogram for breast cancer [Z12.31] Order(s):[facility] SCREENING W GERMAN [[id number]] Order #: [id number] FUTURE Prescriptions as of 10/05/2024 - folic [...] by mouth once daily. Per Neurology at [facility] - simvastatin (ZOCOR) 20 mg tablet Take [...] two times a day. Per Neurology at [facility] - Melatonin 5 mg cap Take [...] of 30mg daily, getting from Neurology at [facility] - citalopram (CELEXA) 20 mg tablet Take 1 tablet by mouth daily at bedtime. Take with 10mg dose for total of 30mg daily. Per neurology at [facility] - estradiol (ESTRACE) 0.01 % (0.1 mg/gram) [...] [M*09/14/2024 Encounter Status:Closed by BRUCE REYNA on 10/05/24[facility] 09-15-2024 Telephone encounter Note* Telephone Encounter - Ez Solitario MD - 09/15/2024 4:15 PM EDT The following approved medication requests have been transmitted electronically. Requested Prescriptions Signed Prescriptions Disp Refills folic acid 1 mg tablet 90 tablet 3 Sig: Take 1 tablet by mouth once daily. Authorizing Provider: EZ SOLITARIO MD [facility]10-29-2024 Miscellaneous Notes* Telephone Encounter - Ez [...] Thank you. Sonia Lucero. documented in this encounterAultman Alliance [facility] Hospital10-29-2024 Telephone encounter Note * Telephone Encounter [...] 01/11/2025 Please advise. Thank you. Sonia Lucero. [facility] Work Phone: [phone] 300-686210-28-2024 History of Present illness Narrative* Meño Phillip, PT - 09/14/2024 1:00 PM EDT Program_ID:[id number] Access Code: [email or web address] URL: [email or web address] Date: 09-14-2024 Prepared By: Meño Phillip Program [...] increase T-score by a minimum 5 points. [place] in home exercise program. Patient will decrease [...] Planned: 8 Planned Treatment Interventions: Therapeutic exercise (65719), Neuromuscular re- education (04242), Manual therapy (67596), Therapeutic activities (26911), Self- retirement management (36026), Gait Training (34203), Body Mechanics Training, Patient/Family/Caregiver Education PLAN FOR [...] Fall Jul 2023. Was on [facility] till [place]2023. Patient Goals: Alleviate Pain. Functional Limitations: sitting [...] other diseases classified elsewhere, mild, with anxiety ([facility]) 07/08/2024 Dry mouth 03/26/2016 Elevated hemoglobin A1c [...] disease (HCC) 02/07/[address] Man in [facility] Stage 3a chronic kidney disease (HCC) [...] States/Identifies TREATMENT: PT Treatment Interventions: Therapeutic Exercise, Self-Senior Care Management Evaluation Therapeutic Exercise: 1: L SKC: 1x30. (Not on HEP.) 2: *L Piriformis in Hooklying 1x30. 3: *LTR: x10 each. 4: *L Clamshells: [...] therapeutic exercises was facilitated with verbal cuing. Self-Senior Care Management: 1: *Discussed differentials; Education about lumbar [...] 1315 Meño Phillip PT documented in this encounterAultman Alliance [facility] Hospital10-08-2024 Telephone encounter Note * Telephone Encounter - Deirdre Oliva RN - 08/25/2024 4:55 PM EDT Pt returned call and given provider's message below with verbalized understanding. Patient agreeable and will call back to schedule PT. [facility]10-08-2024 Miscellaneous Notes* Telephone Encounter - Deirdre Oliva RN - 08/25/2024 4:55 PM EDT Pt returned call and given provider's message below with verbalized understanding. Patient agreeable and will call back to schedule PT. * Telephone Encounter - Meera Yun MA - 08/25/2024 4:17 PM EDT Message left for pt to call back for results. Meera Yun MA * Telephone Encounter - Radha Bryant APRN.CNP - 08/25/2024 4:06 PM EDT Please let patient know her lumbar spine xr shows disc space loss or narrowing of the disc space. Iwould recommend PT documented in this encounterAultman Alliance [facility] Hospital10-08-2024 Telephone encounter Note * Telephone Encounter - Meera Yun MA - 08/25/2024 4:17 PM EDT Message left for pt to call back for results. Meera Yun MA [facility]10-08-2024 Telephone encounter Note* Telephone Encounter - Radha Bryant APRN.CNP - 08/25/2024 4:06 PM EDT Please let patient know her lumbar spine xr shows disc space loss or narrowing of the disc space. Iwould recommend PT [facility]10-07-2024 Telephone encounter Note* Telephone Encounter - Nikki Hernandez RN - 08/24/2024 10:05 AM EDT Patient calls to check on results of x-rays from last week. Aware that x-rays are still in process and will be contacted once received. Nikki Hernandez RN [facility]10-07-2024 Miscellaneous Notes* Telephone Encounter - Nikki Hernandez RN - 08/24/2024 10:05 AM EDT Patient calls to check on results of x-rays from last week. Aware that x-rays are still in process and will be contacted once received. Nikik Hernandez RN documented in this encounterAultman Alliance Community Hospital10-03-2024 History of Present illness Narrative* Damaris [...] PATIENT PRESENTS WITH AN IMPLANTABLE OR ATTACHED MACHINE TOOL DESIGNER: No RADIOLOGY DEPARTMENT: General X-ray: Exam(s) Completed: Spine X-Ray(s): Lumbar AP / LAT / L5-S1 / OBL Pelvis X-Ray: Pelvis with Hip Left PERIPHERAL IV DATA: Not applicable SIGNED BY: RT Heri(R) August 20, 2024 11:33 AM documented in this encounterAultman Alliance Community Hospital10-03-2024 History of Present illness Narrative* Radha Bryant APRN.HYDROELECTRIC PRODUCTION TECHNICIAN - 08/20/2024 10:55 AM EDT Chief Complaint [...] disease (HCC) 02/07/[address] Man in [facility] Stage 3a chronic kidney disease (HCC) [...] syndrome with her neuro meds. Codeine Intolerance crazy dreams does not like to take it Current [...] by mouth once daily. Per Neurology at [facility] simvastatin (ZOCOR) 20 mg tablet Take 1 [...] two times a day. Per Neurology at [facility] Melatonin 5 mg cap Take 2 [...] of 30mg daily, getting from Neurology at [facility] citalopram (CELEXA) 20 mg tablet Take 1 tablet by mouth daily at bedtime. Take with 10mg dose for total of 30mg daily. Per neurology at [facility] estradiol (ESTRACE) 0.01 % (0.1 mg/gram) vaginal [...] 11/04/2021 Influenza Vaccine(1) due on 07/19/2024 Covid-19 Vaccine(2023- season) due on 07/19/2024 RSV Vaccine(1 - [...] YR, HIGH DOSE, TRIVALENT (FLUZONE HIGH-DOSE) - Strands COVID-19 VACCINE AGE 12+ YR (COMIRNATY) Radha Bryant APRN.CONNIE ' documented in this encounterAultman Alliance [facility] Hospital09-23-2024 Telephone encounter Note * Telephone Encounter [...] Jaclyn Muniz August 10, 2024 8:46 AM [facility]09-23-2024 Miscellaneous Notes* Telephone Encounter - Jaclyn [...] 10, 2024 8:46 AM documented in this encounterAultman Alliance Community Hospital09-20-2024 Telephone encounter Note * Telephone Encounter - Patti Tomas MA - 08/07/2024 4:44 PM EDT Left detailed message for patient,. Letter taken to medical records. Patti Tomas MA [facility]09-20-2024 Miscellaneous Notes* Telephone Encounter - Patti [...] duty d/t Parkinsons. Please phone patient for pickers material handlers: [phone] documented in this encounterAultman Alliance Community Hospital09-20-2024 Telephone encounter Note * Telephone Encounter - Ez Solitario MD - 08/07/2024 4:33 PM EDT Letter ready [facility]09-20-2024 Telephone encounter Note* Telephone Encounter - Patti Tomas MA - 08/07/2024 3:35 PM EDT Letter given to provider to sign. Patti Tomas MA [facility]09-20-2024 Telephone encounter Note* Telephone Encounter - Ez Solitario MD - 08/07/2024 3:12 PM EDT Letter ready [facility]09-20-2024 Telephone encounter Note* Telephone Encounter - Deirdre Oliva RN - 08/07/2024 1:56 PM EDT Patient reports she received a letter today for jury duty, and has 5 days to return to them. Asking if pcp can write a letter excusing her for jury duty d/t Parkinsons. Please phone patient for pickers material handlers: [phone] [facility]09-10-2024 History of Present illness Narrative* [place] Urrutia LPN - 07/28/2024 2:03 PM EDT Scan on 07/28/2024 1:26 PM by Provider, CATHERINE Manzo: Consultation - Neurology documented in this encounterAultman Alliance Community Hospital08-21-2024 Instructions* Patient Instructions* Ez Solitario MD - 07/08/2024 2:08 PM EDT Please bring in copies of your power of microbiology lab technician for health care and living will. If not on any Vit D then have her take 1000 international unit(s) 's a day. If she is getting it then try to have her get 2,000 international unit(s) 's of vit D a day. documented in this encounterAultman Alliance Community Hospital08-21-2024 History of Present illness Narrative* Ez [...] Parkinson's disease Comment: Seeing Dr. Man in [facility] 01/16/2021: Stage 3a chronic kidney disease [...] syndrome with her neuro meds. Codeine Intolerance crazy dreams does not like to take it Current [...] two times a day. Per Neurology at [facility] Melatonin 5 mg cap Take 2 capsules by mouth daily at bedtime. cyanocobalamin (VITAMIN B-12) 1,000 mcg tab Take 1 tablet by mouth once daily. citalopram hydrobromide (CELEXA) 10 mg tablet Take 1 tablet by mouth once daily. Take with 20 mg dose for total of 30mg daily, getting from Neurology at [facility] citalopram (CELEXA) 20 mg tablet Take 1 tablet by mouth daily at bedtime. Take with 10mg dose for total of 30mg daily. Per neurology at [facility] rasagiline (AZILECT) 1 mg tab Take 1 tablet by mouth once daily. Per Neurology at [facility] estradiol (ESTRACE) 0.01 % (0.1 mg/gram) vaginal [...] Lymph 1.00 - 4.00 k/uL 1.98 2.27 [place]% % 9.2 8.5 Abs [place] <0.87 k/uL 0.50 0.63 Eosin% % 3.3 [...] prior Ez Solitario MD documented in this encounterAultman Alliance [facility] Hospital07-29-2024 Telephone encounter Note * Telephone Encounter - Georgia Ramírezan - 06/15/2024 2:08 PM EDT Prescription Refill [...] Jaclyn Muniz June 15, 2024 2:08 PM [facility]07-29-2024 Miscellaneous Notes* Telephone Encounter - Jaclyn [...] 15, 2024 2:08 PM documented in this encounterAultman Alliance Community Hospital06-11-2024 History of Present illness Narrative* Madeline Johns LPN - 04/28/2024 5:58 PM EDT Scan on 04/28/2024 1:38 PM by Provider, CATHERINE Manzo: Consultation - Neurology documented in this encounterAultman Alliance Community Hospital04-01-2024 Miscellaneous Notes* Telephone Encounter - Louise [...] you. Louise Pemberton RN. documented in this encounterAultman Alliance Community Hospital03-11-2024 Miscellaneous Notes* Telephone Encounter - Allie Chung MA - 01/27/2024 8:34 AM EDT Pt notified and verbalized understanding Allie Chung MA * Telephone Encounter - Radha Bryant APRN.CNP - 01/27/2024 8:30 AM EDT Please let patient know their labs are normal. documented in this encounterAultman [facility] Hospital02-08-[facility]24 Instructions* Patient Instructions* Radha Bryant APRN.CNP - 12/26/2023 1:55 PM EST Screening [...] review all the medicines you take, even rgss-jek-bomgpjs medicines. As you get older, the way [...] have certain medical conditions. documented in this encounterAultman [facility] Hospital02-08-2024 History of Present illness Narrative* Radha Bryant APRN.CNP - 12/26/2023 1:52 PM EST Prashant [...] Parkinson's disease 02/07/[address] Man in [facility] Stage 3a chronic kidney disease (HCC) [...] syndrome with her neuro meds. Codeine Intolerance crazy dreams does not like to take it Current [...] two times a day. Per Neurology at [facility] Melatonin 5 mg cap Take 2 [...] of 30mg daily, getting from [facility]rology at [facility] citalopram (CELEXA) 20 mg tablet Take 1 tablet by mouth daily at bedtime. Take with 10mg dose for total of 30mg daily. Per neurology at [facility] rasagiline (AZILECT) 1 mg tab Take 1 tablet by mouth once daily. Per Neurology at [facility] estradiol (ESTRACE) 0.01 % (0.1 mg/gram) vaginal [...] Abs Lymph 1.00 - 4.00 k/uL 1.87 [place]one[place]% % 6.8 Abs [place]one[place] <0.87 k/uL 0.45 Eosin% % 3.3 Abs [...] ICD9: 790.29, ICD10: R73.09 - HGB A1C Radha Bryant APRN.HYDROELECTRIC PRODUCTION TECHNICIAN documented in this encounterAultman Alliance [facility] Hospital12-19-2023 Telephone encounter Note * Telephone Encounter - Haleigh Capone - 11/05/2023 10:37 AM EST Patient called to cancel procedure with Dr. Prince and did not wish to reschedule at this time Haleigh Capone Incising Machine Operator [facility]12-19-2023 Miscellaneous Notes* Telephone Encounter - Haleigh Capone - 11/05/2023 10:37 AM EST Patient called to cancel procedure with Dr. Prince and did not wish to reschedule at this time Haleigh Capone Incising Machine Operator * Telephone Encounter - Haleigh Capone - 10/07/2023 3:55 PM EST 11/28/2023 COLON/EGD ASC documented in this encounterAultman [facility] Hospital11-20-2023 Telephone encounter Note * Telephone Encounter - Haleigh Capone - 10/07/2023 3:55 PM EST 11/28/2023 COLON/EGD ASC [facility]11-20-2023 History of Present illness Narrative* aDren Prince MD - 10/07/2023 3:52 PM EST HISTORY AND PHYSICAL Prashant Perry Sheffield 1950 REFERRING PHYSICIAN: Ez Solitario MD CHIEF COMPLAINT: Consult (Iron deficiency, anemia) HPI: The patient is a 73 year old female referred for endoscopy. Prashant notes no history of colon complaints. Patient was recently admitted to [facility] [place] [facility] in August 01, 2023. She underwent an [...] Parkinson's disease 02/07/[address] Man in [facility] Stage 3a chronic kidney disease (HCC) [...] two times a day. Per Neurology at [facility] nitrofurantoin monohydrate and macrocrystal (MACROBID) 100 mg [...] of 30mg daily, getting from Neurology at [facility] citalopram (CELEXA) 20 mg tablet Take 1 tablet by mouth daily at bedtime. Take with 10mg dose for total of 30mg daily. Per neurology at [facility] rasagiline (AZILECT) 1 mg tab Take 1 tablet by mouth once daily. Per Neurology at [facility] estradiol (ESTRACE) 0.01 % (0.1 mg/gram) vaginal [...] entered by the nurse and reviewed by mi Nursing Notes: Noemy Duron LPN 10/07/2023 3:33 [...] C (98.1 F), height 157.5 cm (5' 2), weight 55.8 kg (123 lb), SpO2 97 [...] My findings have been communicated to Dr. zE Solitario MD via shared medical record. This note will be forwarded to Dr. Ez Solitario MD. Return to Clinic: The patient is instructed to follow-up with me 1 week post operatively. Daren Prince III, MD documented in this encounterAultman Alliance [facility] Hospital11-20-2023 Instructions* Patient Instructions* Daren Prince MD [...] If you do not have a responsible bobcat driver/labor (family member or friend) withyou to take you home, your exam cannot be done with sedation and will be cancelled. Please bring a list of all of your current medications, including any Nbrm-qss-Jecnuql medications with you. Medications If you take [...] your exam. 2 10/2019 documented in this encounterAultman Alliance [facility] Hospital11-20-2023 Nurse Note* Noemy DuronKENIA - 10/07/2023 3:29 PM EST REVIEW OF [...] 2016 Noemy Duron LPN documented in this encounterAultman Alliance [facility] Hospital11-18-2023 Miscellaneous Notes* Telephone Encounter - [place] [...] surgery for further w/u documented in this encounterAultman Alliance Community Hospital11-14-2023 History of Present illness Narrative* Ez Solitario MD - 10/01/2023 11:01 PM EST Patient's home health 485 form / care plan for certification period 09/12/2023 to 10/31/2023 reviewed and signed. Relevant medical records were reviewed. 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 documented as of this encounter (statuses as of 02/17/2024) [facility]11-08-20[facility] History of Present illness Narrative* Ez Solitario MD - 09/25/2023 11:40 AM EST Chief Complaint Patient presents with: Follow Up HPI Prashant Sheffield is a 73 year old female who presents here today for D/C from half-way/follow up on Anxiety and Depression. Patient was seen by Dr. Quinones on 09/13/2023 for increased anxiety and depression and is here today for a follow up. Patient did resident of [facility] for 20 days after S/p open [...] Parkinson's disease 02/07/[address] Man in [facility] Stage 3a chronic kidney disease (HCC) [...] Allergen Reactions Betadine [Povidone-* Rash Codeine Intolerance crazy dreams does not like to take it Current [...] of 30mg daily, getting from Neurology at [facility] citalopram (CELEXA) 20 mg tablet Take 1 tablet by mouth daily at bedtime. Take with 10mg dose for total of 30mg daily. Per neurology at [facility] benztropine (COGENTIN) 2 mg tablet Take 1 tablet by mouth twice daily. Per Neurology at [facility] (Patient taking differently: Take 1 mg by mouth two times a day. Per Neurology at [facility]) rasagiline (AZILECT) 1 mg tab Take 1 tablet by mouth once daily. Per Neurology at [facility] estradiol (ESTRACE) 0.01 % (0.1 mg/gram) vaginal [...] Vaccine(1) due on 07/19/2023 Covid-19 Vaccine(4 - 2022- season) due on 07/19/2023 DTaP,Tdap,Td [...] ICD9: 623.5, ICD10: N89.8 - CONSULT TO PYROTECHNIST Check - URINALYSIS, WITH MICROSCOPIC - URINE CULTURE 3. Encounter for immunization - ICD9: V03.89, ICD10: Z23 - INFLUENZA VACCINE, PRSV FREE, AGE 65+ YR, HIGH DOSE, QUADRIVALENT (FLUZONE HIGH-DOSE) - Strands COVID-19 VACCINE ( SEASON) AGE 12+ YR [...] which included preparing to see the patient, jxxp-fw-apco patient care, completing clinical documentation, performing a medically appropriate examination, counseling and educating the patient/family/caregiver and ordering medications, tests, or procedures. Patient was asked at end of visit if they had any questions or input regarding the plan of care we had discussed. Ez Solitario MD documented in this encounterAultman Alliance [facility] Hospital11-03-2023 Miscellaneous Notes* Telephone Encounter - Sury Harding LPN - 09/20/2023 3:04 PM EDT Addended note faxed to [facility] at [phone]. Sury Harding LPN * Telephone Encounter - [...] was on 09/13/[address] Quinones stated: 6. Mobility impaired - ICD9: 799.89, ICD10: Z74.09 F/u with home PT as scheduled. Use walker for ambulation. Discussed risks of falls., as well as, Ambulating with walker mostly. Sister helps her up and down the stairs and with ADLs. Has not had any falls since she was admitted.. She said it would need to be addended to say, Pt requires wheelchair walker or cane is not sufficient. Once changes have been made please fax to # [phone]. documented in this encounterAultman Alliance [facility] Hospital10-30-2023 Miscellaneous Notes* Telephone Encounter - Meera [...] was started on medication in July at [facility]. Patient doeshave appointment scheduled with provider on 09/25. Patient saw Dr. Quinones on 09/13. Please review and advise, Louise Pemberton RN documented in this encounterAultman Alliance [facility] Hospital10-27-2023 History of Present illness Narrative* Alonso Quinones MD - 09/13/2023 2:48 PM EDT Chief Complaint Patient presents with: Anxiety Follow Up: Discharge from [facility] Prashant Sheffield is a 73 year old female who presents here today for Above Complaints. Accompanied today by her sister Moo whom she is living with from now on. Patient resident of [facility] for 20 days after S/p open [...] 16 16 LEIGHTON-7 Score 16 16 09/13/2023 6927 Last Filed Value PHQ-9 Little interest or [...] Parkinson's disease 02/07/[address] Man in [facility] Stage 3a chronic kidney disease (HCC) [...] Allergen Reactions Betadine [Povidone-* Rash Codeine Intolerance crazy dreams does not like to take it Current [...] total of 30mg daily. Per neurology at [facility] benztropine (COGENTIN) 2 mg tablet Take 1 tablet by mouth twice daily. Per Neurology at [facility] (Patient taking differently: Take 1 mg by mouth two times a day. Per Neurology at [facility]) rasagiline (AZILECT) 1 mg tab Take 1 tablet by mouth once daily. Per Neurology at [facility] multivitamin tablet Take 1 tablet by mouth [...] of 30mg daily, getting from Neurology at [facility] (Patient not taking: Reported on 09/13/2023) estradiol [...] which included preparing to see the patient, aeza-mu-sdrv patient care, completing clinical documentation, obtaining and/or reviewing separately obtained history, performing a medically appropriate examination, counseling and educating the pat ient/family/caregiver, and ordering medications, tests, or procedures. Alonso Quinones MD documented in this encounterAultman Alliance Community Hospital10-24-2023 Miscellaneous Notes* Telephone Encounter - Deirdre Oliva RN - 09/10/2023 12:40 PM EDT Phoned Ann, and given provider's message below with verbalized understanding. * Telephone Encounter - Ez Solitario MD - 09/10/2023 10:48 AM EDT Omer Juarez know I will sign the HHC orders but not a F2f since this should have been signed by the provider who ordered the HHC. * Telephone Encounter - Berlin Urrutia LPN - 09/10/2023 10:39 AM EDT Ann form [facility] calling to see if Dr Solitario is willing to sign pt's HH orders. Call Ann at [phone]. Ok to leave . 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 Currently in half-way facility for rehab. Patientis planning to live with sister in 1-2 weeks. Patient's appointment in office was cancelled due to patient being in the hospital. Patient's last medicare wellness was 08/13/2022. Patti Tomas MA documented in this encounterAultman Alliance [facility] Hospital09-20-2023 Miscellaneous Notes* Telephone Encounter - Ez Solitario MD - 08/07/2023 12:52 PM EDT Noted. Will forward messages onto Radha emily CUNHA * Telephone Encounter - Jonathon Huynh LPN - 08/06/2023 4:39 PM EDT ANABEL allen is admitted to [facility]. Records were printed and are on nurse's desk in Radha's office d/t upcoming appt with her on [...] will be reviewed at her appt with Radha on 08/15/2023. documented in this encounterAultman Alliance Community Hospital09-19-2023 Discharge summary Author Rain Bustos [facility] August 06, 2023 12:40pm Note Date/Time August 06, 2023 11:14am [facility] Medical Records Department [address] [place] [address] Transfer to [facility] MR#: [id number] Acct: [id number] Name: PRASHANT SHEFFIELD Rep #:[id number] : 1950 73 From: Rain BOSE PA-C PCP: Dr. Ez Solitario MD Status:ADM IN Certification of patient admission REQUIRED AT TIME OF ADMISSION. I CERTIFY THAT POST-HOSPITAL ECF SERVICES ARE REQUIRED TO BE GIVEN ON AN IN-PATIENT BASIS BECAUSE OF THE ABOVE NAMED PATIENT'S NEED FOR RESIDENTIAL CARE ON A CONTINUING BASIS FOR THE [...] Allergies codeine Adverse Reaction (Verified 08/01/23 16:52) ANJELICA DREAMS DOES NOT LIKE TO TAKE IT Type [...] similar medications, I would recommend transitioning tothese oalg-pna-zwmvilq medicines as soon as possible instead of continued use ofnarcotic pain medication. Follow up ? You should call [facility] soon after surgery, at [phone] option 1 to make a follow up appointment for 14 days after your surgery. Transitional Diet Beverages: ? Soda (cola, diet cola, lemon-fort mcdowell, diet lemon-fort [place], kermit alejandra, diet kermit alejandra) ? Tea (hot or iced) ? Milk (low-fat, 2%, lactose free) ? Coffee ? Juice (without pulp) ? Oral Nutrition supplement Breakfast: ? Hot cereal (oatmeal or cream of wheat) ? Scrambled eggs ? Blueberry muffin ? Cold cereal (no whole grain cereals) ? [place] (white) Lunch or Dinner: Deli Items: Hot Items: [place] sandwich Roast [place] Tuna salad (sandwich or alone) Macaroni & [...] Rehab Unit/Facility Charges/Coding Visit Charges Inpatient E&M: 26364 Disch Hosp (no charge; post-op) (1) UTI (urinary tract infection) Qualifiers: Urinary tract infection type: site unspecified Hematuria presence: without hematuria Qualified Code(s): N39.0 - Urinary tract infection, site not specified 08/06/23 1240 <Electronically signed by Rain BOSE PA-C> Cosigner Signature (if applicable): CC: Dr. Ez Solitario MD ~ [facility] Work Phone: 1(885) 493-434809-19-2023 Progress note Author Ishaan Olson [facility] August 06, 2023 9:07am Note Date/Time August 06, 2023 9:07am [facility] Medical Records Department [address] [place] [address] Progress Note - Surgery 08/06/23 09 MR#: [id number] Acct: [id number] Name: PRASHANT SHEFFIELD Rep #:[id number] : 1950 73 From: Ishaan shah MD PCP: Dr. Ez Solitario MD Status:ADM IN Location: [place] [address] Subjective Subjective Patient was less confused overnight. [...] 23:59 23:59 Intake Total 1218 / 1418 4 / 1834 50 / 50 Output Total 255 / 255 Balance 963 / 1163 1833 / 1833 50 / 50 Lab / Micro Data 08/06/23 06:20 08/06/23 06:20 Labs: Laboratory Results - last 24 hr 08/04/23 06:25: Diff Path Review Reviewed 08/05/23 15:40: Urine Color Yellow, Urine Clarity Sl. Cloudy, Urine pH 5.0, Ur Specific [place] 1.030, Urine Protein 30 H, Urine Glucose [...] % (Auto) 66.5, Lymph % (Auto) 19.4, [place] % (Auto) 10.2 H, Eos % (Auto) [...] change her antibiotics. Ishaan Olson MD Pager: [facility] [address] [place] [address], [address] [place] [address] Office: 08/06/23906 <Electronically signed by Ishaan Olson MD> Cosigner Signature (if applicable): CC: ~ Signed [facility] Work Phone: 1(774) 280-847809-18-2023 Progress note Author Rain Bustos [facility] August 05, 2023 3:00pm Note Date/Time August 05, 2023 8:17am [facility] Medical Records Department [address] [place] [address] Progress Note - Surgery 08/05/23815 MR#: [id number] Acct: [id number] Name: PRASHANT SHEFFIELD Rep #:[id number] : 1950 73 From: Ishaan shah MD PCP: Dr. Ez Solitario MD Status:ADM IN Location: [place] [address] Subjective Subjective Patient had confusion and delirium [...] toa regular diet. Ishaan Olson MD Pager: [facility] [address] [place] [address], [address] [place] [address] Office: 08/05/23 08 <Electronically signed by Ishaan Olson MD> Cosigner Signature (if applicable): CC: ~ Signed ADDENDUM by CATHERINE Bustos on 08/05/23 at 1500 Addendum Awaiting urinalysis. Plan for patient to be discharged tomorrow to [facility] rehab unit. 08/05/23 1500<Electronically signed by Rain BOSE PA-C> Cosigner Signature (if applicable): cc: ~* Signed [facility] Work Phone: 1(747) 598-747609-17-2023 Progress note Author Ishaan Olson [facility] August 04, 2023 9:25am Note Date/Time August 04, 2023 9:25am [facility] Medical Records Department [address] [place] [address] Progress Note - Surgery 08/04/23922 MR#: [id number] Acct: [id number] Name: PRASHANT SHEFFIELD Rep #:[id number] : 1950 73 From: Ishaan shah MD PCP: Dr. Ez Solitario MD Status:ADM IN Location: [place]3 VJ377-2 Subjective Subjective Patient reports she had confusion [...] 71.3 H, Lymph % (Auto) 11.7 L, [place] % (Auto) 13.5 H, Eos % (Auto) [...] a clear liquiddiet. Ishaan Olson MD Pager: [facility] [address] [place] [address], [address] [place] [address] Office: 08/04/23924 <Electronically signed by Ishaan Olson MD> Cosigner Signature (if applicable): CC: ~ Signed [facility] Work Phone: 1(554) 306-444509-16-2023 Progress note Author Ishaan Olson [facility] August 03, 2023 9:00am Note Date/Time August 03, 2023 9:00am [facility] Medical Records Department [address] [place] [address] Progress Note - Surgery 08/03/23858 MR#: [id number] Acct: [id number] Name: PRASHANT SHEFFIELD Rep #:[id number] : 1950 73 From: Ishaan shah MD PCP: Dr. Ez Solitario MD Status:ADM IN Location: [place]3 [id number] Subjective Subjective Patient is not passing flatus [...] her IV fluids. Ishaan Olson MD Pager: [facility] [address] [place] [address], [address] [place] [address] Office: 08/03/23 09 <Electronically signed by Ishaan Olson MD> Cosigner Signature (if applicable): CC: ~ Signed [facility] Work Phone: 1(995) 527-515309-15-2023 Progress note Author Esme Andre [facility] August 02, 2023 12:08pm Note Date/Time August 02, 2023 8:14am [facility] [place] [facility] Medical Records Department [address] [place], [place] [id number] Progress Note - Surgery 08/02/23812 MR#: [id number] Acct: [id number] Name: PRASHANT SHEFFIELD Rep #:[id number] : 1950 73 From: Esme Andre MD PCP: Dr. Ez Solitario MD Status:ADM IN Location: [place] [address] Subjective Subjective Patient has minimal out of [...] 92.2 H, Lymph % (Auto) 5.1 L, [place] % (Auto) 2.1, Eos % (Auto) 0.0, [...] Clarity Clear, Urine pH 5.0, Ur Specific [place] 1.020, Urine Protein 15 H, Urine Glucose [...] 90.4 H, Lymph % (Auto) 4.5 L, [place] % (Auto) 4.6, Eos % (Auto) 0.0, [...] gone next week. Esme Andre M.D. Pager: [phone] [facility] [address] [place] [address], [facility], [address] [place] [address] Office: [phone] 08/02/23 1208 <Electronically signed by Esme Andre MD> Cosigner Signature (if applicable): CC: ~ Signed [facility] Work Phone: 1(212) 561-604909-15-2023 Procedure [facility] 08-02-2023 History of Present illness Narrative* Berlin Urrutia LPN - 08/02/2023 9:52 AM EDT Scan on 08/02/2023 11:07 AM by ProviderJovany PA-C: GI Scan on 08/01/2023 5:55 PM by Provider, CATHERINE Manzo: CT Scan Scan on 08/01/2023 7:10 PM by ProviderJovany PA-C: Miscellaneous Lab Scan on 08/01/2023 7:12 PM by ProviderJovany PA-C: X-ray Scan on 08/01/2023 8:16 PM by ProviderJovany PA-C: Chemistry documented in this encounterAultman Alliance Community Hospital09-14-2023 Discharge summary Author Vladislav Crawford [facility] August 01, 2023 7:18pm Note Date/Time August 01, 2023 5:05pm [facility] Medical Records Department [address] [place] [address] Emergency Department Summary 08/01/23 MR#: [id number] Acct: [id number] Name: PRASHANT SHEFFIELD Rep #:[id number] 1 : 1950 73 From: Vladislav William PCP: Dr. Ez Solitario MD Status:[facility] Location: [address] History of Present Illness Chief Complaint: [...] movements daily versus every other day. PFSH PFSH Medical History Parkinson disease Home Medications [...] Reaction Status Date / Time codeine AdvReac ANJELICA Verified 08/01/23 16:52 DREAMS DOES NOT LIKE TO TAKE IT Social [...] clinician: Surgeon This note was generated with Point.io dictation software. It may contain incorrectwords, spelling, [...] 92.2 H Lymph % (Auto) 5.1 L [place] % (Auto) 2.1 Eos % (Auto) 0.0 [...] obstruction, Vomiting Disposition Disposition: Acute Care Hospital [facility] What to do if you have Problems For any increased pain, shortness of breath, bleeding, nausea or vomiting, chestpain, or any unexpected problems, contact your Primary Care Provider. Call [facility] ([phone]) or report to the closest Emergency Room. Call 911 if necessary. 08/01/231917 <Electronically signed by Vladislav William> Cosigner Signature (if applicable): CC: Dr. Ez Solitario MD ~ Signed [facility] Work Phone: [phone]) 713-108509-14-2023 History and physical note [facility] August 01, 2023 7:05pm Note Date/Time August 01, 2023 6:12pm [facility] Medical Records Department [address] [place] [address] H&P Exam - Surgical 08/01/23 1811 MR#: [id number] Acct: [id number] Name: PRASHANT SHEFFIELD Rep #:[id number] 2 : 1950 73 From: Esme Andre MD PCP: Dr. Ez Solitario MD Status:REG [facility] Location: [place] [address] HPI - General General Date of Service: [...] she fell last Saturday, which was stapled. [facility] Medical History Parkinson disease Home Medications benztropine [...] Date / Time codeine AdvReac ANALIY Verified 08/01/23 16:52 DREAMS DOES NOT LIKE TO TAKE IT Social [...] 92.2 H, Lymph % (Auto) 5.1 L, [place] % (Auto) 2.1, Eos % (Auto) 0.0, [...] intubation and CPR Esme Andre M.D. Pager: [phone] [facility] [address] [place] [address], [address] [place] [address] Office: [phone] 08/01/23 190 <Electronically signed by Esme Andre MD> Cosigner Signature (if applicable): CC: Dr. Ez Solitario MD; Dr. Esme Andre MD~ Signed [facility] Work Phone: [phone]) 747-779509-14-2023 Discharge summary Author Vladislav Crawford [facility] August 01, 2023 7:18pm Note Date/Time August 01, 2023 5:05pm [facility] Medical Records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 documented as of this encounter (statuses as of 09/21/2023) [facility] Rain Bustos [facility] August 06, 2023 1:04pm Note Date/Time August 06, 2023 12:42pm [facility] Medical Records Department [address] [place] [address] Discharge Summary 08/06/23 1241 MR#: [id number] Acct: [id number] Name: PRASHANT SHEFFIELD Rep #:[id number] : 1950 73 From: Rain BOSE PA-C PCP: Dr. Ez Solitario MD Status:ADM IN Location: [place] [address] Providers Date of Admission: 08/01/23 Primary Care [...] on 08/05. Patient was accepted to the [facility] rehab facility for rehabilitationas patient has a [...] Sl. Cloudy, Urine pH 5.0, Ur Specific [place] 1.030, Urine Protein 30 H, Urine Glucose [...] % (Auto) 66.5, Lymph % (Auto) 19.4, [place] % (Auto) 10.2 H, Eos % (Auto) [...] our office to schedule an appointment at [phone]. Meaningful Use Info Meaningful Use Diagnoses (Choose [...] similar medications, I would recommend transitioning tothese hmce-cjk-wjfbnmg medicines as soon as possible instead of continued use ofnarcotic pain medication. Follow up ? You should call [facility] soon after surgery, at [phone] option 1 to make a follow up appointment for 14 days after your surgery. Transitional Diet Beverages: ? Soda (cola, diet cola, lemon-[place], diet lemon-[place], kermit alejandra, diet kermit alejandra) ? Tea (hot or iced) ? Milk (low-fat, 2%, lactose free) ? Coffee ? Juice (without pulp) ? Oral Nutrition supplement Breakfast: ? Hot cereal (oatmeal or cream of wheat) ? Scrambled eggs ? Blueberry muffin ? Cold cereal (no whole grain cereals) ? [place] (white) Lunch or Dinner: Deli Items: Hot Items: [place] sandwich Roast [place] Tuna salad (sandwich or alone) Macaroni & [...] Rehab Unit/Facility Charges/Coding Visit Charges Inpatient E&M: 00766 Disch Hosp (no charge; post-op) 08/06/23 1304 <Electronically signed by Rain BOSE PA-C> Cosigner Signature (if applicable): CC: CATHERINE Bustos; Dr. Ez Solitario MD~ Signed [facility] Work Phone: Evaluation + Plan note No data available for this section [facility] Evaluation note* Diagnosis Essential hypertension- Primary [...] of other medications documented in this encounter [facility] note* Diagnosis Osteopenia, senile Disorder of bone and cartilage, unspecified Primary ovarian failure Other ovarian failure documented in this encounter [facility] noteNo assessment information [facility] Work Phone: Evaluation note* Diagnosis Essential hypertension- [...] of other medications documented in this encounter [facility] note* Diagnosis Essential hypertension- Primary Unspecified essential hypertension Lower extremity edema Edema Hypertensive heart and chronic kidney disease with heart failure and stage 1 through stage 4 chronic kidney disease, or unspecified chronic kidney disease (HCC) documented in this encounter [facility] note* Diagnosis Peripheral edema- Primary Edema Leg swelling Swelling of limb documented in this encounter [facility] note* Diagnosis Medication management- Primary Encounter for long-term (current) use of other medications Essential hypertension Unspecified essential hypertension documented in this encounter [facility] note* Diagnosis Parkinson's disease (HCC)- Primary Paralysis agitans Mobility impaired Other ill-defined conditions Falls frequently Personal history of fall Driving safety issue Other specified personal history presenting hazards to health documented in this encounter [facility] note* Diagnosis Onset Date Resolution Status Cecal volvulus acute [facility] Work Phone: Evaluation note* Diagnosis Onset Date Resolution Status Cecal volvulus acute S/P right hemicolectomy acut e UTI (urinary tract infection) acute [facility] Work Phone: Evaluation note* Diagnosis Anxiety with depression- Primary 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 Other postprocedural status Essential hypertension Unspecified essential hypertension Parkinson's disease with dyskinesia, unspecified whether manifestations fluctuate Mobility impaired Other ill-defined conditions documented in this encounter [facility] note* Diagnosis Cecal volvulus (HCC)- Primary Volvulus Vaginal discharge Leukorrhea, not specified as infective Encounter for immunization Need for other specified prophylactic vaccination against single bacterial disease Anemia, unspecified type Stage 3a chronic kidney disease (HCC) Other general symptoms and signs Anxiety and depression Dysthymic disorder documented in this encounter [facility] note* Diagnosis Parkinson's disease, unspecified whether dyskinesia present, unspecified whether manifestations fluctuate- Primary documented in this encounter [facility] note* Diagnosis Iron deficiency anemia, unspecified iron deficiency anemia type documented in this encounter [facility] note* Diagnosis GERD without esophagitis- Primary Esophageal reflux Iron deficiency anemia, unspecified iron deficiency anemia type documented in this encounter [facility] note* Diagnosis Encounter for screening mammogram for breast cancer documented in this encounter [facility] note* Diagnosis Medicare annual wellness visit, subsequent- [...] with anxiety (HCC) documented in this encounter [facility] note* Diagnosis Osteopenia, senile- Primary Disorder of bone and cartilage, unspecified documented in this encounter [facility] note* Diagnosis Elevated hemoglobin A1c- Primary Other [...] kidney disease (HCC) documented in this encounter [facility] note* Diagnosis Left leg pain- Primary Pain in limb Encounter for immunization Need for other specified prophylactic vaccination against single bacterial disease [facility]* Diagnosis Left leg pain Pain in limb [facility]* Diagnosis Acute midline low back pain without sciatica- Primary documented in this encounter [facility]* Diagnosis Encounter for screening mammogram for breast cancer documented in this encounter [facility]* Diagnosis Medicare annual wellness visit, subsequent- [...] whether dyskinesia present, unspecified whether manifestations fluctuate ([facility]) Urine frequency Urinary frequency Asymptomatic menopause documented in this encounter [facility]* Diagnosis Asymptomatic menopause documented in this encounter [facility]* Diagnosis Encounter for screening mammogram for breast cancer documented in this encounter [facility]* Diagnosis Traumatic ecchymosis of right lower leg, initial encounter- Primary documented in this encounter [facility] note* Diagnosis Onset Date Resolution Status Admit Date Generalized muscle weakness acute July 07, 2025 11:49am History of Parkinson disease acute July 07, 2025 11:49am Unable to walk acute June 11:49am [facility] Work Phone: History and physical note Author Esme Andre [facility] August 01, 2023 7:05pm Note Date/Time August 01, 2023 6:12pm [facility] Medical Records Department [address] [place] [address] H&P Exam - Surgical 08/01/23 1811 MR#: [id number] Acct: [id number] Name: PRASHANT SHEFFIELD Rep #:[id number] : 1950 73 From: Esme Andre MD PCP: Dr. Ez Solitario MD Status:[facility] Location: [place] [address] HPI - General General Date of Service: [...] she fell last Saturday, which was stapled. [facility] Medical History Parkinson disease Home Medications benztropine [...] Date / Time codeine AdvReac CRAZY Verified 08/01/23 16:52 DREAMS DOES NOT LIKE TO TAKE IT Social [...] 92.2 H, Lymph % (Auto) 5.1 L, [place] % (Auto) 2.1, Eos % (Auto) 0.0, [...] intubation and CPR Esme Andre M.D. Pager: [phone] [facility] [address] [place] [address], [facility], [address] [place] [address] Office: [phone] 08/01/23 178 <Electronically signed by Esme Andre MD> Cosigner Signature (if applicable): CC: Dr. Ez Solitario MD; Dr. Esme Andre MD~ Signed [facility] Work Phone: History and physical note Author Davin Kirkland [facility] Note Date/Time July 07, 2025 12 :23pm [facility] Medical Records Department [address] [place] [address] H&P Exam - Hospitalist 07/07/25 1158 MR#: [id number] Acct: [id number] Name: PRASHANT SHEFFIELD Rep #:[id number] : 1950 75 From: Davin Kirkland MD PCP: Dr. Ez Solitario MD Status:ADM [place] Location: [place] [id number] HPI - General General Date of Admission: 07/07/25 Date of Service: 07/07/25 Chief Complaint: Generalized weakness HPI Narrative PRASHANT SHEFFIELD, is a 75 F with past medical history significant for Parkinson's disease resident [facility] who was brought to the emergency department with generalized weakness. Per patient she recently had medication adjustment mainly for anxiety since then she has developed progressive generalized weakness. Patient also complains of muscle aches and difficulty with both handgrips. Workup in the ED came back unremarkable. Patient admittedto regular nursing floor for subsequent eval with consultation placed to PT/OT/SW [facility] Medical History Dysphagia History of 1 Parkinson [...] bisacodyl 10 mg rectal suppository 10 mg ID .PRN X 1 P RN Constipation 08/20/23 [...] Time codeine AdvReac CRAZY Verified 09/03/23 13:40 DREAMS DOES NOT LIKE TO TAKE IT Family History Father , at 51 YOA due to [place] CAD (coronary artery disease) Mother , she [...] Clarity Clear, Urine pH 6.0, Ur Specific [place] 1.010, Urine Protein 30 H, Urine Glucose [...] % (Auto) 66.1, Lymph % (Auto) 22.8, [place] % (Auto) 8.3, Eos % (Auto) 1.5, [...] medical history significant for Parkinson's disease resident [facility] who was brought to the [...] nursing floor requested for PT/OT eval and child welfare social worker to assist with discharge planning. [...] Multi Select Codes Visit Charges Visit Charges: 36705 Init Hosp L2 Hospitalists' Procedures Procedures: 60353 Advncd Care Plan 30 Min 07/07/25 1223 <Electronically signed by Davin Kirkland MD> Cosigner Signature (if applicable): CC: Dr. Davin Kirkland MD; Dr. Ez Solitario MD~ Signed [facility] Work Phone: Hospital Discharge instructions No data available for this section [facility] Progress note No data available for this section [facility] Reason for referral (narrative)* Outpatient Procedure (Routine) - Authorized Specialty Diagnoses / Procedures Referred By Contac t Referred To [facility] Diagnoses Lower extremity edema Procedures ECHO ECHO TTHRC R-T 2D W/WOM-MODE COMPL SPEC&COLR D Radha Bryant, TEA TREE FARMER.HYDROELECTRIC PRODUCTION TECHNICIAN [address] [place] [address] [address] Referral ID Status Reason Start Date Expiration Date Visits Requested Visits Authorized [id number] Authorized Auto-Generat ed Referral 05/02/2023 05/01/2024 1 1 * Outpatient Procedure (Routine) - Closed Specialty Diagnoses / Procedures Referred By Contac t Referred To Contact [facility] Diagnoses Essential hypertension Procedures ECG COMPLETE ECG ROUTINE ECG W/LEAST 12 LDS W/I&R Radha Bryant APRN.CNP [address] [place] [address] [address] Referral ID Status Reason Start Date Expiration Date V isits Requested Visits Authorized [id number] Closed Auto-Generate d Referral 05/02/2023 05/01/2024 1 1 [facility] for referral (narrative)* Outpatient Procedure (Routine) - Authorized Specialty Diagnoses / Procedures Referred By Contac t Referred To Contact [facility] Diagnoses Peripheral edema Leg swelling Procedures US LEG VEIN DVT TESSA VAS LAB DUP-SCAN XTR VEINS COMPLETE BILATERAL STUDY Lauren Camacho PA-C [address] [place] [address] [address] Referral ID Status Reason Start Date Expiration Date Visits Requested Visits Authorized [id number] Authorized Auto-Generat ed Referral 05/24/2023 05/23/2024 1 1 [facility] for referral (narrative)* Outpatient Procedure (Routine) - Authorized Specialty Diagnoses / Procedures [facility] Diagnoses Iron deficiency anemia, unspecified iron deficiency anemia type Procedures COLONOSCOPY DIAGNOSTIC COLONOSCOPY FLX DX W/COLLJ SPEC WHEN PFRMD Niki, Daren P, MD [address] [place] [address] [facility] [address] [place] [address] Referral ID Status Reason Start Date Expiration Date Visits Requested Visits Authorized [id number] Authorized Auto-Generat ed Referral 3 10/07/2024 1 1 * Outpatient Procedure (Routine) - Authorized Specialty Diagnoses / Procedures Referred By Luis Manuelac t Referred To Contact [facility] Diagnoses Iron deficiency anemia, unspecified iron deficiency anemia type Procedures EGD DIAGNOSTIC ESOPHAGOGASTRODUODENOSC OPY TRANSORAL DIAGNOSTIC Daren Prince MD [address] [facility] [place] [address] [facility] [address] [place] [address] Referral ID Status Reason Start Date Expiration Date Visits Requested Visits Authorized [id number] Authorized Auto-Generat ed Referral 3 10/07/2024 1 1 [facility] for referral (narrative)* Diagnostic Procedure Only (Routine) - Pending Review Specialty Diagnoses / Procedures Referred By Star t Referred To Contact [facility] Diagnoses Encounter for screening mammogram for breast cancer Procedures SONIA SCREENING SCREENING MAMMOGRAPHY BI 2-VIEW BREAST INC CAD Ez Solitario MD [facility] [place] [address] [facility] [address] [place] [address] Referral ID Status Reason Start Date Expiration Date Visits Requested Visits Authorized [id number] Pending Review Auto-Generat ed Referral 10/23/2023 11/21/2024 1 1 [facility] for referral (narrative)* Diagnostic Procedure Only (Routine) - Closed Specialty Diagnoses / Procedures Referred By Contac t Referred To Contact [facility] Diagnoses Left leg pain Procedures XR HIP GENERAL 3V PELV/AP/LAT LEFT RADEX HIP UNILATERAL WITH PELVIS 2-3 VIEWS Radha Bryant APRN.HYDROELECTRIC PRODUCTION TECHNICIAN [address] [place] [address] [place] [address] Referral ID Status Reason Start Date Expiration Date V isits Requested Visits Authorized [id number] Closed Auto-Generate d Referral 08/20/2024 09/19/2025 1 1 * Diagnostic Procedure Only (Routine) - Closed Specialty Diagnoses / Procedures Referred By Contac t Referred To Contact [facility] Diagnoses Left leg pain Procedures XR LUMBAR PARS DEFECT 4V AP/LAT/BOTH OBL RADEX SPINE LUMBOSACRAL MINIMUM 4 VIEWS Radha Bryant APRN.CNP [facility] [place] [address] [place] [address] Referral ID Status Reason Start Date Expiration Date V isits Requested Visits Authorized [id number] Closed Auto-Generate d Referral 08/20/2024 09/19/2025 1 1 [facility] for referral (narrative)* Diagnostic Procedure Only (Routine) - New Request Specialty Diagnoses / Procedures Referred By Star t Referred To Contact [facility] Diagnoses Encounter for screening mammogram for breast cancer Procedures SONIA SCREENING W GERMAN SCREENING DIGITAL BREAST TOMOSYNTHESIS BI SCREENING MAMMOGRAPHY BI 2-VIEW BREAST INC CAD Ez Solitario MD [address] [place] [address] [facility] [address] [place] [address] Referral ID Status Reason Start Date Expiration Date Visits Requested Visits Authorized [id number] New Request Auto-Generat ed Referral 10/30/2025 1 1 [facility] for referral (narrative)No reason for referral [facility] Work Phone: Reason for visit Narrative* Diagnostic Procedure Only (Routine) - Closed Specialty Diagnoses / Procedures Referred By Contac t Referred To Contact [facility] Diagnoses Left leg pain Procedures XR HIP GENERAL 3V PELV/AP/LAT LEFT RADEX HIP UNILATERAL WITH PELVIS 2-3 VIEWS Radha Bryant APRN.HYDROELECTRIC PRODUCTION TECHNICIAN [address] [place] [address] [place] [address] Referral ID Status Reason Start Date Expiration Date V isits Requested Visits Authorized [id number] Closed Auto-Generate d Referral 08/20/2024 09/19/2025 1 1 [facility] for visit Narrative* Diagnostic Procedure Only (Routine) - Closed Specialty Diagnoses / Procedures Referred By Contac t Referred To Contact [facility] Diagnoses Asymptomatic menopause Procedures DXA-AXIAL SKELETON DXA BONE DENSITY STUDY / SITES AXIAL Lauren Adame PA-C [address] [place] [address] Phone: tel: fax: [place] [address] Referral ID Status Reason Start Date Expiration Date V isits Requested Visits Authorized [id number] Closed Auto-Generate d Referral 01/11/2025 02/10/2026 1 1 [facility] for visit Narrative* Diagnostic Procedure Only (Routine) - Closed Specialty Diagnoses / Procedures Referred By Contac t Referred To Contact [facility] Diagnoses Encounter for screening mammogram for breast cancer Procedures SONIA SCREENING W GERMAN SCREENING DIGITAL BREAST TOMOSYNTHESIS BI SCREENING MAMMOGRAPHY BI 2-VIEW BREAST INC CAD Ez Solitario MD [address] [place] [id number] Phone: tel: fax: [facility] [address] [place] [address] Referral ID Status Reason Start Date Expiration Date V isits Requested Visits Authorized [id number] Closed Auto-Generate d Referral 09/30/2024 10/30/2025 1 1 [facility] Summary Purpose Family History No Family History Records Found Relationship Condition Age at Onset Recorded Date/T sushil Unknown Family History?No pe rtinent history Unknown July 20, 2016 5:37pm Relationship Condition Age at Onset Recorded Date/T sushil father Coronary artery disease Unknown mother Coronary artery disease Unknown sister Hypertension Unknown Advance Directives No Advanced Directives Records FoundDocuments on File Type Date Recorded Patient Rehab Specialist Expl anation Advance Directive(s) 02/20/2016 9:06 AM Advance Directive(s) 02/17/2016 12:59 PM Documents on File Type Date Recorded Patient Rehab Specialist Expl anation Advance Directive(s) 02/20/2016 9:06 AM Advance Directive(s) 02/17/2016 12:59 PM Advance Directive Response Recorded Date/ Time Advance Directives No July 7:00pm Living Will Yes July 20 7:00pm Power of Ornamental Metal Erector Apprentice Yes July 20, 2016 7:00pm Advance Directive Response Recorded Date/ Time Advance Directives No July 7:00pm Living Will Yes July 28, 2023 9:48am Power of Ornamental Metal Erector Apprentice Yes July 9:48am Name of Medical Power of Ornamental Metal Erector Apprentice ? July 28, 2023 9:48am Advance Directive Response Recorded Date/ Time Advance Directives No July 7:00pm Living Will No August 01, 2023 4:58pm Power of Ornamental Metal Erector Apprentice No July 4:58pm Name of Medical Power of Ornamental Metal Erector Apprentice ? July 28, 2023 9:48am Advance Directive Response Recorded Date/ Time Name of Medical Power of Ornamental Metal Erector Apprentice Naima Delacruz August 01, 2023 11:02pm Advance Directives No July 7:00pm Living Will Yes August 01, 2023 11:02pm Power of Ornamental Metal Erector Apprentice Yes July 11:02pm Name of Medical Power of Ornamental Metal Erector Apprentice ? July 28, 2023 9:48am Advance Directive Response Recorded Date/ Time Do you have a Healthcare Power of Ornamental Metal Erector Apprentice? No July 07, 2025 9:34am Advance Directives No July 7:00pm Advance Directive Response Recorded Date/ Time Do you have a Healthcare Power of Ornamental Metal Erector Apprentice? Yes July 07, 2025 12:52pm Name of Medical Power of Ornamental Metal Erector Apprentice Moo Velez July 07, 2025 12:52pm Advance Directives No July 7:00pm Reason for Referral Specialty Diagnoses / Procedures Referred By Contac t Referred To Contact General Surgery Diagnoses Colon cancer screening Procedures CONSULT TO GENERAL SURGERY OFFICE/OUTPATIENT [facility] 60-74 MINUTES Ez Solitario MD [address] [place] [address] Referral ID Status Reason Start Date Expiration Date Visits Requested Visits Authorized [id number] Authorized PCP Requested Referral 02/07/2022 02/07/2023 1 1 Specialty Diagnoses / Procedures Referred By Contac t Referred To Contact Diagnoses Vaginal discharge Procedures CONSULT TO PYROTECHNIST OFFICE/OUTPATIENT [facility] 60-74 MINUTES Ez Solitario MD [address] [place] [address] Referral ID Status Reason Start Date Expiration Date Visits Requested Visits Authorized [id number] Authorized PCP Requested Referral Auto-Generate d Referral 09/25/2023 09/24/2024 1 1 Specialty Diagnoses / Procedures Referred By Contac t Referred To Contact General Surgery Diagnoses Iron deficiency anemia, unspecified iron deficiency anemia type Procedures CONSULT TO GENERAL SURGERY OFFICE/OUTPATIENT [facility] 60-74 MINUTES Ez Solitario MD [address] [place] [address] Referral ID Status Reason Start Date Expiration Date Visits Requested Visits Authorized [id number] Authorized PCP Requested Referral 10/03/2024 1 1 Specialty Diagnoses / Procedures Referred By Contac t Referred To Contact [facility] Diagnoses Acute midline low back pain without sciatica Procedures CONSULT TO PHYSICAL THERAPY PHYSICAL THERAPY EVALUATION [facility] 45 MINS Radha Bryant APRN.HYDROELECTRIC PRODUCTION TECHNICIAN [address] [place] [address] [facility] [address] [address] Referral ID Status Reason Start Date Expiration Date Visits Requested Visits Authorized [id number] Authorized PCP Requested Referral Auto-Generate d Referral [...] section and content) DATE CREATED AUTHOR 02/18/2021 [facility] DATE CREATED AUTHOR AUTHOR'S ORGANIZ ATION 03/03/2024 [facility] ([place]) DATE CREATED AUTHOR AUTHOR'S ORGANIZ ATION 12/12/2024 [facility] nt DATE CREATED AUTHOR AUTHOR'S ORGANIZ ATION 09/22/2025 [facility] DATE CREATED AUTHOR AUTHOR'S ORGANIZ ATION 09/29/2025 [facility] Source Comments (unrecognize d section and content) In the event this informatio n is protected by the Federal Confidentiality of Alcohol and Drug Abuse Patient Records regulations: The Federal rules restrict any use of the information to criminally investigate or prosecute any alcohol or drug abuse patient.[facility] the event this information is protected by the Federal Confidentiality of Alcohol and Drug Abuse Patient Records regulations: The Federal rules restrict any use of the information to criminally investigate or prosecute any alcohol or drug abuse patient.[facility] HospitalIn the event this information is protected by the Federal Confidentiality of Alcohol and Drug Abuse Patient Records regulations: The Federal rules restrict any use of the information to criminally investigate or prosecute any alcohol or drug abuse patient.[facility] HospitalIn the event this information is protected by the Federal Confidentiality of Alcohol and Drug Abuse Patient Records regulations: The Federal rules restrict any use of the information to criminally investigate or prosecute any alcohol or drug abuse patient.[facility] HospitalIn the event this information is protected by the Federal Confidentiality of Alcohol and Drug Abuse Patient Records regulations: The Federal rules restrict any use of the information to criminally investigate or prosecute any alcohol or drug abuse patient.[facility] HospitalIn the event this information is protected by the Federal Confidentiality of Alcohol and Drug Abuse Patient Records regulations: The Federal rules restrict any use of the information to criminally investigate or prosecute any alcohol or drug abuse patient.[facility] HospitalIn the event this information is protected by the Federal Confidentiality of Alcohol and Drug Abuse Patient Records regulations: The Federal rules restrict any use of the information to criminally investigate or prosecute any alcohol or drug abuse patient.[facility] HospitalIn the event this information is protected by the Federal Confidentiality of Alcohol and Drug Abuse Patient Records regulations: The Federal rules restrict any use of the information to criminally investigate or prosecute any alcohol or drug abuse patient.[facility] HospitalIn the event this information is protected by the Federal Confidentiality of Alcohol and Drug Abuse Patient Records regulations: The Federal rules restrict any use of the information to criminally investigate or prosecute any alcohol or drug abuse patient.[facility] HospitalIn the event this information is protected by the Federal Confidentiality of Alcohol and Drug Abuse Patient Records regulations: The Federal rules restrict any use of the information to criminally investigate or prosecute any alcohol or drug abuse patient.[facility] HospitalIn the event this information is protected by the Federal Confidentiality of Alcohol and Drug Abuse Patient Records regulations: The Federal rules restrict any use of the information to criminally investigate or prosecute any alcohol or drug abuse patient.[facility] HospitalIn the event this information is protected by the Federal Confidentiality of Alcohol and Drug Abuse Patient Records regulations: The Federal rules restrict any use of the information to criminally investigate or prosecute any alcohol or drug abuse patient.[facility] HospitalIn the event this information is protected by the Federal Confidentiality of Alcohol and Drug Abuse Patient Records regulations: The Federal rules restrict any use of the information to criminally investigate or prosecute any alcohol or drug abuse patient.[facility] HospitalIn the event this information is protected by the Federal Confidentiality of Alcohol and Drug Abuse Patient Records regulations: The Federal rules restrict any use of the information to criminally investigate or prosecute any alcohol or drug abuse patient.[facility] HospitalIn the event this information is protected by the Federal Confidentiality of Alcohol and Drug Abuse Patient Records regulations: The Federal rules restrict any use of the information to criminally investigate or prosecute any alcohol or drug abuse patient.[facility] HospitalIn the event this information is protected by the Federal Confidentiality of Alcohol and Drug Abuse Patient Records regulations: The Federal rules restrict any use of the information to criminally investigate or prosecute any alcohol or drug abuse patient.[facility] HospitalIn the event this information is protected by the Federal Confidentiality of Alcohol and Drug Abuse Patient Records regulations: The Federal rules restrict any use of the information to criminally investigate or prosecute any alcohol or drug abuse patient.[facility] HospitalIn the event this information is protected by the Federal Confidentiality of Alcohol and Drug Abuse Patient Records regulations: The Federal rules restrict any use of the information to criminally investigate or prosecute any alcohol or drug abuse patient.[facility] HospitalIn the event this information is protected by the Federal Confidentiality of Alcohol and Drug Abuse Patient Records regulations: The Federal rules restrict any use of the information to criminally investigate or prosecute any alcohol or drug abuse patient.[facility] HospitalIn the event this information is protected by the Federal Confidentiality of Alcohol and Drug Abuse Patient Records regulations: The Federal rules restrict any use of the information to criminally investigate or prosecute any alcohol or drug abuse patient.[facility] HospitalIn the event this information is protected by the Federal Confidentiality of Alcohol and Drug Abuse Patient Records regulations: The Federal rules restrict any use of the information to criminally investigate or prosecute any alcohol or drug abuse patient.[facility] HospitalIn the event this information is protected by the Federal Confidentiality of Alcohol and Drug Abuse Patient Records regulations: The Federal rules restrict any use of the information to criminally investigate or prosecute any alcohol or drug abuse patient.[facility] HospitalIn the event this information is protected by the Federal Confidentiality of Alcohol and Drug Abuse Patient Records regulations: The Federal rules restrict any use of the information to criminally investigate or prosecute any alcohol or drug abuse patient.[facility] HospitalIn the event this information is protected by the Federal Confidentiality of Alcohol and Drug Abuse Patient Records regulations: The Federal rules restrict any use of the information to criminally investigate or prosecute any alcohol or drug abuse patient.[facility] HospitalIn the event this information is protected by the Federal Confidentiality of Alcohol and Drug Abuse Patient Records regulations: The Federal rules restrict any use of the information to criminally investigate or prosecute any alcohol or drug abuse patient.[facility] HospitalIn the event this information is protected by the Federal Confidentiality of Alcohol and Drug Abuse Patient Records regulations: The Federal rules restrict any use of the information to criminally investigate or prosecute any alcohol or drug abuse patient.[facility] HospitalIn the event this information is protected by the Federal Confidentiality of Alcohol and Drug Abuse Patient Records regulations: The Federal rules restrict any use of the information to criminally investigate or prosecute any alcohol or drug abuse patient.[facility] HospitalIn the event this information is protected by the Federal Confidentiality of Alcohol and Drug Abuse Patient Records regulations: The Federal rules restrict any use of the information to criminally investigate or prosecute any alcohol or drug abuse patient.[facility] HospitalIn the event this information is protected by the Federal Confidentiality of Alcohol and Drug Abuse Patient Records regulations: The Federal rules restrict any use of the information to criminally investigate or prosecute any alcohol or drug abuse patient.[facility] HospitalIn the event this information is protected by the Federal Confidentiality of Alcohol and Drug Abuse Patient Records regulations: The Federal rules restrict any use of the information to criminally investigate or prosecute any alcohol or drug abuse patient.[facility] HospitalIn the event this information is protected by the Federal Confidentiality of Alcohol and Drug Abuse Patient Records regulations: The Federal rules restrict any use of the information to criminally investigate or prosecute any alcohol or drug abuse patient.[facility] HospitalIn the event this information is protected by the Federal Confidentiality of Alcohol and Drug Abuse Patient Records regulations: The Federal rules restrict any use of the information to criminally investigate or prosecute any alcohol or drug abuse patient.[facility] HospitalIn the event this information is protected by the Federal Confidentiality of Alcohol and Drug Abuse Patient Records regulations: The Federal rules restrict any use of the information to criminally investigate or prosecute any alcohol or drug abuse patient.[facility] HospitalIn the event this information is protected by the Federal Confidentiality of Alcohol and Drug Abuse Patient Records regulations: The Federal rules restrict any use of the information to criminally investigate or prosecute any alcohol or drug abuse patient.[facility] HospitalIn the event this information is protected by the Federal Confidentiality of Alcohol and Drug Abuse Patient Records regulations: The Federal rules restrict any use of the information to criminally investigate or prosecute any alcohol or drug abuse patient.[facility] HospitalIn the event this information is protected by the Federal Confidentiality of Alcohol and Drug Abuse Patient Records regulations: The Federal rules restrict any use of the information to criminally investigate or prosecute any alcohol or drug abuse patient.[facility] HospitalIn the event this information is protected by the Federal Confidentiality of Alcohol and Drug Abuse Patient Records regulations: The Federal rules restrict any use of the information to criminally investigate or prosecute any alcohol or drug abuse patient.[facility] HospitalIn the event this information is protected by the Federal Confidentiality of Alcohol and Drug Abuse Patient Records regulations: The Federal rules restrict any use of the information to criminally investigate or prosecute any alcohol or drug abuse patient.[facility] HospitalIn the event this information is protected by the Federal Confidentiality of Alcohol and Drug Abuse Patient Records regulations: The Federal rules restrict any use of the information to criminally investigate or prosecute any alcohol or drug abuse patient.[facility] HospitalIn the event this information is protected by the Federal Confidentiality of Alcohol and Drug Abuse Patient Records regulations: The Federal rules restrict any use of the information to criminally investigate or prosecute any alcohol or drug abuse patient.[facility] HospitalIn the event this information is protected by the Federal Confidentiality of Alcohol and Drug Abuse Patient Records regulations: The Federal rules restrict any use of the information to criminally investigate or prosecute any alcohol or drug abuse patient.[facility] HospitalIn the event this information is protected by the Federal Confidentiality of Alcohol and Drug Abuse Patient Records regulations: The Federal rules restrict any use of the information to criminally investigate or prosecute any alcohol or drug abuse patient.[facility] HospitalIn the event this information is protected by the Federal Confidentiality of Alcohol and Drug Abuse Patient Records regulations: The Federal rules restrict any use of the information to criminally investigate or prosecute any alcohol or drug abuse patient.[facility] HospitalIn the event this information is protected by the Federal Confidentiality of Alcohol and Drug Abuse Patient Records regulations: The Federal rules restrict any use of the information to criminally investigate or prosecute any alcohol or drug abuse patient.[facility] HospitalIn the event this information is protected by the Federal Confidentiality of Alcohol and Drug Abuse Patient Records regulations: The Federal rules restrict any use of the information to criminally investigate or prosecute any alcohol or drug abuse patient.[facility] HospitalIn the event this information is protected by the Federal Confidentiality of Alcohol and Drug Abuse Patient Records regulations: The Federal rules restrict any use of the information to criminally investigate or prosecute any alcohol or drug abuse patient.[facility] HospitalIn the event this information is protected by the Federal Confidentiality of Alcohol and Drug Abuse Patient Records regulations: The Federal rules restrict any use of the information to criminally investigate or prosecute any alcohol or drug abuse patient.[facility] HospitalIn the event this information is protected by the Federal Confidentiality of Alcohol and Drug Abuse Patient Records regulations: The Federal rules restrict any use of the information to criminally investigate or prosecute any alcohol or drug abuse patient.[facility] HospitalIn the event this information is protected by the Federal Confidentiality of Alcohol and Drug Abuse Patient Records regulations: The Federal rules restrict any use of the information to criminally investigate or prosecute any alcohol or drug abuse patient.[facility] HospitalIn the event this information is protected by the Federal Confidentiality of Alcohol and Drug Abuse Patient Records regulations: The Federal rules restrict any use of the information to criminally investigate or prosecute any alcohol or drug abuse patient.[facility] HospitalIn the event this information is protected by the Federal Confidentiality of Alcohol and Drug Abuse Patient Records regulations: The Federal rules restrict any use of the information to criminally investigate or prosecute any alcohol or drug abuse patient.[facility] HospitalIn the event this information is protected by the Federal Confidentiality of Alcohol and Drug Abuse Patient Records regulations: The Federal rules restrict any use of the information to criminally investigate or prosecute any alcohol or drug abuse patient.[facility] HospitalIn the event this information is protected by the Federal Confidentiality of Alcohol and Drug Abuse Patient Records regulations: The Federal rules restrict any use of the information to criminally investigate or prosecute any alcohol or drug abuse patient.[facility] HospitalIn the event this information is protected by the Federal Confidentiality of Alcohol and Drug Abuse Patient Records regulations: The Federal rules restrict any use of the information to criminally investigate or prosecute any alcohol or drug abuse patient.[facility] HospitalIn the event this information is protected by the Federal Confidentiality of Alcohol and Drug Abuse Patient Records regulations: The Federal rules restrict any use of the information to criminally investigate or prosecute any alcohol or drug abuse patient.[facility] HospitalIn the event this information is protected by the Federal Confidentiality of Alcohol and Drug Abuse Patient Records regulations: The Federal rules restrict any use of the information to criminally investigate or prosecute any alcohol or drug abuse patient.[facility] HospitalIn the event this information is protected by the Federal Confidentiality of Alcohol and Drug Abuse Patient Records regulations: The Federal rules restrict any use of the information to criminally investigate or prosecute any alcohol or drug abuse patient.[facility] HospitalIn the event this information is protected by the Federal Confidentiality of Alcohol and Drug Abuse Patient Records regulations: The Federal rules restrict any use of the information to criminally investigate or prosecute any alcohol or drug abuse patient.[facility] HospitalIn the event this information is protected by the Federal Confidentiality of Alcohol and Drug Abuse Patient Records regulations: The Federal rules restrict any use of the information to criminally investigate or prosecute any alcohol or drug abuse patient.[facility] HospitalIn the event this information is protected by the Federal Confidentiality of Alcohol and Drug Abuse Patient Records regulations: The Federal rules restrict any use of the information to criminally investigate or prosecute any alcohol or drug abuse patient.[facility] HospitalIn the event this information is protected by the Federal Confidentiality of Alcohol and Drug Abuse Patient Records regulations: The Federal rules restrict any use of the information to criminally investigate or prosecute any alcohol or drug abuse patient.[facility] HospitalIn the event this information is protected by the Federal Confidentiality of Alcohol and Drug Abuse Patient Records regulations: The Federal rules restrict any use of the information to criminally investigate or prosecute any alcohol or drug abuse patient.[facility] HospitalIn the event this information is protected by the Federal Confidentiality of Alcohol and Drug Abuse Patient Records regulations: The Federal rules restrict any use of the information to criminally investigate or prosecute any alcohol or drug abuse patient.[facility] HospitalIn the event this information is protected by the Federal Confidentiality of Alcohol and Drug Abuse Patient Records regulations: The Federal rules restrict any use of the information to criminally investigate or prosecute any alcohol or drug abuse patient.[facility] HospitalIn the event this information is protected by the Federal Confidentiality of Alcohol and Drug Abuse Patient Records regulations: The Federal rules restrict any use of the information to criminally investigate or prosecute any alcohol or drug abuse patient.[facility] HospitalIn the event this information is protected by the Federal Confidentiality of Alcohol and Drug Abuse Patient Records regulations: The Federal rules restrict any use of the information to criminally investigate or prosecute any alcohol or drug abuse patient.[facility] HospitalIn the event this information is protected by the Federal Confidentiality of Alcohol and Drug Abuse Patient Records regulations: The Federal rules restrict any use of the information to criminally investigate or prosecute any alcohol or drug abuse patient.[facility] HospitalIn the event this information is protected by the Federal Confidentiality of Alcohol and Drug Abuse Patient Records regulations: The Federal rules restrict any use of the information to criminally investigate or prosecute any alcohol or drug abuse patient.[facility] HospitalIn the event this information is protected by the Federal Confidentiality of Alcohol and Drug Abuse Patient Records regulations: The Federal rules restrict any use of the information to criminally investigate or prosecute any alcohol or drug abuse patient.[facility] HospitalIn the event this information is protected by the Federal Confidentiality of Alcohol and Drug Abuse Patient Records regulations: The Federal rules restrict any use of the information to criminally investigate or prosecute any alcohol or drug abuse patient.[facility] Reason for Visit (unrecogniz ed section [...] disease driving eval gold dasia Procedures NEW RS OT COMM REINTEGRATION Gold Colon PA-C [address] [place] [address] Mary You OT/L Referral ID Status Reason Start Date Expiration Date V isits Requested Visits Authorized [id number] Authorized 11/18/2022 11/17/2023 99 99 Reason Comments Outside [id number] Ordered Imaging Reason Comments Consult General Surgery [...] type Procedures CONSULT TO GENERAL SURGERY OFFICE/OUTPATIENT [facility] 60-74 MINUTES Ez Solitario MD [address] [place] [id number] Referral ID Status Reason Start Date Expiration Date V isits Requested Visits Authorized [id number] Closed PCP Requested Referral 10/04/2023 10/03/2024 1 [...] CONSULT TO PHYSICAL THERAPY PHYSICAL THERAPY EVALUATION [facility] 45 MINS Radha Bryant APRN.HYDROELECTRIC PRODUCTION TECHNICIAN [address] [place] [address] Meño Phillip, PT [address] [place] [address] Referral ID Status Reason Start Date Expiration Date Visits Requested Visits Authorized [id number] Authorized PCP Requested Referral Auto-Generate d Referral [...] Comments Abstract Neurology OV Reason Comments Abstract [facility] admission Care Teams (unrecognized sec tion and content) Machine Bander And Cell[employer] Helper Relationship Specialty Start Date End Date Ez Solitario MD [address] [place] [id number] PCP - General Family Practice 02/07/16 Machine Bander And Cellophaner Helper Relationship Specialty Start Date End Date Ez Solitario MD [address] [place] [id number] PCP - General Family Practice 02/07/16 Machine Bander And Cellophaner Helper Relationship Specialty Start Date End Date Ez Solitario MD [address] [place] [address] PCP - General Family Practice 02/07/16 Machine Bander And Cellophaner Helper Relationship Specialty Start Date End Date Ez Solitario MD [address] [place] [address] [id number] PCP - General Family Practice 02/07/16 Machine Bander And Cell[employer]er Helper Relationship Specialty Start Date End Date Ez Solitario MD [address] [place] [id number] PCP - General Family Practice 02/07/16 Machine Bander And Cell[employer]er Helper Relationship Specialty Start Date End Date Ez Solitario MD [address] [place] [id number] PCP - General Family Medicine 02/07/16 Machine Bander And Cellophaner Helper Relationship Specialty Start Date End Date Ez Solitario MD [address] [facility] [place] [address] PCP - General Family Medicine 02/07/16 Machine Bander And Cellophaner Helper Relationship Specialty Start Date End Date Ez Solitario MD [address] [facility] [address] PCP - General Family Medicine 02/07/16 Team Status: Active Member Role Status Dates Dr. Ez Solitario MD Family Provider Active Dr. Ez Solitario MD Primary Care Provider Active Team Status: Inactive Member Role Status Dates Dr. Ez Solitario MD Primary Care Provider Active Dr. Elio Serrato MD Attending Provider, Referring Pro vider Active Machine B[employer] And Cell[employer] Helper Relationship Specialty Start Date End Date Ez Solitario MD [address] [facility] [place] [address] PCP - General Family Medicine 02/07/16 Machine Bander And Cellophaner Helper Relationship Specialty Start Date End Date Ez Solitario MD [address] [facility] [address] PCP - General Family Medicine 02/07/16 Machine Bander And Cellophaner Helper Relationship Specialty Start Date End Date Ez Solitario MD [address] [facility] [place] [address] PCP - General Family Medicine 02/07/16 Machine Bander And Cellophaner Helper Relationship Specialty Start Date End Date Ez Solitario MD [address] [facility] [place] [address] PCP - General Family Medicine 02/07/16 Machine Bander And Cellophaner Helper Relationship Specialty Start Date End Date Ez Solitario MD [address] [facility] [place] [address] PCP - General Family Medicine 02/07/16 Machine Bander And Cell[employer]er Helper Relationship Specialty Start Date End Date Ez Solitario MD [address] [place] [address] PCP - General Family Medicine 02/07/16 Machine Bander And Cell[employer] Helper Relationship Specialty Start Date End Date Ez Solitario MD [address] [place] [address] PCP - General Family Medicine 02/07/16 Machine Bander And Cell[employer] Helper Relationship Specialty Start Date End Date Ez Solitario MD [address] [place] [address] PCP - General Family Medicine 02/07/16 Machine Bander And Cellophaner Helper Relationship Specialty Start Date End Date Ez Solitario MD [address] [place] [address] PCP - General Family Medicine 02/07/16 Machine Bander And Cellophaner Helper Relationship Specialty Start Date End Date Ez Solitario MD [address] [place] [address] PCP - General Family Medicine 02/07/16 Machine Bander And Cell[employer] Helper Relationship Specialty Start Date End Date Ez Solitario MD [address] [place] [address] PCP - General Family Medicine 02/07/16 Machine Bander And Cell[employer] Helper Relationship Specialty Start Date End Date Ez Solitario MD [address] [place] [address] PCP - General Family Medicine 02/07/16 Team Status: Inactive Member Role Status Dates Dr. Ez Solitario MD Primary Care Provider Active Dr. Milton Iglesias MD Emergency Provider Active Team Status: Active Member Role Status Dates Dr. Ez Solitario MD Primary Care Provider Active Dr. Vladislav Crawford DO Emergency Provider Active Dr. Esme Andre MD Attending [facility], Referring Provider, Other Provider Active Team Status: Active Member Role Status Dates Dr. Ez Solitario MD Primary Care Provider Active Dr. Vladislav Crawford DO Emergency Provider Active Dr. Esme Andre MD Attending Provider, Referring Provider Active Machine [employer] And Cell[employer] Helper Relationship Specialty Start Date End Date Ez Solitario MD [address] [place] [address] PCP - General Family Medicine 02/07/16 Team [...] Iglesias MD Attending Provider, Emergency Provider Active Machine Bander And Cell[employer] Helper Relationship Specialty Start Date End Date Ez Solitario MD [address] [place] [address] PCP - General Family Medicine 02/07/16 Machine Bander And Cell[employer] Helper Relationship Specialty Start Date End Date Ez Solitario MD [address] [place] [address] PCP - General Family Medicine 02/07/16 Machine Bander And Cell[employer] Helper Relationship Specialty Start Date End Date Ez Solitario MD [address] [place] [address] PCP - General Family Medicine 02/07/16 Machine Bander And Cell[employer] Helper Relationship Specialty Start Date End Date Ez Solitario MD [address] [place] [address] PCP - General Family Medicine 02/07/16 Machine Bander And Cellophan[employer] Helper Relationship Specialty Start Date End Date Ez Solitario MD [address] [place] [address] PCP - General Family Medicine 02/07/16 Machine Bander And Cell[employer]er Helper Relationship Specialty Start Date End Date Ez Solitario MD [address] [place] [address] PCP - General Family Medicine 02/07/16 Machine Bander And Cell[employer] Helper Relationship Specialty Start Date End Date Ez Solitario MD [address] [place] [address] PCP - General Family Medicine 02/07/16 Machine Bander And Cellophaner Helper Relationship Specialty Start Date End Date Ez Solitario MD [address] [place] [address] PCP - General Family Medicine 02/07/16 Machine Bander And Cell[employer] Helper Relationship Specialty Start Date End Date Ez Solitario MD [address] [place] [address] PCP - General Family Medicine 02/07/16 Machine Bander And Cellophaner Helper Relationship Specialty Start Date End Date Ez Solitario MD [address] [place] [address] PCP - General Family Medicine 02/07/16 Machine Bander And Cellophaner Helper Relationship Specialty Start Date End Date Ez Solitario MD [address] [place] [address] PCP - General Family Medicine 02/07/16 Machine Bander And Cellophaner Helper Relationship Specialty Start Date End Date Ez Solitario MD [address] [place] [address] PCP - General Family Medicine 02/07/16 Machine Bander And Cellophaner Helper Relationship Specialty Start Date End Date Ez Solitario MD [address] [place] [address] PCP - General Family Medicine 02/07/16 Machine Bander And Cellophaner Helper Relationship Specialty Start Date End Date Ez oSlitario MD [address] [place] [address] PCP - General Family Medicine 02/07/16 Machine Bander And Cellophaner Helper Relationship Specialty Start Date End Date Ez Solitario MD [address] [place] [address] PCP - General Family Medicine 02/07/16 Machine Bander And Cellophaner Helper Relationship Specialty Start Date End Date Ez Solitario MD [address] [place] [address] PCP - General Family Medicine 02/07/16 Machine Bander And Cellophaner Helper Relationship Specialty Start Date End Date Ez Solitario MD [address] [place] [address] PCP - General Family Medicine 02/07/16 Machine Bander And Cellophaner Helper Relationship Specialty Start Date End Date Ez Solitario MD [address] [place] [address] PCP - General Family Medicine 02/07/16 Machine Bander And Cellophaner Helper Relationship Specialty Start Date End Date Ez Solitario MD [address] [place] [address] PCP - General Family Medicine 02/07/16 Machine Bander And Cell[employer] Helper Relationship Specialty Start Date End Date Ez Solitario MD [address] [place] [address] PCP - General Family Medicine 02/07/16 Radha Bryant APRN.HYDROELECTRIC PRODUCTION TECHNICIAN [address] [place] [address] [employer] Tender Family [facility] 10/24/24 Lauren Camacho PA-C [address] [place] [address] [employer] [facility] 10/24/24 Machine Bander And Cell[employer] Helper Relationship Specialty Start Date End Date Ez Solitario MD [address] [place] [address] PCP - General Family Medicine 02/07/16 Radha Bryant APRN.HYDROELECTRIC PRODUCTION TECHNICIAN [address] [place] [address] [employer] Machine Tender [facility] 10/24/24 Lauren Camacho PA-C [address] [place] [address] [employer] [facility] 10/24/24 Machine Bander And Cell[employer] Helper Relationship Specialty Start Date End Date Ez Solitario MD [address] [place] [address] PCP - General Family Medicine 02/07/16 Radha Bryant APRN.HYDROELECTRIC PRODUCTION TECHNICIAN [address] [place] [address] [employer] [facility] 10/24/24 Lauren Camacho PA-C [address] [place] [address] [employer] [facility] 10/24/24 Machine Bander And Cell[employer]er Helper Relationship Specialty Start Date End Date Ez Solitario MD [address] [place] [address] PCP - General Family Medicine 02/07/16 Radha rByant APRN.HYDROELECTRIC PRODUCTION TECHNICIAN [address] [place] [address] [employer] Machine [facility] 10/24/24 Lauren Camacho PA-C [address] [place] [address] [employer] Machine Tender Family [facility] 10/24/24 Machine Bander And Cellophaner Helper Relationship Specialty Start Date End Date Ez Solitario MD [address] [place] [address] PCP - General Family Medicine 02/07/16 Radha Bryant APRN.HYDROELECTRIC PRODUCTION TECHNICIAN [address] [place] [address] [employer] [facility] 10/24/24 Lauren Camacho PA-C [address] [place] [address] [employer] [facility] 10/24/24 Machine Bander And Cell[employer]er Helper Relationship Specialty Start Date End Date Ez Solitario MD [address] [place] [address] PCP - General Family Medicine 02/07/16 Radha Bryant APRN.HYDROELECTRIC PRODUCTION TECHNICIAN [address] [place] [address] [employer] [facility] 10/24/24 Lauren Camacho PA-C [address] [place] [address] [employer] Machine Tender Family [facility] 10/24/24 Machine Bander And Cell[employer]er Helper Relationship Specialty Start Date End Date Ez Solitario MD [address] [place] [address] PCP - General Family Medicine 02/07/16 Radha Bryant APRN.HYDROELECTRIC PRODUCTION TECHNICIAN [address] [place] [address] [employer] Machine Tender Family [facility] 10/24/24 Lauren Camacho PA-C [address] [place] [address] [facility] Machine Bander And Cell[employer]er Helper Relationship Specialty Start Date End Date Ez Solitario MD [address] [place] [address] PCP - General Family Medicine 02/07/16 Radha Bryant APRN.HYDROELECTRIC PRODUCTION TECHNICIAN [address] [place] [address] [facility] Family Medicine 10/24/24 Lauren Camacho PA-C [address] [place] [address] [employer] [facility] [facility] 10/24/24 Machine Bander And Cellophaner Helper Relationship Specialty Start Date End Date Ez Solitario MD [address] [place] [address] PCP - General Family Medicine 02/07/16 Radha Bryant APRN.HYDROELECTRIC PRODUCTION TECHNICIAN [address] [facility] [place] [address] [employer]er Machine Tender Family [facility] 10/24/24 Lauren Camacho PA-C [address] [facility] [place] [address] [employer] Machine Tender [facility] 10/24/24 Machine Bander And Cellophaner Helper Relationship Specialty Start Date End Date Ez Solitario MD [address] [place] [address] PCP - General Family Medicine 02/07/16 Radha Bryant, GENIE.HYDROELECTRIC PRODUCTION TECHNICIAN [address] [place] [address] [employer] [facility] 04/19/25 Lauren Camacho PA-C [address] [place] [address] [employer] [facility] 04/19/25 Machine Bander And Cellophaner Helper Relationship Specialty Start Date End Date Ez Solitario MD [address] [place] [address] PCP - General Family Medicine 02/07/16 Radha Bryant, GENIE.HYDROELECTRIC PRODUCTION TECHNICIAN [address] [place] [address] [employer] [facility] 04/19/25 Lauren Camacho PA-C [address] [facility] [place] [address] [employer] Machine Tender [facility] 04/19/25 Team Status: Active Member [...] Status: Active Member Role/Relationship Status Dates Dr. zE Solitario MD Primary Care Provider Active Start: [...] BE BASED ON THE PRIMARY CLINICAL RECORDS. [facility] [employer] [facility]. provides no warranty or guarantee of the accuracy or completeness of information in this document.
[2025-11-16 08:23] LABS: Hematocrit 29.0 % (37-47); Hemoglobin 9.6 g/dL (12.0-15.0); Mean Corp Hgb Conc 33.1 g/dL (32-36); Mean Corpuscular Volume 89.0 fL (81-99); Mean Platelet Vol. 11.5 fl (6.2-12.0); Platelet Count 207 K/mm3 (150-450); RBC Distribution Width CV 13.1 % (11.6-14.6); RBC Distribution Width SD 42.6 fl (35.1-43.9); Red Blood Count 3.26 M/mm3 (4.2-5.4); White Blood Count 6.4 K/mm3 (4.4-11.0)
[2025-11-16 08:37] LABS: Anion Gap 8 (7-18); BUN 24 mg/dL (4-19); BUN/Creat Ratio 19.8 RATIO (10-20); Calcium,Total 9.5 mg/dL (7.6-11.0); Carbon Dioxide 26.4 mmol/L (20.0-29.0); Chloride 103 mmol/L (96-106); Glucose 88 mg/dL (70-99); Potassium 4.2 mmol/L (3.5-5.1)
== END ==
LOC: OLS.SW 05:00
PROVIDERS: PCP Family Medicine; Visit Provider Internal Medicine
DX: G20.A1 Parkinson's disease without dyskinesia, without mention of fluctuations (principal)
CPT/HCPCS: 36415; 80048; 85027